=== PATIENT | female | born 1945 | race Caucasian/White ===

== ENCOUNTER → 2017-07-07 10:46 | Outpatient (CLI) | payer MEDICARE, SELFPAY ==
--- NOTE | 2017-07-07 11:10 | MRI_ITS ---
STUDY: MRI BRAIN WITHOUT CONTRAST REASON FOR EXAM: Female, 72 years old. TIA. Patient has headache. TECHNIQUE: Standardized multiplanar fat and water weighted pulse sequences were obtained. COMPARISON: Prior comparison studies are not available for review at this time. FINDINGS: There is mild cerebral atrophy with widening of the extra-axial spaces and ventricular dilatation. There are a limited number of small white matter hyperintensities, distributed throughout the deep white matter tracts of the cerebral hemispheres, consistent with mild chronic white matter ischemic changes. There is encephalomalacia within the right frontal lobe with associated abnormal signal within the cortex consistent with gliosis and sequela of old infarct. There is confluent periventricular hyperintensity cloaking the lateral ventricles, consistent with periventricular leukoaraiosis. There is no evidence for recent intracranial ischemia or other cause of cytotoxic edema on diffusion weighted imaging (DWI). Normal T2* images of the brain without demonstrated susceptibility artifact. There is no demonstrated hemosiderin stain. There are prominent perivascular spaces (PVS) involving the basal ganglia. Normal thalami. There is no extra-axial fluid accumulation. Normal flow voids within the major intracranial circulation suggesting patency by spin echo criteria. Normal sella turcica, pituitary gland, infundibular stalk, optic chiasm and hypothalamus. Normal tectal plate and pineal gland. Normal midbrain, parker and medulla. Normal cerebellum. Normal basal cisterns. Normal bilateral temporal bones. Normal bilateral internal auditory canals. There are bilateral ocular lens implants with otherwise normal intraorbital contents. There is mucoperiosteal inflammatory disease of the paranasal sinuses consistent with mild chronic sinusitis. Normal calvarium and skull base. Normal visualized soft tissue structures. Normal visualized upper cervical spine. MRI/Brain without Contrast IMPRESSION: 1. Involutional changes of the brain, as described above. 2. No MR evidence for acute infarct. 3. 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 Electronically Signed: Sun Garcia MD at 8:27 EST , Service support ,
--- NOTE | 2017-07-07 11:10 | MRI_ITS ---
STUDY: MRA OF THE HEAD WITHOUT CONTRAST REASON FOR EXAM: Female, 72 years old. TIA, headaches. TECHNIQUE: 3-D esrq-rj-[id number] (TOF) imaging was performed with MIPs. The study was performed unenhanced. COMPARISON: None. FINDINGS: Normal bilateral petrous carotid arteries. Normal right cavernous carotid artery with a normal supraclinoid bifurcation. Normal left cavernous carotid artery with a normal supraclinoid bifurcation. Normal right A1 segments of the anterior cerebral artery. Normal left A1 segments of the anterior cerebral artery. Normal intact anterior communicating artery (ACOM). Normal bilateral A2 segments of the anterior cerebral arteries. Normal right M1 and M2 segments of the middle cerebral arteries, with a normal M1 bifurcation. Normal left M1 and M2 segments of the middle cerebral arteries, with a normal M1 bifurcation. Normal right posterior communicating artery (PCOM). There is non-visualization of the left posterior communicating artery (PCOM). Normal bilateral vertebral arteries. Normal basilar artery with a normal basilar bifurcation. The visualized bilateral superior cerebellar (SCA) arteries are normal. Normal bilateral P1, P2 and visualized P3 segments of the posterior cerebral arteries. There is no demonstrated aneurysm of the [place]. There is no major vessel occlusion or hemodynamically significant stenosis. There is no demonstrated abnormality of the visualized brain. MRI/MRA Head ONLY without Contrast IMPRESSION: No evidence of significant steno-occlusive disease or aneurysm. Electronically Signed: Bg Pulido DO at 21:22 EST , Service support ,
== END ==
PROVIDERS: Family Provider Family Medicine; PCP Family Medicine; Visit Provider Psychiatry & Neurology Neurology
DX: Z86.73 Personal history of transient ischemic attack (TIA), and cerebral infarction without residual deficits (principal)
CPT/HCPCS: 70544; 70551

== ENCOUNTER → 2017-07-11 07:47 | Outpatient (CLI) | payer MEDICARE, SELFPAY ==
--- NOTE | 2017-07-11 07:56 | CDU_ITS ---
Reason For Study: TIA Rt. Velocities/BP Lt. Velocities/BP Prox CCA 59/12 cm/sec. Prox CCA 83/14 cm/sec. Mid CCA 52/14 cm/sec. Mid CCA 80/21 cm/sec. Dist CCA 62/15 cm/sec. Dist CCA 64/17 cm/sec. Prox ICA 70/22 cm/sec. Prox ICA 59/16 cm/sec. Mid ICA 80/29 cm/sec. Mid ICA 63/21 cm/sec. Dist ICA 75/23 cm/sec. Dist ICA 86/29 cm/sec. Rt. ICA/CCA = 1.53. Lt. ICA/CCA = 1.07. Prox ECA 113/17 cm/sec. Prox ECA 80/15 cm/sec. Rt. Vert. 56/16 cm/sec. Lt. Vert. 44/13 cm/sec. Right Extracranial There is intimal thickening but no significant atherosclerotic plaque noted in the right common carotid artery. There is heterogeneous, irregular atherosclerotic plaque noted in the right internal carotid artery. There is no significant atherosclerotic plaque noted in the right external carotid artery. Antegrade flow is noted in the right vertebral artery. Left Extracranial There is intimal thickening but no significant atherosclerotic plaque noted in the left common carotid artery. There is no significant atherosclerotic plaque noted in the left internal carotid artery. There is no significant atherosclerotic plaque noted in the left external carotid artery. Antegrade flow is noted in the left vertebral artery. Procedure Carotid Duplex [id number]. Exam performed in department. Interpretation Summary Mild (<50%) stenosis right extracranial internal carotid. No significant atherosclerotic plaque or stenosis noted in the left internal carotid artery. Flow within the vertebral arteries is antegrade bilaterally. Ordering Physician: Robin Morrell Referring Physician: Tami Chang Performed By: Felicia Harp, RDCS, RVT
--- NOTE | 2017-07-11 07:57 | ECHOCS_ITS ---
Reason For Study: TIA Procedure This was a 2D Doppler, Color Flow transthoracic echocardiogram. The study was technically difficult. Exam performed in department. Left Ventricle Normal LV size. Left ventricular systolic function is normal. The estimated ejection fraction is 65 %. No regional wall motion abnormalities noted. Right Ventricle Normal RV size. Normal systolic function. Atria Normal left atrium. Normal right atrium. Mitral Valve Normal mitral valve. Tricuspid Valve Normal tricuspid valve. Aortic Valve The aortic valve is not well visualized. Pulmonic Valve The pulmonic valve is not well visualized. Great Vessels Normal aortic root. The pulmonary artery is normal size. Normal inferior vena cava. Pericardium/Pleural No pericardial effusion. Medication 22 gauge I.V. with prn adaptor inserted into right arm. Diluted definity 3ml given slow IV push to enhance endocardial definition. Performed a rapid injection of agitated mix of 9 cc saline and 1cc air to assess for atrial septal defect. MMode/2D Measurements & Calculations LVIDd: 4.0 cm IVSd: 1.1 cm LVOT diam: 2.0 cm LVIDs: 2.7 cm LVPWd: 1.2 cm LVOT area: 3.0 cm2 RVDd: 3.0 cm FS: 31.8 % Ao root diam: 2.6 cm LAV(MOD-bp): 46.3 ml LA dimension: 3.1 cm LAV(MOD-bp) Indexed: 25.0 ml/m2 LA A4 area: 19.5 cm2 LAV(MOD-sp2): 35.3 ml LAV(MOD-sp4): 57.3 ml Time Measurements MV dec time: 0.20 sec Doppler Measurements & Calculations MV E max roshan: 74.5 cm/sec Lat Peak E' Roshan: 12.5 cm/sec Med Peak E' Roshan: 8.9 cm/sec MV A max roshan: 104.4 cm/sec E/E' lat: 6.0 E/E' med: 8.3 MV E/A: 0.71 MV V2 max: 108.6 cm/sec MV P1/2t max roshan: 79.4 cm/sec Ao V2 max: 126.0 cm/sec MV max P.7 mmHg MV P1/2t: 82.4 msec Ao max P.3 mmHg MV V2 mean: 49.4 cm/sec MV dec slope: 282.3 cm/sec2 Ao V2 mean: 88.1 cm/sec MV mean P.2 mmHg MVA(P1/2t): 2.7 cm2 Ao mean P.4 mmHg MV V2 VTI: 27.9 cm Ao V2 VTI: 30.0 cm MVA(VTI): 2.2 cm2 DANNY(I,D): 2.0 cm2 DANNY(V,D): 2.1 cm2 LV V1 max: 87.2 cm/sec SV(LVOT): 60.8 ml PA V2 max: 71.0 cm/sec LV V1 max P.0 mmHg LV V1 mean P.3 mmHg LV V1 mean: 50.5 cm/sec LV V1 VTI: 20.2 cm TR max roshan: 244.2 cm/sec TR max P.8 mmHg Interpretation Summary Normal LV size. Left ventricular systolic function is normal. The estimated ejection fraction is 65 %. No regional wall motion abnormalities noted. Structurally normal valves. Contrast injection was performed. Ordering Physician: Robin Morrell Referring Physician: Robin Morrell Performed By: Cristopher Quiñones RCS
== END ==
PROVIDERS: Family Provider Family Medicine; PCP Family Medicine; Visit Provider Psychiatry & Neurology Neurology
DX: Z86.73 Personal history of transient ischemic attack (TIA), and cerebral infarction without residual deficits (principal)
CPT/HCPCS: 93225; 93226; 93306; 93880; Q9957; A4216; C8929

== ENCOUNTER 2017-07-15 20:07 | Emergency (ER) | payer MEDICARE, SELFPAY ==
[2017-07-15 20:08] VITALS: BP 159/86; PULSE 102; RESP 16; TEMP 36.6; O2SAT 98; BMI 34.2
--- NOTE | 2017-07-15 20:13 | ED.RN ---
NO OLD EKG'S IN MUSE
[2017-07-15 20:14] VITALS: BP 161/79; PULSE 99; RESP 16; O2SAT 97
--- NOTE | 2017-07-15 20:33 | EKG12_ITS ---
Test Reason : CP Blood Pressure : / mmHG Vent. Rate : 095 BPM Atrial Rate : 095 BPM P-R Int : 130 ms QRS Dur : 092 ms QT Int : 376 ms P-R-T Axes : 041 049 036 degrees QTc Int : 472 ms Normal sinus rhythm Nonspecific ST segment abnormality Confirmed by LASHAY YOUNG, CHRISTIANO ([id number]), news editor JONATHAN LOZANO ([id number]) on 07/18/2017 1:13:39 PM Referred By: LAWSON Confirmed By:CHRISTIANO METZ MD
[2017-07-15 20:34] VITALS: O2SAT 97
--- NOTE | 2017-07-15 20:37 | RAD_ITS ---
STUDY: X-RAY CHEST REASON FOR EXAM: Female, 72 years old. Chest pain TECHNIQUE: Single AP portable view of the chest. COMPARISON: None. FINDINGS: The lungs are clear and expanded. There is no demonstrated pleural abnormality. Normal size heart. Normal mediastinum and maurice. Normal visualized pulmonary arteries. There is atherosclerotic calcification of the aortic arch with tortuosity. There are diffuse degenerative changes of the visualized thoracic spine. Normal visualized ribs, clavicles, and shoulders. There is no demonstrated abnormality of the visualized soft tissue structures of the upper abdomen. RAD/Chest 1 View (Portable) IMPRESSION: No acute cardiopulmonary findings. Electronically Signed: Ludmila Beasley MD at 21:19 EST , Service support ,
[2017-07-15 20:47] LABS: Absolute Lymphocyte Count 2.13 X10^3/ul (0.83-4.51); Absolute Neutrophil Count 3.2 X10^3/uL (2.0-7.7); Basophil# 0.02 X10^3/uL; Basophil% 0.3 % (0-1); Eosinophil# 0.12 X10^3/uL; Hematocrit 38.5 % (37-47); Lymphocyte # 2.13 X10^3/ul (4.0); Lymphocyte % 36.2 % (19-41); Mean Corp Hgb Conc 33.8 g/gl (32-36); Mean Corpuscular Hgb 29.5 pg (27.0-32.0); Mean Corpuscular Volume 87.5 fL (81-99); Mean Platelet Vol. 9.6 fl (6.2-12.0); Monocyte# 0.37 X10^3/uL; Monocyte% 6.3 % (0-10); Neutrophil # 3.22 X10^3/uL (2.7-7.7); Neutrophil % 54.9 % (47-70); Platelet Count 268 K/mm3 (150-450); RBC Distribution Width CV 15.4 % (11.6-14.6); RBC Distribution Width SD 49.3 fl (35.1-43.9); White Blood Count 5.9 K/mm3 (4.4-11.0)
[2017-07-15 20:48] LABS: POSITIVE COUNT NO; POSITIVE DIFFERENTIAL NO; POSITIVE MORPHOLOGY NO
[2017-07-15] MEDS: Aspirin 81 MG TAB.CHEW 324 MG PO (20:56)
[2017-07-15] MEDS: 0.9% Normal Saline 1,000 ML 150 ML IV (20:56)
[2017-07-15 21:03] LABS: Anion Gap 9 (5-15); BUN 11 mg/dL (7-18); Calcium,Total 8.5 mg/dL (8.5-10.1); Chloride 94 mmol/L (98-107); Creatinine, Serum 0.85 mg/dL (0.55-1.02); EST Glomerular Filtration Rate 70 mL/min (>60); Est Glom Filt Rate - Afr Amer 85 mL/min (>60); Estimated Creatinine Clearance 47.32 ml/min; Glucose 125 mg/dL (74-106); Potassium 3.2 mmol/L (3.5-5.1); Sodium Level 130 mmol/L (136-145)
--- NOTE | 2017-07-15 21:29 | ED.DCSUM_ITS ---
- ER Visit Summary Date of Service: 07/15/17 Chief Complaint: Cough and fever History of Present Illness: The patient is a [address] Chang. She reports that she has had a nonproductive cough for the past 2 days. She has had a temperature to 100.5?. She has a sore throat that is 1 out of 10 severity. Patient also reports that she has had continuous chest tightness for the past 2 days. It is 2 out of 10 at worst and 1 out of 10 currently. Is worsened by breathing. Is unchanged with exertion. Is relieved by nothing. She reports that she felt lightheaded at home and took her blood pressure and found it was elevated to 223/100. Physical Examination: Vitals: Stable. Afebrile. General: Well-nourished and well-developed. Head: Normocephalic atraumatic. Neck: Supple, no lymphadenopathy. No JVD. Nontender. Cardiovascular: Regular rate and rhythm. No murmurs. Respiratory: No respiratory distress. Clear to auscultation bilaterally. Abdominal: Soft, nontender, nondistended, normal bowel sounds. No guarding, rebound, or peritoneal signs. Back: Nontender. Extremities: Nontender, no edema. Skin: Normal color, no rash. Neurologic: Alert and oriented ?3. Cranial nerves II through XII are intact. Normal strength and sensation. Psych: Normal affect. Test Results: Chest x-ray is normal. EKG is sinus at [address] changes. There is no old EKG for comparison. Troponin is less than 0.02. Chem -7 is more for sodium 130, potassium 3.2, chloride 94, glucose 125. The patient is on hydrochlorothiazide. CBC is normal. Emergency Department Course and Treatment: Patient is resting comfortably and without complaint. Treatment Plan: She will be discharged instructions follow-up Dr. Taveras in 1 week if not improving. Return to the emergency department for any worsening symptoms. Disposition: To home in improved and stable condition. Impression: 1. URI. 2. Atypical chest pain. This note was generated with [employer] software. It may contain incorrect words, spelling, and punctuation that were not noted in review of the chart prior to signing ED Disposition - Plan for ED Patient: Disposition: Home or Assisted Living Chief Complaint: Chest Pain Instructions: ED Upper Resp Infec No Abx Tx Prescriptions: Benzonatate [Tessalon Perle] 200 mg PO TID PRN PRN #20 capsule PRN Reason: Cough Referrals: Tami Chang MD [Primary Care Provider] - 3-5 Days
[2017-07-15] MEDS: Benzonatate 100 MG Capsule 200 MG PO (21:40)
[2017-07-15 21:42] VITALS: BP 146/76
== END 2017-07-15 21:43 | disposition home or self-care (01) ==
LOC: ED 20:40
PROVIDERS: Emergency Provider Emergency Medicine; Family Provider Family Medicine; PCP Family Medicine
DX: J06.9 Acute upper respiratory infection, unspecified (principal); R07.89 Other chest pain; I10 Essential (primary) hypertension; Z86.73 Personal history of transient ischemic attack (TIA), and cerebral infarction without residual deficits; Z79.899 Other long term (current) drug therapy
CPT/HCPCS: 71045; 80048; 84484; 85025; 93005; 96360; 99285; J7030; A4216

== ENCOUNTER → 2017-08-01 10:41 | Outpatient (CLI) | payer MEDICARE, SELFPAY ==
[2017-08-01 12:37] LABS: Anion Gap 11 (5-15); BUN 11 mg/dL (7-18); BUN/Creat Ratio 11.7 RATIO (10-20); Calcium,Total 8.8 mg/dL (8.5-10.1); Chloride 98 mmol/L (98-107); Creatinine, Serum 0.94 mg/dL (0.55-1.02); EST Glomerular Filtration Rate 62 mL/min (>60); Est Glom Filt Rate - Afr Amer 75 mL/min (>60); Glucose 117 mg/dL (74-106); Potassium 3.5 mmol/L (3.5-5.1); Sodium Level 132 mmol/L (136-145)
[2017-08-01 15:27] LABS: Uric Acid 4.9 mg/dL (2.6-6.0)
== END ==
PROVIDERS: Family Provider Family Medicine; PCP Family Medicine; Visit Provider Family Medicine
DX: E87.6 Hypokalemia (principal)
CPT/HCPCS: 36415; 80048; 84550

== ENCOUNTER → 2017-08-03 09:01 | Outpatient (CLI) | payer MEDICARE, SELFPAY ==
[2017-08-03 10:24] LABS: Absolute Lymphocyte Count 1.38 X10^3/ul (0.83-4.51); Basophil# 0.04 X10^3/uL; Basophil% 0.6 % (0-1); Eosinophil# 0.08 X10^3/uL; Eosinophils% 1.2 % (0-5); Hematocrit 37.2 % (37-47); Hemoglobin 12.8 g/dl (12.0-15.0); Lymphocyte # 1.38 X10^3/ul (4.0); Mean Corp Hgb Conc 34.4 g/gl (32-36); Mean Corpuscular Hgb 30.2 pg (27.0-32.0); Mean Corpuscular Volume 87.7 fL (81-99); Monocyte# 0.44 X10^3/uL; Monocyte% 6.4 % (0-10); Neutrophil # 4.95 X10^3/uL (2.7-7.7); Neutrophil % 71.7 % (47-70); Platelet Count 353 K/mm3 (150-450); RBC Distribution Width CV 15.1 % (11.6-14.6); RBC Distribution Width SD 48.2 fl (35.1-43.9); Red Blood Count 4.24 M/mm3 (4.2-5.4); White Blood Count 6.9 K/mm3 (4.4-11.0)
[2017-08-03 10:33] LABS: POSITIVE COUNT NO; POSITIVE DIFFERENTIAL NO; POSITIVE MORPHOLOGY NO
[2017-08-03 16:04] LABS: Erythrocyte Sedimentation Rate 15 mm/hr (0-30)
== END ==
PROVIDERS: Family Provider Family Medicine; PCP Family Medicine; Visit Provider Ophthalmology
DX: R51 Headache (principal)
CPT/HCPCS: 36415; 85025; 85652; 86140

== ENCOUNTER → 2017-08-10 16:49 | Outpatient (CLI) | payer MEDICARE, SELFPAY ==
[2017-08-12 16:10] LABS: Cytoplasmic Ab (C-ANCA) <1:20 titer (Neg:<1:20)
[2017-08-13 12:56] LABS: Perinuclear Ab (P-ANCA) <1:20 titer (Neg:<1:20)
== END ==
PROVIDERS: Family Provider Family Medicine; PCP Family Medicine; Visit Provider Psychiatry & Neurology Neurology
DX: G44.011 Episodic cluster headache, intractable (principal); I63.9 Cerebral infarction, unspecified
CPT/HCPCS: 36415; 86038; 86256

== ENCOUNTER → 2017-11-23 14:33 | Outpatient (CLI) | payer MEDICARE, SELFPAY ==
--- NOTE | 2017-11-23 14:35 | BI_ITS ---
MAMMOGRAPHY - BILATERAL SCREENING REASON FOR EXAM: Female, 72 years old. Routine annual screening examination. PERTINENT HISTORY: Personal history of breast cancer. Prior left lumpectomy and radiation treatment. TECHNIQUE: Digital bilateral breast todd (3D mammographic acquisition) in the CC and MLO projections. 2-D mediolateral oblique (MLO) and craniocaudad (CC) views of both breasts were obtained. CAD: Full Field Digital Mammography with Computer Added Detection was performed. COMPARISON: Comparison is made with prior study dated November 23, 2016 and November 20, 2015. FINDINGS: Breast Composition: There are scattered areas of fibroglandular density. There are no dominant masses or suspicious calcifications. Once again, the patient is status post lumpectomy in the deep slightly lateral aspect of the left breast with resultant postoperative scarring and architectural distortion. This is unchanged. No other significant abnormalities are identified. There has been no significant change since the prior study. BI/SCREENING MAMM (CAD), BILAT IMPRESSION: Stable bilateral screening mammogram. Yearly follow-up mammogram recommended. (A) ASSESSMENT CATEGORY: BIRADS Category 2: Benign. A letter regarding these results will be sent to the patient by the facility within 30 days. Approximately 10% of breast cancers are not detected by mammography. A normal mammogram should not delay biopsy of a clinically suspicious abnormality. [id number] Electronically Signed: Juan Lagunas MD at 15:18 EDT Tel [phone], Service support ,
== END ==
PROVIDERS: Family Provider Family Medicine; PCP Family Medicine; Visit Provider Family Medicine
DX: Z12.31 Encounter for screening mammogram for malignant neoplasm of breast (principal)
CPT/HCPCS: 77063; 77067

== ENCOUNTER → 2018-01-10 13:04 | Outpatient (CLI) | payer MEDICARE, SELFPAY ==
--- NOTE | 2018-01-10 13:10 | RAD_ITS ---
STUDY: X-RAY - LEFT ANKLE REASON FOR EXAM: Female, 72 years old. Pain. TECHNIQUE: 3 view(s) of the ankle. COMPARISON: None. FINDINGS: There are mild degenerative changes of the mid and hindfoot. There is a plantar calcaneal enthesophyte present. No suspicious bony lesions are seen. The soft tissue structures are unremarkable. RAD/Ankle min 3 Views IMPRESSION: Mild degenerative changes. Electronically Signed: Usha Garcia MD at 23:42 EDT Tel , Service support ,
[2018-01-10 14:18] LABS: Erythrocyte Sedimentation Rate 13 mm/hr (0-30)
[2018-01-10 14:22] LABS: Absolute Lymphocyte Count 1.84 X10^3/ul (0.83-4.51); Absolute Neutrophil Count 4.7 X10^3/uL (2.0-7.7); Basophil# 0.05 X10^3/uL; Basophil% 0.7 % (0-1); Eosinophil# 0.09 X10^3/uL; Eosinophils% 1.3 % (0-5); Hematocrit 38.9 % (37-47); Hemoglobin 13.2 g/dl (12.0-15.0); Lymphocyte # 1.84 X10^3/ul (4.0); Lymphocyte % 25.8 % (19-41); Mean Corp Hgb Conc 33.9 g/gl (32-36); Mean Corpuscular Hgb 30.1 pg (27.0-32.0); Mean Corpuscular Volume 88.6 fL (81-99); Mean Platelet Vol. 10.5 fl (6.2-12.0); Monocyte# 0.48 X10^3/uL; Monocyte% 6.7 % (0-10); Neutrophil # 4.66 X10^3/uL (2.7-7.7); Neutrophil % 65.4 % (47-70); Platelet Count 318 K/mm3 (150-450); RBC Distribution Width CV 15.3 % (11.6-14.6); Red Blood Count 4.39 M/mm3 (4.2-5.4); White Blood Count 7.1 K/mm3 (4.4-11.0)
[2018-01-10 14:24] LABS: POSITIVE COUNT NO; POSITIVE DIFFERENTIAL NO; POSITIVE MORPHOLOGY NO
[2018-01-10 14:49] LABS: CRP 2.96 mg/L (0.0-3.0); Rheumatoid Factor < 10.0 IU/mL (<15); Uric Acid 5.6 mg/dL (2.6-6.0)
[2018-01-11 15:48] LABS: ANTINUCLEAR ANTIBODIES DIRECT Negative (Negative)
== END ==
PROVIDERS: Family Provider Family Medicine; PCP Family Medicine; Visit Provider Family Medicine
DX: M25.572 Pain in left ankle and joints of left foot (principal)
CPT/HCPCS: 73610; 84550; 85025; 85652; 86038; 86140; 86431

== ENCOUNTER → 2018-02-20 12:18 | Outpatient (CLI) | payer MEDICARE, SELFPAY ==
--- NOTE | 2018-02-20 12:21 | RAD_ITS ---
STUDY: X-RAY CHEST REASON FOR EXAM: Female, 72 years old. Chest pain TECHNIQUE: Frontal and lateral views of the chest. COMPARISON: July 15, 2017. FINDINGS: The lungs are clear and expanded. There is no demonstrated pleural abnormality. Normal size heart. Aortic calcifications. Nonspecific elevation right hemidiaphragm. Multilevel degenerative changes. There is degenerative osteoarthritis of the bilateral shoulders. There is no demonstrated abnormality of the visualized soft tissue structures of the upper abdomen. RAD/Chest PA and Lateral IMPRESSION: Degenerative changes, as described above. No demonstrated acute cardiopulmonary process. Electronically Signed: Young Farias, at 4:48 EDT Tel , Service support ,
== END ==
PROVIDERS: Family Provider Family Medicine; PCP Family Medicine; Visit Provider Family Medicine
DX: R07.9 Chest pain, unspecified (principal)
CPT/HCPCS: 71046

== ENCOUNTER → 2018-06-07 13:50 | Outpatient (CLI) | payer BC, SELFPAY | PROVIDERS: Family Provider Family Medicine; PCP Family Medicine; Visit Provider Family Medicine | DX: Z53.9 Procedure and treatment not carried out, unspecified reason (principal) ==

== ENCOUNTER → 2018-06-30 10:17 | Outpatient (CLI) | payer MEDICARE, SELFPAY ==
[2018-06-30 12:42] LABS: AST(SGOT) 12 U/L (15-37); Alanine Aminotransfer ALT/SGPT 21 U/L (13-56); Anion Gap 11 (5-15); BUN 15 mg/dL (7-18); BUN/Creat Ratio 17.3 RATIO (10-20); Calcium,Total 8.9 mg/dL (8.5-10.1); Chloride 101 mmol/L (98-107); Cholesterol 164 mg/dL (200); Creatinine, Serum 0.86 mg/dL (0.55-1.02); EST Glomerular Filtration Rate 68 mL/min (>60); Est Glom Filt Rate - Afr Amer 83 mL/min (>60); Glucose 95 mg/dL (74-106); High Density Lipoprotein 64 mg/dL; Potassium 3.9 mmol/L (3.5-5.1); Sodium Level 138 mmol/L (136-145); T4 Total, Thyroxin 8.6 ug/dL (4.8-13.9); Thyroid Stim Hormone (TSH) 0.69 uIU/mL (0.358-3.74); Triglycerides 153 mg/dL; Very Low Density Lipoprotein 31 mg/dL (5-40)
== END ==
PROVIDERS: Family Provider Family Medicine; PCP Family Medicine; Visit Provider Family Medicine
DX: E03.9 Hypothyroidism, unspecified (principal); E78.5 Hyperlipidemia, unspecified; I10 Essential (primary) hypertension
CPT/HCPCS: 36415; 80048; 80061; 84436; 84443; 84450; 84460

== ENCOUNTER → 2018-07-31 16:57 | Outpatient (CLI) | payer MEDICARE, SELFPAY ==
[2017-12-12 10:09] VITALS: BMI 34.2
[2018-07-31 17:58] LABS: Absolute Lymphocyte Count 2.07 X10^3/ul (0.83-4.51); Absolute Neutrophil Count 6.4 X10^3/uL (2.0-7.7); Basophil# 0.04 X10^3/uL; Basophil% 0.4 % (0-1); Eosinophil# 0.04 X10^3/uL; Eosinophils% 0.4 % (0-5); Hematocrit 39.6 % (37-47); Hemoglobin 13.4 g/dl (12.0-15.0); Lymphocyte # 2.07 X10^3/ul (4.0); Lymphocyte % 22.9 % (19-41); Mean Corp Hgb Conc 33.8 g/gl (32-36); Mean Corpuscular Hgb 29.8 pg (27.0-32.0); Mean Corpuscular Volume 88.2 fL (81-99); Mean Platelet Vol. 10.3 fl (6.2-12.0); Monocyte# 0.51 X10^3/uL; Monocyte% 5.6 % (0-10); Neutrophil # 6.36 X10^3/uL (2.7-7.7); Neutrophil % 70.5 % (47-70); Platelet Count 363 K/mm3 (150-450); RBC Distribution Width CV 14.9 % (11.6-14.6); RBC Distribution Width SD 47.5 fl (35.1-43.9); Red Blood Count 4.49 M/mm3 (4.2-5.4)
[2018-07-31 18:12] LABS: POSITIVE COUNT NO; POSITIVE DIFFERENTIAL NO; POSITIVE MORPHOLOGY NO
[2018-07-31 18:21] LABS: AST(SGOT) 14 U/L (15-37); Alanine Aminotransfer ALT/SGPT 21 U/L (13-56); Albumin, Serum 3.9 g/dL (3.2-5.0); Alkaline Phosphatase 69 U/L (45-117); Amylase 32 U/L (25-115); Bilirubin, Direct 0.24 mg/dL (0.00-0.30); Globulin 3.6 g/dL (2.2-4.2); Lipase 78 U/L (73-393); Protein, Total 7.5 g/dL (6.4-8.2)
== END ==
PROVIDERS: Family Provider Family Medicine; PCP Family Medicine; Referring Provider Family Medicine; Visit Provider Family Medicine
DX: R10.9 Unspecified abdominal pain (principal)
CPT/HCPCS: 36415; 80076; 82150; 83690; 85025

== ENCOUNTER → 2018-08-03 07:48 | Outpatient (CLI) | payer MEDICARE, SELFPAY ==
--- NOTE | 2018-08-03 08:16 | US_ITS ---
STUDY: ABDOMINAL ULTRASOUND - RIGHT UPPER QUADRANT REASON FOR VISIT: Female, 73 years old. Abdominal pain TECHNIQUE: Ultrasound evaluation of the right upper quadrant was performed with real-time and static sterling-scale imaging. TECHNICAL QUALITY: Limited. Examination limited by bowel gas. COMPARISON: None. FINDINGS: Liver: The liver measures 15 cm. There is increased echogenicity consistent with fatty infiltration. The bile ducts are within normal limits. There is hepatic color flow. The direction of portal flow is hepatopetal. There is no demonstrated mass lesion. Gallbladder: Normal distended gallbladder. The gallbladder wall measures 2 mm. There is a negative sonographic Bright's sign. There is no pericholecystic fluid. There are no gallstones. Common Bile Duct (C.B.D.): The common bile duct measures 4 mm. Pancreas: Normal size of the head, body and tail of the pancreas. There is normal echogenicity of the pancreas. There is no demonstrated pancreatic mass or cyst. Right Kidney: Normal size of the right kidney. The right kidney measures 9.6 cm. Normal renal cortex. The right cortex measures 1.7 cm. There is no demonstrated renal mass or cyst. There is no right hydronephrosis. US/Abdomen Limited IMPRESSION: No acute abnormality. Fatty liver. Electronically Signed: Preston Ricks MD at 17:21 EST , Service support ,
== END ==
PROVIDERS: Family Provider Family Medicine; PCP Family Medicine; Referring Provider Family Medicine; Visit Provider Family Medicine
DX: R10.9 Unspecified abdominal pain (principal)
CPT/HCPCS: 76705

== ENCOUNTER → 2018-08-11 09:52 | Outpatient (CLI) | payer MEDICARE, SELFPAY ==
--- NOTE | 2018-08-11 09:56 | CDU_ITS ---
Reason For Study: RETINAL ARTERY OCCLUSION Rt. Velocities/BP Lt. Velocities/BP Prox CCA 76/15 cm/sec. Prox CCA 73/12 cm/sec. Mid CCA 65/14 cm/sec. Mid CCA 81/14 cm/sec. Dist CCA 75/17 cm/sec. Dist CCA 76/20 cm/sec. Prox ICA 86/25 cm/sec. Prox ICA 46/11 cm/sec. Mid ICA 75/24 cm/sec. Mid ICA 47/14 cm/sec. Dist ICA 70/22 cm/sec. Dist ICA 48/16 cm/sec. Rt. ICA/CCA = 1.3. Lt. ICA/CCA = .6. Prox ECA 96/18 cm/sec. Prox ECA 63/12 cm/sec. Rt. Vert. 50/13 cm/sec. Lt. Vert. 39/9 cm/sec. Right Extracranial There is intimal thickening but no significant atherosclerotic plaque noted in the right common carotid artery. There is heterogeneous, irregular atherosclerotic plaque noted in the right internal carotid artery. There is intimal thickening but no significant atherosclerotic plaque noted in the right external carotid artery. Antegrade flow is noted in the right vertebral artery. Left Extracranial There is intimal thickening but no significant atherosclerotic plaque noted in the left common carotid artery. There is no significant atherosclerotic plaque noted in the left internal carotid artery. There is no significant atherosclerotic plaque noted in the left external carotid artery. Antegrade flow is noted in the left vertebral artery. Procedure Carotid Duplex [id number]. Exam performed in department. Interpretation Summary Mild (<50%) stenosis right extracranial internal carotid. Mild (<50%) stenosis left extracranial internal carotid. Flow within the vertebral arteries is antegrade bilaterally. Ordering Physician: Bjorn Referring Physician: MIKA REILLY Performed By: Lisa Rogers, IVETTECS, RVT
== END ==
PROVIDERS: Family Provider Family Medicine; PCP Family Medicine; Referring Provider Ophthalmology; Visit Provider Ophthalmology
DX: H34.211 Partial retinal artery occlusion, right eye (principal); I65.29 Occlusion and stenosis of unspecified carotid artery
CPT/HCPCS: 93880

== ENCOUNTER → 2018-12-05 | Outpatient (CLI) | payer MEDICARE, SELFPAY ==
--- NOTE | 2018-12-05 16:17 | BI_ITS ---
MAMMOGRAPHY - BILATERAL SCREENING REASON FOR EXAM: Female, 73 years old. Routine annual screening examination. PERTINENT HISTORY: Personal history of breast cancer. Prior left lumpectomy with radiation treatment. TECHNIQUE: Digital bilateral breast navneet (3D mammographic acquisition) in the CC and MLO projections. 2-D mediolateral oblique (MLO) and craniocaudad (CC) views of both breasts were obtained. CAD: Full Field Digital Mammography with Computer Added Detection was performed. COMPARISON: Comparison is made with prior examination dated November 23, 2017 and November 23, 2016. FINDINGS: Breast Composition: There are scattered areas of fibroglandular density. There are no dominant masses or suspicious calcifications. The patient is status post lumpectomy in the deep central portion of the left breast with resultant architectural distortion and postoperative scarring. Linear bilateral calcifications suggestive of vascular calcification versus secretory calcifications. No other significant abnormalities are identified. There has been no significant change since the prior study. BI/SCREEN MAMM (CAD) W/NAVNEET BILAT IMPRESSION: Stable bilateral screening mammogram. Yearly follow-up mammogram recommended. (A) ASSESSMENT CATEGORY: BIRADS Category 2: Benign. A letter regarding these results will be sent to the patient by the facility within 30 days. Approximately 10% of breast cancers are not detected by mammography. A normal mammogram should not delay biopsy of a clinically suspicious abnormality. [id number] Electronically Signed: Juan Lagunas, at 9:39 EDT , Service support ,
== END | disposition home or self-care (01) ==
LOC: OPBI 16:15
PROVIDERS: Family Provider Family Medicine; PCP Family Medicine; Referring Provider Family Medicine; Visit Provider Family Medicine
DX: Z12.31 Encounter for screening mammogram for malignant neoplasm of breast (principal)
CPT/HCPCS: 77063; 77067

== ENCOUNTER → 2018-12-25 15:06 | Outpatient (CLI) | payer MEDICARE, SELFPAY ==
[2017-12-12 10:09] VITALS: BMI 34.2
[2018-12-25 17:37] LABS: Prothrombin Time (Protime)PT. 13.4 SECONDS (11.7-14.9)
[2018-12-25 17:38] LABS: Partial Thromboplast Time 26.9 Seconds (24.1-36.2)
[2018-12-25 17:41] LABS: Platelet Count 393 K/mm3 (150-450)
[2018-12-28 15:01] LABS: Thrombin Time 19.2 sec (0.0-23.0)
== END ==
PROVIDERS: Family Provider Family Medicine; PCP Family Medicine; Visit Provider Nurse Practitioner Adult Health
DX: T14.8XXA Other injury of unspecified body region, initial encounter (principal)
CPT/HCPCS: 36415; 85049; 85610; 85670; 85730

== ENCOUNTER → 2019-07-17 11:57 | Outpatient (CLI) | payer MEDICARE, SELFPAY ==
[2019-01-09 12:59] VITALS: BMI 34.2
[2019-07-17 14:04] LABS: AST(SGOT) 12 U/L (15-37); Alanine Aminotransfer ALT/SGPT 22 U/L (13-56); Anion Gap 7 (5-15); BUN 14 mg/dL (7-18); BUN/Creat Ratio 18.5 RATIO (10-20); Chloride 95 mmol/L (98-107); Cholesterol 171 mg/dL (200); Creatinine, Serum 0.76 mg/dL (0.55-1.02); EST Glomerular Filtration Rate 79 mL/min (>60); Est Glom Filt Rate - Afr Amer 96 mL/min (>60); Glucose 87 mg/dL (74-106); High Density Lipoprotein 75 mg/dL; Potassium 3.8 mmol/L (3.5-5.1); Sodium Level 128 mmol/L (136-145); T4 Total, Thyroxin 8.7 ug/dL (4.8-13.9); Thyroid Stim Hormone (TSH) 3.68 uIU/mL (0.358-3.74); Triglycerides 119 mg/dL; Very Low Density Lipoprotein 24 mg/dL (5-40)
== END ==
PROVIDERS: PCP Family Medicine; Visit Provider Family Medicine
DX: I10 Essential (primary) hypertension (principal); E03.9 Hypothyroidism, unspecified; G45.9 Transient cerebral ischemic attack, unspecified
CPT/HCPCS: 36415; 80048; 80061; 84436; 84443; 84450; 84460

== ENCOUNTER → 2019-08-01 11:16 | Outpatient (CLI) | payer MEDICARE, SELFPAY ==
[2019-01-09 12:59] VITALS: BMI 34.2
[2019-08-01 14:18] LABS: Anion Gap 5 (5-15); BUN 14 mg/dL (7-18); BUN/Creat Ratio 18.7 RATIO (10-20); Calcium,Total 8.9 mg/dL (8.5-10.1); Chloride 95 mmol/L (98-107); Creatinine, Serum 0.75 mg/dL (0.55-1.02); EST Glomerular Filtration Rate 81 mL/min (>60); Est Glom Filt Rate - Afr Amer 97 mL/min (>60); Glucose 88 mg/dL (74-106); Potassium 3.7 mmol/L (3.5-5.1); Sodium Level 130 mmol/L (136-145)
== END ==
PROVIDERS: PCP Family Medicine; Referring Provider Family Medicine; Visit Provider Family Medicine
DX: I10 Essential (primary) hypertension (principal)
CPT/HCPCS: 36415; 80048

== ENCOUNTER → 2019-08-23 11:53 | Outpatient (CLI) | payer MEDICARE, SELFPAY ==
[2019-08-23 11:41] VITALS: BMI 34.2
--- NOTE | 2019-08-23 11:54 | RAD_ITS ---
STUDY: X-RAY CHEST REASON FOR EXAM: Female, 74 years old. COUGH, CONGESTION X 3 WKS, HAD A FEVER 3 WKS AGO FOR 3 DAYS, COUGH REMAINING TECHNIQUE: PA and lateral views of the chest. COMPARISON: Comparison is made with prior study dated February 20, 2018. FINDINGS: The lungs are clear and expanded. Scattered calcified granulomas. There is no demonstrated pleural abnormality. Normal size heart. Normal mediastinum and maurice. Normal visualized pulmonary arteries. There is atherosclerotic calcification of the aortic arch with tortuosity. There are degenerative changes of the visualized thoracic spine. Normal visualized ribs, clavicles, and shoulders. There is no demonstrated abnormality of the visualized soft tissue structures of the upper abdomen. RAD/Chest PA and Lateral IMPRESSION: No acute abnormality is seen. Electronically Signed: Juan Lagunas, at 12:56 EDT , Service support ,
== END ==
PROVIDERS: PCP Family Medicine; Referring Provider Physician Assistant; Visit Provider Physician Assistant
DX: R05 Cough (principal)
CPT/HCPCS: 71046

== ENCOUNTER → 2019-11-07 09:32 | Outpatient (CLI) | payer MEDICARE, SELFPAY ==
[2019-08-23 12:05] VITALS: BMI 34.2
[2019-11-07 11:15] LABS: Albumin, Serum 3.6 g/dL (3.2-5.0); BUN 12 mg/dL (7-18); BUN/Creat Ratio 16.6 RATIO (10-20); Calcium,Total 8.7 mg/dL (8.5-10.1); Chloride 104 mmol/L (98-107); Creatinine, Serum 0.72 mg/dL (0.55-1.02); EST Glomerular Filtration Rate 84 mL/min (>60); Est Glom Filt Rate - Afr Amer 101 mL/min (>60); Glucose 92 mg/dL (74-106); Phosphorus 3.7 mg/dL (2.5-4.9); Potassium 4.1 mmol/L (3.5-5.1); Sodium Level 136 mmol/L (136-145)
== END ==
LOC: MTLAB 09:33
PROVIDERS: PCP Family Medicine; Referring Provider Internal Medicine Nephrology; Visit Provider Internal Medicine Nephrology
DX: E87.1 Hypo-osmolality and hyponatremia (principal)
CPT/HCPCS: 36415; 80069

== ENCOUNTER → 2019-11-12 09:12 | Outpatient (CLI) | payer MEDICARE, SELFPAY ==
[2019-08-23 12:05] VITALS: BMI 34.2
--- NOTE | 2019-11-12 09:30 | MRI_ITS ---
STUDY: MRI LUMBAR SPINE WITH AND WITHOUT CONTRAST REASON FOR EXAM: Female, 74 years old. radiculopathy rt leg, prev lumbar surgery TECHNIQUE: Standardized fat and water weighted pulse sequences were obtained in the sagittal and axial planes. IV 13CC DOTAREM was administered for the contrast portion of the examination. COMPARISON: July 15, 2014 FINDINGS: Slightly exaggerated lumbar lordosis. No significant scoliosis. Conus medullaris terminates normally at the L1 level. No acute fracture. No dislocation. No bone destruction. T11 hemangioma. Paraspinal muscle atrophy. Surgical scar. Normal aorta. Small right renal cyst. Postsurgical changes at the L4 and L5 levels on the left. No abnormal/unexpected contrast enhancement. T12-L1: Moderate endplate spondylosis. Disc bulge with mild central canal narrowing. Normal bilateral facet joints. Normal bilateral lateral recesses. Normal bilateral intervertebral neural foramina. L1-2: Mild endplate spondylosis. Bilobed disc bulge with mild central canal narrowing. Facet joint arthrosis. Normal bilateral lateral recesses. Neural foraminal narrowing without impingement. L2-3: Mild endplate spondylosis. Central disc protrusion with mild central canal narrowing. Facet degenerative arthrosis. Normal bilateral lateral recesses. Neural foraminal narrowing without impingement. L3-4: Mild endplate spondylosis. Large right paracentral caudal disc extrusion with moderate central canal narrowing. Herniated disc material measures approximately 21 mm x 13 mm x 16 mm (axial image 12 series 5 and sagittal image 9 series 2). Facet joint arthrosis/bone graft. Bilateral lateral recess narrowing with impingement (right greater than left). Bilateral neural foraminal narrowing with impingement. Minimal grade 1 spondylolisthesis. L4-5: Postsurgical endplate changes. Disc desiccation. Facet joint arthrosis/bone graft. Normal central canal and bilateral lateral recesses. Bilateral neural foraminal narrowing without impingement. L5-S1: Minimal endplate spondylosis. Shallow disc bulge. Facet joint arthrosis/bone graft. Normal central canal and bilateral lateral recesses. Bilateral neural foraminal narrowing with contact of the left exiting nerve root. MRI/Spine Lumbar W/WO Contrast IMPRESSION: No abnormal/unexpected contrast enhancement Multilevel intervertebral disc disease with large right paracentral caudal disc extrusion at L3-4 Multilevel central canal narrowing most severe at L3-4 Bilateral lateral recess narrowing at L3-4 with impingement of the bilateral descending L4 nerve roots (right greater than left) Multilevel neural foraminal narrowing with impingement of the bilateral L3 and left L5 nerve roots Minimal grade 1 spondylolisthesis at L3-4 with exaggerated lordosis Uncomplicated postsurgical changes with moderate lumbar spine osteoarthritis Electronically Signed: Cristóbal Joe DO at 8:38 EDT Tel , Service support ,
== END ==
PROVIDERS: PCP Family Medicine; Referring Provider Nurse Practitioner; Visit Provider Nurse Practitioner
DX: M54.16 Radiculopathy, lumbar region (principal)
CPT/HCPCS: 72158; A9575

== ENCOUNTER 2019-11-13 15:25 | Emergency (ER) | payer MEDICARE, SELFPAY ==
[2019-08-23 12:05] VITALS: BMI 34.2
[2019-11-13 15:25] VITALS: BP 143/61; PULSE 80; PULSE 92; RESP 18; TEMP 36.6; O2SAT 98; BMI 28.2
--- NOTE | 2019-11-13 15:53 | ED.VIS.GEN ---
History of Present Illness Chief Complaint: Back Informant: Patient Onset: Days Context: Gradual Onset Timing: Continuous Current Severity: Moderate Maximum Severity: Severe Narrative: The patient is a 74-year-old female with medical history significant for hypertension, chronic kidney disease, and prior lumbar surgery who presents to the emergency department with increasing low back pain with radiation to her right posterior leg to the knee. Patient did have L4-L5 decompression fusion about 4 years ago. This was done by Dr. Kiran Garcia through the [facility]. She states about 6 weeks ago, she began to have some worsening pain. She has been through physical therapy, steroid treatment, and had MRI done yesterday. They prescribed her tramadol, but she states it has not helped her pain. She has been taking extra strength Tylenol which will seem to dull the pain to where she can walk short distance. She denies any trouble urinating or moving her bowels. She denies any weakness of the legs. She denies any falls. Prior similar symptoms: Yes Recent Illness/Hospitalization: No Past Medical History - Allergies and Home Meds Allergies/Adverse Reactions: Allergies shellfish derived Allergy (Severe, Verified 08/23/19 11:42) Unknown Primary Care Physician: Tami Chang MD [Primary Care Provider] - Prior records reviewed: Yes Past Medical History: - - CKD, hypertension Surgical History: - - Prior back surgery Smoking Status: Never smoker Review of Systems General: Denies: Chills, Fever, Sweats Eyes: Denies: Visual changes - bilaterally, Diplopia ENT: Denies: Rhinorrhea, Sore throat Cardiovascular: Denies: Chest pain, Palpitations Respiratory: Denies: Dyspnea, Cough, Dyspnea on exertion Gastrointestinal: Denies: Abdominal pain, Nausea, Vomiting, Diarrhea, Melena, Hematochezia Genitourinary: Denies: Dysuria, Hematuria, Frequency Musculoskeletal: Reports: Back pain. Denies: Extremity Pain Skin: Denies: Rash, Wounds Neurological: Denies: Headache, Weakness, Numbness Physical Exam Vital Signs/Narrative: Vital Signs Temp Pulse Resp BP Pulse Ox 11/13/19 15:25 97.8 F 80 18 143/61 H 98 Inital Vital Signs reviewed: Yes General: Well nourished, Well developed, No Acute Distress Head: Normocephalic, Atraumatic Eyes: Perrl, EOMI ENT: Moist mucous membranes, No rhinorrhea Neck: Supple, Nontender Cardiovascular: Regular rate, Regular rhythm, No murmurs Respiratory: No distress, CTA bilaterally, Chest nontender Abdomen: Soft, Nontender, Nondistended, Normal bowel sounds Back: Nontender, Normal Inspection Extremities: Nontender, No edema Skin: Normal color, No rash Neurological: Alert, Oriented x3, Cranial nerves II-XII grossly intact, Normal Strength, Normal Sensation Psychological: Normal affect, Normal Mood Diagnostic/Tx/Re-eval - Medical Decision Making The patient presents with increasing low back pain. I was able to review her MRI. She has no red flag symptoms. It is mostly pain. Patient was given IV analgesics. She is now markedly improved. She is not going to be able to be seen until next week. Her major issue is pain control. I will write her for 7 days of analgesics at least until she can follow-up. She is comfortable with this plan of care. Impression 1. Acute lumbar radiculopathy ED Disposition - Plan for ED Patient: Instructions: ED LUMBAR RADICULOPATHY Prescriptions: Oxycodone [Oxyir] 5 mg PO Q8H PRN 7 Days #21 tab PRN Reason: Pain Score 4-5/10 Prescription Printed Referrals: Tami Chang MD [Primary Care Provider] -
[2019-11-13] MEDS: Morphine 4 MG/ML Syringe IV (15:59)
[2019-11-13] MEDS: Ondansetron 4 MG/2 ML Vial IV (15:59)
[2019-11-13 17:06] VITALS: BP 166/72; PULSE 66; RESP 14; O2SAT 99
== END 2019-11-13 17:07 | disposition home or self-care (01) ==
PROVIDERS: Emergency Provider Emergency Medicine; PCP Family Medicine
DX: M54.16 Radiculopathy, lumbar region (principal)
CPT/HCPCS: 96361; 96374; 96375; 99283; J7040; A4216; J2405

== ENCOUNTER → 2019-11-21 15:16 | Outpatient (CLI) | payer MEDICARE, SELFPAY ==
[2019-11-13 15:25] VITALS: BMI 28.2
[2019-11-21 18:18] LABS: Basophil# 0.07 X10^3/uL; Eosinophil# 0.11 X10^3/uL; Eosinophils% 1.6 % (0-5); Hematocrit 38.4 % (37-47); Hemoglobin 12.5 g/dL (12.0-15.0); Lymphocyte % 30.8 % (19-41); Mean Corp Hgb Conc 32.6 g/dL (32-36); Mean Corpuscular Volume 95.3 fL (81-99); Monocyte% 7.3 % (0-10); NRBC Flagged by Analyzer 0 % (0-5); Neutrophil # 4.02 X10^3/uL (2.7-7.7); Neutrophil % 59.2 % (47-70); Platelet Count 377 K/mm3 (150-450); RBC Distribution Width CV 15.8 % (11.6-14.6); RBC Distribution Width SD 54.6 fl (35.1-43.9); Red Blood Count 4.03 M/mm3 (4.2-5.4); White Blood Count 6.8 K/mm3 (4.4-11.0)
[2019-11-21 18:40] LABS: Anion Gap 8 (5-15); BUN 10 mg/dL (7-18); BUN/Creat Ratio 16.1 RATIO (10-20); Calcium,Total 8.8 mg/dL (8.5-10.1); Chloride 101 mmol/L (98-107); Creatinine, Serum 0.62 mg/dL (0.55-1.02); EST Glomerular Filtration Rate 99 mL/min (>60); Est Glom Filt Rate - Afr Amer 120 mL/min (>60); Glucose 95 mg/dL (74-106); Potassium 3.4 mmol/L (3.5-5.1); Sodium Level 135 mmol/L (136-145)
[2019-11-22 07:48] LABS: SARS-COV-2 TOTAL ABS Nonreactive (Nonreactive)
== END ==
PROVIDERS: PCP Family Medicine; Visit Provider Family Medicine
DX: Z11.59 Encounter for screening for other viral diseases (principal); M51.26 Other intervertebral disc displacement, lumbar region
CPT/HCPCS: 80048; 85025; 86769; G2023

== ENCOUNTER → 2019-12-28 10:01 | Outpatient (CLI) | payer MEDICARE, SELFPAY ==
--- NOTE | 2019-12-28 10:07 | BI_ITS ---
MAMMOGRAPHY - BILATERAL SCREENING 3-D TOMOSYNTHESIS REASON FOR EXAM: Female, 74 years old. Routine screening PERTINENT HISTORY: BILAT SCREENING - PERSONAL HX @ AGE 67 WITH LT LUMPECTOMY AND RE-EXCISION FOR CLEAR MARGINS - RADIATION AND ESTROGEN INHIBITOR USED - FAM HX OF MATERNAL COUSIN @ AGE 50''S -. TECHNIQUE: 2-D mammograms and 3-D Tomosynthesis of the breast (s) were performed. CAD was performed. COMPARISON: 12/05/2018 FINDINGS: The breast composition is composed of scattered fibroglandular density. Scattered benign calcifications are seen. No dense spiculated masses or suspicious microcalcifications are identified. Stable architectural distortion in the left breast from previous surgery. There is no skin thickening or retraction. There has been no significant change since the prior study. BI/SCREEN MAMM (CAD) W/NAVNEET BILAT IMPRESSION: No mammographic signs of malignancy. Routine yearly mammograms recommended. ASSESSMENT CATEGORY: BIRADS Category 2: Benign. A letter regarding these results will be sent to the patient by the facility within 30 days. FOLLOW UP RECOMMENDATION: Yearly follow up mammogram recommended. (A) Approximately 10% of breast cancers are not detected by mammography. A normal mammogram should not delay biopsy of a clinically suspicious abnormality. Electronically Signed: Nicolas Richmond MD at 12:21 EDT , Service support ,
== END ==
PROVIDERS: PCP Family Medicine; Referring Provider Family Medicine; Visit Provider Family Medicine
DX: Z12.31 Encounter for screening mammogram for malignant neoplasm of breast (principal)
CPT/HCPCS: 77063; 77067

== ENCOUNTER 2020-02-14 12:00 | Outpatient (RCR) | payer MEDICARE, SELFPAY ==
[2019-08-23 12:05] VITALS: BMI 34.2
--- NOTE | 2019-11-06 15:49 | HP.PTEVAL ---
Patient's Visit Information ARIEL BISHOP is a 74 year old F referred to Physical Therapy by ANOOP MarquisC with a diagnosis of R L/S radiculopathy adn spondylolisthesis. Date of Evaluation: 11/06/19 Physical Therapist: Cristóbal Galvan, DPT, OCS, CSCS - Visit Plan Frequency: 3x /Week Duration: 2-4 Weeks Plan: 3x/week for 4 weeks for... 1. Neutral spine focus posture and body mechanics. 2. LB flexion mobs and stretches and progression of ROM exercises. 3. core and NS strength progressing to I home program. 4. STM to upper legs and ES with MH as needed for pain. - Subjective Had L45 fusion 4 yrs ago. Now thinks L3 is messed up. Got pain down back of R LE and back 4-5 weeks ago after doing some gardening on her kneeler adn was sore but got worse over the weeks. Had no problem prior to that but no causing incident. X ray shows fusion still looks good. Problem is R lateral leg pain. Relief being off feet. Walking hurts quickly from bedroom to kitchen then gives her stabbing pain. Feels OK in the recliner.Standing from the recliner is easy as it is electric. Pain does not keep her up at night if she takes tylenol and ambien. Has not been able to walk far over last couple months, 100 yards at most. has to do grocery shopping due to this. Spends day lying in recliner or bed. Would be working in yard alot more. Stays at home alot. Basic ADLs are getting done. Intermittent numbness R lower leg - Pain R LB and leg Pain Intensity (Out of 10): 1 Pain Intensity Range: 0, 8 Comment: worse walking, 0 lying down - Objective Walks with R antalgia and slightly hunched . Transfers I. Worse pain as she walks further. Uses cane to help with back pain , does not like walker but has wh walker(it is too bulky). AROM L/s ext max limited., flexion is limited segmentally in lumbar but not painful. SB are not painful but stiff. R quad and HS are weak myotomally at 3+ vs 4- L. Hip flexion 4- B, abd and ext 3+ B. Ankle tests are symmetrical at 4/5. reflexes 2/3 patella and achilles. Sensation LE seems at deficit to gross light touch in anterior lateral leg and into front of foot on R. - Goals Goal 1:: Pain with walking 1/10 at worst adn manageable. Goal Time Frame: 4-6 Weeks Goal 2:: Pt feel 75% improved in ability to get around with less pain Goal Time Frame: 4-6 Weeks Goal 3:: I approp EHp to minimize future problems Goal Time Frame: 4-6 Weeks Goal 4:: Pt to resume grocery shopping Goal Time Frame: 4-6 Weeks Goal 5:: Less than 25% disability on oswestry Goal Time Frame: 4-6 Weeks - Rehabilitation Potential Physical Therapy Diagnosis: Degenerative changes in ow back causing mobility deficits. Rehabilitation Potential: Fair - Anticipated Interventions Patient/Client Instruction: Educate patient on: Condition, Plan of Care For the Purpose of:: To decrease pain, To increase ROM, To improve muscle performance and motor function, To increase tolerance to activity/condition/position, To improve ability of physical actions for home/community/work/leisure, To improve gait and locomotor functions Therapeutic Exercise to Include: Strength training, Postural training, Flexibilty training, Gait and locomotor training, Neuromotor development, Passive ROM, Active ROM For the Purpose of:: To decrease pain, To increase ROM, To improve muscle performance and motor function, To increase tolerance to activity/condition/position Manual Therapy Techniques to Include: Mobilization, Passive ROM, Soft tissue mobilization For the Purpose of:: To decrease pain, To increase ROM, To improve muscle performance and motor function TENS: Yes Thermo therapy (hot pack): Yes For the Purpose of:: To decrease pain Thank you for the opportunity to evaluate your patient. For Medicare and Medicare HMO plans, please review the plan of care and approve it. It will need to be FAXED BACK to us at [phone] for Medicare purposes. For Medicare only, by signing this I certify the plan of care. Please let me know if there are questions or concerns regarding this plan of care. Physician Signature: Date:
--- NOTE | 2019-12-20 14:14 | HP.PTREVAL ---
Lexii Berman, CATALYST OPERATOR CHIEF-C, It has been my pleasure to treat ARIEL BISHOP over the last 3 visits for R L/S radiculopathy adn spondylolisthesis. Please see the progress note below for an update on the physical therapy plan of care! Subjective: 11/30/19 had surgery discectomy on L3-4 and foraminotomy/laminectomy. Now I feel better but R leg is weak adn baalnce is no good(wasn't prior to surgery). Has had no pain since getting out of surgery. R quad can hurt with walking long distances of >100 yards. No exercises at home yet. Sleeps well with meds. No bending is her main precaution. Crosses legs to tie shoe. Doing much better with home ativities and can stand at counter adn cook a little bit. Has not taken a bath yet. Showers without help in walk in shower. Balance adn leg strength is what she needs. Objective/Function: Walking up taller and without pain today. bACK EXT ADN FLEXION MOD LIMITED AND PAINFREE TODAY. SB STIFF AND STRETCHY. Walking appears pretty normal, steps are reciprocal with some weakness R quad present adn needs rail for that leg. strength R quad 4- and others 4/5 in LE. R hip flexor also 4- but no pain. reflexes 2/3 patella and achilles. Sensation LE WNL to gross light touch. OVERALL PATIENT MUCH BETTER WITH PAIN THAN LAST VISIT DUE TO SURGERY,S TIFFNESS IN BACK AND WEAKNESS IN R LE PERSISTS. BALANCE NOT BAD FOR AGE BUT FEELS LESS STEADY. APPROPRIATE FOR CONTINUED PT PER POC WITH FAIR PROGNOSIS Plan Plan: 2X/WEEK FOR 2-4 WEEKS FOR. 1. LB ROM PROGRESSION EXERCISES TO HEP. 2. LE STRENGTH PROGRESSION TO HEP Goals Goal 1:: Pain with walking 1/10 at worst adn manageable. Goal Time Frame: 4-6 Weeks Goal Progress: Goal Met Goal 2:: Pt feel 75% improved in ability to get around with less pain Goal Time Frame: 4-6 Weeks Goal Progress: Goal Met Goal 3:: I approp EHp to minimize future problems Goal Time Frame: 4-6 Weeks Goal Progress: Progressing Goal 4:: Pt to resume grocery shopping Goal Time Frame: 4-6 Weeks Goal Progress: APPROP Goal 5:: Less than 25% disability on oswestry Goal Time Frame: 4-6 Weeks Goal Progress: APPROP Goal 6:: PT FEEL 95% BACK TO ELIER ACTIVITY WITHOUT INCREASED PAIN. Goal Time Frame: 6-8 Weeks Goal Progress: new goal Anticipated Interventions Patient/Client Instruction: Educate patient on: Condition, Plan of Care For the Purpose of:: To decrease pain, To increase ROM, To improve muscle performance and motor function, To increase tolerance to activity/condition/position, To improve ability of physical actions for home/community/work/leisure, To improve gait and locomotor functions Therapeutic Exercise to Include: Strength training, Postural training, Flexibilty training, Gait and locomotor training, Neuromotor development, Passive ROM, Active ROM For the Purpose of:: To decrease pain, To increase ROM, To improve muscle performance and motor function, To increase tolerance to activity/condition/position Manual Therapy Techniques to Include: Mobilization, Passive ROM, Soft tissue mobilization For the Purpose of:: To decrease pain, To increase ROM, To improve muscle performance and motor function TENS: Yes Thermo therapy (hot pack): Yes For the Purpose of:: To decrease pain Please do not hesitate to contact me at [phone] by phone or if you have questions or concerns regarding this new plan of care! Sincerely, Cristóbal Galvan, DPT, OCS, CSCS
--- NOTE | 2020-02-01 10:45 | HP.PTREVAL ---
Lexii Berman, DOCUMENTATION SPECIALIST-C, It has been my pleasure to treat ARIEL BISHOP over the last 7 visits for R L/S radiculopathy adn spondylolisthesis. Please see the progress note below for an update on the physical therapy plan of care! Subjective: Surgical area is hurting more for the last month. Sees doctor on Tuesday due to pain on across low back center L if she has been shopping for a while. Walked this morning for a mile and felt OK with minmal pain. Pushing cart shopping is worse to 6/10. Will have to ice and it helps. Feels stiff also especially sitting in camp chair at [employer]. Sleep is OK with sleep aid. Activities pretty normal but needs rest at times. Exercises at home done every morning. No leg symptoms. Can't sit in one place too long. Hard to bend over to do cat litter. Objective/Function: Gait is normal, steps are reciprocal with one rail but R leg weaker(improved descending over last session). Exits chair with some hesitancy with forward weight shift but strong enough to get up. Balance is good. LB AROM ext and SB are WNL, flexion is not painful but stiff and hesitant. slow. Overall patient has high expectations and is mildly disappointed where she is at but is on target and appropriate for her rehab. Would like to see more aggressive ex habits for patient as she just wants to get back to life. Plan Plan: Pt to see doctor next week and to call after visit, options are for patient to continue current HEP adn slow progress OR increase frequency to PT and aggressiveness of stretching adn strengthening ROM depending on doctors desires. I think she is doing well and will do OK with home ex but her expectations are high for her age and further PT might help get her there quicker if she is willing. Goals Goal 1:: Pain with walking 1/10 at worst adn manageable. Goal Time Frame: 4-6 Weeks Goal Progress: Goal Met Goal 2:: Pt feel 75% improved in ability to get around with less pain Goal Time Frame: 4-6 Weeks Goal Progress: Goal Met Goal 3:: I approp EHp to minimize future problems Goal Time Frame: 4-6 Weeks Goal Progress: minimal Goal 4:: Pt to resume grocery shopping Goal Time Frame: 4-6 Weeks Goal Progress: Goal Met Goal 5:: Less than 25% disability on oswestry Goal Time Frame: 4-6 Weeks Goal Progress: Progressing Goal 6:: PT FEEL 95% BACK TO ELIER ACTIVITY WITHOUT INCREASED PAIN. Goal Time Frame: 6-8 Weeks Goal Progress: Not Progressing Anticipated Interventions Patient/Client Instruction: Educate patient on: Condition, Plan of Care For the Purpose of:: To decrease pain, To increase ROM, To improve muscle performance and motor function, To increase tolerance to activity/condition/position, To improve ability of physical actions for home/community/work/leisure, To improve gait and locomotor functions Therapeutic Exercise to Include: Strength training, Postural training, Flexibilty training, Gait and locomotor training, Neuromotor development, Passive ROM, Active ROM For the Purpose of:: To decrease pain, To increase ROM, To improve muscle performance and motor function, To increase tolerance to activity/condition/position Manual Therapy Techniques to Include: Mobilization, Passive ROM, Soft tissue mobilization For the Purpose of:: To decrease pain, To increase ROM, To improve muscle performance and motor function TENS: Yes Thermo therapy (hot pack): Yes For the Purpose of:: To decrease pain Please do not hesitate to contact me at [phone] by phone or if you have questions or concerns regarding this new plan of care! Sincerely, Cristóbal Galvan, DPT, OCS, CSCS
--- NOTE | 2020-02-14 12:45 | HP.PTDCSUM ---
It has been my pleasure to treat ARIEL BISHOP referred by Lexii Berman NP-C, with the diagnosis of R L/S radiculopathy adn spondylolisthesis for a total of 8 visit(s). Discharge Date: 02/14/20 Please see the following information for a summary of their discharge status. Subjective: Saw PA. Doing really well for this time frame. Expecting too much. Only wanted one more therapy visit. Has been focussing on stooping more adn bending ess. Getting out of soft recliner is still painful. Doing exercises of flexiona dn ROM at home. HEP loosens her up. Pain this week has been stabbing getting out of chair trasniently. Bending holding on to counter is OK to vegetable picker Cats dish. Dressing self is fine. Sleeping well. walking a mile with no problem. Shopping can be painful for 45 min to 60 minutes. R LB and leg Pain Intensity (Out of 10): 0 % Improvement: 85 Objective/Function: Walks and trasnfers well although needs min A to get up from 18 inch box. No pain. Balance is good. LB aROM ext mod limited and painful 2/10 trasniently, flexion hesitant but painfree, SB min limited adn not painful. Overall doing well and wants to be done with PT and continue walking, stretching via HEP. Goal 1:: Pain with walking 1/10 at worst adn manageable. Goal Progress: Goal Met Goal 2:: Pt feel 75% improved in ability to get around with less pain Goal Progress: Goal Met Goal 3:: I approp EHp to minimize future problems Goal Progress: minimal Goal 4:: Pt to resume grocery shopping Goal Progress: Goal Met Goal 5:: Less than 25% disability on oswestry Goal Progress: Progressing Goal 6:: PT FEEL 95% BACK TO ELIER ACTIVITY WITHOUT INCREASED PAIN. Goal Progress: 85% Plan: d/c at pat request. If there are questions or concerns regarding this patient's physical therapy, please feel free to call me at [phone]. Thank you for the referral of this patient. Sincerely, Cristóbal Galvan, DPT, OCS, CSCS
== END 2020-02-14 19:00 | disposition home or self-care (01) ==
LOC: PT 12:00
PROVIDERS: PCP Family Medicine; Referring Provider Nurse Practitioner; Visit Provider Nurse Practitioner
DX: M54.16 Radiculopathy, lumbar region (principal); M43.17 Spondylolisthesis, lumbosacral region; Z48.89 Encounter for other specified surgical aftercare
CPT/HCPCS: 97110; 97140; 97162; 97164; 97530

== ENCOUNTER → 2020-05-06 13:23 | Outpatient (CLI) | payer MEDICARE, SELFPAY ==
[2020-05-06 16:35] LABS: Anion Gap 6 (5-15); BUN 12 mg/dL (7-18); BUN/Creat Ratio 14.2 RATIO (10-20); Calcium,Total 8.9 mg/dL (8.5-10.1); Chloride 104 mmol/L (98-107); Creatinine, Serum 0.84 mg/dL (0.55-1.02); EST Glomerular Filtration Rate 70 mL/min (>60); Est Glom Filt Rate - Afr Amer 84 mL/min (>60); Glucose 88 mg/dL (74-106); Potassium 3.8 mmol/L (3.5-5.1); Sodium Level 138 mmol/L (136-145)
== END ==
PROVIDERS: PCP Family Medicine; Referring Provider Internal Medicine Nephrology; Visit Provider Internal Medicine Nephrology
DX: E87.1 Hypo-osmolality and hyponatremia (principal)
CPT/HCPCS: 36415; 80048

== ENCOUNTER → 2020-07-08 09:00 | Outpatient (CLI) | payer MEDICARE, SELFPAY ==
--- NOTE | 2020-07-08 09:06 | US_ITS ---
STUDY: ABDOMINAL ULTRASOUND REASON FOR EXAM: Female, 75 years old. Abdomen pain TECHNIQUE: Transabdominal ultrasound was performed with real-time and static sterling scale imaging. TECHNICAL QUALITY: Adequate. COMPARISON: Comparison is made with prior study dated 08/03/2018. FINDINGS: Liver: The liver measures 12.4 cm. There is a heterogeneous echogenicity of the liver. The bile ducts are within normal limits. There is hepatic color flow. The direction of portal flow is hepatopetal. There is an 8mm by 8mm by 8 mm cyst in the left lobe. There is a 2.7 cm x 3.2 cm x 2.6 cm hypoechoic solid nodule in the right lobe of the liver. This is in the dome of the liver. Gallbladder: Normal distended gallbladder. The gallbladder wall measures 2 mm. There is a negative sonographic Bright''s sign. There is no pericholecystic fluid. There are no gallstones. Common Bile Duct (C.B.D.): The common bile duct measures 4.9 mm. Pancreas: Normal size of the head, body and tail of the pancreas. There is normal echogenicity of the pancreas. There is no demonstrated pancreatic mass or cyst. Spleen: Normal size of the spleen. The spleen measures 8.1 cm x 4.1 cm x 3.4 cm. Right Kidney: Normal size of the right kidney. The right kidney measures 8.9 cm x 4.5 cm x 4.8 cm. Normal renal cortex. The right cortex measures 1.7 cm. There is no demonstrated renal mass or cyst. There is no right hydronephrosis. Left Kidney: Normal size of the left kidney. The left kidney measures 9.5 cm x 4.2 cm x 5.4 cm. Normal renal cortex. The left cortex measures 1.9 cm. There is no demonstrated renal mass or cyst. There is no left hydronephrosis. Aorta: Unremarkable I.V.C.: The IVC is patent. There is no ascites. US/Abdomen Complete IMPRESSION: 2.7 cm x 3.2 cm x 2.6 cm hypoechoic solid nodule in the right lobe of the liver in the region of the dome of the liver. Small cyst in the left lobe of the liver. Electronically Signed: Juan Lagunas MD at 11:07 EST , Service support ,
== END ==
PROVIDERS: PCP Family Medicine; Referring Provider Family Medicine; Visit Provider Family Medicine
DX: R10.9 Unspecified abdominal pain (principal)
CPT/HCPCS: 76700

== ENCOUNTER 2020-07-30 10:10 | Outpatient (RCR) | payer MEDICARE, SELFPAY | END 2020-07-30 23:59 | LOC: IMMUN 10:10 | PROVIDERS: PCP Family Medicine; Visit Provider Family Medicine | DX: Z23 Encounter for immunization (principal) | CPT/HCPCS: 0011A; 0012A ==

== ENCOUNTER 2020-09-29 09:56 | Day surgery (SDC) | payer MEDICARE, SELFPAY ==
[2020-08-07 12:15] VITALS: BMI 29.2
[2020-09-29] VITALS (8 sets, daily range): BP systolic 138–172; BP diastolic 68–120; PULSE 62–69; RESP 14–16; TEMP 36.2–36.7; O2SAT 98–100; BMI 29.2
[2020-09-29] MEDS: Lactated Ringers 1,000 ML 100 ML IV (11:00)
--- NOTE | 2020-09-29 11:50 | OP.PCM_ITS ---
Problem List (1) Vascular catheter fitting or adjustment Status: Acute Report of Operation Date of Procedure: 09/29/20 Pre-Operative Diagnosis: Vascular fitting and adjustment Post-Operative Diagnosis: Same Surgery/Procedure Performed:: Right internal jugular Port-A-Cath placement Type of Anesthesia:: General Anesthesiologist: Naveen Ren Specimen's removed: None Drains: None Estimated Blood Loss (mL): < 25 cc Description of Procedure: Patient was brought into the operating room. Placed in the supine position. Under excellent MAC anesthetic patient was placed in the headdown position ultrasound of the neck revealed the internal jugular vein quite easily. I marked the neck and chest appropriately. Neck and chest were then sterilely prepped and draped in usual fashion. Local was injected into the neck. Seldinger's technique was used to gain access to the right internal jugular vein without difficulty. Guidewire was placed over the needle the needle was removed fluoroscopy confirmed the guidewire to be in good placement. I injected local o n the chest. Incision was made. Electrocautery was used to create a pocket for the port. Skin jaleel was made. Dilator and sheath were placed over the guidewire removing the dilator and guidewire single-lumen catheter was placed in the sheath the sheath was removed. Fluoroscopy was used to confirm proper length. I tunneled from the pocket created over the collarbone into the neck and brought the catheter down. Cut the catheter appropriately placed the locking hub on the catheter the port onto the catheter and secured the 2 with a locking hub. It flushed and irrigated well and was flushed with 4 cc of Hepflush. The port was then sutured into the pocket with 2 sutures of 2-0 Prolene. Skin incisions were closed with subcuticular stitches of 3-0 Vicryl. Then 4-0 Monocryl. Dermabond was applied sterile dressings were applied and the patient tolerated the procedure well. Portable chest x-ray was ordered Grafts/Implants Used: [employer] PowerPort reference [id number], lot number [id number] - Admit VTE Documentation VTE Present on Admission: No VTE Mechan Device Prophylaxis: SCD's VTE Pharm Prophylaxis ordered?: No Reason prophylaxis not ordered:: Treatment Not Indicated
--- NOTE | 2020-09-29 11:51 | DCINST_ITS ---
Discharge Diet: No Restrictions - Pain medication may cause nausea. You should typically eat light foods as you take your pain medication. Discharge Activity: May Shower - with the bandage in place 1-2 days after surgery. DO NOT SHOWER WHEN YOUR PORT IS ACCESSED. Additional Activity Instructions:: May not drive, work with heavy equipment, or sign legal documents for [address] if you are no longer taking narcotic pain medications. You may drive when you are no longer taking pain medications. Additional Dressing/Incision Instructions:: Leave the bandage on for 2-3 days. When you remove the bandage, leave the steri-strips intact until they fall off. Allergies/Adverse Reactions: Allergies shellfish derived Allergy (Severe, Verified 09/29/20 10:27) Unknown Medications to take at Discharge clopidogrel 75 mg tablet 75 mg PO ONCE 06/16/17 fluoxetine 40 mg capsule 40 mg PO QDAY 06/16/17 levothyroxine 125 mcg tablet 125 mcg PO DAILY 30 Days #30 06/16/17 simvastatin 10 mg tablet 10 mg PO QPM 06/16/17 zolpidem 10 mg tablet 10 mg PO QHS 30 Days #30 06/16/17 Liothyronine Sodium [Cytomel] 5 mcg PO DAILY 07/15/17 Esomeprazole Magnesium [Nexium] 20 mg PO DAILY 09/25/20 Lisinopril [Zestril] 20 mg PO DAILY 09/25/20 Oxycodone HCl/Acetaminophen [Percocet 5/325] 1 - 2 tablet PO Q4H PRN PRN 5 Days #30 tablet 09/29/20 The following prescriptions were given: Oxycodone HCl/Acetaminophen [Percocet 5/325] 1 - 2 tablet PO Q4H PRN PRN 5 Days #30 tablet PRN Reason: Pain Transmission Status: Sent to [facility] Primary Care Physician: Tami Chang MD [Primary Care Provider] - Test Results: Test results from this visit will be discussed in further detail at your follow- up appointment, if applicable. Please Follow Up With: Raymond Rodriguez MD
[2020-09-29] MEDS: Cefazolin 2 GM in 0.9% Normal Saline 100 ML IV (12:00)
[2020-09-29] MEDS: Lidocaine 1% (30 ml sdv) 30 ML Vial (12:05)
[2020-09-29] MEDS: Bupivacaine Mpf 0.5% 30 ML VIAL (12:05)
--- NOTE | 2020-09-29 12:45 | RAD_ITS ---
STUDY: X-RAY CHEST REASON FOR EXAM: Female, 75 years old. Port placement. TECHNIQUE: Single AP portable view of the chest. COMPARISON: Comparison is made with prior study dated 08/23/2019. FINDINGS: A right-sided Port-A-Cath has been placed. The tip is at the junction of the superior vena cava and right atrium. Mild elevation of the right hemidiaphragm. This is unchanged. The lungs are clear. There is no demonstrated pleural abnormality. Normal size heart. Normal mediastinum and maurice. Normal visualized pulmonary arteries. There is atherosclerotic calcification of the aortic arch with tortuosity. There are degenerative changes of the visualized thoracic spine. Normal visualized ribs, clavicles, and shoulders. There is no demonstrated abnormality of the visualized soft tissue structures of the upper abdomen. RAD/CXR for Line Placement IMPRESSION: The tip of the right armida catheter is at the junction of the superior vena cava and right atrium. Electronically Signed: Juan Lagunas MD at 13:20 EDT , Service support ,
== END 2020-09-29 14:20 | disposition home or self-care (01) ==
LOC: SDC 09:56 → AC 09:57
PROVIDERS: PCP Family Medicine; Referring Provider Surgery; Visit Provider Surgery
PROC: (CPT 36561; principal; 2020-09-29 11:45)
DX: Z45.2 Encounter for adjustment and management of vascular access device (principal); C50.919 Malignant neoplasm of unspecified site of unspecified female breast; C78.7 Secondary malignant neoplasm of liver and intrahepatic bile duct; I10 Essential (primary) hypertension; Z86.73 Personal history of transient ischemic attack (TIA), and cerebral infarction without residual deficits; Z79.899 Other long term (current) drug therapy; Z79.02 Long term (current) use of antithrombotics/antiplatelets; Z87.891 Personal history of nicotine dependence; K21.9 Gastro-esophageal reflux disease without esophagitis; G47.30 Sleep apnea, unspecified
CPT/HCPCS: 00532; 36561; 71045; 77001; J7120; C1788; J2405

== ENCOUNTER → 2021-10-08 | Outpatient (CLI) | payer MEDICARE, SELFPAY ==
--- NOTE | 2021-10-08 10:19 | BD_ITS ---
STUDY: DUAL ENERGY X-RAY ABSORPTIOMETRY / DXA REASON FOR EXAM: Female, 76 years old. 733.90OsteopeniaBONE DENSITY REASON FOR EXAM TECHNIQUE: Bone Mineral Density (BMD) measurements of lumbar spine and bilateral hips were obtained. COMPARISON: Comparison is made with prior study dated 11/20/2015. FINDINGS: Lumbar Spine (L1-L4): g/cm2 (1.094) / T-score (1.0) / Z-score (3.4) Findings are suggestive of normal bone density with a low fracture risk. Left Femur Total: g/cm2 (0.820) / T-score (-1.0) / Z-score (0.9) Left Femoral Neck: g/cm2 (0.642) / T-score (-1.9) / Z-score (0.3) Right Femur Total: g/cm2 (0.794) / T-score (-1.2) / Z-score (0.6) Right Femoral Neck: g/cm2 (0.604) / T-score (-2.2) / Z-score (-0.1) The T-Scores on the most recent prior examination were: Lumbar Spine (L1-L4): There has been worsening of bone density since the previous examination. Left Femur Total: which represents a worsening of 14.3%. Right Femur Total: which represents a worsening of 11.7%. BD/Dexa Bone Density Study IMPRESSION: The patient is considered osteopenic as outlined below according to World [place] Organization (WHO) criteria with a high fracture risk. There has been worsening of bone density since the previous examination. Reference Information: The T-score is the number of standard deviations above or below the standard which is normal for young adults at their peak bone mineral density. The World Health Organization (WHO) interprets the T-scores as follows: Above -1 Normal bone density Between -1 and -2.5 Osteopenia Equal to / or below -2.5 Osteoporosis As a practical clinical guideline, osteopenia may be graded as follows: Mild -1 through -1.5 Moderate -1.6 through -2.0 Severe -2.1 through -2.4 The Z-score is the number of standard deviations above or below age-matched controls. A Z-score of less than -1.5 would be considered abnormal. References: 1. NIH Osteoporosis and Related Bone Diseases www osteo.org 2. International Society for Clinical Densitometry www iscd.org 3. National Osteoporosis Foundation www nof.org Electronically Signed: Juan Lagunas MD at 11:19 EDT ,
== END | disposition home or self-care (01) ==
LOC: OPBD 10:13
PROVIDERS: PCP Family Medicine; Visit Provider Family Medicine
DX: M85.89 Other specified disorders of bone density and structure, multiple sites (principal)
CPT/HCPCS: 77080

== ENCOUNTER → 2022-02-10 | Outpatient (CLI) | payer MEDICARE, SELFPAY ==
[2022-02-10 20:09] LABS: T4 Total, Thyroxin 8.2 ug/dL (4.8-13.9); Thyroid Stim Hormone (TSH) 0.85 uIU/mL (0.358-3.74)
== END | disposition home or self-care (01) ==
LOC: MFPLAB 16:27
PROVIDERS: PCP Family Medicine; Referring Provider Family Medicine; Visit Provider Family Medicine
DX: E03.9 Hypothyroidism, unspecified (principal)
CPT/HCPCS: 36415; 84436; 84443

== ENCOUNTER → 2022-07-12 | Outpatient (CLI) | payer MEDICARE, SELFPAY | END | disposition home or self-care (01) | PROVIDERS: PCP Family Medicine; Visit Provider Family Medicine | DX: N39.0 Urinary tract infection, site not specified (principal) | CPT/HCPCS: 87086; 87088 ==

== ENCOUNTER 2022-12-26 15:51 | Emergency (ER) | payer MEDICARE, SELFPAY ==
[2022-12-26 15:53] VITALS: BP 159/73; PULSE 87; RESP 20; TEMP 36.2; O2SAT 98; BMI 29.1
[2022-12-26 16:28] VITALS: PULSE 74; RESP 17; O2SAT 98
--- NOTE | 2022-12-26 16:28 | EDS_ITS ---
HPI History of Present Illness Chief Complaint: Eye Problem Informant: patient Onset/Context/Timing Location: Left Eye Onset: Today Context: Sudden Onset Timing: Continuous Current Severity: Moderate Maximum Severity: Moderate Associated Symptoms Associated Symptoms - Eyes: Foreign body sensation Narrative Narrative: 77-year-old female sudden onset of foreign body sensation and discomfort in her left eye. She was sitting indoors when this happened. No obvious etiology. Does not wear contacts. No vision changes. Recently underwent chemotherapy for metastatic breast cancer, her eyelashes fell out and have been gradually coming back in. [facility] Medical History Arthritis Back pain 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 History of cancer History of hypertension History of thyroid disease History of TIA (transient ischemic attack) Liver metastasis Neck pain Severe headache Sleep apnea Stomach ulcer Wears dentures Home Medications clopidogrel 75 mg tablet 75 mg PO ONCE 06/16/17 [History Last Taken 09/22/20] fluoxetine 40 mg capsule 40 mg PO QDAY 06/16/17 [History Last Taken Unknown] zolpidem 10 mg tablet 10 mg PO QHS 30 days ##30 06/16/17 [History Last Taken Unknown] liothyronine 5 mcg tablet 5 mcg PO DAILY 07/15/17 [History Last Taken 09/29/20 04:30] esomeprazole magnesium 20 mg capsule,delayed release 20 mg PO DAILY 09/25/20 [History Last Taken Unknown] lisinopril 20 mg tablet 20 mg PO DAILY 09/25/20 [History Last Taken 09/29/20 06:30] cholecalciferol (vitamin D3) 50 mcg (2,000 unit) capsule 50 mcg PO DAILY 06/11/21 [History Last Taken Unknown] levothyroxine 125 mcg tablet 112 mcg PO DAILY 30 days #27 tabs 06/11/21 [History Last Taken Unknown] sennosides 8.6 mg tablet (Senokot) 8.6 mg PO DAILY 06/11/21 [History Last Taken Unknown] hydrocodone-acetaminophen 5-325mg 5mg-325mg ea PO 07/16/22 [History Last Taken Unknown] alprazolam 0.5 mg tablet 0.5 mg PO DAILY PRN 07/21/22 [History Last Taken Unknown] Allergy/AdvReac Type Severity Reaction Status Date / Time shellfish derived Allergy Severe throat Verified 12/26/22 15:53 swelling adhesive tape AdvReac Rash Verified 12/26/22 15:53 petrolatum,white AdvReac Rash Verified 12/26/22 15:53 [From A and D Barrier] Family History (Updated 07/21/22 @ 10:04 by Leona Alfonso) Mother Colon cancer passed from recurrence Thyroid disorder Father Hypertension CVA (cerebral vascular accident) Sister Breast cancer, Onset Age: 87 Aunt Colon cancer paternal Surgical History History of back surgery History of lumpectomy History of thyroid surgery Social History household members: spouse Smoking Status: Former smoker how long ago did patient quit smoking: >50 years ago; off and on for 2 years, socially only alcohol intake: current alcohol intake frequency: 0-2 drinks per day Alcohol type: wine details: socially substance use type: does not use ROS ROS ED Constitutional Constitutional ED: Denies chills or fever(s) Eyes Eyes: Reports as per HPI and eye pain ENT ENT ED: Denies ear pain, rhinorrhea or sore throat Neurologic Neurologic: Denies headache(s), paresthesias or weakness EXAM Physical Exam Const Vital Signs: 12/26/22 15:53 Temperature 97.1 F L Temperature Source Temporal Pulse Rate 87 Respiratory Rate 20 H Blood Pressure 159/73 H Blood Pressure Mean 101 Pulse Ox 98 Oxygen Delivery Method Room Air Positive well nourished and well developed General Appearance ED: well developed and NAD HEENT atraumatic; Negative for tenderness Mouth ED: Yes oral and palatal mucosa normal and Yes lips normal Mouth: oral and palatal mucosa normal and lips normal Eyes PERRL and EOMs intact bilaterally Eyes Narrative: Left eye: Eyelid everted no foreign body seen, inspected profusely and under slit lamp. Dyed with fluorescein dye, there is superficial styles dominik patterned dye uptake on the lower half of the cornea, there is no dendritic pattern. No foreign material. Anterior chamber deep and quiet, no cell or flare seen, and no foreign material seen on conjunctive a. Neuro oriented x3, CN's II-XII intact bilaterally and gait normal Sensorium / Orientation: alert Skin Lesions: no lesions Rashes: no rashes MDM MDM MDM Narrative Medical decision making narrative: I suspect this is a corneal abrasion due to her trying to get out an eyelash from her eye. Some of them are growing in toward the cornea and actually her sitting and fluorescein dye when I stained her. Discussed with Dr. Sharp with ophthalmology who agrees with this, she is given antibiotic ointment and will follow-up as an outpatient. Discharge Plan Triage Chief Complaint: Eye Problem ED Provider: Stefano Chanel Dx/Rx/DC Orders Clinical Impression: Abrasion of left cornea Instructions: ED Corneal Abrasion Prescriptions: No Action zolpidem 10 mg tablet 10 mg PO QHS 30 Days Qty: 30 Patient Comments: TAKE 1 TABLET BY MOUTH AT BEDTIME clopidogrel 75 mg tablet 75 mg PO ONCE fluoxetine 40 mg capsule 40 mg PO QDAY levothyroxine 125 mcg tablet 112 mcg PO DAILY 30 Days Qty: 27 Patient Comments: TAKE 1 TABLET EVERY DAY cholecalciferol (vitamin D3) 50 mcg (2,000 unit) capsule 50 mcg PO DAILY sennosides [Senokot] 8.6 mg tablet 8.6 mg PO DAILY hydrocodone-acetaminophen 5-325 mg tablet PO Patient Comments: TAKE 1-2 TABLETS BY MOUTH EVERY 6 HOURS NEEDED FOR PAIN FOR UP TO 5 DAYS. alprazolam 0.5 mg tablet 0.5 mg PO DAILY PRN liothyronine 5 MCG tablet 5 mcg PO DAILY lisinopril 20 MG tablet 20 mg PO DAILY esomeprazole magnesium 20 MG capsule,delayed release(DR/EC) 20 mg PO DAILY Primary Care Provider: Tami Chang Referrals: Tami Chang MD [Primary Care Provider] - Nemesio Sharp MD [Med Staff - Active Staff] - 2 Days Activity Restrictions/Additional Instructions: Use antibiotic ointment every 6-8 hours, about 3 times per day while awake and/or as needed. Insert on your lower lid, and then blink it in. Disposition Disposition: Home, Self Care
[2022-12-26] MEDS: Fluorescein 1 MG STRIP 1 STRIP LEFT EYE (16:54)
[2022-12-26] MEDS: Neomycin/Bacitracin/Polymyxin Opth. Ointment 1 APPLIC LEFT EYE (16:54)
== END 2022-12-26 16:57 | disposition home or self-care (01) ==
PROVIDERS: Emergency Provider Emergency Medicine; PCP Family Medicine; Visit Provider Emergency Medicine
DX: S05.02XA Injury of conjunctiva and corneal abrasion without foreign body, left eye, initial encounter (principal); Z87.891 Personal history of nicotine dependence; X58.XXXA Exposure to other specified factors, initial encounter
CPT/HCPCS: 99282

== ENCOUNTER → 2023-01-14 | Outpatient (CLI) | payer MEDICARE, SELFPAY ==
[2023-01-14 12:23] LABS: Bacteria 0 SEEN /hpf (None Seen); Mucous, Urine 0 SEEN /hpf (<or=2+)
[2023-01-14 12:34] LABS: Color, Urine Yellow (Yellow); Glucose, Dipstick Normal (Normal); Ketone-Dipstick Negative (Negative); Leukocyte Esterase-Dipstick 25 /ul (Negative); Nitrite-Dipstick Negative (Negative); Occult Blood-Urine 10 /ul (Negative); Protein-Dipstick 15 mg/dl (Negative); Specific Gravity, Urine 1.015 (1.002-1.030); Urine Bilirubin Dipstick Negative (Negative); Urine Clarity Clear (Clear); Urine Urobilinogen Normal (Normal)
[2023-01-14 12:52] LABS: Red Blood Cells-Urine 0-5 SEEN /hpf (0-5); Squamous Epithelial Cells - UA 0-5 SEEN /hpf (5-10); White Blood Cells 0-5 SEEN /hpf (0-5)
== END | disposition home or self-care (01) ==
PROVIDERS: Nurse Practitioner Family; PCP Family Medicine; Referring Provider Physician Assistant Surgical; Visit Provider Physician Assistant Surgical
DX: R30.0 Dysuria (principal)
CPT/HCPCS: 81001; 87086; 87088

== ENCOUNTER → 2023-01-24 | Outpatient (CLI) | payer MEDICARE, SELFPAY ==
[2023-01-24 12:43] LABS: Bacteria 0 SEEN /hpf (None Seen); Mucous, Urine 0 SEEN /hpf (<or=2+); Red Blood Cells-Urine 0 SEEN /hpf (0-5); Squamous Epithelial Cells - UA 0 SEEN /hpf (5-10); White Blood Cells 0 SEEN /hpf (0-5)
[2023-01-24 13:37] LABS: Color, Urine Yellow (Yellow); Glucose, Dipstick Normal (Normal); Ketone-Dipstick Negative (Negative); Leukocyte Esterase-Dipstick 25 /ul (Negative); Nitrite-Dipstick Negative (Negative); Occult Blood-Urine Negative /ul (Negative); Protein-Dipstick Negative (Negative); Specific Gravity, Urine 1.015 (1.002-1.030); Urine Bilirubin Dipstick Negative (Negative); Urine Clarity Clear (Clear); Urine Urobilinogen Normal (Normal)
== END | disposition home or self-care (01) ==
LOC: LABSPEC 12:34
PROVIDERS: PCP Family Medicine; Referring Provider Family Medicine; Visit Provider Family Medicine
DX: N39.0 Urinary tract infection, site not specified (principal)
CPT/HCPCS: 81001; 87086

== ENCOUNTER → 2023-02-14 | Outpatient (CLI) | payer MEDICARE, SELFPAY ==
[2023-02-14 11:04] LABS: Cholesterol 188 mg/dL (200); High Density Lipoprotein 70 mg/dL; Thyroid Stim Hormone (TSH) 0.66 uIU/mL (0.358-3.74); Triglycerides 98 mg/dL; Very Low Density Lipoprotein 20 mg/dL (5-40)
== END | disposition home or self-care (01) ==
LOC: MFPLAB 08:50
PROVIDERS: PCP Family Medicine; Visit Provider Family Medicine
DX: I10 Essential (primary) hypertension (principal); E03.9 Hypothyroidism, unspecified
CPT/HCPCS: 36415; 80061; 84436; 84443

== ENCOUNTER → 2023-05-23 | Outpatient (CLI) | payer MEDICARE, SELFPAY ==
[2023-05-23 16:19] LABS: AST(SGOT) 18 U/L (15-37); Alanine Aminotransfer ALT/SGPT 26 U/L (13-56); Albumin, Serum 3.8 g/dL (3.2-5.0); Alkaline Phosphatase 75 U/L (45-117); Amylase 37 U/L (25-115); Bilirubin, Direct 0.19 mg/dL (0.00-0.30); Globulin 3.5 g/dL (2.2-4.2); Lipase 23 U/L (13-75); Protein, Total 7.3 g/dL (6.4-8.2)
== END | disposition home or self-care (01) ==
LOC: MFPLAB 14:11
PROVIDERS: PCP Family Medicine; Visit Provider Family Medicine
DX: R10.9 Unspecified abdominal pain (principal)
CPT/HCPCS: 36415; 80076; 82150; 83690

== ENCOUNTER 2023-09-07 14:00 | Outpatient (RCR) | payer MEDICARE, SELFPAY ==
--- NOTE | 2023-08-26 09:47 | HP.OTEVAL_ITS ---
Patient's Visit Information Visit Information Visit Information: ARIEL BISHOP is a 78 year old F, referred to Occupational Therapy by Dr. Freda Matos DO, with a diagnosis of breast cancer. Date of Evaluation: 08/26/23 Occupational Therapist: OBDULIA Talavera/Jose Eduardo, CHT Subjective Subjective: This 78 year old female was seen for OT eval with dx stage IV breast cancer left breast. original dx in 2012 with lumpectomy and sx x2 to get clear margins pt states she did have 30 rounds of radiation at that time. Found in liver in 2020 and was chemo and now on mat. drugs pt states she had her mastectomy 2023. pt states she has had to have draining x 2 and went without her chest wraps today following her shower so therapist could see her incisions and check her ROM. pt states she would like to gain more ROM and not have the pulling sensation when moving her left UE. ROM Shoulder: right WNL left shoulder abd. 120*, External Rotation 40* Elbow: right/left WNL ROM Comments: pt demo with rolled shoulder neck forward position- pt states she does find herself with shoulders forward a lot since her sx. Lymphedema (Circumferential Measure) MCP: right 18.5cm left 18cm Wrist: right 15cm left 15cm Lower forearm: right 16cm left 17.7cm Largest forearm: right 22cm left 23cm Elbow: right 23cm left 25cm Largest humerus: right 28cm left 30cm Axcillary: right 32cm left 32cm Sensation Sensation Comments: denies Quick DASH-Disab of Arm,Shoulder& Hand Quick DASH Score: 47.5000 Goals Goal: Patient will demonstrate a 20% reduction in edema by discharge: Yes Goal: Patient will demonstrate adequate knowledge of self-bandaging by the end of the first week.: Yes Goal: Patient will demonstrate adequate knowledge of self-massage by the end of the second week.: Yes Goal: Patient will demonstrate adequate knowledge of skin care and precautions by the end of the first week.: Yes Goal: Patient will demonstrate adequate knowledge of therapeutic exercises by discharge.: Yes Rehabilitation General Assessment: s/p 8 weeks and 3 days s/p from a left mastectomy.pt demo with hypertrophic scaring decreasing pts ROM and pt feels noticeable pulling sensation with her ROM. Pt demo with limited left shoulder abduction and ER limiting pts ind with ADLs and IADLs. pt demo need for skilled OT services 1-2x week for 4-6 weeks to ensure pt reaches her maximal rehab potential. Today therapist ed. pt on shoulder ROM and AAROM ex. ( light stretch) as well as scar mobilization. therapist ed. pt we would start with this and progress to ed. pt on self manual edema mobilization. pt demo understanding and agree to POC. Rehabilitation Potential: Good Anticipated Interventions Anticipated Interventions: A/AAROM/PROM, Scar Care, Joint Protection/Energy Conservation, Education re assistive Equipment, Education re Diagnosis, Education re Skin Care and Precautions and Education re Self Massage Techniques Visit Plan Frequency: 1-2x /Week Duration: 6 Weeks General Plan: will initiate ROM for shoulder Scar mobilization ed.pt on self lymph massage TEXT: Thank you for the opportunity to evaluate your patient. For Medicare and Medicare HMO plans, please review the plan of care and approve it. It will need to be FAXED BACK to us at [phone] for Medicare purposes. Please let me know if there are questions or concerns regarding this plan of care. Physician Signature: Date:
--- NOTE | 2023-12-30 09:08 | HP.OT.NRP ---
Patient Information Patient Information: ARIEL BISHOP was seen in my office for initial evaluation on 08/26/23. The following Plan of Care was established for this patient: POC Established Initial Frequency: 1-2x /Week Initial Duration: 6 Weeks Anticipated Interventions Anticipated Interventions: A/AAROM/PROM, Scar Care, Joint Protection/Energy Conservation, Education re assistive Equipment, Education re Diagnosis, Education re Skin Care and Precautions and Education re Self Massage Techniques Last Seen Last Seen: This patient was last seen in our office 09/07/23. Pertinent comments regarding their Occupational therapy will appear below: pt was seen for 2 OT session- at this time pt has not scheduled further apts and due to time lapse in services pt is d/d. At this point I will be discontinuing this patient from occupational therapy. I would be happy to see this patient again in the future if found appropriate by the physician. Thank you! Sangeetha Freeman, OTR/L, CHT
== END 2023-09-07 19:00 | disposition home or self-care (01) ==
LOC: OT 14:00
PROVIDERS: PCP Family Medicine; Referring Provider Surgery; Visit Provider Surgery
DX: C50.912 Malignant neoplasm of unspecified site of left female breast (principal)
CPT/HCPCS: 97110; 97140; 97166

== ENCOUNTER → 2023-10-10 | Outpatient (CLI) | payer MEDICARE, SELFPAY ==
[2023-10-10 17:43] LABS: Protein:Creat Ratio 102 mg/g CRE (0-200)
[2023-10-10 17:51] LABS: Cholesterol 168 mg/dL (200); High Density Lipoprotein 63 mg/dL; T4 Total, Thyroxin 7.8 ug/dL (4.8-13.9); Thyroid Stim Hormone (TSH) 0.56 uIU/mL (0.358-3.74); Triglycerides 190 mg/dL; Very Low Density Lipoprotein 38 mg/dL (5-40)
== END | disposition home or self-care (01) ==
LOC: MFPLAB 14:19
PROVIDERS: PCP Family Medicine; Visit Provider Family Medicine
DX: E03.9 Hypothyroidism, unspecified (principal); I10 Essential (primary) hypertension
CPT/HCPCS: 36415; 80061; 82570; 84156; 84436; 84443

== ENCOUNTER 2024-01-28 21:32 | Emergency (ER) | payer MEDICARE, SELFPAY ==
[2024-01-28 21:32] VITALS: BP 156/73; PULSE 76; RESP 18; TEMP 36.1; O2SAT 97
--- NOTE | 2024-01-28 22:50 | EDS_ITS ---
HPI History of Present Illness Chief Complaint: Eye Problem Informant: patient Onset/Context/Timing Location: Right Eye Onset: Today Context: Sudden Onset Timing: Continuous Associated Symptoms History of injury: No Narrative Narrative: Patient presents with redness to her right eye that she noticed today. Patient denies any trauma or injury. Patient denies any visual changes. Patient states the redness is over the inferior part of the sclera. [facility] Medical History Arthritis Back pain 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 History of cancer History of hypertension History of thyroid disease History of TIA (transient ischemic attack) Liver metastasis Neck pain Severe headache Sleep apnea Stomach ulcer Wears dentures Home Medications ?Medication ?Instructions ?Recorded ?Last Taken ?Type clopidogrel 75 mg tablet 75 mg PO ONCE 06/16/17 09/22/20 History fluoxetine 40 mg capsule 40 mg PO QDAY 06/16/17 Unknown History zolpidem 10 mg tablet 10 mg PO QHS 30 days ##30 06/16/17 Unknown History liothyronine 5 mcg tablet 5 mcg PO DAILY 07/15/17 09/29/20 04:30 History esomeprazole magnesium 20 mg 20 mg PO DAILY 09/25/20 Unknown History capsule,delayed release lisinopril 20 mg tablet 20 mg PO DAILY 09/25/20 09/29/20 06:30 History cholecalciferol (vitamin D3) 50 50 mcg PO DAILY 06/11/21 Unknown History mcg (2,000 unit) capsule levothyroxine 125 mcg tablet 112 mcg PO DAILY 30 days #27 tabs 06/11/21 Unknown History sennosides 8.6 mg tablet (Senokot) 8.6 mg PO DAILY 06/11/21 Unknown History hydrocodone-acetaminophen 5-325mg ea PO 07/16/22 Unknown History 5mg-325mg alprazolam 0.5 mg tablet 0.5 mg PO DAILY PRN 07/21/22 Unknown History phenazopyridine 100 mg tablet 100 mg PO TID PRN pain 6 doses #7 01/14/23 Unknown Rx (Pyridium) tabs Allergy/AdvReac Type Severity Reaction Status Date / Time shellfish derived Allergy Severe throat Verified 01/28/24 21:32 swelling adhesive tape AdvReac Rash Verified 01/28/24 21:32 Family History Mother Colon cancer passed from recurrence Thyroid disorder Father Hypertension CVA (cerebral vascular accident) Sister Breast cancer, Onset Age: 87 Aunt Colon cancer paternal Surgical History History of back surgery History of lumpectomy History of thyroid surgery Social History household members: spouse Smoking Status: Former smoker how long ago did patient quit smoking: >50 years ago; off and on for 2 years, socially only alcohol intake: current alcohol intake frequency: 0-2 drinks per day Alcohol type: wine details: socially substance use type: does not use EXAM Physical Exam Const Vital Signs: 01/28/24 21:32 Temperature 97 F L Temperature Source Temporal Pulse Rate 76 Respiratory Rate 18 Blood Pressure 156/73 H Blood Pressure Mean 100 Pulse Ox 97 Oxygen Delivery Method Room Air Positive well nourished and well developed General Appearance ED: well developed and NAD Eyes Eyes Narrative: There is a subconjunctival hemorrhage over the inferior aspect of the sclera on the right. It involves both medial and lateral aspects of the sclera. There is no hyphema noted. Neuro moves all extremities Sensorium / Orientation: alert MDM MDM MDM Narrative Medical decision making narrative: Patient was advised that this is a subconjunctival hemorrhage. There is no alis atment for this. Patient was instructed to continue to monitor this. Patient was instructed to follow-up with her primary care physician in 1 to 2 weeks as needed. Discharge Plan Triage Chief Complaint: Eye Problem ED Provider: Cristóbal Raymond Dx/Rx/DC Orders Clinical Impression: Subconjunctival hemorrhage of right eye Instructions: ED Subconjunctival Hemorrhage Prescriptions: No Action zolpidem 10 mg tablet 10 mg PO QHS 30 Days Qty: 30 Patient Comments: TAKE 1 TABLET BY MOUTH AT BEDTIME clopidogrel 75 mg tablet 75 mg PO ONCE fluoxetine 40 mg capsule 40 mg PO QDAY levothyroxine 125 mcg tablet 112 mcg PO DAILY 30 Days Qty: 27 Patient Comments: TAKE 1 TABLET EVERY DAY cholecalciferol (vitamin D3) 50 mcg (2,000 unit) capsule 50 mcg PO DAILY sennosides [Senokot] 8.6 mg tablet 8.6 mg PO DAILY hydrocodone-acetaminophen 5-325 mg tablet PO Patient Comments: TAKE 1-2 TABLETS BY MOUTH EVERY 6 HOURS NEEDED FOR PAIN FOR UP TO 5 DAYS. alprazolam 0.5 mg tablet 0.5 mg PO DAILY PRN phenazopyridine [Pyridium] 100 mg tablet 100 mg PO TID PRN (Reason: pain) Qty: 7 0RF Rx Instructions: administer with a full glass of water after each meal liothyronine 5 MCG tablet 5 mcg PO DAILY lisinopril 20 MG tablet 20 mg PO DAILY esomeprazole magnesium 20 MG capsule,delayed release(DR/EC) 20 mg PO DAILY Primary Care Provider: Tami Chang Referrals: Tami Chang MD [Primary Care Provider] - 1 Week if not improving Print Language: Albanian Disposition Disposition: Home, Self Care
== END 2024-01-28 23:11 | disposition home or self-care (01) ==
LOC: ED 22:55
PROVIDERS: Emergency Provider Emergency Medicine; PCP Family Medicine; Visit Provider Emergency Medicine
DX: H11.31 Conjunctival hemorrhage, right eye (principal); G47.30 Sleep apnea, unspecified; Z87.891 Personal history of nicotine dependence; Z86.73 Personal history of transient ischemic attack (TIA), and cerebral infarction without residual deficits
CPT/HCPCS: 99282

== ENCOUNTER → 2024-01-29 | Outpatient (CLI) | payer MEDICARE, SELFPAY | END | disposition home or self-care (01) | LOC: LABSPEC 13:44 | PROVIDERS: PCP Family Medicine; Referring Provider Nurse Practitioner Family; Visit Provider Nurse Practitioner Family | DX: N39.0 Urinary tract infection, site not specified (principal) | CPT/HCPCS: 87086; 87088 ==

== ENCOUNTER → 2024-03-16 | Outpatient (CLI) | payer MEDICARE, SELFPAY ==
--- NOTE | 2024-03-16 | FLU_PTH ---
PATIENT: ARIEL BISHOP LOC: [facility] U#:[id number] AGE/SX: 78/F ROOM: RE03/16/[address]: Dr. Tavon Soto MD : 1945 BED: DIS: 03/16/2024 SPEC #: [id number] RECD: 03/16/24 13:32 STATUS: MONICA NAPIER #: [id number] DARCI: 03/16/24 00:[address]: Tavon Soto DEPT: CYTOLOGY RECD BY: Esa Luna Tissues: Breast, NOS Procedures: Special Stain Group II Surgery Specimen Level IV Cytospin Fluid HEADER OPERATION: Aspiration and injection of seroma- left PRE-OP DIAGNOSIS: Left seroma TISSUE SUBMITTED: Seroma fluid for cytology DIAGNOSIS CYTOLOGY Seroma fluid for cytology (cytospin and cellblock): Negative for malignant cells. See riley. 03/19/2024 COMMENT The specimen consists of lymphocytes and a few microphages. Clinical correlation and appropriate follow up are necessary. CYTOLOGY STUDY Slides are reviewed. CYTOLOGY GROSS Received is 3 ml of yellow-cloudy fluid labeled with the patient's name and and designated per the requisition as Seroma fluid. Submitted for cytology preparation including cell block. 03/16/2024 TC:5 CPT: 46885,57134
[2024-03-16 13:14] LABS: Cytology, Body Fluid / CSF SEE PATHOLOGY REPORT
== END | disposition home or self-care (01) ==
LOC: LABSPEC 12:18
PROVIDERS: Referring Provider Surgery Plastic and Reconstructive Surgery; Visit Provider Surgery Plastic and Reconstructive Surgery
DX: N64.89 Other specified disorders of breast (principal)
CPT/HCPCS: 87070; 87075; 87205; 88108; 88305; 88313

== ENCOUNTER → 2024-03-30 | Outpatient (CLI) | payer MEDICARE, SELFPAY ==
[2024-03-30 11:39] LABS: Hemoglobin A1c 5.1 % (3.8-5.6)
== END | disposition home or self-care (01) ==
LOC: MFPLAB 08:24
PROVIDERS: PCP Family Medicine; Referring Provider Family Medicine; Visit Provider Family Medicine
DX: R73.09 Other abnormal glucose (principal)
CPT/HCPCS: 36415; 83036

== ENCOUNTER 2024-05-23 12:19 | Day surgery (SDC) | payer MEDICARE, SELFPAY ==
--- NOTE | 2024-05-21 13:45 | PAT.ANE_ITS ---
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 When Was Last Pacemaker Check QUESTION #4 FULL TEXT: You/Your Family Experience fever (hyperthermia) with Anesthesia Last Oral Intake Last Oral intake: Last Oral Intake NPO since Meds taken in AM with sips of water? 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 - corporate development analyst: PONV - corporate development analyst Female Yes 05/21/24 09:03 HX of Motion Sickness No 05/21/24 09:03 HX of N/V After Surgery No 05/21/24 09:03 Non-Smoker Yes 05/21/24 09:03 Duration of Surgery greater No 05/21/24 09:03 than 60 minutes Number of Risk Factors 2 05/21/24 09:03 PONV Score Moderate Risk 05/21/24 09:03 Height & Weight Height & Weight: Anesthesia: Height & Weight Height 5 ft 1 in 04/30/24 13:08 Respiratory Assessment Respiratory Assessment - corporate development analyst: Respiratory Tract Infection Hx - corporate development analyst Hx Respiratory Tract Infection No 05/21/24 09:03 STOP Sleep Apnea STOP Sleep Apnea - corporate development analyst: STOP Sleep Apnea - corporate development analyst Hx Hypertension Yes: controlled 05/21/24 09:03 Hx Sleep Apnea No 05/21/24 09:03 CPAP No 05/21/24 09:03 BIPAP No 05/21/24 09:03 Do you snore loudly (louder No 05/21/24 09:03 than talking or can be heard Do you often feel tired/ No 05/21/24 09:03 fatigued/ sleepy during daytime? Has anyone observed you stop No 05/21/24 09:03 breathing during sleep? STOP Results Negative 05/21/24 09:03 QUESTION #5 FULL TEXT : Do you snore loudly (louder than talking or can be heard through closed doors)? 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 Specify any problems Hx of Preganancy in last 3 No 05/21/24 09:03 Months Nurse Filling Out Transfusion VCHRISTIN 05/21/24 09:03 & Questions: Date: 05/21/24 05/21/24 09:03 Time: 09:04 05/21/24 09:03 Patient unable to answer at this time (ie. confused, unrespo /Reproduction History /Reproductive History - corporate development analyst: /Reproductive Hx- corporate development analyst Hx Now Gestational Age (in weeks): EDC: Hx Hx Para Hx Section SAB PFSH Medical History (Updated 05/21/24 @ 09:03 by Anabelle Cerda) Wears glasses Post-menopausal Cancer Depression Anxiety Alcohol use Thyroid disease Anemia Easy bruising Excessive bleeding Back pain TIA (transient ischemic attack) History of hiatal hernia History of ulceration History of IBS Gastric reflux Former smoker Shortness of breath on exertion History of echocardiogram Hypertension History of irregular heartbeat History of rheumatic fever LUQ pain 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 Epigastric abdominal pain Liver metastasis 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 Wears dentures Sleep apnea History of TIA (transient ischemic attack) History of thyroid disease Back pain Neck pain Severe headache Stomach ulcer History of cancer Arthritis History of hypertension Home Medications ?Medication ?Instructions ?Recorded ?Last Taken ?Type fluoxetine 40 mg capsule 40 mg PO QDAY 06/16/17 Unknown History lisinopril 20 mg tablet 20 mg PO DAILY 09/25/20 09/29/20 06:30 History levothyroxine 125 mcg tablet 112 mcg PO DAILY 30 days #27 tabs 06/11/21 Unknown History hydrocodone-acetaminophen 5-325mg 1 tab PO Q6H PRN pain 07/16/22 Unknown History 5mg-325mg alprazolam 0.5 mg tablet 0.5 mg PO DAILY PRN anxiety 07/21/22 Unknown History letrozole 2.5 mg tablet 2.5 mg PO QDAY 02/16/24 Unknown History znoddlel-eqwjjqnja-jzpmnhni 3.5 1 drp ophthalmic (eye) DAILY 02/16/24 Unknown History mg/mL-10,000 unit/mL-0.1% eye drops amlodipine 5 mg tablet 5 mg PO QDAY 04/30/24 Unknown History clopidogrel 75 mg tablet 75 mg PO QDAY 04/30/24 05/17/24 History esomeprazole magnesium 20 mg 20 mg PO QDAY 04/30/24 05/17/24 History capsule,delayed release (Nexium) sennosides 8.6 mg tablet (Senokot) 8.6 mg PO DAILY PRN constipation 04/30/24 Unknown History liothyronine 5 mcg tablet 5 mcg PO DAILY 05/21/24 Unknown History zolpidem 10 mg tablet 10 mg PO QHS 05/21/24 Unknown History Allergy/AdvReac Type Severity Reaction Status Date / Time shellfish derived Allergy Severe throat Verified 05/21/24 08:45 swelling adhesive tape AdvReac Rash Verified 05/21/24 08:45 Family History Mother Colon cancer passed from recurrence Thyroid disorder Father Hypertension CVA (cerebral vascular accident) Sister Breast cancer, Onset Age: 87 Aunt Colon cancer paternal Surgical History History of lumpectomy History of back surgery History of thyroid surgery Social History household members: spouse Smoking Status: Former smoker how long ago did patient quit smoking: >50 years ago; off and on for 2 years, socially only alcohol intake: current alcohol intake frequency: 0-2 drinks per day Alcohol ty pe: wine details: socially substance use type: does not use additional social history: denies vaping, denies marijuana, denies edibles, denies aspirin and ibuprofen use Audit: Pertinent Findings Pertinent Findings Echo (EF%) pertinent findings: 07/2017 ef 65% 04/29 ef 58%, no change Recommendation Anesthesia Recommendation Anesthesia recommendation: OPTIMIZED for anesthesia
--- NOTE | 2024-05-23 12:31 | PRE.ANES_ITS ---
ASA Classification* ASA Classification ASA Classification: 3 Assessment & Plan Anesthesia* Anesthesia Assessment Anesthesia Assessment: Discussed sedation and/or anesthesia options, risks, benefits, and alternatives with patient/parents/legal guardian/POA. Questions invited. The patient/parents/legal guardian/POA seems to understand and agrees to proceed with anesthesia plan. Reviewed the physical assessment, medical history, allergy history and patient home medications list prior to surgery/procedure/anesthetic and documented any changes. Performed airway and anesthesia risk assessments. Anesthesia Type Anesthesia Type: MAC Anesthesia Focused Assessment* Airway Assessment Mouth opens: >3 cm Mallampati Score: II Focused Labs Anesthesia Preop lab: CBC WBC 6.8 K/mm3 (4.4-11.0) 11/21/19 15: RBC 4.03 M/mm3 (4.2-5.4) L 11/21/19 15:19 Hgb 12.5 g/dL (12.0-15.0) 11/21/19 15: Hct 38.4 % (37-47) 11/21/19 15:19 Plt Count 377 K/mm3 (150-450) 11/21/19 15:19 CHEMISTRY Potassium 3.8 mmol/L (3.5-5.1) 05/06/20 13:28 Sodium 138 mmol/L (136-145) 05/06/20 13:28 Magnesium 2.0 mg/dL (1.8-2.4) 12/21/16 10:25 Phosphorus 3.7 mg/dL (2.5-4.9) 11/07/19 09:54 BUN 12 mg/dL (7-18) 05/06/20 13:28 Creatinine 0.84 mg/dL (0.55-1.02) 05/06/20 13:28 Glucose 88 mg/dL (74-106) 05/06/20 13:28 TSH 0.56 uIU/mL (0.358-3.74) 10/10/23 14:20 COAG PT 13.4 SECONDS (11.7-14.9) 12/25/18 15:07 Pre-Assessment Diagnosis/Proposed Procedure Planned Operative Procedure(s): COLONOSCOPY/EGD Anesthesia History 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 When Was Last Pacemaker Check QUESTION #4 FULL TEXT: You/Your Family Experience fever (hyperthermia) with Anesthesia Last Oral Intake Last Oral intake: Last Oral Intake NPO since Meds taken in AM with sips of water? 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 mechanic apprentice Female Yes 05/21/24 09:03 HX of Motion Sickness No 05/21/24 09:03 HX of N/V After Surgery No 05/21/24 09:03 Non-Smoker Yes 05/21/24 09:03 Duration of Surgery greater No 05/21/24 09:03 than 60 minutes Number of Risk Factors 2 05/21/24 09:03 PONV Score Moderate Risk 05/21/24 09:03 Height & Weight Height & Weight: Anesthesia: Height & Weight Height 5 ft 1 in 04/30/24 13:08 Respiratory Assessment Respiratory Assessment - diesel engine mechanic apprentice: Respiratory Tract Infection Hx - diesel engine mechanic apprentice Hx Respiratory Tract Infection No 05/21/24 09:03 STOP Sleep Apnea STOP Sleep Apnea - diesel engine mechanic apprentice: STOP Sleep Apnea - diesel engine mechanic apprentice Hx Hypertension Yes: controlled 05/21/24 09:03 Hx Sleep Apnea No 05/21/24 09:03 CPAP No 05/21/24 09:03 BIPAP No 05/21/24 09:03 Do you snore loudly (louder No 05/21/24 09:03 than talking or can be heard Do you often feel tired/ No 05/21/24 09:03 fatigued/ sleepy during daytime? Has anyone observed you stop No 05/21/24 09:03 breathing during sleep? STOP Results Negative 05/21/24 09:03 QUESTION #5 FULL TEXT : Do you snore loudly (louder than talking or can be heard through closed doors)? 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 Specify any problems Hx of Preganancy in last 3 No 05/21/24 09:03 Months Nurse Filling Out Transfusion VCHRISTIN 05/21/24 09:03 & Questions: Date: 05/21/24 05/21/24 09:03 Time: 09:04 05/21/24 09:03 Patient unable to answer at this time (ie. confused, unrespo /Reproduction History /Reproductive History - diesel engine mechanic apprentice: /Reproductive Hx- diesel engine mechanic apprentice Hx Now Gestational Age (in weeks): EDC: Hx Hx Para Hx Section SAB PFSH Medical History Wears glasses Post-menopausal Cancer Depression Anxiety Alcohol use Thyroid disease Anemia Easy bruising Excessive bleeding Back pain TIA (transient ischemic attack) History of hiatal hernia History of ulceration History of IBS Gastric reflux Former smoker Shortness of breath on exertion History of echocardiogram Hypertension History of irregular heartbeat History of rheumatic fever LUQ pain 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 Epigastric abdominal pain Liver metastasis 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 Wears dentures Sleep apnea History of TIA (transient ischemic attack) History of thyroid disease Back pain Neck pain Severe headache Stomach ulcer History of cancer Arthritis History of hypertension Home Medications ?Medication ?Instructions ?Recorded ?Last Taken ?Type fluoxetine 40 mg capsule 40 mg PO QDAY 06/16/17 Unknown History lisinopril 20 mg tablet 20 mg PO DAILY 09/25/20 09/29/20 06:30 History levothyroxine 125 mcg tablet 112 mcg PO DAILY 30 days #27 tabs 06/11/21 Unknown History hydrocodone-acetaminophen 5-325mg 1 tab PO Q6H PRN pain 07/16/22 Unknown History 5mg-325mg alprazolam 0.5 mg tablet 0.5 mg PO DAILY PRN anxiety 07/21/22 Unknown History letrozole 2.5 mg tablet 2.5 mg PO QDAY 02/16/24 Unknown History hxnxkfys-nennpeqsh-rirexpln 3.5 1 drp ophthalmic (eye) DAILY 02/16/24 Unknown History mg/mL-10,000 unit/mL-0.1% eye drops amlodipine 5 mg tablet 5 mg PO QDAY 04/30/24 Unknown History clopidogrel 75 mg tablet 75 mg PO QDAY 04/30/24 05/17/24 History esomeprazole magnesium 20 mg 20 mg PO QDAY 04/30/24 05/17/24 History capsule,delayed release (Nexium) sennosides 8.6 mg tablet (Senokot) 8.6 mg PO DAILY PRN constipation 04/30/24 Unknown History liothyronine 5 mcg tablet 5 mcg PO DAILY 05/21/24 Unknown History zolpidem 10 mg tablet 10 mg PO QHS 05/21/24 Unknown History Allergy/AdvReac Type Severity Reaction Status Date / Time shellfish derived Allergy Severe throat Verified 05/21/24 08:45 swelling adhesive tape AdvReac Rash Verified 05/21/24 08:45 Family History Mother Colon cancer passed from recurrence Thyroid disorder Father Hypertension CVA (cerebral vascular accident) Sister Breast cancer, Onset Age: 87 Aunt Colon cancer paternal Surgical History History of lumpectomy History of back surgery History of thyroid surgery Social History household members: spouse Smoking Status: Former smoker how long ago did patient quit smoking: >50 years ago; off and on for 2 years, socially only alcohol intake: current alcohol intake frequency: 0-2 drinks per day Alcohol type: wine details: socially substance use type: does not use additional social history: denies vaping, denies marijuana, denies edibles, denies aspirin and ibuprofen use Review of Systems (Anesthesia) ROS Narrative System reviewed and no additional complaints, except as documented.
[2024-05-23 12:40] VITALS: BP 127/57; PULSE 82; RESP 16; TEMP 36.6; O2SAT 97; BMI 28.3
--- NOTE | 2024-05-23 13:13 | HP.PCM_ITS ---
HPI - General General Date of Admission: 05/23/24 Date of Service: 05/23/24 Chief Complaint: screening HPI Narrative ARIEL BISHOP, is a 79 F who presents for EGD and colonoscopy. She does have a history of Nguyen's esophagus diagnosed in the past. It has been about 3 and half years since her last EGD. It sounds as though it has been about 5 or 6 years since her last colonoscopy. These were both recently recommended to her. 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 Wears dentures Sleep apnea History of TIA (transient ischemic attack) History of thyroid disease Back pain Neck pain Severe headache Stomach ulcer History of cancer Arthritis History of hypertension Home Medications ?Medication ?Instructions ?Recorded ?Last Taken ?Type fluoxetine 40 mg capsule 40 mg PO QDAY 06/16/17 Unknown History lisinopril 20 mg tablet 20 mg PO DAILY 09/25/20 05/23/24 History levothyroxine 125 mcg tablet 112 mcg PO DAILY 30 days #27 tabs 06/11/21 05/23/24 History hydrocodone-acetaminophen 5-325mg 1 tab PO Q6H PRN pain 07/16/22 Unknown History 5mg-325mg alprazolam 0.5 mg tablet 0.5 mg PO DAILY PRN anxiety 07/21/22 Unknown History letrozole 2.5 mg tablet 2.5 mg PO QDAY 02/16/24 05/23/24 History lshfszev-kvhnbpkwx-cvndppcm 3.5 1 drp ophthalmic (eye) DAILY 02/16/24 Unknown History mg/mL-10,000 unit/mL-0.1% eye drops amlodipine 5 mg tablet 5 mg PO QDAY 04/30/24 Unknown History clopidogrel 75 mg tablet 75 mg PO QDAY 04/30/24 05/17/24 History esomeprazole magnesium 20 mg 20 mg PO QDAY 04/30/24 05/17/24 History capsule,delayed release (Nexium) sennosides 8.6 mg tablet (Senokot) 8.6 mg PO DAILY PRN constipation 04/30/24 Unknown History liothyronine 5 mcg tablet 5 mcg PO DAILY 05/21/24 05/23/24 History zolpidem 10 mg tablet 10 mg PO QHS 05/21/24 Unknown History Allergy/AdvReac Type Severity Reaction Status Date / Time shellfish derived Allergy Severe throat Verified 05/23/24 12:38 swelling adhesive tape AdvReac Rash Verified 05/23/24 12:38 Family History Mother Colon cancer passed from recurrence Thyroid disorder Father Hypertension CVA (cerebral vascular accident) Sister Breast cancer, Onset Age: 87 Aunt Colon cancer paternal Surgical History History of lumpectomy History of back surgery History of thyroid surgery Social History household members: spouse Smoking Status: Former smoker how long ago did patient quit smoking: >50 years ago; off and on for 2 years, socially only alcohol intake: current alcohol intake frequency: 0-2 drinks per day Alcohol type: wine details: socially substance use type: does not use additional social history: denies vaping, denies marijuana, denies edibles, denies aspirin and ibuprofen use Vital Signs Vital Signs Vital Signs: 05/23/24 12:40 05/23/24 12:40 Temperature 98 F Temperature Source Temporal Pulse Rate 82 Respiratory Rate 16 Respiratory Pattern Normal Blood Pressure 127/57 H Blood Pressure Mean 80 Blood Pressure Source Monitor Blood Pressure Position Semi-Fowlers Blood Pressure Location Right Arm Pulse Ox 97 Oxygen Delivery Method Room Air Weight Weight: 149 lb 14.629 oz Body Mass Index (BMI) 28.3 Physical Exam Narrative She is alert and oriented x 3. No acute distress. Assessment & Plan Assessment/Plan (1) History of Nguyen's esophagus: PLAN: Plan The patient is a 79-year-old female in need of an EGD and colonoscopy for screening purposes. We reviewed the details of the planned procedure including risks benefits and alternatives. She wishes to proceed. This will be starting shortly Charges/Coding Visit Charges Inpatient E&M: 83728 Init Hosp L1
--- NOTE | 2024-05-23 13:30 | IMM_PTH ---
PATIENT: ARIEL BISHOP LOC: EN U#:[id number] AGE/SX: 79/F ROOM: RE05/23/[address]: Dr. Flo Zamudio MD : 1945 BED: DIS: 05/23/2024 SPEC #: [id number] RECD: 05/24/24 08:30 STATUS: MONICA REQ #: [id number] DARCI: 05/23/24 13:[address]: Flo Zamudio DEPT: IMMUNOHISTOCHEMISTRY RECD BY: Dustin Flores ENTERED: 05/24/24 08:30 SP TYPE: IMMUNO OTHR DR: Dr. Tami Chang MD Tissues: A - Gastric mucous membrane Procedures: H Pylori (initial) PHYSICIAN & INSTITUTION [place] [id number] SPECIMEN INFORMATION: Tissue Source: A- Antrum biopsy Clinical Info: History of Nguyen's esophagus Specimen Number: [id number] CPT code: 98435 METHODOLOGY: Deparaffinized sections of prefer/formalin-fixed tissue or PAP/DQ stained slides are incubated with monoclonal/polyclonal antibodies/oligonucleotide probes. Localization is made via biotin free immunoperoxidase method. Appropriate controls are performed and reacted as expected. Results on target cell population are indicated in the following table: RESULTS: ANTIBODY / CLONE RESULT Block A H Pylori (polyclonal) negative These tests were developed and their performance characteristics determined by [facility]. They may not have been cleared or approved by the U.S. Food and Drug Administration. The FDA has determined that such clearance or approval is not necessary. The above immunohistochemical/dualISH markers are ordered and reviewed by the Pathologist. INTERPRETATION: A. Antrum, biopsy: Negative for Helicobacter pylori organisms. AM 05/25/2024
--- NOTE | 2024-05-23 13:30 | COLBX_PTH ---
PATIENT: ARIEL BISHOP LOC: EN U#:[id number] AGE/SX: 79/F ROOM: RE05/23/[address]: Dr. Flo Zamudio MD : 1945 BED: DIS: 05/23/2024 SPEC #: [id number] RECD: 05/23/24 16:37 STATUS: MONICA QUYEN #: [id number] DARCI: 05/23/24 13:[address]: Flo Zamudio DEPT: SURGICAL PATHOLOGY RECD BY: Esa Luna ENTERED: 05/24/24 07:52 SP TYPE: COLON BX OTHR DR: Dr. Tami Chang MD Tissues: A - Gastric mucous membrane B - Gastric mucous membrane C - Gastric mucous membrane D - Sigmoid colon biopsy E - Cecum, NOS Procedures: Special Stain Group I Surgery Specimen Level IV Alcian Blue/PAS (control) HEADER OPERATION: Colonoscopy, EGD with biopsy, polypectomy PRE-OP DIAGNOSIS: History of Nguyen's esophagus TISSUE SUBMITTED: A- Antrum biopsy, B- Gastric polyp biopsy, C- Gastroesophageal junction biopsy, D- Sigmoid polyp biopsy, E- Cecum polyp MICROSCOPIC DIAGNOSIS A. Gastric antrum, biopsy: Chronic gastritis. See comment. B. Gastric polyp, biopsy: Fundic gland polyp. C. Gastroesophageal junction, biopsy: Mild chronic inflammation. Focal changes of reflux. No evidence of goblet cell metaplasia. See comment. D. Sigmoid polyp, biopsy: Tubular adenoma. E. Cecal polyp, biopsy: Fragments of tubular adenoma. COMMENT A. The results of immunohistochemistry for Helicobacter pylori will be reported separately ([id number]). C. Alcian blue/PAS stain with matched control is used in the evaluation of the specimen. MICROSCOPIC DESCRIPTION Slides are reviewed. GROSS DESCRIPTION A. Received in fixative is one container labeled with the patient's name and designated Antrum biopsy. The specimen consists of two irregular fragments of light hutchinson soft tissue that in aggregate measure 2.0 x 0.5 cm. The specimen is totally submitted in one cassette. B. Received in fixative is one container labeled with the patient's name and designated Gastric polyp biopsy. The specimen consists of multiple irregular fragments of light hutchinson soft tissue that in aggregate measure 2.0 x 0.75 cm. The specimen is totally submitted in one cassette. C. Received in fixative is one container labeled with the patient's name and designated GE junction biopsy. The specimen consists of multiple irregular fragments of light hutchinson soft tissue that in aggregate measure 0.2 x 1.5 cm. The specimen is totally submitted in one cassette. D. Received in fixative is one container labeled with the patient's name and designated Sigmoid polyp biopsy. The specimen consists of one irregular fragment of light hutchinson soft tissue that in aggregate measure 0.2 x 1.0 cm. The specimen is totally submitted in one cassette. E. multiple irregular fragments of light hutchinson soft tissue that in aggregate measure 0.2 x 2.0 cm. The specimen is totally submitted in one cassette. 05/24/2024 TC:3 CPT:[id number]
[2024-05-23 15:06] VITALS: BP 127/57; BP 95/49; PULSE 74; RESP 16; TEMP 36.8; O2SAT 99
[2024-05-23 15:09] VITALS: BP 95/49; PULSE 75; RESP 18; TEMP 36.8; O2SAT 99
--- NOTE | 2024-05-23 15:09 | PCM.POST.ANE ---
Anesthesia: Postop Eval I Current Vital Signs Temperature: 98.2 F Pulse Rate: 75 Blood Pressure: 95/49 Respiratory Rate: 18 Pulse Ox: 99 Assessment Airway patent: Yes Spontaneous unlabored respirations: Yes nausea: No Vomiting: No Anesthesia Complication: No Fluid Hydration Crystalloid volume administer (ml): 0 Total IV fluid infused: 0 Progress Note Anesthesia document: Postop Eval 1 completed: Yes
[2024-05-23 15:11] VITALS: BP 127/57; BP 93/50; PULSE 75; RESP 16; O2SAT 100
--- NOTE | 2024-05-23 15:12 | OP.EGD_ITS ---
Patient Name: Danette Dang Procedure Date: 05/23/2024 2:06 PM Date of : 1945 Age: 79 Procedure: Upper GI endoscopy Indications: Follow-up of Nguyen's esophagus Providers: Flo Zamudio MD Referring MD: Tami Chang Medicines: Monitored Anesthesia Care Patient Profile: Refer to note in patient chart for documentation of history and physical. Complications: No immediate complications. Estimated blood loss: Minimal. Procedure: Pre-Anesthesia Assessment: - Prior to the procedure, a History and Physical was performed, and patient medications and allergies were reviewed. The patient's tolerance of previous anesthesia was also reviewed. The risks and benefits of the procedure and the sedation options and risks were discussed with the patient. All questions were answered, and informed consent was obtained. Prior Anticoagulants: The patient has taken no anticoagulant or antiplatelet agents. ASA Grade Assessment: II - A patient with mild systemic disease. After reviewing the risks and benefits, the patient was deemed in satisfactory condition to undergo the procedure. After obtaining informed consent, the endoscope was passed under direct vision. Throughout the procedure, the patient's blood pressure, pulse, and oxygen saturations were monitored continuously. The gastroscope was introduced through the mouth, and advanced to the duodenal bulb. The upper GI endoscopy was accomplished without difficulty. The patient tolerated the procedure well. Moderate Sedation: See the other procedure note for documentation of moderate sedation with intraservice time. Scope In: 2:17:42 PM Scope Out: 2:25:13 PM Total Procedure Duration Time 0 hours 7 minutes 31 seconds Findings: The duodenal bulb was normal. Multiple 6 mm pedunculated polyps with no bleeding and no stigmata of recent bleeding were found in the stomach. The polyp was removed with a cold biopsy forceps. Resection and retrieval were complete. Verification of patient identification for the specimen was done by the biological technician using the patient's name, date and medical record number. Estimated blood loss was minimal. The exam was otherwise without abnormality. Biopsies at antrum were performed to rule out HPylori. No gross lesions were noted in the entire esophagus. Mucosa was biopsied with a cold forceps for histology randomly at the gastroesophageal junction. Verification of patient identification for the specimen was done by the biological technician using the patient's name, date and medical record number. Estimated blood loss was minimal. The exam was otherwise without abnormality. Impression: - Normal duodenal bulb. - Multiple gastric polyps. Resected and retrieved. - The examination was otherwise normal. - No gross lesions in the entire esophagus. Biopsied. - The examination was otherwise normal. Recommendation: - Discharge patient to home (ambulatory). - High fiber diet indefinitely. - Continue present medications. - Await pathology results. - Repeat upper endoscopy in 3 years for surveillance. Procedure Code(s): --- Professional --- 76043, Esophagogastroduodenoscopy, flexible, transoral; with biopsy, single or multiple Diagnosis Code(s): --- Professional --- K31.7, Polyp of stomach and duodenum K22.70, Nguyen's esophagus without dysplasia CPT copyright 2021 [employer]. All rights reserved. The codes documented in this report are preliminary and upon datastage architect review may be revised to meet current compliance requirements. Flo Zamudio MD 05/23/2024 3:12:03 PM This report has been signed electronically. Number of Addenda: 0 Note Initiated On: 05/23/2024 2:06 PM
--- NOTE | 2024-05-23 15:12 | OP.CCLET_ITS ---
05/23/2024 Tami Chang [address] [place] [address] Re : Upper GI endoscopy procedure for [facility] Dear Dr. Chang This procedure was performed on Thursday, May 23, 2024. My impressions and recommendations are as follows: Impressions : - Normal duodenal bulb. - Multiple gastric polyps. Resected and retrieved. - The examination was otherwise normal. - No gross lesions in the entire esophagus. Biopsied. - The examination was otherwise normal. Recommendations : - Discharge patient to home (ambulatory). - High fiber diet indefinitely. - Continue present medications. - Await pathology results. - Repeat upper endoscopy in 3 years for surveillance. My findings are described in the full procedure note, which is enclosed. If I can be of further assistance, please feel free to contact me at . Sincerely, Flo Zamudio MD 05/23/2024 3:12:03 PM This report has been signed electronically.
[2024-05-23 15:16] VITALS: BP 102/55; BP 127/57; PULSE 77; RESP 16; TEMP 36.8; O2SAT 100
--- NOTE | 2024-05-23 15:17 | OP.COLON_ITS ---
Patient Name: Danette Dang Procedure Date: 05/23/2024 2:28 PM Date of : 1945 Age: 79 Procedure: Colonoscopy Indications: High risk colon cancer surveillance: Personal history of colonic polyps Providers: Flo Zamudio MD Referring MD: Tami Chang Medicines: Monitored Anesthesia Care Patient Profile: Refer to note in patient chart for documentation of history and physical. Last Colonoscopy: 5 years ago. Complications: No immediate complications. Estimated blood loss: Minimal. Procedure: Pre-Anesthesia Assessment: - Prior to the procedure, a History and Physical was performed, and patient medications and allergies were reviewed. The patient's tolerance of previous anesthesia was also reviewed. The risks and benefits of the procedure and the sedation options and risks were discussed with the patient. All questions were answered, and informed consent was obtained. Prior Anticoagulants: The patient has taken no anticoagulant or antiplatelet agents. ASA Grade Assessment: II - A patient with mild systemic disease. After reviewing the risks and benefits, the patient was deemed in satisfactory condition to undergo the procedure. - Prior to the procedure, a History and Physical was performed, and patient medications and allergies were reviewed. The patient's tolerance of previous anesthesia was also reviewed. The risks and benefits of the procedure and the sedation options and risks were discussed with the patient. All questions were answered, and informed consent was obtained. Prior Anticoagulants: The patient has taken no anticoagulant or antiplatelet agents. ASA Grade Assessment: II - A patient with mild systemic disease. After reviewing the risks and benefits, the patient was deemed in satisfactory condition to undergo the procedure. After I obtained informed consent, the scope was passed under direct vision. Throughout the procedure, the patient's blood pressure, pulse, and oxygen saturations were monitored continuously. The colonoscope was introduced through the anus and advanced to the cecum, identified by the appendiceal orifice, IC valve and transillumination. The ileocecal valve, appendiceal orifice, and rectum were photographed. The entire colon was well visualized. The colonoscopy was somewhat difficult due to a tortuous colon. The patient tolerated the procedure well. The quality of the bowel preparation was adequate. Moderate Sedation: See the other procedure note for documentation of moderate sedation with intraservice time. Scope In: 2:29:19 PM Scope Withdrawal Time 0 hours 15 minutes 19 seconds Scope Out: 3:01:47 PM Total Procedure Duration Time 0 hours 32 minutes 28 seconds Findings: The perianal and digital rectal examinations were normal. A 4 mm polyp was found in the sigmoid colon. The polyp was semi-pedunculated. The polyp was removed with a cold biopsy forceps. Resection and retrieval were complete. Verification of patient identification for the specimen was done by the alarm field technician using the patient's name, date and medical record number. Estimated blood loss was minimal. A 15 mm polyp was found in the cecum. The polyp was sessile. The polyp was removed with a hot snare. Resection and retrieval were complete. Verification of patient identification for the specimen was done by the alarm field technician using the patient's name, date and medical record number. Estimated blood loss was minimal. The exam was otherwise without abnormality on direct and retroflexion views. Impression: - One 4 mm polyp in the sigmoid colon, removed with a cold biopsy forceps. Resected and retrieved. - One 15 mm polyp in the cecum, removed with a hot snare. Resected and retrieved. - The examination was otherwise normal on direct and retroflexion views. Recommendation: - Discharge patient to home (ambulatory). - High fiber diet. - Await pathology results. - Repeat colonoscopy in 1 year for surveillance. - Return to my office PRN. - Continue present medications. Procedure Code(s): --- Professional --- 83033, Colonoscopy, flexible; with removal of tumor(s), polyp(s), or other lesion(s) by snare technique [id number], 59, Colonoscopy, flexible; with biopsy, single or multiple Diagnosis Code(s): --- Professional --- Z86.010, Personal history of colonic polyps D12.0, Benign neoplasm of cecum D12.5, Benign neoplasm of sigmoid colon CPT copyright 2021 [employer]. All rights reserved. The codes documented in this report are preliminary and upon cyber defense forensics analyst review may be revised to meet current compliance requirements. Flo Zamudio MD 05/23/2024 3:16:42 PM This report has been signed electronically. Number of Addenda: 0 Note Initiated On: 05/23/2024 2:28 PM
--- NOTE | 2024-05-23 15:17 | OP.CCLET_ITS ---
05/23/2024 Tami Chang [address] [place] [address] Re : Colonoscopy procedure for [facility] Dear Dr. Chang This procedure was performed on Thursday, May 23, 2024. My impressions and recommendations are as follows: Impressions : - One 4 mm polyp in the sigmoid colon, removed with a cold biopsy forceps. Resected and retrieved. - One 15 mm polyp in the cecum, removed with a hot snare. Resected and retrieved. - The examination was otherwise normal on direct and retroflexion views. Recommendations : - Discharge patient to home (ambulatory). - High fiber diet. - Await pathology results. - Repeat colonoscopy in 1 year for surveillance. - Return to my office PRN. - Continue present medications. My findings are described in the full procedure note, which is enclosed. If I can be of further assistance, please feel free to contact me at . Sincerely, Flo Zamudio MD 05/23/2024 3:16:42 PM This report has been signed electronically.
[2024-05-23 15:50] VITALS: BP 127/57
--- NOTE | 2024-05-23 23:21 | POSTOPAN2_ITS ---
Anesthesia Postop Eval I Sum Postop Eval Completion status Anesthesia document: Postop Eval 1 completed: Yes Anesthesia Postop Eval I Summary Anesthesia Postop Eval I Summary: Anesthesia Postop Eval I: Assessment Summary Airway patent Yes 05/23/24 15:09 NATURAL GAS TREATING UNIT OPERATOR.CSIR Spontaneous unlabored Yes 05/23/24 15:09 NATURAL GAS TREATING UNIT OPERATOR.CSIR respirations Mental status nausea No 05/23/24 15:09 NATURAL GAS TREATING UNIT OPERATOR.CSIR Vomiting No 05/23/24 15:09 NATURAL GAS TREATING UNIT OPERATOR.CSIR Anesthesia Postop Eval I: Fluid Summary Crystalloid volume administer 0 05/23/24 15:09 NATURAL GAS TREATING UNIT OPERATOR.CSIR (ml) Colloids volume administered ( ml) Blood Product volume administered (ml) Total IV fluid infused 0 05/23/24 15:09 NATURAL GAS TREATING UNIT OPERATOR.CSIR Anesthesia Postop Eval I: Summary Notes Anesthesia Complication No 05/23/24 15:09 NATURAL GAS TREATING UNIT OPERATOR.CSIR Anesthesia Complication Comment: Post-operative progress note Anesthesia: Postop Eval II Evaluation Mental status: Awake and Calm Pain Level: 0 nausea: No Vomiting: No Complications Anesthesia Complication: No
--- NOTE | 2024-05-23 23:21 | PCM.POSTANE2 ---
Anesthesia Postop Eval I Sum Postop Eval Completion status Anesthesia document: Postop Eval 1 completed: Yes Anesthesia Postop Eval I Summary Anesthesia Postop Eval I Summary: Anesthesia Postop Eval I: Assessment Summary Airway patent Yes 05/23/24 15:09 ELECTRONICS PRODUCTION SUPERVISOR.CSIR Spontaneous unlabored Yes 05/23/24 15:09 ELECTRONICS PRODUCTION SUPERVISOR.CSIR respirations Mental status nausea No 05/23/24 15:09 ELECTRONICS PRODUCTION SUPERVISOR.CSIR Vomiting No 05/23/24 15:09 ELECTRONICS PRODUCTION SUPERVISOR.CSIR Anesthesia Postop Eval I: Fluid Summary Crystalloid volume administer 0 05/23/24 15:09 ELECTRONICS PRODUCTION SUPERVISOR.CSIR (ml) Colloids volume administered ( ml) Blood Product volume administered (ml) Total IV fluid infused 0 05/23/24 15:09 ELECTRONICS PRODUCTION SUPERVISOR.CSIR Anesthesia Postop Eval I: Summary Notes Anesthesia Complication No 05/23/24 15:09 ELECTRONICS PRODUCTION SUPERVISOR.CSIR Anesthesia Complication Comment: Post-operative progress note Anesthesia: Postop Eval II Evaluation Mental status: Awake and Calm Pain Level: 0 nausea: No Vomiting: No Complications Anesthesia Complication: No
== END 2024-05-23 15:57 | disposition home or self-care (01) ==
LOC: EN 12:20 → AC 12:22
PROVIDERS: PCP Family Medicine; Referring Provider Family Medicine; Visit Provider Surgery
PROC: 0DJD8ZZ Inspection of Lower Intestinal Tract, Via Natural or Artificial Opening Endoscopic (ICD-10-PCS; CPT 45378; principal; 2024-05-23 13:25)
DX: Z12.11 Encounter for screening for malignant neoplasm of colon (principal); D12.0 Benign neoplasm of cecum; D12.5 Benign neoplasm of sigmoid colon; Z87.891 Personal history of nicotine dependence; I10 Essential (primary) hypertension; Z80.0 Family history of malignant neoplasm of digestive organs; K31.7 Polyp of stomach and duodenum; K21.00 Gastro-esophageal reflux disease with esophagitis, without bleeding; Z79.899 Other long term (current) drug therapy; Z86.0100 Personal history of colon polyps, unspecified; K29.50 Unspecified chronic gastritis without bleeding; Z87.19 Personal history of other diseases of the digestive system
CPT/HCPCS: 45380; 45385; 43239; 88305; 88312; 88342; A4216; J2405

== ENCOUNTER 2024-06-04 08:06 | Emergency (ER) | payer MEDICARE, SELFPAY ==
[2024-06-04 08:07] VITALS: BP 128/92; PULSE 98; RESP 18; TEMP 37.3; O2SAT 98; BMI 28.7
--- NOTE | 2024-06-04 08:49 | EKG12_ITS ---
Test Reason : CP Blood Pressure : */* mmHG Vent. Rate : 79 BPM Atrial Rate : 79 BPM P-R Int : 138 ms QRS Dur : 90 ms QT Int : 384 ms P-R-T Axes : 6 26 11 degrees QTcB Int : 440 ms Normal sinus rhythm Normal ECG Confirmed by PALMIRA YOUNG, ANATOLY ([id number]), primer expeditor and drier EDELMIRA FISHER ([id number]) on 06/05/2024 7:55:57 AM Referred By: Confirmed By: ANATOLY CHAVIS MD
--- NOTE | 2024-06-04 08:49 | EDS_ITS ---
HPI History of Present Illness Chief Complaint: Chest Pain Informant: patient, spouse/S.O. and family Narrative Narrative: Very pleasant 79-year-old female presenting to the emergency department for the evaluation of chest pain. Patient notes over the past several days she has had a cold associated with cough. [facility] and COVID influenza RSV testing was negative. Patient notes some low-grade temperatures. Patient states that yesterday she developed the pain in the right mid back radiating towards the right anterior chest wall. It is worse with certain movements and with touch. She does not feel short of breath. Patient with a history of left breast cancer with liver metastasis. She has a right-sided chest port. [facility] Medical History Wears glasses Post-menopausal Cancer Depression Anxiety Alcohol use Thyroid disease Anemia Easy bruising Excessive bleeding Back pain TIA (transient ischemic attack) History of hiatal hernia History of ulceration History of IBS Gastric reflux Former smoker Shortness of breath on exertion History of echocardiogram Hypertension History of irregular heartbeat History of rheumatic fever LUQ pain 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 Epigastric abdominal pain Liver metastasis 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 Wears dentures Sleep apnea History of TIA (transient ischemic attack) History of thyroid disease Back pain Neck pain Severe headache Stomach ulcer History of cancer Arthritis History of hypertension Home Medications ?Medication ?Instructions ?Recorded ?Last Taken ?Type fluoxetine 40 mg capsule 40 mg PO QDAY 06/16/17 Unknown History lisinopril 20 mg tablet 20 mg PO DAILY 09/25/20 05/23/24 History levothyroxine 125 mcg tablet 112 mcg PO DAILY 30 days #27 tabs 06/11/21 05/23/24 History hydrocodone-acetaminophen 5-325mg 1 tab PO Q6H PRN pain 07/16/22 Unknown History 5mg-325mg alprazolam 0.5 mg tablet 0.5 mg PO DAILY PRN anxiety 07/21/22 Unknown History letrozole 2.5 mg tablet 2.5 mg PO QDAY 02/16/24 05/23/24 History mwgqeopw-ybllbwhno-ejbhfptl 3.5 1 drp ophthalmic (eye) DAILY 02/16/24 Unknown History mg/mL-10,000 unit/mL-0.1% eye drops amlodipine 5 mg tablet 5 mg PO QDAY 04/30/24 Unknown History clopidogrel 75 mg tablet 75 mg PO QDAY 04/30/24 05/17/24 History esomeprazole magnesium 20 mg 20 mg PO QDAY 04/30/24 05/17/24 History capsule,delayed release (Nexium) sennosides 8.6 mg tablet (Senokot) 8.6 mg PO DAILY PRN constipation 04/30/24 Unknown History liothyronine 5 mcg tablet 5 mcg PO DAILY 05/21/24 05/23/24 History zolpidem 10 mg tablet 10 mg PO QHS 05/21/24 Unknown History Allergy/AdvReac Type Severity Reaction Status Date / Time shellfish derived Allergy Severe throat Verified 06/04/24 08:07 swelling adhesive tape AdvReac Rash Verified 06/04/24 08:07 Family History Mother Colon cancer passed from recurrence Thyroid disorder Father Hypertension CVA (cerebral vascular accident) Sister Breast cancer, Onset Age: 87 Aunt Colon cancer paternal Surgical History History of lumpectomy History of back surgery History of thyroid surgery Social History household members: spouse Smoking Status: Former smoker how long ago did patient quit smoking: >50 years ago; off and on for 2 years, socially only alcohol intake: current alcohol intake frequency: 0-2 drinks per day Alcohol type: wine details: socially substance use type: does not use additional social history: denies vaping, denies marijuana, denies edibles, denies aspirin and ibuprofen use ROS ROS ED Constitutional Constitutional ED: Denies chills or weight loss Eyes Eyes: Denies change in vision or diplopia ENT ENT ED: Reports rhinorrhea and sore throat; Denies ear pain Cardiovascular Cardiovascular: Reports as per HPI and chest pain; Denies orthopnea, palpitations or racing heartbeat Respiratory/Chest Respiratory/Chest: Reports cough; Denies dyspnea or orthopnea Gastrointestinal Gastrointestinal: Denies abdominal pain, diarrhea, nausea or vomiting Genitourinary Genitourinary ED: Denies dysuria, hematuria or urinary frequency Musculoskeletal Musculoskeletal: Reports back pain; Denies arthralgias or myalgias Integumentary Denies abscess or rash Neurologic Neurologic: Denies headache(s) or weakness Psychiatric Psychiatric: Denies anxiety, depression, suicidal ideation or suicidal thoughts Endocrine Endocrinology: Denies polydipsia, polyphagia or polyuria Allergic/Immunologic Allergic/Immunologic ED: Denies mouth swelling, tongue swelling or urticaria EXAM Physical Exam Const Vital Signs: 06/04/24 08:07 06/04/24 08:07 06/04/24 10:01 Temperature 99.1 F 97.8 F Temperature Source Oral Pulse Rate 98 90 Respiratory Rate 18 18 Respiratory Effort Normal Blood Pressure 128/92 H 134/78 H Blood Pressure Mean 104 96 Pulse Ox 98 99 Oxygen Delivery Method Room Air Positive well nourished and well developed General Appearance ED: well developed and NAD HEENT Reports normocephalic, head/scalp atraumatic and moist mucous membranes Eyes PERRL and EOMs intact bilaterally Neck no lymphadenopathy, supple and no JVD Chest Wall Chest Narrative: Right anterior costochondral tenderness to palpation in the mid ribs and tender posteriorly at the rib angles of the associated same ribs. There are no rashes noted. Right chest port without erythema or obvious complication. Resp normal respiratory effort and clear to auscultation bilaterally Cardio regular rate, regular rhythm and no murmurs GI normal to inspection, nondistended, normoactive bowel sounds and non-tender Palpation: soft Back/Spine no CVA tenderness and normal ROM Extremity normal to inspection General Extremety ED: Negative for edema General Extremity: Negative for edema Neuro oriented x3 and CN's II-XII intact bilaterally Sensorium / Orientation: alert Motor Exam: strength 5/5 throughout Psych mental status grossly normal Mood & Affect: Negative for depressed or tearful Skin no rashes or lesions noted and no wounds MDM MDM MDM Narrative Medical decision making narrative: Differential diagnosis includes but not limited to musculoskeletal chest pain pneumothorax pneumonia pleural effusion bronchospasm pulmonary embolism acute coronary syndrome aortic dissection/aneurysm EKG is a normal sinus rhythm with no concerning ST segments. White count is normal at 10.4 hemoglobin 11.6 platelet count 361. D-dimer is normal 0.48. My independent interpretation of the chest x-ray is no acute process. Clinically her chest pain is reproducible with palpation and certain movements. Given the above workup I think acute emergency is less likely and this is more musculoskeletal due to the cough. Recommend heat anti-inflammatories if able. Chest wall support discussed with patient. History & Record Review Discussion w/independent historian: Patient and Family Lab Data Attestation: I reviewed the patient's lab results. Labs: Laboratory Results - last 24 hr 06/04/24 08:43 WBC 10.4 RBC 3.94 L Hgb 11.6 L Hct 34.9 L MCV 88.6 MCH 29.4 MCHC 33.2 RDW Std Deviation 48.9 H RDW Coeff of James 15.0 H Plt Count 361 MPV 9.4 Immature Gran % (Auto) 0.500 Neut % (Auto) 76.3 H Lymph % (Auto) 14.8 L Brooks % (Auto) 6.4 Eos % (Auto) 1.3 Baso % (Auto) 0.7 Absolute Neuts (auto) 7.9 H Absolute Lymphs (auto) 1.54 Nucleated RBC % 0 D-Dimer Quant (PE/DVT) 0.48 Sodium 134 L Potassium 3.5 Chloride 102 Carbon Dioxide 23.0 Anion Gap 9 BUN 12 Creatinine 0.70 Estim Creat Clear Calc 50.64 Est GFR (MDRD) Af Amer 104 Est GFR (MDRD) Non-Af 86 BUN/Creatinine Ratio 17.1 Glucose 120 H Calcium 8.7 Troponin I High Sens 5 Radiography Diagnostic Testing: Clinical Impression(s) from Imaging Studies Chest X-Ray 06/04/24 08:50 IMPRESSION: COPD/emphysema Electronically Signed: Favio Gerber MD at 10:45 EST Reading Location ID and State: [address] [place] [address] , Service support , EKG Initial EKG: Attestation: I personally reviewed and interpreted this EKG as follows: Comments: Normal sinus rhythm ventricular 79 bpm Discharge Plan Triage Chief Complaint: Chest Pain ED Provider: Kristofer Hernandez Dx/Rx/DC Orders Clinical Impression: Acute chest pain, Viral respiratory illness Instructions: ED Chest Wall Strain Prescriptions: No Action fluoxetine 40 mg capsule 40 mg PO QDAY levothyroxine 125 mcg tablet 112 mcg PO DAILY 30 Days Qty: 27 Patient Comments: TAKE 1 TABLET EVERY DAY clopidogrel 75 mg tablet 75 mg PO QDAY sennosides [Senokot] 8.6 mg tablet 8.6 mg PO DAILY PRN (Reason: constipation) hydrocodone-acetaminophen 5-325 mg tablet 1 tab PO Q6H PRN (Reason: pain) Patient Comments: TAKE 1-2 TABLETS BY MOUTH EVERY 6 HOURS NEEDED FOR PAIN FOR UP TO 5 DAYS. alprazolam 0.5 mg tablet 0.5 mg PO DAILY PRN (Reason: anxiety) neomycin-polymyxin B-dexameth 3.5mg/mL-10,000 unit/mL-0.1 % drops,suspension 1 drp ophthalmic (eye) DAILY letrozole 2.5 mg tablet 2.5 mg PO QDAY amlodipine 5 mg tablet 5 mg PO QDAY esomeprazole magnesium [Nexium] 20 mg capsule,delayed release(DR/EC) 20 mg PO QDAY lisinopril 20 MG tablet 20 mg PO DAILY liothyronine 5 mcg tablet 5 mcg PO DAILY zolpidem 10 mg tablet 10 mg PO QHS Primary Care Provider: Tami Chang Referrals: Tami Chang MD [Primary Care Provider] - As Needed Print Language: Israeli Disposition Disposition: Home, Self Care Discharge Date/Time: 06/04/24 10:03
--- NOTE | 2024-06-04 08:50 | RAD_ITS ---
STUDY: X-RAY CHEST REASON FOR EXAM: Female, 79 years old. chest pain CHEST PAIN, COLD SYMPTOMS TECHNIQUE: Single AP portable view of the chest. COMPARISON: CT of the chest dated May 25, 2021 FINDINGS: COPD/emphysematous changes. Stable right chest port and catheter. Redemonstration of mild scattered interstitial fibrotic changes of the lungs. There is no demonstrated pleural abnormality. Normal size heart. Normal mediastinum and maurice. Normal visualized pulmonary arteries. There is atherosclerotic tortuosity of the aortic arch and descending thoracic aorta. There are diffuse degenerative changes of the visualized thoracic spine. There is degenerative osteoarthritis of the bilateral shoulders. There is no demonstrated abnormality of the visualized soft tissue structures of the upper abdomen. RAD/Chest 1 View (Portable) IMPRESSION: COPD/emphysema Electronically Signed: Favio Gerber MD at 10:45 EST ,
[2024-06-04 09:17] LABS: Absolute Lymphocyte Count 1.54 X10^3/uL (0.83-4.51); Absolute Neutrophil Count 7.9 X10^3/uL (2.0-7.7); Basophil# 0.07 X10^3/uL; Basophil% 0.7 % (0-1); Eosinophil# 0.13 X10^3/uL; Eosinophils% 1.3 % (0-5); Hematocrit 34.9 % (37-47); Hemoglobin 11.6 g/dL (12.0-15.0); Lymphocyte # 1.54 X10^3/ul (0.83-4.51); Lymphocyte % 14.8 % (19-41); Mean Corp Hgb Conc 33.2 g/dL (32-36); Mean Corpuscular Hgb 29.4 pg (27.0-32.0); Mean Corpuscular Volume 88.6 fL (81-99); Mean Platelet Vol. 9.4 fl (6.2-12.0); Monocyte# 0.67 X10^3/uL; Monocyte% 6.4 % (0-10); NRBC Flagged by Analyzer 0 % (0-5); Neutrophil # 7.93 X10^3/uL (2.7-7.7); Neutrophil % 76.3 % (47-70); Platelet Count 361 K/mm3 (150-450); RBC Distribution Width SD 48.9 fl (35.1-43.9); Red Blood Count 3.94 M/mm3 (4.2-5.4); White Blood Count 10.4 K/mm3 (4.4-11.0)
[2024-06-04 09:25] LABS: D-Dimer Quantitative (DVT/PE) 0.48 FEU/ug/m (0.27-0.49)
[2024-06-04 09:34] LABS: Anion Gap 9 (5-15); BUN 12 mg/dL (7-18); BUN/Creat Ratio 17.1 RATIO (10-20); Calcium,Total 8.7 mg/dL (8.5-10.1); Chloride 102 mmol/L (98-107); EST Glomerular Filtration Rate 86 mL/min (>60); Est Glom Filt Rate - Afr Amer 104 mL/min (>60); Estimated Creatinine Clearance 50.64 ml/min; Glucose 120 mg/dL (74-106); Potassium 3.5 mmol/L (3.5-5.1); Sodium Level 134 mmol/L (136-145); Troponin-I HS 5 pg/mL (3.0-54.0)
[2024-06-04 10:01] VITALS: BP 134/78; PULSE 90; RESP 18; TEMP 36.6; O2SAT 99
== END 2024-06-04 10:03 | disposition home or self-care (01) ==
PROVIDERS: Emergency Provider Emergency Medicine; PCP Family Medicine; Visit Provider Emergency Medicine
DX: B34.9 Viral infection, unspecified (principal); C78.7 Secondary malignant neoplasm of liver and intrahepatic bile duct; J44.9 Chronic obstructive pulmonary disease, unspecified; C50.912 Malignant neoplasm of unspecified site of left female breast; R07.89 Other chest pain; J34.89 Other specified disorders of nose and nasal sinuses; R05.9 Cough, unspecified; J02.9 Acute pharyngitis, unspecified; I10 Essential (primary) hypertension; F41.9 Anxiety disorder, unspecified; F32.A Depression, unspecified; K21.9 Gastro-esophageal reflux disease without esophagitis; E07.9 Disorder of thyroid, unspecified; G47.30 Sleep apnea, unspecified; Z95.9 Presence of cardiac and vascular implant and graft, unspecified; Z86.73 Personal history of transient ischemic attack (TIA), and cerebral infarction without residual deficits; Z79.890 Hormone replacement therapy; Z79.02 Long term (current) use of antithrombotics/antiplatelets; Z79.899 Other long term (current) drug therapy; Z87.891 Personal history of nicotine dependence
CPT/HCPCS: 36591; 71045; 80048; 84484; 85025; 85379; 93005; 99285; A4216

== ENCOUNTER 2024-08-25 13:24 | Observation (INO) | payer MEDICARE, SELFPAY ==
[2024-08-25] VITALS (7 sets, daily range): BP systolic 141–166; BP diastolic 71–129; PULSE 72–104; RESP 14–18; TEMP 36.7–37.2; O2SAT 96–100; BMI 30.6; BMI 28.5
--- NOTE | 2024-08-25 13:45 | CT_ITS ---
PROCEDURE: SPINE LUMBAR WITHOUT CONTRAST 08/25/2024 REASON FOR EXAM: 79-year-old female, severe back pain/spasms today, history of breast and liver cancer. Unable to ambulate this morning. TECHNIQUE: Lumbar spine CT without contrast. Coronal and Sagittal reconstruction series were provided. One or more dose reduction techniques were used (e.g., Automated exposure control, adjustment of the mA and/or kV according to patient size, use of iterative reconstruction technique COMPARISON: MRI L-spine 11/12/2019. RADIATION DOSE SUMMARY: CTDlvol: 21 mGy DLP: 703 mGycm FINDINGS: Vertebrae: Diffuse osseous demineralization. No acute fracture identified or traumatic listhesis. Prior posterior spinal fixation and instrumentation of the left L4-5 vertebral bodies with interbody disc spacer. Alignment: Trace anterolisthesis of L4 onto L5. Moderate multilevel degenerative disc disease, greatest at T12-L1. Multilevel posterior disc osteophytes and facet hypertrophy resulting in moderate central canal stenosis, greatest at L2-3, and at least moderate bilateral neural foraminal stenosis, greatest at 2 L1-2. Sacrum: The SI joints are maintained. Moderate retained fecal material throughout the visualized colon. The urinary bladder is distended. Calcific plaque of the aortoiliac vessels. CT/Spine Lumbar without Contrast IMPRESSION: 1. No acute lumbar fracture. 2. 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 Reading Location: [id number]
[2024-08-25] MEDS: Morphine 4 MG/ML Syringe IV ×2 (13:51→14:48)
[2024-08-25] MEDS: Ondansetron 4 MG/2 ML Vial IV (13:51)
[2024-08-25] MEDS: diazePAM 5 MG Tablet 2.5 MG PO ×2 (13:52→14:47)
[2024-08-25 14:09] LABS: Absolute Lymphocyte Count 1.31 X10^3/uL (0.83-4.51); Basophil# 0.06 X10^3/uL; Basophil% 0.5 % (0-1); Eosinophil# 0.03 X10^3/uL; Eosinophils% 0.2 % (0-5); Hematocrit 34.8 % (37-47); Hemoglobin 11.9 g/dL (12.0-15.0); Lymphocyte # 1.31 X10^3/ul (0.83-4.51); Lymphocyte % 9.9 % (19-41); Mean Corp Hgb Conc 34.2 g/dL (32-36); Mean Corpuscular Hgb 29.7 pg (27.0-32.0); Mean Corpuscular Volume 86.8 fL (81-99); Mean Platelet Vol. 9.5 fl (6.2-12.0); Monocyte# 0.73 X10^3/uL; Monocyte% 5.5 % (0-10); NRBC Flagged by Analyzer 0 % (0-5); Neutrophil % 83.4 % (47-70); Platelet Count 358 K/mm3 (150-450); RBC Distribution Width CV 15.3 % (11.6-14.6); RBC Distribution Width SD 48.9 fl (35.1-43.9); Red Blood Count 4.01 M/mm3 (4.2-5.4); White Blood Count 13.2 K/mm3 (4.4-11.0)
--- NOTE | 2024-08-25 14:17 | ED.VIS.BACK ---
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 She was able to get up and get to her recliner and took a hydrocodone but then had increased muscle spasms and was unable to get up. Her called the squad to bring her in. She has a history of 2 lumbar surgeries with the most recent being a discectomy 2020 at [facility]. She normally manages her pain with Tylenol or hydrocodone for breakthrough pain. She denies fall or injury. She has no pain radiating into the legs. No weakness or numbness or tingling or saddle anesthesia or bladder bowel incontinence. No fever or urinary symptoms. PFSH <ZARINA Lyons - Last Filed: 08/25/24 16:28> [facility], [facility] Medical History (Updated 08/27/24 @ 13:[address] 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 Epigastric abdominal pain Liver metastasis 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 Wears dentures Sleep apnea History of TIA (transient ischemic attack) History of thyroid disease Back pain Neck pain Severe headache Stomach ulcer History of cancer Arthritis History of hypertension Medical History no medical history Home Medications ?Medication ?Instructions ?Recorded ?Last Taken ?Type fluoxetine 40 mg capsule 40 mg PO DAILY 06/16/17 08/25/24 History lisinopril 20 mg tablet 20 mg PO DAILY 09/25/20 08/25/24 History levothyroxine 125 mcg tablet 112 mcg PO DAILY 30 days #27 tabs 06/11/21 08/25/24 History hydrocodone-acetaminophen 5-325mg 1 tab PO Q6H PRN pain 07/16/22 08/25/24 History 5mg-325mg alprazolam 0.5 mg tablet 0.5 mg PO DAILY PRN anxiety 07/21/22 Unknown History letrozole 2.5 mg tablet 2.5 mg PO DAILY 02/16/24 08/25/24 History amlodipine 5 mg tablet 5 mg PO QHS 04/30/24 08/24/24 History clopidogrel 75 mg tablet 75 mg PO DAILY 04/30/24 08/25/24 History esomeprazole magnesium 20 mg 20 mg PO DAILY 04/30/24 08/25/24 History capsule,delayed release (Nexium) liothyronine 5 mcg tablet 5 mcg PO DAILY 05/21/24 08/25/24 History zolpidem 10 mg tablet 10 mg PO QHS 05/21/24 08/24/24 History acetaminophen 650 mg 650 mg PO PRN ARTHRITIS 08/25/24 08/24/24 History tablet,extended release cholecalciferol (vitamin D3) 50 50 mcg PO DAILY 08/25/24 08/24/24 History mcg (2,000 unit) capsule ferrous sulfate 325 mg (65 mg 325 mg PO DAILY 08/25/24 08/24/24 History iron) tablet (Feosol) multivitamin (Daily Multi-Vitamin 1 tab PO DAILY 08/25/24 08/24/24 History tablet) psyllium husk 3.4 gram/5.4 gram 1 tsp PO DAILY 08/25/24 08/24/24 History oral powder (Metamucil) Allergy/AdvReac Type Severity Reaction Status Date / Time shellfish derived Allergy Severe throat Verified 08/25/24 13:29 swelling adhesive tape AdvReac Rash Verified 08/25/24 13:29 Family History Mother Colon cancer passed from recurrence Thyroid disorder Father Hypertension CVA (cerebral vascular accident) Sister Breast cancer, Onset Age: 87 Aunt Colon cancer paternal Surgical History History of lumpectomy History of back surgery History of thyroid surgery Surgical History no surgical history Social History household members: spouse Smoking Status: Former smoker how long ago did patient quit smoking: >50 years ago; off and on for 2 years, socially only alcohol intake: current alcohol intake frequency: 0-2 drinks per day Alcohol type: wine details: socially substance use type: does not use additional social history: denies vaping, denies marijuana, denies edibles, denies aspirin and ibuprofen use ROS <ZARINA Lyons - Last Filed: 08/25/24 16:28> ROS ED ROS Narrative Constitutional: Negative for fever, chills, malaise. CVS: Negative for chest pain. Respiratory: Negative for shortness of breath. GI: Negative for abdominal pain, nausea, vomiting. : Negative for dysuria, hematuria or frequency. EXAM <ZARINA Lyons - Last Filed: 08/25/24 16:28> Physical Exam Narrative Exam Narrative: CONST: Patient sitting in no acute distress. EYES: Normal inspection. NECK: Normal inspection. RESP: No respiratory distress, CTAB. CVS: Regular rate and rhythm, no murmur, no gallop. ABD: Soft and nontender, no guarding or rebound, nondistended. Back: Normal inspection. No midline step-offs or crepitus. SKIN: Color normal, no rash, warm, dry, intact. EXTREMITIES: Patient holding both hips flexed in bed for comfort. 5/5 strength in bilateral hip flexion and dorsiflexion and plantarflexion. Normal sensation. 2+ DP pulses. NEURO: Alert and answering questions appropriately. PSYCH: Normal affect. Const Vital Signs: 08/25/24 13:24 08/25/24 13:28 08/25/24 15:24 Temperature 98.9 F 98.9 F Temperature Source Oral Oral Pulse Rate 104 H 101 H 90 Respiratory Rate 15 16 14 Blood Pressure 148/129 H 148/129 H 164/86 H Blood Pressure Mean 135 135 112 Pulse Ox 100 100 98 Oxygen Delivery Method Room Air Room Air Room Air <Juan Nieves MD - Last Filed: 08/27/24 23:21> Physical Exam Const Vital Signs: 08/25/24 13:24 08/25/24 13:28 08/25/24 15:24 Temperature 98.9 F 98.9 F Temperature Source Oral Oral Pulse Rate 104 H 101 H 90 Respiratory Rate 15 16 14 Blood Pressure 148/129 H 148/129 H 164/86 H Blood Pressure Mean 135 135 112 Pulse Ox 100 100 98 Oxygen Delivery Method Room Air Room Air Room Air MDM <ZARINA Lyons - Last Filed: 08/25/24 16:28> MDM MDM Narrative Medical decision making narrative: History gathered from: Patient, spouse, daughter Differential includes but not limited to muscle spasm, fracture, radiculopathy, cauda equina, UTI 79-year-old female with past medical history of remote lumbar surgeries, metastatic breast cancer presents with atraumatic bilateral low back pain and muscle spasms since this morning. She appears uncomfortable but nontoxic. Vital signs stable. Slightly tachycardic at 104 likely secondary to pain. Her abdomen is soft and nontender. Initially she could not sit up or roll over for me to examine her back and requested analgesia first. However she is able to move her lower extremities and MSPs are intact. She has no red flag signs concerning for cauda equina syndrome. She was ordered IV morphine, Zofran, and Valium. Labs show WBC of 13.2 and stable hemoglobin at 11.9. Chemistry panel overall unremarkable. CT scan shows lumbar degenerative changes but no acute fracture. It noted a distended bladder and constipation. Nurses did a straight catheterization for urine sample and she had about 900 cc was of urine in her bladder. She states sometimes she has difficulty initiating urination but today had not been going because she did not want to get up due to her back spasms. UA is negative for infection. She has received a total of IV morphine 8 mg, IV Toradol 15 mg, p.o. Valium 5 mg. She had some relief but is unable to even fully sit up at the bedside with assistance and cannot ambulate. She will need admission secondary to intractable back pain and inability to ambulate. I discussed the case with the hospitalist for admission. Lab Data Attestation: I reviewed the patient's lab results. Labs: Laboratory Results - last 24 hr 08/25/24 08/25/24 13:59 15:05 WBC 13.2 H RBC 4.01 L Hgb 11.9 L Hct 34.8 L MCV 86.8 MCH 29.7 MCHC 34.2 RDW Std Deviation 48.9 H RDW Coeff of James 15.3 H Plt Count 358 MPV 9.5 Immature Gran % (Auto) 0.500 Neut % (Auto) 83.4 H Lymph % (Auto) 9.9 L [place] % (Auto) 5.5 Eos % (Auto) 0.2 Baso % (Auto) 0.5 Absolute Neuts (auto) 11.0 H Absolute Lymphs (auto) 1.31 Nucleated RBC % 0 Sodium 134 Potassium 3.3 Chloride 99 Carbon Dioxide 19.9 L Anion Gap 16 H BUN 14 Creatinine 0.65 L Estim Creat Clear Calc 52.28 Est GFR (MDRD) Non-Af 90 BUN/Creatinine Ratio 21.2 H Glucose 120 H Calcium 8.8 Urine Color Yellow Urine Clarity Clear Urine pH 8.0 Ur Specific [place] 1.010 Urine Protein Negative Urine Glucose (UA) Normal Urine Ketones 5 H Urine Occult Blood Negative Urine Nitrite Negative Urine Bilirubin Negative Urine Urobilinogen Normal Ur Leukocyte Esterase Negative Urine RBC 0-5 SEEN Urine WBC 0-5 SEEN Ur Squamous Epith Cells 0 SEEN Urine Bacteria 0 SEEN Urine Mucus 0 SEEN Radiography Diagnostic Testing: Clinical Impression(s) from Imaging Studies Lumbar Spine CT 08/25/24 13:45 IMPRESSION: 1. No acute lumbar fracture. 2. 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 Reading Location: [id number] <Juan Nieves MD - Last Filed: 08/27/24 23:21> [facility] Lab Data Labs: Laboratory Results - last 24 hr 08/25/24 08/25/24 13:59 15:05 WBC 13.2 H RBC 4.01 L Hgb 11.9 L Hct 34.8 L MCV 86.8 MCH 29.7 MCHC 34.2 RDW Std Deviation 48.9 H RDW Coeff of James 15.3 H Plt Count 358 MPV 9.5 Immature Gran % (Auto) 0.500 Neut % (Auto) 83.4 H Lymph % (Auto) 9.9 L [place] % (Auto) 5.5 Eos % (Auto) 0.2 Baso % (Auto) 0.5 Absolute Neuts (auto) 11.0 H Absolute Lymphs (auto) 1.31 Nucleated RBC % 0 Sodium 134 Potassium 3.3 Chloride 99 Carbon Dioxide 19.9 L Anion Gap 16 H BUN 14 Creatinine 0.65 L Estim Creat Clear Calc 52.28 Est GFR (MDRD) Non-Af 90 BUN/Creatinine Ratio 21.2 H Glucose 120 H Calcium 8.8 Urine Color Yellow Urine Clarity Clear Urine pH 8.0 Ur Specific [place] 1.010 Urine Protein Negative Urine Glucose (UA) Normal Urine Ketones 5 H Urine Occult Blood Negative Urine Nitrite Negative Urine Bilirubin Negative Urine Urobilinogen Normal Ur Leukocyte Esterase Negative Urine RBC 0-5 SEEN Urine WBC 0-5 SEEN Ur Squamous Epith Cells 0 SEEN Urine Bacteria 0 SEEN Urine Mucus 0 SEEN Radiography Diagnostic Testing: Clinical Impression(s) from Imaging Studies Lumbar Spine CT 08/25/24 13:45 IMPRESSION: 1. No acute lumbar fracture. 2. 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 Reading Location: [id number] Treatment and Re-Evaluation Narrative: Dr. Nieves: I have personally performed a face to face assessment of the patient and have reviewed the SAMMY Note. I performed a substantive portion of the visit including all aspects of the following. My garcia findings include: History is intractable low back pain and spasming. Exam is afebrile. Vital signs noted. Nontoxic-appearing. Cardiovascular examination regular rate and rhythm. Lungs clear to auscultation bilaterally anteriorly. Abdomen soft and nontender without guarding or rebound. Patient lying on cot with hips and knees flexed. Medical Decision Making: Analgesia. Check lumbar spine CT for fracture. Attempt to ambulate. Admit. Other additions or changes: [None] Discharge Plan Dx/Rx/DC Orders Clinical Impression: Back muscle spasm, Chronic back pain, Acute urinary retention, Unable to ambulate Disposition Disposition: Acute Care Hospital [facility] Discharge Date/Time: 08/25/24 17:38
[2024-08-25 14:29] LABS: Anion Gap 16 (5-15); BUN 14 mg/dL (4-19); BUN/Creat Ratio 21.2 RATIO (10-20); Calcium,Total 8.8 mg/dL (7.6-11.0); Carbon Dioxide 19.9 mmol/L (21.0-32.0); Chloride 99 mmol/L (98-108); Creatinine, Serum 0.65 mg/dL (0.70-1.20); EST Glomerular Filtration Rate 90 (>60); Estimated Creatinine Clearance 52.28 ml/min (50-250); Glucose 120 mg/dL (70-99); Potassium 3.3 mmol/L (3.3-5.1); Sodium Level 134 mmol/L (133-145)
[2024-08-25] MEDS: Ketorolac 15 MG/ML Vial IV (14:48)
[2024-08-25 15:10] LABS: Bacteria 0 SEEN /hpf (None Seen); Mucous, Urine 0 SEEN /hpf (<or=2+); Squamous Epithelial Cells - UA 0 SEEN /hpf (5-10)
[2024-08-25 15:12] LABS: Color, Urine Yellow (Yellow); Glucose, Dipstick Normal (Normal); Ketone-Dipstick 5 mg/dl (Negative); Leukocyte Esterase-Dipstick Negative /ul (Negative); Nitrite-Dipstick Negative (Negative); Occult Blood-Urine Negative /ul (Negative); Protein-Dipstick Negative (Negative); Urine Bilirubin Dipstick Negative (Negative); Urine Clarity Clear (Clear); Urine Urobilinogen Normal (Normal)
[2024-08-25 15:27] LABS: Red Blood Cells-Urine 0-5 SEEN /hpf (0-5)
[2024-08-25 15:28] LABS: White Blood Cells 0-5 SEEN /hpf (0-5)
--- NOTE | 2024-08-25 16:15 | ED.RN ---
Nursing staff x3 attempted to sit patient up in bed, patient was unable to move past 30 degree angle in bed. Physician notified.
--- NOTE | 2024-08-25 16:23 | HP.PCM.HOS_ITS ---
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 Epigastric abdominal pain Liver metastasis 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 Wears dentures Sleep apnea History of TIA (transient ischemic attack) History of thyroid disease Back pain Neck pain Severe headache Stomach ulcer History of cancer Arthritis History of hypertension Medical History no medical history Home Medications ?Medication ?Instructions ?Recorded ?Last Taken ?Type fluoxetine 40 mg capsule 40 mg PO QDAY 06/16/17 Unkno wn History lisinopril 20 mg tablet 20 mg PO DAILY 09/25/2005/06 History levothyroxine 125 mcg tablet 112 mcg PO DAILY 30 days #27 tabs 06/11/21 05/23/24 History hydrocodone-acetaminophen 5-325mg 1 tab PO Q6H PRN josé miguel n 07/16/22 Unknown History 5mg-325mg alprazolam 0.5 mg tablet 0.5 mg PO DAILY PRN anxiety 07/21/22 Unknown History letrozole 2.5 mg tablet 2.5 mg PO QDAY 02/16/2405/06 History [id number] 3.5 1 drp ophthalmic (eye) DAILY 02/16/24 Unknown History mg/mL-10,000 unit/mL-0.1% eye drops amlodipine 5 mg tablet 5 mg PO QDAY 04/30/24 Unknow n History clopidogrel 75 mg tablet 75 mg PO QDAY 04/30/2405/17 History esomeprazole magnesium 20 mg 20 mg PO QDAY 04/30/24 History capsule,delayed release (Nexium) sennosides 8.6 mg tablet (Senokot) 8.6 mg PO DAILY PRN constipation 04/30/24 Unknown History liothyronine 5 mcg tablet 5 mcg PO DAILY 05/21/2405/06 History zolpidem 10 mg tablet 10 mg PO QHS 05/21/24 Unknow n History Allergy/AdvReac Type Severity Reaction Status Date / Time shellfish derived Allergy Severe throat Verified 08/25/24 13:29 swelling adhesive tape AdvReac Rash Verified 08/25/24 13:29 Family History Mother Colon cancer passed from recurrence Thyroid disorder Father Hypertension CVA (cerebral vascular accident) Sister Breast cancer, Onset Age: 87 Aunt Colon cancer paternal Surgical History History of lumpectomy History of back surgery History of thyroid surgery Surgical History no surgical history Social History household members: spouse Smoking Status: Former smoker how long ago did patient quit smoking: >50 years ago; off and on for 2 years, socially only alcohol intake: current alcohol intake frequency: 0-2 drinks per day Alcohol type: wine details: socially substance use type: does not use additional social history: denies vaping, denies marijuana, denies edibles, denies aspirin and ibuprofen use Vital Signs Vital Signs Vital Signs: 08/25/24 13:24 08/25/24 13:28 08/25/24 15:24 Temperature 98.9 F 98.9 F Temperature Source Oral Oral Pulse Rate 104 H 101 H 90 Respiratory Rate 15 16 14 Blood Pressure 148/129 H 148/129 H 164/86 H Blood Pressure Mean 135 135 112 Pulse Ox 100 100 98 Oxygen Delivery Method Room Air Room Air Room Air Weight Weight: 73.5 kg Body Mass Index (BMI) 30.6 Results Lab / Micro Data 08/25/24 13:59 08/25/24 13:59 Labs: Laboratory Results - last 24 hr 08/25/24 13:59: WBC 13.2 H, RBC 4.01 L, Hgb 11.9 L, Hct 34.8 L, MCV 86.8, MCH 29.7, MCHC 34.2, RDW Std Deviation 48.9 H, RDW Coeff of James 15.3 H, Plt Count 358, MPV 9.5, Immature Gran % (Auto) 0.500, Neut % (Auto) 83.4 H, Lymph % (Auto) 9.9 L, [place] % (Auto) 5.5, Eos % (Auto) 0.2, Baso % (Auto) 0.5, Absolute Neuts (auto) 11.0 H, Absolute Lymphs (auto) 1.31, Nucleated RBC % 0, Sodium 134, Potassium 3.3, Chloride 99, Carbon Dioxide 19.9 L, Anion Gap 16 H, BUN 14, C reatinine 0.65 L, Estim Creat Clear Calc 52.28, Est GFR (MDRD) Non-Af 90, B UN/Creatinine Ratio 21.2 H, Glucose 120 H, Calcium 8.8 08/25/24 15:05: Urine Color Yellow, Urine Clarity Clear, Urine pH 8.0, Ur Specific [place] 1.010, Urine Protein Negative, Urine Glucose (UA) Normal, Urine Ketones 5 H, Urine Occult Blood Negative, Urine Nitrite Negative, Urine Bilirubin Negative, Urine Urobilinogen Normal, Ur Leukocyte Esterase Negative, Urine RBC 0-5 SEEN, Urine WBC 0-5 SEEN, Ur Squamous Epith Cells 0 SEEN, Urine Bacteria 0 SEEN, Urine Mucus 0 SEEN Imaging Radiology Impression Lumbar Spine CT 08/25/24 13:45 IMPRESSION: 1. No acute lumbar fracture. 2. 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 Reading Location: [id number]
--- NOTE | 2024-08-25 16:23 | PCM.HP.STD ---
[facility] - General General Date of Admission: 08/25/24 Date of Service: 08/25/24 Chief Complaint: Acute on chronic back pain with spasms and inability to ambulate HPI Narrative ARIEL BISHOP, is a 79 F who presented to [facility] ED on 08/23/2024 with acute on chronic low back pain with spasms and inability to ambulate. Patient has history of chronic low back pain with L4-5 lumbar fusion done at the [facility] in 2018 and then discectomy done there in 2020. Medical history is also significant for metastatic breast cancer; she follows with Dr. Dhaliwal for this and has been stable on trastuzumab and letrozole recently. Around midmorning today patient developed significant bilateral low back muscle spasms. She notes that since her low back procedure she has had chronic low back pain that has generally been tolerable with pain medication. However, she has never had muscle spasms like this before. She was walking at the time and had more difficulty moving the right leg due to pain than the left leg. When she got home she had even worse pain and was essentially unable to move, so she came in for further evaluation. In the ED she was mildly tachycardic to the 100s and mildly hypertensive to the 160s over 80s but otherwise stable on room air. Labs showed WBC count 13, were otherwise fairly benign. CT lumbar spine without contrast showed no acute lumbar fracture and known multilevel degenerative central and neural foraminal stenosis. Was also noted on CT scan to have a distended urinary bladder, and Pritchett catheter was placed with 900 cc of urine output. Given the intractable back pain with urinary retention and inability to ambulate, hospitalist was contacted for admission. I saw the patient at bedside in the ED, was present. Notably patient's Tavon and her daughter Camila Vela work on staff at the hospital here. Patient was laying back in bed when I saw her and was conversing normally for me. She reported only minimal pain when laying still but had continued to have moderate to severe low back pain with muscle spasms with any movement. She noted that she was afraid to move at this point. She otherwise denied any fevers or chills. Denied any other acute concerns at this time. [facility] Medical History (Updated 08/25/24 @ 18:[address] Buzz Alford, DO) Breast cancer Liver cancer Wears glasses Post-menopausal Cancer Depression Anxiety Alcohol use Thyroid disease Anemia Easy bruising Excessive bleeding Back pain TIA (transient ischemic attack) History of hiatal hernia History of ulceration History of IBS Gastric reflux Former smoker Shortness of breath on exertion History of echocardiogram Hypertension History of irregular heartbeat History of rheumatic fever LUQ pain 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 Epigastric abdominal pain Liver metastasis 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 Wears dentures Sleep apnea History of TIA (transient ischemic attack) History of thyroid disease Back pain Neck pain Severe headache Stomach ulcer History of cancer Arthritis History of hypertension Medical History no medical history Home Medications ?Medication ?Instructions ?Recorded ?Last Taken ?Type fluoxetine 40 mg capsule 40 mg PO DAILY 06/16/17 08/25/24 History lisinopril 20 mg tablet 20 mg PO DAILY 09/25/20 08/25/24 History levothyroxine 125 mcg tablet 112 mcg PO DAILY 30 days #27 tabs 06/11/21 08/25/24 History hydrocodone-acetaminophen 5-325mg 1 tab PO Q6H PRN pain 07/16/22 08/25/24 History 5mg-325mg alprazolam 0.5 mg tablet 0.5 mg PO DAILY PRN anxiety 07/21/22 Unknown History letrozole 2.5 mg tablet 2.5 mg PO DAILY 02/16/24 08/25/24 History amlodipine 5 mg tablet 5 mg PO QHS 04/30/24 08/24/24 History clopidogrel 75 mg tablet 75 mg PO DAILY 04/30/24 08/25/24 History esomeprazole magnesium 20 mg 20 mg PO DAILY 04/30/24 08/25/24 History capsule,delayed release (Nexium) liothyronine 5 mcg tablet 5 mcg PO DAILY 05/21/24 08/25/24 History zolpidem 10 mg tablet 10 mg PO QHS 05/21/24 08/24/24 History acetaminophen 650 mg 650 mg PO PRN ARTHRITIS 08/25/24 08/24/24 History tablet,extended release cholecalciferol (vitamin D3) 50 50 mcg PO DAILY 08/25/24 08/24/24 History mcg (2,000 unit) capsule ferrous sulfate 325 mg (65 mg 325 mg PO DAILY 08/25/24 08/24/24 History iron) tablet (Feosol) multivitamin (Daily Multi-Vitamin 1 tab PO DAILY 08/25/24 08/24/24 History tablet) psyllium husk 3.4 gram/5.4 gram 1 tsp PO DAILY 08/25/24 08/24/24 History oral powder (Metamucil) Allergy/AdvReac Type Severity Reaction Status Date / Time shellfish derived Allergy Severe throat Verified 08/25/24 13:29 swelling adhesive tape AdvReac Rash Verified 08/25/24 13:29 Family History Mother Colon cancer passed from recurrence Thyroid disorder Father Hypertension CVA (cerebral vascular accident) Sister Breast cancer, Onset Age: 87 Aunt Colon cancer paternal Surgical History History of lumpectomy History of back surgery History of thyroid surgery Surgical History no surgical history Social History household members: spouse Smoking Status: Former smoker how long ago did patient quit smoking: >50 years ago; off and on for 2 years, socially only alcohol intake: current alcohol intake frequency: 0-2 drinks per day Alcohol type: wine details: socially substance use type: does not use additional social history: denies vaping, denies marijuana, denies edibles, denies aspirin and ibuprofen use ROS Constitutional Constitutional: Denies chills, fatigue, fever(s) or weakness Eyes Eyes: Denies change in vision Cardiovascular Cardiovascular: Denies chest pain Respiratory/Chest Respiratory/Chest: Denies shortness of breath at rest Gastrointestinal Gastrointestinal: Denies abdominal pain Genitourinary Genitourinary: Reports urinary hesitancy; Denies dysuria Musculoskeletal Musculoskeletal: Reports back pain and myalgias; Denies arthralgias Neurologic Neurologic: Reports abnormal gait; Denies dizziness, headache(s), numbness or paresthesias Vital Signs Vital Signs Vital Signs: 08/25/24 13:24 08/25/24 13:28 08/25/24 15:24 Temperature 98.9 F 98.9 F Temperature Source Oral Oral Pulse Rate 104 H 101 H 90 Respiratory Rate 15 16 14 Blood Pressure 148/129 H 148/129 H 164/86 H Blood Pressure Mean 135 135 112 Pulse Ox 100 100 98 Oxygen Delivery Method Room Air Room Air Room Air Weight Weight: 73.5 kg Body Mass Index (BMI) 30.6 Physical Exam Const alert, oriented x3 and no apparent distress Constitutional Narrative: Elderly female, mildly fatigued appearing, laying back in bed and remaining still given moderate to severe pain with movement, otherwise conversing normally. General Appearance: cooperative HEENT normocephalic, head/scalp atraumatic, hearing grossly normal bilaterally, nasal mucous membranes and turbinates normal and moist oral mucous membranes Eyes PERRL, EOMs intact bilaterally and conjunctivae normal Neck full ROM Chest inspection of chest normal Resp normal respiratory effort, normal air movement, no use of accessory muscles and clear to auscultation bilaterally Cardio regular rate, regular rhythm, no murmurs and peripheral pulses 2+ throughout GI normal to inspection, nondistended, normoactive bowel sounds, soft to palpation, non-tender and non-distended Back/Spine Back/Spine Narrative: Mild tenderness to palpation in low back diffusely, no point tenderness noted. Did not attempt any movement with her. Extremity normal to inspection and no pedal edema Skin no rashes or lesions noted Neuro Speech: speech normal Psych mental status grossly normal Mood & Affect: anxious Results Lab / Micro Data 08/25/24 13:59 08/25/24 13:59 Labs: Laboratory Results - last 24 hr 08/25/24 13:59: WBC 13.2 H, RBC 4.01 L, Hgb 11.9 L, Hct 34.8 L, MCV 86.8, MCH 29.7, MCHC 34.2, RDW Std Deviation 48.9 H, RDW Coeff of James 15.3 H, Plt Count 358, MPV 9.5, Immature Gran % (Auto) 0.500, Neut % (Auto) 83.4 H, Lymph % (Auto) 9.9 L, [place] % (Auto) 5.5, Eos % (Auto) 0.2, Baso % (Auto) 0.5, Absolute Neuts (auto) 11.0 H, Absolute Lymphs (auto) 1.31, Nucleated RBC % 0, Sodium 134, Potassium 3.3, Chloride 99, Carbon Dioxide 19.9 L, Anion Gap 16 H, BUN 14, Creatinine 0.65 L, Estim Creat Clear Calc 52.28, Est GFR (MDRD) Non-Af 90, BUN/Creatinine Ratio 21.2 H, Glucose 120 H, Calcium 8.8 08/25/24 15:05: Urine Color Yellow, Urine Clarity Clear, Urine pH 8.0, Ur Specific [place] 1.010, Urine Protein Negative, Urine Glucose (UA) Normal, Urine Ketones 5 H, Urine Occult Blood Negative, Urine Nitrite Negative, Urine Bilirubin Negative, Urine Urobilinogen Normal, Ur Leukocyte Esterase Negative, Urine RBC 0-5 SEEN, Urine WBC 0-5 SEEN, Ur Squamous Epith Cells 0 SEEN, Urine Bacteria 0 SEEN, Urine Mucus 0 SEEN Imaging Radiology Impression Lumbar Spine CT 08/25/24 13:45 IMPRESSION: 1. No acute lumbar fracture. 2. 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 Reading Location: [id number] Assessment & Plan Assessment/Plan (1) Acute on chronic low back pain: (2) Back muscle spasm: (3) Unable to ambulate: PLAN: Plan Patient is a 79-year-old female who presented [facility] ED on 08/25/2024 with acute on chronic low back pain with spasms and inability to ambulate. 1. Acute on chronic low back pain with muscle spasms and inability to ambulate ? Admit under observation status to [facility]. Pain management consulted. PT/OT/case management consulted. Patient with history of chronic low back pain with prior L4-5 fusion in discectomy procedures done at [facility]. Presented with acute muscle spasms that were new for her. CT lumbar spine showed chronic changes but no acute changes on admit. Will treat with scheduled Tylenol, lidocaine patch, p.o. oxycodone as needed and IV Dilaudid as needed. Will give 1 dose of p.o. Flexeril for now and see how she does with this. Will also give 2 doses of IV Decadron. Will hold on obtaining MRI lumbar spine at this time and defer to pain management on this. Patient lives at home with her and would prefer to go home on discharge if possible. 2. Acute urinary retention ? CT lumbar spine showed distended bladder and she had Pritchett catheter placed in the ED with 900 cc of urine removed. No previous history of urinary retention. Suspect this is secondary to her acute on chronic low back pain with muscle spasms. Would recommend void trial prior to discharge if able. 3. Metastatic breast cancer ? Follows with Dr. Dhaliwal. Has history of breast cancer s/p left mastectomy in 2023 and known liver metastases. Breast cancer ER and HER2 positive. Previously underwent chemotherapy and is now on letrozole and trastuzumab and cancer has remained stable. Notably had MRI of the spine done in early July that showed known T2 lesion that is stable and no other concerning findings in the spine. No inpatient needs, continue outpatient follow-up. Chronic medical conditions: ? Anxiety/depression/insomnia: Continue home fluoxetine, alprazolam daily as needed and zolpidem at night as needed. ? Hypothyroidism: Continue home Synthroid and liothyronine. ? GERD: Continue home PPI. ? Hypertension: Continue home amlodipine and lisinopril. ? History of TIA: Continue home Plavix. DVT prophylaxis: Lovenox CODE STATUS: Full code, verified Expected disposition: TBD Total clinical time spent by myself addressing the patient's medical issues, reviewing all the data, and collaborating with patient's care team: 75 minutes. Charges/Coding Visit Charges Inpatient E&M: 11477 Init Hosp L3
[2024-08-25] MEDS: HYDROmorphone 0.5 MG/0.5 ML SYRINGE IV (18:26)
[2024-08-25] MEDS: dexAMETHasone 4 MG/ML Vial IV (18:26)
[2024-08-25] MEDS: Acetaminophen 500 MG Tablet 1000 MG PO (20:28)
[2024-08-25] MEDS: oxyCODONE 5 MG Tablet PO (20:28)
[2024-08-25] MEDS: amLODIPine 5 MG Tablet PO (20:28)
[2024-08-25] MEDS: cycloBENZAPRine HCl 5 MG TABLET PO (21:23)
[2024-08-25] MEDS: Zolpidem Tartrate 5 MG Tablet 10 MG PO (21:23)
[2024-08-26 05:39] VITALS: BP 141/68; PULSE 67; RESP 18; TEMP 36.6; O2SAT 97
[2024-08-26] MEDS: oxyCODONE 5 MG Tablet PO ×2 (05:46→19:57)
[2024-08-26] MEDS: Acetaminophen 500 MG Tablet 1000 MG PO ×3 (05:46→21:36)
[2024-08-26] MEDS: Liothyronine 5 MCG Tablet PO (05:46)
[2024-08-26] MEDS: Levothyroxine 112 MCG Tablet PO (05:46)
[2024-08-26 06:03] LABS: Hemoglobin 12.1 g/dL (12.0-15.0); Mean Corp Hgb Conc 33.6 g/dL (32-36); Mean Corpuscular Hgb 29.6 pg (27.0-32.0); Mean Platelet Vol. 9.5 fl (6.2-12.0); Platelet Count 347 K/mm3 (150-450); RBC Distribution Width CV 15.5 % (11.6-14.6); Red Blood Count 4.09 M/mm3 (4.2-5.4); White Blood Count 5.6 K/mm3 (4.4-11.0)
[2024-08-26 06:27] LABS: Anion Gap 13 (5-15); BUN 14 mg/dL (4-19); BUN/Creat Ratio 21.2 RATIO (10-20); Calcium,Total 8.9 mg/dL (7.6-11.0); Carbon Dioxide 21.4 mmol/L (21.0-32.0); Chloride 100 mmol/L (98-108); Creatinine, Serum 0.68 mg/dL (0.70-1.20); EST Glomerular Filtration Rate 89 (>60); Estimated Creatinine Clearance 50.49 ml/min (50-250); Glucose 121 mg/dL (70-99); Potassium 4.4 mmol/L (3.3-5.1); Sodium Level 135 mmol/L (133-145)
[2024-08-26 07:59] VITALS: O2SAT 95
[2024-08-26 08:30] VITALS: BP 153/77; PULSE 67; RESP 16; TEMP 36.6; O2SAT 100
[2024-08-26] MEDS: Multivitamins,Therapeutic Tablet 1 TABLET PO (08:38)
[2024-08-26] MEDS: dexAMETHasone 4 MG/ML Vial IV ×3 (08:38→17:56)
[2024-08-26] MEDS: 0.9% Saline Lock 10 ML Syringe IV ×3 (08:38→17:57)
[2024-08-26] MEDS: Fluoxetine HCl 40 MG CAPSULE PO (10:54)
[2024-08-26] MEDS: cycloBENZAPRine HCl 5 MG TABLET PO ×2 (10:54→21:35)
[2024-08-26] MEDS: Enoxaparin 40 MG/0.4 ML Syringe SC (10:55)
--- NOTE | 2024-08-26 10:55 | PCM.PN.HOSP ---
Reason for Visit Reason for Visit: Diagnoses Other chronic pain (08/25/24) Low back pain, unspecified (08/25/24) Muscle spasm of back (08/25/24) Difficulty in walking, not elsewhere classified (08/25/24) Subjective Subjective Patient was seen and examined today, her was in the room at the time my examination. Patient states that she is having severe back pain, she denies any trauma, she has a past history of lumbar spine surgery. Patient denies any radiation of pain into her buttocks or down her legs. She describes the pain as like a spasm Objective Data Objective Data Vital Signs: Vital Signs Temp Pulse Resp BP Pulse Ox O2 Del Method 97.8 F 67 18 141/68 H 95 Room Air 08/26/24 05:39 08/26/24 05:39 08/26/24 05:39 08/26/24 05:39 08/26/24 07:59 08/26/24 07:59 Oxygen Delivery Method Room Air Weight: 68.51 kg Body Mass Index (BMI) 28.5 Intake & Output: Intake and Output for Last 24 Hours 08/24/24 08/25/24 08/26/24 23:59 23:59 23:59 Intake Total 200 / 200 Output Total 350 / 350 Balance -150 / -150 Lab / Micro Data 08/26/24 05:25 08/26/24 05:25 Labs: Laboratory Results - last 24 hr 08/25/24 13:59: WBC 13.2 H, RBC 4.01 L, Hgb 11.9 L, Hct 34.8 L, MCV 86.8, MCH 29.7, MCHC 34.2, RDW Std Deviation 48.9 H, RDW Coeff of James 15.3 H, Plt Count 358, MPV 9.5, Immature Gran % (Auto) 0.500, Neut % (Auto) 83.4 H, Lymph % (Auto) 9.9 L, [place] % (Auto) 5.5, Eos % (Auto) 0.2, Baso % (Auto) 0.5, Absolute Neuts (auto) 11.0 H, Absolute Lymphs (auto) 1.31, Nucleated RBC % 0, Sodium 134, Potassium 3.3, Chloride 99, Carbon Dioxide 19.9 L, Anion Gap 16 H, BUN 14, Creatinine 0.65 L, Estim Creat Clear Calc 52.28, Est GFR (MDRD) Non-Af 90, BUN/Creatinine Ratio 21.2 H, Glucose 120 H, Calcium 8.8 08/25/24 15:05: Urine Color Yellow, Urine Clarity Clear, Urine pH 8.0, Ur Specific [place] 1.010, Urine Protein Negative, Urine Glucose (UA) Normal, Urine Ketones 5 H, Urine Occult Blood Negative, Urine Nitrite Negative, Urine Bilirubin Negative, Urine Urobilinogen Normal, Ur Leukocyte Esterase Negative, Urine RBC 0-5 SEEN, Urine WBC 0-5 SEEN, Ur Squamous Epith Cells 0 SEEN, Urine Bacteria 0 SEEN, Urine Mucus 0 SEEN 08/26/24 05:25: WBC 5.6, RBC 4.09 L, Hgb 12.1, Hct 36.0 L, MCV 88.0, MCH 29.6, MCHC 33.6, RDW Std Deviation 50.0 H, RDW Coeff of James 15.5 H, Plt Count 347, MPV 9.5, Sodium 135, Potassium 4.4, Chloride 100, Carbon Dioxide 21.4, Anion Gap 13, BUN 14, Creatinine 0.68 L, Estim Creat Clear Calc 50.49, Est GFR (MDRD) Non-Af 89, BUN/Creatinine Ratio 21.2 H, Glucose 121 H, Calcium 8.9 Radiography Diagnostic Testing: Radiology Impression Lumbar Spine CT 08/25/24 13:45 IMPRESSION: 1. No acute lumbar fracture. 2. 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 Reading Location: [facility] Physical Exam Const alert, oriented x3, no apparent distress and average body habitus Constitutional Narrative: Patient appears younger than her stated age General Appearance: cooperative, well kempt and well developed Orientation / Consciousness: awake, oriented to person, oriented to place and oriented to time HEENT normocephalic, head/scalp atraumatic and moist oral mucous membranes Eyes PERRL, EOMs intact bilaterally and conjunctivae normal Neck supple, no JVD, thyroid normal and no carotid bruits General: trachea midline Resp normal respiratory effort, no retractions, no use of accessory muscles and clear to auscultation bilaterally Auscultation: Negative for rales, rhonchi or wheezes Cardio regular rate, regular rhythm, S1 normal heart sound, S2 normal heart sound, no murmurs, no rub and no gallops GI normal to inspection, nondistended, normoactive bowel sounds, soft to palpation, non-tender and non-distended Extremity no clubbing, cyanosis or edema Skin no rashes or lesions noted General Skin Exam: no breakdown Neuro oriented x3, CN's II-XII intact bilaterally, moves all extremities, no focal motor deficits and no sensory deficits noted Sensorium / Orientation: awake and alert Speech: speech normal Psych affect normal Assessment & Plan Assessment/Plan (1) Acute on chronic low back pain: PLAN: Plan 1. 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
[2024-08-26] MEDS: Cholecalciferol (VIT D3) 25 MCG TABLET (1,000 UNITS) 50 MCG PO (10:56)
[2024-08-26] MEDS: Clopidogrel Bisulfate 75 MG Tablet PO (10:56)
[2024-08-26] MEDS: Lisinopril 20 MG Tablet PO (10:57)
[2024-08-26] MEDS: oxyCODONE HCl Cr 10 MG Tablet PO ×2 (11:08→21:38)
[2024-08-26] MEDS: Pantoprazole Sodium 20 MG Tablet PO (11:08)
[2024-08-26] MEDS: Ferrous Sulfate 325 MG Tablet PO (13:05)
[2024-08-26 13:13] VITALS: BP 137/78; PULSE 75; RESP 18; TEMP 36.5; O2SAT 98
[2024-08-26 20:30] VITALS: BP 159/99; PULSE 74; RESP 16; TEMP 36.7; O2SAT 96
[2024-08-26] MEDS: amLODIPine 5 MG Tablet PO (21:35)
[2024-08-26] MEDS: Senna Tablet 1 TABLET PO (21:37)
[2024-08-26] MEDS: Zolpidem Tartrate 5 MG Tablet 10 MG PO (21:42)
[2024-08-27] MEDS: dexAMETHasone 4 MG/ML Vial IV ×4 (00:09→17:16)
[2024-08-27 02:30] VITALS: BP 150/66; PULSE 72; RESP 16; TEMP 36.6; O2SAT 94
[2024-08-27] MEDS: Acetaminophen 500 MG Tablet 1000 MG PO ×3 (06:24→21:21)
[2024-08-27] MEDS: Levothyroxine 112 MCG Tablet PO (06:25)
[2024-08-27] MEDS: Liothyronine 5 MCG Tablet PO (06:26)
[2024-08-27] MEDS: cycloBENZAPRine HCl 5 MG TABLET PO ×3 (06:26→21:22)
[2024-08-27 07:25] VITALS: O2SAT 95
[2024-08-27 07:55] VITALS: BP 160/68; PULSE 65; RESP 18; TEMP 36.6; O2SAT 100
[2024-08-27] MEDS: Enoxaparin 40 MG/0.4 ML Syringe SC (08:03)
[2024-08-27] MEDS: Multivitamins,Therapeutic Tablet 1 TABLET PO (08:03)
[2024-08-27] MEDS: Clopidogrel Bisulfate 75 MG Tablet PO (08:04)
[2024-08-27] MEDS: Fluoxetine HCl 40 MG CAPSULE PO (08:04)
[2024-08-27] MEDS: Cholecalciferol (VIT D3) 25 MCG TABLET (1,000 UNITS) 50 MCG PO (08:05)
[2024-08-27] MEDS: Lisinopril 20 MG Tablet PO (08:05)
[2024-08-27] MEDS: Pantoprazole Sodium 20 MG Tablet PO (08:11)
[2024-08-27] MEDS: Senna Tablet 1 TABLET PO ×2 (08:11→21:22)
--- NOTE | 2024-08-27 09:00 | MRI_ITS ---
PROCEDURE: SPINE LUMBAR W/WO CONTRAST 08/27/2024 REASON FOR EXAM: LOW BACK PAIN TECHNIQUE: Multiplaner MRI of the lumbar spine performed without and with intravenous gadolinium-based contrast. . Multiple pulse sequences were obtained. CONTRAST: Clariscan VOLUME: 14mL COMPARISON: 08/25/2024; 11/12/2019 FINDINGS: Vertebrae: Degenerative marrow changes present. Postoperative changes are present of a left posterior transpedicular fusion at L4-5 with an intervertebral disc construct present. A vertebral hemangioma is noted at the T11 vertebral body. Alignment: There is a slight retrolisthesis of L3 on L4 and a slight anterolisthesis of L5 on S1. Conus Medullaris: Terminates at the T12-L1 level. T12-L1: Degenerative disc disease is present with a diffuse broad-base disc bulge causing moderate spinal canal stenosis with minimal mass effect on the conus medullaris. There is moderate right and mild left neural foraminal stenosis. L1-2: Degenerative disc disease with a diffuse broad-based disc bulge causing [id number] spinal canal stenosis. There is [id number]-[id number] right and moderate left neural foraminal stenosis. L2-3: Degenerative disc disease with a mild central disc protrusion causing mild spinal canal stenosis. There is moderate left and mild right neural foraminal stenosis. L3-4: Degenerative disc disease with a mild diffuse disc bulge contributing to mild spinal canal stenosis. There is [id number] bilateral neural foraminal stenosis due to disc bulge and uncovertebral and facet hypertrophy. A slight retrolisthesis is noted at this level as stated above. L4-5: Postoperative level with posterior left-sided transpedicular fusion and an interbody disc construct. Facet hypertrophy is contributing to mild central spinal canal stenosis at this level. L5-S1: Degenerative disc disease with mild diffuse disc bulge contributing to mild spinal canal stenosis. There is [id number]-yx-[id number] left and moderate right neural foraminal stenosis due to disc bulge and facet hypertrophy. A slight anterolisthesis is noted at this level as stated above. Sacrum: Unremarkable Soft tissues: Postoperative scarring present in the superficial soft tissues of the lower back. Postcontrast images: Unremarkable. On the geological technician view, a T2 hypointense lesion is noted in the T6 vertebral body measuring 1.3 cm. MRI/Spine Lumbar W/WO Contrast IMPRESSION: 1. Previous spinal fusion at the L4-5 level. 2. Multilevel degenerative changes are present which are greatest at the postop erative transitional levels of L3-4 and L5-S1. Details of the degenerative changes in the body of the report. 3. Mild spondylolisthesis also present at the transitional levels. 4. A T2 hypointense lesion is incidentally noted in the T6 vertebral body on th e geological technician views, which is indeterminate. Consider dedicated thoracic imaging for further assessment. Reading Location: [facility]
[2024-08-27] MEDS: oxyCODONE HCl Cr 10 MG Tablet PO ×2 (10:25→21:21)
--- NOTE | 2024-08-27 10:50 | CASEMGMT ---
Met with patient and her to complete [place] form. [place] form explained to both who voiced understanding and signed form. Original form placed in pt?s chart and copy provided to patient. Lulu Wall, Discharge Planning Asst
--- NOTE | 2024-08-27 11:31 | CONS.ORTHO ---
Documented by User: ZARINA Menard 08/27/24 11:43 HPI Consult Data Date of Consult: 08/27/24 HPI Narrative HPI Narrative: ARIEL BISHOP, is a 79 F who presented to [facility] ED on 08/23/2024 with acute on chronic low back pain with spasms and inability to ambulate. Patient has history of chronic low back pain with L4-5 lumbar fusion done at the [facility] in 2018 and then discectomy done there in 2020. Medical history is also significant for metastatic breast cancer; she follows with Dr. Dhaliwal for this and has been stable on trastuzumab and letrozole recently. Around midmorning today patient developed significant bilateral low back muscle spasms. She notes that since her low back procedure she has had chronic low back pain that has generally been tolerable with pain medication. However, she has never had muscle spasms like this before. She was walking at the time and had more difficulty moving the right leg due to pain than the left leg. When she got home she had even worse pain and was essentially unable to move, so she came in for further evaluation. In the ED she was mildly tachycardic to the 100s and mildly hypertensive to the 160s over 80s but otherwise stable on room air. Labs showed WBC count 13, were otherwise fairly benign. CT lumbar spine without contrast showed no acute lumbar fracture and known multilevel degenerative central and neural foraminal stenosis. Was also noted on CT scan to have a distended urinary bladder, and Pritchett catheter was placed with 900 cc of urine output. Given the intractable back pain with urinary retention and inability to ambulate, hospitalist was contacted for admission. History of L4-5 fusion in 2018 and discectomy in [address] Garcia at [facility]. Patient says that starting Tuesday, August 25 she noticed an increase in muscle spasm which caused back pain which made it difficult for her to ambulate. Says that the pain is primarily midline however she does think that it radiates more towards the right side. She denies any numbness or tingling down her legs. The patient tried a lidocaine patch at home as well as Tylenol however that did not seem to help the pain. She has a history of metastatic breast cancer which includes a chemo in 2018 and a mastectomy in 2023. Patient notes that she did have a T6 involvement from the metastatic cancer. [facility] Medical History (Updated 08/27/24 @ 13:[address] 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 Epigastric abdominal pain Liver metastasis 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 Wears dentures Sleep apnea History of TIA (transient ischemic attack) History of thyroid disease Back pain Neck pain Severe headache Stomach ulcer History of cancer Arthritis History of hypertension Medical History no medical history Home Medications ?Medication ?Instructions ?Recorded ?Last Taken ?Type fluoxetine 40 mg capsule 40 mg PO DAILY 06/16/17 08/25/24 History lisinopril 20 mg tablet 20 mg PO DAILY 09/25/20 08/25/24 History levothyroxine 125 mcg tablet 112 mcg PO DAILY 30 days #27 tabs 06/11/21 08/25/24 History hydrocodone-acetaminophen 5-325mg 1 tab PO Q6H PRN pain 07/16/22 08/25/24 History 5mg-325mg alprazolam 0.5 mg tablet 0.5 mg PO DAILY PRN anxiety 07/21/22 Unknown History letrozole 2.5 mg tablet 2.5 mg PO DAILY 02/16/24 08/25/24 History amlodipine 5 mg tablet 5 mg PO QHS 04/30/24 08/24/24 History clopidogrel 75 mg tablet 75 mg PO DAILY 04/30/24 08/25/24 History esomeprazole magnesium 20 mg 20 mg PO DAILY 04/30/24 08/25/24 History capsule,delayed release (Nexium) liothyronine 5 mcg tablet 5 mcg PO DAILY 05/21/24 08/25/24 History zolpidem 10 mg tablet 10 mg PO QHS 05/21/24 08/24/24 History acetaminophen 650 mg 650 mg PO PRN ARTHRITIS 08/25/24 08/24/24 History tablet,extended release cholecalciferol (vitamin D3) 50 50 mcg PO DAILY 08/25/24 08/24/24 History mcg (2,000 unit) capsule ferrous sulfate 325 mg (65 mg 325 mg PO DAILY 08/25/24 08/24/24 History iron) tablet (Feosol) multivitamin (Daily Multi-Vitamin 1 tab PO DAILY 08/25/24 08/24/24 History tablet) psyllium husk 3.4 gram/5.4 gram 1 tsp PO DAILY 08/25/24 08/24/24 History oral powder (Metamucil) Allergy/AdvReac Type Severity Reaction Status Date / Time shellfish derived Allergy Severe throat Verified 08/25/24 13:29 swelling adhesive tape AdvReac Rash Verified 08/25/24 13:29 Family History Mother Colon cancer passed from recurrence Thyroid disorder Father Hypertension CVA (cerebral vascular accident) Sister Breast cancer, Onset Age: 87 Aunt Colon cancer paternal Surgical History History of lumpectomy History of back surgery History of thyroid surgery Surgical History no surgical history Social History household members: spouse Smoking Status: Former smoker how long ago did patient quit smoking: >50 years ago; off and on for 2 years, socially only alcohol intake: current alcohol intake frequency: 0-2 drinks per day Alcohol type: wine details: socially substance use type: does not use additional social history: denies vaping, denies marijuana, denies edibles, denies aspirin and ibuprofen use Vital Signs Vital Signs Vital Signs: 08/26/24 13:13 08/26/24 16:45 08/26/24 20:30 Temperature 97.7 F L 98.0 F Temperature Source Oral Oral Pulse Rate 75 74 Pulse Strength Respiratory Rate 18 16 Respiratory Effort Normal Non-Labored Respiratory Depth Normal Respiratory Pattern Normal Blood Pressure 137/78 H 159/99 H Blood Pressure Mean 97 119 Blood Pressure Source Monitor Monitor Blood Pressure Position Semi-Fowlers Semi-Fowlers Blood Pressure Location Right Arm Right Arm Pulse Ox 98 96 Oxygen Delivery Method Room Air Room Air Room Air 08/26/24 22:00 08/26/24 22:00 08/27/24 02:30 Temperature 97.9 F Temperature Source Oral Pulse Rate 72 Pulse Strength Normal (2+) Respiratory Rate 16 Respiratory Effort Non-Labored Respiratory Depth Shallow Respiratory Pattern Blood Pressure 150/66 H Blood Pressure Mean 94 Blood Pressure Source Monitor Blood Pressure Position Supine Blood Pressure Location Right Arm Pulse Ox 94 Oxygen Delivery Method Room Air 08/27/24 07:25 08/27/24 07:55 08/27/24 07:55 Temperature 98 F Temperature Source Oral Pulse Rate 65 Pulse Strength Normal (2+) Respiratory Rate 18 Respiratory Effort Respiratory Depth Respiratory Pattern Blood Pressure 160/68 H Blood Pressure Mean 98 Blood Pressure Source Monitor Blood Pressure Position Semi-Fowlers Blood Pressure Location Right Arm Pulse Ox 95 100 Oxygen Delivery Method Room Air Room Air 08/27/24 08:21 Temperature Temperature Source Pulse Rate Pulse Strength Respiratory Rate Respiratory Effort Normal Non-Labored Respiratory Depth Normal Respiratory Pattern Normal Blood Pressure Blood Pressure Mean Blood Pressure Source Blood Pressure Position Blood Pressure Location Pulse Ox Oxygen Delivery Method Room Air Weight Weight: 151 lb 0.636 oz Body Mass Index (BMI) 28.5 Physical Exam Narrative Neurological exam of the lower extremity shows 5X5 power. Normal sensation across all dermatomes. Patient was able to complete bed mobility to roll to one side, physical examination of the back shows a well-healed midline incision, physical examination of the left side belly shows a well-healed incision. No midline tenderness or paraspinal tenderness. Const alert, oriented x3 and no apparent distress Lab / Micro Data 08/26/24 05:25 08/26/24 05:[address] done August 25, 2024: Trace anterolisthesis of L4 on L5, multilevel degenerative changes, moderate canal stenosis greatest at L2-3, moderate bilateral neuroforaminal stenosis at L1-2. No acute lumbar fracture. Assessment & Plan Assessment/Plan (1) Fusion of lumbar spine: (2) Spondylolisthesis, lumbar region: PLAN: Plan Patient receiving dexamethasone 4 mg IV every 6 hours. Patient taking cyclobenzaprine 5 mg 3 times daily which has seemed to have given her some benefit and help control the muscle spasms in her back. Recommended an injection with pain management, consult will be sent. Continue PT/OT to increase strength and walking endurance. At this time do not recommend any surgical options however if in the future she continues to have this pain with no benefit with the injection surgical options can be discussed at that time. Documented by User: Dr. Jin Rosales MD 08/27/24 13:13 HPI Consult Data Date of Consult: 08/27/24 [facility] Medical History (Updated 08/27/24 @ 13:[address] 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 Epigastric abdominal pain Liver metastasis 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 Wears dentures Sleep apnea History of TIA (transient ischemic attack) History of thyroid disease Back pain Neck pain Severe headache Stomach ulcer History of cancer Arthritis History of hypertension Medical History no medical history Home Medications ?Medication ?Instructions ?Recorded ?Last Taken ?Type fluoxetine 40 mg capsule 40 mg PO DAILY 06/16/17 08/25/24 History lisinopril 20 mg tablet 20 mg PO DAILY 09/25/20 08/25/24 History levothyroxine 125 mcg tablet 112 mcg PO DAILY 30 days #27 tabs 06/11/21 08/25/24 History hydrocodone-acetaminophen 5-325mg 1 tab PO Q6H PRN pain 07/16/22 08/25/24 History 5mg-325mg alprazolam 0.5 mg tablet 0.5 mg PO DAILY PRN anxiety 07/21/22 Unknown History letrozole 2.5 mg tablet 2.5 mg PO DAILY 02/16/24 08/25/24 History amlodipine 5 mg tablet 5 mg PO QHS 04/30/24 08/24/24 History clopidogrel 75 mg tablet 75 mg PO DAILY 04/30/24 08/25/24 History esomeprazole magnesium 20 mg 20 mg PO DAILY 04/30/24 08/25/24 History capsule,delayed release (Nexium) liothyronine 5 mcg tablet 5 mcg PO DAILY 05/21/24 08/25/24 History zolpidem 10 mg tablet 10 mg PO QHS 05/21/24 08/24/24 History acetaminophen 650 mg 650 mg PO PRN ARTHRITIS 08/25/24 08/24/24 History tablet,extended release cholecalciferol (vitamin D3) 50 50 mcg PO DAILY 08/25/24 08/24/24 History mcg (2,000 unit) capsule ferrous sulfate 325 mg (65 mg 325 mg PO DAILY 08/25/24 08/24/24 History iron) tablet (Feosol) multivitamin (Daily Multi-Vitamin 1 tab PO DAILY 08/25/24 08/24/24 History tablet) psyllium husk 3.4 gram/5.4 gram 1 tsp PO DAILY 08/25/24 08/24/24 History oral powder (Metamucil) Allergy/AdvReac Type Severity Reaction Status Date / Time shellfish derived Allergy Severe throat Verified 08/25/24 13:29 swelling adhesive tape AdvReac Rash Verified 08/25/24 13:29 Family History Mother Colon cancer passed from recurrence Thyroid disorder Father Hypertension CVA (cerebral vascular accident) Sister Breast cancer, Onset Age: 87 Aunt Colon cancer paternal Surgical History History of lumpectomy History of back surgery History of thyroid surgery Surgical History no surgical history Social History household members: spouse Smoking Status: Former smoker how long ago did patient quit smoking: >50 years ago; off and on for 2 years, socially only alcohol intake: current alcohol intake frequency: 0-2 drinks per day Alcohol type: wine details: socially substance use type: does not use additional social history: denies vaping, denies marijuana, denies edibles, denies aspirin and ibuprofen use Physical Exam Narrative Neurological exam of the lower extremity shows 5X5 power. Normal sensation across all dermatomes. Patient was able to complete bed mobility to roll to one side, physical examination of the back shows a well-healed midline and paramedian vertical incision, barely incision of forward lateral lumbar interbody fusion at L4-5 was not visible on the left. midline tenderness or paraspinal tenderness. Lab / Micro Data 08/26/24 05:25 08/26/24 05:25 Assessment & Plan Assessment/Plan (1) Fusion of lumbar spine: (2) Spondylolisthesis, lumbar region: PLAN: Plan Reviewed patient's CT scan of the lumbar spine done last Tuesday as well as MRI done this morning. These show prior L4-5 fusion which is well-healed and has only left-sided pedicle screws. L3-4 shows postsurgical changes of right laminotomy. Severe disc degeneration at L3-4 noticed along with facet arthrosis. L5-S1 shows grade 1 spondylolisthesis with facet arthrosis. No upright x-rays available done recently. Explained to her the imaging findings in detail. She has likely developed severe exacerbation/flareup of arthritic findings and L3-4 L5-S1 adjacent to her prior L4-5 fusion. She is otherwise neuro intact. She does not have any acute disc herniations or any other acute findings that could explain the sudden onset severe pain 2 days ago. Recommend continued pain control with possible consideration of pain management injections. Patient receiving dexamethasone 4 mg IV every 6 hours. Patient taking cyclobenzaprine 5 mg 3 times daily which has seemed to have given her some benefit and help control the muscle spasms in her back. Recommended an injection with pain management, consult will be sent. Continue PT/OT to increase strength and walking endurance. At this time do not recommend any surgical options however if in the future she continues to have this pain with no benefit with the injection surgical options can be discussed at that time. Charges/Coding Visit Charges Inpatient E&M: 88491 Init Hosp L3
[2024-08-27] MEDS: Ferrous Sulfate 325 MG Tablet PO (11:58)
[2024-08-27] MEDS: 0.9 % NaCl (Sterile) Posiflush 10 mL IV ×3 (11:58→21:22)
--- NOTE | 2024-08-27 12:54 | CHAPLAIN ---
Type of Pastoral Visit _x__ Initial Visit ___ Follow-up Visit ___ On-call Visit ___ General Patient Visit ___ Spiritual Assessment ___ Family Conference ___ Bereavement ___ Rapid Response ___ Code Blue ___ Other (describe below) Pastoral Care Referral From _x__ Patient _x__ Family ___ Nurse ___ Physician ___ Travel Cota ___ Preschool Aide ___ Other (describe below) Sacrament/Intervention _x__ Active listening ___ Anointing ___ Advent ___ Bereavement ___ Communion ___ Letha exploration ___ ___ Life review _x__ Prayer ___ Reconciliation ___ Sacrament of Sick _x__ Supportive presence ___ Wedding ___ Other (describe below) Pastoral Comments patient and spouse are together in the room; 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
--- NOTE | 2024-08-27 13:52 | CASEMGMT ---
CRISTINA VIERIA Assessment Face to Face with patient for initial transition planning/care coordination assessment. CRISTINA VIEIRA introduced self and role at [facility], pt voices understanding. Pt is A&Ox4 and is resting comfortably in bed and is calm. Pt at bedside. Care providers, pharmacy, and demographics verified. Admitting dx: Intractable Back Pain with inability to ambulate LACE Strata: 3 PCP: Tami Chang Specialists: Bobby (Ortho), Isra (Oncology). Dr Calle with PM is consulted Preferred Pharmacy: [facility] during this stay Insurance: [employer] [facility] Prescription Benefit: Yes LNOK: Tavon Dang (H), Camila Vela (Daughter) Living Arrangements: Pt lives with her in a single story home with 3 steps to enter with a handrail ADLs/IADLs: States independent at baseline but is currently requiring assistance x 2 per nursing Transportation: Self, DME: grab bars, shower chair, access to canes and walkers HHC/SNF: Denies HHC and SNF history. Reports history @ for OP PT. Pt?s goal: Home Plan: TBD. At this time, the pt is unsure of what she will need or want at the time of DC. PT/OT is pending. Ortho reports that surgery is not advised at this time unless the pain continues. Ortho consulted PM for an injection tomorrow. CM and SW to follow for SNF vs HH vs OP Tx. Pt and pt agree and deny further concerns or needs at this time. CM and SW to follow. Abida Garcia RN, CM
[2024-08-27 14:35] VITALS: BP 125/56; PULSE 77; RESP 18; TEMP 36.6; O2SAT 99
--- NOTE | 2024-08-27 14:40 | PN.HOSP_ITS ---
Reason for Visit Reason for Visit: Diagnoses Other chronic pain (08/25/24) Spondylolisthesis, lumbar region (08/25/24) Fusion of spine, lumbar region (08/25/24) Low back pain, unspecified (08/25/24) Muscle spasm of back (08/25/24) Difficulty in walking, not elsewhere classified (08/25/24) Subjective Subjective Patient was seen and examined today, her back pain is improved from yesterday. She had an MRI performed today which did not show evidence of a ruptured disc, there is no evidence of any compression fracture either. I talked briefly with Dr. Cárdenas who saw her in consultation, he would like pain management to see her for possible back injection, I talked with Dr Hess about it and he will see her this afternoon Objective Data Objective Data Vital Signs: Vital Signs Temp Pulse Resp BP Pulse Ox O2 Del Method 97.9 F 77 18 125/56 H 99 Room Air 08/27/24 14:35 08/27/24 14:35 08/27/24 14:35 08/27/24 14:35 08/27/24 14:35 08/27/24 14:35 Oxygen Delivery Method Room Air Weight: 68.51 kg Body Mass Index (BMI) 28.5 Intake & Output: Intake and Output for Last 24 Hours 08/25/24 08/26/24 08/27/24 23:59 23:59 23:59 Intake Total 650 / 650 120 / 120 Output Total 1050 / 1050 700 / 700 Balance -400 / -400 -580 / -580 Lab / Micro Data 08/26/24 05:25 08/26/24 05:25 Radiography Diagnostic Testing: Radiology Impression Lumbar Spine MRI 08/27/24 09:00 IMPRESSION: 1. Previous spinal fusion at the L4-5 level. 2. Multilevel degenerative changes are present which are greatest at the postoperative transitional levels of L3-4 and L5-S1. Details of the degenerative changes in the body of the report. 3. Mild spondylolisthesis also present at the transitional levels. 4. A T2 hypointense lesion is incidentally noted in the T6 vertebral body on the laborer petroleum refinery views, which is indeterminate. Consider dedicated thoracic imaging for further assessment. Reading Location: [facility] Physical Exam Narrative alert, oriented x3, no apparent distress and average body habitus Constitutional Narrative: Patient appears younger than her stated age General Appearance: cooperative, well kempt and well developed Orientation / Consciousness: awake, oriented to person, oriented to place and oriented to time HEENT normocephalic, head/scalp atraumatic and moist oral mucous membranes Eyes PERRL, EOMs intact bilaterally and conjunctivae normal Neck supple, no JVD, thyroid normal and no carotid bruits General: trachea midline Resp normal respiratory effort, no retractions, no use of accessory muscles and clear to auscultation bilaterally Auscultation: Negative for rales, rhonchi or wheezes Cardio regular rate, regular rhythm, S1 normal heart sound, S2 normal heart sound, no murmurs, no rub and no gallops GI normal to inspection, nondistended, normoactive bowel sounds, soft to palpation, non-tender and non-distended Extremity no clubbing, cyanosis or edema Skin no rashes or lesions noted General Skin Exam: no breakdown Neuro oriented x3, CN's II-XII intact bilaterally, moves all extremities, no focal motor deficits and no sensory deficits noted Sensorium / Orientation: awake and alert Speech: speech normal Psych affect normal Assessment & Plan Assessment/Plan (1) Acute on chronic low back pain: PLAN: Plan 1. 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
--- NOTE | 2024-08-27 18:35 | EKG12_ITS ---
Test Reason : AM EKG Blood Pressure : */* mmHG Vent. Rate : 63 BPM Atrial Rate : 63 BPM P-R Int : 128 ms QRS Dur : 100 ms QT Int : 430 ms P-R-T Axes : 35 25 25 degrees QTcB Int : 440 ms Normal sinus rhythm Normal ECG When compared with ECG of 04-Jun-2024 08:58, No significant change was found Confirmed by PALMIRA YOUNG, ANATOLY ([id number]), technical editor EDELMIRA FISHER ([id number]) on 08/29/2024 7:18:55 AM Referred By: DEANNA Confirmed By: ANATOLY CHAVIS MD
[2024-08-27 21:00] VITALS: BP 140/70; PULSE 66; RESP 15; TEMP 36.7; O2SAT 98
[2024-08-27] MEDS: amLODIPine 5 MG Tablet PO (21:22)
[2024-08-27] MEDS: Zolpidem Tartrate 5 MG Tablet 10 MG PO (21:32)
[2024-08-28] VITALS (13 sets, daily range): BP systolic 116–187; BP diastolic 64–86; PULSE 58–67; RESP 15–18; TEMP 36.1–37; O2SAT 95–100
[2024-08-28] MEDS: 0.9% Saline Lock 10 ML Syringe IV (00:13)
[2024-08-28] MEDS: dexAMETHasone 4 MG/ML Vial IV ×4 (00:13→17:29)
[2024-08-28] MEDS: Liothyronine 5 MCG Tablet PO (05:24)
[2024-08-28] MEDS: Levothyroxine 112 MCG Tablet PO (05:24)
[2024-08-28] MEDS: Acetaminophen 500 MG Tablet 1000 MG PO ×2 (05:24→21:11)
[2024-08-28] MEDS: cycloBENZAPRine HCl 5 MG TABLET PO ×2 (05:24→21:10)
[2024-08-28] MEDS: 0.9 % NaCl (Sterile) Posiflush 10 mL IV ×3 (05:25→17:30)
[2024-08-28] MEDS: Lisinopril 20 MG Tablet PO (08:41)
[2024-08-28] MEDS: oxyCODONE HCl Cr 10 MG Tablet PO ×2 (08:41→21:11)
[2024-08-28 09:05] LABS: Hematocrit 35.1 % (37-47); Hemoglobin 11.9 g/dL (12.0-15.0); Mean Corp Hgb Conc 33.9 g/dL (32-36); Mean Corpuscular Hgb 29.9 pg (27.0-32.0); Mean Corpuscular Volume 88.2 fL (81-99); Mean Platelet Vol. 9.5 fl (6.2-12.0); Platelet Count 364 K/mm3 (150-450); RBC Distribution Width CV 15.1 % (11.6-14.6); RBC Distribution Width SD 48.7 fl (35.1-43.9); Red Blood Count 3.98 M/mm3 (4.2-5.4); White Blood Count 9.3 K/mm3 (4.4-11.0)
[2024-08-28 09:43] LABS: Thyroid Stim Hormone (TSH) 0.122 uIU/mL (0.300-4.200)
--- NOTE | 2024-08-28 13:58 | PRE.ANES_ITS ---
ASA Classification* ASA Classification ASA Classification: 3 Assessment & Plan Anesthesia* Anesthesia Assessment Anesthesia Assessment: Discussed sedation and/or anesthesia options, risks, benefits, and alternatives with patient/parents/legal guardian/POA. Questions invited. The patient/parents/legal guardian/POA seems to understand and agrees to proceed with anesthesia plan. Reviewed the physical assessment, medical history, allergy history and patient home medications list prior to surgery/procedure/anesthetic and documented any changes. Performed airway and anesthesia risk assessments. Anesthesia Type Anesthesia Type: MAC History Source History Obtained from:: Patient and Chart Anesthesia Focused Assessment* Temperature: 97.7 F Pulse Rate: 66 Blood Pressure: 158/66 Respiratory Rate: 18 Pulse Ox: 100 Oxygen Delivery Method: Room Air Airway Assessment Mouth opens: >3 cm Mallampati Score: I Teeth Condition: Dentures (Patient has full upper and lower dentures.) Neck Range of motion (ROM): Limited ROM (Slight decrease in extension) Focused Labs Anesthesia Preop lab: CBC WBC 9.3 K/mm3 (4.4-11.0) 08/28/24 08:56 08/28/24 RBC 3.98 M/mm3 (4.2-5.4) L 08/28/24 08:56 08/28/24 Hgb 11.9 g/dL (12.0-15.0) L 08/28/24 08:56 5 Hct 35.1 % (37-47) L 08/28/24 08:56 08/28/24 Plt Count 364 K/mm3 (150-450) 08/28/24 08:56 08/28/24 CHEMISTRY Potassium 4.4 mmol/L (3.3-5.1) 08/26/24 05:25 08/26/24 Sodium 135 mmol/L (133-145) 08/26/24 05:25 08/26/24 Magnesium 2.0 mg/dL (1.8-2.4) 12/21/16 10:25 12/21/16 Phosphorus 3.7 mg/dL (2.5-4.9) 11/07/19 09:54 11/07/19 BUN 14 mg/dL (4-19) 08/26/24 05:25 08/26/24 Creatinine 0.68 mg/dL (0.70-1.20) L 08/26/24 05:25 Glucose 121 mg/dL (70-99) H 08/26/24 05:25 08/26/24 TSH 0.122 uIU/mL (0.300-4.200) L 08/28/24 08:56 COAG PT 13.4 SECONDS (11.7-14.9) 12/25/18 15:07 Pre-Assessment Diagnosis/Proposed Procedure Planned Operative Procedure(s): Lumbar facet block. 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 When Was Last Pacemaker Check QUESTION #4 FULL TEXT: You/Your Family Experience fever (hyperthermia) with Anesthesia Last Oral Intake Last Oral intake: Last Oral Intake NPO since Meds taken in AM with sips of water? Meds patient instructed to take am of surgery Any additional information?: Yes NPO since: 00:00 Meds taken in AM with sips of water?: Yes PONV PONV - broadcast operations engineer: PONV - broadcast operations engineer Female HX of Motion Sickness HX of N/V After Surgery Non-Smoker Duration of Surgery greater than 60 minutes Number of Risk Factors PONV Score Height & Weight Height & Weight: Anesthesia: Height & Weight Height 5 ft 1 in 08/25/24 18:12 Weight: 68.51 kg 08/25/24 18:12 Body Mass Index (BMI) 28.5 08/25/24 18:12 Respiratory Assessment Respiratory Assessment - broadcast operations engineer: Respiratory Tract Infection Hx - broadcast operations engineer Hx Respiratory Tract Infection No 05/21/24 09:03 STOP Sleep Apnea STOP Sleep Apnea - broadcast operations engineer: STOP Sleep Apnea - broadcast operations engineer Hx Hypertension Yes 08/27/24 14:23 Hx Sleep Apnea Yes: unable to use cpap 08/25/24 18:42 CPAP No 08/25/24 18:42 BIPAP No 08/25/24 18:42 Do you snore loudly (louder than talking or can be heard Do you often feel tired/ fatigued/ sleepy during daytime? Has anyone observed you stop breathing during sleep? STOP Results Positive 08/25/24 18:42 QUESTION #5 FULL TEXT : Do you snore loudly (louder than talking or can be heard through closed doors)? 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 Specify any problems Hx of Preganancy in last 3 No 08/25/24 18:42 Months Nurse Filling Out Transfusion ACOEY 08/25/24 18:42 & Questions: Date: 08/25/24 08/25/24 18:42 Time: 18:45 08/25/24 18:42 Patient unable to answer at this time (ie. confused, unrespo /Reproduction History /Reproductive History - broadcast operations engineer: /Reproductive Hx- broadcast operations engineer Hx Now Gestational Age (in weeks): EDC: Hx Hx Para Hx Section SAB Active Medications Active Medications: Current Medications Generic Name Dose Route Start Last Admin Trade Name Freq PRN Reason Stop Dose Admin Acetaminophen 1,000 mg 08/25/24 22:00 08/28/24 12:09 Acetaminophen 500 Mg Tablet PO Not Given Q8 WILLIAM Alprazolam 0.5 mg 08/26/24 09:19 Alprazolam 0.5 Mg Tablet PO TID PRN PRN ANXIETY Amlodipine Besylate 5 mg 08/25/24 22:00 08/27/24 21:22 Amlodipine 5 Mg Tablet PO 5 mg QHS [facility] Administration Protocol Cholecalciferol 50 mcg 08/26/24 10:00 08/28/24 08:30 Cholecalciferol (Vit D3) 25 Mcg Tablet (1,000 Units) PO Not Given DAILY [facility] Clopidogrel Bisulfate 75 mg 08/26/24 10:00 08/28/24 08:29 Clopidogrel Bisulfate 75 Mg Tablet PO Not Given DAILY [facility] Cyclobenzaprine HCl 5 mg 08/26/24 11:00 08/28/24 12:09 Cyclobenzaprine Hcl 5 Mg Tablet PO Not Given TID [facility] Dexamethasone Sodium Phosphate 4 mg 08/26/24 12:00 08/28/24 11:47 Dexamethasone 4 Mg/Ml Vial IV 4 mg Q6 [facility] Administration Ferrous Sulfate 325 mg 08/26/24 12:00 08/28/24 09:29 Ferrous Sulfate 325 Mg Tablet PO Not Given DAILY@1200 [facility] Fluoxetine HCl 40 mg 08/26/24 10:00 08/28/24 08:29 Fluoxetine Hcl 40 Mg Capsule PO Not Given DAILY [facility] Hydromorphone HCl 0.5 mg 08/25/24 18:11 08/25/24 18:26 Hydromorphone 0.5 Mg/0.5 Ml Syringe IV 0.5 mg Q4H PRN PRN Administration Pain Score 6-10 Sodium Chloride 100 mls @ 15 mls/hr 08/25/24 18:15 IV .Q6H40M PRN Saline Flush Sodium Chloride 100 mls @ 15 mls/hr 08/25/24 18:15 IV .Q6H40M PRN Additional IVPB Infusion Letrozole 2.5 mg 08/26/24 10:00 08/28/24 08:41 Letrozole 2.5 Mg Tablet PO 2.5 mg DAILY [facility] Administration Levothyroxine Sodium 112 mcg 08/26/24 06:00 08/28/24 05:24 Levothyroxine 112 Mcg Tablet PO 112 mcg DAILY@0600 [facility] Administration Lidocaine 1 patch 08/25/24 18:11 08/28/24 08:29 Lidocaine 5% Patch TOPICAL Not Given DAILY [facility] Protocol Liothyronine Sodium 5 mcg 08/26/24 06:00 08/28/24 05:24 Liothyronine 5 Mcg Tablet PO 5 mcg DAILY@0600 WILLIAM Administration Lisinopril 20 mg 08/26/24 10:00 08/28/24 08:41 Lisinopril 20 Mg Tablet PO 20 mg DAILY WILLIAM Administration Protocol Multivitamins 1 tablet 08/26/24 08:00 08/28/24 08:29 Multivitamins,Therapeutic [facility]t [facility] Ondansetron HCl 4 mg 08/25/24 18:11 Ondansetron 4 Mg/2 Ml Vial IV Q8H PRN PRN NAUSEA/VOMITING Oxycodone HCl 5 mg 08/25/24 18:11 08/26/24 19:57 Oxycodone 5 Mg Tablet PO 5 mg Q4H PRN PRN Administration Pain Score 4-10 Oxycodone HCl 10 mg 08/26/24 11:00 08/28/24 08:41 Oxycodone Hcl Cr 10 Mg Tablet PO 10 mg BID WILLIAM Administration Pantoprazole Sodium 20 mg 08/26/24 10:00 08/28/24 08:29 Pantoprazole Sodium 20 Mg Tablet PO Not Given DAILY WILLIAM Polyethylene Glycol 17 gm 08/25/24 18:11 Polyethylene Glycol 3350 17 Gm Packet PO DAILY PRN constipation Senna 1 tablet 08/25/24 22:00 08/28/24 08:29 Senna Tablet PO Not Given BID WILLIAM Sodium Chloride 10 - 40 ml 08/25/24 18:15 08/28/24 11:47 0.9 % Nacl (Sterile) Posiflush 10 Ml IV 10 ml UD PRN Administration Port access or dressing change Sodium Chloride 10 - 40 ml 08/25/24 18:15 08/28/24 00:13 0.9% Saline Lock 10 Ml Syringe IV 10 ml UD PRN Administration Port-a-Cath (VAD)/R Port Flush Zolpidem Tartrate 10 mg 08/25/24 18:17 08/27/24 21:32 Zolpidem Tartrate 5 Mg Tablet PO 10 mg QHS PRN Administration INSOMNIA PFSH Medical History Breast cancer Liver cancer Wears glasses Post-menopausal Cancer Depression Anxiety Alcohol use Thyroid disease Anemia Easy bruising Excessive bleeding Back pain TIA (transient ischemic attack) History of hiatal hernia History of ulceration History of IBS Gastric reflux Former smoker Shortness of breath on exertion History of echocardiogram Hypertension History of irregular heartbeat History of rheumatic fever LUQ pain 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 Epigastric abdominal pain Liver metastasis 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 Wears dentures Sleep apnea History of TIA (transient ischemic attack) History of thyroid disease Back pain Neck pain Severe headache Stomach ulcer History of cancer Arthritis History of hypertension Medical History no medical history Home Medications ?Medication ?Instructions ?Recorded ?Last Taken ?Type fluoxetine 40 mg capsule 40 mg PO DAILY 06/16/1708/05 History lisinopril 20 mg tablet 20 mg PO DAILY 09/25/2008/05 History levothyroxine 125 mcg tablet 112 mcg PO DAILY 30 days #27 tabs 06/11/21 08/28/24 History hydrocodone-acetaminophen 5-325mg 1 tab PO Q6H PRN josé miguel n 07/16/22 08/25/24 History 5mg-325mg alprazolam 0.5 mg tablet 0.5 mg PO DAILY PRN anxiety 07/21/22 Unknown History letrozole 2.5 mg tablet 2.5 mg PO DAILY 02/16/24 History amlodipine 5 mg tablet 5 mg PO QHS 04/30/24 5 History clopidogrel 75 mg tablet 75 mg PO DAILY 04/30/2408/05 History esomeprazole magnesium 20 mg 20 mg PO DAILY 04/30/24 0 08/25/24 History capsule,delayed release (Nexium) liothyronine 5 mcg tablet 5 mcg PO DAILY 05/21/2408/05 History zolpidem 10 mg tablet 10 mg PO QHS 05/21/24 History acetaminophen 650 mg 650 mg PO PRN ARTHRITIS 08/0508/28/24 History tablet,extended release cholecalciferol (vitamin D3) 50 50 mcg PO DAILY 08/24/24 History mcg (2,000 unit) capsule ferrous sulfate 325 mg (65 mg 325 mg PO DAILY 08/25/24 08/24/24 History iron) tablet (Feosol) multivitamin (Daily Multi-Vitamin 1 tab PO DAILY 08/2508/24/24 History tablet) psyllium husk 3.4 gram/5.4 gram 1 tsp PO DAILY 5 08/24/24 History oral powder (Metamucil) Allergy/AdvReac Type Severity Reaction Status Date / Time shellfish derived Allergy Severe throat Verified 08/25/24 13:29 swelling adhesive tape AdvReac Rash Verified 08/25/24 13:29 Family History Mother Colon cancer passed from recurrence Thyroid disorder Father Hypertension CVA (cerebral vascular accident) Sister Breast cancer, Onset Age: 87 Aunt Colon cancer paternal Family History no significant family his Surgical History History of lumpectomy History of back surgery History of thyroid surgery Surgical History no surgical history Social History household members: spouse Smoking Status: Former smoker how long ago did patient quit smoking: >50 years ago; off and on for 2 years, socially only alcohol intake: current alcohol intake frequency: 0-2 drinks per day Alcohol type: wine details: socially substance use type: does not use additional social history: denies vaping, denies marijuana, denies edibles, denies aspirin and ibuprofen use Review of Systems (Anesthesia) ROS Narrative System reviewed and no additional complaints, except as documented.
--- NOTE | 2024-08-28 14:30 | RAD_ITS ---
EXAM: XR Lumbosacral Spine, 2 or 3 Views CLINICAL INDICATION: L4/L5 AND L5/S1 BLOCK TECHNIQUE: Frontal and lateral views of the lumbar spine and sacrum. COMPARISON: No relevant prior studies available. FINDINGS: VERTEBRAE: Unremarkable. No acute fracture. Normal alignment. SACRUM/COCCYX: Unremarkable as visualized. No acute fracture. DISC SPACES: No acute findings. No significant narrowing. SOFT TISSUES: Unremarkable. OTHER FINDINGS: Fluoroscopic guidance was used intraoperatively. 6 images were obtained. Total fluoroscopy time 11.4 seconds. Total radiation dose 2.29 mGy. RAD/Lumbar Spine 2 or 3 Views IMPRESSION: Fluoroscopic guidance used intraoperatively. Please refer to the operative not e for further details. Reading Location: [facility]
--- NOTE | 2024-08-28 14:32 | CHAPLAIN ---
Type of Pastoral Visit ___ Initial Visit _x__ Follow-up Visit ___ On-call Visit ___ General Patient Visit ___ Spiritual Assessment ___ Family Conference ___ Bereavement ___ Rapid Response ___ Code Blue ___ Other (describe below) Pastoral Care Referral From ___ Patient _x__ Family ___ Nurse ___ Physician ___ Fire Equipment Operator ___ Wash Mill Operator ___ Other (describe below) Sacrament/Intervention _x__ Active listening ___ Anointing ___ Oriental Orthodox ___ Bereavement ___ Communion ___ Letha exploration ___ ___ Life review _x__ Prayer ___ Reconciliation ___ Sacrament of Sick __x_ Supportive presence ___ Wedding ___ Other (describe below) Pastoral Comments patient is to have an injection today with the hopes of pain relief; spouse is with her; both request prayer for the success of the injection and being able then to go home; other casual conversation continues about letha and anglican community
[2024-08-28] MEDS: Triamcinolone Acetonide 40 MG/ML Vial (15:11)
[2024-08-28] MEDS: Bupivacaine 0.25% 30 ML Vial (15:12)
--- NOTE | 2024-08-28 15:25 | PCM.POST.ANE ---
Anesthesia: Postop Eval I Current Vital Signs Temperature: 96.9 F Pulse Rate: 60 Blood Pressure: 187/75 Respiratory Rate: 16 Pulse Ox: 96 Oxygen Delivery Method: Room Air Assessment Airway patent: Yes Spontaneous unlabored respirations: Yes Mental status: Awake nausea: No Vomiting: No Anesthesia Complication: No Fluid Hydration Crystalloid volume administer (ml): 10 Total IV fluid infused: 10 Progress Note Anesthesia document: Postop Eval 1 completed: Yes
--- NOTE | 2024-08-28 16:16 | PCM.PN.ORT ---
Subjective Subjective Saw patient in room 320 around noon today. She is able to stand and take a few steps with PT yesterday. She is n.p.o. right now for planned pain management injections. Her pain is slightly better but she has not been able to sit up as yet. She continues to be in a Pritchett. Objective Data Objective Data Vital Signs: Vital Signs Temp Pulse Resp BP Pulse Ox O2 Del Method 97.8 F 61 18 157/67 H 100 Room Air 08/28/24 15:50 08/28/24 15:50 08/28/24 15:50 08/28/24 15:50 08/28/24 15:50 08/28/24 15:50 Oxygen Delivery Method Room Air Weight: 151 lb 0.636 oz Body Mass Index (BMI) 28.5 Intake & Output: Intake and Output for Last 24 Hours 08/26/24 08/27/24 08/28/24 23:59 23:59 23:59 Intake Total 650 / 650 120 / 120 Output Total 1050 / 1050 1100 / 1250 800 / 800 Balance -400 / -400 -980 / -1130 -800 / -800 Lab / Micro Data 08/28/24 08:56 08/26/24 05:25 Labs: Laboratory Results - last 24 hr 08/28/24 08:56: WBC 9.3, RBC 3.98 L, Hgb 11.9 L, Hct 35.1 L, MCV 88.2, MCH 29.9, MCHC 33.9, RDW Std Deviation 48.7 H, RDW Coeff of James 15.1 H, Plt Count 364, MPV 9.5, TSH 0.122 L Radiography Diagnostic Testing: Radiology Impression Lumbar Spine X-Ray 08/28/24 14:30 IMPRESSION: Fluoroscopic guidance used intraoperatively. Please refer to the operative note for further details. Reading Location: [facility] Physical Exam Narrative Neurological exam of the lower extremity shows 5X5 power. Normal sensation across all dermatomes. Patient was able to complete bed mobility to roll to one side, physical examination of the back shows a well-healed midline and paramedian vertical incision, barely incision of forward lateral lumbar interbody fusion at L4-5 was not visible on the left. midline tenderness or paraspinal tenderness. Const alert, oriented x3 and no apparent distress Assessment & Plan Assessment/Plan (1) Fusion of lumbar spine: (2) Spondylolisthesis, lumbar region: PLAN: Plan Again reviewed patient's CT scan of the lumbar spine done last Tuesday as well as MRI done during this admission. These show prior L4-5 fusion which is well-healed and has only left-sided pedicle screws. L3-4 shows postsurgical changes of right laminotomy. Severe disc degeneration at L3-4 noticed along with facet arthrosis. L5-S1 shows grade 1 spondylolisthesis with facet arthrosis. No upright x-rays available done recently. Discussed with Dr. Calle yesterday evening, as there is very low likelihood of discitis or any infectious pathology as the MRI was with contrast and did not show any significant imaging findings of infectious pathology. Okay to proceed with injections from my perspective. At this time do not recommend any surgical options however if in the future she continues to have this pain with no benefit with the injection surgical options can be discussed at that time. Charges/Coding Visit Charges Inpatient E&M: 11205 Subs Hosp L2
--- NOTE | 2024-08-28 18:45 | PCM.PN.HOSP ---
Reason for Visit Reason for Visit: Diagnoses Other chronic pain (08/25/24) Spondylolisthesis, lumbar region (08/25/24) Fusion of spine, lumbar region (08/25/24) Low back pain, unspecified (08/25/24) Muscle spasm of back (08/25/24) Difficulty in walking, not elsewhere classified (08/25/24) Subjective Subjective Back injection today. Scheduled for the afternoon. Still has not seen therapy today so we will have to hold off on discharge. Remove Pritchett. Objective Data Objective Data Vital Signs: Vital Signs Temp Pulse Resp BP Pulse Ox O2 Del Method 97.8 F 61 18 157/67 H 100 Room Air 08/28/24 15:50 08/28/24 15:50 08/28/24 15:50 08/28/24 15:50 08/28/24 15:50 08/28/24 15:50 Oxygen Delivery Method Room Air Weight: 68.51 kg Body Mass Index (BMI) 28.5 Intake & Output: Intake and Output for Last 24 Hours 08/26/24 08/27/24 08/28/24 23:59 23:59 23:59 Intake Total 650 / 650 120 / 120 Output Total 1050 / 1050 1100 / 1250 1150 / 1150 Balance -400 / -400 -980 / -1130 -1150 / -1150 Lab / Micro Data 08/28/24 08:56 08/26/24 05:25 Labs: Laboratory Results - last 24 hr 08/28/24 08:56: WBC 9.3, RBC 3.98 L, Hgb 11.9 L, Hct 35.1 L, MCV 88.2, MCH 29.9, MCHC 33.9, RDW Std Deviation 48.7 H, RDW Coeff of James 15.1 H, Plt Count 364, MPV 9.5, TSH 0.122 L Radiography Diagnostic Testing: Radiology Impression Lumbar Spine X-Ray 08/28/24 14:30 IMPRESSION: Fluoroscopic guidance used intraoperatively. Please refer to the operative note for further details. Reading Location: [facility] Physical Exam Const alert, oriented x3, no apparent distress and well nourished HEENT head/scalp atraumatic and moist oral mucous membranes Head and Scalp: normocephalic Neuro oriented x3, moves all extremities and no focal motor deficits Psych affect normal Psych Narrative: Very pleasant, interacts appropriately Assessment & Plan Assessment/Plan (1) Spondylolisthesis, lumbar region: (2) Acute on chronic low back pain: (3) Fusion of lumbar spine: (4) Unable to ambulate: (5) Acute urinary retention: PLAN: Plan Acute on chronic back pain -History of spondylolisthesis and fusion of lumbar spine -MRI done this admission which shows no acute processes but does showed severe degeneration at L3 and L4 along with facet arthrosis -Plan is for epidural injections today -Will need therapy to evaluate prior to discharge to make sure she is mobile enough to go home -Hopeful for discharge tomorrow Urinary retention -Discontinue Pritchett and monitor for further retention Hypothyroidism -Continue home levothyroxine -Continue home Liothyronine Essential hypertension -Continue home amlodipine -Continue home lisinopril Metastatic breast cancer -Continue letrozole -Follows with Dr. Dhaliwal -Findings on MRI were discussed with him and all findings were chronic History of Nguyen's esophagus -Continue on PPI History of TIA -Continue Plavix Vitamin D deficiency -Continue vitamin D supplementation Depression/insomnia -Continue home zolpidem -Continue fluoxetine DVT prophylaxis -Start enoxaparin CODE STATUS -Full code as verified Charges/Coding Visit Charges Inpatient E&M: 16432 [facility] Hosp L1
--- NOTE | 2024-08-28 19:37 | POSTOPAN2_ITS ---
Anesthesia Postop Eval I Sum Postop Eval Completion status Anesthesia document: Postop Eval 1 completed: Yes Anesthesia Postop Eval I Summary Anesthesia Postop Eval I Summary: Anesthesia Postop Eval I: Assessment Summary Airway patent Yes 08/28/24 15:26 [email or web address] Spontaneous unlabored Yes 08/28/24 15:26 [email or web address] respirations Mental status Awake 08/28/24 15:26 [email or web address] nausea No 08/28/24 15:26 [email or web address] Vomiting No 08/28/24 15:26 [email or web address] Anesthesia Postop Eval I: Fluid Summary Crystalloid volume administer 10 08/28/24 15:26 [email or web address] (ml) Colloids volume administered ( ml) Blood Product volume administered (ml) Total IV fluid infused 10 08/28/24 15:26 [email or web address] Anesthesia Postop Eval I: Summary Notes Anesthesia Complication No 08/28/24 15:26 [email or web address] Anesthesia Complication Comment: Post-operative progress note Anesthesia: Postop Eval II Evaluation Mental status: Awake and Calm Pain Level: 3 nausea: No Vomiting: No Complications Anesthesia Complication: No
--- NOTE | 2024-08-28 19:37 | PCM.POSTANE2 ---
Anesthesia Postop Eval I Sum Postop Eval Completion status Anesthesia document: Postop Eval 1 completed: Yes Anesthesia Postop Eval I Summary Anesthesia Postop Eval I Summary: Anesthesia Postop Eval I: Assessment Summary Airway patent Yes 08/28/24 15:26 SENIOR QUALITATIVE [email or web address] Spontaneous unlabored Yes 08/28/24 15:26 SENIOR QUALITATIVE [email or web address] respirations Mental status Awake 08/28/24 15:26 SENIOR QUALITATIVE [email or web address] nausea No 08/28/24 15:26 SENIOR QUALITATIVE [email or web address] Vomiting No 08/28/24 15:26 SENIOR QUALITATIVE [email or web address] Anesthesia Postop Eval I: Fluid Summary Crystalloid volume administer 10 08/28/24 15:26 SENIOR QUALITATIVE [email or web address] (ml) Colloids volume administered ( ml) Blood Product volume administered (ml) Total IV fluid infused 10 08/28/24 15:26 SENIOR QUALITATIVE [email or web address] Anesthesia Postop Eval I: Summary Notes Anesthesia Complication No 08/28/24 15:26 SENIOR QUALITATIVE [email or web address] Anesthesia Complication Comment: Post-operative progress note Anesthesia: Postop Eval II Evaluation Mental status: Awake and Calm Pain Level: 3 nausea: No Vomiting: No Complications Anesthesia Complication: No
[2024-08-28] MEDS: amLODIPine 5 MG Tablet PO (21:10)
[2024-08-28] MEDS: Zolpidem Tartrate 5 MG Tablet 10 MG PO (21:10)
[2024-08-28] MEDS: Senna Tablet 1 TABLET PO (21:10)
[2024-08-28] MEDS: Enoxaparin 40 MG/0.4 ML Syringe SC (21:11)
[2024-08-29] MEDS: dexAMETHasone 4 MG/ML Vial IV ×3 (00:46→12:06)
[2024-08-29] MEDS: 0.9% Saline Lock 10 ML Syringe IV ×2 (00:46→05:11)
[2024-08-29 00:50] VITALS: BP 146/72; PULSE 61; RESP 15; TEMP 36.4; O2SAT 99
[2024-08-29] MEDS: Liothyronine 5 MCG Tablet PO (05:08)
[2024-08-29] MEDS: Levothyroxine 112 MCG Tablet PO (05:09)
[2024-08-29] MEDS: Acetaminophen 500 MG Tablet 1000 MG PO ×2 (05:09→13:57)
[2024-08-29] MEDS: cycloBENZAPRine HCl 5 MG TABLET PO (05:09)
[2024-08-29 05:20] VITALS: BP 158/73; PULSE 63; RESP 16; TEMP 36.9; O2SAT 97
[2024-08-29 08:00] VITALS: BP 164/65; PULSE 67; RESP 16; TEMP 36.6; O2SAT 99
[2024-08-29] MEDS: Senna Tablet 1 TABLET PO (08:22)
[2024-08-29] MEDS: Cholecalciferol (VIT D3) 25 MCG TABLET (1,000 UNITS) 50 MCG PO (08:22)
[2024-08-29] MEDS: Multivitamins,Therapeutic Tablet 1 TABLET PO (08:22)
[2024-08-29] MEDS: Clopidogrel Bisulfate 75 MG Tablet PO (08:22)
[2024-08-29] MEDS: Fluoxetine HCl 40 MG CAPSULE PO (08:22)
[2024-08-29] MEDS: Pantoprazole Sodium 20 MG Tablet PO (08:22)
[2024-08-29] MEDS: Lisinopril 20 MG Tablet PO (08:23)
[2024-08-29] MEDS: Enoxaparin 40 MG/0.4 ML Syringe SC (08:24)
[2024-08-29] MEDS: oxyCODONE HCl Cr 10 MG Tablet PO (09:40)
--- NOTE | 2024-08-29 10:06 | CASEMGMT ---
Addendum entered by Marly Verduzco 08/29/24 14:18: [id number] into pt room, pt states she does not feel that she needs OP therapy but she would like a list of exercises for at home. TC to therapy, spoke with PT who states pt exercise would be walking. Pt and aware of this. She denies further needs. Pt FWW has been delivered to room. Pt to dc this date. Original Note: CRISTINA VIEIRA into pt room, pt sitting up in chair with at bedside. Pt states she feels much better now. Therapy has not worked with her yet today but she states she will need a FWW for homegoing. Provided pt with a verbal local in network list of DME providers, pt chose [facility]. Pt states she does not feel she will need any HH therapy as she has had back surgeries in the past but may want to do OP therapy. CRISTINA VIEIRA will meet with pt again once therapy works with her. [facility] to [facility].
[2024-08-29] MEDS: 0.9 % NaCl (Sterile) Posiflush 10 mL IV ×2 (12:06→13:54)
[2024-08-29] MEDS: Ferrous Sulfate 325 MG Tablet PO (12:06)
--- NOTE | 2024-08-29 12:36 | PCM.DC.SUM ---
Providers Date of Admission: 08/25/24 Date of Discharge: 08/29/24 Primary Care Physician: Dr. Tami Chang MD Consultations 08/25/24 18:11 Consult: Pain Management Routine Consulting Provider: Wendy Calle Reason for Consult: acute on chronic low back pain w/ spasms EMERGENT Consult: No Notified: Yes Date Notified: 08/25/24 Time Notified: 17:52 Method of Notification: Text 08/27/24 14:33 Consult: Orthopedics Routine Consulting Provider: Jin Rosales Reason for Consult: Lumbar pain EMERGENT Consult: No Notified: Yes Date Notified: 08/27/24 Time Notified: 14:34 Method of Notification: Verbal 08/27/24 14:39 Consult: Pain Management Routine Consulting Provider: Wendy Calle Reason for Consult: Lumbar pain nonradicular EMERGENT Consult: No Notified: Yes Date Notified: 08/27/24 Time Notified: 14:39 Method of Notification: Verbal Reason For Visit: INTRACTABLE BACK PAIN W/INABILITY TO Diagnosis Discharge Diagnosis (1) Spondylolisthesis, lumbar region: Status: Acute Code(s): M43.16 - Spondylolisthesis, lumbar region (2) Acute on chronic low back pain: Status: Chronic Code(s): M54.50 - Low back pain, unspecified; G89.29 - Other chronic pain (3) Fusion of lumbar spine: Status: Acute Code(s): M43.26 - Fusion of spine, lumbar region (4) Unable to ambulate: Status: Acute Code(s): R26.2 - Difficulty in walking, not elsewhere classified (5) Acute urinary retention: Status: Acute Code(s): R33.8 - Other retention of urine Plan Acute on chronic back pain -History of spondylolisthesis and fusion of lumbar spine -MRI done this admission which shows no acute processes but does showed severe degeneration at L3 and L4 along with facet arthrosis -Plan is for epidural injections today -Will need therapy to evaluate prior to discharge to make sure she is mobile enough to go home -Hopeful for discharge tomorrow Urinary retention -Discontinue Pritchett and monitor for further retention Hypothyroidism -Continue home levothyroxine -Continue home Liothyronine Essential hypertension -Continue home amlodipine -Continue home lisinopril Metastatic breast cancer -Continue letrozole -Follows with Dr. Dhaliwal -Findings on MRI were discussed with him and all findings were chronic History of Nguyen's esophagus -Continue on PPI History of TIA -Continue Plavix Vitamin D deficiency -Continue vitamin D supplementation Depression/insomnia -Continue home zolpidem -Continue fluoxetine DVT prophylaxis -Start enoxaparin CODE STATUS -Full code as verified Medications at Discharge Home Medications fluoxetine 40 mg capsule 40 mg PO DAILY 06/16/17 lisinopril 20 mg tablet 20 mg PO DAILY 09/25/20 levothyroxine 125 mcg tablet 112 mcg PO DAILY 30 days #27 tabs 06/11/21 hydrocodone-acetaminophen 5-325mg 5mg-325mg 1 tab PO Q6H PRN pain 07/16/22 alprazolam 0.5 mg tablet 0.5 mg PO DAILY PRN anxiety 07/21/22 letrozole 2.5 mg tablet 2.5 mg PO DAILY 02/16/24 amlodipine 5 mg tablet 5 mg PO QHS 04/30/24 clopidogrel 75 mg tablet 75 mg PO DAILY 04/30/24 esomeprazole magnesium 20 mg capsule,delayed release (Nexium) 20 mg PO DAILY 04/30/24 liothyronine 5 mcg tablet 5 mcg PO DAILY 05/21/24 zolpidem 10 mg tablet 10 mg PO QHS 05/21/24 acetaminophen 650 mg tablet,extended release 650 mg PO PRN ARTHRITIS 08/25/24 cholecalciferol (vitamin D3) 50 mcg (2,000 unit) capsule 50 mcg PO DAILY 08/25/24 ferrous sulfate 325 mg (65 mg iron) tablet (Feosol) 325 mg PO DAILY 08/25/24 multivitamin (Daily Multi-Vitamin tablet) 1 tab PO DAILY 08/25/24 psyllium husk 3.4 gram/5.4 gram oral powder (Metamucil) 1 tsp PO DAILY 08/25/24 acetaminophen 500 mg tablet 1,000 mg (2 x 500 mg) PO Q8 #0 tabs 08/29/24 lidocaine 5 % topical patch 1 patch topical DAILY #30 ea 08/29/24 oxycodone 5 mg tablet 5 mg PO Q4H PRN PRN Pain Score 4-10 5 days #30 tabs 08/29/24 sennosides 8.6 mg tablet (senna) 8.6 mg PO BID #14 tabs 03/26/25 Hospital Course Operations - (Epidural injection) Procedures - (CT lumbar spine/MRI lumbar spine/lumbar x-ray postprocedure) Summary of Care Provided Minutes Spent on Discharge: 30 Hospital Course: Mrs. Dang is a 79-year-old white female who presented to emergency department [facility] on 08/25/2024 with a chief complaint of acute on chronic back pain with spasms and the inability to ambulate. She has a history of chronic low back pain with previous L4-L5 lumbar fusion that was done at the [facility] in 2018. She then had a discectomy done there in 2020. She also has a history of metastatic breast cancer and follows with Dr. Dhaliwal. She has been stable on trastuzumab and letrozole recently. Patient reported about midmorning on the day of presentation she developed significant bilateral low back muscle spasms which were new for her. She indicated she has chronic pain but never as bad lately. Spasms made it difficult for her to ambulate to the point where she was unable to move. Vital signs on presentation showed temperature 98.9, heart rate 4, respiratory 16, blood pressure was 148/129 with a repeat of 164/86 and pulse ox 100% on room air. CBC showed a mild leukocytosis with 13.2 and a chronic stable anemia with a hemoglobin 11.9 otherwise unremarkable. Chemistry panel was overtly unremarkable. CT of the lumbar spine showed no acute lumbar fracture with previous noted multilevel degenerative central and neural foraminal stenosis. Given her inability to ambulate she was admitted to the hospital as observation and was started on muscle relaxants, scheduled Tylenol, lidocaine patch, p.o. oxycodone, IV Dilaudid, and was given Decadron. A lumbar MRI was pursued and showed previous spinal fusion at L4-L5, multilevel degenerative changes, mild spondylolisthesis and a T2 weighted hypointense lesion at T6 vertebral body lesion which had previously been noted and followed by Dr. Dhaliwal. 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 Given findings on MRI a consultation to orthopedic surgery was placed and no further surgical intervention was recommended however it was recommended she have a back injection with pain management. This was performed on 08/28/2024. Following injection she was doing quite well. And was able to move around independently with a walker. It is felt that she is appropriate for outpatient physical therapy at the time of discharge. Patient did have some urinary retention at the time of admission and was getting Pritchett catheter. This was able to be removed and patient was able to void without difficulty prior to discharge. Patient is follow-up with pain management as indicated on her discharge paperwork. Her primary care physician within next 1 to 2 weeks and continue to follow-up with oncology as previously recommended. Patient was able to discharge, stable condition on 08/29/2024. Prescriptions for pain medication and lidocaine patches were written for the time of discharge. Discharge diagnoses: Acute on chronic back pain Urinary retention-resolved Hypothyroidism Essential hypertension Metastatic breast cancer Chronic anemia History of Nguyen's esophagus History of TIA Vitamin D deficiency Depression Insomnia Physical Exam Narrative Patient states she is feeling overall better since her injection. Much better since admission. Still having some pain. Plan is for outpatient therapy. Anxious to go home. Const alert, oriented x3, no apparent distress, average body habitus, no limitations and well nourished Constitutional Narrative: Elderly, white female, sitting up in chair at the bedside, appears comfortable, nontoxic, at the bedside General Appearance: cooperative, comfortable, well kempt and well developed Exam Limitations: no limitations Nutritional Appearance: overweight HEENT normocephalic and head/scalp atraumatic HEENT Narrative: Mallampati 2, no thrush Resp normal respiratory effort, normal air movement, no retractions, no use of accessory muscles and clear to auscultation bilaterally Auscultation: Negative for rales, rhonchi or wheezes Cardio regular rate, regular rhythm, S1 normal heart sound, S2 normal heart sound, no murmurs, no rub, no gallops and no clicks GI normal to inspection, nondistended, normoactive bowel sounds, soft to palpation and non-tender Back/Spine 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 Please refer to the operative note for further details. Reading Location: [facility] D/C Instructions Discharge Diet: Low fat / Low cholesterol Discharge Activity: Return to Normal Activity and Use Walker DC O2, CPAP, BIPAP Needs Home O2 Discharge instructions: No Meaningful Use Info Meaningful Use Meaningful Use Diagnoses (Choose all that apply): None applicable Ischemic Stroke Statin Dosing Therapy Reference: STATIN DOSE THERAPY REFERENCE: * Patients > 75 years receive moderate or high dose statin therapy. * Patients 75 years or YOUNGER should receive HIGH intensity statin dose unless contraindicated. You will be required to document reason for non-treatment if statin daily dose does not meet guidelines. HIGH DOSE STATIN THERAPY DAILY Atorvastatin > than or = to 40 mg Rosuvastatin > than or = to 20 mg Amlodipine + Atorvastatin > than or = to 2.5/40 mg Ezetimibe + Simvastatin 10/80 mg Simvastatin 80mg Discharge Plan Admission Admit Date/Time: 08/25/24 16:23 Primary Reason for Your Visit: Intractable back pain Attending Provider: Carolyn Hatch Primary Care Provider: Tami Chang Consulting Providers: Buzz Alford; Wendy Calle; Jin Rosales; Nadir Carlos Discharge Orders/Prescriptions Prescriptions: New acetaminophen 500 mg Tablet 1,000 mg PO Q8 Qty: 0 0RF lidocaine 5 % Adhesive Patch,Medicated 1 patch topical DAILY Qty: 30 1RF Protocol: *Topical Application Instructions APPLICATION INSTRUCTIONS: low back oxycodone 5 mg Tablet 5 mg PO Q4H PRN PRN (Reason: Pain Score 4-10) 5 Days Qty: 30 0RF sennosides [senna] 8.6 mg Tablet 8.6 mg PO BID Qty: 14 0RF Continued fluoxetine 40 mg capsule 40 mg PO DAILY levothyroxine 125 mcg tablet 112 mcg PO DAILY 30 Days Qty: 27 Patient Comments: PT CANNOT TAKE GENERIC, CAN ONLY BRING BRAND, FAMILY CAN BRING FROM HOME. clopidogrel 75 mg tablet 75 mg PO DAILY hydrocodone-acetaminophen 5-325 mg tablet 1 tab PO Q6H PRN (Reason: pain) alprazolam 0.5 mg tablet 0.5 mg PO DAILY PRN (Reason: anxiety) letrozole 2.5 mg tablet 2.5 mg PO DAILY amlodipine 5 mg tablet 5 mg PO QHS esomeprazole magnesium [Nexium] 20 mg capsule,delayed release(DR/EC) 20 mg PO DAILY lisinopril 20 MG tablet 20 mg PO DAILY liothyronine 5 mcg tablet 5 mcg PO DAILY zolpidem 10 mg tablet 10 mg PO QHS Metamucil 3.4 gram/5.4 gram powder 1 tsp PO DAILY Rx Instructions: mix into at least 4 oz water or juice before administering cholecalciferol (vitamin D3) 50 mcg (2,000 unit) capsule 50 mcg PO DAILY multivitamin [Daily Multi-Vitamin] Tablet 1 tab PO DAILY ferrous sulfate [Feosol] 325 mg (65 mg iron) tablet 325 mg PO DAILY acetaminophen 650 mg tablet extended release 650 mg PO PRN Referrals / Follow Up: Wendy Calle MD [Med Staff - Active Staff] - 09/26/24 1:45 pm Tami Chang MD [Primary Care Provider] - In 1 Week Jerod Dhaliwal DO [Med Staff - Active Staff] - 09/12/24 10:00 am (09/11/2024 Patient Labs Scheduled ) Disposition Disposition (needs filled in before D/C Order can be placed): Home, Self Care Charges/Coding Visit Charges Inpatient E&M: 57360 Disch Hosp
[2024-08-29] MEDS: oxyCODONE 5 MG Tablet PO (13:54)
[2024-08-29 14:05] VITALS: BP 114/55; PULSE 74; RESP 18; TEMP 36.8; O2SAT 96
--- NOTE | 2024-08-29 15:35 | PHA.DC.MR.R ---
Pharmacy [place] Med Reconciliation Pharmacy Service has performed discharge medication reconciliation for this patient. Medication education papers prepared, patient discharged when counseling was attemped. Medications reviewed. The patient's discharge medication list was reviewed for discrepancies and discrepancies were resolved. Medications at Discharge Home Medications fluoxetine 40 mg capsule 40 mg PO DAILY 06/16/17 lisinopril 20 mg tablet 20 mg PO DAILY 09/25/20 levothyroxine 125 mcg tablet 112 mcg PO DAILY 30 days #27 tabs 06/11/21 hydrocodone-acetaminophen 5-325mg 5mg-325mg 1 tab PO Q6H PRN pain 07/16/22 alprazolam 0.5 mg tablet 0.5 mg PO DAILY PRN anxiety 07/21/22 letrozole 2.5 mg tablet 2.5 mg PO DAILY 02/16/24 amlodipine 5 mg tablet 5 mg PO QHS 04/30/24 clopidogrel 75 mg tablet 75 mg PO DAILY 04/30/24 esomeprazole magnesium 20 mg capsule,delayed release (Nexium) 20 mg PO DAILY 04/30/24 liothyronine 5 mcg tablet 5 mcg PO DAILY 05/21/24 zolpidem 10 mg tablet 10 mg PO QHS 05/21/24 acetaminophen 650 mg tablet,extended release 650 mg PO PRN ARTHRITIS 08/25/24 cholecalciferol (vitamin D3) 50 mcg (2,000 unit) capsule 50 mcg PO DAILY 08/25/24 ferrous sulfate 325 mg (65 mg iron) tablet (Feosol) 325 mg PO DAILY 08/25/24 multivitamin (Daily Multi-Vitamin tablet) 1 tab PO DAILY 08/25/24 psyllium husk 3.4 gram/5.4 gram oral powder (Metamucil) 1 tsp PO DAILY 08/25/24 acetaminophen 500 mg tablet 1,000 mg (2 x 500 mg) PO Q8 #0 tabs 08/29/24 lidocaine 5 % topical patch 1 patch topical DAILY #30 ea 08/29/24 oxycodone 5 mg tablet 5 mg PO Q4H PRN PRN Pain Score 4-10 5 days #30 tabs 08/29/24 sennosides 8.6 mg tablet (senna) 8.6 mg PO BID #14 tabs 08/29/24
--- NOTE | 2024-08-29 16:35 | NURSING ---
All documentation by nursing information systems coordinator Zeus Waldron reviewed by occupational health nursing director Kelly CHRISTINEN, RN.
== END 2024-08-29 14:32 | disposition home or self-care (01) ==
LOC: ED 16:35 → MS3 16:47
PROVIDERS: Anesthesiology Pain Medicine; Physician Assistant; Admitting Provider Hospitalist; Emergency Provider Emergency Medicine; PCP Family Medicine; Visit Provider Internal Medicine
PROC: 3E0T3BZ Introduction of Anesthetic Agent into Peripheral Nerves and Plexi, Percutaneous Approach (ICD-10-PCS; CPT 64493; principal; 2024-08-28 14:25)
DX: G89.29 Other chronic pain (principal); C78.7 Secondary malignant neoplasm of liver and intrahepatic bile duct; C50.919 Malignant neoplasm of unspecified site of unspecified female breast; M43.16 Spondylolisthesis, lumbar region; M47.816 Spondylosis without myelopathy or radiculopathy, lumbar region; M96.1 Postlaminectomy syndrome, not elsewhere classified; M47.817 Spondylosis without myelopathy or radiculopathy, lumbosacral region; M51.360 Other intervertebral disc degeneration, lumbar region with discogenic back pain only; F41.9 Anxiety disorder, unspecified; F32.A Depression, unspecified; M79.604 Pain in right leg; M48.061 Spinal stenosis, lumbar region without neurogenic claudication; Z98.1 Arthrodesis status; R33.9 Retention of urine, unspecified; M62.830 Muscle spasm of back; G47.00 Insomnia, unspecified; E03.9 Hypothyroidism, unspecified; R26.2 Difficulty in walking, not elsewhere classified; D64.9 Anemia, unspecified; I10 Essential (primary) hypertension; E55.9 Vitamin D deficiency, unspecified; Z79.02 Long term (current) use of antithrombotics/antiplatelets; Z79.811 Long term (current) use of aromatase inhibitors; Z79.899 Other long term (current) drug therapy; Z87.891 Personal history of nicotine dependence; Z86.73 Personal history of transient ischemic attack (TIA), and cerebral infarction without residual deficits
CPT/HCPCS: 64493; 64494; 36415; 36591; 64483; 72100; 72131; 72158; 80048; 81001; 84443; 85025; 85027; 93005; 94668; 96372; 96374; 96375; 96376; 97116; 97162; 97166; 97530; 99221; 99285; A9575; A4216; G0378; J2405

== ENCOUNTER → 2024-09-24 | Outpatient (CLI) | payer MEDICARE, SELFPAY ==
[2024-09-24 11:43] LABS: Protein, Urine (Random) 20.1 mg/dL (0.0-12.0); Protein:Creat Ratio 170 mg/g CRE (0-200)
[2024-09-24 11:45] LABS: Cholesterol 183 mg/dL (<=200); High Density Lipoprotein 69 mg/dL; Low Density Lipoprotein Calc. 94 mg/dL; Thyroid Stim Hormone (TSH) 0.476 uIU/mL (0.300-4.200); Triglycerides 102 mg/dL; Very Low Density Lipoprotein 20 mg/dL (5-40); cholesterol:hdl ratio screen 2.65
[2024-09-24 11:57] LABS: AST(SGOT) 19 U/L (<=31); Alanine Aminotransfer ALT/SGPT < 5 U/L (<=34)
== END | disposition home or self-care (01) ==
LOC: MFPLAB 08:29
PROVIDERS: PCP Family Medicine; Referring Provider Family Medicine; Visit Provider Family Medicine
DX: E03.9 Hypothyroidism, unspecified (principal); E78.5 Hyperlipidemia, unspecified; I10 Essential (primary) hypertension
CPT/HCPCS: 36415; 80061; 82570; 84156; 84443; 84450; 84460

== ENCOUNTER → 2024-10-02 | Outpatient (CLI) | payer MEDICARE, SELFPAY ==
--- NOTE | 2024-10-02 06:39 | MRI_ITS ---
PROCEDURE: SPINE LUMBAR W/WO CONTRAST 10/02/2024 REASON FOR EXAM: LUMBAR SPINE PAIN TECHNIQUE: Multiplanar and multisequence images were obtained without and with intravenous gadolinium-based contrast administration. CONTRAST: Clariscan, dose = not reported. COMPARISON: 09/23/2024 FINDINGS: The stonemason view shows a 1.5 cm low T1 signal lesion in the T6 vertebral body. There is a 1.5 cm hemangioma with high T1, high T2 signal at T11. There is fusion hardware at L4-5 on the left with disc hardware. There is a 25% anterior compression deformity at T12. There is low T1, high T2, postcontrast enhancement in the mid and lower T12 vertebral body and in the mid and upper L1 vertebral body including the disc space. There is a 1.0 cm circumscribed high T2, low T1, high postcontrast T1 signal enhancing lesion in the left superior L1 vertebral body, sagittal image 5/15. There is grade 1 retrolisthesis at T12-L1, 0.3 cm. There is grade 1 retrolisthesis at L1-2, 0.3 cm. There is grade 1 retrolisthesis at L3- 4, 0.3 cm. There is grade 1 spondylolisthesis at L5-S1, 0.6 cm. Intervertebral disc signal shows desiccation. The facets are aligned. The T12-L1 level: There is mild central, moderate right and mild left paracentral disc and osteophyte protrusion. There is mild right lateral recess effacement. There is moderate right foraminal narrowing secondary to disc and osteophyte protrusion. There is no central canal stenosis. The L1-L2 level: There is disc extrusion which extends beyond the L2 endplate, attached at the margin, measuring 0.5 x 0.8 by 1.4 cm. There is moderate bilateral lateral recess stenosis. There is moderate bilateral foraminal narrowing secondary to disc protrusion and facet hypertrophy. There is no central canal stenosis. The L2-L3 level: There is central disc extrusion which extends beyond the L3 endplate, attached at the margin, measuring 0.4 by 0.9 by 0.7 cm. There is mild bilateral lateral recess effacement. There is moderate right and mild left foraminal narrowing secondary to disc protrusion and facet hypertrophy. There is mild central canal stenosis. The L3-L4 level: There is disc extrusion which extends beyond the L4 endplate and into the right neural foramen, attached at the margin, measuring 0.4 by 0.5 by 1.3 cm.. There is moderate bilateral lateral recess stenosis. There is moderate bilateral foraminal narrowing secondary to disc and osteophyte protrusion. There is no central canal stenosis.. The L4-L5 level: There is no significant disk protrusion. There is no lateral recess stenosis or foraminal stenosis. There is no critical central canal stenosis. The L5-S1 level: There is mild central and right and left paracentral disc protrusion. There is mild bilateral lateral recess stenosis. There is mild bilateral foraminal narrowing secondary to disc protrusion, facet hypertrophy, and spondylolisthesis. There is mild central canal stenosis.. The visualized conus shows normal signal characteristics. Adjacent soft tissues are unremarkable. MRI/Spine Lumbar W/WO Contrast IMPRESSION: The stonemason view shows a 1.5 cm low T1 signal lesion in the T6 vertebral body. F urther evaluation is indicated which could include MRI with and without contrast. There is a 25% anterior compression deformity at T12, similar to the prior. There is low T1, high T2, postcontrast enhancement in the mid and lower T12 laura tebral body and in the mid and upper L1 vertebral body including the disc space. This has the appearance of discitis and is new compared to the prior. There is a 1.0 cm circumscribed high T2, low T1, high postcontrast T1 signal en hancing lesion in the left superior L1 vertebral body, sagittal image 5/15, with suspicious features. Follow-up is recommended. Consider whole-body bone scan. There is grade 1 retrolisthesis at T12-L1, 0.3 cm. There is grade 1 retrolisth esis at L1-2, 0.3 cm. There is grade 1 retrolisthesis at L3-4, 0.3 cm. There is grade 1 spondylolisthesis at L5-S1, 0 .6 cm. There is disc extrusion at L1-2, L2-3, and L3-4. There is mild central canal stenosis at L2-3, and L5-S1, with lateral recess an d foraminal narrowing, similar to the prior. Critical results system was activated. Reading Location: [facility]
== END | disposition home or self-care (01) ==
PROVIDERS: PCP Family Medicine; Referring Provider Orthopaedic Surgery Orthopaedic Surgery of the Spine; Visit Provider Orthopaedic Surgery Orthopaedic Surgery of the Spine
DX: M43.26 Fusion of spine, lumbar region (principal); M43.16 Spondylolisthesis, lumbar region; R68.89 Other general symptoms and signs
CPT/HCPCS: 72158; A9575; A4216

== ENCOUNTER 2024-10-19 08:54 | Outpatient (CLI) | payer MEDICARE, SELFPAY ==
[2024-10-19 09:11] VITALS: BP 128/55; PULSE 98; RESP 16; TEMP 36.1; O2SAT 98; BMI 27.3
[2024-10-19 09:49] LABS: Hematocrit 34.2 % (37-47); Hemoglobin 11.4 g/dL (12.0-15.0); Mean Corp Hgb Conc 33.3 g/dL (32-36); Mean Corpuscular Hgb 29.7 pg (27.0-32.0); Mean Corpuscular Volume 89.1 fL (81-99); Mean Platelet Vol. 9.3 fl (6.2-12.0); Platelet Count 389 K/mm3 (150-450); RBC Distribution Width CV 15.9 % (11.6-14.6); Red Blood Count 3.84 M/mm3 (4.2-5.4)
[2024-10-19] MEDS: DEXTROSE 5% IV (10:04)
[2024-10-19] MEDS: WATER IV (10:04)
[2024-10-19] MEDS: DALBAVANCIN IV (10:04)
[2024-10-19 10:34] LABS: ALB/GLOB Ratio 1.4 RATIO (0.9-2.4); AST(SGOT) 19 U/L (<=31); Alanine Aminotransfer ALT/SGPT 14 U/L (<=34); Alkaline Phosphatase 83 U/L (35-104); Anion Gap 13 (5-15); BUN 20 mg/dL (4-19); Carbon Dioxide 20.1 mmol/L (21.0-32.0); Chloride 97 mmol/L (98-108); Creatinine, Serum 0.84 mg/dL (0.70-1.20); EST Glomerular Filtration Rate 70 (>60); Estimated Creatinine Clearance 47.14 ml/min (50-250); Globulin 2.8 g/dL (2.2-4.2); Glucose 108 mg/dL (70-99); Potassium 3.9 mmol/L (3.3-5.1); Protein, Total 6.7 g/dL (5.9-8.4); Sodium Level 131 mmol/L (133-145); Total Bilirubin 0.35 mg/dL (0.00-1.30)
[2024-10-19 10:38] LABS: CRP < 3.00 mg/L (0.0-3.0)
[2024-10-19 10:44] VITALS: BP 139/63; PULSE 71; RESP 16; TEMP 36.3
== END 2024-10-19 23:59 | disposition home or self-care (01) ==
LOC: MEDOUTP 08:55
PROVIDERS: PCP Family Medicine; Referring Provider Internal Medicine; Visit Provider Internal Medicine
DX: M86.9 Osteomyelitis, unspecified (principal)
CPT/HCPCS: 96365; 80053; 85027; 86140; A4216; J0875

== ENCOUNTER 2024-10-26 08:49 | Outpatient (CLI) | payer MEDICARE, SELFPAY ==
[2024-10-26 09:16] VITALS: BP 136/59; PULSE 89; RESP 16; TEMP 36; O2SAT 97; BMI 27.0
[2024-10-26] MEDS: WATER IV (09:34)
[2024-10-26] MEDS: DEXTROSE 5% IV (09:34)
[2024-10-26] MEDS: DALBAVANCIN IV (09:34)
== END 2024-10-26 23:59 | disposition home or self-care (01) ==
LOC: MEDOUTP 08:50
PROVIDERS: PCP Family Medicine; Referring Provider Internal Medicine; Visit Provider Internal Medicine
DX: M86.9 Osteomyelitis, unspecified (principal)
CPT/HCPCS: 96365; A4216; J0875

== ENCOUNTER 2024-11-20 09:03 | Outpatient (CLI) | payer MEDICARE, SELFPAY ==
[2024-11-20 09:13] VITALS: BP 138/63; PULSE 74; RESP 16; TEMP 35.7; O2SAT 96
[2024-11-20] MEDS: DALBAVANCIN IV (09:42)
[2024-11-20] MEDS: WATER IV (09:42)
[2024-11-20] MEDS: DEXTROSE 5% IV (09:42)
[2024-11-20 10:23] VITALS: BP 144/72; PULSE 68; RESP 16; TEMP 36
== END 2024-11-20 23:59 | disposition home or self-care (01) ==
LOC: MEDOUTP 09:03
PROVIDERS: PCP Family Medicine; Referring Provider Internal Medicine; Visit Provider Internal Medicine
DX: M86.9 Osteomyelitis, unspecified (principal)
CPT/HCPCS: 96365; A4216; J0875

== ENCOUNTER → 2024-11-28 | Outpatient (CLI) | payer MEDICARE, SELFPAY ==
--- NOTE | 2024-11-28 13:48 | BD_ITS ---
PROCEDURE: DEXA BONE DENSITY STUDY 11/28/2024 REASON FOR EXAM: F, age 79 y/o . Postmenopausal. TECHNIQUE: DEXA BONE DENSITY STUDY COMPARISON: Prior study dated October 08, 2021. FINDINGS: BMD and T-SCORES Lumbar spine: 0.975 g/cm2, T-score 0.0 Levels: L1 through L4 Change from prior: Loss of 10.9%. Left femoral neck: 0.569 g/cm2, T-score -2.5 Femoral neck comparison data not recommended for monitoring change. Left total hip: 0.747 g/cm2, T-score -1.6 Change from prior: Loss of 8.8%. Right femoral neck: 0.552 g/cm2, T-score -2.6 Femoral neck comparison data not recommended for monitoring change. Right total hip: 0.745 g/cm2, T-score -1.6 Change from prior: Loss of 6.2%. The World Health Organization has defined the following categories based on bone density: Normal bone density: T-score equal to or greater than -1.0 Osteopenia: T-score between -1.0 and -2.5 Osteoporosis: T-score equal to or less than -2.5 The patient does meet the pharmacological treatment recommendations for prevention of osteoporosis. BD/Dexa Bone Density Study IMPRESSION: OSTEOPOROSIS. Recommend follow-up as clinically warranted. Reading Location: [id number]
== END | disposition home or self-care (01) ==
LOC: OPBD 13:39
PROVIDERS: PCP Family Medicine; Referring Provider Family Medicine; Visit Provider Family Medicine
DX: M81.0 Age-related osteoporosis without current pathological fracture (principal)
CPT/HCPCS: 77080

== ENCOUNTER → 2024-12-03 | Outpatient (CLI) | payer MEDICARE, SELFPAY | END | disposition home or self-care (01) | LOC: LABSPEC 08:21 | PROVIDERS: PCP Family Medicine; Visit Provider Orthopaedic Surgery Orthopaedic Surgery of the Spine | DX: R82.90 Unspecified abnormal findings in urine (principal); M46.40 Discitis, unspecified, site unspecified | CPT/HCPCS: 87086; 87088 ==

== ENCOUNTER → 2025-01-11 | Outpatient (CLI) | payer MEDICARE, SELFPAY ==
--- NOTE | 2025-01-11 12:35 | US_ITS ---
EXAM: US Pelvis Transabdominal, Complete CLINICAL INDICATION: LLQ PAIN TECHNIQUE: Real-time complete transabdominal pelvic ultrasound with image documentation. COMPARISON: No relevant prior studies available. FINDINGS: UTERUS/CERVIX: Endometrium not visualized secondary to patient body habitus. The uterus measures 6.0 x 2.8 x 1.7 cm. RIGHT OVARY: Right ovary not visualized secondary to bowel gas. LEFT OVARY: Left ovary not visualized secondary to bowel gas. FREE FLUID: No free fluid. BLADDER: Unremarkable as visualized. Wall is normal thickness for degree of distention. US/Pelvic (Non ) IMPRESSION: No acute findings in the pelvis. Reading Location: [facility]
== END | disposition home or self-care (01) ==
LOC: US 12:33
PROVIDERS: PCP Family Medicine; Referring Provider Family Medicine; Visit Provider Family Medicine
DX: R10.2 Pelvic and perineal pain (principal)
CPT/HCPCS: 76856

== ENCOUNTER → 2025-02-28 | Outpatient (CLI) | payer MEDICARE, SELFPAY ==
--- NOTE | 2025-02-28 07:47 | US_ITS ---
PROCEDURE: ABDOMEN COMPLETE 02/28/2025 REASON FOR EXAM: L/R UPPER QUAD PAIN TECHNIQUE: Procedure Code: USABDC Modality: US Procedure: ABDOMEN COMPLETE COMPARISON: 07/08/2020 FINDINGS: Liver: Grossly normal size and echotexture.. The liver measures 12.7 cm in vertical dimension in the midclavicular line. There is normal hepatopetal flow in the portal venous system. Gallbladder: No stones, sludge, wall thickening or tenderness. Common bile duct: 3 mm Pancreas: Visualized portions are sonographically unremarkable. Kidneys: The right kidney measures 10.0 x 4.4 x 4.3 cm. The left kidney measures 10.0 x 4.9 x 4.7 cm. Renal parenchymal thicknesses and echotextures are preserved. No hydronephrosis. Spleen: The spleen is not visualized. Aorta: Visualized abdominal aorta is of normal size. IVC: Visualized inferior vena cava is unremarkable. Peritoneal Findings: No ascites identified. US/Abdomen Complete IMPRESSION: The spleen is not visualized. Otherwise unremarkable. Reading Location: [id number]
== END | disposition home or self-care (01) ==
LOC: US 07:46
PROVIDERS: PCP Family Medicine; Referring Provider Nurse Practitioner Family; Visit Provider Nurse Practitioner Family
DX: R10.12 Left upper quadrant pain (principal); R10.11 Right upper quadrant pain
CPT/HCPCS: 76700

== ENCOUNTER 2025-04-05 06:54 | Day surgery (SDC) | payer MEDICARE, SELFPAY ==
--- NOTE | 2025-04-03 14:13 | PAT.ANESEVAL ---
Pre-Assessment Diagnosis/Proposed Procedure Planned Operative Procedure(s): EGD Anesthesia History Anesthesia History - personal shopper: Anesthesia History - personal shopper Hx Hospitalization Yes: BACK PAIN 04/03/25 10:50 Any Problems With Anesthesia No 04/03/25 10:50 Cholinesterase deficiency No 04/03/25 10:50 You/Your Family Experience No 04/03/25 10:50 fever (hyperthermia) with Relationship Recent Exposure to Contagious No 05/23/24 12:40 Disease Does patient have nerve No 04/03/25 10:50 stimulator Patient instructed to have device shut off --Does patient have Pacemaker or ICD? When Was Last Pacemaker Check QUESTION #4 FULL TEXT: You/Your Family Experience fever (hyperthermia) with Anesthesia Last Oral Intake Last Oral intake: Last Oral Intake NPO since Meds taken in AM with sips of water? 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 - personal shopper: PONV - personal shopper Female Yes 04/03/25 10:50 HX of Motion Sickness No 04/03/25 10:50 HX of N/V After Surgery No 04/03/25 10:50 Non-Smoker Yes 04/03/25 10:50 Duration of Surgery greater No 04/03/25 10:50 than 60 minutes Number of Risk Factors 2 04/03/25 10:50 PONV Score Moderate Risk 04/03/25 10:50 Height & Weight Height & Weight: Anesthesia: Height & Weight Height 5 ft 1 in 11/20/24 09:13 Respiratory Assessment Respiratory Assessment - personal shopper: Respiratory Tract Infection Hx - personal shopper Hx Respiratory Tract Infection No 04/03/25 10:50 STOP Sleep Apnea STOP Sleep Apnea - personal shopper: STOP Sleep Apnea - personal shopper Hx Hypertension Yes 04/03/25 10:50 Hx Sleep Apnea No 04/03/25 10:50 CPAP No 08/25/24 18:42 BIPAP No 08/25/24 18:42 Do you snore loudly (louder No 04/03/25 10:50 than talking or can be heard Do you often feel tired/ No 04/03/25 10:50 fatigued/ sleepy during daytime? Has anyone observed you stop No 04/03/25 10:50 breathing during sleep? STOP Results Negative 04/03/25 10:50 QUESTION #5 FULL TEXT : Do you snore loudly (louder than talking or can be heard through closed doors)? 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 Specify any problems Hx of Preganancy in last 3 No 04/03/25 10:50 Months Nurse Filling Out Transfusion [facility] 04/03/25 10:50 & Questions: Date: 04/03/25 04/03/25 10:50 Time: 10:55 04/03/25 10:50 Patient unable to answer at this time (ie. confused, unrespo /Reproduction History /Reproductive History - personal shopper: /Reproductive Hx- personal shopper Hx Now No 04/03/25 10:50 Gestational Age (in weeks): EDC: Hx Hx Para Hx Section SAB No 04/03/25 10:50 PFSH Medical History Chronic back pain Breast cancer Liver cancer Wears glasses Post-menopausal Cancer Depression Anxiety Alcohol use Thyroid disease Anemia Easy bruising Excessive bleeding Back pain TIA (transient ischemic attack) History of hiatal hernia History of ulceration History of IBS Gastric reflux Former smoker Shortness of breath on exertion History of echocardiogram Hypertension History of irregular heartbeat History of rheumatic fever LUQ pain 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 Epigastric abdominal pain Liver metastasis 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 Wears dentures Sleep apnea History of TIA (transient ischemic attack) History of thyroid disease Back pain Neck pain Severe headache Stomach ulcer History of cancer Arthritis History of hypertension Home Medications Medication Instructions Recorded Last Taken Type fluoxetine 40 mg capsule 40 mg PO DAILY 06/16/17 08/25/24 History lisinopril 20 mg tablet 20 mg PO DAILY 09/25/20 08/25/24 History levothyroxine 125 mcg tablet 112 mcg PO DAILY 30 days #27 tabs 06/11/21 08/28/24 History hydrocodone-acetaminophen 5-325mg 1 tab PO Q6H PRN pain 07/16/22 08/25/24 History 5mg-325mg letrozole 2.5 mg tablet 2.5 mg PO DAILY 02/16/24 08/25/24 History amlodipine 5 mg tablet 5 mg PO QHS 04/30/24 08/24/24 History clopidogrel 75 mg tablet 75 mg PO DAILY 04/30/24 03/29/25 History esomeprazole magnesium 20 mg 20 mg PO DAILY 04/30/24 08/25/24 History capsule,delayed release (Nexium) liothyronine 5 mcg tablet 5 mcg PO DAILY 05/21/24 08/25/24 History zolpidem 10 mg tablet 10 mg PO QHS 05/21/24 08/24/24 History multivitamin (Daily Multi-Vitamin 1 tab PO DAILY 08/25/24 08/24/24 History tablet) baclofen 5 mg tablet 5 mg PO TID PRN pain 09/11/24 Unknown History famotidine 40 mg tablet 40 mg PO QDAY #30 tabs 03/19/25 Unknown Rx calcium 600 mg (as 2 cap PO DAILY 04/03/25 Unknown History carbonate)-vitamin D3 5 mcg (200 unit) capsule (Calcium 600 + D(3)) trastuzumab 150 mg intravenous 150 mg IV .Q3W 04/03/25 Unknown History solution (Herceptin) Allergy/AdvReac Type Severity Reaction Status Date / Time shellfish derived Allergy Severe throat Verified 04/03/25 10:45 swelling adhesive tape AdvReac Rash Verified 04/03/25 10:45 Family History Mother Colon cancer passed from recurrence Thyroid disorder Father Hypertension CVA (cerebral vascular accident) Sister Breast cancer, Onset Age: 87 Aunt Colon cancer paternal Surgical History (Updated 04/03/25 @ 11:01 by Delfina Baxter) History of left mastectomy History of lumpectomy History of back surgery History of thyroid surgery Social History (Reviewed 03/19/25 @ 08:30 by Fernanda Zheng household members: spouse Smoking Status: Former smoker how long ago did patient quit smoking: >50 years ago; off and on for 2 years, socially only alcohol intake: current alcohol intake frequency: 0-2 drinks per day Alcohol type: wine details: socially substance use type: does not use additional social history: denies vaping, denies marijuana, denies edibles, denies aspirin and ibuprofen use Audit: Pertinent Findings Pertinent Findings EKG Perinent findings: 08/27/2024. Normal sinus rhythm 63 bpm. Normal EKG. Echo (EF%) pertinent findings: 07/11/2017. Normal size function 65% EF. Recommendation Anesthesia Recommendation Anesthesia recommendation: OPTIMIZED for anesthesia
--- NOTE | 2025-04-05 07:09 | PCM.PRE.AN2 ---
ASA Classification* ASA Classification ASA Classification: 3 Assessment & Plan Anesthesia* Anesthesia Assessment Anesthesia Assessment: Discussed sedation and/or anesthesia options, risks, benefits, and alternatives with patient/parents/legal guardian/POA. Questions invited. The patient/parents/legal guardian/POA seems to understand and agrees to proceed with anesthesia plan. Reviewed the physical assessment, medical history, allergy history and patient home medications list prior to surgery/procedure/anesthetic and documented any changes. Performed airway and anesthesia risk assessments. Anesthesia Type Anesthesia Type: MAC Anesthesia Focused Assessment* Airway Assessment Mouth opens: >3 cm Mallampati Score: II Labs Anesthesia Preop lab: CBC WBC, (4.4-11.0) 7.0 K/mm3 10/19/24, 09: RBC, (4.2-5.4) 3.84 M/mm3 L 10/19/24, : Hgb, (12.0-15.0) 11.4 g/dL L 10/19/24, : Hct, (37-47) 34.2 % L 10/19/24, : Plt Count, (150-450) 389 K/mm3 10/19/24, 09:26 CHEMISTRY Potassium, (3.3-5.1) 3.9 mmol/L 10/19/24, 09: Sodium, (133-145) 131 mmol/L L 10/19/24, 09:26 Magnesium, (1.8-2.4) 2.0 mg/dL 12/21/16, 10:25 Phosphorus, (2.5-4.9) 3.7 mg/dL 11/07/19, 09:54 BUN, (4-19) 20 mg/dL H 10/19/24, 09:26 Creatinine, (0.70-1.20) 0.84 mg/dL 10/19/24, 09:26 Glucose, (70-99) 108 mg/dL H 10/19/24, 09:26 TSH, (0.300-4.200) 0.476 uIU/mL 09/24/24, 08:32 COAG PT, (11.7-14.9) 13.4 SECONDS 12/25/18, 15:07 Pre-Assessment Diagnosis/Proposed Procedure Planned Operative Procedure(s): EGD Anesthesia History 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 When Was Last Pacemaker Check QUESTION #4 FULL TEXT: You/Your Family Experience fever (hyperthermia) with Anesthesia Last Oral Intake Last Oral intake: Last Oral Intake NPO since Meds taken in AM with sips of water? 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 Female Yes 04/03/25 10:50 HX of Motion Sickness No 04/03/25 10:50 HX of N/V After Surgery No 04/03/25 10:50 Non-Smoker Yes 04/03/25 10:50 Duration of Surgery greater No 04/03/25 10:50 than 60 minutes Number of Risk Factors 2 04/03/25 10:50 PONV Score Moderate Risk 04/03/25 10:50 Height & Weight Height & Weight: Anesthesia: Height & Weight Height 5 ft 1 in 11/20/24 09:13 Respiratory Assessment Respiratory Assessment - water well driller: Respiratory Tract Infection Hx - water well driller Hx Respiratory Tract Infection No 04/03/25 10:50 STOP Sleep Apnea STOP Sleep Apnea - water well driller: STOP Sleep Apnea - water well driller Hx Hypertension Yes 04/03/25 10:50 Hx Sleep Apnea No 04/03/25 10:50 CPAP No 08/25/24 18:42 BIPAP No 08/25/24 18:42 Do you snore loudly (louder No 04/03/25 10:50 than talking or can be heard Do you often feel tired/ No 04/03/25 10:50 fatigued/ sleepy during daytime? Has anyone observed you stop No 04/03/25 10:50 breathing during sleep? STOP Results Negative 04/03/25 10:50 QUESTION #5 FULL TEXT : Do you snore loudly (louder than talking or can be heard through closed doors)? 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 Specify any problems Hx of Preganancy in last 3 No 04/03/25 10:50 Months Nurse Filling Out Transfusion [facility] 04/03/25 10:50 & Questions: Date: 04/03/25 04/03/25 10:50 Time: 10:55 04/03/25 10:50 Patient unable to answer at this time (ie. confused, unrespo /Reproduction History /Reproductive History - water well driller: /Reproductive Hx- water well driller Hx Now No 04/03/25 10:50 Gestational Age (in weeks): EDC: Hx Hx Para Hx Section SAB No 04/03/25 10:50 Active Medications Active Medications: Current Medications Generic Name Dose Route Start Last Admin Trade Name Freq PRN Reason Stop Dose Admin Lactated Ringer's 1,000 mls @ 15 mls/hr 04/05/25 07:00 IV .Q48H WILLIAM PFSH Medical History Chronic back pain Breast cancer Liver cancer Wears glasses Post-menopausal Cancer Depression Anxiety Alcohol use Thyroid disease Anemia Easy bruising Excessive bleeding Back pain TIA (transient ischemic attack) History of hiatal hernia History of ulceration History of IBS Gastric reflux Former smoker Shortness of breath on exertion History of echocardiogram Hypertension History of irregular heartbeat History of rheumatic fever LUQ pain 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 Epigastric abdominal pain Liver metastasis 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 Wears dentures Sleep apnea History of TIA (transient ischemic attack) History of thyroid disease Back pain Neck pain Severe headache Stomach ulcer History of cancer Arthritis History of hypertension Home Medications Medication Instructions Recorded Last Taken Type fluoxetine 40 mg capsule 40 mg PO DAILY 06/16/17 08/25/24 History lisinopril 20 mg tablet 20 mg PO DAILY 09/25/20 08/25/24 History levothyroxine 125 mcg tablet 112 mcg PO DAILY 30 days #27 tabs 06/11/21 08/28/24 History hydrocodone-acetaminophen 5-325mg 1 tab PO Q6H PRN pain 07/16/22 08/25/24 History 5mg-325mg letrozole 2.5 mg tablet 2.5 mg PO DAILY 02/16/24 08/25/24 History amlodipine 5 mg tablet 5 mg PO QHS 04/30/24 08/24/24 History clopidogrel 75 mg tablet 75 mg PO DAILY 04/30/24 03/29/25 History esomeprazole magnesium 20 mg 20 mg PO DAILY 04/30/24 08/25/24 History capsule,delayed release (Nexium) liothyronine 5 mcg tablet 5 mcg PO DAILY 05/21/24 08/25/24 History zolpidem 10 mg tablet 10 mg PO QHS 05/21/24 08/24/24 History multivitamin (Daily Multi-Vitamin 1 tab PO DAILY 08/25/24 08/24/24 History tablet) baclofen 5 mg tablet 5 mg PO TID PRN pain 09/11/24 Unknown History famotidine 40 mg tablet 40 mg PO QDAY #30 tabs 03/19/25 Unknown Rx calcium 600 mg (as 2 cap PO DAILY 04/03/25 Unknown History carbonate)-vitamin D3 5 mcg (200 unit) capsule (Calcium 600 + D(3)) trastuzumab 150 mg intravenous 150 mg IV .Q3W 04/03/25 Unknown History solution (Herceptin) Allergy/AdvReac Type Severity Reaction Status Date / Time shellfish derived Allergy Severe throat Verified 04/05/25 07:09 swelling adhesive tape AdvReac Rash Verified 04/05/25 07:09 Family History Mother Colon cancer passed from recurrence Thyroid disorder Father Hypertension CVA (cerebral vascular accident) Sister Breast cancer, Onset Age: 87 Aunt Colon cancer paternal Surgical History History of left mastectomy History of lumpectomy History of back surgery History of thyroid surgery Social History household members: spouse Smoking Status: Former smoker how long ago did patient quit smoking: >50 years ago; off and on for 2 years, socially only alcohol intake: current alcohol intake frequency: 0-2 drinks per day Alcohol type: wine details: socially substance use type: does not use additional social history: denies vaping, denies marijuana, denies edibles, denies aspirin and ibuprofen use Review of Systems (Anesthesia) ROS Narrative System reviewed and no additional complaints, except as documented.
--- OUTSIDE RECORDS SUMMARY | 2025-04-05 07:10 | XMS RPT_ITS | CCD ---
Author Organization [facility] Care Team Providers Care Fork Lift Technician Name Role Phone Tami Chang Primary Care Provider Miky RN, Ramila Unavailable Unavailable Ursula Garcia Unavailable Unavailable Dr. Tami Chang Primary Care Provider Dr. Tami Chang Referring Provider 1([facility])[phone] ZARINA Hammer Attending Provider 1([facility])[phone] Tami Chang Primary Care Provider 1([facility] )[phone] Miky RN, Ramila Unavailable Unavailable Henok EVANS, Ursula Unavailable Unavailable Tami Chang Primary Care Provider [phone] Tami Chang Primary Care Provider Miky RN, Ramila Unavailable Unavailable Henok EVANS, Ursula Unavailable Unavailable Dr. Tami Chang Primary Care Provider Dr. Tami Chang Referring Provider 1([facility])[phone] Roof MOTORBOAT MECHANIC INBOARD, MOTORBOAT MECHANIC INBOARD-Miguelangel Flores Attending Provider Dr. Pepper Christianson Attending Provider Tami Chang Primary Care Provider [phone] Dr. Tami Chang Primary Care Provider 1([facility])[phone] Dr. Dayanara Huitron Attending Provider Dr. Christiano Centeno Referring Provider 1([facility])[phone] Tami Chang Referring Provider 1([facility])[phone] ZARINA Soliman Attending Provider 1([facility])[phone] Miky RN, Ramila Unavailable Unavailable Jolliff, Tami Alex Primary Care Provider [phone] Stefania Mendez Unavailable Unavailabl e JOLLIFF, TAMI ALEX Primary Care Unavailable CARLO, FREDA A Attending Unavailable JOLLIFF, TAMI ALEX Primary Care Unavailable CARLO, FREDA A Admitting Unavailable CARLO, FREDA A Attending Unavailable JOLLIFF, TAMI ALEX Primary Care Unavailable CARLO, FREDA A Admitting Unavailable CARLO, FREDA A Attending Unavailable CARLO, FREDA A Attending Unavailable JOLLIFF, TAMI ALEX Primary Care Unavailable JOLLIFF, TAMI ALEX Primary Care Unavailable NATANCALLIE Melgoza Attending Unavailable JOLLIFF, TAMI ALEX Primary Care Unavailable JOLLIFF, TAMI ALEX Referring Unavailable CARLO, FREDA A Attending Unavailable Kelley DUTY MANAGER.GREASE REFINER OPERATOR, Prospect Unavailable Henok EVANS, Ursula Unavailable Unavailable MASCI, CHRISTIANO A Referring Unavailable JOLLIFF, TAMI ALEX Primary Care Unavailable MASCI, CHRISTIANO A Referring Unavailable JOLLIFF, TAMI ALEX Primary Care Unavailable MASCI, CHRISTIANO A Referring Unavailable JOLLIFF, TAMI ALEX Primary Care Unavailable MASCI, CHRISTIANO A Referring Unavailable JOLLIFF, TAMI ALEX Primary Care Unavailable MASCI, CHRISTIANO A Referring Unavailable JOLLIFF, TAMI ALEX Primary Care Unavailable Masci DO, Christiano A Unavailable Charlene YOUNG, Dr. Tami Davenport Primary Care Provider Charlene YOUNG, Dr. Tami Davenport Referring Provider Lizz YOUNG, Dr. Sam Lara Attending Provider Dr. Sam Zamudio MD Other Provider Marika Martell Attending Provider Dr. Kristofer Hernandez DO Attending Provider Dr. Kristofer Hernandez DO Emergency Provider Ben Blue Attending Provider Juan Nieves MD Emergency Provider Dr. Buzz Alford DO Admit Provider Dr. Buzz Alford DO Attending Provider hCarlene YOUNG, Dr. Tami Davenport Primary Care Provider Charlene YOUNG, Dr. Tami Davenport Referring Provider Lizz YOUNG, Dr. Sam Lara Attending Provider Rocío AZAR, Dr. Gerber Other Provider Alva YOUNG, Dr. Nguyen Other Provider Bobby YOUNG, Dr. Abdi Other Provider Holden AZAR, Dr. Leon Attending Provider Breanna AZAR, Dr. Schmitz Other Provider Breanna AZAR, Dr. Schmitz Attending Provider Bobby YOUNG, Dr. Abdi Attending Provider Holden AZAR, Dr. Leon Other Provider Charlene YOUNG, Dr. Tami Davenport Primary Care Provider Charlene YOUNG, Dr. Tami Davenport Referring Provider Holden AZAR, Dr. Leon Referring Provider Pearl YOUNG, Dr. Santana Attending Provider Charlene YOUNG, Dr. Tami Davenport Attending Provider Bobby YOUNG, Dr. Abdi Referring Provider Christina YOUNG, Dr. Levin Attending Provider Dr. Guerrero Vasquez MD Referring Provider Dr. Eveline Argueta DO Primary Care Provider Dr. Tami Chang MD Primary Care Provider Dr. Tami Chang MD Referring Provider Eveline Argueta DO Unavailable TAMI CHANG Primary Care Unavailable TRESA PERDOMO Attending Unavaila NEHEMIAS Devlin Admitting Unavailable CHRISTINA IIIGUERRERO Consulting Unavailabl TAMI Lynn Primary Care Unavailable JOLLIFF, TAMI ALEX Primary Care Unavailable SIDNEY, ESTRADA R Attending Unavailable SIDNEY, ESTRADA R Admitting Unavailable DUMFORD III, GUERRERO Alvarado Referring Unavailabl e Ellie AZAR, Dr. Armendariz Attending Provider Ellie AZAR, Dr. Armendariz Referring Provider Mindy MOTORBOAT MECHANIC INBOARD-C, Marika Attending Provider Charlene YOUNG, Dr. Tami Davenport Primary Care Provider Charlene YOUNG, Dr. Tami Davenport Referring Provider Bobby YOUNG, Dr. Abdi Attending Provider Isaac YOUNG, Dr. Malone Attending Provider Ellie AZAR, Eveline Lara Primary Care Provider MASCI, CHRISTIANO A Referring Unavailable JOLLIFF, TAMI ALEX Primary Care Unavailable MASCI, CHRISTIANO A Referring Unavailable JOLLIFF, TAMI ALEX Primary Care Unavailable MASCI, CHRISTIANO A Referring Unavailable MALYS, EVELINE A Primary Care Unavailable MASCI, CHRISTIANO A Referring Unavailable MALYS, EVELINE A Primary Care Unavailable Ellie AZAR, Dr. Armendariz Primary Care Physician Christina YOUNG, Dr. Levin Attending Physician Christina YOUNG, Dr. Levin Referring Provider Ellie AZAR, Dr. Armendariz Attending Physician Mindy MOTORBOAT MECHANIC INBOARD-C, Marika Attending Physician [phone] Bobby YOUNG, Dr. Abdi Attending Physician Isaac YOUGN, Dr. Malone Attending Physician Gray MOTORBOAT MECHANIC INBOARD-C, Felicia Attending Physician [phone] Gray MOTORBOAT MECHANIC INBOARD-C, Felicia Referring Provider MASCI, CHRISTIANO A Referring Unavailable JOLLIFF, TAMI ALEX Primary Care Unavailable MASCI, CHRISTIANO A Referring Unavailable JOLLIFF, TAMI ALEX Primary Care Unavailable MASCI, CHRISTIANO A Referring Unavailable JOLLIFF, TAMI ALEX Primary Care Unavailable MASCI, CHRISTIANO A Referring Unavailable JOLLIFF, TAMI ALEX Primary Care Unavailable MASCI, CHRISTIANO A Referring Unavailable JOLLIFF, TAMI ALEX Primary Care Unavailable MASCI, CHRISTIANO A Referring Unavailable MALYS, EVELINE A Primary Care Unavailable DUMFORD III, GUERRERO Alvarado Referring Unavailabl e MALYS, EVELINE A Primary Care Unavailable MASCI, CHRISTIANO A Referring Unavailable MALYS, EVELINE A Primary Care Unavailable MASCI, CHRISTIANO A Referring Unavailable MALYS, EVELINE A Primary Care Unavailable MASCI, CHRISTIANO A Referring Unavailable DUMFORD III, GUERRERO Alvarado Referring Unavailabl e MASCI, CHRISTIANO A Referring Unavailable DUMFORD III, GUERRERO Alvarado Attending Unavailabl e MASCI, CHRISTIANO A Referring Unavailable MASCI, CHRISTIANO A Referring Unavailable JOLLIFF, [facility] Primary Care Unavailable MASCI, CHRISTIANO A Referring Unavailable JOLLIFF, [facility] Primary Care Unavailable MASCI, CHRISTIANO A Referring Unavailable JOLLIFF, [facility] Primary Care Unavailable MASCI, CHRISTIANO A Referring Unavailable JOLLIFF, [facility] Primary Care Unavailable DOMENIC KELLEY Referring Unavailable JOLLIFF, [facility] Primary Care Unavailable DUMFORD III, GUERRERO Alvarado Attending Unavailabl e JOLLIFF, [facility] Primary Care Unavailable DOMENIC KELLEY Attending Unavailable MASCI, CHRISTIANO A Referring Unavailable MASCI, CHRISTIANO A Referring Unavailable MASCI, CHRISTIANO A Referring Unavailable JOLLIFF, [facility] Primary Care Unavailable MASCI, CHRISTIANO A Referring Unavailable JOLLIFF, [facility] Primary Care Unavailable DOMENIC KELLEY Attending Unavailable MASCI, CHRISTIANO A Referring Unavailable JOLLIFF, [facility] Primary Care Unavailable MASCI, CHRISTIANO A Referring Unavailable JOLLIFF, [facility] Primary Care Unavailable MASCI, CHRISTIANO A Attending Unavailable MASCI, CHRISTIANO A Referring Unavailable JOLLIFF, [facility] Primary Care Unavailable MASCI, CHRISTIANO A Referring Unavailable MALYS, EVELINE A Primary Care Unavailable DUMFORD III, GUERRERO Alvarado Attending Unavailabl e DUMFORD III, GUERRERO Alvarado Referring Unavailabl e MASCI, CHRISTIANO A Referring Unavailable DOMENIC KELLEY Attending Unavailable MASCI, CHRISTIANO A Referring Unavailable JOLLIFF, [facility] Primary Care Unavailable DOMENIC KELLEY Attending Unavailable MASCI, CHRISTIANO A Referring Unavailable MASCI, CHRISTIANO A Referring Unavailable DUMFORD III, GUERRERO Alvarado Referring Unavailabl e DUMFORD III, GUERRERO Alvarado Referring Unavailabl e MALYS, EVELINE A Primary Care Unavailable MASCI, CHRISTIANO A Referring Unavailable MALYS, EVELINE A Primary Care Unavailable MASCI, CHRISTIANO A Referring Unavailable MALYS, EVELINE A Primary Care Unavailable MASCI, CHRISTIANO A Referring Unavailable JOLLIFF, [facility] Primary Care Unavailable MASCI, CHRISTIANO A Referring Unavailable JOLLIFF, TAMI ALEX Primary Care Unavailable MASCI, CHRISTIANO A Referring Unavailable JOLLIFF, TAMI ALEX Primary Care Unavailable MASCI, CHRISTIANO A Referring Unavailable JOLLIFF, TAMI ALEX Primary Care Unavailable LETY ZAZUETA Attending Unavailable JOLLIFF, TAMI ALEX Primary Care Unavailable MASCI, CHRISTIANO Lara Attending Unavailable MASCI, CHRISTIANO A Referring Unavailable JOLLIFF, TAMI ALEX Primary Care Unavailable MASCI, CHRISTIANO A Referring Unavailable MASCI, CHRISTIANO Lara Attending Unavailable MASCI, CHRISTIANO A Referring Unavailable JOLLIFF, TAMI ALEX Primary Care Unavailable DUMFORD III, GUERRERO M Referring Unavailabl e JOLLIFF, TAMI ALEX Primary Care Unavailable MASCI, CHRISTIANO A Referring Unavailable MASCI, CHRISTIANO A Attending Unavailable MASCI, CHRISTIANO A Referring Unavailable MALYS, EVELINE A Primary Care Unavailable MASCI, CHRISTIANO A Referring Unavailable MALYS, EVELINE A Primary Care Unavailable MASCI, CHRISTIANO A Referring Unavailable JOLLIFF, TAMI ALEX Primary Care Unavailable MASCI, CHRISTIANO A Referring Unavailable DUMFORD III, GUERRERO M Referring Unavailabl e MASCI, CHRISTIANO A Referring Unavailable JOLLIFF, TAMI ALEX Primary Care Unavailable MASCI, CHRISTIANO A Referring Unavailable JOLLIFF, TAMI ALEX Primary Care Unavailable DOMENIC KELLEY Attending Unavailable MASCI, CHRISTIANO A Referring Unavailable JOLLIFF, TAMI ALEX Primary Care Unavailable MASCI, CHRISTIANO A Referring Unavailable JOLLIFF, TAMI ALEX Primary Care Unavailable MASCI, CHRISTIANO A Referring Unavailable JOLLIFF, TAMI ALEX Primary Care Unavailable MASCI, CHRISTIANO A Referring Unavailable JOLLIFF, TAMI ALEX Primary Care Unavailable DOMENIC KELLEY Attending Unavailable MASCI, CHRISTIANO A Referring Unavailable JOLLIFF, TAMI ALEX Primary Care Unavailable Dr. Eveline Argueta DO Primary Care Physician Dr. Eveline Argueta DO Attending Physician Ellie AZAR, Dr. Armendariz Referring Provider [phone] Chayo Rowell Attending Physician [phone] Friend, Gurinder Referring Unavailable Malys, Eveline Primary Care Unavailable Friend, Gurinder Attending Unavailable Malys, Eveline Primary Care Unavailable Malys, Eveline Referring Unavailable Chayo Engle Attending Unavailable Jin Rosales Attending Unavailable Buzz Alford Admitting Unavailable Mosteller, Buzz Consulting Unavailable Jolliff, Tami S Primary Care Unavailable Basali, Ayman Consulting Unavailable Rosales, Jin Consulting Unavailable Teredwigeky, Dominik Consulting Unavailable Carolyn Hatch Consulting Unavailable Carolyn Hatch Attending Unavailable Kristofer Hernandez Attending Unavailable Jolliff, Tami S Primary Care Unavailable Rosales, Jin Attending Unavailable Jolliff, Tami S Primary Care Unavailable Jolliff, Tami S Referring Unavailable Rosales, Jin Attending Unavailable Jolliff, Tami S Primary Care Unavailable Carolyn Hatch Referring Unavailable TerDominik mitchell Attending Unavailable Mostihsan, Buzz Attending Unavailable Wanek Sam A Consulting Unavailable Jolliff, Tami S Primary Care Unavailable Jolliff, Tami S Referring Unavailable WanekSam Attending Unavailable Max Kang Attending Unavailable Jolliff, Tami S Primary Care Unavailable Jolliff, Tami S Primary Care Unavailable Jolliff, Tami S Referring Unavailable WanekSam Attending Unavailable MindyMarika Attending Unavailable Jolliff, Tami S Primary Care Unavailable Jolliff, Tami S Referring Unavailable Ben Weaver Attending Unavailable Jolliff, Tami S Primary Care Unavailable Jolliff, Tami S Referring Unavailable Rosales, Jin Referring Unavailable RosalesJin Attending Unavailable Jolliff, Tami S Primary Care Unavailable Jolliff, Tami S Referring Unavailable Jolliff, Tami S Attending Unavailable Jolliff, Tami S Primary Care Unavailable Jolliff, Tami S Primary Care Unavailable Jolliff, Tami S Referring Unavailable WanSam neumann Attending Unavailable Rocío, Buzz Consulting Unavailable Mostihsan, Buzz Admitting Unavailable Carolyn Hatch Attending Unavailable Jolliff, Tami S Primary Care Unavailable Basali, Ayman Consulting Unavailable Rosales, Jin Consulting Unavailable Tereletsky, Dominik Consulting Unavailable Rosales, Jin Attending Unavailable Jolliff, Tami S Primary Care Unavailable Marika Guillen Attending Unavailable Malys, Eveline Referring Unavailable Malys, Eveline Primary Care Unavailable Dumford III, Guerrero Referring Unavailable Dumford III, Guerrero Attending Unavailable Malys, Eveline Primary Care Unavailable Dumford III, Guerrero Referring Unavailable Malys, Eveline Primary Care Unavailable Dumford III, Guerrero Attending Unavailable Dumford III, Guerreor Attending Unavailable Dumford III, Guerrero Referring Unavailable Malys, Eveline Primary Care Unavailable Malys, Eveline Referring Unavailable Malys, Eveline Attending Unavailable Malys, Eveline Primary Care Unavailable Rosales, Jin Attending Unavailable Malys, Eveline Primary Care Unavailable Maljonathon, Eveline Primary Care Unavailable Maljonathon Eveline Referring Unavailable Nathanieljonathon Eveline Attending Unavailable Felicia Castellano Referring Unavailable Maljonathon, Eveline Primary Care Unavailable Felicia Castellano Attending Unavailable Allergies Allergy Classification Reported Allergen(s) Allergy Type Date of Onset Reaction(s) Facility Shellfish (1 source) Shellfish Food Allergy 1 [facility] (20 sources) Shellfish; Translations: [SHELLFISH DERIVED] Drug Allergy 1 [facility] (20 sources) Adhesive Tape-Silicones; Translations: [ADHESIVE TAPE-SILICONES] Drug Allergy 1 [facility] (8 sources) Petrolatum Drug Allergy 2 [facility] (18 sources) Adhesive Tape; Translations: [adhesive tape] Propensity to adverse reactions 3 [facility] (1 source) Petrolatum Drug Allergy 4 [facility] Repository Medications Current Medications Medication Drug Class(es) Dates Sig (Normalized) Sig (Original) acetaminophen 325 mg / HYDROcodone bitartrate 5 mg oral tablet (20 sources) Opioid Agonist Start: 10-05-2024 End: 10-12-2024 take 1 tablet by mouth every eight hours as needed for pain HYDROcodone-aceta minophen (NORCO) 5-325 mg per tablet Indications: Acute midline low back pain without sciatica Take 1 tablet by mouth every 8 hours as needed for pain for up to 7 days. 21 tablet 10/05/2024 Active Start: 07-16-2022 Hydrocodone-Ac etaminophen Active EACH PO July 16, 2022 1:00am Start: 03-02-2021 End: 05-06-2023 Comment on above: Take 1-2 tablets by mouth every 6 hours as needed for pain for up to 5 days. Take 1 tablet by miguel angel th every 6 hours as needed for pain for up to 3 days. amLODIPine 5 mg oral tablet (20 sources) Dihydropyridine Calcium Channel Javi Start: 4 take 1 tablet by mouth at bedtime baclofen 5 mg oral tablet (20 sources) gamma-Aminobutyric Acid-ergic Agonist Start: 5 baclofen 5 mg tablet 5 mg two times a day. 09/11/2024 Active Start: 09-05-2024 End: 11-04-2024 take 1 tablet by mouth three times daily clopidogrel 75 mg oral tablet (20 sources) P2Y12 Platelet Inhibitor Start: 06-16-2017 End: 12-19-2024 take 1 tablet by mouth once daily Comment on above: Take 75 mg by mouth once daily. doxycycline monohydrate 100 mg oral tablet (20 sources) Tetracycline-clas s Drug Start: 11-28-2024 End: 02-26-2025 take 1 tablet by mouth twice daily doxycycline monohydrate 100 mg tablet Take 1 tablet by mouth two times a day. 60 tablet 2 11/28/2024 02/26/2025 Active Start: 10-17-2024 End: 10-24-2024 take 1 tablet by mouth twice daily doxycycline monohydrate 100 mg tablet Take 1 tablet by mouth two times a day for 7 days. 14 tablet 10/17/2024 10/24/2024 Active enteric contrast (will be provided with radiology test) (1 source) Start: 09-25-2021 End: 09-26-2021 enteric contrast (will be provided with radiology test) Indications: Malignant neoplasm of breast in female, estrogen receptor positive, unspecified laterality, unspecified site of breast (HCC) , Liver metastases (HCC) , HER2-positive carcinoma of breast (HCC) For CT CHESTABD/PEL W IVCON Routine order Administer, As Directed One Time Only, via Oral, Rectal, both Oral and Rectal, Enteric Tube, Stoma or Indwelling Catheter, Enteric Contrast as designated per enteric contrast guidelines 1 Each 0 09/25/2021 09/26/2021 Active Comment on above: For CT CHESTABD/PEL W IVCON Routine order Administer, As Directed One Time Only, via Oral, Rectal, both Oral and Rectal, Enteric Tube, Stoma or Indwelling Catheter, Enteric Contrast as designated per enteric contrast guidelines esomeprazole 20 mg delayed release oral capsule (20 sources) Proton Pump Inhibitor Start: 09-25-2020 End: 04-30-2024 take 1 capsule by mouth once daily take 1 capsule by [facility] once daily, then take 6 capsules by mouth in the morning esomeprazole (NEXIUM) 40 mg capsule Take 40 mg by mouth DAILY (6 AM). Active Comment on above: Take 40 mg by mouth DAILY (6 AM). famotidine 40 mg oral tablet (1 source) Histamine-2 Receptor Antagonist Start: 03-19-20 take 1 tablet by mouth once daily FLUoxetine 40 mg oral capsule (20 sources) Serotonin Reuptake Inhibitor Start: 06-16-19 End: 09-09-19 take 1 capsule by mouth once daily Comment on above: Take 40 mg by mouth once daily. Take [address] [facility] once daily. Lactobacillus acidophilus (16 sources) End: 05-07-20 take 1 tablet by mouth once daily Lactobacillus acidophilus (PROBIOTIC ORAL) Take 1 tablet by mouth once daily. 0 05/07/2023 Discontinued take 1 tablet by mouth once emmanuel y Lactobacillus acidophilus (PROBIOTIC ORAL) Take 1 tablet by mouth once daily. 0 Active Comment on above: Take 1 tablet by miguel angel th once daily. letrozole 2.5 mg oral tablet (20 sources) Aromatase Inhibitor Start: 06-11-2021 End: 01-16-2025 take 1 tablet by mouth once daily Comment on above: Take 1 tablet by miguel angel th once daily. Take 2.5 mg by mouth once daily. levothyroxine sodium 0.125 mg oral tablet (20 sources) l-Thyroxine Start: 06-11-2021 End: 02-01-2022 Start: 06-11-2021 take 112 ug by mouth once daily Levothyroxine Active 112 MCG PO DAILY June 11, 2021 2:18pm Start: 06-16-2017 End: 06-11-2021 take 1 tablet by mouth once daily Levothyroxine 125 mcg tablet Discontinued 125 ug PO DAILY June 16, 2017 1:00am June 11, 2021 2:22pm End: 11-06-2021 take 1 tablet by mouth once daily levothyroxine (SYNTHROID) 112 mcg tablet Take 112 mcg by mouth once daily. Active Comment on above: Take 112 mcg by mout h daily before breakfast. Take 112 mcg by mout h once daily. liothyronine sodium 0.005 mg oral tablet (20 sources) l-Triiodothyronine Start: 05-21-2024 take 1 tablet by mouth once daily Start: 07-15-2017 End: 04-30-2024 take 1 tablet by mouth once daily Liothyronine 5 MCG tablet Discontinued 5 ug PO DAILY July 15, 2017 1:00am April 30, 2024 2:04pm Comment on above: Take 5 mcg by mouth once daily. lisinopril 20 mg oral tablet (20 sources) Angiotensin Converting Enzyme Inhibitor Start: 05-04-2020 take 1 tablet by mouth once daily Comment on above: Take 20 mg by mouth once daily. Multivitamin (Daily Multi-Vitamin) tablet (11 sources) Start: 08-25-2024 Start: 08-25-2024 Multivitamin ( Daily Multi-Vitamin) tablet Active 1 {tbl} PO DAILY August 25, 2024 12:00am perflutren lipid microsphere s 1.3 mL in NaCl (PF) 0.9% 10 mL injection (DEFINITY) (20 sources) Start: 01-03-2023 End: 04-03-2024 perflutren lipid microsphere s 1.3 mL in NaCl (PF) 0.9% 10 mL injection (DEFINITY) Start: 09-08-2022 End: 12-08-2023 perflutren lipid microsphere s 1.3 mL in NaCl (PF) 0.9% 10 mL injection (DEFINITY) Start: 05-05-2022 End: 08-04-2023 perflutren lipid microsphere s 1.3 mL in NaCl (PF) 0.9% 10 mL injection (DEFINITY) Start: 02-01-2022 End: 05-03-2023 perflutren lipid microsphere s 1.3 mL in NaCl (PF) 0.9% 10 mL injection (DEFINITY) Start: 09-25-2021 End: 12-25-2022 perflutren lipid microsphere s 1.3 mL in NaCl (PF) 0.9% 10 mL injection (DEFINITY) Start: 07-03-2021 End: 10-02-2022 perflutren lipid microsphere s 1.3 mL in NaCl (PF) 0.9% 10 mL injection (DEFINITY) Start: 01-20-2021 End: 04-21-2022 perflutren lipid microsphere s 1.3 mL in NaCl (PF) 0.9% 10 mL injection (DEFINITY) phenazopyridine hydrochloride 100 mg oral tablet (20 sources) Start: 01-14-2023 End: 01-16-2025 take 1 tablet by mouth after mealtime 125 ml sodium chloride 9 mg/ml prefilled syringe (20 sources) Start: 01-20-2021 End: 04-03-2024 sodium chloride 0.9 % (flush) 10 mL (BD POSIFLUSH) triamcinolone acetonide 1 mg/ml topical cream (8 sources) Corticosteroid Start: 01-07-2025 triamcinolone acetonide (KENALOG) 0.1 % cream APPLY TOPICALLY TO AFFECTED AREA TWICE A DAY FOR 1 WEEK 01/07/2025 Active zolpidem tartrate 10 mg oral tablet (20 sources) gamma-Aminobutyric Acid-ergic Agonist Start: 05-21-2024 take 1 tablet by mouth at bedtime Start: 06-16-2017 End: 04-30-2024 take 1 tablet by mouth at bedtime Zolpidem 10 mg tablet Discontinued 10 mg PO AT BEDTIME 30 30 0 June 16, 2017 1:00am April 30, 2024 1:50pm Comment on above: Take by mouth at bed time as needed. Take 10 mg by mouth at bedtime as needed. Take 10 mg by mouth daily at bedtime. Completed/Discontinued Medications Medication Drug Class(es) Dates Sig (Normalized) Sig (Original) acetaminophen 500 mg oral tablet (20 sources) Start: 08-29-2024 End: 09-11-2024 take 2 tablets by mouth every eight hours Acetaminophen 500 mg Tablet Discontinued 1000 mg PO EVERY 8 HOURS 0 0 August 29, 2024 12:00am September 11, 2024 12:40pm Start: 08-25-2024 End: 09-11-2024 Acetaminophen 650 mg tablet extended release Discontinued 650 mg PO NEEDED August 25, 2024 12:00am September 11, 2024 12:40pm ARTHRITIS ACETAMINOPHEN (T YLENOL ORAL) Take by mouth. Active ACETAMINOPHEN (T YLENOL ORAL) Take by mouth. 0 Active Comment on above: Take by mouth. acetaminophen 325 mg / oxyCODONE hydrochloride 5 mg oral tablet (19 sources) Opioid Agonist Start: 09-29-2020 End: 10-04-2020 Oxycodone-Acetaminophen 1 TABLET tablet Discontinued 1 - 2 {tbl} PO EVERY 4 HOURS NEEDED as needed for Pain 30 5 September 29, 2020 October 03, 2020 12:00am October 04, 2020 12:01am Admission for fitting and adjustment of vascular catheter Encounter for adjustment and management of vascular access device Start: 09-29-2020 End: 10-04-2020 take 1 tablet by mouth every four hours as needed Oxycodone-Acetaminophen Discontinued 1 - 2 TABLET PO EVERY 4 HOURS NEEDED 30 5 September 29, 2020 October 04, 2020 12:01am ALPRAZolam 0.5 mg oral tablet (20 sources) Benzodiazepine Start: 07-16-2022 End: 09-11-2024 take 1 tablet by mouth once daily as needed for anxiety Alprazolam 0.5 mg tablet Discontinued 0.5 mg PO DAILY as needed for anxiety July 21, 2022 11:00am September 11, 2024 12:40pm Start: 07-16-2022 End: 07-21-2022 Alprazolam 0.5 mg tablet Dis continued NMA PO July 16, 2022 1:00am July 21, 2022 11:00am Comment on above: Take 0.5 mg by mouth at bedtime as needed. amoxicillin 875 mg oral tablet (11 sources) Penicillin-class Antibacterial Start: 06-23-19 End: 06-30-19 take 1 tablet by mouth twice daily Amoxicillin 875 mg tablet Discontinued 875 mg PO TWICE A DAY 14 7 0 June 23, 2024 1:00am June 29, 2024 1:00am June 30, 2024 1:17am ascorbic acid 1000 mg oral tablet (20 sources) Vitamin C End: 04-16-20 take 1 tablet by mouth once daily Ascorbic Acid (VITAMIN C) 1,000 mg tablet Take 1,000 mg by mouth once daily. 04/16/2024 Discontinued Comment on above: Take 1,000 mg by miguel angel th once daily. benzonatate 100 mg oral capsule (19 sources) Non-narcotic Antitussive Start: 07-15-19 End: 01-10-20 19 take 2 capsules by mouth three times daily as needed for cough Benzonatate 100 MG capsule Discontinued 200 mg PO 3 TIMES DAILY NEEDED as needed for Cough 20 July 15, 2017 1:00am January 09, 2019 12:43pm Start: 07-15-2017 End: 01-09-2019 take 200 mg by mouth three times daily as needed Benzonatate Discontinued 200 MG PO 3 TIMES DAILY NEEDED July 15, 2017 1:00am January 09, 2019 12:43pm Calcium Carbonate (20 sources) End: 10-14-2023 take 1 tablet by mouth once daily calcium carbonate (CALCIUM 500 ORAL) Take 1 tablet by mouth once daily. 0 10/14/2023 Discontinued take 1 tablet by mouth once emmanuel y calcium carbonate (CALCIUM 500 ORAL) Take 1 tablet by mouth once daily. 0 Active take 2 tablets by mouth once haris ly calcium carbonate (CALCIUM 500 ORAL) Take 2 tablets by mouth once daily. 0 Active Comment on above: Take [address] [facility] once daily. Take 1 tablet by miguel angel once daily. Calcium Carbonate / vitamin D3 (20 sources) End: 09-08-2022 take 1 tablet by mouth twice daily calcium carbonate/vitamin D3 (CALCIUM + D ORAL) Take 1 tablet by mouth twice daily. 09/08/2022 Discontinued End: 09-08-2022 take 1 tablet by mouth twice daily calcium carbonate/vitamin D3 (CALCIUM + D ORAL) Take 1 tablet by mouth twice daily. 0 09/08/2022 Discontinued take 1 tablet by miguel angel twice daily calcium carbonate/vitamin D3 (CALCIUM + D ORAL) Take 1 tablet by mouth twice daily. 0 Active Comment on above: Take 1 tablet by miguel angel twice daily. cefuroxime 500 mg oral tablet (15 sources) Cephalosporin Antibacterial Start: 3 End: 3 take 1 tablet by mouth every twelve hours Cefuroxime Axetil 500 mg tablet Discontinued 500 mg PO Q12H 14 7 0 January 14, 2023 12:00am January 20, 2023 12:00am January 21, 2023 12:03am cephalexin 500 mg oral capsule (20 sources) Cephalosporin Antibacterial Start: 4 End: 4 take 1 capsule by mouth twice daily Cephalexin 500 mg capsule Discontinued 500 mg PO TWICE A DAY February 16, 2024 12:00am April 30, 2024 1:48pm Start: 01-29-2024 End: 02-08-2024 take 1 capsule by mouth every twelve hours Cephalexin 500 mg capsule Discontinued 500 mg PO Q12H 20 10 0 January 29, 2024 12:53pm February 07, 2024 12:00am February 08, 2024 12:03am Start: 05-22-2022 End: 06-01-2022 take 1 capsule by mouth every twelve hours Cephalexin 500 mg capsule Discontinued 500 mg PO Q12H 20 10 0 May 22, 2022 10:13am May 31, 2022 1:00am June 01, 2022 1:03am Start: 01-09-2019 End: 01-20-2019 take 1 capsule by mouth every twelve hours Cephalexin 500 mg capsule Discontinued 500 mg PO Q12H 20 10 0 January 09, 2019 12:00am January 18, 2019 12:00am January 20, 2019 12:07am cholecalciferol 0.05 mg oral capsule (20 sources) Vitamin D Start: 08-25-2024 End: 09-11-2024 take 1 capsule by mouth once daily Cholecalciferol (Vitamin D3) 50 mcg (2,000 unit) capsule Discontinued 50 ug PO DAILY August 25, 2024 12:00am September 11, 2024 12:40pm Start: 06-11-2021 End: 05-21-2024 take 1 capsule by mouth once daily Cholecalciferol (Vitamin D3) 50 mcg (2,000 unit) capsule Discontinued 50 ug PO DAILY June 11, 2021 1:00am May 21, 2024 9:47am End: 02-01-2022 take 1 capsule by mouth once daily Cholecalciferol, Vitamin D3, (VITAMIN D-3) 2,000 unit cap Take 2,000 Units by mouth once daily. 0 02/01/2022 Discontinued Comment on above: Take 2,000 Units by mouth once daily. ciprofloxacin 500 mg oral tablet (16 sources) Quinolone Antimicrobial Start: 12-02-19 End: 01-17-20 take 1 tablet by mouth every twelve hours ciprofloxacin HCl (CIPRO) 500 mg tablet Take 1 tablet by mouth every 12 hours. 12/01/2024 01/16/2025 Discontinued Start: 12-01-2024 End: 12-06-2024 take 1 tablet by mouth twice daily Ciprofloxacin Hcl (Cipro) 500 mg tablet Discontinued 500 mg PO TWICE A DAY 10 5 0 December 01, 2024 12:00am December 05, 2024 12:00am December 06, 2024 12:06am D-MANNOSE ORAL (20 sources) End: 02-16-2024 take 1 tablet by mouth once daily D-MANNOSE ORAL Take 1 tablet by mouth once daily. 02/16/2024 Discontinued (Other) take 1 tablet by mouth once emmanuel y D-MANNOSE ORAL Take 1 tablet by mouth once daily. Active take 1 tablet by mouth once emmanuel y D-MANNOSE ORAL Take 1 tablet by mouth once daily. 0 Active take 2 tablets by mouth once haris ly D-MANNOSE ORAL Take 2 tablets by mouth once daily. 0 Active Comment on above: Take [address] [facility] once daily. dexamethasone 1 mg/ml / neomycin 3.5 mg/ml / polymyxin b [id number] unt/ml ophthalmic suspension (11 sources) Aminoglycoside Antibacterial, Polymyxin-class Antibacterial, Corticosteroid Start: 02-16-20 End: 08-26-19 Neomycin-Polymyxin B-Dexameth 3.5mg/mL-10,000 unit/mL-0.1 % drops,suspension Discontinued 1 NMA OPHTHALMIC DAILY February 16, 2024 12:00am August 25, 2024 4:22pm DULoxetine 60 mg delayed release oral capsule (20 sources) Serotonin and Norepinephrine Reuptake Inhibitor Start: 07-28-19 End: 01-13-20 take 1 capsule by mouth once daily DULoxetine (CYMBALTA) 60 mg capsule Take 1 capsule by mouth once daily. 30 capsule 5 07/28/2022 01/12/2023 Discontinued Comment on above: Take 1 capsule by [facility] once daily. ferrous sulfate 325 mg oral tablet (12 sources) Start: 08-26-19 End: 09-12-19 take 1 tablet by mouth once daily Ferrous Sulfate (Feosol) 325 mg (65 mg iron) tablet Discontinued 325 mg PO DAILY August 25, 2024 12:00am September 11, 2024 12:41pm End: 09-08-2022 ferrous sulfate (IRON) 325 m g (65 mg iron) tablet Take 325 mg by mouth. 0 09/08/2022 Discontinued Comment on above: Take 325 mg by mouth . guaifenesin/dextrometh orphan (CORICIDIN HBP CHEST CROW-COUGH ORAL) (20 sources) End: 07-16-2024 guaifenesin/dextromethorph an (CORICIDIN HBP CHEST CROW-COUGH ORAL) Take by mouth. 07/16/2024 Discontinued (Course of therapy completed) guaifenesin/dext romethorphan (CORICIDIN HBP CHEST CRWO-COUGH ORAL) Take by mouth. Active hydrocortisone 0.025 mg/mg topical ointment (11 sources) Corticosteroid Start: 02-16-2024 End: 04-30-2024 Hydrocortisone 2.5 % ointment Discontinued TOPICAL February 16, 2024 12:00am April 30, 2024 1:50pm iv contrast (will be provided with radiology test) (13 sources) Start: 01-04-2025 End: 01-05-2025 iv contrast (will be provided with radiology test) Indications: 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, right (HCC) , HER2-positive carcinoma of left breast (HCC) , Stage IV breast cancer in female (HCC) , Carcinoma of left breast, stage 4 (HCC) MRI ABDOMEN Inject, intravenously, once for 1 dose. No IV access, insert saline lock prior to the beginning of sedation, infusion, injection of imaging exam. Discontinue saline lock post exam. If Pt. has a central line or IVAD, may access for administration according to line specific nursing protocol. Once exam is complete flush line and de-access according to line specific nursing protocol in the MR contrast administration guidelines link. 1 each 01/04/2025 01/05/2025 Start: 06-21-2024 End: 06-22-2024 iv contrast (will be provide d with radiology test) Indications: Malignant neoplasm of female breast, unspecified estrogen receptor status, unspecified laterality, unspecified site of breast (HCC) , 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) MRI ABDOMEN Inject, intravenously, once for 1 dose. No IV access, insert saline lock prior to the beginning of sedation, infusion, injection of imaging exam. Discontinue saline lock post exam. If Pt. has a central line or IVAD, may access for administration according to line specific nursing protocol. Once exam is complete flush line and de-access according to line specific nursing protocol in the MR contrast administration guidelines link. 1 Each 06/21/2024 06/22/2024 Active Start: 02-28-2024 End: 02-29-2024 iv contrast (will be provide d with radiology test) Indications: 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) , 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, right (HCC) , HER2-positive carcinoma of breast (HCC) MRI ABDOMEN Inject, intravenously, once for 1 dose. No IV access, insert saline lock prior to the beginning of sedation, infusion, injection of imaging exam. Discontinue saline lock post exam. If Pt. has a central line or IVAD, may access for administration according to line specific nursing protocol. Once exam is complete flush line and de-access according to line specific nursing protocol in the MR contrast administration guidelines link. 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 No IV access, insert saline lock prior to the beginning of sedation, infusion, injection of imaging exam. Discontinue saline lock post exam. If Pt. has a central line or IVAD, may access for administration according to line specific nursing protocol. Once exam is complete flush line and de-access according to line specific nursing protocol in the MR contrast administration guidelines link. 1 Each 0 11/23/2023 11/24/2023 Active Start: 10-11-2023 End: 10-12-2023 inject 1 dose intravenously once iv contrast (will be provided with radiology test) Indications: 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) MRI Brain Inject, intravenously, once for 1 dose.No IV access, insert saline lock prior to beginning of sedation, infusion, injection of imaging exam.Discontinue saline lock post exam. If Pt. has a central line or IVAD, may access for administration according to line specific nursing protocol.Once exam is complete flush line and de-access according to line specific nursing protocol in the MR contrast administration guidelines link 1 Each 0 10/11/2023 10/12/2023 Active Start: 07-20-2023 End: 07-21-2023 iv contrast (will be provide d with radiology test) Indications: Breast cancer, stage 4, left (HCC) , 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) , HER2-positive carcinoma of breast (HCC) MRI ABDOMEN Inject, intravenously, once for 1 dose. No IV access, insert saline lock prior to the beginning of sedation, infusion, injection of imaging exam. Discontinue saline lock post exam. If Pt. has a central line or IVAD, may access for administration according to line specific nursing protocol. Once exam is complete flush line and de-access according to line specific nursing protocol in the MR contrast administration guidelines link. 1 Each 0 07/20/2023 07/21/2023 Active Start: 01-03-2023 End: 01-04-2023 iv contrast (will be provide d with radiology test) Indications: Breast cancer, stage 4, left (HCC) , 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) MRI ABD/PEL Inject, intravenously, once for 1 dose. No IV access, insert saline lock prior to the beginning of sedation, infusion, injection of imaging exam. Discontinue saline lock post exam. If Pt. has a central line or IVAD, may access for administration according to line specific nursing protocol. Once exam is complete flush line and de-access according to line specific nursing protocol in the MR contrast administration guidelines link. 1 Each 0 01/03/2023 01/04/2023 Start: 09-08-2022 End: 09-09-2022 iv contrast (will be provide d with radiology test) Indications: Breast cancer, stage 4, left (HCC) , HER2-positive carcinoma of breast (HCC) , 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) MRI ABDOMEN Inject, intravenously, once for 1 dose. No IV access, insert saline lock prior to the beginning of sedation, infusion, injection of imaging exam. Discontinue saline lock post exam. If Pt. has a central line or IVAD, may access for administration according to line specific nursing protocol. Once exam is complete flush line and de-access according to line specific nursing protocol in the MR contrast administration guidelines link. 1 Each 0 09/08/2022 09/09/2022 Active Start: 05-05-2022 End: 05-06-2022 iv contrast (will be provide d with radiology test) Indications: HER2-positive carcinoma of breast (HCC) , Liver metastases (HCC) MRI ABDOMEN Inject, intravenously, once for 1 dose. No IV access, insert saline lock prior to the beginning of sedation, infusion, injection of imaging exam. Discontinue saline lock post exam. If Pt. has a central line or IVAD, may access for administration according to line specific nursing protocol. Once exam is complete flush line and de-access according to line specific nursing protocol in the MR contrast administration guidelines link. 1 Each 0 05/05/2022 05/06/2022 Active Start: 02-18-2022 End: 02-19-2022 inject 1 dose intravenously once iv contrast (will be provided with radiology test) Indications: HER2-positive carcinoma of breast (HCC) , Liver metastases (HCC) MRI Brain Inject, intravenously, once for 1 dose.No IV access, insert saline lock prior to beginning of sedation, infusion, injection of imaging exam.Discontinue saline lock post exam. If Pt. has a central line or IVAD, may access for administration according to line specific nursing protocol.Once exam is complete flush line and de-access according to line specific nursing protocol in the MR contrast administration guidelines link 1 Each 0 02/18/2022 02/19/2022 Start: 09-25-2021 End: 09-26-2021 iv contrast (will be provide d with radiology test) Indications: Malignant neoplasm of breast in female, estrogen receptor positive, unspecified laterality, unspecified site of breast (HCC) , Liver metastases (HCC) , HER2-positive carcinoma of breast (HCC) CT Chest ABD/PEL-Inject, intravenously, once for 1 dose.No IV access, insert saline lock prior to the beginning of sedation, infusion, injection of imaging exam. Discontinue saline lock post exam. If Pt. has a central line or IVAD, may access for administration according to line specific nursing protocol. Once exam is complete flush line and de-access according to line specific nursing protocol in the CT contrast administration guidelines link. 1 Each 0 09/25/2021 09/26/2021 Active Comment on above: CT Chest ABD/PEL-Inj ect, intravenously, once for 1 dose.No IV access, insert saline lock prior to the beginning of sedation, infusion, injection of imaging exam. Discontinue saline lock post exam. If Pt. has a central line or IVAD, may access for administration according to line specific nursing protocol. Once exam is complete flush line and de-access according to line specific nursing protocol in the CT contrast administration guidelines link. MRI Brain Inject, in travenously, once for 1 dose.No IV access, insert saline lock prior to beginning of sedation, infusion, injection of imaging exam.Discontinue saline lock post exam. If Pt. has a central line or IVAD, may access for administration according to line specific nursing protocol.Once exam is complete flush line and de-access according to line specific nursing protocol in the MR contrast administration guidelines link MRI ABDOMEN Inject, intravenously, once for 1 dose. No IV access, insert saline lock prior to the beginning of sedation, infusion, injection of imaging exam. Discontinue saline lock post exam. If Pt. has a central line or IVAD, may access for administration according to line specific nursing protocol. Once exam is complete flush line and de-access according to line specific nursing protocol in the MR contrast administration guidelines link. MRI ABD/PEL Inject, intravenously, once for 1 dose. No IV access, insert saline lock prior to the beginning of sedation, infusion, injection of imaging exam. Discontinue saline lock post exam. If Pt. has a central line or IVAD, may access for administration according to line specific nursing protocol. Once exam is complete flush line and de-access according to line specific nursing protocol in the MR contrast administration guidelines link. levoFLOXacin 500 mg oral tablet (19 sources) Quinolone Antimicrobial Start: 08-23-19 End: 08-08-19 take 1 tablet by mouth once daily Levofloxacin 500 mg tablet Discontinued 500 mg PO DAILY August 23, 2019 12:00am August 07, 2020 1:16pm lidocaine 0.05 mg/mg medicated patch (10 sources) Antiarrhythmic, Amide Local Anesthetic Start: 08-30-19 End: 09-12-19 Lidocaine 5 % Adhesive Patch,Medicated Discontinued 1 NMA TOPICAL DAILY 30 August 29, 2024 12:00am September 11, 2024 12:41pm Please contact the information source for Protocol details. lidocaine 25 mg/ml / prilocaine 25 mg/ml topical cream (20 sources) Antiarrhythmic, Amide Local Anesthetic Start: 06-24-19 End: 11-25-19 lidocaine-prilocaine (EMLA) 2.5-2.5 % cream Apply 60 minutes prior to accessing port. 15 g 2 06/24/2022 11/24/2022 Start: 07-27-2021 End: 12-27-2021 lidocaine-prilocaine (EMLA) 2.5-2.5 % cream Apply 60 minutes prior to accessing port. 15 g 2 07/27/2021 12/27/2021 Active Comment on above: Apply 60 minutes dylan or to accessing port. multivit,ther.w-ir on,hematinic (GWONH-F-QMNB ORAL) (20 sources) End: 02-01-2022 take 1 tablet by mouth once daily multivit,ther.w-iron,h ematinic (UPXTU-U-XXGA ORAL) Take 1 tablet by mouth once daily. 0 02/01/2022 Discontinued take 1 tablet by miguel angel th once daily multivit,ther.w-iron,hematinic (MULTI-B- PLUS ORAL) Take 1 tablet by mouth once daily. 0 Active multivit,ther.w- iron,hematinic (XBKEW-B-XLFH ORAL) Take by mouth. 0 Active Comment on above: Take by mouth. Take 1 tablet by miguel angel th once daily. multivit-min/ferrou s fumarate (MULTI VITAMIN ORAL) (20 sources) End: 12-05-2024 take 1 tablet by mouth once daily multivit-min/ferrous fumarate (MULTI VITAMIN ORAL) Take 1 tablet by mouth once daily. 12/05/2024 Discontinued take 1 tablet by mouth once emmanuel y multivit-min/ferrous fumarate (MULTI VITAMIN ORAL) Take 1 tablet by mouth once daily. Active multivitamin tablet (20 sources) End: 04-16-2024 take 1 tablet by mouth once daily multivitamin tablet Take 1 tablet by mouth once daily. 04/16/2024 Discontinued take 1 tablet by mouth once emmanuel y multivitamin tablet Take 1 tablet by mouth once daily. Active take 1 tablet by mouth once emmanuel y multivitamin tablet Take 1 tablet by mouth once daily. 0 Active Comment on above: Take 1 tablet by miguel angel th once daily. OTC PRODUCT (6 sources) End: 04-06-2023 take 1 tablet by mouth once daily OTC PRODUCT D-Mannose 2,000mg: Take one tablet by mouth once daily. 0 04/06/2023 Discontinued take 1 tablet by mouth once emmanuel y OTC PRODUCT D-Mannose 2,000mg: Take one tablet by mouth once daily. 0 Active Comment on above: D-Mannose 2,000mg: T alesia one tablet by mouth once daily. oxyCODONE hydrochloride 5 mg oral tablet (20 sources) Opioid Agonist Start: End: take 1 tablet by mouth every four hours as needed for pain Oxycodone 5 mg Tablet Discontinued 5 mg PO EVERY 4 HOURS NEEDED as needed for Pain Score 4-10 30 5 0 August 29, 2024 September 11, 2024 12:41pm Acute exacerbation of chronic low back pain Spondylolisthesis of lumbar region Fusion of lumbar spine Low back pain, unspecified Other chronic pain Spondylolisthesis, lumbar region Fusion of spine, lumbar region Start: 11-13-2019 End: 11-20-2019 take 1 tablet by mouth every eight hours as needed for pain Oxycodone 5 MG tablet Discontinued 5 mg PO Q8H as needed for Pain Score 4-5/10 21 7 0 November 13, 2019 November 19, 2019 12:00am November 20, 2019 12:02am Acute lumbar radiculopathy Radiculopathy, lumbar region promethazine hydrochloride 25 mg oral tablet (20 sources) Phenothiazine Start: 09-17-2020 End: 02-16-2024 take 1 tablet by mouth every six hours as needed promethazine (PHENERGAN) 25 mg tablet Take 1 tablet by mouth every 6 hours as needed. FOR NAUSEA 30 tablet 2 09/17/2020 02/16/2024 Discontinued Comment on above: Take 1 tablet by miguel angel th every 6 hours as needed. FOR NAUSEA psyllium 3400 mg powder for oral suspension (11 sources) Start: 08-25-2024 End: 09-11-2024 Psyllium Husk (Metamucil) 3.4 gram/5.4 gram powder Discontinued 1 tsp PO DAILY August 25, 2024 12:00am September 11, 2024 12:41pm mix into at least 4 oz water or juice before administering Sennosides (Senna) 8.6 mg Tablet (8 sources) Start: 08-29-2024 End: 09-11-2024 take 1 tablet by mouth twice daily Sennosides (Senna) 8.6 mg Tablet Discontinued 8.6 mg PO TWICE A DAY 14 0 August 29, 2024 12:00am September 11, 2024 12:41pm Start: 08-29-2024 End: 09-11-2024 take 1 tablet by mouth twice daily Sennosides (Senna) 8.6 mg Tablet Discontinued 8.6 mg PO TWICE A DAY 14 August 29, 2024 12:00am September 11, 2024 12:41pm Start: 08-29-2024 take 1 tablet by miguel angel th twice daily Sennosides (Senna) 8.6 mg Tablet Active 8.6 mg PO TWICE A DAY August 29, 2024 12:00am Sennosides (Senokot) 8.6 mg tablet (9 sources) Start: 04-30-2024 End: 08-25-2024 take 1 tablet by mouth once daily as needed for constipation Sennosides (Senokot) 8.6 mg tablet Discontinued 8.6 mg PO DAILY as needed for constipation April 30, 2024 1:50pm August 25, 2024 4:19pm sennosides, custodial 8.6 mg oral tablet (20 sources) Start: 08-29-2024 End: 09-11-2024 take 1 tablet by mouth twice daily Sennosides (Senna) 8.6 mg Tablet Discontinued 8.6 mg PO TWICE A DAY 14 August 29, 2024 12:00am September 11, 2024 12:41pm Start: 06-11-2021 End: 08-25-2024 take 1 tablet by mouth once daily as needed for constipation Sennosides (Senokot) 8.6 mg tablet Discontinued 8.6 mg PO DAILY as needed for constipation April 30, 2024 1:50pm August 25, 2024 4:19pm simvastatin 10 mg oral tablet (19 sources) HMG-CoA Reductase Inhibitor Start: 06-16-2017 End: 06-11-2021 take 2 tablets by mouth once daily in the evening Simvastatin 10 mg tablet Discontinued 10 mg PO EVERY EVENING June 16, 2017 1:00am June 11, 2021 2:21pm every other night sulfamethoxazole 800 mg / trimethoprim 160 mg oral tablet (9 sources) Dihydrofolate Reductase Inhibitor Antibacterial, Sulfonamide Antimicrobial Start: 01-02-2024 End: 02-16-2024 take 1 tablet by mouth twice daily sulfamethoxazole- trimethoprim (BACTRIM DS) 800-160 mg per tablet Take 1 tablet by mouth two times a day. 01/02/2024 02/16/2024 Discontinued tiZANidine 2 mg oral tablet (13 sources) Central alpha-2 Adrenergic Agonist Start: 11-28-2024 End: 01-16-2025 take 1 tablet by mouth every eight hours as needed tiZANidine (ZANAFLEX) 2 mg tablet Take 1 tablet by mouth every 8 hours as needed. 30 tablet 11/28/2024 01/16/2025 Discontinued trastuzumab-anns 404.4 mg in NaCl 0.9% 294.2494 mL ([facility]) (9 sources) Start: 03-30-2024 End: 03-30-2024 404.4 mg (6 mg/kg/dose 67.4 kg Treatment plan Recorded weight), INTRAVENOUS, Administer over 30 Minutes, ONCE, 1 dose, On Tue03/30/24 at 1400, - DO NOT SHAKE exp 1330 04/09/24 (refrigerated) Refrigerate Start: 03-09-2024 End: 03-09-2024 404.4 mg (6 mg/kg/dose 67.4 kg Treatment plan Recorded weight), INTRAVENOUS, Administer over 30 Minutes, ONCE, 1 dose, On Tue03/09/24 at 1330, - DO NOT SHAKE exp 1400 03/18/24 (refrigerated) Refrigerate Start: 02-17-2024 End: 02-17-2024 404.4 mg (6 mg/kg/dose 67.4 kg Treatment plan Recorded weight), INTRAVENOUS, Administer over 30 Minutes, ONCE, 1 dose, On Tue02/17/24 at 0900, Approx Total Volume - IMMEDIATE USE at room temp DO NOT SHAKE Refrigerate Start: 01-27-2024 End: 01-27-2024 404.4 mg (6 mg/kg/dose 67.4 kg Treatment plan Recorded weight), INTRAVENOUS, Administer over 30 Minutes, ONCE, 1 dose, On Tue01/27/24 at 1330, - DO NOT SHAKE exp 0900 02/06/24 (refrigerated) Refrigerate Start: 01-06-2024 End: 01-06-2024 trastuzumab-anns 404.4 mg in NaCl 0.9% 294.2494 mL ([facility]) Start: 12-16-2023 End: 12-16-2023 trastuzumab-anns 404.4 mg in NaCl 0.9% 294.2494 mL ([facility]) Start: 11-25-2023 End: 11-25-2023 trastuzumab-anns 404.4 mg in NaCl 0.9% 294.2494 mL ([facility]) Start: 11-04-2023 End: 11-04-2023 trastuzumab-anns 404.4 mg in NaCl 0.9% 294.2494 mL ([facility] [facility] Start: 10-14-2023 End: 10-14-2023 trastuzumab-anns 404.4 mg in NaCl 0.9% 294.2494 mL ([facility]) trastuzumab-anns 405.6 mg in NaCl 0.9% 294.3066 mL ([facility]) (1 source) Start: 09-14-2024 End: 09-14-2024 405.6 mg (6 mg/kg/dose 67.6 kg Treatment plan Recorded weight), INTRAVENOUS, Administer over 30 Minutes, ONCE, 1 dose, On Tue09/14/24 at 1330, - DO NOT SHAKE exp 1030 09/24/24 (refrigerated) Refrigerate trastuzumab-anns 405.6 mg in NaCl 0.9% 294.3143 mL ([facility]) (5 sources) Start: 02-08-2025 End: 02-08-2025 405.6 mg (6 mg/kg/dose 67.6 kg Treatment plan Recorded weight), INTRAVENOUS, Administer over 30 Minutes, ONCE, 1 dose, On Tue02/08/25 at 1100, Approx Total Volume - IMMEDIATE USE at room temp DO NOT SHAKE Refrigerate Start: 01-18-2025 End: 01-18-2025 405.6 mg (6 mg/kg/dose 67.6 kg Treatment plan Recorded weight), INTRAVENOUS, Administer over 30 Minutes, ONCE, 1 dose, On Tue01/18/25 at 1100, Approx Total Volume - exp 0900 01/28/25 (refrigerated) DO NOT SHAKE Refrigerate Start: 12-28-2024 End: 12-28-2024 405.6 mg (6 mg/kg/dose 67.6 kg Treatment plan Recorded weight), INTRAVENOUS, Administer over 30 Minutes, ONCE, 1 dose, On Tue12/28/24 at 1100, Approx Total Volume - IMMEDIATE USE at room temp DO NOT SHAKE Refrigerate Start: 12-06-2024 End: 12-06-2024 405.6 mg (6 mg/kg/dose 67.6 kg Treatment plan Recorded weight), INTRAVENOUS, Administer over 30 Minutes, ONCE, 1 dose, On Tue12/06/24 at 0930, Approx Total Volume - IMMEDIATE USE at room temp DO NOT SHAKE Refrigerate Start: 11-16-2024 End: 11-16-2024 405.6 mg (6 mg/kg/dose 67.6 kg Treatment plan Recorded weight), INTRAVENOUS, Administer over 30 Minutes, ONCE, 1 dose, On Tue11/16/24 at 1330, Approx Total Volume - IMMEDIATE USE at room temp DO NOT SHAKE Refrigerate trastuzumab-anns 427.2 mg in NaCl 0.9% 295.3347 mL ([facility]) (7 sources) Start: 08-24-2024 End: 08-24-2024 427.2 mg (6 mg/kg/dose 71.2 kg Treatment plan Recorded weight), INTRAVENOUS, Administer over 30 Minutes, ONCE, 1 dose, On Tue08/24/24 at 1330, Approx Total Volume - IMMEDIATE USE at room temp DO NOT SHAKE Refrigerate Start: 08-03-2024 End: 08-03-2024 427.2 mg (6 mg/kg/dose 71.2 kg Treatment plan Recorded weight), INTRAVENOUS, Administer over 30 Minutes, ONCE, 1 dose, On Tue08/03/24 at 1330, Approx Total Volume - IMMEDIATE USE at room temp DO NOT SHAKE Refrigerate Start: 07-13-2024 End: 07-13-2024 427.2 mg (6 mg/kg/dose 71.2 kg Treatment plan Recorded weight), INTRAVENOUS, Administer over 30 Minutes, ONCE, 1 dose, On Tue07/13/24 at 1400, - DO NOT SHAKE exp 1130 07/23/24 (refrigerated) . Refrigerate Start: 06-22-2024 End: 06-22-2024 427.2 mg (6 mg/kg/dose 71.2 kg Treatment plan Recorded weight), INTRAVENOUS, Administer over 30 Minutes, ONCE, 1 dose, On Tue06/22/24 at 1130, - DO NOT SHAKE exp 1400 07/01/24 (refrigerated) Refrigerate Start: 06-01-2024 End: 06-01-2024 427.2 mg (6 mg/kg/dose 71.2 kg Treatment plan Recorded weight), INTRAVENOUS, Administer over 30 Minutes, ONCE, 1 dose, On Tue06/01/24 at 1100, - DO NOT SHAKE exp 0900 06/11/24 (refrigerated) . Refrigerate Start: 05-11-2024 End: 05-11-2024 427.2 mg (6 mg/kg/dose 71.2 kg Treatment plan Recorded weight), INTRAVENOUS, Administer over 30 Minutes, ONCE, 1 dose, On Tue05/11/24 at 1330, - DO NOT SHAKE exp 1030 05/21/24 (refrigerated). Refrigerate Start: 04-20-2024 End: 04-20-2024 427.2 mg (6 mg/kg/dose 71.2 kg Treatment plan Recorded weight), INTRAVENOUS, Administer over 30 Minutes, ONCE, 1 dose, On Tue04/20/24 at 1030, - DO NOT SHAKE exp 1400 04/27/24 (refrigerated) Refrigerate vibegron (GEMTESA) 75 mg tablet (7 sources) End: 04-06-2023 take 1 tablet by mouth once daily vibegron (GEMTESA) 75 mg tablet Take 75 mg by mouth once daily. 0 04/06/2023 Discontinued take 1 tablet by mouth once emmanuel y vibegron (GEMTESA) 75 mg tablet Take 75 mg by mouth once daily. 0 Active Comment on above: Take 75 mg by mouth once daily. Zinc (3 sources) End: 09-25-2021 take 1 tablet by mouth once daily ZINC ORAL Take 1 tablet by mouth once daily. 0 09/25/2021 Discontinued take 1 tablet by mouth once emmanuel y ZINC ORAL Take 1 tablet by mouth once daily. 0 Active Comment on above: Take 1 tablet by miguel angel th once daily. Problems Active Problems Problem Classification Problem Date Documented Da te Episodic/Chronic Abdominal hernia (20 sources) Lumbar hernia; Translations: [Other specified abdominal hernia without obstruction or gangrene] 06-11-2021 Episodic Comment on above: This is a 76-year-ol d female with a history of stage IV breast cancer who presents with a newly diagnosed left lumbar hernia likely related to a remote (2014) spine operation via a lateral approach. Patient is symptomatic from this finding with pain occurring several times a day. Hernia contains descending colon. She denies any obstructive symptomology. I held a lengthy conversation with both the patient and her spouse regarding the possibility of an elective repair as I reviewed the CT imaging with them. I stated it was imperative to consider the Mrs. Bishop's long-term prognosis, risk factors for surgery (pain inadvertent bowel injury, etc. ), and what the surgery may mean to her outlook from her cancer (potentially rendering her immunocompromised and affording time for tumor growth). I also advised her that this is a more rare hernia presentation and case numbers would be few for most general surgeons outside of a tertiary center. Still, given that the patient has a virgin abdomen and that her hernia seems to spontaneously reduce, I find her a potentially reasonable candidate for a minimally invasive hernia repair. Unfortunately, given this is not a ventral hernia I would not feel comfortable performing a laparoscopic procedure, but could see a possibility for a robotic platform given the enhanced wristed articulation with that technology. Therefore, I offered her a visitation with my partner Dr. Frey. She and her accepted this and had a several questions related to her possible risk for strangulation/incarceration. I suggested this was less likely given the inclusion of ascending colon (being less mobile) but still a possibility. Warning signs for such a scenario were given and patient was advised to present for emergent medical attention should she experience them. Abdominal pain (20 sources) Epigastric pain; Translations: [Epigastric pain] Onset: 5 Episodic Anxiety disorders (20 sources) Mixed anxiety and depressive disorder; Translations: [Anxiety disorder, unspecified] Onset: 4 06-20-2023 Chronic Cancer of breast (20 sources) Malignant neoplasm of female breast; Translations: [Malignant neoplasm of unspecified site of unspecified female breast] Onset: 1 Chronic Deficiency and other anemia (1 source) Anemia; Translations: [Anemia, unspecified] Episodic Esophageal disorders (3 sources) Gastroesophageal reflux disease; Translations: [Gastro-esophageal reflux disease without esophagitis] Chronic Headache; including migraine (1 source) New daily persistent headache; Translations: [New daily persistent headache (NDPH)] 10-11-2023 Chronic Infective arthritis and osteomyelitis (except that caused by tuberculosis or sexually transmitted disease) (7 sources) Osteomyelitis of vertebra; Translations: [Osteomyelitis of vertebra, site unspecified] Onset: 5 11-28-2024 Chronic Maintenance chemotherapy; radiotherapy (1 source) Patient encounter status; Translations: [Encounter for antineoplastic immunotherapy] Chronic Neoplasms of unspecified nature or uncertain behavior (2 sources) Thrombocytosis; Translations: [Thrombocytosis] 06-21-2024 Episodic Nonmalignant breast conditions (20 sources) Breast seroma; Translations: [Other specified disorders of breast] Onset: 4 08-10-2023 Episodic Osteoporosis (2 sources) Osteoporosis; Translations: [Other osteoporosis without current pathological fracture] Onset: 5 05-20-2023 Chronic Other acquired deformities (20 sources) Lumbar spondylolisthesis; Translations: [Spondylolisthesis, lumbar region] 08-27-2024 Episodic Other aftercare (19 sources) Patient encounter status; Translations: [Encounter for adjustment and management of vascular access device] 09-29-2020 Episodic Other aftercare (3 sources) Drug therapy finding; Translations: [Encounter for therapeutic drug level monitoring] 04-06-2023 Episodic Other aftercare (2 sources) Long-term current use of drug therapy; Translations: [Encounter for therapeutic drug level monitoring] 04-16-2024 Episodic Other and ill-defined heart disease (20 sources) Diastolic dysfunction; Translations: [Other ill-defined heart diseases] Onset: 4 06-20-2023 Chronic Other connective tissue disease (18 sources) Trochanteric bursitis; Translations: [Trochanteric bursitis, left hip] 11-13-2021 Episodic Other connective tissue disease (1 source) Trochanteric bursitis, left hip; Translations: [Enthesopathy of hip region] Episodic Other connective tissue disease (1 source) Psoas syndrome; Translations: [Other specified disorders of muscle] 11-28-2024 Episodic Other eye disorders (11 sources) Subconjunctival hemorrhage of right eye; Translations: [Conjunctival hemorrhage, right eye] 02-05-2024 Episodic Other gastrointestinal disorders (20 sources) History of Posadas's esophagus; Translations: [Personal history of other diseases of the digestive system] Onset: 3 12-31-2022 Episodic Other lower respiratory disease (11 sources) Viral respiratory infection; Translations: [Other specified respiratory disorders] 06-12-2024 Episodic Other nervous system disorders (19 sources) Unable to walk; Translations: [Difficulty in walking, not elsewhere classified] 08-25-2024 Chronic Other nervous system disorders (3 sources) Other chronic pain; Translations: [Chronic right-sided low back pain without sciatica] Onset: 4 Chronic Other nervous system disorders (1 source) Difficulty in walking, not elsewhere classified; Translations: [Difficulty in walking, not elsewhere classified] Onset: 5 Chronic Other non-traumatic joint disorders (2 sources) Hip pain; Translations: [Pain in left hip] Episodic Other non-traumatic joint disorders (1 source) Greater trochanteric pain syndrome of left lower limb; Translations: [Pain in left hip] Episodic Other nutritional; endocrine; and metabolic disorders (19 sources) H/O: thyroid disorder; Translations: [Personal history of other endocrine, nutritional and metabolic disease] 06-11-2021 Episodic Other skin disorders (1 source) Disorder of skin and/or subcutaneous tissue; Translations: [Excessive and redundant skin and subcutaneous tissue] 11-09-2023 Episodic Other skin disorders (1 source) Excessive and redundant skin and subcutaneous tissue; Translations: [Excessive and redundant skin and subcutaneous tissue] Onset: 4 Episodic Residual codes; unclassified (20 sources) Sleep apnea; Translations: [Sleep apnea, unspecified] Onset: 4 06-11-2021 Chronic Secondary malignancies (20 sources) Secondary malignant neoplasm of liver; Translations: [Secondary malignant neoplasm of liver and intrahepatic bile duct] Onset: 1 Chronic Secondary malignancies (9 sources) Secondary malignant neoplasm of liver and intrahepatic bile duct; Translations: [Malignant neoplasm of liver, secondary] Onset: 4 07-21-2022 Chronic Spondylosis; intervertebral disc disorders; other back problems (20 sources) Discitis; Translations: [Discitis, unspecified, thoracolumbar region] Onset: 5 10-04-2024 Chronic Superficial injury; contusion (20 sources) Foreign body of foot; Translations: [Superficial foreign body, left foot, initial encounter] 12-12-2017 Episodic Thyroid disorders (20 sources) Acquired hypothyroidism; Translations: [Hypothyroidism, unspecified] Onset: 2 Chronic Transient cerebral ischemia (20 sources) Transient cerebral ischemia; Translations: [Transient cerebral ischemic attack, unspecified] Onset: 4 06-20-2023 Chronic Unclassified (1 source) Established Patient Onset: 4 Unclassified (3 sources) HER2-positive carcinoma of left breast (HCC); Translations: [HER2-positive carcinoma of left breast (HCC)] Onset: 4 Unclassified (1 source) Radiology NM Onset: 4 Unclassified (7 sources) 09/11/2024 Patient Labs Scheduled Unclassified (15 sources) Spondylolisthesis of lumbar region; Translations: [M43.16 - Spondylolisthesis, lumbar region,M54.50 - Low back pain, unspecified] Unclassified (1 source) Acute midline low back pain without sciatica; Translations: [Acute midline low back pain without sciatica] Onset: 5 Unclassified (1 source) Chronic right-sided low back pain without sciatica; Translations: [Chronic right-sided low back pain without sciatica] Onset: 4 Unclassified (1 source) Sent By Md Onset: 5 Unclassified (1 source) Chemotherapy Treatment Onset: 5 Unclassified (2 sources) Low back pain, unspecified; Translations: [Low back pain, unspecified] Onset: 5 Past or Other Problems Problem Classification Problem Date Documented Da te Episodic/Chronic Genitourinary symptoms and ill-defined conditions (20 sources) Acute retention of urine ; Translations: [Other retention of urine] Onset: 08-29-2024 08-25-2024 Episodic Malaise and fatigue (1 source) Other fatigue; Translations: [Other fatigue] Onset: 06-02-2024 Episodic Nonspecific chest pain (12 sources) Acute chest pain; Translations: [Chest pain, unspecified] Onset: 06-28-2024 06-12-2024 Episodic Other acquired deformities (2 sources) Spondylolisthesis, lumbar region; Translations: [Spondylolisthesis, lumbar region] Onset: 09-11-2024 Episodic Other aftercare (1 source) Encounter for therapeutic drug level monitoring; Translations: [Encounter for monitoring cardiotoxic drug therapy] Onset: 04-20-2024 Episodic Other aftercare (1 source) Other detention (current) drug therapy; Translations: [Encounter for monitoring cardiotoxic drug therapy] Onset: 04-20-2024 Episodic Other connective tissue disease (1 source) Other specified disorders of muscle; Translations: [Psoas syndrome] Onset: 11-28-2024 Episodic Other gastrointestinal disorders (3 sources) Personal history of other diseases of the digestive system; Translations: [Personal history of other diseases of digestive system] Onset: 06-25-2024 12-31-2022 Episodic Other non-epithelial cancer of skin (20 sources) Basal cell carcinoma of skin; Translations: [Basal cell carcinoma of skin, unspecified] Onset: 06-20-2023 06-20-2023 Episodic Other screening for suspected conditions (not mental disorders or infectious disease) (3 sources) Imaging of musculoskeletal system abnormal; Translations: [Abnormal findings on diagnostic imaging of other parts of musculoskeletal system] Onset: 06-25-2024 10-08-2024 Episodic Other upper respiratory infections (20 sources) Upper respiratory infection; Translations: [Acute upper respiratory infection, unspecified] Onset: 06-23-2024 06-16-2017 Episodic Residual codes; unclassified (3 sources) Estrogen receptor positive status [ER+]; Translations: [Malignant neoplasm of breast in female, estrogen receptor positive, unspecified laterality, unspecified site of breast (HCC)] Onset: 06-28-2023 Episodic Spondylosis; intervertebral disc disorders; other back problems (20 sources) Chronic back pain ; Translations: [Dorsalgia, unspecified] Onset: 06-20-2023 06-20-2023 Episodic Unclassified (1 source) Long-term current use of drug therapy 08-03-2024 Unclassified (3 sources) 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, right (HCC) 01-07-2025 Urinary tract infections (20 sources) Urinary tract infectious disease; Translations: [Urinary tract infection, site not specified] Onset: 11-12-2024 05-22-2022 Episodic Results Test Name Value Interpretation Reference Range Facility MR/PAT.Anitha 04-03-2025 MR/PAT.MICHELE TAMEZ [facility] Medical Records Department [address] [place] [address] PAT - Anesthesia 04/03/25 1413 MR#: [id number] Acct: [id number] Name: DANETTE BISHOP Rep #: [id number] : 1945 80 From: Brant Tipton MD PCP: Dr. Eveline Argueta, DO Status:PRE [facility] [place] Y Race: C Location: EN Pre-Assessment Diagnosis/Proposed Procedure Planned Operative Procedure(s): EGD Anesthesia History Anesthesia History - activities director: Anesthesia History - activities director Hx Hospitalization Yes: BACK PAIN 04/03/25 10:50 Any Problems With Anesthesia No 04/03/25 10:50 Cholinesterase deficiency No 04/03/25 10:50 You/Your Family Experience No 04/03/25 10:50 fever (hyperthermia) with Relationship Recent Exposure to Contagious No 05/23/24 12:40 Disease Does patient have nerve No 04/03/25 10:50 stimulator Patient instructed to have device shut off --Does patient have Pacemaker or ICD? When Was Last Pacemaker Check QUESTION #4 FULL TEXT: You/Your Family Experience fever (hyperthermia) with Anesthesia Last Oral Intake Last Oral intake: Last Oral Intake NPO since Meds taken in AM with sips of water? 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 - activities director: PONV - activities director Female Yes 04/03/25 10:50 HX of Motion Sickness No 04/03/25 10:50 HX of N/V After Surgery No 04/03/25 10:50 Non-Smoker Yes 04/03/25 10:50 Duration of Surgery greater No 04/03/25 10:50 than 60 minutes Number of Risk Factors 2 04/03/25 10:50 PONV Score Moderate Risk 04/03/25 10:50 Height Weight Height Weight: Anesthesia: Height Weight Height 5 ft 1 in 11/20/24 09:13 Respiratory Assessment Respiratory Assessment - activities director: Respiratory Tract Infection Hx - activities director Hx Respiratory Tract Infection No 04/03/25 10:50 STOP Sleep Apnea STOP Sleep Apnea - activities director: STOP Sleep Apnea - activities director Hx Hypertension Yes 04/03/25 10:50 Hx Sleep Apnea No 04/03/25 10:50 CPAP No 08/25/24 18:42 BIPAP No 08/25/24 18:42 Do you snore loudly (louder No 04/03/25 10:50 than talking or can be heard Do you often feel tired/ No 04/03/25 10:50 fatigued/ sleepy during daytime? Has anyone observed you stop No 04/03/25 10:50 breathing during sleep? STOP Results Negative 04/03/25 10:50 QUESTION #5 FULL TEXT : Do you snore loudly (louder than talking or can be heard through closed doors)? 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 Specify any problems Hx of Preganancy in last 3 No 04/03/25 10:50 Months Nurse Filling Out Transfusion [facility] 04/03/25 10:50 Questions: Date: 04/03/25 04/03/25 10:50 Time: 10:55 04/03/25 10:50 Patient unable to answer at this time (ie. confused, unrespo /Reproduction History /Reproductive History - activities director: /Reproductive Hx- activities director Hx Now No 04/03/25 10:50 Gestational Age (in weeks): EDC: Hx Hx Para Hx Section SAB No 04/03/25 10:50 PFSH Medical History Chronic back pain Breast cancer Liver cancer Wears glasses Post-menopausal Cancer Depression Anxiety Alcohol use Thyroid disease Anemia Easy bruising Excessive bleeding Back pain TIA (transient ischemic attack) History of hiatal hernia History of ulceration History of IBS Gastric reflux Former smoker Shortness of breath on exertion History of echocardiogram Hypertension History of irregular heartbeat History of rheumatic fever LUQ pain 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 Epigastric abdominal pain Liver metastasis 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 Wears dentures Sleep apnea History of TIA (transient ischemic attack) History of thyroid disease Back pain Neck pain Severe headache Stomach ulcer History of cance (more content not included)... Normal [facility] CBC W Auto Differential pane l (Bld)on 03-20-2025 Basophils (Bld) [#/Vol] 0.09 10*3/uL Normal <0.11 [facility] Comment on above: Order Comment: Speci men Type: BLOOD SPECIMENOrdering Facility: [facility] Address: [address] [place] [address] Performed By: #### 5 7021-8 ####[facility]TON[facility]IA [id number] [place] [address] [place] Basophils/100 WBC (Bld) 1.3 % Normal [facility] Comment on above: Order Comment: Speci men Type: BLOOD SPECIMENOrdering Facility: [facility] Address: [address] [place] [address] Performed By: #### 5 7021-8 ####[facility] [id number] [place] [address] [place] Differential cell count method Nom (Bld) Auto Normal [facility] Comment on above: Order Comment: Speci men Type: BLOOD SPECIMENOrdering Facility: [facility] Address: [address] [place] [address] Performed By: #### 5 7021-8 ####[facility] [id number] [place] [address] [place] Eosinophils (Bld) [#/Vol] 0.06 10*3/uL Normal <0.46 [facility] Comment on above: Order Comment: Speci men Type: BLOOD SPECIMENOrdering Facility: [facility] Address: [address] [place] [address] Performed By: #### 5 7021-8 ####[facility] [id number] [place] [address] [place] Eosinophils/100 WBC (Bld) 0.8 % Normal [facility] Comment on above: Order Comment: Speci men Type: BLOOD SPECIMENOrdering Facility: [facility] Address: [address] [place] [address] Performed By: #### 5 7021-8 ####[facility] HARDIKKALONARAFFY [id number] [place] [address] [place] Erythrocyte distribution width (RBC) [Ratio] 16.5 % High 11.5-15.0 [facility] Comment on above: Order Comment: Speci men Type: BLOOD SPECIMENOrdering Facility: [facility] Address: [address] [place] [address] Performed By: #### 5 7021-8 ####[facility]INCSHR[facility] [id number] [place] [address] [place] Hematocrit (Bld) [Volume fraction] 32.6 % Low 36.0-46.0 [facility] Comment on above: Order Comment: Speci men Type: BLOOD SPECIMENOrdering Facility: [facility] Address: [address] [place] [address] Performed By: #### 5 7021-8 ####[facility] [id number] [place] [address] [place] Hemoglobin (Bld) [Mass/Vol] 11.3 g/dL Low 11.5-15.5 [facility] Comment on above: Order Comment: Speci men Type: BLOOD SPECIMENOrdering Facility: [facility] Address: [address] [place] [address] Performed By: #### 5 7021-8 ####[facility] MIAMINCLIA [id number] [place] [address] [place] Immature granulocytes (Bld) [#/Vol] 10*3/uL Normal <0.10 [facility] Comment on above: Order Comment: Speci men Type: BLOOD SPECIMENOrdering Facility: [facility] Address: [address] [place] [address] Performed By: #### 5 7021-8 ####[facility]ITALKATYLIA [id number] [place] [address] [place] Immature granulocytes/100 WBC (Bld) 0.3 % Normal [facility] Comment on above: Order Comment: Speci men Type: BLOOD SPECIMENOrdering Facility: [facility] Address: [address] [place] [address] Performed By: #### 5 7021-8 ####[facility] MIAMIJENNIFERJane [id number] [place] [address] [place] Lymphocytes (Bld) [#/Vol] 2.06 10*3/uL Normal 1.00-4.00 [facility] Comment on above: Order Comment: Speci men Type: BLOOD SPECIMENOrdering Facility: [facility] Address: [address] [place] [address] Performed By: #### 5 7021-8 ####[facility] [id number] [place] [address] [place] Lymphocytes/100 WBC (Bld) 28.7 % Normal [facility] Comment on above: Order Comment: Speci men Type: BLOOD SPECIMENOrdering Facility: [facility] Address: [address] [place] [address] Performed By: #### 5 7021-8 ####[facility] DAYTONLORENZOA [id number] [place] [address] [place] MCH (RBC) [Entitic mass] 29.3 pg Normal 26.0-34.0 [facility] Comment on above: Order Comment: Speci men Type: BLOOD SPECIMENOrdering Facility: [facility] Address: [address] [place] [address] Performed By: #### 5 7021-8 ####[facility] MIAMINCLIA [id number] [place] [address] [place] MCHC (RBC) [Mass/Vol] 34.7 g/dL Normal 30.5-36.0 [facility] Comment on above: Order Comment: Speci men Type: BLOOD SPECIMENOrdering Facility: [facility] Address: [address] [place] [address] Performed By: #### 5 7021-8 ####[facility] MIAMINCLI [id number] [place] [address] [place] MCV (RBC) [Entitic vol] 84.5 fL Normal 80.0-100.0 [facility] Comment on above: Order Comment: Speci men Type: BLOOD SPECIMENOrdering Facility: [facility] Address: [address] [place] [address] Performed By: #### 5 7021-8 ####[facility] MIAMINCSHRINERS HOSPITALS FOR CHILDREN [id number] [place] [address] [place] Monocytes (Bld) [#/Vol] 0.51 10*3/uL Normal <0.87 [facility] Comment on above: Order Comment: Speci men Type: BLOOD SPECIMENOrdering Facility: [facility] Address: [address] [place] [address] Performed By: #### 5 7021-8 ####[facility] MIAMINCLI [id number] [place] [address] [place] Monocytes/100 WBC (Bld) 7.1 % Normal [facility] Comment on above: Order Comment: Speci men Type: BLOOD SPECIMENOrdering Facility: [facility] Address: [address] [place] [address] Performed By: #### 5 7021-8 ####[facility] [id number] [place] [address] [place] Neutrophils (Bld) [#/Vol] 4.45 10*3/uL Normal 1.45-7.50 [facility] Comment on above: Order Comment: Speci men Type: BLOOD SPECIMENOrdering Facility: [facility] Address: [address] [place] [address] Performed By: #### 5 7021-8 ####[facility] HARDIKWNCLIA [id number] [place] [address] [place] Neutrophils/100 WBC (Bld) 61.8 % Normal [facility] Comment on above: Order Comment: Speci men Type: BLOOD SPECIMENOrdering Facility: [facility] Address: [address] [place] [address] Performed By: #### 5 7021-8 ####[facility] DAYTONLIA [id number] [place] [address] [place] Nucleated RBC (Bld) [#/Vol] 10*3/uL Normal <0.01 [facility] Comment on above: Order Comment: Speci men Type: BLOOD SPECIMENOrdering Facility: [facility] Address: [address] [place] [address] Performed By: #### 5 7021-8 ####[facility] DAYTONLIA [id number] [place] [address] [place] Nucleated RBC/100 WBC (Bld) [Ratio] 0.0 /100 WBC Normal [facility] Comment on above: Order Comment: Speci men Type: BLOOD SPECIMENOrdering Facility: [facility] Address: [address] [place] [address] Performed By: #### 5 7021-8 ####[facility] MIAMINCLIA [id number] [place] [address] [place] Platelet mean volume (Bld) [Entitic vol] 8.8 fL Low 9.0-12.7 [facility] Comment on above: Order Comment: Speci men Type: BLOOD SPECIMENOrdering Facility: [facility] Address: [address] [place] [address] Performed By: #### 5 7021-8 ####[facility] DAYTONLIA [id number] [place] [address] [place] Platelets (Bld) [#/Vol] 424 10*3/uL High 150-400 [facility] Comment on above: Order Comment: Speci men Type: BLOOD SPECIMENOrdering Facility: [facility] Address: [address] [place] [address] Performed By: #### 5 7021-8 ####[facility]A [id number] [place] [address] [place] RBC (Bld) [#/Vol] 3.86 10*6/uL Low 3.90-5.20 [facility] Comment on above: Order Comment: Speci men Type: BLOOD SPECIMENOrdering Facility: [facility] Address: [address] [place] [address] Performed By: #### 5 7021-8 ####[facility]A [id number] [place] [address] [place] WBC (Bld) [#/Vol] 7.19 10*3/uL Normal 3.70-11.00 [facility] Comment on above: Order Comment: Speci men Type: BLOOD SPECIMENOrdering Facility: [facility] Address: [address] [place] [address] Performed By: #### 5 7021-8 ####[facility]A [id number] [place] [address] [place] Comprehensive metabolic 2000 panelon 03-20-2025 Albumin [Mass/Vol] 4.2 g/dL Normal 3.9-4.9 [facility] Comment on above: Order Comment: Speci men Type: BLOOD SPECIMENOrdering Facility: [facility] Address: [address] [place] [address] Performed By: #### 2 4323-8 ####[facility] MIAMIJENNIFERLIA [id number] [place] [address] [place] ALP [Catalytic activity/Vol] 69 U/L Normal 34-123 [facility] Comment on above: Order Comment: Speci men Type: BLOOD SPECIMENOrdering Facility: [facility] Address: [address] [place] [address] Performed By: #### 2 4323-8 ####[facility] JOI MILLWNCLIA [id number] [place] [address] [place] ALT [Catalytic activity/Vol] 14 U/L Normal 7-38 [facility] Comment on above: Order Comment: Speci men Type: BLOOD SPECIMENOrdering Facility: [facility] Address: [address] [place] [address] Performed By: #### 2 4323-8 ####[facility] MIAMINCLIA [id number] [place] [address] [place] Anion gap [Moles/Vol] 10 mmol/L Normal 8-15 [facility] Comment on above: Order Comment: Speci men Type: BLOOD SPECIMENOrdering Facility: [facility] Address: [address] [place] [address] Performed By: #### 2 4323-8 ####[facility] DAYTONLIA [id number] [place] [address] [place] AST [Catalytic activity/Vol] 14 U/L Normal 13-35 [facility] Comment on above: Order Comment: Speci men Type: BLOOD SPECIMENOrdering Facility: [facility] Address: [address] [place] [address] Performed By: #### 2 4323-8 ####[facility] DAYTONLIA [id number] [place] [address] [place] Bilirubin [Mass/Vol] 0.7 mg/dL Normal 0.2-1.3 [facility] Comment on above: Order Comment: Speci men Type: BLOOD SPECIMENOrdering Facility: [facility] Address: [address] [place] [address] Performed By: #### 2 4323-8 ####[facility] JOI MILLTOWNCLIA [id number] [place] [address] [place] Calcium [Mass/Vol] 8.9 mg/dL Normal 8.5-10.2 [facility] Comment on above: Order Comment: Speci men Type: BLOOD SPECIMENOrdering Facility: [facility] Address: [address] [place] [address] Performed By: #### 2 4323-8 ####[facility] MILLTOWNCLIA [id number] [place] [address] [place] Chloride [Moles/Vol] 96 mmol/L Low 98-107 [facility] Comment on above: Order Comment: Speci men Type: BLOOD SPECIMENOrdering Facility: [facility] Address: [address] [place] [address] Performed By: #### 2 4323-8 ####[facility] MILLTOWNCLIA [id number] [place] [address] [place] CO2 [Moles/Vol] 22 mmol/L Normal 22-30 [facility] Comment on above: Order Comment: Speci men Type: BLOOD SPECIMENOrdering Facility: [facility] Address: [address] [place] [address] Performed By: #### 2 4323-8 ####[facility] JOI MILLTOWNCLIA [id number] [place] [address] [place] Creatinine [Mass/Vol] 0.64 mg/dL Normal 0.58-0.96 [facility] Comment on above: Order Comment: Speci men Type: BLOOD SPECIMENOrdering Facility: [facility] Address: [address] [place] [address] Performed By: #### 2 4323-8 ####[facility] MILLTOWNCLIA [id number] [place] [address] [place] eGFRcr SerPlBld CKD-EPI 2020 90 mL/min/1.73m??? Normal >=60 [facility] Comment on above: Order Comment: Katrina li Type: BLOOD SPECIMENOrdering Facility: [facility] Address: [address] [place] [address] Result Comment: Amina mated Glomerular Filtration Rate (eGFR) is calculated using the 2020 CKD-EPI creatinine equation. This equation utilizes serum creatinine, sex, and age as parameters. The creatinine assay has traceable calibration to isotope dilution-mass spectrometry. Refer to KDIGO guidelines for clinical interpretation. In patients with unstable renal function, e.g. those with acute kidney injury, the eGFR may not accurately reflect actual GFR. Performed By: #### 2 4323-8 ####[facility] [id number] [place] [address] [place] Glucose [Mass/Vol] 96 mg/dL Normal 74-99 [facility] Comment on above: Order Comment: Katrina li Type: BLOOD SPECIMENOrdering Facility: [facility] Address: [address] [place] [address] Result Comment: The [place] Diabetes Association (ADA) provides guidance for cutoff values for fasting glucose and random glucose. The ADA defines fasting as no caloric intake for at least 8 hours. Fasting plasma glucose results between 100 to 125 mg/dL indicate increased risk for diabetes (prediabetes).Fasting plasma glucose results greater than or equal to 126 mg/dL meet the criteria for diagnosis of diabetes. In the absence of unequivocal hyperglycemia, results should be confirmed by repeat testing. In a patient with classic symptoms of hyperglycemia or hyperglycemic crisis, random plasma glucose results greater than or equal to 200 mg/dL meet the criteria for diagnosis of diabetes.Reference: Standards of Medical Care in Diabetes 2016, [place] Diabetes Association. Diabetes Care. 2016.39(Suppl 1). Performed By: #### 2 4323-8 ####[facility] [id number] [place] [address] [place] Potassium [Moles/Vol] 3.9 mmol/L Normal 3.7-5.1 [facility] Comment on above: Order Comment: Speci men Type: BLOOD SPECIMENOrdering Facility: [facility] Address: [address] [place] [address] Performed By: #### 2 4323-8 ####[facility] MIAMINCLIA [id number] [place] [address] [place] Protein [Mass/Vol] 6.8 g/dL Normal 6.3-8.0 [facility] Comment on above: Order Comment: Speci men Type: BLOOD SPECIMENOrdering Facility: [facility] Address: [address] [place] [address] Performed By: #### 2 4323-8 ####[facility] MIAMINCSHRINERS H[facility]ITALS FOR CHILDREN [id number] [place] [address] [place] Sodium [Moles/Vol] 128 mmol/L Low 136-144 [facility] Comment on above: Order Comment: Speci men Type: BLOOD SPECIMENOrdering Facility: [facility] Address: [address] [place] [address] Performed By: #### 2 4323-8 ####[facility] MIAMINCLIA [id number] [place] [address] [place] Urea nitrogen [Mass/Vol] 13 mg/dL Normal 7-21 [facility] Comment on above: Order Comment: Speci men Type: BLOOD SPECIMENOrdering Facility: [facility] Address: [address] [place] [address] Performed By: #### 2 4323-8 ####[facility] MIAMINCLIA [id number] [place] [address] [place] [id number] 03-20-2025 ECG01 Normal [facility] Gastroenterology Visit Repor ton 03-19-2025 Gastroenterology Visit Report [facility] [address] [place] [address] OFFICE VISIT Date of Service: 03/19/25 MR#: [id number] Acct: [id number] Name: DANETTE BISHOP Rep #: [id number] : 1945 Provider: ZARINA Kent Age/Sex: 79/F Location: [facility] Status: Signed Intake Vital Signs 11/20/24 09:13 Height 5 ft 1 in Intake 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 Chief Complaint: Epigastric/left upper quadrant pain Allergies shellfish derived Allergy (Severe, Verified 03/19/25 08:32) throat swelling adhesive tape Adverse Reaction (Verified 03/19/25 08:32) Rash Medications ???Medication ???Instructions ???Recorded ???Confirmed ???Type fluoxetine 40 mg capsule 40 mg PO DAILY 06/16/17 03/19/25 H istory lisinopril 20 mg tablet 20 mg PO DAILY 09/25/20 03/19/25 H istory levothyroxine 125 mcg tablet 112 mcg PO DAILY 30 days #27 tabs 06/11/21 03/19/25 History hydrocodone-acetaminophen 5-325mg 1 tab PO Q6H PRN pain 07/16/22 History 5mg-325mg letrozole 2.5 mg tablet 2.5 mg PO DAILY 02/16/24 03/19/25 History amlodipine 5 mg tablet 5 mg PO QHS 04/30/24 03/19/25 Hist ory clopidogrel 75 mg tablet 75 mg PO DAILY 04/30/24 03/19/25 H istory esomeprazole magnesium 20 mg 20 mg PO DAILY 04/30/24 03/19/25 H istory capsule,delayed release (Nexium) liothyronine 5 mcg tablet 5 mcg PO DAILY 05/21/24 03/19/25 H istory zolpidem 10 mg tablet 10 mg PO QHS 05/21/24 03/19/25 His tory multivitamin (Daily Multi-Vitamin 1 tab PO DAILY 08/25/24 03/19/25 History tablet) baclofen 5 mg tablet 5 mg PO TID 09/11/24 03/19/25 Hist ory phenazopyridine 100 mg tablet 100 mg PO QPC 6 doses #6 tabs 11/0503/19/25 Rx (Pyridium) famotidine 40 mg tablet 40 mg PO QDAY #30 tabs 03/19/25 Rx Have you fallen in the past year?: No PFSH Medical History Chronic back pain Breast cancer Liver cancer Wears glasses Post-menopausal Cancer Depression Anxiety Alcohol use Thyroid disease Anemia Easy bruising Excessive bleeding Back pain TIA (transient ischemic attack) History of hiatal hernia History of ulceration History of IBS Gastric reflux Former smoker Shortness of breath on exertion History of echocardiogram Hypertension History of irregular heartbeat History of rheumatic fever LUQ pain 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 Epigastric abdominal pain Liver metastasis 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 Wears dentures Sleep apnea History of TIA (transient ischemic attack) History of thyroid disease Back pain Neck pain Severe headache Stomach ulcer History of cancer Arthritis History of hypertension Surgical History History of lumpectomy History of back surgery History of thyroid surgery Family History Mother Colon cancer passed from recurrence Thyroid disorder Father Hypertension CVA (cerebral vascular accident) Sister Breast cancer, Onset Age: 87 Aunt Colon cancer paternal Social History household members: spouse Smoking Status: Former smoker how long ago did patient quit smoking: >50 years ago; off and on for 2 years, socially only alcohol intake: current alcohol intake frequency: 0-2 drinks per day Alcohol type: wine details: socially substance use type: does not use additional social history: denies vaping, denies marijuana, denies edibles, denies aspirin and ibuprofen use HPI HPI Chief Complaint: Epigastric/left upper quadrant pain Details: DANETTE BISHOP, is a 79 F who presents to the office today for establishment. Past medical history of breast cancer with metastases to the liver. EGD 05.23.24 - Normal duodenal bulb. - Multiple gastric polyps. Resected and retrieved. - The examination was otherwise normal. - No gross lesions in the entire esophagus. Biopsied. Colonoscopy 05.23.24 - One 4 mm polyp in the sigmoid colon, removed with a cold biopsy forceps. Resected and retrieved. - One 15 mm polyp in the cecum, removed with a hot snare. Resected and retrieved. - The examination was otherwise normal on direct and retroflexion views. Patient referred from primary care provider for epigastric/left upper quadrant pain since October 2024. Patient notes that it seemed to have started while she was taking doxycycline for 3 months due to a spinal infection. She has pain about 20 minutes after eating anything. Certain foods are worse like spicy foods and alcohol. The pain may last up to 2 hours and she will feel very bloated and uncomfortable during. Moving to different (more content not included)... Normal [facility] CRP SerPl-mCncon 03-13-2025 CRP [Mass/Vol] mg/L Normal <0.9 [facility] Comment on above: Order Comment: Speci men Type: BLOOD SPECIMENOrdering Facility: [facility] Address: [address] [place] [address] Performed By: #### 1 988-5 ####[facility] LABCLIA [id number] [address] [place] Abdomen Completeon 5 Abdomen Complete [facility] [address] [place], [place] [id number] Abdomen Complete MR#: [id number] Acct: [id number] Name: DANETTE BISHOP Rep #: [id number] : 1945 F 79 From: Miguel Mortensen MD PCP: Dr. Eveline Argueta, DO Status: REG CLI Study: Abdomen Complete Date of Exam: 02/28/25 Exam# [id number] Ordering Dr: Felicia Castellano [employer]-C PROCEDURE: ABDOMEN COMPLETE 02/28/2025 REASON FOR EXAM: L/R UPPER QUAD PAIN TECHNIQUE: Procedure [facility] Modality: US Procedure: ABDOMEN COMPLETE COMPARISON: 07/08/2020 FINDINGS: Liver: Grossly normal size and echotexture.. The liver measures 12.7 cm in vertical dimension in the midclavicular line. There is normal hepatopetal flow in the portal venous system. Gallbladder: No stones, sludge, wall thickening or tenderness. Common bile duct: 3 mm Pancreas: Visualized portions are sonographically unremarkable. Kidneys: The right kidney measures 10.0 x 4.4 x 4.3 cm. The left kidney measures 10.0 x 4.9 x 4.7 cm. Renal parenchymal thicknesses and echotextures are preserved. No hydronephrosis. Spleen: The spleen is not visualized. Aorta: Visualized abdominal aorta is of normal size. IVC: Visualized inferior vena cava is unremarkable. Peritoneal Findings: No ascites identified. US/Abdomen Complete IMPRESSION: The spleen is not visualized. Otherwise unremarkable. Reading Location: [id number] CC: TYLER Castellano; Dr. Eveline Argueta DO Home Care Liaison: Signed Normal [facility] CNOVSPon 02-27-2025 CNOVSP Normal [facility] CBC W Auto Differential pane l (Bld)on 02-26-2025 Basophils (Bld) [#/Vol] 0.07 10*3/uL Normal <0.11 [facility] Comment on above: Order Comment: Speci men Type: BLOOD SPECIMENOrdering Facility: [facility] Address: [address] [place] [address] Performed By: #### 5 7021-8 ####[facility] [id number] [place] [address] [place] Basophils/100 WBC (Bld) 0.9 % Normal [facility] Comment on above: Order Comment: Speci men Type: BLOOD SPECIMENOrdering Facility: [facility] Address: [address] [place] [address] Performed By: #### 5 7021-8 ####[facility] [id number] [place] [address] [place] Differential cell count method Nom (Bld) Auto Normal [facility] Comment on above: Order Comment: Speci men Type: BLOOD SPECIMENOrdering Facility: [facility] Address: [address] [place] [address] Performed By: #### 5 7021-8 ####[facility] MILLWNCLIA [id number] [place] [address] [place] Eosinophils (Bld) [#/Vol] 0.06 10*3/uL Normal <0.46 [facility] Comment on above: Order Comment: Speci men Type: BLOOD SPECIMENOrdering Facility: [facility] Address: [address] [place] [address] Performed By: #### 5 7021-8 ####[facility] DAYTONLIA [id number] [place] [address] [place] Eosinophils/100 WBC (Bld) 0.8 % Normal [facility] Comment on above: Order Comment: Speci men Type: BLOOD SPECIMENOrdering Facility: [facility] Address: [address] [place] [address] Performed By: #### 5 7021-8 ####[facility] DAYTONLI [id number] [place] [address] [place] Erythrocyte distribution width (RBC) [Ratio] 15.9 % High 11.5-15.0 [facility] Comment on above: Order Comment: Speci men Type: BLOOD SPECIMENOrdering Facility: [facility] Address: [address] [place] [address] Performed By: #### 5 7021-8 ####[facility] DAYTONLIA [id number] [place] [address] [place] Hematocrit (Bld) [Volume fraction] 34.1 % Low 36.0-46.0 [facility] Comment on above: Order Comment: Speci men Type: BLOOD SPECIMENOrdering Facility: [facility] Address: [address] [place] [address] Performed By: #### 5 7021-8 ####[facility] MIAMINCLIA [id number] [place] [address] [place] Hemoglobin (Bld) [Mass/Vol] 11.7 g/dL Normal 11.5-15.5 [facility] Comment on above: Order Comment: Speci men Type: BLOOD SPECIMENOrdering Facility: [facility] Address: [address] [place] [address] Performed By: #### 5 7021-8 ####[facility] [id number] [place] [address] [place] Immature granulocytes (Bld) [#/Vol] 10*3/uL Normal <0.10 [facility] Comment on above: Order Comment: Speci men Type: BLOOD SPECIMENOrdering Facility: [facility] Address: [address] [place] [address] Performed By: #### 5 7021-8 ####[facility] [id number] [place] [address] [place] Immature granulocytes/100 WBC (Bld) 0.3 % Normal [facility] Comment on above: Order Comment: Speci men Type: BLOOD SPECIMENOrdering Facility: [facility] Address: [address] [place] [address] Performed By: #### 5 7021-8 ####[facility] [id number] [place] [address] [place] Lymphocytes (Bld) [#/Vol] 1.97 10*3/uL Normal 1.00-4.00 [facility] Comment on above: Order Comment: Speci men Type: BLOOD SPECIMENOrdering Facility: [facility] Address: [address] [place] [address] Performed By: #### 5 7021-8 ####[facility] [id number] [place] [address] [place] Lymphocytes/100 WBC (Bld) 25.6 % Normal [facility] Comment on above: Order Comment: Speci men Type: BLOOD SPECIMENOrdering Facility: [facility] Address: [address] [place] [address] Performed By: #### 5 7021-8 ####[facility] HARDIKKALONARAFFY [id number] [address] MCH (RBC) [Entitic mass] 29.4 pg Normal 26.0-34.0 [facility] Comment on above: Order Comment: Speci men Type: BLOOD SPECIMENOrdering Facility: [facility] Address: [address] [place] [address] Performed By: #### 5 7021-8 ####[facility] MIAMINCJane [id number] [address] [place] MCHC (RBC) [Mass/Vol] 34.3 g/dL Normal 30.5-36.0 [facility] Comment on above: Order Comment: Speci men Type: BLOOD SPECIMENOrdering Facility: [facility] Address: [address] [place] [address] Performed By: #### 5 7021-8 ####[facility]INCSHRIN[facility] [id number] [place] [address] [place] MCV (RBC) [Entitic vol] 85.7 fL Normal 80.0-100.0 [facility] Comment on above: Order Comment: Speci men Type: BLOOD SPECIMENOrdering Facility: [facility] Address: [address] [place] [address] Performed By: #### 5 7021-8 ####[facility] MIAMINCA [id number] [place] [address] [place] Monocytes (Bld) [#/Vol] 0.47 10*3/uL Normal <0.87 [facility] Comment on above: Order Comment: Speci men Type: BLOOD SPECIMENOrdering Facility: [facility] Address: [address] [place] [address] Performed By: #### 5 7021-8 ####[facility] CENTERWNCLIA [id number] [place] [address] [place] Monocytes/100 WBC (Bld) 6.1 % Normal [facility] Comment on above: Order Comment: Speci men Type: BLOOD SPECIMENOrdering Facility: [facility] Address: [address] [place] [address] Performed By: #### 5 7021-8 ####[facility] DAYTONLIA [id number] [place] [address] [place] Neutrophils (Bld) [#/Vol] 5.11 10*3/uL Normal 1.45-7.50 [facility] Comment on above: Order Comment: Speci men Type: BLOOD SPECIMENOrdering Facility: [facility] Address: [address] [place] [address] Performed By: #### 5 7021-8 ####[facility]ENTERA [id number] [place] [address] [place] Neutrophils/100 WBC (Bld) 66.3 % Normal [facility] Comment on above: Order Comment: Speci men Type: BLOOD SPECIMENOrdering Facility: [facility] Address: [address] [place] [address] Performed By: #### 5 7021-8 ####[facility] DAYTONLIA [id number] [place] [address] [place] Nucleated RBC (Bld) [#/Vol] 10*3/uL Normal <0.01 [facility] Comment on above: Order Comment: Speci men Type: BLOOD SPECIMENOrdering Facility: [facility] Address: [address] [place] [address] Performed By: #### 5 7021-8 ####[facility] MIAMINCLIA [id number] [place] [address] [place] Nucleated RBC/100 WBC (Bld) [Ratio] 0.0 /100 WBC Normal [facility] Comment on above: Order Comment: Speci men Type: BLOOD SPECIMENOrdering Facility: [facility] Address: [address] [place] [address] Performed By: #### 5 7021-8 ####[facility]INCSHRIN[facility] FOR CHILDREN [id number] [place] [address] [place] Platelet mean volume (Bld) [Entitic vol] 9.4 fL Normal 9.0-12.7 [facility] Comment on above: Order Comment: Speci men Type: BLOOD SPECIMENOrdering Facility: [facility] Address: [address] [place] [address] Performed By: #### 5 7021-8 ####[facility]INCSHRINERS H[facility] FOR CHILDREN [id number] [place] [address] [place] Platelets (Bld) [#/Vol] 366 10*3/uL Normal 150-400 [facility] Comment on above: Order Comment: Speci men Type: BLOOD SPECIMENOrdering Facility: [facility] Address: [address] [place] [address] Performed By: #### 5 7021-8 ####[facility] [id number] [place] [address] [place] RBC (Bld) [#/Vol] 3.98 10*6/uL Normal 3.90-5.20 [facility] Comment on above: Order Comment: Speci men Type: BLOOD SPECIMENOrdering Facility: [facility] Address: [address] [place] [address] Performed By: #### 5 7021-8 ####[facility] MIAMINCLI [id number] [place] [address] [place] WBC (Bld) [#/Vol] 7.70 10*3/uL Normal 3.70-11.00 [facility] Comment on above: Order Comment: Speci men Type: BLOOD SPECIMENOrdering Facility: [facility] Address: [address] [place] [address] Performed By: #### 5 7021-8 ####[facility] TERIA [id number] [place] [address] [place] Comprehensive metabolic 2000 panelon 02-26-2025 Albumin [Mass/Vol] 4.3 g/dL Normal 3.9-4.9 [facility] Comment on above: Order Comment: Speci men Type: BLOOD SPECIMENOrdering Facility: [facility] Address: [address] [place] [address] Performed By: #### 2 4323-8 ####[facility] MIAMINCLIA [id number] [place] [address] [place] ALP [Catalytic activity/Vol] 73 U/L Normal 34-123 [facility] Comment on above: Order Comment: Speci men Type: BLOOD SPECIMENOrdering Facility: [facility] Address: [address] [place] [address] Performed By: #### 2 4323-8 ####[facility] MIAMIMAYNORA [id number] [place] [address] [place] ALT [Catalytic activity/Vol] 12 U/L Normal 7-38 [facility] Comment on above: Order Comment: Speci men Type: BLOOD SPECIMENOrdering Facility: [facility] Address: [address] [place] [address] Performed By: #### 2 4323-8 ####[facility] MIAMINCLIA [id number] [place] [address] [place] Anion gap [Moles/Vol] 13 mmol/L Normal 8-15 [facility] Comment on above: Order Comment: Speci men Type: BLOOD SPECIMENOrdering Facility: [facility] Address: [address] [place] [address] Performed By: #### 2 4323-8 ####[facility] MILLTOWNCLIA [id number] [place] [address] [place] AST [Catalytic activity/Vol] 15 U/L Normal 13-35 [facility] Comment on above: Order Comment: Speci men Type: BLOOD SPECIMENOrdering Facility: [facility] Address: [address] [place] [address] Performed By: #### 2 4323-8 ####[facility] MILLTOWNCLIA [id number] [place] [address] [place] Bilirubin [Mass/Vol] 0.7 mg/dL Normal 0.2-1.3 [facility] Comment on above: Order Comment: Speci men Type: BLOOD SPECIMENOrdering Facility: [facility] Address: [address] [place] [address] Performed By: #### 2 4323-8 ####[facility] CENTERWNCLIA [id number] [place] [address] [place] Calcium [Mass/Vol] 9.2 mg/dL Normal 8.5-10.2 [facility] Comment on above: Order Comment: Speci men Type: BLOOD SPECIMENOrdering Facility: [facility] Address: [address] [place] [address] Performed By: #### 2 4323-8 ####[facility] CENTERWNCLIA [id number] [place] [address] [place] Chloride [Moles/Vol] 94 mmol/L Low 98-107 [facility] Comment on above: Order Comment: Speci men Type: BLOOD SPECIMENOrdering Facility: [facility] Address: [address] [place] [address] Performed By: #### 2 4323-8 ####[facility] MIAMINCLIA [id number] [place] [address] [place] CO2 [Moles/Vol] 22 mmol/L Normal 22-30 [facility] Comment on above: Order Comment: Speci men Type: BLOOD SPECIMENOrdering Facility: [facility] Address: [address] [place] [address] Performed By: #### 2 4323-8 ####[facility] [id number] [place] [address] [place] Creatinine [Mass/Vol] 0.60 mg/dL Normal 0.58-0.96 [facility] Comment on above: Order Comment: Speci men Type: BLOOD SPECIMENOrdering Facility: [facility] Address: [address] [place] [address] Performed By: #### 2 4323-8 ####[facility]INCSHRIN[facility]IL[facility] [id number] [place] [address] [place] eGFRcr SerPlBld CKD-EPI 2020 91 mL/min/1.73m??? Normal >=60 [facility] Comment on above: Order Comment: Speci men Type: BLOOD SPECIMENOrdering Facility: [facility] Address: [address] [place] [address] Result Comment: Amina mated Glomerular Filtration Rate (eGFR) is calculated using the 2020 CKD-EPI creatinine equation. This equation utilizes serum creatinine, sex, and age as parameters. The creatinine assay has traceable calibration to isotope dilution-mass spectrometry. Refer to KDIGO guidelines for clinical interpretation. In patients with unstable renal function, e.g. those with acute kidney injury, the eGFR may not accurately reflect actual GFR. Performed By: #### 2 4323-8 ####[facility] MIAMINCLIA [id number] [place] [address] [place] Glucose [Mass/Vol] 91 mg/dL Normal 74-99 [facility] Comment on above: Order Comment: Speci men Type: BLOOD SPECIMENOrdering Facility: [facility] Address: [address] [place] [address] Result Comment: The [place] Diabetes Association (ADA) provides guidance for cutoff values for fasting glucose and random glucose. The ADA defines fasting as no caloric intake for at least 8 hours. Fasting plasma glucose results between 100 to 125 mg/dL indicate increased risk for diabetes (prediabetes).Fasting plasma glucose results greater than or equal to 126 mg/dL meet the criteria for diagnosis of diabetes. In the absence of unequivocal hyperglycemia, results should be confirmed by repeat testing. In a patient with classic symptoms of hyperglycemia or hyperglycemic crisis, random plasma glucose results greater than or equal to 200 mg/dL meet the criteria for diagnosis of diabetes.Reference: Standards of Medical Care in Diabetes 2016, [place] Diabetes Association. Diabetes Care. 2016.39(Suppl 1). Performed By: #### 2 4323-8 ####[facility] [id number] [place] [address] [place] Potassium [Moles/Vol] 4.1 mmol/L Normal 3.7-5.1 [facility] Comment on above: Order Comment: Speci men Type: BLOOD SPECIMENOrdering Facility: [facility] Address: [address] [place] [address] Performed By: #### 2 4323-8 ####[facility] [id number] [place] [address] [place] Protein [Mass/Vol] 6.7 g/dL Normal 6.3-8.0 [facility] Comment on above: Order Comment: Speci men Type: BLOOD SPECIMENOrdering Facility: [facility] Address: [address] [place] [address] Performed By: #### 2 4323-8 ####[facility] [id number] [place] [address] [place] Sodium [Moles/Vol] 129 mmol/L Low 136-144 [facility] Comment on above: Order Comment: Speci men Type: BLOOD SPECIMENOrdering Facility: [facility] Address: [address] [place] [address] Performed By: #### 2 4323-8 ####[facility] HOSPITALJUANITA DYEWNCLIA [id number] [place] [address] [place] Urea nitrogen [Mass/Vol] 14 mg/dL Normal 7-21 [facility] Comment on above: Order Comment: Speci men Type: BLOOD SPECIMENOrdering Facility: [facility] Address: [address] [place] [address] Performed By: #### 2 4323-8 ####[facility] DAYTONLI [id number] [place] [id number] [place] CNPNon 02-08-2025 CNPN Normal [facility] CBC W Auto Differential pane l (Bld)on 02-06-2025 Basophils (Bld) [#/Vol] 0.07 10*3/uL [facility]F [facility] Basophils/100 WBC (Bld) 0.9 % [facility] Differential cell count method Nom (Bld) Auto [facility] Eosinophils (Bld) [#/Vol] 0.07 10*3/uL [facility]ENTERF [facility] Eosinophils/100 WBC (Bld) 0.9 % [facility] Erythrocyte distribution width (RBC) [Ratio] 15.4 % High 11.5 - 15.0 % [facility] Hematocrit (Bld) [Volume fraction] 34.0 % Low 36.0 - 46.0 % [facility] Hemoglobin (Bld) [Mass/Vol] 11.5 g/dL 11.5 - 15.5 g/dL [facility] Immature granulocytes (Bld) [#/Vol] NINF [facility] Immature granulocytes/100 WBC (Bld) 0.3 % [facility] Interpretation and review of laboratory results Abnormal [facility] Lymphocytes (Bld) [#/Vol] 1.43 10*3/uL [facility] Lymphocytes/100 WBC (Bld) 18.3 % [facility] MCH (RBC) [Entitic mass] 29.4 pg 26.0 - 34.0 pg [facility] MCHC (RBC) [Mass/Vol] 33.8 g/dL 30.5 - 36.0 g/dL [facility] MCV (RBC) [Entitic vol] 87.0 fL 80.0 - 100.0 fL [facility] Monocytes (Bld) [#/Vol] 0.43 10*3/uL NINF [facility] Monocytes/100 WBC (Bld) 5.5 % [facility] Neutrophils (Bld) [#/Vol] 5.78 10*3/uL [facility] Neutrophils/100 WBC (Bld) 74.1 % [facility] Nucleated RBC (Bld) [#/Vol] NINF [facility] Nucleated RBC/100 WBC (Bld) [Ratio] 0.0 % /100 WBC [facility] Platelet mean volume (Bld) [Entitic vol] 9.0 fL 9.0 - 12.7 fL [facility] Platelets (Bld) [#/Vol] 363 10*3/uL [facility] RBC (Bld) [#/Vol] 3.91 10*6/uL 3.90 - 5.20 m/uL [facility] WBC (Bld) [#/Vol] 7.80 10*3/uL [facility] Basophils (Bld) [#/Vol] 0.07 10*3/uL Normal <0.11 [facility] Comment on above: Order Comment: Speci men Type: BLOOD SPECIMENOrdering Facility: [facility] Address: [address] [place] [address] Performed By: #### 5 7021-8 ####[facility] [id number] [place] [address] [place] Basophils/100 WBC (Bld) 0.9 % Normal [facility] Comment on above: Order Comment: Speci men Type: BLOOD SPECIMENOrdering Facility: [facility] Address: [address] [place] [address] Performed By: #### 5 7021-8 ####[facility] [id number] [place] [address] [place] Differential cell count method Nom (Bld) Auto Normal [facility] Comment on above: Order Comment: Speci men Type: BLOOD SPECIMENOrdering Facility: [facility] Address: [address] [place] [address] Performed By: #### 5 7021-8 ####[facility] CENTERWNELIA [id number] [place] [address] [place] Eosinophils (Bld) [#/Vol] 0.07 10*3/uL Normal <0.46 [facility] Comment on above: Order Comment: Speci men Type: BLOOD SPECIMENOrdering Facility: [facility] Address: [address] [place] [address] Performed By: #### 5 7021-8 ####[facility] DAYTONLIA [id number] [place] [address] [place] Eosinophils/100 WBC (Bld) 0.9 % Normal [facility] Comment on above: Order Comment: Speci men Type: BLOOD SPECIMENOrdering Facility: [facility] Address: [address] [place] [address] Performed By: #### 5 7021-8 ####[facility] DAYTONLIA [id number] [place] [address] [place] Erythrocyte distribution width (RBC) [Ratio] 15.4 % High 11.5-15.0 [facility] Comment on above: Order Comment: Speci men Type: BLOOD SPECIMENOrdering Facility: [facility] Address: [address] [place] [address] Performed By: #### 5 7021-8 ####[facility] DAYTONLIA [id number] [place] [address] [place] Hematocrit (Bld) [Volume fraction] 34.0 % Low 36.0-46.0 [facility] Comment on above: Order Comment: Speci men Type: BLOOD SPECIMENOrdering Facility: [facility] Address: [address] [place] [address] Performed By: #### 5 7021-8 ####[facility]TONLI [id number] [place] [address] [place] Hemoglobin (Bld) [Mass/Vol] 11.5 g/dL Normal 11.5-15.5 [facility] Comment on above: Order Comment: Speci men Type: BLOOD SPECIMENOrdering Facility: [facility] Address: [address] [place] [address] Performed By: #### 5 7021-8 ####[facility] CENTERWNELIA [id number] [place] [address] [place] Immature granulocytes (Bld) [#/Vol] 10*3/uL Normal <0.10 [facility] Comment on above: Order Comment: Speci men Type: BLOOD SPECIMENOrdering Facility: [facility] Address: [address] [place] [address] Performed By: #### 5 7021-8 ####[facility]ENTERA [id number] [place] [address] [place] Immature granulocytes/100 WBC (Bld) 0.3 % Normal [facility] Comment on above: Order Comment: Speci men Type: BLOOD SPECIMENOrdering Facility: [facility] Address: [address] [place] [address] Performed By: #### 5 7021-8 ####[facility] DAYTONLIA [id number] [place] [address] [place] Lymphocytes (Bld) [#/Vol] 1.43 10*3/uL Normal 1.00-4.00 [facility] Comment on above: Order Comment: Speci men Type: BLOOD SPECIMENOrdering Facility: [facility] Address: [address] [place] [address] Performed By: #### 5 7021-8 ####[facility] MIAMINCLIA [id number] [place] [address] [place] Lymphocytes/100 WBC (Bld) 18.3 % Normal [facility] Comment on above: Order Comment: Speci men Type: BLOOD SPECIMENOrdering Facility: [facility] Address: [address] [place], [place] [address] Performed By: #### 5 7021-8 ####[facility] HARDIKCHLOE [id number] [place] [address] [place] MCH (RBC) [Entitic mass] 29.4 pg Normal 26.0-34.0 [facility] Comment on above: Order Comment: Speci men Type: BLOOD SPECIMENOrdering Facility: [facility] Address: [address] [place], [place] [address] Performed By: #### 5 7021-8 ####[facility] MIAMINCNENA [id number] [place] [address] [place] MCHC (RBC) [Mass/Vol] 33.8 g/dL Normal 30.5-36.0 [facility] Comment on above: Order Comment: Speci men Type: BLOOD SPECIMENOrdering Facility: [facility] Address: [address] [place], [place] [address] Performed By: #### 5 7021-8 ####[facility] MIAMINCA [id number] [place] [address] [place] MCV (RBC) [Entitic vol] 87.0 fL Normal 80.0-100.0 [facility] Comment on above: Order Comment: Speci men Type: BLOOD SPECIMENOrdering Facility: [facility] Address: [address] [place], [place] [address] Performed By: #### 5 7021-8 ####[facility]ENTERA [id number] [place] [address] [place] Monocytes (Bld) [#/Vol] 0.43 10*3/uL Normal <0.87 [facility] Comment on above: Order Comment: Speci men Type: BLOOD SPECIMENOrdering Facility: [facility] Address: [address] [place], [place] [address] Performed By: #### 5 7021-8 ####[facility] MILLWNCLIA [id number] [place] [address] [place] Monocytes/100 WBC (Bld) 5.5 % Normal [facility] Comment on above: Order Comment: Speci men Type: BLOOD SPECIMENOrdering Facility: [facility] Address: [address] [place] [address] Performed By: #### 5 7021-8 ####[facility] MIAMINCLIA [id number] [place] [address] [place] Neutrophils (Bld) [#/Vol] 5.78 10*3/uL Normal 1.45-7.50 [facility] Comment on above: Order Comment: Speci men Type: BLOOD SPECIMENOrdering Facility: [facility] Address: [address] [place] [address] Performed By: #### 5 7021-8 ####[facility] DAYTONLIA [id number] [place] [address] [place] Neutrophils/100 WBC (Bld) 74.1 % Normal [facility] Comment on above: Order Comment: Speci men Type: BLOOD SPECIMENOrdering Facility: [facility] Address: [address] [place] [address] Performed By: #### 5 7021-8 ####[facility] DAYTONLIA [id number] [place] [address] [place] Nucleated RBC (Bld) [#/Vol] 10*3/uL Normal <0.01 [facility] Comment on above: Order Comment: Speci men Type: BLOOD SPECIMENOrdering Facility: [facility] Address: [address] [place] [address] Performed By: #### 5 7021-8 ####[facility] MIAMINCLIA [id number] [place] [id number] [place] Nucleated RBC/100 WBC (Bld) [Ratio] 0.0 /100 WBC Normal [facility] Comment on above: Order Comment: Speci men Type: BLOOD SPECIMENOrdering Facility: [facility] Address: [address] [place] [address] Performed By: #### 5 7021-8 ####[facility] MIAMINCLORENZOA [id number] [place] [address] [place] Platelet mean volume (Bld) [Entitic vol] 9.0 fL Normal 9.0-12.7 [facility] Comment on above: Order Comment: Speci men Type: BLOOD SPECIMENOrdering Facility: [facility] Address: [address] [place] [address] Performed By: #### 5 7021-8 ####[facility] MIAMINCA [id number] [place] [address] [place] Platelets (Bld) [#/Vol] 363 10*3/uL Normal 150-400 [facility] Comment on above: Order Comment: Speci men Type: BLOOD SPECIMENOrdering Facility: [facility] Address: [address] [place] [address] Performed By: #### 5 7021-8 ####[facility] MIAMINCLIA [id number] [place] [address] [place] RBC (Bld) [#/Vol] 3.91 10*6/uL Normal 3.90-5.20 [facility] Comment on above: Order Comment: Speci men Type: BLOOD SPECIMENOrdering Facility: [facility] Address: [address] [place] [address] Performed By: #### 5 7021-8 ####[facility] MIAMINCLIA [id number] [place] [address] [place] WBC (Bld) [#/Vol] 7.80 10*3/uL Normal 3.70-11.00 [facility] Comment on above: Order Comment: Speci men Type: BLOOD SPECIMENOrdering Facility: [facility] Address: [address] [place] [address] Performed By: #### 5 7021-8 ####[facility] JOI DYEGREENE COUNTY GENERAL HOSPITALLIA [id number] [place] [id number] [place] [facility] [place] Comprehensive metabolic 2000 panelOrdered By: Zaida Rice on 02-06-2025 Albumin [Mass/Vol] 4.2 g/dL 3.9 - 4.9 g/dL [facility] ALP [Catalytic activity/Vol] 80 U/L 34 - 123 U/L [facility] ALT [Catalytic activity/Vol] 13 U/L 7 - 38 U/L [facility] Anion gap [Moles/Vol] 9 mmol/L 8 - 15 mmol/L [facility] AST [Catalytic activity/Vol] 15 U/L 13 - 35 U/L [facility] Bilirubin [Mass/Vol] 0.7 mg/dL 0.2 - 1 .3 mg/dL [facility] Calcium [Mass/Vol] 9.3 mg/dL 8.5 - 10. 2 mg/dL [facility] Chloride [Moles/Vol] 98 mmol/L 98 - 10 7 mmol/L [facility] CO2 [Moles/Vol] 24 mmol/L 22 - 30 mmol/L [facility] Creatinine [Mass/Vol] 0.69 mg/dL 0.58 - 0.96 mg/dL [facility] GFR/1.73 sq M.predicted among non-blacks MDRD (S/P/Bld) [Vol rate/Area] 88 mL/min/{1.73_m2} - PINF [facility] Comment on above: Estimated Glomerular Filtration Rate (eGFR) is calculated using the 2020 CKD-EPI creatinine equation. This equation utilizes serum creatinine, sex, and age as parameters. The creatinine assay has traceable calibration to isotope dilution-mass spectrometry. Refer to KDIGO guidelines for clinical interpretation. In patients with unstable renal function, e.g. those with acute kidney injury, the eGFR may not accurately reflect actual GFR. Glucose [Mass/Vol] 117 mg/dL High 74 - 99 mg/dL [facility] Comment on above: The [place] Diabete [place] Association (ADA) provides guidance for cutoff values for fasting glucose and random glucose. The ADA defines fasting as no caloric intake for at least 8 hours. Fasting plasma glucose results between 100 to 125 mg/dL indicate increased risk for diabetes (prediabetes). Fasting plasma glucose results greater than or equal to 126 mg/dL meet the criteria for diagnosis of diabetes. In the absence of unequivocal hyperglycemia, results should be confirmed by repeat testing. In a patient with classic symptoms of hyperglycemia or hyperglycemic crisis, random plasma glucose results greater than or equal to 200 mg/dL meet the criteria for diagnosis of diabetes. Reference: Standards of Medical Care in Diabetes 2016, [place] [employer] Association. Diabetes Care. 2016.39(Suppl 1). Interpretation and review of laboratory results Abnormal [facility] Potassium [Moles/Vol] 4.1 mmol/L 3.7 - 5.1 mmol/L [facility] Protein [Mass/Vol] 6.7 g/dL 6.3 - 8.0 g/dL [facility] Sodium [Moles/Vol] 131 mmol/L Low 136 - 144 mmol/L [facility] Urea nitrogen [Mass/Vol] 15 mg/dL 7 - 21 mg/dL [facility] Comprehensive metabolic 2000 panelon 02-06-2025 Albumin [Mass/Vol] 4.2 g/dL Normal 3.9-4.9 [facility] Comment on above: Order Comment: Kimmyi men Type: BLOOD SPECIMENOrdering Facility: [facility] Address: [address] [place] [address] Performed By: #### 2 4323-8 ####[facility] [id number] [place] [address] [place] ALP [Catalytic activity/Vol] 80 U/L Normal 34-123 [facility] Comment on above: Order Comment: Speci men Type: BLOOD SPECIMENOrdering Facility: [facility] Address: [address] [place] [address] Performed By: #### 2 4323-8 ####[facility] [id number] [place] [address] [place] ALT [Catalytic activity/Vol] 13 U/L Normal 7-38 [facility] Comment on above: Order Comment: Speci men Type: BLOOD SPECIMENOrdering Facility: [facility] Address: [address] [place] [address] Performed By: #### 2 4323-8 ####[facility]ITALTOWNCLIA [id number] [place] [address] [place] Anion gap [Moles/Vol] 9 mmol/L Normal 8-15 [facility] Comment on above: Order Comment: Speci men Type: BLOOD SPECIMENOrdering Facility: [facility] Address: [address] [place] [address] Performed By: #### 2 4323-8 ####[facility]ENTERWNCLIA [id number] [place] [address] [place] AST [Catalytic activity/Vol] 15 U/L Normal 13-35 [facility] Comment on above: Order Comment: Speci men Type: BLOOD SPECIMENOrdering Facility: [facility] Address: [address] [place] [address] Performed By: #### 2 4323-8 ####[facility] DAYTONLIA [id number] [place] [address] [place] Bilirubin [Mass/Vol] 0.7 mg/dL Normal 0.2-1.3 [facility] Comment on above: Order Comment: Speci men Type: BLOOD SPECIMENOrdering Facility: [facility] Address: [address] [place] [address] Performed By: #### 2 4323-8 ####[facility] DAYTONLIA [id number] [place] [address] [place] Calcium [Mass/Vol] 9.3 mg/dL Normal 8.5-10.2 [facility] Comment on above: Order Comment: Speci men Type: BLOOD SPECIMENOrdering Facility: [facility] Address: [address] [place] [address] Performed By: #### 2 4323-8 ####[facility] MILLWNCLIA [id number] [place] [address] [place] Chloride [Moles/Vol] 98 mmol/L Normal 98-107 [facility] Comment on above: Order Comment: Speci men Type: BLOOD SPECIMENOrdering Facility: [facility] Address: [address] [place] [address] Performed By: #### 2 4323-8 ####[facility] DAYTONLIA [id number] [place] [address] [place] CO2 [Moles/Vol] 24 mmol/L Normal 22-30 [facility] Comment on above: Order Comment: Speci men Type: BLOOD SPECIMENOrdering Facility: [facility] Address: [address] [place] [address] Performed By: #### 2 4323-8 ####[facility] DAYTONLIA [id number] [place] [address] [place] Creatinine [Mass/Vol] 0.69 mg/dL Normal 0.58-0.96 [facility] Comment on above: Order Comment: Speci men Type: BLOOD SPECIMENOrdering Facility: [facility] Address: [address] [place] [address] Performed By: #### 2 4323-8 ####[facility]ENTERA [id number] [place] [address] [place] eGFRcr SerPlBld CKD-EPI 2020 88 mL/min/1.73m??? Normal >=60 [facility] Comment on above: Order Comment: Speci men Type: BLOOD SPECIMENOrdering Facility: [facility] Address: [address] [place] [address] Result Comment: Amina mated Glomerular Filtration Rate (eGFR) is calculated using the 2020 CKD-EPI creatinine equation. This equation utilizes serum creatinine, sex, and age as parameters. The creatinine assay has traceable calibration to isotope dilution-mass spectrometry. Refer to KDIGO guidelines for clinical interpretation. In patients with unstable renal function, e.g. those with acute kidney injury, the eGFR may not accurately reflect actual GFR. Performed By: #### 2 4323-8 ####[facility] CENTERWJENNIFERLIA [id number] [place] [address] [place] Glucose [Mass/Vol] 117 mg/dL High 74-99 [facility] Comment on above: Order Comment: Speclissette men Type: BLOOD SPECIMENOrdering Facility: [facility] Address: [address] [place] [address] Result Comment: The [place] Diabetes Association (ADA) provides guidance for cutoff values for fasting glucose and random glucose. The ADA defines fasting as no caloric intake for at least 8 hours. Fasting plasma glucose results between 100 to 125 mg/dL indicate increased risk for diabetes (prediabetes).Fasting plasma glucose results greater than or equal to 126 mg/dL meet the criteria for diagnosis of diabetes. In the absence of unequivocal hyperglycemia, results should be confirmed by repeat testing. In a patient with classic symptoms of hyperglycemia or hyperglycemic crisis, random plasma glucose results greater than or equal to 200 mg/dL meet the criteria for diagnosis of diabetes.Reference: Standards of Medical Care in Diabetes 2016, [place] [employer] Association. Diabetes Care. 2016.39(Suppl 1). Performed By: #### 2 4323-8 ####[facility] MIAMINCLIA [id number] [place] [address] [place] Potassium [Moles/Vol] 4.1 mmol/L Normal 3.7-5.1 [facility] Comment on above: Order Comment: Katrina men Type: BLOOD SPECIMENOrdering Facility: [facility] Address: [address] [place] [address] Performed By: #### 2 4323-8 ####[facility] CENTERWNCLIA [id number] [place] [address] [place] Protein [Mass/Vol] 6.7 g/dL Normal 6.3-8.0 [facility] Comment on above: Order Comment: Speci men Type: BLOOD SPECIMENOrdering Facility: [facility] Address: [address] [place] [address] Performed By: #### 2 4323-8 ####[facility] [id number] [place] [address] [place] Sodium [Moles/Vol] 131 mmol/L Low 136-144 [facility] Comment on above: Order Comment: Speci men Type: BLOOD SPECIMENOrdering Facility: [facility] Address: [address] [place] [address] Performed By: #### 2 4323-8 ####[facility] [id number] [place] [address] [place] Urea nitrogen [Mass/Vol] 15 mg/dL Normal 7-21 [facility] Comment on above: Order Comment: Speci men Type: BLOOD SPECIMENOrdering Facility: [facility] Address: [address] [place] [address] Performed By: #### 2 4323-8 ####[facility] [id number] [place] [address] [place] CBC W Auto Differential pane l (Bld)on 01-31-2025 Basophils (Bld) [#/Vol] 0.09 10*3/uL Normal <0.11 [facility] Comment on above: Order Comment: Speci men Type: BLOOD SPECIMENOrdering Facility: [facility] Address: [address] [place] [address] Performed By: #### 5 7021-8 ####[facility] [id number] [place] [address] [place] Basophils/100 WBC (Bld) 1.4 % Normal [facility] Comment on above: Order Comment: Speci men Type: BLOOD SPECIMENOrdering Facility: [facility] Address: [address] [place] [address] Performed By: #### 5 7021-8 ####[facility] HARDIKKALONANCLORENZOA [id number] [place] [address] [place] Differential cell count method Nom (Bld) Auto Normal [facility] Comment on above: Order Comment: Speci men Type: BLOOD SPECIMENOrdering Facility: [facility] Address: [address] [place] [address] Performed By: #### 5 7021-8 ####[facility] MIAMINCSHRINERS HOSPITALS FOR CHILDREN [id number] [place] [address] [place] Eosinophils (Bld) [#/Vol] 0.07 10*3/uL Normal <0.46 [facility] Comment on above: Order Comment: Speci men Type: BLOOD SPECIMENOrdering Facility: [facility] Address: [address] [place] [address] Performed By: #### 5 7021-8 ####[facility] DAYTONLIA [id number] [place] [address] [place] Eosinophils/100 WBC (Bld) 1.1 % Normal [facility] Comment on above: Order Comment: Speci men Type: BLOOD SPECIMENOrdering Facility: [facility] Address: [address] [place] [address] Performed By: #### 5 7021-8 ####[facility] DAYTONLIA [id number] [place] [address] [place] Erythrocyte distribution width (RBC) [Ratio] 15.5 % High 11.5-15.0 [facility] Comment on above: Order Comment: Speci men Type: BLOOD SPECIMENOrdering Facility: [facility] Address: [address] [place] [address] Performed By: #### 5 7021-8 ####[facility] MIAMINCLIA [id number] [place] [address] [place] Hematocrit (Bld) [Volume fraction] 36.2 % Normal 36.0-46.0 [facility] Comment on above: Order Comment: Speci men Type: BLOOD SPECIMENOrdering Facility: [facility] Address: [address] [place] [address] Performed By: #### 5 7021-8 ####[facility] MIAMIRAFFY [id number] [place] [address] [place] Hemoglobin (Bld) [Mass/Vol] 12.2 g/dL Normal 11.5-15.5 [facility] Comment on above: Order Comment: Speci men Type: BLOOD SPECIMENOrdering Facility: [facility] Address: [address] [place] [address] Performed By: #### 5 7021-8 ####[facility] MIAMIRAFFY [id number] [place] [address] [place] Immature granulocytes (Bld) [#/Vol] 10*3/uL Normal <0.10 [facility] Comment on above: Order Comment: Speci men Type: BLOOD SPECIMENOrdering Facility: [facility] Address: [address] [place] [address] Performed By: #### 5 7021-8 ####[facility] MIAMIMAYNORA [id number] [place] [address] [place] Immature granulocytes/100 WBC (Bld) 0.3 % Normal [facility] Comment on above: Order Comment: Speci men Type: BLOOD SPECIMENOrdering Facility: [facility] Address: [address] [place] [address] Performed By: #### 5 7021-8 ####[facility] MIAMINCLIA [id number] [place] [address] [place] Lymphocytes (Bld) [#/Vol] 1.45 10*3/uL Normal 1.00-4.00 [facility] Comment on above: Order Comment: Speci men Type: BLOOD SPECIMENOrdering Facility: [facility] Address: [address] [place] [address] Performed By: #### 5 7021-8 ####[facility] JULIETTENCNENA [id number] [place] [address] [place] Lymphocytes/100 WBC (Bld) 22.1 % Normal [facility] Comment on above: Order Comment: Speci men Type: BLOOD SPECIMENOrdering Facility: [facility] Address: [address] [place] [address] Performed By: #### 5 7021-8 ####[facility] MIAMINCNENA [id number] [place] [address] [place] MCH (RBC) [Entitic mass] 29.3 pg Normal 26.0-34.0 [facility] Comment on above: Order Comment: Speci men Type: BLOOD SPECIMENOrdering Facility: [facility] Address: [address] [place] [address] Performed By: #### 5 7021-8 ####[facility] MIAMINCLIA [id number] [place] [address] [place] MCHC (RBC) [Mass/Vol] 33.7 g/dL Normal 30.5-36.0 [facility] Comment on above: Order Comment: Speci men Type: BLOOD SPECIMENOrdering Facility: [facility] Address: [address] [place] [address] Performed By: #### 5 7021-8 ####[facility] MIAMINCLIA [id number] [place] [address] [place] MCV (RBC) [Entitic vol] 87.0 fL Normal 80.0-100.0 [facility] Comment on above: Order Comment: Speci men Type: BLOOD SPECIMENOrdering Facility: [facility] Address: [address] [place] [address] Performed By: #### 5 7021-8 ####[facility] MILLWNCLIA [id number] [place] [address] [place] Monocytes (Bld) [#/Vol] 0.40 10*3/uL Normal <0.87 [facility] Comment on above: Order Comment: Speci men Type: BLOOD SPECIMENOrdering Facility: [facility] Address: [address] [place] [address] Performed By: #### 5 7021-8 ####[facility] MIAMINCLIA [id number] [place] [address] [place] Monocytes/100 WBC (Bld) 6.1 % Normal [facility] Comment on above: Order Comment: Speci men Type: BLOOD SPECIMENOrdering Facility: [facility] Address: [address] [place] [address] Performed By: #### 5 7021-8 ####[facility] DAYTONLIA [id number] [place] [address] [place] Neutrophils (Bld) [#/Vol] 4.53 10*3/uL Normal 1.45-7.50 [facility] Comment on above: Order Comment: Speci men Type: BLOOD SPECIMENOrdering Facility: [facility] Address: [address] [place] [address] Performed By: #### 5 7021-8 ####[facility] MILLWNCLIA [id number] [place] [address] [place] Neutrophils/100 WBC (Bld) 69.0 % Normal [facility] Comment on above: Order Comment: Speci men Type: BLOOD SPECIMENOrdering Facility: [facility] Address: [address] [place] [address] Performed By: #### 5 7021-8 ####[facility] MIAMINCLIA [id number] [place] [id number] [place] Nucleated RBC (Bld) [#/Vol] 10*3/uL Normal <0.01 [facility] Comment on above: Order Comment: Speci men Type: BLOOD SPECIMENOrdering Facility: [facility] Address: [address] [place] [address] Performed By: #### 5 7021-8 ####[facility] MIAMINCNENA [id number] [place] [address] [place] Nucleated RBC/100 WBC (Bld) [Ratio] 0.0 /100 WBC Normal [facility] Comment on above: Order Comment: Speci men Type: BLOOD SPECIMENOrdering Facility: [facility] Address: [address] [place] [address] Performed By: #### 5 7021-8 ####[facility] MIAMINCJane [id number] [place] [address] [place] Platelet mean volume (Bld) [Entitic vol] 9.0 fL Normal 9.0-12.7 [facility] Comment on above: Order Comment: Speci men Type: BLOOD SPECIMENOrdering Facility: [facility] Address: [address] [place] [address] Performed By: #### 5 7021-8 ####[facility] MIAMINCLIA [id number] [place] [address] [place] Platelets (Bld) [#/Vol] 371 10*3/uL Normal 150-400 [facility] Comment on above: Order Comment: Speci men Type: BLOOD SPECIMENOrdering Facility: [facility] Address: [address] [place] [address] Performed By: #### 5 7021-8 ####[facility] MIAMINCLIA [id number] [place] [address] [place] RBC (Bld) [#/Vol] 4.16 10*6/uL Normal 3.90-5.20 [facility] Comment on above: Order Comment: Speci men Type: BLOOD SPECIMENOrdering Facility: [facility] Address: [address] [place] [address] Performed By: #### 5 7021-8 ####[facility] CENTERWNCLIA [id number] [place] [address] [place] WBC (Bld) [#/Vol] 6.56 10*3/uL Normal 3.70-11.00 [facility] Comment on above: Order Comment: Speci men Type: BLOOD SPECIMENOrdering Facility: [facility] Address: [address] [place] [address] Performed By: #### 5 7021-8 ####[facility] MIAMINCLIA [id number] [place] [address] [place] [facility] CRP [Mass/Vol] mg/L Normal <0.9 [facility] Comment on above: Order Comment: Speci men Type: BLOOD SPECIMENOrdering Facility: [facility] Address: [address] [place] [address] Performed By: #### 1 988-5 ####[facility] LABCLIA [id number] [place] [id number] [place] GLUCOSE, BLOOD (POC)on 01-28 Glucose [Mass/Vol] 93 mg/dL 74 - 99 mg/dL [facility] Comment on above: Location:[facility], [address] [place] [address], [facility] The Accu-Chek Inform II glucose meter has not been approved for testing on patients receiving intensive medical intervention or therapy and results from this point of care glucose test should not be used for patient management decisions in these cases. Inaccurate results may also occur from other interfering factors, such as N-acetylcysteine (blood concentrations of greater than 5mg/dL), galactose, extremes of hematocrit (<10 or >65), or high doses of ascorbic acid (vitamin C) greater than 3mg/dL. Consider alternate testing mechanisms (e.g. core lab, blood gas instrument) in the above situations. [facility] PET/CT SKULL-THIGH SUBQon 01-28-2025 NM PET/CT SKULL-THIGH SUBQ * * *Final Report* * * DATE OF EXAM: Jan 28 2025 1:27PM SURENDRA 0063 - OR PET/CT SKULL-THIGH SUBQ / PROCEDURE REASON: multiple diagnoses * * * * Physician Interpretation * * * * EXAMINATION: BODY FDG PET-CT CLINICAL HISTORY: 79-year-old female with history of metastatic left breast cancer.. EXAM CATEGORY: Subsequent treatment strategy. TECHNIQUE: Radiopharmaceutical was administered intravenously followed by PET imaging from the eyes to thighs. Free breathing, low dose CT of the same body region was acquired without IV contrast for attenuation correction and anatomic localization. Unenhanced imaging is limited for the evaluation of some pathology and the acquired CT was not designed to produce diagnostic CT scan quality. Physiologic/non-pathologic uptake in some body regions could confound or obscure some pathology. * CT Dose-Length Product (DLP): 319 mGy*cm * CT Dose Reduction Employed: Yes * Blood glucose: 93 mg/dL * Injection site: Right Forearm-Antecubital * Injected activity: 9.3 mCi * Uptake Time: 58 minutes * Radiopharmaceutical: T28-Ionusqilzsfuiwtyjs (FDG) COMPARISON: 07/11/2024 CORRELATION: MRI brain abdomen 01/15/2025, MRI spine 10/04/2024 RESULT: REFERENCES: FDG uptake is used as a surrogate marker for glucose metabolism. All reported standardized uptake values represent maximum SUV (SUVmax) per body weight, unless otherwise specified. SUV reference values, as follows: * Blood Pool (Descending Aorta): SUVmax 2.1 previously 2.0 * Background Liver: SUVmax 3.1 previously 3.1; SUVmean 2.5 previously 2.3 Localizer Images: No additional findings. HEAD AND NECK: Head: No radiotracer avid lesion or mass effect in the imaged intracranial compartment. Aerodigestive Tract: No radiotracer avid lesion. Lymph Nodes: No radiotracer avid lymphadenopathy. Neck Soft Tissues: No radiotracer avid thyroid nodule. CHEST: Lungs and Pleura: No radiotracer avid mass, nodule, or consolidation. No pleural effusion. Chronic bilateral lung subpleural reticular changes. Lymph Nodes: No radiotracer avid lymphadenopathy. Mediastinum: No radiotracer avid mass. Cardiovascular: Blood pool activity. No pericardial effusion. Normal heart size. Coronary artery calcifications. Chest Wall: No radiotracer avid soft tissue lesion. Left mastectomy with no abnormal uptake in surgical bed to suggest local recurrence. Fluid collection along surgical bed slightly decreased in size compared to prior.. Right chest wall Mediport with tip in the distal SVC. ABDOMEN AND PELVIS: Hepatobiliary: No radiotracer avid lesion. No measurable mass. Spleen: No radiotracer avid lesion. No splenomegaly. Pancreas: No radiotracer avid lesion. Adrenals: No radiotracer avid nodule. Urinary Tract: Physiologic radiotracer excretion in the renal collecting systems and urinary bladder. No hydronephrosis. GI Tract: No radiotracer avid lesion. No bowel dilation. Peritoneum: No radiotracer avid lesion. No ascites. Lymph Nodes: No radiotracer avid lymphadenopathy. Vasculature: Blood pool activity. Abdominal aortic atherosclerotic calcifications without aneurysm. Pelvic Organs: No radiotracer avid lesion. MUSCULOSKELETAL: Bones: No radiotracer avid lesion. Degenerative changes.. Soft Tissues: No radiotracer avid lesion. IMPRESSION Since 07/11/2024, PRIMARY DISEASE SITE: * Status post left mastectomy with no abnormal uptake suggest local recurrence. * Left chest wall seroma slightly decreased in size. LATASHA DISEASE: * No metabolically active regional lymphadenopathy. METASTATIC DISEASE: * No metabolically active distant metastases. ADDITIONAL FINDINGS: * Chronic changes, as described. Please refer to the synoptic report for details. Home Care Liaison: YOLIS Transcribe Date/Time: Jan 28 2025 2:14P Dictated by : LINK JACKSON MD This examination was interpreted and the report reviewed and electronically signed by: LINK JACKSON MD on Jan 28 2025 2:36PM EST [id number] [facility] PET+CT Guidance for localiza tion of tumor of Skull base to mid-thigh-- W [id number] Alisha 01-28-2025 * * *Final Report* * * DATE OF EXAM: Jan 28 2025 1:27PM [facility] 0063 - NM PET/CT SKULL-THIGH SUBQ / PROCEDURE REASON: multiple diagnoses * * * * Physician Interpretation * * * * EXAMINATION: BODY FDG PET-CT CLINICAL HISTORY: 79-year-old female with history of metastatic left breast cancer.. EXAM CATEGORY: Subsequent treatment strategy. TECHNIQUE: Radiopharmaceutical was administered intravenously followed by PET imaging from the eyes to thighs. Free breathing, low dose CT of the same body region was acquired without IV contrast for attenuation correction and anatomic localization. Unenhanced imaging is limited for the evaluation of some pathology and the acquired CT was not designed to produce diagnostic CT scan quality. Physiologic/non-pathologic uptake in some body regions could confound or obscure some pathology. * CT Dose-Length Product (DLP): 319 mGy*cm * CT Dose Reduction Employed: Yes * Blood glucose: 93 mg/dL * Injection site: Right Forearm-Antecubital * Injected activity: 9.3 mCi * Uptake Time: 58 minutes * Radiopharmaceutical: D95-Uydgffbjtrftxmabru (FDG) COMPARISON: 07/11/2024 CORRELATION: MRI brain abdomen 01/15/2025, MRI spine 10/04/2024 RESULT: REFERENCES: FDG uptake is used as a surrogate marker for glucose metabolism. All reported standardized uptake values represent maximum SUV (SUVmax) per body weight, unless otherwise specified. SUV reference values, as follows: * Blood Pool (Descending Aorta): SUVmax 2.1 previously 2.0 * Background Liver: SUVmax 3.1 previously 3.1; SUVmean 2.5 previously 2.3 Localizer Images: No additional findings. HEAD AND NECK: Head: No radiotracer avid lesion or mass effect in the imaged intracranial compartment. Aerodigestive Tract: No radiotracer avid lesion. Lymph Nodes: No radiotracer avid lymphadenopathy. Neck Soft Tissues: No radiotracer avid thyroid nodule. CHEST: Lungs & Pleura: No radiotracer avid mass, nodule, or consolidation. No pleural effusion. Chronic bilateral lung subpleural reticular changes. Lymph Nodes: No radiotracer avid lymphadenopathy. Mediastinum: No radiotracer avid mass. Cardiovascular: Blood pool activity. No pericardial effusion. Normal heart size. Coronary artery calcifications. Chest Wall: No radiotracer avid soft tissue lesion. Left mastectomy with no abnormal uptake in surgical bed to suggest local recurrence. Fluid collection along surgical bed slightly decreased in size compared to prior.. Right chest wall Mediport with tip in the distal SVC. ABDOMEN AND PELVIS: Hepatobiliary: No radiotracer avid lesion. No measurable mass. Spleen: No radiotracer avid lesion. No splenomegaly. Pancreas: No radiotracer avid lesion. Adrenals: No radiotracer avid nodule. Urinary Tract: Physiologic radiotracer excretion in the renal collecting systems and urinary bladder. No hydronephrosis. GI Tract: No radiotracer avid lesion. No bowel dilation. Peritoneum: No radiotracer avid lesion. No ascites. Lymph Nodes: No radiotracer avid lymphadenopathy. Vasculature: Blood pool activity. Abdominal aortic atherosclerotic calcifications without aneurysm. Pelvic Organs: No radiotracer avid lesion. MUSCULOSKELETAL: Bones: No radiotracer avid lesion. Degenerative changes.. Soft Tissues: No radiotracer avid lesion. IMPRESSION Since 07/11/2024, PRIMARY DISEASE SITE: * Status post left mastectomy with no abnormal uptake suggest local recurrence. * Left chest wall seroma slightly decreased in size. LATASHA DISEASE: * No metabolically active regional lymphadenopathy. METASTATIC DISEASE: * No metabolically active distant metastases. ADDITIONAL FINDINGS: * Chronic changes, as described. Please refer to the synoptic report for details. [facility] L[facility] Transcribe Date/Time: Jan 28 2025 2:14P Dictated by : LINK JACKSON MD This examination was interpreted and the report reviewed and electronically signed by: LINK JACKSON MD on Jan 28 2025 2:36PM [facility] RADIOLOGY Provider, [facility]25 * * *Final Report* * * DATE OF EXAM: Jan 28 2025 1:27PM [facility] 0063 - NM PET/CT SKULL-THIGH SUBQ / PROCEDURE REASON: multiple diagnoses * * * * Physician Interpretation * * * * EXAMINATION: BODY FDG PET-CT CLINICAL HISTORY: 79-year-old female with history of metastatic left breast cancer.. EXAM CATEGORY: Subsequent treatment strategy. TECHNIQUE: Radiopharmaceutical was administered intravenously followed by PET imaging from the eyes to thighs. Free breathing, low dose CT of the same body region was acquired without IV contrast for attenuation correction and anatomic localization. Unenhanced imaging is limited for the evaluation of some pathology and the acquired CT was not designed to produce diagnostic CT scan quality. Physiologic/non-pathologic uptake in some body regions could confound or obscure some pathology. * CT Dose-Length Product (DLP): 319 mGy*cm * CT Dose Reduction Employed: Yes * Blood glucose: 93 mg/dL * Injection site: Right Forearm-Antecubital * Injected activity: 9.3 mCi * Uptake Time: 58 minutes * Radiopharmaceutical: Z21-Ndlrnjwqewloltuauk (FDG) COMPARISON: 07/11/2024 CORRELATION: MRI brain abdomen 01/15/2025, MRI spine 10/04/2024 RESULT: REFERENCES: FDG uptake is used as a surrogate marker for glucose metabolism. All reported standardized uptake values represent maximum SUV (SUVmax) per body weight, unless otherwise specified. SUV reference values, as follows: * Blood Pool (Descending Aorta): SUVmax 2.1 previously 2.0 * Background Liver: SUVmax 3.1 previously 3.1; SUVmean 2.5 previously 2.3 Localizer Images: No additional findings. HEAD AND NECK: Head: No radiotracer avid lesion or mass effect in the imaged intracranial compartment. Aerodigestive Tract: No radiotracer avid lesion. Lymph Nodes: No radiotracer avid lymphadenopathy. Neck Soft Tissues: No radiotracer avid thyroid nodule. CHEST: Lungs & Pleura: No radiotracer avid mass, nodule, or consolidation. No pleural effusion. Chronic bilateral lung subpleural reticular changes. Lymph Nodes: No radiotracer avid lymphadenopathy. Mediastinum: No radiotracer avid mass. Cardiovascular: Blood pool activity. No pericardial effusion. Normal heart size. Coronary artery calcifications. Chest Wall: No radiotracer avid soft tissue lesion. Left mastectomy with no abnormal uptake in surgical bed to suggest local recurrence. Fluid collection along surgical bed slightly decreased in size compared to prior.. Right chest wall Mediport with tip in the distal SVC. ABDOMEN AND PELVIS: Hepatobiliary: No radiotracer avid lesion. No measurable mass. Spleen: No radiotracer avid lesion. No splenomegaly. Pancreas: No radiotracer avid lesion. Adrenals: No radiotracer avid nodule. Urinary Tract: Physiologic radiotracer excretion in the renal collecting systems and urinary bladder. No hydronephrosis. GI Tract: No radiotracer avid lesion. No bowel dilation. Peritoneum: No radiotracer avid lesion. No ascites. Lymph Nodes: No radiotracer avid lymphadenopathy. Vasculature: Blood pool activity. Abdominal aortic atherosclerotic calcifications without aneurysm. Pelvic Organs: No radiotracer avid lesion. MUSCULOSKELETAL: Bones: No radiotracer avid lesion. Degenerative changes.. Soft Tissues: No radiotracer avid lesion. IMPRESSION Since 07/11/2024, PRIMARY DISEASE SITE: * Status post left mastectomy with no abnormal uptake suggest local recurrence. * Left chest wall seroma slightly decreased in size. LATASHA DISEASE: * No metabolically active regional lymphadenopathy. METASTATIC DISEASE: * No metabolically active distant metastases. ADDITIONAL FINDINGS: * Chronic changes, as described. Please refer to the synoptic report for details. Home Care Liaison: [facility] Transcribe Date/Time: Jan 28 2025 2:14P Dictated by : LINK JACKSON MD This examination was interpreted and the report reviewed and electronically signed by: LINK JACKSON MD on Jan 28 2025 2:36PM EST [facility] Radiology Study observation (narrative) [facility] PET+CT Guidance for localiza tion of tumor of Skull base to mid-thigh-- W 18F-FDG IVOrdered By: Ccf Provider on 01-28-2025 [facility] CNOVon 01-23-2025 CNOV Normal [facility] CNOVSPon 01-16-2025 CNOVSP Normal [facility] CBC W Auto Differential pane l (Bld)on 01-15-2025 Basophils (Bld) [#/Vol] 0.09 10*3/uL [facility] Basophils/100 WBC (Bld) 1.2 % [facility] Differential cell count method Nom (Bld) Auto [facility] Eosinophils (Bld) [#/Vol] 0.12 10*3/uL [facility] Eosinophils/100 WBC (Bld) 1.6 % [facility] Erythrocyte distribution width (RBC) [Ratio] 15.3 % High 11.5 - 15.0 % [facility] Hematocrit (Bld) [Volume fraction] 34.3 % Low 36.0 - 46.0 % [facility] Hemoglobin (Bld) [Mass/Vol] 11.7 g/dL 11.5 - 15.5 g/dL [facility] Immature granulocytes (Bld) [#/Vol] [facility] Immature granulocytes/100 WBC (Bld) 0.1 % [facility] Interpretation and review of laboratory results Abnormal [facility] Lymphocytes (Bld) [#/Vol] 1.74 10*3/uL [facility] Lymphocytes/100 WBC (Bld) 23.8 % [facility] MCH (RBC) [Entitic mass] 29.6 pg 26.0 - 34.0 pg [facility] MCHC (RBC) [Mass/Vol] 34.1 g/dL 30.5 - 36.0 g/dL [facility] MCV (RBC) [Entitic vol] 86.8 fL 80.0 - 100.0 fL [facility] Monocytes (Bld) [#/Vol] 0.47 10*3/uL [facility] Monocytes/100 WBC (Bld) 6.4 % [facility] Neutrophils (Bld) [#/Vol] 4.89 10*3/uL [facility] Neutrophils/100 WBC (Bld) 66.9 % [facility] Nucleated RBC (Bld) [#/Vol] NINF [facility] Nucleated RBC/100 WBC (Bld) [Ratio] 0.0 % /100 WBC [facility] Platelet mean volume (Bld) [Entitic vol] 9.4 fL 9.0 - 12.7 fL [facility] Platelets (Bld) [#/Vol] 338 10*3/uL [facility] RBC (Bld) [#/Vol] 3.95 10*6/uL 3.90 - 5.20 m/uL [facility] WBC (Bld) [#/Vol] 7.32 10*3/uL [facility] Basophils (Bld) [#/Vol] 0.09 10*3/uL Normal <0.11 [facility] Comment on above: Order Comment: Speci men Type: BLOOD SPECIMENOrdering Facility: [facility] Address: [address] [place] [address] Performed By: #### 5 7021-8 ####[facility] [id number] [address] OF [facility] Basophils/100 WBC (Bld) 1.2 % Normal [facility] Comment on above: Order Comment: Speci men Type: BLOOD SPECIMENOrdering Facility: [facility] Address: [address] [place] [address] Performed By: #### 5 7021-8 ####[facility] [id number] [place] [id number] [place] Differential cell count method Nom (Bld) Auto Normal [facility] Comment on above: Order Comment: Speci men Type: BLOOD SPECIMENOrdering Facility: [facility] Address: [address] [place] [address] Performed By: #### 5 7021-8 ####[facility] [id number] [place] [address] [place] Eosinophils (Bld) [#/Vol] 0.12 10*3/uL Normal <0.46 [facility] Comment on above: Order Comment: Speci men Type: BLOOD SPECIMENOrdering Facility: [facility] Address: [address] [place] [address] Performed By: #### 5 7021-8 ####[facility] [id number] [place] [address] [place] Eosinophils/100 WBC (Bld) 1.6 % Normal [facility] Comment on above: Order Comment: Speci men Type: BLOOD SPECIMENOrdering Facility: [facility] Address: [address] [place] [address] Performed By: #### 5 7021-8 ####[facility]CL[facility] [id number] [place] [address] [place] Erythrocyte distribution width (RBC) [Ratio] 15.3 % High 11.5-15.0 [facility] Comment on above: Order Comment: Speci men Type: BLOOD SPECIMENOrdering Facility: [facility] Address: [address] [place] [address] Performed By: #### 5 7021-8 ####[facility] [id number] [place] [address] [place] Hematocrit (Bld) [Volume fraction] 34.3 % Low 36.0-46.0 [facility] Comment on above: Order Comment: Speci men Type: BLOOD SPECIMENOrdering Facility: [facility] Address: [address] [place] [address] Performed By: #### 5 7021-8 ####[facility] HARDIKKALONARAFFY [id number] [place] [address] [place] Hemoglobin (Bld) [Mass/Vol] 11.7 g/dL Normal 11.5-15.5 [facility] Comment on above: Order Comment: Speci men Type: BLOOD SPECIMENOrdering Facility: [facility] Address: [address] [place] [address] Performed By: #### 5 7021-8 ####[facility] [id number] [place] [address] [place] Immature granulocytes (Bld) [#/Vol] 10*3/uL Normal <0.10 [facility] Comment on above: Order Comment: Speci men Type: BLOOD SPECIMENOrdering Facility: [facility] Address: [address] [place] [address] Performed By: #### 5 7021-8 ####[facility]AMINCLIA [id number] [place] [address] [place] Immature granulocytes/100 WBC (Bld) 0.1 % Normal [facility] Comment on above: Order Comment: Speci men Type: BLOOD SPECIMENOrdering Facility: [facility] Address: [address] [place] [address] Performed By: #### 5 7021-8 ####[facility]AMINCLIA [id number] [place] [address] [place] Lymphocytes (Bld) [#/Vol] 1.74 10*3/uL Normal 1.00-4.00 [facility] Comment on above: Order Comment: Speci men Type: BLOOD SPECIMENOrdering Facility: [facility] Address: [address] [place] [address] Performed By: #### 5 7021-8 ####[facility] HARDIKKALONARAFFY [id number] [place] [address] [place] Lymphocytes/100 WBC (Bld) 23.8 % Normal [facility] Comment on above: Order Comment: Speci men Type: BLOOD SPECIMENOrdering Facility: [facility] Address: [address] [place] [address] Performed By: #### 5 7021-8 ####[facility]AMIJENNIFERSHRIN[facility]IL[facility]EN [id number] [place] [address] [place] MCH (RBC) [Entitic mass] 29.6 pg Normal 26.0-34.0 [facility] Comment on above: Order Comment: Speci men Type: BLOOD SPECIMENOrdering Facility: [facility] Address: [address] [place] [address] Performed By: #### 5 7021-8 ####[facility] [id number] [place] [address] [place] MCHC (RBC) [Mass/Vol] 34.1 g/dL Normal 30.5-36.0 [facility] Comment on above: Order Comment: Speci men Type: BLOOD SPECIMENOrdering Facility: [facility] Address: [address] [place] [address] Performed By: #### 5 7021-8 ####[facility] [id number] [place] [address] [place] MCV (RBC) [Entitic vol] 86.8 fL Normal 80.0-100.0 [facility] Comment on above: Order Comment: Speci men Type: BLOOD SPECIMENOrdering Facility: [facility] Address: [address] [place] [address] Performed By: #### 5 7021-8 ####[facility] [id number] [place] [address] [place] Monocytes (Bld) [#/Vol] 0.47 10*3/uL Normal <0.87 [facility] Comment on above: Order Comment: Speci men Type: BLOOD SPECIMENOrdering Facility: [facility] Address: [address] [place] [address] Performed By: #### 5 7021-8 ####[facility] [id number] [place] [address] [place] Monocytes/100 WBC (Bld) 6.4 % Normal [facility] Comment on above: Order Comment: Speci men Type: BLOOD SPECIMENOrdering Facility: [facility] Address: [address] [place] [address] Performed By: #### 5 7021-8 ####[facility] [id number] [place] [address] [place] Neutrophils (Bld) [#/Vol] 4.89 10*3/uL Normal 1.45-7.50 [facility] Comment on above: Order Comment: Speci men Type: BLOOD SPECIMENOrdering Facility: [facility] Address: [address] [place] [address] Performed By: #### 5 7021-8 ####[facility]ENTERA [id number] [place] [address] [place] Neutrophils/100 WBC (Bld) 66.9 % Normal [facility] Comment on above: Order Comment: Speci men Type: BLOOD SPECIMENOrdering Facility: [facility] Address: [address] [place] [address] Performed By: #### 5 7021-8 ####[facility] [id number] [place] [address] [place] Nucleated RBC (Bld) [#/Vol] 10*3/uL Normal <0.01 [facility] Comment on above: Order Comment: Speci men Type: BLOOD SPECIMENOrdering Facility: [facility] Address: [address] [place] [address] Performed By: #### 5 7021-8 ####[facility] ERNESTO [id number] [place] [address] [place] Nucleated RBC/100 WBC (Bld) [Ratio] 0.0 /100 WBC Normal [facility] Comment on above: Order Comment: Speci men Type: BLOOD SPECIMENOrdering Facility: [facility] Address: [address] [place] [address] Performed By: #### 5 7021-8 ####[facility] HARDIKKALONANCNENA [id number] [place] [address] [place] Platelet mean volume (Bld) [Entitic vol] 9.4 fL Normal 9.0-12.7 [facility] Comment on above: Order Comment: Speci men Type: BLOOD SPECIMENOrdering Facility: [facility] Address: [address] [place] [address] Performed By: #### 5 7021-8 ####[facility] MIAMIRAFFY [id number] [place] [address] [place] Platelets (Bld) [#/Vol] 338 10*3/uL Normal 150-400 [facility] Comment on above: Order Comment: Speci men Type: BLOOD SPECIMENOrdering Facility: [facility] Address: [address] [place] [address] Performed By: #### 5 7021-8 ####[facility] MIAMIJENNIFERLIA [id number] [place] [address] [place] RBC (Bld) [#/Vol] 3.95 10*6/uL Normal 3.90-5.20 [facility] Comment on above: Order Comment: Speci men Type: BLOOD SPECIMENOrdering Facility: [facility] Address: [address] [place] [address] Performed By: #### 5 7021-8 ####[facility]ENTERWNCLIA [id number] [place] [address] [place] WBC (Bld) [#/Vol] 7.32 10*3/uL Normal 3.70-11.00 [facility] Comment on above: Order Comment: Speci men Type: BLOOD SPECIMENOrdering Facility: [facility] Address: [facility] [place] [address] Performed By: #### 5 7021-8 ####[facility] MIAMINCLIA [id number] [place] [address] [place] Comprehensive metabolic 2000 panelOrdered By: Maryellen Workman on 01-15-2025 Albumin [Mass/Vol] 4.3 g/dL 3.9 - 4.9 g/dL [facility] ALP [Catalytic activity/Vol] 75 U/L 34 - 123 U/L [facility] ALT [Catalytic activity/Vol] 12 U/L 7 - 38 U/L [facility] Anion gap [Moles/Vol] 11 mmol/L 8 - 15 mmol/L [facility] AST [Catalytic activity/Vol] 12 U/L Low 13 - 35 U/L [facility] Bilirubin [Mass/Vol] 0.5 mg/dL 0.2 - 1 .3 mg/dL [facility] Calcium [Mass/Vol] 9.2 mg/dL 8.5 - 10. 2 mg/dL [facility] Chloride [Moles/Vol] 97 mmol/L Low 98 - 10 7 mmol/L [facility] CO2 [Moles/Vol] 23 mmol/L 22 - 30 mmol/L [facility] Creatinine [Mass/Vol] 0.68 mg/dL 0.58 - 0.96 mg/dL [facility] GFR/1.73 sq M.predicted among non-blacks MDRD (S/P/Bld) [Vol rate/Area] 89 mL/min/{1.73_m2} - PINF [facility] Comment on above: Estimated Glomerular Filtration Rate (eGFR) is calculated using the 2020 CKD-EPI creatinine equation. This equation utilizes serum creatinine, sex, and age as parameters. The creatinine assay has traceable calibration to isotope dilution-mass spectrometry. Refer to KDIGO guidelines for clinical interpretation. In patients with unstable renal function, e.g. those with acute kidney injury, the eGFR may not accurately reflect actual GFR. Glucose [Mass/Vol] 94 mg/dL 74 - 99 mg/dL [facility] Comment on above: The [place] Diabete s Association (ADA) provides guidance for cutoff values for fasting glucose and random glucose. The ADA defines fasting as no caloric intake for at least 8 hours. Fasting plasma glucose results between 100 to 125 mg/dL indicate increased risk for diabetes (prediabetes). Fasting plasma glucose results greater than or equal to 126 mg/dL meet the criteria for diagnosis of diabetes. In the absence of unequivocal hyperglycemia, results should be confirmed by repeat testing. In a patient with classic symptoms of hyperglycemia or hyperglycemic crisis, random plasma glucose results greater than or equal to 200 mg/dL meet the criteria for diagnosis of diabetes. Reference: Standards of Medical Care in Diabetes 2016, [place] Diabetes Association. Diabetes Care. 2016.39(Suppl 1). Interpretation and review of laboratory results Abnormal [facility] Potassium [Moles/Vol] 4.2 mmol/L 3.7 - 5.1 mmol/L [facility] Protein [Mass/Vol] 6.8 g/dL 6.3 - 8.0 g/dL [facility] Sodium [Moles/Vol] 131 mmol/L Low 136 - 144 mmol/L [facility] Urea nitrogen [Mass/Vol] 17 mg/dL 7 - 21 mg/dL [facility] Comprehensive metabolic 2000 panelon 01-15-2025 Albumin [Mass/Vol] 4.3 g/dL Normal 3.9-4.9 [facility] Comment on above: Order Comment: Speci men Type: BLOOD SPECIMENOrdering Facility: [facility] Address: [address] [place] [address] Performed By: #### 2 4323-8 ####[facility] [id number] [place] [address] [place] ALP [Catalytic activity/Vol] 75 U/L Normal 34-123 [facility] Comment on above: Order Comment: Speci men Type: BLOOD SPECIMENOrdering Facility: [facility] Address: [address] [place] [address] Performed By: #### 2 4323-8 ####[facility] JOI MILLTOWNCLIA [id number] [place] [address] [place] ALT [Catalytic activity/Vol] 12 U/L Normal 7-38 [facility] Comment on above: Order Comment: Speci men Type: BLOOD SPECIMENOrdering Facility: [facility] Address: [address] [place] [address] Performed By: #### 2 4323-8 ####[facility]ENTERWNCLIA [id number] [place] [address] [place] Anion gap [Moles/Vol] 11 mmol/L Normal 8-15 [facility] Comment on above: Order Comment: Speci men Type: BLOOD SPECIMENOrdering Facility: [facility] Address: [address] [place] [address] Performed By: #### 2 4323-8 ####[facility]ENTERWNCLIA [id number] [place] [address] [place] AST [Catalytic activity/Vol] 12 U/L Low 13-35 [facility] Comment on above: Order Comment: Speci men Type: BLOOD SPECIMENOrdering Facility: [facility] Address: [address] [place] [address] Performed By: #### 2 4323-8 ####[facility] CENTERWNCLIA [id number] [place] [address] [place] Bilirubin [Mass/Vol] 0.5 mg/dL Normal 0.2-1.3 [facility] Comment on above: Order Comment: Speci men Type: BLOOD SPECIMENOrdering Facility: [facility] Address: [address] [place] [address] Performed By: #### 2 4323-8 ####[facility] MIAMINCLIA [id number] [place] [address] [place] Calcium [Mass/Vol] 9.2 mg/dL Normal 8.5-10.2 [facility] Comment on above: Order Comment: Speci men Type: BLOOD SPECIMENOrdering Facility: [facility] Address: [address] [place] [address] Performed By: #### 2 4323-8 ####[facility] JOI MILLTOWNCLIA [id number] [place] [address] [place] Chloride [Moles/Vol] 97 mmol/L Low 98-107 [facility] Comment on above: Order Comment: Speci men Type: BLOOD SPECIMENOrdering Facility: [facility] Address: [address] [place] [address] Performed By: #### 2 4323-8 ####[facility] CENTERWNELIA [id number] [place] [address] [place] CO2 [Moles/Vol] 23 mmol/L Normal 22-30 [facility] Comment on above: Order Comment: Speci men Type: BLOOD SPECIMENOrdering Facility: [facility] Address: [address] [place] [address] Performed By: #### 2 4323-8 ####[facility] MILLWNCLIA [id number] [place] [address] [place] Creatinine [Mass/Vol] 0.68 mg/dL Normal 0.58-0.96 [facility] Comment on above: Order Comment: Speci men Type: BLOOD SPECIMENOrdering Facility: [facility] Address: [address] [place] [address] Performed By: #### 2 4323-8 ####[facility] DAYTONLIA [id number] [place] [address] [place] eGFRcr SerPlBld CKD-EPI 2020 89 mL/min/1.73m??? Normal >=60 [facility] Comment on above: Order Comment: Speci men Type: BLOOD SPECIMENOrdering Facility: [facility] Address: [address] [place] [id number] Result Comment: Amina mated Glomerular Filtration Rate (eGFR) is calculated using the 2020 CKD-EPI creatinine equation. This equation utilizes serum creatinine, sex, and age as parameters. The creatinine assay has traceable calibration to isotope dilution-mass spectrometry. Refer to KDIGO guidelines for clinical interpretation. In patients with unstable renal function, e.g. those with acute kidney injury, the eGFR may not accurately reflect actual GFR. Performed By: #### 2 4323-8 ####[facility] [id number] [place] [address] [place] Glucose [Mass/Vol] 94 mg/dL Normal 74-99 [facility] Comment on above: Order Comment: Katrina li Type: BLOOD SPECIMENOrdering Facility: [facility] Address: [address] [place] [address] Result Comment: The [place] Diabetes Association (ADA) provides guidance for cutoff values for fasting glucose and random glucose. The ADA defines fasting as no caloric intake for at least 8 hours. Fasting plasma glucose results between 100 to 125 mg/dL indicate increased risk for diabetes (prediabetes).Fasting plasma glucose results greater than or equal to 126 mg/dL meet the criteria for diagnosis of diabetes. In the absence of unequivocal hyperglycemia, results should be confirmed by repeat testing. In a patient with classic symptoms of hyperglycemia or hyperglycemic crisis, random plasma glucose results greater than or equal to 200 mg/dL meet the criteria for diagnosis of diabetes.Reference: Standards of Medical Care in Diabetes 2016, [place] Diabetes Association. Diabetes Care. 2016.39(Suppl 1). Performed By: #### 2 4323-8 ####[facility] [id number] [place] [address] [place] Potassium [Moles/Vol] 4.2 mmol/L Normal 3.7-5.1 [facility] Comment on above: Order Comment: Katrina li Type: BLOOD SPECIMENOrdering Facility: [facility] Address: [address] [id number] Performed By: #### 2 4323-8 ####[facility] MILLWNCLIA [id number] [place] [address] [place] Protein [Mass/Vol] 6.8 g/dL Normal 6.3-8.0 [facility] Comment on above: Order Comment: Speci men Type: BLOOD SPECIMENOrdering Facility: [facility] Address: [address] [place] [address] Performed By: #### 2 4323-8 ####[facility] MIAMINCLIA [id number] [place] [address] [place] Sodium [Moles/Vol] 131 mmol/L Low 136-144 [facility] Comment on above: Order Comment: Speci men Type: BLOOD SPECIMENOrdering Facility: [facility] Address: [address] [place] [address] Performed By: #### 2 4323-8 ####[facility]TONL[facility] [id number] [place] [address] [place] Urea nitrogen [Mass/Vol] 17 mg/dL Normal 7-21 [facility] Comment on above: Order Comment: Speci men Type: BLOOD SPECIMENOrdering Facility: [facility] Address: [address] [place] [address] Performed By: #### 2 4323-8 ####[facility] MIAMINCLIA [id number] [place] [address] [place] MRI ABDOMEN WO/W IVCONon MRI ABDOMEN WO/W IVCON Normal [facility] Pelvic (Non )on Pelvic (Non ) [facility] Imaging Services [address] [place], [place] [id number] Pelvic (Non ) MR#: [id number] Acct: [id number] Name: DANETTE BISHOP Rep #: [id number] : 1945 F 79 From: Dominik Vides MD PCP: Dr. Eveline Argueta DO Status: REG CLI Study: Pelvic (Non ) Date of Exam: 01/11/25 Exam# [id number] Ordering Dr: Eveline Argueta DO EXAM: US Pelvis Transabdominal, Complete CLINICAL INDICATION: LLQ PAIN TECHNIQUE: Real-time complete transabdominal pelvic ultrasound with image documentation. COMPARISON: No relevant prior studies available. FINDINGS: UTERUS/CERVIX: Endometrium not visualized secondary to patient body habitus. The uterus measures 6.0 x 2.8 x 1.7 cm. RIGHT OVARY: Right ovary not visualized secondary to bowel gas. LEFT OVARY: Left ovary not visualized secondary to bowel gas. FREE FLUID: No free fluid. BLADDER: Unremarkable as visualized. Wall is normal thickness for degree of distention. US/Pelvic (Non ) IMPRESSION: No acute findings in the pelvis. Reading Location: [facility] CC: Dr. Eveline Argueta DO Home Care Liaison: Signed Normal [facility] CBC W Auto Differential pane l (Bld)on 12-31-2024 Basophils (Bld) [#/Vol] 0.07 10*3/uL Normal <0.11 [facility] Comment on above: Order Comment: Speci men Type: BLOOD SPECIMENOrdering Facility: [facility] Address: [address] [place] [address] Performed By: #### 5 7021-8 ####[facility] [id number] [place] [address] [place] Basophils/100 WBC (Bld) 1.3 % Normal [facility] Comment on above: Order Comment: Speci men Type: BLOOD SPECIMENOrdering Facility: [facility] Address: [address] [place] [address] Performed By: #### 5 7021-8 ####[facility] [id number] [place] [address] [place] Differential cell count method Nom (Bld) Auto Normal [facility] Comment on above: Order Comment: Speci men Type: BLOOD SPECIMENOrdering Facility: [facility] Address: [address] [place] [address] Performed By: #### 5 7021-8 ####[facility] HARDIKCHLOE [id number] [place] [address] [place] Eosinophils (Bld) [#/Vol] 0.15 10*3/uL Normal <0.46 [facility] Comment on above: Order Comment: Speci men Type: BLOOD SPECIMENOrdering Facility: [facility] Address: [address] [place] [address] Performed By: #### 5 7021-8 ####[facility] MIAMIJENNIFERSHRINERS HOSPITALS FOR CHILDREN [id number] [place] [address] [place] Eosinophils/100 WBC (Bld) 2.7 % Normal [facility] Comment on above: Order Comment: Speci men Type: BLOOD SPECIMENOrdering Facility: [facility] Address: [address] [place] [address] Performed By: #### 5 7021-8 ####[facility]AMINCSHRINERS HOSPITALS FOR CHILDREN [id number] [place] [address] [place] Erythrocyte distribution width (RBC) [Ratio] 15.1 % High 11.5-15.0 [facility] Comment on above: Order Comment: Speci men Type: BLOOD SPECIMENOrdering Facility: [facility] Address: [address] [place] [address] Performed By: #### 5 7021-8 ####[facility] [id number] [place] [address] [place] Hematocrit (Bld) [Volume fraction] 35.6 % Low 36.0-46.0 [facility] Comment on above: Order Comment: Speci men Type: BLOOD SPECIMENOrdering Facility: [facility] Address: [address] [place] [address] Performed By: #### 5 7021-8 ####[facility] HARDIKWNCLIA [id number] [place] [address] [place] Hemoglobin (Bld) [Mass/Vol] 12.3 g/dL Normal 11.5-15.5 [facility] Comment on above: Order Comment: Speci men Type: BLOOD SPECIMENOrdering Facility: [facility] Address: [address] [place] [address] Performed By: #### 5 7021-8 ####[facility]TONLIA [id number] [place] [address] [place] Immature granulocytes (Bld) [#/Vol] 10*3/uL Normal <0.10 [facility] Comment on above: Order Comment: Speci men Type: BLOOD SPECIMENOrdering Facility: [facility] Address: [address] [place] [address] Performed By: #### 5 7021-8 ####[facility]ENTERA [id number] [place] [address] [place] Immature granulocytes/100 WBC (Bld) 0.2 % Normal [facility] Comment on above: Order Comment: Speci men Type: BLOOD SPECIMENOrdering Facility: [facility] Address: [address] [place] [address] Performed By: #### 5 7021-8 ####[facility] DAYTONLIA [id number] [place] [address] [place] Lymphocytes (Bld) [#/Vol] 1.66 10*3/uL Normal 1.00-4.00 [facility] Comment on above: Order Comment: Speci men Type: BLOOD SPECIMENOrdering Facility: [facility] Address: [address] [place] [address] Performed By: #### 5 7021-8 ####[facility] MIAMINCLIA [id number] [place] [address] [place] Lymphocytes/100 WBC (Bld) 30.3 % Normal [facility] Comment on above: Order Comment: Speci men Type: BLOOD SPECIMENOrdering Facility: [facility] Address: [address] [place] [address] Performed By: #### 5 7021-8 ####[facility] MIAMINCSHRINERS HOSPITALS FOR CHILDREN [id number] [place] [address] [place] MCH (RBC) [Entitic mass] 29.8 pg Normal 26.0-34.0 [facility] Comment on above: Order Comment: Speci men Type: BLOOD SPECIMENOrdering Facility: [facility] Address: [address] [place] [address] Performed By: #### 5 7021-8 ####[facility] MIAMINCSHRINERS H[facility]ITALS FOR CHIL[facility]EN [id number] [place] [address] [place] MCHC (RBC) [Mass/Vol] 34.6 g/dL Normal 30.5-36.0 [facility] Comment on above: Order Comment: Speci men Type: BLOOD SPECIMENOrdering Facility: [facility] Address: [address] [place] [address] Performed By: #### 5 7021-8 ####[facility] MIAMINCLIA [id number] [place] [address] [place] MCV (RBC) [Entitic vol] 86.2 fL Normal 80.0-100.0 [facility] Comment on above: Order Comment: Speci men Type: BLOOD SPECIMENOrdering Facility: [facility] Address: [address] [place] [address] Performed By: #### 5 7021-8 ####[facility]AMINCSHRIN[facility]IL[facility] [id number] [place] [address] [place] Monocytes (Bld) [#/Vol] 0.44 10*3/uL Normal <0.87 [facility] Comment on above: Order Comment: Speci men Type: BLOOD SPECIMENOrdering Facility: [facility] Address: [address] [place] [address] Performed By: #### 5 7021-8 ####[facility] MIAMIMAYNORA [id number] [place] [address] [place] Monocytes/100 WBC (Bld) 8.0 % Normal [facility] Comment on above: Order Comment: Speci men Type: BLOOD SPECIMENOrdering Facility: [facility] Address: [address] [place] [address] Performed By: #### 5 7021-8 ####[facility]AMINCSHRINERS H[facility] FOR CHIL[facility]EN [id number] [place] [address] [place] Neutrophils (Bld) [#/Vol] 3.15 10*3/uL Normal 1.45-7.50 [facility] Comment on above: Order Comment: Speci men Type: BLOOD SPECIMENOrdering Facility: [facility] Address: [address] [place] [address] Performed By: #### 5 7021-8 ####[facility]ENTERA [id number] [place] [address] [place] Neutrophils/100 WBC (Bld) 57.5 % Normal [facility] Comment on above: Order Comment: Speci men Type: BLOOD SPECIMENOrdering Facility: [facility] Address: [address] [place] [address] Performed By: #### 5 7021-8 ####[facility] DAYTONLIA [id number] [place] [address] [place] Nucleated RBC (Bld) [#/Vol] 10*3/uL Normal <0.01 [facility] Comment on above: Order Comment: Speci men Type: BLOOD SPECIMENOrdering Facility: [facility] Address: [address] [place] [address] Performed By: #### 5 7021-8 ####[facility] HARDIKKATYLIA [id number] [place] [address] [place] Nucleated RBC/100 WBC (Bld) [Ratio] 0.0 /100 WBC Normal [facility] Comment on above: Order Comment: Speci men Type: BLOOD SPECIMENOrdering Facility: [facility] Address: [address] [place] [address] Performed By: #### 5 7021-8 ####[facility] MIAMIJENNIFERLIA [id number] [place] [address] [place] Platelet mean volume (Bld) [Entitic vol] 9.4 fL Normal 9.0-12.7 [facility] Comment on above: Order Comment: Speci men Type: BLOOD SPECIMENOrdering Facility: [facility] Address: [address] [place] [address] Performed By: #### 5 7021-8 ####[facility]ENTERA [id number] [place] [address] [place] Platelets (Bld) [#/Vol] 375 10*3/uL Normal 150-400 [facility] Comment on above: Order Comment: Speci men Type: BLOOD SPECIMENOrdering Facility: [facility] Address: [address] [place] [address] Performed By: #### 5 7021-8 ####[facility] DAYTONLIA [id number] [place] [address] [place] RBC (Bld) [#/Vol] 4.13 10*6/uL Normal 3.90-5.20 [facility] Comment on above: Order Comment: Speci men Type: BLOOD SPECIMENOrdering Facility: [facility] Address: [address] [place] [address] Performed By: #### 5 7021-8 ####[facility] MIAMINCLIA [id number] [address] [place] [id number] [place] WBC (Bld) [#/Vol] 5.48 10*3/uL Normal 3.70-11.00 [facility] Comment on above: Order Comment: Speci men Type: BLOOD SPECIMENOrdering Facility: [facility] Address: [address] [place], [place] [address] Performed By: #### 5 7021-8 ####[facility] INDIANALIA [id number] [address] [place] [id number] [place] CNPNon 12-28-2024 CNPN Normal [facility] CBC W Auto Differential pane l (Bld)on 12-26-2024 Basophils (Bld) [#/Vol] 0.07 10*3/uL [facility] Basophils/100 WBC (Bld) 1.1 % [facility] Differential cell count method Nom (Bld) Auto [facility] Eosinophils (Bld) [#/Vol] 0.06 10*3/uL [facility] Eosinophils/100 WBC (Bld) 0.9 % [facility] Erythrocyte distribution width (RBC) [Ratio] 15.2 % High 11.5 - 15.0 % [facility] Hematocrit (Bld) [Volume fraction] 34.1 % Low 36.0 - 46.0 % [facility] Hemoglobin (Bld) [Mass/Vol] 11.6 g/dL 11.5 - 15.5 g/dL [facility] Immature granulocytes (Bld) [#/Vol] [facility]ENTERF [facility] Immature granulocytes/100 WBC (Bld) 0.2 % [facility] Interpretation and review of laboratory results Abnormal [facility] Lymphocytes (Bld) [#/Vol] 1.68 10*3/uL [facility] Lymphocytes/100 WBC (Bld) 25.2 % [facility] MCH (RBC) [Entitic mass] 29.9 pg 26.0 - 34.0 pg [facility] MCHC (RBC) [Mass/Vol] 34 g/dL 30.5 - 36.0 g/dL [facility] MCV (RBC) [Entitic vol] 87.9 fL 80.0 - 100.0 fL [facility] Monocytes (Bld) [#/Vol] 0.39 10*3/uL NINF [facility] Monocytes/100 WBC (Bld) 5.9 % [facility] Neutrophils (Bld) [#/Vol] 4.45 10*3/uL [facility] Neutrophils/100 WBC (Bld) 66.7 % [facility] Nucleated RBC (Bld) [#/Vol] NINF [facility] Nucleated RBC/100 WBC (Bld) [Ratio] 0 % /100 WBC [facility] Platelet mean volume (Bld) [Entitic vol] 9.6 fL 9.0 - 12.7 fL [facility] Platelets (Bld) [#/Vol] 368 10*3/uL [facility] RBC (Bld) [#/Vol] 3.88 10*6/uL Low 3.90 - 5.20 m/uL [facility] WBC (Bld) [#/Vol] 6.66 10*3/uL [facility] Basophils (Bld) [#/Vol] 0.07 10*3/uL Normal <0.11 [facility] Comment on above: Order Comment: Speci men Type: BLOOD SPECIMENOrdering Facility: [facility] Address: [address] [place] [address] Performed By: #### 5 7021-8 ####[facility] [id number] [place] [address] [place] Basophils/100 WBC (Bld) 1.1 % Normal [facility] Comment on above: Order Comment: Speci men Type: BLOOD SPECIMENOrdering Facility: [facility] Address: [address] [place] [address] Performed By: #### 5 7021-8 ####[facility] [id number] [place] [address] [place] Differential cell count method Nom (Bld) Auto Normal [facility] Comment on above: Order Comment: Speci men Type: BLOOD SPECIMENOrdering Facility: [facility] Address: [address] [place] [address] Performed By: #### 5 7021-8 ####[facility] CENTERWNELIA [id number] [place] [address] [place] Eosinophils (Bld) [#/Vol] 0.06 10*3/uL Normal <0.46 [facility] Comment on above: Order Comment: Speci men Type: BLOOD SPECIMENOrdering Facility: [facility] Address: [address] [place] [address] Performed By: #### 5 7021-8 ####[facility] [id number] [place] [address] [place] Eosinophils/100 WBC (Bld) 0.9 % Normal [facility] Comment on above: Order Comment: Speci men Type: BLOOD SPECIMENOrdering Facility: [facility] Address: [address] [place] [address] Performed By: #### 5 7021-8 ####[facility] [id number] [place] [address] [place] Erythrocyte distribution width (RBC) [Ratio] 15.2 % High 11.5-15.0 [facility] Comment on above: Order Comment: Speci men Type: BLOOD SPECIMENOrdering Facility: [facility] Address: [address] [place] [address] Performed By: #### 5 7021-8 ####[facility] [id number] [place] [address] [place] Hematocrit (Bld) [Volume fraction] 34.1 % Low 36.0-46.0 [facility] Comment on above: Order Comment: Speci men Type: BLOOD SPECIMENOrdering Facility: [facility] Address: [address] [place] [address] Performed By: #### 5 7021-8 ####[facility] MIAMINCLI [id number] [place] [address] [place] Hemoglobin (Bld) [Mass/Vol] 11.6 g/dL Normal 11.5-15.5 [facility] Comment on above: Order Comment: Speci men Type: BLOOD SPECIMENOrdering Facility: [facility] Address: [address] [place] [address] Performed By: #### 5 7021-8 ####[facility] [id number] [place] [address] [place] Immature granulocytes (Bld) [#/Vol] 10*3/uL Normal <0.10 [facility] Comment on above: Order Comment: Speci men Type: BLOOD SPECIMENOrdering Facility: [facility] Address: [address] [place] [address] Performed By: #### 5 7021-8 ####[facility] [id number] [place] [address] [place] Immature granulocytes/100 WBC (Bld) 0.2 % Normal [facility] Comment on above: Order Comment: Speci men Type: BLOOD SPECIMENOrdering Facility: [facility] Address: [address] [place] [address] Performed By: #### 5 7021-8 ####[facility] [id number] [place] [address] [place] Lymphocytes (Bld) [#/Vol] 1.68 10*3/uL Normal 1.00-4.00 [facility] Comment on above: Order Comment: Speci men Type: BLOOD SPECIMENOrdering Facility: [facility] Address: [address] [place] [address] Performed By: #### 5 7021-8 ####[facility] [id number] [place] [address] [place] Lymphocytes/100 WBC (Bld) 25.2 % Normal [facility] Comment on above: Order Comment: Speci men Type: BLOOD SPECIMENOrdering Facility: [facility] Address: [address] [place] [address] Performed By: #### 5 7021-8 ####[facility] MIAMIJENNIFERJane [id number] MCH (RBC) [Entitic mass] 29.9 pg Normal 26.0-34.0 [facility] Comment on above: Order Comment: Speci men Type: BLOOD SPECIMENOrdering Facility: [facility] Address: [address] [place] [address] Performed By: #### 5 7021-8 ####[facility] MIAMINCSHRINERS HOS[facility]ITALS FOR CHILDREN [id number] [place] [address] [place] MCHC (RBC) [Mass/Vol] 34.0 g/dL Normal 30.5-36.0 [facility] Comment on above: Order Comment: Speci men Type: BLOOD SPECIMENOrdering Facility: [facility] Address: [address] [place] [address] Performed By: #### 5 7021-8 ####[facility] [id number] [place] [address] [place] MCV (RBC) [Entitic vol] 87.9 fL Normal 80.0-100.0 [facility] Comment on above: Order Comment: Speci men Type: BLOOD SPECIMENOrdering Facility: [facility] Address: [address] [place] [address] Performed By: #### 5 7021-8 ####[facility] [id number] [place] [address] [place] Monocytes (Bld) [#/Vol] 0.39 10*3/uL Normal <0.87 [facility] Comment on above: Order Comment: Speci men Type: BLOOD SPECIMENOrdering Facility: [facility] Address: [address] [place] [address] Performed By: #### 5 7021-8 ####[facility] HARDIKWNCLIA [id number] [place] [address] [place] Monocytes/100 WBC (Bld) 5.9 % Normal [facility] Comment on above: Order Comment: Speci men Type: BLOOD SPECIMENOrdering Facility: [facility] Address: [address] [place] [address] Performed By: #### 5 7021-8 ####[facility] DAYTONLIA [id number] [place] [address] [place] Neutrophils (Bld) [#/Vol] 4.45 10*3/uL Normal 1.45-7.50 [facility] Comment on above: Order Comment: Speci men Type: BLOOD SPECIMENOrdering Facility: [facility] Address: [address] [place] [address] Performed By: #### 5 7021-8 ####[facility]ENTERA [id number] [place] [address] [place] Neutrophils/100 WBC (Bld) 66.7 % Normal [facility] Comment on above: Order Comment: Speci men Type: BLOOD SPECIMENOrdering Facility: [facility] Address: [address] [place] [address] Performed By: #### 5 7021-8 ####[facility] DAYTONLIA [id number] [place] [address] [place] Nucleated RBC (Bld) [#/Vol] 10*3/uL Normal <0.01 [facility] Comment on above: Order Comment: Speci men Type: BLOOD SPECIMENOrdering Facility: [facility] Address: [address] [place] [address] Performed By: #### 5 7021-8 ####[facility] MIAMINCLIA [id number] [place] [address] [place] Nucleated RBC/100 WBC (Bld) [Ratio] 0.0 /100 WBC Normal [facility] Comment on above: Order Comment: Speci men Type: BLOOD SPECIMENOrdering Facility: [facility] Address: [address] [place] [address] Performed By: #### 5 7021-8 ####[facility] MIAMINCSHRINERS H[facility]ITALS FOR CHIL[facility]EN [id number] [place] [address] [place] Platelet mean volume (Bld) [Entitic vol] 9.6 fL Normal 9.0-12.7 [facility] Comment on above: Order Comment: Speci men Type: BLOOD SPECIMENOrdering Facility: [facility] Address: [address] [place] [address] Performed By: #### 5 7021-8 ####[facility] [id number] [place] [address] [place] Platelets (Bld) [#/Vol] 368 10*3/uL Normal 150-400 [facility] Comment on above: Order Comment: Speci men Type: BLOOD SPECIMENOrdering Facility: [facility] Address: [address] [place] [address] Performed By: #### 5 7021-8 ####[facility] [id number] [place] [address] [place] RBC (Bld) [#/Vol] 3.88 10*6/uL Low 3.90-5.20 [facility] Comment on above: Order Comment: Speci men Type: BLOOD SPECIMENOrdering Facility: [facility] Address: [address] [place] [address] Performed By: #### 5 7021-8 ####[facility] [id number] [place] [address] [place] WBC (Bld) [#/Vol] 6.66 10*3/uL Normal 3.70-11.00 [facility] Comment on above: Order Comment: Speci men Type: BLOOD SPECIMENOrdering Facility: [facility] Address: [address] [place] [address] Performed By: #### 5 7021-8 ####[facility] [id number] [place] [id number] [facility] CRP SerPl-mCncon 12-26-2024 CRP [Mass/Vol] mg/L Normal <0.9 [facility] Comment on above: Order Comment: Speci men Type: BLOOD SPECIMENOrdering Facility: [facility] Address: [address] [place] [address] Performed By: #### 1 988-5 ####[facility] LABCLIA [id number] [place] [id number] [facility] Comprehensive metabolic 2000 panelOrdered By: Zaida Rice on 12-26-2024 Albumin [Mass/Vol] 4.4 g/dL 3.9 - 4.9 g/dL [facility] ALP [Catalytic activity/Vol] 76 U/L 34 - 123 U/L [facility] ALT [Catalytic activity/Vol] 12 U/L 7 - 38 U/L [facility] Anion gap [Moles/Vol] 14 mmol/L 8 - 15 mmol/L [facility] AST [Catalytic activity/Vol] 15 U/L 13 - 35 U/L [facility] Bilirubin [Mass/Vol] 0.5 mg/dL 0.2 - 1 .3 mg/dL [facility] Calcium [Mass/Vol] 9.3 mg/dL 8.5 - 10. 2 mg/dL [facility] Chloride [Moles/Vol] 99 mmol/L 98 - 10 7 mmol/L [facility] CO2 [Moles/Vol] 20 mmol/L Low 22 - 30 mmol/L [facility] Creatinine [Mass/Vol] 0.63 mg/dL 0.58 - 0.96 mg/dL [facility] GFR/1.73 sq M.predicted among non-blacks MDRD (S/P/Bld) [Vol rate/Area] 90 mL/min/{1.73_m2} - PINF [facility] Comment on above: Estimated Glomerular Filtration Rate (eGFR) is calculated using the 2020 CKD-EPI creatinine equation. This equation utilizes serum creatinine, sex, and age as parameters. The creatinine assay has traceable calibration to isotope dilution-mass spectrometry. Refer to KDIGO guidelines for clinical interpretation. In patients with unstable renal function, e.g. those with acute kidney injury, the eGFR may not accurately reflect actual GFR. Glucose [Mass/Vol] 100 mg/dL High 74 - 99 mg/dL [facility] Comment on above: The [place] Diabete s Association (ADA) provides guidance for cutoff values for fasting glucose and random glucose. The ADA defines fasting as no caloric intake for at least 8 hours. Fasting plasma glucose results between 100 to 125 mg/dL indicate increased risk for diabetes (prediabetes). Fasting plasma glucose results greater than or equal to 126 mg/dL meet the criteria for diagnosis of diabetes. In the absence of unequivocal hyperglycemia, results should be confirmed by repeat testing. In a patient with classic symptoms of hyperglycemia or hyperglycemic crisis, random plasma glucose results greater than or equal to 200 mg/dL meet the criteria for diagnosis of diabetes. Reference: Standards of Medical Care in Diabetes 2016, [place] Diabetes Association. Diabetes Care. 2016.39(Suppl 1). Interpretation and review of laboratory results Abnormal [facility] Potassium [Moles/Vol] 4.2 mmol/L 3.7 - 5.1 mmol/L [facility] Protein [Mass/Vol] 6.9 g/dL 6.3 - 8.0 g/dL [facility] Sodium [Moles/Vol] 133 mmol/L Low 136 - 144 mmol/L [facility] Urea nitrogen [Mass/Vol] 12 mg/dL 7 - 21 mg/dL [facility] Comprehensive metabolic 2000 panelon 12-26-2024 Albumin [Mass/Vol] 4.4 g/dL Normal 3.9-4.9 [facility] Comment on above: Order Comment: Speci men Type: BLOOD SPECIMENOrdering Facility: [facility] Address: [facility] [place] [address] Performed By: #### 2 4323-8 ####[facility] [id number] [place] [address] [place] ALP [Catalytic activity/Vol] 76 U/L Normal 34-123 [facility] Comment on above: Order Comment: Speci men Type: BLOOD SPECIMENOrdering Facility: [facility] Address: [address] [place] [address] Performed By: #### 2 4323-8 ####[facility] HARDIKKarleneNCLIA [id number] [place] [address] [place] ALT [Catalytic activity/Vol] 12 U/L Normal 7-38 [facility] Comment on above: Order Comment: Speci men Type: BLOOD SPECIMENOrdering Facility: [facility] Address: [address] [place] [address] Performed By: #### 2 4323-8 ####[facility] MIAMINCLIA [id number] [place] [address] [place] Anion gap [Moles/Vol] 14 mmol/L Normal 8-15 [facility] Comment on above: Order Comment: Speci men Type: BLOOD SPECIMENOrdering Facility: [facility] Address: [address] [place] [address] Performed By: #### 2 4323-8 ####[facility] MIAMINCLIA [id number] [place] [address] [place] AST [Catalytic activity/Vol] 15 U/L Normal 13-35 [facility] Comment on above: Order Comment: Speci men Type: BLOOD SPECIMENOrdering Facility: [facility] Address: [address] [place] [address] Performed By: #### 2 4323-8 ####[facility] MIAMINCLIA [id number] [place] [address] [place] Bilirubin [Mass/Vol] 0.5 mg/dL Normal 0.2-1.3 [facility] Comment on above: Order Comment: Speci men Type: BLOOD SPECIMENOrdering Facility: [facility] Address: [address] [place] [address] Performed By: #### 2 4323-8 ####[facility] MILLTOWNCLIA [id number] [place] [address] [place] Calcium [Mass/Vol] 9.3 mg/dL Normal 8.5-10.2 [facility] Comment on above: Order Comment: Speci men Type: BLOOD SPECIMENOrdering Facility: [facility] Address: [address] [place] [address] Performed By: #### 2 4323-8 ####[facility] MILLWNCLIA [id number] [place] [address] [place] Chloride [Moles/Vol] 99 mmol/L Normal 98-107 [facility] Comment on above: Order Comment: Speci men Type: BLOOD SPECIMENOrdering Facility: [facility] Address: [address] [place] [address] Performed By: #### 2 4323-8 ####[facility] DAYTONLIA [id number] [place] [address] [place] CO2 [Moles/Vol] 20 mmol/L Low 22-30 [facility] Comment on above: Order Comment: Speci men Type: BLOOD SPECIMENOrdering Facility: [facility] Address: [address] [place] [address] Performed By: #### 2 4323-8 ####[facility] DAYTONLIA [id number] [place] [address] [place] Creatinine [Mass/Vol] 0.63 mg/dL Normal 0.58-0.96 [facility] Comment on above: Order Comment: Speci men Type: BLOOD SPECIMENOrdering Facility: [facility] Address: [address] [place] [address] Performed By: #### 2 4323-8 ####[facility] MIAMINCLIA [id number] [place] [address] [place] eGFRcr SerPlBld CKD-EPI 2020 90 mL/min/1.73m??? Normal >=60 [facility] Comment on above: Order Comment: Katrina li Type: BLOOD SPECIMENOrdering Facility: [facility] Address: [address] [place] [address] Result Comment: Amina mated Glomerular Filtration Rate (eGFR) is calculated using the 2020 CKD-EPI creatinine equation. This equation utilizes serum creatinine, sex, and age as parameters. The creatinine assay has traceable calibration to isotope dilution-mass spectrometry. Refer to KDIGO guidelines for clinical interpretation. In patients with unstable renal function, e.g. those with acute kidney injury, the eGFR may not accurately reflect actual GFR. Performed By: #### 2 4323-8 ####[facility] [id number] [place] [address] [place] Glucose [Mass/Vol] 100 mg/dL High 74-99 [facility] Comment on above: Order Comment: Katrina li Type: BLOOD SPECIMENOrdering Facility: [facility] Address: [address] [place] [address] Result Comment: The [place] Diabetes Association (ADA) provides guidance for cutoff values for fasting glucose and random glucose. The ADA defines fasting as no caloric intake for at least 8 hours. Fasting plasma glucose results between 100 to 125 mg/dL indicate increased risk for diabetes (prediabetes).Fasting plasma glucose results greater than or equal to 126 mg/dL meet the criteria for diagnosis of diabetes. In the absence of unequivocal hyperglycemia, results should be confirmed by repeat testing. In a patient with classic symptoms of hyperglycemia or hyperglycemic crisis, random plasma glucose results greater than or equal to 200 mg/dL meet the criteria for diagnosis of diabetes.Reference: Standards of Medical Care in Diabetes 2016, [place] Diabetes Association. Diabetes Care. 2016.39(Suppl 1). Performed By: #### 2 4323-8 ####[facility] [id number] [place] [address] [place] Potassium [Moles/Vol] 4.2 mmol/L Normal 3.7-5.1 [facility] Comment on above: Order Comment: Speci men Type: BLOOD SPECIMENOrdering Facility: [facility] Address: [address] [place] [address] Performed By: #### 2 4323-8 ####[facility] HARDIKKALONANCLORENZOA [id number] [address] [place] Protein [Mass/Vol] 6.9 g/dL Normal 6.3-8.0 [facility] Comment on above: Order Comment: Speci men Type: BLOOD SPECIMENOrdering Facility: [facility] Address: [address] [place] [address] Performed By: #### 2 4323-8 ####[facility] MIAMINCA [id number] [place] [address] [place] Sodium [Moles/Vol] 133 mmol/L Low 136-144 [facility] Comment on above: Order Comment: Speci men Type: BLOOD SPECIMENOrdering Facility: [facility] Address: [address] [place] [address] Performed By: #### 2 4323-8 ####[facility] MIAMINCLIA [id number] [address] [place] Urea nitrogen [Mass/Vol] 12 mg/dL Normal 7-21 [facility] Comment on above: Order Comment: Speci men Type: BLOOD SPECIMENOrdering Facility: [facility] Address: [address] [place] [address] Performed By: #### 2 4323-8 ####[facility] MIAMINCLIA [id number] [place] [address] [place] CBC W Auto Differential pane l (Bld)on 12-12-2024 Basophils (Bld) [#/Vol] 0.08 10*3/uL Normal <0.11 [facility] Comment on above: Order Comment: Speci men Type: BLOOD SPECIMENOrdering Facility: [facility] Address: [address] [place] [address] Performed By: #### 5 7021-8 ####[facility] MILLTOWNCLIA [id number] [place] [address] [place] Basophils/100 WBC (Bld) 1.1 % Normal [facility] Comment on above: Order Comment: Speci men Type: BLOOD SPECIMENOrdering Facility: [facility] Address: [address] [place] [address] Performed By: #### 5 7021-8 ####[facility] MIAMINCLIA [id number] [place] [address] [place] Differential cell count method Nom (Bld) Auto Normal [facility] Comment on above: Order Comment: Speci men Type: BLOOD SPECIMENOrdering Facility: [facility] Address: [address] [place] [address] Performed By: #### 5 7021-8 ####[facility] DAYTONLIA [id number] [place] [address] [place] Eosinophils (Bld) [#/Vol] 0.09 10*3/uL Normal <0.46 [facility] Comment on above: Order Comment: Speci men Type: BLOOD SPECIMENOrdering Facility: [facility] Address: [address] [place] [address] Performed By: #### 5 7021-8 ####[facility] CENTERWNELIA [id number] [place] [address] [place] Eosinophils/100 WBC (Bld) 1.2 % Normal [facility] Comment on above: Order Comment: Speci men Type: BLOOD SPECIMENOrdering Facility: [facility] Address: [address] [place] [address] Performed By: #### 5 7021-8 ####[facility] MIAMINCLIA [id number] [place] [address] [place] Erythrocyte distribution width (RBC) [Ratio] 15.1 % High 11.5-15.0 [facility] Comment on above: Order Comment: Speci men Type: BLOOD SPECIMENOrdering Facility: [facility] Address: [address] [place] [address] Performed By: #### 5 7021-8 ####[facility] [id number] [place] [address] [place] Hematocrit (Bld) [Volume fraction] 34.1 % Low 36.0-46.0 [facility] Comment on above: Order Comment: Speci men Type: BLOOD SPECIMENOrdering Facility: [facility] Address: [address] [place] [address] Performed By: #### 5 7021-8 ####[facility] MIAMINCSHRINERS HOSPITALS FOR CHILDREN [id number] [place] [address] [place] Hemoglobin (Bld) [Mass/Vol] 11.7 g/dL Normal 11.5-15.5 [facility] Comment on above: Order Comment: Speci men Type: BLOOD SPECIMENOrdering Facility: [facility] Address: [address] [place] [address] Performed By: #### 5 7021-8 ####[facility] [id number] [place] [address] [place] Immature granulocytes (Bld) [#/Vol] 10*3/uL Normal <0.10 [facility] Comment on above: Order Comment: Speci men Type: BLOOD SPECIMENOrdering Facility: [facility] Address: [address] [place] [address] Performed By: #### 5 7021-8 ####[facility] MIAMINCLI [id number] [place] [address] [place] Immature granulocytes/100 WBC (Bld) 0.1 % Normal [facility] Comment on above: Order Comment: Speci men Type: BLOOD SPECIMENOrdering Facility: [facility] Address: [address] [place] [address] Performed By: #### 5 7021-8 ####[facility] HARDIKKALONAMAYNORA [id number] [place] [address] [place] Lymphocytes (Bld) [#/Vol] 1.47 10*3/uL Normal 1.00-4.00 [facility] Comment on above: Order Comment: Speci men Type: BLOOD SPECIMENOrdering Facility: [facility] Address: [address] [place] [address] Performed By: #### 5 7021-8 ####[facility] [id number] [place] [address] [place] Lymphocytes/100 WBC (Bld) 20.2 % Normal [facility] Comment on above: Order Comment: Speci men Type: BLOOD SPECIMENOrdering Facility: [facility] Address: [address] [place] [address] Performed By: #### 5 7021-8 ####[facility] MIAMINCNENA [id number] [place] [address] [place] MCH (RBC) [Entitic mass] 30.1 pg Normal 26.0-34.0 [facility] Comment on above: Order Comment: Speci men Type: BLOOD SPECIMENOrdering Facility: [facility] Address: [address] [place] [address] Performed By: #### 5 7021-8 ####[facility] MIAMINCLIA [id number] [place] [address] [place] MCHC (RBC) [Mass/Vol] 34.3 g/dL Normal 30.5-36.0 [facility] Comment on above: Order Comment: Speci men Type: BLOOD SPECIMENOrdering Facility: [facility] Address: [address] [place] [address] Performed By: #### 5 7021-8 ####[facility] HARDIKWNCLIA [id number] [place] [address] [place] MCV (RBC) [Entitic vol] 87.7 fL Normal 80.0-100.0 [facility] Comment on above: Order Comment: Speci men Type: BLOOD SPECIMENOrdering Facility: [facility] Address: [address] [place] [address] Performed By: #### 5 7021-8 ####[facility]ENTERA [id number] [place] [address] [place] Monocytes (Bld) [#/Vol] 0.40 10*3/uL Normal <0.87 [facility] Comment on above: Order Comment: Speci men Type: BLOOD SPECIMENOrdering Facility: [facility] Address: [address] [place] [address] Performed By: #### 5 7021-8 ####[facility]ENTERA [id number] [place] [address] [place] Monocytes/100 WBC (Bld) 5.5 % Normal [facility] Comment on above: Order Comment: Speci men Type: BLOOD SPECIMENOrdering Facility: [facility] Address: [address] [place] [address] Performed By: #### 5 7021-8 ####[facility] DAYTONLIA [id number] [place] [address] [place] Neutrophils (Bld) [#/Vol] 5.21 10*3/uL Normal 1.45-7.50 [facility] Comment on above: Order Comment: Speci men Type: BLOOD SPECIMENOrdering Facility: [facility] Address: [address] [place] [address] Performed By: #### 5 7021-8 ####[facility] DAYTONLIA [id number] [place] [address] [place] Neutrophils/100 WBC (Bld) 71.9 % Normal [facility] Comment on above: Order Comment: Speci men Type: BLOOD SPECIMENOrdering Facility: [facility] Address: [address] [place] [address] Performed By: #### 5 7021-8 ####[facility]AMINCSHRIN[facility] [id number] [place] [address] [place] Nucleated RBC (Bld) [#/Vol] 10*3/uL Normal <0.01 [facility] Comment on above: Order Comment: Speci men Type: BLOOD SPECIMENOrdering Facility: [facility] Address: [address] [place] [address] Performed By: #### 5 7021-8 ####[facility] [id number] [place] [address] [place] Nucleated RBC/100 WBC (Bld) [Ratio] 0.0 /100 WBC Normal [facility] Comment on above: Order Comment: Speci men Type: BLOOD SPECIMENOrdering Facility: [facility] Address: [address] [place] [address] Performed By: #### 5 7021-8 ####[facility] [id number] [place] [address] [place] Platelet mean volume (Bld) [Entitic vol] 9.2 fL Normal 9.0-12.7 [facility] Comment on above: Order Comment: Speci men Type: BLOOD SPECIMENOrdering Facility: [facility] Address: [address] [place] [address] Performed By: #### 5 7021-8 ####[facility] [id number] [place] [address] [place] Platelets (Bld) [#/Vol] 370 10*3/uL Normal 150-400 [facility] Comment on above: Order Comment: Speci men Type: BLOOD SPECIMENOrdering Facility: [facility] Address: [address] [place] [address] Performed By: #### 5 7021-8 ####[facility] MIAMINCLORENZOA [id number] [place] [address] [place] RBC (Bld) [#/Vol] 3.89 10*6/uL Low 3.90-5.20 [facility] Comment on above: Order Comment: Speci men Type: BLOOD SPECIMENOrdering Facility: [facility] Address: [address] [place] [address] Performed By: #### 5 7021-8 ####[facility]ENTERA [id number] [place] [address] [place] WBC (Bld) [#/Vol] 7.26 10*3/uL Normal 3.70-11.00 [facility] Comment on above: Order Comment: Speci men Type: BLOOD SPECIMENOrdering Facility: [facility] Address: [address] [place] [address] Performed By: #### 5 7021-8 ####[facility]A [id number] [place] [address] [place] CRP SerPl-mCncon 12-12-2024 CRP [Mass/Vol] mg/L Normal <0.9 [facility] Comment on above: Order Comment: Speci men Type: BLOOD SPECIMENOrdering Facility: [facility] Address: [address] [place], [place] [address] Performed By: #### 1 988-5 ####[facility] LABCLIA [id number] [place] [id number] [place] CNPNon 12-06-2024 CNPN Normal [facility] CNOVSPon 12-05-2024 CNOVSP Normal [facility] Urine Cultureon 12-05-2024 URC Below infection leve tameka GNR lactose tennis racket repairer [place] Count 1000-10,[address] [facility] Comment on above: Performed By: #### M 100.7737 ####[facility] [id number] [place], [place], [id number] C-REACTIVE PROTEINon 025 CRP [Mass/Vol] mg/dL [facility] - 0.9 mg/dL [facility] CBC W Auto Differential pane l (Bld)on 12-04-2024 Basophils (Bld) [#/Vol] 0.08 10*3/uL [facility] Basophils/100 WBC (Bld) 1.3 % [facility] Differential cell count method Nom (Bld) Auto [facility] Eosinophils (Bld) [#/Vol] 0.04 10*3/uL [facility] Eosinophils/100 WBC (Bld) 0.7 % [facility] Erythrocyte distribution width (RBC) [Ratio] 15.2 % High 11.5 - 15.0 % [facility] Hematocrit (Bld) [Volume fraction] 33.4 % Low 36.0 - 46.0 % [facility] Hemoglobin (Bld) [Mass/Vol] 11.2 g/dL Low 11.5 - 15.5 g/dL [facility] Immature granulocytes (Bld) [#/Vol] [facility] Immature granulocytes/100 WBC (Bld) 0.3 % [facility] Interpretation and review of laboratory results Abnormal [facility] Lymphocytes (Bld) [#/Vol] 1.42 10*3/uL [facility] Lymphocytes/100 WBC (Bld) 23.9 % [facility] MCH (RBC) [Entitic mass] 29.6 pg 26.0 - 34.0 pg [facility] MCHC (RBC) [Mass/Vol] 33.5 g/dL 30.5 - 36.0 g/dL [facility] MCV (RBC) [Entitic vol] 88.1 fL 80.0 - 100.0 fL [facility] Monocytes (Bld) [#/Vol] 0.51 10*3/uL [facility] Monocytes/100 WBC (Bld) 8.6 % [facility] Neutrophils (Bld) [#/Vol] 3.87 10*3/uL [facility] Neutrophils/100 WBC (Bld) 65.2 % [facility] Nucleated RBC (Bld) [#/Vol] NINF [facility] Nucleated RBC/100 WBC (Bld) [Ratio] 0 % /100 WBC [facility] Platelet mean volume (Bld) [Entitic vol] 9.3 fL 9.0 - 12.7 fL [facility] Platelets (Bld) [#/Vol] 394 10*3/uL [facility] RBC (Bld) [#/Vol] 3.79 10*6/uL Low 3.90 - 5.20 m/uL [facility] WBC (Bld) [#/Vol] 5.94 10*3/uL [facility] Basophils (Bld) [#/Vol] 0.08 10*3/uL Normal <0.11 [facility] Comment on above: Order Comment: Speci men Type: BLOOD SPECIMENOrdering Facility: [facility] Address: [address] [place] [address] Performed By: #### 5 7021-8 ####[facility] [id number] [place] [address] [place] Basophils/100 WBC (Bld) 1.3 % Normal [facility] Comment on above: Order Comment: Speci men Type: BLOOD SPECIMENOrdering Facility: [facility] Address: [address] [place] [address] Performed By: #### 5 7021-8 ####[facility] [id number] [place] [address] [place] Differential cell count method Nom (Bld) Auto Normal [facility] Comment on above: Order Comment: Speci men Type: BLOOD SPECIMENOrdering Facility: [facility] Address: [address] [place] [address] Performed By: #### 5 7021-8 ####[facility] DAYTONLIA [id number] [place] [address] [place] Eosinophils (Bld) [#/Vol] 0.04 10*3/uL Normal <0.46 [facility] Comment on above: Order Comment: Speci men Type: BLOOD SPECIMENOrdering Facility: [facility] Address: [address] [place] [address] Performed By: #### 5 7021-8 ####[facility] ERNESTO [id number] [place] [address] [place] Eosinophils/100 WBC (Bld) 0.7 % Normal [facility] Comment on above: Order Comment: Speci men Type: BLOOD SPECIMENOrdering Facility: [facility] Address: [address] [place] [address] Performed By: #### 5 7021-8 ####[facility] HARDIKKALONANCLIJane [id number] [place] [address] [place] Erythrocyte distribution width (RBC) [Ratio] 15.2 % High 11.5-15.0 [facility] Comment on above: Order Comment: Speci men Type: BLOOD SPECIMENOrdering Facility: [facility] Address: [address] [place] [address] Performed By: #### 5 7021-8 ####[facility]INCA [id number] [place] [address] [place] Hematocrit (Bld) [Volume fraction] 33.4 % Low 36.0-46.0 [facility] Comment on above: Order Comment: Speci men Type: BLOOD SPECIMENOrdering Facility: [facility] Address: [address] [place] [address] Performed By: #### 5 7021-8 ####[facility]INCLIA [id number] [place] [address] [place] Hemoglobin (Bld) [Mass/Vol] 11.2 g/dL Low 11.5-15.5 [facility] Comment on above: Order Comment: Speci men Type: BLOOD SPECIMENOrdering Facility: [facility] Address: [address] [place] [address] Performed By: #### 5 7021-8 ####[facility] MILLWNCLIA [id number] [place] [address] [place] Immature granulocytes (Bld) [#/Vol] 10*3/uL Normal <0.10 [facility] Comment on above: Order Comment: Speci men Type: BLOOD SPECIMENOrdering Facility: [facility] Address: [address] [place] [address] Performed By: #### 5 7021-8 ####[facility]ENTERWNCLIA [id number] [place] [address] [place] Immature granulocytes/100 WBC (Bld) 0.3 % Normal [facility] Comment on above: Order Comment: Speci men Type: BLOOD SPECIMENOrdering Facility: [facility] Address: [address] [place] [address] Performed By: #### 5 7021-8 ####[facility] DAYTONLIA [id number] [place] [address] [place] Lymphocytes (Bld) [#/Vol] 1.42 10*3/uL Normal 1.00-4.00 [facility] Comment on above: Order Comment: Speci men Type: BLOOD SPECIMENOrdering Facility: [facility] Address: [address] [place] [address] Performed By: #### 5 7021-8 ####[facility] CENTERWNCLIA [id number] [place] [address] [place] Lymphocytes/100 WBC (Bld) 23.9 % Normal [facility] Comment on above: Order Comment: Speci men Type: BLOOD SPECIMENOrdering Facility: [facility] Address: [address] [place] [address] Performed By: #### 5 7021-8 ####[facility]INCLIA [id number] [place] [address] [place] MCH (RBC) [Entitic mass] 29.6 pg Normal 26.0-34.0 [facility] Comment on above: Order Comment: Speci men Type: BLOOD SPECIMENOrdering Facility: [facility] Address: [address] [place] [address] Performed By: #### 5 7021-8 ####[facility]INCSHRIN[facility] FOR [facility]IL[facility]EN [id number] [place] [address] [place] MCHC (RBC) [Mass/Vol] 33.5 g/dL Normal 30.5-36.0 [facility] Comment on above: Order Comment: Speci men Type: BLOOD SPECIMENOrdering Facility: [facility] Address: [address] [place] [address] Performed By: #### 5 7021-8 ####[facility]CSHRIN[facility]IL[facility] [id number] [place] [address] [place] MCV (RBC) [Entitic vol] 88.1 fL Normal 80.0-100.0 [facility] Comment on above: Order Comment: Speci men Type: BLOOD SPECIMENOrdering Facility: [facility] Address: [address] [place] [address] Performed By: #### 5 7021-8 ####[facility]CA [id number] [place] [address] [place] Monocytes (Bld) [#/Vol] 0.51 10*3/uL Normal <0.87 [facility] Comment on above: Order Comment: Speci men Type: BLOOD SPECIMENOrdering Facility: [facility] Address: [address] [place] [address] Performed By: #### 5 7021-8 ####[facility]CSHRIN[facility] [id number] [place] Monocytes/100 WBC (Bld) 8.6 % Normal [facility] Comment on above: Order Comment: Speci men Type: BLOOD SPECIMENOrdering Facility: [facility] Address: [address] [place] [address] Performed By: #### 5 7021-8 ####[facility]ENTERA [id number] [place] [address] [place] Neutrophils (Bld) [#/Vol] 3.87 10*3/uL Normal 1.45-7.50 [facility] Comment on above: Order Comment: Speci men Type: BLOOD SPECIMENOrdering Facility: [facility] Address: [address] [place] [address] Performed By: #### 5 7021-8 ####[facility]ENTERA [id number] [place] [address] [place] Neutrophils/100 WBC (Bld) 65.2 % Normal [facility] Comment on above: Order Comment: Speci men Type: BLOOD SPECIMENOrdering Facility: [facility] Address: [address] [place] [address] Performed By: #### 5 7021-8 ####[facility]ENTERA [id number] [place] [address] [place] Nucleated RBC (Bld) [#/Vol] 10*3/uL Normal <0.01 [facility] Comment on above: Order Comment: Speci men Type: BLOOD SPECIMENOrdering Facility: [facility] Address: [address] [place] [address] Performed By: #### 5 7021-8 ####[facility] DAYTONLIA [id number] [place] [address] [place] Nucleated RBC/100 WBC (Bld) [Ratio] 0.0 /100 WBC Normal [facility] Comment on above: Order Comment: Speci men Type: BLOOD SPECIMENOrdering Facility: [facility] Address: [address] [place] [address] Performed By: #### 5 7021-8 ####[facility] HARDIKWNCLIA [id number] [place] [address] [place] Platelet mean volume (Bld) [Entitic vol] 9.3 fL Normal 9.0-12.7 [facility] Comment on above: Order Comment: Speci men Type: BLOOD SPECIMENOrdering Facility: [facility] Address: [address] [place] [address] Performed By: #### 5 7021-8 ####[facility] MIAMIJENNIFERLIA [id number] [place] [address] [place] Platelets (Bld) [#/Vol] 394 10*3/uL Normal 150-400 [facility] Comment on above: Order Comment: Speci men Type: BLOOD SPECIMENOrdering Facility: [facility] Address: [address] [place] [address] Performed By: #### 5 7021-8 ####[facility] DAYTONLIA [id number] [place] [address] [place] RBC (Bld) [#/Vol] 3.79 10*6/uL Low 3.90-5.20 [facility] Comment on above: Order Comment: Speci men Type: BLOOD SPECIMENOrdering Facility: [facility] Address: [address] [place] [address] Performed By: #### 5 7021-8 ####[facility] DAYTONLIA [id number] [place] [address] [place] WBC (Bld) [#/Vol] 5.94 10*3/uL Normal 3.70-11.00 [facility] Comment on above: Order Comment: Speci men Type: BLOOD SPECIMENOrdering Facility: [facility] Address: [address] [place] [address] Performed By: #### 5 7021-8 ####[facility] MI[facility]INCLIA [id number] [place] [address] [place] CRP SerPl-mCncon 12-04-2024 CRP [Mass/Vol] mg/L Normal <0.9 [facility] Comment on above: Order Comment: Speci men Type: BLOOD SPECIMENOrdering Facility: [facility] Address: [address] [place] [address] Performed By: #### 1 988-5 ####[facility] LABCLIA [id number] [place] [address] [place] CRP [Mass/Vol]on 12-04-2024 Interpretation and review of laboratory results Normal [facility] Comprehensive metabolic 2000 panelOrdered By: Zaida Rice on 12-04-2024 Albumin [Mass/Vol] 4.3 g/dL 3.9 - 4.9 g/dL [facility] ALP [Catalytic activity/Vol] 77 U/L 34 - 123 U/L [facility] ALT [Catalytic activity/Vol] 15 U/L 7 - 38 U/L [facility] Anion gap [Moles/Vol] 12 mmol/L 8 - 15 mmol/L [facility] AST [Catalytic activity/Vol] 14 U/L 13 - 35 U/L [facility] Bilirubin [Mass/Vol] 0.6 mg/dL 0.2 - 1 .3 mg/dL [facility] Calcium [Mass/Vol] 9.4 mg/dL 8.5 - 10. 2 mg/dL [facility] Chloride [Moles/Vol] 97 mmol/L Low 98 - 10 7 mmol/L [facility] CO2 [Moles/Vol] 22 mmol/L 22 - 30 mmol/L [facility] Creatinine [Mass/Vol] 0.69 mg/dL 0.58 - 0.96 mg/dL [facility] GFR/1.73 sq M.predicted among non-blacks MDRD (S/P/Bld) [Vol rate/Area] 88 mL/min/{1.73_m2} - PINF [facility] Comment on above: Estimated Glomerular Filtration Rate (eGFR) is calculated using the 2020 CKD-EPI creatinine equation. This equation utilizes serum creatinine, sex, and age as parameters. The creatinine assay has traceable calibration to isotope dilution-mass spectrometry. Refer to KDIGO guidelines for clinical interpretation. In patients with unstable renal function, e.g. those with acute kidney injury, the eGFR may not accurately reflect actual GFR. Glucose [Mass/Vol] 97 mg/dL 74 - 99 mg/dL [facility] Comment on above: The [place] Diabete s Association (ADA) provides guidance for cutoff values for fasting glucose and random glucose. The ADA defines fasting as no caloric intake for at least 8 hours. Fasting plasma glucose results between 100 to 125 mg/dL indicate increased risk for diabetes (prediabetes). Fasting plasma glucose results greater than or equal to 126 mg/dL meet the criteria for diagnosis of diabetes. In the absence of unequivocal hyperglycemia, results should be confirmed by repeat testing. In a patient with classic symptoms of hyperglycemia or hyperglycemic crisis, random plasma glucose results greater than or equal to 200 mg/dL meet the criteria for diagnosis of diabetes. Reference: Standards of Medical Care in Diabetes 2016, [place] Diabetes Association. Diabetes Care. 2016.39(Suppl 1). Interpretation and review of laboratory results Abnormal [facility] Potassium [Moles/Vol] 4.2 mmol/L 3.7 - 5.1 mmol/L [facility] Protein [Mass/Vol] 6.7 g/dL 6.3 - 8.0 g/dL [facility] Sodium [Moles/Vol] 131 mmol/L Low 136 - 144 mmol/L [facility] Urea nitrogen [Mass/Vol] 15 mg/dL 7 - 21 mg/dL [facility] Comprehensive metabolic 2000 panelon 12-04-2024 Albumin [Mass/Vol] 4.3 g/dL Normal 3.9-4.9 [facility] Comment on above: Order Comment: Speci men Type: BLOOD SPECIMENOrdering Facility: [facility] Address: [address] [place] [address] Performed By: #### 2 4323-8 ####[facility] JOIUNIV[facility] [id number] [place] [address] [place] ALP [Catalytic activity/Vol] 77 U/L Normal 34-123 [facility] Comment on above: Order Comment: Speci men Type: BLOOD SPECIMENOrdering Facility: [facility] Address: [address] [place] [address] Performed By: #### 2 4323-8 ####[facility] MILLTOWNCLIA [id number] [place] [address] [place] ALT [Catalytic activity/Vol] 15 U/L Normal 7-38 [facility] Comment on above: Order Comment: Speci men Type: BLOOD SPECIMENOrdering Facility: [facility] Address: [address] [place] [address] Performed By: #### 2 4323-8 ####[facility] MILLTOWNCLIA [id number] [place] [address] [place] Anion gap [Moles/Vol] 12 mmol/L Normal 8-15 [facility] Comment on above: Order Comment: Speci men Type: BLOOD SPECIMENOrdering Facility: [facility] Address: [address] [place] [address] Performed By: #### 2 4323-8 ####[facility] CENTERWNCLIA [id number] [place] [address] [place] AST [Catalytic activity/Vol] 14 U/L Normal 13-35 [facility] Comment on above: Order Comment: Speci men Type: BLOOD SPECIMENOrdering Facility: [facility] Address: [address] [place] [address] Performed By: #### 2 4323-8 ####[facility]ITALTOWNCLIA [id number] [place] [address] [place] Bilirubin [Mass/Vol] 0.6 mg/dL Normal 0.2-1.3 [facility] Comment on above: Order Comment: Speci men Type: BLOOD SPECIMENOrdering Facility: [facility] Address: [address] [place] [address] Performed By: #### 2 4323-8 ####[facility] CENTERWNCLIA [id number] [place] [address] [place] Calcium [Mass/Vol] 9.4 mg/dL Normal 8.5-10.2 [facility] Comment on above: Order Comment: Speci men Type: BLOOD SPECIMENOrdering Facility: [facility] Address: [address] [place] [address] Performed By: #### 2 4323-8 ####[facility] MILLWNCLIA [id number] [place] [address] [place] Chloride [Moles/Vol] 97 mmol/L Low 98-107 [facility] Comment on above: Order Comment: Speci men Type: BLOOD SPECIMENOrdering Facility: [facility] Address: [address] [place] [address] Performed By: #### 2 4323-8 ####[facility]INCLI [id number] [place] [address] [place] CO2 [Moles/Vol] 22 mmol/L Normal 22-30 [facility] Comment on above: Order Comment: Speci men Type: BLOOD SPECIMENOrdering Facility: [facility] Address: [address] [place] [address] Performed By: #### 2 4323-8 ####[facility] DAYTONLIA [id number] [place] [address] [place] Creatinine [Mass/Vol] 0.69 mg/dL Normal 0.58-0.96 [facility] Comment on above: Order Comment: Speci men Type: BLOOD SPECIMENOrdering Facility: [facility] Address: [address] [place] [address] Performed By: #### 2 4323-8 ####[facility]ENTERA [id number] [place] [address] [place] Creatinine and Glomerular filtration rate.predicted panel (S/P/Bld) 88 mL/min/1.73m??? Normal >=60 [facility] Comment on above: Order Comment: Speci men Type: BLOOD SPECIMENOrdering Facility: [facility] Address: [address] [place] [id number] Result Comment: Amina mated Glomerular Filtration Rate (eGFR) is calculated using the 2020 CKD-EPI creatinine equation. This equation utilizes serum creatinine, sex, and age as parameters. The creatinine assay has traceable calibration to isotope dilution-mass spectrometry. Refer to KDIGO guidelines for clinical interpretation. In patients with unstable renal function, e.g. those with acute kidney injury, the eGFR may not accurately reflect actual GFR. Performed By: #### 2 4323-8 ####[facility] [id number] [place] [address] [place] Glucose [Mass/Vol] 97 mg/dL Normal 74-99 [facility] Comment on above: Order Comment: Katrina li Type: BLOOD SPECIMENOrdering Facility: [facility] Address: [address] [place] [address] Result Comment: The [place] Diabetes Association (ADA) provides guidance for cutoff values for fasting glucose and random glucose. The ADA defines fasting as no caloric intake for at least 8 hours. Fasting plasma glucose results between 100 to 125 mg/dL indicate increased risk for diabetes (prediabetes).Fasting plasma glucose results greater than or equal to 126 mg/dL meet the criteria for diagnosis of diabetes. In the absence of unequivocal hyperglycemia, results should be confirmed by repeat testing. In a patient with classic symptoms of hyperglycemia or hyperglycemic crisis, random plasma glucose results greater than or equal to 200 mg/dL meet the criteria for diagnosis of diabetes.Reference: Standards of Medical Care in Diabetes 2016, [place] Diabetes Association. Diabetes Care. 2016.39(Suppl 1). Performed By: #### 2 4323-8 ####[facility] [id number] [place] [address] [place] Potassium [Moles/Vol] 4.2 mmol/L Normal 3.7-5.1 [facility] Comment on above: Order Comment: Katrina li Type: BLOOD SPECIMENOrdering Facility: [facility] Address: [address] [place] [id number] Performed By: #### 2 4323-8 ####[facility] JOI MILLTOWNCLIA [id number] [place] [address] [place] Protein [Mass/Vol] 6.7 g/dL Normal 6.3-8.0 [facility] Comment on above: Order Comment: Speci men Type: BLOOD SPECIMENOrdering Facility: [facility] Address: [address] [place] [address] Performed By: #### 2 4323-8 ####[facility]INCLIA [id number] [place] [address] [place] Sodium [Moles/Vol] 131 mmol/L Low 136-144 [facility] Comment on above: Order Comment: Speci men Type: BLOOD SPECIMENOrdering Facility: [facility] Address: [address] [place] [address] Performed By: #### 2 4323-8 ####[facility] MI[facility]INCLIA [id number] [place] [address] [place] Urea nitrogen [Mass/Vol] 15 mg/dL Normal 7-21 [facility] Comment on above: Order Comment: Speci men Type: BLOOD SPECIMENOrdering Facility: [facility] Address: [address] [place] [address] Performed By: #### 2 4323-8 ####[facility]INCLIA [id number] [place] [address] [place] Urine cultureOrdered By: Chase Guillen on 12-03-2024 Bacteria identified Cx Nom (U) 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 Laboratory - Chemistry and C hemistry - challengeOrdered By: Marika Guillen on 12-01-2024 Bilirubin Ql (U) Negative [facility] Glucose Ql (U) Negative [facility] Ketones Ql (U) Negative [facility] pH (U) 6.0 [pH] [facility] Specific gravity (U) [Rel density] 1.015 [facility] Urobilinogen (U) [Mass/Vol] Negative [facility] Laboratory - Hematology and Cell countsOrdered By: Marika Guillen on 12-01-2024 Hemoglobin Ql (U) Negative [facility] Laboratory - Specimen inform ationOrdered By: Marika Guillen on 12-01-2024 Clarity (U) Cloudy [facility] Color (U) Yellow [facility] Laboratory - UrinalysisOrder ed By: Marika Guillen on 12-01-2024 Nitrite Ql (U) Negative [facility] Protein Ql (U) Trace [facility] No Panel InformationOrdered By: Marika Guillen on 12-01-[address] [facility] Urine Non-Hemolyzed Blood Small [facility] Urgent Care Visit Reporton 0 12-01-2024 [address] Report [facility] [address], [address] [place] [id number] OFFICE VISIT Date of Service: 12/01/24 MR#: [id number] Acct: [id number] Name: DANETTE BISHOP Rep #: [id number] : 1945 Provider: TYLER Guillen Age/Sex: 79/F Location: [facility] Status: Signed Intake Vital Signs 11/20/24 09:13 12/01/24 09:01 Height 5 ft 1 in BP 102/58 L Blood Pressure Location Rt brachial Position Sitting Respiration 16 Pulse 86 Pulse Source NIBP Temp 98.2 F Temp Source Oral Pulse Oximetry (%) 97 Oxygen Delivery Method room air Intake Visit Reasons: CONCERN FOR UTI Chief Complaint: dysuria, incontinence, frequency Medical Assembler Required: No Is patient in pain?: No Allergies shellfish derived Allergy (Severe, Verified 12/01/24 09:06) throat swelling adhesive tape Adverse Reaction (Verified 12/01/24 09:06) Rash Is last menstrual period known: No Post menopausal: Yes Patient : No Have you fallen in the past year?: No Nurse's Note: dysuria, incontinence, frequency x 4 days. denies abd pain, fever. concern for UTI. taking Doxy for discitis. [facility] Medical History Chronic back pain Breast cancer Liver cancer Wears glasses Post-menopausal Cancer Depression Anxiety Alcohol use Thyroid disease Anemia Easy bruising Excessive bleeding Back pain TIA (transient ischemic attack) History of hiatal hernia History of ulceration History of IBS Gastric reflux Former smoker Shortness of breath on exertion History of echocardiogram Hypertension History of irregular heartbeat History of rheumatic fever LUQ pain 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 Epigastric abdominal pain Liver metastasis 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 Wears dentures Sleep apnea History of TIA (transient ischemic attack) History of thyroid disease Back pain Neck pain Severe headache Stomach ulcer History of cancer Arthritis History of hypertension Surgical History History of lumpectomy History of back surgery History of thyroid surgery Family History Mother Colon cancer passed from recurrence Thyroid disorder Father Hypertension CVA (cerebral vascular accident) Sister Breast cancer, Onset Age: 87 Aunt Colon cancer paternal Social History household members: spouse Smoking Status: Former smoker how long ago did patient quit smoking: >50 years ago; off and on for 2 years, socially only alcohol intake: current alcohol intake frequency: 0-2 drinks per day Alcohol type: wine details: socially substance use type: does not use additional social history: denies vaping, denies marijuana, denies edibles, denies aspirin and ibuprofen use HPI HPI Chief Complaint: dysuria, incontinence, frequency Details: DANETTE BISHOP, is a 79 F who presents to the office today for ? uti -sx started Tuesday or -+ urgency, frequency, worsening incontinence, pelvic pressure. Has hx of chronic back pain- back pain is not worse- no abd pain -chills yesterday no fever -no blood or discharge -tried so far drinking water -currently on doxycycline for discitis ROS Const Constitutional: Positive for other (ROS negative x6 except what was placed in HPI) Exam Const General: cooperative and no acute distress Orientation: alert and oriented x3 Resp Effort Inspection: normal respiratory effort, able to speak in complete sentences and symmetric chest movement Auscultation: Bilateral: Clear to Auscultation, Left: Clear to Auscultation and Right: Clear to Auscultation Cardio Rate: regular rate Rhythm: regular rhythm Heart Sounds: S1 normal and S2 normal GI Auscultation: normal bowel sounds Palpation: soft and no hepatosplenomegaly Other: -no CVA tenderness -some abdominal/pevlic pressure with palpation but no pain Neuro General: patient alert, patient awake and patient oriented x3 Extrem General: normal to inspection and full ROM Psych Appearance: grossly normal Mental Status: mental status grossly normal Attitude: cooperative Thought Process: normal Thought Content: normal Judgment: judgment good Results POC Urinalysis Dip (Clinic) Office Urine Color Yellow Last Edit by Elena Kelly on 12/01/24 09:04 Office Urine Clarity Cloudy Last Edit by Elena Kelly on 12/01/24 09:04 Office Urine Glucose Negative Last Edit by Elena Kelly on 12/01/24 09:04 Office Urine Ketones Negative Last Edit by Elena Kelly on 12/01/24 09:04 Off Ur Spec [place] 1.015 Last Edit by Elena Kelly on 12/01/24 09:04 Office Urine pH 6.0 Last Edit (more content not included)... Normal [facility] Bone density reportOrdered B y: Juan Lagunas on 11-29-2024 Study report Skeletal system DXA [facility] Imaging Services [address] [place] [address] Dexa Bone Density Study MR#: [id number] Acct: [id number] Name: DANETTE BISHOP Rep #: [id number] : 1945 F 79 From: Tu Lagunas MD PCP: Dr. Eveline Argueta DO Status: REG CLI Study:Dexa Bone Density Study Date of Exam: 11/28/24 Exam# [id number] Ordering Dr: Lorenzo Argueta sa, DO PROCEDURE: DEXA BONE DENSITY STUDY 11/28/2024 REASON FOR EXAM: F, age 79 y/o . Postmenopausal. TECHNIQUE: DEXA BONE DENSITY STUDY COMPARISON: Prior study dated October 08, 2021. FINDINGS: BMD and T-SCORES Lumbar spine: 0.975 g/cm2, T-score 0.0 Levels: L1 through L4 Change from prior: Loss of 10.9%. Left femoral neck: 0.569 g/cm2, T-score -2.5 Femoral neck comparison data not recommended for monitoring change. Left total hip: 0.747 g/cm2, T-score -1.6 Change from prior: Loss of 8.8%. Right femoral neck: 0.552 g/cm2, T-score -2.6 Femoral neck comparison data not recommended for monitoring change. Right total hip: 0.745 g/cm2, T-score -1.6 Change from prior: Loss of 6.2%. The World Health Organization has defined the following categories based on bonedensity: Normal bone density: T-score equal to or greater than -1.0 Osteopenia: T-score between -1.0 and -2.5 Osteoporosis: T-score equal to or less than -2.5 The patient does meet the pharmacological treatment recommendations for prevention of osteoporosis. BD/Dexa Bone Density Study IMPRESSION: OSTEOPOROSIS. Recommend follow-up as clinically warranted. Reading Location: YMY-TNVMYRCTO-D CC: Dr. Eveline Argueta DO; Dr. Christiano Centeno DO ~ Home Care Liaison: Signed [facility] C-REACTIVE PROTEINon 025 CRP [Mass/Vol] mg/dL [facility] - 0.9 mg/dL [facility] CBC W Auto Differential pane l (Bld)on 11-28-2024 Basophils (Bld) [#/Vol] 0.08 10*3/uL [facility] Basophils/100 WBC (Bld) 0.7 % [facility] Differential cell count method Nom (Bld) Auto [facility] Eosinophils (Bld) [#/Vol] 0.08 10*3/uL [facility] Eosinophils/100 WBC (Bld) 0.7 % [facility] Erythrocyte distribution width (RBC) [Ratio] 15.7 % High 11.5 - 15.0 % [facility] Hematocrit (Bld) [Volume fraction] 37.2 % 36.0 - 46.0 % [facility] Hemoglobin (Bld) [Mass/Vol] 12 g/dL 11.5 - 15.5 g/dL [facility] Immature granulocytes (Bld) [#/Vol] 0.06 10*3/uL [facility] Immature granulocytes/100 WBC (Bld) 0.5 % [facility] Interpretation and review of laboratory results Abnormal [facility] Lymphocytes (Bld) [#/Vol] 1.2 10*3/uL [facility] Lymphocytes/100 WBC (Bld) 10.9 % [facility] MCH (RBC) [Entitic mass] 29.3 pg 26.0 - 34.0 pg [facility] MCHC (RBC) [Mass/Vol] 32.3 g/dL 30.5 - 36.0 g/dL [facility] MCV (RBC) [Entitic vol] 91 fL 80.0 - 100.0 fL [facility] Monocytes (Bld) [#/Vol] 0.52 10*3/uL [facility] Monocytes/100 WBC (Bld) 4.7 % [facility] Neutrophils (Bld) [#/Vol] 9.04 10*3/uL High [facility] Neutrophils/100 WBC (Bld) 82.5 % [facility] Nucleated RBC (Bld) [#/Vol] [facility] Nucleated RBC/100 WBC (Bld) [Ratio] 0 % /100 WBC [facility] Platelet mean volume (Bld) [Entitic vol] 9.8 fL 9.0 - 12.7 fL [facility] Platelets (Bld) [#/Vol] 426 10*3/uL High [facility] RBC (Bld) [#/Vol] 4.09 10*6/uL 3.90 - 5.20 m/uL [facility] WBC (Bld) [#/Vol] 10.98 10*3/uL [facility] Basophils (Bld) [#/Vol] 0.08 10*3/uL Normal <0.11 [facility] Comment on above: Order Comment: Speci men Type: BLOOD SPECIMENOrdering Facility: [facility] Address: [address] [place] [address] Performed By: #### 5 7021-8 ####[facility] LABORATORYCLIA [id number] [place], [place] [id number] [place] [address] [place] Basophils/100 WBC (Bld) 0.7 % Normal [facility] Comment on above: Order Comment: Speci men Type: BLOOD SPECIMENOrdering Facility: [facility] Address: [address] [place] [address] Performed By: #### 5 7021-8 ####[facility] LABORATORYCLIA [id number] [address] [place] Differential cell count method Nom (Bld) Auto Normal [facility] Comment on above: Order Comment: Speci men Type: BLOOD SPECIMENOrdering Facility: [facility] Address: [address] [place] [address] Performed By: #### 5 7021-8 ####[facility] LABORATORYCLIA [id number] [address] [place] Eosinophils (Bld) [#/Vol] 0.08 10*3/uL Normal <0.46 [facility] Comment on above: Order Comment: Speci men Type: BLOOD SPECIMENOrdering Facility: [facility] Address: [address] [place] [address] Performed By: #### 5 7021-8 ####[facility] LABORATORYCLIA [id number] [address] Eosinophils/100 WBC (Bld) 0.7 % Normal [facility] Comment on above: Order Comment: Speci men Type: BLOOD SPECIMENOrdering Facility: [facility] Address: [address] [place] [address] Performed By: #### 5 7021-8 ####[facility] LABORATORYCLIA [id number] [address] Erythrocyte distribution width (RBC) [Ratio] 15.7 % High 11.5-15.0 [facility] Comment on above: Order Comment: Speci men Type: BLOOD SPECIMENOrdering Facility: [facility] Address: [address] [place] [address] Performed By: #### 5 7021-8 ####[facility] LABORATORYCLIA [id number] [address] [place] Hematocrit (Bld) [Volume fraction] 37.2 % Normal 36.0-46.0 [facility] Comment on above: Order Comment: Speci men Type: BLOOD SPECIMENOrdering Facility: [facility] Address: [address] [place] [address] Performed By: #### 5 7021-8 ####[facility]ORATORYCLIA [id number] [address] [place] Hemoglobin (Bld) [Mass/Vol] 12.0 g/dL Normal 11.5-15.5 [facility] Comment on above: Order Comment: Speci men Type: BLOOD SPECIMENOrdering Facility: [facility] Address: [address] [place] [address] Performed By: #### 5 7021-8 ####[facility] LABORATORYCLIA [id number] [address] [place] Immature granulocytes (Bld) [#/Vol] 0.06 10*3/uL Normal <0.10 [facility] Comment on above: Order Comment: Speci men Type: BLOOD SPECIMENOrdering Facility: [facility] Address: [address] [place] [address] Performed By: #### 5 7021-8 ####[facility] LABORATORYCLIA [id number] [address] [place] Immature granulocytes/100 WBC (Bld) 0.5 % Normal [facility] Comment on above: Order Comment: Speci men Type: BLOOD SPECIMENOrdering Facility: [facility] Address: [address] [place] [address] Performed By: #### 5 7021-8 ####[facility] LABORATORYCLIA [id number] [place] [address] [place] Lymphocytes (Bld) [#/Vol] 1.20 10*3/uL Normal 1.00-4.00 [facility] Comment on above: Order Comment: Speci men Type: BLOOD SPECIMENOrdering Facility: [facility] Address: [address] [place] [address] Performed By: #### 5 7021-8 ####[facility] LABORATORYCLIA [id number] [address] Lymphocytes/100 WBC (Bld) 10.9 % Normal [facility] Comment on above: Order Comment: Speci men Type: BLOOD SPECIMENOrdering Facility: [facility] Address: [address] [place] [address] Performed By: #### 5 7021-8 ####[facility] LABORATORYCLIA [id number] [address] MCH (RBC) [Entitic mass] 29.3 pg Normal 26.0-34.0 [facility] Comment on above: Order Comment: Speci men Type: BLOOD SPECIMENOrdering Facility: [facility] Address: [address] [place] [address] Performed By: #### 5 7021-8 ####[facility] LABORATORYCLIA [id number] [address] MCHC (RBC) [Mass/Vol] 32.3 g/dL Normal 30.5-36.0 [facility] Comment on above: Order Comment: Speci men Type: BLOOD SPECIMENOrdering Facility: [facility] Address: [address] [place] [address] Performed By: #### 5 7021-8 ####[facility] LABORATORYCLIA [id number] [address] STATES OF [facility] MCV (RBC) [Entitic vol] 91.0 fL Normal 80.0-100.0 [facility] Comment on above: Order Comment: Speci men Type: BLOOD SPECIMENOrdering Facility: [facility] Address: [address] [place] [address] Performed By: #### 5 7021-8 ####[facility] LABORATORYCLIA [id number] [address] Monocytes (Bld) [#/Vol] 0.52 10*3/uL Normal <0.87 [facility] Comment on above: Order Comment: Speci men Type: BLOOD SPECIMENOrdering Facility: [facility] Address: [address] [place] [address] Performed By: #### 5 7021-8 ####[facility]ORATORYCLIA [id number] [place] [id number] [place] Monocytes/100 WBC (Bld) 4.7 % Normal [facility] Comment on above: Order Comment: Speci men Type: BLOOD SPECIMENOrdering Facility: [facility] Address: [address] [place] [address] Performed By: #### 5 7021-8 ####[facility] LABORATORYCLIA [id number] [place] [address] [place] Neutrophils (Bld) [#/Vol] 9.04 10*3/uL High 1.45-7.50 [facility] Comment on above: Order Comment: Speci men Type: BLOOD SPECIMENOrdering Facility: [facility] Address: [address] [place] [address] Performed By: #### 5 7021-8 ####[facility]ORATORYCLIA [id number] [address] [place] Neutrophils/100 WBC (Bld) 82.5 % Normal [facility] Comment on above: Order Comment: Speci men Type: BLOOD SPECIMENOrdering Facility: [facility] Address: [address] [place] [address] Performed By: #### 5 7021-8 ####[facility]ORATORYCLIA [id number] [place] [id number] [place] Nucleated RBC (Bld) [#/Vol] 10*3/uL Normal <0.01 [facility] Comment on above: Order Comment: Speci men Type: BLOOD SPECIMENOrdering Facility: [facility] Address: [address] [place] [address] Performed By: #### 5 7021-8 ####[facility]ORATORYCLIA [id number] [place] [address] [place] Nucleated RBC/100 WBC (Bld) [Ratio] 0.0 /100 WBC Normal [facility] Comment on above: Order Comment: Speci men Type: BLOOD SPECIMENOrdering Facility: [facility] Address: [address] [place] [address] Performed By: #### 5 7021-8 ####[facility] LABORATORYCLIA [id number] [address] [place] Platelet mean volume (Bld) [Entitic vol] 9.8 fL Normal 9.0-12.7 [facility] Comment on above: Order Comment: Speci men Type: BLOOD SPECIMENOrdering Facility: [facility] Address: [address] [place] [address] Performed By: #### 5 7021-8 ####[facility] LABORATORYCLIA [id number] [address] [place] Platelets (Bld) [#/Vol] 426 10*3/uL High 150-400 [facility] Comment on above: Order Comment: Speci men Type: BLOOD SPECIMENOrdering Facility: [facility] Address: [address] [place] [address] Performed By: #### 5 7021-8 ####[facility] LABORATORYCLIA [id number] [address] [place] RBC (Bld) [#/Vol] 4.09 10*6/uL Normal 3.90-5.20 [facility] Comment on above: Order Comment: Speci men Type: BLOOD SPECIMENOrdering Facility: [facility] Address: [address] [place] [address] Performed By: #### 5 7021-8 ####[facility] LABORATORYCLIA [id number] [address] [place] WBC (Bld) [#/Vol] 10.98 10*3/uL Normal 3.70-11.00 [facility] Comment on above: Order Comment: Speci men Type: BLOOD SPECIMENOrdering Facility: [facility] Address: [address] [place] [address] Performed By: #### 5 7021-8 ####[facility] LABORATORYCLIA [id number] [place] [address] [place] CNCOon 11-28-2024 CNCO Letter Text Normal [facility] CNOVon 11-28-2024 CNOV Normal [facility] CRP SerPl-mCncon 11-28-2024 CRP [Mass/Vol] mg/L Normal <0.9 [facility] Comment on above: Order Comment: Speci men Type: BLOOD SPECIMENOrdering Facility: [facility] Address: [facility] [place] [address] Performed By: #### 1 988-5 ####[facility] LABORATORYCLIA [id number] [place] [address] [place] CRP [Mass/Vol]on 11-28-2024 Interpretation and review of laboratory results Normal [facility] Dexa Bone Density Studyon Dexa Bone Density Study [facility] Imaging Services [address] [place] [address] [id number] Dexa Bone Density Study MR#: [id number] Acct: [id number] Name: DANETTE BISHOP Rep #: [id number] : 1945 F 79 From: Juan wise MD PCP: Dr. Eveline Argueta, Status: [facility] CLI Study: Dexa Bone Density Study Date of Exam: 11/28/24 Exam# [id number] Ordering Dr: Eveline Argueta DO PROCEDURE: DEXA BONE DENSITY STUDY 11/28/2024 REASON FOR EXAM: F, age 79 y/o . Postmenopausal. TECHNIQUE: DEXA BONE DENSITY STUDY COMPARISON: Prior study dated October 08, 2021. FINDINGS: BMD and T-SCORES Lumbar spine: 0.975 g/cm2, T-score 0.0 Levels: L1 through L4 Change from prior: Loss of 10.9%. Left femoral neck: 0.569 g/cm2, T-score -2.5 Femoral neck comparison data not recommended for monitoring change. Left total hip: 0.747 g/cm2, T-score -1.6 Change from prior: Loss of 8.8%. Right femoral neck: 0.552 g/cm2, T-score -2.6 Femoral neck comparison data not recommended for monitoring change. Right total hip: 0.745 g/cm2, T-score -1.6 Change from prior: Loss of 6.2%. The World Health Organization has defined the following categories based on bone density: Normal bone density: T-score equal to or greater than -1.0 Osteopenia: T-score between -1.0 and -2.5 Osteoporosis: T-score equal to or less than -2.5 The patient does meet the pharmacological treatment recommendations for prevention of osteoporosis. BD/Dexa Bone Density Study IMPRESSION: OSTEOPOROSIS. Recommend follow-up as clinically warranted. Reading Location: ARLINE CC: Dr. Eveline Argueta, DO; Dr. Christiano Centeno, DO Home Care Liaison: Signed [facility] CNPNon 11-20-2024 CNPN Normal [facility] CBC W Auto Differential pane l (Bld)on 11-14-2024 Basophils (Bld) [#/Vol] 0.09 10*3/uL [facility] Basophils/100 WBC (Bld) 1.3 % [facility] Differential cell count method Nom (Bld) Auto [facility] Eosinophils (Bld) [#/Vol] 0.05 10*3/uL [facility] Eosinophils/100 WBC (Bld) 0.7 % [facility] Erythrocyte distribution width (RBC) [Ratio] 16 % High 11.5 - 15.0 % [facility] Hematocrit (Bld) [Volume fraction] 34.1 % Low 36.0 - 46.0 % [facility] Hemoglobin (Bld) [Mass/Vol] 11.4 g/dL Low 11.5 - 15.5 g/dL [facility] Immature granulocytes (Bld) [#/Vol] [facility] Immature granulocytes/100 WBC (Bld) 0.3 % [facility] Interpretation and review of laboratory results Abnormal [facility] Lymphocytes (Bld) [#/Vol] 1.24 10*3/uL [facility] Lymphocytes/100 WBC (Bld) 17.5 % [facility] MCH (RBC) [Entitic mass] 29.8 pg 26.0 - 34.0 pg [facility] MCHC (RBC) [Mass/Vol] 33.4 g/dL 30.5 - 36.0 g/dL [facility] MCV (RBC) [Entitic vol] 89 fL 80.0 - 100.0 fL [facility] Monocytes (Bld) [#/Vol] 0.4 10*3/uL [facility] Monocytes/100 WBC (Bld) 5.6 % [facility] Neutrophils (Bld) [#/Vol] 5.29 10*3/uL [facility] Neutrophils/100 WBC (Bld) 74.6 % [facility] Nucleated RBC (Bld) [#/Vol] NINF [facility] Nucleated RBC/100 WBC (Bld) [Ratio] 0 % /100 WBC [facility] Platelet mean volume (Bld) [Entitic vol] 9.1 fL 9.0 - 12.7 fL [facility] Platelets (Bld) [#/Vol] 391 10*3/uL [facility] RBC (Bld) [#/Vol] 3.83 10*6/uL Low 3.90 - 5.20 m/uL [facility] WBC (Bld) [#/Vol] 7.09 10*3/uL [facility] Basophils (Bld) [#/Vol] 0.09 10*3/uL Normal <0.11 [facility] Comment on above: Order Comment: Speci men Type: BLOOD SPECIMENOrdering Facility: [facility] Address: [address] [place] [address] Performed By: #### 5 7021-8 ####[facility] [id number] [place] [address] [place] Basophils/100 WBC (Bld) 1.3 % Normal [facility] Comment on above: Order Comment: Speci men Type: BLOOD SPECIMENOrdering Facility: [facility] Address: [address] [place] [address] Performed By: #### 5 7021-8 ####[facility] [id number] [place] [address] [place] Differential cell count method Nom (Bld) Auto Normal [facility] Comment on above: Order Comment: Speci men Type: BLOOD SPECIMENOrdering Facility: [facility] Address: [address] [place] [address] Performed By: #### 5 7021-8 ####[facility] HARDIKKALONANCLORENZO [id number] [place] [address] [place] Eosinophils (Bld) [#/Vol] 0.05 10*3/uL Normal <0.46 [facility] Comment on above: Order Comment: Speci men Type: BLOOD SPECIMENOrdering Facility: [facility] Address: [address] [place] [address] Performed By: #### 5 7021-8 ####[facility]INCS[facility] [id number] [place] [address] [place] Eosinophils/100 WBC (Bld) 0.7 % Normal [facility] Comment on above: Order Comment: Speci men Type: BLOOD SPECIMENOrdering Facility: [facility] Address: [address] [place] [address] Performed By: #### 5 7021-8 ####[facility] [id number] [place] [address] [place] Erythrocyte distribution width (RBC) [Ratio] 16.0 % High 11.5-15.0 [facility] Comment on above: Order Comment: Speci men Type: BLOOD SPECIMENOrdering Facility: [facility] Address: [address] [place] [address] Performed By: #### 5 7021-8 ####[facility]INCA [id number] [place] [address] [place] Hematocrit (Bld) [Volume fraction] 34.1 % Low 36.0-46.0 [facility] Comment on above: Order Comment: Speci men Type: BLOOD SPECIMENOrdering Facility: [facility] Address: [address] [place] [address] Performed By: #### 5 7021-8 ####[facility]INCLIA [id number] [place] [address] [place] Hemoglobin (Bld) [Mass/Vol] 11.4 g/dL Low 11.5-15.5 [facility] Comment on above: Order Comment: Speci men Type: BLOOD SPECIMENOrdering Facility: [facility] Address: [address] [place] [address] Performed By: #### 5 7021-8 ####[facility]INCLIA [id number] [place] [address] [place] Immature granulocytes (Bld) [#/Vol] 10*3/uL Normal <0.10 [facility] Comment on above: Order Comment: Speci men Type: BLOOD SPECIMENOrdering Facility: [facility] Address: [address] [place] [address] Performed By: #### 5 7021-8 ####[facility] [id number] [place] [address] [place] Immature granulocytes/100 WBC (Bld) 0.3 % Normal [facility] Comment on above: Order Comment: Speci men Type: BLOOD SPECIMENOrdering Facility: [facility] Address: [address] [place] [address] Performed By: #### 5 7021-8 ####[facility] DAYTONLIA [id number] [place] [address] [place] Lymphocytes (Bld) [#/Vol] 1.24 10*3/uL Normal 1.00-4.00 [facility] Comment on above: Order Comment: Speci men Type: BLOOD SPECIMENOrdering Facility: [facility] Address: [address] [place] [address] Performed By: #### 5 7021-8 ####[facility]INCLI [id number] [place] [address] [place] Lymphocytes/100 WBC (Bld) 17.5 % Normal [facility] Comment on above: Order Comment: Speci men Type: BLOOD SPECIMENOrdering Facility: [facility] Address: [address] [place] [address] Performed By: #### 5 7021-8 ####[facility] MIAMIRAFFY [id number] [place] [address] [place] MCH (RBC) [Entitic mass] 29.8 pg Normal 26.0-34.0 [facility] Comment on above: Order Comment: Speci men Type: BLOOD SPECIMENOrdering Facility: [facility] Address: [address] [place] [address] Performed By: #### 5 7021-8 ####[facility]AMIRAFFY [id number] [place] [address] [place] MCHC (RBC) [Mass/Vol] 33.4 g/dL Normal 30.5-36.0 [facility] Comment on above: Order Comment: Speci men Type: BLOOD SPECIMENOrdering Facility: [facility] Address: [address] [place] [address] Performed By: #### 5 7021-8 ####[facility] MIAMINCLORENZO [id number] [place] [address] [place] MCV (RBC) [Entitic vol] 89.0 fL Normal 80.0-100.0 [facility] Comment on above: Order Comment: Speci men Type: BLOOD SPECIMENOrdering Facility: [facility] Address: [address] [place] [address] Performed By: #### 5 7021-8 ####[facility]INCLIA [id number] [place] [address] [place] Monocytes (Bld) [#/Vol] 0.40 10*3/uL Normal <0.87 [facility] Comment on above: Order Comment: Speci men Type: BLOOD SPECIMENOrdering Facility: [facility] Address: [address] [place] [address] Performed By: #### 5 7021-8 ####[facility]INCLIA [id number] [place] [address] [place] Monocytes/100 WBC (Bld) 5.6 % Normal [facility] Comment on above: Order Comment: Speci men Type: BLOOD SPECIMENOrdering Facility: [facility] Address: [address] [place] [address] Performed By: #### 5 7021-8 ####[facility]INCA [id number] [place] [address] [place] Neutrophils (Bld) [#/Vol] 5.29 10*3/uL Normal 1.45-7.50 [facility] Comment on above: Order Comment: Speci men Type: BLOOD SPECIMENOrdering Facility: [facility] Address: [address] [place] [address] Performed By: #### 5 7021-8 ####[facility]A [id number] [place] [address] [place] Neutrophils/100 WBC (Bld) 74.6 % Normal [facility] Comment on above: Order Comment: Speci men Type: BLOOD SPECIMENOrdering Facility: [facility] Address: [address] [place] [address] Performed By: #### 5 7021-8 ####[facility] DAYTONLIA [id number] [place] [address] [place] Nucleated RBC (Bld) [#/Vol] 10*3/uL Normal <0.01 [facility] Comment on above: Order Comment: Speci men Type: BLOOD SPECIMENOrdering Facility: [facility] Address: [address] [place] [address] Performed By: #### 5 7021-8 ####[facility]INCLIA [id number] [place] [address] [place] Nucleated RBC/100 WBC (Bld) [Ratio] 0.0 /100 WBC Normal [facility] Comment on above: Order Comment: Speci men Type: BLOOD SPECIMENOrdering Facility: [facility] Address: [address] [place] [address] Performed By: #### 5 7021-8 ####[facility]TON[facility] [id number] [place] [address] [place] Platelet mean volume (Bld) [Entitic vol] 9.1 fL Normal 9.0-12.7 [facility] Comment on above: Order Comment: Speci men Type: BLOOD SPECIMENOrdering Facility: [facility] Address: [address] [place] [address] Performed By: #### 5 7021-8 ####[facility] [id number] [place] [address] [place] Platelets (Bld) [#/Vol] 391 10*3/uL Normal 150-400 [facility] Comment on above: Order Comment: Speci men Type: BLOOD SPECIMENOrdering Facility: [facility] Address: [address] [place] [id number] Performed By: #### 5 7021-8 ####[facility] [facility] [id number] [place] [address] [place] RBC (Bld) [#/Vol] 3.83 10*6/uL Low 3.90-5.20 [facility] Comment on above: Order Comment: Speci men Type: BLOOD SPECIMENOrdering Facility: [facility] Address: [address] [place] [address] Performed By: #### 5 7021-8 ####[facility] [id number] [place] [address] [place] WBC (Bld) [#/Vol] 7.09 10*3/uL Normal 3.70-11.00 [facility] Comment on above: Order Comment: Speci men Type: BLOOD SPECIMENOrdering Facility: [facility] Address: [address] [place] [address] [place] [address] Performed By: #### 5 7021-8 ####[facility] [id number] [place] [address] [facility] [place] Comprehensive metabolic 2000 panelOrdered By: Zaida Rice on 11-14-2024 Albumin [Mass/Vol] 4 g/dL 3.9 - 4.9 g/dL [facility] ALP [Catalytic activity/Vol] 79 U/L 34 - 123 U/L [facility] ALT [Catalytic activity/Vol] 16 U/L 7 - 38 U/L [facility] Anion gap [Moles/Vol] 14 mmol/L 8 - 15 mmol/L [facility] AST [Catalytic activity/Vol] 16 U/L 13 - 35 U/L [facility] Bilirubin [Mass/Vol] 0.6 mg/dL 0.2 - 1 .3 mg/dL [facility] Calcium [Mass/Vol] 8.7 mg/dL 8.5 - 10. 2 mg/dL [facility] Chloride [Moles/Vol] 99 mmol/L 98 - 10 7 mmol/L [facility] CO2 [Moles/Vol] 20 mmol/L Low 22 - 30 mmol/L [facility] Creatinine [Mass/Vol] 0.64 mg/dL 0.58 - 0.96 mg/dL [facility] GFR/1.73 sq M.predicted among non-blacks MDRD (S/P/Bld) [Vol rate/Area] 90 mL/min/{1.73_m2} - PINF [facility] Comment on above: Estimated Glomerular Filtration Rate (eGFR) is calculated using the 2020 CKD-EPI creatinine equation. This equation utilizes serum creatinine, sex, and age as parameters. The creatinine assay has traceable calibration to isotope dilution-mass spectrometry. Refer to KDIGO guidelines for clinical interpretation. In patients with unstable renal function, e.g. those with acute kidney injury, the eGFR may not accurately reflect actual GFR. Glucose [Mass/Vol] 110 mg/dL High 74 - 99 mg/dL [facility] Comment on above: The [place] Diabete s Association (ADA) provides guidance for cutoff values for fasting glucose and random glucose. The ADA defines fasting as no caloric intake for at least 8 hours. Fasting plasma glucose results between 100 to 125 mg/dL indicate increased risk for diabetes (prediabetes). Fasting plasma glucose results greater than or equal to 126 mg/dL meet the criteria for diagnosis of diabetes. In the absence of unequivocal hyperglycemia, results should be confirmed by repeat testing. In a patient with classic symptoms of hyperglycemia or hyperglycemic crisis, random plasma glucose results greater than or equal to 200 mg/dL meet the criteria for diagnosis of diabetes. Reference: Standards of Medical Care in Diabetes 2016, [place] Diabetes Association. Diabetes Care. 2016.39(Suppl 1). Interpretation and review of laboratory results Abnormal [facility] Potassium [Moles/Vol] 4.1 mmol/L 3.7 - 5.1 mmol/L [facility] Protein [Mass/Vol] 6.5 g/dL 6.3 - 8.0 g/dL [facility] Sodium [Moles/Vol] 133 mmol/L Low 136 - 144 mmol/L [facility] Urea nitrogen [Mass/Vol] 13 mg/dL 7 - 21 mg/dL [facility] Comprehensive metabolic 2000 panelon 11-14-2024 Albumin [Mass/Vol] 4.0 g/dL Normal 3.9-4.9 [facility] Comment on above: Order Comment: Katrina li Type: BLOOD SPECIMENOrdering Facility: [facility] Address: [address] [place] [address] Performed By: #### 2 4323-8 ####[facility] [id number] [place] [address] [place] ALP [Catalytic activity/Vol] 79 U/L Normal 34-123 [facility] Comment on above: Order Comment: Kimmyi guillermo Type: BLOOD SPECIMENOrdering Facility: [facility] Address: [address] [place] [address] Performed By: #### 2 4323-8 ####[facility] [id number] [place] [address] [place] ALT [Catalytic activity/Vol] 16 U/L Normal 7-38 [facility] Comment on above: Order Comment: Speci men Type: BLOOD SPECIMENOrdering Facility: [facility] Address: [address] [place] [address] Performed By: #### 2 4323-8 ####[facility] MILLTOWNCLIA [id number] [place] [address] [place] Anion gap [Moles/Vol] 14 mmol/L Normal 8-15 [facility] Comment on above: Order Comment: Speci men Type: BLOOD SPECIMENOrdering Facility: [facility] Address: [address] [place] [address] Performed By: #### 2 4323-8 ####[facility] MILLTOWNCLIA [id number] [place] [address] [place] AST [Catalytic activity/Vol] 16 U/L Normal 13-35 [facility] Comment on above: Order Comment: Speci men Type: BLOOD SPECIMENOrdering Facility: [facility] Address: [address] [place] [address] Performed By: #### 2 4323-8 ####[facility] MILLTOWNCLIA [id number] [place] [address] [place] Bilirubin [Mass/Vol] 0.6 mg/dL Normal 0.2-1.3 [facility] Comment on above: Order Comment: Speci men Type: BLOOD SPECIMENOrdering Facility: [facility] Address: [address] [place] [address] Performed By: #### 2 4323-8 ####[facility] MILLTOWNCLIA [id number] [place] [address] [place] Calcium [Mass/Vol] 8.7 mg/dL Normal 8.5-10.2 [facility] Comment on above: Order Comment: Speci men Type: BLOOD SPECIMENOrdering Facility: [facility] Address: [address] [place] [address] Performed By: #### 2 4323-8 ####[facility] MILLTOWNCLIA [id number] [place] [address] [place] Chloride [Moles/Vol] 99 mmol/L Normal 98-107 [facility] Comment on above: Order Comment: Speci men Type: BLOOD SPECIMENOrdering Facility: [facility] Address: [address] [place] [address] Performed By: #### 2 4323-8 ####[facility]ENTERWNCLIA [id number] [place] [address] [place] CO2 [Moles/Vol] 20 mmol/L Low 22-30 [facility] Comment on above: Order Comment: Speci men Type: BLOOD SPECIMENOrdering Facility: [facility] Address: [address] [place] [address] Performed By: #### 2 4323-8 ####[facility] [id number] [place] [address] [place] Creatinine [Mass/Vol] 0.64 mg/dL Normal 0.58-0.96 [facility] Comment on above: Order Comment: Speci men Type: BLOOD SPECIMENOrdering Facility: [facility] Address: [address] [place] [address] Performed By: #### 2 4323-8 ####[facility]INCL[facility] [id number] [place] [address] [place] Creatinine and Glomerular filtration rate.predicted panel (S/P/Bld) 90 mL/min/1.73m??? Normal >=60 [facility] Comment on above: Order Comment: Speci men Type: BLOOD SPECIMENOrdering Facility: [facility] Address: [address] [place] [address] Result Comment: Amina mated Glomerular Filtration Rate (eGFR) is calculated using the 2020 CKD-EPI creatinine equation. This equation utilizes serum creatinine, sex, and age as parameters. The creatinine assay has traceable calibration to isotope dilution-mass spectrometry. Refer to KDIGO guidelines for clinical interpretation. In patients with unstable renal function, e.g. those with acute kidney injury, the eGFR may not accurately reflect actual GFR. Performed By: #### 2 4323-8 ####[facility] [id number] [place] [address] [place] Glucose [Mass/Vol] 110 mg/dL High 74-99 [facility] Comment on above: Order Comment: Speci guillermo Type: BLOOD SPECIMENOrdering Facility: [facility] Address: [address] [place] [address] Result Comment: The [place] Diabetes Association (ADA) provides guidance for cutoff values for fasting glucose and random glucose. The ADA defines fasting as no caloric intake for at least 8 hours. Fasting plasma glucose results between 100 to 125 mg/dL indicate increased risk for diabetes (prediabetes).Fasting plasma glucose results greater than or equal to 126 mg/dL meet the criteria for diagnosis of diabetes. In the absence of unequivocal hyperglycemia, results should be confirmed by repeat testing. In a patient with classic symptoms of hyperglycemia or hyperglycemic crisis, random plasma glucose results greater than or equal to 200 mg/dL meet the criteria for diagnosis of diabetes.Reference: Standards of Medical Care in Diabetes 2016, [place] Diabetes Association. Diabetes Care. 2016.39(Suppl 1). Performed By: #### 2 4323-8 ####[facility]TON[facility] [id number] [place] [address] [place] Potassium [Moles/Vol] 4.1 mmol/L Normal 3.7-5.1 [facility] Comment on above: Order Comment: Katrina li Type: BLOOD SPECIMENOrdering Facility: [facility] Address: [address] [place] [address] Performed By: #### 2 4323-8 ####[facility] [id number] [place] [address] [place] Protein [Mass/Vol] 6.5 g/dL Normal 6.3-8.0 [facility] Comment on above: Order Comment: Speci men Type: BLOOD SPECIMENOrdering Facility: [facility] Address: [address] [place] [address] Performed By: #### 2 4323-8 ####[facility] [id number] [place] [address] [place] Sodium [Moles/Vol] 133 mmol/L Low 136-144 [facility] Comment on above: Order Comment: Speci men Type: BLOOD SPECIMENOrdering Facility: [facility] Address: [address] [place] [address] Performed By: #### 2 4323-8 ####[facility] [id number] [place] [address] [place] Urea nitrogen [Mass/Vol] 13 mg/dL Normal 7-21 [facility] Comment on above: Order Comment: Speci men Type: BLOOD SPECIMENOrdering Facility: [facility] Address: [address] [place] [address] Performed By: #### 2 4323-8 ####[facility] [id number] [place] [address] [place] Urinalysis complete panel (U )on 11-12-2024 Bacteria LM.HPF (Urine sed) [#/Area] Negative Normal Negative [facility] Comment on above: Order Comment: Speci men Type: URINE SPECIMENOrdering Facility: [facility] Address: [address] [place] [address] Performed By: #### 2 4356-8 ####[facility] LABCLIA [id number] [place] [address] [place] Bilirubin Ql (U) Negative Normal Negative [facility] Comment on above: Order Comment: Speci men Type: URINE SPECIMENOrdering Facility: [facility] Address: [address] [place] [address] Performed By: #### 2 4356-8 ####[facility] LABCLIA [id number] [address] [place] [address] [place] Clarity (Unsp spec) Clear Normal Clear [facility] Comment on above: Order Comment: Speci men Type: URINE SPECIMENOrdering Facility: [facility] Address: [address] [place] [address] Performed By: #### 2 4356-8 ####[facility] LABCLIA [id number] [address], [place] [address] [place] Color (U) Yellow Normal Yellow [facility] Comment on above: Order Comment: Speci men Type: URINE SPECIMENOrdering Facility: [facility] Address: [address] [place] [address] Performed By: #### 2 4356-8 ####[facility] LABCLIA [id number] [address], [facility] [place] Epithelial cells LM.HPF (Urine sed) [#/Area] None Seen Normal [facility] Comment on above: Order Comment: Speci men Type: URINE SPECIMENOrdering Facility: [facility] Address: [address] [place] [address] Performed By: #### 2 4356-8 ####[facility] LABCLIA [id number] [address], [facility]95 [place] Glucose Test strip (U) [Mass/Vol] Negative Normal Negative [facility] Comment on above: Order Comment: Speci men Type: URINE SPECIMENOrdering Facility: [facility] Address: [address] [place] [address] Performed By: #### 2 4356-8 ####[facility] LABCLIA [id number] [address], [facility] [place] Hemoglobin Ql (U) Negative Normal Negative [facility] Comment on above: Order Comment: Speci men Type: URINE SPECIMENOrdering Facility: [facility] Address: [address] [place] [address] Performed By: #### 2 4356-8 ####[facility] LABCLIA [id number] [place] [address] [place] Hyaline casts (Urine sed) [#/Area] 0 /[LPF] Normal 0 /LPF [facility] Comment on above: Order Comment: Speci men Type: URINE SPECIMENOrdering Facility: [facility] Address: [address] [place] [address] Performed By: #### 2 4356-8 ####[facility] LABCLIA [id number] [place] [address] [place] Ketones Ql (U) Negative Normal Negative [facility] Comment on above: Order Comment: Speci men Type: URINE SPECIMENOrdering Facility: [facility] Address: [address] [place] [address] Performed By: #### 2 4356-8 ####[facility] LABCLIA [id number] [place] [address] [place] Leukocyte esterase Test strip Ql (U) Negative Normal Negative [facility] Comment on above: Order Comment: Speci men Type: URINE SPECIMENOrdering Facility: [facility] Address: [address] [place] [address] Performed By: #### 2 4356-8 ####[facility] LABCLIA [id number] [place] [address] [place] Nitrite Ql (U) Negative Normal Negative [facility] Comment on above: Order Comment: Speci men Type: URINE SPECIMENOrdering Facility: [facility] Address: [address] [place] [address] Performed By: #### 2 4356-8 ####[facility] LABCLIA [id number] [place] [address] [place] pH (U) 6.5 [pH] Normal <8.5 [facility] Comment on above: Order Comment: Speci men Type: URINE SPECIMENOrdering Facility: [facility] Address: [address] [place] [address] Performed By: #### 2 4356-8 ####[facility] LABIA [id number] [place] [address] [place] Protein (U) [Mass/Vol] Trace Abnormal Negative [facility] Comment on above: Order Comment: Speci men Type: URINE SPECIMENOrdering Facility: [facility] Address: [address] [place] [address] Performed By: #### 2 4356-8 ####[facility] [id number] [place] [address] [place] RBC LM.HPF (Urine sed) [#/Area] 0-2 /HPF Normal 0-2 /HPF [facility] Comment on above: Order Comment: Speci men Type: URINE SPECIMENOrdering Facility: [facility] Address: [address] [place] [address] Performed By: #### 2 4356-8 ####[facility] LABIA [id number] [place] [address] [place] Specific gravity (U) [Rel density] 1.019 Normal 1.005-1.03 0 [facility] Comment on above: Order Comment: Speci men Type: URINE SPECIMENOrdering Facility: [facility] Address: [address] [place] [address] Performed By: #### 2 4356-8 ####[facility] LABIA [id number] [place] [address] [place] Urobilinogen Ql (U) 0.2 EU/dL Normal 0.2-1.0 EU/dL [facility] Comment on above: Order Comment: Speci men Type: URINE SPECIMENOrdering Facility: [facility] Address: [address] [place] [address] Performed By: #### 2 4356-8 ####[facility] LABCLIA [id number] [address] [place] [address] [place] WBC LM.HPF (Urine sed) [#/Area] 0-5 /HPF Normal 0-5 /HPF [facility] Comment on above: Order Comment: Speci men Type: URINE SPECIMENOrdering Facility: [facility] Address: [address] [place], [place] [address] Performed By: #### 2 4356-8 ####[facility] LABCLIA [id number] [address] [place] [address] [place] Bacteria Ur Culton Bacteria identified Cx Nom (U) Abnormal [facility] Comment on above: Performed By: #### 6 30-4, 01562-0 ####[facility] LABCLIA [id number] [address] [place] [address] [place] CNOVSPon 10-24-2024 CNOVSP Normal [facility] Urinalysis complete panel (U )on 10-24-2024 BACTERIA UL 1422.9 uL High Negative [facility] Comment on above: Order Comment: Speci men Type: URINE SPECIMENOrdering Facility: [facility] Address: [address] [place], [place] [address] Performed By: #### 6 30-4, 95071-3 ####[facility] LABCLIA [id number] [address] [place] [address] [place] Bilirubin Ql (U) Negative Normal Negative [facility] Comment on above: Order Comment: Speci men Type: URINE SPECIMENOrdering Facility: [facility] Address: [address] [place], [place] [address] Performed By: #### 6 30-4, 31855-2 ####[facility] LABCLIA [id number] [facility] [address] [place] [address] [place] Clarity (Unsp spec) Cloudy Abnormal Clear [facility] Comment on above: Order Comment: Speci men Type: URINE SPECIMENOrdering Facility: [facility] Address: [address] [place], [place] [address] Performed By: #### 6 30-4, 33992-2 ####[facility] LABCLIA [id number] [address] [place] [address] [place] Color (U) Yellow Normal Yellow [facility] Comment on above: Order Comment: Speci men Type: URINE SPECIMENOrdering Facility: [facility] Address: [address] [place] [address] Performed By: #### 6 30-4, 11560-0 ####[facility] LABCLIA [id number] [address], [facility]95 [place] Epithelial cells LM.HPF (Urine sed) [#/Area] None Seen Normal [facility] Comment on above: Order Comment: Speci men Type: URINE SPECIMENOrdering Facility: [facility] Address: [address] [place] [address] Performed By: #### 6 30-4, 98827-4 ####[facility] LABCLIA [id number] [address] [place] [address] [place] Glucose Test strip (U) [Mass/Vol] Negative Normal Negative [facility] Comment on above: Order Comment: Speci men Type: URINE SPECIMENOrdering Facility: [facility] Address: [address] [place], [place] [address] Performed By: #### 6 30-4, 14871-8 ####[facility] LABCLIA [id number] [address] [place] [address] [place] Hemoglobin Ql (U) Negative Normal Negative [facility] Comment on above: Order Comment: Speci men Type: URINE SPECIMENOrdering Facility: [facility] Address: [address] [place] [address] Performed By: #### 6 30-4, 25887-4 ####[facility] LABCLIA [id number] [address], [facility]95 [place] Hyaline casts (Urine sed) [#/Area] 4-10 /LPF Abnormal 0 /LPF [facility] Comment on above: Order Comment: Speci men Type: URINE SPECIMENOrdering Facility: [facility] Address: [address] [place] [address] Performed By: #### 6 30-4, 64933-9 ####[facility] LABCLIA [id number] [place] [id number] [place] Ketones Ql (U) Negative Normal Negative [facility] Comment on above: Order Comment: Speci men Type: URINE SPECIMENOrdering Facility: [facility] Address: [address] [place] [address] Performed By: #### 6 30-4, 74173-3 ####[facility] LABCLIA [id number] [address], [facility]95 [place] Leukocyte esterase Test strip Ql (U) 2+ Abnormal Negative [facility] Comment on above: Order Comment: Speci men Type: URINE SPECIMENOrdering Facility: [facility] Address: [address] [place] [address] Performed By: #### 6 30-4, 29729-1 ####[facility] LABCLIA [id number] [address] [place] [address] [place] Nitrite Ql (U) Negative Normal Negative [facility] Comment on above: Order Comment: Speci men Type: URINE SPECIMENOrdering Facility: [facility] Address: [address] [place] [address] Performed By: #### 6 30-4, 37770-7 ####[facility] LABCLIA [id number] [address] [place] [address] [place] pH (U) 7.0 [pH] Normal <8.5 [facility] Comment on above: Order Comment: Speci men Type: URINE SPECIMENOrdering Facility: [facility] Address: [address] [place] [address] Performed By: #### 6 30-4, 02070-9 ####[facility] LABIA [id number] [place] [address] [place] Protein (U) [Mass/Vol] Trace Abnormal Negative Cl [facility] Comment on above: Order Comment: Speci men Type: URINE SPECIMENOrdering Facility: [facility] Address: [address] [place] [address] Performed By: #### 6 30-4, 32813-2 ####[facility] [id number] [place] [address] [place] RBC LM.HPF (Urine sed) [#/Area] 0-2 /HPF Normal 0-2 /HPF [facility] Comment on above: Order Comment: Speci men Type: URINE SPECIMENOrdering Facility: [facility] Address: [address] [place] [address] Performed By: #### 6 30-4, 96035-3 ####[facility] [id number] [place] [address] [place] Specific gravity (U) [Rel density] 1.019 Normal 1.005-1.03 0 [facility] Comment on above: Order Comment: Speci men Type: URINE SPECIMENOrdering Facility: [facility] Address: [address] [place] [address] Performed By: #### 6 30-4, 39159-8 ####[facility] LABIA [id number] [place] [id number] [place] Urobilinogen Ql (U) 1.0 EU/dL Normal 0.2-1.0 EU/dL [facility] Comment on above: Order Comment: Speci men Type: URINE SPECIMENOrdering Facility: [facility] Address: [address] [place] [address] Performed By: #### 6 30-4, 65411-6 ####[facility] [id number] [place] [address] [place] WBC LM.HPF (Urine sed) [#/Area] /[HPF] Abnormal 0-5 /HPF [facility] Comment on above: Order Comment: Speci men Type: URINE SPECIMENOrdering Facility: [facility] Address: [address] [place] [address] Performed By: #### 6 30-4, 21269-1 ####[facility] LABIA [id number] [place] [address] [place] [place] CBC W Auto Differential pane l (Bld)on 10-23-2024 Basophils (Bld) [#/Vol] 0.07 10*3/uL Normal <0.11 [facility] Comment on above: Order Comment: Speci men Type: BLOOD SPECIMENOrdering Facility: [facility] Address: [address] [place] [address] Performed By: #### 5 7021-8 ####[facility]AMIRAFFY [id number] [place] [address] [place] Basophils/100 WBC (Bld) 1.0 % Normal [facility] Comment on above: Order Comment: Speci men Type: BLOOD SPECIMENOrdering Facility: [facility] Address: [address] [place] [address] Performed By: #### 5 7021-8 ####[facility]TONNENA [id number] [place] [address] [place] Differential cell count method Nom (Bld) Auto Normal [facility] Comment on above: Order Comment: Speci men Type: BLOOD SPECIMENOrdering Facility: [facility] Address: [address] [place] [address] Performed By: #### 5 7021-8 ####[facility] MILLWNCLIA [id number] [place] [address] [place] Eosinophils (Bld) [#/Vol] 0.08 10*3/uL Normal <0.46 [facility] Comment on above: Order Comment: Speci men Type: BLOOD SPECIMENOrdering Facility: [facility] Address: [address] [place] [address] Performed By: #### 5 7021-8 ####[facility]TONLIA [id number] [place] [address] [place] Eosinophils/100 WBC (Bld) 1.2 % Normal [facility] Comment on above: Order Comment: Speci men Type: BLOOD SPECIMENOrdering Facility: [facility] Address: [address] [place] [address] Performed By: #### 5 7021-8 ####[facility]TONLIA [id number] [place] [address] [place] Erythrocyte distribution width (RBC) [Ratio] 15.9 % High 11.5-15.0 [facility] Comment on above: Order Comment: Speci men Type: BLOOD SPECIMENOrdering Facility: [facility] Address: [address] [place] [address] Performed By: #### 5 7021-8 ####[facility]TONL[facility] [id number] [place] [address] [place] Hematocrit (Bld) [Volume fraction] 34.2 % Low 36.0-46.0 [facility] Comment on above: Order Comment: Speci men Type: BLOOD SPECIMENOrdering Facility: [facility] Address: [address] [place] [address] Performed By: #### 5 7021-8 ####[facility] MIAMINCLIA [id number] [place] [address] [place] Hemoglobin (Bld) [Mass/Vol] 11.5 g/dL Normal 11.5-15.5 [facility] Comment on above: Order Comment: Speci men Type: BLOOD SPECIMENOrdering Facility: [facility] Address: [address] [place] [address] Performed By: #### 5 7021-8 ####[facility]TONL[facility] [id number] [place] [address] [place] Immature granulocytes (Bld) [#/Vol] 10*3/uL Normal <0.10 [facility] Comment on above: Order Comment: Speci men Type: BLOOD SPECIMENOrdering Facility: [facility] Address: [address] [place] [address] Performed By: #### 5 7021-8 ####[facility]A [id number] [address] [place] Immature granulocytes/100 WBC (Bld) 0.3 % Normal [facility] Comment on above: Order Comment: Speci men Type: BLOOD SPECIMENOrdering Facility: [facility] Address: [address] [place] [address] Performed By: #### 5 7021-8 ####[facility]ENTERA [id number] [place] [address] [place] Lymphocytes (Bld) [#/Vol] 1.43 10*3/uL Normal 1.00-4.00 [facility] Comment on above: Order Comment: Speci men Type: BLOOD SPECIMENOrdering Facility: [facility] Address: [address] [place] [address] Performed By: #### 5 7021-8 ####[facility] DAYTONLIA [id number] [place] [address] [place] Lymphocytes/100 WBC (Bld) 21.2 % Normal [facility] Comment on above: Order Comment: Speci men Type: BLOOD SPECIMENOrdering Facility: [facility] Address: [address] [place] [address] Performed By: #### 5 7021-8 ####[facility] HARDIKKALONARAFFY [id number] [address] STATES [facility] MCH (RBC) [Entitic mass] 29.9 pg Normal 26.0-34.0 [facility] Comment on above: Order Comment: Speci men Type: BLOOD SPECIMENOrdering Facility: [facility] Address: [address] [place] [address] Performed By: #### 5 7021-8 ####[facility]INCSHRIN[facility]IL[facility] [id number] [place] [address] [place] MCHC (RBC) [Mass/Vol] 33.6 g/dL Normal 30.5-36.0 [facility] Comment on above: Order Comment: Speci men Type: BLOOD SPECIMENOrdering Facility: [facility] Address: [address] [place] [address] Performed By: #### 5 7021-8 ####[facility] [id number] [place] [address] [place] MCV (RBC) [Entitic vol] 89.1 fL Normal 80.0-100.0 [facility] Comment on above: Order Comment: Speci men Type: BLOOD SPECIMENOrdering Facility: [facility] Address: [address] [place] [address] Performed By: #### 5 7021-8 ####[facility] [id number] [place] [address] [place] Monocytes (Bld) [#/Vol] 0.44 10*3/uL Normal <0.87 [facility] Comment on above: Order Comment: Speci men Type: BLOOD SPECIMENOrdering Facility: [facility] Address: [address] [place] [address] Performed By: #### 5 7021-8 ####[facility] MILLWNCLIA [id number] [place] [address] [place] Monocytes/100 WBC (Bld) 6.5 % Normal [facility] Comment on above: Order Comment: Speci men Type: BLOOD SPECIMENOrdering Facility: [facility] Address: [address] [place] [address] Performed By: #### 5 7021-8 ####[facility]TONLIA [id number] [place] [address] [place] Neutrophils (Bld) [#/Vol] 4.71 10*3/uL Normal 1.45-7.50 [facility] Comment on above: Order Comment: Speci men Type: BLOOD SPECIMENOrdering Facility: [facility] Address: [address] [place] [address] Performed By: #### 5 7021-8 ####[facility]ENTERA [id number] [place] [address] [place] Neutrophils/100 WBC (Bld) 69.8 % Normal [facility] Comment on above: Order Comment: Speci men Type: BLOOD SPECIMENOrdering Facility: [facility] Address: [address] [place] [address] Performed By: #### 5 7021-8 ####[facility] MIAMINCLIA [id number] [place] [address] [place] Nucleated RBC (Bld) [#/Vol] 10*3/uL Normal <0.01 [facility] Comment on above: Order Comment: Speci men Type: BLOOD SPECIMENOrdering Facility: [facility] Address: [address] [place] [address] Performed By: #### 5 7021-8 ####[facility] MIAMINCLIA [id number] [place] [address] [place] Nucleated RBC/100 WBC (Bld) [Ratio] 0.0 /100 WBC Normal [facility] Comment on above: Order Comment: Speci men Type: BLOOD SPECIMENOrdering Facility: [facility] Address: [address] [place] [address] Performed By: #### 5 7021-8 ####[facility]INCSHRIN[facility]IL[facility]EN [id number] [place] [address] [place] Platelet mean volume (Bld) [Entitic vol] 8.9 fL Low 9.0-12.7 [facility] Comment on above: Order Comment: Speci men Type: BLOOD SPECIMENOrdering Facility: [facility] Address: [address] [place] [address] Performed By: #### 5 7021-8 ####[facility]CSHR[facility] [id number] [place] [address] [place] Platelets (Bld) [#/Vol] 361 10*3/uL Normal 150-400 [facility] Comment on above: Order Comment: Speci men Type: BLOOD SPECIMENOrdering Facility: [facility] Address: [address] [place] [address] Performed By: #### 5 7021-8 ####[facility] [id number] [place] [address] [place] RBC (Bld) [#/Vol] 3.84 10*6/uL Low 3.90-5.20 [facility] Comment on above: Order Comment: Speci men Type: BLOOD SPECIMENOrdering Facility: [facility] Address: [address] [place] [address] Performed By: #### 5 7021-8 ####[facility]CSHR[facility] [id number] [place] [address] [place] WBC (Bld) [#/Vol] 6.75 10*3/uL Normal 3.70-11.00 [facility] Comment on above: Order Comment: Speci men Type: BLOOD SPECIMENOrdering Facility: [facility] Address: [address] [place] [address] Performed By: #### 5 7021-8 ####[facility] JOI JOHNNIELIA [id number] [place] [address] [place] Comprehensive metabolic 2000 panelon 10-23-2024 Albumin [Mass/Vol] 4.0 g/dL Normal 3.9-4.9 [facility] Comment on above: Order Comment: Speci men Type: BLOOD SPECIMENOrdering Facility: [facility] Address: [address] [place] [address] Performed By: #### 2 4323-8 ####[facility] MIAMINCA [id number] [place] [address] [place] ALP [Catalytic activity/Vol] 81 U/L Normal 34-123 [facility] Comment on above: Order Comment: Speci men Type: BLOOD SPECIMENOrdering Facility: [facility] Address: [address] [place] [address] Performed By: #### 2 4323-8 ####[facility] MIAMIMAYNORA [id number] [place] [address] [place] ALT [Catalytic activity/Vol] 14 U/L Normal 7-38 [facility] Comment on above: Order Comment: Speci men Type: BLOOD SPECIMENOrdering Facility: [facility] Address: [address] [place] [address] Performed By: #### 2 4323-8 ####[facility]A [id number] [place] [address] [place] Anion gap [Moles/Vol] 14 mmol/L Normal 8-15 [facility] Comment on above: Order Comment: Speci men Type: BLOOD SPECIMENOrdering Facility: [facility] Address: [address] [place] [address] Performed By: #### 2 4323-8 ####[facility] JOI MILLTOWNCLIA [id number] [place] [address] [place] AST [Catalytic activity/Vol] 11 U/L Low 13-35 [facility] Comment on above: Order Comment: Speci men Type: BLOOD SPECIMENOrdering Facility: [facility] Address: [address] [place] [address] Performed By: #### 2 4323-8 ####[facility] CENTERWNCLIA [id number] [place] [address] [place] Bilirubin [Mass/Vol] 0.5 mg/dL Normal 0.2-1.3 [facility] Comment on above: Order Comment: Speci men Type: BLOOD SPECIMENOrdering Facility: [facility] Address: [address] [place] [address] Performed By: #### 2 4323-8 ####[facility] MIAMINCLIA [id number] [place] [address] [place] Calcium [Mass/Vol] 9.0 mg/dL Normal 8.5-10.2 [facility] Comment on above: Order Comment: Speci men Type: BLOOD SPECIMENOrdering Facility: [facility] Address: [address] [place] [address] Performed By: #### 2 4323-8 ####[facility] CENTERWNCLIA [id number] [place] [address] [place] Chloride [Moles/Vol] 100 mmol/L Normal 98-107 [facility] Comment on above: Order Comment: Speci men Type: BLOOD SPECIMENOrdering Facility: [facility] Address: [address] [place], [place] [address] Performed By: #### 2 4323-8 ####[facility] MIAMINCLIA [id number] [place] [address] [place] CO2 [Moles/Vol] 20 mmol/L Low 22-30 [facility] Comment on above: Order Comment: Speci men Type: BLOOD SPECIMENOrdering Facility: [facility] Address: [address] [place] [address] Performed By: #### 2 4323-8 ####[facility] MIAMINCLI [id number] [place] [address] [place] Creatinine [Mass/Vol] 0.60 mg/dL Normal 0.58-0.96 [facility] Comment on above: Order Comment: Speci men Type: BLOOD SPECIMENOrdering Facility: [facility] Address: [address] [place] [address] Performed By: #### 2 4323-8 ####[facility]INCSHRIN[facility] [id number] [place] [address] [place] Creatinine and Glomerular filtration rate.predicted panel (S/P/Bld) 91 mL/min/1.73m??? Normal >=60 [facility] Comment on above: Order Comment: Speci men Type: BLOOD SPECIMENOrdering Facility: [facility] Address: [address] [place] [address] Result Comment: Amina mated Glomerular Filtration Rate (eGFR) is calculated using the 2020 CKD-EPI creatinine equation. This equation utilizes serum creatinine, sex, and age as parameters. The creatinine assay has traceable calibration to isotope dilution-mass spectrometry. Refer to KDIGO guidelines for clinical interpretation. In patients with unstable renal function, e.g. those with acute kidney injury, the eGFR may not accurately reflect actual GFR. Performed By: #### 2 4323-8 ####[facility] MIAMINCLIA [id number] [place] [address] [place] Glucose [Mass/Vol] 100 mg/dL High 74-99 [facility] Comment on above: Order Comment: Speci men Type: BLOOD SPECIMENOrdering Facility: [facility] Address: [address] [place] [address] Result Comment: The [place] Diabetes Association (ADA) provides guidance for cutoff values for fasting glucose and random glucose. The ADA defines fasting as no caloric intake for at least 8 hours. Fasting plasma glucose results between 100 to 125 mg/dL indicate increased risk for diabetes (prediabetes).Fasting plasma glucose results greater than or equal to 126 mg/dL meet the criteria for diagnosis of diabetes. In the absence of unequivocal hyperglycemia, results should be confirmed by repeat testing. In a patient with classic symptoms of hyperglycemia or hyperglycemic crisis, random plasma glucose results greater than or equal to 200 mg/dL meet the criteria for diagnosis of diabetes.Reference: Standards of Medical Care in Diabetes 2016, [place] Diabetes Association. Diabetes Care. 2016.39(Suppl 1). Performed By: #### 2 4323-8 ####[facility] MIAMIRAFFY [id number] [place] [address] [place] Potassium [Moles/Vol] 4.0 mmol/L Normal 3.7-5.1 [facility] Comment on above: Order Comment: Speci men Type: BLOOD SPECIMENOrdering Facility: [facility] Address: [address] [id number] Performed By: #### 2 4323-8 ####[facility] CENTERJane [id number] [place] [address] [place] Protein [Mass/Vol] 6.6 g/dL Normal 6.3-8.0 [facility] Comment on above: Order Comment: Speci men Type: BLOOD SPECIMENOrdering Facility: [facility] Address: [address] [place] [address] Performed By: #### 2 4323-8 ####[facility] [id number] [place] [address] [place] Sodium [Moles/Vol] 134 mmol/L Low 136-144 [facility] Comment on above: Order Comment: Speci men Type: BLOOD SPECIMENOrdering Facility: [facility] Address: [address] [id number] Performed By: #### 2 4323-8 ####[facility] CENTERWNCLIA [id number] [address] [place] Urea nitrogen [Mass/Vol] 12 mg/dL Normal 7-21 [facility] Comment on above: Order Comment: Speci men Type: BLOOD SPECIMENOrdering Facility: [facility] Address: [address] [place] [address] Performed By: #### 2 4323-8 ####[facility] CENTERWNCLIA [id number] [place] [address] [place] CNPNon 10-22-2024 CNPN Normal [facility] Anion gap in Serum or Plasma Ordered By: Guerrero Vasquez on 10-19-2024 Anion gap [Moles/Vol] 13 mmol/L 5-15 [facility] Automated blood erythrocyte countOrdered By: Guerrero Vasquez on 10-19-2024 RBC (Bld) [#/Vol] 3.84 10*6/uL Low 4.2-5.4 [facility] Automated blood hematocrit ( percentage)Ordered By: Guerrero Vasquez on 10-19-2024 Hematocrit (Bld) [Volume fraction] 34.2 % Low 37-47 [facility] BUN/creatinine ratioOrdered By: Guerrero Vasquez on 10-19-2024 Urea nitrogen/Creatinine [Mass ratio] 24.0 mg/mg High 10-20 [facility] Bilirubin, totalOrdered By: Guerrero Vasquez on 10-19-2024 Bilirubin [Mass/Vol] 0.35 mg/dL 0.00-1.30 [facility] C-REACTIVE PROTEIN (CRP) (AK ,AV,EU,FV,HL,WARD,MM,SP)on 10-19-2024 CRP [Mass/Vol] 0.3 mg/dL - 0.9 mg/dL [facility] Comment on above: result <0.3 CBCon 10-19-2024 Erythrocyte distribution width (RBC) [Entitic vol] 52 fL Abnormal 37.0 - 50.0 fL [facility] MCHC 33.3 % 32 - 36 % [facility] WBC (Bld) [#/Vol] 7 10*3/uL 4.0 - 11.0 K/uL [facility] CBC-Complete Blood Cnt No Fartun celison 10-19-2024 Erythrocyte distribution width (RBC) [Ratio] 15.9 % High 11.6-14.6 [facility] Comment on above: Performed By: #### L 501.6710, L500.4050, L100.0500 ####[facility] [address] [place], [address] Hematocrit (Bld) [Volume fraction] 34.2 % Low 37-47 [facility] Comment on above: Performed By: #### L 501.6710, L500.4050, L100.0500 ####[facility] [address] [place], [address] Hemoglobin (Bld) [Mass/Vol] 11.4 g/dL Low 12.0-15.0 [facility] Comment on above: Performed By: #### L 501.6710, L500.4050, L100.0500 ####[facility] [address] [place], [address] MCH (RBC) [Entitic mass] 29.7 pg Normal 27.0-32.0 [facility] Comment on above: Performed By: #### L 501.6710, L500.4050, L100.0500 ####[facility] [address] [place], [address] MCHC (RBC) [Mass/Vol] 33.3 g/dL Normal 32-36 [facility] Comment on above: Performed By: #### L 501.6710, L500.4050, L100.0500 ####[facility] [address] [place], [address] MCV (RBC) [Entitic vol] 89.1 fL Normal 81-99 [facility] Comment on above: Performed By: #### L 501.6710, L500.4050, L100.0500 ####[facility] [address] [place], [address] Platelet mean volume (Bld) [Entitic vol] 9.3 fL Normal 6.2-12.0 [facility] Comment on above: Performed By: #### L 501.6710, L500.4050, L100.0500 ####[facility] [address] [place], [address] Platelets (Bld) [#/Vol] 389 10*3/uL Normal 150-450 [facility] Comment on above: Performed By: #### L 501.6710, L500.4050, L100.0500 ####[facility] [address] [place], [address] RBC (Bld) [#/Vol] 3.84 10*6/uL Low 4.2-5.4 [facility] Comment on above: Performed By: #### L 501.6710, L500.4050, L100.0500 ####[facility] [address] [place], [address] RDW SD 52.0 fl High 35.1-43.9 [facility] Comment on above: Performed By: #### L 501.6710, L500.4050, L100.0500 ####[facility] [address] [place], [address] WBC (Bld) [#/Vol] 7.0 10*3/uL Normal 4.4-11.0 [facility] Comment on above: Performed By: #### L 501.6710, L500.4050, L100.0500 ####[facility] [address] [place], [address] CMP (EXTERNAL)on 10-19-2024 Albumin [Mass/Vol] 4 g/dL [facility] Alk Phos Total 83 U/L 45 - 117 U/L [facility] Bili Total 0.35 mg/dL 0.2 - 1 mg/dL [facility] Calcium [Mass/Vol] 9 mg/dL 8.5 - 10. 1 mg/dL [facility] Creatinine Clearance ml/min 47.14 mL/min Abnormal 50 - 250 mL/min [facility] GFR 70 [facility] CRPon 10-19-2024 C-REACTIVE PROT < 3.00 Normal 0.0-3.0 [facility] Comment on above: Performed By: #### L 501.6710, L500.4050, L100.0500 ####[facility] [address] [place], [address] Carbon dioxide, total [Moles /volume] in Central venous bloodOrdered By: Guerrero Vasquez on 10-19-2024 CO2 [Moles/Vol] 20.1 mmol/L Low 21.0-32.0 [facility] Chloride assayOrdered By: Do junior Vasquez on 10-19-2024 Chloride [Moles/Vol] 97 mmol/L Low 98-108 [facility] Comprehensive Metabolic Prof ilon 10-19-2024 Albumin [Mass/Vol] 4.0 g/dL Normal 3.4-4.8 [facility] Comment on above: Performed By: #### L 501.6710, L500.4050, L100.0500 ####[facility] [address] [place], [address] Albumin/Globulin [Mass ratio] 1.4 {ratio} Normal 0.9-2.4 [facility] Comment on above: Performed By: #### L 501.6710, L500.4050, L100.0500 ####[facility] [address] [place], [address] ALK PHOS 83 U/L Normal 35-104 [facility] Comment on above: Performed By: #### L 501.6710, L500.4050, L100.0500 ####[facility] [address] [place], [address] ALT [Catalytic activity/Vol] 14 U/L Normal <=34 [facility] Comment on above: Performed By: #### L 501.6710, L500.4050, L100.0500 ####[facility] [address] [place], [address] AST [Catalytic activity/Vol] 19 U/L Normal <=31 [facility] Comment on above: Performed By: #### L 501.6710, L500.4050, L100.0500 ####[facility] [address] [place], [address] Bilirubin [Mass/Vol] 0.35 mg/dL Normal 0.00-1.30 [facility] Comment on above: Performed By: #### L 501.6710, L500.4050, L100.0500 ####[facility] [address] [place], [address] BUN/CRE 24.0 RATIO High 10-20 [facility] Comment on above: Performed By: #### L 501.6710, L500.4050, L100.0500 ####[facility] [address] [place], [address] Calcium [Mass/Vol] 9.0 mg/dL Normal 7.6-11.0 [facility] Comment on above: Performed By: #### L 501.6710, L500.4050, L100.0500 ####[facility] [address] [place], [address] Chloride [Moles/Vol] 97 mmol/L Low 98-108 [facility] Comment on above: Performed By: #### L 501.6710, L500.4050, L100.0500 ####[facility] [id number] [place], [address] CO2 [Moles/Vol] 20.1 mmol/L Low 21.0-32.0 [facility] Comment on above: Performed By: #### L 501.6710, L500.4050, L100.0500 ####[facility] [id number] [place], [address] Creatinine [Mass/Vol] 0.84 mg/dL Normal 0.70-1.20 [facility] Comment on above: Performed By: #### L 501.6710, L500.4050, L100.0500 ####[facility] [id number] [place], [address] ECRCL 47.14 ml/min Low 50-[address] St[address] [facility] Comment on above: Performed By: #### L 501.6710, L500.4050, L100.0500 ####[facility] [address] [place], [address] GAP 13 Normal 5-15 [facility] Comment on above: Performed By: #### L 501.6710, L500.4050, L100.0500 ####[facility] [address] [place], [address] GFR/1.73 sq M.predicted among non-blacks MDRD (S/P/Bld) [Vol rate/Area] 70 mL/min/{1.73_m2} Normal >60 [facility] Comment on above: Result Comment: mL/m in/1.73m2 CKD-EPI Creatinine Equation (2020) Performed By: #### L 501.6710, L500.4050, L100.0500 ####[facility] [address] [place], [address] Globulin (S) [Mass/Vol] 2.8 g/dL Normal 2.2-4.2 [facility] Comment on above: Performed By: #### L 501.6710, L500.4050, L100.0500 ####[facility] [address] [place], [address] Glucose [Mass/Vol] 108 mg/dL High 70-99 [facility] Comment on above: Performed By: #### L 501.6710, L500.4050, L100.0500 ####[facility] [address] [place], [address] Potassium [Moles/Vol] 3.9 mmol/L Normal 3.3-5.1 [facility] Comment on above: Performed By: #### L 501.6710, L500.4050, L100.0500 ####[facility] [address] [place], [address] Sodium [Moles/Vol] 131 mmol/L Low 133-145 [facility] Comment on above: Performed By: #### L 501.6710, L500.4050, L100.0500 ####[facility] [address] [place], [address] T PROT 6.7 g/dL Normal 5.9-8.4 [facility] Comment on above: Performed By: #### L 501.6710, L500.4050, L100.0500 ####[facility] [address] [place], [address] Urea nitrogen [Mass/Vol] 20 mg/dL High 4-19 [facility] Comment on above: Performed By: #### L 501.6710, L500.4050, L100.0500 ####[facility] [address] [place], [address] Erythrocyte distribution wid th ratioOrdered By: Guerrero Vasquez on 10-19-2024 Erythrocyte distribution width (RBC) [Ratio] 15.9 % High 11.6-14.6 [facility] Erythrocyte distribution wid th standard deviationOrdered By: Guerrero Vasquez on 10-19-2024 Erythrocyte distribution width (RBC) [Ratio] 52.0 fl High 35.1-43.9 [facility] Glomerular filtration rate ( GFR) estimation/1.73 sq m using serum, plasma, or whole bOrdered By: Guerrero Vasquez on 10-19-2024 GFR/1.73 sq M.predicted among non-blacks MDRD (S/P/Bld) [Vol rate/Area] 70 mL/min/{1.73_m2} >60 [facility] Comment on above: mL/min/1.73m2 CKD-EP I Creatinine Equation (2020) Hemoglobin measurementOrdere d By: Guerrero Vasquez on 10-19-2024 Hemoglobin (Bld) [Mass/Vol] 11.4 g/dL Low 12.0-15.0 [facility] Laboratory - Chemistry and C hemistry - challengeOrdered By: Guerrero Vasquez on 10-19-2024 AST [Catalytic activity/Vol] 19 U/L <32 [facility] MCV (mean corpuscular volume ) determinationOrdered By: Guerrero Vasquez on 10-19-2024 MCV (RBC) [Entitic vol] 89.1 fL 81-99 [facility] Mean corpuscular hemoglobin (MCH) determinationOrdered By: Guerrero Vasquez on 10-19-2024 MCH (RBC) [Entitic mass] 29.7 pg 27.0-32.0 [facility] Mean corpuscular hemoglobin concentration (MCHC) determinationOrdered By: Guerrero Vasquez on 10-19-2024 MCHC (RBC) [Mass/Vol] 33.3 g/dL 32-36 [facility] Mean platelet volume determi nationOrdered By: Guerrero Vasquez on 10-19-2024 Platelet mean volume (Bld) [Entitic vol] 9.3 fL 6.2-12.0 [facility] No Panel Informationon 10-19 Interpretation and review of laboratory results Abnormal [facility] Platelet countOrdered By: Do junior Vasquez on 10-19-2024 Platelets (Bld) [#/Vol] 389 10*3/uL 150-450 [facility] Potassium measurement (mass/ volume)Ordered By: Guerrero Vasquez on 10-19-2024 Potassium (Unsp spec) [Mass/Vol] 3.9 mmol/L 3.3-5.1 [facility] Serum creatinine measurement (mass/volume)Ordered By: Guerrero Vasquez on 10-19-2024 Creatinine [Mass/Vol] 0.84 mg/dL 0.70-1.20 [facility] Serum globulin measurementOr dered By: Guerrero Vasquez on 10-19-2024 Globulin (S) [Mass/Vol] 2.8 g/dL 2.2-4.2 [facility] Serum glucose measurement (m ass/volume)Ordered By: Guerrero Vasquez on 10-19-2024 Glucose [Mass/Vol] 108 mg/dL High 70-99 [facility] Serum or plasma C reactive p rotein measurement (mass/volume)Ordered By: Guerrero Vasquez on 10-19-2024 CRP [Mass/Vol] mg/L 0.0-3.0 [facility] Serum or plasma alanine haynes otransferase (ALT) measurementOrdered By: Guerrero Vasquez on 10-19-2024 ALT [Catalytic activity/Vol] 14 U/L <35 [facility] Serum or plasma albumin agnieszka urement (mass/volume)Ordered By: Guerrero Vasquez on 10-19-2024 Albumin [Mass/Vol] 4.0 g/dL 3.4-4.8 [facility] Serum or plasma albumin/glob ulin mass ratioOrdered By: Guerrero Vasquez on 10-19-2024 Albumin/Globulin [Mass ratio] 1.4 {ratio} 0.9-2.4 [facility] Serum or plasma alkaline marshall sphatase measurementOrdered By: Guerrero Vaqsuez on 10-19-2024 ALP [Catalytic activity/Vol] 83 U/L 35-104 [facility] Serum or plasma calcium agnieszka urement (mass/volume)Ordered By: Guerrero Vasquez on 10-19-2024 Calcium [Mass/Vol] 9.0 mg/dL 7.6-11.0 [facility] Serum or plasma urea nitroge n measurement (mass/volume)Ordered By: Guerrero Vasquez on 10-19-2024 Urea nitrogen [Mass/Vol] 20 mg/dL High 4-19 [facility] Sodium levelOrdered By: Lily Vasquez on 10-19-2024 Sodium [Moles/Vol] 131 mmol/L Low 133-145 [facility] Total proteinOrdered By: Luis Alberto Vasquez on 10-19-2024 Protein [Mass/Vol] 6.7 g/dL 5.9-8.4 [facility] White blood cell (WBC) count Ordered By: Guerrero Vasquez on 10-19-2024 WBC (Bld) [#/Vol] 7.0 10*3/uL 4.4-11.0 [facility] CNPNon 10-17-2024 CNPN Normal [facility] BRIEF OP NOTon 10-10-2024 BRIEF OP NOT HNO ID: [id number] Author: ESTRADA TURNER MD Service: Radiology Author Type: Physician Type: Brief Op Note Filed: 10/10/2024 14:39 Note Text: INTERVENTIONAL RADIOLOGY POST PROCEDURE NOTE DATE: 10/10/24 NAME: Danette Bishop LOG ID: [id number] Pre-Procedure Diagnosis: Imaging findings suspicious for T12 - L1 diskitis Cricket Coach: Surgeons and Role: * Estrada Turner MD, MD - Primary Procedure: Biopsy T12 - L1 disk Anesthesia: Procedural Sedation Findings: Three core specimens with On Control in saline and formalin Estimated Blood Loss: 5 mls Specimen: To histology AND microbiology Complications: None Post-Op/Post-Procedure Diagnosis: Imaging findings suspicious for T12 - L1 diskitis Normal [facility] Bacteria Fld Culton 10-11-19 Bacteria identified Cx Nom (Body fld) ORGANISM ID: 1 Rare Staphylococcus epidermidis GRAM STAIN: No organisms seen No Polymorphonuclear Leukocytes Many Red Blood Cells ORGANISM ID: 1 (STAPHYLOCOCCUS EPIDERMIDIS) ------ ANTIBIOTIC INTERPRETATION CYNDY STATUS REFERENCE RANGE ------ Oxacillin R >1 F Susceptible <1 , Resistant >=1 Oxacillin resistant Staphylococci are resistant to all beta-lactam antibiotics (except new cephalosporins with anti-MRSA activity i.e. ceftaroline) Gentamicin S <=2 F Susceptible <=4 , Intermediate >4 , Resistant >8 Erythromycin R >4 F Susceptible <=0.5 , Intermediate >.5 , Resistant >4 Clindamycin S <=0.5 F Susceptible <=0.5 , Intermediate >.5 , Resistant >2 This isolate does not demonstrate inducible Clindamycin resistance in vitro. Trimeth sulfameth F Trimethoprim/sulfamethoxazol e susceptibility test result was not reported due to a limitation of the test system. Please notify the lab if needed. Vancomycin S 2 F Susceptible <=4 , Intermediate >4 , Resistant >16 Daptomycin S <=1 F Susceptible <=1 , Nonsusceptible >1 Rifampin S <=0.5 F Susceptible <=1 , Intermediate >1 , Resistant >2 Rifampin should not be used alone for antimicrobial therapy. Tetracycline S 1 F Susceptible <=4 , Intermediate >4 , Resistant >8 Abnormal [facility] Comment on above: Performed By: #### 6 11-4 ####[facility] LABORATORYCLIA [id number] [place] [id number] [place] CT ASPIRATION DISC SPACEon 0 10-10-2024 CT ASPIRATION DISC SPACE * * *Final Report* * * DATE OF EXAM: Oct 10 2024 2:48PM [facility] 2025 - CT ASPIRATION DISC SPACE / PROCEDURE REASON: R93.7 * * * * Physician Interpretation * * * * EXAM TITLE: CT GUIDED BIOPSY OF THE T12-L1 DISC SPACE AND ENDPLATE DATE: October 10, 2024 at 2:16 PM COMPARISON: MRI of the thoracic spine from October 04, 2024 CLINICAL INDICATION/HISTORY: The patient is a 79-year-old female with metastatic breast cancer who was found to have imaging findings suspicious for discitis osteomyelitis at T12-L1 on MRI.. CT Radiation dose: Integrated dose-length product (DLP) for this visit = 112 mGy*cm. CT Dose Reduction Employed: Automated exposure control (AEC) was used. TECHNIQUE: Informed consent was obtained from the patient. The risks, benefits, and alternatives to the procedure were explained. The patient agrees to the procedure. The patient was evaluated for the safety and appropriateness of conscious sedation and the Moderate Sedation Record was completed. The patient was sedated with intravenous Fentanyl and Versed administered by the trained independent radiology nurse observer. The patient's vital signs were monitored during the procedure by the trained independent radiology nurse observer. Total intra-service work encounter time was approximately 0 hours and 30 minutes. The patient was placed in a prone position and with CT guidance an appropriate skin entrance site was identified, prepped, and anesthetized. With the anesthesia spinal needle in place a timeout was obtained to confirm the correct position of the needle. An On Control guiding needle was passed into the endplate and disc space at T12-L1 utilizing a left paraspinal approach between the manubrium and pedicle and the inner biopsy needle was passed through the outer guiding needle and 2 passes with the inner biopsy needle were performed. An additional third core was obtained with the guide needle. Specimens were placed in both formalin and saline. The specimen was sent for histology and microbiology. There were no apparent complications. The patient was discharged from the radiology department and will be observed in the POD. FINDINGS: There is endplate destruction and irregularity T12-L1 disc space along with endplate sclerosis. The biopsy passes through the left side of the disc space and endplate. One of the core specimens in formalin was very bulblike and was mainly be endplate. The other specimens were more liquid. . IMPRESSION: Technically successful CT-guided core biopsy of T12-L1 disc space and endplate. Specimen was sent for histology and microbiology. Home Care Liaison: [facility] Transcribe Date/Time: Oct 10 2024 3:01P Dictated by : ESTRADA TURNER MD This examination was interpreted and the report reviewed and electronically signed by: ESTRADA TURNER MD on Oct 10 2024 3:57PM EST [id number] Normal [facility] HISTORY PHYSICALon HISTORY PHYSICAL HNO ID: [id number] Author: ESTRADA TURNER MD Service: Radiology Author Type: Physician Type: H&P Filed: 10/10/2024 13:22 Note Text: UPDATED HISTORY AND PHYSICAL EXAMINATION Date: 10/10/24 Name: Danette Bishop PHYSICAL EXAM MUST BE COMPLETED ON ADMISSION The History and Physical (completed in the past 30 days) has been reviewed and the patient has been examined. The contents accurately reflect the patient's condition with the following additions or revisions since the HANDP was completed. Examination indicates no changes. This HANDP can be found in the Electronic Medical Record dated 10/04/2024 @ 4:46 PM. Normal [facility] PT panel Coag (PPP)on 2024 INR Coag (PPP) [Relative time] 1.0 {INR} Normal 0.9-1.3 [facility] Comment on above: Order Comment: Katrina li Type: BLOOD SPECIMENOrdering Facility: [facility] Address: [address] [place], [place] [id number] Result Comment: Anahi min K Antagonist (VKA) Therapeutic Range: INR 2 to 3 (Target INR of 2.5) Note: For patients treated with VKA drugs, such as warfarin, the [place] [employer] 2012 Guideline recommends a therapeutic INR range of 2 to 3 (target INR of 2.5). This recommendation includes high-risk patients with antiphospholipid syndrome with previous arterial or venous thromboembolism, current-generation mechanical or bioprosthetic aortic heart valve replacement. Note: Patients with mechanical aortic valve replacement and additional risk factors for thromboembolic events (atrial fibrillation, previous thromboembolism, LV dysfunction, hypercoagulable conditions) or an older generation mechanical AVR (i.e., ball in-Cage) or any mechanical MVR should have a INR therapeutic range of 2.5 to 3.5 (target INR of 3). Bibi GH, et al. Chest 2012, 141:7S-47S Stacie RA, et al. [facility] 2017, 70: 252-289 Performed By: #### 3 4528-0 ####[facility] LABORATORYCLIA [id number] [address] [place] PT Coag (PPP) [Time] 10.9 s Normal 9.7-13.0 [facility] Comment on above: Order Comment: Katrina li Type: BLOOD SPECIMENOrdering Facility: [facility] Address: [address] [place] [address] Performed By: #### 3 4528-0 ####[facility] LABORATORYIA [id number] [address] OF [facility] Pathology biopsy report Endy (Tiss)on 10-10-2024 AP DISCLAIMER Normal [facility] Comment on above: Order Comment: Speci guillermo Type: TISSUE SPECIMENOrdering Facility: [facility] Address: [address] [place] [address] Result Comment: Ramiro bonner Developed Test (LDT) Disclaimer: Performance characteristics of immunohistochemical, immunofluorescent, and chromogenic in-situ hybridization tests have been determined by the performing laboratory within [facility]'s [facility] Medicine Department ([facility], [facility], [facility], [facility], [facility], [facility], or [facility]) in a manner consistent with CLIA requirements. One or more of these tests may not have been cleared or approved by the FDA. RT[facility]PLM is regulated under CLIA as qualified to perform high-complexity testing. These tests are used for clinical purposes. These should not be regarded as investigational or for research. Positive and negative controls stain appropriately. Performed By: #### 6 6121-5 ####[facility] [id number] [address] CASE REPORT Normal [facility] Comment on above: Order Comment: Katrina li Type: TISSUE SPECIMENOrdering Facility: [facility] Address: [address] [place] [address] Result Comment: Surg [facility] Pathology Report Case: [id number] Authorizing Provider: Estrada Turner MD, Collected: 10/10/2024 02:44 PM [facility] Received: 10/10/2024 03:12 PM INTERVENTIONAL RADIOLOGY Pathologist: Steve Haro MD Specimen: Intervertebral Disc Performed By: #### 6 6121-5 ####[facility] [id number] [address] CLINICAL HISTORY Imaging findings alfonzo picious for T12 - L1 diskitis Normal [facility] Comment on above: Order Comment: Speci men Type: TISSUE SPECIMENOrdering Facility: [facility] Address: [address] [place] [address] Performed By: #### 6 6121-5 ####[facility] LABORATORYCLIA [id number] [address] DIAGNOSIS COMMENT Normal [facility] Comment on above: Order Comment: Speci men Type: TISSUE SPECIMENOrdering Facility: [facility] Address: [address] [place] [address] Result Comment: Deep er levels were reviewed Clinical and radiographic correlation required. Dr. Hannah Matute reviewed the case and agrees with the diagnosis. Performed By: #### 6 6121-5 ####[facility] LABORATORYCLIA [id number] [address] FINAL DIAGNOSIS Normal [facility] Comment on above: Order Comment: Speci men Type: TISSUE SPECIMENOrdering Facility: [facility] Address: [address] [place] [address] Result Comment: A. I ntervertebral disc, biopsy: - Bone and fibrous tissue with scant, detached acute inflammatory debris. - Organizing blood clot. at 1649 EDT Performed By: #### 6 6121-5 ####[facility] LABORATORYCLIA [id number] [address] FINAL PERFORMING LAB Normal [facility] Comment on above: Order Comment: Speci men Type: TISSUE SPECIMENOrdering Facility: [facility] Address: [address] [place] [address] Result Comment: Diag nostic interpretation performed at: [facility], [address] [place] [address] CLIA# [id number] Speech Pathology Teacher: Cristóbal Delgado MD Performed By: #### 6 6121-5 ####[facility] LABORATORYCLIA [id number] [address] GROSS DESCRIPTION Normal [facility] Comment on above: Order Comment: Speci men Type: TISSUE SPECIMENOrdering Facility: [facility] Address: [address] [place] [address] Result Comment: A. I ntervertebral Disc Received in formalin labeled "intervertebral disc" is a cylindrical segment of bone measuring 1.5 x 0.3 x 0.3 cm. Also received in the same container is a blood clot measuring 2.5 x 0.3 x 0.3 cm. The specimen is totally submitted as follows: A1-bone, following light decalcification A2-blood clot. Gross examination performed at [facility], [address] [place] [address] CLIA# [id number] Performed By: #### 6 6121-5 ####[facility] LABORATORYCLIA [id number] [address] CNCOon 10-08-2024 CNCO Letter Text Normal [facility] CNPNon 10-08-2024 CNPN Telephone (AKPRAD) DANETTE BISHOP ([id number]) 1945 F Date Time Provider Department 10/08/24 GUERRERO VASQUEZ III During your visit today, we recorded the following information about you: Guerrero Vasquez III, MD 10/08/2024 7:09 AM Signed Patient needs outpatient biopsy of spine to assess for infection. Will ask office staff to arrange. Lynne Garcia 10/08/2024 10:13 AM Addendum I.R. will call pt to schedule Pt informed Lynne Garcia Allergies As of Date: 10/08/2024 Noted Allergy Reaction ADHESIVE TAPE-SILICONES 10/27/2020 2 - Rash SHELLFISH DERIVED 08/08/2020 7 - Swelling Date Reviewed: 10/04/2024 Reviewed by: Karen Qureshi RN - Fully Assessed Primary Visit Diagnosis:Abnormal MRI, spine [R93.7] Order(s):IMAGING GUIDED BIOPSY VERTEBRA OR FEMUR [6303098] Order #: [id number] BACTERIAL CULTURE AND GRAM STAIN, TISSUE [SQTISCUL] Order #: [id number] BACTERIAL CULTURE, TISSUE AND WOUND, ANAEROBIC [SQANACUL] Order #: [id number] AFB CULTURE AND STAIN [SQAFC] Order #: [id number] FUNGAL CULTURE AND SMEAR (NON DERMAL) [SQFCULSM] Order #: [id number] SURGICAL PATHOLOGY [BZU9811] Order #: [id number] Prescriptions as of 10/08/2024 - HYDROcodone-acetaminophen (NORCO) 5-325 mg per tablet Take 1 tablet by mouth every 8 hours as needed for pain for up to 7 days. - baclofen 5 mg tablet Take 1 tablet by mouth three times a day as needed. - amLODIPine (NORVASC) 5 mg tablet Take 5 mg by mouth daily at bedtime. - multivit-min/ferrous fumarate (MULTI VITAMIN ORAL) Take 1 tablet by mouth once daily. - letrozole (FEMARA) 2.5 mg tablet Take 1 tablet by mouth once daily. - clopidogrel (PLAVIX) 75 mg tablet (Aug Hold) Take 1 tablet by mouth once daily. Patient should start on December 20, 2023. - FLUoxetine (PROZAC) 40 mg capsule Take 1 capsule by mouth once daily. - levothyroxine (SYNTHROID) 112 mcg tablet Take 112 mcg by mouth once daily. - liothyronine (CYTOMEL) 5 mcg tablet Take 5 mcg by mouth once daily. - lisinopril (ZESTRIL, PRINIVIL) 20 mg tablet Take 20 mg by mouth once daily. - esomeprazole (NEXIUM) 40 mg capsule Take 40 mg by mouth DAILY (6 AM). - ACETAMINOPHEN (TYLENOL ORAL) Take by mouth. - zolpidem (AMBIEN) 10 mg tab Take 10 mg by mouth daily at bedtime. - ALPRAZolam (XANAX) 0.5 mg tablet Take 0.5 mg by mouth at bedtime as needed. Problem List As Of Date 10/08/2024 Noted Resolved 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, right (HCC*08/29/2020 HER2-positive carcinoma of left breast (HCC) [C*08/29/2020 Local recurrence of cancer of left breast (HCC)*04/26/2022 Stage IV breast cancer in female (HCC) [C50.919]04/26/2022 Sleep apnea [G47.30] 06/20/2023 Diagnosed: 06/20/2023 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] 12/31/2022 Diagnosed: 06/20/2023 Hypothyroidism, unspecified [E03.9] 02/15/2022 Diagnosed: 06/20/2023 TIA (transient ischemic attack) [G45.9] 06/20/2023 Grade I diastolic dysfunction [I51.89] 06/20/2023 Anxiety and depression [F41.9, F32.A] 06/20/2023 BCC (basal cell carcinoma of skin) [C44.91] 06/20/2023 Chronic back pain [M54.9, G89.29] 06/20/2023 Carcinoma of left breast, stage 4 (HCC) [C50.91*08/15/2023 Seroma of breast [N64.89] 08/15/2023 Back pain [M54.9] 10/04/2024 Acute midline thoracic back pain [M54.6] 10/04/2024 Discitis of thoracolumbar region [M46.45] 10/04/2024 Encounter Status:Closed by LYNNE GARCIA on 10/08/24 [facility] CNPNon 10-05-[address] [facility] CONSULT PROGon 10-05-2024 CONSULT PROG HNO ID: [id number] Author: GUERRERO VASQUEZ III, MD Service: Infectious Disease Author Type: Physician Type: Consult Progress Note Filed: 10/05/2024 14:06 Note Text: Discussed with Dr. Perdomo. On eliquis so needs a washout period before biopsy. Plan is for outpatient biopsy. I will follow up the culture and pathology then determine next steps from infectious disease. [facility] ALLIED HEALTHon 10-04-2024 ALLIED HEALTH HNO ID: [id number] Author: PEYTON MC RT(R) Service: Radiology Author Type: Technologist Type: Allied Health Filed: 10/04/2024 10:39 Note Text: Radiology Service Progress Note DATE OF SERVICE: October 04, 2024 TIME: 10:38 AM PATIENT IDENTITY VERIFICATION COMPLETED USING TWO (2) STANDARD IDENTIFIERS: Name and Date of confirmed by patient verbally and Name and Date of confirmed by identification band. FALL SCREENING: Has the patient had 2 falls in the last year or 1 fall with injury or currently using an Ambulatory Assistive Device (Walker, Cane, Wheelchair, Crutches, etc.)? Inpatient: Screened on floor PATIENT GENDER DATA: Assigned female at . status: : No status: NO. PATIENT RELEVANT IMPLANT DATA REVIEWED: Yes PATIENT PRESENTS WITH AN IMPLANTABLE OR ATTACHED GARNETTER: No ALLERGIES: Reviewed and unchanged CONTRAST ALLERGY: NO. EXAM: MRI - CONTRAST TYPE: GROUP II PERIPHERAL IV DATA: Inpatient - refer to [facility] documentation RADIOLOGY DEPARTMENT: MR; Exam(s) Completed: Spine: Cervical spine and Thoracic spine. Lavender Administered: No SIGNATURE: RT Radha(R) PATIENT NAME: Danette Bishop DATE: October 04, 2024 TIME: 10:38 AM Normal [facility] Basic metabolic 2000 panelon 10-04-2024 Anion gap [Moles/Vol] 11 mmol/L Normal 8-15 [facility] Comment on above: Order Comment: Katrina li Type: BLOOD SPECIMENOrdering Facility: [facility] Address: [address] [place] [address] Performed By: #### 2 4320-07, ####[facility] LABORATORYCLIA [id number] [place] [address] [place] Calcium [Mass/Vol] 9.1 mg/dL Normal 8.5-10.2 [facility] Comment on above: Order Comment: Katrina li Type: BLOOD SPECIMENOrdering Facility: [facility] Address: [address] [place] [address] Performed By: #### 2 432-, ####[facility] LABORATORYCLIA [id number] [place] [address] [place] Chloride [Moles/Vol] 102 mmol/L Normal 98-107 [facility] Comment on above: Order Comment: Katrina li Type: BLOOD SPECIMENOrdering Facility: [facility] Address: [address] [place] [address] Performed By: #### 2 4320-07, ####[facility] LABORATORYCLIA [id number] [place] [address] [place] CO2 [Moles/Vol] 25 mmol/L Normal 22-30 [facility] Comment on above: Order Comment: Speci men Type: BLOOD SPECIMENOrdering Facility: [facility] Address: [address] [place] [address] Performed By: #### 2 4320-07, ####[facility] LABORATORYCLIA [id number] [place] [id number] [place] [facility] Creatinine [Mass/Vol] 0.56 mg/dL Low 0.58-0.96 [facility] Comment on above: Order Comment: Speci men Type: BLOOD SPECIMENOrdering Facility: [facility] Address: [address] [place] [address] Performed By: #### 2 4320-07, ####[facility]ISIA [id number] [address] Creatinine and Glomerular filtration rate.predicted panel (S/P/Bld) 93 mL/min/1.73m??? Normal >=60 [facility] Comment on above: Order Comment: Speci men Type: BLOOD SPECIMENOrdering Facility: [facility] Address: [address] [place] [address] Result Comment: Amina mated Glomerular Filtration Rate (eGFR) is calculated using the 2020 CKD-EPI creatinine equation. This equation utilizes serum creatinine, sex, and age as parameters. The creatinine assay has traceable calibration to isotope dilution-mass spectrometry. Refer to KDIGO guidelines for clinical interpretation. In patients with unstable renal function, e.g. those with acute kidney injury, the eGFR may not accurately reflect actual GFR. Performed By: #### 2 4320-07, ####[facility] LABORATORYCLIA [id number] [place] [id number] [place] [facility] Glucose [Mass/Vol] 97 mg/dL Normal 74-99 [facility] Comment on above: Order Comment: Speci men Type: BLOOD SPECIMENOrdering Facility: [facility] Address: [address] [place] [address] Result Comment: The [place] Diabetes Association (ADA) provides guidance for cutoff values for fasting glucose and random glucose. The ADA defines fasting as no caloric intake for at least 8 hours. Fasting plasma glucose results between 100 to 125 mg/dL indicate increased risk for diabetes (prediabetes). Fasting plasma glucose results greater than or equal to 126 mg/dL meet the criteria for diagnosis of diabetes. In the absence of unequivocal hyperglycemia, results should be confirmed by repeat testing. In a patient with classic symptoms of hyperglycemia or hyperglycemic crisis, random plasma glucose results greater than or equal to 200 mg/dL meet the criteria for diagnosis of diabetes. Reference: Standards of Medical Care in Diabetes 2016, [place] Diabetes Association. Diabetes Care. 2016.39(Suppl 1). Performed By: #### 2 4320-07, ####[facility] LABORATORYCLIA [id number] [place] [address] [place] Potassium [Moles/Vol] 3.8 mmol/L Normal 3.7-5.1 [facility] Comment on above: Order Comment: Speci men Type: BLOOD SPECIMENOrdering Facility: [facility] Address: [address] [place] [address] Performed By: #### 2 4320-07, ####[facility] LABORATORYCLIA [id number] [place] [address] [place] Sodium [Moles/Vol] 138 mmol/L Normal 136-144 [facility] Comment on above: Order Comment: Speci men Type: BLOOD SPECIMENOrdering Facility: [facility] Address: [address] [place] [address] Performed By: #### 2 4320-07, ####[facility] LABORATORYCLIA [id number] [place] [address] [place] Urea nitrogen [Mass/Vol] 11 mg/dL Normal 7-21 [facility] Comment on above: Order Comment: Speci men Type: BLOOD SPECIMENOrdering Facility: [facility] Address: [address] [place] [id number] Performed By: #### 2 4320-07, ####[facility]ATORYCLIA [id number] [place] [address] [place] CBC W Auto Differential pane l (Bld)on 10-04-2024 Basophils (Bld) [#/Vol] 0.08 10*3/uL Normal <0.11 [facility] Comment on above: Order Comment: Speci men Type: BLOOD SPECIMENOrdering Facility: [facility] Address: [address] [place] [address] Performed By: #### 5 7021-8 ####[facility]ORATORYCLIA [id number] [place] [address] [place] Basophils/100 WBC (Bld) 0.9 % Normal [facility] Comment on above: Order Comment: Speci men Type: BLOOD SPECIMENOrdering Facility: [facility] Address: [address] [place] [address] Performed By: #### 5 7021-8 ####[facility] LABORATORYCLIA [id number] [address] [place] Differential cell count method Nom (Bld) Auto Normal [facility] Comment on above: Order Comment: Speci men Type: BLOOD SPECIMENOrdering Facility: [facility] Address: [address] [place] [address] Performed By: #### 5 7021-8 ####[facility]ATORYCLIA [id number] [place] [address] [place] Eosinophils (Bld) [#/Vol] 0.11 10*3/uL Normal <0.46 [facility] Comment on above: Order Comment: Speci men Type: BLOOD SPECIMENOrdering Facility: [facility] Address: [address] [place] [address] Performed By: #### 5 7021-8 ####[facility]ATORYCLIA [id number] [address] [place] Eosinophils/100 WBC (Bld) 1.3 % Normal [facility] Comment on above: Order Comment: Speci men Type: BLOOD SPECIMENOrdering Facility: [facility] Address: [address] [place] [address] Performed By: #### 5 7021-8 ####[facility] LABORATORYCLIA [id number] [address] [place] Erythrocyte distribution width (RBC) [Ratio] 15.7 % High 11.5-15.0 [facility] Comment on above: Order Comment: Speci men Type: BLOOD SPECIMENOrdering Facility: [facility] Address: [address] [place] [address] Performed By: #### 5 7021-8 ####[facility] LABORATORYCLIA [id number] [address] OF [facility] Hematocrit (Bld) [Volume fraction] 35.5 % Low 36.0-46.0 [facility] Comment on above: Order Comment: Speci men Type: BLOOD SPECIMENOrdering Facility: [facility] Address: [address] [place] [address] Performed By: #### 5 7021-8 ####[facility] LABORATORYCLIA [id number] [address] [place] Hemoglobin (Bld) [Mass/Vol] 11.8 g/dL Normal 11.5-15.5 [facility] Comment on above: Order Comment: Speci men Type: BLOOD SPECIMENOrdering Facility: [facility] Address: [address] [place] [address] Performed By: #### 5 7021-8 ####[facility] LABORATORYCLIA [id number] [address] Immature granulocytes (Bld) [#/Vol] 0.03 10*3/uL Normal <0.10 [facility] Comment on above: Order Comment: Speci men Type: BLOOD SPECIMENOrdering Facility: [facility] Address: [address] [place] [address] Performed By: #### 5 7021-8 ####[facility] LABORATORYCLIA [id number] [address] Immature granulocytes/100 WBC (Bld) 0.4 % Normal [facility] Comment on above: Order Comment: Speci men Type: BLOOD SPECIMENOrdering Facility: [facility] Address: [address] [place] [address] Performed By: #### 5 7021-8 ####[facility]ORATORYCLIA [id number] [address] [place] Lymphocytes (Bld) [#/Vol] 2.12 10*3/uL Normal 1.00-4.00 [facility] Comment on above: Order Comment: Speci men Type: BLOOD SPECIMENOrdering Facility: [facility] Address: [address] [place] [address] Performed By: #### 5 7021-8 ####[facility] LABORATORYCLIA [id number] [address] [place] OF [facility] Lymphocytes/100 WBC (Bld) 25.1 % Normal [facility] Comment on above: Order Comment: Speci men Type: BLOOD SPECIMENOrdering Facility: [facility] Address: [address] [place] [address] Performed By: #### 5 7021-8 ####[facility] LABORATORYCLIA [id number] [address] [place] MCH (RBC) [Entitic mass] 29.9 pg Normal 26.0-34.0 [facility] Comment on above: Order Comment: Speci men Type: BLOOD SPECIMENOrdering Facility: [facility] Address: [address] [place] [address] Performed By: #### 5 7021-8 ####[facility] LABORATORYCLIA [id number] [address] [place] MCHC (RBC) [Mass/Vol] 33.2 g/dL Normal 30.5-36.0 [facility] Comment on above: Order Comment: Speci men Type: BLOOD SPECIMENOrdering Facility: [facility] Address: [address] [place] [address] Performed By: #### 5 7021-8 ####[facility]ATORYCLIA [id number] [address] [place] MCV (RBC) [Entitic vol] 89.9 fL Normal 80.0-100.0 [facility] Comment on above: Order Comment: Speci men Type: BLOOD SPECIMENOrdering Facility: [facility] Address: [address] [place] [address] Performed By: #### 5 7021-8 ####[facility] LABORATORYCLIA [id number] [place] [address] [place] Monocytes (Bld) [#/Vol] 0.72 10*3/uL Normal <0.87 [facility] Comment on above: Order Comment: Speci men Type: BLOOD SPECIMENOrdering Facility: [facility] Address: [address] [place] [address] Performed By: #### 5 7021-8 ####[facility] LABORATORYCLIA [id number] [address] [place] Monocytes/100 WBC (Bld) 8.5 % Normal [facility] Comment on above: Order Comment: Speci men Type: BLOOD SPECIMENOrdering Facility: [facility] Address: [address] [place] [address] Performed By: #### 5 7021-8 ####[facility] LABORATORYCLIA [id number] [address] [place] Neutrophils (Bld) [#/Vol] 5.38 10*3/uL Normal 1.45-7.50 [facility] Comment on above: Order Comment: Speci men Type: BLOOD SPECIMENOrdering Facility: [facility] Address: [address] [place] [address] Performed By: #### 5 7021-8 ####[facility]ORATORYCLIA [id number] [address] [place] Neutrophils/100 WBC (Bld) 63.8 % Normal [facility] Comment on above: Order Comment: Speci men Type: BLOOD SPECIMENOrdering Facility: [facility] Address: [address] [place] [address] Performed By: #### 5 7021-8 ####[facility] LABORATORYCLIA [id number] [place] [address] [place] Nucleated RBC (Bld) [#/Vol] 10*3/uL Normal <0.01 [facility] Comment on above: Order Comment: Speci men Type: BLOOD SPECIMENOrdering Facility: [facility] Address: [address] [place] [address] Performed By: #### 5 7021-8 ####[facility]ORATORYCLIA [id number] [place] [address] [place] Nucleated RBC/100 WBC (Bld) [Ratio] 0.0 /100 WBC Normal [facility] Comment on above: Order Comment: Speci men Type: BLOOD SPECIMENOrdering Facility: [facility] Address: [address] [place] [address] Performed By: #### 5 7021-8 ####[facility]ORATORYCLIA [id number] [place] [address] [place] Platelet mean volume (Bld) [Entitic vol] 9.1 fL Normal 9.0-12.7 [facility] Comment on above: Order Comment: Speci men Type: BLOOD SPECIMENOrdering Facility: [facility] Address: [address] [place] [address] Performed By: #### 5 7021-8 ####[facility]ORATORYCLIA [id number] [place] [address] [place] Platelets (Bld) [#/Vol] 412 10*3/uL High 150-400 [facility] Comment on above: Order Comment: Speci men Type: BLOOD SPECIMENOrdering Facility: [facility] Address: [address] [place] [address] Performed By: #### 5 7021-8 ####[facility]ORATORYCLIA [id number] [place] [address] [place] RBC (Bld) [#/Vol] 3.95 10*6/uL Normal 3.90-5.20 [facility] Comment on above: Order Comment: Speci men Type: BLOOD SPECIMENOrdering Facility: [facility] Address: [address] [place] [id number] Performed By: #### 5 7021-8 ####[facility] LABORATORYCLIA [id number] [place] [id number] [facility] WBC (Bld) [#/Vol] 8.44 10*3/uL Normal 3.70-11.00 [facility] Comment on above: Order Comment: Speclissette li Type: BLOOD SPECIMENOrdering Facility: [facility] Address: [address] [place], [place] [address] Performed By: #### 5 7021-8 ####[facility] LABORATORYCLIA [id number] [place] [id number] [facility] CONSULTon 10-04-2024 CONSULT HNO ID: [id number] Author: GUERRERO VASQUEZ III, MD Service: Infectious Disease Author Type: Resident Type: Consults Filed: 10/04/2024 16:45 Note Text: Attestation with edits by Guerrero Vasquez III, MD at 10/04/2024 4:46 PM (Updated) Attending Note I evaluated the patient and personally participated in the garcia components. I agree with the resident's findings and plan with the following revisions and/or additions: see bold italics for additions and clarifications. I have performed the following services under complex antimicrobial therapy counseling and treatment: Engaged in complex medical decision-making associated with antimicrobial prescribing. Signature: Guerrero Vasquez III, MD Date: 10/04/2024 Time: 4:45 PM INFECTIOUS DISEASE CONSULT NOTE SERVICE DATE: 10/04/2024 SERVICE TIME: 8:10am Consult reason: thoracic back pain with MRI showing discitis/OM Subjective HISTORY: Mrs Bishop is a 79YOF with PMHx including breast cancer, GI bleed, TIA who presents to [facility] for concerns of worsening back pain. Atraumatic back pain starting in August. Initial MRI with concerns for metastatic lesion in T6 and T11. MRI lumbar spine 10/02 with new T12-L1 discitis/osteomyelitis. Surgery evaluated patient and recommend IR biopsy. Per chart review, no reported cauda symptoms. No fevers, chills, dysuria, bleeding. ID consulted today for possible OM. Patient afebrile. No leukocytosis. CRP 0.8. Patient seen this morning with family present at bedside. Patient continues to have back pain that worsens with movement. No neurologic signs, no loss of bowel/bladder control. Imaging reviewed. Site of concern appears to be different from prior XLIF surgery performed. Impression/Plan Given lack of systemic signs and negative lab work, we can monitor patient off antibiotics. Will continue following for the results of IR biopsy. Would expect if infectious for patient to have constitutional symptoms which we are not seeing. Also no sign of inflammation in the paraspinal area which is usually seen with infection. Based on this along with low CRP my suspicion for infection is low. Will see what IR biopsy shows (both culture and pathology). Likely will also opt for nuclear imaging to help reassure infectious process not seen- debating gallium scan plus bone scan vs PET. Need to review literature for this again. Hold antibiotics while awaiting biopsy. Liborio Ruggiero MD 10/04/2024 8:12 AM pgr [phone] Plan not final till attested by Dr. Vasquez PERTINENT ROS: Current Facility-Administered Medications Medication Dose Route Frequency HYDROcodone 5 mg - acetaminophen 325 mg tablet (NORCO) 1 tablet ORAL q 6 H PRN zolpidem 10 mg tab(s) (AMBIEN) 10 mg ORAL AT BEDTIME PRN letrozole 2.5 mg tab(s) (FEMARA) 2.5 mg ORAL DAILY clopidogrel 75 mg tab(s) (PLAVIX) 75 mg ORAL DAILY lisinopril 20 mg tab(s) (ZESTRIL) 20 mg ORAL DAILY FLUoxetine 40 mg cap(s) (PROzac) 40 mg ORAL DAILY baclofen 5 mg tab(s) 5 mg ORAL TID levothyroxine 112 mcg tab(s) (SYNTHROID) 112 mcg ORAL DAILY (6 AM) liothyronine 5 mcg tab(s) (CYTOMEL) 5 mcg ORAL DAILY morphine 4 mg injection 4 mg INTRAVENOUS q [address] 40 mg tab(s) (PROTONIX) 40 mg ORAL DAILY (6 AM) iv contrast (radiology procedure) INTRAVENOUS DIRECTED PRN iv contrast (radiology procedure) INTRAVENOUS DIRECTED PRN vancomycin dosing and monitoring per pharmacy OTHER As Directed cefepime 2 g in D5W 100 mL Vial-Bag (MAXIPIME) 2 g INTRAVENOUS q 8 H NaCl 0.9% iv flush bag 20 mL INTRAVENOUS PRN vancomycin iv piggyback 1 g in D5W 200 mL (VANCOCIN) 0.015 g/kg/dose INTRAVENOUS q 24 HR Active Antimicrobials (From admission, onward) Start Stop 10/04/24 0000 vancomycin dosing and monitoring per pharmacy OTHER, DIRECTED -- 10/04/24 0000 cefepime 2 g in D5W 100 mL Vial-Bag (MAXIPIME) 2 g, INTRAVENOUS, EVERY 8 HOURS -- 10/04/24 0000 vancomycin iv piggyback 1 g in D5W 200 mL (VANCOCIN) 0.015 g/kg/dose, INTRAVENOUS, EVERY 24 HOURS -- Objective PHYSICAL EXAM: BP 151/74 Pulse 81 Temp (Src) 97.7 (Oral) Resp 16 Ht 5' 1" (1.55m) Wt 146 lb (66.2kg) SpO2 98% BMI 27.60 kg/(m2). O2 Therapy: Room Air Temp last 24 hours: Temp (24hrs), Av.8 ?C (98.3 ?F), Min:36.5 ?C (97.7 ?F), Max:37.1 ?C (98.7 ?F) .Physical Exam Constitutional: General: She is not in acute distress. HENT: Head: Normocephalic. Mouth/Throat: Mouth: Mucous membranes are moist. Pulmonary: Effort: No respiratory distress. Abdominal: General: There is no distension. Tenderness: There is no abdominal tenderness. Skin: Comments: Lower back excision site examined without overt signs of infection Neurological: General: No focal deficit present. Some tenderness present in lumbar area but relat (more content not included)... Normal [facility] CONSULT PROGon 10-04-2024 CONSULT PROG HNO ID: [id number] Author: DAYNA ZARCO RPh Service: Pharmacy Author Type: Pharmacist Type: Consult Progress Note Filed: 10/04/2024 14:17 Note Text: PHARMACY VANCOMYCIN DOSING NOTE Patient Name: Danette Bishop Admission Date: 10/03/2024 Date of Consult: 10/04/2024 Time of Consult: 2:17 PM RECOMMENDATIONS/PLAN: Pharmacy consulted for vancomycin dosing for Danette Bishop, a 79 year old female. Vancomycin therapy has been discontinued. Vancomycin level(s) have been discontinued: Yes. The pharmacy vancomycin dosing service will sign off. Thank you for allowing us to participate in this patient's care. Please contact pharmacy if there are questions. Dayna Zarco RPh [facility] ED NOTEon 10-04-2024 ED NOTE HNO ID: [id number] Author: KODAK HORTON RN Service: ? Author Type: Registered Nurse Type: ED Notes Filed: 10/04/2024 01:29 Note Text: Report called to 5400 RN, 5400 RN ready for pt at this time [facility] ED NOTE HNO ID: [id number] Author: KODAK HORTON RN Service: ? Author Type: Registered Nurse Type: ED Notes Filed: 10/04/2024 00:52 Note Text: 5400 informed of handoff completion at this time. 5400 not ready for pt at this time [facility] ED NOTE HNO ID: [id number] Author: KODAK HORTON RN Service: ? Author Type: Registered Nurse Type: ED Notes Filed: 10/04/2024 00:02 Note Text: MRI form completed with pt and charted on flowsheets at this time [facility] ED PROV NOTEon 10-04-2024 ED PROV NOTE HNO ID: [id number] Author: KSENIA ESTEVEZ, Service: ? Author Type: Physician Type: ED Provider Notes Filed: 10/04/2024 00:16 Note Text: Care for this patient was assumed from the previous provider. I have reviewed the case and plan for the patient. Any pertinent finding or changes in the patient's condition are documented below. The patient was signed out to me by Dr. Albright pending consultation by on-call spine specialty. The patient has been seen by the spine service in the emergency department. They request that the patient undergo additional diagnostic imaging including MRI of the both the cervical and thoracic spines. They also feel that the patient can be admitted to the medical service and they can remain on consult. There was mention of possible concern for discitis, however, that has not been definitively determined at this time. The patient has had blood cultures obtained. The patient will be given a dose of IV antibiotics empirically at this time pending additional diagnostic imaging and blood culture results. The patient has remained hemodynamically stable in the ED. The patient's admission has been accepted by the on-call hospitalist team. KSENIA ESTEVEZ 10/04/24 0016 Normal [facility] HISTORY PHYSICALon HISTORY PHYSICAL HNO ID: [id number] Author: NEHEMIAS MENDOZA MD Service: Hospital Medicine Author Type: Physician Type: H&P Filed: 10/04/2024 06:11 Note Text: DEPARTMENT OF HOSPITAL MEDICINE HISTORY AND PHYSICAL EXAM SERVICE DATE: 10/04/2024 SERVICE TIME: 4:04 AM Primary Care Physician: Tami Chang MD NIGHT AND WEEKEND COVERAGE: From 7am - 7pm, please call Sound After 7pm, please call cross cover pager #[phone] Subjective CHIEF COMPLAINT: Worsening back pain HPI: This is a 79 year old female with hx of left sided metastatic breast cancer, HTN, hx of GI bleed, TIA, who presents with worsening back pain. She had a MRI done yesterday which showed T12-L1 discitis. She denies any cauda symptoms. No known trauma. Pt denies headache, fever, chills, vision changes, swallowing problems, neck pain, chest pain, shortness of breath, cough, abdominal pain, flank pain, nausea, vomiting, diarrhea, constipation, bleeding, urinary problems. No other associated symptoms. No other known aggravating or relieving factors. She is afebrile and hypertensive, 97% on RA. BMP was normal, CBC was normal, 2023 Echo grade I diastolic dysfunction EF 58%. PAST MEDICAL HISTORY Diagnosis Date Breast cancer (HCC) 2012 left Breast cancer (HCC) 04/2023 local recurrence on left GI bleed 2008 Hypertension Liver nodule TIA (transient ischemic attack) 2012 PAST SURGICAL HISTORY Procedure Laterality Date COLONOSCOPY every 5 yrs due to f/h colon cqan all normal per pt EGD GERD EGD 09/01/2020 Repeat in 2 years INSJ TUNNELED CTR VAD W/SUBQ PORT AGE 5 YR/> 09/29/2020 PAST SURGICAL HISTORY OF thyroid removal PAST SURGICAL HISTORY OF left breast 2 episodes of DCIS PAST SURGICAL HISTORY OF back surgeries times 2 FAMILY HISTORY Problem Relation Age of Onset Colon Cancer Mother mets to stomach Stroke Father at age 62 Breast Cancer Sister 85 Heart disease Paternal Grandmother CAD Social History Tobacco Use Smoking status: Former Current packs/day: 0.00 Types: Cigarettes Start date: 09/17/1963 Quit date: 09/16/1965 Years since quittin.0 Smokeless tobacco: Never Tobacco comments: Pt smoked 2-3 cigarettes daily x 2 years. Vaping Use Vaping status: Never Used Substance Use Topics Alcohol use: Yes Comment: moderate Drug use: No HOME MEDICATIONS: Prior to Admission Medications Prescriptions Last Dose Informant Patient Reported? Taking? ACETAMINOPHEN (TYLENOL ORAL) Yes Yes Sig: Take by mouth. ALPRAZolam (XANAX) 0.5 mg tablet Yes Yes Sig: Take 0.5 mg by mouth at bedtime as needed. FLUoxetine (PROZAC) 40 mg capsule No Yes Sig: Take 1 capsule by mouth once daily. HYDROcodone-acetaminophen (NORCO) 5-325 mg per tablet No Yes Sig: Take 1 tablet by mouth every 6 hours as needed for pain for up to 3 days. amLODIPine (NORVASC) 5 mg tablet Yes Yes Sig: Take 5 mg by mouth daily at bedtime. baclofen 5 mg tablet Yes Yes Sig: Take 5 mg by mouth three times a day. clopidogrel (PLAVIX) 75 mg tablet No Yes Sig: Take 1 tablet by mouth once daily. Patient should start on December 20, 2023. esomeprazole (NEXIUM) 40 mg capsule Yes Yes Sig: Take 40 mg by mouth DAILY (6 AM). letrozole (FEMARA) 2.5 mg tablet No Yes Sig: Take 1 tablet by mouth once daily. levothyroxine (SYNTHROID) 112 mcg tablet Yes Yes Sig: Take 112 mcg by mouth once daily. liothyronine (CYTOMEL) 5 mcg tablet Yes Yes Sig: Take 5 mcg by mouth once daily. lisinopril (ZESTRIL, PRINIVIL) 20 mg tablet Yes Yes Sig: Take 20 mg by mouth once daily. multivit-min/ferrous fumarate (MULTI VITAMIN ORAL) Yes Yes Sig: Take 1 tablet by mouth once daily. zolpidem (AMBIEN) 10 mg tab Yes Yes Sig: Take 10 mg by mouth daily at bedtime. Facility-Administered Medications: None ALLERGIES Allergen Reactions Adhesive Tape-Silic* Rash Shellfish Derived Swelling REVIEW OF SYSTEM: All ROS are negative except those noted in HPI Objective PHYSICAL EXAM: BP 172/98 Pulse 84 Temp (Src) 98.6 (Oral) Resp 18 Ht 5' 1" (1.55m) Wt 146 lb (66.2kg) SpO2 97% BMI 27.60 kg/(m2). O2 Therapy: Room Air GENERAL: Alert, no distress, cooperative, NAD SKIN: Warm, dry intact, no open lesions, no rashs HEAD/SINUSES: Normocephalic, atraumatic, oral mucosa moist EYES: PERRLA, EOMI NECK: No jugulovenous distention, Supple, no adenopathy LUNGS: Lungs clear to auscultation, no wheezes, ronchi, or rales CARDIAC: RRR, Normal S1 and S2; no rubs, murmurs, or gallops ABDOMEN: Abdomen soft, non-tender, BS normal, No masses or organomegaly EXTREMITIES: Extremities normal, no deformities, edema, clubbing or skin discoloration. NEURO: Sensation grossly intact, Cranial nerves II-XII intact, moves all 4 extremities, speech was clear and coherent - no chronic queen DATA: Diagnostic tests reviewed for today's visit: Most recent labs and imaging results. CBC: Recent Labs 10/03/24 1349 WBC 8.85 RBC 3.97 HB 11.9 HCT 34.7* (more content not included)... Normal [facility] MRI CERVICAL SPINE WO/W IVCO Non 10-04-2024 MRI CERVICAL SPINE WO/W IVCON * * *Final Report* * * DATE OF EXAM: Oct 04 2024 11:42AM [facility] 0298 - MRI CERVICAL SPINE WO/W IVCON / PROCEDURE REASON: Possible T12-L1 discitis * * * * Physician Interpretation * * * * EXAMINATION: MRI CERVICAL SPINE WITHOUT AND WITH IV CONTRAST CLINICAL HISTORY: Possible T12-L1 discitis . History of metastatic breast cancer. Back pain. TECHNIQUE: Routine cervical spine MR protocol without gadolinium. MQ: [id number] COMPARISON: PET/CT 07/11/2024. RESULT: Counting reference: Craniocervical junction. Anatomic Variants: None. Localizer images: A fluid collection, most likely seroma is noted in the left chest wall/axilla, also present on prior PET CT. Alignment: Minimal anterolisthesis at the C2-C3, C3-C4, and C7-T1 levels.. Craniocervical junction: Craniocervical junction is normal. Cord: The visualized cord is within normal limits of signal intensity and morphology. Bone marrow signal/fracture: No evidence of bone marrow edema to suggest osteomyelitis. No evidence of pathologic marrow infiltration. No evidence of prior fracture. No abnormal contrast enhancement. Cervical soft tissues: The paraspinal soft tissues are within normal limits. C2-C3: Minimal anterolisthesis. Canal and foramina are patent. C3-C4: Minimal anterolisthesis. Canal and foramina are patent. C4-C5: Mild diffuse disc osteophyte complex. Mild central canal stenosis. Bilateral neural foraminal narrowing due to uncovertebral joint and/or facet joint hypertrophy. C5-C6: Mild diffuse disc disc osteophyte complex. Mild central canal stenosis. Bilateral neural foraminal narrowing due to uncovertebral joint and facet joint hypertrophy. C6-C7: Diffuse disc osteophyte complex. Mild central canal stenosis. Mild bilateral neural foraminal narrowing due to uncovertebral joint and facet joint hypertrophy. C7-T1: Minimal anterolisthesis. Canal and foramina are patent. IMPRESSION: 1. Multilevel degenerative change cervical spine as detailed above with mild multilevel central canal stenosis and multilevel degenerative neural foraminal narrowing. 2. No evidence of cervical discitis/osteomyelitis. No findings to suggest cervical spinal metastatic disease.. Anatomic Variant: None. Assume 7 cervical vertebrae with counting from the craniocervical junction. Home Care Liaison: YOLIS Transcribe Date/Time: Oct 04 2024 1:21P Dictated by : LC DHALIWAL MD This examination was interpreted and the report reviewed and electronically signed by: LC DHALIWAL MD on Oct 04 2024 1:44PM EST [id number] Normal [facility] MRI THORACIC SPINE WO/W IVCO Non 10-04-2024 MRI THORACIC SPINE WO/W IVCON * * *Final Report* * * DATE OF EXAM: Oct 04 2024 11:42AM [facility] 0326 - MRI THORACIC SPINE WO/W IVCON / PROCEDURE REASON: Possible T12-L1 discitis * * * * Physician Interpretation * * * * EXAMINATION: MRI THORACIC SPINE WITHOUT AND WITH IV CONTRAST CLINICAL HISTORY: Possible T12-L1 discitis. Abnormal MRI lumbar spine. History of metastatic breast cancer. TECHNIQUE: Routine thoracic spine MR protocol with and without intravenous gadolinium. MQ: [id number] Contrast: IV administration of 7 ml of Elucirem COMPARISON: MRI lumbar spine 10/02/2024. RESULT: Counting reference: Craniocervical and lumbosacral junctions. For the purposes of this report, L4-5 is considered the level of the iliac crest and assume there are 5 lumbar-type vertebrae. Anatomic variant: None. Localizer images: Unremarkable. Alignment: T12-L1 minimal retrolisthesis. Cord: The visualized cord is within normal limits of signal intensity and morphology. Bone marrow signal/fracture: There is abnormal decreased T1 and increased T2 signal with abnormal contrast enhancement noted in the endplates adjacent to the T12-L1 disc space. There is significant disc space narrowing at the T12-L1 level. There is a focal sclerotic area of abnormal signal noted in the T6 vertebral body that has been present since at least. 2020 and is not appear significantly changed Thoracic paraspinal soft tissues: No epidural or paravertebral fluid collection. The paraspinal soft tissues are within normal limits. Canal and foramina: T10-T11: Small left paracentral disc protrusion narrowing the anterior subarachnoid space with mild central canal stenosis. T11-T12 minimal disc bulging eccentric to the right without significant central canal stenosis. T12-L1: Mild retrolisthesis. Mild endplate osteophyte formation and disc bulging. Mild central canal stenosis. The thoracic canal and foramina are otherwise unremarkable. IMPRESSION: 1. Bone marrow edema and abnormal enhancement involving the T12 inferior endplate and L1 superior endplate. The primary difference consideration is discitis with osteomyelitis. The possibility of aggressive acute degenerative bone marrow signal changes could also give this appearance. There is no evidence of abscess. Clinical correlation is needed. 2. Mild degenerative changes of the thoracic spine with T12-L1 minimal retrolisthesis. 3. Mild central canal stenosis at the T10-T11 and T12-L1 levels. 4. Stable sclerotic focus in the T6 vertebral body, most likely representing a giant bone island given its stability. Anatomic Thoracic/Lumbar Variant: Transitional S1 vertebral body. L4-5 is considered the level of the iliac crest and there are 5 lumbar-type vertebrae. Home Care Liaison: PSCB Transcribe Date/Time: Oct 04 2024 12:29P Dictated by : LC DHALIWAL MD This examination was interpreted and the report reviewed and electronically signed by: LC DHALIWAL MD on Oct 04 2024 1:18PM EST [id number] Normal [facility] Magnesium SerPl-mCncon 10-04 Magnesium [Mass/Vol] 2.2 mg/dL Normal 1.7-2.3 [facility] Comment on above: Order Comment: Speci men Type: BLOOD SPECIMENOrdering Facility: [facility] Address: [address] [place] [address] Performed By: #### 2 4321-2, 08610-9 ####[facility]ENTERCLIA [id number] [address] [place] STAPHYLOCOCCUS AUREUS AND MR SA SCREEN, PCR, NASALon 10-04-2024 S. aureus and MRSA panel SHIVAM+probe (Nose) Not detected Normal Not Detected [facility] Comment on above: Order Comment: Speci men Type: SWABOrdering Facility: [facility] Address: [address] [place] [address] Performed By: #### S APCR ####[facility]ATORYCLIA [id number] [place] [address] [place] Urinalysis complete panel (U )on 10-04-2024 Bilirubin Ql (U) Negative Normal Negative [facility] Comment on above: Order Comment: Speci men Type: URINE SPECIMENOrdering Facility: [facility] Address: [address] [place] [address] Performed By: #### 2 4356-8 ####[facility]ATORYCLIA [id number] [place], [place] [address] [place] [address] [place] Clarity (Unsp spec) Clear Normal Clear [facility] Comment on above: Order Comment: Speci men Type: URINE SPECIMENOrdering Facility: [facility] Address: [address] [place] [address] Performed By: #### 2 4356-8 ####[facility]ATORYCLIA [id number] [place] [address] [place] Color (U) Colorless Normal yellow [facility] Comment on above: Order Comment: Speci men Type: URINE SPECIMENOrdering Facility: [facility] Address: [facility] [place] [address] Performed By: #### 2 4356-8 ####[facility]ORATORYCLIA [id number] [address] [place] Glucose Test strip (U) [Mass/Vol] Negative Normal Trace, Negative [facility] Comment on above: Order Comment: Speci men Type: URINE SPECIMENOrdering Facility: [facility] Address: [address] [place] [address] Performed By: #### 2 4356-8 ####[facility]ATORYCLIA [id number] [place] [address] [place] Hemoglobin Ql (U) Negative Normal Negative, Trace [facility] Comment on above: Order Comment: Speci men Type: URINE SPECIMENOrdering Facility: [facility] Address: [address] [place] [address] Performed By: #### 2 4356-8 ####[facility]ORYCLIA [id number] [place] [address] [place] Ketones Ql (U) Negative Normal Negative, Trace [facility] Comment on above: Order Comment: Speci men Type: URINE SPECIMENOrdering Facility: [facility] Address: [address] [place] [address] Performed By: #### 2 4356-8 ####[facility]ATORYCLIA [id number] [place] [address] Leukocyte esterase Test strip Ql (U) Negative Normal Negative, 25 [place]/uL [facility] Comment on above: Order Comment: Speci men Type: URINE SPECIMENOrdering Facility: [facility] Address: [address] [place] [address] Performed By: #### 2 4356-8 ####[facility]ATORYCLIA [id number] [address] Nitrite Ql (U) Negative Normal Negative [facility] Comment on above: Order Comment: Speci men Type: URINE SPECIMENOrdering Facility: [facility] Address: [address] [place] [address] Performed By: #### 2 4356-8 ####[facility]ATORYCLIA [id number] [address] [place] pH (U) 7.0 [pH] Normal 5.0-8.0 [facility] Comment on above: Order Comment: Speci men Type: URINE SPECIMENOrdering Facility: [facility] Address: [address] [place] [address] Performed By: #### 2 4356-8 ####[facility]ATORYCLIA [id number] [address] Protein (U) [Mass/Vol] Negative Normal Trace , Negative [facility] Comment on above: Order Comment: Speci men Type: URINE SPECIMENOrdering Facility: [facility] Address: [address] [place] [address] Performed By: #### 2 4356-8 ####[facility]ATORYCLIA [id number] [address] RBC LM.HPF (Urine sed) [#/Area] 3-5 /HPF Abnormal 0-3 /HPF [facility] Comment on above: Order Comment: Speci men Type: URINE SPECIMENOrdering Facility: [facility] Address: [address] [place] [address] Performed By: #### 2 4356-8 ####[facility]ATORYCLIA [id number] [address] [place] Specific gravity (U) [Rel density] 1.011 Normal 1.005-1.03 0 [facility] Comment on above: Order Comment: Speci men Type: URINE SPECIMENOrdering Facility: [facility] Address: [address] [place] [address] Performed By: #### 2 4356-8 ####[facility]ATORYCLIA [id number] [address] [place] Urobilinogen Ql (U) Normal Normal Normal [facility] Comment on above: Order Comment: Speci men Type: URINE SPECIMENOrdering Facility: [facility] Address: [address] [place] [address] Performed By: #### 2 4356-8 ####[facility]ORATORYCLIA [id number] [address] [place] WBC LM.HPF (Urine sed) [#/Area] 0-5 /HPF Normal 0-5 /HPF [facility] Comment on above: Order Comment: Speci men Type: URINE SPECIMENOrdering Facility: [facility] Address: [address] [place] [address] Performed By: #### 2 4356-8 ####[facility]ATORYCLIA [id number] [address] [place] Bacteria Bld Culton 10-04-19 25 Bacteria identified Cx Nom (Bld) CULTURE, BLOOD: No growth 5 days Normal [facility] Comment on above: Performed By: #### 6 00-7 ####[facility]ATORYCLIA [id number] [address] [place] Bacteria identified Cx Nom (Bld) ORGANISM ID: 1 Culture report of Staphylococcus epidermidis Probable contaminant. Susceptibility testing will not be performed. Call lab within 72 hours to initiate workup if clinically indicated. GRAM STAIN: Gram positive cocci in clusters Abnormal [facility] Comment on above: Performed By: #### I DBCGP, 600-7 ####[facility]ORATORYCLIA [id number] [place] [address] [place] Basic metabolic 2000 panelon 10-03-2024 Anion gap [Moles/Vol] 12 mmol/L Normal 8-15 [facility] Comment on above: Order Comment: Speci men Type: BLOOD SPECIMENOrdering Facility: [facility] Address: [address] [place] [address] Performed By: #### 2 4320-07, 1987-10 ####[facility]ORYCLIA [id number] [place] [address] [place] Calcium [Mass/Vol] 9.2 mg/dL Normal 8.5-10.2 [facility] Comment on above: Order Comment: Speci men Type: BLOOD SPECIMENOrdering Facility: [facility] Address: [address] [place] [address] Performed By: #### 2 4320-07, 1987-10 ####[facility]ORATORYCLIA [id number] [place] [address] [place] Chloride [Moles/Vol] 100 mmol/L Normal 98-107 [facility] Comment on above: Order Comment: Speci men Type: BLOOD SPECIMENOrdering Facility: [facility] Address: [address] [place] [address] Performed By: #### 2 4320-07, 1987-10 ####[facility]ORYCLIA [id number] [place] [id number] [place] CO2 [Moles/Vol] 23 mmol/L Normal 22-30 [facility] Comment on above: Order Comment: Speci men Type: BLOOD SPECIMENOrdering Facility: [facility] Address: [address] [place] [address] Performed By: #### 2 4320-07, 1987-10 ####[facility]ORYCLIA [id number] [place] [id number] [place] Creatinine [Mass/Vol] 0.52 mg/dL Low 0.58-0.96 [facility] Comment on above: Order Comment: Speci men Type: BLOOD SPECIMENOrdering Facility: [facility] Address: [address] [place] [address] Performed By: #### 2 43206-07, 1987-10 ####[facility]ENTERCLIA [id number] [place] [id number] [place] Creatinine and Glomerular filtration rate.predicted panel (S/P/Bld) 95 mL/min/1.73m??? Normal >=60 [facility] Comment on above: Order Comment: Katrina li Type: BLOOD SPECIMENOrdering Facility: [facility] Address: [address] [place] [address] Result Comment: Amina mated Glomerular Filtration Rate (eGFR) is calculated using the 2020 CKD-EPI creatinine equation. This equation utilizes serum creatinine, sex, and age as parameters. The creatinine assay has traceable calibration to isotope dilution-mass spectrometry. Refer to KDIGO guidelines for clinical interpretation. In patients with unstable renal function, e.g. those with acute kidney injury, the eGFR may not accurately reflect actual GFR. Performed By: #### 2 4320-07, 1987-10 ####[facility]IA [id number] [place] [id number] [place] Glucose [Mass/Vol] 117 mg/dL High 74-99 [facility] Comment on above: Order Comment: Katrina li Type: BLOOD SPECIMENOrdering Facility: [facility] Address: [address] [place] [address] Result Comment: The [place] Diabetes Association (ADA) provides guidance for cutoff values for fasting glucose and random glucose. The ADA defines fasting as no caloric intake for at least 8 hours. Fasting plasma glucose results between 100 to 125 mg/dL indicate increased risk for diabetes (prediabetes). Fasting plasma glucose results greater than or equal to 126 mg/dL meet the criteria for diagnosis of diabetes. In the absence of unequivocal hyperglycemia, results should be confirmed by repeat testing. In a patient with classic symptoms of hyperglycemia or hyperglycemic crisis, random plasma glucose results greater than or equal to 200 mg/dL meet the criteria for diagnosis of diabetes. Reference: Standards of Medical Care in Diabetes 2016, [place] Diabetes Association. Diabetes Care. 2016.39(Suppl 1). Performed By: #### 2 43206-07, 1987-10 ####[facility]POLISIA [id number] [place] [address] [place] Potassium [Moles/Vol] 3.7 mmol/L Normal 3.7-5.1 [facility] Comment on above: Order Comment: Speci men Type: BLOOD SPECIMENOrdering Facility: [facility] Address: [address] [place] [address] Performed By: #### 2 43206-07, 1987-10 ####[facility]ORATORYCLIA [id number] [place] [address] [place] Sodium [Moles/Vol] 135 mmol/L Low 136-144 [facility] Comment on above: Order Comment: Speci men Type: BLOOD SPECIMENOrdering Facility: [facility] Address: [address] [place] [address] Performed By: #### 2 43206-07, 1987-10 ####[facility]ORATORYCLIA [id number] [address] STATES OF [facility] Urea nitrogen [Mass/Vol] 15 mg/dL Normal 7-21 [facility] Comment on above: Order Comment: Speci men Type: BLOOD SPECIMENOrdering Facility: [facility] Address: [address] [place] [address] Performed By: #### 2 43206-07, 1987-10 ####[facility]ATORYCLIA [id number] [address] [place] CBC W Auto Differential pane l (Bld)on 10-03-2024 Basophils (Bld) [#/Vol] 0.06 10*3/uL Normal <0.11 [facility] Comment on above: Order Comment: Speci men Type: BLOOD SPECIMENOrdering Facility: [facility] Address: [address] [place] [address] Performed By: #### 5 7021-8 ####[facility]ORATORYCLIA [id number] [address] [place] [facility] Basophils/100 WBC (Bld) 0.7 % Normal [facility] Comment on above: Order Comment: Speci men Type: BLOOD SPECIMENOrdering Facility: [facility] Address: [address] [place] [address] Performed By: #### 5 7021-8 ####[facility]ORYCLIA [id number] [address] Differential cell count method Nom (Bld) Auto Normal [facility] Comment on above: Order Comment: Speci men Type: BLOOD SPECIMENOrdering Facility: [facility] Address: [address] [place] [address] Performed By: #### 5 7021-8 ####[facility]ATORYCLIA [id number] [address] [place] Eosinophils (Bld) [#/Vol] 10*3/uL Normal <0.46 [facility] Comment on above: Order Comment: Speci men Type: BLOOD SPECIMENOrdering Facility: [facility] Address: [address] [place] [address] Performed By: #### 5 7021-8 ####[facility]ATORYCLIA [id number] [address] Eosinophils/100 WBC (Bld) 0.2 % Normal [facility] Comment on above: Order Comment: Speci men Type: BLOOD SPECIMENOrdering Facility: [facility] Address: [address] [place] [address] Performed By: #### 5 7021-8 ####[facility]ORATORYCLIA [id number] [address] [place] Erythrocyte distribution width (RBC) [Ratio] 15.5 % High 11.5-15.0 [facility] Comment on above: Order Comment: Speci men Type: BLOOD SPECIMENOrdering Facility: [facility] Address: [address] [place] [address] Performed By: #### 5 7021-8 ####[facility]ATORYCLIA [id number] [address] [place] Hematocrit (Bld) [Volume fraction] 34.7 % Low 36.0-46.0 [facility] Comment on above: Order Comment: Speci men Type: BLOOD SPECIMENOrdering Facility: [facility] Address: [address] [place] [address] Performed By: #### 5 7021-8 ####[facility]ORYCLIA [id number] [place] [address] [place] Hemoglobin (Bld) [Mass/Vol] 11.9 g/dL Normal 11.5-15.5 [facility] Comment on above: Order Comment: Speci men Type: BLOOD SPECIMENOrdering Facility: [facility] Address: [address] [place] [address] Performed By: #### 5 7021-8 ####[facility]ATORYCLIA [id number] [address] [place] Immature granulocytes (Bld) [#/Vol] 0.04 10*3/uL Normal <0.10 [facility] Comment on above: Order Comment: Speci men Type: BLOOD SPECIMENOrdering Facility: [facility] Address: [address] [place] [address] Performed By: #### 5 7021-8 ####[facility]ATORYCLIA [id number] [address] [place] Immature granulocytes/100 WBC (Bld) 0.5 % Normal [facility] Comment on above: Order Comment: Speci men Type: BLOOD SPECIMENOrdering Facility: [facility] Address: [address] [place] [address] Performed By: #### 5 7021-8 ####[facility]ORYCLIA [id number] [place] [address] [place] Lymphocytes (Bld) [#/Vol] 1.57 10*3/uL Normal 1.00-4.00 [facility] Comment on above: Order Comment: Speci men Type: BLOOD SPECIMENOrdering Facility: [facility] Address: [address] [place] [address] Performed By: #### 5 7021-8 ####[facility]ORYCLIA [id number] [address] [place] Lymphocytes/100 WBC (Bld) 17.7 % Normal [facility] Comment on above: Order Comment: Speci men Type: BLOOD SPECIMENOrdering Facility: [facility] Address: [address] [place] [address] Performed By: #### 5 7021-8 ####[facility]ORATORYCLIA [id number] [address] [place] [facility] MCH (RBC) [Entitic mass] 30.0 pg Normal 26.0-34.0 [facility] Comment on above: Order Comment: Speci men Type: BLOOD SPECIMENOrdering Facility: [facility] Address: [address] [place] [address] Performed By: #### 5 7021-8 ####[facility]ATORYCLIA [id number] [address] MCHC (RBC) [Mass/Vol] 34.3 g/dL Normal 30.5-36.0 [facility] Comment on above: Order Comment: Speci men Type: BLOOD SPECIMENOrdering Facility: [facility] Address: [address] [place] [address] Performed By: #### 5 7021-8 ####[facility]ATORYCLIA [id number] [address] [place] [facility] MCV (RBC) [Entitic vol] 87.4 fL Normal 80.0-100.0 [facility] Comment on above: Order Comment: Speci men Type: BLOOD SPECIMENOrdering Facility: [facility] Address: [address] [place] [address] Performed By: #### 5 7021-8 ####[facility]ATORYCLIA [id number] [address] [address] Monocytes (Bld) [#/Vol] 0.62 10*3/uL Normal <0.87 [facility] Comment on above: Order Comment: Speci men Type: BLOOD SPECIMENOrdering Facility: [facility] Address: [address] [place] [address] Performed By: #### 5 7021-8 ####[facility]ATORYCLIA [id number] [place] [address] [place] Monocytes/100 WBC (Bld) 7.0 % Normal [facility] Comment on above: Order Comment: Speci men Type: BLOOD SPECIMENOrdering Facility: [facility] Address: [address] [place] [address] Performed By: #### 5 7021-8 ####[facility]ORATORYCLIA [id number] [place] [address] [place] Neutrophils (Bld) [#/Vol] 6.54 10*3/uL Normal 1.45-7.50 [facility] Comment on above: Order Comment: Speci men Type: BLOOD SPECIMENOrdering Facility: [facility] Address: [address] [place] [address] Performed By: #### 5 7021-8 ####[facility] LABORATORYCLIA [id number] [address] [place] Neutrophils/100 WBC (Bld) 73.9 % Normal [facility] Comment on above: Order Comment: Speci men Type: BLOOD SPECIMENOrdering Facility: [facility] Address: [address] [place] [address] Performed By: #### 5 7021-8 ####[facility] LABORATORYCLIA [id number] [place] [address] [place] Nucleated RBC (Bld) [#/Vol] 10*3/uL Normal <0.01 [facility] Comment on above: Order Comment: Speci men Type: BLOOD SPECIMENOrdering Facility: [facility] Address: [address] [place] [address] Performed By: #### 5 7021-8 ####[facility] LABORATORYCLIA [id number] [address] [place] Nucleated RBC/100 WBC (Bld) [Ratio] 0.0 /100 WBC Normal [facility] Comment on above: Order Comment: Speci men Type: BLOOD SPECIMENOrdering Facility: [facility] Address: [address] [place] [address] Performed By: #### 5 7021-8 ####[facility] LABORATORYCLIA [id number] [place] [address] [place] Platelet mean volume (Bld) [Entitic vol] 8.6 fL Low 9.0-12.7 [facility] Comment on above: Order Comment: Speci men Type: BLOOD SPECIMENOrdering Facility: [facility] Address: [address] [place] [address] Performed By: #### 5 7021-8 ####[facility]ORATORYCLIA [id number] [place] [address] [place] Platelets (Bld) [#/Vol] 395 10*3/uL Normal 150-400 [facility] Comment on above: Order Comment: Speci men Type: BLOOD SPECIMENOrdering Facility: [facility] Address: [address] [place] [address] Performed By: #### 5 7021-8 ####[facility] LABORATORYCLIA [id number] [place] [address] [place] RBC (Bld) [#/Vol] 3.97 10*6/uL Normal 3.90-5.20 [facility] Comment on above: Order Comment: Speci men Type: BLOOD SPECIMENOrdering Facility: [facility] Address: [address] [place] [address] Performed By: #### 5 7021-8 ####[facility]ORATORYCLIA [id number] [place] [address] [place] WBC (Bld) [#/Vol] 8.85 10*3/uL Normal 3.70-11.00 [facility] Comment on above: Order Comment: Speci men Type: BLOOD SPECIMENOrdering Facility: [facility] Address: [address] [place] [address] Performed By: #### 5 7021-8 ####[facility] LABORATORYCLIA [id number] [address] [place] CNPNon 10-03-2024 CNPN Normal [facility] CONSULTon 10-03-2024 CONSULT HNO ID: [id number] Author: RED NAVARRO MD Service: Orthopaedic Surgery Author Type: Resident Type: Consults Filed: 10/04/2024 07:13 Note Text: Attestation signed by Red Navarro MD at 10/04/2024 7:13 AM Orthopaedic Spine Surgery Attending Addendum I personally saw and evaluated the patient. I agree with the history, physical examination, assessment, and plan as documented in the resident's note with the following additions/changes: 79 year old female with presenting with T12-L1 discitis. 1.5 months of back pain. No radicular or myelopathic symptoms. Examination as below. Sensation intact to light touch C5-T1 and L1-S1. Motor function 5/5 motor function in BUE and BLE. No long tract signs. Reviewed imaging including radiographs and MRI of of the lumbar spine. Imaging demonstrates T12-L1 spondylodiscitis, no epidural extension, previous L4-L5 fusion Radiology reports also reviewed. -Full spine MRI with and without contrast -TLSO brace -Mobilize as tolerated in TLSO brace -IR guided biopsy -Continue medical management of spondylodiscitis Red Navarro MD Orthopaedic Spine Surgery Consultation requested by Gorge Carroll MD. A summary of my findings and recommendations will be communicated back to the requesting physician via the shared electronic medical record. ORTHOPAEDIC SURGERY CONSULT Pt: DANETTE BISHOP Date of Consultation: 10/03/2024 Physician Consulted: Dr. Navarro Reason for Consultation: T12-L1 discitis HPI: 79 year old female presented to [facility] for evaluation of abnormal MRI findings. Patient has a history of metastatic breast cancer currently undergoing treatment and chronic low back pain status post multiple prior L4-5 posterior spinal fusions at [facility] a few years ago. Patient states in August she began having new atraumatic onset low back pain for which she was admitted and treated medically with muscle relaxers and steroids. Her pain improved, but once she stopped her medications the pain came back. She followed up with her oncologist and a spine surgeon in [place]. MRI obtained in July showed possible metastatic lesion in T6 and T11 vertebrae. MRI lumbar spine obtained yesterday showed new changes at T12-L1 concerning for discitis/osteomyelitis for which she was sent to the ED for further evaluation. Patient currently endorses low back pain with no radiation into her lower extremities. She denies any numbness, tingling, or weakness in her lower extremities. She denies any bowel or bladder incontinence. She denies any recent fevers, chills, sweats. PAST MEDICAL HISTORY Diagnosis Date Breast cancer (HCC) 2012 left Breast cancer (HCC) 04/2023 local recurrence on left GI bleed 2008 Hypertension Liver nodule TIA (transient ischemic attack) 2012 PAST SURGICAL HISTORY Procedure Laterality Date COLONOSCOPY every 5 yrs due to f/h colon cqan all normal per pt EGD GERD EGD 09/01/2020 Repeat in 2 years INSJ TUNNELED CTR VAD W/SUBQ PORT AGE 5 YR/> 09/29/2020 PAST SURGICAL HISTORY OF thyroid removal PAST SURGICAL HISTORY OF left breast 2 episodes of DCIS PAST SURGICAL HISTORY OF back surgeries times 2 Allergies: Adhesive Tape-Silicones and Shellfish Derived Current Facility-Administered Medications Medication Dose Route Frequency iv contrast (radiology procedure) INTRAVENOUS DIRECTED PRN iv contrast (radiology procedure) INTRAVENOUS DIRECTED PRN [START ON 10/04/2024] vancomycin iv piggyback 1 g in D5W 200 mL (VANCOCIN) 0.015 g/kg/dose INTRAVENOUS ONCE [START ON 10/04/2024] vancomycin dosing and monitoring per pharmacy OTHER As Directed [START ON 10/04/2024] cefepime 2 g in D5W 100 mL Vial-Bag (MAXIPIME) 2 g INTRAVENOUS q 8 H NaCl 0.9% iv flush bag 20 mL INTRAVENOUS PRN Current Outpatient Medications Medication Sig baclofen 5 mg tablet Take 5 mg by mouth three times a day. amLODIPine (NORVASC) 5 mg tablet Take 5 mg by mouth daily at bedtime. multivit-min/ferrous fumarate (MULTI VITAMIN ORAL) Take 1 tablet by mouth once daily. letrozole (FEMARA) 2.5 mg tablet Take 1 tablet by mouth once daily. clopidogrel (PLAVIX) 75 mg tablet Take 1 tablet by mouth once daily. Patient should start on December 20, 2023. HYDROcodone-acetaminophen (NORCO) 5-325 mg per tablet Take 1 tablet by mouth every 6 hours as needed for pain for up to 3 days. FLUoxetine (PROZAC) 40 mg capsule Take 1 capsule by mouth once daily. levothyroxine (SYNTHROID) 112 mcg tablet Take 112 mcg by mouth once daily. liothyronine (CYTOMEL) 5 mcg tablet Take 5 mcg by mouth once daily. lisinopril (ZESTRIL, PRINIVIL) 20 mg tablet Take 20 mg by mouth once daily. esomeprazole (NEXIUM) 40 mg capsule Take 40 mg by mouth DAILY (6 AM). ACETAMINOPHEN (TYLENOL ORAL) (more content not included)... Normal [facility] CONSULT PROGon 10-03-2024 CONSULT PROG HNO ID: [id number] Author: AMANDA RIVER RPh Service: Pharmacy Author Type: Pharmacist Type: Consult Progress Note Filed: 10/03/2024 23:56 Note Text: PHARMACY VANCOMYCIN DOSING NOTE Patient Name: Danette Bishop Admission Date: 10/03/2024 Date of Consult: 10/03/2024 Time of Consult: 11:52 PM Indication: Bone and joint infection Goal Range: 15-20 mcg/mL RECOMMENDATIONS/PLAN: Pharmacy consulted for vancomycin dosing for Danette Bishop, a 79 year old female. 1. Patient is currently ordered Vancomycin 1 g IV q24h. Today is day One of therapy. First dose of therapy scheduled to give now in ER. Patientt reports being here yesterday and getting labs done and her Oncologist sent her in as something strange was seen on her MRI. Pt states she has met breast CA. PMH Posadas's esophagus and TIA (2023). 2. No vancomycin level has been drawn for this dosing regimen. 3. The present dose of vancomycin is the recommended dosage for this patient at this time. Continue therapy as prescribed. 4. The next vancomycin level has been ordered for 10-06-2024 @ 2200 prior 4th dose due to concern for accumulation with age/BMI consideration. (Completed) We will follow patient renal function, vancomycin levels and doses with you during the course of therapy. Additional recommendations will appear in follow up notes. If you have any questions[place] [phone]. Age: [age] year old Allergies: ALLERGIES Allergen Reactions Adhesive Tape-Silic* Rash Shellfish Derived Swelling Last 3 Encounter Wt Readings: Date: Wt: 10/03/2024 66.7 kg (147 lb) 10/02/2024 66.7 kg (147 lb) 09/12/2024 67.8 kg (149 lb 8 oz) Last 1 Encounter Ht Readings: Date: Ht: 10/03/2024 154.9 cm (5' 1") CrCl: 76.7 mL/min Temp (24hrs), Av.1 ?C (98.7 ?F), Min:37.1 ?C (98.7 ?F), Max:37.1 ?C (98.7 ?F) - Current Temp: 37.1 ?C (98.7 ?F) Labs BUN (mg/dL) Date Value 10/03/2024 15 10/02/2024 15 09/12/2024 18 Creatinine (mg/dL) Date Value 10/03/2024 0.52 (L) 10/02/2024 0.61 09/12/2024 0.75 WBC (k/uL) Date Value 10/03/2024 8.85 10/02/2024 9.40 09/12/2024 9.19 Vancomycin Levels: No results found for: "VANCORA" [facility] Normal [facility] CRP SerPl-mCncon 10-03-2024 CRP [Mass/Vol] 0.8 mg/dL Normal <0.9 [facility] Comment on above: Order Comment: Speci men Type: BLOOD SPECIMENOrdering Facility: [facility] Address: [address] [place] [address] Performed By: #### 2 4321-2, 1987-10 ####[facility] LABORATORYCLIA [id number] [place] [address] [place] ED NOTEon 04-30-2025 ED NOTE HNO ID: [id number] Author: KODAK HORTON RN Service: ? Author Type: Registered Nurse Type: ED Notes Filed: 10/03/2024 23:34 Note Text: Pt ambulatory back to bed, placed back on monitors and put back on monitors Normal [facility] ED NOTE HNO ID: [id number] Author: KODAK HORTON RN Service: ? Author Type: Registered Nurse Type: ED Notes Filed: 10/03/2024 23:33 Note Text: Pt ambulatory to restroom with no difficulty Normal [facility] ED NOTE HNO ID: [id number] Author: CHERYL ANSARI RN Service: ? Author Type: Registered Nurse Type: ED Notes Filed: 10/03/2024 21:30 Note Text: Bed: 15-ED Expected date: Expected time: Means of arrival: Comments: Triage when clean Normal [facility] ED PROV NOTEon 10-03-2024 ED PROV NOTE HNO ID: [id number] Author: ARLETH ALBRIGHT MD Service: Emergency Medicine Author Type: Physician Type: ED Provider Notes Filed: 10/24/2024 07:04 Note Text: ED Provider Note Patient Name: Danette Bishop : 1945 SERVICE DATE: 10/03/24 History Patient presents with: Sent By Md: Pt reports being here yesterday and getting labs done and her Oncologist sent her in as something strange was seen on her MRI. Pt states she has met breast CA. 79-year-old female presents to the ED with concerns for back pain. She reports that she has a history of metastatic breast cancer undergoing treatment. She reports that her last infusion was 3 weeks ago. She endorses that she gets infusions every 3 weeks. She endorsed that on August 25 of this year, she had right lumbar back spasms and went to [facility]. She reports she was admitted for multiple days and was discharged on muscle relaxant and oxycodone. She reports since being home she has had worsening of her back pain. She had a follow-up MRI done yesterday that showed T12-L1 discitis she denies any recent fevers, chills, sweats, shortness of breath or any other symptoms. She does endorse occasional leakage of urine primarily at night without any symptoms during the day. She denies any saddle anesthesias, numbness, tingling, or weakness of her bilateral lower extremities. PAST MEDICAL HISTORY Diagnosis Date Breast cancer (HCC) 2012 left Breast cancer (HCC) 04/2023 local recurrence on left GI bleed 2008 Hypertension Liver nodule TIA (transient ischemic attack) 2012 PAST SURGICAL HISTORY Procedure Laterality Date COLONOSCOPY every 5 yrs due to f/h colon cqan all normal per pt EGD GERD EGD 09/01/2020 Repeat in 2 years INSJ TUNNELED CTR VAD W/SUBQ PORT AGE 5 YR/> 09/29/2020 PAST SURGICAL HISTORY OF thyroid removal PAST SURGICAL HISTORY OF left breast 2 episodes of DCIS PAST SURGICAL HISTORY OF back surgeries times 2 FAMILY HISTORY Problem Relation Age of Onset Colon Cancer Mother mets to stomach Stroke Father at age 62 Breast Cancer Sister 85 Heart disease Paternal Grandmother CAD Social History Tobacco Use Smoking status: Former Current packs/day: 0.00 Types: Cigarettes Start date: 09/17/1963 Quit date: 09/16/1965 Years since quittin.1 Smokeless tobacco: Never Tobacco comments: Pt smoked 2-3 cigarettes daily x 2 years. Vaping Use Vaping status: Never Used Substance and Sexual Activity Alcohol use: Yes Comment: moderate Drug use: No Sexual activity: Yes Partners: Male ALLERGIES Allergen Reactions Adhesive Tape-Silic* Rash Shellfish Derived Swelling Review of Systems Constitutional: Negative for activity change, chills, fatigue and fever. HENT: Negative for congestion, rhinorrhea and sore throat. Respiratory: Negative for cough, chest tightness, shortness of breath and wheezing. Cardiovascular: Negative for chest pain, palpitations and leg swelling. Gastrointestinal: Negative for abdominal distention, abdominal pain, constipation, diarrhea, nausea and vomiting. Genitourinary: Negative for difficulty urinating, dysuria, frequency and urgency. Musculoskeletal: Positive for arthralgias, back pain and myalgias. Neurological: Negative for dizziness, syncope, weakness, light-headedness, numbness and headaches. Psychiatric/Behavioral: Negative for confusion. Physical Exam Vitals [10/03/24 1329] BP Pulse Temp Temp src Resp SpO2 Weight Height 173/66 (!) 96 37.1 ?C (98.7 ?F) Oral 18 95 % 66.7 kg (147 lb) 1.549 m (5' 1") Physical Exam Vitals and nursing note reviewed. Constitutional: General: She is not in acute distress. Appearance: Normal appearance. She is normal weight. She is not ill-appearing. HENT: Head: Normocephalic and atraumatic. Mouth/Throat: Mouth: Mucous membranes are moist. Pharynx: Oropharynx is clear. Cardiovascular: Rate and Rhythm: Normal rate and regular rhythm. Pulses: Normal pulses. Heart sounds: Normal heart sounds. Pulmonary: Effort: Pulmonary effort is normal. No respiratory distress. Breath sounds: Normal breath sounds. No wheezing. Abdominal: General: Abdomen is flat. Bowel sounds are normal. There is no distension. Palpations: Abdomen is soft. Tenderness: There is no abdominal tenderness. Musculoskeletal: General: Tenderness (Tenderness to the lumbar spine and right paraspinal muscles.) present. Normal range of motion. Right lower leg: No edema. Left lower leg: No edema. Skin: General: Skin is warm and dry. Capillary Refill: Capillary refill takes less than 2 seconds. Comments: Port for infusions in the right upper chest. Neurological: General: No focal deficit present. Mental Status: She is alert and oriented to person, place, and time. Mental status is at baseline. Diagnostic Testing ED Labs Ordered and Reviewed BASIC METABOLIC PANEL - Abnormal; Notable fo (more content not included)... Normal [facility] ED Triage Noteon 10-03-2024 ED Triage Note HNO ID: [id number] Author: SIDRA MILAN PA-C Service: Emergency Medicine Author Type: Physician Submarine Element Coordinator Type: ED Triage Notes Filed: 10/03/2024 13:41 Note Text: ED TRIAGE PROVIDER NOTE Patient Name: Danette Bishop Service Date: 10/03/24 BRIEF HPI: This is a 79 year old female who presents to the ED with: Abnormal MRI findings. Chronic back pain, metastatic breast cancer. MRI yesterday shows possible discitis. BRIEF EXAM: NAD Awake and Alert Non labored breathing INITIAL WORKUP AND DECISION MAKING: Orders Placed This Encounter BASIC METABOLIC PNL CBC + DIFF C-Reactive Protein Sedimentation Rate, Westergren Will repeat basic labs and inflammatory markers, anticipating admission for biopsy and further care per her oncologist. SIGNATURE: Sidra Milan PA-C Normal [facility] ESR Westergren method (Bld) [Velocity]on 10-03-2024 ESR (Bld) [Velocity] 22 mm/h High 0-20 [facility] Comment on above: Order Comment: Speci men Type: BLOOD SPECIMENOrdering Facility: [facility] Address: [address] [place] [address] Performed By: #### 4 537-7 ####[facility] LABCLIA [id number] [place] [address] [place] GRAM POSITIVE ORGANISM ID BY MICROARRAY ([employer])on 10-03-2024 GRAM POSITIVE ORGANISM ID BY MICROARRAY ([employer]) BCID INTERPRETATION: Methicillin-resistant Staphylococcus epidermidis (MRSE) detected by microarray. Single positive cultures of S. epidermidis usually represent contamination. Call lab within 72 hours if further work up is required. Negative for Streptococcus spp. and Enterococcus spp. by microarray. Abnormal [facility] Comment on above: Performed By: #### I DBOKLAHOMA FORENS[facility], 600-7 ####[facility] LABORATORYCLIA [id number] [place] [address] [place] Basic metabolic 2000 panelon 10-02-2024 Anion gap [Moles/Vol] 11 mmol/L Normal 8-15 [facility] Comment on above: Order Comment: Speci men Type: BLOOD SPECIMENOrdering Facility: [facility] Address: [address] [place] [address] Performed By: #### 2 4321-2 ####[facility] LABORATORYCLIA [id number] [place] [address] [place] Calcium [Mass/Vol] 9.4 mg/dL Normal 8.5-10.2 [facility] Comment on above: Order Comment: Speci men Type: BLOOD SPECIMENOrdering Facility: [facility] Address: [address] [place] [address] Performed By: #### 2 4321-2 ####[facility] LABORATORYCLIA [id number] [place] [address] [place] Chloride [Moles/Vol] 100 mmol/L Normal 98-107 [facility] Comment on above: Order Comment: Speci men Type: BLOOD SPECIMENOrdering Facility: [facility] Address: [address] [place] [address] Performed By: #### 2 4321-2 ####[facility] LABORATORYCLIA [id number] [place] [address] [place] CO2 [Moles/Vol] 25 mmol/L Normal 22-30 [facility] Comment on above: Order Comment: Speci men Type: BLOOD SPECIMENOrdering Facility: [facility] Address: [address] [place] [address] Performed By: #### 2 4321-2 ####[facility] LABORATORYCLIA [id number] [address] STATES OF [facility] Creatinine [Mass/Vol] 0.61 mg/dL Normal 0.58-0.96 [facility] Comment on above: Order Comment: Speci men Type: BLOOD SPECIMENOrdering Facility: [facility] Address: [address] [place] [address] Performed By: #### 2 4321-2 ####[facility] LABORATORYCLIA [id number] [address] Creatinine and Glomerular filtration rate.predicted panel (S/P/Bld) 91 mL/min/1.73m??? Normal >=60 [facility] Comment on above: Order Comment: Speci men Type: BLOOD SPECIMENOrdering Facility: [facility] Address: [address] [place] [address] Result Comment: Amina mated Glomerular Filtration Rate (eGFR) is calculated using the 2020 CKD-EPI creatinine equation. This equation utilizes serum creatinine, sex, and age as parameters. The creatinine assay has traceable calibration to isotope dilution-mass spectrometry. Refer to KDIGO guidelines for clinical interpretation. In patients with unstable renal function, e.g. those with acute kidney injury, the eGFR may not accurately reflect actual GFR. Performed By: #### 2 4321-2 ####[facility] LABORATORYCLIA [id number] [address] [place] Glucose [Mass/Vol] 122 mg/dL High 74-99 [facility] Comment on above: Order Comment: Speci men Type: BLOOD SPECIMENOrdering Facility: [facility] Address: [address] [place] [address] Result Comment: The [place] Diabetes Association (ADA) provides guidance for cutoff values for fasting glucose and random glucose. The ADA defines fasting as no caloric intake for at least 8 hours. Fasting plasma glucose results between 100 to 125 mg/dL indicate increased risk for diabetes (prediabetes). Fasting plasma glucose results greater than or equal to 126 mg/dL meet the criteria for diagnosis of diabetes. In the absence of unequivocal hyperglycemia, results should be confirmed by repeat testing. In a patient with classic symptoms of hyperglycemia or hyperglycemic crisis, random plasma glucose results greater than or equal to 200 mg/dL meet the criteria for diagnosis of diabetes. Reference: Standards of Medical Care in Diabetes 2016, [place] Diabetes Association. Diabetes Care. 2016.39(Suppl 1). Performed By: #### 2 4321-2 ####[facility] LABORATORYCLIA [id number] [place] [address] [place] Potassium [Moles/Vol] 4.1 mmol/L Normal 3.7-5.1 [facility] Comment on above: Order Comment: Katrina guillermo Type: BLOOD SPECIMENOrdering Facility: [facility] Address: [address] [place] [address] Performed By: #### 2 4321-2 ####[facility] LABORATORYCLIA [id number] [place] [address] [place] Sodium [Moles/Vol] 136 mmol/L Normal 136-144 [facility] Comment on above: Order Comment: Speci men Type: BLOOD SPECIMENOrdering Facility: [facility] Address: [address] [place] [address] Performed By: #### 2 4321-2 ####[facility] LABORATORYCLIA [id number] [place] [address] [place] Urea nitrogen [Mass/Vol] 15 mg/dL Normal 7-21 [facility] Comment on above: Order Comment: Kimmyi men Type: BLOOD SPECIMENOrdering Facility: [facility] Address: [address] [place], [place] [id number] Performed By: #### 2 4321-2 ####[facility]ATORYCLIA [id number] [place] [address] [place] CBC W Auto Differential pane l (Bld)on 10-02-2024 Basophils (Bld) [#/Vol] 0.09 10*3/uL Normal <0.11 [facility] Comment on above: Order Comment: Speci men Type: BLOOD SPECIMENOrdering Facility: [facility] Address: [address] [place] [address] Performed By: #### 5 7021-8 ####[facility]ATORYCLIA [id number] [address] [place] [facility] Basophils/100 WBC (Bld) 1.0 % Normal [facility] Comment on above: Order Comment: Speci men Type: BLOOD SPECIMENOrdering Facility: [facility] Address: [address] [place] [address] Performed By: #### 5 7021-8 ####[facility] LABORATORYCLIA [id number] [address] [place] [facility] Differential cell count method Nom (Bld) Auto Normal [facility] Comment on above: Order Comment: Speci men Type: BLOOD SPECIMENOrdering Facility: [facility] Address: [address] [place] [address] Performed By: #### 5 7021-8 ####[facility]ATORYCLIA [id number] [place] [address] [place] Eosinophils (Bld) [#/Vol] 10*3/uL Normal <0.46 [facility] Comment on above: Order Comment: Speci men Type: BLOOD SPECIMENOrdering Facility: [facility] Address: [address] [place] [address] Performed By: #### 5 7021-8 ####[facility]ORATORYCLIA [id number] [address] [place] Eosinophils/100 WBC (Bld) 0.2 % Normal [facility] Comment on above: Order Comment: Speci men Type: BLOOD SPECIMENOrdering Facility: [facility] Address: [facility] [place] [address] Performed By: #### 5 7021-8 ####[facility] LABORATORYCLIA [id number] [address] [place] Erythrocyte distribution width (RBC) [Ratio] 15.6 % High 11.5-15.0 [facility] Comment on above: Order Comment: Speci men Type: BLOOD SPECIMENOrdering Facility: [facility] Address: [address] [place] [address] Performed By: #### 5 7021-8 ####[facility] LABORATORYCLIA [id number] [address] [place] Hematocrit (Bld) [Volume fraction] 38.2 % Normal 36.0-46.0 [facility] Comment on above: Order Comment: Speci men Type: BLOOD SPECIMENOrdering Facility: [facility] Address: [address] [place] [address] Performed By: #### 5 7021-8 ####[facility] LABORATORYCLIA [id number] [address] [place] Hemoglobin (Bld) [Mass/Vol] 12.8 g/dL Normal 11.5-15.5 [facility] Comment on above: Order Comment: Speci men Type: BLOOD SPECIMENOrdering Facility: [facility] Address: [address] [place] [address] Performed By: #### 5 7021-8 ####[facility] LABORATORYCLIA [id number] [address] [place] Immature granulocytes (Bld) [#/Vol] 0.06 10*3/uL Normal <0.10 [facility] Comment on above: Order Comment: Speci men Type: BLOOD SPECIMENOrdering Facility: [facility] Address: [address] [place] [address] Performed By: #### 5 7021-8 ####[facility]ORATORYCLIA [id number] [address] [place] Immature granulocytes/100 WBC (Bld) 0.6 % Normal [facility] Comment on above: Order Comment: Speci men Type: BLOOD SPECIMENOrdering Facility: [facility] Address: [address] [place] [address] Performed By: #### 5 7021-8 ####[facility]ORATORYCLIA [id number] [address] [place] Lymphocytes (Bld) [#/Vol] 1.21 10*3/uL Normal 1.00-4.00 [facility] Comment on above: Order Comment: Speci men Type: BLOOD SPECIMENOrdering Facility: [facility] Address: [address] [place] [address] Performed By: #### 5 7021-8 ####[facility] LABORATORYCLIA [id number] [address] Lymphocytes/100 WBC (Bld) 12.9 % Normal [facility] Comment on above: Order Comment: Speci men Type: BLOOD SPECIMENOrdering Facility: [facility] Address: [address] [place] [address] Performed By: #### 5 7021-8 ####[facility]ORATORYCLIA [id number] [address] [place] MCH (RBC) [Entitic mass] 30.3 pg Normal 26.0-34.0 [facility] Comment on above: Order Comment: Speci men Type: BLOOD SPECIMENOrdering Facility: [facility] Address: [address] [place] [address] Performed By: #### 5 7021-8 ####[facility]ORYCLIA [id number] [place] [address] [place] MCHC (RBC) [Mass/Vol] 33.5 g/dL Normal 30.5-36.0 [facility] Comment on above: Order Comment: Speci men Type: BLOOD SPECIMENOrdering Facility: [facility] Address: [address] [place] [address] Performed By: #### 5 7021-8 ####[facility]ORYCLIA [id number] [place] [address] [place] MCV (RBC) [Entitic vol] 90.3 fL Normal 80.0-100.0 [facility] Comment on above: Order Comment: Speci men Type: BLOOD SPECIMENOrdering Facility: [facility] Address: [address] [place] [address] Performed By: #### 5 7021-8 ####[facility]ORATORYCLIA [id number] [address] [place] Monocytes (Bld) [#/Vol] 0.53 10*3/uL Normal <0.87 [facility] Comment on above: Order Comment: Speci men Type: BLOOD SPECIMENOrdering Facility: [facility] Address: [address] [place] [address] Performed By: #### 5 7021-8 ####[facility]ORATORYCLIA [id number] [address] Monocytes/100 WBC (Bld) 5.6 % Normal [facility] Comment on above: Order Comment: Speci men Type: BLOOD SPECIMENOrdering Facility: [facility] Address: [address] [place] [address] Performed By: #### 5 7021-8 ####[facility]ORATORYCLIA [id number] [address] [place] Neutrophils (Bld) [#/Vol] 7.49 10*3/uL Normal 1.45-7.50 [facility] Comment on above: Order Comment: Speci men Type: BLOOD SPECIMENOrdering Facility: [facility] Address: [address] [place] [address] Performed By: #### 5 7021-8 ####[facility]ORATORYCLIA [id number] [address] [place] Neutrophils/100 WBC (Bld) 79.7 % Normal [facility] Comment on above: Order Comment: Speci men Type: BLOOD SPECIMENOrdering Facility: [facility] Address: [address] [place] [address] Performed By: #### 5 7021-8 ####[facility]ATORYCLIA [id number] [address] [place] Nucleated RBC (Bld) [#/Vol] 10*3/uL Normal <0.01 [facility] Comment on above: Order Comment: Speci men Type: BLOOD SPECIMENOrdering Facility: [facility] Address: [address] [place] [address] Performed By: #### 5 7021-8 ####[facility]ORATORYCLIA [id number] [address] [place] Nucleated RBC/100 WBC (Bld) [Ratio] 0.0 /100 WBC Normal [facility] Comment on above: Order Comment: Speci men Type: BLOOD SPECIMENOrdering Facility: [facility] Address: [address] [place] [address] Performed By: #### 5 7021-8 ####[facility]ORATORYCLIA [id number] [address] [place] Platelet mean volume (Bld) [Entitic vol] 8.9 fL Low 9.0-12.7 [facility] Comment on above: Order Comment: Speci men Type: BLOOD SPECIMENOrdering Facility: [facility] Address: [address] [place] [address] Performed By: #### 5 7021-8 ####[facility]ORATORYCLIA [id number] [address] [place] Platelets (Bld) [#/Vol] 448 10*3/uL High 150-400 [facility] Comment on above: Order Comment: Speci men Type: BLOOD SPECIMENOrdering Facility: [facility] Address: [address] [place] [address] Performed By: #### 5 7021-8 ####[facility]ORATORYCLIA [id number] [place] [address] [place] RBC (Bld) [#/Vol] 4.23 10*6/uL Normal 3.90-5.20 [facility] Comment on above: Order Comment: Speci men Type: BLOOD SPECIMENOrdering Facility: [facility] Address: [address] [place] [address] Performed By: #### 5 7021-8 ####[facility]ORATORYCLIA [id number] [address] WBC (Bld) [#/Vol] 9.40 10*3/uL Normal 3.70-11.00 [facility] Comment on above: Order Comment: Speci men Type: BLOOD SPECIMENOrdering Facility: [facility] Address: [address] [place] [address] Performed By: #### 5 7021-8 ####[facility]ORATORYCLIA [id number] [address] ED Triage Noteon 10-02-2024 ED Triage Note HNO ID: [id number] Author: VINCENT KELLEY APRN.GREASE REFINER OPERATOR Service: Emergency Medicine Author Type: Nurse Practitioner Type: ED Triage Notes Filed: 10/02/2024 16:55 Note Text: ED TRIAGE PROVIDER NOTE Patient Name: Danette Bishop Service Date: 10/02/24 BRIEF HPI: This is a 79 year old female who presents to the ED with: metastatic breast cancer patient had MRI done today and showed concern for possible discitis, sent here by oncologist for spinal tap/biopsy BRIEF EXAM: NAD Awake and Alert Non labored breathing CV tachy INITIAL WORKUP AND DECISION MAKING: Orders Placed This Encounter BASIC METABOLIC PNL CBC + DIFF Urinalysis w Microscopic, reflex Culture Single Sepsis Lactate 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 Normal [facility] SEPSIS LACTATEon 10-02-2024 Lactate [Moles/Vol] 1.6 mmol/L Normal <=2.0 [facility] Comment on above: Order Comment: Speci men Type: BLOOD SPECIMENOrdering Facility: [facility] Address: [address] [place] [address] Performed By: #### S LACT ####[facility]ORATORYCLIA [id number] [address] Spine Lumbar W/WO Contraston 10-02-2024 Spine Lumbar W/WO Contrast [facility] Imaging Services [address] [place], [place] [address] Spine Lumbar W/WO Contrast MR#: [id number] Acct: [id number] Name: DANETTE BISHOP Rep #: [id number] : 1945 F 79 From: Sandoval Sheridan MD PCP: Dr. Tami Chang MD Status: DEP CLI Study: Spine Lumbar W/WO Contrast Date of Exam: 09/05 02/28 Exam# [id number] Ordering Dr: Jin Rosales MD ADDENDUM by Dr. Sandoval Sheridan MD on 10/15/24 at 0649 Contrast dose = 13 cc Clariscan. Reading Location: [facility] 10/15/24 0650 Date cc: Dr. Tami Chang MD; Dr. Jin Rosales MD * Signed PROCEDURE: SPINE LUMBAR W/WO CONTRAST 10/02/2024 REASON FOR EXAM: LUMBAR SPINE PAIN TECHNIQUE: Multiplanar and multisequence images were obtained without and with intravenous gadolinium-based contrast administration. CONTRAST: Clariscan, dose = not reported. COMPARISON: 09/23/2024 FINDINGS: The inset cutter view shows a 1.5 cm low T1 signal lesion in the T6 vertebral body. There is a 1.5 cm hemangioma with high T1, high T2 signal at T11. There is fusion hardware at L4-5 on the left with disc hardware. There is a 25% anterior compression deformity at T12. There is low T1, high T2, postcontrast enhancement in the mid and lower T12 vertebral body and in the mid and upper L1 vertebral body including the disc space. There is a 1.0 cm circumscribed high T2, low T1, high postcontrast T1 signal enhancing lesion in the left superior L1 vertebral body, sagittal image 10/18. There is grade 1 retrolisthesis at T12-L1, 0.3 cm. There is grade 1 retrolisthesis at L1-2, 0.3 cm. There is grade 1 retrolisthesis at L3-4, 0.3 cm. There is grade 1 spondylolisthesis at L5-S1, 0.6 cm. Intervertebral disc signal shows desiccation. The facets are aligned. The T12-L1 level: There is mild central, moderate right and mild left paracentral disc and osteophyte protrusion. There is mild right lateral recess effacement. There is moderate right foraminal narrowing secondary to disc and osteophyte protrusion. There is no central canal stenosis. The L1-L2 level: There is disc extrusion which extends beyond the L2 endplate, attached at the margin, measuring 0.5 x 0.8 by 1.4 cm. There is moderate bilateral lateral recess stenosis. There is moderate bilateral foraminal narrowing secondary to disc protrusion and facet hypertrophy. There is no central canal stenosis. The L2-L3 level: There is central disc extrusion which extends beyond the L3 endplate, attached at the margin, measuring 0.4 by 0.9 by 0.7 cm. There is mild bilateral lateral recess effacement. There is moderate right and mild left foraminal narrowing secondary to disc protrusion and facet hypertrophy. There is mild central canal stenosis. The L3-L4 level: There is disc extrusion which extends beyond the L4 endplate and into the right neural foramen, attached at the margin, measuring 0.4 by 0.5 by 1.3 cm.. There is moderate bilateral lateral recess stenosis. There is moderate bilateral foraminal narrowing secondary to disc and osteophyte protrusion. There is no central canal stenosis.. The L4-L5 level: There is no significant disk protrusion. There is no lateral recess stenosis or foraminal stenosis. There is no critical central canal stenosis. The L5-S1 level: There is mild central and right and left paracentral disc protrusion. There is mild bilateral lateral recess stenosis. There is mild bilateral foraminal narrowing secondary to disc protrusion, facet hypertrophy, and spondylolisthesis. There is mild central canal stenosis.. The visualized conus shows normal signal characteristics. Adjacent soft tissues are unremarkable. MRI/Spine Lumbar W/WO Contrast IMPRESSION: The inset cutter view shows a 1.5 cm low T1 signal lesion in the T6 vertebral body. Further evaluation is indicated which could include MRI with and without contrast. There is a 25% anterior compression deformity at T12, similar to the prior. There is low T1, high T2, postcontrast enhancement in the mid and lower T12 vertebral body and in the mid and upper L1 vertebral body including the disc space. This has the appearance of discitis and is new compared to the prior. There is a 1.0 cm circumscribed high T2, low T1, high postcontrast T1 signal enhancing lesion in the left superior L1 vertebral body, sagittal image 5/15, with suspicious features. Follow-up is recommended. Consider whole-body bone scan. There is grade 1 retrolisthesis at T12-L1, 0.3 cm. There is grade 1 retrolisthesis at L1-2, 0.3 cm. There is grade 1 retrolisthesis at L3-4, 0.3 cm. There is grade 1 spondylolisthesis at L5-S1, 0.6 cm. There is disc extrusion at L1-2, L2-3, and L3-4. There is mild central canal stenosis at L2-3, and L5-S1, with late (more content not included)... Normal [facility] Urinalysis complete panel (U )on 10-02-2024 Bilirubin Ql (U) Negative Normal Negative [facility] Comment on above: Order Comment: Speci men Type: URINE SPECIMENOrdering Facility: [facility] Address: [address] [place] [address] Performed By: #### 2 4356-8 ####[facility] CENTERCLIA [id number] [place] [address] [place] Clarity (Unsp spec) Clear Normal Clear [facility] Comment on above: Order Comment: Speci men Type: URINE SPECIMENOrdering Facility: [facility] Address: [address] [place] [address] Performed By: #### 2 4356-8 ####[facility]ORATORYCLIA [id number] [address] [place] Color (U) Light Yellow Normal yellow [facility] Comment on above: Order Comment: Speci men Type: URINE SPECIMENOrdering Facility: [facility] Address: [address] [place] [address] Performed By: #### 2 4356-8 ####[facility]ORATORYCLIA [id number] [address] Glucose Test strip (U) [Mass/Vol] Negative Normal Trace, Negative [facility] Comment on above: Order Comment: Speci men Type: URINE SPECIMENOrdering Facility: [facility] Address: [address] [place] [address] Performed By: #### 2 4356-8 ####[facility]ORATORYCLIA [id number] [address] [place] [facility] Hemoglobin Ql (U) Trace Normal Negative, Trace [facility] Comment on above: Order Comment: Speci men Type: URINE SPECIMENOrdering Facility: [facility] Address: [address] [place] [address] Performed By: #### 2 4356-8 ####[facility]ORATORYCLIA [id number] [address] Ketones Ql (U) Negative Normal Negative, Trace [facility] Comment on above: Order Comment: Speci men Type: URINE SPECIMENOrdering Facility: [facility] Address: [address] [place] [address] Performed By: #### 2 4356-8 ####[facility]ORATORYCLIA [id number] [address] Leukocyte esterase Test strip Ql (U) Negative Normal Negative, 25 [place]/uL [facility] Comment on above: Order Comment: Speci men Type: URINE SPECIMENOrdering Facility: [facility] Address: [address] [place] [address] Performed By: #### 2 4356-8 ####[facility]ORATORYCLIA [id number] [address] [place] Nitrite Ql (U) Negative Normal Negative [facility] Comment on above: Order Comment: Speci men Type: URINE SPECIMENOrdering Facility: [facility] Address: [address] [place] [address] Performed By: #### 2 4356-8 ####[facility]ORATORYCLIA [id number] [address] pH (U) 7.0 [pH] Normal 5.0-8.0 [facility] Comment on above: Order Comment: Speci men Type: URINE SPECIMENOrdering Facility: [facility] Address: [address] [place] [address] Performed By: #### 2 4356-8 ####[facility]ORATORYCLIA [id number] [address] Protein (U) [Mass/Vol] Negative Normal Trace , Negative [facility] Comment on above: Order Comment: Speci men Type: URINE SPECIMENOrdering Facility: [facility] Address: [address] [place] [address] Performed By: #### 2 4356-8 ####[facility]ORATORYCLIA [id number] [address] [place] [facility] RBC LM.HPF (Urine sed) [#/Area] 3-5 /HPF Abnormal 0-3 /HPF [facility] Comment on above: Order Comment: Speci men Type: URINE SPECIMENOrdering Facility: [facility] Address: [address] [place] [address] Performed By: #### 2 4356-8 ####[facility] CENTERCLIA [id number] [address] Specific gravity (U) [Rel density] 1.019 Normal 1.005-1.03 0 [facility] Comment on above: Order Comment: Speci men Type: URINE SPECIMENOrdering Facility: [facility] Address: [address] [place] [address] Performed By: #### 2 4356-8 ####[facility]ORATORYCLIA [id number] [address] Urobilinogen Ql (U) Normal Normal Normal [facility] Comment on above: Order Comment: Speci men Type: URINE SPECIMENOrdering Facility: [facility] Address: [address] [place] [address] Performed By: #### 2 4356-8 ####[facility] LABORATORYCLIA [id number] [place] [address] [place] WBC LM.HPF (Urine sed) [#/Area] 0-5 /HPF Normal 0-5 /HPF [facility] Comment on above: Order Comment: Speci men Type: URINE SPECIMENOrdering Facility: [facility] Address: [facility] [place] [address] Performed By: #### 2 4356-8 ####[facility] LABORATORYCLIA [id number] [place] [address] [place] Virtual Office Visiton 10-02 Virtual Office Visit [facility] [address] [place] [address] OFFICE VISIT Date of Service: MR#: [id number] Acct: [id number] Patient: DANETTE BISHOP Rep #: [id number] : 1945 Provider: Dr. Jin Rosales MD Age/Sex: 79/F Location: [facility] Status: Signed Intake Vital Signs 09/11/24 12:37 Height 5 ft 1 in Intake Visit Reasons: Amb Documentation Chief Complaint: Back pain Allergies shellfish derived Allergy (Severe, Verified 09/11/24 12:37) throat swelling adhesive tape Adverse Reaction (Verified 09/11/24 12:37) Rash Have you fallen in the past year?: No PFSH Medical History Chronic back pain Breast cancer Liver cancer Wears glasses Post-menopausal Cancer Depression Anxiety Alcohol use Thyroid disease Anemia Easy bruising Excessive bleeding Back pain TIA (transient ischemic attack) History of hiatal hernia History of ulceration History of IBS Gastric reflux Former smoker Shortness of breath on exertion History of echocardiogram Hypertension History of irregular heartbeat History of rheumatic fever LUQ pain 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 Epigastric abdominal pain Liver metastasis 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 Wears dentures Sleep apnea History of TIA (transient ischemic attack) History of thyroid disease Back pain Neck pain Severe headache Stomach ulcer History of cancer Arthritis History of hypertension Surgical History History of lumpectomy History of back surgery History of thyroid surgery Family History Mother Colon cancer passed from recurrence Thyroid disorder Father Hypertension CVA (cerebral vascular accident) Sister Breast cancer, Onset Age: 87 Aunt Colon cancer paternal Social History household members: spouse Smoking Status: Former smoker how long ago did patient quit smoking: >50 years ago; off and on for 2 years, socially only alcohol intake: current alcohol intake frequency: 0-2 drinks per day Alcohol type: wine details: socially substance use type: does not use additional social history: denies vaping, denies marijuana, denies edibles, denies aspirin and ibuprofen use HPI HPI Chief Complaint: Back pain Details: I called and spoke with the patient about the MRI results from this morning. I had last seen her 3 weeks ago and had ordered a repeat MRI with and without contrast to be as an interval MRI after her August MRI. The suspicion of continued pain out of proportion to the degenerative pathology in the lower lumbar prompted this MRI. Also patient's infection markers were moderately high and she is on Herceptin for metastatic breast cancer which may be an immunosuppressant, and there was a suspicion for possible infection. I spoke with the patient and discussed that the new MRI shows new T12-L1 discitis which was not present in the March MRI suggesting this is an acute process. Patient denies any UTI or respiratory infections in the last couple of months. She has had UTIs in the past. She denies any mid back pain and continues to have lower lumbar region pain mainly spasms. She denies any mid back pain or any radicular pain into the abdomen. The MRI does not show any acute changes in the lower lumbar pathology which is adjacent segment degeneration above and below her L4-5 fusion. Explained to her the MRI findings of discitis are fairly serious and infectious pathology often can worsen over hours and days. Explained to her that this will require a biopsy for both cultures as well as pathology to rule out any neoplastic process with or without discitis. Explained to her that the biopsy may not be able to be done on an urgent basis here in [place] and I would recommend referral to a tertiary center for biopsy, blood cultures and possibly antibiotic treatment for the discitis. Suggested to discuss with her oncologist and also possibly go to the ER at a tertiary center for further treatment of discitis or possibly neoplastic process at T12-L1. At this time, she is not taking any steroids. I advised her against taking any steroids. Answered all questions. Exam Details: Details:: Exam was limited due to phone visit with no video. Coding Level of Care Code New Sync Audio only Low 30min 10/02/24 1512 Date Jin Rosales MD Cosigner Signature: Date (if applicable) CC: Dr. Tami Chang MD; Dr. Christiano Centeno, DO Normal [facility] AST(SGOT)on 09-24-2024 AST [Catalytic activity/Vol] 19 U/L Normal <=31 [facility] Comment on above: Performed By: #### L 501.4405, L500.4100, L501.4100, L501.0900, L501.9520 ####[facility] [id number] [place], [address] Alanine Aminotransferas (SGP T)on 09-24-2024 ALT [Catalytic activity/Vol] U/L Normal <=34 [facility] Comment on above: Performed By: #### L 501.4405, L500.4100, L501.4100, L501.0900, L501.9520 ####[facility] [id number] [place], [place], [id number] Calculated very low density lipoprotein (VLDL) cholesterol measurementOrdered By: Tami Chang on 09-24-2024 Calculated very low density lipoprotein (VLDL) cholesterol measurement 20 mg/dL 5-40 [facility] LDL calc ser/plasOrdered By: Tami Chang on 09-24-2024 Cholesterol in LDL [Mass/Vol] 94 mg/dL [facility] Comment on above: Tpmszrsmuv=414-915 m g/dL & Higher Vxpo=558 mg/dL or greater Laboratory - Chemistry and C hemistry - challengeOrdered By: Tami Chang on 09-24-2024 AST [Catalytic activity/Vol] 19 U/L <32 [facility] Lipid Profileon 09-24-2024 CHOL:HDL 2.[address] [facility] Comment on above: Performed By: #### L 501.4405, L500.4100, L501.4100, L501.0900, L501.9520 ####[facility] [address] [place], [address] Cholesterol [Mass/Vol] 183 mg/dL Normal <=200 [facility] Comment on above: Result Comment: Chol esterol level, Desirable <200 mg/dL Borderline high cholesterol 200-239 mg/dL High cholesterol >=240 mg/dL Recommendations of the NCEP Adult Treatment Panel for the following risk-cutoff thresholds for the [place] population. Performed By: #### L 501.4405, L500.4100, L501.4100, L501.0900, L501.9520 ####[facility] [address] [place], [address] Cholesterol in HDL [Mass/Vol] 69 mg/dL Normal [facility] Comment on above: Result Comment: [place] onal Cholesterol Education Program (NCEP) guidelines: <40 mg/dL: Low HDL-cholesterol (major risk factor for CHD) >= 60 mg/dL: High HDL-cholesterol (negative risk factor for CHD) HDL-cholesterol is affected by a number of factors, e.g. smoking, exercise, hormones, sex and age. Performed By: #### L 501.4405, L500.4100, L501.4100, L501.0900, L501.9520 ####[facility] [address] [place], [address] Cholesterol in LDL [Mass/Vol] 94 mg/dL Normal [facility] Comment on above: Result Comment: Bord leqyzp=530-135 mg/dL Higher Oolp=007 mg/dL or greater Performed By: #### L 501.4405, L500.4100, L501.4100, L501.0900, L501.9520 ####[facility] [address] [place], [address] Cholesterol in VLDL [Mass/Vol] 20 mg/dL Normal 5-40 [facility] Comment on above: Performed By: #### L 501.4405, L500.4100, L501.4100, L501.0900, L501.9520 ####[facility] [address] [place], [address] Triglyceride [Mass/Vol] 102 mg/dL Normal [facility] Comment on above: Result Comment: The drugs N-Acetylcysteine and Metamizole may falsely depress this assay. Normal range: <150 mg/dL Borderline High: 150-199 mg/dL High: 200-499 mg/dL Very High: >500 mg/dL Performed By: #### L 501.4405, L500.4100, L501.4100, L501.0900, L501.9520 ####[facility] [address] [place], [address] Protein+Creatinine Ratio,Uri neon 09-24-2024 PROT:CRE RATIO 170 mg/g CRE Normal 0-200 [facility] Comment on above: Performed By: #### L 501.4405, L500.4100, L501.4100, L501.0900, L501.9520 ####[facility] [address] [place], [address] Protein (U) [Mass/Vol] 20.1 mg/dL High 0.0-12.0 [facility] Comment on above: Performed By: #### L 501.4405, L500.4100, L501.4100, L501.0900, L501.9520 ####[facility] [address] [place], [address] UR CREAT 118.00 mg/dL Normal 28.00-217. 00 [facility] Comment on above: Performed By: #### L 501.4405, L500.4100, L501.4100, L501.0900, L501.9520 ####[facility] [address] [place], [address] Random urine creatinine agnieszka urement (mass/volume)Ordered By: Tami Chang on 09-24-2024 Creatinine Unsp time (U) [Mass/Vol] 118.00 mg/dL 28.00-217. 00 [facility] Screening total cholesterol/ high density lipoprotein (HDL) cholesterol ratioOrdered By: Tami Chang on 09-24-2024 Cholesterol.total/Chol esterol in HDL [Mass ratio] 2.65 {ratio} [facility] Serum or plasma alanine haynes otransferase (ALT) measurementOrdered By: Tmai Chang on 09-24-2024 ALT [Catalytic activity/Vol] U/L <35 [facility] Serum or plasma cholesterol in HDL measurement (mass/volume)Ordered By: Tami Chang on 09-24-2024 Cholesterol in HDL [Mass/Vol] 69 mg/dL >40 [facility] Comment on above: National Cholesterol Education Program (NCEP) guidelines:<40 mg/dL: Low HDL-cholesterol (major risk factor for CHD)>= 60 mg/dL: High HDL-cholesterol (negative risk factor for CHD)HDL-cholesterol is affected by a number of factors, e.g. smoking, exercise, hormones, sex and age. Serum or plasma cholesterol measurement (mass/volume)Ordered By: Tami Chang on 09-24-2024 Cholesterol [Mass/Vol] 183 mg/dL <201 [facility] Comment on above: Cholesterol level, D esirable <200 mg/dLBorderline high cholesterol 200-239 mg/dLHigh cholesterol >=240 mg/dLRecommendations of the NCEP Adult Treatment Panel for the following risk-cutoff thresholds for the [place] population. TSH DL <= 0.005 mIU/L QnOrde red By: Tami Chang on 09-24-2024 TSH Qn 0.476 uIU/mL 0.300-4.[address] [facility] Thyroid Stim Hormone (TSH)on 09-24-2024 TSH 0.476 uIU/mL Normal 0.300-4.[address] [facility] Comment on above: Performed By: #### L 501.4405, L500.4100, L501.4100, L501.0900, L501.9520 ####[facility] [address] [place], [address] Triglycerides measurementOrd ered By: Tami Chang on 09-24-2024 Triglyceride [Mass/Vol] 102 mg/dL <199 [facility] Comment on above: The drugs N-Acetylcy steine and Metamizole may falsely depress this assay. Normal range: <150 mg/dLBorderline High: 150-199 mg/dLHigh: 200-499 mg/dLVery High: >500 mg/dL Urine protein measurement (m ass/volume)Ordered By: Tami Chang on 09-24-2024 Protein (U) [Mass/Vol] 20.1 mg/dL High 0.0-12.0 [facility] Urine protein/creatinine mas s ratioOrdered By: Tami Chang on 09-24-2024 Protein/Creatinine (U) [Mass ratio] 170 mg/g CRE 0-200 [facility] CNPNon 09-18-2024 CNPN Normal [facility] Virtual Office Visiton 09-14 Virtual Office Visit [facility] [address] [place] [address] OFFICE VISIT Date of Service: MR#: [id number] Acct: [id number] Patient: DANETTE BISHOP Rep #: [id number] : 1945 Provider: Dr. Jin Rosales MD Age/Sex: 79/F Location: [facility] Status: Signed Intake Vital Signs 09/11/24 12:37 Height 5 ft 1 in Weight: 152 lb 6 oz BMI 28.8 Intake Visit Reasons: Amb Documentation Chief Complaint: fever, ST, cough, fatigue, SOB Allergies shellfish derived Allergy (Severe, Verified 09/11/24 12:37) throat swelling adhesive tape Adverse Reaction (Verified 09/11/24 12:37) Rash Have you fallen in the past year?: No [facility] Medical History Chronic back pain Breast cancer Liver cancer Wears glasses Post-menopausal Cancer Depression Anxiety Alcohol use Thyroid disease Anemia Easy bruising Excessive bleeding Back pain TIA (transient ischemic attack) History of hiatal hernia History of ulceration History of IBS Gastric reflux Former smoker Shortness of breath on exertion History of echocardiogram Hypertension History of irregular heartbeat History of rheumatic fever LUQ pain 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 Epigastric abdominal pain Liver metastasis 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 Wears dentures Sleep apnea History of TIA (transient ischemic attack) History of thyroid disease Back pain Neck pain Severe headache Stomach ulcer History of cancer Arthritis History of hypertension Surgical History History of lumpectomy History of back surgery History of thyroid surgery Family History Mother Colon cancer passed from recurrence Thyroid disorder Father Hypertension CVA (cerebral vascular accident) Sister Breast cancer, Onset Age: 87 Aunt Colon cancer paternal Social History household members: spouse Smoking Status: Former smoker how long ago did patient quit smoking: >50 years ago; off and on for 2 years, socially only alcohol intake: current alcohol intake frequency: 0-2 drinks per day Alcohol type: wine details: socially substance use type: does not use additional social history: denies vaping, denies marijuana, denies edibles, denies aspirin and ibuprofen use HPI HPI Chief Complaint: fever, ST, cough, fatigue, SOB Details: Patient was informed that today's visit charges, even if billed to insurance may still be the patient's responsibility to pay. DANETTE BISHOP, is a 79 F who has seen me earlier this week in clinic. I called and spoke with the patient on the phone today. Reviewed CRP and ESR results. CRP is 1.8 with normal range less than 0.9 Mg per DL. ESR is 45 with normal range less than 20 mm an hour. CBC is normal per patient's report. Called and spoke with patient to update her about the results. Discussed that inflammatory markers are high but not really high suspicious for sepsis. Patient is on Herceptin with possible immunosuppression. Explained to her that these somewhat high ESR and CRP could still be related to infection. She denies any current UTI. Discussed that an interval MRI with and without contrast could help rule out discitis or any infectious pathology in the lumbar spine. Patient was agreeable. MRI with and without contrast lumbar spine was ordered on an urgent basis. Patient will see me back after this is complete. Patient saying that home PT is going well but continues to have severe back spasms. Exam Details: Details:: Exam was limited due to phone visit with no video. Coding Level of Care Code Level 1 Telephone Diagnoses Spondylolisthesis, lumbar region M43.16 Fusion of lumbar spine M43.26 Time Spent (min) 10 Assessment and Plan Assessment and Plan (1) Spondylolisthesis, lumbar region: Status: Acute (2) Fusion of lumbar spine: Status: Acute 09/14/24 1232 Date Jin Rosales MD Cosigner Signature: Date (if applicable) CC: Dr. Tami Chang MD [facility] CBC W Auto Differential pane l (Bld)on 09-12-2024 Basophils (Bld) [#/Vol] 0.06 10*3/uL [facility] Basophils/100 WBC (Bld) 0.7 % [facility] Differential cell count method Nom (Bld) Auto [facility] Eosinophils (Bld) [#/Vol] 0.04 10*3/uL [facility] Eosinophils/100 WBC (Bld) 0.4 % [facility] Erythrocyte distribution width (RBC) [Ratio] 15.4 % High 11.5 - 15.0 % [facility] Hematocrit (Bld) [Volume fraction] 35.9 % Low 36.0 - 46.0 % [facility] Hemoglobin (Bld) [Mass/Vol] 12.1 g/dL 11.5 - 15.5 g/dL [facility] Immature granulocytes (Bld) [#/Vol] 0.04 10*3/uL [facility] Immature granulocytes/100 WBC (Bld) 0.4 % [facility] Interpretation and review of laboratory results Abnormal [facility] Lymphocytes (Bld) [#/Vol] 1.39 10*3/uL [facility] Lymphocytes/100 WBC (Bld) 15.1 % [facility] MCH (RBC) [Entitic mass] 29.5 pg 26.0 - 34.0 pg [facility] MCHC (RBC) [Mass/Vol] 33.7 g/dL 30.5 - 36.0 g/dL [facility] MCV (RBC) [Entitic vol] 87.6 fL 80.0 - 100.0 fL [facility] Monocytes (Bld) [#/Vol] 0.56 10*3/uL [facility] Monocytes/100 WBC (Bld) 6.1 % [facility] Neutrophils (Bld) [#/Vol] 7.1 10*3/uL [facility] Neutrophils/100 WBC (Bld) 77.3 % [facility] Nucleated RBC (Bld) [#/Vol] [facility] Nucleated RBC/100 WBC (Bld) [Ratio] 0 % /100 WBC [facility] Platelet mean volume (Bld) [Entitic vol] 8.5 fL Low 9.0 - 12.7 fL [facility] Platelets (Bld) [#/Vol] 484 10*3/uL High [facility] RBC (Bld) [#/Vol] 4.1 10*6/uL 3.90 - 5.20 m/uL [facility] WBC (Bld) [#/Vol] 9.19 10*3/uL [facility] Basophils (Bld) [#/Vol] 0.06 10*3/uL Normal <0.11 [facility] Comment on above: Order Comment: Speci men Type: BLOOD SPECIMENOrdering Facility: [facility] Address: [address] [place] [address] Performed By: #### 5 7021-8 ####[facility] [id number] [place] [id number] [place] Basophils/100 WBC (Bld) 0.7 % Normal [facility] Comment on above: Order Comment: Speci men Type: BLOOD SPECIMENOrdering Facility: [facility] Address: [address] [place] [address] Performed By: #### 5 7021-8 ####[facility] HARDIKCHLOE [id number] [place] [address] [place] Differential cell count method Nom (Bld) Auto Normal [facility] Comment on above: Order Comment: Speci men Type: BLOOD SPECIMENOrdering Facility: [facility] Address: [address] [place] [address] Performed By: #### 5 7021-8 ####[facility] MIAMINCJane [id number] [place] [address] [place] Eosinophils (Bld) [#/Vol] 0.04 10*3/uL Normal <0.46 [facility] Comment on above: Order Comment: Speci men Type: BLOOD SPECIMENOrdering Facility: [facility] Address: [address] [place] [address] Performed By: #### 5 7021-8 ####[facility] MIAMINCA [id number] [place] [address] [place] Eosinophils/100 WBC (Bld) 0.4 % Normal [facility] Comment on above: Order Comment: Speci men Type: BLOOD SPECIMENOrdering Facility: [facility] Address: [address] [place] [address] Performed By: #### 5 7021-8 ####[facility] MIAMINCLIA [id number] [place] [address] [place] Erythrocyte distribution width (RBC) [Ratio] 15.4 % High 11.5-15.0 [facility] Comment on above: Order Comment: Speci men Type: BLOOD SPECIMENOrdering Facility: [facility] Address: [address] [place] [address] Performed By: #### 5 7021-8 ####[facility] HARDIKKALONAJENNIFERLIA [id number] [place] [address] [place] Hematocrit (Bld) [Volume fraction] 35.9 % Low 36.0-46.0 [facility] Comment on above: Order Comment: Speci men Type: BLOOD SPECIMENOrdering Facility: [facility] Address: [address] [place] [address] Performed By: #### 5 7021-8 ####[facility] [id number] [place] [address] [place] Hemoglobin (Bld) [Mass/Vol] 12.1 g/dL Normal 11.5-15.5 [facility] Comment on above: Order Comment: Speci men Type: BLOOD SPECIMENOrdering Facility: [facility] Address: [address] [place] [address] Performed By: #### 5 7021-8 ####[facility] [id number] [place] [address] [place] Immature granulocytes (Bld) [#/Vol] 0.04 10*3/uL Normal <0.10 [facility] Comment on above: Order Comment: Speci men Type: BLOOD SPECIMENOrdering Facility: [facility] Address: [address] [place] [address] Performed By: #### 5 7021-8 ####[facility] [id number] [place] [address] [place] Immature granulocytes/100 WBC (Bld) 0.4 % Normal [facility] Comment on above: Order Comment: Speci men Type: BLOOD SPECIMENOrdering Facility: [facility] Address: [address] [place] [address] Performed By: #### 5 7021-8 ####[facility] [id number] [place] [address] [place] Lymphocytes (Bld) [#/Vol] 1.39 10*3/uL Normal 1.00-4.00 [facility] Comment on above: Order Comment: Speci men Type: BLOOD SPECIMENOrdering Facility: [facility] Address: [address] [place] [address] Performed By: #### 5 7021-8 ####[facility] [id number] [place] [address] [place] Lymphocytes/100 WBC (Bld) 15.1 % Normal [facility] Comment on above: Order Comment: Speci men Type: BLOOD SPECIMENOrdering Facility: [facility] Address: [address] [place] [address] Performed By: #### 5 7021-8 ####[facility] MIAMINCSHRINERS [facility] [id number] [place] [address] [place] MCH (RBC) [Entitic mass] 29.5 pg Normal 26.0-34.0 [facility] Comment on above: Order Comment: Speci men Type: BLOOD SPECIMENOrdering Facility: [facility] Address: [address] [place] [address] Performed By: #### 5 7021-8 ####[facility] [id number] [place] [address] [place] MCHC (RBC) [Mass/Vol] 33.7 g/dL Normal 30.5-36.0 [facility] Comment on above: Order Comment: Speci men Type: BLOOD SPECIMENOrdering Facility: [facility] Address: [address] [place] [address] Performed By: #### 5 7021-8 ####[facility] MIAMINCLI [id number] [place] [address] [place] MCV (RBC) [Entitic vol] 87.6 fL Normal 80.0-100.0 [facility] Comment on above: Order Comment: Speci men Type: BLOOD SPECIMENOrdering Facility: [facility] Address: [address] [place] [address] Performed By: #### 5 7021-8 ####[facility] HARDIKKALONAMAYNORA [id number] [place] [address] [place] Monocytes (Bld) [#/Vol] 0.56 10*3/uL Normal <0.87 [facility] Comment on above: Order Comment: Speci men Type: BLOOD SPECIMENOrdering Facility: [facility] Address: [address] [place] [address] Performed By: #### 5 7021-8 ####[facility] [id number] [place] [address] [place] Monocytes/100 WBC (Bld) 6.1 % Normal [facility] Comment on above: Order Comment: Speci men Type: BLOOD SPECIMENOrdering Facility: [facility] Address: [address] [place] [address] Performed By: #### 5 7021-8 ####[facility] [id number] [place] [address] [place] Neutrophils (Bld) [#/Vol] 7.10 10*3/uL Normal 1.45-7.50 [facility] Comment on above: Order Comment: Speci men Type: BLOOD SPECIMENOrdering Facility: [facility] Address: [address] [place] [address] Performed By: #### 5 7021-8 ####[facility] MIAMINCLIA [id number] [place] [address] [place] Neutrophils/100 WBC (Bld) 77.3 % Normal [facility] Comment on above: Order Comment: Speci men Type: BLOOD SPECIMENOrdering Facility: [facility] Address: [address] [place] [address] Performed By: #### 5 7021-8 ####[facility] HOSPITALKATYLIA [id number] [place] [address] [place] Nucleated RBC (Bld) [#/Vol] 10*3/uL Normal <0.01 [facility] Comment on above: Order Comment: Speci men Type: BLOOD SPECIMENOrdering Facility: [facility] Address: [address] [place] [address] Performed By: #### 5 7021-8 ####[facility]TONLORENZO [id number] [place] [address] [place] Nucleated RBC/100 WBC (Bld) [Ratio] 0.0 /100 WBC Normal [facility] Comment on above: Order Comment: Speci men Type: BLOOD SPECIMENOrdering Facility: [facility] Address: [address] [place] [address] Performed By: #### 5 7021-8 ####[facility] [id number] [place] [address] [place] Platelet mean volume (Bld) [Entitic vol] 8.5 fL Low 9.0-12.7 [facility] Comment on above: Order Comment: Speci men Type: BLOOD SPECIMENOrdering Facility: [facility] Address: [address] [place] [address] Performed By: #### 5 7021-8 ####[facility] DAYTONLORENZO [id number] [place] [address] [place] Platelets (Bld) [#/Vol] 484 10*3/uL High 150-400 [facility] Comment on above: Order Comment: Speci men Type: BLOOD SPECIMENOrdering Facility: [facility] Address: [address] [place] [address] Performed By: #### 5 7021-8 ####[facility] MIAMINCLIA [id number] [place] [address] [place] RBC (Bld) [#/Vol] 4.10 10*6/uL Normal 3.90-5.20 [facility] Comment on above: Order Comment: Speci men Type: BLOOD SPECIMENOrdering Facility: [facility] Address: [address] [place] [address] Performed By: #### 5 7021-8 ####[facility] [id number] [place] [address] [place] WBC (Bld) [#/Vol] 9.19 10*3/uL Normal 3.70-11.00 [facility] Comment on above: Order Comment: Speci men Type: BLOOD SPECIMENOrdering Facility: [facility] Address: [address] [place] [address] Performed By: #### 5 7021-8 ####[facility] [id number] [place] [address] [place] CNOVSPon 09-12-2024 CNOVSP Normal [facility] CRP SerPl-mCncon 09-12-2024 CRP [Mass/Vol] 1.8 mg/dL High <0.9 [facility] Comment on above: Order Comment: Speci men Type: BLOOD SPECIMENOrdering Facility: [facility] Address: [address] [place] [address] Performed By: #### 1 988-5 ####[facility] LABCLIA [id number] [place] [address] [place] Comprehensive metabolic 2000 panelOrdered By: Maryellen Workman on 09-12-2024 Albumin [Mass/Vol] 4 g/dL 3.9 - 4.9 g/dL [facility] ALP [Catalytic activity/Vol] 108 U/L 34 - 123 U/L [facility] ALT [Catalytic activity/Vol] 17 U/L 7 - 38 U/L [facility] Anion gap [Moles/Vol] 10 mmol/L 8 - 15 mmol/L [facility] AST [Catalytic activity/Vol] 11 U/L Low 13 - 35 U/L [facility] Bilirubin [Mass/Vol] 0.5 mg/dL 0.2 - 1 .3 mg/dL [facility] Calcium [Mass/Vol] 9.6 mg/dL 8.5 - 10. 2 mg/dL [facility] Chloride [Moles/Vol] 96 mmol/L Low 98 - 10 7 mmol/L [facility] CO2 [Moles/Vol] 24 mmol/L 22 - 30 mmol/L [facility] Creatinine [Mass/Vol] 0.75 mg/dL 0.58 - 0.96 mg/dL [facility] GFR/1.73 sq M.predicted among non-blacks MDRD (S/P/Bld) [Vol rate/Area] 81 mL/min/{1.73_m2} - PINF [facility] Comment on above: Estimated Glomerular Filtration Rate (eGFR) is calculated using the 2020 CKD-EPI creatinine equation. This equation utilizes serum creatinine, sex, and age as parameters. The creatinine assay has traceable calibration to isotope dilution-mass spectrometry. Refer to KDIGO guidelines for clinical interpretation. In patients with unstable renal function, e.g. those with acute kidney injury, the eGFR may not accurately reflect actual GFR. Glucose [Mass/Vol] 85 mg/dL 74 - 99 mg/dL [facility] Comment on above: The [place] Diabete s Association (ADA) provides guidance for cutoff values for fasting glucose and random glucose. The ADA defines fasting as no caloric intake for at least 8 hours. Fasting plasma glucose results between 100 to 125 mg/dL indicate increased risk for diabetes (prediabetes). Fasting plasma glucose results greater than or equal to 126 mg/dL meet the criteria for diagnosis of diabetes. In the absence of unequivocal hyperglycemia, results should be confirmed by repeat testing. In a patient with classic symptoms of hyperglycemia or hyperglycemic crisis, random plasma glucose results greater than or equal to 200 mg/dL meet the criteria for diagnosis of diabetes. Reference: Standards of Medical Care in Diabetes 2016, [place] Diabetes Association. Diabetes Care. 2016.39(Suppl 1). Interpretation and review of laboratory results Abnormal [facility] Potassium [Moles/Vol] 4.3 mmol/L 3.7 - 5.1 mmol/L [facility] Protein [Mass/Vol] 7.3 g/dL 6.3 - 8.0 g/dL [facility] Sodium [Moles/Vol] 130 mmol/L Low 136 - 144 mmol/L [facility] Urea nitrogen [Mass/Vol] 18 mg/dL 7 - 21 mg/dL [facility] Comprehensive metabolic 2000 panelon 09-12-2024 Albumin [Mass/Vol] 4.0 g/dL Normal 3.9-4.9 [facility] Comment on above: Order Comment: Speci men Type: BLOOD SPECIMENOrdering Facility: [facility] Address: [address] [place] [address] Performed By: #### 2 4323-8 ####[facility] JOI MILLTOWNCLIA [id number] [place] [address] [place] ALP [Catalytic activity/Vol] 108 U/L Normal 34-123 [facility] Comment on above: Order Comment: Speci men Type: BLOOD SPECIMENOrdering Facility: [facility] Address: [address] [place] [address] Performed By: #### 2 4323-8 ####[facility] MILLWNCLIA [id number] [place] [address] [place] ALT [Catalytic activity/Vol] 17 U/L Normal 7-38 [facility] Comment on above: Order Comment: Speci men Type: BLOOD SPECIMENOrdering Facility: [facility] Address: [address] [place] [address] Performed By: #### 2 4323-8 ####[facility] MILLTOWNCLIA [id number] [place] [address] [place] Anion gap [Moles/Vol] 10 mmol/L Normal 8-15 [facility] Comment on above: Order Comment: Speci men Type: BLOOD SPECIMENOrdering Facility: [facility] Address: [address] [place] [address] Performed By: #### 2 4323-8 ####[facility] MILLTOWNCLIA [id number] [place] [address] [place] AST [Catalytic activity/Vol] 11 U/L Low 13-35 [facility] Comment on above: Order Comment: Speci men Type: BLOOD SPECIMENOrdering Facility: [facility] Address: [address] [place] [address] Performed By: #### 2 4323-8 ####[facility] [id number] [place] [address] [place] Bilirubin [Mass/Vol] 0.5 mg/dL Normal 0.2-1.3 [facility] Comment on above: Order Comment: Speci men Type: BLOOD SPECIMENOrdering Facility: [facility] Address: [address] [place] [address] Performed By: #### 2 4323-8 ####[facility] [id number] [place] [address] [place] Calcium [Mass/Vol] 9.6 mg/dL Normal 8.5-10.2 [facility] Comment on above: Order Comment: Speci men Type: BLOOD SPECIMENOrdering Facility: [facility] Address: [address] [place] [address] Performed By: #### 2 4323-8 ####[facility] [id number] [place] [address] [place] Chloride [Moles/Vol] 96 mmol/L Low 98-107 [facility] Comment on above: Order Comment: Speci men Type: BLOOD SPECIMENOrdering Facility: [facility] Address: [address] [place] [address] Performed By: #### 2 4323-8 ####[facility] [id number] [place] [address] [place] CO2 [Moles/Vol] 24 mmol/L Normal 22-30 [facility] Comment on above: Order Comment: Speci men Type: BLOOD SPECIMENOrdering Facility: [facility] Address: [address] [place] [address] Performed By: #### 2 4323-8 ####[facility] [id number] [place] [address] [place] Creatinine [Mass/Vol] 0.75 mg/dL Normal 0.58-0.96 [facility] Comment on above: Order Comment: Speci men Type: BLOOD SPECIMENOrdering Facility: [facility] Address: [address] [place] [address] Performed By: #### 2 4323-8 ####[facility] [id number] [place] [address] [place] Creatinine and Glomerular filtration rate.predicted panel (S/P/Bld) 81 mL/min/1.73m??? Normal >=60 [facility] Comment on above: Order Comment: Speci men Type: BLOOD SPECIMENOrdering Facility: [facility] Address: [address] [place] [address] Result Comment: Amina mated Glomerular Filtration Rate (eGFR) is calculated using the 2020 CKD-EPI creatinine equation. This equation utilizes serum creatinine, sex, and age as parameters. The creatinine assay has traceable calibration to isotope dilution-mass spectrometry. Refer to KDIGO guidelines for clinical interpretation. In patients with unstable renal function, e.g. those with acute kidney injury, the eGFR may not accurately reflect actual GFR. Performed By: #### 2 4323-8 ####[facility]TON[facility] [id number] [place] [address] [place] Glucose [Mass/Vol] 85 mg/dL Normal 74-99 [facility] Comment on above: Order Comment: Speci men Type: BLOOD SPECIMENOrdering Facility: [facility] Address: [address] [place] [address] Result Comment: The [place] Diabetes Association (ADA) provides guidance for cutoff values for fasting glucose and random glucose. The ADA defines fasting as no caloric intake for at least 8 hours. Fasting plasma glucose results between 100 to 125 mg/dL indicate increased risk for diabetes (prediabetes).Fasting plasma glucose results greater than or equal to 126 mg/dL meet the criteria for diagnosis of diabetes. In the absence of unequivocal hyperglycemia, results should be confirmed by repeat testing. In a patient with classic symptoms of hyperglycemia or hyperglycemic crisis, random plasma glucose results greater than or equal to 200 mg/dL meet the criteria for diagnosis of diabetes.Reference: Standards of Medical Care in Diabetes 2016, [place] Diabetes Association. Diabetes Care. 2016.39(Suppl 1). Performed By: #### 2 4323-8 ####[facility] MILLTOWNELIA [id number] [place] [address] [place] Potassium [Moles/Vol] 4.3 mmol/L Normal 3.7-5.1 [facility] Comment on above: Order Comment: Speci men Type: BLOOD SPECIMENOrdering Facility: [facility] Address: [address] [place] [address] Performed By: #### 2 4323-8 ####[facility] [id number] [place] [address] [place] Protein [Mass/Vol] 7.3 g/dL Normal 6.3-8.0 [facility] Comment on above: Order Comment: Speci men Type: BLOOD SPECIMENOrdering Facility: [facility] Address: [address] [place] [address] Performed By: #### 2 4323-8 ####[facility] [id number] [place] [address] [place] Sodium [Moles/Vol] 130 mmol/L Low 136-144 [facility] Comment on above: Order Comment: Speci men Type: BLOOD SPECIMENOrdering Facility: [facility] Address: [address] [place] [address] Performed By: #### 2 4323-8 ####[facility] [id number] [place] [address] [place] Urea nitrogen [Mass/Vol] 18 mg/dL Normal 7-21 [facility] Comment on above: Order Comment: Speci men Type: BLOOD SPECIMENOrdering Facility: [facility] Address: [address] [place] [address] Performed By: #### 2 4323-8 ####[facility] [id number] [place] [address] [place] ESR Westergren method (Bld) [Velocity]on 09-12-2024 ESR (Bld) [Velocity] 45 mm/h High [facility] Interpretation and review of laboratory results Abnormal [facility] ESR (Bld) [Velocity] 45 mm/h High 0-20 [facility] Comment on above: Order Comment: Speci men Type: BLOOD SPECIMENOrdering Facility: [facility] Address: [address] [place] [address] Performed By: #### 4 537-7 ####[facility] LABCLIA [id number] [place] [address] [place] L/S Spine Min 4 Viewson L/S Spine Min 4 Views [facility] Imaging Services [address] [place] [address] L/S Spine Min 4 Views MR#: [id number] Acct: [id number] Name: DANETTE BISHOP Rep #: [id number] : 1945 F 79 From: Tiana Telles MD PCP: Dr. Tami Chang MD Status: DEP AMB Study: L/S Spine Min 4 Views Date of Exam: 09/11/24 Exam# [id number] Ordering Dr: Dede Timmons [employer] IN[employer]-C PROCEDURE: L/S SPINE MIN 4 VIEWS 09/11/2024 REASON FOR EXAM: CHRONIC BACK PAIN, PAIN GOT SIGNIFICANTLY WORSE RECENTLY TECHNIQUE: 4 view(s) of the thoracic and lumbar spine. COMPARISON: None available FINDINGS: Curvature: Lordosis of the lumbar spine Other findings: Postsurgical changes of a L4-L5 spinal fusion with intervertebral disc spacer placement. There is loss of intervertebral disc height at L3-L4, and L1-L2. Degenerative bridging osteophytosis throughout the lumbar spine. Other: RAD/L/S Spine Min 4 Views IMPRESSION: *Multilevel degenerative changes throughout the lumbar spine. *Postsurgical changes of a spinal fusion L4-L5 with intervertebral disc spacer placement. Reading Location: [facility] CC: TYLER Timmons; Dr. Tami Chang MD Home Care Liaison: Signed Normal [facility] Orthopedic Visit Reporton Orthopedic Visit Report [facility] [address] [place], [place] [id number] OFFICE VISIT Date of Service: 09/11/24 MR#: [id number] Acct: [id number] Name: DANETTE BISHOP Rep #: [id number] : 1945 Provider: Dr. Jin Rosales MD Age/Sex: 79/F Location: [facility] Status: Signed with Addenda ADDENDUM by Dr. Jin Rosales MD on 09/11/24 at 1648 Assessment and Plan Assessment and Plan (1) Spondylolisthesis, lumbar region: Status: Acute (2) Fusion of lumbar spine: Status: Acute Orders: Orders L/S Spine Min 4 Views Today ANOOP AyalaC M54.50 - Low back pain, unspecified CRP Today Dr. Jin Rosales MD M54.50 - Low back pain, unspecified Erythrocyte Sed Rate Today Dr. Jin Rosales MD M54.50 - Low back pain, unspecified CBC W/Diff, Automated Today Dr. Jin Rosales MD G89.29 - Other chronic pain, M54.50 - Low back pain, unspecified Referrals Home Health Dr. Jin Rosales MD M43.16 - Spondylolisthesis, lumbar region, M54.50 - Low back pain, unspecified 09/11/24 1648 Date Jin Rosales MD cc: Dr. Tami Chang MD; Dr. Christiano Centeno, DO * Signed Intake Vital Signs 08/25/24 18:12 09/11/24 12:37 Height 5 ft 1 in 5 ft 1 in Weight: 152 lb 6 oz BMI 28.8 Intake Visit Reasons: lumbar spine Allergies shellfish derived Allergy (Severe, Verified 09/11/24 12:37) throat swelling adhesive tape Adverse Reaction (Verified 09/11/24 12:37) Rash Medications ???Medication ???Instructions ???Recorded ???Confirmed ???Type fluoxetine 40 mg capsule 40 mg PO DAILY 06/16/17 09/11/24 H istory lisinopril 20 mg tablet 20 mg PO DAILY 09/25/20 09/11/24 H istory levothyroxine 125 mcg tablet 112 mcg PO DAILY 30 days #27 tabs 06/11/21 09/11/24 History hydrocodone-acetaminophen 5-325mg 1 tab PO Q6H PRN pain 07/16/22 History 5mg-325mg letrozole 2.5 mg tablet 2.5 mg PO DAILY 02/16/24 09/11/24 History amlodipine 5 mg tablet 5 mg PO QHS 04/30/24 09/11/24 Hist ory clopidogrel 75 mg tablet 75 mg PO DAILY 04/30/24 09/11/24 H istory esomeprazole magnesium 20 mg 20 mg PO DAILY 04/30/24 09/11/24 H istory capsule,delayed release (Nexium) liothyronine 5 mcg tablet 5 mcg PO DAILY 05/21/24 09/11/24 H istory zolpidem 10 mg tablet 10 mg PO QHS 05/21/24 09/11/24 His tory multivitamin (Daily Multi-Vitamin 1 tab PO DAILY 08/25/24 09/11/24 History tablet) baclofen 5 mg tablet 5 mg PO TID 09/11/24 09/11/24 Hist ory Have you fallen in the past year?: No PFSH Medical History Chronic back pain Breast cancer Liver cancer Wears glasses Post-menopausal Cancer Depression Anxiety Alcohol use Thyroid disease Anemia Easy bruising Excessive bleeding Back pain TIA (transient ischemic attack) History of hiatal hernia History of ulceration History of IBS Gastric reflux Former smoker Shortness of breath on exertion History of echocardiogram Hypertension History of irregular heartbeat History of rheumatic fever LUQ pain 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 Epigastric abdominal pain Liver metastasis 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 Wears dentures Sleep apnea History of TIA (transient ischemic attack) History of thyroid disease Back pain Neck pain Severe headache Stomach ulcer History of cancer Arthritis History of hypertension Surgical History History of lumpectomy History of back surgery History of thyroid surgery Family History Mother Colon cancer passed from recurrence Thyroid disorder Father Hypertension CVA (cerebral vascular accident) Sister Breast cancer, Onset Age: 87 Aunt Colon cancer paternal Social History household members: spouse Smoking Status: Former smoker how long ago did patient quit smoking: >50 years ago; off and on for 2 years, socially only alcohol intake: current alcohol intake frequency: 0-2 drinks per day Alcohol type: wine details: socially substance use type: does not use additional social history: denies vaping, denies marijuana, denies edibles, denies aspirin and ibuprofen use HPI lumbar spine Details: This documentation accurately reflects the service provided and the decisions made by me, Dr. Jin Rosales MD 09/11/24 1234. Part of today???s visit was documented by Cheri SCHRADER, acting as scribe. DANETTE BISHOP is a 79 year old F here today for low back pain that started on August 25 when she started having back spasms and pain ever since. She denies any known injury or event to cause the pain. (more content not included)... Normal [facility] CNPNon 09-10-2024 CNPN Normal [facility] Electrocardiogram reportOrde red By: Max Kang on 08-29-2024 EKG study [facility] Cardiovascular Services [address] [place] [address] 12 Lead EKG 08/28/24 0535 MR#: [id number] Acct: [id number] Name: DANETTE BISHOP Rep #:[id number] : 1945 79 From: Max Kang MD Attending Dr: DO Issac Everett tatus: ADM JASPREET Ordering Dr: Wendy Calle MD Date: Location: [facility] Sex: F C Admitted: 08/25/24 Test Reason : AM EKG Blood Pressure : */* mmHG Vent. Rate : 63 BPM Atrial Rate : 63 BPM P-R Int : 128 ms QRS Dur : 100 ms QT Int : 430 ms P-R-T Axes : 35 25 25 degrees QTcB Int : 440 ms Normal sinus rhythm Normal ECG When compared with ECG of 04-Jun-2024 08:58, No significant change was found Confirmed by PEARL YOUNG, MAX ([id number]), television news video editor EDELMIRA FISHER ([id number]) on 08/29/2024 7:18:55 AM Referred By: DEANNA Confirmed By: MAX KANG MD 08/29/24 0719 Date _ Max Kang MD CC: Dr. Tami Chang MD; Dr. Wendy Calle MD; Dr. Carolyn Hatch DO ~ Signed [facility] Other Phone: CBC-Complete Blood Cnt No Di ffon 08-28-2024 Erythrocyte distribution width (RBC) [Ratio] 15.1 % High 11.6-14.6 [facility] Comment on above: Performed By: #### L 100.0500 ####[facility] [address] [facility] [place], [place], [id number] Hematocrit (Bld) [Volume fraction] 35.1 % Low 37-47 [facility] Comment on above: Performed By: #### L 100.0500 ####[facility] [address] [facility] [place], [place], [phone] Hemoglobin (Bld) [Mass/Vol] 11.9 g/dL Low 12.0-15.0 [facility] Comment on above: Performed By: #### L 100.0500 ####[facility] [address] [place], [address] MCH (RBC) [Entitic mass] 29.9 pg Normal 27.0-32.0 [facility] Comment on above: Performed By: #### L 100.0500 ####[facility] [address] [place], [address] MCHC (RBC) [Mass/Vol] 33.9 g/dL Normal 32-36 [facility] Comment on above: Performed By: #### L 100.0500 ####[facility] [address] [place], [address] MCV (RBC) [Entitic vol] 88.2 fL Normal 81-99 [facility] Comment on above: Performed By: #### L 100.0500 ####[facility] [address] [place], [address] Platelet mean volume (Bld) [Entitic vol] 9.5 fL Normal 6.2-12.0 [facility] Comment on above: Performed By: #### L 100.0500 ####[facility] [address] [place], [address] Platelets (Bld) [#/Vol] 364 10*3/uL Normal 150-450 [facility] Comment on above: Performed By: #### L 100.0500 ####[facility] [address] [place], [address] RBC (Bld) [#/Vol] 3.98 10*6/uL Low 4.2-5.4 [facility] Comment on above: Performed By: #### L 100.0500 ####[facility] [address] [place], [address] RDW SD 48.7 fl High 35.1-43.9 [facility] Comment on above: Performed By: #### L 100.0500 ####[facility] [address] [place], [address] WBC (Bld) [#/Vol] 9.3 10*3/uL Normal 4.4-11.0 [facility] Comment on above: Performed By: #### L 100.0500 ####[facility] [address] [place], [address] Erythrocyte distribution wid th ratioOrdered By: Wendy Calle on 08-28-2024 Erythrocyte distribution width (RBC) [Ratio] 15.1 % High 11.6-14.6 [facility] Erythrocyte distribution wid th standard deviationOrdered By: Wendy Calle on 08-28-2024 Erythrocyte distribution width (RBC) [Entitic vol] 48.7 fL High 35.1-43.9 [facility] Erythrocyte distribution width (RBC) [Ratio] 48.7 fl High 35.1-43.9 [facility] Hematocrit Auto (Bld) [Volum e fraction]Ordered By: Wendy Calle on 08-28-2024 Hematocrit (Bld) [Volume fraction] 35.1 % Low 37-47 [facility] Hemoglobin measurementOrdere d By: Wendy Calle on 08-28-2024 Hemoglobin (Bld) [Mass/Vol] 11.9 g/dL Low 12.0-15.0 [facility] Lumbar Spine 2 or 3 Viewson 08-28-2024 Lumbar Spine 2 or 3 Views [facility] Imaging Services [address] [place], [place] [id number] Lumbar Spine 2 or 3 Views MR#: [id number] Acct: [id number] Name: DANETTE BISHOP Rep #: [id number] : 1945 F 79 From: Dominik Vides MD PCP: Dr. Tami Chang MD Status: ADM JASPREET Study: Lumbar Spine 2 or 3 Views Date of Exam: Exam# [id number] Ordering Dr: Wendy Calle MD EXAM: XR Lumbosacral Spine, 2 or 3 Views CLINICAL INDICATION: L4/L5 AND L5/S1 BLOCK TECHNIQUE: Frontal and lateral views of the lumbar spine and sacrum. COMPARISON: No relevant prior studies available. FINDINGS: VERTEBRAE: Unremarkable. No acute fracture. Normal alignment. SACRUM/COCCYX: Unremarkable as visualized. No acute fracture. DISC SPACES: No acute findings. No significant narrowing. SOFT TISSUES: Unremarkable. OTHER FINDINGS: Fluoroscopic guidance was used intraoperatively. 6 images were obtained. Total fluoroscopy time 11.4 seconds. Total radiation dose 2.29 mGy. RAD/Lumbar Spine 2 or 3 Views IMPRESSION: Fluoroscopic guidance used intraoperatively. Please refer to the operative note for further details. Reading Location: [facility] CC: Dr. Tami Chang MD; Dr. Wendy Calle MD Home Care Liaison: Signed Normal [facility] MCV (mean corpuscular volume ) determinationOrdered By: Wendy Calle on 08-28-2024 MCV (RBC) [Entitic vol] 88.2 fL 81-99 [facility] MR/POSTOP.ANEon 08-28-2024 MR/POSTOP.ANE [facility] Medical Records Department [address] [place] [address] Anesthesia Postop Eval I 08/28/24 152 MR#: [id number] Acct: [id number] Name: DANETTE BISHOP Rep #: [id number] : 1945 79 From: Yoli Patterson CRNA PCP: Dr. Tami Chang MD Status:ADM JASPREET Y Race: C Location: [facility] [id number] Anesthesia: Postop Eval I Current Vital Signs Temperature: 96.9 F Pulse Rate: 60 Blood Pressure: 187/75 Respiratory Rate: 16 Pulse Ox: 96 Oxygen Delivery Method: Room Air Assessment Airway patent: Yes Spontaneous unlabored respirations: Yes Mental status: Awake nausea: No Vomiting: No Anesthesia Complication: No Fluid Hydration Crystalloid volume administer (ml): 10 Total IV fluid infused: 10 Progress Note Anesthesia document: Postop Eval 1 completed: Yes 08/28/241525 Date Yoli Patterson GENERAL MERCHANDISE MANAGER Cosigner Signature: Date CC: Signed Normal [facility] MR/NPQBTCKV0kn 08-28-2024 MR/POSTOPAN2 [facility] Medical Records Department [address] [place] [address] Anesthesia Postop Eval II 08/28/241936 MR#: [id number] Acct: [id number] Name: DANETTE BISHOP Rep #: [id number] : 1945 79 From: Naveen Ren MD PCP: Dr. Tami Chang MD Status:ADM JASPREET Y Race: C Location: [place] [address] Anesthesia Postop Eval I Sum Postop Eval Completion status Anesthesia document: Postop Eval 1 completed: Yes Anesthesia Postop Eval I Summary Anesthesia Postop Eval I Summary: Anesthesia Postop Eval I: Assessment Summary Airway patent Yes 08/28/24 15:26 GENERAL MERCHANDISE MANAGER.LMIL Spontaneous unlabored Yes 08/28/24 15:26 GENERAL MERCHANDISE MANAGER.LMIL respirations Mental status Awake 08/28/24 15:26 GENERAL MERCHANDISE MANAGER.LMIL nausea No 08/28/24 15:26 GENERAL MERCHANDISE MANAGER.LMIL Vomiting No 08/28/24 15:26 GENERAL MERCHANDISE MANAGER.LMIL Anesthesia Postop Eval I: Fluid Summary Crystalloid volume administer 10 08/28/24 15:26 GENERAL MERCHANDISE MANAGER.LMIL (ml) Colloids volume administered ( ml) Blood Product volume administered (ml) Total IV fluid infused 10 08/28/24 15:26 GENERAL MERCHANDISE MANAGER.LMIL Anesthesia Postop Eval I: Summary Notes Anesthesia Complication No 08/28/24 15:26 GENERAL MERCHANDISE MANAGER.LMIL Anesthesia Complication Comment: Post-operative progress note Anesthesia: Postop Eval II Evaluation Mental status: Awake and Calm Pain Level: 3 nausea: No Vomiting: No Complications Anesthesia Complication: No 08/28/241936 Date Naveen Ren MD Cosigner Signature: Date CC: Signed Normal [facility] Mean corpuscular hemoglobin (MCH) determinationOrdered By: Wendy Calle on 08-28-2024 MCH (RBC) [Entitic mass] 29.9 pg 27.0-32.0 [facility] Mean corpuscular hemoglobin concentration (MCHC) determinationOrdered By: Wendy Calle on 08-28-2024 MCHC (RBC) [Mass/Vol] 33.9 g/dL 32-36 [facility] Mean platelet volume determi nationOrdered By: Wendy Calle on 08-28-2024 Platelet mean volume (Bld) [Entitic vol] 9.5 fL 6.2-12.0 [facility] Platelet countOrdered By: Tono Calle on 08-28-2024 Platelets (Bld) [#/Vol] 364 10*3/uL 150-450 [facility] RBC Auto (Bld) [#/Vol]Ordere d By: Wendy Calle on 08-28-2024 RBC (Bld) [#/Vol] 3.98 10*6/uL Low 4.2-5.4 [facility] TSH DL <= 0.005 mIU/L QnOrde red By: Wendy [place]el on 08-28-2024 Thyroid Stimulating Hormone (TSH) 0.122 uIU/mL Low 0.300-4.[address] [facility] TSH Qn 0.122 uIU/mL Low 0.300-4.[address] [facility] Thyroid Stim Hormone (TSH)on 08-28-2024 TSH 0.122 uIU/mL Low 0.300-4.[address] [facility] Comment on above: Performed By: #### L 501.7088 #### [facility] Laboratory [address] [place], [place] [address], [address] White blood cell (WBC) count Ordered By: Wendy Calle on 08-28-2024 WBC (Bld) [#/Vol] 9.3 10*3/uL 4.4-11.0 [facility] 12 Lead EKGon 08-27-2024 12 Lead EKG [facility] Cardiovascular Services [address] [place] [address] 12 Lead EKG 08/28/24 0535 MR#: [id number] Acct: [id number] Name: DANETTE BISHOP Rep #: [id number] : 1945 79 From: Max Kang MD Attending Dr: Dr. Carolyn Hatch, DO Status: ADM I NO Ordering Dr: Wendy Calle MD Date: 08/27/24 Location: AL3 Sex: F C Admitted: 08/25/24 Test Reason : AM EKG Blood Pressure : */* mmHG Vent. Rate : 63 BPM Atrial Rate : 63 BPM P-R Int : 128 ms QRS Dur : 100 ms QT Int : 430 ms P-R-T Axes : 35 25 25 degrees QTcB Int : 440 ms Normal sinus rhythm Normal ECG When compared with ECG of 04-Jun-2024 08:58, No significant change was found Confirmed by PEARL YOUNG, MAX ([id number]), television news video editor EDELMIRA FISHER ([id number]) on 08/29/2024 7:18:55 AM Referred By: DEANNA Confirmed By: MAX KANG MD 08/29/24 0719 Date Max Kang MD CC: Dr. Tami Chang MD; Dr. Wendy Calle MD; Dr. Carolyn Hatch, DO Signed Normal [facility] Consultation - Orthopedicson 08-27-2024 Consultation - Orthopedics [facility] Medical Records Department [address] [place] [address] Consultation - Orthopedics 08/27/24 1131 MR#: [id number] Acct: [id number] Name: DANETTE BISHOP Rep #: [id number] : 1945 79 From: Jin Rosales MD PCP: Dr. Tami Chang MD Status:ADM JASPREET Location: AL3 [id number] Documented by User: ZARINA Menard 08/27/24 11:43 HPI Consult Data Date of Consult: 08/27/24 HPI Narrative HPI Narrative: DANETTE BISHOP, is a 79 F who presented to [facility] ED on 08/23/2024 with acute on chronic low back pain with spasms and inability to ambulate. Patient has history of chronic low back pain with L4-5 lumbar fusion done at the [facility] in 2018 and then discectomy done there in 2020. Medical history is also significant for metastatic breast cancer; she follows with Dr. Centeno for this and has been stable on trastuzumab and letrozole recently. Around midmorning today patient developed significant bilateral low back muscle spasms. She notes that since her low back procedure she has had chronic low back pain that has generally been tolerable with pain medication. However, she has never had muscle spasms like this before. She was walking at the time and had more difficulty moving the right leg due to pain than the left leg. When she got home she had even worse pain and was essentially unable to move, so she came in for further evaluation. In the ED she was mildly tachycardic to the 100s and mildly hypertensive to the 160s over 80s but otherwise stable on room air. Labs showed WBC count 13, were otherwise fairly benign. CT lumbar spine without contrast showed no acute lumbar fracture and known multilevel degenerative central and neural foraminal stenosis. Was also noted on CT scan to have a distended urinary bladder, and Queen catheter was placed with 900 cc of urine output. Given the intractable back pain with urinary retention and inability to ambulate, hospitalist was contacted for admission. History of L4-5 fusion in 2019 and discectomy [place] [address] Garcia at [facility]. Patient says that starting Tuesday, August 25 she noticed an increase in muscle spasm which caused back pain which made it difficult for her to ambulate. Says that the pain is primarily midline however she does think that it radiates more towards the right side. She denies any numbness or tingling down her legs. The patient tried a lidocaine patch at home as well as Tylenol however that did not seem to help the pain. She has a history of metastatic breast cancer which includes a chemo in 2018 and a mastectomy in 2023. Patient notes that she did have a T6 involvement from the metastatic cancer. [facility] Medical History (Updated 08/27/24 @ 13:[address] Jin Rosales MD) Breast cancer Liver cancer Wears glasses Post-menopausal Cancer Depression Anxiety Alcohol use Thyroid disease Anemia Easy bruising Excessive bleeding Back pain TIA (transient ischemic attack) History of hiatal hernia History of ulceration History of IBS Gastric reflux Former smoker Shortness of breath on exertion History of echocardiogram Hypertension History of irregular heartbeat History of rheumatic fever LUQ pain 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 Epigastric abdominal pain Liver metastasis 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 Wears dentures Sleep apnea History of TIA (transient ischemic attack) History of thyroid disease Back pain Neck pain Severe headache Stomach ulcer History of cancer Arthritis History of hypertension Medical History no medical history Home Medications ???Medication ???Instructions ???Recorded ???Last Taken ???Type fluoxetine 40 mg capsule 40 mg PO DAILY 06/16/17 08/25/24 H istory lisinopril 20 mg tablet 20 mg PO DAILY 09/25/20 08/25/24 H istory levothyroxine 125 mcg tablet 112 mcg PO DAILY 30 days #27 tabs 06/11/21 08/25/24 History hydrocodone-acetaminophen 5-325mg 1 tab PO Q6H PRN pain 07/16/22 History 5mg-325mg alprazolam 0.5 mg tablet 0.5 mg PO DAILY PRN anxiety Unknown History letrozole 2.5 mg tablet 2.5 mg PO DAILY 02/16/24 08/25/24 History amlodipine 5 mg tablet 5 mg PO QHS 04/30/24 08/24/24 Hist ory clopidogrel 75 mg tablet 75 mg PO DAILY 04/30/24 08/25/24 H istory esomeprazole magnesium 20 mg 20 mg PO DAILY 04/30/24 08/25/24 H istory capsule,delayed release (Nexium) liothyronine 5 mcg tablet 5 mcg PO DAILY 05/21/24 08/25/24 H istory zolpidem 10 mg tablet 10 mg PO QHS 05/21/24 08/24/24 His tory acetaminophen 650 mg 650 mg PO PRN ARTHRITIS 08/25/24 0 08/24/24 History tablet,extended release cholecalciferol (vitamin D3) 50 50 mcg PO DAILY 08/25/24 08/24/24 History mcg (2,000 unit) capsule ferrous sulfate 325 mg (65 mg 325 mg PO DAILY 08/25/24 0 (more content not included)... Normal [facility] Magnetic resonance imaging r eportOrdered By: Breanna Herr on 08-27-2024 Study report [facility] Imaging Services [address] [place] [address] Spine Lumbar W/WO Contrast MR#: [id number] Acct: [id number] Name: DANETTE BISHOP Rep #: [id number] : 1945 F 79 From: Laila Herr MD PCP: Dr. Tami Chang MD Status: ADM JASPREET Study:Spine Lumbar W/WO Contrast Date of Exa m: 08/27/24 Exam# [id number] Ordering Dr: Dominik Fitzpatrick DO PROCEDURE: SPINE LUMBAR W/WO CONTRAST 08/27/2024 REASON FOR EXAM: LOW BACK PAIN TECHNIQUE: Multiplaner MRI of the lumbar spine performed without and with intravenous gadolinium-based contrast. . Multiple pulse sequences were obtained. CONTRAST: Clariscan VOLUME: 14mL COMPARISON: 08/25/2024; 11/12/2019 FINDINGS: Vertebrae: Degenerative marrow changes present. Postoperative changes are present of a left posterior transpedicular fusion at L4-5 with an intervertebral disc construct present. A vertebral hemangioma is noted at the T11 vertebral body. Alignment: There is a slight retrolisthesis of L3 on L4 and a slight anterolisthesis of L5 on S1. Conus Medullaris: Terminates at the T12-L1 level. T12-L1: Degenerative disc disease is present with a diffuse broad-base disc bulge causing moderate spinal canal stenosis with minimal mass effect on the conus medullaris. There is moderate right and mild left neural foraminal stenosis. L1-2: Degenerative disc disease with a diffuse broad-based disc bulge causing vytr-nw-luywyrdt spinal canal stenosis. There is dafigrmj-hs-zroqky right and moderate left neural foraminal stenosis. L2-3: Degenerative disc disease with a mild central disc protrusion causing mildspinal canal stenosis. There is moderate left and mild right neural foraminal stenosis. L3-4: Degenerative disc disease with a mild diffuse disc bulge contributing to mild spinal canal stenosis. There is hrycqbzu-iv-ablbpp bilateral neural foraminal stenosis due to disc bulge and uncovertebral and facet hypertrophy. A slight retrolisthesis is noted at this level as stated above. L4-5: Postoperative level with posterior left-sided transpedicular fusion and aninterbody disc construct. Facet hypertrophy is contributing to mild central spinal canal stenosis at this level. L5-S1: Degenerative disc disease with mild diffuse disc bulge contributing to mild spinal canal stenosis. There is vezqiyqg-eo-akklnd left and moderate right neural foraminal stenosis due to discbulge and facet hypertrophy. A slight anterolisthesis is noted at this level as stated above. Sacrum: Unremarkable Soft tissues: Postoperative scarring present in the superficial soft tissues of the lower back. Postcontrast images: Unremarkable. On the inset cutter view, a T2 hypointense lesion is noted in the T6 vertebral body measuring 1.3 cm. MRI/Spine Lumbar W/WO Contrast IMPRESSION: 1. Previous spinal fusion at the L4-5 level. 2. Multilevel degenerative changes are present which are greatest at the postoperative transitional levels of L3-4 and L5-S1. Details of the degenerative changes in the body of the report. 3. Mild spondylolisthesis also present at the transitional levels. 4. A T2 hypointense lesion is incidentally noted in the T6 vertebral body on thescout views, which is indeterminate. Consider dedicated thoracic imaging for further assessment. Reading Location: [facility] CC: Dr. Tami Chang MD; Dr. Dominik Carlos DO ~ Home Care Liaison: Signed [facility] Spine Lumbar W/WO Contraston 08-27-2024 Spine Lumbar W/WO Contrast [facility] Imaging Services [facility] [place] [address] Spine Lumbar W/WO Contrast MR#: [id number] Acct: [id number] Name: DANETTE BISHOP Rep #: [id number] : 1945 F 79 From: Breanna Herr MD PCP: Dr. Tami Chang MD Status: ADM JASPREET Study: Spine Lumbar W/WO Contrast Date of Exam: 08/05 09/28 Exam# [id number] Ordering Dr: Dominik Carlos DO PROCEDURE: SPINE LUMBAR W/WO CONTRAST 08/27/2024 REASON FOR EXAM: LOW BACK PAIN TECHNIQUE: Multiplaner MRI of the lumbar spine performed without and with intravenous gadolinium-based contrast. . Multiple pulse sequences were obtained. CONTRAST: Clariscan VOLUME: 14mL COMPARISON: 08/25/2024; 11/12/2019 FINDINGS: Vertebrae: Degenerative marrow changes present. Postoperative changes are present of a left posterior transpedicular fusion at L4-5 with an intervertebral disc construct present. A vertebral hemangioma is noted at the T11 vertebral body. Alignment: There is a slight retrolisthesis of L3 on L4 and a slight anterolisthesis of L5 on S1. Conus Medullaris: Terminates at the T12-L1 level. T12-L1: Degenerative disc disease is present with a diffuse broad-base disc bulge causing moderate spinal canal stenosis with minimal mass effect on the conus medullaris. There is moderate right and mild left neural foraminal stenosis. L1-2: Degenerative disc disease with a diffuse broad-based disc bulge causing toxo-zg-brzgoses spinal canal stenosis. There is jvzxeczp-cf-uklqxf right and moderate left neural foraminal stenosis. L2-3: Degenerative disc disease with a mild central disc protrusion causing mild spinal canal stenosis. There is moderate left and mild right neural foraminal stenosis. L3-4: Degenerative disc disease with a mild diffuse disc bulge contributing to mild spinal canal stenosis. There is cgyocmyk-oi-ausojr bilateral neural foraminal stenosis due to disc bulge and uncovertebral and facet hypertrophy. A slight retrolisthesis is noted at this level as stated above. L4-5: Postoperative level with posterior left-sided transpedicular fusion and an interbody disc construct. Facet hypertrophy is contributing to mild central spinal canal stenosis at this level. L5-S1: Degenerative disc disease with mild diffuse disc bulge contributing to mild spinal canal stenosis. There is adooyspe-mv-lbbajf left and moderate right neural foraminal stenosis due to disc bulge and facet hypertrophy. A slight anterolisthesis is noted at this level as stated above. Sacrum: Unremarkable Soft tissues: Postoperative scarring present in the superficial soft tissues of the lower back. Postcontrast images: Unremarkable. On the inset cutter view, a T2 hypointense lesion is noted in the T6 vertebral body measuring 1.3 cm. MRI/Spine Lumbar W/WO Contrast IMPRESSION: 1. Previous spinal fusion at the L4-5 level. 2. Multilevel degenerative changes are present which are greatest at the postoperative transitional levels of L3-4 and L5-S1. Details of the degenerative changes in the body of the report. 3. Mild spondylolisthesis also present at the transitional levels. 4. A T2 hypointense lesion is incidentally noted in the T6 vertebral body on the inset cutter views, which is indeterminate. Consider dedicated thoracic imaging for further assessment. Reading Location: [facility] CC: Dr. Tami Chang MD; Dr. Dominik Carlos DO Home Care Liaison: Signed Normal [facility] Anion gap in Serum or Plasma Ordered By: Buzz Alford on 08-26-2024 Anion gap [Moles/Vol] 13 mmol/L 5-15 [facility] BUN/creatinine ratioOrdered By: Buzz Alford on 08-26-2024 Urea nitrogen/Creatinine [Mass ratio] 21.2 mg/mg High 10-20 [facility] Basic Metabolic Profile (BMP )on 08-26-2024 BUN/CRE 21.2 RATIO High [address] [place] [address] Comment on above: Performed By: #### L 100.0100, L500.2500 #### [facility] Laboratory [address] [place], [address] Calcium [Mass/Vol] 8.9 mg/dL Normal 7.6-11.0 [facility] Comment on above: Performed By: #### L 100.0100, L500.2500 #### [facility] [address] [place], [address] Chloride [Moles/Vol] 100 mmol/L Normal 98-108 [facility] Comment on above: Performed By: #### L 100.0100, L500.2500 #### [facility] [address] [place], [address] CO2 [Moles/Vol] 21.4 mmol/L Normal 21.0-32.0 [facility] Comment on above: Performed By: #### L 100.0100, L500.2500 #### [facility] [address] [place], [address] Creatinine [Mass/Vol] 0.68 mg/dL Low 0.70-1.20 [facility] Comment on above: Performed By: #### L 100.0100, L500.2500 #### [facility] [address] [place], [address] ECRCL 50.49 ml/min Normal 50-250 [facility] Comment on above: Performed By: #### L 100.0100, L500.2500 #### [facility] [address] [place], [address] GAP 13 Normal 5-15 [facility] Comment on above: Performed By: #### L 100.0100, L500.2500 #### [facility] [address] [place], [address] GFR/1.73 sq M.predicted among non-blacks MDRD (S/P/Bld) [Vol rate/Area] 89 mL/min/{1.73_m2} Normal >60 [facility] Comment on above: Result Comment: mL/m in/1.73m2 CKD-EPI Creatinine Equation (2020) Performed By: #### L 100.0100, L500.2500 #### [facility] [address] [place], [address] Glucose [Mass/Vol] 121 mg/dL High 70-99 [facility] Comment on above: Performed By: #### L 100.0100, L500.2500 #### [facility] [address] [place], [address] Potassium [Moles/Vol] 4.4 mmol/L Normal 3.3-5.1 [facility] Comment on above: Performed By: #### L 100.0100, L500.2500 #### [facility] [address] [place], [address] Sodium [Moles/Vol] 135 mmol/L Normal 133-145 [facility] Comment on above: Performed By: #### L 100.0100, L500.2500 #### [facility] [address] [place], [address] Urea nitrogen [Mass/Vol] 14 mg/dL Normal 4-19 [facility] Comment on above: Performed By: #### L 100.0100, L500.2500 #### [facility] [address] [place], [address] CBC-Complete Blood Cnt No Di ffon 08-26-2024 Erythrocyte distribution width (RBC) [Ratio] 15.5 % High 11.6-14.6 [facility] Comment on above: Performed By: #### L 100.0100, L500.2500 #### [facility] [address] [place], [address] Hematocrit (Bld) [Volume fraction] 36.0 % Low 37-47 [facility] Comment on above: Performed By: #### L 100.0100, L500.2500 #### [facility] [address] [place], [address] Hemoglobin (Bld) [Mass/Vol] 12.1 g/dL Normal 12.0-15.0 [facility] Comment on above: Performed By: #### L 100.0100, L500.2500 #### [facility] [address] [place], [address] MCH (RBC) [Entitic mass] 29.6 pg Normal 27.0-32.0 [facility] Comment on above: Performed By: #### L 100.0100, L500.2500 #### [facility] [address] [place], [address] MCHC (RBC) [Mass/Vol] 33.6 g/dL Normal 32-36 [facility] Comment on above: Performed By: #### L 100.0100, L500.2500 #### [facility] [address] [place], [address] MCV (RBC) [Entitic vol] 88.0 fL Normal 81-99 [facility] Comment on above: Performed By: #### L 100.0100, L500.2500 #### [facility] [address] [place], [address] Platelet mean volume (Bld) [Entitic vol] 9.5 fL Normal 6.2-12.0 [facility] Comment on above: Performed By: #### L 100.0100, L500.2500 #### [facility] [address] [place], [address] Platelets (Bld) [#/Vol] 347 10*3/uL Normal 150-450 [facility] Comment on above: Performed By: #### L 100.0100, L500.2500 #### [facility] [address] [place], [address] RBC (Bld) [#/Vol] 4.09 10*6/uL Low 4.2-5.4 [facility] Comment on above: Performed By: #### L 100.0100, L500.2500 #### [facility] [address] [place], [address] RDW SD 50.0 fl High 35.1-43.9 [facility] Comment on above: Performed By: #### L 100.0100, L500.2500 #### [facility] [address] [place], [address] WBC (Bld) [#/Vol] 5.6 10*3/uL Normal 4.4-11.0 [facility] Comment on above: Performed By: #### L 100.0100, L500.2500 #### [facility] [address] [place], [address] Carbon dioxide, total [Moles /volume] in Central venous bloodOrdered By: Buzz Alford on 08-26-2024 CO2 [Moles/Vol] 21.4 mmol/L 21.0-32.0 [facility] Chloride assayOrdered By: Mehul Alford on 08-26-2024 Chloride [Moles/Vol] 100 mmol/L 98-108 [facility] Estimation of creatinine sergey aranceOrdered By: Buzz Alford on 08-26-2024 Estimated Creatinine Clearance Calc 50.49 ml/min 50-250 [facility] GFR/1.73 sq M.predicted rashad g non-blacks MDRD (S/P/Bld) [Vol rate/Area]Ordered By: Buzz Alford on 08-26-2024 Estimated GFR (MDRD) Non-Af Amer [address] [facility] Comment on above: mL/min/1.73m2 CKD-EP I Creatinine Equation (2020) Glomerular filtration rate ( GFR) estimation/1.73 sq m using serum, plasma, or whole bOrdered By: Buzz Alford on 08-26-2024 GFR/1.73 sq M.predicted among non-blacks MDRD (S/P/Bld) [Vol rate/Area] 89 mL/min/{1.73_m2} >60 [facility] Comment on above: mL/min/1.73m2 CKD-EP I Creatinine Equation (2020) Potassium (Unsp spec) [Mass/ Vol]Ordered By: Buzz Alford on 08-26-2024 Potassium [Moles/Vol] 4.4 mmol/L 3.3-5.1 [facility] Potassium measurement (mass/ volume)Ordered By: Buzz Alford on 08-26-2024 Potassium (Unsp spec) [Mass/Vol] 4.4 mmol/L 3.3-5.1 [facility] Serum creatinine measurement (mass/volume)Ordered By: Buzz Alford on 08-26-2024 Creatinine [Mass/Vol] 0.68 mg/dL Low 0.70-1.20 [facility] Serum glucose measurement (m ass/volume)Ordered By: Buzz Alford on 08-26-2024 Glucose [Mass/Vol] 121 mg/dL High 70-99 [facility] Serum or plasma calcium agnieszka urement (mass/volume)Ordered By: Buzz Alford on 08-26-2024 Calcium [Mass/Vol] 8.9 mg/dL 7.6-11.0 [facility] Serum or plasma urea nitroge n measurement (mass/volume)Ordered By: Buzz Alford on 08-26-2024 Urea nitrogen [Mass/Vol] 14 mg/dL 4-19 [facility] Sodium levelOrdered By: Juan Alford on 08-26-2024 Sodium [Moles/Vol] 135 mmol/L 133-145 [facility] Absolute lymphocyte countOrd ered By: Eveline Ruelas on 08-25-2024 Lymphocytes Auto (Unsp spec) [#/Vol] 1.31 10*3/uL 0.83-4.51 [facility] Absolute neutrophil countOrd ered By: Eveline Ruelas on 08-25-2024 Neutrophils (Bld) [#/Vol] 11.0 10*3/uL High 2.0-7.7 [facility] Anion gap in Serum or Plasma Ordered By: Eveline Ruelas on 08-25-2024 Anion gap [Moles/Vol] 16 mmol/L High 5-15 [facility] Automated lymphocyte count a s percentage of total leukocytesOrdered By: Eveline Ruelas on 08-25-2024 Lymphocytes/100 WBC Auto (Unsp spec) 9.9 % Low 19-41 [facility] BUN/creatinine ratioOrdered By: Eveline Ruelas on 08-25-2024 Urea nitrogen/Creatinine [Mass ratio] 21.2 mg/mg High 10-20 [facility] Basic Metabolic Profile (BMP )on 08-25-2024 BUN/CRE 21.[address] [facility] Comment on above: Performed By: #### L 100.0100, L500.2500 #### [facility] [place], [address] Calcium [Mass/Vol] 8.8 mg/dL Normal 7.6-11.0 [facility] Comment on above: Performed By: #### L 100.0100, L500.2500 #### [facility] [address] [place], [address] Chloride [Moles/Vol] 99 mmol/L Normal 98-108 [facility] Comment on above: Performed By: #### L 100.0100, L500.2500 #### [facility] [address] [place], [address] CO2 [Moles/Vol] 19.9 mmol/L Low 21.0-32.0 [facility] Comment on above: Performed By: #### L 100.0100, L500.2500 #### [facility] [address] [place], [address] Creatinine [Mass/Vol] 0.65 mg/dL Low 0.70-1.20 [facility] Comment on above: Performed By: #### L 100.0100, L500.2500 #### [facility] [address] [place], [address] ECRCL 52.28 ml/min Normal 50-250 [facility] Comment on above: Performed By: #### L 100.0100, L500.2500 #### [facility] [address] [place], [address] GAP 16 High 5-15 [facility] Comment on above: Performed By: #### L 100.0100, L500.2500 #### [facility] [address] [place], [address] GFR/1.73 sq M.predicted among non-blacks MDRD (S/P/Bld) [Vol rate/Area] 90 mL/min/{1.73_m2} Normal >60 [facility] Comment on above: Result Comment: mL/m in/1.73m2 CKD-EPI Creatinine Equation (2020) Performed By: #### L 100.0100, L500.2500 #### [facility] [address] [place], [address] Glucose [Mass/Vol] 120 mg/dL High 70-99 [facility] Comment on above: Performed By: #### L 100.0100, L500.2500 #### [facility] [address] [place], [address] Potassium [Moles/Vol] 3.3 mmol/L Normal 3.3-5.1 [facility] [place] Comment on above: Performed By: #### L 100.0100, L500.2500 #### [facility] [address] [place], [address] Sodium [Moles/Vol] 134 mmol/L Normal 133-145 [facility] Comment on above: Performed By: #### L 100.0100, L500.2500 #### [facility] [address] [place], [address] Urea nitrogen [Mass/Vol] 14 mg/dL Normal 4-19 [facility] Comment on above: Performed By: #### L 100.0100, L500.2500 #### [facility] [address] [place], [address] Basophil percentageOrdered B y: Eveline Ruelas on 08-25-2024 Basophils/100 WBC (Bld) 0.5 % 0-1 [facility] Bilirubin Test strip Ql (U)O rdered By: Eveline Ruelas on 08-25-2024 Bilirubin Ql (U) Negative Negative [facility] CBC W/Diff, Automatedon 08-05 Absolute Lymph 1.31 X10 3/uL Normal 0.83-4.51 [facility] Comment on above: Performed By: #### L 100.0100, L500.2500 #### [facility] [address] [place], [address] Absolute Neut 11.0 X10 3/uL High 2.0-7.7 [facility] Comment on above: Performed By: #### L 100.0100, L500.2500 #### [facility] [address] [place], [address] Basophils/100 WBC (Bld) 0.5 % Normal 0-1 [facility] Comment on above: Performed By: #### L 100.0100, L500.2500 #### [facility] [address] [place], [address] Eosinophils/100 WBC (Bld) 0.2 % Normal 0-5 [facility] Comment on above: Performed By: #### L 100.0100, L500.2500 #### [facility] [address] [place], [address] Erythrocyte distribution width (RBC) [Ratio] 15.3 % High 11.6-14.6 [facility] Comment on above: Performed By: #### L 100.0100, L500.2500 #### [facility] [address] [place], [address] Hematocrit (Bld) [Volume fraction] 34.8 % Low 37-47 [facility] Comment on above: Performed By: #### L 100.0100, L500.2500 #### [facility] [address] [place], [address] Hemoglobin (Bld) [Mass/Vol] 11.9 g/dL Low 12.0-15.0 [facility] Comment on above: Performed By: #### L 100.0100, L500.2500 #### [facility] [address] [place], [address] IG% 0.500 Normal 0.0-0.9 [facility] Comment on above: Result Comment: IG% - Immature Granulocytes (promyelocytes, myelocytes and metamyelocytes) > 1% indicates that a LEFT SHIFT is Present. Performed By: #### L 100.0100, L500.2500 #### [facility] [address] [place], [address] Lymphocytes/100 WBC (Bld) 9.9 % Low 19-41 [facility] Comment on above: Performed By: #### L 100.0100, L500.2500 #### [facility] [address] [place], [address] MCH (RBC) [Entitic mass] 29.7 pg Normal 27.0-32.0 [facility] Comment on above: Performed By: #### L 100.0100, L500.2500 #### [facility] [address] [place], [address] MCHC (RBC) [Mass/Vol] 34.2 g/dL Normal 32-36 [facility] Comment on above: Performed By: #### L 100.0100, L500.2500 #### [facility] [address] [place], [address] MCV (RBC) [Entitic vol] 86.8 fL Normal 81-99 [facility] Comment on above: Performed By: #### L 100.0100, L500.2500 #### [facility] [address] [place], [address] Monocytes/100 WBC (Bld) 5.5 % Normal 0-10 [facility] Comment on above: Performed By: #### L 100.0100, L500.2500 #### [facility] [address] [place], [address] Neutrophils/100 WBC (Bld) 83.4 % High 47-70 [facility] Comment on above: Performed By: #### L 100.0100, L500.2500 #### [facility] [address] [place], [address] Nucleated RBC (Bld) [#/Vol] 0 10*3/uL Normal 0-5 [facility] Comment on above: Performed By: #### L 100.0100, L500.2500 #### [facility] [address] [place], [address] Platelet mean volume (Bld) [Entitic vol] 9.5 fL Normal 6.2-12.0 [facility] Comment on above: Performed By: #### L 100.0100, L500.2500 #### [facility] [address] [place], [address] Platelets (Bld) [#/Vol] 358 10*3/uL Normal 150-450 [facility] Comment on above: Performed By: #### L 100.0100, L500.2500 #### [facility] [address] [place], [address] RBC (Bld) [#/Vol] 4.01 10*6/uL Low 4.2-5.4 [facility] Comment on above: Performed By: #### L 100.0100, L500.2500 #### [facility] [address] [place], [address] RDW SD 48.9 fl High 35.1-43.9 [facility] Comment on above: Performed By: #### L 100.0100, L500.2500 #### [facility] [address] [place], [address] WBC (Bld) [#/Vol] 13.2 10*3/uL High 4.4-11.0 [facility] Comment on above: Performed By: #### L 100.0100, L500.2500 #### [facility] [address] [place], [address] Carbon dioxide, total [Moles /volume] in Central venous bloodOrdered By: Eveline Ruelas on 08-25-2024 CO2 [Moles/Vol] 19.9 mmol/L Low 21.0-32.0 [facility] Chloride assayOrdered By: Lorenzo Ruelas on 08-25-2024 Chloride [Moles/Vol] 99 mmol/L 98-108 [facility] Emergency Department Summary on 08-25-2024 Emergency Department Summary [facility] Medical Records Department [address] [place] [address] Emergency Department Summary 08/25/24 MR#: [id number] Acct: [id number] Name: DANETTE BISHOP Rep #: [id number] : 1945 79 From: Juan Nieves MD PCP: Dr. Tami Chang MD Status:ADM JASPREET Location: [place] 138050-1 HPI History of Present Illness Chief Complaint: Back Narrative Narrative: 79-year-old female with history of lumbar surgery x 2, metastatic breast cancer to liver woke up with bilateral lumbar pain and muscle spasms. She was able to get up and get to her recliner and took a hydrocodone but then had increased muscle spasms and was unable to get up. Her called the squad to bring her in. She has a history of 2 lumbar surgeries with the most recent being a discectomy 2020 at [facility]. She normally manages her pain with Tylenol or hydrocodone for breakthrough pain. She denies fall or injury. She has no pain radiating into the legs. No weakness or numbness or tingling or saddle anesthesia or bladder bowel incontinence. No fever or urinary symptoms. [facility] Medical History (Updated 08/27/24 @ 13:[address] Jin Rosales MD) Breast cancer Liver cancer Wears glasses Post-menopausal Cancer Depression Anxiety Alcohol use Thyroid disease Anemia Easy bruising Excessive bleeding Back pain TIA (transient ischemic attack) History of hiatal hernia History of ulceration History of IBS Gastric reflux Former smoker Shortness of breath on exertion History of echocardiogram Hypertension History of irregular heartbeat History of rheumatic fever LUQ pain 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 Epigastric abdominal pain Liver metastasis 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 Wears dentures Sleep apnea History of TIA (transient ischemic attack) History of thyroid disease Back pain Neck pain Severe headache Stomach ulcer History of cancer Arthritis History of hypertension Medical History no medical history Home Medications ???Medication ???Instructions ???Recorded ???Last Taken ???Type fluoxetine 40 mg capsule 40 mg PO DAILY 06/16/17 08/25/24 H istory lisinopril 20 mg tablet 20 mg PO DAILY 09/25/20 08/25/24 H istory levothyroxine 125 mcg tablet 112 mcg PO DAILY 30 days #27 tabs 06/11/21 08/25/24 History hydrocodone-acetaminophen 5-325mg 1 tab PO Q6H PRN pain 07/16/22 History 5mg-325mg alprazolam 0.5 mg tablet 0.5 mg PO DAILY PRN anxiety Unknown History letrozole 2.5 mg tablet 2.5 mg PO DAILY 02/16/24 08/25/24 History amlodipine 5 mg tablet 5 mg PO QHS 04/30/24 08/24/24 Hist ory clopidogrel 75 mg tablet 75 mg PO DAILY 04/30/24 08/25/24 H istory esomeprazole magnesium 20 mg 20 mg PO DAILY 04/30/24 08/25/24 H istory capsule,delayed release (Nexium) liothyronine 5 mcg tablet 5 mcg PO DAILY 05/21/24 08/25/24 H istory zolpidem 10 mg tablet 10 mg PO QHS 05/21/24 08/24/24 His tory acetaminophen 650 mg 650 mg PO PRN ARTHRITIS 08/25/24 0 08/24/24 History tablet,extended release cholecalciferol (vitamin D3) 50 50 mcg PO DAILY 08/25/24 08/24/24 History mcg (2,000 unit) capsule ferrous sulfate 325 mg (65 mg 325 mg PO DAILY 08/25/24 08/24/24 History iron) tablet (Feosol) multivitamin (Daily Multi-Vitamin 1 tab PO DAILY 08/25/24 08/24/24 History tablet) psyllium husk 3.4 gram/5.4 gram 1 tsp PO DAILY 08/25/24 08/24/24 H istory oral powder (Metamucil) Allergy/AdvReac Type Severity Reaction Status Date / Time shellfish derived Allergy Severe throat Verified 08/25/24 13:29 swelling adhesive tape AdvReac Rash Verified 08/25/24 13:29 Family History Mother Colon cancer passed from recurrence Thyroid disorder Father Hypertension CVA (cerebral vascular accident) Sister Breast cancer, Onset Age: 87 Aunt Colon cancer paternal Surgical History History of lumpectomy History of back surgery History of thyroid surgery Surgical History no surgical history Social History household members: spouse Smoking Status: Former smoker how long ago did patient quit smoking: >50 years ago; off and on for 2 years, socially only alcohol intake: current alcohol intake frequency: 0-2 drinks per day Alcohol type: wine details: socially substance use type: does not use additional social history: denies vaping, denies marijuana, denies edibles, denies aspirin and ibuprofen use ROS ROS ED ROS Narrative Constitutional: Negative for fever, chills, malaise. CVS: Negative for chest pain. Respiratory: Negative for shortness of breath. GI: Negative for abdominal pain, nausea, (more content not included)... Normal [facility] Eosinophil percentageOrdered By: Eveline Ruelas on 08-25-2024 Eosinophils/100 WBC (Bld) 0.2 % 0-5 [facility] Epithelial cells.squamous LM Ql (Urine sed)Ordered By: Eveline Ruelas on 08-25-2024 Epithelial cells.squamous LM.HPF (Urine sed) [#/Area] 0 /[HPF] 5-10 [facility] Erythrocyte distribution wid th ratioOrdered By: Eveline Ruelas on 08-25-2024 Erythrocyte distribution width (RBC) [Ratio] 15.3 % High 11.6-14.6 [facility] Erythrocyte distribution wid th standard deviationOrdered By: Eveline Ruelas on 08-25-2024 Erythrocyte distribution width (RBC) [Entitic vol] 48.9 fL High 35.1-43.9 [facility] Estimation of creatinine sergey aranceOrdered By: Eveline Ruelas on 08-25-2024 Estimated Creatinine Clearance Calc 52.28 ml/min 50-250 [facility] GFR/1.73 sq M.predicted rashad g non-blacks MDRD (S/P/Bld) [Vol rate/Area]Ordered By: Eveline Ruelas on 08-25-2024 Estimated GFR (MDRD) Non-Af Amer 90 >60 [facility] Comment on above: mL/min/1.73m2 CKD-EP I Creatinine Equation (2020) Glucose Ql (U)Ordered By: Lorenzo Ruelas on 08-25-2024 Urine Glucose (UA) Normal mg/dl Normal [facility] H AND P Exam - [facility] 08-25-2024 H&P Exam - Hospitalist [facility] Medical Records Department [address] [place] [address] H P Exam - Hospitalist 08/25/24 1623 MR#: [id number] Acct: [id number] Name: DANETTE BISHOP Rep #: [id number] : 1945 79 From: Buzz Alford DO PCP: Dr. Tami Chang MD Status:ADM JASPREET Location: [place] [address] HPI - General General Date of Admission: 08/25/24 Date of Service: 08/25/24 Chief Complaint: Acute on chronic back pain with spasms and inability to ambulate HPI Narrative DANETTE BISHOP, is a 79 F who presented to [facility] ED on 08/23/2024 with acute on chronic low back pain with spasms and inability to ambulate. Patient has history of chronic low back pain with L4-5 lumbar fusion done at the [facility] in 2019 and then discectomy done there in 2020. Medical history is also significant for metastatic breast cancer; she follows with Dr. Centeno for this and has been stable on trastuzumab and letrozole recently. Around midmorning today patient developed significant bilateral low back muscle spasms. She notes that since her low back procedure she has had chronic low back pain that has generally been tolerable with pain medication. However, she has never had muscle spasms like this before. She was walking at the time and had more difficulty moving the right leg due to pain than the left leg. When she got home she had even worse pain and was essentially unable to move, so she came in for further evaluation. In the ED she was mildly tachycardic to the 100s and mildly hypertensive to the 160s over 80s but otherwise stable on room air. Labs showed WBC count 13, were otherwise fairly benign. CT lumbar spine without contrast showed no acute lumbar fracture and known multilevel degenerative central and neural foraminal stenosis. Was also noted on CT scan to have a distended urinary bladder, and Queen catheter was placed with 900 cc of urine output. Given the intractable back pain with urinary retention and inability to ambulate, hospitalist was contacted for admission. I saw the patient at bedside in the ED, was present. Notably patient's Dayanara and her daughter Camila Vela work on staff at the hospital here. Patient was laying back in bed when I saw her and was conversing normally for me. She reported only minimal pain when laying still but had continued to have moderate to severe low back pain with muscle spasms with any movement. She noted that she was afraid to move at this point. She otherwise denied any fevers or chills. Denied any other acute concerns at this time. [facility] Medical History (Updated 08/25/24 @ 18:[address] Buzz Alford, DO) Breast cancer Liver cancer Wears glasses Post-menopausal Cancer Depression Anxiety Alcohol use Thyroid disease Anemia Easy bruising Excessive bleeding Back pain TIA (transient ischemic attack) History of hiatal hernia History of ulceration History of IBS Gastric reflux Former smoker Shortness of breath on exertion History of echocardiogram Hypertension History of irregular heartbeat History of rheumatic fever LUQ pain 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 Epigastric abdominal pain Liver metastasis 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 Wears dentures Sleep apnea History of TIA (transient ischemic attack) History of thyroid disease Back pain Neck pain Severe headache Stomach ulcer History of cancer Arthritis History of hypertension Medical History no medical history Home Medications ???Medication ???Instructions ???Recorded ???Last Taken ???Type fluoxetine 40 mg capsule 40 mg PO DAILY 06/16/17 08/25/24 H istory lisinopril 20 mg tablet 20 mg PO DAILY 09/25/20 08/25/24 H istory levothyroxine 125 mcg tablet 112 mcg PO DAILY 30 days #27 tabs 06/11/21 08/25/24 History hydrocodone-acetaminophen 5-325mg 1 tab PO Q6H PRN pain 07/16/22 History 5mg-325mg alprazolam 0.5 mg tablet 0.5 mg PO DAILY PRN anxiety Unknown History letrozole 2.5 mg tablet 2.5 mg PO DAILY 02/16/24 08/25/24 History amlodipine 5 mg tablet 5 mg PO QHS 04/30/24 08/24/24 Hist ory clopidogrel 75 mg tablet 75 mg PO DAILY 04/30/24 08/25/24 H istory esomeprazole magnesium 20 mg 20 mg PO DAILY 04/30/24 08/25/24 H istory capsule,delayed release (Nexium) liothyronine 5 mcg tablet 5 mcg PO DAILY 05/21/24 08/25/24 H istory zolpidem 10 mg tablet 10 mg PO QHS 05/21/24 08/24/24 His tory acetaminophen 650 mg 650 mg PO PRN ARTHRITIS 08/25/24 0 08/24/24 History tablet,extended release cholecalciferol (vitamin D3) 50 50 mcg PO DAILY 08/25/24 08/24/24 History mcg (2,000 unit) capsule ferrous sulfate 325 mg (65 mg 325 mg PO DAILY 08/25/24 08/24/24 History iron) tablet (Feosol) multivitamin (Daily Multi-Vitamin 1 tab PO DAILY 08/25/24 0 (more content not included)... Normal [facility] Hematocrit Auto (Bld) [Volum e fraction]Ordered By: Eveline Ruelas on 08-25-2024 Hematocrit (Bld) [Volume fraction] 34.8 % Low 37-47 [facility] Hemoglobin measurementOrdere d By: Eveline Ruelas on 08-25-2024 Hemoglobin (Bld) [Mass/Vol] 11.9 g/dL Low 12.0-15.0 [facility] Immature granulocytes/100 WB C Auto (Bld)Ordered By: Eveline Ruelas on 08-25-2024 Immature granulocytes/100 WBC (Bld) 0.500 % 0.0-0.9 [facility] Comment on above: IG% - Immature Granu locytes (promyelocytes, myelocytes and metamyelocytes) > 1% indicates that a LEFT SHIFT is Present. Ketones Test strip Ql (U)Ord ered By: Eveline Ruelas on 08-25-2024 Ketones Ql (U) 5 mg/dl High Negative [facility] Lymphocytes Auto (Unsp spec) [#/Vol]Ordered By: Eveline Ruelas on 08-25-2024 Lymphocytes (Bld) [#/Vol] 1.31 10*3/uL 0.83-4.51 [facility] Lymphocytes/100 WBC Auto (Un sp spec)Ordered By: Eveline Ruelas on 08-25-2024 Lymphocytes/100 WBC (Bld) 9.9 % Low 19-41 [facility] MCV (mean corpuscular volume ) determinationOrdered By: Eveline Ruelas on 08-25-2024 MCV (RBC) [Entitic vol] 86.8 fL 81-99 [facility] Mean corpuscular hemoglobin (MCH) determinationOrdered By: Eveline Ruelas on 08-25-2024 MCH (RBC) [Entitic mass] 29.7 pg 27.0-32.0 [facility] Mean corpuscular hemoglobin concentration (MCHC) determinationOrdered By: Eveline Ruelas on 08-25-2024 MCHC (RBC) [Mass/Vol] 34.2 g/dL 32-36 [facility] Mean platelet volume determi nationOrdered By: Eveline Ruelas on 08-25-2024 Platelet mean volume (Bld) [Entitic vol] 9.5 fL 6.2-12.0 [facility] Microscopic analysis of urin e for red blood cells (RBC)Ordered By: Eveline Ruelas on 08-25-2024 Microscopic analysis of urine for red blood cells (RBC) 0-5 SEEN /hpf 0-5 [facility] Urine RBC 0-5 SEEN /hpf 0-5 [facility] Monocyte percentageOrdered B y: Eveline Ruelas on 08-25-2024 Monocytes/100 WBC (Bld) 5.5 % 0-10 [facility] Mucus LM Ql (Urine sed)Order ed By: Eveline Ruelas on 08-25-2024 Mucus Ql (Urine sed) 0 SEEN /hpf [facility] Neutrophil percentageOrdered By: Eveline Ruelas on 08-25-2024 Neutrophils/100 WBC (Bld) 83.4 % High 47-70 [facility] Nitrite Test strip Ql (U)Ord ered By: Eveline Ruelas on 08-25-2024 Nitrite Ql (U) Negative Negative [facility] Nucleated red blood cell per centageOrdered By: Eveline Ruelas on 08-25-2024 Nucleated RBC/100 WBC (Bld) [Ratio] 0 % 0-5 [facility] Platelet countOrdered By: Lorenzo Ruelas on 08-25-2024 Platelets (Bld) [#/Vol] 358 10*3/uL 150-450 [facility] Potassium (Unsp spec) [Mass/ Vol]Ordered By: Eveline Ruelas on 08-25-2024 Potassium [Moles/Vol] 3.3 mmol/L 3.3-5.1 [facility] Protein Test strip Ql (U)Ord ered By: Eveline Ruelas on 08-25-2024 Protein Ql (U) Negative Negative [facility] RBC Auto (Bld) [#/Vol]Ordere d By: Eveline Ruelas on 08-25-2024 RBC (Bld) [#/Vol] 4.01 10*6/uL Low 4.2-5.4 [facility] Serum creatinine measurement (mass/volume)Ordered By: Eveline Ruelas on 08-25-2024 Creatinine [Mass/Vol] 0.65 mg/dL Low 0.70-1.20 [facility] Serum glucose measurement (m ass/volume)Ordered By: Eveline Ruelas on 08-25-2024 Glucose [Mass/Vol] 120 mg/dL High 70-99 [facility] Serum or plasma calcium agnieszka urement (mass/volume)Ordered By: Eveline Ruelas on 08-25-2024 Calcium [Mass/Vol] 8.8 mg/dL 7.6-11.0 [facility] Serum or plasma urea nitroge n measurement (mass/volume)Ordered By: Eveline Ruelas on 08-25-2024 Urea nitrogen [Mass/Vol] 14 mg/dL 4-19 [facility] Sodium levelOrdered By: Eveline Ruelas on 08-25-2024 Sodium [Moles/Vol] 134 mmol/L 133-145 [facility] Spine Lumbar without Contras ton 08-25-2024 Spine Lumbar without Contrast [facility] Imaging Services [address] [place] [address] [id number] Spine Lumbar without Contrast MR#: [id number] Acct: [id number] Name: DANETTE BISHOP Rep #: [id number] : 1945 F 79 From: Chaya Teran nd, MD PCP: Dr. Tami Chang MD Status: REG ER Study: Spine Lumbar without Contrast Date of Exam: Exam# [id number] Ordering Dr: Eveline Ruelas PROCEDURE: SPINE LUMBAR WITHOUT CONTRAST 08/25/2024 REASON FOR EXAM: 79-year-old female, severe back pain/spasms today, history of breast and liver cancer. Unable to ambulate this morning. TECHNIQUE: Lumbar spine CT without contrast. Coronal and Sagittal reconstruction series were provided. One or more dose reduction techniques were used (e.g., Automated exposure control, adjustment of the mA and/or kV according to patient size, use of iterative reconstruction technique COMPARISON: MRI L-spine 11/12/2019. RADIATION DOSE SUMMARY: CTDlvol: 21 mGy DLP: 703 mGycm FINDINGS: Vertebrae: Diffuse osseous demineralization. No acute fracture identified or traumatic listhesis. Prior posterior spinal fixation and instrumentation of the left L4-5 vertebral bodies with interbody disc spacer. Alignment: Trace anterolisthesis of L4 onto L5. Moderate multilevel degenerative disc disease, greatest at T12-L1. Multilevel posterior disc osteophytes and facet hypertrophy resulting in moderate central canal stenosis, greatest at L2-3, and at least moderate bilateral neural foraminal stenosis, greatest at 2 L1-2. Sacrum: The SI joints are maintained. Moderate retained fecal material throughout the visualized colon. The urinary bladder is distended. Calcific plaque of the aortoiliac vessels. CT/Spine Lumbar without Contrast IMPRESSION: 1. No acute lumbar fracture. 2. 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 Reading Location: [facility] CC: Dr. Tami Chang MD; [facility] Liaison: Signed Normal [facility] Squamous epithelial cells de tection in urine sediment by light microscopyOrdered By: Eveline Ruelas on 08-25-2024 Epithelial cells.squamous LM Ql (Urine sed) 0 SEEN /hpf 5-10 [facility] Urinalysis, Completeon 08-25 WBC 0-5 SEEN Normal 0-5 [facility] Comment on above: Order Comment: FRIDA CTOR TO SPECIFY Performed By: #### L 400.0001 ####[facility] [id number] [place], [address] RBC 0-5 SEEN Normal 0-5 [facility] Comment on above: Order Comment: FRIDA CTOR TO SPECIFY Performed By: #### L 400.0001 ####[facility] [id number] [place], [address] BACTERIA 0 SEEN Normal None Seen [facility] Comment on above: Order Comment: FRIDA CTOR TO SPECIFY Performed By: #### L 400.0001 ####[facility] [address] [place], [address] EPI,SQUAMOUS 0 SEEN Normal 5-10 [facility] Comment on above: Order Comment: FRIDA CTOR TO SPECIFY Performed By: #### L 400.0001 ####[facility] [address] [place], [address] Mucus Ql (Urine sed) 0 SEEN Normal [facility] Comment on above: Order Comment: FRIDA CTOR TO SPECIFY Performed By: #### L 400.0001 ####[facility] [address] [place], [address] Urine blood detectionOrdered By: Eveline Ruelas on 08-25-2024 Urine Occult Blood Negative Negative [facility] Urine clarityOrdered By: Letty Ruelas on 08-25-2024 Clarity (U) Clear Clear [facility] Urine color determinationOrd ered By: Eveline Ruelas on 08-25-2024 Color (U) Yellow Yellow [facility] Urine glucose detectionOrder ed By: Eveline Ruelas on 08-25-2024 Glucose Ql (U) Normal mg/dl Normal [facility] Urine leukocyte esterase det ection by dipstickOrdered By: Eveline Ruelas on 08-25-2024 Leukocyte esterase Test strip Ql (U) Negative Negative [facility] Urine pHOrdered By: Eveline ames on 08-25-2024 pH (U) 8.0 [pH] 5.0 - 8.0 [facility] Urine sediment bacteria coun t by microscopy (number/high power field)Ordered By: Eveline Ruelas on 08-25-2024 Bacteria LM.HPF (Urine sed) [#/Area] 0 /[HPF] None Seen [facility] Urine specific gravity measu rementOrdered By: Eveline Ruelas on 08-25-2024 Specific gravity (U) [Rel density] 1.010 1.002-1.[address] [facility] Urine urobilinogen measureme ntOrdered By: Eveline Ruelas on 08-25-2024 Urobilinogen Ql (U) Normal mg/dl Normal [facility] Urobilinogen Ql (U)Ordered B y: Eveline Ruelas on 08-25-2024 Urine Urobilinogen Normal mg/dl Normal [facility] White blood cell (WBC) count Ordered By: Eveline Ruelas on 08-25-2024 WBC (Bld) [#/Vol] 13.2 10*3/uL High 4.4-11.0 [facility] White blood cell countOrdere d By: Eveline Ruelas on 08-25-2024 Urine WBC 0-5 SEEN /hpf 0-5 [facility] White blood cell count 0-5 SEEN /hpf 0-5 [facility] CBC W Auto Differential pane l (Bld)on 08-21-2024 Basophils (Bld) [#/Vol] 0.07 10*3/uL [facility] Basophils/100 WBC (Bld) 1.2 % [facility] Differential cell count method Nom (Bld) Auto [facility] Eosinophils (Bld) [#/Vol] 0.13 10*3/uL [facility] Eosinophils/100 WBC (Bld) 2.2 % [facility] Erythrocyte distribution width (RBC) [Ratio] 15.8 % High 11.5 - 15.0 % [facility] Hematocrit (Bld) [Volume fraction] 34.8 % Low 36.0 - 46.0 % [facility] Hemoglobin (Bld) [Mass/Vol] 11.8 g/dL 11.5 - 15.5 g/dL [facility] Immature granulocytes (Bld) [#/Vol] NINF [facility] Immature granulocytes/100 WBC (Bld) 0.3 % [facility] Interpretation and review of laboratory results Abnormal [facility] Lymphocytes (Bld) [#/Vol] 1.58 10*3/uL [facility] Lymphocytes/100 WBC (Bld) 26.9 % [facility] MCH (RBC) [Entitic mass] 30 pg 26.0 - 34.0 pg [facility] MCHC (RBC) [Mass/Vol] 33.9 g/dL 30.5 - 36.0 g/dL [facility] MCV (RBC) [Entitic vol] 88.5 fL 80.0 - 100.0 fL [facility] Monocytes (Bld) [#/Vol] 0.4 10*3/uL [facility] Monocytes/100 WBC (Bld) 6.8 % [facility] Neutrophils (Bld) [#/Vol] 3.67 10*3/uL [facility] Neutrophils/100 WBC (Bld) 62.6 % [facility] Nucleated RBC (Bld) [#/Vol] [facility] Nucleated RBC/100 WBC (Bld) [Ratio] 0 % /100 WBC [facility] Platelet mean volume (Bld) [Entitic vol] 9.1 fL 9.0 - 12.7 fL [facility] Platelets (Bld) [#/Vol] 332 10*3/uL [facility] RBC (Bld) [#/Vol] 3.93 10*6/uL 3.90 - 5.20 m/uL [facility] WBC (Bld) [#/Vol] 5.87 10*3/uL [facility] Basophils (Bld) [#/Vol] 0.07 10*3/uL Normal <0.11 [facility] Comment on above: Order Comment: Speci men Type: BLOOD SPECIMENOrdering Facility: [facility] Address: [address] [place] [address] Performed By: #### 5 7021-8 ####[facility] JOI DYEKALONARAFFY [id number] [place] [address] [place] Basophils/100 WBC (Bld) 1.2 % Normal [facility] Comment on above: Order Comment: Speci men Type: BLOOD SPECIMENOrdering Facility: [facility] Address: [address] [place] [address] Performed By: #### 5 7021-8 ####[facility] [id number] [place] [address] [place] Differential cell count method Nom (Bld) Auto Normal [facility] Comment on above: Order Comment: Speci men Type: BLOOD SPECIMENOrdering Facility: [facility] Address: [address] [place] [address] Performed By: #### 5 7021-8 ####[facility] [id number] [place] [address] [place] Eosinophils (Bld) [#/Vol] 0.13 10*3/uL Normal <0.46 [facility] Comment on above: Order Comment: Speci men Type: BLOOD SPECIMENOrdering Facility: [facility] Address: [address] [place] [address] Performed By: #### 5 7021-8 ####[facility]INCLIA [id number] [place] [address] [place] Eosinophils/100 WBC (Bld) 2.2 % Normal [facility] Comment on above: Order Comment: Speci men Type: BLOOD SPECIMENOrdering Facility: [facility] Address: [address] [place] [address] Performed By: #### 5 7021-8 ####[facility]INCLIA [id number] [place] [address] [place] Erythrocyte distribution width (RBC) [Ratio] 15.8 % High 11.5-15.0 [facility] Comment on above: Order Comment: Speci men Type: BLOOD SPECIMENOrdering Facility: [facility] Address: [address] [place] [address] Performed By: #### 5 7021-8 ####[facility] MILLWNCLIA [id number] [place] [address] [place] Hematocrit (Bld) [Volume fraction] 34.8 % Low 36.0-46.0 [facility] Comment on above: Order Comment: Speci men Type: BLOOD SPECIMENOrdering Facility: [facility] Address: [address] [place] [address] Performed By: #### 5 7021-8 ####[facility]INCLIA [id number] [place] [address] [place] Hemoglobin (Bld) [Mass/Vol] 11.8 g/dL Normal 11.5-15.5 [facility] Comment on above: Order Comment: Speci men Type: BLOOD SPECIMENOrdering Facility: [facility] Address: [address] [place] [address] Performed By: #### 5 7021-8 ####[facility]TONLIA [id number] [place] [address] [place] Immature granulocytes (Bld) [#/Vol] 10*3/uL Normal <0.10 [facility] Comment on above: Order Comment: Speci men Type: BLOOD SPECIMENOrdering Facility: [facility] Address: [address] [place] [address] Performed By: #### 5 7021-8 ####[facility]ENTERWNCLIA [id number] [place] [address] [place] Immature granulocytes/100 WBC (Bld) 0.3 % Normal [facility] Comment on above: Order Comment: Speci men Type: BLOOD SPECIMENOrdering Facility: [facility] Address: [address] [place] [address] Performed By: #### 5 7021-8 ####[facility]TONLIA [id number] [place] [address] [place] Lymphocytes (Bld) [#/Vol] 1.58 10*3/uL Normal 1.00-4.00 [facility] Comment on above: Order Comment: Speci men Type: BLOOD SPECIMENOrdering Facility: [facility] Address: [address] [place] [address] Performed By: #### 5 7021-8 ####[facility] [id number] [place] [address] [place] Lymphocytes/100 WBC (Bld) 26.9 % Normal [facility] Comment on above: Order Comment: Speci men Type: BLOOD SPECIMENOrdering Facility: [facility] Address: [address] [place] [address] Performed By: #### 5 7021-8 ####[facility]AMINCJane [id number] [place] [address] [place] MCH (RBC) [Entitic mass] 30.0 pg Normal 26.0-34.0 [facility] Comment on above: Order Comment: Speci men Type: BLOOD SPECIMENOrdering Facility: [facility] Address: [address] [place] [address] Performed By: #### 5 7021-8 ####[facility]INCLI [id number] [place] [address] [place] MCHC (RBC) [Mass/Vol] 33.9 g/dL Normal 30.5-36.0 [facility] Comment on above: Order Comment: Speci men Type: BLOOD SPECIMENOrdering Facility: [facility] Address: [address] [place] [address] Performed By: #### 5 7021-8 ####[facility]AMINCLIA [id number] [place] [address] [place] MCV (RBC) [Entitic vol] 88.5 fL Normal 80.0-100.0 [facility] Comment on above: Order Comment: Speci men Type: BLOOD SPECIMENOrdering Facility: [facility] Address: [address] [place] [address] Performed By: #### 5 7021-8 ####[facility] [id number] [place] [address] [place] Monocytes (Bld) [#/Vol] 0.40 10*3/uL Normal <0.87 [facility] Comment on above: Order Comment: Speci men Type: BLOOD SPECIMENOrdering Facility: [facility] Address: [address] [place] [address] Performed By: #### 5 7021-8 ####[facility] [id number] [place] [address] [place] Monocytes/100 WBC (Bld) 6.8 % Normal [facility] Comment on above: Order Comment: Speci men Type: BLOOD SPECIMENOrdering Facility: [facility] Address: [address] [place] [address] Performed By: #### 5 7021-8 ####[facility] [id number] [place] [address] [place] Neutrophils (Bld) [#/Vol] 3.67 10*3/uL Normal 1.45-7.50 [facility] Comment on above: Order Comment: Speci men Type: BLOOD SPECIMENOrdering Facility: [facility] Address: [address] [place] [address] Performed By: #### 5 7021-8 ####[facility] [id number] [place] [address] [place] Neutrophils/100 WBC (Bld) 62.6 % Normal [facility] Comment on above: Order Comment: Speci men Type: BLOOD SPECIMENOrdering Facility: [facility] Address: [address] [place] [address] Performed By: #### 5 7021-8 ####[facility]AMINCLIA [id number] [place] [address] [place] Nucleated RBC (Bld) [#/Vol] 10*3/uL Normal <0.01 [facility] Comment on above: Order Comment: Speci men Type: BLOOD SPECIMENOrdering Facility: [facility] Address: [address] [place] [address] Performed By: #### 5 7021-8 ####[facility] [id number] [place] [address] [place] Nucleated RBC/100 WBC (Bld) [Ratio] 0.0 /100 WBC Normal [facility] Comment on above: Order Comment: Speci men Type: BLOOD SPECIMENOrdering Facility: [facility] Address: [address] [place] [address] Performed By: #### 5 7021-8 ####[facility]TONLI [id number] [place] [address] [place] Platelet mean volume (Bld) [Entitic vol] 9.1 fL Normal 9.0-12.7 [facility] Comment on above: Order Comment: Speci men Type: BLOOD SPECIMENOrdering Facility: [facility] Address: [address] [place] [address] Performed By: #### 5 7021-8 ####[facility]TONLIA [id number] [place] [address] [place] Platelets (Bld) [#/Vol] 332 10*3/uL Normal 150-400 [facility] Comment on above: Order Comment: Speci men Type: BLOOD SPECIMENOrdering Facility: [facility] Address: [address] [place] [address] Performed By: #### 5 7021-8 ####[facility] [id number] [place] [address] [place] RBC (Bld) [#/Vol] 3.93 10*6/uL Normal 3.90-5.20 [facility] Comment on above: Order Comment: Speci men Type: BLOOD SPECIMENOrdering Facility: [facility] Address: [address] [place] [address] Performed By: #### 5 7021-8 ####[facility]TONLIA [id number] [place] [address] [facility] WBC (Bld) [#/Vol] 5.87 10*3/uL Normal 3.70-11.00 [facility] Comment on above: Order Comment: Speci men Type: BLOOD SPECIMENOrdering Facility: [facility] Address: [address] [place] [address] Performed By: #### 5 7021-8 ####[facility] [id number] [place] [address] [place] Comprehensive metabolic 2000 panelOrdered By: Zaida Rice on 08-21-2024 Albumin [Mass/Vol] 4.3 g/dL 3.9 - 4.9 g/dL [facility] ALP [Catalytic activity/Vol] 84 U/L 34 - 123 U/L [facility] ALT [Catalytic activity/Vol] 13 U/L 7 - 38 U/L [facility] Anion gap [Moles/Vol] 11 mmol/L 8 - 15 mmol/L [facility] AST [Catalytic activity/Vol] 13 U/L 13 - 35 U/L [facility] Bilirubin [Mass/Vol] 0.6 mg/dL 0.2 - 1 .3 mg/dL [facility] Calcium [Mass/Vol] 9.2 mg/dL 8.5 - 10. 2 mg/dL [facility] Chloride [Moles/Vol] 100 mmol/L 98 - 10 7 mmol/L [facility] CO2 [Moles/Vol] 25 mmol/L 22 - 30 mmol/L [facility] Creatinine [Mass/Vol] 0.6 mg/dL 0.58 - 0.96 mg/dL [facility] GFR/1.73 sq M.predicted among non-blacks MDRD (S/P/Bld) [Vol rate/Area] 91 mL/min/{1.73_m2} - PINF [facility] Comment on above: Estimated Glomerular Filtration Rate (eGFR) is calculated using the 2020 CKD-EPI creatinine equation. This equation utilizes serum creatinine, sex, and age as parameters. The creatinine assay has traceable calibration to isotope dilution-mass spectrometry. Refer to KDIGO guidelines for clinical interpretation. In patients with unstable renal function, e.g. those with acute kidney injury, the eGFR may not accurately reflect actual GFR. Glucose [Mass/Vol] 80 mg/dL 74 - 99 mg/dL [facility] Comment on above: The [place] Diabete s Association (ADA) provides guidance for cutoff values for fasting glucose and random glucose. The ADA defines fasting as no caloric intake for at least 8 hours. Fasting plasma glucose results between 100 to 125 mg/dL indicate increased risk for diabetes (prediabetes). Fasting plasma glucose results greater than or equal to 126 mg/dL meet the criteria for diagnosis of diabetes. In the absence of unequivocal hyperglycemia, results should be confirmed by repeat testing. In a patient with classic symptoms of hyperglycemia or hyperglycemic crisis, random plasma glucose results greater than or equal to 200 mg/dL meet the criteria for diagnosis of diabetes. Reference: Standards of Medical Care in Diabetes 2016, [place] Diabetes Association. Diabetes Care. 2016.39(Suppl 1). Interpretation and review of laboratory results Normal [facility] Potassium [Moles/Vol] 4.4 mmol/L 3.7 - 5.1 mmol/L [facility] Protein [Mass/Vol] 6.9 g/dL 6.3 - 8.0 g/dL [facility] Sodium [Moles/Vol] 136 mmol/L 136 - 144 mmol/L [facility] Urea nitrogen [Mass/Vol] 17 mg/dL 7 - 21 mg/dL [facility] Comprehensive metabolic 2000 panelon 08-21-2024 Albumin [Mass/Vol] 4.3 g/dL Normal 3.9-4.9 [facility] Comment on above: Order Comment: Speci men Type: BLOOD SPECIMENOrdering Facility: [facility] Address: [facility] [place] [address] Performed By: #### 2 4323-8 ####[facility] JOI MILLTOWNCLIA [id number] [place] [address] [place] ALP [Catalytic activity/Vol] 84 U/L Normal 34-123 [facility] Comment on above: Order Comment: Speci men Type: BLOOD SPECIMENOrdering Facility: [facility] Address: [address] [place] [address] Performed By: #### 2 4323-8 ####[facility] MILLTOWNCLIA [id number] [place] [address] [place] ALT [Catalytic activity/Vol] 13 U/L Normal 7-38 [facility] Comment on above: Order Comment: Speci men Type: BLOOD SPECIMENOrdering Facility: [facility] Address: [address] [place] [address] Performed By: #### 2 4323-8 ####[facility]TONLIA [id number] [place] [address] [place] Anion gap [Moles/Vol] 11 mmol/L Normal 8-15 [facility] Comment on above: Order Comment: Speci men Type: BLOOD SPECIMENOrdering Facility: [facility] Address: [address] [place] [address] Performed By: #### 2 4323-8 ####[facility]ENTERWNCLIA [id number] [place] [address] [place] AST [Catalytic activity/Vol] 13 U/L Normal 13-35 [facility] Comment on above: Order Comment: Speci men Type: BLOOD SPECIMENOrdering Facility: [facility] Address: [address] [place] [address] Performed By: #### 2 4323-8 ####[facility] CENTERWNCLIA [id number] [place] [address] [place] Bilirubin [Mass/Vol] 0.6 mg/dL Normal 0.2-1.3 [facility] Comment on above: Order Comment: Speci men Type: BLOOD SPECIMENOrdering Facility: [facility] Address: [address] [place] [address] Performed By: #### 2 4323-8 ####[facility] CENTERWNCLIA [id number] [place] [address] [place] Calcium [Mass/Vol] 9.2 mg/dL Normal 8.5-10.2 [facility] Comment on above: Order Comment: Speci men Type: BLOOD SPECIMENOrdering Facility: [facility] Address: [address] [place] [address] Performed By: #### 2 4323-8 ####[facility]AMINCLIA [id number] [place] [address] [place] Chloride [Moles/Vol] 100 mmol/L Normal 98-107 [facility] Comment on above: Order Comment: Speci men Type: BLOOD SPECIMENOrdering Facility: [facility] Address: [address] [place], [place] [address] Performed By: #### 2 4323-8 ####[facility] MIAMINCA [id number] [place] [address] [place] CO2 [Moles/Vol] 25 mmol/L Normal 22-30 [facility] Comment on above: Order Comment: Speci men Type: BLOOD SPECIMENOrdering Facility: [facility] Address: [address] [place] [address] Performed By: #### 2 4323-8 ####[facility] MIAMINCA [id number] [place] [address] [place] Creatinine [Mass/Vol] 0.60 mg/dL Normal 0.58-0.96 [facility] Comment on above: Order Comment: Speci men Type: BLOOD SPECIMENOrdering Facility: [facility] Address: [address] [place] [address] Performed By: #### 2 4323-8 ####[facility] CENTERWNCLI [id number] [place] [address] [place] Creatinine and Glomerular filtration rate.predicted panel (S/P/Bld) 91 mL/min/1.73m??? Normal >=60 [facility] Comment on above: Order Comment: Katrina li Type: BLOOD SPECIMENOrdering Facility: [facility] Address: [address] [place] [address] Result Comment: Amina mated Glomerular Filtration Rate (eGFR) is calculated using the 2020 CKD-EPI creatinine equation. This equation utilizes serum creatinine, sex, and age as parameters. The creatinine assay has traceable calibration to isotope dilution-mass spectrometry. Refer to KDIGO guidelines for clinical interpretation. In patients with unstable renal function, e.g. those with acute kidney injury, the eGFR may not accurately reflect actual GFR. Performed By: #### 2 4323-8 ####[facility] [id number] [place] [address] [place] Glucose [Mass/Vol] 80 mg/dL Normal 74-99 [facility] Comment on above: Order Comment: Katrina li Type: BLOOD SPECIMENOrdering Facility: [facility] Address: [address] [place] [address] Result Comment: The [place] Diabetes Association (ADA) provides guidance for cutoff values for fasting glucose and random glucose. The ADA defines fasting as no caloric intake for at least 8 hours. Fasting plasma glucose results between 100 to 125 mg/dL indicate increased risk for diabetes (prediabetes).Fasting plasma glucose results greater than or equal to 126 mg/dL meet the criteria for diagnosis of diabetes. In the absence of unequivocal hyperglycemia, results should be confirmed by repeat testing. In a patient with classic symptoms of hyperglycemia or hyperglycemic crisis, random plasma glucose results greater than or equal to 200 mg/dL meet the criteria for diagnosis of diabetes.Reference: Standards of Medical Care in Diabetes 2016, [place] Diabetes Association. Diabetes Care. 2016.39(Suppl 1). Performed By: #### 2 4323-8 ####[facility]TONLIA [id number] [place] [address] [place] Potassium [Moles/Vol] 4.4 mmol/L Normal 3.7-5.1 [facility] Comment on above: Order Comment: Speci men Type: BLOOD SPECIMENOrdering Facility: [facility] Address: [address] [place] [address] Performed By: #### 2 4323-8 ####[facility] MILLWNCLIA [id number] [place] [address] [place] Protein [Mass/Vol] 6.9 g/dL Normal 6.3-8.0 [facility] Comment on above: Order Comment: Speci men Type: BLOOD SPECIMENOrdering Facility: [facility] Address: [address] [place] [address] Performed By: #### 2 4323-8 ####[facility]INCLIA [id number] [place] [address] [place] Sodium [Moles/Vol] 136 mmol/L Normal 136-144 [facility] Comment on above: Order Comment: Speci men Type: BLOOD SPECIMENOrdering Facility: [facility] Address: [address] [place] [address] Performed By: #### 2 4323-8 ####[facility] MILLWNCLIA [id number] [place] [address] [place] Urea nitrogen [Mass/Vol] 17 mg/dL Normal 7-21 [facility] Comment on above: Order Comment: Speci men Type: BLOOD SPECIMENOrdering Facility: [facility] Address: [address] [place] [address] Performed By: #### 2 4323-8 ####[facility] CENTERWNCLIA [id number] [place] [address] [place] CNOVSPon 08-01-2024 CNOVSP Normal [facility] CBC W Auto Differential pane l (Bld)on 07-31-2024 Basophils (Bld) [#/Vol] 0.09 10*3/uL [facility] Basophils/100 WBC (Bld) 1.6 % [facility] Differential cell count method Nom (Bld) Auto [facility] Eosinophils (Bld) [#/Vol] 0.11 10*3/uL [facility] Eosinophils/100 WBC (Bld) 2 % [facility] Erythrocyte distribution width (RBC) [Ratio] 15.4 % High 11.5 - 15.0 % [facility] Hematocrit (Bld) [Volume fraction] 34.8 % Low 36.0 - 46.0 % [facility] Hemoglobin (Bld) [Mass/Vol] 11.8 g/dL 11.5 - 15.5 g/dL [facility] Immature granulocytes (Bld) [#/Vol] [facility] Immature granulocytes/100 WBC (Bld) 0.4 % [facility] Interpretation and review of laboratory results Abnormal [facility] Lymphocytes (Bld) [#/Vol] 1.4 10*3/uL [facility] [facility] Lymphocytes/100 WBC (Bld) 24.8 % [facility] MCH (RBC) [Entitic mass] 29.8 pg 26.0 - 34.0 pg [facility] MCHC (RBC) [Mass/Vol] 33.9 g/dL 30.5 - 36.0 g/dL [facility] MCV (RBC) [Entitic vol] 87.9 fL 80.0 - 100.0 fL [facility] Monocytes (Bld) [#/Vol] 0.33 10*3/uL [facility] Monocytes/100 WBC (Bld) 5.9 % [facility] Neutrophils (Bld) [#/Vol] 3.69 10*3/uL [facility] Neutrophils/100 WBC (Bld) 65.3 % [facility] Nucleated RBC (Bld) [#/Vol] [facility] Nucleated RBC/100 WBC (Bld) [Ratio] 0 % /100 WBC [facility] Platelet mean volume (Bld) [Entitic vol] 9.5 fL 9.0 - 12.7 fL [facility] Platelets (Bld) [#/Vol] 323 10*3/uL [facility] RBC (Bld) [#/Vol] 3.96 10*6/uL 3.90 - 5.20 m/uL [facility] WBC (Bld) [#/Vol] 5.64 10*3/uL [facility] Basophils (Bld) [#/Vol] 0.09 10*3/uL Normal <0.11 [facility] Comment on above: Order Comment: Speci men Type: BLOOD SPECIMENOrdering Facility: [facility] Address: [address] [place] [address] Performed By: #### 5 7021-8 ####[facility] MILLWNELIA [id number] [place] [address] [place] Basophils/100 WBC (Bld) 1.6 % Normal [facility] Comment on above: Order Comment: Speci men Type: BLOOD SPECIMENOrdering Facility: [facility] Address: [address] [place] [address] Performed By: #### 5 7021-8 ####[facility] DAYTONLIA [id number] [place] [address] [place] Differential cell count method Nom (Bld) Auto Normal [facility] Comment on above: Order Comment: Speci men Type: BLOOD SPECIMENOrdering Facility: [facility] Address: [address] [place] [address] Performed By: #### 5 7021-8 ####[facility] MILLWNCLIA [id number] [place] [address] [place] Eosinophils (Bld) [#/Vol] 0.11 10*3/uL Normal <0.46 [facility] Comment on above: Order Comment: Speci men Type: BLOOD SPECIMENOrdering Facility: [facility] Address: [address] [place] [address] Performed By: #### 5 7021-8 ####[facility] MIAMINCLIA [id number] [place] [address] [place] Eosinophils/100 WBC (Bld) 2.0 % Normal [facility] Comment on above: Order Comment: Speci men Type: BLOOD SPECIMENOrdering Facility: [facility] Address: [address] [place] [address] Performed By: #### 5 7021-8 ####[facility] MIAMINCSHRINERS H[facility]ITALS FOR CHILDREN [id number] [place] [address] [place] Erythrocyte distribution width (RBC) [Ratio] 15.4 % High 11.5-15.0 [facility] Comment on above: Order Comment: Speci men Type: BLOOD SPECIMENOrdering Facility: [facility] Address: [address] [place] [address] Performed By: #### 5 7021-8 ####[facility]AMINCSHRIN[facility] H[facility]IT[facility] FOR CHILDREN [id number] [place] [address] [place] Hematocrit (Bld) [Volume fraction] 34.8 % Low 36.0-46.0 [facility] Comment on above: Order Comment: Speci men Type: BLOOD SPECIMENOrdering Facility: [facility] Address: [address] [place] [address] Performed By: #### 5 7021-8 ####[facility] [id number] [place] [address] [place] Hemoglobin (Bld) [Mass/Vol] 11.8 g/dL Normal 11.5-15.5 [facility] Comment on above: Order Comment: Speci men Type: BLOOD SPECIMENOrdering Facility: [facility] Address: [address] [place], [place] [address] Performed By: #### 5 7021-8 ####[facility] MIAMINCLI [id number] [place] [address] [place] Immature granulocytes (Bld) [#/Vol] 10*3/uL Normal <0.10 [facility] Comment on above: Order Comment: Speci men Type: BLOOD SPECIMENOrdering Facility: [facility] Address: [address] [place] [address] Performed By: #### 5 7021-8 ####[facility] HARDIKESTHERA [id number] [place] [address] [place] Immature granulocytes/100 WBC (Bld) 0.4 % Normal [facility] Comment on above: Order Comment: Speci men Type: BLOOD SPECIMENOrdering Facility: [facility] Address: [address] [place] [address] Performed By: #### 5 7021-8 ####[facility] MIAMIRAFFY [id number] [place] [address] [place] Lymphocytes (Bld) [#/Vol] 1.40 10*3/uL Normal 1.00-4.00 [facility] Comment on above: Order Comment: Speci men Type: BLOOD SPECIMENOrdering Facility: [facility] Address: [address] [place] [address] Performed By: #### 5 7021-8 ####[facility] [id number] [place] [address] [place] Lymphocytes/100 WBC (Bld) 24.8 % Normal [facility] Comment on above: Order Comment: Speci men Type: BLOOD SPECIMENOrdering Facility: [facility] Address: [address] [place] [address] Performed By: #### 5 7021-8 ####[facility] MIAMINCLIA [id number] [place] [address] [place] MCH (RBC) [Entitic mass] 29.8 pg Normal 26.0-34.0 [facility] Comment on above: Order Comment: Speci men Type: BLOOD SPECIMENOrdering Facility: [facility] Address: [address] [place] [address] Performed By: #### 5 7021-8 ####[facility] DAYTONLIA [id number] [place] [address] [place] MCHC (RBC) [Mass/Vol] 33.9 g/dL Normal 30.5-36.0 [facility] Comment on above: Order Comment: Speci men Type: BLOOD SPECIMENOrdering Facility: [facility] Address: [address] [place] [address] Performed By: #### 5 7021-8 ####[facility] [id number] [place] [address] [place] MCV (RBC) [Entitic vol] 87.9 fL Normal 80.0-100.0 [facility] Comment on above: Order Comment: Speci men Type: BLOOD SPECIMENOrdering Facility: [facility] Address: [address] [place] [address] Performed By: #### 5 7021-8 ####[facility] [id number] [place] [address] [place] Monocytes (Bld) [#/Vol] 0.33 10*3/uL Normal <0.87 [facility] Comment on above: Order Comment: Speci men Type: BLOOD SPECIMENOrdering Facility: [facility] Address: [address] [place] [address] Performed By: #### 5 7021-8 ####[facility] [id number] [place] [address] [place] Monocytes/100 WBC (Bld) 5.9 % Normal [facility] Comment on above: Order Comment: Speci men Type: BLOOD SPECIMENOrdering Facility: [facility] Address: [address] [place] [address] Performed By: #### 5 7021-8 ####[facility] MIAMINCLI [id number] [place] [address] [place] Neutrophils (Bld) [#/Vol] 3.69 10*3/uL Normal 1.45-7.50 [facility] Comment on above: Order Comment: Speci men Type: BLOOD SPECIMENOrdering Facility: [facility] Address: [address] [place] [address] Performed By: #### 5 7021-8 ####[facility]ENTERWNCLIA [id number] [place] [address] [place] Neutrophils/100 WBC (Bld) 65.3 % Normal [facility] Comment on above: Order Comment: Speci men Type: BLOOD SPECIMENOrdering Facility: [facility] Address: [address] [place] [address] Performed By: #### 5 7021-8 ####[facility] [id number] [place] [address] [place] Nucleated RBC (Bld) [#/Vol] 10*3/uL Normal <0.01 [facility] Comment on above: Order Comment: Speci men Type: BLOOD SPECIMENOrdering Facility: [facility] Address: [address] [place] [address] Performed By: #### 5 7021-8 ####[facility] MIAMINCLI [id number] [place] [address] [place] Nucleated RBC/100 WBC (Bld) [Ratio] 0.0 /100 WBC Normal [facility] Comment on above: Order Comment: Speci men Type: BLOOD SPECIMENOrdering Facility: [facility] Address: [address] [place] [address] Performed By: #### 5 7021-8 ####[facility] [id number] [place] [address] [place] Platelet mean volume (Bld) [Entitic vol] 9.5 fL Normal 9.0-12.7 [facility] Comment on above: Order Comment: Speci men Type: BLOOD SPECIMENOrdering Facility: [facility] Address: [address] [place] [address] Performed By: #### 5 7021-8 ####[facility] JULIETTENCLIA [id number] [place] [address] [place] [facility] [place] Platelets (Bld) [#/Vol] 323 10*3/uL Normal 150-400 [facility] Comment on above: Order Comment: Speci men Type: BLOOD SPECIMENOrdering Facility: [facility] Address: [address] [place] [address] Performed By: #### 5 7021-8 ####[facility] HARDIKKarleneNCLIA [id number] [place] [address] [place] RBC (Bld) [#/Vol] 3.96 10*6/uL Normal 3.90-5.20 [facility] Comment on above: Order Comment: Speci men Type: BLOOD SPECIMENOrdering Facility: [facility] Address: [address] [place] [address] Performed By: #### 5 7021-8 ####[facility] MIAMINCLIA [id number] [place] [address] [place] WBC (Bld) [#/Vol] 5.64 10*3/uL Normal 3.70-11.00 [facility] Comment on above: Order Comment: Speci men Type: BLOOD SPECIMENOrdering Facility: [facility] Address: [address] [place] [address] Performed By: #### 5 7021-8 ####[facility] MIAMINCLIA [id number] [place] [address] [place] [facility] [place] Comprehensive metabolic 2000 panelOrdered By: Zaida Rice on 07-31-2024 Albumin [Mass/Vol] 4 g/dL 3.9 - 4.9 g/dL [facility] ALP [Catalytic activity/Vol] 78 U/L 34 - 123 U/L [facility] ALT [Catalytic activity/Vol] 10 U/L 7 - 38 U/L [facility] Anion gap [Moles/Vol] 12 mmol/L 8 - 15 mmol/L [facility] AST [Catalytic activity/Vol] 14 U/L 13 - 35 U/L [facility] Bilirubin [Mass/Vol] 0.6 mg/dL 0.2 - 1 .3 mg/dL [facility] Calcium [Mass/Vol] 9.3 mg/dL 8.5 - 10. 2 mg/dL [facility] Chloride [Moles/Vol] 100 mmol/L 98 - 10 7 mmol/L [facility] CO2 [Moles/Vol] 24 mmol/L 22 - 30 mmol/L [facility] Creatinine [Mass/Vol] 0.67 mg/dL 0.58 - 0.96 mg/dL [facility] GFR/1.73 sq M.predicted among non-blacks MDRD (S/P/Bld) [Vol rate/Area] 89 mL/min/{1.73_m2} - PINF [facility] Comment on above: Estimated Glomerular Filtration Rate (eGFR) is calculated using the 2020 CKD-EPI creatinine equation. This equation utilizes serum creatinine, sex, and age as parameters. The creatinine assay has traceable calibration to isotope dilution-mass spectrometry. Refer to KDIGO guidelines for clinical interpretation. In patients with unstable renal function, e.g. those with acute kidney injury, the eGFR may not accurately reflect actual GFR. Glucose [Mass/Vol] 90 mg/dL 74 - 99 mg/dL [facility] Comment on above: The [place] Diabete [place] Association (ADA) provides guidance for cutoff values for fasting glucose and random glucose. The ADA defines fasting as no caloric intake for at least 8 hours. Fasting plasma glucose results between 100 to 125 mg/dL indicate increased risk for diabetes (prediabetes). Fasting plasma glucose results greater than or equal to 126 mg/dL meet the criteria for diagnosis of diabetes. In the absence of unequivocal hyperglycemia, results should be confirmed by repeat testing. In a patient with classic symptoms of hyperglycemia or hyperglycemic crisis, random plasma glucose results greater than or equal to 200 mg/dL meet the criteria for diagnosis of diabetes. Reference: Standards of Medical Care in Diabetes 2016, [place] Diabetes Association. Diabetes Care. 2016.39(Suppl 1). Interpretation and review of laboratory results Normal [facility] Potassium [Moles/Vol] 4.2 mmol/L 3.7 - 5.1 mmol/L [facility] Protein [Mass/Vol] 6.8 g/dL 6.3 - 8.0 g/dL [facility] Sodium [Moles/Vol] 136 mmol/L 136 - 144 mmol/L [facility] Urea nitrogen [Mass/Vol] 14 mg/dL 7 - 21 mg/dL [facility] Comprehensive metabolic 2000 panelon 07-31-2024 Albumin [Mass/Vol] 4.0 g/dL Normal 3.9-4.9 [facility] Comment on above: Order Comment: Speci men Type: BLOOD SPECIMENOrdering Facility: [facility] Address: [address] [place] [address] Performed By: #### 2 4323-8 ####[facility] MIAMIJENNIFERLIA [id number] [place] [address] [place] ALP [Catalytic activity/Vol] 78 U/L Normal 34-123 [facility] Comment on above: Order Comment: Speci men Type: BLOOD SPECIMENOrdering Facility: [facility] Address: [address] [place] [address] Performed By: #### 2 4323-8 ####[facility] MIAMIJENNIFERLIA [id number] [place] [address] [place] ALT [Catalytic activity/Vol] 10 U/L Normal 7-38 [facility] Comment on above: Order Comment: Speci men Type: BLOOD SPECIMENOrdering Facility: [facility] Address: [address] [place] [address] Performed By: #### 2 4323-8 ####[facility] DAYTONLIA [id number] [place] [address] [place] Anion gap [Moles/Vol] 12 mmol/L Normal 8-15 [facility] Comment on above: Order Comment: Speci men Type: BLOOD SPECIMENOrdering Facility: [facility] Address: [address] [place] [address] Performed By: #### 2 4323-8 ####[facility] JOI MILLTOWNCLIA [id number] [place] [address] [place] AST [Catalytic activity/Vol] 14 U/L Normal 13-35 [facility] Comment on above: Order Comment: Speci men Type: BLOOD SPECIMENOrdering Facility: [facility] Address: [address] [place] [address] Performed By: #### 2 4323-8 ####[facility] MILLTOWNCLIA [id number] [place] [address] [place] Bilirubin [Mass/Vol] 0.6 mg/dL Normal 0.2-1.3 [facility] Comment on above: Order Comment: Speci men Type: BLOOD SPECIMENOrdering Facility: [facility] Address: [address] [place] [address] Performed By: #### 2 4323-8 ####[facility]ENTERWNCLIA [id number] [place] [address] [place] Calcium [Mass/Vol] 9.3 mg/dL Normal 8.5-10.2 [facility] Comment on above: Order Comment: Speci men Type: BLOOD SPECIMENOrdering Facility: [facility] Address: [address] [place] [address] Performed By: #### 2 4323-8 ####[facility] MILLTOWNCLIA [id number] [place] [address] [place] Chloride [Moles/Vol] 100 mmol/L Normal 98-107 [facility] Comment on above: Order Comment: Speci men Type: BLOOD SPECIMENOrdering Facility: [facility] Address: [address] [place] [address] Performed By: #### 2 4323-8 ####[facility] MILLTOWNCLIA [id number] [place] [address] [place] CO2 [Moles/Vol] 24 mmol/L Normal 22-30 [facility] Comment on above: Order Comment: Speci men Type: BLOOD SPECIMENOrdering Facility: [facility] Address: [address] [place] [address] Performed By: #### 2 4323-8 ####[facility] [id number] [place] [address] [place] Creatinine [Mass/Vol] 0.67 mg/dL Normal 0.58-0.96 [facility] Comment on above: Order Comment: Speci men Type: BLOOD SPECIMENOrdering Facility: [facility] Address: [address] [place] [address] Performed By: #### 2 4323-8 ####[facility] [id number] [place] [address] [place] Creatinine and Glomerular filtration rate.predicted panel (S/P/Bld) 89 mL/min/1.73m??? Normal >=60 [facility] Comment on above: Order Comment: Speci men Type: BLOOD SPECIMENOrdering Facility: [facility] Address: [address] [place] [address] Result Comment: Amina mated Glomerular Filtration Rate (eGFR) is calculated using the 2020 CKD-EPI creatinine equation. This equation utilizes serum creatinine, sex, and age as parameters. The creatinine assay has traceable calibration to isotope dilution-mass spectrometry. Refer to KDIGO guidelines for clinical interpretation. In patients with unstable renal function, e.g. those with acute kidney injury, the eGFR may not accurately reflect actual GFR. Performed By: #### 2 4323-8 ####[facility] [id number] [place] [address] [place] Glucose [Mass/Vol] 90 mg/dL Normal 74-99 [facility] Comment on above: Order Comment: Speci men Type: BLOOD SPECIMENOrdering Facility: [facility] Address: [address] [place] [address] Result Comment: The [place] Diabetes Association (ADA) provides guidance for cutoff values for fasting glucose and random glucose. The ADA defines fasting as no caloric intake for at least 8 hours. Fasting plasma glucose results between 100 to 125 mg/dL indicate increased risk for diabetes (prediabetes).Fasting plasma glucose results greater than or equal to 126 mg/dL meet the criteria for diagnosis of diabetes. In the absence of unequivocal hyperglycemia, results should be confirmed by repeat testing. In a patient with classic symptoms of hyperglycemia or hyperglycemic crisis, random plasma glucose results greater than or equal to 200 mg/dL meet the criteria for diagnosis of diabetes.Reference: Standards of Medical Care in Diabetes 2016, [place] Diabetes Association. Diabetes Care. 2016.39(Suppl 1). Performed By: #### 2 4323-8 ####[facility] [id number] [place] [address] [place] Potassium [Moles/Vol] 4.2 mmol/L Normal 3.7-5.1 [facility] Comment on above: Order Comment: Speci men Type: BLOOD SPECIMENOrdering Facility: [facility] Address: [address] [place] [address] Performed By: #### 2 4323-8 ####[facility] [id number] [place] [address] [place] Protein [Mass/Vol] 6.8 g/dL Normal 6.3-8.0 [facility] Comment on above: Order Comment: Speci men Type: BLOOD SPECIMENOrdering Facility: [facility] Address: [address] [place] [address] Performed By: #### 2 4323-8 ####[facility] DAYTONLIA [id number] [place] [address] [place] Sodium [Moles/Vol] 136 mmol/L Normal 136-144 [facility] Comment on above: Order Comment: Speci men Type: BLOOD SPECIMENOrdering Facility: [facility] Address: [address] [place] [address] Performed By: #### 2 4323-8 ####[facility] JOI SARMIENTOWNCLIA [id number] [place] [address] [place] Urea nitrogen [Mass/Vol] 14 mg/dL Normal 7-21 [facility] Comment on above: Order Comment: Speci men Type: BLOOD SPECIMENOrdering Facility: [facility] Address: [address] [place] [address] Performed By: #### 2 4323-8 ####[facility] JOI DYEKALONARAFFY [id number] [place] [address] [place] CNOVon 07-16-2024 CNOV Normal [facility] GLUCOSE, BLOOD (POC)on 07-11 Glucose [Mass/Vol] 101 mg/dL Abnormal 74 - 99 mg/dL [facility] Comment on above: Location:[facility], [address] [place] [address], [facility] The Accu-Chek Inform II glucose meter has not been approved for testing on patients receiving intensive medical intervention or therapy and results from this point of care glucose test should not be used for patient management decisions in these cases. Inaccurate results may also occur from other interfering factors, such as N-acetylcysteine (blood concentrations of greater than 5mg/dL), galactose, extremes of hematocrit (<10 or >65), or high doses of ascorbic acid (vitamin C) greater than 3mg/dL. Consider alternate testing mechanisms (e.g. core lab, blood gas instrument) in the above situations. Interpretation and review of laboratory results Abnormal [facility] NM PET/CT SKULL-THIGH SUBQon 07-11-2024 NM PET/CT SKULL-THIGH SUBQ * * *Final Report* * * DATE OF EXAM: Jul 11 2024 10:30AM [facility] 0063 - NM PET/CT SKULL-THIGH SUBQ / PROCEDURE REASON: multiple diagnoses * * * * Physician Interpretation * * * * EXAMINATION: BODY FDG PET-CT CLINICAL HISTORY: Metastatic breast cancer. EXAM CATEGORY: Subsequent treatment strategy. TECHNIQUE: Radiopharmaceutical was administered intravenously followed by PET imaging from the eyes to thighs. Free breathing, low dose CT of the same body region was acquired without IV contrast for attenuation correction and anatomic localization. Unenhanced imaging is limited for the evaluation of some pathology and the acquired CT was not designed to produce diagnostic CT scan quality. Physiologic/non-pathologic uptake in some body regions could confound or obscure some pathology. * CT Dose-Length Product (DLP): 385 mGy*cm * CT Dose Reduction Employed: Yes * Blood glucose: 101 mg/dL * Injection site: Right Forearm-Antecubital * Injected activity: 8.6 mCi * Uptake Time: 75 minutes * Radiopharmaceutical: [id number] (FDG) COMPARISON: FDG PET/CT 03/26/2024, 08/22/2023, 02/16/2022 CORRELATION: MRI abdomen 07/09/2024; ER PET/CT 04/11/2023 RESULT: REFERENCES: FDG uptake is used as a surrogate marker for glucose metabolism. All reported standardized uptake values represent maximum SUV (SUVmax) per body weight, unless otherwise specified. SUV reference values, as follows: * Blood Pool (Descending Aorta): SUVmax 2.0 * Background Liver: SUVmax 3.0; SUVmean 2.3 Localizer Images: No additional findings. HEAD AND NECK: Head: No radiotracer avid lesion or mass effect in the imaged intracranial compartment. Aerodigestive Tract: Asymmetric radiotracer uptake in the right nasopharynx posterolaterally without a clear anatomic correlate (CT image 20; SUVmax 4.4), new. Lymph Nodes: No radiotracer avid lymphadenopathy. Neck Soft Tissues: No radiotracer avid thyroid nodule. CHEST: Lungs and Pleura: No radiotracer avid mass, nodule, or consolidation. No pleural effusion. Chronic subpleural reticular opacities throughout both lungs. Generalized bronchial wall thickening. Note, PET is often not sensitive for lung nodules smaller than 8 mm. Lymph Nodes: No radiotracer avid lymphadenopathy. Mediastinum: Moderate hiatal hernia. Cardiovascular: Blood pool activity. No pericardial effusion. Normal heart size. Coronary artery calcifications. Chest Wall: * Similar 11.5 x 3.5 cm lenticular fluid collection along the left mastectomy bed with low radiotracer uptake peripherally (SUVmax 2.2, previously 2.6). No associated gas. * No radiotracer avid right breast mass. * Increasing radiotracer uptake along the left serratus musculature at the level of the third-sixth ribs without a clear anatomic correlate (SUVmax 4.2, previously 3.6; CT image 90). No enhancing lesion in the imaged aspects on the 07/09/2024 MRI. * Right chest wall port with central venous catheter tip in the right atrium. ABDOMEN AND PELVIS: Hepatobiliary: No radiotracer avid lesion or measurable mass. Specifically, no increased radiotracer uptake in vicinity of the hypoenhancing liver lesions on the 07/09/2024 MRI. Spleen: No radiotracer avid lesion. No splenomegaly. Pancreas: No radiotracer avid lesion. Adrenals: No radiotracer avid nodule. Urinary Tract: Physiologic radiotracer excretion in the renal collecting systems and urinary bladder. No hydronephrosis. GI Tract and Peritoneum: Segmentally increased bowel uptake is likely physiologic or secondary to medication effects (e.g. metformin), but does degrade assessment for peritoneal disease. No focal radiotracer avid lesion. No dilated bowel or ascites. Left-sided lumbar hernia containing nonobstructed descending colon, unchanged. Colonic diverticulosis. Lymph Nodes: No radiotracer avid lymphadenopathy. Vasculature: Blood pool activity. Vascular calcifications without an abdominal aortic aneurysm. Pelvic Organs: No radiotracer avid lesion. MUSCULOSKELETAL: Bones: * No radiotracer avid or destructive osseous lesion. * T6 vertebral body densely sclerotic lesion without increased radiotracer uptake. * Posterior lumbar fusion hardware without increased radiotracer uptake. * Degenerative changes, some with typical radiotracer uptake. Soft Tissues: No radiotracer avid lesion. Areas of likely physiologic musculature uptake including left piriformis and bilateral gluteal regions. IMPRESSION Since 03/26/2024, PRIMARY DISEASE SITE: * No metabolically active recurrent mass in the left mastectomy bed. * Grossly stable left chest wall seroma without internal gas. * Lenticular metabolism along the left serratus musculature is favored to be physiologic. LATASHA DISEASE: * No metabolically active regional lymphadenopathy. METASTATIC DISEASE: * No metabolically active distant metastases. ADDITIONAL FINDINGS: * Asymmet (more content not included)... Normal [facility] CBC W Auto Differential pane l (Bld)on 07-10-2024 Basophils (Bld) [#/Vol] 0.10 10*3/uL NINF [facility] Basophils/100 WBC (Bld) 1.6 % [facility] Differential cell count method Nom (Bld) Auto [facility] Eosinophils (Bld) [#/Vol] 0.16 10*3/uL [facility] Eosinophils/100 WBC (Bld) 2.6 % [facility] Erythrocyte distribution width (RBC) [Ratio] 15.7 % High 11.5 - 15.0 % [facility] Hematocrit (Bld) [Volume fraction] 34.5 % Low 36.0 - 46.0 % [facility] Hemoglobin (Bld) [Mass/Vol] 11.5 g/dL 11.5 - 15.5 g/dL [facility] Immature granulocytes (Bld) [#/Vol] [facility] Immature granulocytes/100 WBC (Bld) 0.2 % [facility] Interpretation and review of laboratory results Abnormal [facility] Lymphocytes (Bld) [#/Vol] 1.35 10*3/uL [facility] Lymphocytes/100 WBC (Bld) 22.2 % [facility] MCH (RBC) [Entitic mass] 29.5 pg 26.0 - 34.0 pg [facility] MCHC (RBC) [Mass/Vol] 33.3 g/dL 30.5 - 36.0 g/dL [facility] MCV (RBC) [Entitic vol] 88.5 fL 80.0 - 100.0 fL [facility] Monocytes (Bld) [#/Vol] 0.42 10*3/uL [facility] Monocytes/100 WBC (Bld) 6.9 % [facility] Neutrophils (Bld) [#/Vol] 4.03 10*3/uL [facility] Neutrophils/100 WBC (Bld) 66.5 % [facility] Nucleated RBC (Bld) [#/Vol] [facility] Nucleated RBC/100 WBC (Bld) [Ratio] 0.0 % /100 WBC [facility] Platelet mean volume (Bld) [Entitic vol] 9.0 fL 9.0 - 12.7 fL [facility] Platelets (Bld) [#/Vol] 336 10*3/uL [facility] RBC (Bld) [#/Vol] 3.90 10*6/uL 3.90 - 5.20 m/uL [facility] WBC (Bld) [#/Vol] 6.07 10*3/uL [facility] Basophils (Bld) [#/Vol] 0.10 10*3/uL Normal <0.11 [facility] Comment on above: Order Comment: Speci men Type: BLOOD SPECIMENOrdering Facility: [facility] Address: [address] [place] [address] Performed By: #### 5 7021-8 ####[facility] HARDIKKALONANCLIA [id number] [place] [address] [place] Basophils/100 WBC (Bld) 1.6 % Normal [facility] Comment on above: Order Comment: Speci men Type: BLOOD SPECIMENOrdering Facility: [facility] Address: [address] [place] [address] Performed By: #### 5 7021-8 ####[facility] DAYTONLIA [id number] [place] [address] [place] Differential cell count method Nom (Bld) Auto Normal [facility] Comment on above: Order Comment: Speci men Type: BLOOD SPECIMENOrdering Facility: [facility] Address: [address] [place] [address] Performed By: #### 5 7021-8 ####[facility] [id number] [place] [address] [place] Eosinophils (Bld) [#/Vol] 0.16 10*3/uL Normal <0.46 [facility] Comment on above: Order Comment: Speci men Type: BLOOD SPECIMENOrdering Facility: [facility] Address: [address] [place] [address] Performed By: #### 5 7021-8 ####[facility] MILLKALONANCLIA [id number] [place] [address] [place] Eosinophils/100 WBC (Bld) 2.6 % Normal [facility] Comment on above: Order Comment: Speci men Type: BLOOD SPECIMENOrdering Facility: [facility] Address: [address] [place] [address] Performed By: #### 5 7021-8 ####[facility] HARDIKKATYLIA [id number] [place] [address] [place] Erythrocyte distribution width (RBC) [Ratio] 15.7 % High 11.5-15.0 [facility] Comment on above: Order Comment: Speci men Type: BLOOD SPECIMENOrdering Facility: [facility] Address: [address] [place] [address] Performed By: #### 5 7021-8 ####[facility] MIAMIMAYNORA [id number] [place] [address] [place] Hematocrit (Bld) [Volume fraction] 34.5 % Low 36.0-46.0 [facility] Comment on above: Order Comment: Speci men Type: BLOOD SPECIMENOrdering Facility: [facility] Address: [address] [place] [address] Performed By: #### 5 7021-8 ####[facility] [id number] [place] [address] [place] Hemoglobin (Bld) [Mass/Vol] 11.5 g/dL Normal 11.5-15.5 [facility] Comment on above: Order Comment: Speci men Type: BLOOD SPECIMENOrdering Facility: [facility] Address: [address] [place] [address] Performed By: #### 5 7021-8 ####[facility] DAYTONLIA [id number] [place] [address] [place] Immature granulocytes (Bld) [#/Vol] 10*3/uL Normal <0.10 [facility] Comment on above: Order Comment: Speci men Type: BLOOD SPECIMENOrdering Facility: [facility] Address: [address] [place] [address] Performed By: #### 5 7021-8 ####[facility] MIAMINCLIA [id number] [place] [address] [place] Immature granulocytes/100 WBC (Bld) 0.2 % Normal [facility] Comment on above: Order Comment: Speci men Type: BLOOD SPECIMENOrdering Facility: [facility] Address: [address] [place] [address] Performed By: #### 5 7021-8 ####[facility]AMINCSHRIN[facility] [id number] [place] [address] [place] Lymphocytes (Bld) [#/Vol] 1.35 10*3/uL Normal 1.00-4.00 [facility] Comment on above: Order Comment: Speci men Type: BLOOD SPECIMENOrdering Facility: [facility] Address: [address] [place] [address] Performed By: #### 5 7021-8 ####[facility] [id number] [place] [address] [place] Lymphocytes/100 WBC (Bld) 22.2 % Normal [facility] Comment on above: Order Comment: Speci men Type: BLOOD SPECIMENOrdering Facility: [facility] Address: [address] [place] [address] Performed By: #### 5 7021-8 ####[facility] MIAMINCLI [id number] [place] [address] [place] MCH (RBC) [Entitic mass] 29.5 pg Normal 26.0-34.0 [facility] Comment on above: Order Comment: Speci men Type: BLOOD SPECIMENOrdering Facility: [facility] Address: [address] [place], [place] [address] Performed By: #### 5 7021-8 ####[facility] [id number] [place] [address] [place] MCHC (RBC) [Mass/Vol] 33.3 g/dL Normal 30.5-36.0 [facility] Comment on above: Order Comment: Speci men Type: BLOOD SPECIMENOrdering Facility: [facility] Address: [address] [place] [address] Performed By: #### 5 7021-8 ####[facility] MIAMIRAFFY [id number] [place] [address] [place] MCV (RBC) [Entitic vol] 88.5 fL Normal 80.0-100.0 [facility] Comment on above: Order Comment: Speci men Type: BLOOD SPECIMENOrdering Facility: [facility] Address: [address] [place] [address] Performed By: #### 5 7021-8 ####[facility]INCSHRIN[facility]IL[facility] [id number] [place] [address] [place] Monocytes (Bld) [#/Vol] 0.42 10*3/uL Normal <0.87 [facility] Comment on above: Order Comment: Speci men Type: BLOOD SPECIMENOrdering Facility: [facility] Address: [address] [place] [address] Performed By: #### 5 7021-8 ####[facility] [id number] [place] [address] [place] Monocytes/100 WBC (Bld) 6.9 % Normal [facility] Comment on above: Order Comment: Speci men Type: BLOOD SPECIMENOrdering Facility: [facility] Address: [address] [place] [address] Performed By: #### 5 7021-8 ####[facility] [id number] [place] [address] [place] Neutrophils (Bld) [#/Vol] 4.03 10*3/uL Normal 1.45-7.50 [facility] Comment on above: Order Comment: Speci men Type: BLOOD SPECIMENOrdering Facility: [facility] Address: [address] [place] [address] Performed By: #### 5 7021-8 ####[facility] HARDIKKATYLIA [id number] [place] [address] [place] Neutrophils/100 WBC (Bld) 66.5 % Normal [facility] Comment on above: Order Comment: Speci men Type: BLOOD SPECIMENOrdering Facility: [facility] Address: [address] [place] [address] Performed By: #### 5 7021-8 ####[facility] MIAMIMAYNOR [id number] [place] [address] [place] Nucleated RBC (Bld) [#/Vol] 10*3/uL Normal <0.01 [facility] Comment on above: Order Comment: Speci men Type: BLOOD SPECIMENOrdering Facility: [facility] Address: [address] [place] [address] Performed By: #### 5 7021-8 ####[facility] [id number] [place] [address] [place] Nucleated RBC/100 WBC (Bld) [Ratio] 0.0 /100 WBC Normal [facility] Comment on above: Order Comment: Speci men Type: BLOOD SPECIMENOrdering Facility: [facility] Address: [address] [place] [address] Performed By: #### 5 7021-8 ####[facility] DAYTONLORENZO [id number] [place] [address] [place] Platelet mean volume (Bld) [Entitic vol] 9.0 fL Normal 9.0-12.7 [facility] Comment on above: Order Comment: Speci men Type: BLOOD SPECIMENOrdering Facility: [facility] Address: [address] [place] [address] Performed By: #### 5 7021-8 ####[facility] DAYTONLIA [id number] [place] [address] [place] Platelets (Bld) [#/Vol] 336 10*3/uL Normal 150-400 [facility] Comment on above: Order Comment: Speci men Type: BLOOD SPECIMENOrdering Facility: [facility] Address: [address] [place] [address] Performed By: #### 5 7021-8 ####[facility] MIAMINCLIA [id number] [place] [address] [place] RBC (Bld) [#/Vol] 3.90 10*6/uL Normal 3.90-5.20 [facility] Comment on above: Order Comment: Speci men Type: BLOOD SPECIMENOrdering Facility: [facility] Address: [address] [place] [address] Performed By: #### 5 7021-8 ####[facility] MIAMINCLIA [id number] [place] [address] [place] WBC (Bld) [#/Vol] 6.07 10*3/uL Normal 3.70-11.00 [facility] Comment on above: Order Comment: Speci men Type: BLOOD SPECIMENOrdering Facility: [facility] Address: [address] [place] [address] Performed By: #### 5 7021-8 ####[facility] MIAMINCLIA [id number] [place] [address] [place] Comprehensive metabolic 2000 panelOrdered By: Zaida Rice on 07-10-2024 Albumin [Mass/Vol] 4.2 g/dL 3.9 - 4.9 g/dL [facility] ALP [Catalytic activity/Vol] 87 U/L 34 - 123 U/L [facility] ALT [Catalytic activity/Vol] 15 U/L 7 - 38 U/L [facility] Anion gap [Moles/Vol] 9 mmol/L 8 - 15 mmol/L [facility] AST [Catalytic activity/Vol] 14 U/L 13 - 35 U/L [facility] Bilirubin [Mass/Vol] 0.8 mg/dL 0.2 - 1 .3 mg/dL [facility] Calcium [Mass/Vol] 9.1 mg/dL 8.5 - 10. 2 mg/dL [facility] Chloride [Moles/Vol] 100 mmol/L 98 - 10 7 mmol/L [facility] CO2 [Moles/Vol] 26 mmol/L 22 - 30 mmol/L [facility] Creatinine [Mass/Vol] 0.64 mg/dL 0.58 - 0.96 mg/dL [facility] GFR/1.73 sq M.predicted among non-blacks MDRD (S/P/Bld) [Vol rate/Area] 90 mL/min/{1.73_m2} - PINF [facility] Comment on above: Estimated Glomerular Filtration Rate (eGFR) is calculated using the 2020 CKD-EPI creatinine equation. This equation utilizes serum creatinine, sex, and age as parameters. The creatinine assay has traceable calibration to isotope dilution-mass spectrometry. Refer to KDIGO guidelines for clinical interpretation. In patients with unstable renal function, e.g. those with acute kidney injury, the eGFR may not accurately reflect actual GFR. Glucose [Mass/Vol] 94 mg/dL 74 - 99 mg/dL [facility] Comment on above: The [place] Diabete s Association (ADA) provides guidance for cutoff values for fasting glucose and random glucose. The ADA defines fasting as no caloric intake for at least 8 hours. Fasting plasma glucose results between 100 to 125 mg/dL indicate increased risk for diabetes (prediabetes). Fasting plasma glucose results greater than or equal to 126 mg/dL meet the criteria for diagnosis of diabetes. In the absence of unequivocal hyperglycemia, results should be confirmed by repeat testing. In a patient with classic symptoms of hyperglycemia or hyperglycemic crisis, random plasma glucose results greater than or equal to 200 mg/dL meet the criteria for diagnosis of diabetes. Reference: Standards of Medical Care in Diabetes 2016, [place] Diabetes Association. Diabetes Care. 2016.39(Suppl 1). Interpretation and review of laboratory results Abnormal [facility] Potassium [Moles/Vol] 4.2 mmol/L 3.7 - 5.1 mmol/L [facility] Protein [Mass/Vol] 6.7 g/dL 6.3 - 8.0 g/dL [facility] Sodium [Moles/Vol] 135 mmol/L Low 136 - 144 mmol/L [facility] Urea nitrogen [Mass/Vol] 15 mg/dL 7 - 21 mg/dL [facility] Comprehensive metabolic 2000 panelon 07-10-2024 Albumin [Mass/Vol] 4.2 g/dL Normal 3.9-4.9 [facility] Comment on above: Order Comment: Speci men Type: BLOOD SPECIMENOrdering Facility: [facility] Address: [address] [place] [address] Performed By: #### 2 4323-8 ####[facility] CENTERWNELIA [id number] [place] [address] [place] ALP [Catalytic activity/Vol] 87 U/L Normal 34-123 [facility] Comment on above: Order Comment: Speci men Type: BLOOD SPECIMENOrdering Facility: [facility] Address: [address] [place] [address] Performed By: #### 2 4323-8 ####[facility] MIAMINCLIA [id number] [place] [address] [place] ALT [Catalytic activity/Vol] 15 U/L Normal 7-38 [facility] Comment on above: Order Comment: Speci men Type: BLOOD SPECIMENOrdering Facility: [facility] Address: [address] [place] [address] Performed By: #### 2 4323-8 ####[facility] MIAMINCLIA [id number] [place] [address] [place] Anion gap [Moles/Vol] 9 mmol/L Normal 8-15 [facility] Comment on above: Order Comment: Speci men Type: BLOOD SPECIMENOrdering Facility: [facility] Address: [address] [place] [address] Performed By: #### 2 4323-8 ####[facility] MIAMINCLIA [id number] [place] [address] [place] AST [Catalytic activity/Vol] 14 U/L Normal 13-35 [facility] Comment on above: Order Comment: Speci men Type: BLOOD SPECIMENOrdering Facility: [facility] Address: [address] [place] [address] Performed By: #### 2 4323-8 ####[facility] HARDIKKATYNNEA [id number] [place] [address] [place] Bilirubin [Mass/Vol] 0.8 mg/dL Normal 0.2-1.3 [facility] Comment on above: Order Comment: Speci men Type: BLOOD SPECIMENOrdering Facility: [facility] Address: [address] [place] [address] Performed By: #### 2 4323-8 ####[facility] MIAMIRAFFY [id number] [place] [address] [place] Calcium [Mass/Vol] 9.1 mg/dL Normal 8.5-10.2 [facility] Comment on above: Order Comment: Speci men Type: BLOOD SPECIMENOrdering Facility: [facility] Address: [address] [place] [address] Performed By: #### 2 4323-8 ####[facility] MIAMIMAYNORA [id number] [place] [address] [place] Chloride [Moles/Vol] 100 mmol/L Normal 98-107 [facility] Comment on above: Order Comment: Speci men Type: BLOOD SPECIMENOrdering Facility: [facility] Address: [address] [place] [address] Performed By: #### 2 4323-8 ####[facility] MIAMINCLIA [id number] [place] [address] [place] CO2 [Moles/Vol] 26 mmol/L Normal 22-30 [facility] Comment on above: Order Comment: Speci men Type: BLOOD SPECIMENOrdering Facility: [facility] Address: [address] [place] [address] Performed By: #### 2 4323-8 ####[facility] MIAMINCLIA [id number] [place] [address] [place] Creatinine [Mass/Vol] 0.64 mg/dL Normal 0.58-0.96 [facility] Comment on above: Order Comment: Katrina li Type: BLOOD SPECIMENOrdering Facility: [facility] Address: [address] [place] [address] Performed By: #### 2 4323-8 ####[facility] [id number] [place] [address] [place] Creatinine and Glomerular filtration rate.predicted panel (S/P/Bld) 90 mL/min/1.73m??? Normal >=60 [facility] Comment on above: Order Comment: Katrina li Type: BLOOD SPECIMENOrdering Facility: [facility] Address: [address] [place] [address] Result Comment: Amina mated Glomerular Filtration Rate (eGFR) is calculated using the 2020 CKD-EPI creatinine equation. This equation utilizes serum creatinine, sex, and age as parameters. The creatinine assay has traceable calibration to isotope dilution-mass spectrometry. Refer to KDIGO guidelines for clinical interpretation. In patients with unstable renal function, e.g. those with acute kidney injury, the eGFR may not accurately reflect actual GFR. Performed By: #### 2 4323-8 ####[facility] [id number] [place] [address] [place] Glucose [Mass/Vol] 94 mg/dL Normal 74-99 [facility] Comment on above: Order Comment: Katrina li Type: BLOOD SPECIMENOrdering Facility: [facility] Address: [address] [place] [address] Result Comment: The [place] Diabetes Association (ADA) provides guidance for cutoff values for fasting glucose and random glucose. The ADA defines fasting as no caloric intake for at least 8 hours. Fasting plasma glucose results between 100 to 125 mg/dL indicate increased risk for diabetes (prediabetes).Fasting plasma glucose results greater than or equal to 126 mg/dL meet the criteria for diagnosis of diabetes. In the absence of unequivocal hyperglycemia, results should be confirmed by repeat testing. In a patient with classic symptoms of hyperglycemia or hyperglycemic crisis, random plasma glucose results greater than or equal to 200 mg/dL meet the criteria for diagnosis of diabetes.Reference: Standards of Medical Care in Diabetes 2016, [place] Diabetes Association. Diabetes Care. 2016.39(Suppl 1). Performed By: #### 2 4323-8 ####[facility] MILLWJENNIFERLIA [id number] [place] [address] [place] Potassium [Moles/Vol] 4.2 mmol/L Normal 3.7-5.1 [facility] Comment on above: Order Comment: Speci men Type: BLOOD SPECIMENOrdering Facility: [facility] Address: [address] [place] [address] Performed By: #### 2 4323-8 ####[facility] DAYTONLIA [id number] [place] [address] [place] Protein [Mass/Vol] 6.7 g/dL Normal 6.3-8.0 [facility] Comment on above: Order Comment: Speci men Type: BLOOD SPECIMENOrdering Facility: [facility] Address: [address] [place] [address] Performed By: #### 2 4323-8 ####[facility] DAYTONLIA [id number] [place] [address] [place] Sodium [Moles/Vol] 135 mmol/L Low 136-144 [facility] Comment on above: Order Comment: Speci men Type: BLOOD SPECIMENOrdering Facility: [facility] Address: [address] [place] [address] Performed By: #### 2 4323-8 ####[facility] MIAMINCLIA [id number] [place] [address] [place] Urea nitrogen [Mass/Vol] 15 mg/dL Normal 7-21 [facility] Comment on above: Order Comment: Speci men Type: BLOOD SPECIMENOrdering Facility: [facility] Address: [facility] [place] [address] Performed By: #### 2 4323-8 ####[facility] [id number] [place] [address] [place] MRI ABDOMEN WO/W IVCONon MRI ABDOMEN WO/W IVCON Normal [facility] CNPNon 07-06-2024 CNPN Normal [facility] CNPNon 07-05-2024 CNPN Normal [facility] Urgent Care Visit Reporton 0 06-23-2024 Urgent Care Visit Report [facility] [address], [address] [place] [address] OFFICE VISIT Date of Service: 06/23/24 MR#: [id number] Acct: [id number] Name: DANETTE BISHOP Rep #: [id number] : 1945 Provider: ZARINA Rosas Age/Sex: 79/F Location: [facility] Status: Signed Intake Vital Signs 06/04/24 08:07 06/23/24 13:31 Height 5 ft 1 in BP 120/70 Blood Pressure Location Rt brachial Position Sitting Respiration 12 Pulse 88 Pulse Source NIBP Temp 98.0 F Temp Source Oral Pulse Oximetry (%) 97 Oxygen Delivery Method room air Intake Visit Reasons: SORE THROAT Chief Complaint: fever, ST, cough, fatigue, SOB Allergies shellfish derived Allergy (Severe, Verified 06/04/24 08:07) throat swelling adhesive tape Adverse Reaction (Verified 06/04/24 08:07) Rash Have you fallen in the past year?: No [facility] Medical History Wears glasses Post-menopausal Cancer Depression Anxiety Alcohol use Thyroid disease Anemia Easy bruising Excessive bleeding Back pain TIA (transient ischemic attack) History of hiatal hernia History of ulceration History of IBS Gastric reflux Former smoker Shortness of breath on exertion History of echocardiogram Hypertension History of irregular heartbeat History of rheumatic fever LUQ pain 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 Epigastric abdominal pain Liver metastasis 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 Wears dentures Sleep apnea History of TIA (transient ischemic attack) History of thyroid disease Back pain Neck pain Severe headache Stomach ulcer History of cancer Arthritis History of hypertension Surgical History History of lumpectomy History of back surgery History of thyroid surgery Family History Mother Colon cancer passed from recurrence Thyroid disorder Father Hypertension CVA (cerebral vascular accident) Sister Breast cancer, Onset Age: 87 Aunt Colon cancer paternal Social History household members: spouse Smoking Status: Former smoker how long ago did patient quit smoking: >50 years ago; off and on for 2 years, socially only alcohol intake: current alcohol intake frequency: 0-2 drinks per day Alcohol type: wine details: socially substance use type: does not use additional social history: denies vaping, denies marijuana, denies edibles, denies aspirin and ibuprofen use HPI HPI Chief Complaint: fever, ST, cough, fatigue, SOB Details: DANETTE BISHOP, is a 79 F who presents to the office today for congestion, rhinitis, cough, and ST x3 weeks. Patient states she was previously evaluated at [facility] and was negative for all viral testing. She states that her initial cough resolved but she continues to experience a sore throat and nasal congestion. Patient endorses a medical history significant for metastatic liver cancer for which she follows with oncology. Patient was instructed by her oncologist to start pseudoephedrine and Afrin which she states has offered mild improvement. Patient denies contact with other individuals with similar symptoms. ROS Const Constitutional: No chills or fever(s) ENT ENT: Positive for ear or mastoid pain, nasal congestion, nasal discharge, post nasal drip and sore throat; No ear discharge, sinus pressure or sinus pain Resp Respiratory: Positive for cough; No chest congestion, excessive phlegm production, shortness of breath or wheezing Cardio Cardiology: No chest pain at rest, chest pain with exertion, dyspnea on exertion, irregular heart rhythm or palpitations Gastro GI: No abdominal pain, change in bowel habits, constipation, diarrhea, nausea/dyspepsia or vomiting Aller/Imm Allergy/Immunologic: No seasonal allergy symptoms or wheezing Exam Const General: cooperative and no acute distress HENMT Ears: external ears normal and TM's normal bilaterally Nose: nares normal, nasal mucous membranes and turbinates normal and no nasal discharge Face and sinus: sinuses nontender Mouth: oral mucosae normal Throat: posterior oropharynx normal Neck Lymphatic: no lymphadenopathy noted Resp Auscultation: Bilateral: Clear to Auscultation Cardio Rate: regular rate Rhythm: regular rhythm Heart Sounds: S1 normal and S2 normal Coding Level of Care Code Established Pt Off vis,est,level 3 Patient Type Established History Expanded Problem Focused Exam Expanded Problem Focused Medical Decision Making Moderate Complexity Diagnoses Protracted URI J06.9 Assessment and Plan Assessment and Plan (1) Protracted URI: Sta (more content not included)... Normal [facility] Ferritin [facility] 2024 Ferritin [Mass/Vol] 78.4 ng/mL Normal 14.7-205.1 [facility] Comment on above: Order Comment: Katrina li Type: BLOOD SPECIMENOrdering Facility: [facility] Address: [address] [place] [address] Performed By: #### 5 0190-8, 6-4 ####[facility] LABIA [id number] [place] [address] [place] Iron and Iron binding capaci [facility] Iron [Mass/Vol] 103 ug/dL Normal 41-186 [facility] Comment on above: Order Comment: Katrina li Type: BLOOD SPECIMENOrdering Facility: [facility] Address: [address] [place] [address] Performed By: #### 5 0190-8, 6-4 ####[facility] LABIA [id number] [place] [address] [place] Iron binding capacity [Mass/Vol] 322 ug/dL Normal 232-386 [facility] Comment on above: Order Comment: Katrina li Type: BLOOD SPECIMENOrdering Facility: [facility] Address: [address] [place] [address] Performed By: #### 5 0190-8, 2275-09 ####[facility] LABCLIA [id number] [place] [address] [place] Iron/TIBC [Molar ratio] 32.0 % Normal 15.0-57.0 [facility] Comment on above: Order Comment: Speci men Type: BLOOD SPECIMENOrdering Facility: [facility] Address: [address] [place] [address] Performed By: #### 5 0190-8, 2275-09 ####[facility] LABCLIA [id number] [place] [address] [place] CNOVSPon 06-21-2024 CNOVSP Normal [facility] CNPNon 06-21-2024 CNPN Normal [facility] CBC W Auto Differential pane l (Bld)on 06-19-2024 Basophils (Bld) [#/Vol] 0.09 10*3/uL [facility] Basophils/100 WBC (Bld) 1.1 % [facility] Differential cell count method Nom (Bld) Auto [facility] Eosinophils (Bld) [#/Vol] 0.10 10*3/uL [facility] Eosinophils/100 WBC (Bld) 1.2 % [facility] Erythrocyte distribution width (RBC) [Ratio] 15.1 % High 11.5 - 15.0 % [facility] Hematocrit (Bld) [Volume fraction] 35.2 % Low 36.0 - 46.0 % [facility] Hemoglobin (Bld) [Mass/Vol] 11.8 g/dL 11.5 - 15.5 g/dL [facility] Immature granulocytes (Bld) [#/Vol] [facility] Immature granulocytes/100 WBC (Bld) 0.2 % [facility] Interpretation and review of laboratory results Abnormal [facility] Lymphocytes (Bld) [#/Vol] 2.26 10*3/uL [facility] Lymphocytes/100 WBC (Bld) 27.7 % [facility] MCH (RBC) [Entitic mass] 29.6 pg 26.0 - 34.0 pg [facility] MCHC (RBC) [Mass/Vol] 33.5 g/dL 30.5 - 36.0 g/dL [facility] MCV (RBC) [Entitic vol] 88.2 fL 80.0 - 100.0 fL [facility] Monocytes (Bld) [#/Vol] 0.52 10*3/uL [facility] Monocytes/100 WBC (Bld) 6.4 % [facility] Neutrophils (Bld) [#/Vol] 5.18 10*3/uL [facility] Neutrophils/100 WBC (Bld) 63.4 % [facility] Nucleated RBC (Bld) [#/Vol] NINF [facility] Nucleated RBC/100 WBC (Bld) [Ratio] 0.0 % /100 WBC [facility] Platelet mean volume (Bld) [Entitic vol] 8.9 fL Low 9.0 - 12.7 fL [facility] Platelets (Bld) [#/Vol] 523 10*3/uL High [facility] RBC (Bld) [#/Vol] 3.99 10*6/uL 3.90 - 5.20 m/uL [facility] WBC (Bld) [#/Vol] 8.17 10*3/uL [facility] Basophils (Bld) [#/Vol] 0.09 10*3/uL Normal <0.11 [facility] Comment on above: Order Comment: Speci men Type: BLOOD SPECIMENOrdering Facility: [facility] Address: [address] [place] [address] Performed By: #### 5 7021-8 ####[facility] [id number] [place] [address] [place] Basophils/100 WBC (Bld) 1.1 % Normal [facility] Comment on above: Order Comment: Speci men Type: BLOOD SPECIMENOrdering Facility: [facility] Address: [address] [place] [address] Performed By: #### 5 7021-8 ####[facility] [id number] [place] [address] [place] Differential cell count method Nom (Bld) Auto Normal [facility] Comment on above: Order Comment: Speci men Type: BLOOD SPECIMENOrdering Facility: [facility] Address: [address] [place] [address] Performed By: #### 5 7021-8 ####[facility] MIAMIMAYNOR [id number] [place] [address] [place] Eosinophils (Bld) [#/Vol] 0.10 10*3/uL Normal <0.46 [facility] Comment on above: Order Comment: Speci men Type: BLOOD SPECIMENOrdering Facility: [facility] Address: [address] [place] [address] Performed By: #### 5 7021-8 ####[facility] [id number] [place] [address] [place] Eosinophils/100 WBC (Bld) 1.2 % Normal [facility] Comment on above: Order Comment: Speci men Type: BLOOD SPECIMENOrdering Facility: [facility] Address: [address] [place] [address] Performed By: #### 5 7021-8 ####[facility] MIAMINCA [id number] [place] [address] [place] Erythrocyte distribution width (RBC) [Ratio] 15.1 % High 11.5-15.0 [facility] Comment on above: Order Comment: Speci men Type: BLOOD SPECIMENOrdering Facility: [facility] Address: [address] [place] [address] Performed By: #### 5 7021-8 ####[facility] [id number] [place] [address] [place] Hematocrit (Bld) [Volume fraction] 35.2 % Low 36.0-46.0 [facility] Comment on above: Order Comment: Speci men Type: BLOOD SPECIMENOrdering Facility: [facility] Address: [address] [place] [address] Performed By: #### 5 7021-8 ####[facility] MILLWNCLIA [id number] [place] [address] [place] Hemoglobin (Bld) [Mass/Vol] 11.8 g/dL Normal 11.5-15.5 [facility] Comment on above: Order Comment: Speci men Type: BLOOD SPECIMENOrdering Facility: [facility] Address: [address] [place] [address] Performed By: #### 5 7021-8 ####[facility] CENTERWNELIA [id number] [place] [address] [place] Immature granulocytes (Bld) [#/Vol] 10*3/uL Normal <0.10 [facility] Comment on above: Order Comment: Speci men Type: BLOOD SPECIMENOrdering Facility: [facility] Address: [address] [place] [address] Performed By: #### 5 7021-8 ####[facility] DAYTONLIA [id number] [place] [address] [place] Immature granulocytes/100 WBC (Bld) 0.2 % Normal [facility] Comment on above: Order Comment: Speci men Type: BLOOD SPECIMENOrdering Facility: [facility] Address: [address] [place] [address] Performed By: #### 5 7021-8 ####[facility] DAYTONLIA [id number] [place] [address] [place] Lymphocytes (Bld) [#/Vol] 2.26 10*3/uL Normal 1.00-4.00 [facility] Comment on above: Order Comment: Speci men Type: BLOOD SPECIMENOrdering Facility: [facility] Address: [address] [place] [address] Performed By: #### 5 7021-8 ####[facility] MIAMINCLIA [id number] [place] [address] [place] Lymphocytes/100 WBC (Bld) 27.7 % Normal [facility] Comment on above: Order Comment: Speci men Type: BLOOD SPECIMENOrdering Facility: [facility] Address: [address] [place] [address] Performed By: #### 5 7021-8 ####[facility] [id number] [place] [address] [place] MCH (RBC) [Entitic mass] 29.6 pg Normal 26.0-34.0 [facility] Comment on above: Order Comment: Speci men Type: BLOOD SPECIMENOrdering Facility: [facility] Address: [address] [place] [address] Performed By: #### 5 7021-8 ####[facility] [id number] [place] [address] [place] MCHC (RBC) [Mass/Vol] 33.5 g/dL Normal 30.5-36.0 [facility] Comment on above: Order Comment: Speci men Type: BLOOD SPECIMENOrdering Facility: [facility] Address: [address] [place] [address] Performed By: #### 5 7021-8 ####[facility] [id number] [place] [address] [place] MCV (RBC) [Entitic vol] 88.2 fL Normal 80.0-100.0 [facility] Comment on above: Order Comment: Speci men Type: BLOOD SPECIMENOrdering Facility: [facility] Address: [address] [place] [address] Performed By: #### 5 7021-8 ####[facility] [id number] [place] [address] [place] Monocytes (Bld) [#/Vol] 0.52 10*3/uL Normal <0.87 [facility] Comment on above: Order Comment: Speci men Type: BLOOD SPECIMENOrdering Facility: [facility] Address: [address] [place] [address] Performed By: #### 5 7021-8 ####[facility] HARDIKESTHERA [id number] [place] [address] [place] Monocytes/100 WBC (Bld) 6.4 % Normal [facility] Comment on above: Order Comment: Speci men Type: BLOOD SPECIMENOrdering Facility: [facility] Address: [address] [place] [address] Performed By: #### 5 7021-8 ####[facility]INCA [id number] [place] [address] [place] Neutrophils (Bld) [#/Vol] 5.18 10*3/uL Normal 1.45-7.50 [facility] Comment on above: Order Comment: Speci men Type: BLOOD SPECIMENOrdering Facility: [facility] Address: [address] [place] [address] Performed By: #### 5 7021-8 ####[facility] [id number] [place] [address] [place] Neutrophils/100 WBC (Bld) 63.4 % Normal [facility] Comment on above: Order Comment: Speci men Type: BLOOD SPECIMENOrdering Facility: [facility] Address: [address] [place] [address] Performed By: #### 5 7021-8 ####[facility] MIAMINCLIA [id number] [place] [address] [place] Nucleated RBC (Bld) [#/Vol] 10*3/uL Normal <0.01 [facility] Comment on above: Order Comment: Speci men Type: BLOOD SPECIMENOrdering Facility: [facility] Address: [address] [place] [address] Performed By: #### 5 7021-8 ####[facility] JOHNNIELIA [id number] [place] [address] [place] Nucleated RBC/100 WBC (Bld) [Ratio] 0.0 /100 WBC Normal [facility] Comment on above: Order Comment: Speci men Type: BLOOD SPECIMENOrdering Facility: [facility] Address: [address] [place] [address] Performed By: #### 5 7021-8 ####[facility] HARDIKKALONARAFFY [id number] [place] [address] [place] Platelet mean volume (Bld) [Entitic vol] 8.9 fL Low 9.0-12.7 [facility] Comment on above: Order Comment: Speci men Type: BLOOD SPECIMENOrdering Facility: [facility] Address: [address] [place] [address] Performed By: #### 5 7021-8 ####[facility] MIAMIJENNIFERJane [id number] [place] [address] [place] Platelets (Bld) [#/Vol] 523 10*3/uL High 150-400 [facility] Comment on above: Order Comment: Speci men Type: BLOOD SPECIMENOrdering Facility: [facility] Address: [address] [place] [address] Performed By: #### 5 7021-8 ####[facility] MIAMIMAYNORA [id number] [place] [address] [place] RBC (Bld) [#/Vol] 3.99 10*6/uL Normal 3.90-5.20 [facility] Comment on above: Order Comment: Speci men Type: BLOOD SPECIMENOrdering Facility: [facility] Address: [address] [place] [address] Performed By: #### 5 7021-8 ####[facility] MIAMINCLIA [id number] [place] WBC (Bld) [#/Vol] 8.17 10*3/uL Normal 3.70-11.00 [facility] Comment on above: Order Comment: Speci men Type: BLOOD SPECIMENOrdering Facility: [facility] Address: [address] [place] [address] Performed By: #### 5 7021-8 ####[facility] [id number] OF [facility] Comprehensive metabolic 2000 panelOrdered By: Zaida Rice on 06-19-2024 Albumin [Mass/Vol] 4.0 g/dL 3.9 - 4.9 g/dL [facility] ALP [Catalytic activity/Vol] 98 U/L 34 - 123 U/L [facility] ALT [Catalytic activity/Vol] 13 U/L 7 - 38 U/L [facility] Anion gap [Moles/Vol] 9 mmol/L 8 - 15 mmol/L [facility] AST [Catalytic activity/Vol] 13 U/L 13 - 35 U/L [facility] Bilirubin [Mass/Vol] 0.5 mg/dL 0.2 - 1 .3 mg/dL [facility] Calcium [Mass/Vol] 9.3 mg/dL 8.5 - 10. 2 mg/dL [facility] Chloride [Moles/Vol] 96 mmol/L Low 98 - 10 7 mmol/L [facility] CO2 [Moles/Vol] 26 mmol/L 22 - 30 mmol/L [facility] Creatinine [Mass/Vol] 0.64 mg/dL 0.58 - 0.96 mg/dL [facility] GFR/1.73 sq M.predicted among non-blacks MDRD (S/P/Bld) [Vol rate/Area] 90 mL/min/{1.73_m2} - PINF [facility] Comment on above: Estimated Glomerular Filtration Rate (eGFR) is calculated using the 202 CKD-EPI creatinine equation. This equation utilizes serum creatinine, sex, and age as parameters. The creatinine assay has traceable calibration to isotope dilution-mass spectrometry. Refer to KDIGO guidelines for clinical interpretation. In patients with unstable renal function, e.g. those with acute kidney injury, the eGFR may not accurately reflect actual GFR. Glucose [Mass/Vol] 94 mg/dL 74 - 99 mg/dL [facility] Comment on above: The [place] Diabete s Association (ADA) provides guidance for cutoff values for fasting glucose and random glucose. The ADA defines fasting as no caloric intake for at least 8 hours. Fasting plasma glucose results between 100 to 125 mg/dL indicate increased risk for diabetes (prediabetes). Fasting plasma glucose results greater than or equal to 126 mg/dL meet the criteria for diagnosis of diabetes. In the absence of unequivocal hyperglycemia, results should be confirmed by repeat testing. In a patient with classic symptoms of hyperglycemia or hyperglycemic crisis, random plasma glucose results greater than or equal to 200 mg/dL meet the criteria for diagnosis of diabetes. Reference: Standards of Medical Care in Diabetes 2016, [place] Diabetes Association. Diabetes Care. 2016.39(Suppl 1). Interpretation and review of laboratory results Abnormal [facility] Potassium [Moles/Vol] 4.4 mmol/L 3.7 - 5.1 mmol/L [facility] Protein [Mass/Vol] 7.0 g/dL 6.3 - 8.0 g/dL [facility] Sodium [Moles/Vol] 131 mmol/L Low 136 - 144 mmol/L [facility] Urea nitrogen [Mass/Vol] 17 mg/dL 7 - 21 mg/dL [facility] Comprehensive metabolic 2000 panelon 06-19-2024 Albumin [Mass/Vol] 4.0 g/dL Normal 3.9-4.9 [facility] Comment on above: Order Comment: Speci men Type: BLOOD SPECIMENOrdering Facility: [facility] Address: [address] [place] [address] Performed By: #### 2 4323-8 ####[facility] [id number] [place] [address] [place] ALP [Catalytic activity/Vol] 98 U/L Normal 34-123 [facility] Comment on above: Order Comment: Speci men Type: BLOOD SPECIMENOrdering Facility: [facility] Address: [address] [place] [address] Performed By: #### 2 4323-8 ####[facility] DAYTONLI [id number] [place] [address] [place] ALT [Catalytic activity/Vol] 13 U/L Normal 7-38 [facility] Comment on above: Order Comment: Speci men Type: BLOOD SPECIMENOrdering Facility: [facility] Address: [address] [place] [address] Performed By: #### 2 4323-8 ####[facility] JOI MILLTOWNCLIA [id number] [place] [address] [place] Anion gap [Moles/Vol] 9 mmol/L Normal 8-15 [facility] Comment on above: Order Comment: Speci men Type: BLOOD SPECIMENOrdering Facility: [facility] Address: [address] [place] [address] Performed By: #### 2 4323-8 ####[facility]ENTERWNCLIA [id number] [place] [address] [place] AST [Catalytic activity/Vol] 13 U/L Normal 13-35 [facility] Comment on above: Order Comment: Speci men Type: BLOOD SPECIMENOrdering Facility: [facility] Address: [address] [place] [address] Performed By: #### 2 4323-8 ####[facility] MIAMINCLIA [id number] [place] [address] [place] Bilirubin [Mass/Vol] 0.5 mg/dL Normal 0.2-1.3 [facility] Comment on above: Order Comment: Speci men Type: BLOOD SPECIMENOrdering Facility: [facility] Address: [address] [place] [address] Performed By: #### 2 4323-8 ####[facility] MILLWNCLIA [id number] [place] [address] [place] Calcium [Mass/Vol] 9.3 mg/dL Normal 8.5-10.2 [facility] Comment on above: Order Comment: Speci men Type: BLOOD SPECIMENOrdering Facility: [facility] Address: [address] [place] [address] Performed By: #### 2 4323-8 ####[facility] HARDIKKarleneNCLIA [id number] [place] [address] [place] Chloride [Moles/Vol] 96 mmol/L Low 98-107 [facility] Comment on above: Order Comment: Speci men Type: BLOOD SPECIMENOrdering Facility: [facility] Address: [address] [place] [address] Performed By: #### 2 4323-8 ####[facility] MI[facility]INCA [id number] [place] [address] [place] CO2 [Moles/Vol] 26 mmol/L Normal 22-30 [facility] Comment on above: Order Comment: Speci men Type: BLOOD SPECIMENOrdering Facility: [facility] Address: [address] [place] [address] Performed By: #### 2 4323-8 ####[facility] MI[facility]INCA [id number] [place] [address] [place] Creatinine [Mass/Vol] 0.64 mg/dL Normal 0.58-0.96 [facility] Comment on above: Order Comment: Speci men Type: BLOOD SPECIMENOrdering Facility: [facility] Address: [address] [place] [address] Performed By: #### 2 4323-8 ####[facility] MIAMINCLIA [id number] [place] [address] [place] Creatinine and Glomerular filtration rate.predicted panel (S/P/Bld) 90 mL/min/1.73m??? Normal >=60 [facility] Comment on above: Order Comment: Speci men Type: BLOOD SPECIMENOrdering Facility: [facility] Address: [address] [place] [address] Result Comment: Amina mated Glomerular Filtration Rate (eGFR) is calculated using the 2020 CKD-EPI creatinine equation. This equation utilizes serum creatinine, sex, and age as parameters. The creatinine assay has traceable calibration to isotope dilution-mass spectrometry. Refer to KDIGO guidelines for clinical interpretation. In patients with unstable renal function, e.g. those with acute kidney injury, the eGFR may not accurately reflect actual GFR. Performed By: #### 2 4323-8 ####[facility] [id number] [place] [address] [place] Glucose [Mass/Vol] 94 mg/dL Normal 74-99 [facility] Comment on above: Order Comment: Katrina li Type: BLOOD SPECIMENOrdering Facility: [facility] Address: [address] [place] [address] Result Comment: The [place] Diabetes Association (ADA) provides guidance for cutoff values for fasting glucose and random glucose. The ADA defines fasting as no caloric intake for at least 8 hours. Fasting plasma glucose results between 100 to 125 mg/dL indicate increased risk for diabetes (prediabetes).Fasting plasma glucose results greater than or equal to 126 mg/dL meet the criteria for diagnosis of diabetes. In the absence of unequivocal hyperglycemia, results should be confirmed by repeat testing. In a patient with classic symptoms of hyperglycemia or hyperglycemic crisis, random plasma glucose results greater than or equal to 200 mg/dL meet the criteria for diagnosis of diabetes.Reference: Standards of Medical Care in Diabetes 2016, [place] Diabetes Association. Diabetes Care. 2016.39(Suppl 1). Performed By: #### 2 4323-8 ####[facility] [id number] [place] [address] [place] Potassium [Moles/Vol] 4.4 mmol/L Normal 3.7-5.1 [facility] Comment on above: Order Comment: Katrina li Type: BLOOD SPECIMENOrdering Facility: [facility] Address: [address] [place] [address] Performed By: #### 2 4323-8 ####[facility] [id number] [place] [address] [place] Protein [Mass/Vol] 7.0 g/dL Normal 6.3-8.0 [facility] Comment on above: Order Comment: Speci men Type: BLOOD SPECIMENOrdering Facility: [facility] Address: [address] [place] [address] Performed By: #### 2 4323-8 ####[facility] [id number] [place] [address] [place] Sodium [Moles/Vol] 131 mmol/L Low 136-144 [facility] Comment on above: Order Comment: Speci men Type: BLOOD SPECIMENOrdering Facility: [facility] Address: [address] [place] [address] Performed By: #### 2 4323-8 ####[facility] [id number] [place] [address] [place] Urea nitrogen [Mass/Vol] 17 mg/dL Normal 7-21 [facility] Comment on above: Order Comment: Speci men Type: BLOOD SPECIMENOrdering Facility: [facility] Address: [address] [place] [address] Performed By: #### 2 4323-8 ####[facility] [id number] [place] [address] [place] 12 Lead EKGon 06-04-2024 12 Lead EKG [facility] Cardiovascular Services [address] [place] [address] 12 Lead EKG 06/04/24 0858 MR#: [id number] Acct: [id number] Name: DANETTE BISHOP Rep #: [id number] : 1945 79 From: Max Kang MD Attending Dr: Status: DEP ER Ordering Dr: Kristofer Hernandez DO Date: 06/04/24 Location: ED Sex: F C Admitted: Test Reason : CP Blood Pressure : */* mmHG Vent. Rate : 79 BPM Atrial Rate : 79 BPM P-R Int : 138 ms QRS Dur : 90 ms QT Int : 384 ms P-R-T Axes : 6 26 11 degrees QTcB Int : 440 ms Normal sinus rhythm Normal ECG Confirmed by MAX KANG MD ([id number]), television news video editor EDELMIRA FISHER ([id number]) on 06/05/2024 7:55:57 AM Referred By: Confirmed By: MAX KANG MD 06/05/24 0756 Date Max Kang MD CC: Dr. Tami Chang MD; Dr. Kristofer Hernandez DO Signed Normal [facility] Absolute neutrophil countOrd ered By: Kristofer Hernandez on 06-04-2024 Neutrophils (Bld) [#/Vol] 7.9 10*3/uL High 2.0-7.7 [facility] Basic Metabolic Profile (BMP )on 06-04-2024 BUN/CRE 17.1 RATIO Normal 10-20 [facility] Comment on above: Order Comment: 'TROP ' Serial specimen #1, #2 or #3: 1 Performed By: #### L 100.0100, L500.2500, L300.8000, L501.4020 #### [facility] Laboratory [address] [place], [address] CA,Total 8.7 mg/dL Normal 8.5-10.1 [facility] Comment on above: Order Comment: 'TROP ' Serial specimen #1, #2 or #3: 1 Performed By: #### L 100.0100, L500.2500, L300.8000, L501.4020 #### [facility] Laboratory [address] [place], [address] Chloride [Moles/Vol] 102 mmol/L Normal 98-107 [facility] Comment on above: Order Comment: 'TROP ' Serial specimen #1, #2 or #3: 1 Performed By: #### L 100.0100, L500.2500, L300.8000, L501.4020 #### [facility] Laboratory [address] [place], [address] CO2 [Moles/Vol] 23.0 mmol/L Normal 21.0-32.0 [facility] Comment on above: Order Comment: 'TROP ' Serial specimen #1, #2 or #3: 1 Performed By: #### L 100.0100, L500.2500, L300.8000, L501.4020 #### [facility] Laboratory [address] [place], [address] Creatinine [Mass/Vol] 0.70 mg/dL Normal 0.55-1.02 [facility] Comment on above: Order Comment: 'TROP ' Serial specimen #1, #2 or #3: 1 Result Comment: The validity of the calculated GFR GFRAA in patients over 70 years has not been determined. Clinical correlation is essential. Performed By: #### L 100.0100, L500.2500, L300.8000, L501.4020 #### [facility] Laboratory [address] [place], [address] ECRCL 50.64 ml/min Normal [facility] Comment on above: Order Comment: 'TROP ' Serial specimen #1, #2 or #3: 1 Performed By: #### L 100.0100, L500.2500, L300.8000, L501.4020 #### [facility] [address] [place], [address] EST GFR - AA 104 mL/min Normal >60 [facility] Comment on above: Order Comment: 'TROP ' Serial specimen #1, #2 or #3: 1 Result Comment: Afri can Citizen [place] GFR Calc Performed By: #### L 100.0100, L500.2500, L300.8000, L501.4020 #### [facility] [address] [place], [address] GAP 9 Normal 5-15 [facility] Comment on above: Order Comment: 'TROP ' Serial specimen #1, #2 or #3: 1 Performed By: #### L 100.0100, L500.2500, L300.8000, L501.4020 #### [facility] [address] [place], [address] GFR/1.73 sq M.predicted among non-blacks MDRD (S/P/Bld) [Vol rate/Area] 86 mL/min/{1.73_m2} Normal >60 [facility] Comment on above: Order Comment: 'TROP ' Serial specimen #1, #2 or #3: 1 Result Comment: Non- GFR Calc Performed By: #### L 100.0100, L500.2500, L300.8000, L501.4020 #### [facility] [address] [place], [address] Glucose [Mass/Vol] 120 mg/dL High 74-106 [facility] Comment on above: Order Comment: 'TROP ' Serial specimen #1, #2 or #3: 1 Result Comment: Fast ing Glucose result from 100 to 125 mg/dL suggests IMPAIRED HOMEOSTASIS per A.D.A. criteria. Performed By: #### L 100.0100, L500.2500, L300.8000, L501.4020 #### [facility] [address] [place], [address] Potassium [Moles/Vol] 3.5 mmol/L Normal 3.5-5.1 [facility] Comment on above: Order Comment: 'TROP ' Serial specimen #1, #2 or #3: 1 Performed By: #### L 100.0100, L500.2500, L300.8000, L501.4020 #### [facility] [address] [place], [address] Sodium [Moles/Vol] 134 mmol/L Low 136-145 [facility] Comment on above: Order Comment: 'TROP ' Serial specimen #1, #2 or #3: 1 Performed By: #### L 100.0100, L500.2500, L300.8000, L501.4020 #### [facility] [address] [place], [address] Urea nitrogen [Mass/Vol] 12 mg/dL Normal 7-18 [facility] Comment on above: Order Comment: 'TROP ' Serial specimen #1, #2 or #3: 1 Performed By: #### L 100.0100, L500.2500, L300.8000, L501.4020 #### [facility] [address] [place], [address] Basophil percentageOrdered B y: Kristofer Hernandez on 06-04-2024 Basophils/100 WBC (Bld) 0.7 % 0-1 [facility] Blood urea nitrogen (BUN)/cr eatinine ratioOrdered By: Kristofer Hernandez on 06-04-2024 Urea nitrogen/Creatinine [Mass ratio] 17.1 mg/mg 10- [facility] CBC W/Diff, Automatedon 12- 0-2023 Absolute Lymph 1.54 X10 3/uL Normal 0.83-4.51 [facility] Comment on above: Performed By: #### L 100.0100, L500.2500, L300.8000, L501.4020 #### [facility] Laboratory [address] [place], [address] Absolute Neut 7.9 X10 3/uL High 2.0-7.7 [facility] Comment on above: Performed By: #### L 100.0100, L500.2500, L300.8000, L501.4020 #### [facility] Laboratory [address] [place], [address] Basophils/100 WBC (Bld) 0.7 % Normal 0-1 [facility] Comment on above: Performed By: #### L 100.0100, L500.2500, L300.8000, L501.4020 #### [facility] Laboratory [address] [place], [address] Eosinophils/100 WBC (Bld) 1.3 % Normal 0-5 [facility] Comment on above: Performed By: #### L 100.0100, L500.2500, L300.8000, L501.4020 #### [facility] Laboratory [address] [place], [address] Erythrocyte distribution width (RBC) [Ratio] 15.0 % High 11.6-14.6 [facility] Comment on above: Performed By: #### L 100.0100, L500.2500, L300.8000, L501.4020 #### [facility] Laboratory [address] [place], [address] Hematocrit (Bld) [Volume fraction] 34.9 % Low 37-47 [facility] Comment on above: Performed By: #### L 100.0100, L500.2500, L300.8000, L501.4020 #### [facility] [address] [place], [address] Hemoglobin (Bld) [Mass/Vol] 11.6 g/dL Low 12.0-15.0 [facility] Comment on above: Performed By: #### L 100.0100, L500.2500, L300.8000, L501.4020 #### [facility] [address] [place], [address] IG% 0.500 Normal 0.0-0.9 [facility] Comment on above: Result Comment: IG% - Immature Granulocytes (promyelocytes, myelocytes and metamyelocytes) > 1% indicates that a LEFT SHIFT is Present. Performed By: #### L 100.0100, L500.2500, L300.8000, L501.4020 #### [facility] [address] [place], [address] Lymphocytes/100 WBC (Bld) 14.8 % Low 19-41 [facility] Comment on above: Performed By: #### L 100.0100, L500.2500, L300.8000, L501.4020 #### [facility] [address] [place], [address] MCH (RBC) [Entitic mass] 29.4 pg Normal 27.0-32.0 [facility] Comment on above: Performed By: #### L 100.0100, L500.2500, L300.8000, L501.4020 #### [facility] [address] [place], [address] MCHC (RBC) [Mass/Vol] 33.2 g/dL Normal 32-36 [facility] Comment on above: Performed By: #### L 100.0100, L500.2500, L300.8000, L501.4020 #### [facility] [address] [place], [address] MCV (RBC) [Entitic vol] 88.6 fL Normal 81-99 [facility] Comment on above: Performed By: #### L 100.0100, L500.2500, L300.8000, L501.4020 #### [facility] Laboratory [address] [place], [address] Monocytes/100 WBC (Bld) 6.4 % Normal 0-10 [facility] Comment on above: Performed By: #### L 100.0100, L500.2500, L300.8000, L501.4020 #### [facility] [address] [place], [address] Neutrophils/100 WBC (Bld) 76.3 % High 47-70 [facility] Comment on above: Performed By: #### L 100.0100, L500.2500, L300.8000, L501.4020 #### [facility] [address] [place], [address] Nucleated RBC (Bld) [#/Vol] 0 10*3/uL Normal 0-5 [facility] Comment on above: Performed By: #### L 100.0100, L500.2500, L300.8000, L501.4020 #### [facility] [address] [place], [address] Platelet mean volume (Bld) [Entitic vol] 9.4 fL Normal 6.2-12.0 [facility] Comment on above: Performed By: #### L 100.0100, L500.2500, L300.8000, L501.4020 #### [facility] Laboratory [address] [place], [address] Platelets (Bld) [#/Vol] 361 10*3/uL Normal 150-450 [facility] Comment on above: Performed By: #### L 100.0100, L500.2500, L300.8000, L501.4020 #### [facility] [address] [place], [address] RBC (Bld) [#/Vol] 3.94 10*6/uL Low 4.2-5.4 [facility] Comment on above: Performed By: #### L 100.0100, L500.2500, L300.8000, L501.4020 #### [facility] [address] [place], [address] RDW SD 48.9 fl High 35.1-43.9 [facility] Comment on above: Performed By: #### L 100.0100, L500.2500, L300.8000, L501.4020 #### [facility] [address] [place], [address] WBC (Bld) [#/Vol] 10.4 10*3/uL Normal 4.4-11.0 [facility] Comment on above: Performed By: #### L 100.0100, L500.2500, L300.8000, L501.4020 #### [facility] Laboratory [address] [place], [address] Carbon dioxide measurementOr dered By: Kristofer Hernandez on 06-04-2024 CO2 [Moles/Vol] 23.0 mmol/L 21.0-32.0 [facility] Chest 1 View (Portable)on Chest 1 View (Portable) [facility] Imaging Services [address] [place] [address] Chest 1 View (Portable) MR#: [id number] Acct: [id number] Name: DANETTE BISHOP Rep #: [id number] : 1945 F 79 From: Favio omer MD PCP: Dr. Tami Chang MD Status: DEP ER Study: Chest 1 View (Portable) Date of Exam: 06/04/24 Exam# [id number] Ordering Dr: Kristofer Hernandez DO :[id number] STUDY: X-RAY CHEST REASON FOR EXAM: Female, 79 years old. chest pain CHEST PAIN, COLD SYMPTOMS TECHNIQUE: Single AP portable view of the chest. COMPARISON: CT of the chest dated May 25, 2021 FINDINGS: COPD/emphysematous changes. Stable right chest port and catheter. Redemonstration of mild scattered interstitial fibrotic changes of the lungs. There is no demonstrated pleural abnormality. Normal size heart. Normal mediastinum and maurice. Normal visualized pulmonary arteries. There is atherosclerotic tortuosity of the aortic arch and descending thoracic aorta. There are diffuse degenerative changes of the visualized thoracic spine. There is degenerative osteoarthritis of the bilateral shoulders. There is no demonstrated abnormality of the visualized soft tissue structures of the upper abdomen. RAD/Chest 1 View (Portable) IMPRESSION: COPD/emphysema Electronically Signed: Favio Gerber MD at 10:45 EST , CC: Dr. Tami Chang MD; Dr. Kristofer Hernandez DO Home Care Liaison: Signed Normal [facility] Chloride measurementOrdered By: Kristofer Hernandez on 06-04-2024 Chloride [Moles/Vol] 102 mmol/L 98-107 [facility] D-Dimer Quantitative (DVT/PE )on 06-04-2024 D-DIMER QUANT 0.48 FEU/ug/m Normal 0.27-0.49 [facility] Comment on above: Result Comment: NORM AL D-Dimer level (<0.50) indicates no DVT or PE. Performed By: #### L 100.0100, L500.2500, L300.8000, L501.4020 #### [facility] Laboratory [address] [place], [address] D-dimer measurement for deep venous thrombosisOrdered By: Kristofer Hernandez on 06-04-2024 D-Dimer Quantitative (PE/DVT) 0.48 FEU/ug/m 0.27-0.49 [facility] Comment on above: NORMAL D-Dimer level (<0.50) indicates no DVT or PE. Emergency Department Summary on 06-04-2024 Emergency Department Summary [facility] Medical Records Department [address] [place] [address] Emergency Department Summary 06/04/24 MR#: [id number] Acct: [id number] Name: DANETTE BIHSOP Rep #: [id number] : 1945 79 From: Kristofer Hernandez DO PCP: Dr. Tami Chang MD Status:DEP ER Location: ED HPI History of Present Illness Chief Complaint: Chest Pain Informant: patient, spouse/S.O. and family Narrative Narrative: Very pleasant 79-year-old female presenting to the emergency department for the evaluation of chest pain. Patient notes over the past several days she has had a cold associated with cough. She was seen at the [facility] clinic and COVID influenza RSV testing was negative. Patient notes some low-grade temperatures. Patient states that yesterday she developed the pain in the right mid back radiating towards the right anterior chest wall. It is worse with certain movements and with touch. She does not feel short of breath. Patient with a history of left breast cancer with liver metastasis. She has a right-sided chest port. [facility] Medical History Wears glasses Post-menopausal Cancer Depression Anxiety Alcohol use Thyroid disease Anemia Easy bruising Excessive bleeding Back pain TIA (transient ischemic attack) History of hiatal hernia History of ulceration History of IBS Gastric reflux Former smoker Shortness of breath on exertion History of echocardiogram Hypertension History of irregular heartbeat History of rheumatic fever LUQ pain 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 Epigastric abdominal pain Liver metastasis 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 Wears dentures Sleep apnea History of TIA (transient ischemic attack) History of thyroid disease Back pain Neck pain Severe headache Stomach ulcer History of cancer Arthritis History of hypertension Home Medications ???Medication ???Instructions ???Recorded ???Last Taken ???Type fluoxetine 40 mg capsule 40 mg PO QDAY 06/16/17 Unknown History lisinopril 20 mg tablet 20 mg PO DAILY 09/25/20 05/23/24 History levothyroxine 125 mcg tablet 112 mcg PO DAILY 30 days #27 tabs 06/11/21 05/23/24 History hydrocodone-acetaminophen 5-325mg 1 tab PO Q6H PRN pain 07/16/22 Unknown History 5mg-325mg alprazolam 0.5 mg tablet 0.5 mg PO DAILY PRN anxiety 07/21/22 Unknown History letrozole 2.5 mg tablet 2.5 mg PO QDAY 02/16/24 05/23/24 History fhpsgtkf-wenwbplcc-lmcppxyd 3.5 1 drp ophthalmic (eye) DAILY 02/16/24 Unknown History mg/mL-10,000 unit/mL-0.1% eye drops amlodipine 5 mg tablet 5 mg PO QDAY 04/30/24 Unknown History clopidogrel 75 mg tablet 75 mg PO QDAY 04/30/24 05/17/24 History esomeprazole magnesium 20 mg 20 mg PO QDAY 04/30/24 05/17/24 History capsule,delayed release (Nexium) sennosides 8.6 mg tablet (Senokot) 8.6 mg PO DAILY PRN constipation 04/30/24 Unknown History liothyronine 5 mcg tablet 5 mcg PO DAILY 05/21/24 05/23/24 History zolpidem 10 mg tablet 10 mg PO QHS 05/21/24 Unknown History Allergy/AdvReac Type Severity Reaction Status Date / Time shellfish derived Allergy Severe throat Verified 06/04/24 08:07 swelling adhesive tape AdvReac Rash Verified 06/04/24 08:07 Family History Mother Colon cancer passed from recurrence Thyroid disorder Father Hypertension CVA (cerebral vascular accident) Sister Breast cancer, Onset Age: 87 Aunt Colon cancer paternal Surgical History History of lumpectomy History of back surgery History of thyroid surgery Social History household members: spouse Smoking Status: Former smoker how long ago did patient quit smoking: >50 years ago; off and on for 2 years, socially only alcohol intake: current alcohol intake frequency: 0-2 drinks per day Alcohol type: wine details: socially substance use type: does not use additional social history: denies vaping, denies marijuana, denies edibles, denies aspirin and ibuprofen use ROS ROS ED Constitutional Constitutional ED: Denies chills or weight loss Eyes Eyes: Denies change in vision or diplopia ENT ENT ED: Reports rhinorrhea and sore throat; Denies ear pain Cardiovascular Cardiovascular: Reports as per HPI and chest pain; Denies orthopnea, palpitations or racing heartbeat Respiratory/Chest Respiratory/Chest: Reports cough; Denies dyspnea or orthopnea Gastrointestinal Gastrointestinal: Denies abdominal pain, diarrhea, nausea or vomiting Genitourinary Genitourinary ED: Denies dysuria, hematuria or urinary frequency Musculoskeletal Musculoskeletal: Reports back pain; Denies arthralgias or myalgias Integumentar (more content not included)... Normal [facility] Eosinophil percentageOrdered By: Kristofer Hernandez on 06-04-2024 Eosinophils/100 WBC (Bld) 1.3 % 0-5 [facility] Erythrocyte distribution wid th ratioOrdered By: Kristofer Hernandez on 06-04-2024 Erythrocyte distribution width (RBC) [Ratio] 15.0 % High 11.6-14.6 [facility] Erythrocyte distribution wid th standard deviationOrdered By: Kristofer Hernandez on 06-04-2024 Erythrocyte distribution width (RBC) [Entitic vol] 48.9 fL High 35.1-43.9 [facility] Estimated glomerular filtrat ion rate (GFR) AmericanOrdered By: Kristofer Hernandez on 06-04-2024 Estimated GFR (MDRD) Amer 104 mL/min >60 [facility] Comment on above: GFR Calc Estimation of creatinine sergey aranceOrdered By: Kristofer Hernandez on 06-04-2024 Estimated Creatinine Clearance Calc 50.64 ml/min [facility] Glomerular filtration rate ( GFR) estimationOrdered By: Kristofer Hernandez on 06-04-2024 Estimated GFR (MDRD) Non-Af Amer 86 mL/min >60 [facility] Comment on above: Non- GFR Calc Glucose measurementOrdered B y: Kristofer Hernandez on 06-04-2024 Glucose [Mass/Vol] 120 mg/dL High 74-106 [facility] Comment on above: Fasting Glucose resu lt from 100 to 125 mg/dL suggests IMPAIRED HOMEOSTASIS per A.D.A. criteria. Hematocrit Auto (Bld) [Volum e fraction]Ordered By: Kristofer Hernandez on 06-04-2024 Hematocrit (Bld) [Volume fraction] 34.9 % Low 37-47 [facility] Hemoglobin measurementOrdere d By: Kristofer Hernandez on 06-04-2024 Hemoglobin (Bld) [Mass/Vol] 11.6 g/dL Low 12.0-15.0 [facility] Immature granulocytes/100 WB C Auto (Bld)Ordered By: Kristofer Hernandez on 06-04-2024 Immature granulocytes/100 WBC (Bld) 0.500 % 0.0-0.9 [facility] Comment on above: IG% - Immature Granu locytes (promyelocytes, myelocytes and metamyelocytes) > 1% indicates that a LEFT SHIFT is Present. L501.4020on 06-04-2024 TROPONIN-I HS 5 pg/mL Normal 3.0-54.0 [facility] Comment on above: Order Comment: 'TROP ' Serial specimen #1, #2 or #3: 1 Result Comment: Rocky valiente Note: New Test Units and Gender Specific Reference Ranges. For more information see Policy Stat Procedure [place] High Sensitivity Troponin (TNIH) and attachments. Performed By: #### L 100.0100, L500.2500, L300.8000, L501.4020 #### [facility] Laboratory [address] [place], [address] Lymphocytes Auto (Unsp spec) [#/Vol]Ordered By: Kristofer Hernandez on 06-04-2024 Lymphocytes (Bld) [#/Vol] 1.54 10*3/uL 0.83-4.51 [facility] Lymphocytes/100 WBC Auto (Un sp spec)Ordered By: Kristofer Hernandez on 06-04-2024 Lymphocytes/100 WBC (Bld) 14.8 % Low 19-41 [facility] MCV (mean corpuscular volume ) determinationOrdered By: Kristofer Hernandez on 06-04-2024 MCV (RBC) [Entitic vol] 88.6 fL 81-99 [facility] Mean corpuscular hemoglobin (MCH) determinationOrdered By: Kristofer Hernandez on 06-04-2024 MCH (RBC) [Entitic mass] 29.4 pg 27.0-32.0 [facility] Mean corpuscular hemoglobin concentration (MCHC) determinationOrdered By: Kristofer Hernandez on 06-04-2024 MCHC (RBC) [Mass/Vol] 33.2 g/dL 32-36 [facility] Mean platelet volume determi nationOrdered By: Kristofer Hernandez on 06-04-2024 Platelet mean volume (Bld) [Entitic vol] 9.4 fL 6.2-12.0 [facility] Monocyte percentageOrdered B y: Kristofer Hernandez on 06-04-2024 Monocytes/100 WBC (Bld) 6.4 % 0-10 [facility] Neutrophil percentageOrdered By: Kristofer Hernandez on 06-04-2024 Neutrophils/100 WBC (Bld) 76.3 % High 47-70 [facility] Nucleated red blood cell per centageOrdered By: Kristofer Hernandez on 06-04-2024 Nucleated RBC/100 WBC (Bld) [Ratio] 0 % 0-5 [facility] Platelet countOrdered By: Bryan Hernandez on 06-04-2024 Platelets (Bld) [#/Vol] 361 10*3/uL 150-450 [facility] Potassium measurementOrdered By: Kristofer Hernandez on 06-04-2024 Potassium [Moles/Vol] 3.5 mmol/L 3.5-5.1 [facility] RBC Auto (Bld) [#/Vol]Ordere d By: Kristofer Hernandez on 06-04-2024 RBC (Bld) [#/Vol] 3.94 10*6/uL Low 4.2-5.4 [facility] Serum anion gap measurementO rdered By: Kristofer Hernandez on 06-04-2024 Anion gap [Moles/Vol] 9 mmol/L 5-15 [facility] Serum or plasma calcium agnieszka urement (mass/volume)Ordered By: Kristofer Hernandez on 06-04-2024 Calcium [Mass/Vol] 8.7 mg/dL 8.5-10.1 [facility] Serum or plasma creatinine m easurement (mass/volume)Ordered By: Kristofer Hernandez on 06-04-2024 Creatinine [Mass/Vol] 0.70 mg/dL 0.55-1.02 [facility] Comment on above: The validity of the calculated GFR & GFRAA in patients over 70 years has not been determined. Clinical correlation is essential. Serum or plasma urea nitroge n measurement (mass/volume)Ordered By: Kristofer Hernandez on 06-04-2024 Urea nitrogen [Mass/Vol] 12 mg/dL 7-18 [facility] Sodium levelOrdered By: Shady Hernandez on 06-04-2024 Sodium [Moles/Vol] 134 mmol/L Low 136-145 [facility] Troponin IOrdered By: Kristofer Hernandez on 06-04-2024 Troponin I High Sensitivity 5 pg/mL 3.0-54.0 [facility] Comment on above: Please Note: New Dorothy t Units and Gender Specific Reference Ranges. For more information see Policy Stat Procedure [place] High Sensitivity Troponin (TNIH) and attachments. White blood cell (WBC) count Ordered By: Kristofer Hernandez on 06-04-2024 WBC (Bld) [#/Vol] 10.4 10*3/uL 4.4-11.0 [facility] No Panel Informationon 06-02 Influenza Types A,B Rapid (Clinic) Negative [facility] POC SARS CoV-2 Antigen Negative [facility] Urgent Care Visit Reporton 1 08-03-2023 Ur[address] Report [facility] [address], [address] [place] [address] OFFICE VISIT Date of Service: 06/02/24 MR#: [id number] Acct: [id number] Name: DANETTE BISHOP Rep #: [id number] : 1945 Provider: TYLER Guillen Age/Sex: 79/F Location: [facility] Status: Signed Intake Vital Signs 05/23/24 12:40 06/02/24 10:35 Height 5 ft 1 in BP 130/60 H Blood Pressure Location Rt brachial Position Sitting Respiration 16 Pulse 88 Pulse Source NIBP Temp 98.4 F Temp Source Oral Pulse Oximetry (%) 96 Oxygen Delivery Method room air Intake Visit Reasons: FEVER, SORE THROAT, COUGH Chief Complaint: fever, ST, cough, fatigue, SOB Medical 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 Required: No Is patient in pain?: No Allergies shellfish derived Allergy (Severe, Verified 06/02/24 10:45) throat swelling adhesive tape Adverse Reaction (Verified 06/02/24 10:45) Rash Medications ???Medication ???Instructions ???Recorded ???Confirmed ???Type fluoxetine 40 mg capsule 40 mg PO QDAY 06/16/17 06/02/24 History lisinopril 20 mg tablet 20 mg PO DAILY 09/25/20 06/02/24 History levothyroxine 125 mcg tablet 112 mcg PO DAILY 30 days #27 tabs 06/11/21 06/02/24 History hydrocodone-acetaminophen 5-325mg 1 tab PO Q6H PRN pain 07/16/22 06/02/24 History 5mg-325mg alprazolam 0.5 mg tablet 0.5 mg PO DAILY PRN anxiety 07/21/22 06/02/24 History letrozole 2.5 mg tablet 2.5 mg PO QDAY 02/16/24 06/02/24 History vhvthgmf-ugzzmhdtn-hksvyjaz 3.5 1 drp ophthalmic (eye) DAILY 02/16/24 06/02/24 History mg/mL-10,000 unit/mL-0.1% eye drops amlodipine 5 mg tablet 5 mg PO QDAY 04/30/24 06/02/24 History clopidogrel 75 mg tablet 75 mg PO QDAY 04/30/24 06/02/24 History esomeprazole magnesium 20 mg 20 mg PO QDAY 04/30/24 06/02/24 History capsule,delayed release (Nexium) sennosides 8.6 mg tablet (Senokot) 8.6 mg PO DAILY PRN constipation 04/30/24 06/02/24 History liothyronine 5 mcg tablet 5 mcg PO DAILY 05/21/24 06/02/24 History zolpidem 10 mg tablet 10 mg PO QHS 05/21/24 06/02/24 History Is last menstrual period known: No Post menopausal: Yes Patient : No Have you fallen in the past year?: No Nurse's Note: fever, ST, cough, fatigue, SOB x 3 days. collinies GEORGINA ROMERO [facility] Medical History Wears glasses Post-menopausal Cancer Depression Anxiety Alcohol use Thyroid disease Anemia Easy bruising Excessive bleeding Back pain TIA (transient ischemic attack) History of hiatal hernia History of ulceration History of IBS Gastric reflux Former smoker Shortness of breath on exertion History of echocardiogram Hypertension History of irregular heartbeat History of rheumatic fever LUQ pain 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 Epigastric abdominal pain Liver metastasis 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 Wears dentures Sleep apnea History of TIA (transient ischemic attack) History of thyroid disease Back pain Neck pain Severe headache Stomach ulcer History of cancer Arthritis History of hypertension Surgical History History of lumpectomy History of back surgery History of thyroid surgery Family History Mother Colon cancer passed from recurrence Thyroid disorder Father Hypertension CVA (cerebral vascular accident) Sister Breast cancer, Onset Age: 87 Aunt Colon cancer paternal Social History household members: spouse Smoking Status: Former smoker how long ago did patient quit smoking: >50 years ago; off and on for 2 years, socially only alcohol intake: current alcohol intake frequency: 0-2 drinks per day Alcohol type: wine details: socially substance use type: does not use additional social history: denies vaping, denies marijuana, denies edibles, denies aspirin and ibuprofen use HPI HPI Chief Complaint: fever, ST, cough, fatigue, SOB Details: DANETTE BISHOP, is a 79 F who presents to the office today for cold sx -in office covid flu testing negative -sx started around noon -sx runny nose, cough- dry cough, ST, slight fever- 99 -getting sob with just sitting there and walking the dog- sob when wearing the mask- no resp distress -+ myalgias -tried so far Coricidin and tylenol ROS Const Constitutional: Positive for other (ROS negative x6 except what was placed in HPI) Exam Const General: cooperative, comfortable and no acute distress Orientation: alert, awake and oriented x3 HENMT Head: normal to inspection and normocephalic Ears: hearing grossly normal bilaterally, external ears normal and TM's normal bilaterally Nose: external nose no (more content not included)... Normal [facility] CBC W Auto Differential pane l (Bld)on 05-29-2024 Basophils (Bld) [#/Vol] 0.09 10*3/uL [facility] Basophils/100 WBC (Bld) 1.6 % [facility] Differential cell count method Nom (Bld) Auto [facility] Eosinophils (Bld) [#/Vol] 0.16 10*3/uL [facility] Eosinophils/100 WBC (Bld) 2.9 % [facility] Erythrocyte distribution width (RBC) [Ratio] 14.8 % 11.5 - 15.0 % [facility] Hematocrit (Bld) [Volume fraction] 34.4 % Low 36.0 - 46.0 % [facility] Hemoglobin (Bld) [Mass/Vol] 11.5 g/dL 11.5 - 15.5 g/dL [facility] Immature granulocytes (Bld) [#/Vol] NINF [facility] Immature granulocytes/100 WBC (Bld) 0.2 % [facility] Interpretation and review of laboratory results Abnormal [facility] Lymphocytes (Bld) [#/Vol] 1.71 10*3/uL [facility] Lymphocytes/100 WBC (Bld) 30.5 % [facility] MCH (RBC) [Entitic mass] 29.5 pg 26.0 - 34.0 pg [facility] MCHC (RBC) [Mass/Vol] 33.4 g/dL 30.5 - 36.0 g/dL [facility] MCV (RBC) [Entitic vol] 88.2 fL 80.0 - 100.0 fL [facility] Monocytes (Bld) [#/Vol] 0.43 10*3/uL [facility] Monocytes/100 WBC (Bld) 7.7 % [facility] Neutrophils (Bld) [#/Vol] 3.21 10*3/uL [facility] Neutrophils/100 WBC (Bld) 57.1 % [facility] Nucleated RBC (Bld) [#/Vol] [facility] Nucleated RBC/100 WBC (Bld) [Ratio] 0.0 % /100 WBC [facility] Platelet mean volume (Bld) [Entitic vol] 9.4 fL 9.0 - 12.7 fL [facility] Platelets (Bld) [#/Vol] 336 10*3/uL [facility] RBC (Bld) [#/Vol] 3.90 10*6/uL 3.90 - 5.20 m/uL [facility] WBC (Bld) [#/Vol] 5.61 10*3/uL [facility] Basophils (Bld) [#/Vol] 0.09 10*3/uL Normal <0.11 [facility] Comment on above: Order Comment: Speci men Type: BLOOD SPECIMENOrdering Facility: [facility] Address: [address] [place] [address] Performed By: #### 5 7021-8 ####[facility] [id number] [place] [id number] [place] Basophils/100 WBC (Bld) 1.6 % Normal [facility] Comment on above: Order Comment: Speci men Type: BLOOD SPECIMENOrdering Facility: [facility] Address: [address] [place] [address] Performed By: #### 5 7021-8 ####[facility] ERNESTO [id number] [place] [address] [place] Differential cell count method Nom (Bld) Auto Normal [facility] Comment on above: Order Comment: Speci men Type: BLOOD SPECIMENOrdering Facility: [facility] Address: [address] [place] [address] Performed By: #### 5 7021-8 ####[facility] [id number] [place] [address] [place] Eosinophils (Bld) [#/Vol] 0.16 10*3/uL Normal <0.46 [facility] Comment on above: Order Comment: Speci men Type: BLOOD SPECIMENOrdering Facility: [facility] Address: [address] [place] [address] Performed By: #### 5 7021-8 ####[facility] MIAMINCLORENZOA [id number] [place] [address] [place] Eosinophils/100 WBC (Bld) 2.9 % Normal [facility] Comment on above: Order Comment: Speci men Type: BLOOD SPECIMENOrdering Facility: [facility] Address: [address] [place] [address] Performed By: #### 5 7021-8 ####[facility]INCL[facility] [id number] [place] [address] [place] Erythrocyte distribution width (RBC) [Ratio] 14.8 % Normal 11.5-15.0 [facility] Comment on above: Order Comment: Speci men Type: BLOOD SPECIMENOrdering Facility: [facility] Address: [address] [place] [address] Performed By: #### 5 7021-8 ####[facility]INCL[facility] [id number] [place] [address] [place] Hematocrit (Bld) [Volume fraction] 34.4 % Low 36.0-46.0 [facility] Comment on above: Order Comment: Speci men Type: BLOOD SPECIMENOrdering Facility: [facility] Address: [address] [place] [address] Performed By: #### 5 7021-8 ####[facility] MIAMIRAFFY [id number] [place] [address] [place] Hemoglobin (Bld) [Mass/Vol] 11.5 g/dL Normal 11.5-15.5 [facility] Comment on above: Order Comment: Speci men Type: BLOOD SPECIMENOrdering Facility: [facility] Address: [address] [place] [address] Performed By: #### 5 7021-8 ####[facility] [id number] [place] [address] [place] Immature granulocytes (Bld) [#/Vol] 10*3/uL Normal <0.10 [facility] Comment on above: Order Comment: Speci men Type: BLOOD SPECIMENOrdering Facility: [facility] Address: [address] [place] [address] Performed By: #### 5 7021-8 ####[facility]TONLIA [id number] [place] [address] [place] Immature granulocytes/100 WBC (Bld) 0.2 % Normal [facility] Comment on above: Order Comment: Speci men Type: BLOOD SPECIMENOrdering Facility: [facility] Address: [address] [place] [address] Performed By: #### 5 7021-8 ####[facility]INCL[facility] [id number] [place] [address] [place] Lymphocytes (Bld) [#/Vol] 1.71 10*3/uL Normal 1.00-4.00 [facility] Comment on above: Order Comment: Speci men Type: BLOOD SPECIMENOrdering Facility: [facility] Address: [address] [place] [address] Performed By: #### 5 7021-8 ####[facility] [id number] [place] [address] [place] Lymphocytes/100 WBC (Bld) 30.5 % Normal [facility] Comment on above: Order Comment: Speci men Type: BLOOD SPECIMENOrdering Facility: [facility] Address: [address] [place] [address] Performed By: #### 5 7021-8 ####[facility] [id number] [place] [address] [place] MCH (RBC) [Entitic mass] 29.5 pg Normal 26.0-34.0 [facility] Comment on above: Order Comment: Speci men Type: BLOOD SPECIMENOrdering Facility: [facility] Address: [address] [place] [address] Performed By: #### 5 7021-8 ####[facility] [id number] [place] [address] [place] MCHC (RBC) [Mass/Vol] 33.4 g/dL Normal 30.5-36.0 [facility] Comment on above: Order Comment: Speci men Type: BLOOD SPECIMENOrdering Facility: [facility] Address: [address] [place], [place] [id number] Performed By: #### 5 7021-8 ####[facility] [id number] [place] [address] [place] MCV (RBC) [Entitic vol] 88.2 fL Normal 80.0-100.0 [facility] Comment on above: Order Comment: Speci men Type: BLOOD SPECIMENOrdering Facility: [facility] Address: [address] [place] [address] Performed By: #### 5 7021-8 ####[facility] MILLTOWNCLIA [id number] [place] [address] [place] Monocytes (Bld) [#/Vol] 0.43 10*3/uL Normal <0.87 [facility] Comment on above: Order Comment: Speci men Type: BLOOD SPECIMENOrdering Facility: [facility] Address: [address] [place] [address] Performed By: #### 5 7021-8 ####[facility]INCL[facility] [id number] [place] [address] [place] Monocytes/100 WBC (Bld) 7.7 % Normal [facility] Comment on above: Order Comment: Speci men Type: BLOOD SPECIMENOrdering Facility: [facility] Address: [address] [place] [address] Performed By: #### 5 7021-8 ####[facility]TONLIA [id number] [place] [address] [place] Neutrophils (Bld) [#/Vol] 3.21 10*3/uL Normal 1.45-7.50 [facility] Comment on above: Order Comment: Speci men Type: BLOOD SPECIMENOrdering Facility: [facility] Address: [address] [place] [address] Performed By: #### 5 7021-8 ####[facility]ENTERWNCLIA [id number] [place] [address] [place] Neutrophils/100 WBC (Bld) 57.1 % Normal [facility] Comment on above: Order Comment: Speci men Type: BLOOD SPECIMENOrdering Facility: [facility] Address: [address] [place] [address] Performed By: #### 5 7021-8 ####[facility] [id number] [place] [address] [place] Nucleated RBC (Bld) [#/Vol] 10*3/uL Normal <0.01 [facility] Comment on above: Order Comment: Speci men Type: BLOOD SPECIMENOrdering Facility: [facility] Address: [address] [place] [address] Performed By: #### 5 7021-8 ####[facility] [id number] [place] [address] [place] Nucleated RBC/100 WBC (Bld) [Ratio] 0.0 /100 WBC Normal [facility] Comment on above: Order Comment: Speci men Type: BLOOD SPECIMENOrdering Facility: [facility] Address: [address] [place] [address] Performed By: #### 5 7021-8 ####[facility] [id number] [place] [address] [place] Platelet mean volume (Bld) [Entitic vol] 9.4 fL Normal 9.0-12.7 [facility] Comment on above: Order Comment: Speci men Type: BLOOD SPECIMENOrdering Facility: [facility] Address: [address] [place] [address] Performed By: #### 5 7021-8 ####[facility] [id number] [place] [address] [place] Platelets (Bld) [#/Vol] 336 10*3/uL Normal 150-400 [facility] Comment on above: Order Comment: Speci men Type: BLOOD SPECIMENOrdering Facility: [facility] Address: [address] [place] [address] Performed By: #### 5 7021-8 ####[facility]TONL[facility] [id number] [place] [address] [place] RBC (Bld) [#/Vol] 3.90 10*6/uL Normal 3.90-5.20 [facility] Comment on above: Order Comment: Speci men Type: BLOOD SPECIMENOrdering Facility: [facility] Address: [address] [place] [address] Performed By: #### 5 7021-8 ####[facility]AMINCL[facility] [id number] [address] WBC (Bld) [#/Vol] 5.61 10*3/uL Normal 3.70-11.00 [facility] Comment on above: Order Comment: Speci men Type: BLOOD SPECIMENOrdering Facility: [facility] Address: [address] [place] [address] Performed By: #### 5 7021-8 ####[facility]AMINCSHRIN[facility] [id number] [address] [place] Comprehensive metabolic 2000 panelOrdered By: Zaida Rice on 05-29-2024 Albumin [Mass/Vol] 4.1 g/dL 3.9 - 4.9 g/dL [facility] ALP [Catalytic activity/Vol] 81 U/L 34 - 123 U/L [facility] ALT [Catalytic activity/Vol] 10 U/L 7 - 38 U/L [facility] Anion gap [Moles/Vol] 9 mmol/L 8 - 15 mmol/L [facility] AST [Catalytic activity/Vol] 12 U/L Low 13 - 35 U/L [facility] Bilirubin [Mass/Vol] 0.4 mg/dL 0.2 - 1 .3 mg/dL [facility] Calcium [Mass/Vol] 9.1 mg/dL 8.5 - 10. 2 mg/dL [facility] Chloride [Moles/Vol] 101 mmol/L 98 - 10 7 mmol/L [facility] CO2 [Moles/Vol] 26 mmol/L 22 - 30 mmol/L [facility] Creatinine [Mass/Vol] 0.68 mg/dL 0.58 - 0.96 mg/dL [facility] GFR/1.73 sq M.predicted among non-blacks MDRD (S/P/Bld) [Vol rate/Area] 89 mL/min/{1.73_m2} - PINF [facility] Comment on above: Estimated Glomerular Filtration Rate (eGFR) is calculated using the 2020 CKD-EPI creatinine equation. This equation utilizes serum creatinine, sex, and age as parameters. The creatinine assay has traceable calibration to isotope dilution-mass spectrometry. Refer to KDIGO guidelines for clinical interpretation. In patients with unstable renal function, e.g. those with acute kidney injury, the eGFR may not accurately reflect actual GFR. Glucose [Mass/Vol] 99 mg/dL 74 - 99 mg/dL [facility] Comment on above: The [place] Diabete s Association (ADA) provides guidance for cutoff values for fasting glucose and random glucose. The ADA defines fasting as no caloric intake for at least 8 hours. Fasting plasma glucose results between 100 to 125 mg/dL indicate increased risk for diabetes (prediabetes). Fasting plasma glucose results greater than or equal to 126 mg/dL meet the criteria for diagnosis of diabetes. In the absence of unequivocal hyperglycemia, results should be confirmed by repeat testing. In a patient with classic symptoms of hyperglycemia or hyperglycemic crisis, random plasma glucose results greater than or equal to 200 mg/dL meet the criteria for diagnosis of diabetes. Reference: Standards of Medical Care in Diabetes 2016, [place] Diabetes Association. Diabetes Care. 2016.39(Suppl 1). Interpretation and review of laboratory results Abnormal [facility] Potassium [Moles/Vol] 4.2 mmol/L 3.7 - 5.1 mmol/L [facility] Protein [Mass/Vol] 6.5 g/dL 6.3 - 8.0 g/dL [facility] Sodium [Moles/Vol] 136 mmol/L 136 - 144 mmol/L [facility] Urea nitrogen [Mass/Vol] 13 mg/dL 7 - 21 mg/dL [facility] Comprehensive metabolic 2000 panelon 05-29-2024 Albumin [Mass/Vol] 4.1 g/dL Normal 3.9-4.9 [facility] Comment on above: Order Comment: Speci men Type: BLOOD SPECIMENOrdering Facility: [facility] Address: [address] [place] [address] Performed By: #### 2 4323-8 ####[facility] [id number] [place] [address] [place] ALP [Catalytic activity/Vol] 81 U/L Normal 34-123 [facility] Comment on above: Order Comment: Speci men Type: BLOOD SPECIMENOrdering Facility: [facility] Address: [address] [place] [address] Performed By: #### 2 4323-8 ####[facility] MIAMINCA [id number] [place] [address] [place] ALT [Catalytic activity/Vol] 10 U/L Normal 7-38 [facility] Comment on above: Order Comment: Speci men Type: BLOOD SPECIMENOrdering Facility: [facility] Address: [address] [place] [address] Performed By: #### 2 4323-8 ####[facility] MIAMINCA [id number] [place] [address] [place] Anion gap [Moles/Vol] 9 mmol/L Normal 8-15 [facility] Comment on above: Order Comment: Speci men Type: BLOOD SPECIMENOrdering Facility: [facility] Address: [address] [place] [address] Performed By: #### 2 4323-8 ####[facility] MIAMINCL[facility] [id number] [place] [address] [place] AST [Catalytic activity/Vol] 12 U/L Low 13-35 [facility] Comment on above: Order Comment: Speci men Type: BLOOD SPECIMENOrdering Facility: [facility] Address: [address] [place] [address] Performed By: #### 2 4323-8 ####[facility]AMINCL[facility] [id number] [place] [address] [place] Bilirubin [Mass/Vol] 0.4 mg/dL Normal 0.2-1.3 [facility] Comment on above: Order Comment: Speci men Type: BLOOD SPECIMENOrdering Facility: [facility] Address: [address] [place] [address] Performed By: #### 2 4323-8 ####[facility] JOI MILLTOWNCLIA [id number] [place] [address] [place] Calcium [Mass/Vol] 9.1 mg/dL Normal 8.5-10.2 [facility] Comment on above: Order Comment: Speci men Type: BLOOD SPECIMENOrdering Facility: [facility] Address: [address] [place] [address] Performed By: #### 2 4323-8 ####[facility] MILLTOWJENNIFERLIA [id number] [place] [address] [place] Chloride [Moles/Vol] 101 mmol/L Normal 98-107 [facility] Comment on above: Order Comment: Speci men Type: BLOOD SPECIMENOrdering Facility: [facility] Address: [address] [place] [address] Performed By: #### 2 4323-8 ####[facility] JOI MILLTOWNCLIA [id number] [place] [address] [place] CO2 [Moles/Vol] 26 mmol/L Normal 22-30 [facility] Comment on above: Order Comment: Speci men Type: BLOOD SPECIMENOrdering Facility: [facility] Address: [address] [place] [address] Performed By: #### 2 4323-8 ####[facility] JOI MILLTOWNCLIA [id number] [place] [address] [place] Creatinine [Mass/Vol] 0.68 mg/dL Normal 0.58-0.96 [facility] Comment on above: Order Comment: Speci men Type: BLOOD SPECIMENOrdering Facility: [facility] Address: [address] [place] [address] Performed By: #### 2 4323-8 ####[facility] [id number] [place] [address] [place] Creatinine and Glomerular filtration rate.predicted panel (S/P/Bld) 89 mL/min/1.73m??? Normal >=60 [facility] Comment on above: Order Comment: Katrina li Type: BLOOD SPECIMENOrdering Facility: [facility] Address: [address] [place] [address] Result Comment: Amina mated Glomerular Filtration Rate (eGFR) is calculated using the 2020 CKD-EPI creatinine equation. This equation utilizes serum creatinine, sex, and age as parameters. The creatinine assay has traceable calibration to isotope dilution-mass spectrometry. Refer to KDIGO guidelines for clinical interpretation. In patients with unstable renal function, e.g. those with acute kidney injury, the eGFR may not accurately reflect actual GFR. Performed By: #### 2 4323-8 ####[facility] [id number] [place] [address] [place] [facility] Glucose [Mass/Vol] 99 mg/dL Normal 74-99 [facility] Comment on above: Order Comment: Katrina li Type: BLOOD SPECIMENOrdering Facility: [facility] Address: [address] [place] [address] Result Comment: The [place] Diabetes Association (ADA) provides guidance for cutoff values for fasting glucose and random glucose. The ADA defines fasting as no caloric intake for at least 8 hours. Fasting plasma glucose results between 100 to 125 mg/dL indicate increased risk for diabetes (prediabetes).Fasting plasma glucose results greater than or equal to 126 mg/dL meet the criteria for diagnosis of diabetes. In the absence of unequivocal hyperglycemia, results should be confirmed by repeat testing. In a patient with classic symptoms of hyperglycemia or hyperglycemic crisis, random plasma glucose results greater than or equal to 200 mg/dL meet the criteria for diagnosis of diabetes.Reference: Standards of Medical Care in Diabetes 2016, [place] Diabetes Association. Diabetes Care. 2016.39(Suppl 1). Performed By: #### 2 4323-8 ####[facility] [id number] [place] [address] [place] Potassium [Moles/Vol] 4.2 mmol/L Normal 3.7-5.1 [facility] Comment on above: Order Comment: Speci men Type: BLOOD SPECIMENOrdering Facility: [facility] Address: [address] [place] [address] Performed By: #### 2 4323-8 ####[facility] GUILLERMINAWJENNIFERLIA [id number] [place] [address] [place] Protein [Mass/Vol] 6.5 g/dL Normal 6.3-8.0 [facility] Comment on above: Order Comment: Speci men Type: BLOOD SPECIMENOrdering Facility: [facility] Address: [address] [place] [address] Performed By: #### 2 4323-8 ####[facility] HARDIKWJENNIFERLIA [id number] [place] [address] [place] Sodium [Moles/Vol] 136 mmol/L Normal 136-144 [facility] Comment on above: Order Comment: Speci men Type: BLOOD SPECIMENOrdering Facility: [facility] Address: [address] [place] [address] Performed By: #### 2 4323-8 ####[facility] GUILLERMINAWNCLIA [id number] [place] [address] [place] Urea nitrogen [Mass/Vol] 13 mg/dL Normal 7-21 [facility] Comment on above: Order Comment: Speci men Type: BLOOD SPECIMENOrdering Facility: [facility] Address: [address] [place] [address] Performed By: #### 2 4323-8 ####[facility] HARDIKWNCLIA [id number] [place] [address] [place] Colonoscopy Reporton 12-18-2 024 Colonoscopy Report [facility] Medical Records Department [address] [place] [address] Colonoscopy Report MR#: [id number] Acct: [id number] Name: DANETTE BISHOP Rep #: [id number] : 1945 79 From: Sam Zamudio MD PCP: Dr. Tami Chang MD Status:[facility] [place] Patient Name: Danette Bishop Procedure Date: 05/23/2024 2:28 PM Date of : 1945 Age: 79 Procedure: Colonoscopy Indications: High risk colon cancer surveillance: Personal history of colonic polyps Providers: Sam Zamudio MD Referring MD: Tami Chang Medicines: Monitored Anesthesia Care Patient Profile: Refer to note in patient chart for documentation of history and physical. Last Colonoscopy: 5 years ago. Complications: No immediate complications. Estimated blood loss: Minimal. Procedure: Pre-Anesthesia Assessment: - Prior to the procedure, a History and Physical was performed, and patient medications and allergies were reviewed. The patient's tolerance of previous anesthesia was also reviewed. The risks and benefits of the procedure and the sedation options and risks were discussed with the patient. All questions were answered, and informed consent was obtained. Prior Anticoagulants: The patient has taken no anticoagulant or antiplatelet agents. ASA Grade Assessment: II - A patient with mild systemic disease. After reviewing the risks and benefits, the patient was deemed in satisfactory condition to undergo the procedure. - Prior to the procedure, a History and Physical was performed, and patient medications and allergies were reviewed. The patient's tolerance of previous anesthesia was also reviewed. The risks and benefits of the procedure and the sedation options and risks were discussed with the patient. All questions were answered, and informed consent was obtained. Prior Anticoagulants: The patient has taken no anticoagulant or antiplatelet agents. ASA Grade Assessment: II - A patient with mild systemic disease. After reviewing the risks and benefits, the patient was deemed in satisfactory condition to undergo the procedure. After I obtained informed consent, the scope was passed under direct vision. Throughout the procedure, the patient's blood pressure, pulse, and oxygen saturations were monitored continuously. The colonoscope was introduced through the anus and advanced to the cecum, identified by the appendiceal orifice, IC valve and transillumination. The ileocecal valve, appendiceal orifice, and rectum were photographed. The entire colon was well visualized. The colonoscopy was somewhat difficult due to a tortuous colon. The patient tolerated the procedure well. The quality of the bowel preparation was adequate. Moderate Sedation: See the other procedure note for documentation of moderate sedation with intraservice time. Scope In: 2:29:19 PM Scope Withdrawal Time 0 hours 15 minutes 19 seconds Scope Out: 3:01:47 PM Total Procedure Duration Time 0 hours 32 minutes 28 seconds Findings: The perianal and digital rectal examinations were normal. A 4 mm polyp was found in the sigmoid colon. The polyp was semi-pedunculated. The polyp was removed with a cold biopsy forceps. Resection and retrieval were complete. Verification of patient identification for the specimen was done by the all source intelligence technician using the patient's name, date and medical record number. Estimated blood loss was minimal. A 15 mm polyp was found in the cecum. The polyp was sessile. The polyp was removed with a hot snare. Resection and retrieval were complete. Verification of patient identification for the specimen was done by the all source intelligence technician using the patient's name, date and medical record number. Estimated blood loss was minimal. The exam was otherwise without abnormality on direct and retroflexion views. Impression: - One 4 mm polyp in the sigmoid colon, removed with a cold biopsy forceps. Resected and retrieved. - One 15 mm polyp in the cecum, removed with a hot snare. Resected and retrieved. - The examination was otherwise normal on direct and retroflexion views. Recommendation: - Discharge patient to home (ambulatory). - High fiber diet. - Await pathology results. - Repeat colonoscopy in 1 year for surveillance. - Return to my office PRN. - Continue present medications. Procedure Code(s): --- Professional --- 04700, Colonoscopy, flexible; with removal of tumor(s), polyp(s), or other lesion(s) by snare technique 96118, 59, Colonoscopy, flexible; with biopsy, single or multiple Diagnosis Code(s): --- Professional --- Z86.010, Personal history of colonic polyps D12.0, Benign neoplasm of cecum D12.5, Benign neoplasm of sigmoid colon CPT copyright 2021 [place] [employer]. All rights reserved. The codes documented in this report are preliminary and upon code (more content not included)... Normal [facility] EGD Reporton 05-23-2024 EGD Report [facility] Medical Records Department [address] [place] [address] EGD Report MR#: [id number] Acct: [id number] Name: DANETTE BISHOP Rep #: [id number] : 1945 79 From: Sam Zamudio MD PCP: Dr. Tami Chang MD Status:[facility] Patient Name: Danette Bishop Procedure Date: 05/23/2024 2:06 PM Date of : 1945 Age: 79 Procedure: Upper GI endoscopy Indications: Follow-up of Posadas's esophagus Providers: Sam Zamudio MD Referring MD: Tami Chang Medicines: Monitored Anesthesia Care Patient Profile: Refer to note in patient chart for documentation of history and physical. Complications: No immediate complications. Estimated blood loss: Minimal. Procedure: Pre-Anesthesia Assessment: - Prior to the procedure, a History and Physical was performed, and patient medications and allergies were reviewed. The patient's tolerance of previous anesthesia was also reviewed. The risks and benefits of the procedure and the sedation options and risks were discussed with the patient. All questions were answered, and informed consent was obtained. Prior Anticoagulants: The patient has taken no anticoagulant or antiplatelet agents. ASA Grade Assessment: II - A patient with mild systemic disease. After reviewing the risks and benefits, the patient was deemed in satisfactory condition to undergo the procedure. After obtaining informed consent, the endoscope was passed under direct vision. Throughout the procedure, the patient's blood pressure, pulse, and oxygen saturations were monitored continuously. The gastroscope was introduced through the mouth, and advanced to the duodenal bulb. The upper GI endoscopy was accomplished without difficulty. The patient tolerated the procedure well. Moderate Sedation: See the other procedure note for documentation of moderate sedation with intraservice time. Scope In: 2:17:42 PM Scope Out: 2:25:13 PM Total Procedure Duration Time 0 hours 7 minutes 31 seconds Findings: The duodenal bulb was normal. Multiple 6 mm pedunculated polyps with no bleeding and no stigmata of recent bleeding were found in the stomach. The polyp was removed with a cold biopsy forceps. Resection and retrieval were complete. Verification of patient identification for the specimen was done by the all source intelligence technician using the patient's name, date and medical record number. Estimated blood loss was minimal. The exam was otherwise without abnormality. Biopsies at antrum were performed to rule out HPylori. No gross lesions were noted in the entire esophagus. Mucosa was biopsied with a cold forceps for histology randomly at the gastroesophageal junction. Verification of patient identification for the specimen was done by the all source intelligence technician using the patient's name, date and medical record number. Estimated blood loss was minimal. The exam was otherwise without abnormality. Impression: - Normal duodenal bulb. - Multiple gastric polyps. Resected and retrieved. - The examination was otherwise normal. - No gross lesions in the entire esophagus. Biopsied. - The examination was otherwise normal. Recommendation: - Discharge patient to home (ambulatory). - High fiber diet indefinitely. - Continue present medications. - Await pathology results. - Repeat upper endoscopy in 3 years for surveillance. Procedure Code(s): --- Professional --- 13459, Esophagogastroduodenoscopy, flexible, transoral; with biopsy, single or multiple Diagnosis Code(s): --- Professional --- K31.7, Polyp of stomach and duodenum K22.70, Posadas's esophagus without dysplasia CPT copyright 2021 [place] [employer]. All rights reserved. The codes documented in this report are preliminary and upon tapper helper review may be revised to meet current compliance requirements. Sam Zamudio MD 05/23/2024 3:12:03 PM This report has been signed electronically. Number of Addenda: 0 Note Initiated On: 05/23/2024 2:06 PM 05/23/24 1512 Date Sam Zamudio MD Cosigner Signature: Date (if indicated) CC: Dr. Tami Chang MD; Dr. Sam Zamudio MD Date Dictated: 05/23/24 1406 Date Transcribed: Home Care Liaison: MELISSA Signed Normal [facility] H Pylori (initial)on 024 H Pylori (initial) -------- -------- Patient Age/Sex Location Account Attending Physician -------- DANETTE BISHOP 79/F EN [id number] Dr. Sam Zamudio MD -------- Specimen: [id number] Received: 05/24/24 Status: [facility] Num: [id number] Spec Type: IMMUNO Subm Dr: Dr. Sam Zamudio MD PHYSICIAN INSTITUTION [place] [address] SPECIMEN INFORMATION: Tissue Source: A- Antrum biopsy Clinical Info: History of Posadas's esophagus Specimen Number: [id number] CPT code: 25407 METHODOLOGY: Deparaffinized sections of prefer/formalin-fixed tissue or PAP/DQ stained slides are incubated with monoclonal/polyclonal antibodies/oligonucleotide probes. Localization is made via biotin free immunoperoxidase method. Appropriate controls are performed and reacted as expected. Results on target cell population are indicated in the following table: RESULTS: ANTIBODY / CLONE RESULT Block A H Pylori (polyclonal) negative These tests were developed and their performance characteristics determined by [facility]. They may not have been cleared or approved by the U.S. Food and Drug Administration. The FDA has determined that such clearance or approval is not necessary. The above immunohistochemical/dualISH markers are ordered and reviewed by the Pathologist. INTERPRETATION: A. Antrum, biopsy: Negative for Helicobacter pylori organisms. AM.mr 05/25/2024 Signed (signature on file) Dr. Hayden Mclain, 05/25/24 1406 -------- [address] [facility] Comment on above: Performed By: #### P H.PYLORI ####[facility] [id number] [facility] [place], [address] MR/POSTOP.Anitha 05-23-2024 MR/POSTOP.[facility] Medical Records Department [address] [place] [address] Anesthesia Postop Eval I 05/23/24 1509 MR#: [id number] Acct: [id number] Name: DANETTE BISHOP Rep #: [id number] : 1945 79 From: Missy Liz PCP: Dr. Tami Chang MD Status:[facility] Y Race: C Location: [place] [address] Anesthesia: Postop Eval I Current Vital Signs Temperature: 98.2 F Pulse Rate: 75 Blood Pressure: 95/49 Respiratory Rate: 18 Pulse Ox: 99 Assessment Airway patent: Yes Spontaneous unlabored respirations: Yes nausea: No Vomiting: No Anesthesia Complication: No Fluid Hydration Crystalloid volume administer (ml): 0 Total IV fluid infused: 0 Progress Note Anesthesia document: Postop Eval 1 completed: Yes 05/23/24 1510 Date Missy Apple Signature: Date CC: Signed Normal [facility] MR/EIZNXPZZ2oi 05-23-2024 MR/POSTOPAN2 [facility] Medical Records Department [address] [place] [address] Anesthesia Postop Eval II 05/23/24 232 MR#: [id number] Acct: [id number] Name: DANETTE BISHOP Rep #: [id number] : 1945 79 From: Naveen Ren MD PCP: Dr. Tami Chang MD Status:[facility] Y Race: C Location: EN Anesthesia Postop Eval I Sum Postop Eval Completion status Anesthesia document: Postop Eval 1 completed: Yes Anesthesia Postop Eval I Summary Anesthesia Postop Eval I Summary: Anesthesia Postop Eval I: Assessment Summary Airway patent Yes 05/23/24 15:09 GENERAL MERCHANDISE MANAGER.CSIR Spontaneous unlabored Yes 05/23/24 15:09 GENERAL MERCHANDISE MANAGER.CSIR respirations Mental status nausea No 05/23/24 15:09 GENERAL MERCHANDISE MANAGER.CSIR Vomiting No 05/23/24 15:09 GENERAL MERCHANDISE MANAGER.CSIR Anesthesia Postop Eval I: Fluid Summary Crystalloid volume administer 0 05/23/24 15:09 GENERAL MERCHANDISE MANAGER.CSIR (ml) Colloids volume administered ( ml) Blood Product volume administered (ml) Total IV fluid infused 0 05/23/24 15:09 GENERAL MERCHANDISE MANAGER.CSIR Anesthesia Postop Eval I: Summary Notes Anesthesia Complication No 05/23/24 15:09 GENERAL MERCHANDISE MANAGER.CSIR Anesthesia Complication Comment: Post-operative progress note Anesthesia: Postop Eval II Evaluation Mental status: Awake and Calm Pain Level: 0 nausea: No Vomiting: No Complications Anesthesia Complication: No 05/23/242321 Date Naveen Apple Signature: Date CC: Signed Normal [facility] Special Stain Group Ion 12-1 Special Stain Group I -------- Patient Age/Sex Location Account Attending Physician -------- DANETTE BISHOP 79/F EN [id number] Dr. Sam Zamudio MD -------- Specimen: [id number] Received: 05/23/24 Status: MONICA [facility] Num: [id number] Spec Type: COLON BX Subm Dr: Dr. Sam Zamudio MD HEADER OPERATION: Colonoscopy, EGD with biopsy, polypectomy PRE-OP DIAGNOSIS: History of Posadas's esophagus TISSUE SUBMITTED: A- Antrum biopsy, B- Gastric polyp biopsy, C- Gastroesophageal junction biopsy, D- Sigmoid polyp biopsy, E- Cecum polyp -------- MICROSCOPIC DIAGNOSIS A. Gastric antrum, biopsy: Chronic gastritis. See comment. B. Gastric polyp, biopsy: Fundic gland polyp. C. Gastroesophageal junction, biopsy: Mild chronic inflammation. Focal changes of reflux. No evidence of goblet cell metaplasia. See comment. D. Sigmoid polyp, biopsy: Tubular adenoma. E. Cecal polyp, biopsy: Fragments of tubular adenoma. COMMENT A. The results of immunohistochemistry for Helicobacter pylori will be reported separately ([id number]). C. Alcian blue/PAS stain with matched control is used in the evaluation of the specimen. MICROSCOPIC DESCRIPTION Slides are reviewed. GROSS DESCRIPTION A. Received in fixative is one container labeled with the patient's name and designated "Antrum biopsy." The specimen consists of two irregular fragments of light hutchinson soft tissue that in aggregate measure 2.0 x 0.5 cm. The specimen is totally submitted in one cassette. B. Received in fixative is one container labeled with the patient's name and designated "Gastric polyp biopsy." The specimen consists of multiple irregular fragments of light hutchinson soft tissue that in aggregate measure 2.0 x 0.75 cm. The specimen is totally submitted in one cassette. C. Received in fixative is one container labeled with the patient's name and designated "GE junction biopsy." The specimen consists of multiple irregular fragments of light hutchinson soft -------- Patient Age/Sex Location Account Attending Physician -------- DANETTE BISHOP 79/ EN [id number] Dr. Sam Zamudio MD -------- tissue that in aggregate measure 0.2 x 1.5 cm. The specimen is totally submitted in one cassette. D. Received in fixative is one container labeled with the patient's name and designated "Sigmoid polyp biopsy." The specimen consists of one irregular fragment of light hutchinson soft tissue that in aggregate measure 0.2 x 1.0 cm. The specimen is totally submitted in one cassette. E. multiple irregular fragments of light hutchinson soft tissue that in aggregate measure 0.2 x 2.0 cm. The specimen is totally submitted in one cassette. 05/24/2024 TC:[address] [facility]:[id number] -------- Patient Age/Sex Location Account Attending Physician -------- DANETTE BISHOP 79/ MOIZ [id number] Dr. Sam Zamudio MD -------- Signed (signature on file) Dr. Hayden Mclain, DO 05/25/24 1202 -------- [address] [facility] Comment on above: Performed By: #### L 100.0100, L500.2500 #### [facility] [address] [place], [address] MR/Yoandy 05-21-2024 MR/AIDAN [facility] Medical Records Department [address] [place] [address] PAT - Anesthesia 05/21/24 1345 MR#: [id number] Acct: [id number] Name: DANETTE BISHOP Rep #: [id number] : 1945 79 From: Brant Tipton MD PCP: Dr. Tami Chang MD Status:[facility] Y Race: C Location: EN Pre-Assessment Diagnosis/Proposed Procedure Planned Operative Procedure(s): COLONOSCOPY/EGD Anesthesia History Anesthesia History - activities director: Anesthesia History - activities director Hx Hospitalization Yes: MASECTOMY 06/202305/21/24 09:03 Any Problems With Anesthesia No 05/21/24 09:03 Cholinesterase deficiency No 05/21/24 09:03 You/Your Family Experience No 05/21/24 09:03 fever (hyperthermia) with Relationship Recent Exposure to Contagious No 09/29/20 10:47 Disease Does patient have nerve No 05/21/24 09:03 stimulator Patient instructed to have device shut off --Does patient have Pacemaker or ICD? When Was Last Pacemaker Check QUESTION #4 FULL TEXT: You/Your Family Experience fever (hyperthermia) with Anesthesia Last Oral Intake Last Oral intake: Last Oral Intake NPO since Meds taken in AM with sips of water? 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 - activities director: PONV - activities director Female Yes 05/21/24 09:03 HX of Motion Sickness No 05/21/24 09:03 HX of N/V After Surgery No 05/21/24 09:03 Non-Smoker Yes 05/21/24 09:03 Duration of Surgery greater No 05/21/24 09:03 than 60 minutes Number of Risk Factors 2 05/21/24 09:03 PONV Score Moderate Risk 05/21/24 09:03 Height Weight Height Weight: Anesthesia: Height Weight Height 5 ft 1 in 04/30/24 13:08 Respiratory Assessment Respiratory Assessment - activities director: Respiratory Tract Infection Hx - activities director Hx Respiratory Tract Infection No 05/21/24 09:03 STOP Sleep Apnea STOP Sleep Apnea - activities director: STOP Sleep Apnea - activities director Hx Hypertension Yes: controlled 05/21/24 09:03 Hx Sleep Apnea No 05/21/24 09:03 CPAP No 05/21/24 09:03 BIPAP No 05/21/24 09:03 Do you snore loudly (louder No 05/21/24 09:03 than talking or can be heard Do you often feel tired/ No 05/21/24 09:03 fatigued/ sleepy during daytime? Has anyone observed you stop No 05/21/24 09:03 breathing during sleep? STOP Results Negative 05/21/24 09:03 QUESTION #5 FULL TEXT : Do you snore loudly (louder than talking or can be heard through closed doors)? 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 Specify any problems Hx of Preganancy in last 3 No 05/21/24 09:03 Months Nurse Filling Out Transfusion VCHRISTIN 05/21/24 09:03 Questions: Date: 05/21/24 05/21/24 09:03 Time: 09:04 05/21/24 09:03 Patient unable to answer at this time (ie. confused, unrespo /Reproduction History /Reproductive History - activities director: /Reproductive Hx- activities director Hx Now Gestational Age (in weeks): EDC: Hx Hx Para Hx Section SAB PFSH Medical History (Updated 05/21/24 @ 09:03 by Anabelle Cerda) Wears glasses Post-menopausal Cancer Depression Anxiety Alcohol use Thyroid disease Anemia Easy bruising Excessive bleeding Back pain TIA (transient ischemic attack) History of hiatal hernia History of ulceration History of IBS Gastric reflux Former smoker Shortness of breath on exertion History of echocardiogram Hypertension History of irregular heartbeat History of rheumatic fever LUQ pain 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 Epigastric abdominal pain Liver metastasis 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 Normal [facility] CNOVSPon 05-09-2024 CNOVSP Normal [facility] CBC W Auto Differential pane l (Bld)on 05-08-2024 Basophils (Bld) [#/Vol] 0.08 10*3/uL [facility] Basophils/100 WBC (Bld) 0.9 % [facility] Differential cell count method Nom (Bld) Auto [facility] Eosinophils (Bld) [#/Vol] 0.12 10*3/uL [facility] Eosinophils/100 WBC (Bld) 1.4 % [facility] Erythrocyte distribution width (RBC) [Ratio] 14.7 % 11.5 - 15.0 % [facility] Hematocrit (Bld) [Volume fraction] 36.0 % 36.0 - 46.0 % [facility] Hemoglobin (Bld) [Mass/Vol] 12.3 g/dL 11.5 - 15.5 g/dL [facility] Immature granulocytes (Bld) [#/Vol] NINF [facility] Immature granulocytes/100 WBC (Bld) 0.2 % [facility] Lymphocytes (Bld) [#/Vol] 2.53 10*3/uL [facility] Lymphocytes/100 WBC (Bld) 29.6 % [facility] MCH (RBC) [Entitic mass] 30.1 pg 26.0 - 34.0 pg [facility] MCHC (RBC) [Mass/Vol] 34.2 g/dL 30.5 - 36.0 g/dL [facility] MCV (RBC) [Entitic vol] 88.0 fL 80.0 - 100.0 fL [facility] Monocytes (Bld) [#/Vol] 0.60 10*3/uL [facility] Monocytes/100 WBC (Bld) 7.0 % [facility] Neutrophils (Bld) [#/Vol] 5.20 10*3/uL [facility] Neutrophils/100 WBC (Bld) 60.9 % [facility] Nucleated RBC (Bld) [#/Vol] NINF [facility] Nucleated RBC/100 WBC (Bld) [Ratio] 0.0 % /100 WBC [facility] Platelet mean volume (Bld) [Entitic vol] 9.6 fL 9.0 - 12.7 fL [facility] Platelets (Bld) [#/Vol] 371 10*3/uL [facility] RBC (Bld) [#/Vol] 4.09 10*6/uL 3.90 - 5.20 m/uL [facility] WBC (Bld) [#/Vol] 8.55 10*3/uL [facility] Basophils (Bld) [#/Vol] 0.08 10*3/uL Normal <0.11 [facility] Comment on above: Order Comment: Speci men Type: BLOOD SPECIMENOrdering Facility: [facility] Address: [address] [place] [address] Performed By: #### 5 7021-8 ####[facility] MILLWNCLIA [id number] [place] [address] [place] Basophils/100 WBC (Bld) 0.9 % Normal [facility] Comment on above: Order Comment: Speci men Type: BLOOD SPECIMENOrdering Facility: [facility] Address: [address] [place] [address] Performed By: #### 5 7021-8 ####[facility] DAYTONLIA [id number] [place] [address] [place] Differential cell count method Nom (Bld) Auto Normal [facility] Comment on above: Order Comment: Speci men Type: BLOOD SPECIMENOrdering Facility: [facility] Address: [address] [place] [address] Performed By: #### 5 7021-8 ####[facility] DAYTONLIA [id number] [place] [address] [place] Eosinophils (Bld) [#/Vol] 0.12 10*3/uL Normal <0.46 [facility] Comment on above: Order Comment: Speci men Type: BLOOD SPECIMENOrdering Facility: [facility] Address: [address] [place] [address] Performed By: #### 5 7021-8 ####[facility]ENTERWNCLIA [id number] [place] [address] [place] Eosinophils/100 WBC (Bld) 1.4 % Normal [facility] Comment on above: Order Comment: Speci men Type: BLOOD SPECIMENOrdering Facility: [facility] Address: [address] [place] [address] Performed By: #### 5 7021-8 ####[facility] MIAMINCLIA [id number] [place] [address] [place] Erythrocyte distribution width (RBC) [Ratio] 14.7 % Normal 11.5-15.0 [facility] Comment on above: Order Comment: Speci men Type: BLOOD SPECIMENOrdering Facility: [facility] Address: [address] [place] [address] Performed By: #### 5 7021-8 ####[facility] MIAMINCLIA [id number] [place] [address] [place] Hematocrit (Bld) [Volume fraction] 36.0 % Normal 36.0-46.0 [facility] Comment on above: Order Comment: Speci men Type: BLOOD SPECIMENOrdering Facility: [facility] Address: [address] [place] [address] Performed By: #### 5 7021-8 ####[facility] MIAMINCLIA [id number] [place] [address] [place] Hemoglobin (Bld) [Mass/Vol] 12.3 g/dL Normal 11.5-15.5 [facility] Comment on above: Order Comment: Speci men Type: BLOOD SPECIMENOrdering Facility: [facility] Address: [address] [place] [address] Performed By: #### 5 7021-8 ####[facility] MIAMINCLIA [id number] [place] [address] [place] Immature granulocytes (Bld) [#/Vol] 10*3/uL Normal <0.10 [facility] Comment on above: Order Comment: Speci men Type: BLOOD SPECIMENOrdering Facility: [facility] Address: [address] [place] [address] Performed By: #### 5 7021-8 ####[facility] MIAMINCLIA [id number] [place] [address] [place] Immature granulocytes/100 WBC (Bld) 0.2 % Normal [facility] Comment on above: Order Comment: Speci men Type: BLOOD SPECIMENOrdering Facility: [facility] Address: [address] [place] [address] Performed By: #### 5 7021-8 ####[facility] HARDIKESTHERA [id number] [place] [address] [place] Lymphocytes (Bld) [#/Vol] 2.53 10*3/uL Normal 1.00-4.00 [facility] Comment on above: Order Comment: Speci men Type: BLOOD SPECIMENOrdering Facility: [facility] Address: [address] [place] [address] Performed By: #### 5 7021-8 ####[facility] MIAMIMAYNORA [id number] [place] [address] [place] Lymphocytes/100 WBC (Bld) 29.6 % Normal [facility] Comment on above: Order Comment: Speci men Type: BLOOD SPECIMENOrdering Facility: [facility] Address: [address] [place] [address] Performed By: #### 5 7021-8 ####[facility] DAYTONLORENZOA [id number] [place] [address] [place] MCH (RBC) [Entitic mass] 30.1 pg Normal 26.0-34.0 [facility] Comment on above: Order Comment: Speci men Type: BLOOD SPECIMENOrdering Facility: [facility] Address: [address] [place] [address] Performed By: #### 5 7021-8 ####[facility] MIAMINCLIA [id number] [place] [address] [place] MCHC (RBC) [Mass/Vol] 34.2 g/dL Normal 30.5-36.0 [facility] Comment on above: Order Comment: Speci men Type: BLOOD SPECIMENOrdering Facility: [facility] Address: [address] [place] [address] Performed By: #### 5 7021-8 ####[facility] CENTERWNCLIA [id number] [place] [address] [place] MCV (RBC) [Entitic vol] 88.0 fL Normal 80.0-100.0 [facility] Comment on above: Order Comment: Speci men Type: BLOOD SPECIMENOrdering Facility: [facility] Address: [address] [place] [address] Performed By: #### 5 7021-8 ####[facility] DAYTONLIA [id number] [place] [address] [place] Monocytes (Bld) [#/Vol] 0.60 10*3/uL Normal <0.87 [facility] Comment on above: Order Comment: Speci men Type: BLOOD SPECIMENOrdering Facility: [facility] Address: [address] [place] [address] Performed By: #### 5 7021-8 ####[facility] CENTERA [id number] [place] [address] [place] Monocytes/100 WBC (Bld) 7.0 % Normal [facility] Comment on above: Order Comment: Speci men Type: BLOOD SPECIMENOrdering Facility: [facility] Address: [address] [place] [address] Performed By: #### 5 7021-8 ####[facility] DAYTONLIA [id number] [place] [address] [place] Neutrophils (Bld) [#/Vol] 5.20 10*3/uL Normal 1.45-7.50 [facility] Comment on above: Order Comment: Speci men Type: BLOOD SPECIMENOrdering Facility: [facility] Address: [address] [place] [address] Performed By: #### 5 7021-8 ####[facility] MIAMINCSHRINERS HOSPITALS FOR CHILDREN [id number] [place] [address] [place] Neutrophils/100 WBC (Bld) 60.9 % Normal [facility] Comment on above: Order Comment: Speci men Type: BLOOD SPECIMENOrdering Facility: [facility] Address: [address] [place] [address] Performed By: #### 5 7021-8 ####[facility] MIAMINCSHRINERS H[facility]ITALS FOR CHIL[facility]EN [id number] [place] [address] [place] Nucleated RBC (Bld) [#/Vol] 10*3/uL Normal <0.01 [facility] Comment on above: Order Comment: Speci men Type: BLOOD SPECIMENOrdering Facility: [facility] Address: [address] [place] [address] Performed By: #### 5 7021-8 ####[facility]INCSHRIN[facility] FOR [facility]IL[facility] [id number] [place] [address] [place] Nucleated RBC/100 WBC (Bld) [Ratio] 0.0 /100 WBC Normal [facility] Comment on above: Order Comment: Speci men Type: BLOOD SPECIMENOrdering Facility: [facility] Address: [address] [place] [address] Performed By: #### 5 7021-8 ####[facility] MIAMINCLI [id number] [place] [address] [place] Platelet mean volume (Bld) [Entitic vol] 9.6 fL Normal 9.0-12.7 [facility] Comment on above: Order Comment: Speci men Type: BLOOD SPECIMENOrdering Facility: [facility] Address: [address] [place] [address] Performed By: #### 5 7021-8 ####[facility] MIAMINCLI [id number] [place] [address] [place] Platelets (Bld) [#/Vol] 371 10*3/uL Normal 150-400 [facility] Comment on above: Order Comment: Speci men Type: BLOOD SPECIMENOrdering Facility: [facility] Address: [address] [place] [address] Performed By: #### 5 7021-8 ####[facility] JOI DYEKarleneNCLIA [id number] [place] [address] [place] RBC (Bld) [#/Vol] 4.09 10*6/uL Normal 3.90-5.20 [facility] Comment on above: Order Comment: Speci men Type: BLOOD SPECIMENOrdering Facility: [facility] Address: [address] [place] [address] Performed By: #### 5 7021-8 ####[facility] HARDIKKALONANCLIA [id number] [place], [place] [id number] [place] [place] [address] [place] WBC (Bld) [#/Vol] 8.55 10*3/uL Normal 3.70-11.00 [facility] Comment on above: Order Comment: Speci men Type: BLOOD SPECIMENOrdering Facility: [facility] Address: [address] [place] [address] Performed By: #### 5 7021-8 ####[facility] HARDIKKALONANCLIA [id number] [place] [address] [place] Comprehensive metabolic 2000 panelOrdered By: Frances Cotton on 05-08-2024 Albumin [Mass/Vol] 4.4 g/dL 3.9 - 4.9 g/dL [facility] ALP [Catalytic activity/Vol] 91 U/L 34 - 123 U/L [facility] ALT [Catalytic activity/Vol] 15 U/L 7 - 38 U/L [facility] Anion gap [Moles/Vol] 12 mmol/L 8 - 15 mmol/L [facility] AST [Catalytic activity/Vol] 15 U/L 13 - 35 U/L [facility] Bilirubin [Mass/Vol] 0.5 mg/dL 0.2 - 1 .3 mg/dL [facility] Calcium [Mass/Vol] 9.5 mg/dL 8.5 - 10. 2 mg/dL [facility] Chloride [Moles/Vol] 98 mmol/L 98 - 10 7 mmol/L [facility] CO2 [Moles/Vol] 22 mmol/L 22 - 30 mmol/L [facility] Creatinine [Mass/Vol] 0.71 mg/dL 0.58 - 0.96 mg/dL [facility] GFR/1.73 sq M.predicted among non-blacks MDRD (S/P/Bld) [Vol rate/Area] 87 mL/min/{1.73_m2} - PINF [facility] Comment on above: Estimated Glomerular Filtration Rate (eGFR) is calculated using the 2020 CKD-EPI creatinine equation. This equation utilizes serum creatinine, sex, and age as parameters. The creatinine assay has traceable calibration to isotope dilution-mass spectrometry. Refer to KDIGO guidelines for clinical interpretation. In patients with unstable renal function, e.g. those with acute kidney injury, the eGFR may not accurately reflect actual GFR. Glucose [Mass/Vol] 97 mg/dL 74 - 99 mg/dL [facility] Comment on above: The [place] Diabete s Association (ADA) provides guidance for cutoff values for fasting glucose and random glucose. The ADA defines fasting as no caloric intake for at least 8 hours. Fasting plasma glucose results between 100 to 125 mg/dL indicate increased risk for diabetes (prediabetes). Fasting plasma glucose results greater than or equal to 126 mg/dL meet the criteria for diagnosis of diabetes. In the absence of unequivocal hyperglycemia, results should be confirmed by repeat testing. In a patient with classic symptoms of hyperglycemia or hyperglycemic crisis, random plasma glucose results greater than or equal to 200 mg/dL meet the criteria for diagnosis of diabetes. Reference: Standards of Medical Care in Diabetes 2016, [place] Diabetes Association. Diabetes Care. 2016.39(Suppl 1). Interpretation and review of laboratory results Abnormal [facility] Potassium [Moles/Vol] 4.0 mmol/L 3.7 - 5.1 mmol/L [facility] Protein [Mass/Vol] 7.1 g/dL 6.3 - 8.0 g/dL [facility] Sodium [Moles/Vol] 132 mmol/L Low 136 - 144 mmol/L [facility] Urea nitrogen [Mass/Vol] 14 mg/dL 7 - 21 mg/dL [facility] Comprehensive metabolic 2000 panelon 05-08-2024 Albumin [Mass/Vol] 4.4 g/dL Normal 3.9-4.9 [facility] Comment on above: Order Comment: Speci men Type: BLOOD SPECIMENOrdering Facility: [facility] Address: [address] [place] [address] Performed By: #### 2 4323-8 ####[facility] CENTERWNCLIA [id number] [place] [address] [place] ALP [Catalytic activity/Vol] 91 U/L Normal 34-123 [facility] Comment on above: Order Comment: Speci men Type: BLOOD SPECIMENOrdering Facility: [facility] Address: [address] [place] [address] Performed By: #### 2 4323-8 ####[facility] DAYTONLIA [id number] [place] [address] [place] ALT [Catalytic activity/Vol] 15 U/L Normal 7-38 [facility] Comment on above: Order Comment: Speci men Type: BLOOD SPECIMENOrdering Facility: [facility] Address: [address] [place] [address] Performed By: #### 2 4323-8 ####[facility] MIAMINCA [id number] [place] [address] [place] Anion gap [Moles/Vol] 12 mmol/L Normal 8-15 [facility] Comment on above: Order Comment: Speci men Type: BLOOD SPECIMENOrdering Facility: [facility] Address: [address] [place] [address] Performed By: #### 2 4323-8 ####[facility] MIAMINCLIA [id number] [place] [address] [place] AST [Catalytic activity/Vol] 15 U/L Normal 13-35 [facility] Comment on above: Order Comment: Speci men Type: BLOOD SPECIMENOrdering Facility: [facility] Address: [address] [place] [address] Performed By: #### 2 4323-8 ####[facility] JOI MILLTOWNCLIA [id number] [place] [address] [place] Bilirubin [Mass/Vol] 0.5 mg/dL Normal 0.2-1.3 [facility] Comment on above: Order Comment: Speci men Type: BLOOD SPECIMENOrdering Facility: [facility] Address: [address] [place] [address] Performed By: #### 2 4323-8 ####[facility] MILLTOWNCLIA [id number] [place] [address] [place] Calcium [Mass/Vol] 9.5 mg/dL Normal 8.5-10.2 [facility] Comment on above: Order Comment: Speci men Type: BLOOD SPECIMENOrdering Facility: [facility] Address: [address] [place] [address] Performed By: #### 2 4323-8 ####[facility] CENTERWNCLIA [id number] [place] [address] [place] Chloride [Moles/Vol] 98 mmol/L Normal 98-107 [facility] Comment on above: Order Comment: Speci men Type: BLOOD SPECIMENOrdering Facility: [facility] Address: [address] [place] [address] Performed By: #### 2 4323-8 ####[facility] MILLTOWNCLIA [id number] [place] [address] [place] CO2 [Moles/Vol] 22 mmol/L Normal 22-30 [facility] Comment on above: Order Comment: Speci men Type: BLOOD SPECIMENOrdering Facility: [facility] Address: [address] [place], [place] [address] Performed By: #### 2 4323-8 ####[facility] MILLWNCLIA [id number] [place] [address] [place] Creatinine [Mass/Vol] 0.71 mg/dL Normal 0.58-0.96 [facility] Comment on above: Order Comment: Katrina li Type: BLOOD SPECIMENOrdering Facility: [facility] Address: [address] [place] [address] Performed By: #### 2 4323-8 ####[facility] [id number] [place] [address] [place] Creatinine and Glomerular filtration rate.predicted panel (S/P/Bld) 87 mL/min/1.73m??? Normal >=60 [facility] Comment on above: Order Comment: Katrina li Type: BLOOD SPECIMENOrdering Facility: [facility] Address: [address] [place] [address] Result Comment: Amina mated Glomerular Filtration Rate (eGFR) is calculated using the 2020 CKD-EPI creatinine equation. This equation utilizes serum creatinine, sex, and age as parameters. The creatinine assay has traceable calibration to isotope dilution-mass spectrometry. Refer to KDIGO guidelines for clinical interpretation. In patients with unstable renal function, e.g. those with acute kidney injury, the eGFR may not accurately reflect actual GFR. Performed By: #### 2 4323-8 ####[facility] [id number] [place] [address] [place] Glucose [Mass/Vol] 97 mg/dL Normal 74-99 [facility] Comment on above: Order Comment: Katrina li Type: BLOOD SPECIMENOrdering Facility: [facility] Address: [address] [place] [address] Result Comment: The [place] Diabetes Association (ADA) provides guidance for cutoff values for fasting glucose and random glucose. The ADA defines fasting as no caloric intake for at least 8 hours. Fasting plasma glucose results between 100 to 125 mg/dL indicate increased risk for diabetes (prediabetes).Fasting plasma glucose results greater than or equal to 126 mg/dL meet the criteria for diagnosis of diabetes. In the absence of unequivocal hyperglycemia, results should be confirmed by repeat testing. In a patient with classic symptoms of hyperglycemia or hyperglycemic crisis, random plasma glucose results greater than or equal to 200 mg/dL meet the criteria for diagnosis of diabetes.Reference: Standards of Medical Care in Diabetes 2016, [place] Diabetes Association. Diabetes Care. 2016.39(Suppl 1). Performed By: #### 2 4323-8 ####[facility] MIAMIRAFFY [id number] [place] [address] [place] Potassium [Moles/Vol] 4.0 mmol/L Normal 3.7-5.1 [facility] Comment on above: Order Comment: Speci men Type: BLOOD SPECIMENOrdering Facility: [facility] Address: [address] [place], [place] [address] Performed By: #### 2 4323-8 ####[facility] MIAMIRAFFY [id number] [place] [address] [place] Protein [Mass/Vol] 7.1 g/dL Normal 6.3-8.0 [facility] Comment on above: Order Comment: Speci men Type: BLOOD SPECIMENOrdering Facility: [facility] Address: [address] [place], [place] [address] Performed By: #### 2 4323-8 ####[facility] DAYTONNENA [id number] [place] [address] [place] Sodium [Moles/Vol] 132 mmol/L Low 136-144 [facility] Comment on above: Order Comment: Speci men Type: BLOOD SPECIMENOrdering Facility: [facility] Address: [address] [place] [address] Performed By: #### 2 4323-8 ####[facility] [id number] [place] [address] [place] Urea nitrogen [Mass/Vol] 14 mg/dL Normal 7-21 [facility] Comment on above: Order Comment: Speci men Type: BLOOD SPECIMENOrdering Facility: [facility] Address: [address] [place] [address] Performed By: #### 2 4323-8 ####[facility] [id number] [place] [address] [place] Surgery Visit Reporton 04-30 Surgery Visit Report [facility] [address] [place] [address] OFFICE VISIT Date of Service: 04/30/24 MR#: [id number] Acct: [id number] Name: DANETTE BISHOP Rep #: [id number] : 1945 Provider: Dr. Sam neumann MD Age/Sex: 79/F Location: [facility] Status: Signed Intake Vital Signs 03/16/24 10:08 04/30/24 13:08 Height 5 ft 3 in 5 ft 1 in Weight: 153 lb 6 oz BMI 29.0 BP 174/77 H 126/77 H Blood Pressure Location Lt brachial Rt brachial Position Sitting Sitting Respiration 16 18 Pulse 74 76 Pulse Source Monitor Temp 98.4 F 97.2 F L Temp Source Oral Temporal Pulse Oximetry (%) 95 97 Oxygen Delivery Method room air room air Intake Visit Reasons: Esophagogastroduodenoscopy Chief Complaint: LUQ pain Medical Assembler Required: No Accompanied by: Is patient in pain?: No Allergies shellfish derived Allergy (Severe, Verified 04/30/24 13:11) throat swelling petrolatum,white Allergy (Intermediate, Verified 04/30/24 13:11) Rash adhesive tape Adverse Reaction (Verified 04/30/24 13:11) Rash Medications ???Medication ???Instructions ???Recorded ???Confirmed ???Type fluoxetine 40 mg capsule 40 mg PO QDAY 06/16/17 04/30/24 History lisinopril 20 mg tablet 20 mg PO DAILY 09/25/20 04/30/24 History cholecalciferol (vitamin D3) 50 50 mcg PO DAILY 06/11/21 04/30/24 History mcg (2,000 unit) capsule levothyroxine 125 mcg tablet 112 mcg PO DAILY 30 days #27 tabs 06/11/21 04/30/24 History hydrocodone-acetaminophen 5-325mg ea PO 07/16/22 04/30/24 History 5mg-325mg alprazolam 0.5 mg tablet 0.5 mg PO DAILY PRN 07/21/22 04/30/24 History phenazopyridine 100 mg tablet 100 mg PO TID PRN pain 6 doses #7 01/14/23 04/30/24 Rx (Pyridium) tabs letrozole 2.5 mg tablet 2.5 mg PO QDAY 02/16/24 04/30/24 History erreornu-tbhpcssrh-xzbgylxo 3.5 drp ophthalmic (eye) 02/16/24 04/30/24 History mg/mL-10,000 unit/mL-0.1% eye drops amlodipine 5 mg tablet 5 mg PO QDAY 04/30/24 04/30/24 History clopidogrel 75 mg tablet 75 mg PO QDAY 04/30/24 04/30/24 History esomeprazole magnesium 20 mg 20 mg PO QDAY 04/30/24 04/30/24 History capsule,delayed release (Nexium) sennosides 8.6 mg tablet (Senokot) 8.6 mg PO DAILY PRN 04/30/24 04/30/24 History Have you fallen in the past year?: No PFSH Medical History LUQ pain Epigastric abdominal pain History of Posadas's esophagus Recurrent seroma of breast Liver metastasis 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 Wears dentures Sleep apnea History of TIA (transient ischemic attack) History of thyroid disease Back pain Neck pain Severe headache Stomach ulcer History of cancer Arthritis History of hypertension Surgical History History of lumpectomy History of back surgery History of thyroid surgery Family History Mother Colon cancer passed from recurrence Thyroid disorder Father Hypertension CVA (cerebral vascular accident) Sister Breast cancer, Onset Age: 87 Aunt Colon cancer paternal Social History household members: spouse Smoking Status: Former smoker how long ago did patient quit smoking: >50 years ago; off and on for 2 years, socially only alcohol intake: current alcohol intake frequency: 0-2 drinks per day Alcohol type: wine details: socially substance use type: does not use additional social history: denies vaping, denies marijuana, denies edibles, denies aspirin and ibuprofen use HPI HPI HPI: The patient is a 79-year-old female who is being seen today to set up an EGD. Her last scope was about 3-1/2 years ago. She was found at one point to have Posadas's esophagus. It has also been about 5 or 6 years since her last colonoscopy. She does have a family of colon cancer in her mother. She also commented that she had some left-sided abdominal/flank pain which may be attributable to a left flank hernia that she had which is related to previous back surgery. It sounds as though she does have some constipation issues. ROS General General: Yes fatigue and breast cancer; No weight change, appetite, colon cancer or weakness HEENT HEENT: No difficulty swallowing, eye injury, eye surgery, swollen glands or hoarseness Endo Endocrine: Yes thyroid disease; No diabetes mellitus, thyroid cancer, Hair loss, heat intolerance or cold intolerance Skin Skin: No rash or changing moles Breast Breast: No left breast lump, right breast lump, nipple discharge, breast pain, abnormal mammogram, abnormal US or breast enlargement Musc Musculoskeletal: Yes back problems and arthritis; No rh (more content not included)... Normal [facility] ECHO LIMITEDon 04-20-2024 ECHO LIMITED Normal [facility] CBC W Auto Differential pane l (Bld)on 04-18-2024 Basophils (Bld) [#/Vol] 0.07 10*3/uL [facility] Basophils/100 WBC (Bld) 1.2 % [facility] Differential cell count method Nom (Bld) Auto [facility] Eosinophils (Bld) [#/Vol] 0.09 10*3/uL [facility] Eosinophils/100 WBC (Bld) 1.6 % [facility] Erythrocyte distribution width (RBC) [Ratio] 15.8 % High 11.5 - 15.0 % [facility] Hematocrit (Bld) [Volume fraction] 36.1 % 36.0 - 46.0 % [facility] Hemoglobin (Bld) [Mass/Vol] 11.9 g/dL 11.5 - 15.5 g/dL [facility] Immature granulocytes (Bld) [#/Vol] NINF [facility] Immature granulocytes/100 WBC (Bld) 0.4 % [facility] Interpretation and review of laboratory results Abnormal [facility] Lymphocytes (Bld) [#/Vol] 1.64 10*3/uL [facility] Lymphocytes/100 WBC (Bld) 28.8 % [facility] MCH (RBC) [Entitic mass] 29.3 pg 26.0 - 34.0 pg [facility] MCHC (RBC) [Mass/Vol] 33.0 g/dL 30.5 - 36.0 g/dL [facility] MCV (RBC) [Entitic vol] 88.9 fL 80.0 - 100.0 fL [facility] Monocytes (Bld) [#/Vol] 0.30 10*3/uL [facility] Monocytes/100 WBC (Bld) 5.3 % [facility] Neutrophils (Bld) [#/Vol] 3.57 10*3/uL [facility] Neutrophils/100 WBC (Bld) 62.7 % [facility] Nucleated RBC (Bld) [#/Vol] [facility] Nucleated RBC/100 WBC (Bld) [Ratio] 0.0 % /100 WBC [facility] Platelet mean volume (Bld) [Entitic vol] 9.4 fL 9.0 - 12.7 fL [facility] Platelets (Bld) [#/Vol] 343 10*3/uL [facility] RBC (Bld) [#/Vol] 4.06 10*6/uL 3.90 - 5.20 m/uL [facility] WBC (Bld) [#/Vol] 5.69 10*3/uL [facility] Basophils (Bld) [#/Vol] 0.07 10*3/uL Normal <0.11 [facility] Comment on above: Order Comment: Speci men Type: BLOOD SPECIMENOrdering Facility: [facility] Address: [address] [place] [address] Performed By: #### 5 7021-8 ####[facility] [id number] [place] [id number] [place] Basophils/100 WBC (Bld) 1.2 % Normal [facility] Comment on above: Order Comment: Speci men Type: BLOOD SPECIMENOrdering Facility: [facility] Address: [address] [place] [address] Performed By: #### 5 7021-8 ####[facility] HARDIKCHLOE [id number] [place] [address] [place] Differential cell count method Nom (Bld) Auto Normal [facility] Comment on above: Order Comment: Speci men Type: BLOOD SPECIMENOrdering Facility: [facility] Address: [address] [place] [address] Performed By: #### 5 7021-8 ####[facility] [id number] [place] [address] [place] Eosinophils (Bld) [#/Vol] 0.09 10*3/uL Normal <0.46 [facility] Comment on above: Order Comment: Speci men Type: BLOOD SPECIMENOrdering Facility: [facility] Address: [address] [place] [address] Performed By: #### 5 7021-8 ####[facility]INCS[facility] [id number] [place] [address] [place] Eosinophils/100 WBC (Bld) 1.6 % Normal [facility] Comment on above: Order Comment: Speci men Type: BLOOD SPECIMENOrdering Facility: [facility] Address: [address] [place] [address] Performed By: #### 5 7021-8 ####[facility]INCLI [id number] [place] [address] [place] Erythrocyte distribution width (RBC) [Ratio] 15.8 % High 11.5-15.0 [facility] Comment on above: Order Comment: Speci men Type: BLOOD SPECIMENOrdering Facility: [facility] Address: [address] [place] [address] Performed By: #### 5 7021-8 ####[facility] MILLWNCLIA [id number] [place] [address] [place] Hematocrit (Bld) [Volume fraction] 36.1 % Normal 36.0-46.0 [facility] Comment on above: Order Comment: Speci men Type: BLOOD SPECIMENOrdering Facility: [facility] Address: [address] [place] [address] Performed By: #### 5 7021-8 ####[facility] DAYTONLIA [id number] [place] [address] [place] Hemoglobin (Bld) [Mass/Vol] 11.9 g/dL Normal 11.5-15.5 [facility] Comment on above: Order Comment: Speci men Type: BLOOD SPECIMENOrdering Facility: [facility] Address: [address] [place] [address] Performed By: #### 5 7021-8 ####[facility] [id number] [place] [address] [place] Immature granulocytes (Bld) [#/Vol] 10*3/uL Normal <0.10 [facility] Comment on above: Order Comment: Speci men Type: BLOOD SPECIMENOrdering Facility: [facility] Address: [address] [place] [address] Performed By: #### 5 7021-8 ####[facility] DAYTONLIA [id number] [place] [address] [place] Immature granulocytes/100 WBC (Bld) 0.4 % Normal [facility] Comment on above: Order Comment: Speci men Type: BLOOD SPECIMENOrdering Facility: [facility] Address: [address] [place] [address] Performed By: #### 5 7021-8 ####[facility]INCLIA [id number] [place] [address] [place] Lymphocytes (Bld) [#/Vol] 1.64 10*3/uL Normal 1.00-4.00 [facility] Comment on above: Order Comment: Speci men Type: BLOOD SPECIMENOrdering Facility: [facility] Address: [address] [place] [address] Performed By: #### 5 7021-8 ####[facility] [id number] [place] [address] [place] Lymphocytes/100 WBC (Bld) 28.8 % Normal [facility] Comment on above: Order Comment: Speci men Type: BLOOD SPECIMENOrdering Facility: [facility] Address: [address] [place] [address] Performed By: #### 5 7021-8 ####[facility] [id number] [place] [address] [place] MCH (RBC) [Entitic mass] 29.3 pg Normal 26.0-34.0 [facility] Comment on above: Order Comment: Speci men Type: BLOOD SPECIMENOrdering Facility: [facility] Address: [address] [place] [address] Performed By: #### 5 7021-8 ####[facility] [id number] [place] [address] [place] MCHC (RBC) [Mass/Vol] 33.0 g/dL Normal 30.5-36.0 [facility] Comment on above: Order Comment: Speci men Type: BLOOD SPECIMENOrdering Facility: [facility] Address: [address] [place] [address] Performed By: #### 5 7021-8 ####[facility] [id number] [place] [address] [place] MCV (RBC) [Entitic vol] 88.9 fL Normal 80.0-100.0 [facility] Comment on above: Order Comment: Speci men Type: BLOOD SPECIMENOrdering Facility: [facility] Address: [address] [place] [address] Performed By: #### 5 7021-8 ####[facility] HARDIKESTHERA [id number] [place] [address] [place] Monocytes (Bld) [#/Vol] 0.30 10*3/uL Normal <0.87 [facility] Comment on above: Order Comment: Speci men Type: BLOOD SPECIMENOrdering Facility: [facility] Address: [address] [place] [address] Performed By: #### 5 7021-8 ####[facility] [id number] [place] [address] [place] Monocytes/100 WBC (Bld) 5.3 % Normal [facility] Comment on above: Order Comment: Speci men Type: BLOOD SPECIMENOrdering Facility: [facility] Address: [address] [place] [address] Performed By: #### 5 7021-8 ####[facility]INCA [id number] [place] [address] [place] Neutrophils (Bld) [#/Vol] 3.57 10*3/uL Normal 1.45-7.50 [facility] Comment on above: Order Comment: Speci men Type: BLOOD SPECIMENOrdering Facility: [facility] Address: [address] [place] [address] Performed By: #### 5 7021-8 ####[facility] DAYTONLIA [id number] [place] [address] [place] Neutrophils/100 WBC (Bld) 62.7 % Normal [facility] Comment on above: Order Comment: Speci men Type: BLOOD SPECIMENOrdering Facility: [facility] Address: [address] [place] [address] Performed By: #### 5 7021-8 ####[facility] HARDIKWJENNIFERLIA [id number] [place] [address] [place] Nucleated RBC (Bld) [#/Vol] 10*3/uL Normal <0.01 [facility] Comment on above: Order Comment: Speci men Type: BLOOD SPECIMENOrdering Facility: [facility] Address: [address] [place] [address] Performed By: #### 5 7021-8 ####[facility] DAYTONLIA [id number] [place] [address] [place] Nucleated RBC/100 WBC (Bld) [Ratio] 0.0 /100 WBC Normal [facility] Comment on above: Order Comment: Speci men Type: BLOOD SPECIMENOrdering Facility: [facility] Address: [address] [place] [address] Performed By: #### 5 7021-8 ####[facility] [id number] [place] [address] [place] Platelet mean volume (Bld) [Entitic vol] 9.4 fL Normal 9.0-12.7 [facility] Comment on above: Order Comment: Speci men Type: BLOOD SPECIMENOrdering Facility: [facility] Address: [address] [place] [address] Performed By: #### 5 7021-8 ####[facility] [id number] [place] [address] [place] Platelets (Bld) [#/Vol] 343 10*3/uL Normal 150-400 [facility] Comment on above: Order Comment: Speci men Type: BLOOD SPECIMENOrdering Facility: [facility] Address: [address] [place] [address] Performed By: #### 5 7021-8 ####[facility]INCLI [id number] [place] [address] [place] RBC (Bld) [#/Vol] 4.06 10*6/uL Normal 3.90-5.20 [facility] Comment on above: Order Comment: Speci men Type: BLOOD SPECIMENOrdering Facility: [facility] Address: [address] [place] [address] Performed By: #### 5 7021-8 ####[facility] MIAMINCLORENZOA [id number] [place] [address] [facility] WBC (Bld) [#/Vol] 5.69 10*3/uL Normal 3.70-11.00 [facility] Comment on above: Order Comment: Speci men Type: BLOOD SPECIMENOrdering Facility: [facility] Address: [address] [place] [address] Performed By: #### 5 7021-8 ####[facility] [id number] [place] [address] [facility] Comprehensive metabolic 2000 panelOrdered By: Zaida Rice on 04-18-2024 Albumin [Mass/Vol] 4.3 g/dL 3.9 - 4.9 g/dL [facility] ALP [Catalytic activity/Vol] 88 U/L 34 - 123 U/L [facility] ALT [Catalytic activity/Vol] 15 U/L 7 - 38 U/L [facility] Anion gap [Moles/Vol] 10 mmol/L 8 - 15 mmol/L [facility] AST [Catalytic activity/Vol] 16 U/L 13 - 35 U/L [facility] Bilirubin [Mass/Vol] 0.7 mg/dL 0.2 - 1 .3 mg/dL [facility] Calcium [Mass/Vol] 9.4 mg/dL 8.5 - 10. 2 mg/dL [facility] Chloride [Moles/Vol] 100 mmol/L 98 - 10 7 mmol/L [facility] CO2 [Moles/Vol] 25 mmol/L 22 - 30 mmol/L [facility] Creatinine [Mass/Vol] 0.72 mg/dL 0.58 - 0.96 mg/dL [facility] GFR/1.73 sq M.predicted among non-blacks MDRD (S/P/Bld) [Vol rate/Area] 85 mL/min/{1.73_m2} - PINF [facility] Comment on above: Estimated Glomerular Filtration Rate (eGFR) is calculated using the 2020 CKD-EPI creatinine equation. This equation utilizes serum creatinine, sex, and age as parameters. The creatinine assay has traceable calibration to isotope dilution-mass spectrometry. Refer to KDIGO guidelines for clinical interpretation. In patients with unstable renal function, e.g. those with acute kidney injury, the eGFR may not accurately reflect actual GFR. Glucose [Mass/Vol] 117 mg/dL High 74 - 99 mg/dL [facility] Comment on above: The [place] Diabete [place] Association (ADA) provides guidance for cutoff values for fasting glucose and random glucose. The ADA defines fasting as no caloric intake for at least 8 hours. Fasting plasma glucose results between 100 to 125 mg/dL indicate increased risk for diabetes (prediabetes). Fasting plasma glucose results greater than or equal to 126 mg/dL meet the criteria for diagnosis of diabetes. In the absence of unequivocal hyperglycemia, results should be confirmed by repeat testing. In a patient with classic symptoms of hyperglycemia or hyperglycemic crisis, random plasma glucose results greater than or equal to 200 mg/dL meet the criteria for diagnosis of diabetes. Reference: Standards of Medical Care in Diabetes 2016, [place] Diabetes Association. Diabetes Care. 2016.39(Suppl 1). Interpretation and review of laboratory results Abnormal [facility] Potassium [Moles/Vol] 4.1 mmol/L 3.7 - 5.1 mmol/L [facility] Protein [Mass/Vol] 7.0 g/dL 6.3 - 8.0 g/dL [facility] Sodium [Moles/Vol] 135 mmol/L Low 136 - 144 mmol/L [facility] Urea nitrogen [Mass/Vol] 11 mg/dL 7 - 21 mg/dL [facility] Comprehensive metabolic 2000 panelon 04-18-2024 Albumin [Mass/Vol] 4.3 g/dL Normal 3.9-4.9 [facility] Comment on above: Order Comment: Speci men Type: BLOOD SPECIMENOrdering Facility: [facility] Address: [address] [place] [address] Performed By: #### 2 4323-8 ####[facility] JOI OROZCO [id number] [place] [address] [place] ALP [Catalytic activity/Vol] 88 U/L Normal 34-123 [facility] Comment on above: Order Comment: Speci men Type: BLOOD SPECIMENOrdering Facility: [facility] Address: [address] [place] [address] Performed By: #### 2 4323-8 ####[facility]ENTERWNELIA [id number] [place] [address] [place] ALT [Catalytic activity/Vol] 15 U/L Normal 7-38 [facility] Comment on above: Order Comment: Speci men Type: BLOOD SPECIMENOrdering Facility: [facility] Address: [address] [place] [address] Performed By: #### 2 4323-8 ####[facility]AMINCLIA [id number] [place] [address] [place] Anion gap [Moles/Vol] 10 mmol/L Normal 8-15 [facility] Comment on above: Order Comment: Speci men Type: BLOOD SPECIMENOrdering Facility: [facility] Address: [address] [place] [address] Performed By: #### 2 4323-8 ####[facility] MIAMINCLIA [id number] [place] [address] [place] AST [Catalytic activity/Vol] 16 U/L Normal 13-35 [facility] Comment on above: Order Comment: Speci men Type: BLOOD SPECIMENOrdering Facility: [facility] Address: [address] [place] [address] Performed By: #### 2 4323-8 ####[facility] MIAMINCLIA [id number] [place] [address] [place] Bilirubin [Mass/Vol] 0.7 mg/dL Normal 0.2-1.3 [facility] Comment on above: Order Comment: Speci men Type: BLOOD SPECIMENOrdering Facility: [facility] Address: [address] [place] [address] Performed By: #### 2 4323-8 ####[facility] JULIETTENCNENA [id number] [place] [address] [place] Calcium [Mass/Vol] 9.4 mg/dL Normal 8.5-10.2 [facility] Comment on above: Order Comment: Speci men Type: BLOOD SPECIMENOrdering Facility: [facility] Address: [address] [place] [address] Performed By: #### 2 4323-8 ####[facility] MIAMINCLIA [id number] [place] [address] [place] Chloride [Moles/Vol] 100 mmol/L Normal 98-107 [facility] Comment on above: Order Comment: Speci men Type: BLOOD SPECIMENOrdering Facility: [facility] Address: [address] [place] [address] Performed By: #### 2 4323-8 ####[facility] MIAMINCLORENZOA [id number] [place] [address] [place] CO2 [Moles/Vol] 25 mmol/L Normal 22-30 [facility] Comment on above: Order Comment: Speci men Type: BLOOD SPECIMENOrdering Facility: [facility] Address: [address] [place] [address] Performed By: #### 2 4323-8 ####[facility] MIAMINCLIA [id number] [place] [address] [place] Creatinine [Mass/Vol] 0.72 mg/dL Normal 0.58-0.96 [facility] Comment on above: Order Comment: Speci men Type: BLOOD SPECIMENOrdering Facility: [facility] Address: [address] [place] [address] Performed By: #### 2 4323-8 ####[facility] MIAMINCLI [id number] [place] [address] [place] Creatinine and Glomerular filtration rate.predicted panel (S/P/Bld) 85 mL/min/1.73m??? Normal >=60 [facility] Comment on above: Order Comment: Katrina li Type: BLOOD SPECIMENOrdering Facility: [facility] Address: [address] [place] [address] Result Comment: Amina mated Glomerular Filtration Rate (eGFR) is calculated using the 2020 CKD-EPI creatinine equation. This equation utilizes serum creatinine, sex, and age as parameters. The creatinine assay has traceable calibration to isotope dilution-mass spectrometry. Refer to KDIGO guidelines for clinical interpretation. In patients with unstable renal function, e.g. those with acute kidney injury, the eGFR may not accurately reflect actual GFR. Performed By: #### 2 4323-8 ####[facility] [id number] [place] [address] [place] Glucose [Mass/Vol] 117 mg/dL High 74-99 [facility] Comment on above: Order Comment: Katrina li Type: BLOOD SPECIMENOrdering Facility: [facility] Address: [address] [place] [address] Result Comment: The [place] Diabetes Association (ADA) provides guidance for cutoff values for fasting glucose and random glucose. The ADA defines fasting as no caloric intake for at least 8 hours. Fasting plasma glucose results between 100 to 125 mg/dL indicate increased risk for diabetes (prediabetes).Fasting plasma glucose results greater than or equal to 126 mg/dL meet the criteria for diagnosis of diabetes. In the absence of unequivocal hyperglycemia, results should be confirmed by repeat testing. In a patient with classic symptoms of hyperglycemia or hyperglycemic crisis, random plasma glucose results greater than or equal to 200 mg/dL meet the criteria for diagnosis of diabetes.Reference: Standards of Medical Care in Diabetes 2016, [place] Diabetes Association. Diabetes Care. 2016.39(Suppl 1). Performed By: #### 2 4323-8 ####[facility] [id number] [place] [address] [place] Potassium [Moles/Vol] 4.1 mmol/L Normal 3.7-5.1 [facility] Comment on above: Order Comment: Speci men Type: BLOOD SPECIMENOrdering Facility: [facility] Address: [address] [place] [address] Performed By: #### 2 4323-8 ####[facility] MIAMIJENNIFERLIA [id number] [place] [address] [place] Protein [Mass/Vol] 7.0 g/dL Normal 6.3-8.0 [facility] Comment on above: Order Comment: Speci men Type: BLOOD SPECIMENOrdering Facility: [facility] Address: [address] [place] [address] Performed By: #### 2 4323-8 ####[facility] MIAMINCLIA [id number] [place] [address] [place] Sodium [Moles/Vol] 135 mmol/L Low 136-144 [facility] Comment on above: Order Comment: Speci men Type: BLOOD SPECIMENOrdering Facility: [facility] Address: [address] [place] [address] Performed By: #### 2 4323-8 ####[facility] MIAMINCLIA [id number] [place] [address] [place] Urea nitrogen [Mass/Vol] 11 mg/dL Normal 7-21 [facility] Comment on above: Order Comment: Speci men Type: BLOOD SPECIMENOrdering Facility: [facility] Address: [address] [place] [address] Performed By: #### 2 4323-8 ####[facility] MIAMINCLIA [id number] [place] [address] [place] CNOVSPon 04-16-2024 CNOVSP Normal [facility] CNOVSPon 03-28-2024 CNOVSP Normal [facility] CBC W Auto Differential pane l (Bld)on 03-27-2024 Basophils (Bld) [#/Vol] 0.08 10*3/uL [facility] Basophils/100 WBC (Bld) 1.5 % [facility] Differential cell count method Nom (Bld) Auto [facility] Eosinophils (Bld) [#/Vol] 0.14 10*3/uL [facility] Eosinophils/100 WBC (Bld) 2.6 % [facility] Erythrocyte distribution width (RBC) [Ratio] 15.9 % High 11.5 - 15.0 % [facility] Hematocrit (Bld) [Volume fraction] 35.8 % Low 36.0 - 46.0 % [facility] Hemoglobin (Bld) [Mass/Vol] 12.0 g/dL 11.5 - 15.5 g/dL [facility] Immature granulocytes (Bld) [#/Vol] [facility] Immature granulocytes/100 WBC (Bld) 0.2 % [facility] Interpretation and review of laboratory results Abnormal [facility] Lymphocytes (Bld) [#/Vol] 1.54 10*3/uL [facility] Lymphocytes/100 WBC (Bld) 28.4 % [facility] MCH (RBC) [Entitic mass] 29.3 pg 26.0 - 34.0 pg [facility] MCHC (RBC) [Mass/Vol] 33.5 g/dL 30.5 - 36.0 g/dL [facility] MCV (RBC) [Entitic vol] 87.5 fL 80.0 - 100.0 fL [facility] Monocytes (Bld) [#/Vol] 0.35 10*3/uL [facility] Monocytes/100 WBC (Bld) 6.4 % [facility] Neutrophils (Bld) [#/Vol] 3.31 10*3/uL [facility] Neutrophils/100 WBC (Bld) 60.9 % [facility] Nucleated RBC (Bld) [#/Vol] [facility] Nucleated RBC/100 WBC (Bld) [Ratio] 0.0 % /100 WBC [facility] Platelet mean volume (Bld) [Entitic vol] 9.3 fL 9.0 - 12.7 fL [facility] Platelets (Bld) [#/Vol] 349 10*3/uL [facility] RBC (Bld) [#/Vol] 4.09 10*6/uL 3.90 - 5.20 m/uL [facility] WBC (Bld) [#/Vol] 5.43 10*3/uL [facility] Basophils (Bld) [#/Vol] 0.08 10*3/uL Normal <0.11 [facility] Comment on above: Order Comment: Speci men Type: BLOOD SPECIMENOrdering Facility: [facility] Address: [address] [place] [address] Performed By: #### 5 7021-8 ####[facility] MILLWNCLIA [id number] [place] [address] [place] Basophils/100 WBC (Bld) 1.5 % Normal [facility] Comment on above: Order Comment: Speci men Type: BLOOD SPECIMENOrdering Facility: [facility] Address: [address] [place] [address] Performed By: #### 5 7021-8 ####[facility] DAYTONLIA [id number] [place] [address] [place] Differential cell count method Nom (Bld) Auto Normal [facility] Comment on above: Order Comment: Speci men Type: BLOOD SPECIMENOrdering Facility: [facility] Address: [address] [place] [address] Performed By: #### 5 7021-8 ####[facility] MILLWNCLIA [id number] [place] [address] [place] Eosinophils (Bld) [#/Vol] 0.14 10*3/uL Normal <0.46 [facility] Comment on above: Order Comment: Speci men Type: BLOOD SPECIMENOrdering Facility: [facility] Address: [address] [place] [address] Performed By: #### 5 7021-8 ####[facility] MILLKALONANCLIA [id number] [place] [address] [place] Eosinophils/100 WBC (Bld) 2.6 % Normal [facility] Comment on above: Order Comment: Speci men Type: BLOOD SPECIMENOrdering Facility: [facility] Address: [address] [place] [address] Performed By: #### 5 7021-8 ####[facility] MIAMINCA [id number] [place] [address] [place] Erythrocyte distribution width (RBC) [Ratio] 15.9 % High 11.5-15.0 [facility] Comment on above: Order Comment: Speci men Type: BLOOD SPECIMENOrdering Facility: [facility] Address: [address] [place] [address] Performed By: #### 5 7021-8 ####[facility] MIAMINCLI [id number] [place] [address] [place] Hematocrit (Bld) [Volume fraction] 35.8 % Low 36.0-46.0 [facility] Comment on above: Order Comment: Speci men Type: BLOOD SPECIMENOrdering Facility: [facility] Address: [address] [place] [address] Performed By: #### 5 7021-8 ####[facility] MIAMINCLIA [id number] [place] [address] [place] Hemoglobin (Bld) [Mass/Vol] 12.0 g/dL Normal 11.5-15.5 [facility] Comment on above: Order Comment: Speci men Type: BLOOD SPECIMENOrdering Facility: [facility] Address: [address] [place] [address] Performed By: #### 5 7021-8 ####[facility] MIAMINCLIA [id number] [place] [address] [place] Immature granulocytes (Bld) [#/Vol] 10*3/uL Normal <0.10 [facility] Comment on above: Order Comment: Speci men Type: BLOOD SPECIMENOrdering Facility: [facility] Address: [address] [place] [address] Performed By: #### 5 7021-8 ####[facility] HARDIKCHLOE [id number] [place] [address] [place] Immature granulocytes/100 WBC (Bld) 0.2 % Normal [facility] Comment on above: Order Comment: Speci men Type: BLOOD SPECIMENOrdering Facility: [facility] Address: [address] [place] [address] Performed By: #### 5 7021-8 ####[facility] MIAMINCSHRINERS H[facility]ALS FOR CHIL[facility]EN [id number] [place] [address] [place] Lymphocytes (Bld) [#/Vol] 1.54 10*3/uL Normal 1.00-4.00 [facility] Comment on above: Order Comment: Speci men Type: BLOOD SPECIMENOrdering Facility: [facility] Address: [address] [place] [address] Performed By: #### 5 7021-8 ####[facility] MIAMINCJane [id number] [address] [place] [facility] Lymphocytes/100 WBC (Bld) 28.4 % Normal [facility] Comment on above: Order Comment: Speci men Type: BLOOD SPECIMENOrdering Facility: [facility] Address: [address] [place] [address] Performed By: #### 5 7021-8 ####[facility] DAYTONLIA [id number] [place] [address] [place] MCH (RBC) [Entitic mass] 29.3 pg Normal 26.0-34.0 [facility] Comment on above: Order Comment: Speci men Type: BLOOD SPECIMENOrdering Facility: [facility] Address: [address] [place] [address] Performed By: #### 5 7021-8 ####[facility] MIAMINCLIA [id number] [place] [address] [place] MCHC (RBC) [Mass/Vol] 33.5 g/dL Normal 30.5-36.0 [facility] Comment on above: Order Comment: Speci men Type: BLOOD SPECIMENOrdering Facility: [facility] Address: [address] [place] [address] Performed By: #### 5 7021-8 ####[facility] DAYTONLIA [id number] [place] [address] [place] MCV (RBC) [Entitic vol] 87.5 fL Normal 80.0-100.0 [facility] Comment on above: Order Comment: Speci men Type: BLOOD SPECIMENOrdering Facility: [facility] Address: [address] [place] [address] Performed By: #### 5 7021-8 ####[facility] [id number] [place] [address] [place] Monocytes (Bld) [#/Vol] 0.35 10*3/uL Normal <0.87 [facility] Comment on above: Order Comment: Speci men Type: BLOOD SPECIMENOrdering Facility: [facility] Address: [address] [place] [address] Performed By: #### 5 7021-8 ####[facility]A [id number] [place] [address] [place] Monocytes/100 WBC (Bld) 6.4 % Normal [facility] Comment on above: Order Comment: Speci men Type: BLOOD SPECIMENOrdering Facility: [facility] Address: [address] [place] [address] Performed By: #### 5 7021-8 ####[facility] MIAMINCLIA [id number] [place] [address] [place] Neutrophils (Bld) [#/Vol] 3.31 10*3/uL Normal 1.45-7.50 [facility] Comment on above: Order Comment: Speci men Type: BLOOD SPECIMENOrdering Facility: [facility] Address: [address] [place] [address] Performed By: #### 5 7021-8 ####[facility] DAYTONLIA [id number] [place] [address] [place] Neutrophils/100 WBC (Bld) 60.9 % Normal [facility] Comment on above: Order Comment: Speci men Type: BLOOD SPECIMENOrdering Facility: [facility] Address: [address] [place] [address] Performed By: #### 5 7021-8 ####[facility] [id number] [place] [address] [place] Nucleated RBC (Bld) [#/Vol] 10*3/uL Normal <0.01 [facility] Comment on above: Order Comment: Speci men Type: BLOOD SPECIMENOrdering Facility: [facility] Address: [address] [place] [address] Performed By: #### 5 7021-8 ####[facility]ENTERA [id number] [place] [address] [place] Nucleated RBC/100 WBC (Bld) [Ratio] 0.0 /100 WBC Normal [facility] Comment on above: Order Comment: Speci men Type: BLOOD SPECIMENOrdering Facility: [facility] Address: [address] [place] [address] Performed By: #### 5 7021-8 ####[facility] [id number] [place] [address] [place] Platelet mean volume (Bld) [Entitic vol] 9.3 fL Normal 9.0-12.7 [facility] Comment on above: Order Comment: Speci men Type: BLOOD SPECIMENOrdering Facility: [facility] Address: [address] [place] [address] Performed By: #### 5 7021-8 ####[facility] JULIETTENCLIA [id number] [place] [address] [place] Platelets (Bld) [#/Vol] 349 10*3/uL Normal 150-400 [facility] Comment on above: Order Comment: Speci men Type: BLOOD SPECIMENOrdering Facility: [facility] Address: [address] [place] [address] Performed By: #### 5 7021-8 ####[facility] HARDIKKALONANCLIA [id number] [place] [address] [place] RBC (Bld) [#/Vol] 4.09 10*6/uL Normal 3.90-5.20 [facility] Comment on above: Order Comment: Speci men Type: BLOOD SPECIMENOrdering Facility: [facility] Address: [address] [place] [address] Performed By: #### 5 7021-8 ####[facility] HARDIKKALONANCLIA [id number] [place] [address] [place] WBC (Bld) [#/Vol] 5.43 10*3/uL Normal 3.70-11.00 [facility] Comment on above: Order Comment: Speci men Type: BLOOD SPECIMENOrdering Facility: [facility] Address: [address] [place] [address] Performed By: #### 5 7021-8 ####[facility] MIAMINCLIA [id number] [place] [address] [place] [facility] [place] Comprehensive metabolic 2000 panelOrdered By: Zaida Rice on 03-27-2024 Albumin [Mass/Vol] 4.2 g/dL 3.9 - 4.9 g/dL [facility] ALP [Catalytic activity/Vol] 87 U/L 34 - 123 U/L [facility] ALT [Catalytic activity/Vol] 17 U/L 7 - 38 U/L [facility] Anion gap [Moles/Vol] 13 mmol/L 8 - 15 mmol/L [facility] AST [Catalytic activity/Vol] 17 U/L 13 - 35 U/L [facility] Bilirubin [Mass/Vol] 0.6 mg/dL 0.2 - 1 .3 mg/dL [facility] Calcium [Mass/Vol] 9.1 mg/dL 8.5 - 10. 2 mg/dL [facility] Chloride [Moles/Vol] 98 mmol/L 98 - 10 7 mmol/L [facility] CO2 [Moles/Vol] 24 mmol/L 22 - 30 mmol/L [facility] Creatinine [Mass/Vol] 0.67 mg/dL 0.58 - 0.96 mg/dL [facility] GFR/1.73 sq M.predicted among non-blacks MDRD (S/P/Bld) [Vol rate/Area] 89 mL/min/{1.73_m2} - PINF [facility] Comment on above: Estimated Glomerular Filtration Rate (eGFR) is calculated using the 2020 CKD-EPI creatinine equation. This equation utilizes serum creatinine, sex, and age as parameters. The creatinine assay has traceable calibration to isotope dilution-mass spectrometry. Refer to KDIGO guidelines for clinical interpretation. In patients with unstable renal function, e.g. those with acute kidney injury, the eGFR may not accurately reflect actual GFR. Glucose [Mass/Vol] 143 mg/dL High 74 - 99 mg/dL [facility] Comment on above: The [place] Diabete [place] Association (ADA) provides guidance for cutoff values for fasting glucose and random glucose. The ADA defines fasting as no caloric intake for at least 8 hours. Fasting plasma glucose results between 100 to 125 mg/dL indicate increased risk for diabetes (prediabetes). Fasting plasma glucose results greater than or equal to 126 mg/dL meet the criteria for diagnosis of diabetes. In the absence of unequivocal hyperglycemia, results should be confirmed by repeat testing. In a patient with classic symptoms of hyperglycemia or hyperglycemic crisis, random plasma glucose results greater than or equal to 200 mg/dL meet the criteria for diagnosis of diabetes. Reference: Standards of Medical Care in Diabetes 2016, [place] Diabetes Association. Diabetes Care. 2016.39(Suppl 1). Interpretation and review of laboratory results Abnormal [facility] Potassium [Moles/Vol] 3.9 mmol/L 3.7 - 5.1 mmol/L [facility] Protein [Mass/Vol] 6.8 g/dL 6.3 - 8.0 g/dL [facility] Sodium [Moles/Vol] 135 mmol/L Low 136 - 144 mmol/L [facility] Urea nitrogen [Mass/Vol] 12 mg/dL 7 - 21 mg/dL [facility] Comprehensive metabolic 2000 panelon 03-27-2024 Albumin [Mass/Vol] 4.2 g/dL Normal 3.9-4.9 [facility] Comment on above: Order Comment: Speci men Type: BLOOD SPECIMENOrdering Facility: [facility] Address: [address] [place] [address] Performed By: #### 2 4323-8 ####[facility] [id number] [place] [address] [place] ALP [Catalytic activity/Vol] 87 U/L Normal 34-123 [facility] Comment on above: Order Comment: Speci men Type: BLOOD SPECIMENOrdering Facility: [facility] Address: [address] [place] [address] Performed By: #### 2 4323-8 ####[facility] [id number] [place] [address] [place] ALT [Catalytic activity/Vol] 17 U/L Normal 7-38 [facility] Comment on above: Order Comment: Speci men Type: BLOOD SPECIMENOrdering Facility: [facility] Address: [address] [place] [address] Performed By: #### 2 4323-8 ####[facility] [id number] [place] [address] [place] Anion gap [Moles/Vol] 13 mmol/L Normal 8-15 [facility] Comment on above: Order Comment: Speci men Type: BLOOD SPECIMENOrdering Facility: [facility] Address: [address] [place] [address] Performed By: #### 2 4323-8 ####[facility] JOI MILLTOWNCLIA [id number] [place] [address] [place] AST [Catalytic activity/Vol] 17 U/L Normal 13-35 [facility] Comment on above: Order Comment: Speci men Type: BLOOD SPECIMENOrdering Facility: [facility] Address: [address] [place] [address] Performed By: #### 2 4323-8 ####[facility]ENTERWNCLIA [id number] [place] [address] [place] Bilirubin [Mass/Vol] 0.6 mg/dL Normal 0.2-1.3 [facility] Comment on above: Order Comment: Speci men Type: BLOOD SPECIMENOrdering Facility: [facility] Address: [address] [place] [address] Performed By: #### 2 4323-8 ####[facility] MIAMINCLIA [id number] [place] [address] [place] Calcium [Mass/Vol] 9.1 mg/dL Normal 8.5-10.2 [facility] Comment on above: Order Comment: Speci men Type: BLOOD SPECIMENOrdering Facility: [facility] Address: [address] [place] [address] Performed By: #### 2 4323-8 ####[facility] CENTERWNCLIA [id number] [place] [address] [place] Chloride [Moles/Vol] 98 mmol/L Normal 98-107 [facility] Comment on above: Order Comment: Speci men Type: BLOOD SPECIMENOrdering Facility: [facility] Address: [address] [place], [place] [address] Performed By: #### 2 4323-8 ####[facility] CENTERWNCLIA [id number] [place] [address] [place] CO2 [Moles/Vol] 24 mmol/L Normal 22-30 [facility] Comment on above: Order Comment: Speci men Type: BLOOD SPECIMENOrdering Facility: [facility] Address: [address] [place] [address] Performed By: #### 2 4323-8 ####[facility] CENTERWNCLI [id number] [place] [address] [place] Creatinine [Mass/Vol] 0.67 mg/dL Normal 0.58-0.96 [facility] Comment on above: Order Comment: Speci men Type: BLOOD SPECIMENOrdering Facility: [facility] Address: [address] [place] [address] Performed By: #### 2 4323-8 ####[facility] MIAMINCLIA [id number] [place] [address] [place] Creatinine and Glomerular filtration rate.predicted panel (S/P/Bld) 89 mL/min/1.73m??? Normal >=60 [facility] Comment on above: Order Comment: Speci men Type: BLOOD SPECIMENOrdering Facility: [facility] Address: [address] [place] [address] Result Comment: Amina mated Glomerular Filtration Rate (eGFR) is calculated using the 2020 CKD-EPI creatinine equation. This equation utilizes serum creatinine, sex, and age as parameters. The creatinine assay has traceable calibration to isotope dilution-mass spectrometry. Refer to KDIGO guidelines for clinical interpretation. In patients with unstable renal function, e.g. those with acute kidney injury, the eGFR may not accurately reflect actual GFR. Performed By: #### 2 4323-8 ####[facility] MIAMINCLIA [id number] [place] [address] [place] Glucose [Mass/Vol] 143 mg/dL High 74-99 [facility] Comment on above: Order Comment: Kimmyi men Type: BLOOD SPECIMENOrdering Facility: [facility] Address: [address] [place] [address] Result Comment: The [place] Diabetes Association (ADA) provides guidance for cutoff values for fasting glucose and random glucose. The ADA defines fasting as no caloric intake for at least 8 hours. Fasting plasma glucose results between 100 to 125 mg/dL indicate increased risk for diabetes (prediabetes).Fasting plasma glucose results greater than or equal to 126 mg/dL meet the criteria for diagnosis of diabetes. In the absence of unequivocal hyperglycemia, results should be confirmed by repeat testing. In a patient with classic symptoms of hyperglycemia or hyperglycemic crisis, random plasma glucose results greater than or equal to 200 mg/dL meet the criteria for diagnosis of diabetes.Reference: Standards of Medical Care in Diabetes 2016, [place] Diabetes Association. Diabetes Care. 2016.39(Suppl 1). Performed By: #### 2 4323-8 ####[facility] MIAMIRAFFY [id number] [place] [address] [place] Potassium [Moles/Vol] 3.9 mmol/L Normal 3.7-5.1 [facility] Comment on above: Order Comment: Speci men Type: BLOOD SPECIMENOrdering Facility: [facility] Address: [address] [id number] Performed By: #### 2 4323-8 ####[facility]TONNENA [id number] [place] [address] [place] Protein [Mass/Vol] 6.8 g/dL Normal 6.3-8.0 [facility] Comment on above: Order Comment: Speci men Type: BLOOD SPECIMENOrdering Facility: [facility] Address: [address] [id number] Performed By: #### 2 4323-8 ####[facility] [id number] [place] [address] [place] Sodium [Moles/Vol] 135 mmol/L Low 136-144 [facility] Comment on above: Order Comment: Speci men Type: BLOOD SPECIMENOrdering Facility: [facility] Address: [address] [id number] Performed By: #### 2 4323-8 ####[facility] JOI SARMIENTOWNCLIA [id number] [place] [address] [place] Urea nitrogen [Mass/Vol] 12 mg/dL Normal 7-21 [facility] Comment on above: Order Comment: Speci men Type: BLOOD SPECIMENOrdering Facility: [facility] Address: [facility] [place] [place] [place] [id number] Performed By: #### 2 4323-8 ####[facility] JOI SARMIENTOWNCLIA [id number] [place] [address] [place] NM PET/CT SKULL-THIGH SUBQon 03-26-2024 NM PET/CT SKULL-THIGH SUBQ * * *Final Report* * * DATE OF EXAM: Mar 26 2024 11:55AM MDP 0063 - NM PET/CT SKULL-THIGH SUBQ / PROCEDURE REASON: multiple diagnoses * * * * Physician Interpretation * * * * EXAMINATION: BODY FDG PET-CT CLINICAL HISTORY: Carcinoma of the breast. History of liver and skeletal metastasis. EXAM CATEGORY: Subsequent treatment strategy. TECHNIQUE: Radiopharmaceutical was administered intravenously followed by PET imaging from the eyes to thighs. Free breathing, low dose CT of the same body region was acquired without IV contrast for attenuation correction and anatomic localization. Unenhanced imaging is limited for the evaluation of some pathology and the acquired CT was not designed to produce diagnostic CT scan quality. Physiologic/non-pathologic uptake in some body regions could confound or obscure some pathology. * CT Dose-Length Product (DLP): 391 mGy*cm * CT Dose Reduction Employed: Yes * Blood glucose: 94 mg/dL * Injection site: Right Forearm-Antecubital * Injected activity: 10.3 mCi * Uptake Time: 57 minutes * Radiopharmaceutical: D21-Grfpvjlidsbboxamlt (FDG) COMPARISON: FDG PET/CT 08/22/2023 CORRELATION: MRI of the abdomen 03/21/2024 RESULT: REFERENCES: FDG uptake is used as a surrogate marker for glucose metabolism. All reported standardized uptake values represent maximum SUV (SUVmax) per body weight, unless otherwise specified. SUV reference values, as follows: * Blood Pool (Descending Aorta): SUVmax 3.1 * Background Liver: SUVmax 3.7; SUVmean 2.7 Localizer Images: No additional findings. HEAD AND NECK: Head: No radiotracer avid lesion or mass effect in the imaged intracranial compartment. Aerodigestive Tract: No radiotracer avid lesion. Lymph Nodes: No radiotracer avid lymphadenopathy. Neck Soft Tissues: No radiotracer avid thyroid nodule. CHEST: Lungs and Pleura: No radiotracer avid mass, nodule, or consolidation. No pleural effusion. Lymph Nodes: No radiotracer avid lymphadenopathy. Mediastinum: No radiotracer avid mass. Small hiatal hernia. Cardiovascular: Blood pool activity. No pericardial effusion. Normal heart size. Chest Wall: No radiotracer avid soft tissue lesion. Discoid seroma anterolateral left chest wall, new compared with prior study. This measures approximately 11.8 x 2.5 cm. ABDOMEN AND PELVIS: Hepatobiliary: No radiotracer avid lesion. No measurable mass. Spleen: No radiotracer avid lesion. No splenomegaly. Pancreas: No radiotracer avid lesion. Adrenals: No radiotracer avid nodule. Urinary Tract: Physiologic radiotracer excretion in the renal collecting systems and urinary bladder. No hydronephrosis. GI Tract: No radiotracer avid lesion. No bowel dilation. Peritoneum: No radiotracer avid lesion. No ascites. Lymph Nodes: No radiotracer avid lymphadenopathy. Vasculature: Blood pool activity. Vascular calcifications without an abdominal aortic aneurysm. Pelvic Organs: No radiotracer avid lesion. MUSCULOSKELETAL: Bones: No radiotracer avid lesion. No lytic or sclerotic lesion. Dense sclerotic lesion T6 vertebral body non-FDG avid unchanged. Soft Tissues: No radiotracer avid lesion. IMPRESSION: Since 08/22/2023, PRIMARY DISEASE SITE: * Benign changes left breast region. Interval development of chest wall seroma LATASHA DISEASE: * No metabolically active regional lymphadenopathy. METASTATIC DISEASE: * No metabolically active distant metastases. ADDITIONAL FINDINGS: * Stable appearing sclerotic T6 lesion nonmetabolically active. Home Care Liaison: YOLIS Transcribe Date/Time: Mar 28 2024 4:04P Dictated by : BHANU RODRIGUEZ MD This examination was interpreted and the report reviewed and electronically signed by: BHANU RODRIGUEZ MD on Mar 28 2024 4:13PM EST [id number] Normal [facility] CBC W Auto Differential pane l (Bld)on 03-07-2024 Basophils (Bld) [#/Vol] 0.08 10*3/uL [facility] Basophils/100 WBC (Bld) 1.4 % [facility] Differential cell count method Nom (Bld) Auto [facility] Eosinophils (Bld) [#/Vol] 0.22 10*3/uL [facility] Eosinophils/100 WBC (Bld) 3.7 % [facility] Erythrocyte distribution width (RBC) [Ratio] 15.7 % High 11.5 - 15.0 % [facility] Hematocrit (Bld) [Volume fraction] 36.4 % 36.0 - 46.0 % [facility] Hemoglobin (Bld) [Mass/Vol] 12.4 g/dL 11.5 - 15.5 g/dL [facility] Immature granulocytes (Bld) [#/Vol] [facility] Immature granulocytes/100 WBC (Bld) 0.2 % [facility] Interpretation and review of laboratory results Abnormal [facility] Lymphocytes (Bld) [#/Vol] 1.77 10*3/uL [facility] Lymphocytes/100 WBC (Bld) 30.2 % [facility] MCH (RBC) [Entitic mass] 29.7 pg 26.0 - 34.0 pg [facility] MCHC (RBC) [Mass/Vol] 34.1 g/dL 30.5 - 36.0 g/dL [facility] MCV (RBC) [Entitic vol] 87.1 fL 80.0 - 100.0 fL [facility] Monocytes (Bld) [#/Vol] 0.38 10*3/uL [facility] Monocytes/100 WBC (Bld) 6.5 % [facility] Neutrophils (Bld) [#/Vol] 3.41 10*3/uL [facility] Neutrophils/100 WBC (Bld) 58.0 % [facility] Nucleated RBC (Bld) [#/Vol] [facility] Nucleated RBC/100 WBC (Bld) [Ratio] 0.0 % /100 WBC [facility] Platelet mean volume (Bld) [Entitic vol] 9.4 fL 9.0 - 12.7 fL [facility] Platelets (Bld) [#/Vol] 377 10*3/uL [facility] RBC (Bld) [#/Vol] 4.18 10*6/uL 3.90 - 5.20 m/uL [facility] WBC (Bld) [#/Vol] 5.87 10*3/uL [facility] Comprehensive metabolic 2000 panelOrdered By: Maryellen Workman on 03-07-2024 Albumin [Mass/Vol] 4.3 g/dL 3.9 - 4.9 g/dL [facility] ALP [Catalytic activity/Vol] 81 U/L 34 - 123 U/L [facility] ALT [Catalytic activity/Vol] 12 U/L 7 - 38 U/L [facility] Anion gap [Moles/Vol] 12 mmol/L 8 - 15 mmol/L [facility] AST [Catalytic activity/Vol] 13 U/L 13 - 35 U/L [facility] Bilirubin [Mass/Vol] 0.7 mg/dL 0.2 - 1 .3 mg/dL [facility] Calcium [Mass/Vol] 9.4 mg/dL 8.5 - 10. 2 mg/dL [facility] Chloride [Moles/Vol] 98 mmol/L 98 - 10 7 mmol/L [facility] CO2 [Moles/Vol] 23 mmol/L 22 - 30 mmol/L [facility] Creatinine [Mass/Vol] 0.63 mg/dL 0.58 - 0.96 mg/dL [facility] GFR/1.73 sq M.predicted among non-blacks MDRD (S/P/Bld) [Vol rate/Area] 91 mL/min/{1.73_m2} - PINF [facility] Comment on above: Estimated Glomerular Filtration Rate (eGFR) is calculated using the 2020 CKD-EPI creatinine equation. This equation utilizes serum creatinine, sex, and age as parameters. The creatinine assay has traceable calibration to isotope dilution-mass spectrometry. Refer to KDIGO guidelines for clinical interpretation. In patients with unstable renal function, e.g. those with acute kidney injury, the eGFR may not accurately reflect actual GFR. Glucose [Mass/Vol] 92 mg/dL 74 - 99 mg/dL [facility] Comment on above: The [place] Di[employer] [place] Association (ADA) provides guidance for cutoff values for fasting glucose and random glucose. The ADA defines fasting as no caloric intake for at least 8 hours. Fasting plasma glucose results between 100 to 125 mg/dL indicate increased risk for diabetes (prediabetes). Fasting plasma glucose results greater than or equal to 126 mg/dL meet the criteria for diagnosis of diabetes. In the absence of unequivocal hyperglycemia, results should be confirmed by repeat testing. In a patient with classic symptoms of hyperglycemia or hyperglycemic crisis, random plasma glucose results greater than or equal to 200 mg/dL meet the criteria for diagnosis of diabetes. Reference: Standards of Medical Care in Diabetes 2016, [place] [employer] Association. Diabetes Care. 2016.39(Suppl 1). Interpretation and review of laboratory results Abnormal [facility] Potassium [Moles/Vol] 4.0 mmol/L 3.7 - 5.1 mmol/L [facility] Protein [Mass/Vol] 7.0 g/dL 6.3 - 8.0 g/dL [facility] Sodium [Moles/Vol] 133 mmol/L Low 136 - 144 mmol/L [facility] Urea nitrogen [Mass/Vol] 15 mg/dL 7 - 21 mg/dL [facility] CBC W Auto Differential pane l (Bld)on 02-15-2024 Basophils (Bld) [#/Vol] 0.10 10*3/uL [facility] Basophils/100 WBC (Bld) 1.5 % [facility] Differential cell count method Nom (Bld) Auto [facility] Eosinophils (Bld) [#/Vol] 0.32 10*3/uL [facility] Eosinophils/100 WBC (Bld) 4.7 % [facility] Erythrocyte distribution width (RBC) [Ratio] 15.2 % High 11.5 - 15.0 % [facility] Hematocrit (Bld) [Volume fraction] 36.0 % 36.0 - 46.0 % [facility] Hemoglobin (Bld) [Mass/Vol] 12.1 g/dL 11.5 - 15.5 g/dL [facility] Immature granulocytes (Bld) [#/Vol] [facility] Immature granulocytes/100 WBC (Bld) 0.3 % [facility] Interpretation and review of laboratory results Abnormal [facility] Lymphocytes (Bld) [#/Vol] 2.02 10*3/uL [facility] Lymphocytes/100 WBC (Bld) 29.7 % [facility] MCH (RBC) [Entitic mass] 29.4 pg 26.0 - 34.0 pg [facility] MCHC (RBC) [Mass/Vol] 33.6 g/dL 30.5 - 36.0 g/dL [facility] MCV (RBC) [Entitic vol] 87.6 fL 80.0 - 100.0 fL [facility] Monocytes (Bld) [#/Vol] 0.41 10*3/uL NINF [facility] Monocytes/100 WBC (Bld) 6.0 % [facility] Neutrophils (Bld) [#/Vol] 3.92 10*3/uL [facility] Neutrophils/100 WBC (Bld) 57.8 % [facility] Nucleated RBC (Bld) [#/Vol] NINF [facility] Nucleated RBC/100 WBC (Bld) [Ratio] 0.0 % /100 WBC [facility] Platelet mean volume (Bld) [Entitic vol] 9.0 fL 9.0 - 12.7 fL [facility] Platelets (Bld) [#/Vol] 392 10*3/uL [facility] RBC (Bld) [#/Vol] 4.11 10*6/uL 3.90 - 5.20 m/uL [facility] WBC (Bld) [#/Vol] 6.79 10*3/uL [facility] Comprehensive metabolic 2000 panelOrdered By: Frances Cotton on 02-15-2024 Albumin [Mass/Vol] 4.2 g/dL 3.9 - 4.9 g/dL [facility] ALP [Catalytic activity/Vol] 87 U/L 34 - 123 U/L [facility] ALT [Catalytic activity/Vol] 13 U/L 7 - 38 U/L [facility] Anion gap [Moles/Vol] 11 mmol/L 8 - 15 mmol/L [facility] AST [Catalytic activity/Vol] 15 U/L 13 - 35 U/L [facility] Bilirubin [Mass/Vol] 0.5 mg/dL 0.2 - 1 .3 mg/dL [facility] Calcium [Mass/Vol] 9.3 mg/dL 8.5 - 10. 2 mg/dL [facility] Chloride [Moles/Vol] 98 mmol/L 98 - 10 7 mmol/L [facility] CO2 [Moles/Vol] 22 mmol/L 22 - 30 mmol/L [facility] Creatinine [Mass/Vol] 0.67 mg/dL 0.58 - 0.96 mg/dL [facility] GFR/1.73 sq M.predicted among non-blacks MDRD (S/P/Bld) [Vol rate/Area] 90 mL/min/{1.73_m2} - PINF [facility] Comment on above: Estimated Glomerular Filtration Rate (eGFR) is calculated using the 2020 CKD-EPI creatinine equation. This equation utilizes serum creatinine, sex, and age as parameters. The creatinine assay has traceable calibration to isotope dilution-mass spectrometry. Refer to KDIGO guidelines for clinical interpretation. In patients with unstable renal function, e.g. those with acute kidney injury, the eGFR may not accurately reflect actual GFR. Glucose [Mass/Vol] 113 mg/dL High 74 - 99 mg/dL [facility] Comment on above: The [place] Diab[employer] Association (ADA) provides guidance for cutoff values for fasting glucose and random glucose. The ADA defines fasting as no caloric intake for at least 8 hours. Fasting plasma glucose results between 100 to 125 mg/dL indicate increased risk for diabetes (prediabetes). Fasting plasma glucose results greater than or equal to 126 mg/dL meet the criteria for diagnosis of diabetes. In the absence of unequivocal hyperglycemia, results should be confirmed by repeat testing. In a patient with classic symptoms of hyperglycemia or hyperglycemic crisis, random plasma glucose results greater than or equal to 200 mg/dL meet the criteria for diagnosis of diabetes. Reference: Standards of Medical Care in Diabetes 2016, [place] [employer] Association. Diabetes Care. 2016.39(Suppl 1). Interpretation and review of laboratory results Abnormal [facility] Potassium [Moles/Vol] 4.2 mmol/L 3.7 - 5.1 mmol/L [facility] Protein [Mass/Vol] 6.8 g/dL 6.3 - 8.0 g/dL [facility] Sodium [Moles/Vol] 131 mmol/L Low 136 - 144 mmol/L [facility] Urea nitrogen [Mass/Vol] 16 mg/dL 7 - 21 mg/dL [facility] CBC W Auto Differential pane l (Bld)on 01-26-2024 Basophils (Bld) [#/Vol] 0.09 10*3/uL NINF [facility] Basophils/100 WBC (Bld) 1.5 % [facility] Differential cell count method Nom (Bld) Auto [facility] Eosinophils (Bld) [#/Vol] 0.13 10*3/uL [facility] Eosinophils/100 WBC (Bld) 2.2 % [facility] Erythrocyte distribution width (RBC) [Ratio] 14.7 % 11.5 - 15.0 % [facility] Hematocrit (Bld) [Volume fraction] 36.4 % 36.0 - 46.0 % [facility] Hemoglobin (Bld) [Mass/Vol] 12.2 g/dL 11.5 - 15.5 g/dL [facility] Immature granulocytes (Bld) [#/Vol] [facility] Immature granulocytes/100 WBC (Bld) 0.2 % [facility] Lymphocytes (Bld) [#/Vol] 1.70 10*3/uL [facility] Lymphocytes/100 WBC (Bld) 28.7 % [facility] MCH (RBC) [Entitic mass] 29.7 pg 26.0 - 34.0 pg [facility] MCHC (RBC) [Mass/Vol] 33.5 g/dL 30.5 - 36.0 g/dL [facility] MCV (RBC) [Entitic vol] 88.6 fL 80.0 - 100.0 fL [facility] Monocytes (Bld) [#/Vol] 0.39 10*3/uL [facility] Monocytes/100 WBC (Bld) 6.6 % [facility] Neutrophils (Bld) [#/Vol] 3.60 10*3/uL [facility] Neutrophils/100 WBC (Bld) 60.8 % [facility] Nucleated RBC (Bld) [#/Vol] [facility] Nucleated RBC/100 WBC (Bld) [Ratio] 0.0 % /100 WBC [facility] Platelet mean volume (Bld) [Entitic vol] 9.1 fL 9.0 - 12.7 fL [facility] Platelets (Bld) [#/Vol] 386 10*3/uL [facility] RBC (Bld) [#/Vol] 4.11 10*6/uL 3.90 - 5.20 m/uL [facility] WBC (Bld) [#/Vol] 5.92 10*3/uL [facility] Comprehensive metabolic 2000 panelOrdered By: Zaida Rice on 01-26-2024 Albumin [Mass/Vol] 4.3 g/dL 3.9 - 4.9 g/dL [facility] ALP [Catalytic activity/Vol] 91 U/L 34 - 123 U/L [facility] ALT [Catalytic activity/Vol] 13 U/L 7 - 38 U/L [facility] Anion gap [Moles/Vol] 11 mmol/L 8 - 15 mmol/L [facility] AST [Catalytic activity/Vol] 16 U/L 13 - 35 U/L [facility] Bilirubin [Mass/Vol] 0.3 mg/dL 0.2 - 1 .3 mg/dL [facility] Calcium [Mass/Vol] 9.5 mg/dL 8.5 - 10. 2 mg/dL [facility] Chloride [Moles/Vol] 97 mmol/L Low 98 - 10 7 mmol/L [facility] CO2 [Moles/Vol] 22 mmol/L 22 - 30 mmol/L [facility] Creatinine [Mass/Vol] 0.78 mg/dL 0.58 - 0.96 mg/dL [facility] GFR/1.73 sq M.predicted among non-blacks MDRD (S/P/Bld) [Vol rate/Area] 78 mL/min/{1.73_m2} - PINF [facility] Comment on above: Estimated Glomerular Filtration Rate (eGFR) is calculated using the 2020 CKD-EPI creatinine equation. This equation utilizes serum creatinine, sex, and age as parameters. The creatinine assay has traceable calibration to isotope dilution-mass spectrometry. Refer to KDIGO guidelines for clinical interpretation. In patients with unstable renal function, e.g. those with acute kidney injury, the eGFR may not accurately reflect actual GFR. Glucose [Mass/Vol] 110 mg/dL High 74 - 99 mg/dL [facility] Comment on above: The [place] Diab[employer] Association (ADA) provides guidance for cutoff values for fasting glucose and random glucose. The ADA defines fasting as no caloric intake for at least 8 hours. Fasting plasma glucose results between 100 to 125 mg/dL indicate increased risk for diabetes (prediabetes). Fasting plasma glucose results greater than or equal to 126 mg/dL meet the criteria for diagnosis of diabetes. In the absence of unequivocal hyperglycemia, results should be confirmed by repeat testing. In a patient with classic symptoms of hyperglycemia or hyperglycemic crisis, random plasma glucose results greater than or equal to 200 mg/dL meet the criteria for diagnosis of diabetes. Reference: Standards of Medical Care in Diabetes 2016, [place] [employer] Association. Diabetes Care. 2016.39(Suppl 1). Interpretation and review of laboratory results Abnormal [facility] Potassium [Moles/Vol] 4.5 mmol/L 3.7 - 5.1 mmol/L [facility] Protein [Mass/Vol] 6.9 g/dL 6.3 - 8.0 g/dL [facility] Sodium [Moles/Vol] 130 mmol/L Low 136 - 144 mmol/L [facility] Urea nitrogen [Mass/Vol] 15 mg/dL 7 - 21 mg/dL [facility] CNOVon 01-06-2024 CNOV Office Visit (GENSF) DANETTE BISHOP ([id number]) 1945 F Date Time Provider Department 01/06/24 2:00 PM CALLIE SULLIVAN During your visit today, we recorded the following information about you: Kelly Aguayo LPN 01/06/2024 8:47 AM Signed Follow up to drain and infection : Is the patient active on MyChart No: Yes Electronically Signed By: Kelly Aguayo LPN In Department: GENERAL SURGERY REVIEW OF PATIENT HISTORY: OB History T2 L1 SAB0 IAB0 Ectopic0 Multiple0 Live Births0 Comment: .Menarche: 12; Age at 1st : 25; Post menopausal FAMILY HISTORY Problem Relation Age of Onset Colon Cancer Mother mets to stomach Stroke Father at age 62 Breast Cancer Sister 85 Heart disease Paternal Grandmother CAD PAST MEDICAL HISTORY 2013: Breast cancer (HCC) Comment: left 04/2023: Breast cancer (HCC) Comment: local recurrence on left 2009: GI bleed No date: Hypertension No date: Liver nodule 2013: TIA (transient ischemic attack) PAST SURGICAL HISTORY No date: COLONOSCOPY Comment: every 5 yrs due to f/h colon cqan all normal per pt No date: EGD Comment: GERD 09/01/2020: EGD Comment: Repeat in 2 years 09/29/2020: INSJ TUNNELED CTR VAD W/SUBQ PORT AGE 5 YR/> No date: PAST SURGICAL HISTORY OF Comment: thyroid removal No date: PAST SURGICAL HISTORY OF Comment: left breast 2 episodes of DCIS No date: PAST SURGICAL HISTORY OF Comment: back surgeries times 2 Social History Tobacco Use Smoking status: Former Years: 2 Types: Cigarettes Quit date: 09/16/1965 Years since quittin.3 Smokeless tobacco: Never Tobacco comments: Pt smoked 2-3 cigarettes daily x 2 years. Vaping Use Vaping Use: Never used Substance Use Topics Alcohol use: Yes Comment: moderate Drug use: No Callie Sullivan PA-C 01/06/2024 9:36 AM Signed This is a 78 year old female s/p left mastectomy chronic seroma drainage and revision on 12/06/2023. She was last seen at her post operative appointment on 12/23/2023. Pathology was reviewed and she was to return when drainage was below 30 cc for 48 hrs. In the interim, patient contacted her PCP reporting redness in the surgical site over the weekend and was placed on Bactrim DS on 01/02/2024. She reports the redness has greatly decreased and drainage has been 45 cc in the last 48 hrs. Patient is here today for a wound check and for drain removal.. Exam: LEFT breast surgically absent Incision line is clean, dry and intact with very mild pink color noted laterally. No discharge, no warmth or edema. MATTI drain patent with serosanguinous fluid noted in bulb, removed today without problems. Patient tolerated procedure well. Impression: Danette Bishop is a 78 year old female who is s/p a LEFT mastectomy chronic seroma drainage and revision on 12/06/23. 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 Matos examined the patient. Patient instructed to complete the course of Antibiotic as prescribed. She was advised to use the ADRIÁN wrap as directed in hopes of increasing the skin adherence to the muscle, thereby decreasing cavity space/seroma formation for one week, then no need to re-wrap. Encourage to be aware of over extending her arm in order to prevent stress on the incision site. Patient instructed on the signs and symptoms of infection including: redness, fever, draining, edema, pain. Patient instructed on the signs and symptoms of seroma including: edema and discomfort. She will call with any questions or concerns and follow up with Ms Allie CNP, (Medical Oncology) as scheduled next month. 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 - clopidogrel (PLAVIX) 75 mg tablet Take 1 tablet by mouth once daily. Patient should start on December 20, 2023. - HYDROcodone-acetaminophen (NORCO) 5-325 mg per tablet Take 1 tablet by mouth every 6 hours as needed for pain for up to 3 days. - D-MANNOSE ORAL Take 1 tablet by mouth once daily. - letrozole (FEMARA) 2.5 mg tablet Take 1 tablet by mouth once daily. - Ascorbic Acid (VITAMIN C) 1,000 mg tablet Take 1,000 mg by mouth o (more content not included)... Normal [facility] CBC W Auto Differential pane l (Bld)on 01-03-2024 Basophils (Bld) [#/Vol] 0.06 10*3/uL [facility] Basophils/100 WBC (Bld) 0.6 % [facility] Differential cell count method Nom (Bld) Auto [facility] Eosinophils (Bld) [#/Vol] 0.11 10*3/uL [facility] Eosinophils/100 WBC (Bld) 1.0 % [facility] Erythrocyte distribution width (RBC) [Ratio] 14.6 % 11.5 - 15.0 % [facility] Hematocrit (Bld) [Volume fraction] 33.0 % Low 36.0 - 46.0 % [facility] Hemoglobin (Bld) [Mass/Vol] 11.1 g/dL Low 11.5 - 15.5 g/dL [facility] Immature granulocytes (Bld) [#/Vol] 0.03 10*3/uL [facility] Immature granulocytes/100 WBC (Bld) 0.3 % [facility] Interpretation and review of laboratory results Abnormal [facility] Lymphocytes (Bld) [#/Vol] 2.87 10*3/uL [facility] Lymphocytes/100 WBC (Bld) 27.2 % [facility] MCH (RBC) [Entitic mass] 29.4 pg 26.0 - 34.0 pg [facility] MCHC (RBC) [Mass/Vol] 33.6 g/dL 30.5 - 36.0 g/dL [facility] MCV (RBC) [Entitic vol] 87.5 fL 80.0 - 100.0 fL [facility] Monocytes (Bld) [#/Vol] 0.77 10*3/uL [facility] Monocytes/100 WBC (Bld) 7.3 % [facility] Neutrophils (Bld) [#/Vol] 6.70 10*3/uL [facility] Neutrophils/100 WBC (Bld) 63.6 % [facility] Nucleated RBC (Bld) [#/Vol] [facility] Nucleated RBC/100 WBC (Bld) [Ratio] 0.0 % /100 WBC [facility] Platelet mean volume (Bld) [Entitic vol] 9.4 fL 9.0 - 12.7 fL [facility] Platelets (Bld) [#/Vol] 355 10*3/uL [facility] RBC (Bld) [#/Vol] 3.77 10*6/uL Low 3.90 - 5.20 m/uL [facility] WBC (Bld) [#/Vol] 10.54 10*3/uL [facility] Comprehensive metabolic 2000 panelOrdered By: Zaida Rice on 01-03-2024 Albumin [Mass/Vol] 3.9 g/dL 3.9 - 4.9 g/dL [facility] ALP [Catalytic activity/Vol] 80 U/L 34 - 123 U/L [facility] ALT [Catalytic activity/Vol] 10 U/L 7 - 38 U/L [facility] Anion gap [Moles/Vol] 9 mmol/L 8 - 15 mmol/L [facility] AST [Catalytic activity/Vol] 13 U/L 13 - 35 U/L [facility] Bilirubin [Mass/Vol] 0.5 mg/dL 0.2 - 1 .3 mg/dL [facility] Calcium [Mass/Vol] 9.0 mg/dL 8.5 - 10. 2 mg/dL [facility] Chloride [Moles/Vol] 98 mmol/L 98 - 10 7 mmol/L [facility] CO2 [Moles/Vol] 24 mmol/L 22 - 30 mmol/L [facility] Creatinine [Mass/Vol] 0.78 mg/dL 0.58 - 0.96 mg/dL [facility] GFR/1.73 sq M.predicted among non-blacks MDRD (S/P/Bld) [Vol rate/Area] 78 mL/min/{1.73_m2} - PINF [facility] Comment on above: Estimated Glomerular Filtration Rate (eGFR) is calculated using the 2020 CKD-EPI creatinine equation. This equation utilizes serum creatinine, sex, and age as parameters. The creatinine assay has traceable calibration to isotope dilution-mass spectrometry. Refer to KDIGO guidelines for clinical interpretation. In patients with unstable renal function, e.g. those with acute kidney injury, the eGFR may not accurately reflect actual GFR. Glucose [Mass/Vol] 85 mg/dL 74 - 99 mg/dL [facility] Comment on above: The [place] Di[employer] [place] Association (ADA) provides guidance for cutoff values for fasting glucose and random glucose. The ADA defines fasting as no caloric intake for at least 8 hours. Fasting plasma glucose results between 100 to 125 mg/dL indicate increased risk for diabetes (prediabetes). Fasting plasma glucose results greater than or equal to 126 mg/dL meet the criteria for diagnosis of diabetes. In the absence of unequivocal hyperglycemia, results should be confirmed by repeat testing. In a patient with classic symptoms of hyperglycemia or hyperglycemic crisis, random plasma glucose results greater than or equal to 200 mg/dL meet the criteria for diagnosis of diabetes. Reference: Standards of Medical Care in Diabetes 2016, [place] Diabetes Association. Diabetes Care. 2016.39(Suppl 1). Interpretation and review of laboratory results Abnormal [facility] Potassium [Moles/Vol] 4.0 mmol/L 3.7 - 5.1 mmol/L [facility] Protein [Mass/Vol] 6.8 g/dL 6.3 - 8.0 g/dL [facility] Sodium [Moles/Vol] 131 mmol/L Low 136 - 144 mmol/L [facility] Urea nitrogen [Mass/Vol] 13 mg/dL 7 - 21 mg/dL [facility] CNPAlena 12-30-2023 CNPN Telephone (GENSF) DANETTE BISHOP ([id number]) 1945 F Date Time Provider Department 12/30/23 FREDA MATOS During your visit today, we recorded the following information about you: Kelly Robles MA 12/30/2023 9:[address] [facility] Discharge Summary Allergies As of Date: 12/30/2023 Noted Allergy Reaction ADHESIVE TAPE-SILICONES 10/27/2020 2 - Rash SHELLFISH DERIVED 08/08/2020 7 - Swelling Date Reviewed: 12/23/2023 Reviewed by: Kelly Aguayo LPN - Fully Assessed Reason for Visit: Patient Update [1234] Prescriptions as of 12/30/2023 - clopidogrel (PLAVIX) 75 mg tablet Take 1 tablet by mouth once daily. Patient should start on December 20, 2023. - HYDROcodone-acetaminophen (NORCO) 5-325 mg per tablet Take 1 tablet by mouth every 6 hours as needed for pain for up to 3 days. - D-MANNOSE ORAL Take 1 tablet by mouth once daily. - letrozole (FEMARA) 2.5 mg tablet Take 1 tablet by mouth once daily. - Ascorbic Acid (VITAMIN C) 1,000 mg tablet Take 1,000 mg by mouth once daily. - FLUoxetine (PROZAC) 40 mg capsule Take 1 capsule by mouth once daily. - multivitamin tablet Take 1 tablet by mouth once daily. - levothyroxine (SYNTHROID) 112 mcg tablet Take 112 mcg by mouth once daily. - promethazine (PHENERGAN) 25 mg tablet Take 1 tablet by mouth every 6 hours as needed. FOR NAUSEA - liothyronine (CYTOMEL) 5 mcg tablet Take 5 mcg by mouth once daily. - lisinopril (ZESTRIL, PRINIVIL) 20 mg tablet Take 20 mg by mouth once daily. - esomeprazole (NEXIUM) 40 mg capsule Take 40 mg by mouth DAILY (6 AM). - ACETAMINOPHEN (TYLENOL ORAL) Take by mouth. - zolpidem (AMBIEN) 10 mg tab Take 10 mg by mouth daily at bedtime. - ALPRAZolam (XANAX) 0.5 mg tablet Take 0.5 mg by mouth at bedtime as needed. Facility-Administered Medications as of 12/30/2023 - perflutren lipid microspheres 1.3 mL in NaCl (PF) 0.9% 10 mL injection (DEFINITY) - sodium chloride 0.9 % (flush) 10 mL (BD POSIFLUSH) Problem List As Of Date 12/30/2023 Noted Resolved 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, right (HCC*08/29/2020 HER2-positive carcinoma of left breast (HCC) [C*08/29/2020 Local recurrence of cancer of left breast (HCC)*04/26/2022 Stage IV breast cancer in female (HCC) [C50.919]04/26/2022 Sleep apnea [G47.30] 06/20/2023 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] 12/31/2022 Hypothyroidism, unspecified [E03.9] 02/15/2022 TIA (transient ischemic attack) [G45.9] 06/20/2023 Grade I diastolic dysfunction [I51.89] 06/20/2023 Anxiety and depression [F41.9, F32.A] 06/20/2023 BCC (basal cell carcinoma of skin) [C44.91] 06/20/2023 Chronic back pain [M54.9, G89.29] 06/20/2023 Carcinoma of left breast, stage 4 (HCC) [C50.91*08/15/2023 Seroma of breast [N64.89] 08/15/2023 Encounter Status:Closed by KELLY ROBLES on 12/30/23 [facility] CNOVon 12-23-2023 CNOV Office Visit (GENSF) DANETTE BISHOP ([id number]) 1945 F Date Time Provider Department 12/23/23 11:00 AM FREDA MATOS GENSF During your visit today, we recorded the following information about you: Kelly Aguayo LPN 12/23/2023 11:23 AM Signed Post op Last mammogram on: 03/16/23 bilateral Results: see report Is the patient active on [facility] Logics Yes Electronically Signed By: Kelly Aguayo LPN In Department: GENERAL SURGERY REVIEW OF PATIENT HISTORY: OB History T2 L1 SAB0 IAB0 Ectopic0 Multiple0 Live Births0 Comment: .Menarche: 12; Age at 1st : 25; Post menopausal FAMILY HISTORY Problem Relation Age of Onset Colon Cancer Mother mets to stomach Stroke Father at age 62 Breast Cancer Sister 85 Heart disease Paternal Grandmother CAD PAST MEDICAL HISTORY Diagnosis Date Breast cancer (HCC) 2012 left Breast cancer (HCC) 04/2023 local recurrence on left GI bleed 2008 Hypertension Liver nodule TIA (transient ischemic attack) 2012 PAST SURGICAL HISTORY Procedure Laterality Date COLONOSCOPY every 5 yrs due to f/h colon cqan all normal per pt EGD GERD EGD 09/01/2020 Repeat in 2 years INSJ TUNNELED CTR VAD W/SUBQ PORT AGE 5 YR/> 09/29/2020 PAST SURGICAL HISTORY OF thyroid removal PAST SURGICAL HISTORY OF left breast 2 episodes of DCIS PAST SURGICAL HISTORY OF back surgeries times 2 Social History Tobacco Use Smoking status: Former Years: 2 Types: Cigarettes Quit date: 09/16/1965 Years since quittin.3 Smokeless tobacco: Never Tobacco comments: Pt smoked 2-3 cigarettes daily x 2 years. Vaping Use Vaping Use: Never used Substance Use Topics Alcohol use: Yes Comment: moderate Drug use: No Freda Matos DO 12/27/2023 4:34 PM Signed REASON FOR TODAY'S VISIT: Patient presents with: Post Op HISTORY of PRESENT ILLNESS: Danette Bishop is a 78 year old female who is s/p a LEFT mastectomy chronic seroma drainage and revision on 12/06/23 She reports > 30ml of daily drainage output from the Drain for the past 2 days. She denies any redness, bruising, swelling or discharge from the incision. She denies any fever or chills. Pain of the surgical site is reported as minimal and intermittent.. SURGICAL PATHOLOGY: 12/06/23 FINAL DIAGNOSIS A: Breast, left, mastectomy seroma capsule, excision: - Densely sclerotic fibrous tissue associated with microcalcifications, consistent with seroma capsule. - Prior procedure site changes. - Skin with no significant histopathologic abnormalities. B: Breast, left, lateral margin, excision: - Skin and subcutaneous tissue with no significant histopathologic abnormalities. BREAST EXAMINATION: The patient was examined in the upright position. RIGHT breast mastectomy with horizontal incision healing. No seroma or hematoma, MATTI in place, draining too much to be removed Incision flat RIGHT UE no lymphedema, good ROM IMPRESSION: Danette Bishop is a 78 year old female who is s/p a LEFT mastectomy chronic seroma drainage and revision on 12/06/23. 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 All questions were answered and had no further concerns. Hold on the ADRIÁN wrap for now Will re wrap once the MATTI is removed Will call to have MATTI removed when less than 20 cc for 3 days Continue with US ROM exercises She has our names and numbers to stay in touch if she has any questions, concerns or problems in the interim. 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 Patient should start on December 20, 2023. - HYDROcodone-acetaminophen (NORCO) 5-325 mg per tablet Take 1 tablet by mouth every 6 hours as needed for pain for up to 3 days. - D-MANNOSE ORAL Take 1 tablet by mouth once daily. - letrozole (FEMARA) 2.5 mg tablet Take 1 tablet by mouth once daily. - Ascorbic Acid (VITAMIN C) 1,000 mg tablet Take 1,000 mg by mouth once daily. - FLUoxetine (PROZAC) 40 mg capsule (more content not included)... Normal [facility] CBC W Auto Differential pane l (Bld)on 12-16-2023 Basophils (Bld) [#/Vol] 0.09 10*3/uL [facility] Basophils/100 WBC (Bld) 1.3 % [facility] Differential cell count method Nom (Bld) Auto [facility] Eosinophils (Bld) [#/Vol] 0.16 10*3/uL [facility] Eosinophils/100 WBC (Bld) 2.3 % [facility] Erythrocyte distribution width (RBC) [Ratio] 14.9 % 11.5 - 15.0 % [facility] Hematocrit (Bld) [Volume fraction] 34.6 % Low 36.0 - 46.0 % [facility] Hemoglobin (Bld) [Mass/Vol] 11.4 g/dL Low 11.5 - 15.5 g/dL [facility] Immature granulocytes (Bld) [#/Vol] [facility] Immature granulocytes/100 WBC (Bld) 0.3 % [facility] Interpretation and review of laboratory results Abnormal [facility] Lymphocytes (Bld) [#/Vol] 2.15 10*3/uL [facility] Lymphocytes/100 WBC (Bld) 30.4 % [facility] MCH (RBC) [Entitic mass] 29.4 pg 26.0 - 34.0 pg [facility] MCHC (RBC) [Mass/Vol] 32.9 g/dL 30.5 - 36.0 g/dL [facility] MCV (RBC) [Entitic vol] 89.2 fL 80.0 - 100.0 fL [facility] Monocytes (Bld) [#/Vol] 0.58 10*3/uL NINF [facility] Monocytes/100 WBC (Bld) 8.2 % [facility] Neutrophils (Bld) [#/Vol] 4.08 10*3/uL [facility] Neutrophils/100 WBC (Bld) 57.5 % [facility] Nucleated RBC (Bld) [#/Vol] NINF [facility] Nucleated RBC/100 WBC (Bld) [Ratio] 0.0 % /100 WBC [facility] Platelet mean volume (Bld) [Entitic vol] 9.4 fL 9.0 - 12.7 fL [facility] Platelets (Bld) [#/Vol] 365 10*3/uL [facility] RBC (Bld) [#/Vol] 3.88 10*6/uL Low 3.90 - 5.20 m/uL [facility] WBC (Bld) [#/Vol] 7.08 10*3/uL [facility] Comprehensive metabolic 2000 panelOrdered By: Zaida Rice on 12-16-2023 Albumin [Mass/Vol] 4.0 g/dL 3.9 - 4.9 g/dL [facility] ALP [Catalytic activity/Vol] 86 U/L 34 - 123 U/L [facility] ALT [Catalytic activity/Vol] 11 U/L 7 - 38 U/L [facility] Anion gap [Moles/Vol] 11 mmol/L 8 - 15 mmol/L [facility] AST [Catalytic activity/Vol] 11 U/L Low 13 - 35 U/L [facility] Bilirubin [Mass/Vol] 0.4 mg/dL 0.2 - 1 .3 mg/dL [facility] Calcium [Mass/Vol] 9.0 mg/dL 8.5 - 10. 2 mg/dL [facility] Chloride [Moles/Vol] 101 mmol/L 98 - 10 7 mmol/L [facility] CO2 [Moles/Vol] 25 mmol/L 22 - 30 mmol/L [facility] Creatinine [Mass/Vol] 0.72 mg/dL 0.58 - 0.96 mg/dL [facility] GFR/1.73 sq M.predicted among non-blacks MDRD (S/P/Bld) [Vol rate/Area] 86 mL/min/{1.73_m2} - PINF [facility] Comment on above: Estimated Glomerular Filtration Rate (eGFR) is calculated using the 2020 CKD-EPI creatinine equation. This equation utilizes serum creatinine, sex, and age as parameters. The creatinine assay has traceable calibration to isotope dilution-mass spectrometry. Refer to KDIGO guidelines for clinical interpretation. In patients with unstable renal function, e.g. those with acute kidney injury, the eGFR may not accurately reflect actual GFR. Glucose [Mass/Vol] 103 mg/dL High 74 - 99 mg/dL [facility] Comment on above: The [place] Diabete s Association (ADA) provides guidance for cutoff values for fasting glucose and random glucose. The ADA defines fasting as no caloric intake for at least 8 hours. Fasting plasma glucose results between 100 to 125 mg/dL indicate increased risk for diabetes (prediabetes). Fasting plasma glucose results greater than or equal to 126 mg/dL meet the criteria for diagnosis of diabetes. In the absence of unequivocal hyperglycemia, results should be confirmed by repeat testing. In a patient with classic symptoms of hyperglycemia or hyperglycemic crisis, random plasma glucose results greater than or equal to 200 mg/dL meet the criteria for diagnosis of diabetes. Reference: Standards of Medical Care in Diabetes 2016, [place] Diabetes Association. Diabetes Care. 2016.39(Suppl 1). Interpretation and review of laboratory results Abnormal [facility] Potassium [Moles/Vol] 4.1 mmol/L 3.7 - 5.1 mmol/L [facility] Protein [Mass/Vol] 6.6 g/dL 6.3 - 8.0 g/dL [facility] Sodium [Moles/Vol] 137 mmol/L 136 - 144 mmol/L [facility] Urea nitrogen [Mass/Vol] 16 mg/dL 7 - 21 mg/dL [facility] ANES POSTPROC EVALon 024 ANES POSTPROC EVAL HNO ID: [id number] Author: ELKE STEWART MD Service: Anesthesiology Author Type: Anesthesiologist Type: Anesthesia Postprocedure Evaluation Filed: 12/06/2023 13:51 Note Text: POST ANESTHESIA EVALUATION NOTE : 1945 Procedure Summary Date: 12/06/23 Room / Location: [facility] OR03 / [facility] OR Anesthesia Start: 1044 Anesthesia Stop: 1316 Procedures: INCISION AND DRAINAGE OF SEROMA (Left: Breast) REVISION SCAR BREAST > 4.0CM (Left: Breast) Diagnosis: Seroma of breast Excessive and redundant skin and subcutaneous tissue (Seroma of breast [N64.89]) (Excessive and redundant skin and subcutaneous tissue [L98.7]) Surgeons: Freda Matos DO Responsible Provider: Elke Stewart MD Anesthesia Type: general ASA Status: 3 Anesthesia Type: general Airway Type: LMA Last Vitals Vitals Value Taken Time BP 203/84 12/06/23 1347 Temp 37.8 ?C (100 ?F) 12/06/23 1312 Pulse 82 12/06/23 1350 Resp 13 12/06/23 1350 SpO2 96 % 12/06/23 1350 Vitals shown include unfiled device data. Post Anesthesia Patient Status Patient Evaluation: PACU. PACU/ICU Patient Condition: stable. Anticipated Disposition: inpatient floor planned admission. Neurological Status: aware and responsive. Pulmonary Status: breathing comfortably on supplemental oxygen Airway Control: returned to baseline unsupported. Cardiovascular Status: stable. Pain Management: clinically adequate - multimodal analgesia pain management approach Postoperative Hydration: acceptable. Intraoperative Events: no significant anesthesia events Post Operative Nausea/Vomiting Status: no significant post operative nausea or vomiting Recommendation: continue current plan of care. Other Remarks: HTn, treating with anti-hypertensive. Anesthesia Observations No Documentation SIGNATURE: Elke Stewart MD PATIENT NAME: Danette Bishop DATE: December 06, 2023 TIME: 1:51 PM CSN: [id number] [facility] ANES PRE-OPon 12-06-2023 ANES PRE-OP HNO ID: [id number] Author: SAM ADKINS MD Service: Anesthesiology Author Type: Anesthesiologist Type: Anesthesia Preprocedure Evaluation Filed: 12/06/2023 09:57 Note Text: ANESTHESIOLOGY DAY OF SURGERY NOTE : 1945 Procedure Information Date/Time: 12/06/23 0920 Procedures: INCISION AND DRAINAGE OF SEROMA (Left: Breast) REVISION SCAR BREAST > 4.0CM (Left: Breast) Location: [facility] OR03 / [facility] OR Surgeons: Freda Matos, Estimated body mass index is 29.1 kg/m? as calculated from the following: Height as of 11/21/23: 154.9 cm (5' 1"). Weight as of 11/23/23: 69.9 kg (154 lb). Most recent hematocrit and potassium results: Hematocrit 35.4 11/22/2023 Potassium 3.9 11/22/2023 Relevant Problems ANESTHESIA (+) Sleep apnea ENDO (+) Hypothyroidism, unspecified -RENAL (+) 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, right (HCC) NEURO-PSYCH (+) History of Posadas's esophagus (+) TIA (transient ischemic attack) PULMONARY (+) Sleep apnea I - PHYSICAL EVALUATION AIRWAY Patient intubated: No. Tracheostomy tube not present Mallampati: I. TM distance: >3 FB. Neck ROM: full ROM without neurological symptoms. Mouth opening: adequate. Short neck: no. Thick neck: no DENTAL Dentures, upper: complete. Dentures, lower: complete. Additional exam findings: yes. CARDIOVASCULAR Rate: normal PULMONARY Breath sounds clear to auscultation. II - ANESTHESIA PLAN ASA Score: 3 Anesthetic Plan: general Airway type: LMA The patient is not a current smoker. NPO Status: adequate Beta Javi Monitoring Plan Monitoring plan: standard ASA. Post Procedure Analgesic Plan Postoperative analgesic plan: multimodal analgesia. Informed Consent Anesthetic risks, benefits, alternatives, personnel and consent discussed: yes. Patient / Responsible Republican agrees to proceed: yes Patient / Surrogate agrees to blood products: blood products not planned DNR status not reviewed with patient and/or family prior to surgery. Significant changes in the patient condition since the History and Physical, not otherwise documented in primary service progress note: no. Potential Anesthesia issues that may suggest increased risk of complications or contraindication to planned procedure: none. Vitals Value Taken Time BP 171/78 12/06/23811 Pulse Resp 16 12/06/23811 Temp 36.3 ?C (97.3 ?F) 12/06/23 08 SpO2 98 % 12/06/23811 Facility-Administered Medications as of 12/06/2023 Medication Dose Route Frequency lidocaine (PF) 10 mg/mL (1 %) 1-2 mg injection (XYLOCAINE) 0.1-0.2 mL INTRADERMAL PRN lactated ringers iv infusion 5-30 mL/hr INTRAVENOUS CONTINUOUS NaCl 0.9% iv flush bag 20 mL INTRAVENOUS PRN ceFAZolin iv piggyback 2 g in D5W (iso-osmotic) 100 mL (ANCEF) 2 g INTRAVENOUS Pre-Op Once [COMPLETED] acetaminophen 1,000 mg tab(s) (TYLENOL) 1,000 mg ORAL ONCE lactated ringers iv infusion 30 mL/hr INTRAVENOUS CONTINUOUS Outpatient Medications as of 12/06/2023 Medication Sig D-MANNOSE ORAL Take 1 tablet by mouth once daily. letrozole (FEMARA) 2.5 mg tablet Take 1 tablet by mouth once daily. FLUoxetine (PROZAC) 40 mg capsule Take 1 capsule by mouth once daily. multivitamin tablet Take 1 tablet by mouth once daily. levothyroxine (SYNTHROID) 112 mcg tablet Take 112 mcg by mouth once daily. liothyronine (CYTOMEL) 5 mcg tablet Take 5 mcg by mouth once daily. lisinopril (ZESTRIL, PRINIVIL) 20 mg tablet Take 20 mg by mouth once daily. esomeprazole (NEXIUM) 40 mg capsule Take 40 mg by mouth DAILY (6 AM). ACETAMINOPHEN (TYLENOL ORAL) Take by mouth. zolpidem (AMBIEN) 10 mg tab Take 10 mg by mouth daily at bedtime. HYDROcodone-acetaminophen (NORCO) 5-325 mg per tablet Take 1 tablet by mouth every 6 hours as needed for pain for up to 3 days. Ascorbic Acid (VITAMIN C) 1,000 mg tablet Take 1,000 mg by mouth once daily. promethazine (PHENERGAN) 25 mg tablet Take 1 tablet by mouth every 6 hours as needed. FOR NAUSEA ALPRAZolam (XANAX) 0.5 mg tablet Take 0.5 mg by mouth at bedtime as needed. clopidogrel (PLAVIX) 75 mg tablet Take 75 mg by mouth once daily. I have interviewed and examined the patient. I have reviewed the medical record and/or the pre-anesthesia evaluation, pertinent labs, and test results. This contains updated information obtained within 48 hours of Surgery/Procedure. SIGNATURE: Sam Adkins MD PATIENT NAME: Danette Bishop DATE: December 06, 2023 TIME: 9:56 AM CSN: [id number] [facility] BRIEF OP NOTon 12-06-2023 BRIEF OP NOT HNO ID: [id number] Author: FREDA MATOS DO Service: General Surgery Author Type: Physician Type: Brief Op Note Filed: 12/06/2023 12:17 Note Text: BRIEF OPERATIVE / PROCEDURE NOTE LOG ID: [id number] SURGERY/PROCEDURE DATE: 12/06/2023 INCISION/PROCEDURE START TIME: 11:06 AM INCISION CLOSE/PROCEDURE END TIME: SURGEON(S)/PROCEDURALIST(S) AND HOSPITAL SOCIAL WORKER(S): Surgeon(s) and Role: * Freda Matos DO - Primary * Sekou Gómez MD - Resident - Assisting Physician Submarine Element Coordinator: Callie Sullivan PA-C SURGERY/PROCEDURE(S): INCISION AND DRAINAGE OF SEROMA: 72140 (CPT?) REVISION SCAR BREAST > 4.0CM: 14961 (CPT?) Excision of chronic seroma capsule ANESTHESIA: General FINDINGS: seroma capsule ESTIMATED BLOOD LOSS: 20 mls SPECIMENS: ID Type Source Tests Collected by Time Destination A : Left mastectomy seroma capsule Tissue Breast Capsule Left SURGICAL PATHOLOGY Freda Matos DO 12/06/2023 11:20 AM B : lateral margin Tissue Breast, Margin, Left, Excision SURGICAL PATHOLOGY Freda Matos DO 12/06/2023 12:08 PM COMPLICATIONS: None CLOSURE TECHNIQUE: Primary PRE-OP/PRE-PROCEDURE DIAGNOSIS: LEFT breast cancer, chronic-recurrent seroma POST-OP/POST-PROCEDURE DIAGNOSIS: Same as Preop SIGNATURE: Freda Matos DO PATIENT NAME: Danette Bishop DATE: December 06, 2023 TIME: 12:15 PM [facility] NURSING PROGon 12-06-2023 NURSING PROG HNO ID: [id number] Author: KELLY ELLIS RN Service: Nursing Author Type: Registered Nurse Type: Nursing Progress Note Filed: 12/06/2023 15:28 Note Text: PATIENT EDUCATION TOPIC: PROCEDURE / SURGERY: Post-op Teaching: Med Administration, Symptom Management, and Wound Care PATIENT NAME: Danette Bishop PATIENT LOCATION: [facility] OR POOL/[facility] OR POOL READINESS TO LEARN COGNITIVE ABILITY: Alert and oriented MOTIVATION TO LEARN: Interested FAMILY SUPPORT: High - Very involved in pt care INSTRUCTION PROVIDED TO: Patient and Family member PATIENT LEARNS BEST BY: Individual Instruction Written Instruction - Hand-outs Verbal Instruction FACTORS AFFECTING LEARNING: None PHYSICAL LIMITATIONS AFFECTING LEARNING: None LEARNING RESPONSE DIAGNOSIS: ADULT: Well Adult PATIENT/FAMILY RESPONSE: Verbalizes understanding of: POST-OPERATIVE INSTRUCTIONS-Correct actions to take to reduce postoperative complications METHOD OF INSTRUCTION: Individual instruction Written instruction/Handouts Verbal instruction FOLLOW-UP PLAN: Patient instructed to call with any further issues Follow-up with Primary Care INSTRUCTIONAL AIDS USED: NA SUPPLEMENTAL MATERIAL PROVIDED TO PATIENT: None REFERRAL (RECOMMENDATION): None Electronically Signed By: Kelly Ellis [facility] NURSING PROG HNO ID: [id number] Author: DANIELLE PURI, RN Service: Nursing Author Type: Registered Nurse Type: Nursing Progress Note Filed: 12/06/2023 08:18 Note Text: PATIENT EDUCATION TOPIC: PROCEDURE / SURGERY: Pre-op Teaching: Surgery PATIENT NAME: Danette Bishop PATIENT LOCATION: [facility]/ [facility] READINESS TO LEARN COGNITIVE ABILITY: Alert and oriented MOTIVATION TO LEARN: Eager FAMILY SUPPORT: Unable to assess - Family not present INSTRUCTION PROVIDED TO: Patient PATIENT LEARNS BEST BY: Individual Instruction Written Instruction - Hand-outs Verbal Instruction FACTORS AFFECTING LEARNING: None PHYSICAL LIMITATIONS AFFECTING LEARNING: None LEARNING RESPONSE DIAGNOSIS: ADULT: See HANDP PATIENT/FAMILY RESPONSE: Information received as demonstrated by interest and questions METHOD OF INSTRUCTION: Individual instruction Written instruction/Handouts Verbal instruction FOLLOW-UP PLAN: Patient instructed to call with any further issues INSTRUCTIONAL AIDS USED: NA SUPPLEMENTAL MATERIAL PROVIDED TO PATIENT: None REFERRAL (RECOMMENDATION): None Electronically Signed By: Danielle Puri [facility] OPERATIVE NOon 12-06-2023 OPERATIVE NO HNO ID: [id number] Author: FREDA MATOS DO Service: General Surgery Author Type: Physician Type: Operative Report Filed: 12/09/2023 07:20 Note Text: [facility] - Operative Report DANETTE BISHOP : 1945 AGE: 78. SEX: F PATIENT TYPE: A HOSP SVC: GEN SURG LOCATION: [facility] [place] ATTENDING PHYSICIAN: FREDA MATOS CSN NUMBER: [id number] DATE OF SURGERY/PROCEDURE: 12/06/2023 INCISION/PROCEDURE START TIME: 11:06 AM INCISION CLOSE/PROCEDURE END TIME: 1:00 PM PREOPERATIVE DIAGNOSIS: Left breast cancer, chronic non-resolving mastectomy seroma. POSTOPERATIVE DIAGNOSIS: Left breast cancer, chronic non-resolving mastectomy seroma. SURGEON: Freda Matos D.O HOSPITAL SOCIAL WORKER: 1. Cynthia Fu M.D., resident. 2. ZARINA Chaney. SURGERY/PROCEDURE: 1. Removal of seroma. 2. Capsulectomy of chronic seroma mastectomy site. 3. Scar revision with excision of redundant tissue. ANESTHESIA: General. INDICATIONS: The patient is a 78-year-old female with metastatic breast cancer, status post a mastectomy for growth of the cancer in her left breast, who, due to her prior radiation, developed a chronic non-healing seroma, therefore drainage of the seroma, excision of the seroma capsule and revision of the surgical scar and tissue was indicated. The risks and benefits of surgery were discussed with her and she agreed to proceed. DESCRIPTION OF PROCEDURE: Preoperatively, the patient was marked. In the holding area with the surgical team present, a time-out was performed. She was identified by name and date, site and surgery were confirmed. She was brought to the operating room and placed in supine position on the operating room table. General anesthesia was induced. Her left breast, chest, axilla, and upper extremity were prepped and draped in the usual sterile fashion. Her prior horizontal mastectomy incision was entered and a 325 mL of old seroma was evacuated. The patient had a thick capsule rind, which was excised completely from the anterior flap of the mastectomy as well as posterior on the muscle and sent to pathology. Closure of the skin and scar to remove the redundant tissue was performed circumferentially and then laterally the excess adipose tissue to allow the scar to lay flat. This excess skin and tissue was excised. A 15 round Doug-Rivera drain was brought through a separate stab incision below the inframammary crease. The wound was copiously irrigated, hemostasis was achieved. A local infiltrative wound and pecs block was given which included 20 mL of Exparel mixed with 20 mL of 0.25% Marcaine. The dermis was reapproximated with interrupted 2-0 Vicryl and the skin was closed with a running 4- 0 Monocryl. Exofin glue was placed on the incision. A Biopatch was placed around the drain, held in place with a Tegaderm. The patient tolerated the procedure well and was extubated. She was wrapped with fluffs and an ADRIÁN wrap and sent to PACU in stable condition. ESTIMATED BLOOD LOSS: 20 mL. FLUIDS: See Anesthesia. SPECIMENS: 1. Left mastectomy capsule and tissue. 2. Left lateral adipose margin. COMPLICATIONS: None. COUNTS: Correct at the end of the case. Please note, I scrubbed and performed all portions of the surgery with the help of my hospital medical assistant, who is Dr. Fu, who assisted with dissection and closure and Callie Sullivan, who assisted with retraction and closure. Freda Matos D.O SV:[id number] /[id number] [facility] SURGICAL PATHOLOGYon 024 CASE REPORT Normal [facility] Comment on above: Order Comment: Speci men Type: TISSUE SPECIMENOrdering Facility: [facility] Address: [address] [place] [address] Result Comment: Surg ical Pathology Report Case: [id number] Authorizing Provider: Freda Matos DO Collected: 12/06/2023 11:20 AM Ordering Location: [facility] Received: 12/06/2023 01:30 PM Operating Room Pathologist: Niharika Hameed MD Specimens: A) - Breast Capsule Left, Left mastectomy seroma capsule B) - Breast, Margin, Left, Excision, lateral margin Performed By: #### S ####[facility] LABIA [id number] [place] [address] [place] CLINICAL HISTORY Normal [facility] Comment on above: Order Comment: Speci men Type: TISSUE SPECIMENOrdering Facility: [facility] Address: [address] [place] [address] Result Comment: Pre- op diagnosis: Seroma of breast [N64.89] Excessive and redundant skin and subcutaneous tissue [L98.7] Performed By: #### S ####[facility] LABCLIA [id number] [place] [address] [place] DIAGNOSIS COMMENT The patient's histor y of left breast invasive ductal carcinoma ([place] grade 3) status post neoadjuvant therapy, mastectomy, and radiation is noted. [facility] Comment on above: Order Comment: Speci men Type: TISSUE SPECIMENOrdering Facility: [facility] Address: [address] [place] [address] Performed By: #### S ####[facility] LABCLIA [id number] [place] [address] [place] FINAL DIAGNOSIS [facility] Comment on above: Order Comment: Speci men Type: TISSUE SPECIMENOrdering Facility: [facility] Address: [address] [place] [address] Result Comment: A: B reast, left, mastectomy seroma capsule, excision: - Densely sclerotic fibrous tissue associated with microcalcifications, consistent with seroma capsule. - Prior procedure site changes. - Skin with no significant histopathologic abnormalities. B: Breast, left, lateral margin, excision: - Skin and subcutaneous tissue with no significant histopathologic abnormalities. Performed By: #### S ####[facility] LABCLIA [id number] [place] [address] [place] FINAL PERFORMING LAB Normal [facility] Comment on above: Order Comment: Speci men Type: TISSUE SPECIMENOrdering Facility: [facility] Address: [address] [place] [address] Result Comment: Diag nostic interpretation performed at [facility], [address] [place] [address] CLIA# [id number] Speech Pathology Teacher: Corby Schaefer M.D. Performed By: #### S ####[facility] LABCLIA [id number] [place] GROSS DESCRIPTION Normal [facility] Comment on above: Order Comment: Speci men Type: TISSUE SPECIMENOrdering Facility: [facility] Address: [address] [place] [address] Result Comment: A. B reast Capsule Left Received in formalin designated "left mastectomy seroma capsule" are multiple fragments of skin, capsule and fibrofatty tissue that weigh 91 g and aggregate to 10.5 x 10 x 3.2 cm. The outer surface of the capsule is covered in hutchinson-yellow rubbery and lobulated adipose tissue. The inner lining pink-hutchinson and smooth with focal dusky areas. The skin surface is pink-hutchinson and wrinkled. Sectioning through the fibrofatty tissue reveals hutchinson-yellow rubbery lobulated and homogeneous cut surfaces. No masses, nodules, or lesions are grossly identified. Vat Washer sections are submitted in 8 cassettes. WE December 06, 2023 2:36 PM Gross examination performed at [facility], [address] [place] [address] B. Breast, Margin, Left, Excision Received in formalin designated "lateral margin" is a wedge of skin and fibrofatty tissue that weighs 59 g and measures 7.5 x 5 x 2.1 cm. The skin surface is pink-hutchinson and wrinkled. The fibrofatty tissue is hutchinson-yellow rubbery and lobulated. Sectioning through the reveals hutchinson-yellow rubbery lobulated and fibrous cut surfaces. No masses, nodules, or lesions are grossly identified. Vat Washer sections are submitted in 2 cassettes. WE December 06, 2023 2:30 PM Gross examination performed at [facility], [address] [place] [address] Performed By: #### S ####[facility] LABCLIA [id number] [place] [address] [place] CBC W Auto Differential pane l (Bld)on 11-22-2023 Basophils (Bld) [#/Vol] 0.08 10*3/uL [facility] Basophils/100 WBC (Bld) 1.1 % [facility] Differential cell count method Nom (Bld) Auto [facility] Eosinophils (Bld) [#/Vol] 0.09 10*3/uL [facility] Eosinophils/100 WBC (Bld) 1.3 % [facility] Erythrocyte distribution width (RBC) [Ratio] 15.7 % High 11.5 - 15.0 % [facility] Hematocrit (Bld) [Volume fraction] 35.4 % Low 36.0 - 46.0 % [facility] Hemoglobin (Bld) [Mass/Vol] 11.8 g/dL 11.5 - 15.5 g/dL [facility] Immature granulocytes (Bld) [#/Vol] NINF [facility] Immature granulocytes/100 WBC (Bld) 0.3 % [facility] Interpretation and review of laboratory results Abnormal [facility] Lymphocytes (Bld) [#/Vol] 2.29 10*3/uL [facility] Lymphocytes/100 WBC (Bld) 32.6 % [facility] MCH (RBC) [Entitic mass] 29.6 pg 26.0 - 34.0 pg [facility] MCHC (RBC) [Mass/Vol] 33.3 g/dL 30.5 - 36.0 g/dL [facility] MCV (RBC) [Entitic vol] 88.7 fL 80.0 - 100.0 fL [facility] Monocytes (Bld) [#/Vol] 0.43 10*3/u[facility] Monocytes/100 WBC (Bld) 6.1 % [facility] Neutrophils (Bld) [#/Vol] 4.12 10*3/uL [facility] Neutrophils/100 WBC (Bld) 58.6 % [facility] Nucleated RBC (Bld) [#/Vol] NINF [facility] Nucleated RBC/100 WBC (Bld) [Ratio] 0.0 % /100 WBC [facility] Platelet mean volume (Bld) [Entitic vol] 9.3 fL 9.0 - 12.7 fL [facility] Platelets (Bld) [#/Vol] 373 10*3/uL [facility] RBC (Bld) [#/Vol] 3.99 10*6/uL 3.90 - 5.20 m/uL [facility] WBC (Bld) [#/Vol] 7.03 10*3/uL [facility] Comprehensive metabolic 2000 panelOrdered By: Maryellen Workman on 11-22-2023 Albumin [Mass/Vol] 4.2 g/dL 3.9 - 4.9 g/dL [facility] ALP [Catalytic activity/Vol] 85 U/L 34 - 123 U/L [facility] ALT [Catalytic activity/Vol] 13 U/L 7 - 38 U/L [facility] Anion gap [Moles/Vol] 9 mmol/L 8 - 15 mmol/L [facility] AST [Catalytic activity/Vol] 16 U/L 13 - 35 U/L [facility] Bilirubin [Mass/Vol] 0.8 mg/dL 0.2 - 1 .3 mg/dL [facility] Calcium [Mass/Vol] 9.2 mg/dL 8.5 - 10. 2 mg/dL [facility] Chloride [Moles/Vol] 101 mmol/L 98 - 10 7 mmol/L [facility] CO2 [Moles/Vol] 25 mmol/L 22 - 30 mmol/L [facility] Creatinine [Mass/Vol] 0.66 mg/dL 0.58 - 0.96 mg/dL [facility] GFR/1.73 sq M.predicted among non-blacks MDRD (S/P/Bld) [Vol rate/Area] 90 mL/min/{1.73_m2} - PINF [facility] Comment on above: Estimated Glomerular Filtration Rate (eGFR) is calculated using the 2020 CKD-EPI creatinine equation. This equation utilizes serum creatinine, sex, and age as parameters. The creatinine assay has traceable calibration to isotope dilution-mass spectrometry. Refer to KDIGO guidelines for clinical interpretation. In patients with unstable renal function, e.g. those with acute kidney injury, the eGFR may not accurately reflect actual GFR. Glucose [Mass/Vol] 93 mg/dL 74 - 99 mg/dL [facility] Comment on above: The [place] Diabete s Association (ADA) provides guidance for cutoff values for fasting glucose and random glucose. The ADA defines fasting as no caloric intake for at least 8 hours. Fasting plasma glucose results between 100 to 125 mg/dL indicate increased risk for diabetes (prediabetes). Fasting plasma glucose results greater than or equal to 126 mg/dL meet the criteria for diagnosis of diabetes. In the absence of unequivocal hyperglycemia, results should be confirmed by repeat testing. In a patient with classic symptoms of hyperglycemia or hyperglycemic crisis, random plasma glucose results greater than or equal to 200 mg/dL meet the criteria for diagnosis of diabetes. Reference: Standards of Medical Care in Diabetes 2016, [place] Diabetes Association. Diabetes Care. 2016.39(Suppl 1). Interpretation and review of laboratory results Abnormal [facility] Potassium [Moles/Vol] 3.9 mmol/L 3.7 - 5.1 mmol/L [facility] Protein [Mass/Vol] 7.0 g/dL 6.3 - 8.0 g/dL [facility] Sodium [Moles/Vol] 135 mmol/L Low 136 - 144 mmol/L [facility] Urea nitrogen [Mass/Vol] 11 mg/dL 7 - 21 mg/dL [facility] Jenn 11-18-2023 BEAN Telephone ([employer]) DANETTE BISHOP ([id number]) 1945 F Date Time Provider Department 11/18/23 FREDA MATOS During your visit today, we recorded the following information about you: Sandra Zabala 11/18/2023 9:13 AM Signed [facility] Fax [phone] Would like the pre op paperwork faxed over so they have it for patients appointment with them. Allergies As of Date: 11/18/2023 Noted Allergy Reaction ADHESIVE TAPE-SILICONES 10/27/2020 2 - Rash SHELLFISH DERIVED 08/08/2020 7 - Swelling Date Reviewed: 11/04/2023 Reviewed by: Freda Matson, RN - Fully Assessed Reason for Visit: Patient Question [6737] Cmt: Pre op paperwork Prescriptions as of 11/18/2023 - D-MANNOSE ORAL Take 2 tablets by mouth once daily. - HYDROcodone-acetaminophen (NORCO) 5-325 mg per tablet Take 1 tablet by mouth every 6 hours as needed for pain for up to 3 days. - letrozole (FEMARA) 2.5 mg tablet Take 1 tablet by mouth once daily. - Ascorbic Acid (VITAMIN C) 1,000 mg tablet Take 1,000 mg by mouth once daily. - FLUoxetine (PROZAC) 40 mg capsule Take 1 capsule by mouth once daily. - multivitamin tablet Take 1 tablet by mouth once daily. - levothyroxine (SYNTHROID) 112 mcg tablet Take 112 mcg by mouth once daily. - promethazine (PHENERGAN) 25 mg tablet Take 1 tablet by mouth every 6 hours as needed. FOR NAUSEA - liothyronine (CYTOMEL) 5 mcg tablet Take 5 mcg by mouth once daily. - lisinopril (ZESTRIL, PRINIVIL) 20 mg tablet Take 20 mg by mouth once daily. - esomeprazole (NEXIUM) 40 mg capsule Take 40 mg by mouth DAILY (6 AM). - ACETAMINOPHEN (TYLENOL ORAL) Take by mouth. - zolpidem (AMBIEN) 10 mg tab Take 10 mg by mouth daily at bedtime. - ALPRAZolam (XANAX) 0.5 mg tablet Take 0.5 mg by mouth at bedtime as needed. - clopidogrel (PLAVIX) 75 mg tablet Take 75 mg by mouth once daily. Facility-Administered Medications as of 11/18/2023 - perflutren lipid microspheres 1.3 mL in NaCl (PF) 0.9% 10 mL injection (DEFINITY) - sodium chloride 0.9 % (flush) 10 mL (BD POSIFLUSH) - perflutren lipid microspheres 1.3 mL in NaCl (PF) 0.9% 10 mL injection (DEFINITY) - sodium chloride 0.9 % (flush) 10 mL (BD POSIFLUSH) Problem List As Of Date 11/18/2023 Noted Resolved 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, right (HCC*08/29/2020 HER2-positive carcinoma of left breast (HCC) [C*08/29/2020 Local recurrence of cancer of left breast (HCC)*04/26/2022 Stage IV breast cancer in female (HCC) [C50.919]04/26/2022 Sleep apnea [G47.30] 06/20/2023 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] 12/31/2022 Hypothyroidism, unspecified [E03.9] 02/15/2022 TIA (transient ischemic attack) [G45.9] 06/20/2023 Grade I diastolic dysfunction [I51.89] 06/20/2023 Anxiety and depression [F41.9, F32.A] 06/20/2023 BCC (basal cell carcinoma of skin) [C44.91] 06/20/2023 Chronic back pain [M54.9, G89.29] 06/20/2023 Carcinoma of left breast, stage 4 (HCC) [C50.91*08/15/2023 Seroma of breast [N64.89] 08/15/2023 Encounter Status:Closed by SANDRA ZABALA on 11/18/23 [facility] (LYYNSF[facility] DANETTE BISHOP ([id number]) 1945 F Date Time Provider Department 11/09/23 FREDA MATOS During your visit today, we recorded the following information about you: Kelly Arellano 11/09/2023 3:32 PM Signed Spoke to patient, confirmed her surgery date and appointments related to her procedure with Dr. Matos on 12/05 . Allergies As of Date: 11/09/2023 Noted Allergy Reaction ADHESIVE TAPE-SILICONES 10/27/2020 2 - Rash SHELLFISH DERIVED 08/08/2020 7 - Swelling Date Reviewed: 11/04/2023 Reviewed by: Freda Matson, CRISTINA - Fully Assessed Reason for Visit: Appointment [[id number]] Prescriptions as of 11/09/2023 - D-MANNOSE ORAL Take 2 tablets by mouth once daily. - HYDROcodone-acetaminophen (NORCO) 5-325 mg per tablet Take 1 tablet by mouth every 6 hours as needed for pain for up to 3 days. - letrozole (FEMARA) 2.5 mg tablet Take 1 tablet by mouth once daily. - Ascorbic Acid (VITAMIN C) 1,000 mg tablet Take 1,000 mg by mouth once daily. - FLUoxetine (PROZAC) 40 mg capsule Take 1 capsule by mouth once daily. - multivitamin tablet Take 1 tablet by mouth once daily. - levothyroxine (SYNTHROID) 112 mcg tablet Take 112 mcg by mouth once daily. - promethazine (PHENERGAN) 25 mg tablet Take 1 tablet by mouth every 6 hours as needed. FOR NAUSEA - liothyronine (CYTOMEL) 5 mcg tablet Take 5 mcg by mouth once daily. - lisinopril (ZESTRIL, PRINIVIL) 20 mg tablet Take 20 mg by mouth once daily. - esomeprazole (NEXIUM) 40 mg capsule Take 40 mg by mouth DAILY (6 AM). - ACETAMINOPHEN (TYLENOL ORAL) Take by mouth. - zolpidem (AMBIEN) 10 mg tab Take 10 mg by mouth daily at bedtime. - ALPRAZolam (XANAX) 0.5 mg tablet Take 0.5 mg by mouth at bedtime as needed. - clopidogrel (PLAVIX) 75 mg tablet Take 75 mg by mouth once daily. Facility-Administered Medications as of 11/09/2023 - perflutren lipid microspheres 1.3 mL in NaCl (PF) 0.9% 10 mL injection (DEFINITY) - sodium chloride 0.9 % (flush) 10 mL (BD POSIFLUSH) - perflutren lipid microspheres 1.3 mL in NaCl (PF) 0.9% 10 mL injection (DEFINITY) - sodium chloride 0.9 % (flush) 10 mL (BD POSIFLUSH) Problem List As Of Date 11/09/2023 Noted Resolved 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, right (HCC*08/29/2020 HER2-positive carcinoma of left breast (HCC) [C*08/29/2020 Local recurrence of cancer of left breast (HCC)*04/26/2022 Stage IV breast cancer in female (HCC) [C50.919]04/26/2022 Sleep apnea [G47.30] 06/20/2023 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] 12/31/2022 Hypothyroidism, unspecified [E03.9] 02/15/2022 TIA (transient ischemic attack) [G45.9] 06/20/2023 Grade I diastolic dysfunction [I51.89] 06/20/2023 Anxiety and depression [F41.9, F32.A] 06/20/2023 BCC (basal cell carcinoma of skin) [C44.91] 06/20/2023 Chronic back pain [M54.9, G89.29] 06/20/2023 Carcinoma of left breast, stage 4 (HCC) [C50.91*08/15/2023 Seroma of breast [N64.89] 08/15/2023 Encounter Status:Closed by KELLY ARELLANO on 11/09/23 Normal [facility] CBC W Auto Differential pane l (Bld)on 11-04-2023 Basophils (Bld) [#/Vol] 0.10 10*3/uL [facility] Basophils/100 WBC (Bld) 1.3 % [facility] Differential cell count method Nom (Bld) Auto [facility] Eosinophils (Bld) [#/Vol] 0.09 10*3/uL [facility] Eosinophils/100 WBC (Bld) 1.2 % [facility] Erythrocyte distribution width (RBC) [Ratio] 15.3 % High 11.5 - 15.0 % [facility] Hematocrit (Bld) [Volume fraction] 35.0 % Low 36.0 - 46.0 % [facility] Hemoglobin (Bld) [Mass/Vol] 11.7 g/dL 11.5 - 15.5 g/dL [facility] Immature granulocytes (Bld) [#/Vol] [facility] Immature granulocytes/100 WBC (Bld) 0.1 % [facility] Interpretation and review of laboratory results Abnormal [facility] Lymphocytes (Bld) [#/Vol] 2.56 10*3/uL [facility] Lymphocytes/100 WBC (Bld) 33.5 % [facility] MCH (RBC) [Entitic mass] 29.5 pg 26.0 - 34.0 pg [facility] MCHC (RBC) [Mass/Vol] 33.4 g/dL 30.5 - 36.0 g/dL [facility] MCV (RBC) [Entitic vol] 88.4 fL 80.0 - 100.0 fL [facility] Monocytes (Bld) [#/Vol] 0.41 10*3/uL [facility] Monocytes/100 WBC (Bld) 5.4 % [facility] Neutrophils (Bld) [#/Vol] 4.48 10*3/uL [facility] Neutrophils/100 WBC (Bld) 58.5 % [facility] Nucleated RBC (Bld) [#/Vol] [facility] Nucleated RBC/100 WBC (Bld) [Ratio] 0.0 % /100 WBC [facility] Platelet mean volume (Bld) [Entitic vol] 9.9 fL 9.0 - 12.7 fL [facility] Platelets (Bld) [#/Vol] 335 10*3/uL [facility] RBC (Bld) [#/Vol] 3.96 10*6/uL 3.90 - 5.20 m/uL [facility] WBC (Bld) [#/Vol] 7.65 10*3/uL [facility] Comprehensive metabolic 2000 panelOrdered By: Frances Cotton on 11-04-2023 Albumin [Mass/Vol] 4.2 g/dL 3.9 - 4.9 g/dL [facility] ALP [Catalytic activity/Vol] 80 U/L 34 - 123 U/L [facility] ALT [Catalytic activity/Vol] 11 U/L 7 - 38 U/L [facility] Anion gap [Moles/Vol] 8 mmol/L Low 9 - 18 mmol/L [facility] AST [Catalytic activity/Vol] 15 U/L 13 - 35 U/L [facility] Bilirubin [Mass/Vol] 0.5 mg/dL 0.2 - 1 .3 mg/dL [facility] Calcium [Mass/Vol] 9.3 mg/dL 8.5 - 10. 2 mg/dL [facility] Chloride [Moles/Vol] 102 mmol/L 97 - 10 5 mmol/L [facility] CO2 [Moles/Vol] 23 mmol/L 22 - 30 mmol/L [facility] Creatinine [Mass/Vol] 0.68 mg/dL 0.58 - 0.96 mg/dL [facility] GFR/1.73 sq M.predicted among non-blacks MDRD (S/P/Bld) [Vol rate/Area] 89 mL/min/{1.73_m2} - PINF [facility] Comment on above: Estimated Glomerular Filtration Rate (eGFR) is calculated using the 2020 CKD-EPI creatinine equation. This equation utilizes serum creatinine, sex, and age as parameters. The creatinine assay has traceable calibration to isotope dilution-mass spectrometry. Refer to KDIGO guidelines for clinical interpretation. In patients with unstable renal function, e.g. those with acute kidney injury, the eGFR may not accurately reflect actual GFR. Glucose [Mass/Vol] 123 mg/dL High 74 - 99 mg/dL [facility] Comment on above: The [place] Diabete s Association (ADA) provides guidance for cutoff values for fasting glucose and random glucose. The ADA defines fasting as no caloric intake for at least 8 hours. Fasting plasma glucose results between 100 to 125 mg/dL indicate increased risk for diabetes (prediabetes). Fasting plasma glucose results greater than or equal to 126 mg/dL meet the criteria for diagnosis of diabetes. In the absence of unequivocal hyperglycemia, results should be confirmed by repeat testing. In a patient with classic symptoms of hyperglycemia or hyperglycemic crisis, random plasma glucose results greater than or equal to 200 mg/dL meet the criteria for diagnosis of diabetes. Reference: Standards of Medical Care in Diabetes 2016, [place] Diabetes Association. Diabetes Care. 2016.39(Suppl 1). Interpretation and review of laboratory results Abnormal [facility] Potassium [Moles/Vol] 4.0 mmol/L 3.7 - 5.1 mmol/L [facility] Protein [Mass/Vol] 6.8 g/dL 6.3 - 8.0 g/dL [facility] Sodium [Moles/Vol] 133 mmol/L Low 136 - 144 mmol/L [facility] Urea nitrogen [Mass/Vol] 16 mg/dL 7 - 21 mg/dL [facility] ECHOon 11-04-2023 CONCLUSIONS: - Technically difficult exam due to body habitus and left mastectomy/seroma. - Exam indication: Baseline and serial evaluation in a patient undergoing therapy with cardiotoxic agents - The left ventricle is normal in size. Left ventricular systolic function is normal. EF = 60 5% (2D biplane) Grade I left ventricular diastolic dysfunction. - The right ventricle is normal in size. Right ventricular systolic function is normal. - Exam was compared with the prior echocardiographic exam performed on 04/18/2023, no significant change. * * * Final * * * [facility] Echocardiography Report: Transthoracic [facility] Date of service: 11/04/2023 10:35:32 AM CLERK Ordering physician: CHRISTIANO CENTENO Indication: Baseline and serial evaluation in a patient undergoing therapy with cardiotoxic agents Technologist: Freda Hahn [facility] Interpreting physician: Jossie Telles MD PATIENT: Name: MRS. DANETTE BISHOP : 1945 Age: 78 years Gender: F Primary rhythm: sinus. Height: 156.20 cm BSA: 1.74 m Weight: 69.63 kg BMI: 28.5 kg/m Heart rate 76 bpm Technically difficult exam due to body habitus and left mastectomy/seroma. Color Doppler was utilized to interrogate the cardiac valves assessed and spectral Doppler was utilized to determine the flow velocities and pressure gradients reported in this exam. MEASUREMENTS: Value Indexed Normal Max aortic dimension 2.9 cm Ao < 3.8 Left atrial volume 46 ml (biplane A-L) 26 ml/m Karon <= 34 IVS, leaflet tips 1.1 cm (2D) LV stroke volume 42 ml (2D biplane) LV end diastolic volume 71 ml (2D biplane) 40.6 ml/m 29<=EDVi<62 LV end systolic volume 28 ml (2D biplane) 16.3 ml/m Ejection Fraction 60 % (2D biplane) EF > 54 FINDINGS: LEFT VENTRICLE The left ventricle is normal in size. Left ventricular systolic function is normal. Grade I left ventricular diastolic dysfunction. Mitral annular lateral E/e': 6.5. Mitral annular septal E/e': 7.3. Wall Motion: All scored segments are normal. RIGHT VENTRICLE The right ventricle is normal in size. Right ventricular systolic function is normal. RV systolic tissue Doppler velocity is 11.0 cm/s. Tricuspid annular displacement is 1.8 cm. Estimated right ventricular systolic pressure is not reported due to an insufficient tricuspid regurgitation signal. Estimated right atrial pressure is 3 mmHg (although IVC not seen). LEFT ATRIUM The left atrial cavity is normal in size. RIGHT ATRIUM The right atrial cavity is normal in size. Inferior Vena Cava: The inferior vena cava appears normal measuring 1.1 cm. MITRAL VALVE There is mild mitral annular calcification observed posterior. There is trace mitral valve regurgitation. The pressure half time is 53 msec. The peak mitral E/A ratio is 0.63. The average mitral E/e' ratio is 6.9. The mitral flow deceleration time is 184 msec. TRICUSPID VALVE The tricuspid valve leaflets are structurally normal. There is trace tricuspid valve regurgitation. AORTIC VALVE The aortic valve was not seen or not interrogated. There is no aortic valve regurgitation. The peak gradient is 8 mmHg (peak velocity = 142.0 cm/s). PULMONIC VALVE The pulmonic valve cusps are structurally normal. There is no pulmonic valve regurgitation. AORTA The visualized aorta is normal in size. Measurements - Mid ascending aorta 2.9 cm. PERICARDIUM There is no pericardial effusion. There is an epicardial fat pad. [facility] MR Brain WO and W contrast I Von 10-20-2023 IMPRESSION: No evidence of intracranial metastatic disease. Remote right frontal lobe infarct with associated encephalomalacia. 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 MQ: [id number] Contrast: 14 mL Dotarem IV COMPARISON: MRI brain 2022 RESULT: Acute Change: There is no evidence of restricted diffusion to suggest an acute infarct. Hemorrhage: Remote petechial hemorrhage and/or mineralization along the right frontal lobe encephalomalacic defect Mass Lesion/ Mass Effect: No evidence of an intracranial mass or extra-axial fluid collection. No abnormal parenchymal or leptomeningeal enhancement is noted following contrast administration. No mass effect. Chronic Change: Remote infarct with associated encephalomalacia is present in the right frontal lobe. Scattered small patchy T2 FLAIR hyperintensities in the bilateral cerebral hemispheric white matter compatible with sequelae of chronic small vessel disease. Parenchyma: No significant volume loss for age. The brain parenchyma is otherwise within normal limits of signal intensity and morphology. Ventricles: Normal caliber and morphology. Skull Base: Hypothalamic and pituitary region are grossly normal. Craniocervical junction is normal. No significant marrow replacement process. Vasculature: The major intracranial arteries and dural venous sinuses are patent. Other: The visualized paranasal sinuses and mastoid air cells are clear. The orbits and extracranial soft tissues are unremarkable. 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 MQ: [id number] Contrast: 14 mL Dotarem IV COMPARISON: MRI brain 2022 RESULT: Acute Change: There is no evidence of restricted diffusion to suggest an acute infarct. Hemorrhage: Remote petechial hemorrhage and/or mineralization along the right frontal lobe encephalomalacic defect Mass Lesion/ Mass Effect: No evidence of an intracranial mass or extra-axial fluid collection. No abnormal parenchymal or leptomeningeal enhancement is noted following contrast administration. No mass effect. Chronic Change: Remote infarct with associated encephalomalacia is present in the right frontal lobe. Scattered small patchy T2 FLAIR hyperintensities in the bilateral cerebral hemispheric white matter compatible with sequelae of chronic small vessel disease. Parenchyma: No significant volume loss for age. The brain parenchyma is otherwise within normal limits of signal intensity and morphology. Ventricles: Normal caliber and morphology. Skull Base: Hypothalamic and pituitary region are grossly normal. Craniocervical junction is normal. No significant marrow replacement process. Vasculature: The major intracranial arteries and dural venous sinuses are patent. Other: The visualized paranasal sinuses and mastoid air cells are clear. The orbits and extracranial soft tissues are unremarkable. IMPRESSION IMPRESSION: No evidence of intracranial metastatic disease. Remote right frontal lobe infarct with associated encephalomalacia. [facility] Lia[facility] Transcribe Date/Time: Oct 20 2023 11:13A Dictated by : RY ZAPATA MD This examination was interpreted and the report reviewed and electronically signed by: RY ZAPATA MD on Oct 20 2023 11:17AM EST [facility] Radiology Study observation (narrative) [facility] MR Brain WO and W contrast I VOrdered By: [facility]cf Provider on 10-20-2023 [facility] CNOVon 10-14-2023 CNOV Office Visit (GENSF) DANETTE BISHOP ([id number]) 1945 F Date Time Provider Department 10/14/23 9:30 AM FREDA MATOS During your visit today, we recorded the following information about you: Kelly Aguayo LPN 10/14/2023 9:18 AM Signed Seroma check Last mammogram on: 03/16/23 bilateral Results: see report Is the patient active on [employer] Yes Electronically Signed By: Kelly Aguayo LPN In Department: GENERAL SURGERY REVIEW OF PATIENT HISTORY: OB History T2 L1 SAB0 IAB0 Ectopic0 Multiple0 Live Births0 Comment: .Menarche: 12; Age at 1st : 25; Post menopausal FAMILY HISTORY Problem Relation Age of Onset Colon Cancer Mother mets to stomach Stroke Father at age 62 Breast Cancer Sister 85 Heart disease Paternal Grandmother CAD PAST MEDICAL HISTORY Diagnosis Date Breast cancer (HCC) 2012 left Breast cancer (HCC) 04/2023 local recurrence on left GI bleed 2008 Hypertension Liver nodule TIA (transient ischemic attack) 2012 PAST SURGICAL HISTORY Procedure Laterality Date COLONOSCOPY every 5 yrs due to f/h colon cqan all normal per pt EGD GERD EGD 09/01/2020 Repeat in 2 years INSJ TUNNELED CTR VAD W/SUBQ PORT AGE 5 YR/> 09/29/2020 PAST SURGICAL HISTORY OF thyroid removal PAST SURGICAL HISTORY OF left breast 2 episodes of DCIS PAST SURGICAL HISTORY OF back surgeries times 2 Social History Tobacco Use Smoking status: Former Years: 2 Types: Cigarettes Quit date: 09/16/1965 Years since quittin.1 Smokeless tobacco: Never Tobacco comments: Pt smoked 2-3 cigarettes daily x 2 years. Vaping Use Vaping Use: Never used Substance Use Topics Alcohol use: Yes Comment: moderate Drug use: No Freda Matos DO 10/14/2023 12:31 PM Signed HPI: Danette Bishop, 78 year old year old female, s/p a LEFT simple mastectomy for local control in the setting of stage IV diease on 06/28/2023. 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 In 2020 diagnosed with metastatic breast cancer to her liver. Liver mass 3.2 cm. Imaging and biopsy show a local recurrence LEFT breast cancer 1.7 cm mass with associated calcifications (span 4 cm) @ 1:00 position. S/p chemotherapy with a good clinical response in the liver. PET scan with continued update in the breast. [id number] - stage IV ER+MN+HER2+ past medical history significant for hypertension, stroke (x2; not on ASA because of h/o bleeding ulcer), on plavix anticoagulation HISTORY She had LEFT chest wall area seroma drained on 08/10, 08/21, 09/05/2023 and most recently, on 09/19/2023, in which 100 cc of fluid was aspirated. She has a chronic recurrent post-op seroma in a prior irradiated breast She admits she does not wear the ADRIÁN wrap for long due to irritation EXAMINATION: LEFT mastectomy incisional line is healed .There is a seroma present in the mastectomy site - probable 100cc. This is soft, no sings of hematoma or infection No signs of irration or lymphedema IMPRESSION: LEFT breast chronic/recurrent post-op seroma This does not bother her and she states she got fitted for a prosthetic yesterday without any issues PLAN: Reviewed that this is a persistent seroma and repeat aspiration at this time likely will yield in a repeat seroma reformation Discussed that is is not necessary to keep aspirating the seroma. Repeat aspiration can result in infection or hematoma (on anticoagulation) Would like to see if this resolves on its own. Could place drain for a few weeks which may or may not resolve the seroma Could inject sclerosing agent to see if this could decrease seroma Could go to surgery to sclerose the cavity and place quilting sutures. I would favor observation - as this is not bothersome to her. Discussed if this become bothersome or changes - we could revisit any of these options. She still expresses desire for a right prophylactic mastectomy for symmetry. We reviewed her mastectomy was for local disease control and that she is on current active treatment for stage 4 disease. She states she is okay with observation. Her is in agreement with this plan She will call if the seroma becomes symptomatic and needs drainage. She has our names and numbers to stay in touch if there are any questions, concerns or problems. Continue with AI and Herceptin wit Dr Taryn Matos, DO Breast Surgeon Cc: Dr. Centeno Allergies As of Date: 10/14/2023 Noted Allergy Reaction ADHESIVE TAPE-SILICONES 10/27/2020 2 - Rash SHELLFISH DERIVED 08/08/2020 7 - Swelling Date Reviewed: 10/14/2023 Reviewed by: Kelly Aguayo LPN - Fully Assessed Reason for Visit: Established Pa (more content not included)... Normal [facility] Basophil percentageOrdered B y: Tami Chang on 10-10-2023 Cholesterol [Mass/Vol] 168 mg/dL <200 [facility] Comment on above: <200 mg/dL Desirable 200-240 mg/dL Borderline >240 mg/dL High Risk Triglyceride [Mass/Vol] 190 mg/dL <199 [facility] Comment on above: The drugs N-Acetylcy steine and Metamizole may falsely depress this assay.Serum Triglycerides Reference Interval Normal <150 mg/dL Borderline high 150 - 199 mg/dL High 200 - 499 mg/dL Very High > or = 500 mg/dL CBC W Auto Differential pane l (Bld)on 10-10-2023 Basophils (Bld) [#/Vol] 0.08 10*3/uL [facility] Basophils/100 WBC (Bld) 1.2 % [facility] Differential cell count method Nom (Bld) Auto [facility] Eosinophils (Bld) [#/Vol] 0.15 10*3/uL [facility] Eosinophils/100 WBC (Bld) 2.3 % [facility] Erythrocyte distribution width (RBC) [Ratio] 15.1 % High 11.5 - 15.0 % [facility] Hematocrit (Bld) [Volume fraction] 36.9 % 36.0 - 46.0 % [facility] Hemoglobin (Bld) [Mass/Vol] 12.2 g/dL 11.5 - 15.5 g/dL [facility] Immature granulocytes (Bld) [#/Vol] [facility] Immature granulocytes/100 WBC (Bld) 0.2 % [facility] Interpretation and review of laboratory results Abnormal [facility] Lymphocytes (Bld) [#/Vol] 2.03 10*3/uL [facility] Lymphocytes/100 WBC (Bld) 30.6 % [facility] MCH (RBC) [Entitic mass] 29.2 pg 26.0 - 34.0 pg [facility] MCHC (RBC) [Mass/Vol] 33.1 g/dL 30.5 - 36.0 g/dL [facility] MCV (RBC) [Entitic vol] 88.3 fL 80.0 - 100.0 fL [facility] Monocytes (Bld) [#/Vol] 0.43 10*3/uL NINF [facility] Monocytes/100 WBC (Bld) 6.5 % [facility] Neutrophils (Bld) [#/Vol] 3.93 10*3/uL [facility] Neutrophils/100 WBC (Bld) 59.2 % [facility] Nucleated RBC (Bld) [#/Vol] NINF [facility] Nucleated RBC/100 WBC (Bld) [Ratio] 0.0 % /100 WBC [facility] Platelet mean volume (Bld) [Entitic vol] 9.6 fL 9.0 - 12.7 fL [facility] Platelets (Bld) [#/Vol] 334 10*3/uL [facility] RBC (Bld) [#/Vol] 4.18 10*6/uL 3.90 - 5.20 m/uL [facility] WBC (Bld) [#/Vol] 6.63 10*3/uL [facility] Comprehensive metabolic 2000 panelOrdered By: Maryellen Workman on 10-10-2023 Albumin [Mass/Vol] 4.1 g/dL 3.9 - 4.9 g/dL [facility] ALP [Catalytic activity/Vol] 77 U/L 34 - 123 U/L [facility] ALT [Catalytic activity/Vol] 12 U/L 7 - 38 U/L [facility] Anion gap [Moles/Vol] 6 mmol/L Low 9 - 18 mmol/L [facility] AST [Catalytic activity/Vol] 14 U/L 13 - 35 U/L [facility] Bilirubin [Mass/Vol] 0.5 mg/dL 0.2 - 1 .3 mg/dL [facility] Calcium [Mass/Vol] 9.4 mg/dL 8.5 - 10. 2 mg/dL [facility] Chloride [Moles/Vol] 102 mmol/L 97 - 10 5 mmol/L [facility] CO2 [Moles/Vol] 28 mmol/L 22 - 30 mmol/L [facility] Creatinine [Mass/Vol] 0.65 mg/dL 0.58 - 0.96 mg/dL [facility] GFR/1.73 sq M.predicted among non-blacks MDRD (S/P/Bld) [Vol rate/Area] 90 mL/min/{1.73_m2} - PINF [facility] Comment on above: Estimated Glomerular Filtration Rate (eGFR) is calculated using the 2020 CKD-EPI creatinine equation. This equation utilizes serum creatinine, sex, and age as parameters. The creatinine assay has traceable calibration to isotope dilution-mass spectrometry. Refer to KDIGO guidelines for clinical interpretation. In patients with unstable renal function, e.g. those with acute kidney injury, the eGFR may not accurately reflect actual GFR. Glucose [Mass/Vol] 92 mg/dL 74 - 99 mg/dL [facility] Comment on above: The [place] Diabete s Association (ADA) provides guidance for cutoff values for fasting glucose and random glucose. The ADA defines fasting as no caloric intake for at least 8 hours. Fasting plasma glucose results between 100 to 125 mg/dL indicate increased risk for diabetes (prediabetes). Fasting plasma glucose results greater than or equal to 126 mg/dL meet the criteria for diagnosis of diabetes. In the absence of unequivocal hyperglycemia, results should be confirmed by repeat testing. In a patient with classic symptoms of hyperglycemia or hyperglycemic crisis, random plasma glucose results greater than or equal to 200 mg/dL meet the criteria for diagnosis of diabetes. Reference: Standards of Medical Care in Diabetes 2016, [place] Diabetes Association. Diabetes Care. 2016.39(Suppl 1). Interpretation and review of laboratory results Abnormal [facility] Potassium [Moles/Vol] 4.1 mmol/L 3.7 - 5.1 mmol/L [facility] Protein [Mass/Vol] 6.7 g/dL 6.3 - 8.0 g/dL [facility] Sodium [Moles/Vol] 136 mmol/L 136 - 144 mmol/L [facility] Urea nitrogen [Mass/Vol] 15 mg/dL 7 - 21 mg/dL [facility] - Chemistry and C hemistry - challengeOrdered By: Tami Chang on 10-10-2023 Cholesterol in HDL [Mass/Vol] 63 mg/dL >40 [facility] Comment on above: The drugs N-Acetylcy steine and Metamizole may falsely depress this assay. Reference Range HDL <40 mg/dL Low HDL Cholesterol HDL >or= 60 mg/dL High HDL Cholesterol Cholesterol in LDL [Mass/Vol] 67 mg/dL 0-130 [facility] No Panel InformationOrdered By: Tami Chang on 10-10-2023 VLDL Cholesterol 38 mg/dL 5-40 [facility] Serum or plasma thyroid stim ulating hormone (TSH) measurement (units/volume)Ordered By: Tami Chang on 10-10-2023 TSH Qn 0.56 uIU/mL 0.358-3.74 [facility] Serum or plasma thyroxine (T 4) measurement (mass/volume)Ordered By: Tami Chang on 10-10-2023 T4 [Mass/Vol] 7.8 ug/dL 4.8-13.9 [facility] Thin prep Papanicolaou smear with manual screeningOrdered By: Tami Chang on 10-10-2023 Protein (U) [Mass/Vol] 13.0 mg/dL 0.0-11.8 [facility] Urine creatinine measurement (mass/volume)Ordered By: Tami Chang on 10-10-2023 Creatinine (U) [Mass/Vol] 127.00 mg/dL NO RANGE EST. [facility] Urine protein/creatinine mas s ratioOrdered By: Tami Chang on 10-10-2023 Protein/Creatinine (U) [Mass ratio] 102 mg/g CRE 0-200 [facility] CBC W Auto Differential pane l (Bld)on 09-23-2023 Basophils (Bld) [#/Vol] 0.06 10*3/uL <0.11 k/uL [facility] Basophils/100 WBC (Bld) 0.9 % [facility] Differential cell count method Nom (Bld) Auto [facility] Eosinophils (Bld) [#/Vol] 0.11 10*3/uL <0.46 k/uL [facility] Eosinophils/100 WBC (Bld) 1.6 % [facility] Erythrocyte distribution width (RBC) [Ratio] 14.9 % 11.5 - 15.0 % [facility] Hematocrit (Bld) [Volume fraction] 35.8 % Low 36.0 - 46.0 % [facility] Hemoglobin (Bld) [Mass/Vol] 12.0 g/dL 11.5 - 15.5 g/dL [facility] Immature granulocytes (Bld) [#/Vol] <0.10 k/uL [facility] Immature granulocytes/100 WBC (Bld) 0.3 % [facility] Lymphocytes (Bld) [#/Vol] 2.43 10*3/uL 1.00 - 4.00 k/uL [facility] Lymphocytes/100 WBC (Bld) 35.5 % [facility] MCH (RBC) [Entitic mass] 29.3 pg 26.0 - 34.0 pg [facility] MCHC (RBC) [Mass/Vol] 33.5 g/dL 30.5 - 36.0 g/dL [facility] MCV (RBC) [Entitic vol] 87.5 fL 80.0 - 100.0 fL [facility] Monocytes (Bld) [#/Vol] 0.40 10*3/uL <0.87 k/uL [facility] Monocytes/100 WBC (Bld) 5.8 % [facility] Neutrophils (Bld) [#/Vol] 3.82 10*3/uL 1.45 - 7.50 k/uL [facility] Neutrophils/100 WBC (Bld) 55.9 % [facility] Nucleated RBC (Bld) [#/Vol] <0.01 k/uL [facility] Nucleated RBC/100 WBC (Bld) [Ratio] 0.0 /100 WBC [facility] Platelet mean volume (Bld) [Entitic vol] 9.3 fL 9.0 - 12.7 fL [facility] Platelets (Bld) [#/Vol] 323 10*3/uL 150 - 400 k/uL [facility] RBC (Bld) [#/Vol] 4.09 10*6/uL 3.90 - 5.20 m/uL [facility] WBC (Bld) [#/Vol] 6.84 10*3/uL 3.70 - 11.00 k/uL [facility] Comprehensive metabolic 2000 panelon 09-23-2023 Albumin [Mass/Vol] 4.1 g/dL 3.9 - 4.9 g/dL [facility] ALP [Catalytic activity/Vol] 79 U/L 34 - 123 U/L [facility] ALT [Catalytic activity/Vol] 16 U/L 7 - 38 U/L [facility] Anion gap [Moles/Vol] 9 mmol/L 9 - 18 mmol/L [facility] AST [Catalytic activity/Vol] 14 U/L 13 - 35 U/L [facility] Bilirubin [Mass/Vol] 0.4 mg/dL 0.2 - 1 .3 mg/dL [facility] Calcium [Mass/Vol] 9.2 mg/dL 8.5 - 10. 2 mg/dL [facility] Chloride [Moles/Vol] 104 mmol/L 97 - 10 5 mmol/L [facility] CO2 [Moles/Vol] 25 mmol/L 22 - 30 mmol/L [facility] Creatinine [Mass/Vol] 0.62 mg/dL 0.58 - 0.96 mg/dL [facility] Estimated Glomerular Filtration Rate 91 mL/min/1.73m >=60 mL/min/1.7 3m [facility] Glucose [Mass/Vol] 135 mg/dL High 74 - 99 mg/dL [facility] Potassium [Moles/Vol] 4.1 mmol/L 3.7 - 5.1 mmol/L [facility] Protein [Mass/Vol] 6.7 g/dL 6.3 - 8.0 g/dL [facility] Sodium [Moles/Vol] 138 mmol/L 136 - 144 mmol/L [facility] Urea nitrogen [Mass/Vol] 13 mg/dL 7 - 21 mg/dL [facility] CNPNon 09-02-2023 CNPN Telephone ([facility] [employer]) DANETTE BISHOP ([id number]) 1945 F Date Time Provider Department 09/02/23 FREDA MATOS During your visit today, we recorded the following information about you: Sandra Zabala 09/02/2023 12:51 PM Signed Patient called 09/02/2023 Dr Christiano Centeno suggested that patient needed to be drained again. Patient would like to know if this could be done on 09/05/2023. Kelly Aguayo LPN 09/02/2023 1:40 PM Signed Returned pt call, Informed pt I will call her Tuesday morning after I speak with both Callie and regarding the best time for pt to come in for a seroma check. Pt thanked me and will wait to hear back. Kelly Aguayo LPN Allergies As of Date: 09/02/2023 Noted Allergy Reaction ADHESIVE TAPE-SILICONES 10/27/2020 2 - Rash SHELLFISH DERIVED 08/08/2020 7 - Swelling Date Reviewed: 09/02/2023 Reviewed by: Christiano Centeno DO - Fully Assessed Reason for Visit: Patient Question [1897] Appointment [186] Cmt: Drained Prescriptions as of 09/02/2023 - D-MANNOSE ORAL Take 2 tablets by mouth once daily. - HYDROcodone-acetaminophen (NORCO) 5-325 mg per tablet Take 1 tablet by mouth every 6 hours as needed for pain for up to 3 days. - letrozole (FEMARA) 2.5 mg tablet Take 1 tablet by mouth once daily. - calcium carbonate (CALCIUM 500 ORAL) Take 1 tablet by mouth once daily. - Ascorbic Acid (VITAMIN C) 1,000 mg tablet Take 1,000 mg by mouth once daily. - FLUoxetine (PROZAC) 40 mg capsule Take 1 capsule by mouth once daily. - multivitamin tablet Take 1 tablet by mouth once daily. - levothyroxine (SYNTHROID) 112 mcg tablet Take 112 mcg by mouth once daily. - promethazine (PHENERGAN) 25 mg tablet Take 1 tablet by mouth every 6 hours as needed. FOR NAUSEA - liothyronine (CYTOMEL) 5 mcg tablet Take 5 mcg by mouth once daily. - lisinopril (ZESTRIL, PRINIVIL) 20 mg tablet Take 20 mg by mouth once daily. - esomeprazole (NEXIUM) 40 mg capsule Take 40 mg by mouth DAILY (6 AM). - ACETAMINOPHEN (TYLENOL ORAL) Take by mouth. - zolpidem (AMBIEN) 10 mg tab Take 10 mg by mouth daily at bedtime. - ALPRAZolam (XANAX) 0.5 mg tablet Take 0.5 mg by mouth at bedtime as needed. - clopidogrel (PLAVIX) 75 mg tablet Take 75 mg by mouth once daily. Facility-Administered Medications as of 09/02/2023 - NaCl 0.9% iv infusion - diphenhydrAMINE 50 mg injection (BENADRYL) - hydrocortisone sodium succinate (PF) 100 mg injection (Solu-CORTEF) - EPINEPHrine HCl (PF) 1 mg/mL (1 mL) 0.3 mg injection - perflutren lipid microspheres 1.3 mL in NaCl (PF) 0.9% 10 mL injection (DEFINITY) - sodium chloride 0.9 % (flush) 10 mL (BD POSIFLUSH) - perflutren lipid microspheres 1.3 mL in NaCl (PF) 0.9% 10 mL injection (DEFINITY) - sodium chloride 0.9 % (flush) 10 mL (BD POSIFLUSH) Problem List As Of Date 09/02/2023 Noted Resolved 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, right (HCC*08/29/2020 HER2-positive carcinoma of left breast (HCC) [C*08/29/2020 Local recurrence of cancer of left breast (HCC)*04/26/2022 Stage IV breast cancer in female (HCC) [C50.919]04/26/2022 Sleep apnea [G47.30] 06/20/2023 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] 12/31/2022 Hypothyroidism, unspecified [E03.9] 02/15/2022 TIA (transient ischemic attack) [G45.9] 06/20/2023 Grade I diastolic dysfunction [I51.89] 06/20/2023 Anxiety and depression [F41.9, F32.A] 06/20/2023 BCC (basal cell carcinoma of skin) [C44.91] 06/20/2023 Chronic back pain [M54.9, G89.29] 06/20/2023 Carcinoma of left breast, stage 4 (HCC) [C50.91*08/15/2023 Seroma of breast [N64.89] 08/15/2023 Encounter Status:Closed by SANDRA ZABALA on 09/02/23 [facility] CBC W Auto Differential pane l (Bld)on 08-30-2023 Basophils (Bld) [#/Vol] 0.08 10*3/uL <0.11 k/uL [facility] Basophils/100 WBC (Bld) 1.2 % [facility] Differential cell count method Nom (Bld) Auto [facility] Eosinophils (Bld) [#/Vol] 0.17 10*3/uL <0.46 k/uL [facility] Eosinophils/100 WBC (Bld) 2.6 % [facility] Erythrocyte distribution width (RBC) [Ratio] 14.7 % 11.5 - 15.0 % [facility] Hematocrit (Bld) [Volume fraction] 36.2 % 36.0 - 46.0 % [facility] Hemoglobin (Bld) [Mass/Vol] 12.1 g/dL 11.5 - 15.5 g/dL [facility] Immature granulocytes (Bld) [#/Vol] <0.10 k/uL [facility] Immature granulocytes/100 WBC (Bld) 0.3 % [facility] Lymphocytes (Bld) [#/Vol] 2.10 10*3/uL 1.00 - 4.00 k/uL [facility] Lymphocytes/100 WBC (Bld) 32.2 % [facility] MCH (RBC) [Entitic mass] 29.4 pg 26.0 - 34.0 pg [facility] MCHC (RBC) [Mass/Vol] 33.4 g/dL 30.5 - 36.0 g/dL [facility] MCV (RBC) [Entitic vol] 87.9 fL 80.0 - 100.0 fL [facility] Monocytes (Bld) [#/Vol] 0.37 10*3/uL <0.87 k/uL [facility] Monocytes/100 WBC (Bld) 5.7 % [facility] Neutrophils (Bld) [#/Vol] 3.79 10*3/uL 1.45 - 7.50 k/uL [facility] Neutrophils/100 WBC (Bld) 58.0 % [facility] Nucleated RBC (Bld) [#/Vol] <0.01 k/uL [facility] Nucleated RBC/100 WBC (Bld) [Ratio] 0.0 /100 WBC [facility] Platelet mean volume (Bld) [Entitic vol] 9.6 fL 9.0 - 12.7 fL [facility] Platelets (Bld) [#/Vol] 338 10*3/uL 150 - 400 k/uL [facility] RBC (Bld) [#/Vol] 4.12 10*6/uL 3.90 - 5.20 m/uL [facility] WBC (Bld) [#/Vol] 6.53 10*3/uL 3.70 - 11.00 k/uL [facility] Comprehensive metabolic 2000 panelon 08-30-2023 Albumin [Mass/Vol] 4.0 g/dL 3.9 - 4.9 g/dL [facility] ALP [Catalytic activity/Vol] 83 U/L 34 - 123 U/L [facility] ALT [Catalytic activity/Vol] 12 U/L 7 - 38 U/L [facility] Anion gap [Moles/Vol] 8 mmol/L Low 9 - 18 mmol/L [facility] AST [Catalytic activity/Vol] 14 U/L 13 - 35 U/L [facility] Bilirubin [Mass/Vol] 0.5 mg/dL 0.2 - 1 .3 mg/dL [facility] Calcium [Mass/Vol] 9.3 mg/dL 8.5 - 10. 2 mg/dL [facility] Chloride [Moles/Vol] 101 mmol/L 97 - 10 5 mmol/L [facility] CO2 [Moles/Vol] 26 mmol/L 22 - 30 mmol/L [facility] Creatinine [Mass/Vol] 0.66 mg/dL 0.58 - 0.96 mg/dL [facility] Estimated Glomerular Filtration Rate 90 mL/min/1.73m >=60 mL/min/1.7 3m [facility] Glucose [Mass/Vol] 88 mg/dL 74 - 99 mg/dL [facility] Potassium [Moles/Vol] 4.2 mmol/L 3.7 - 5.1 mmol/L [facility] Protein [Mass/Vol] 6.8 g/dL 6.3 - 8.0 g/dL [facility] Sodium [Moles/Vol] 135 mmol/L Low 136 - 144 mmol/L [facility] Urea nitrogen [Mass/Vol] 11 mg/dL 7 - 21 mg/dL [facility] ALLIED HEALTHon 08-22-2023 [facility] HNO ID: [id number] Author: ARTHUR CARSON RT(R) Service: Radiology Author Type: Technologist Type: Allied Health Filed: 08/22/2023 13:52 Note Text: Radiology Service Progress Note PATIENT NAME: Danette Bishop DATE OF SERVICE: August 22, 2023 TIME: 1:51 PM PATIENT IDENTITY VERIFICATION COMPLETED USING TWO (2) IDENTIFIERS: Name and Date of confirmed by patient verbally and Name and Date of confirmed by identification band. FALL SCREENING: Has the patient had 2 falls in the last year or 1 fall with injury or currently using an Ambulatory Assistive Device (Walker, Cane, Wheelchair, Crutches, etc.)? No PATIENT GENDER DATA: Female. status: : No status: NO. PATIENT RELEVANT IMPLANT DATA REVIEWED: Yes PATIENT PRESENTS WITH AN IMPLANTABLE OR ATTACHED GARNETTER: No RADIOLOGY DEPARTMENT: MR; Exam(s) Completed: Body: Liver (routine) PERIPHERAL IV DATA: Not applicable - RN de accessed port SIGNED BY: RT Brady(R) August 22, 2023 1:51 PM [facility] MRI ABDOMEN WO/W IVCONon MRI ABDOMEN WO/W IVCON * * *Final Report * * * DATE OF EXAM: Aug 22 2023 2:22PM [facility] 0689 - MRI ABDOMEN WO/W IVCON / PROCEDURE REASON: multiple diagnoses * * * * Physician Interpretation * * * * MRI ABDOMEN WITHOUT AND WITH CONTRAST 08/22/2023 2:22 PM HISTORY: Breast cancer, stage 4, left (HCC) 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 Contrast: IV: 14 mL of Dotarem COMPARISON: MRI liver 10/14/2022 and 05/17/2023 RESULT: Liver: Unchanged size of a 13 mm T1 hypointense nodule in the right dome of the liver (9:18). Unchanged size of a 13 x 11 mm T1 hypointense nodule in the lateral right lobe of the liver (9:29). No new liver lesion. Normal morphology. Biliary: No duct dilation or filling defect. Gallbladder is unremarkable. Spleen: No mass. No splenomegaly. Pancreas: No mass or duct dilation. Adrenals: No mass. Kidneys: The kidneys enhance symmetrically. No hydronephrosis. Small bilateral renal cysts. GI tract: Visualized loops of bowel are nondistended. Lymph nodes: No abdominal lymphadenopathy. Mesentery/peritoneum: No mass or ascites Vasculature: No abdominal aortic aneurysm. Celiac axis and SMA are patent. Portal vein and branches, splenic vein, superior mesenteric vein and hepatic veins are patent. - - IMPRESSION: UNCHANGED T1 HYPOINTENSE NODULES IN THE RIGHT LOBE THE LIVER. NO NEW NODULES ARE VISUALIZED. Home Care Liaison: YOLIS Transcribe Date/Time: Aug 23 2023 4:54P Dictated by : JEISON HINES MD This examination was interpreted and the report reviewed and electronically signed by: JEISON HINES MD on Aug 23 2023 5:02PM EST [id number] [facility] NM PET/CT SKULL-THIGH SUBQon 08-22-2023 NM PET/CT SKULL-THIGH SUBQ * * *Final Report* * * DATE OF EXAM: Aug 22 2023 12:58PM MDP 0063 - NM PET/CT SKULL-THIGH SUBQ / PROCEDURE REASON: multiple diagnoses * * * * Physician Interpretation * * * * EXAMINATION: BODY FDG PET-CT CLINICAL HISTORY: 78 years old Female with Breast cancer, stage 4, left (HCC) 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 INDICATION: Subsequent treatment strategy. TECHNIQUE: Radiopharmaceutical was administered IV followed about 60 minutes later by PET imaging from skull base to proximal thighs. Free breathing, low dose CT of the same body region was acquired without IV contrast for attenuation correction and anatomic localization. * CT Dose-Length Product (DLP): 347 mGy*cm * CT Dose Reduction Employed: Yes * Blood glucose (mg/dL): - * Radiopharmaceutical Dose: 10.4 mCi * Radiopharmaceutical: Y52-Lviohdhypcurccqdwb (FDG) COMPARISON: 04/21/2023 CORRELATION: MRI abdomen 05/17/2023 RESULT: REFERENCES: SUV reference values: * Blood pool (descending aorta) activity: SUVmax 2.4 * Background liver activity: SUVmax 3.6; SUVmean 3.[address] Sql Developer (topogram) images: Notes and limitations: * Standardized uptake values indicate the highest activity concentration (SUVmax) at a given location but can be variable and are not absolute. * Physiologic/non-neoplastic uptake is common in the brain, extraocular muscles, oral cavity, tonsils, salivary glands, vocal cords, myocardium, liver, GI tract, urinary tract, and bone marrow among others. Certain regions and organ systems can have more intense uptake, which could confound or obscure some pathology. * Unenhanced imaging is limited for the evaluation of some pathology and the acquired CT was not designed to produce or replace diagnostic CT scan quality. * PET-CT is often not sensitive for pulmonary nodules less than 8 mm. HEAD AND NECK: Imaged Head: No abnormal uptake. Neck and Lymph Nodes: No abnormal uptake. Thyroid: No abnormal uptake. CHEST: Lungs and Airways: No abnormal uptake. Pleura and Pericardium: No abnormal uptake. Cardiovascular: No abnormal uptake. Mediastinum and Lymph Nodes: No abnormal uptake. Interval left mastectomy with diffuse subcutaneous mild uptake likely inflammatory. ABDOMEN AND PELVIS: Hepatobiliary: No abnormal uptake. Spleen: No abnormal uptake. Pancreas: No abnormal uptake. Adrenals: No abnormal uptake. Urinary Tract: No abnormal uptake. GI Tract: No abnormal uptake. Peritoneum: No abnormal uptake. Vasculature: No abnormal uptake. Retroperitoneum and Lymph Nodes: No abnormal uptake. Pelvis: No abnormal uptake. MUSCULOSKELETAL: Osseous: No abnormal uptake. Degenerative changes. Lower lumbar spinal fusion. Mild uptake at L5-S1 likely inflammatory. Soft Tissues: No abnormal uptake. IMPRESSION: HEAD/NECK: * No FDG avid neoplastic process. CHEST: * No FDG avid neoplastic process. Status post left mastectomy with diffuse subcutaneous mild uptake likely inflammatory. ABDOMEN/PELVIS: * No FDG avid neoplastic process. MUSCULOSKELETAL: * No FDG avid neoplastic process. Home Care Liaison: YOLIS Transcribe Date/Time: Aug 23 2023 1:00P Dictated by : LINK JACKSON MD This examination was interpreted and the report reviewed and electronically signed by: LINK JACKSON MD on Aug 23 2023 1:10PM EST [id number] Normal [facility] NURSING PROGon 08-22-2023 NURSING PROG HNO ID: [id number] Author: LEONOR WARNER RN Service: Radiology Author Type: Registered Nurse Type: Nursing Progress Note Filed: 08/22/2023 13:36 Note Text: Radiology Service Progress Note DATE OF SERVICE: August 22, 2023 TIME: 1:34 PM PATIENT WEIGHT: 153LBS PATIENT IDENTITY VERIFICATION COMPLETED USING TWO (2) STANDARD IDENTIFIERS: Name and Date of confirmed by patient verbally and Name and Date of confirmed by identification band. FALL SCREENING: Has the patient had 2 falls in the last year or 1 fall with injury or currently using an Ambulatory Assistive Device (Walker, Cane, Wheelchair, Crutches, etc.)? No PATIENT GENDER DATA: Female. status: : No status: NO. ALLERGIES: Reviewed and unchanged CONTRAST ALLERGY: No EXAM: MRI IV SITE: Ambulatory: A power injectable Mediport was accessed in the Right chest with a 3/4 inch 20 gauge needle. Blood Return, Flushed easily with normal saline, Good Blood Return Post Injection, and No Complications IV SITE APPEARANCE: Clean,Dry and Intact SIGNATURE: Leonor Warner RN PATIENT NAME: Danette Bishop DATE: August 22, 2023 TIME: 1:34 PM [facility] CBC W Auto Differential pane l (Bld)on 08-12-2023 Basophils (Bld) [#/Vol] 0.07 10*3/uL <0.11 k/uL [facility] Basophils/100 WBC (Bld) 1.2 % [facility] Differential cell count method Nom (Bld) Auto [facility] Eosinophils (Bld) [#/Vol] 0.09 10*3/uL <0.46 k/uL [facility] Eosinophils/100 WBC (Bld) 1.6 % [facility] Erythrocyte distribution width (RBC) [Ratio] 14.9 % 11.5 - 15.0 % [facility] Hematocrit (Bld) [Volume fraction] 35.4 % Low 36.0 - 46.0 % [facility] Hemoglobin (Bld) [Mass/Vol] 11.9 g/dL 11.5 - 15.5 g/dL [facility] Immature granulocytes (Bld) [#/Vol] 0.03 10*3/uL <0.10 k/uL [facility] Immature granulocytes/100 WBC (Bld) 0.5 % [facility] Lymphocytes (Bld) [#/Vol] 1.60 10*3/uL 1.00 - 4.00 k/uL [facility] Lymphocytes/100 WBC (Bld) 28.5 % [facility] MCH (RBC) [Entitic mass] 29.7 pg 26.0 - 34.0 pg [facility] MCHC (RBC) [Mass/Vol] 33.6 g/dL 30.5 - 36.0 g/dL [facility] MCV (RBC) [Entitic vol] 88.3 fL 80.0 - 100.0 fL [facility] Monocytes (Bld) [#/Vol] 0.31 10*3/uL <0.87 k/uL [facility] Monocytes/100 WBC (Bld) 5.5 % [facility] Neutrophils (Bld) [#/Vol] 3.51 10*3/uL 1.45 - 7.50 k/uL [facility] Neutrophils/100 WBC (Bld) 62.7 % [facility] Nucleated RBC (Bld) [#/Vol] <0.01 k/uL [facility] Nucleated RBC/100 WBC (Bld) [Ratio] 0.0 /100 WBC [facility] Platelet mean volume (Bld) [Entitic vol] 9.7 fL 9.0 - 12.7 fL [facility] Platelets (Bld) [#/Vol] 337 10*3/uL 150 - 400 k/uL [facility] RBC (Bld) [#/Vol] 4.01 10*6/uL 3.90 - 5.20 m/uL [facility] WBC (Bld) [#/Vol] 5.61 10*3/uL 3.70 - 11.00 k/uL [facility] Comprehensive metabolic 2000 panelon 08-12-2023 Albumin [Mass/Vol] 4.1 g/dL 3.9 - 4.9 g/dL [facility] ALP [Catalytic activity/Vol] 76 U/L 34 - 123 U/L [facility] ALT [Catalytic activity/Vol] 12 U/L 7 - 38 U/L [facility] Anion gap [Moles/Vol] 6 mmol/L Low 9 - 18 mmol/L [facility] AST [Catalytic activity/Vol] 13 U/L 13 - 35 U/L [facility] Bilirubin [Mass/Vol] 0.5 mg/dL 0.2 - 1 .3 mg/dL [facility] Calcium [Mass/Vol] 9.2 mg/dL 8.5 - 10. 2 mg/dL [facility] Chloride [Moles/Vol] 102 mmol/L 97 - 10 5 mmol/L [facility] CO2 [Moles/Vol] 26 mmol/L 22 - 30 mmol/L [facility] Creatinine [Mass/Vol] 0.60 mg/dL 0.58 - 0.96 mg/dL [facility] Estimated Glomerular Filtration Rate 92 mL/min/1.73m >=60 mL/min/1.7 3m [facility] Glucose [Mass/Vol] 98 mg/dL 74 - 99 mg/dL [facility] Potassium [Moles/Vol] 4.3 mmol/L 3.7 - 5.1 mmol/L [facility] Protein [Mass/Vol] 6.6 g/dL 6.3 - 8.0 g/dL [facility] Sodium [Moles/Vol] 134 mmol/L Low 136 - 144 mmol/L [facility] Urea nitrogen [Mass/Vol] 11 mg/dL 7 - 21 mg/dL [facility] CBC W Auto Differential pane l (Bld)on 07-19-2023 Basophils (Bld) [#/Vol] 0.08 10*3/uL <0.11 k/uL [facility] Basophils/100 WBC (Bld) 1.2 % [facility] Differential cell count method Nom (Bld) Auto [facility] Eosinophils (Bld) [#/Vol] 0.11 10*3/uL <0.46 k/uL [facility] Eosinophils/100 WBC (Bld) 1.7 % [facility] Erythrocyte distribution width (RBC) [Ratio] 14.6 % 11.5 - 15.0 % [facility] Hematocrit (Bld) [Volume fraction] 36.0 % 36.0 - 46.0 % [facility] Hemoglobin (Bld) [Mass/Vol] 12.1 g/dL 11.5 - 15.5 g/dL [facility] Immature granulocytes (Bld) [#/Vol] <0.10 k/uL [facility] Immature granulocytes/100 WBC (Bld) 0.3 % [facility] Lymphocytes (Bld) [#/Vol] 1.95 10*3/uL 1.00 - 4.00 k/uL [facility] Lymphocytes/100 WBC (Bld) 29.7 % [facility] MCH (RBC) [Entitic mass] 30.0 pg 26.0 - 34.0 pg [facility] MCHC (RBC) [Mass/Vol] 33.6 g/dL 30.5 - 36.0 g/dL [facility] MCV (RBC) [Entitic vol] 89.1 fL 80.0 - 100.0 fL [facility] Monocytes (Bld) [#/Vol] 0.43 10*3/uL <0.87 k/uL [facility] Monocytes/100 WBC (Bld) 6.6 % [facility] Neutrophils (Bld) [#/Vol] 3.97 10*3/uL 1.45 - 7.50 k/uL [facility] Neutrophils/100 WBC (Bld) 60.5 % [facility] Nucleated RBC (Bld) [#/Vol] <0.01 k/uL [facility] Nucleated RBC/100 WBC (Bld) [Ratio] 0.0 /100 WBC [facility] Platelet mean volume (Bld) [Entitic vol] 9.4 fL 9.0 - 12.7 fL [facility] Platelets (Bld) [#/Vol] 385 10*3/uL 150 - 400 k/uL [facility] RBC (Bld) [#/Vol] 4.04 10*6/uL 3.90 - 5.20 m/uL [facility] WBC (Bld) [#/Vol] 6.56 10*3/uL 3.70 - 11.00 k/uL [facility] Comprehensive metabolic 2000 panelon 07-19-2023 Albumin [Mass/Vol] 4.0 g/dL 3.9 - 4.9 g/dL [facility] ALP [Catalytic activity/Vol] 81 U/L 34 - 123 U/L [facility] ALT [Catalytic activity/Vol] 13 U/L 7 - 38 U/L [facility] Anion gap [Moles/Vol] 9 mmol/L 9 - 18 mmol/L [facility] AST [Catalytic activity/Vol] 14 U/L 13 - 35 U/L [facility] Bilirubin [Mass/Vol] 0.7 mg/dL 0.2 - 1 .3 mg/dL [facility] Calcium [Mass/Vol] 9.1 mg/dL 8.5 - 10. 2 mg/dL [facility] Chloride [Moles/Vol] 100 mmol/L 97 - 10 5 mmol/L [facility] CO2 [Moles/Vol] 25 mmol/L 22 - 30 mmol/L [facility] Creatinine [Mass/Vol] 0.67 mg/dL 0.58 - 0.96 mg/dL [facility] Estimated Glomerular Filtration Rate 90 mL/min/1.73m >=60 mL/min/1.7 3m [facility] Glucose [Mass/Vol] 109 mg/dL High 74 - 99 mg/dL [facility] Potassium [Moles/Vol] 4.2 mmol/L 3.7 - 5.1 mmol/L [facility] Protein [Mass/Vol] 6.4 g/dL 6.3 - 8.0 g/dL [facility] Sodium [Moles/Vol] 134 mmol/L Low 136 - 144 mmol/L [facility] Urea nitrogen [Mass/Vol] 13 mg/dL 7 - 21 mg/dL [facility] CNPNon 07-01-2023 CNPN Telephone (GENSF) DANETTE BISHOP ([id number]) 1945 F Date Time Provider Department 07/01/23 FIORDALIZA JONES During your visit today, we recorded the following information about you: Fiordaliza Jones RN 07/01/2023 12:02 PM Signed Tuesday drain check call placed to patient. She has one MATTI drain. 10cc output total yesterday and nothing today. No issues with drain: no leaks, swelling. Update sent to surgical team. Doing well post-operatively. Confirmed post-op appointment for 07/06 with Lior Sullivan. Fiordaliza Jones RN Allergies As of Date: 07/01/2023 Noted Allergy Reaction ADHESIVE TAPE-SILICONES 10/27/2020 2 - Rash SHELLFISH DERIVED 08/08/2020 7 - Swelling Date Reviewed: 06/29/2023 Reviewed by: Nico Bennett RN - Fully Assessed Reason for Visit: Post Op Follow Up [3947] Cmt: Drain check Prescriptions as of 07/01/2023 - HYDROcodone-acetaminophen (NORCO) 5-325 mg per tablet Take 1 tablet by mouth every 6 hours as needed for pain for up to 3 days. - cefADROxil (DURICEF) 500 mg capsule Take 1 capsule by mouth two times a day for 10 days. - letrozole (FEMARA) 2.5 mg tablet Take 1 tablet by mouth once daily. - calcium carbonate (CALCIUM 500 ORAL) Take 2 tablets by mouth once daily. - Ascorbic Acid (VITAMIN C) 1,000 mg tablet Take 1,000 mg by mouth once daily. - FLUoxetine (PROZAC) 40 mg capsule Take 1 capsule by mouth once daily. - multivitamin tablet Take 1 tablet by mouth once daily. - levothyroxine (SYNTHROID) 112 mcg tablet Take 112 mcg by mouth once daily. - promethazine (PHENERGAN) 25 mg tablet Take 1 tablet by mouth every 6 hours as needed. FOR NAUSEA - liothyronine (CYTOMEL) 5 mcg tablet Take 5 mcg by mouth once daily. - lisinopril (ZESTRIL, PRINIVIL) 20 mg tablet Take 20 mg by mouth once daily. - esomeprazole (NEXIUM) 40 mg capsule Take 40 mg by mouth DAILY (6 AM). - ACETAMINOPHEN (TYLENOL ORAL) Take by mouth. - zolpidem (AMBIEN) 10 mg tab Take 10 mg by mouth daily at bedtime. - ALPRAZolam (XANAX) 0.5 mg tablet Take 0.5 mg by mouth at bedtime as needed. - clopidogrel (PLAVIX) 75 mg tablet Take 75 mg by mouth once daily. Facility-Administered Medications as of 07/01/2023 - perflutren lipid microspheres 1.3 mL in NaCl (PF) 0.9% 10 mL injection (DEFINITY) - sodium chloride 0.9 % (flush) 10 mL (BD POSIFLUSH) - perflutren lipid microspheres 1.3 mL in NaCl (PF) 0.9% 10 mL injection (DEFINITY) - sodium chloride 0.9 % (flush) 10 mL (BD POSIFLUSH) - perflutren lipid microspheres 1.3 mL in NaCl (PF) 0.9% 10 mL injection (DEFINITY) - sodium chloride 0.9 % (flush) 10 mL (BD POSIFLUSH) Problem List As Of Date 07/01/2023 Noted Resolved 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) [C*08/29/2020 HER2-positive carcinoma of breast (HCC) [C50.91*08/29/2020 Local recurrence of cancer of left breast (HCC)*04/26/2022 Stage IV breast cancer in female (HCC) [C50.919]04/26/2022 Sleep apnea [G47.30] 06/20/2023 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] 12/31/2022 Hypothyroidism, unspecified [E03.9] 02/15/2022 TIA (transient ischemic attack) [G45.9] 06/20/2023 Grade I diastolic dysfunction [I51.89] 06/20/2023 Anxiety and depression [F41.9, F32.A] 06/20/2023 BCC (basal cell carcinoma of skin) [C44.91] 06/20/2023 Chronic back pain [M54.9, G89.29] 06/20/2023 Encounter Status:Closed by FIORDALIZA JONES on 07/01/23 [facility] 06-30-2023 KLEBER Telephone (GENIssacF) DANETTE BISHOP ([id number]) 1945 F Date Time Provider Department 06/30/23 CHRISTIANO GALO During your visit today, we recorded the following information about you: Christiano Galo RN 06/30/2023 10:49 AM Signed BREAST HEALTH NURSE POST-OP PHONE CONTACT: Danette Bishop was contacted via telephone as follow-up from recent breast surgery. TOPICS ADDRESSED: PAIN ASSESSMENT: No 0 on a scale of 0 to 10 EMOTIONAL ASSESSMENT: appropriate. ADJUSTMENT TO DIAGNOSIS AND TREATMENT: reflecting understanding. DRAIN CARE: 1 MATTI drain patent with bloody drainage. Pt is emptying it and documenting amounts as instructed INCISION SITE: ADRIÁN wrap intact. Pt has not showered yet.. NUTRITION: food intake: adequate. fluid intake: adequate. ACTIVITY AND EXERCISE: Understands ROM limitations with drain in place. Teach Back method of education performed. The patient verbalized understanding. FOLLOW UP: Reviewed appt scheduled with PA Allergies As of Date: 06/30/2023 Noted Allergy Reaction ADHESIVE TAPE-SILICONES 10/27/2020 2 - Rash SHELLFISH DERIVED 08/08/2020 7 - Swelling Date Reviewed: 06/29/2023 Reviewed by: Nico Bennett RN - Fully Assessed Reason for Visit: Post Op Call [[id number]] Prescriptions as of 06/30/2023 - HYDROcodone-acetaminophen (NORCO) 5-325 mg per tablet Take 1 tablet by mouth every 6 hours as needed for pain for up to 3 days. - cefADROxil (DURICEF) 500 mg capsule Take 1 capsule by mouth two times a day for 10 days. - letrozole (FEMARA) 2.5 mg tablet Take 1 tablet by mouth once daily. - calcium carbonate (CALCIUM 500 ORAL) Take 2 tablets by mouth once daily. - Ascorbic Acid (VITAMIN C) 1,000 mg tablet Take 1,000 mg by mouth once daily. - FLUoxetine (PROZAC) 40 mg capsule Take 1 capsule by mouth once daily. - multivitamin tablet Take 1 tablet by mouth once daily. - levothyroxine (SYNTHROID) 112 mcg tablet Take 112 mcg by mouth once daily. - promethazine (PHENERGAN) 25 mg tablet Take 1 tablet by mouth every 6 hours as needed. FOR NAUSEA - liothyronine (CYTOMEL) 5 mcg tablet Take 5 mcg by mouth once daily. - lisinopril (ZESTRIL, PRINIVIL) 20 mg tablet Take 20 mg by mouth once daily. - esomeprazole (NEXIUM) 40 mg capsule Take 40 mg by mouth DAILY (6 AM). - ACETAMINOPHEN (TYLENOL ORAL) Take by mouth. - zolpidem (AMBIEN) 10 mg tab Take 10 mg by mouth daily at bedtime. - ALPRAZolam (XANAX) 0.5 mg tablet Take 0.5 mg by mouth at bedtime as needed. - clopidogrel (PLAVIX) 75 mg tablet Take 75 mg by mouth once daily. Facility-Administered Medications as of 06/30/2023 - perflutren lipid microspheres 1.3 mL in NaCl (PF) 0.9% 10 mL injection (DEFINITY) - sodium chloride 0.9 % (flush) 10 mL (BD POSIFLUSH) - perflutren lipid microspheres 1.3 mL in NaCl (PF) 0.9% 10 mL injection (DEFINITY) - sodium chloride 0.9 % (flush) 10 mL (BD POSIFLUSH) - perflutren lipid microspheres 1.3 mL in NaCl (PF) 0.9% 10 mL injection (DEFINITY) - sodium chloride 0.9 % (flush) 10 mL (BD POSIFLUSH) Problem List As Of Date 06/30/2023 Noted Resolved 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) [C*08/29/2020 HER2-positive carcinoma of breast (HCC) [C50.91*08/29/2020 Local recurrence of cancer of left breast (HCC)*04/26/2022 Stage IV breast cancer in female (HCC) [C50.919]04/26/2022 Sleep apnea [G47.30] 06/20/2023 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] 12/31/2022 Hypothyroidism, unspecified [E03.9] 02/15/2022 TIA (transient ischemic attack) [G45.9] 06/20/2023 Grade I diastolic dysfunction [I51.89] 06/20/2023 Anxiety and depression [F41.9, F32.A] 06/20/2023 BCC (basal cell carcinoma of skin) [C44.91] 06/20/2023 Chronic back pain [M54.9, G89.29] 06/20/2023 Encounter Status:Closed by CHRISTIANO GALO on 06/30/23 [facility] NURSING PROGon 06-29-2023 NURSING PROG HNO ID: [id number] Author: NICO BENNETT, RN Service: Nursing Author Type: Registered Nurse Type: Nursing Progress Note Filed: 06/29/2023 15:23 Note Text: Other: 1220 Message sent to Surgery team that pt's MATTI hadn't drained anything and that she has an ecchymotic area on upper left arm. Area is soft to the touch. 1430 At time of discharge, pt has minimal c/o pain that is controlled with Tylenol, afebrile, tolerating diet and is up independently. MATTI is now draining dark serosanginous fluid. (Surgery team up and did assess drain and ecchymotic area earlier and stripped the MATTI). Homegoing instructions given with good understanding. Discharged with via WC. [facility] ANES POSTPROC EVALon 024 ANES POSTPROC EVAL HNO ID: [id number] Author: KRISTIN ALVAREZ MD Service: Critical Care Author Type: Anesthesiologist Type: Anesthesia Postprocedure Evaluation Filed: 06/28/2023 17:25 Note Text: POST ANESTHESIA EVALUATION NOTE : 1945 Procedure Summary Date: 06/28/23 Room / Location: OR / OR Anesthesia Start: 1030 Anesthesia Stop: 1210 Procedure: MASTECTOMY SIMPLE (Left: Breast) Diagnosis: HER2-positive carcinoma of breast (HCC) (HER2-positive carcinoma of breast (HCC) [C50.919]) Surgeons: Freda Matos DO Responsible Provider: Kristin Alvarez MD Anesthesia Type: general ASA Status: 3 Anesthesia Type: general Airway Type: LMA Last Vitals Vitals Value Taken Time BP 143/61 06/28/23 1452 Temp 36.7 ?C (98 ?F) 06/28/23 1452 HR SpO2 84 06/28/23 1341 Resp 18 06/28/23 1452 SpO2 97 % 06/28/23 1452 Vitals shown include unfiled device data. Post Anesthesia Patient Status Patient Evaluation: PACU. PACU/ICU Patient Condition: stable. Anticipated Disposition: phase 2 then home. Neurological Status: aware and responsive. Pulmonary Status: breathing comfortably on room air Airway Control: returned to baseline unsupported. Cardiovascular Status: stable. Pain Management: clinically adequate Postoperative Hydration: acceptable. Intraoperative Events: no significant anesthesia events Recommendation: continue current plan of care. Anesthesia Observations No Documentation SIGNATURE: Kristin Alvarez MD PATIENT NAME: Danette Bishop DATE: June 28, 2023 TIME: 5:25 PM CSN: [id number] [facility] ANES PRE-OPon 06-28-2023 ANES PRE-OP HNO ID: [id number] Author: KRISTIN ALVAREZ MD Service: Critical Care Author Type: Anesthesiologist Type: Anesthesia Preprocedure Evaluation Filed: 06/28/2023 10:21 Note Text: ANESTHESIOLOGY DAY OF SURGERY NOTE : 1945 Procedure Information Date/Time: 06/28/23 1100 Procedure: MASTECTOMY SIMPLE (Left: Breast) Location: [facility] OR04 / [facility] OR Surgeons: Freda Matos DO Estimated body mass index is 28.63 kg/m? as calculated from the following: Height as of 06/20/23: 156.2 cm (5' 1.5"). Weight as of 06/20/23: 69.9 kg (154 lb). 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 Tracheostomy tube not present Mallampati: II. TM distance: >3 FB. Neck ROM: full ROM without neurological symptoms. Mouth opening: adequate. Short neck: no. Thick neck: no DENTAL Dental findings: edentulous. Additional exam findings: yes. CARDIOVASCULAR Normal cardiovascular observations. Rhythm: regular Rate: normal PULMONARY Normal pulmonary observations. Breath sounds clear to auscultation. II - ANESTHESIA PLAN ASA Score: 3 Anesthetic Plan: general Airway type: LMA NPO Status: adequate Beta Javi Monitoring Plan Monitoring plan: standard ASA. Post Procedure Analgesic Plan Postoperative analgesic plan: parenteral or oral opioids. Informed Consent Anesthetic risks, benefits, alternatives, personnel and consent discussed: yes. Patient / Responsible Republican agrees to proceed: yes Patient / Surrogate agrees to blood products: Yes Significant changes in the patient condition since the History and Physical, not otherwise documented in primary service progress note: no. Potential Anesthesia issues that may suggest increased risk of complications or contraindication to planned procedure: none. Vitals Value Taken Time BP 156/74 06/28/23 1014 Pulse 77 06/28/23 1014 Resp 16 06/28/23 1014 Temp 36.6 ?C (97.9 ?F) 06/28/23 1014 SpO2 99 % 06/28/23 1014 Facility-Administered Medications as of 06/28/2023 Medication Dose Route Frequency - lidocaine (PF) 10 mg/mL (1 %) 1-2 mg injection (XYLOCAINE) 0.1-0.2 mL INTRADERMAL PRN - lactated ringers iv infusion 5-30 mL/hr INTRAVENOUS CONTINUOUS - NaCl 0.9% iv flush bag 20 mL INTRAVENOUS PRN - ceFAZolin iv piggyback 2 g in D5W (iso-osmotic) 100 mL (ANCEF) 2 g INTRAVENOUS Pre-Op Once - [COMPLETED] acetaminophen 1,000 mg tab(s) (TYLENOL) 1,000 mg ORAL ONCE - [COMPLETED] promethazine 12.5 mg tab(s) (PHENERGAN) 12.5 mg ORAL Pre-Op Once - lactated ringers iv infusion 30 mL/hr INTRAVENOUS CONTINUOUS Outpatient Medications as of 06/28/2023 Medication Sig - letrozole (FEMARA) 2.5 mg tablet Take 1 tablet by mouth once daily. - calcium carbonate (CALCIUM 500 ORAL) Take 2 tablets by mouth once daily. - Ascorbic Acid (VITAMIN C) 1,000 mg tablet Take 1,000 mg by mouth once daily. - FLUoxetine (PROZAC) 40 mg capsule Take 1 capsule by mouth once daily. - multivitamin tablet Take 1 tablet by mouth once daily. - levothyroxine (SYNTHROID) 112 mcg tablet Take 112 mcg by mouth once daily. - liothyronine (CYTOMEL) 5 mcg tablet Take 5 mcg by mouth once daily. - lisinopril (ZESTRIL, PRINIVIL) 20 mg tablet Take 20 mg by mouth once daily. - esomeprazole (NEXIUM) 40 mg capsule Take 40 mg by mouth DAILY (6 AM). - ACETAMINOPHEN (TYLENOL ORAL) Take by mouth. - zolpidem (AMBIEN) 10 mg tab Take 10 mg by mouth daily at bedtime. - ALPRAZolam (XANAX) 0.5 mg tablet Take 0.5 mg by mouth at bedtime as needed. - HYDROcodone-acetaminophen (NORCO) 5-325 mg per tablet Take 1-2 tablets by mouth every 6 hours as needed for pain for up to 5 days. - promethazine (PHENERGAN) 25 mg tablet Take 1 tablet by mouth every 6 hours as needed. FOR NAUSEA - clopidogrel (PLAVIX) 75 mg tablet Take 75 mg by mouth once daily. (Patient not taking: Reported on 06/20/2023) I have interviewed and examined the patient. I have reviewed the medical record and/or the pre-anesthesia evaluation, pertinent labs, and test results. This contains updated information obtained within 48 hours of Surgery/Procedure. SIGNATURE: Kristin Alvarez MD PATIENT NAME: Danette Bishop DATE: June 28, 2023 TIME: 10:20 AM CSN: [id number] [facility] BRIEF OP NOTon 06-28-2023 BRIEF OP NOT HNO ID: [id number] Author: FREDA MATOS DO Service: General Surgery Author Type: Physician Type: Brief Op Note Filed: 06/28/2023 11:55 Note Text: BRIEF OPERATIVE / PROCEDURE NOTE LOG ID: [id number] SURGERY/PROCEDURE DATE: 06/28/2023 INCISION/PROCEDURE START TIME: 10:47 AM INCISION CLOSE/PROCEDURE END TIME: 11:47 AM SURGEON(S)/PROCEDURALIST(S) AND HOSPITAL SOCIAL WORKER(S): Surgeon(s) and Role: * Freda Matos DO - Primary Physician Submarine Element Coordinator: Callie Sullvian PA-C SURGERY/PROCEDURE(S): LEFT simple mastectomy ANESTHESIA: General ESTIMATED BLOOD LOSS: 30 mls SPECIMENS: ID Type Source Tests Collected by Time Destination A : left mastectomy, short stitch superior, long stitch lateral Tissue BREAST MASTECTOMY LEFT SURGICAL PATHOLOGY Freda Matos DO 06/28/2023 11:09 AM COMPLICATIONS: None CLOSURE TECHNIQUE: Primary PRE-OP/PRE-PROCEDURE DIAGNOSIS: LEFT breast cancer POST-OP/POST-PROCEDURE DIAGNOSIS: Same as Preop SIGNATURE: Freda Matos DO PATIENT NAME: Danette Bishop DATE: June 28, 2023 TIME: 11:54 AM [facility] SURGICAL BREAST SPECIMEN LTon 06-28-2023 [facility] SURGICAL BREAST SPECIMEN LT * * *Final Report* * * DATE OF EXAM: Jun 28 2023 11:16AM [facility] [id number] - [facility] SURGICAL BREAST SPECIMEN LT / PROCEDURE REASON: Other (document in comments) * * * * Physician Interpretation * * * * RESULT: #[id number] - [facility] SURGICAL BREAST SPECIMEN LT UNI-PLANAR RADIOGRAPH SPECIMEN IMAGING LEFT BREAST: 06/28/2023 HISTORY: Other (Document In Comments). Correlation is made to exams dated: 03/16/2023 mammogram - [facility], 04/22/2022 mammogram - [facility], 09/09/2020 mammogram, and 09/02/2020 mammogram - [facility]. A surgical specimen was imaged using uni-planar radiograph specimen imaging for the previous biopsy site located in the left breast central to the nipple. IMPRESSION: UNI-PLANAR RADIOGRAPH SPECIMEN IMAGING The imaged specimen includes a biopsy clip. SUMMARY: Urgent Results: Specimen radiograph confirms that the coil-shaped clip is contained in the specimen. The results of the specimen radiograph were relayed to Dr. Matos on 06/28/2023 at 1120. Elle ferraro/candelaria:06/28/2023 11:41:53 copy to: Jane ROSARIO, ph: [phone] Director Of Casino Marketing(s): RT Gerry(R)(M), [facility] Multiple national specialty organizations have released breast cancer screening guidelines for women at average risk for developing breast cancer - guidelines that are based on both evidence and opinion, yet differ on when to start and how often to screen for breast cancer. With representation from Breast Imaging, Internal Medicine, Women's Health, Family Medicine, and Medical/Surgical Oncology, the [facility] has carefully reviewed the data and reached the following consensus: 1) All women should engage in shared decision-making with their providers to decide when to start and how often to screen; 2) All women should have the opportunity to start screening mammography at age 40; 3) For women ages 45-55, we recommend annual screening mammograms; 4) For women ages 55 and over, we support both the transition from an annual to a biennial interval if this aligns more with patient's values and preferences, or continuation with annual screening; 5) All women should discuss with their providers when to stop screening mammograms. Home Care Liaison: Candelaria Transcribe Date/Time: Jun 28 2023 11:16A Dictated by: ELLE ROD MD This examination was interpreted and the report reviewed and electronically signed by: ELLE ROD MD on Jun 28 2023 11:41AM EST [id number] Normal [facility] NURSING PROGon 06-28-2023 NURSING PROG HNO ID: [id number] Author: DANIELLE PURI RN Service: Nursing Author Type: Registered Nurse Type: Nursing Progress Note Filed: 06/28/2023 09:51 Note Text: PATIENT EDUCATION TOPIC: PROCEDURE / SURGERY: Pre-op Teaching: Surgery PATIENT NAME: Danette Bishop PATIENT LOCATION: [facility] OR POOL/[facility] OR POOL READINESS TO LEARN COGNITIVE ABILITY: Alert and oriented MOTIVATION TO LEARN: Eager FAMILY SUPPORT: Unable to assess - Family not present INSTRUCTION PROVIDED TO: Patient PATIENT LEARNS BEST BY: Individual Instruction Written Instruction - Hand-outs Verbal Instruction FACTORS AFFECTING LEARNING: None PHYSICAL LIMITATIONS AFFECTING LEARNING: None LEARNING RESPONSE DIAGNOSIS: ADULT: See HANDP PATIENT/FAMILY RESPONSE: Information received as demonstrated by interest and questions METHOD OF INSTRUCTION: Individual instruction Written instruction - handouts Verbal instruction FOLLOW-UP PLAN: Patient instructed to call with any further issues INSTRUCTIONAL AIDS USED: NA SUPPLEMENTAL MATERIAL PROVIDED TO PATIENT: None REFERRAL (RECOMMENDATION): None Electronically Signed By: Danielle Puri [facility] OPERATIVE NOon 06-28-2023 OPERATIVE NO HNO ID: [id number] Author: FREDA MATOS DO Service: General Surgery Author Type: Physician Type: Operative Report Filed: 06/30/2023 09:45 Note Text: [facility] - Operative Report DANETTE BISHOP : 1945 AGE: 78. SEX: F PATIENT TYPE: A HOSP SVC: Surgical LOCATION: [facility] ATTENDING PHYSICIAN: FREDA MATOS CSN NUMBER: [id number] DATE OF SURGERY/PROCEDURE: 06/28/2023 INCISION/PROCEDURE START TIME: 10:47 AM INCISION CLOSE/PROCEDURE END TIME: 11:47 AM PREOPERATIVE DIAGNOSIS: Left breast cancer, metastatic with continued progression in the left breast. POSTOPERATIVE DIAGNOSIS: Left breast cancer, metastatic with continued progression in the left breast. SURGEON: Freda Matos D.O HOSPITAL SOCIAL WORKER: ZARINA Chaney. Please note, there was no available resident or fellow to assist with the case. SURGERY/PROCEDURE: Left simple mastectomy. ANESTHESIA: General INDICATIONS: The patient was found to have a metastatic breast cancer. Imaging showed stability of her metastatic disease, however, increased avidity of her left breast persisted and mastectomy was recommended. The risks and benefits of surgery were discussed with her and she agreed to proceed. She did not want reconstruction. DESCRIPTION OF PROCEDURE: Preoperatively in the holding area, the patient was marked. With the surgical team present, a time-out was performed. She was identified by name and date. Site and surgery were confirmed. She was brought to the operating room, placed in supine position on the operating room table. General anesthesia was induced. Her bilateral breasts, chest, axilla, and upper extremity were prepped and draped in usual sterile fashion. In her left breast, a horizontal elliptical incision was made with care to include her nipple-areolar complex as well as her prior surgical scar and the area of concern in the lower outer quadrant as part of the specimen. Using electrocautery, skin flaps were created superiorly to the clavicle, medially to lateral portion of sternum, laterally to latissimus dorsi, and inferiorly to the inframammary crease. Next, the breast was removed from the underlying chest wall in a cranial to caudal manner with care to include the underlying pectoralis fascia as part of the specimen. Laterally, the axillary contents were identified and preserved. The breast was removed in its entirety and oriented with short stitch superior, long stitch lateral. This was sent for radiograph, which confirmed that the area of concern as well as her prior biopsy site were removed with the specimen. The specimen was then sent to Pathology for permanent sectioning. The wound was copiously irrigated. Hemostasis was achieved. A local infiltrative Pecs I and II block was given, which included a mixture of 20 mL of Exparel with 20 mL of Marcaine. A 15 round Croatian Doug-Rivera drain was brought through a separate stab incision below the IMF, rested on the chest wall and this was sewn in place with a 3-0 nylon. The dermis of the mastectomy was reapproximated with interrupted 2-0 Vicryl and the skin was closed with a running 4-0 Monocryl. Exofin glue was placed on the incision. A Biopatch was placed around the drain site and held in place with a Tegaderm. The patient tolerated the procedure well, was extubated. She was wrapped with fluffs and an ADRIÁN wrap and sent to PACU in stable condition. ESTIMATED BLOOD LOSS: 30 mL. FLUIDS: See Anesthesia. SPECIMENS: Left mastectomy short stitch superior, long stitch lateral. COMPLICATIONS: None. COUNTS: Correct at the end of the case. Please note, I was scrubbed and performed all portions of the surgery with the help of my hospital medical assistant, who assisted with exposure, retraction and wound closure. Freda Matos D.O SV:[id number] /[id number] [facility] SURGICAL PATHOLOGYon 024 BLOCK FOR ADDITIONAL BIOMARKERS/MOLECULAR STUDIES A7 [facility] Comment on above: Order Comment: Speci men Type: TISSUE SPECIMENOrdering Facility: [facility] Address: [address] [place] [address] Performed By: #### S ####[facility] LABCLIA [id number] [place] [address] [place] CASE REPORT Normal [facility] Comment on above: Order Comment: Speci men Type: TISSUE SPECIMENOrdering Facility: [facility] Address: [address] [place] [address] Result Comment: Surg ica Pathology Report Case: [id number] Authorizing Provider: Freda Matos DO Collected: 06/28/2023 11:09 AM Ordering Location: [facility] Received: 06/28/2023 11:50 AM Operating Room Pathologist: Kyle Vila MD Specimen: BREAST MASTECTOMY LEFT, left mastectomy, short stitch superior, long stitch lateral Performed By: #### S ####[facility] LABCLIA [id number] [place] [address] [place] CLINICAL HISTORY Normal [facility] Comment on above: Order Comment: Speci men Type: TISSUE SPECIMENOrdering Facility: [facility] Address: [address] [place] [address] Result Comment: Pre- op diagnosis: HER2-positive carcinoma of breast (HCC) [C50.919] Performed By: #### S ####[facility] LABCLIA [id number] [place] [id number] [place] DIAGNOSIS COMMENT Normal [facility] Comment on above: Order Comment: Speci men Type: TISSUE SPECIMENOrdering Facility: [facility] Address: [address] [place] [address] Result Comment: Hist ologic sections of the grossly-identified 16 mm x 16 mm tumor bed demonstrates residual invasive and in-situ carcinoma. Tumor bed dimension #1: 16 mm Tumor bed dimension #2: 16 mm Invasive tumor cellularity: 50% Ductal carcinoma in situ cellularity: 5% [facility] 07/01/23 Performed By: #### S ####[facility] LABCLIA [id number] [place] [address] [place] FINAL DIAGNOSIS Normal [facility] Comment on above: Order Comment: Speci men Type: TISSUE SPECIMENOrdering Facility: [facility] Address: [address] [place] [address] Result Comment: Left breast, mastectomy: - Residual invasive ductal carcinoma, Lorraine grade III, measuring 16 mm in greatest dimension (please see synoptic report and comment). 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 - Microcalcifications in invasive carcinoma, DCIS, changes consistent with prior procedure, and au of blood vessels. - Biopsy site changes, biopsy clip (x1), and changes consistent with prior procedure identified. [facility] 07/01/23 Performed By: #### S ####[facility] LABCLIA [id number] [address] [place] FINAL PERFORMING LAB Normal [facility] Comment on above: Order Comment: Speci men Type: TISSUE SPECIMENOrdering Facility: [facility] Address: [address] [place] [address] Result Comment: Diag nostic interpretation performed at [facility], [address] [place] [address] CLIA# [id number] Speech Pathology Teacher: Corby Schaefer M.D. Performed By: #### S ####[facility] LABCLIA [id number] [address] [place] GROSS DESCRIPTION Normal [facility] Comment on above: Order Comment: Speci men Type: TISSUE SPECIMENOrdering Facility: [facility] Address: [address], [place] [address] Result Comment: A. B REAST MASTECTOMY LEFT Received in formalin labeled "left mastectomy" is an oriented left mastectomy specimen weighing 725 g and measuring 19.5 cm superior to inferior, 21.0 cm medial-lateral and 5.5 cm anterior to posterior. The specimen is oriented per the requisition with short stitch superior long stitch lateral. There are no segments of muscle. There is an excision of skin on the radial margin measuring 21.0 cm medial lateral and 8.3 cm superior to inferior. The skin surface displays a retracted hutchinson scar like area on the inferior aspect of the skin measuring 4.2 cm in length and 0.5 cm in width. It extends within 2.6 cm of the inferior skin margin. The unremarkable nipple and areola complex measure 2.8 cm in greatest dimension. The everted nipple measures 1.0 x 1.0 x 0.4 cm. The specimen is imaged to reveal 1 biopsy clip. The superior radial margin is inked blue the inferior radial margin is inked green and the deep margin is inked black. The breast is serially sectioned to reveal 2 areas of interest. Area of interest #1: Presents as a cavity with white fibrous borders consistent with a previous surgical site measuring 2.4 cm medial-lateral, 2.0 cm superior to inferior and 4.1 cm anterior to posterior. This area appears to extend to the deep margin and 3.0 cm of the inferior radial margin it corresponds to the retracted scarlike area on the surface of the skin. It spans the lower outer and lower inner quadrant. It is at approximately 6 o'clock position. It is located 1.1 cm from the nipple. Area of interest #2: Presents is a white-yellow firm slightly stellate mass with a coil clip measuring 1.5 cm medial-lateral, 1.6 cm superior to inferior and 1.6 cm anterior to posterior. The mass extends within 2.8 cm of the deep margin, 4.1 cm of the inferior radial margin. The mass abuts the first area of interest. The mass also corresponds to the overlying scarlike area. It is at approximately the 5 o'clock position in the lower inner and lower outer quadrant. It is 0.6 cm from the nipple. The first and second area of interest appear contiguous. The first and second area of interest combined to involve an area measuring 4.5 cm in greatest dimension. The remaining breast parenchyma is soft adipose tissue with dense fibrous tissue (approximately 25%). Time removed from patient is 11:09 AM on 06/28/2023. Time placed in formalin is 11:42 AM on 06/28/2023. Vat Washer sections are submitted as follows: A1 section lateral to first area of interest A2-A4 outside sales representative section of first area of interest and longest linear dimension from anterior to posterior (A2 with deep margin) A5 radial margin closest to first area of interest A6 section of first area of interest with second area of interest abutting first A7-A8 section of longest linear dimension of second area of interest from anterior to posterior with skin (A7 with coil clip) A9-A10 outside sales representative sections of second area of interest A11 section medial to second area of interest A12 deep margin closest to second area of interest A13 section with inferior radial margin closest to second area of interest A14 section of upper inner quadrant nonmarginal A15 section of upper outer quadrant nonmarginal A16 section of lower outer quadrant nonmarginal A17 section of lower inner quadrant nonmarginal A18 central zone nonmarginal A19 nipple KVB June 28, 2023 3:26 PM Gross examination performed at [facility], [address] [place] [address] Performed By: #### S ####[facility] LABCLIA [id number] [place] [address] [place] SYNOPTIC REPORT Normal [facility] Comment on above: Order Comment: Speci men Type: TISSUE SPECIMENOrdering Facility: [facility] Address: [address] [place] [address] Result Comment: INVA SIVE CARCINOMA OF THE BREAST: Resection INVASIVE CARCINOMA OF THE BREAST: RESECTION - All Specimens 8th Edition - Protocol posted: 02/23/2023 SPECIMEN Procedure: Total mastectomy Specimen Laterality: Left TUMOR Histologic Type: Invasive carcinoma of no special type (ductal) Histologic Grade ([place] Histologic Score): Glandular (Acinar) / Tubular Differentiation: Score 3 Nuclear Pleomorphism: Score 3 Mitotic Rate: Score 3 Overall Grade: Grade 3 (scores of 8 or 9) Tumor Size: Greatest dimension of largest invasive focus (Millimeters): 16 mm Tumor Focality: Single focus of invasive carcinoma Ductal Carcinoma In Situ (DCIS): Present Size (Extent) of DCIS: Estimated size (extent) of DCIS is at least (Millimeters): 4 mm Architectural Patterns: Solid Nuclear Grade: Grade III (high) Necrosis: Present, central (expansive "comedo" necrosis) Lobular Carcinoma In Situ (LCIS): Not identified Lymphatic and / or Vascular Invasion: Not identified Dermal Lymphatic and / or Vascular Invasion: Not identified Microcalcifications: Present in DCIS Microcalcifications: Present in invasive carcinoma Microcalcifications: Present in non-neoplastic tissue Treatment Effect in the Breast: Probable or definite response to presurgical therapy in the invasive carcinoma MARGINS Margin Status for Invasive Carcinoma: All margins negative for invasive carcinoma Distance from Invasive Carcinoma to Closest Margin: Greater than: 2 mm Margin Status for DCIS: All margins negative for DCIS Distance from DCIS to Closest Margin: Greater than: 2 mm REGIONAL LYMPH NODES Regional Lymph Node Status: Not applicable (no regional lymph nodes submitted or found) pTNM CLASSIFICATION (AJCC 8th Edition) Reporting of pT, pN, and (when applicable) pM categories is based on information available to the pathologist at the time the report is issued. As per the AJCC (Chapter 1, 8th Ed.) it is the managing physician???s responsibility to establish the final pathologic stage based upon all pertinent information, including but potentially not limited to this pathology report. Modified Classification: y pT Category: pT1c pN Category: pN not assigned (no nodes submitted or found) Breast Biomarker Testing Performed on Previous Biopsy: Estrogen Receptor (ER) Status: Positive (greater than 10% of cells demonstrate nuclear positivity) Percentage of Cells with Nuclear Positivity: 40 % Breast Biomarker Testing Performed on Previous Biopsy: Progesterone Receptor (PgR) Status: Positive Percentage of Cells with Nuclear Positivity: 1-5 % Breast Biomarker Testing Performed on Previous Biopsy: HER2 (by immunohistochemistry): Positive (Score 3+) Percentage of Cells with Uniform Intense Complete Membrane Stainin % Testing Performed on Performed By: #### S ####[facility] LABCLIA [id number] [place] [id number] [place] CNOVon 06-03-2023 CNOV Office Visit (GENSF) DANETTE BISHOP ([id number]) 1945 F Date Time Provider Department 06/03/23 3:30 PM FREDA MATOS During your visit today, we recorded the following information about you: Freda Matos DO 06/09/2023 6:41 AM Signed Called and left a voice mail message Allergies As of Date: 06/03/2023 Noted Allergy Reaction ADHESIVE TAPE-SILICONES 10/27/2020 2 - Rash SHELLFISH DERIVED 08/08/2020 7 - Swelling Date Reviewed: 05/20/2023 Reviewed by: Guzman Heck RN - Fully Assessed Primary Visit Diagnosis:Local recurrence of cancer of left breast (HCC) [C50.912] Prescriptions as of 06/09/2023 - letrozole (FEMARA) 2.5 mg tablet Take 1 tablet by mouth once daily. - HYDROcodone-acetaminophen (NORCO) 5-325 mg per tablet Take 1-2 tablets by mouth every 6 hours as needed for pain for up to 5 days. - calcium carbonate (CALCIUM 500 ORAL) Take 2 tablets by mouth once daily. - Ascorbic Acid (VITAMIN C) 1,000 mg tablet Take 1,000 mg by mouth once daily. - FLUoxetine (PROZAC) 40 mg capsule Take 1 capsule by mouth once daily. - multivitamin tablet Take 1 tablet by mouth once daily. - levothyroxine (SYNTHROID) 112 mcg tablet Take 112 mcg by mouth once daily. - promethazine (PHENERGAN) 25 mg tablet Take 1 tablet by mouth every 6 hours as needed. FOR NAUSEA - liothyronine (CYTOMEL) 5 mcg tablet Take 5 mcg by mouth once daily. - lisinopril (ZESTRIL, PRINIVIL) 20 mg tablet Take 20 mg by mouth once daily. - esomeprazole (NEXIUM) 40 mg capsule Take 40 mg by mouth DAILY (6 AM). - ACETAMINOPHEN (TYLENOL ORAL) Take by mouth. - zolpidem (AMBIEN) 10 mg tab Take 10 mg by mouth at bedtime as needed. - ALPRAZolam (XANAX) 0.5 mg tablet Take 0.5 mg by mouth at bedtime as needed. - clopidogrel (PLAVIX) 75 mg tablet Take 75 mg by mouth once daily. Facility-Administered Medications as of 06/09/2023 - perflutren lipid microspheres 1.3 mL in NaCl (PF) 0.9% 10 mL injection (DEFINITY) - sodium chloride 0.9 % (flush) 10 mL (BD POSIFLUSH) - perflutren lipid microspheres 1.3 mL in NaCl (PF) 0.9% 10 mL injection (DEFINITY) - sodium chloride 0.9 % (flush) 10 mL (BD POSIFLUSH) - perflutren lipid microspheres 1.3 mL in NaCl (PF) 0.9% 10 mL injection (DEFINITY) - sodium chloride 0.9 % (flush) 10 mL (BD POSIFLUSH) Problem List As Of Date 06/03/2023 Noted Resolved 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) [C*08/29/2020 HER2-positive carcinoma of breast (HCC) [C50.91*08/29/2020 Local recurrence of cancer of left breast (HCC)*04/26/2022 Stage IV breast cancer in female (HCC) [C50.919]04/26/2022 Encounter Status:Closed by FREDA MATOS on 06/09/23 [facility] Basophil percentageOrdered B y: Tami Chang on 05-23-2023 Amylase [Catalytic activity/Vol] 37 U/L 25-115 [facility] Bilirubin [Mass/Vol] 0.80 mg/dL 0.20-1.00 [facility] Comment on above: For patients on eltr ombopag therapy, use of Dimension [place] TBIL is not recommended. Protein [Mass/Vol] 7.3 g/dL 6.4-8.2 [facility] Direct bilirubinOrdered By: Tami Chang on 05-23-2023 Bilirubin.direct [Mass/Vol] 0.19 mg/dL 0.00-0.30 [facility] Laboratory - Chemistry and C hemistry - challengeOrdered By: Tami Chang on 05-23-2023 ALP [Catalytic activity/Vol] 75 U/L 45-117 [facility] ALT [Catalytic activity/Vol] 26 U/L 13-56 [facility] Globulin (S) [Mass/Vol] 3.5 g/dL 2.2-4.2 [facility] Lipase [Catalytic activity/Vol] 23 U/L 13-75 [facility] [facility] Comment on above: Please note:LIPASE r evised reference range effective 22. New Lipase methodology. Expected to produce lower values than the previous assay method. NEW Reference Range: 13 - 75 U/L Serum or plasma albumin agnieszka urement (mass/volume)Ordered By: Tami Chang on 05-23-2023 Albumin [Mass/Vol] 3.8 g/dL 3.2-5.0 [facility] Thin prep Papanicolaou smear with manual screeningOrdered By: Tami Chagn on 05-23-2023 Thin prep Papanicolaou smear with manual screening 18 U/L 15-37 [facility] CNPNon 05-20-2023 [facility] Telephone (GENSF) DANETTE BISHOP ([id number]) 1945 F Date Time Provider Department 05/20/23 FREDA MATOS During your visit today, we recorded the following information about you: Kelly Arellano 05/20/2023 1:49 PM Signed Spoke to patient,confirmed her surgery date and appointments related to her procedure with Dr. Matos on 06/28/23 . Allergies As of Date: 05/20/2023 Noted Allergy Reaction ADHESIVE TAPE-SILICONES 10/27/2020 2 - Rash SHELLFISH DERIVED 08/08/2020 7 - Swelling Date Reviewed: 05/20/2023 Reviewed by: Guzman Heck, CRISTINA - Fully Assessed Reason for Visit: Appointment [186] Prescriptions as of 05/20/2023 - letrozole (FEMARA) 2.5 mg tablet Take 1 tablet by mouth once daily. - HYDROcodone-acetaminophen (NORCO) 5-325 mg per tablet Take 1-2 tablets by mouth every 6 hours as needed for pain for up to 5 days. - calcium carbonate (CALCIUM 500 ORAL) Take 2 tablets by mouth once daily. - Ascorbic Acid (VITAMIN C) 1,000 mg tablet Take 1,000 mg by mouth once daily. - FLUoxetine (PROZAC) 40 mg capsule Take 1 capsule by mouth once daily. - multivitamin tablet Take 1 tablet by mouth once daily. - levothyroxine (SYNTHROID) 112 mcg tablet Take 112 mcg by mouth once daily. - promethazine (PHENERGAN) 25 mg tablet Take 1 tablet by mouth every 6 hours as needed. FOR NAUSEA - liothyronine (CYTOMEL) 5 mcg tablet Take 5 mcg by mouth once daily. - lisinopril (ZESTRIL, PRINIVIL) 20 mg tablet Take 20 mg by mouth once daily. - esomeprazole (NEXIUM) 40 mg capsule Take 40 mg by mouth DAILY (6 AM). - ACETAMINOPHEN (TYLENOL ORAL) Take by mouth. - zolpidem (AMBIEN) 10 mg tab Take 10 mg by mouth at bedtime as needed. - ALPRAZolam (XANAX) 0.5 mg tablet Take 0.5 mg by mouth at bedtime as needed. - clopidogrel (PLAVIX) 75 mg tablet Take 75 mg by mouth once daily. Facility-Administered Medications as of 05/20/2023 - perflutren lipid microspheres 1.3 mL in NaCl (PF) 0.9% 10 mL injection (DEFINITY) - sodium chloride 0.9 % (flush) 10 mL (BD POSIFLUSH) - perflutren lipid microspheres 1.3 mL in NaCl (PF) 0.9% 10 mL injection (DEFINITY) - sodium chloride 0.9 % (flush) 10 mL (BD POSIFLUSH) - perflutren lipid microspheres 1.3 mL in NaCl (PF) 0.9% 10 mL injection (DEFINITY) - sodium chloride 0.9 % (flush) 10 mL (BD POSIFLUSH) Problem List As Of Date 05/20/2023 Noted Resolved 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) [C*08/29/2020 HER2-positive carcinoma of breast (HCC) [C50.91*08/29/2020 Local recurrence of cancer of left breast (HCC)*04/26/2022 Stage IV breast cancer in female (HCC) [C50.919]04/26/2022 Encounter Status:Closed by KELLY ARELLANO on 05/20/23 [facility] 05-18-2023 CNPN Telephone (GENSF) DANETTE BISHOP ([id number]) 1945 F Date Time Provider Department 05/18/23 FREDA MATOS During your visit today, we recorded the following information about you: Sandra Zabala 05/18/2023 1:27 PM Signed Patient called- She would like to skip her upcoming phone appointment with Dr Matos and schedule the surgery. She would like the surgery soon. Thank you Kelly Aguayo LPN 05/18/2023 1:56 PM Signed Returned pt call, informed pt she will need to talk with via phone before she can schedule surgery. Pt verbalize understanding and would like to move the phone call date up. She completed her MRI and the results are back. I will relay the message to and will call her when I have answer. She thanked me for calling. Kelly Aguayo LPN Allergies As of Date: 05/18/2023 Noted Allergy Reaction ADHESIVE TAPE-SILICONES 10/27/2020 2 - Rash SHELLFISH DERIVED 08/08/2020 7 - Swelling Date Reviewed: 05/18/2023 Reviewed by: Christiano Centeno DO - Fully Assessed Reason for Visit: Appointment [186] Patient Question [4790] Prescriptions as of 05/18/2023 - letrozole (FEMARA) 2.5 mg tablet Take 1 tablet by mouth once daily. - HYDROcodone-acetaminophen (NORCO) 5-325 mg per tablet Take 1-2 tablets by mouth every 6 hours as needed for pain for up to 5 days. - calcium carbonate (CALCIUM 500 ORAL) Take 2 tablets by mouth once daily. - Ascorbic Acid (VITAMIN C) 1,000 mg tablet Take 1,000 mg by mouth once daily. - FLUoxetine (PROZAC) 40 mg capsule Take 1 capsule by mouth once daily. - multivitamin tablet Take 1 tablet by mouth once daily. - levothyroxine (SYNTHROID) 112 mcg tablet Take 112 mcg by mouth once daily. - promethazine (PHENERGAN) 25 mg tablet Take 1 tablet by mouth every 6 hours as needed. FOR NAUSEA - liothyronine (CYTOMEL) 5 mcg tablet Take 5 mcg by mouth once daily. - lisinopril (ZESTRIL, PRINIVIL) 20 mg tablet Take 20 mg by mouth once daily. - esomeprazole (NEXIUM) 40 mg capsule Take 40 mg by mouth DAILY (6 AM). - ACETAMINOPHEN (TYLENOL ORAL) Take by mouth. - zolpidem (AMBIEN) 10 mg tab Take 10 mg by mouth at bedtime as needed. - ALPRAZolam (XANAX) 0.5 mg tablet Take 0.5 mg by mouth at bedtime as needed. - clopidogrel (PLAVIX) 75 mg tablet Take 75 mg by mouth once daily. Facility-Administered Medications as of 05/18/2023 - perflutren lipid microspheres 1.3 mL in NaCl (PF) 0.9% 10 mL injection (DEFINITY) - sodium chloride 0.9 % (flush) 10 mL (BD POSIFLUSH) - perflutren lipid microspheres 1.3 mL in NaCl (PF) 0.9% 10 mL injection (DEFINITY) - sodium chloride 0.9 % (flush) 10 mL (BD POSIFLUSH) - perflutren lipid microspheres 1.3 mL in NaCl (PF) 0.9% 10 mL injection (DEFINITY) - sodium chloride 0.9 % (flush) 10 mL (BD POSIFLUSH) Problem List As Of Date 05/18/2023 Noted Resolved 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) [C*08/29/2020 HER2-positive carcinoma of breast (HCC) [C50.91*08/29/2020 Local recurrence of cancer of left breast (HCC)*04/26/2022 Stage IV breast cancer in female (HCC) [C50.919]04/26/2022 Encounter Status:Closed by SANDRA ZABALA on 05/18/23 Normal [facility] CBC W Auto Differential pane l (Bld)on 05-17-2023 Basophils (Bld) [#/Vol] 0.08 10*3/uL <0.11 k/uL [facility] Basophils/100 WBC (Bld) 1.2 % [facility] Differential cell count method Nom (Bld) Auto [facility] Eosinophils (Bld) [#/Vol] 0.16 10*3/uL <0.46 k/uL [facility] Eosinophils/100 WBC (Bld) 2.4 % [facility] Erythrocyte distribution width (RBC) [Ratio] 15.1 % High 11.5 - 15.0 % [facility] Hematocrit (Bld) [Volume fraction] 37.1 % 36.0 - 46.0 % [facility] Hemoglobin (Bld) [Mass/Vol] 12.3 g/dL 11.5 - 15.5 g/dL [facility] Immature granulocytes (Bld) [#/Vol] <0.10 k/uL [facility] Immature granulocytes/100 WBC (Bld) 0.1 % [facility] Lymphocytes (Bld) [#/Vol] 2.08 10*3/uL 1.00 - 4.00 k/uL [facility] Lymphocytes/100 WBC (Bld) 31.2 % [facility] MCH (RBC) [Entitic mass] 29.6 pg 26.0 - 34.0 pg [facility] MCHC (RBC) [Mass/Vol] 33.2 g/dL 30.5 - 36.0 g/dL [facility] MCV (RBC) [Entitic vol] 89.2 fL 80.0 - 100.0 fL [facility] Monocytes (Bld) [#/Vol] 0.39 10*3/uL <0.87 k/uL [facility] Monocytes/100 WBC (Bld) 5.8 % [facility] Neutrophils (Bld) [#/Vol] 3.95 10*3/uL 1.45 - 7.50 k/uL [facility] Neutrophils/100 WBC (Bld) 59.3 % [facility] Nucleated RBC (Bld) [#/Vol] <0.01 k/uL [facility] Nucleated RBC/100 WBC (Bld) [Ratio] 0.0 /100 WBC [facility] Platelet mean volume (Bld) [Entitic vol] 9.9 fL 9.0 - 12.7 fL [facility] Platelets (Bld) [#/Vol] 345 10*3/uL 150 - 400 k/uL [facility] RBC (Bld) [#/Vol] 4.16 10*6/uL 3.90 - 5.20 m/uL [facility] WBC (Bld) [#/Vol] 6.67 10*3/uL 3.70 - 11.00 k/uL [facility] Comprehensive metabolic 2000 panelon 05-17-2023 Albumin [Mass/Vol] 4.2 g/dL 3.9 - 4.9 g/dL [facility] ALP [Catalytic activity/Vol] 77 U/L 34 - 123 U/L [facility] ALT [Catalytic activity/Vol] 16 U/L 7 - 38 U/L [facility] Anion gap [Moles/Vol] 9 mmol/L 9 - 18 mmol/L [facility] AST [Catalytic activity/Vol] 14 U/L 13 - 35 U/L [facility] Bilirubin [Mass/Vol] 0.8 mg/dL 0.2 - 1 .3 mg/dL [facility] Calcium [Mass/Vol] 9.3 mg/dL 8.5 - 10. 2 mg/dL [facility] Chloride [Moles/Vol] 98 mmol/L 97 - 10 5 mmol/L [facility] CO2 [Moles/Vol] 26 mmol/L 22 - 30 mmol/L [facility] Creatinine [Mass/Vol] 0.71 mg/dL 0.58 - 0.96 mg/dL [facility] Estimated Glomerular Filtration Rate 87 mL/min/1.73m >=60 mL/min/1.7 3m [facility] Glucose [Mass/Vol] 126 mg/dL High 74 - 99 mg/dL [facility] Potassium [Moles/Vol] 4.1 mmol/L 3.7 - 5.1 mmol/L [facility] Protein [Mass/Vol] 6.7 g/dL 6.3 - 8.0 g/dL [facility] Sodium [Moles/Vol] 133 mmol/L Low 136 - 144 mmol/L [facility] Urea nitrogen [Mass/Vol] 14 mg/dL 7 - 21 mg/dL [facility] MRI ABDOMEN WO/W IVCONon [facility] CBC W Auto Differential pane l (Bld)on 04-29-2023 Basophils (Bld) [#/Vol] 0.08 10*3/uL <0.11 k/uL [facility] Basophils/100 WBC (Bld) 1.4 % [facility] Differential cell count method Nom (Bld) Auto [facility] Eosinophils (Bld) [#/Vol] 0.15 10*3/uL <0.46 k/uL [facility] Eosinophils/100 WBC (Bld) 2.7 % [facility] Erythrocyte distribution width (RBC) [Ratio] 15.6 % High 11.5 - 15.0 % [facility] Hematocrit (Bld) [Volume fraction] 33.4 % Low 36.0 - 46.0 % [facility] Hemoglobin (Bld) [Mass/Vol] 11.1 g/dL Low 11.5 - 15.5 g/dL [facility] Immature granulocytes (Bld) [#/Vol] <0.10 k/uL [facility] Immature granulocytes/100 WBC (Bld) 0.2 % [facility] Lymphocytes (Bld) [#/Vol] 2.22 10*3/uL 1.00 - 4.00 k/uL [facility] Lymphocytes/100 WBC (Bld) 39.4 % [facility] MCH (RBC) [Entitic mass] 29.8 pg 26.0 - 34.0 pg [facility] MCHC (RBC) [Mass/Vol] 33.2 g/dL 30.5 - 36.0 g/dL [facility] MCV (RBC) [Entitic vol] 89.8 fL 80.0 - 100.0 fL [facility] Monocytes (Bld) [#/Vol] 0.49 10*3/uL <0.87 k/uL [facility] Monocytes/100 WBC (Bld) 8.7 % [facility] Neutrophils (Bld) [#/Vol] 2.68 10*3/uL 1.45 - 7.50 k/uL [facility] Neutrophils/100 WBC (Bld) 47.6 % [facility] Nucleated RBC (Bld) [#/Vol] <0.01 k/uL [facility] Nucleated RBC/100 WBC (Bld) [Ratio] 0.0 /100 WBC [facility] Platelet mean volume (Bld) [Entitic vol] 9.5 fL 9.0 - 12.7 fL [facility] Platelets (Bld) [#/Vol] 311 10*3/uL 150 - 400 k/uL [facility] RBC (Bld) [#/Vol] 3.72 10*6/uL Low 3.90 - 5.20 m/uL [facility] WBC (Bld) [#/Vol] 5.63 10*3/uL 3.70 - 11.00 k/uL [facility] Comprehensive metabolic 2000 panelon 04-29-2023 Albumin [Mass/Vol] 4.0 g/dL 3.9 - 4.9 g/dL [facility] ALP [Catalytic activity/Vol] 75 U/L 34 - 123 U/L [facility] ALT [Catalytic activity/Vol] 14 U/L 7 - 38 U/L [facility] Anion gap [Moles/Vol] 7 mmol/L Low 9 - 18 mmol/L [facility] AST [Catalytic activity/Vol] 14 U/L 13 - 35 U/L [facility] Bilirubin [Mass/Vol] 0.3 mg/dL 0.2 - 1 .3 mg/dL [facility] Calcium [Mass/Vol] 8.9 mg/dL 8.5 - 10. 2 mg/dL [facility] Chloride [Moles/Vol] 102 mmol/L 97 - 10 5 mmol/L [facility] CO2 [Moles/Vol] 25 mmol/L 22 - 30 mmol/L [facility] Creatinine [Mass/Vol] 0.67 mg/dL 0.58 - 0.96 mg/dL [facility] Estimated Glomerular Filtration Rate 90 mL/min/1.73m >=60 mL/min/1.7 3m [facility] Glucose [Mass/Vol] 121 mg/dL High 74 - 99 mg/dL [facility] Potassium [Moles/Vol] 4.2 mmol/L 3.7 - 5.1 mmol/L [facility] Protein [Mass/Vol] 6.3 g/dL 6.3 - 8.0 g/dL [facility] Sodium [Moles/Vol] 134 mmol/L Low 136 - 144 mmol/L [facility] Urea nitrogen [Mass/Vol] 18 mg/dL 7 - 21 mg/dL [facility] CBC W Auto Differential pane l (Bld)on 03-18-2023 Basophils (Bld) [#/Vol] 0.06 10*3/uL <0.11 k/uL [facility] Basophils/100 WBC (Bld) 1.0 % [facility] Differential cell count method Nom (Bld) Auto [facility] Eosinophils (Bld) [#/Vol] 0.15 10*3/uL <0.46 k/uL [facility] Eosinophils/100 WBC (Bld) 2.4 % [facility] Erythrocyte distribution width (RBC) [Ratio] 15.4 % High 11.5 - 15.0 % [facility] Hematocrit (Bld) [Volume fraction] 34.1 % Low 36.0 - 46.0 % [facility] Hemoglobin (Bld) [Mass/Vol] 11.8 g/dL 11.5 - 15.5 g/dL [facility] Immature granulocytes (Bld) [#/Vol] <0.10 k/uL [facility] Immature granulocytes/100 WBC (Bld) 0.2 % [facility] Lymphocytes (Bld) [#/Vol] 1.45 10*3/uL 1.00 - 4.00 k/uL [facility] Lymphocytes/100 WBC (Bld) 23.5 % [facility] MCH (RBC) [Entitic mass] 29.9 pg 26.0 - 34.0 pg [facility] MCHC (RBC) [Mass/Vol] 34.6 g/dL 30.5 - 36.0 g/dL [facility] MCV (RBC) [Entitic vol] 86.5 fL 80.0 - 100.0 fL [facility] Monocytes (Bld) [#/Vol] 0.32 10*3/uL <0.87 k/uL [facility] Monocytes/100 WBC (Bld) 5.2 % [facility] Neutrophils (Bld) [#/Vol] 4.19 10*3/uL 1.45 - 7.50 k/uL [facility] Neutrophils/100 WBC (Bld) 67.7 % [facility] Nucleated RBC (Bld) [#/Vol] <0.01 k/uL [facility] Nucleated RBC/100 WBC (Bld) [Ratio] 0.0 /100 WBC [facility] Platelet mean volume (Bld) [Entitic vol] 9.4 fL 9.0 - 12.7 fL [facility] Platelets (Bld) [#/Vol] 340 10*3/uL 150 - 400 k/uL [facility] RBC (Bld) [#/Vol] 3.94 10*6/uL 3.90 - 5.20 m/uL [facility] WBC (Bld) [#/Vol] 6.18 10*3/uL 3.70 - 11.00 k/uL [facility] Comprehensive metabolic 2000 panelon 03-18-2023 Albumin [Mass/Vol] 3.9 g/dL 3.9 - 4.9 g/dL [facility] ALP [Catalytic activity/Vol] 78 U/L 34 - 123 U/L [facility] ALT [Catalytic activity/Vol] 12 U/L 7 - 38 U/L [facility] Anion gap [Moles/Vol] 6 mmol/L Low 9 - 18 mmol/L [facility] AST [Catalytic activity/Vol] 14 U/L 13 - 35 U/L [facility] Bilirubin [Mass/Vol] 0.4 mg/dL 0.2 - 1 .3 mg/dL [facility] Calcium [Mass/Vol] 8.4 mg/dL Low 8.5 - 10. 2 mg/dL [facility] Chloride [Moles/Vol] 101 mmol/L 97 - 10 5 mmol/L [facility] CO2 [Moles/Vol] 24 mmol/L 22 - 30 mmol/L [facility] Creatinine [Mass/Vol] 0.62 mg/dL 0.58 - 0.96 mg/dL [facility] Estimated Glomerular Filtration Rate 92 mL/min/1.73m >=60 mL/min/1.7 3m [facility] Glucose [Mass/Vol] 90 mg/dL 74 - 99 mg/dL [facility] Potassium [Moles/Vol] 4.2 mmol/L 3.7 - 5.1 mmol/L [facility] Protein [Mass/Vol] 6.1 g/dL Low 6.3 - 8.0 g/dL [facility] Sodium [Moles/Vol] 131 mmol/L Low 136 - 144 mmol/L [facility] Urea nitrogen [Mass/Vol] 12 mg/dL 7 - 21 mg/dL [facility] CHHAYA DIAG W NAVNEET BILATERALon 03-16-2023 [facility] US BREAST LTD LEFTon 023 [facility] CBC W Auto Differential pane l (Bld)on 02-23-2023 Basophils (Bld) [#/Vol] 0.08 10*3/uL <0.11 k/uL [facility] Basophils/100 WBC (Bld) 1.2 % [facility] Differential cell count method Nom (Bld) Auto [facility] Eosinophils (Bld) [#/Vol] 0.09 10*3/uL <0.46 k/uL [facility] Eosinophils/100 WBC (Bld) 1.3 % [facility] Erythrocyte distribution width (RBC) [Ratio] 15.4 % High 11.5 - 15.0 % [facility] Hematocrit (Bld) [Volume fraction] 34.8 % Low 36.0 - 46.0 % [facility] Hemoglobin (Bld) [Mass/Vol] 11.7 g/dL 11.5 - 15.5 g/dL [facility] Immature granulocytes (Bld) [#/Vol] <0.10 k/uL [facility] Immature granulocytes/100 WBC (Bld) 0.3 % [facility] Lymphocytes (Bld) [#/Vol] 1.48 10*3/uL 1.00 - 4.00 k/uL [facility] Lymphocytes/100 WBC (Bld) 21.7 % [facility] MCH (RBC) [Entitic mass] 29.3 pg 26.0 - 34.0 pg [facility] MCHC (RBC) [Mass/Vol] 33.6 g/dL 30.5 - 36.0 g/dL [facility] MCV (RBC) [Entitic vol] 87.2 fL 80.0 - 100.0 fL [facility] Monocytes (Bld) [#/Vol] 0.39 10*3/uL <0.87 k/uL [facility] Monocytes/100 WBC (Bld) 5.7 % [facility] Neutrophils (Bld) [#/Vol] 4.75 10*3/uL 1.45 - 7.50 k/uL [facility] Neutrophils/100 WBC (Bld) 69.8 % [facility] Nucleated RBC (Bld) [#/Vol] <0.01 k/uL [facility] Nucleated RBC/100 WBC (Bld) [Ratio] 0.0 /100 WBC [facility] Platelet mean volume (Bld) [Entitic vol] 9.5 fL 9.0 - 12.7 fL [facility] Platelets (Bld) [#/Vol] 316 10*3/uL 150 - 400 k/uL [facility] RBC (Bld) [#/Vol] 3.99 10*6/uL 3.90 - 5.20 m/uL [facility] WBC (Bld) [#/Vol] 6.81 10*3/uL 3.70 - 11.00 k/uL [facility] Comprehensive metabolic 2000 panelon 02-23-2023 Albumin [Mass/Vol] 4.1 g/dL 3.9 - 4.9 g/dL [facility] ALP [Catalytic activity/Vol] 79 U/L 34 - 123 U/L [facility] ALT [Catalytic activity/Vol] 11 U/L 7 - 38 U/L [facility] Anion gap [Moles/Vol] 11 mmol/L 9 - 18 mmol/L [facility] AST [Catalytic activity/Vol] 13 U/L 13 - 35 U/L [facility] Bilirubin [Mass/Vol] 0.6 mg/dL 0.2 - 1 .3 mg/dL [facility] Calcium [Mass/Vol] 8.7 mg/dL 8.5 - 10. 2 mg/dL [facility] Chloride [Moles/Vol] 102 mmol/L 97 - 10 5 mmol/L [facility] CO2 [Moles/Vol] 23 mmol/L 22 - 30 mmol/L [facility] Creatinine [Mass/Vol] 0.68 mg/dL 0.58 - 0.96 mg/dL [facility] Estimated Glomerular Filtration Rate 90 mL/min/1.73m >=60 mL/min/1.7 3m [facility] Glucose [Mass/Vol] 102 mg/dL High 74 - 99 mg/dL [facility] Potassium [Moles/Vol] 4.1 mmol/L 3.7 - 5.1 mmol/L [facility] Protein [Mass/Vol] 6.5 g/dL 6.3 - 8.0 g/dL [facility] Sodium [Moles/Vol] 136 mmol/L 136 - 144 mmol/L [facility] Urea nitrogen [Mass/Vol] 12 mg/dL 7 - 21 mg/dL [facility] Basophil percentageOrdered B y: Tami Gaticaandrea on 02-14-2023 Cholesterol [Mass/Vol] 188 mg/dL <200 [facility] Comment on above: <200 mg/dL Desirable 200-240 mg/dL Borderline >240 mg/dL High Risk Triglyceride [Mass/Vol] 98 mg/dL <199 [facility] Comment on above: The drugs N-Acetylcy steine and Metamizole may falsely depress this assay.Serum Triglycerides Reference Interval Normal <150 mg/dL Borderline high 150 - 199 mg/dL High 200 - 499 mg/dL Very High > or = 500 mg/dL Laboratory - Chemistry and C hemistry - challengeOrdered By: Tami Chang on 02-14-2023 T4 [Mass/Vol] 10.0 ug/dL 4.8-13.9 [facility] No Panel InformationOrdered By: Tami Chang on 02-14-2023 Thyroid Stimulating Hormone (TSH) 0.66 uIU/mL 0.358-3.74 [facility] Serum or plasma cholesterol in HDL measurement (mass/volume)Ordered By: Tami Chang on 02-14-2023 Cholesterol in HDL [Mass/Vol] 70 mg/dL >40 [facility] Comment on above: The drugs N-Acetylcy steine and Metamizole may falsely depress this assay. Reference Range HDL <40 mg/dL Low HDL Cholesterol HDL >or= 60 mg/dL High HDL Cholesterol Serum or plasma cholesterol in VLDL measurement (mass/volume)Ordered By: Tami Chang on 02-14-2023 Cholesterol in VLDL [Mass/Vol] 20 mg/dL 5-40 [facility] Serum or plasma low density lipoprotein (LDL) cholesterol measurement (mass/volume)Ordered By: Tami Chang on 02-14-2023 Cholesterol in LDL [Mass/Vol] 98 mg/dL 0-130 [facility] CBC W Auto Differential pane l (Bld)on 02-03-2023 Basophils (Bld) [#/Vol] 0.07 10*3/uL <0.11 k/uL [facility] Basophils/100 WBC (Bld) 1.4 % [facility] Differential cell count method Nom (Bld) Auto [facility] Eosinophils (Bld) [#/Vol] 0.17 10*3/uL <0.46 k/uL [facility] Eosinophils/100 WBC (Bld) 3.4 % [facility] Erythrocyte distribution width (RBC) [Ratio] 15.0 % 11.5 - 15.0 % [facility] Hematocrit (Bld) [Volume fraction] 35.1 % Low 36.0 - 46.0 % [facility] Hemoglobin (Bld) [Mass/Vol] 11.7 g/dL 11.5 - 15.5 g/dL [facility] Immature granulocytes (Bld) [#/Vol] <0.10 k/uL [facility] Immature granulocytes/100 WBC (Bld) 0.2 % [facility] Lymphocytes (Bld) [#/Vol] 1.66 10*3/uL 1.00 - 4.00 k/uL [facility] Lymphocytes/100 WBC (Bld) 33.6 % [facility] MCH (RBC) [Entitic mass] 28.7 pg 26.0 - 34.0 pg [facility] MCHC (RBC) [Mass/Vol] 33.3 g/dL 30.5 - 36.0 g/dL [facility] MCV (RBC) [Entitic vol] 86.2 fL 80.0 - 100.0 fL [facility] Monocytes (Bld) [#/Vol] 0.34 10*3/uL <0.87 k/uL [facility] Monocytes/100 WBC (Bld) 6.9 % [facility] Neutrophils (Bld) [#/Vol] 2.69 10*3/uL 1.45 - 7.50 k/uL [facility] Neutrophils/100 WBC (Bld) 54.5 % [facility] Nucleated RBC (Bld) [#/Vol] <0.01 k/uL [facility] Nucleated RBC/100 WBC (Bld) [Ratio] 0.0 /100 WBC [facility] Platelet mean volume (Bld) [Entitic vol] 9.1 fL 9.0 - 12.7 fL [facility] Platelets (Bld) [#/Vol] 351 10*3/uL 150 - 400 k/uL [facility] RBC (Bld) [#/Vol] 4.07 10*6/uL 3.90 - 5.20 m/uL [facility] WBC (Bld) [#/Vol] 4.94 10*3/uL 3.70 - 11.00 k/uL [facility] Comprehensive metabolic 2000 panelon 02-03-2023 Albumin [Mass/Vol] 4.1 g/dL 3.9 - 4.9 g/dL [facility] ALP [Catalytic activity/Vol] 82 U/L 34 - 123 U/L [facility] ALT [Catalytic activity/Vol] 13 U/L 7 - 38 U/L [facility] Anion gap [Moles/Vol] 8 mmol/L Low 9 - 18 mmol/L [facility] AST [Catalytic activity/Vol] 14 U/L 13 - 35 U/L [facility] Bilirubin [Mass/Vol] 0.6 mg/dL 0.2 - 1 .3 mg/dL [facility] Calcium [Mass/Vol] 9.4 mg/dL 8.5 - 10. 2 mg/dL [facility] Chloride [Moles/Vol] 100 mmol/L 97 - 10 5 mmol/L [facility] CO2 [Moles/Vol] 25 mmol/L 22 - 30 mmol/L [facility] Creatinine [Mass/Vol] 0.69 mg/dL 0.58 - 0.96 mg/dL [facility] Estimated Glomerular Filtration Rate 90 mL/min/1.73m >=60 mL/min/1.7 3m [facility] Glucose [Mass/Vol] 92 mg/dL 74 - 99 mg/dL [facility] Potassium [Moles/Vol] 4.4 mmol/L 3.7 - 5.1 mmol/L [facility] Protein [Mass/Vol] 6.6 g/dL 6.3 - 8.0 g/dL [facility] Sodium [Moles/Vol] 133 mmol/L Low 136 - 144 mmol/L [facility] Urea nitrogen [Mass/Vol] 14 mg/dL 7 - 21 mg/dL [facility] Basophil percentageOrdered B y: Ted Lynch on 01-24-2023 Basophil percentage 0 SEEN /hpf 0-5 [facility] Bilirubin Test strip Ql (U)O rdered By: Ted Lynch on 01-24-2023 Bilirubin Ql (U) Negative Negative [facility] Culture, urineOrdered By: Mike Lynch on 01-24-2023 Bacteria identified Cx Nom (U) Culture exhibits no growth. [facility] Ketones Test strip Ql (U)Ord ered By: Ted Lynch on 01-24-2023 Ketones Ql (U) Negative Negative [facility] Mucus LM Ql (Urine sed)Order ed By: Ted Lynch on 01-24-2023 Mucus Ql (Urine sed) 0 SEEN /hpf [facility] Nitrite Test strip Ql (U)Ord ered By: Ted Lynch on 01-24-2023 Nitrite Ql (U) Negative Negative [facility] Protein Test strip Ql (U)Ord ered By: Ted Lynch on 01-24-2023 Protein Ql (U) Negative Negative [facility] [facility] Squamous epithelial cells de tection in urine sediment by light microscopyOrdered By: Ted Lynch on 01-24-2023 Epithelial cells.squamous LM Ql (Urine sed) 0 SEEN /hpf 5-10 [facility] Urine blood detectionOrdered By: Ted Lynch on 01-24-2023 RBC Ql (U) Negative Negative [facility] RBC Ql (U) 0 SEEN /hpf 0-5 [facility] Urine clarityOrdered By: Cherri Lynch on 01-24-2023 Clarity (U) Clear Clear [facility] Urine color determinationOrd ered By: Ted Lynch on 01-24-2023 Color (U) Yellow Yellow [facility] Urine glucose detectionOrder ed By: Ted Lynch on 01-24-2023 Glucose Ql (U) Normal mg/dl Normal [facility] Urine leukocyte esterase det ection by dipstickOrdered By: Ted Lynch on 01-24-2023 Leukocyte esterase Test strip Ql (U) 25 /ul Negative [facility] Urine pHOrdered By: Purnima Lynch on 01-24-2023 pH (U) 8.0 [pH] 5.0 - 8.0 [facility] Urine sediment bacteria coun t by microscopy (number/high power field)Ordered By: Ted Lynch on 01-24-2023 Bacteria LM.HPF (Urine sed) [#/Area] 0 /[HPF] None Seen [facility] Urine specific gravity measu rementOrdered By: Ted Lynch on 01-24-2023 Specific gravity (U) [Rel density] 1.015 1.002-1.[address] [facility] Urobilinogen Auto test strip Ql (U)Ordered By: Ted Lynch on 01-24-2023 Urobilinogen Ql (U) Normal mg/dl Normal [facility] MRI ABDOMEN WO/W IVCONon [facility] Basophil percentageOrdered B y: Khoi Harp on 01-14-2023 Basophil percentage 0-5 SEEN /hpf 0-5 [facility] Bilirubin Test strip Ql (U)O rdered By: Khoi Harp on 01-14-2023 Bilirubin Ql (U) Negative Negative [facility] Culture, urineOrdered By: Lexi Shelton on 01-14-2023 Bacteria identified Cx Nom (U) Positive [facility] Ketones Test strip Ql (U)Ord ered By: Khoi Harp on 01-14-2023 Ketones Ql (U) Negative Negative [facility] Mucus LM Ql (Urine sed)Order ed By: Khoi Harp on 01-14-2023 Mucus Ql (Urine sed) 0 SEEN /hpf [facility] Nitrite Test strip Ql (U)Ord ered By: Khoi Harp on 01-14-2023 Nitrite Ql (U) Negative Negative [facility] Protein Test strip Ql (U)Ord ered By: Khoi Harp on 01-14-2023 Protein Ql (U) 15 mg/dl Negative [facility] Squamous epithelial cells de tection in urine sediment by light microscopyOrdered By: Khoi Harp on 01-14-2023 Epithelial cells.squamous LM Ql (Urine sed) 0-5 SEEN /hpf 5-10 [facility] Urine blood detectionOrdered By: Khoi Harp on 01-14-2023 RBC Ql (U) 10 /ul Negative [facility] RBC Ql (U) 0-5 SEEN /hpf 0-5 [facility] Urine clarityOrdered By: Valentino Harp on 01-14-2023 Clarity (U) Clear Clear [facility] Urine color determinationOrd ered By: Khoi Harp on 01-14-2023 Color (U) Yellow Yellow [facility] Urine glucose detectionOrder ed By: Khoi Harp on 01-14-2023 Glucose Ql (U) Normal mg/dl Normal [facility] Urine leukocyte esterase det ection by dipstickOrdered By: Khoi Harp on 01-14-2023 Leukocyte esterase Test strip Ql (U) 25 /ul Negative [facility] Urine pHOrdered By: Khoi beyer on 01-14-2023 pH (U) 6.0 [pH] 5.0 - 8.0 [facility] Urine sediment bacteria coun t by microscopy (number/high power field)Ordered By: Khoi Harp on 01-14-2023 Bacteria LM.HPF (Urine sed) [#/Area] 0 /[HPF] None Seen [facility] Urine specific gravity measu rementOrdered By: Khoi Harp on 01-14-2023 Specific gravity (U) [Rel density] 1.015 1.002-1.[address] [facility] Urobilinogen Auto test strip Ql (U)Ordered By: Khoi Harp on 01-14-2023 Urobilinogen Ql (U) Normal mg/dl Normal [facility] CBC W Auto Differential pane l (Bld)on 12-23-2022 Basophils (Bld) [#/Vol] 0.08 10*3/uL <0.11 k/uL [facility] Basophils/100 WBC (Bld) 1.5 % [facility] Differential cell count method Nom (Bld) Auto [facility] Eosinophils (Bld) [#/Vol] 0.15 10*3/uL <0.46 k/uL [facility] Eosinophils/100 WBC (Bld) 2.9 % [facility] Erythrocyte distribution width (RBC) [Ratio] 15.4 % High 11.5 - 15.0 % [facility] Hematocrit (Bld) [Volume fraction] 35.7 % Low 36.0 - 46.0 % [facility] Hemoglobin (Bld) [Mass/Vol] 12.0 g/dL 11.5 - 15.5 g/dL [facility] Immature granulocytes (Bld) [#/Vol] <0.10 k/uL [facility] Immature granulocytes/100 WBC (Bld) 0.2 % [facility] Lymphocytes (Bld) [#/Vol] 1.85 10*3/uL 1.00 - 4.00 k/uL [facility] Lymphocytes/100 WBC (Bld) 35.2 % [facility] MCH (RBC) [Entitic mass] 29.8 pg 26.0 - 34.0 pg [facility] MCHC (RBC) [Mass/Vol] 33.6 g/dL 30.5 - 36.0 g/dL [facility] MCV (RBC) [Entitic vol] 88.6 fL 80.0 - 100.0 fL [facility] Monocytes (Bld) [#/Vol] 0.40 10*3/uL <0.87 k/uL [facility] Monocytes/100 WBC (Bld) 7.6 % [facility] Neutrophils (Bld) [#/Vol] 2.77 10*3/uL 1.45 - 7.50 k/uL [facility] Neutrophils/100 WBC (Bld) 52.6 % [facility] Nucleated RBC (Bld) [#/Vol] <0.01 k/uL [facility] Nucleated RBC/100 WBC (Bld) [Ratio] 0.0 /100 WBC [facility] Platelet mean volume (Bld) [Entitic vol] 9.4 fL 9.0 - 12.7 fL [facility] Platelets (Bld) [#/Vol] 327 10*3/uL 150 - 400 k/uL [facility] RBC (Bld) [#/Vol] 4.03 10*6/uL 3.90 - 5.20 m/uL [facility] WBC (Bld) [#/Vol] 5.26 10*3/uL 3.70 - 11.00 k/uL [facility] Comprehensive metabolic 2000 panelon 12-23-2022 Albumin [Mass/Vol] 4.2 g/dL 3.9 - 4.9 g/dL [facility] ALP [Catalytic activity/Vol] 84 U/L 34 - 123 U/L [facility] ALT [Catalytic activity/Vol] 12 U/L 7 - 38 U/L [facility] Anion gap [Moles/Vol] 10 mmol/L 9 - 18 mmol/L [facility] AST [Catalytic activity/Vol] 15 U/L 13 - 35 U/L [facility] Bilirubin [Mass/Vol] 0.7 mg/dL 0.2 - 1 .3 mg/dL [facility] Calcium [Mass/Vol] 9.3 mg/dL 8.5 - 10. 2 mg/dL [facility] Chloride [Moles/Vol] 103 mmol/L 97 - 10 5 mmol/L [facility] CO2 [Moles/Vol] 24 mmol/L 22 - 30 mmol/L [facility] Creatinine [Mass/Vol] 0.81 mg/dL 0.58 - 0.96 mg/dL [facility] Estimated Glomerular Filtration Rate 75 mL/min/1.73m >=60 mL/min/1.7 3m [facility] Glucose [Mass/Vol] 88 mg/dL 74 - 99 mg/dL [facility] Potassium [Moles/Vol] 4.5 mmol/L 3.7 - 5.1 mmol/L [facility] Protein [Mass/Vol] 6.8 g/dL 6.3 - 8.0 g/dL [facility] Sodium [Moles/Vol] 137 mmol/L 136 - 144 mmol/L [facility] Urea nitrogen [Mass/Vol] 21 mg/dL 7 - 21 mg/dL [facility] CBC W Auto Differential pane l (Bld)on 12-01-2022 Basophils (Bld) [#/Vol] 0.08 10*3/uL <0.11 k/uL [facility] Basophils/100 WBC (Bld) 1.5 % [facility] Differential cell count method Nom (Bld) Auto [facility] Eosinophils (Bld) [#/Vol] 0.21 10*3/uL <0.46 k/uL [facility] Eosinophils/100 WBC (Bld) 3.9 % [facility] Erythrocyte distribution width (RBC) [Ratio] 15.2 % High 11.5 - 15.0 % [facility] Hematocrit (Bld) [Volume fraction] 38.1 % 36.0 - 46.0 % [facility] Hemoglobin (Bld) [Mass/Vol] 13.0 g/dL 11.5 - 15.5 g/dL [facility] Immature granulocytes (Bld) [#/Vol] <0.10 k/uL [facility] Immature granulocytes/100 WBC (Bld) 0.2 % [facility] Lymphocytes (Bld) [#/Vol] 2.49 10*3/uL 1.00 - 4.00 k/uL [facility] Lymphocytes/100 WBC (Bld) 45.9 % [facility] MCH (RBC) [Entitic mass] 29.9 pg 26.0 - 34.0 pg [facility] MCHC (RBC) [Mass/Vol] 34.1 g/dL 30.5 - 36.0 g/dL [facility] MCV (RBC) [Entitic vol] 87.6 fL 80.0 - 100.0 fL [facility] Monocytes (Bld) [#/Vol] 0.36 10*3/uL <0.87 k/uL [facility] Monocytes/100 WBC (Bld) 6.6 % [facility] Neutrophils (Bld) [#/Vol] 2.27 10*3/uL 1.45 - 7.50 k/uL [facility] Neutrophils/100 WBC (Bld) 41.9 % [facility] Nucleated RBC (Bld) [#/Vol] <0.01 k/uL [facility] Nucleated RBC/100 WBC (Bld) [Ratio] 0.0 /100 WBC [facility] Platelet mean volume (Bld) [Entitic vol] 9.5 fL 9.0 - 12.7 fL [facility] Platelets (Bld) [#/Vol] 355 10*3/uL 150 - 400 k/uL [facility] RBC (Bld) [#/Vol] 4.35 10*6/uL 3.90 - 5.20 m/uL [facility] WBC (Bld) [#/Vol] 5.42 10*3/uL 3.70 - 11.00 k/uL [facility] Comprehensive metabolic 2000 panelon 12-01-2022 Albumin [Mass/Vol] 4.4 g/dL 3.9 - 4.9 g/dL [facility] ALP [Catalytic activity/Vol] 85 U/L 34 - 123 U/L [facility] ALT [Catalytic activity/Vol] 11 U/L 7 - 38 U/L [facility] Anion gap [Moles/Vol] 11 mmol/L 9 - 18 mmol/L [facility] AST [Catalytic activity/Vol] 15 U/L 13 - 35 U/L [facility] Bilirubin [Mass/Vol] 1.0 mg/dL 0.2 - 1 .3 mg/dL [facility] Calcium [Mass/Vol] 9.3 mg/dL 8.5 - 10. 2 mg/dL [facility] Chloride [Moles/Vol] 100 mmol/L 97 - 10 5 mmol/L [facility] CO2 [Moles/Vol] 26 mmol/L 22 - 30 mmol/L [facility] Creatinine [Mass/Vol] 0.81 mg/dL 0.58 - 0.96 mg/dL [facility] Estimated Glomerular Filtration Rate 75 mL/min/1.73m >=60 mL/min/1.7 3m [facility] Glucose [Mass/Vol] 106 mg/dL High 74 - 99 mg/dL [facility] Potassium [Moles/Vol] 4.1 mmol/L 3.7 - 5.1 mmol/L [facility] Protein [Mass/Vol] 7.1 g/dL 6.3 - 8.0 g/dL [facility] Sodium [Moles/Vol] 137 mmol/L 136 - 144 mmol/L [facility] Urea nitrogen [Mass/Vol] 16 mg/dL 7 - 21 mg/dL [facility] CBC W Auto Differential pane l (Bld)on 11-10-2022 Basophils (Bld) [#/Vol] 0.07 10*3/uL <0.11 k/uL [facility] Basophils/100 WBC (Bld) 1.4 % [facility] Differential cell count method Nom (Bld) Auto [facility] Eosinophils (Bld) [#/Vol] 0.11 10*3/uL <0.46 k/uL [facility] Eosinophils/100 WBC (Bld) 2.2 % [facility] Erythrocyte distribution width (RBC) [Ratio] 15.2 % High 11.5 - 15.0 % [facility] Hematocrit (Bld) [Volume fraction] 36.6 % 36.0 - 46.0 % [facility] Hemoglobin (Bld) [Mass/Vol] 12.2 g/dL 11.5 - 15.5 g/dL [facility] Immature granulocytes (Bld) [#/Vol] <0.10 k/uL [facility] Immature granulocytes/100 WBC (Bld) 0.2 % [facility] Lymphocytes (Bld) [#/Vol] 1.92 10*3/uL 1.00 - 4.00 k/uL [facility] Lymphocytes/100 WBC (Bld) 38.7 % [facility] MCH (RBC) [Entitic mass] 29.3 pg 26.0 - 34.0 pg [facility] MCHC (RBC) [Mass/Vol] 33.3 g/dL 30.5 - 36.0 g/dL [facility] MCV (RBC) [Entitic vol] 87.8 fL 80.0 - 100.0 fL [facility] Monocytes (Bld) [#/Vol] 0.32 10*3/uL <0.87 k/uL [facility] Monocytes/100 WBC (Bld) 6.5 % [facility] Neutrophils (Bld) [#/Vol] 2.53 10*3/uL 1.45 - 7.50 k/uL [facility] Neutrophils/100 WBC (Bld) 51.0 % [facility] Nucleated RBC (Bld) [#/Vol] <0.01 k/uL [facility] Nucleated RBC/100 WBC (Bld) [Ratio] 0.0 /100 WBC [facility] Platelet mean volume (Bld) [Entitic vol] 9.5 fL 9.0 - 12.7 fL [facility] Platelets (Bld) [#/Vol] 344 10*3/uL 150 - 400 k/uL [facility] RBC (Bld) [#/Vol] 4.17 10*6/uL 3.90 - 5.20 m/uL [facility] WBC (Bld) [#/Vol] 4.96 10*3/uL 3.70 - 11.00 k/uL [facility] Comprehensive metabolic 2000 panelon 11-10-2022 Albumin [Mass/Vol] 4.3 g/dL 3.9 - 4.9 g/dL [facility] ALP [Catalytic activity/Vol] 84 U/L 34 - 123 U/L [facility] ALT [Catalytic activity/Vol] 12 U/L 7 - 38 U/L [facility] Anion gap [Moles/Vol] 10 mmol/L 9 - 18 mmol/L [facility] AST [Catalytic activity/Vol] 16 U/L 13 - 35 U/L [facility] Bilirubin [Mass/Vol] 0.9 mg/dL 0.2 - 1 .3 mg/dL [facility] Calcium [Mass/Vol] 9.1 mg/dL 8.5 - 10. 2 mg/dL [facility] Chloride [Moles/Vol] 101 mmol/L 97 - 10 5 mmol/L [facility] CO2 [Moles/Vol] 26 mmol/L 22 - 30 mmol/L [facility] Creatinine [Mass/Vol] 0.78 mg/dL 0.58 - 0.96 mg/dL [facility] Estimated Glomerular Filtration Rate 78 mL/min/1.73m >=60 mL/min/1.7 3m [facility] Glucose [Mass/Vol] 104 mg/dL High 74 - 99 mg/dL [facility] Potassium [Moles/Vol] 4.1 mmol/L 3.7 - 5.1 mmol/L [facility] Protein [Mass/Vol] 6.8 g/dL 6.3 - 8.0 g/dL [facility] Sodium [Moles/Vol] 137 mmol/L 136 - 144 mmol/L [facility] Urea nitrogen [Mass/Vol] 19 mg/dL 7 - 21 mg/dL [facility] CT CHEST WO IVCONon 10-15-19 [facility] CBC W Auto Differential pane l (Bld)on 09-29-2022 Basophils (Bld) [#/Vol] 0.07 10*3/uL <0.11 k/uL [facility] Basophils/100 WBC (Bld) 1.4 % [facility] Differential cell count method Nom (Bld) Auto [facility] Eosinophils (Bld) [#/Vol] 0.11 10*3/uL <0.46 k/uL [facility] Eosinophils/100 WBC (Bld) 2.2 % [facility] Erythrocyte distribution width (RBC) [Ratio] 14.8 % 11.5 - 15.0 % [facility] Hematocrit (Bld) [Volume fraction] 36.2 % 36.0 - 46.0 % [facility] Hemoglobin (Bld) [Mass/Vol] 12.4 g/dL 11.5 - 15.5 g/dL [facility] Immature granulocytes (Bld) [#/Vol] <0.10 k/uL [facility] Immature granulocytes/100 WBC (Bld) 0.0 % [facility] Lymphocytes (Bld) [#/Vol] 1.98 10*3/uL 1.00 - 4.00 k/uL [facility] Lymphocytes/100 WBC (Bld) 38.9 % [facility] MCH (RBC) [Entitic mass] 30.0 pg 26.0 - 34.0 pg [facility] MCHC (RBC) [Mass/Vol] 34.3 g/dL 30.5 - 36.0 g/dL [facility] MCV (RBC) [Entitic vol] 87.4 fL 80.0 - 100.0 fL [facility] Monocytes (Bld) [#/Vol] 0.33 10*3/uL <0.87 k/uL [facility] Monocytes/100 WBC (Bld) 6.5 % [facility] Neutrophils (Bld) [#/Vol] 2.60 10*3/uL 1.45 - 7.50 k/uL [facility] Neutrophils/100 WBC (Bld) 51.0 % [facility] Nucleated RBC (Bld) [#/Vol] <0.01 k/uL [facility] Nucleated RBC/100 WBC (Bld) [Ratio] 0.0 /100 WBC [facility] Platelet mean volume (Bld) [Entitic vol] 9.4 fL 9.0 - 12.7 fL [facility] Platelets (Bld) [#/Vol] 340 10*3/uL 150 - 400 k/uL [facility] RBC (Bld) [#/Vol] 4.14 10*6/uL 3.90 - 5.20 m/uL [facility] WBC (Bld) [#/Vol] 5.09 10*3/uL 3.70 - 11.00 k/uL [facility] Comprehensive metabolic 2000 panelon 09-29-2022 Albumin [Mass/Vol] 4.2 g/dL 3.9 - 4.9 g/dL [facility] ALP [Catalytic activity/Vol] 83 U/L 34 - 123 U/L [facility] ALT [Catalytic activity/Vol] 12 U/L 7 - 38 U/L [facility] Anion gap [Moles/Vol] 9 mmol/L 9 - 18 mmol/L [facility] AST [Catalytic activity/Vol] 14 U/L 13 - 35 U/L [facility] Bilirubin [Mass/Vol] 0.7 mg/dL 0.2 - 1 .3 mg/dL [facility] Calcium [Mass/Vol] 9.0 mg/dL 8.5 - 10. 2 mg/dL [facility] Chloride [Moles/Vol] 100 mmol/L 97 - 10 5 mmol/L [facility] CO2 [Moles/Vol] 27 mmol/L 22 - 30 mmol/L [facility] Creatinine [Mass/Vol] 0.73 mg/dL 0.58 - 0.96 mg/dL [facility] Estimated Glomerular Filtration Rate 85 mL/min/1.73m >=60 mL/min/1.7 3m [facility] Glucose [Mass/Vol] 98 mg/dL 74 - 99 mg/dL [facility] Potassium [Moles/Vol] 4.1 mmol/L 3.7 - 5.1 mmol/L [facility] Protein [Mass/Vol] 6.7 g/dL 6.3 - 8.0 g/dL [facility] Sodium [Moles/Vol] 136 mmol/L 136 - 144 mmol/L [facility] Urea nitrogen [Mass/Vol] 15 mg/dL 7 - 21 mg/dL [facility] CBC W Auto Differential pane l (Bld)on 09-08-2022 Basophils (Bld) [#/Vol] 0.07 10*3/uL <0.11 k/uL [facility] Basophils/100 WBC (Bld) 1.4 % [facility] Differential cell count method Nom (Bld) Auto [facility] Eosinophils (Bld) [#/Vol] 0.11 10*3/uL <0.46 k/uL [facility] Eosinophils/100 WBC (Bld) 2.3 % [facility] Erythrocyte distribution width (RBC) [Ratio] 14.8 % 11.5 - 15.0 % [facility] Hematocrit (Bld) [Volume fraction] 37.2 % 36.0 - 46.0 % [facility] Hemoglobin (Bld) [Mass/Vol] 12.5 g/dL 11.5 - 15.5 g/dL [facility] Immature granulocytes (Bld) [#/Vol] <0.10 k/uL [facility] Immature granulocytes/100 WBC (Bld) 0.2 % [facility] Lymphocytes (Bld) [#/Vol] 1.83 10*3/uL 1.00 - 4.00 k/uL [facility] Lymphocytes/100 WBC (Bld) 37.7 % [facility] MCH (RBC) [Entitic mass] 29.5 pg 26.0 - 34.0 pg [facility] MCHC (RBC) [Mass/Vol] 33.6 g/dL 30.5 - 36.0 g/dL [facility] MCV (RBC) [Entitic vol] 87.7 fL 80.0 - 100.0 fL [facility] Monocytes (Bld) [#/Vol] 0.31 10*3/uL <0.87 k/uL [facility] Monocytes/100 WBC (Bld) 6.4 % [facility] Neutrophils (Bld) [#/Vol] 2.53 10*3/uL 1.45 - 7.50 k/uL [facility] Neutrophils/100 WBC (Bld) 52.0 % [facility] Nucleated RBC (Bld) [#/Vol] <0.01 k/uL [facility] Nucleated RBC/100 WBC (Bld) [Ratio] 0.0 /100 WBC [facility] Platelet mean volume (Bld) [Entitic vol] 9.7 fL 9.0 - 12.7 fL [facility] Platelets (Bld) [#/Vol] 325 10*3/uL 150 - 400 k/uL [facility] RBC (Bld) [#/Vol] 4.24 10*6/uL 3.90 - 5.20 m/uL [facility] WBC (Bld) [#/Vol] 4.86 10*3/uL 3.70 - 11.00 k/uL [facility] Comprehensive metabolic 2000 panelon 09-08-2022 Albumin [Mass/Vol] 4.3 g/dL 3.9 - 4.9 g/dL [facility] ALP [Catalytic activity/Vol] 83 U/L 34 - 123 U/L [facility] ALT [Catalytic activity/Vol] 15 U/L 7 - 38 U/L [facility] Anion gap [Moles/Vol] 9 mmol/L 9 - 18 mmol/L [facility] AST [Catalytic activity/Vol] 17 U/L 13 - 35 U/L [facility] Bilirubin [Mass/Vol] 1.0 mg/dL 0.2 - 1 .3 mg/dL [facility] Calcium [Mass/Vol] 9.1 mg/dL 8.5 - 10. 2 mg/dL [facility] Chloride [Moles/Vol] 98 mmol/L 97 - 10 5 mmol/L [facility] CO2 [Moles/Vol] 27 mmol/L 22 - 30 mmol/L [facility] Creatinine [Mass/Vol] 0.76 mg/dL 0.58 - 0.96 mg/dL [facility] Estimated Glomerular Filtration Rate 81 mL/min/1.73m >=60 mL/min/1.7 3m [facility] Glucose [Mass/Vol] 124 mg/dL High 74 - 99 mg/dL [facility] Potassium [Moles/Vol] 4.3 mmol/L 3.7 - 5.1 mmol/L [facility] Protein [Mass/Vol] 6.7 g/dL 6.3 - 8.0 g/dL [facility] Sodium [Moles/Vol] 134 mmol/L Low 136 - 144 mmol/L [facility] Urea nitrogen [Mass/Vol] 13 mg/dL 7 - 21 mg/dL [facility] CBC W Auto Differential pane l (Bld)on 08-18-2022 Basophils (Bld) [#/Vol] 0.09 10*3/uL <0.11 k/uL [facility] Basophils/100 WBC (Bld) 1.8 % [facility] Differential cell count method Nom (Bld) Auto [facility] Eosinophils (Bld) [#/Vol] 0.11 10*3/uL <0.46 k/uL [facility] Eosinophils/100 WBC (Bld) 2.1 % [facility] Erythrocyte distribution width (RBC) [Ratio] 14.7 % 11.5 - 15.0 % [facility] Hematocrit (Bld) [Volume fraction] 37.9 % 36.0 - 46.0 % [facility] Hemoglobin (Bld) [Mass/Vol] 12.5 g/dL 11.5 - 15.5 g/dL [facility] Immature granulocytes (Bld) [#/Vol] <0.10 k/uL [facility] Immature granulocytes/100 WBC (Bld) 0.2 % [facility] Lymphocytes (Bld) [#/Vol] 1.89 10*3/uL 1.00 - 4.00 k/uL [facility] Lymphocytes/100 WBC (Bld) 36.9 % [facility] MCH (RBC) [Entitic mass] 29.2 pg 26.0 - 34.0 pg [facility] MCHC (RBC) [Mass/Vol] 33.0 g/dL 30.5 - 36.0 g/dL [facility] MCV (RBC) [Entitic vol] 88.6 fL 80.0 - 100.0 fL [facility] Monocytes (Bld) [#/Vol] 0.36 10*3/uL <0.87 k/uL [facility] Monocytes/100 WBC (Bld) 7.0 % [facility] Neutrophils (Bld) [#/Vol] 2.66 10*3/uL 1.45 - 7.50 k/uL [facility] Neutrophils/100 WBC (Bld) 52.0 % [facility] Nucleated RBC (Bld) [#/Vol] <0.01 k/uL [facility] Nucleated RBC/100 WBC (Bld) [Ratio] 0.0 /100 WBC [facility] Platelet mean volume (Bld) [Entitic vol] 9.6 fL 9.0 - 12.7 fL [facility] Platelets (Bld) [#/Vol] 332 10*3/uL 150 - 400 k/uL [facility] RBC (Bld) [#/Vol] 4.28 10*6/uL 3.90 - 5.20 m/uL [facility] WBC (Bld) [#/Vol] 5.12 10*3/uL 3.70 - 11.00 k/uL [facility] Comprehensive metabolic 2000 panelon 08-18-2022 Albumin [Mass/Vol] 4.2 g/dL 3.9 - 4.9 g/dL [facility] ALP [Catalytic activity/Vol] 78 U/L 34 - 123 U/L [facility] ALT [Catalytic activity/Vol] 14 U/L 7 - 38 U/L [facility] Anion gap [Moles/Vol] 10 mmol/L 9 - 18 mmol/L [facility] AST [Catalytic activity/Vol] 18 U/L 13 - 35 U/L [facility] Bilirubin [Mass/Vol] 0.7 mg/dL 0.2 - 1 .3 mg/dL [facility] Calcium [Mass/Vol] 9.0 mg/dL 8.5 - 10. 2 mg/dL [facility] Chloride [Moles/Vol] 100 mmol/L 97 - 10 5 mmol/L [facility] CO2 [Moles/Vol] 25 mmol/L 22 - 30 mmol/L [facility] Creatinine [Mass/Vol] 0.81 mg/dL 0.58 - 0.96 mg/dL [facility] Estimated Glomerular Filtration Rate 75 mL/min/1.73m >=60 mL/min/1.7 3m [facility] Glucose [Mass/Vol] 92 mg/dL 74 - 99 mg/dL [facility] Potassium [Moles/Vol] 4.0 mmol/L 3.7 - 5.1 mmol/L [facility] Protein [Mass/Vol] 6.7 g/dL 6.3 - 8.0 g/dL [facility] Sodium [Moles/Vol] 135 mmol/L Low 136 - 144 mmol/L [facility] Urea nitrogen [Mass/Vol] 15 mg/dL 7 - 21 mg/dL [facility] CBC W Auto Differential pane l (Bld)on 07-28-2022 Basophils (Bld) [#/Vol] 0.08 10*3/uL <0.11 k/uL [facility] Basophils/100 WBC (Bld) 1.7 % [facility] Differential cell count method Nom (Bld) Auto [facility] Eosinophils (Bld) [#/Vol] 0.13 10*3/uL <0.46 k/uL [facility] Eosinophils/100 WBC (Bld) 2.7 % [facility] Erythrocyte distribution width (RBC) [Ratio] 14.8 % 11.5 - 15.0 % [facility] Hematocrit (Bld) [Volume fraction] 35.3 % Low 36.0 - 46.0 % [facility] Hemoglobin (Bld) [Mass/Vol] 11.9 g/dL 11.5 - 15.5 g/dL [facility] Immature granulocytes (Bld) [#/Vol] <0.10 k/uL [facility] Immature granulocytes/100 WBC (Bld) 0.2 % [facility] Lymphocytes (Bld) [#/Vol] 1.87 10*3/uL 1.00 - 4.00 k/uL [facility] Lymphocytes/100 WBC (Bld) 38.7 % [facility] MCH (RBC) [Entitic mass] 29.4 pg 26.0 - 34.0 pg [facility] MCHC (RBC) [Mass/Vol] 33.7 g/dL 30.5 - 36.0 g/dL [facility] MCV (RBC) [Entitic vol] 87.2 fL 80.0 - 100.0 fL [facility] Monocytes (Bld) [#/Vol] 0.34 10*3/uL <0.87 k/uL [facility] Monocytes/100 WBC (Bld) 7.0 % [facility] Neutrophils (Bld) [#/Vol] 2.40 10*3/uL 1.45 - 7.50 k/uL [facility] Neutrophils/100 WBC (Bld) 49.7 % [facility] Nucleated RBC (Bld) [#/Vol] <0.01 k/uL [facility] Nucleated RBC/100 WBC (Bld) [Ratio] 0.0 /100 WBC [facility] Platelet mean volume (Bld) [Entitic vol] 9.3 fL 9.0 - 12.7 fL [facility] Platelets (Bld) [#/Vol] 322 10*3/uL 150 - 400 k/uL [facility] RBC (Bld) [#/Vol] 4.05 10*6/uL 3.90 - 5.20 m/uL [facility] WBC (Bld) [#/Vol] 4.83 10*3/uL 3.70 - 11.00 k/uL [facility] Comprehensive metabolic 2000 panelon 07-28-2022 Albumin [Mass/Vol] 4.0 g/dL 3.9 - 4.9 g/dL [facility] ALP [Catalytic activity/Vol] 68 U/L 34 - 123 U/L [facility] ALT [Catalytic activity/Vol] 11 U/L 7 - 38 U/L [facility] Anion gap [Moles/Vol] 9 mmol/L 9 - 18 mmol/L [facility] AST [Catalytic activity/Vol] 15 U/L 13 - 35 U/L [facility] Bilirubin [Mass/Vol] 1.0 mg/dL 0.2 - 1 .3 mg/dL [facility] Calcium [Mass/Vol] 8.7 mg/dL 8.5 - 10. 2 mg/dL [facility] Chloride [Moles/Vol] 101 mmol/L 97 - 10 5 mmol/L [facility] CO2 [Moles/Vol] 25 mmol/L 22 - 30 mmol/L [facility] Creatinine [Mass/Vol] 0.73 mg/dL 0.58 - 0.96 mg/dL [facility] Estimated Glomerular Filtration Rate 85 mL/min/1.73m >=60 mL/min/1.7 3m [facility] Glucose [Mass/Vol] 114 mg/dL High 74 - 99 mg/dL [facility] Potassium [Moles/Vol] 4.4 mmol/L 3.7 - 5.1 mmol/L [facility] Protein [Mass/Vol] 6.6 g/dL 6.3 - 8.0 g/dL [facility] Sodium [Moles/Vol] 135 mmol/L Low 136 - 144 mmol/L [facility] Urea nitrogen [Mass/Vol] 18 mg/dL 7 - 21 mg/dL [facility] Culture, urineOrdered By: Dr Christiano Chang on 07-14-2022 Bacteria identified Cx Nom (U) Presumptive E. coli [facility] CBC W Auto Differential pane l (Bld)on 07-07-2022 Basophils (Bld) [#/Vol] 0.06 10*3/uL <0.11 k/uL [facility] Basophils/100 WBC (Bld) 1.1 % [facility] Differential cell count method Nom (Bld) Auto [facility] Eosinophils (Bld) [#/Vol] 0.10 10*3/uL <0.46 k/uL [facility] Eosinophils/100 WBC (Bld) 1.8 % [facility] Erythrocyte distribution width (RBC) [Ratio] 15.4 % High 11.5 - 15.0 % [facility] Hematocrit (Bld) [Volume fraction] 33.4 % Low 36.0 - 46.0 % [facility] Hemoglobin (Bld) [Mass/Vol] 11.4 g/dL Low 11.5 - 15.5 g/dL [facility] Immature granulocytes (Bld) [#/Vol] <0.10 k/uL [facility] Immature granulocytes/100 WBC (Bld) 0.2 % [facility] Lymphocytes (Bld) [#/Vol] 1.67 10*3/uL 1.00 - 4.00 k/uL [facility] Lymphocytes/100 WBC (Bld) 30.0 % [facility] MCH (RBC) [Entitic mass] 30.1 pg 26.0 - 34.0 pg [facility] MCHC (RBC) [Mass/Vol] 34.1 g/dL 30.5 - 36.0 g/dL [facility] MCV (RBC) [Entitic vol] 88.1 fL 80.0 - 100.0 fL [facility] Monocytes (Bld) [#/Vol] 0.31 10*3/uL <0.87 k/uL [facility] Monocytes/100 WBC (Bld) 5.6 % [facility] Neutrophils (Bld) [#/Vol] 3.41 10*3/uL 1.45 - 7.50 k/uL [facility] Neutrophils/100 WBC (Bld) 61.3 % [facility] Nucleated RBC (Bld) [#/Vol] <0.01 k/uL [facility] Nucleated RBC/100 WBC (Bld) [Ratio] 0.0 /100 WBC [facility] Platelet mean volume (Bld) [Entitic vol] 9.7 fL 9.0 - 12.7 fL [facility] Platelets (Bld) [#/Vol] 290 10*3/uL 150 - 400 k/uL [facility] RBC (Bld) [#/Vol] 3.79 10*6/uL Low 3.90 - 5.20 m/uL [facility] WBC (Bld) [#/Vol] 5.56 10*3/uL 3.70 - 11.00 k/uL [facility] Comprehensive metabolic 2000 panelon 07-07-2022 Albumin [Mass/Vol] 4.1 g/dL 3.9 - 4.9 g/dL [facility] ALP [Catalytic activity/Vol] 67 U/L 34 - 123 U/L [facility] ALT [Catalytic activity/Vol] 13 U/L 7 - 38 U/L [facility] Anion gap [Moles/Vol] 9 mmol/L 9 - 18 mmol/L [facility] AST [Catalytic activity/Vol] 15 U/L 13 - 35 U/L [facility] Bilirubin [Mass/Vol] 0.9 mg/dL 0.2 - 1 .3 mg/dL [facility] Calcium [Mass/Vol] 8.5 mg/dL 8.5 - 10. 2 mg/dL [facility] Chloride [Moles/Vol] 101 mmol/L 97 - 10 5 mmol/L [facility] CO2 [Moles/Vol] 25 mmol/L 22 - 30 mmol/L [facility] Creatinine [Mass/Vol] 0.64 mg/dL 0.58 - 0.96 mg/dL [facility] Estimated Glomerular Filtration Rate 91 mL/min/1.73m >=60 mL/min/1.7 3m [facility] Glucose [Mass/Vol] 117 mg/dL High 74 - 99 mg/dL [facility] Potassium [Moles/Vol] 4.0 mmol/L 3.7 - 5.1 mmol/L [facility] Protein [Mass/Vol] 6.3 g/dL 6.3 - 8.0 g/dL [facility] Sodium [Moles/Vol] 135 mmol/L Low 136 - 144 mmol/L [facility] Urea nitrogen [Mass/Vol] 15 mg/dL 7 - 21 mg/dL [facility] CBC W Auto Differential pane l (Bld)on 06-16-2022 Basophils (Bld) [#/Vol] 0.06 10*3/uL <0.11 k/uL [facility] Basophils/100 WBC (Bld) 1.2 % [facility] Differential cell count method Nom (Bld) Auto [facility] Eosinophils (Bld) [#/Vol] 0.07 10*3/uL <0.46 k/uL [facility] Eosinophils/100 WBC (Bld) 1.4 % [facility] Erythrocyte distribution width (RBC) [Ratio] 15.3 % High 11.5 - 15.0 % [facility] Hematocrit (Bld) [Volume fraction] 35.4 % Low 36.0 - 46.0 % [facility] Hemoglobin (Bld) [Mass/Vol] 11.9 g/dL 11.5 - 15.5 g/dL [facility] Immature granulocytes (Bld) [#/Vol] <0.10 k/uL [facility] Immature granulocytes/100 WBC (Bld) 0.4 % [facility] Lymphocytes (Bld) [#/Vol] 1.46 10*3/uL 1.00 - 4.00 k/uL [facility] Lymphocytes/100 WBC (Bld) 29.6 % [facility] MCH (RBC) [Entitic mass] 29.5 pg 26.0 - 34.0 pg [facility] MCHC (RBC) [Mass/Vol] 33.6 g/dL 30.5 - 36.0 g/dL [facility] MCV (RBC) [Entitic vol] 87.6 fL 80.0 - 100.0 fL [facility] Monocytes (Bld) [#/Vol] 0.36 10*3/uL <0.87 k/uL [facility] Monocytes/100 WBC (Bld) 7.3 % [facility] Neutrophils (Bld) [#/Vol] 2.97 10*3/uL 1.45 - 7.50 k/uL [facility] Neutrophils/100 WBC (Bld) 60.1 % [facility] Nucleated RBC (Bld) [#/Vol] <0.01 k/uL [facility] Nucleated RBC/100 WBC (Bld) [Ratio] 0.0 /100 WBC [facility] Platelet mean volume (Bld) [Entitic vol] 9.0 fL 9.0 - 12.7 fL [facility] Platelets (Bld) [#/Vol] 310 10*3/uL 150 - 400 k/uL [facility] RBC (Bld) [#/Vol] 4.04 10*6/uL 3.90 - 5.20 m/uL [facility] WBC (Bld) [#/Vol] 4.94 10*3/uL 3.70 - 11.00 k/uL [facility] Comprehensive metabolic 2000 panelon 06-16-2022 Albumin [Mass/Vol] 4.3 g/dL 3.9 - 4.9 g/dL [facility] ALP [Catalytic activity/Vol] 75 U/L 34 - 123 U/L [facility] ALT [Catalytic activity/Vol] 11 U/L 7 - 38 U/L [facility] Anion gap [Moles/Vol] 9 mmol/L 9 - 18 mmol/L [facility] AST [Catalytic activity/Vol] 15 U/L 13 - 35 U/L [facility] Bilirubin [Mass/Vol] 0.7 mg/dL 0.2 - 1 .3 mg/dL [facility] Calcium [Mass/Vol] 9.1 mg/dL 8.5 - 10. 2 mg/dL [facility] Chloride [Moles/Vol] 100 mmol/L 97 - 10 5 mmol/L [facility] CO2 [Moles/Vol] 26 mmol/L 22 - 30 mmol/L [facility] Creatinine [Mass/Vol] 0.65 mg/dL 0.58 - 0.96 mg/dL [facility] Estimated Glomerular Filtration Rate 91 mL/min/1.73m >=60 mL/min/1.7 3m [facility] Glucose [Mass/Vol] 101 mg/dL High 74 - 99 mg/dL [facility] Potassium [Moles/Vol] 4.1 mmol/L 3.7 - 5.1 mmol/L [facility] Protein [Mass/Vol] 6.5 g/dL 6.3 - 8.0 g/dL [facility] Sodium [Moles/Vol] 135 mmol/L Low 136 - 144 mmol/L [facility] Urea nitrogen [Mass/Vol] 11 mg/dL 7 - 21 mg/dL [facility] MRI ABDOMEN WO/W IVCONon [facility] CBC W Auto Differential pane l (Bld)on 05-26-2022 Basophils (Bld) [#/Vol] 0.06 10*3/uL <0.11 k/uL [facility] Basophils/100 WBC (Bld) 1.1 % [facility] Differential cell count method Nom (Bld) Auto [facility] Eosinophils (Bld) [#/Vol] 0.16 10*3/uL <0.46 k/uL [facility] Eosinophils/100 WBC (Bld) 3.0 % [facility] Erythrocyte distribution width (RBC) [Ratio] 15.7 % High 11.5 - 15.0 % [facility] Hematocrit (Bld) [Volume fraction] 35.0 % Low 36.0 - 46.0 % [facility] Hemoglobin (Bld) [Mass/Vol] 11.6 g/dL 11.5 - 15.5 g/dL [facility] Immature granulocytes (Bld) [#/Vol] <0.10 k/uL [facility] Immature granulocytes/100 WBC (Bld) 0.2 % [facility] Lymphocytes (Bld) [#/Vol] 1.83 10*3/uL 1.00 - 4.00 k/uL [facility] Lymphocytes/100 WBC (Bld) 34.8 % [facility] MCH (RBC) [Entitic mass] 29.3 pg 26.0 - 34.0 pg [facility] MCHC (RBC) [Mass/Vol] 33.1 g/dL 30.5 - 36.0 g/dL [facility] MCV (RBC) [Entitic vol] 88.4 fL 80.0 - 100.0 fL [facility] Monocytes (Bld) [#/Vol] 0.33 10*3/uL <0.87 k/uL [facility] Monocytes/100 WBC (Bld) 6.3 % [facility] Neutrophils (Bld) [#/Vol] 2.87 10*3/uL 1.45 - 7.50 k/uL [facility] Neutrophils/100 WBC (Bld) 54.6 % [facility] Nucleated RBC (Bld) [#/Vol] <0.01 k/uL [facility] Nucleated RBC/100 WBC (Bld) [Ratio] 0.0 /100 WBC [facility] Platelet mean volume (Bld) [Entitic vol] 9.3 fL 9.0 - 12.7 fL [facility] Platelets (Bld) [#/Vol] 326 10*3/uL 150 - 400 k/uL [facility] RBC (Bld) [#/Vol] 3.96 10*6/uL 3.90 - 5.20 m/uL [facility] WBC (Bld) [#/Vol] 5.26 10*3/uL 3.70 - 11.00 k/uL [facility] Comprehensive metabolic 2000 panelon 05-26-2022 Albumin [Mass/Vol] 4.3 g/dL 3.9 - 4.9 g/dL [facility] ALP [Catalytic activity/Vol] 75 U/L 34 - 123 U/L [facility] ALT [Catalytic activity/Vol] 12 U/L 7 - 38 U/L [facility] Anion gap [Moles/Vol] 12 mmol/L 9 - 18 mmol/L [facility] AST [Catalytic activity/Vol] 14 U/L 13 - 35 U/L [facility] Bilirubin [Mass/Vol] 0.5 mg/dL 0.2 - 1 .3 mg/dL [facility] Calcium [Mass/Vol] 9.1 mg/dL 8.5 - 10. 2 mg/dL [facility] Chloride [Moles/Vol] 102 mmol/L 97 - 10 5 mmol/L [facility] CO2 [Moles/Vol] 25 mmol/L 22 - 30 mmol/L [facility] Creatinine [Mass/Vol] 0.64 mg/dL 0.58 - 0.96 mg/dL [facility] Estimated Glomerular Filtration Rate 91 mL/min/1.73m >=60 mL/min/1.7 3m [facility] Glucose [Mass/Vol] 112 mg/dL High 74 - 99 mg/dL [facility] Potassium [Moles/Vol] 3.9 mmol/L 3.7 - 5.1 mmol/L [facility] Protein [Mass/Vol] 6.3 g/dL 6.3 - 8.0 g/dL [facility] Sodium [Moles/Vol] 139 mmol/L 136 - 144 mmol/L [facility] Urea nitrogen [Mass/Vol] 12 mg/dL 7 - 21 mg/dL [facility] Laboratory - Chemistry and C hemistry - challengeon 05-22-2022 Bilirubin Ql (U) Negative [facility] Glucose Ql (U) Negative [facility] Ketones Ql (U) Negative [facility] pH (U) 7.5 [pH] [facility] Specific gravity (U) [Rel density] 1.005 [facility] Urobilinogen (U) [Mass/Vol] Negative [facility] Laboratory - Hematology and Cell countson 05-22-2022 Hemoglobin Ql (U) Hemolyzed [facility] Laboratory - Specimen inform ationon 05-22-2022 Clarity (U) Clear [facility] Color (U) YELLOW [facility] Laboratory - Urinalysison Nitrite Ql (U) Negative [facility] Protein Ql (U) Negative [facility] No Panel Informationon 05-[address] [facility] Urine Non-Hemolyzed Blood Large [facility] CBC W Auto Differential pane l (Bld)on 05-05-2022 Basophils (Bld) [#/Vol] 0.05 10*3/uL <0.11 k/uL [facility] Basophils/100 WBC (Bld) 0.9 % [facility] Differential cell count method Nom (Bld) Auto [facility] Eosinophils (Bld) [#/Vol] 0.11 10*3/uL <0.46 k/uL [facility] Eosinophils/100 WBC (Bld) 2.0 % [facility] Erythrocyte distribution width (RBC) [Ratio] 15.3 % High 11.5 - 15.0 % [facility] Hematocrit (Bld) [Volume fraction] 35.6 % Low 36.0 - 46.0 % [facility] Hemoglobin (Bld) [Mass/Vol] 12.0 g/dL 11.5 - 15.5 g/dL [facility] Immature granulocytes (Bld) [#/Vol] <0.10 k/uL [facility] Immature granulocytes/100 WBC (Bld) 0.4 % [facility] Lymphocytes (Bld) [#/Vol] 1.99 10*3/uL 1.00 - 4.00 k/uL [facility] Lymphocytes/100 WBC (Bld) 36.6 % [facility] MCH (RBC) [Entitic mass] 29.3 pg 26.0 - 34.0 pg [facility] MCHC (RBC) [Mass/Vol] 33.7 g/dL 30.5 - 36.0 g/dL [facility] MCV (RBC) [Entitic vol] 87.0 fL 80.0 - 100.0 fL [facility] Monocytes (Bld) [#/Vol] 0.37 10*3/uL <0.87 k/uL [facility] Monocytes/100 WBC (Bld) 6.8 % [facility] Neutrophils (Bld) [#/Vol] 2.89 10*3/uL 1.45 - 7.50 k/uL [facility] Neutrophils/100 WBC (Bld) 53.3 % [facility] Nucleated RBC (Bld) [#/Vol] <0.01 k/uL [facility] Nucleated RBC/100 WBC (Bld) [Ratio] 0.0 /100 WBC [facility] Platelet mean volume (Bld) [Entitic vol] 9.3 fL 9.0 - 12.7 fL [facility] Platelets (Bld) [#/Vol] 367 10*3/uL 150 - 400 k/uL [facility] RBC (Bld) [#/Vol] 4.09 10*6/uL 3.90 - 5.20 m/uL [facility] WBC (Bld) [#/Vol] 5.43 10*3/uL 3.70 - 11.00 k/uL [facility] Comprehensive metabolic 2000 panelon 05-05-2022 Albumin [Mass/Vol] 4.4 g/dL 3.9 - 4.9 g/dL [facility] ALP [Catalytic activity/Vol] 78 U/L 34 - 123 U/L [facility] ALT [Catalytic activity/Vol] 11 U/L 7 - 38 U/L [facility] Anion gap [Moles/Vol] 10 mmol/L 9 - 18 mmol/L [facility] AST [Catalytic activity/Vol] 16 U/L 13 - 35 U/L [facility] Bilirubin [Mass/Vol] 0.6 mg/dL 0.2 - 1 .3 mg/dL [facility] Calcium [Mass/Vol] 9.0 mg/dL 8.5 - 10. 2 mg/dL [facility] Chloride [Moles/Vol] 99 mmol/L 97 - 10 5 mmol/L [facility] CO2 [Moles/Vol] 24 mmol/L 22 - 30 mmol/L [facility] Creatinine [Mass/Vol] 0.72 mg/dL 0.58 - 0.96 mg/dL [facility] Estimated Glomerular Filtration Rate 86 mL/min/1.73m >=60 mL/min/1.7 3m [facility] Glucose [Mass/Vol] 124 mg/dL High 74 - 99 mg/dL [facility] Potassium [Moles/Vol] 4.1 mmol/L 3.7 - 5.1 mmol/L [facility] Protein [Mass/Vol] 7.1 g/dL 6.3 - 8.0 g/dL [facility] Sodium [Moles/Vol] 133 mmol/L Low 136 - 144 mmol/L [facility] Urea nitrogen [Mass/Vol] 16 mg/dL 7 - 21 mg/dL [facility] DBT Breast - bilateral diagn ostic for implanton 04-22-2022 IMPRESSION: KNOWN BI OPSY PROVEN MALIGNANCY The multiple segmental pleomorphic calcifications in the left breast are a known biopsy positive for malignancy. A surgical consult is recommended. The exam was reviewed by a staff physician. SUMMARY: The patient will see Dr. Matos today in consultation. john Zelaya M.D., M.D./candelaria:04/22/2022 12:02:19 Director Of Casino Marketing(s): RT Nathalia(R)(M), [facility] Mammogram BI-RADS: 6 Known biopsy proven malignancy Multiple national specialty organizations have released breast cancer screening guidelines for women at average risk for developing breast cancer - guidelines that are based on both evidence and opinion, yet differ on when to start and how often to screen for breast cancer. With representation from Breast Imaging, Internal Medicine, Women's Health, Family Medicine, and Medical/Surgical Oncology, the [facility] has carefully reviewed the data and reached the following consensus: 1) All women should engage in shared decision-making with their providers to decide when to start and how often to screen; 2) All women should have the opportunity to start screening mammography at age 40; 3) For women ages 45-55, we recommend annual screening mammograms; 4) For women ages 55 and over, we support both the transition from an annual to a biennial interval if this aligns more with patient's values and preferences, or continuation with annual screening; 5) All women should discuss with their providers when to stop screening mammograms. Home Care Liaison: [place] Transcribe Date/Time: Apr 22 2022 8:04A Dictated by: SIMONE GOODEN MD This examination was interpreted and the report reviewed and electronically signed by: GRACY GARCIA MD on Apr 22 2022 12:02PM [facility] DIVISION OF RADIOLOGY * * *Final Report* * * DATE OF EXAM: Apr 22 2022 8:48AM [facility] 0627 - CHHAYA DIAG W NAVNEET MARCEL / PROCEDURE REASON: HER2-positive carcinoma of breast (HCC) * * * * Physician Interpretation * * * * RESULT: #[id number] - [facility]AYA DIAG W NAVNEET MARCEL BILATERAL DIGITAL DIAGNOSTIC MAMMOGRAM TOMOSYNTHESIS WITH CAD: 04/22/2022 HISTORY: Her2-Positive Carcinoma Of Breast (Hcc). RESULT: TECHNIQUE: The study was acquired using full field digital technology and interpreted from soft copy. Digital Breast Tomosynthesis (DBT) images were obtained and used to assist in the interpretation of this examination. Current study was also evaluated with a Computer Aided Detection (CAD). Comparison is made to exams dated: 12/28/2019 mammogram, 12/06/2019 mammogram, 11/23/2017 mammogram, 09/02/2020 mammogram, and 09/02/2020 ultrasound - [facility]. The tissue of both breasts is heterogeneously dense. This may lower the sensitivity of mammography. The left breast has post-operative findings. There are multiple segmental pleomorphic calcifications in the left breast central to the nipple. These are seen in additional views. There is a biopsy clip associated with the calcifications. The patient is status post ultrasound guided core biopsy of a lobulated mass seen on ultrasound at the 1:00 position on 09/2020 with positive results of IDC with mucinous features . The mass included calcifications. There is a coil clip in the area of the biopsy at this time. There has been no change in the appearance of the lumpectomy site or the calcifications identified at the lumpectomy site from the 09/02/2020 mammogram. DIVISION OF RADIOLOGY Provider, [facility] - 04/22/2022 * * *Final Report* * * DATE OF EXAM: Apr 22 2022 8:48AM [facility] 0627 - CHHAYA DIAG W NAVNEET MARCEL / PROCEDURE REASON: HER2-positive carcinoma of breast (HCC) * * * * Physician Interpretation * * * * RESULT: #[id number] - [facility]AY[facility] DIAG W NAVNEET MARCEL BILATERAL DIGITAL DIAGNOSTIC MAMMOGRAM TOMOSYNTHESIS WITH CAD: 04/22/2022 HISTORY: Her2-Positive Carcinoma Of Breast (Hcc). RESULT: TECHNIQUE: The study was acquired using full field digital technology and interpreted from soft copy. Digital Breast Tomosynthesis (DBT) images were obtained and used to assist in the interpretation of this examination. Current study was also evaluated with a Computer Aided Detection (CAD). Comparison is made to exams dated: 12/28/2019 mammogram, 12/06/2019 mammogram, 11/23/2017 mammogram, 09/02/2020 mammogram, and 09/02/2020 ultrasound - [facility]. The tissue of both breasts is heterogeneously dense. This may lower the sensitivity of mammography. The left breast has post-operative findings. There are multiple segmental pleomorphic calcifications in the left breast central to the nipple. These are seen in additional views. There is a biopsy clip associated with the calcifications. The patient is status post ultrasound guided core biopsy of a lobulated mass seen on ultrasound at the 1:00 position on 09/2020 with positive results of IDC with mucinous features . The mass included calcifications. There is a coil clip in the area of the biopsy at this time. There has been no change in the appearance of the lumpectomy site or the calcifications identified at the lumpectomy site from the 09/02/2020 mammogram. IMPRESSION IMPRESSION: KNOWN BIOPSY PROVEN MALIGNANCY The multiple segmental pleomorphic calcifications in the left breast are a known biopsy positive for malignancy. A surgical consult is recommended. The exam was reviewed by a staff physician. SUMMARY: The patient will see Dr. Matos today in consultation. john Zelaya M.D., M.D./candelaria:04/22/2022 12:02:19 Director Of Casino Marketing(s): RT Nathalia(Pop)(M), [facility] Mammogram BI-RADS: 6 Known biopsy proven malignancy Multiple national specialty organizations have released breast cancer screening guidelines for women at average risk for developing breast cancer - guidelines that are based on both evidence and opinion, yet differ on when to start and how often to screen for breast cancer. With representation from Breast Imaging, Internal Medicine, Women's Health, Family Medicine, and Medical/Surgical Oncology, the [facility] has carefully reviewed the data and reached the following consensus: 1) All women should engage in shared decision-making with their providers to decide when to start and how often to screen; 2) All women should have the opportunity to start screening mammography at age 40; 3) For women ages 45-55, we recommend annual screening mammograms; 4) For women ages 55 and over, we support both the transition from an annual to a biennial interval if this aligns more with patient's values and preferences, or continuation with annual screening; 5) All women should discuss with their providers when to stop screening mammograms. Home Care Liaison: [place] Transcribe Date/Time: Apr 22 2022 8:04A Dictated by: SIMONE GOODEN MD This examination was interpreted and the report reviewed and electronically signed by: GRACY GARCIA MD on Apr 22 2022 12:02PM EST [facility] Radiology Study observation (narrative) [facility] DBT Breast - bilateral diagn ostic for implantOrdered By: [facility] Provider on 04-22-2022 [facility] CBC W Auto Differential pane l (Bld)on 2022 Basophils (Bld) [#/Vol] 0.05 10*3/uL <0.11 k/uL [facility] Basophils/100 WBC (Bld) 1.0 % [facility] Differential cell count method Nom (Bld) Auto [facility] Eosinophils (Bld) [#/Vol] 0.11 10*3/uL <0.46 k/uL [facility] Eosinophils/100 WBC (Bld) 2.2 % [facility] Erythrocyte distribution width (RBC) [Ratio] 15.4 % High 11.5 - 15.0 % [facility] Hematocrit (Bld) [Volume fraction] 35.6 % Low 36.0 - 46.0 % [facility] Hemoglobin (Bld) [Mass/Vol] 11.9 g/dL 11.5 - 15.5 g/dL [facility] Immature granulocytes (Bld) [#/Vol] <0.10 k/uL [facility] Immature granulocytes/100 WBC (Bld) 0.2 % [facility] Lymphocytes (Bld) [#/Vol] 1.81 10*3/uL 1.00 - 4.00 k/uL [facility] Lymphocytes/100 WBC (Bld) 37.0 % [facility] MCH (RBC) [Entitic mass] 29.5 pg 26.0 - 34.0 pg [facility] MCHC (RBC) [Mass/Vol] 33.4 g/dL 30.5 - 36.0 g/dL [facility] MCV (RBC) [Entitic vol] 88.3 fL 80.0 - 100.0 fL [facility] Monocytes (Bld) [#/Vol] 0.35 10*3/uL <0.87 k/uL [facility] Monocytes/100 WBC (Bld) 7.2 % [facility] Neutrophils (Bld) [#/Vol] 2.56 10*3/uL 1.45 - 7.50 k/uL [facility] Neutrophils/100 WBC (Bld) 52.4 % [facility] Nucleated RBC (Bld) [#/Vol] <0.01 k/uL [facility] Nucleated RBC/100 WBC (Bld) [Ratio] 0.0 /100 WBC [facility] Platelet mean volume (Bld) [Entitic vol] 9.5 fL 9.0 - 12.7 fL [facility] Platelets (Bld) [#/Vol] 323 10*3/uL 150 - 400 k/uL [facility] RBC (Bld) [#/Vol] 4.03 10*6/uL 3.90 - 5.20 m/uL [facility] WBC (Bld) [#/Vol] 4.89 10*3/uL 3.70 - 11.00 k/uL [facility] Comprehensive metabolic 2000 panelon 2022 Albumin [Mass/Vol] 4.4 g/dL 3.9 - 4.9 g/dL [facility] ALP [Catalytic activity/Vol] 73 U/L 34 - 123 U/L [facility] ALT [Catalytic activity/Vol] 13 U/L 7 - 38 U/L [facility] Anion gap [Moles/Vol] 9 mmol/L 9 - 18 mmol/L [facility] AST [Catalytic activity/Vol] 14 U/L 13 - 35 U/L [facility] Bilirubin [Mass/Vol] 0.7 mg/dL 0.2 - 1 .3 mg/dL [facility] Calcium [Mass/Vol] 8.9 mg/dL 8.5 - 10. 2 mg/dL [facility] Chloride [Moles/Vol] 100 mmol/L 97 - 10 5 mmol/L [facility] CO2 [Moles/Vol] 25 mmol/L 22 - 30 mmol/L [facility] Creatinine [Mass/Vol] 0.65 mg/dL 0.58 - 0.96 mg/dL [facility] Estimated Glomerular Filtration Rate 91 mL/min/1.73m >=60 mL/min/1.7 3m [facility] Glucose [Mass/Vol] 85 mg/dL 74 - 99 mg/dL [facility] Potassium [Moles/Vol] 4.2 mmol/L 3.7 - 5.1 mmol/L [facility] Protein [Mass/Vol] 6.5 g/dL 6.3 - 8.0 g/dL [facility] Sodium [Moles/Vol] 134 mmol/L Low 136 - 144 mmol/L [facility] Urea nitrogen [Mass/Vol] 15 mg/dL 7 - 21 mg/dL [facility] No Panel Informationon 03-23 [facility] NM PET/CT SKULL-THIGH SUBSEQ UENTon 02-16-2022 [facility] Laboratory - Chemistry and C hemistry - challengeon 02-10-2022 T4 [Mass/Vol] 8.2 ug/dL 4.8-13.9 [facility] Work Phone: No Panel Informationon 02-10 Thyroid Stimulating Hormone (TSH) 0.85 uIU/mL 0.358-3.74 [facility] Work Phone: CBC W Auto Differential pane l (Bld)on 01-12-2022 Abs Immature Gran <0.10 k/uL [facility] Basophils (Bld) [#/Vol] 0.07 10*3/uL <0.11 k/uL [facility] Basophils/100 WBC (Bld) 1.0 % [facility] Differential cell count method Nom (Bld) Auto [facility] Eosinophils (Bld) [#/Vol] 0.08 10*3/uL <0.46 k/uL [facility] Eosinophils/100 WBC (Bld) 1.1 % [facility] Erythrocyte distribution width (RBC) [Ratio] 15.7 % High 11.5 - 15.0 % [facility] Hematocrit (Bld) [Volume fraction] 35.6 % Low 36.0 - 46.0 % [facility] Hemoglobin (Bld) [Mass/Vol] 12.0 g/dL 11.5 - 15.5 g/dL [facility] Immature Gran % 0.3 % [facility] Lymphocytes (Bld) [#/Vol] 1.70 10*3/uL 1.00 - 4.00 k/uL [facility] Lymphocytes/100 WBC (Bld) 23.9 % [facility] MCH (RBC) [Entitic mass] 29.9 pg 26.0 - 34.0 pg [facility] MCHC (RBC) [Mass/Vol] 33.7 g/dL 30.5 - 36.0 g/dL [facility] MCV (RBC) [Entitic vol] 88.6 fL 80.0 - 100.0 fL [facility] Monocytes (Bld) [#/Vol] 0.47 10*3/uL <0.87 k/uL [facility] Monocytes/100 WBC (Bld) 6.6 % [facility] Neutrophils (Bld) [#/Vol] 4.77 10*3/uL 1.45 - 7.50 k/uL [facility] Neutrophils/100 WBC (Bld) 67.1 % [facility] Nucleated RBC (Bld) [#/Vol] <0.01 k/uL [facility] Nucleated RBC/100 WBC (Bld) [Ratio] 0.0 /100 WBC [facility] Platelet mean volume (Bld) [Entitic vol] 9.4 fL 9.0 - 12.7 fL [facility] Platelets (Bld) [#/Vol] 340 10*3/uL 150 - 400 k/uL [facility] RBC (Bld) [#/Vol] 4.02 10*6/uL 3.90 - 5.20 m/uL [facility] WBC (Bld) [#/Vol] 7.11 10*3/uL 3.70 - 11.00 k/uL [facility] Comprehensive metabolic 2000 panelon 01-12-2022 Albumin [Mass/Vol] 4.1 g/dL 3.9 - 4.9 g/dL [facility] ALP [Catalytic activity/Vol] 82 U/L 34 - 123 U/L [facility] ALT [Catalytic activity/Vol] 18 U/L 7 - 38 U/L [facility] Anion gap [Moles/Vol] 9 mmol/L 9 - 18 mmol/L [facility] AST [Catalytic activity/Vol] 17 U/L 13 - 35 U/L [facility] Bilirubin [Mass/Vol] 0.4 mg/dL 0.2 - 1 .3 mg/dL [facility] Calcium [Mass/Vol] 8.3 mg/dL Low 8.5 - 10. 2 mg/dL [facility] Chloride [Moles/Vol] 100 mmol/L 97 - 10 5 mmol/L [facility] CO2 [Moles/Vol] 22 mmol/L 22 - 30 mmol/L [facility] Creatinine [Mass/Vol] 0.67 mg/dL 0.58 - 0.96 mg/dL [facility] Estimated Glomerular Filtration Rate 91 mL/min/1.73m >=60 mL/min/1.7 3m [facility] Glucose [Mass/Vol] 84 mg/dL 74 - 99 mg/dL [facility] Potassium [Moles/Vol] 4.6 mmol/L 3.7 - 5.1 mmol/L [facility] Protein [Mass/Vol] 6.4 g/dL 6.3 - 8.0 g/dL [facility] Sodium [Moles/Vol] 131 mmol/L Low 136 - 144 mmol/L [facility] Urea nitrogen [Mass/Vol] 15 mg/dL 7 - 21 mg/dL [facility] No Panel Informationon 01-11 [facility] CBC W Auto Differential pane l (Bld)on 12-18-2021 Abs Immature Gran <0.03 <0.10 k/uL [facility] Basophils (Bld) [#/Vol] 0.05 10*3/uL <0.11 k/uL [facility] Basophils/100 WBC (Bld) 0.8 % [facility] Differential cell count method Nom (Bld) Auto [facility] Eosinophils (Bld) [#/Vol] 0.06 10*3/uL <0.46 k/uL [facility] Eosinophils/100 WBC (Bld) 1.0 % [facility] Erythrocyte distribution width (RBC) [Ratio] 15.5 % High 11.5 - 15.0 % [facility] Hematocrit (Bld) [Volume fraction] 36.2 % 36.0 - 46.0 % [facility] Hemoglobin (Bld) [Mass/Vol] 12.6 g/dL 11.5 - 15.5 g/dL [facility] Immature Gran % 0.3 % [facility] Lymphocytes (Bld) [#/Vol] 1.95 10*3/uL 1.00 - 4.00 k/uL [facility] Lymphocytes/100 WBC (Bld) 32.7 % [facility] MCH (RBC) [Entitic mass] 30.4 pg 26.0 - 34.0 pg [facility] MCHC (RBC) [Mass/Vol] 34.8 g/dL 30.5 - 36.0 g/dL [facility] MCV (RBC) [Entitic vol] 87.2 fL 80.0 - 100.0 fL [facility] Monocytes (Bld) [#/Vol] 0.40 10*3/uL <0.87 k/uL [facility] Monocytes/100 WBC (Bld) 6.7 % [facility] Neutrophils (Bld) [#/Vol] 3.49 10*3/uL 1.45 - 7.50 k/uL [facility] Neutrophils/100 WBC (Bld) 58.5 % [facility] Nucleated RBC (Bld) [#/Vol] 10*3/uL <0.01 k/uL [facility] Nucleated RBC/100 WBC (Bld) [Ratio] 0.0 /100 WBC [facility] Platelet mean volume (Bld) [Entitic vol] 9.3 fL 9.0 - 12.7 fL [facility] Platelets (Bld) [#/Vol] 378 10*3/uL 150 - 400 k/uL [facility] RBC (Bld) [#/Vol] 4.15 10*6/uL 3.90 - 5.20 m/uL [facility] WBC (Bld) [#/Vol] 5.97 10*3/uL 3.70 - 11.00 k/uL [facility] Comprehensive metabolic 2000 panelon 12-18-2021 Albumin [Mass/Vol] 4.0 g/dL 3.9 - 4.9 g/dL [facility] ALP [Catalytic activity/Vol] 67 U/L 34 - 123 U/L [facility] ALT [Catalytic activity/Vol] 15 U/L 7 - 38 U/L [facility] Anion gap [Moles/Vol] 11 mmol/L 9 - 18 mmol/L [facility] AST [Catalytic activity/Vol] 16 U/L 13 - 35 U/L [facility] Bilirubin [Mass/Vol] 0.9 mg/dL 0.2 - 1 .3 mg/dL [facility] Calcium [Mass/Vol] 8.6 mg/dL 8.5 - 10. 2 mg/dL [facility] Chloride [Moles/Vol] 96 mmol/L Low 97 - 10 5 mmol/L [facility] CO2 [Moles/Vol] 24 mmol/L 22 - 30 mmol/L [facility] Creatinine [Mass/Vol] 0.63 mg/dL 0.58 - 0.96 mg/dL [facility] Estimated Glomerular Filtration Rate 92 mL/min/1.73m >=60 mL/min/1.7 3m [facility] Glucose [Mass/Vol] 83 mg/dL 74 - 99 mg/dL [facility] Potassium [Moles/Vol] 4.0 mmol/L 3.7 - 5.1 mmol/L [facility] Protein [Mass/Vol] 6.5 g/dL 6.3 - 8.0 g/dL [facility] Sodium [Moles/Vol] 131 mmol/L Low 136 - 144 mmol/L [facility] Urea nitrogen [Mass/Vol] 13 mg/dL 7 - 21 mg/dL [facility] MRI LIVER WO/W IVCONon 12-16 MRI LIVER WO/W IVCON * * *Final Report* * * DATE OF EXAM: Dec 16 2021 3:04PM [facility] 0727 - MRI LIVER WO/W IVCON / PROCEDURE REASON: Liver metastases (HCC) * * * * Physician Interpretation * * * * RESULT: MRI ABDOMEN WITHOUT AND WITH IV CONTRAST CLINICAL HISTORY: Breast cancer with liver metastases. Follow-up study. TECHNIQUE: Magnet: 1.5T scanner. Multiplanar MRI of the abdomen with multiple sequences, performed before and after IV contrast. Contrast: Intravenous: 13 ml of Dotarem COMPARISON: CT abdomen pelvis 11/03/2021, liver MRI 08/07/2020 RESULT: Liver: Normal morphology. No hepatic steatosis. Multifocal hepatic lesions with minimal peripheral enhancement, significant decrease in size and degree of restricted diffusion from the prior MRI of 08/07/2020, and stable to slight decrease in size from the most recent CT of 11/03/2021, for example: * 2.9 x 1.2 cm bilobed lesion in the right hepatic dome (12:16), previously 3.1 x 1.2 cm * Stable 2.3 x 1.4 cm segment 7 lesion (12:26) No new hepatic mass. Biliary: No bile duct dilation. Gallbladder is normal. Spleen: No mass. No splenomegaly. Pancreas: No mass or duct dilation. Adrenals: No mass. Kidneys: No solid or cystic mass. No hydronephrosis. GI: No dilated bowel or wall thickening along imaged segments. Lymph nodes: No abdominal lymphadenopathy. Mesentery / Peritoneum / Retroperitoneum: No ascites or mass. Vasculature: The celiac axis and SMA are patent. The portal vein and branches, splenic vein, SMV, and hepatic veins are patent. No abdominal aortic aneurysm. Bones/Soft Tissues: Left abdominal wall hernia containing a nonobstructed loop of descending colon. Lower chest: Postsurgical changes of the left breast. IMPRESSION: Hepatic metastases, markedly decreased in size from prior MRI of 08/07/2020, and stable to slightly decreased in size from 11/03/2021. Transcribed Using Voice Recognition Transcribe Date/Time: Dec 21 2021 10:45A Dictated by: ROX ROTHMAN MD This examination was interpreted and the report reviewed and electronically signed by: ROX ROTHMAN MD on Dec 21 2021 11:29AM EST [id number] Normal [facility] CBC W Auto Differential pane l (Bld)on 12-01-2021 Abs Immature Gran 0.03 k/uL <0.10 k/uL [facility] Basophils (Bld) [#/Vol] 0.03 10*3/uL <0.11 k/uL [facility] Basophils/100 WBC (Bld) 0.3 % [facility] Differential cell count method Nom (Bld) Auto [facility] Eosinophils (Bld) [#/Vol] 0.07 10*3/uL <0.46 k/uL [facility] Eosinophils/100 WBC (Bld) 0.7 % [facility] Erythrocyte distribution width (RBC) [Ratio] 15.5 % High 11.5 - 15.0 % [facility] Hematocrit (Bld) [Volume fraction] 37.0 % 36.0 - 46.0 % [facility] Hemoglobin (Bld) [Mass/Vol] 12.4 g/dL 11.5 - 15.5 g/dL [facility] Immature Gran % 0.3 % [facility] Lymphocytes (Bld) [#/Vol] 2.35 10*3/uL 1.00 - 4.00 k/uL [facility] Lymphocytes/100 WBC (Bld) 24.8 % [facility] MCH (RBC) [Entitic mass] 29.4 pg 26.0 - 34.0 pg [facility] MCHC (RBC) [Mass/Vol] 33.5 g/dL 30.5 - 36.0 g/dL [facility] MCV (RBC) [Entitic vol] 87.7 fL 80.0 - 100.0 fL [facility] Monocytes (Bld) [#/Vol] 0.55 10*3/uL <0.87 k/uL [facility] Monocytes/100 WBC (Bld) 5.8 % [facility] Neutrophils (Bld) [#/Vol] 6.44 10*3/uL 1.45 - 7.50 k/uL [facility] Neutrophils/100 WBC (Bld) 68.1 % [facility] Nucleated RBC (Bld) [#/Vol] 10*3/uL <0.01 k/uL [facility] Nucleated RBC/100 WBC (Bld) [Ratio] 0.0 /100 WBC [facility] Platelet mean volume (Bld) [Entitic vol] 9.1 fL 9.0 - 12.7 fL [facility] Platelets (Bld) [#/Vol] 327 10*3/uL 150 - 400 k/uL [facility] RBC (Bld) [#/Vol] 4.22 10*6/uL 3.90 - 5.20 m/uL [facility] WBC (Bld) [#/Vol] 9.47 10*3/uL 3.70 - 11.00 k/uL [facility] Comprehensive metabolic 2000 panelon 12-01-2021 Albumin [Mass/Vol] 4.0 g/dL 3.9 - 4.9 g/dL [facility] ALP [Catalytic activity/Vol] 73 U/L 34 - 123 U/L [facility] ALT [Catalytic activity/Vol] 16 U/L 7 - 38 U/L [facility] Anion gap [Moles/Vol] 12 mmol/L 9 - 18 mmol/L [facility] AST [Catalytic activity/Vol] 13 U/L 13 - 35 U/L [facility] Bilirubin [Mass/Vol] 0.5 mg/dL 0.2 - 1 .3 mg/dL [facility] Calcium [Mass/Vol] 8.4 mg/dL Low 8.5 - 10. 2 mg/dL [facility] Chloride [Moles/Vol] 98 mmol/L 97 - 10 5 mmol/L [facility] CO2 [Moles/Vol] 23 mmol/L 22 - 30 mmol/L [facility] Creatinine [Mass/Vol] 0.71 mg/dL 0.58 - 0.96 mg/dL [facility] Estimated Glomerular Filtration Rate 88 mL/min/1.73m >=60 mL/min/1.7 3m [facility] Glucose [Mass/Vol] 103 mg/dL High 74 - 99 mg/dL [facility] Potassium [Moles/Vol] 4.4 mmol/L 3.7 - 5.1 mmol/L [facility] Protein [Mass/Vol] 6.5 g/dL 6.3 - 8.0 g/dL [facility] Sodium [Moles/Vol] 133 mmol/L Low 136 - 144 mmol/L [facility] Urea nitrogen [Mass/Vol] 22 mg/dL High 7 - 21 mg/dL [facility] CBC W Auto Differential pane l (Bld)on 11-03-2021 Abs Immature Gran <0.03 <0.10 k/uL [facility] Basophils (Bld) [#/Vol] 0.08 10*3/uL <0.11 k/uL [facility] Basophils/100 WBC (Bld) 1.5 % [facility] Differential cell count method Nom (Bld) Auto [facility] Eosinophils (Bld) [#/Vol] 0.16 10*3/uL <0.46 k/uL [facility] Eosinophils/100 WBC (Bld) 3.1 % [facility] Erythrocyte distribution width (RBC) [Ratio] 15.2 % High 11.5 - 15.0 % [facility] Hematocrit (Bld) [Volume fraction] 36.1 % 36.0 - 46.0 % [facility] Hemoglobin (Bld) [Mass/Vol] 12.0 g/dL 11.5 - 15.5 g/dL [facility] Immature Gran % 0.4 % [facility] Lymphocytes (Bld) [#/Vol] 1.66 10*3/uL 1.00 - 4.00 k/uL [facility] Lymphocytes/100 WBC (Bld) 32.0 % [facility] MCH (RBC) [Entitic mass] 29.3 pg 26.0 - 34.0 pg [facility] MCHC (RBC) [Mass/Vol] 33.2 g/dL 30.5 - 36.0 g/dL [facility] MCV (RBC) [Entitic vol] 88.0 fL 80.0 - 100.0 fL [facility] Monocytes (Bld) [#/Vol] 0.31 10*3/uL <0.87 k/uL [facility] Monocytes/100 WBC (Bld) 6.0 % [facility] Neutrophils (Bld) [#/Vol] 2.96 10*3/uL 1.45 - 7.50 k/uL [facility] Neutrophils/100 WBC (Bld) 57.0 % [facility] Nucleated RBC (Bld) [#/Vol] 10*3/uL <0.01 k/uL [facility] Nucleated RBC/100 WBC (Bld) [Ratio] 0.0 /100 WBC [facility] Platelet mean volume (Bld) [Entitic vol] 9.7 fL 9.0 - 12.7 fL [facility] Platelets (Bld) [#/Vol] 320 10*3/uL 150 - 400 k/uL [facility] RBC (Bld) [#/Vol] 4.10 10*6/uL 3.90 - 5.20 m/uL [facility] WBC (Bld) [#/Vol] 5.19 10*3/uL 3.70 - 11.00 k/uL [facility] Comprehensive metabolic 2000 panelon 11-03-2021 Albumin [Mass/Vol] 4.1 g/dL 3.9 - 4.9 g/dL [facility] ALP [Catalytic activity/Vol] 67 U/L 34 - 123 U/L [facility] ALT [Catalytic activity/Vol] 15 U/L 7 - 38 U/L [facility] Anion gap [Moles/Vol] 12 mmol/L 9 - 18 mmol/L [facility] AST [Catalytic activity/Vol] 19 U/L 13 - 35 U/L [facility] Bilirubin [Mass/Vol] 0.7 mg/dL 0.2 - 1 .3 mg/dL [facility] Calcium [Mass/Vol] 8.8 mg/dL 8.5 - 10. 2 mg/dL [facility] Chloride [Moles/Vol] 102 mmol/L 97 - 10 5 mmol/L [facility] CO2 [Moles/Vol] 24 mmol/L 22 - 30 mmol/L [facility] Creatinine [Mass/Vol] 0.73 mg/dL 0.58 - 0.96 mg/dL [facility] Estimated Glomerular Filtration Rate 85 mL/min/1.73m >=60 mL/min/1.7 3m [facility] Glucose [Mass/Vol] 90 mg/dL 74 - 99 mg/dL [facility] Potassium [Moles/Vol] 4.3 mmol/L 3.7 - 5.1 mmol/L [facility] Protein [Mass/Vol] 6.6 g/dL 6.3 - 8.0 g/dL [facility] Sodium [Moles/Vol] 138 mmol/L 136 - 144 mmol/L [facility] Urea nitrogen [Mass/Vol] 13 mg/dL 7 - 21 mg/dL [facility] No Panel Informationon 11-03 [facility] CBC W Auto Differential pane l (Bld)on 09-25-2021 Abs Immature Gran <0.03 <0.10 k/uL [facility] Basophils (Bld) [#/Vol] 0.08 10*3/uL <0.11 k/uL [facility] Basophils/100 WBC (Bld) 1.4 % [facility] Differential cell count method Nom (Bld) Auto [facility] Eosinophils (Bld) [#/Vol] 0.13 10*3/uL <0.46 k/uL [facility] Eosinophils/100 WBC (Bld) 2.3 % [facility] Erythrocyte distribution width (RBC) [Ratio] 15.2 % High 11.5 - 15.0 % [facility] Hematocrit (Bld) [Volume fraction] 37.2 % 36.0 - 46.0 % [facility] Hemoglobin (Bld) [Mass/Vol] 12.3 g/dL 11.5 - 15.5 g/dL [facility] Immature Gran % 0.2 % [facility] Lymphocytes (Bld) [#/Vol] 1.88 10*3/uL 1.00 - 4.00 k/uL [facility] Lymphocytes/100 WBC (Bld) 33.5 % [facility] MCH (RBC) [Entitic mass] 29.6 pg 26.0 - 34.0 pg [facility] MCHC (RBC) [Mass/Vol] 33.1 g/dL 30.5 - 36.0 g/dL [facility] MCV (RBC) [Entitic vol] 89.4 fL 80.0 - 100.0 fL [facility] Monocytes (Bld) [#/Vol] 0.34 10*3/uL <0.87 k/uL [facility] Monocytes/100 WBC (Bld) 6.1 % [facility] Neutrophils (Bld) [#/Vol] 3.17 10*3/uL 1.45 - 7.50 k/uL [facility] Neutrophils/100 WBC (Bld) 56.5 % [facility] Nucleated RBC (Bld) [#/Vol] 10*3/uL <0.01 k/uL [facility] Nucleated RBC/100 WBC (Bld) [Ratio] 0.0 /100 WBC [facility] Platelet mean volume (Bld) [Entitic vol] 9.8 fL 9.0 - 12.7 fL [facility] Platelets (Bld) [#/Vol] 321 10*3/uL 150 - 400 k/uL [facility] RBC (Bld) [#/Vol] 4.16 10*6/uL 3.90 - 5.20 m/uL [facility] WBC (Bld) [#/Vol] 5.61 10*3/uL 3.70 - 11.00 k/uL [facility] Comprehensive metabolic 2000 panelon 09-25-2021 Albumin [Mass/Vol] 4.2 g/dL 3.9 - 4.9 g/dL [facility] ALP [Catalytic activity/Vol] 67 U/L 34 - 123 U/L [facility] ALT [Catalytic activity/Vol] 13 U/L 7 - 38 U/L [facility] Anion gap [Moles/Vol] 11 mmol/L 9 - 18 mmol/L [facility] AST [Catalytic activity/Vol] 16 U/L 13 - 35 U/L [facility] Bilirubin [Mass/Vol] 0.8 mg/dL 0.2 - 1 .3 mg/dL [facility] Calcium [Mass/Vol] 9.1 mg/dL 8.5 - 10. 2 mg/dL [facility] Chloride [Moles/Vol] 101 mmol/L 97 - 10 5 mmol/L [facility] CO2 [Moles/Vol] 24 mmol/L 22 - 30 mmol/L [facility] Creatinine [Mass/Vol] 0.72 mg/dL 0.58 - 0.96 mg/dL [facility] Estimated Glomerular Filtration Rate 87 mL/min/1.73m >=60 mL/min/1.7 3m [facility] Glucose [Mass/Vol] 96 mg/dL 74 - 99 mg/dL [facility] Potassium [Moles/Vol] 4.0 mmol/L 3.7 - 5.1 mmol/L [facility] Protein [Mass/Vol] 7.0 g/dL 6.3 - 8.0 g/dL [facility] Sodium [Moles/Vol] 136 mmol/L 136 - 144 mmol/L [facility] Urea nitrogen [Mass/Vol] 14 mg/dL 7 - 21 mg/dL [facility] CBC W Auto Differential pane l (Bld)on 09-07-2021 Abs Immature Gran <0.03 <0.10 k/uL [facility] Basophils (Bld) [#/Vol] 0.07 10*3/uL <0.11 k/uL [facility] Basophils/100 WBC (Bld) 1.0 % [facility] Differential cell count method Nom (Bld) Auto [facility] Eosinophils (Bld) [#/Vol] 0.10 10*3/uL <0.46 k/uL [facility] Eosinophils/100 WBC (Bld) 1.4 % [facility] Erythrocyte distribution width (RBC) [Ratio] 15.6 % High 11.5 - 15.0 % [facility] Hematocrit (Bld) [Volume fraction] 35.4 % Low 36.0 - 46.0 % [facility] Hemoglobin (Bld) [Mass/Vol] 12.0 g/dL 11.5 - 15.5 g/dL [facility] Immature Gran % 0.1 % [facility] Lymphocytes (Bld) [#/Vol] 2.56 10*3/uL 1.00 - 4.00 k/uL [facility] Lymphocytes/100 WBC (Bld) 36.4 % [facility] MCH (RBC) [Entitic mass] 29.7 pg 26.0 - 34.0 pg [facility] MCHC (RBC) [Mass/Vol] 33.9 g/dL 30.5 - 36.0 g/dL [facility] MCV (RBC) [Entitic vol] 87.6 fL 80.0 - 100.0 fL [facility] Monocytes (Bld) [#/Vol] 0.52 10*3/uL <0.87 k/uL [facility] Monocytes/100 WBC (Bld) 7.4 % [facility] Neutrophils (Bld) [#/Vol] 3.78 10*3/uL 1.45 - 7.50 k/uL [facility] Neutrophils/100 WBC (Bld) 53.7 % [facility] Nucleated RBC (Bld) [#/Vol] 10*3/uL <0.01 k/uL [facility] Nucleated RBC/100 WBC (Bld) [Ratio] 0.0 /100 WBC [facility] Platelet mean volume (Bld) [Entitic vol] 9.4 fL 9.0 - 12.7 fL [facility] Platelets (Bld) [#/Vol] 318 10*3/uL 150 - 400 k/uL [facility] RBC (Bld) [#/Vol] 4.04 10*6/uL 3.90 - 5.20 m/uL [facility] WBC (Bld) [#/Vol] 7.04 10*3/uL 3.70 - 11.00 k/uL [facility] Comprehensive metabolic 2000 panelon 09-07-2021 Albumin [Mass/Vol] 4.3 g/dL 3.9 - 4.9 g/dL [facility] ALP [Catalytic activity/Vol] 68 U/L 34 - 123 U/L [facility] ALT [Catalytic activity/Vol] 14 U/L 7 - 38 U/L [facility] Anion gap [Moles/Vol] 9 mmol/L 9 - 18 mmol/L [facility] AST [Catalytic activity/Vol] 16 U/L 13 - 35 U/L [facility] Bilirubin [Mass/Vol] 0.5 mg/dL 0.2 - 1 .3 mg/dL [facility] Calcium [Mass/Vol] 8.8 mg/dL 8.5 - 10. 2 mg/dL [facility] Chloride [Moles/Vol] 100 mmol/L 97 - 10 5 mmol/L [facility] CO2 [Moles/Vol] 25 mmol/L 22 - 30 mmol/L [facility] Creatinine [Mass/Vol] 0.64 mg/dL 0.58 - 0.96 mg/dL [facility] Estimated Glomerular Filtration Rate 92 mL/min/1.73m >=60 mL/min/1.7 3m [facility] Glucose [Mass/Vol] 91 mg/dL 74 - 99 mg/dL [facility] Potassium [Moles/Vol] 4.1 mmol/L 3.7 - 5.1 mmol/L [facility] Protein [Mass/Vol] 6.5 g/dL 6.3 - 8.0 g/dL [facility] Sodium [Moles/Vol] 134 mmol/L Low 136 - 144 mmol/L [facility] Urea nitrogen [Mass/Vol] 15 mg/dL 7 - 21 mg/dL [facility] T4 FREE/FREE THYROXon 2020 Free T4 [Mass/Vol] 1.4 ng/dL 0.9 - 1.7 ng/dL [facility] TSH BLDon 03-02-2021 TSH Qn 4.980 m[IU]/L High 0.270 - 4.200 uU/mL [facility] CT BIOPSY LIVERon 08-21-2020 CT BIOPSY LIVER Final Report DATE OF EXAM: Aug 21 2020 1:21PM [facility] 2017 - CT BIOPSY LIVER / PROCEDURE REASON: mets to liver Physician Interpretation EXAM TITLE: CT GUIDED BIOPSY OF RIGHT HEPATIC MASS CLINICAL INDICATION/HISTORY: The patient is a 75-year-old female with multiple liver masses. CT Radiation dose: Integrated dose-length product (DLP) for this visit = [address] Dose Reduction Employed: Automated exposure control (AEC) was used. TECHNIQUE: Informed consent was obtained from the patient. The risks, benefits, and alternatives to the procedure were explained. The patient agrees to the procedure. The patient was evaluated for the safety and appropriateness of conscious sedation and the Moderate Sedation Record was completed. The patient was sedated with intravenous Fentanyl and Versed administered by the trained independent radiology nurse observer. The patient's vital signs were monitored during the procedure by the trained independent radiology nurse observer. Total intra-service work encounter time was approximately 0 hours and 30 minutes. The patient was placed in a supine position and with CT guidance an appropriate skin entrance site was identified, prepped, and anesthetized. A guiding needle was passed into the lesion and an 18-gauge core biopsy needle was passed through the outer guiding needle and multiple passes with the core biopsy needle were performed. Gelfoam slurry was injected in the needle tract. Specimens were placed in formalin. The specimen was sent for histology. There were no apparent complications. The patient was discharged from the radiology department and will be observed in the POD. FINDINGS: The posterior right hepatic mass was identified on imaging. A safe tract for biopsy was chosen. Post procedure imaging demonstrates no complication. IMPRESSION: Technically successful and uncomplicated CT-guided core biopsy of right hepatic mass. Specimen was sent for histology. Home Care Liaison: [facility] Transcribe Date/Time: Aug 21 2020 1:45P Dictated by : GENARO COBB MD This examination was interpreted and the report reviewed and electronically signed by: GENARO COBB MD on Aug 21 2020 1:48PM EST Normal [facility] Vital Signs Date Time Vital Sign Value Performing Clinician Facility 02-08-2025 10:00-0400 Body height 154.9 cm Treatment Wstr Work Phone: [facility] 02-08-2025 10:00-0400 Body mass index (BMI) [Ratio] 27.79 kg/m2 [facility] Work Phone[facility] [facility] 02-[facility]2025 10:00-0400 Body temperature 97.5 [degF] Treatment Wstr Work Phone: [facility] 02-08-2025 10:00-0400 Body weight 66.68 kg Treatment Wstr Work Phone: [facility] 02-08-2025 10:00-0400 Diastolic blood pressure 77 mm[Hg] Treatment Wstr Work Phone: [facility] 02-08-2025 10:00-0400 Heart rate 89 /min Treatment Wstr Work Phone: [facility] 02-08-2025 10:00-0400 Systolic blood pressure 146 mm[Hg] Treatment Wstr Work Phone: [facility] 01-23-2025 11:16-0400 Body height 155.1 cm Guerrero Vasqeuz III, MD Work Phone: [facility] 01-23-2025 11:16-0400 Body mass index (BMI) [Ratio] 27.61 kg/m2 Guerrero Vasquez III, MD Work Phone: [facility] 01-23-2025 11:16-0400 Body temperature 97.2 [degF] Guerrero Vasquez III, MD Work Phone: [facility] 01-23-2025 11:16-0400 Body weight 66.4 kg Guerrero Vasquez III, MD Work Phone: [facility] 01-23-2025 11:16-0400 Diastolic blood pressure 66 mm[Hg] Guerrero Vasquez III, MD Work Phone: [facility] 01-23-2025 11:16-0400 Heart rate 75 /min Guerrero Vasquez III, MD Work Phone: [facility] 01-23-2025 11:16-0400 Respiratory rate 18 /min Guerrero Vasquez III, MD Work Phone: [facility] 01-23-2025 11:16-0400 SaO2% (BldA) [Mass fraction] 99 % Guerrero Vasquez III, MD Work Phone: [facility] 01-23-2025 11:16-0400 Systolic blood pressure 117 mm[Hg] Guerrero Vasquez III, MD Work Phone: [facility] 01-18-2025 10:46-0400 Body mass index (BMI) [Ratio] 27.79 kg/m2 Treatment Wstr Work Phone: [facility] 01-18-2025 10:46-0400 Body temperature 97.81 [degF] Treatment Wstr Work Phone: [facility] 01-18-2025 10:46-0400 Body weight 66.68 kg Treatment Wstr Work Phone: [facility] 01-18-2025 10:46-0400 Diastolic blood pressure 76 mm[Hg] Treatment Wstr Work Phone: [facility] 01-18-2025 10:46-0400 Heart rate 74 /min Treatment Wstr Work Phone: [facility] 01-18-2025 10:46-0400 Respiratory rate 18 /min Treatment Wstr Work Phone: [facility] 01-18-2025 10:46-0400 SaO2% (BldA) [Mass fraction] 98 % Treatment Wstr Work Phone: [facility] 01-18-2025 10:46-0400 Systolic blood pressure 133 mm[Hg] Treatment Wstr Work Phone: [facility] 12-28-2024 11:00-0400 Body temperature 97.11 [degF] Treatment Wstr Work Phone: [facility] 12-28-2024 11:00-0400 Diastolic blood pressure 75 mm[Hg] Treatment Wstr Work Phone: [facility] 12-28-2024 11:00-0400 Heart rate 80 /min Treatment Wstr Work Phone: [facility] 12-28-2024 11:00-0400 Systolic blood pressure 127 mm[Hg] Treatment Wstr Work Phone: [facility] 12-28-2024 10:00-0400 Body height 154.9 cm Treatment Wstr Work Phone: [facility] 12-28-2024 10:00-0400 Body mass index (BMI) [Ratio] 28.26 kg/m2 Treatment Wstr Work Phone: [facility] 12-28-2024 10:00-0400 Body weight 67.8 kg Treatment Wstr Work Phone: [facility] 12-06-2024 09:00-0400 Body temperature 96.69 [degF] Treatment Wstr Work Phone: [facility] 12-06-2024 09:00-0400 Diastolic blood pressure 78 mm[Hg] Treatment Wstr Work Phone: [facility] 12-06-2024 09:00-0400 Heart rate 79 /min Treatment Wstr Work Phone: [facility] 12-06-2024 09:00-0400 SaO2% (BldA) [Mass fraction] 97 % Treatment Wstr Work Phone: [facility] 12-06-2024 09:00-0400 Systolic blood pressure 138 mm[Hg] Treatment Wstr Work Phone: [facility] 12-05-2024 14:08-0400 Body mass index (BMI) [Ratio] 28.24 kg/m2 Domenic Kelley DUTY MANAGER.GREASE REFINER OPERATOR Work Phone: [facility] 12-05-2024 14:08-0400 Body temperature 97.7 [degF] Domenic Kelley DUTY MANAGER.GREASE REFINER OPERATOR Work Phone: [facility] 12-05-2024 14:08-0400 Body weight 67.8 kg Domenic Kelley DUTY MANAGER.GREASE REFINER OPERATOR Work Phone: [facility] 12-05-2024 14:08-0400 Diastolic blood pressure 69 mm[Hg] Prospect Kelley DUTY MANAGER.GREASE REFINER OPERATOR Work Phone: [facility] 12-05-2024 14:08-0400 Heart rate 75 /min Domenic Kelley DUTY MANAGER.GREASE REFINER OPERATOR Work Phone: [facility] 12-05-2024 14:08-0400 SaO2% (BldA) [Mass fraction] 98 % Prospect Kelley DUTY MANAGER.GREASE REFINER OPERATOR Work Phone: [facility] 12-05-2024 14:08-0400 Systolic blood pressure 106 mm[Hg] Domenic Kelley DUTY MANAGER.GREASE REFINER OPERATOR Work Phone: [facility] 12-04-2024 11:11-0400 Body mass index (BMI) [Ratio] 28.06 kg/m2 Lab/Port Wstr Work Phone: [facility] 12-04-2024 11:11-0400 Body weight 67.36 kg Lab/Port Wstr Work Phone: [facility] 12-01-2024 09:01-0400 Body temperature 98.2 [degF] Dr. Tami Chang MD Work Phone: [facility] 12-01-2024 09:01-0400 Diastolic blood pressure 58 mm[Hg] Dr. Tami Chang MD Work Phone: [facility] 12-01-2024 09:01-0400 Heart rate 86 /min Dr. Tami Chang MD Work Phone: [facility] 12-01-2024 09:01-0400 Respiratory rate 16 /min Dr. Tami Chang MD Work Phone: [facility] 12-01-2024 09:01-0400 SaO2% (BldA) [Mass fraction] 97 % Dr. Tami Chang MD Work Phone: [facility] 12-01-2024 09:01-0400 Systolic blood pressure 102 mm[Hg] Dr. Tami Chang MD Work Phone: [facility] 11-28-2024 08:02-0400 Body height 154.9 cm Guerrero Vasquez III, MD Work Phone: [facility] 11-28-2024 08:02-0400 Body mass index (BMI) [Ratio] 28.08 kg/m2 Guerrero Vasquez III, MD Work Phone: [facility] 11-28-2024 08:02-0400 Body temperature 97.3 [degF] Guerrero Vasquez III, MD Work Phone: [facility] 11-28-2024 08:02-0400 Body weight 67.4 kg Guerrero Vasquez III, MD Work Phone: [facility] 11-28-2024 08:02-0400 Diastolic blood pressure 58 mm[Hg] Guerrero Vasquez III, MD Work Phone: [facility] 11-28-2024 08:02-0400 Heart rate 76 /min Guerrero Vasquez III, MD Work Phone: [facility] 11-28-2024 08:02-0400 Respiratory rate 16 /min Guerrero Vasquez III, MD Work Phone: [facility] 11-28-2024 08:02-0400 SaO2% (BldA) [Mass fraction] 98 % Guerrero Vasquez III, MD Work Phone: [facility] 11-28-2024 08:02-0400 Systolic blood pressure 126 mm[Hg] Guerrero Vasquez III, MD Work Phone: [facility] 11-20-2024 10:23-0400 Body temperature 96.8 [degF] Dr. Tami Chang MD Work Phone: [facility] 11-20-2024 10:23-0400 Diastolic blood pressure 72 mm[Hg] Dr. Tami Chang MD Work Phone: [facility] 11-20-2024 10:23-0400 Heart rate 68 /min Dr. Tami Chang MD Work Phone: [facility] 11-20-2024 10:23-0400 Respiratory rate 16 /min Dr. Tami Chang MD Work Phone: [facility] 11-20-2024 10:23-0400 Systolic blood pressure 144 mm[Hg] Dr. Tami Chang MD Work Phone: [facility] 11-20-2024 09:13-0400 Body height 154.[address] Tami Chang MD Work Phone: [facility] 11-20-2024 09:13-0400 SaO2% (BldA) [Mass fraction] 96 % Dr. Tami Chang MD Work Phone: [facility] 11-16-2024 13:20-0400 Body mass index (BMI) [Ratio] 28.25 kg/m2 Treatment Wstr Work Phone: [facility] 11-16-2024 13:20-0400 Body temperature 97.81 [degF] Treatment Wstr Work Phone: [facility] 11-16-2024 13:20-0400 Body weight 67.81 kg Treatment Wstr Work Phone: [facility] 11-16-2024 13:20-0400 Diastolic blood pressure 71 mm[Hg] Treatment Wstr Work Phone: [facility] 11-16-2024 13:20-0400 Heart rate 79 /min Treatment Wstr Work Phone: [facility] 11-16-2024 13:20-0400 SaO2% (BldA) [Mass fraction] 96 % Treatment Wstr Work Phone: [facility] 11-16-2024 13:20-0400 Systolic blood pressure 130 mm[Hg] Treatment Wstr Work Phone: [facility] 10-26-2024 09:16-0400 Body height 154.[address] aTmi Chang MD Work Phone: [facility] 10-26-2024 09:16-0400 Body mass index (BMI) [Ratio] 27 kg/m2 Dr. Tami Chang MD Work Phone: [facility] 10-26-2024 09:16-0400 Body temperature 96.8 [degF] Dr. Tami Chang MD Work Phone: [facility] 10-26-2024 09:16-0400 Body weight 64.[address] Tami Chang MD Work Phone: [facility] 10-26-2024 09:16-0400 Diastolic blood pressure 59 mm[Hg] Dr. Tami Chang MD Work Phone: [facility] 10-26-2024 09:16-0400 Heart rate 89 /min Dr. Tami Chang MD Work Phone: [facility] 10-26-2024 09:16-0400 Respiratory rate 16 /min Dr. Tami Chang MD Work Phone: [facility] 10-26-2024 09:16-0400 SaO2% (BldA) [Mass fraction] 97 % Dr. Tami Chang MD Work Phone: 4(652)276-731121 [place] [address] 10-26-2024 09:16-0400 Systolic blood pressure 136 mm[Hg] Dr. Tami Chang MD Work Phone: [facility] 10-19-2024 10:44-0400 Body temperature 97.3 [degF] Dr. Tami Chang MD Work Phone: 6(384)122-772821 [place] [address] 10-19-2024 10:44-0400 Diastolic blood pressure 63 mm[Hg] Dr. Tami Chang MD Work Phone: 8(745)085-522521 [place] [address] 10-19-2024 10:44-0400 Heart rate 71 /min Dr. Tami Chang MD Work Phone: 4(206)776-239678 [place] [address] 10-19-2024 10:44-0400 Respiratory rate 16 /min Dr. Tami Chang MD Work Phone: 4(170)455-597278 [place] [address] 10-19-2024 10:44-0400 Systolic blood pressure 139 mm[Hg] Dr. Tami Chang MD Work Phone: 4(907)858-286721 [place] [address] 10-19-2024 09:11-0400 Body height 154.[address] Tami Chang MD Work Phone: 9(340)286-886828 [address] 10-19-2024 09:11-0400 Body mass index (BMI) [Ratio] 27.3 kg/m2 Dr. Tami Chang MD Work Phone: 8(214)277-739721 [place] [address] 10-19-2024 09:11-0400 Body weight 65.[address] Tami Chang MD Work Phone: [facility] 10-19-2024 09:11-0400 SaO2% (BldA) [Mass fraction] 98 % Dr. Tami Chang MD Work Phone: [facility] 09-14-2024 13:36-0400 Body temperature 97.2 [degF] Treatment Wstr Work Phone: [facility] 09-14-2024 13:36-0400 Diastolic blood pressure 59 mm[Hg] Treatment Wstr Work Phone: [facility] 09-14-2024 13:36-0400 Heart rate 92 /min Treatment Wstr Work Phone: [facility] 09-14-2024 13:36-0400 SaO2% (BldA) [Mass fraction] 100 % Treatment Wstr Work Phone: [facility] 09-14-2024 13:36-0400 Systolic blood pressure 103 mm[Hg] Treatment Wstr Work Phone: [facility] 09-12-2024 10:27-0400 Body mass index (BMI) [Ratio] 27.7 kg/m2 Prospect Kelley DUTY MANAGER.GREASE REFINER OPERATOR Work Phone: [facility] 09-12-2024 10:27-0400 Body temperature 98.01 [degF] Domenic Kelley DUTY MANAGER.GREASE REFINER OPERATOR Work Phone: [facility] 09-12-2024 10:27-0400 Body weight 67.59 kg Domenic Kelley DUTY MANAGER.GREASE REFINER OPERATOR Work Phone: [facility] 09-12-2024 10:27-0400 Diastolic blood pressure 72 mm[Hg] Domenic Kelley DUTY MANAGER.GREASE REFINER OPERATOR Work Phone: [facility] 09-12-2024 10:27-0400 Heart rate 92 /min Domenic Kelley DUTY MANAGER.GREASE REFINER OPERATOR Work Phone: [facility] 09-12-2024 10:27-0400 SaO2% (BldA) [Mass fraction] 100 % Domenic Kelley DUTY MANAGER.GREASE REFINER OPERATOR Work Phone: [facility] 09-12-2024 10:27-0400 Systolic blood pressure 127 mm[Hg] Prospect Kelley DUTY MANAGER.GREASE REFINER OPERATOR Work Phone: [facility] 09-12-2024 09:53-0400 Body mass index (BMI) [Ratio] 27.79 kg/m2 Lab/Port Wstr Work Phone: [facility] 09-12-2024 09:53-0400 Body weight 67.81 kg Lab/Port Wstr Work Phone: [facility] 09-11-2024 12:37-0400 Body mass index (BMI) [Ratio] 28.8 kg/m2 Dr. Tami Chang MD Work Phone: 1(799)830-834321 [place] [address] 09-11-2024 12:37-0400 Body weight 69.[address] Tami Chang MD Work Phone: 3(486)965-649678 [place] [address] 08-29-2024 14:05-0400 Body temperature 98.3 [degF] Dr. Tami Chang MD Work Phone: 9(846)929-307378 [place] [address] 08-29-2024 14:05-0400 Diastolic blood pressure 55 mm[Hg] Dr. Tami Chang MD Work Phone: 1(337)434-611778 [place] [address] 08-29-2024 14:05-0400 Heart rate 74 /min Dr. Tami Chang MD Work Phone: 1(549)414-771678 [place] [address] 08-29-2024 14:05-0400 Respiratory rate 18 /min Dr. Tami Chang MD Work Phone: 6(491)198-642378 [place] [address] 08-29-2024 14:05-0400 SaO2% (BldA) [Mass fraction] 96 % Dr. Tami Chang MD Work Phone: 4(391)183-998678 [place] [address] 08-29-2024 14:05-0400 Systolic blood pressure 114 mm[Hg] Dr. Tami Chang MD Work Phone: 6(084)368-974878 [place] [address] 08-25-2024 18:12-0400 Body height 154.[address] Tami Chang MD Work Phone: 0(755)748-807178 [place] [address] 08-25-2024 18:12-0400 Body mass index (BMI) [Ratio] 28.5 kg/m2 Dr. Tami Chang MD Work Phone: 3(531)244-086378 [place] [address] 08-25-2024 18:12-0400 Body weight 68.[address] aTmi Chang MD Work Phone: 7(758)723-307778 [place] [address] 08-25-2024 17:09-0400 Body temperature 98.9 [degF] Dr. Tami Chang MD Work Phone: [facility] 08-25-2024 17:09-0400 Diastolic blood pressure 86 mm[Hg] Dr. Tami Chang MD Work Phone: [facility] 08-25-2024 17:09-0400 Heart rate 90 /min Dr. Tami Chang MD Work Phone: [facility] 08-25-2024 17:09-0400 Respiratory rate 14 /min Dr. Tami Chang MD Work Phone: [facility] 08-25-2024 17:09-0400 SaO2% (BldA) [Mass fraction] 98 % Dr. Tami Chang MD Work Phone: [facility] 08-25-2024 17:09-0400 Systolic blood pressure 164 mm[Hg] Dr. Tami Chang MD Work Phone: [facility] 08-25-2024 13:24-0400 Body height 154.[address] Tami Chang MD Work Phone: [facility] 08-25-2024 13:24-0400 Body mass index (BMI) [Ratio] 30.6 kg/m2 Dr. Tami Chang MD Work Phone: [facility] 08-25-2024 13:24-0400 Body weight 73.[address] Tami Chang MD Work Phone: [facility] 08-24-2024 13:30-0400 Body mass index (BMI) [Ratio] 29.18 kg/m2 Treatment Wstr Work Phone: [facility] 08-24-2024 13:30-0400 Body temperature 97.2 [degF] Treatment Wstr Work Phone: [facility] 08-24-2024 13:30-0400 Body weight 71.22 kg Treatment Wstr Work Phone: [facility] 08-24-2024 13:30-0400 Diastolic blood pressure 73 mm[Hg] Treatment Wstr Work Phone: [facility] 08-24-2024 13:30-0400 Heart rate 68 /min Treatment Wstr Work Phone: [facility] 08-24-2024 13:30-0400 SaO2% (BldA) [Mass fraction] 97 % Treatment Wstr Work Phone: [facility] 08-24-2024 13:30-0400 Systolic blood pressure 126 mm[Hg] Treatment Wstr Work Phone: [facility] 08-03-2024 13:24-0500 Body temperature 97.81 [degF] Treatment Wstr Work Phone: [facility] 08-03-2024 13:24-0500 Diastolic blood pressure 73 mm[Hg] Treatment Wstr Work Phone: [facility] 08-03-2024 13:24-0500 Heart rate 70 /min Treatment Wstr Work Phone: [facility] 08-03-2024 13:24-0500 Respiratory rate 16 /min Treatment Wstr Work Phone: [facility] 08-03-2024 13:24-0500 SaO2% (BldA) [Mass fraction] 99 % Treatment Wstr Work Phone: [facility] 08-03-2024 13:24-0500 Systolic blood pressure 138 mm[Hg] Treatment Wstr Work Phone: [facility] 08-01-2024 10:05-0500 Body mass index (BMI) [Ratio] 28.6 kg/m2 Domenic Kelley APRN.GREASE REFINER OPERATOR Work Phone: [facility] 08-01-2024 10:05-0500 Body temperature 97.7 [degF] Domenic Kelley APRN.GREASE REFINER OPERATOR Work Phone: [facility] 08-01-2024 10:05-0500 Body weight 69.8 kg Domenic Kelley APRN.GREASE REFINER OPERATOR Work Phone: [facility] 08-01-2024 10:05-0500 Diastolic blood pressure 77 mm[Hg] Domenic Kelley APRN.GREASE REFINER OPERATOR Work Phone: [facility] 08-01-2024 10:05-0500 Heart rate 80 /min Domenic Kelley DUTY MANAGER.GREASE REFINER OPERATOR Work Phone: [facility] 08-01-2024 10:05-0500 SaO2% (BldA) [Mass fraction] 94 % Domenic Kelley DUTY MANAGER.GREASE REFINER OPERATOR Work Phone: [facility] 08-01-2024 10:05-0500 Systolic blood pressure 130 mm[Hg] Domenic Kelley DUTY MANAGER.GREASE REFINER OPERATOR Work Phone: [facility] 07-16-2024 14:00-0500 Body height 156.2 cm Lety Zazueta MD Work Phone: [facility] 07-16-2024 14:00-0500 Body mass index (BMI) [Ratio] 28.63 kg/m2 Lety Zazueta MD Work Phone: [facility] 07-16-2024 14:00-0500 Body temperature 97.5 [degF] Lety Zazueta MD Work Phone: [facility] 07-16-2024 14:00-0500 Body weight 69.85 kg Lety Zazueta MD Work Phone: [facility] 07-16-2024 14:00-0500 Diastolic blood pressure 64 mm[Hg] Lety Zazueta MD Work Phone: [facility] 07-16-2024 14:00-0500 Heart rate 68 /min Lety Zazueta MD Work Phone: [facility] 07-16-2024 14:00-0500 Systolic blood pressure 150 mm[Hg] Lety Zazueta MD Work Phone: [facility] 07-13-2024 13:52-0500 Body mass index (BMI) [Ratio] 28.72 kg/m2 Treatment Wstr Work Phone: [facility] 07-13-2024 13:52-0500 Body temperature 97.39 [degF] Treatment Wstr Work Phone: [facility] 07-13-2024 13:52-0500 Body weight 70.08 kg Treatment Wstr Work Phone: [facility] 07-13-2024 13:52-0500 Diastolic blood pressure 72 mm[Hg] Treatment Wstr Work Phone: [facility] 07-13-2024 13:52-0500 Heart rate 72 /min Treatment Wstr Work Phone: [facility] 07-13-2024 13:52-0500 Respiratory rate 16 /min Treatment Wstr Work Phone: [facility] 07-13-2024 13:52-0500 SaO2% (BldA) [Mass fraction] 98 % Treatment Wstr Work Phone: [facility] 07-13-2024 13:52-0500 Systolic blood pressure 122 mm[Hg] Treatment Wstr Work Phone: [facility] 06-23-2024 13:31-0500 Body temperature 98 [degF] Dr. Tami Chang MD Work Phone: [facility] 06-23-2024 13:31-0500 Diastolic blood pressure 70 mm[Hg] Dr. Tami Chang MD Work Phone: [facility] 06-23-2024 13:31-0500 Heart rate 88 /min Dr. Tami Chang MD Work Phone: [facility] 06-23-2024 13:31-0500 Respiratory rate 12 /min Dr. Tami Chang MD Work Phone: [facility] 06-23-2024 13:31-0500 SaO2% (BldA) [Mass fraction] 97 % Dr. Tami Chang MD Work Phone: [facility] 06-23-2024 13:31-0500 Systolic blood pressure 120 mm[Hg] Dr. Tami Chang MD Work Phone: [facility] 06-22-2024 11:00-0500 Body temperature 97.11 [degF] Treatment Wstr Work Phone: [facility] 06-22-2024 11:00-0500 Diastolic blood pressure 79 mm[Hg] Treatment Wstr Work Phone: [facility] 06-22-2024 11:00-0500 Heart rate 80 /min Treatment Wstr Work Phone: [facility] 06-22-2024 11:00-0500 Respiratory rate 14 /min Treatment Wstr Work Phone: [facility] 06-22-2024 11:00-0500 SaO2% (BldA) [Mass fraction] 97 % Treatment Wstr Work Phone: [facility] 06-22-2024 11:00-0500 Systolic blood pressure 130 mm[Hg] Treatment Wstr Work Phone: [facility] 06-21-2024 09:25-0500 Body mass index (BMI) [Ratio] 28.26 kg/m2 Christiano Masci DO Work Phone: [facility] 06-21-2024 09:25-0500 Body temperature 97.11 [degF] Christiano Masci DO Work Phone: [facility] 06-21-2024 09:25-0500 Body weight 68.95 kg Christiano Masci DO Work Phone: [facility] 06-21-2024 09:25-0500 Diastolic blood pressure 71 mm[Hg] Christiano Masci DO Work Phone: [facility] 06-21-2024 09:25-0500 Heart rate 88 /min Christiano Masci DO Work Phone: [facility] 06-21-2024 09:25-0500 SaO2% (BldA) [Mass fraction] 97 % Christiano Masci DO Work Phone: [facility] 06-21-2024 09:25-0500 Systolic blood pressure 113 mm[Hg] Christinao Masci DO Work Phone: [facility] 06-04-2024 10:01-0500 Body temperature 97.8 [degF] Dr. Tami Chang MD Work Phone: [facility] 06-04-2024 10:01-0500 Diastolic blood pressure 78 mm[Hg] Dr. Tami Chang MD Work Phone: [facility] 06-04-2024 10:01-0500 Heart rate 90 /min Dr. Tami Chang MD Work Phone: 8(712)657-860621 [place] [address] 06-04-2024 10:01-0500 Respiratory rate 18 /min Dr. Tami Chang MD Work Phone: 9(246)287-278521 [place] [address] 06-04-2024 10:01-0500 SaO2% (BldA) [Mass fraction] 99 % Dr. Tami Chang MD Work Phone: 3(179)700-126721 [place] [address] 06-04-2024 10:01-0500 Systolic blood pressure 134 mm[Hg] Dr. Tami Chang MD Work Phone: 4(630)700-078321 [place] [address] 06-04-2024 08:07-0500 Body mass index (BMI) [Ratio] 28.7 kg/m2 Dr. Tami Chang MD Work Phone: 7(078)729-575321 [place] [address] 06-04-2024 08:07-0500 Body weight 68.[address] Tami Chang MD Work Phone: 1(152)906-313921 [place] [address] 06-02-2024 10:35-0500 Body temperature 98.4 [degF] Dr. Tami Chang MD Work Phone: 0(822)279-905321 [place] [address] 06-02-2024 10:35-0500 Diastolic blood pressure 60 mm[Hg] Dr. Tami Chang MD Work Phone: 6(919)968-524621 [place] [address] 06-02-2024 10:35-0500 Heart rate 88 /min Dr. Tami Chang MD Work Phone: [facility] 06-02-2024 10:35-0500 Respiratory rate 16 /min Dr. Tami Chang MD Work Phone: [facility] 06-02-2024 10:35-0500 SaO2% (BldA) [Mass fraction] 96 % Dr. Tami Chang MD Work Phone: [facility] 06-02-2024 10:35-0500 Systolic blood pressure 130 mm[Hg] Dr. Tami Chang MD Work Phone: [facility] 06-01-2024 11:00-0500 Body temperature 97.81 [degF] Treatment Wstr Work Phone: [facility] 06-01-2024 11:00-0500 Diastolic blood pressure 59 mm[Hg] Treatment Wstr Work Phone: [facility] 06-01-2024 11:00-0500 Heart rate 81 /min Treatment Wstr Work Phone: [facility] 06-01-2024 11:00-0500 SaO2% (BldA) [Mass fraction] 96 % Treatment Wstr Work Phone: [facility] 06-01-2024 11:00-0500 Systolic blood pressure 125 mm[Hg] Treatment Wstr Work Phone: [facility] 05-23-2024 15:16-0500 Body temperature 98.2 [degF] Dr. Tami Chang MD Work Phone: [facility] 05-23-2024 15:16-0500 Diastolic blood pressure 55 mm[Hg] Dr. Tami Chang MD Work Phone: [facility] 05-23-2024 15:16-0500 Heart rate 77 /min Dr. Tami Chang MD Work Phone: [facility] 05-23-2024 15:16-0500 Respiratory rate 16 /min Dr. Tami Chang MD Work Phone: [facility] 05-23-2024 15:16-0500 SaO2% (BldA) [Mass fraction] 100 % Dr. Tami Chang MD Work Phone: [facility] 05-23-2024 15:16-0500 Systolic blood pressure 102 mm[Hg] Dr. Tami Chang MD Work Phone: [facility] 05-23-2024 12:40-0500 Body mass index (BMI) [Ratio] 28.3 kg/m2 Dr. Tami Chang MD Work Phone: [facility] 05-23-2024 12:40-0500 Body weight [address] Tami Chang MD Work Phone: [facility] 05-11-2024 13:00-0500 Body temperature 98.1 [degF] Treatment Wstr Work Phone: [facility] 05-11-2024 13:00-0500 Diastolic blood pressure 61 mm[Hg] Treatment Wstr Work Phone: [facility] 05-11-2024 13:00-0500 Heart rate 71 /min Treatment Wstr Work Phone: [facility] 05-11-2024 13:00-0500 Systolic blood pressure 113 mm[Hg] Treatment Wstr Work Phone: [facility] 05-09-2024 09:04-0500 Body mass index (BMI) [Ratio] 28.77 kg/m2 Domenic Kelley DUTY MANAGER.GREASE REFINER OPERATOR Work Phone: [facility] 05-09-2024 09:04-0500 Body temperature 97.5 [degF] Domenic Kelley DUTY MANAGER.GREASE REFINER OPERATOR Work Phone: [facility] 05-09-2024 09:04-0500 Body weight 70.2 kg Domenic Kelley DUTY MANAGER.GREASE REFINER OPERATOR Work Phone: [facility] 05-09-2024 09:04-0500 Diastolic blood pressure 72 mm[Hg] Domenic Kelley DUTY MANAGER.GREASE REFINER OPERATOR Work Phone: [facility] 05-09-2024 09:04-0500 Heart rate 78 /min Domenic Kelley DUTY MANAGER.GREASE REFINER OPERATOR Work Phone: [facility] 05-09-2024 09:04-0500 SaO2% (BldA) [Mass fraction] 98 % Domenic Kelley DUTY MANAGER.GREASE REFINER OPERATOR Work Phone: [facility] 05-09-2024 09:04-0500 Systolic blood pressure 111 mm[Hg] Prospect Allie BIGGS Work Phone: [facility] 04-30-2024 13:08-0500 Body mass index (BMI) [Ratio] 29 kg/m2 Dr. Tami Chang MD Work Phone: [facility] 04-30-2024 13:08-0500 Body temperature 97.2 [degF] Dr. Tami Chang MD Work Phone: [facility] 04-30-2024 13:08-0500 Body weight 69.[address] Tami Chang MD Work Phone: [facility] 04-30-2024 13:08-0500 Diastolic blood pressure 77 mm[Hg] Dr. Tami Chang MD Work Phone: [facility] 04-30-2024 13:08-0500 Heart rate 76 /min Dr. Tami Chang MD Work Phone: [facility] 04-30-2024 13:08-0500 Respiratory rate 18 /min Dr. Tami Chang MD Work Phone: [facility] 04-30-2024 13:08-0500 SaO2% (BldA) [Mass fraction] 97 % Dr. Tami Chang MD Work Phone: [facility] 04-30-2024 13:08-0500 Systolic blood pressure 126 mm[Hg] Dr. Tami Chang MD Work Phone: [facility] 04-20-2024 10:18-0500 Body temperature 97.5 [degF] Treatment Wstr Work Phone: [facility] 04-20-2024 10:18-0500 Diastolic blood pressure 73 mm[Hg] Treatment Wstr Work Phone: [facility] 04-20-2024 10:18-0500 Heart rate 76 /min Treatment Wstr Work Phone: [facility] 04-20-2024 10:18-0500 SaO2% (BldA) [Mass fraction] 97 % Treatment Wstr Work Phone: [facility] 04-20-2024 10:18-0500 Systolic blood pressure 145 mm[Hg] Treatment Wstr Work Phone: [facility] 04-16-2024 08:34-0500 Body mass index (BMI) [Ratio] 29.09 kg/m2 Christiano [email or web address] DO Work Phone: [facility] 04-16-2024 08:34-0500 Body temperature 98.8 [degF] Christiano Masci DO Work Phone: [facility] 04-16-2024 08:34-0500 Body weight 70.99 kg Christiano Masci DO Work Phone: [facility] 04-16-2024 08:34-0500 Diastolic blood pressure 76 mm[Hg] Christiano Masci DO Work Phone: [facility] 04-16-2024 08:34-0500 Heart rate 81 /min Christiano Masci DO Work Phone: [facility] 04-16-2024 08:34-0500 SaO2% (BldA) [Mass fraction] 98 % Christiano Masci DO Work Phone: [facility] 04-16-2024 08:34-0500 Systolic blood pressure 130 mm[Hg] Christiano Masci DO Work Phone: [facility] 03-30-2024 13:38-0400 Body mass index (BMI) [Ratio] 29.18 kg/m2 Treatment Wstr Work Phone: [facility] 03-30-2024 13:38-0400 Body temperature 97.7 [degF] Treatment Wstr Work Phone: [facility] 03-30-2024 13:38-0400 Body weight 71.22 kg Treatment Wstr Work Phone: [facility] 03-30-2024 13:38-0400 Diastolic blood pressure 76 mm[Hg] Treatment Wstr Work Phone: [facility] 03-30-2024 13:38-0400 Heart rate 72 /min Treatment Wstr Work Phone: [facility] 03-30-2024 13:38-0400 SaO2% (BldA) [Mass fraction] 97 % Treatment Wstr Work Phone: [facility] 03-30-2024 13:38-0400 Systolic blood pressure 134 mm[Hg] Treatment Wstr Work Phone: [facility] 03-28-2024 09:29-0400 Body mass index (BMI) [Ratio] 28.93 kg/m2 Prospect Kelley DUTY MANAGER.GREASE REFINER OPERATOR Work Phone: [facility] 03-28-2024 09:29-0400 Body temperature 97.59 [degF] Domenic Kelley DUTY MANAGER.GREASE REFINER OPERATOR Work Phone: [facility] 03-28-2024 09:29-0400 Body weight 70.6 kg Domenic Kelley DUTY MANAGER.GREASE REFINER OPERATOR Work Phone: [facility] 03-28-2024 09:29-0400 Diastolic blood pressure 64 mm[Hg] Domenic Kelley DUTY MANAGER.GREASE REFINER OPERATOR Work Phone: [facility] 03-28-2024 09:29-0400 Heart rate 83 /min Prospect Kelley DUTY MANAGER.GREASE REFINER OPERATOR Work Phone: [facility] 03-28-2024 09:29-0400 SaO2% (BldA) [Mass fraction] 97 % Prospect Kelley DUTY MANAGER.GREASE REFINER OPERATOR Work Phone: [facility] 03-28-2024 09:29-0400 Systolic blood pressure 134 mm[Hg] Domenic Kelley DUTY MANAGER.GREASE REFINER OPERATOR Work Phone: [facility] 03-09-2024 13:12-0400 Body mass index (BMI) [Ratio] 28.44 kg/m2 Treatment Wstr Work Phone: [facility] 03-09-2024 13:12-0400 Body temperature 97.7 [degF] Treatment Wstr Work Phone: [facility] 03-09-2024 13:12-0400 Body weight 69.4 kg Treatment Wstr Work Phone: [facility] 03-09-2024 13:12-0400 Diastolic blood pressure 71 mm[Hg] Treatment Wstr Work Phone: [facility] 03-09-2024 13:12-0400 Heart rate 94 /min Treatment Wstr Work Phone: [facility] 03-09-2024 13:12-0400 SaO2% (BldA) [Mass fraction] 97 % Treatment Wstr Work Phone: [facility] 03-09-2024 13:12-0400 Systolic blood pressure 141 mm[Hg] Treatment Wstr Work Phone: [facility] 02-21-2024 11:00-0400 Diastolic blood pressure 80 mm[Hg] Lab/Port Wstr Work Phone: [facility] 02-21-2024 11:00-0400 Heart rate 71 /min Lab/Port Wstr Work Phone: [facility] 02-21-2024 11:00-0400 Systolic blood pressure 166 mm[Hg] Lab/Port Wstr Work Phone: [facility] 02-20-2024 14:53-0400 Body height 156.2 cm Deborah Elvin DUTY MANAGER.GREASE REFINER OPERATOR Work Phone: [facility] 02-20-2024 14:53-0400 Body mass index (BMI) [Ratio] 28.89 kg/m2 Deborah Elvin DUTY MANAGER.GREASE REFINER OPERATOR Work Phone: [facility] 02-20-2024 14:53-0400 Body temperature 97.39 [degF] Deborah Elvin DUTY MANAGER.GREASE REFINER OPERATOR Work Phone: [facility] 02-20-2024 14:53-0400 Body weight 70.49 kg Deborah Elvin DUTY MANAGER.GREASE REFINER OPERATOR Work Phone: [facility] 02-20-2024 14:53-0400 Diastolic blood pressure 75 mm[Hg] Deborah Elvin DUTY MANAGER.GREASE REFINER OPERATOR Work Phone: [facility] 02-20-2024 14:53-0400 Heart rate 94 /min Deborah Amadoir DUTY MANAGER.GREASE REFINER OPERATOR Work Phone: [facility] 02-20-2024 14:53-0400 SaO2% (BldA) [Mass fraction] 100 % Deborah Oconnor DUTY MANAGER.GREASE REFINER OPERATOR Work Phone: [facility] 02-20-2024 14:53-0400 Systolic blood pressure 122 mm[Hg] Deborah Amadoir DUTY MANAGER.GREASE REFINER OPERATOR Work Phone: [facility] 02-17-2024 08:00-0400 Body temperature 97.2 [degF] Treatment Wstr Work Phone: [facility] 02-17-2024 08:00-0400 Diastolic blood pressure 85 mm[Hg] Treatment Wstr Work Phone: [facility] 02-17-2024 08:00-0400 Heart rate 74 /min Treatment Wstr Work Phone: [facility] 02-17-2024 08:00-0400 Systolic blood pressure 135 mm[Hg] Treatment Wstr Work Phone: [facility] 02-16-2024 10:14-0400 Body mass index (BMI) [Ratio] 29.16 kg/m2 Domenic Kelley DUTY MANAGER.GREASE REFINER OPERATOR Work Phone: [facility] 02-16-2024 10:14-0400 Body temperature 97.5 [degF] Domenic Kelley DUTY MANAGER.GREASE REFINER OPERATOR Work Phone: [facility] 02-16-2024 10:14-0400 Body weight 70 kg Domenic Quezadaenter DUTY MANAGER.GREASE REFINER OPERATOR Work Phone: [facility] 02-16-2024 10:14-0400 Diastolic blood pressure 101 mm[Hg] Domenic Kelley DUTY MANAGER.GREASE REFINER OPERATOR Work Phone: [facility] 02-16-2024 10:14-0400 Heart rate 81 /min Domenic Kelley DUTY MANAGER.GREASE REFINER OPERATOR Work Phone: [facility] 02-16-2024 10:14-0400 SaO2% (BldA) [Mass fraction] 98 % Domenic Kelley DUTY MANAGER.GREASE REFINER OPERATOR Work Phone: [facility] 02-16-2024 10:14-0400 Systolic blood pressure 146 mm[Hg] Domenic Kelley DUTY MANAGER.GREASE REFINER OPERATOR Work Phone: [facility] 01-27-2024 13:16-0400 Body mass index (BMI) [Ratio] 29.29 kg/m2 Treatment Wstr Work Phone: [facility] 01-27-2024 13:16-0400 Body temperature 98.6 [degF] Treatment Wstr Work Phone: [facility] 01-27-2024 13:16-0400 Body weight 70.31 kg Treatment Wstr Work Phone: [facility] 01-27-2024 13:16-0400 Diastolic blood pressure 73 mm[Hg] Treatment Wstr Work Phone: [facility] 01-27-2024 13:16-0400 Heart rate 86 /min Treatment Wstr Work Phone: [facility] 01-27-2024 13:16-0400 Respiratory rate 16 /min Treatment Wstr Work Phone: [facility] 01-27-2024 13:16-0400 SaO2% (BldA) [Mass fraction] 99 % Treatment Wstr Work Phone: [facility] 01-27-2024 13:16-0400 Systolic blood pressure 133 mm[Hg] Treatment Wstr Work Phone: [facility] 01-06-2024 13:20-0400 Diastolic blood pressure 71 mm[Hg] Treatment Wstr Work Phone: [facility] 01-06-2024 13:20-0400 Heart rate 78 /min Treatment Wstr Work Phone: [facility] 01-06-2024 13:20-0400 Respiratory rate 18 /min Treatment Wstr Work Phone: [facility] 01-06-2024 13:20-0400 SaO2% (BldA) [Mass fraction] 97 % Treatment Wstr Work Phone: [facility] 01-06-2024 13:20-0400 Systolic blood pressure 103 mm[Hg] Treatment Wstr Work Phone: [facility] 01-04-2024 10:23-0400 Body mass index (BMI) [Ratio] 29.19 kg/m2 Christiano [email or web address] DO Work Phone: [facility] 01-04-2024 10:23-0400 Body temperature 98.2 [degF] Christiano Masci DO Work Phone: [facility] 01-04-2024 10:23-0400 Body weight 70.08 kg Christiano Masci DO Work Phone: [facility] 01-04-2024 10:23-0400 Diastolic blood pressure 74 mm[Hg] Christiano Masci DO Work Phone: [facility] 01-04-2024 10:23-0400 Heart rate 74 /min Christiano Masci DO Work Phone: [facility] 01-04-2024 10:23-0400 SaO2% (BldA) [Mass fraction] 97 % Christiano [email or web address] DO Work Phone: [facility] 01-04-2024 10:23-0400 Systolic blood pressure 121 mm[Hg] Christiano [email or web address] DO Work Phone: [facility] 12-16-2023 13:42-0400 Body mass index (BMI) [Ratio] 29.29 kg/m2 Treatment Wstr Work Phone: [facility] 12-16-2023 13:42-0400 Body temperature 97.5 [degF] Treatment Wstr Work Phone: [facility] 12-16-2023 13:42-0400 Body weight 70.31 kg Treatment Wstr Work Phone: [facility] 12-16-2023 13:42-0400 Diastolic blood pressure 78 mm[Hg] Treatment Wstr Work Phone: [facility] 12-16-2023 13:42-0400 Heart rate 84 /min Treatment Wstr Work Phone: [facility] 12-16-2023 13:42-0400 Respiratory rate 16 /min Treatment Wstr Work Phone: [facility] 12-16-2023 13:42-0400 SaO2% (BldA) [Mass fraction] 96 % Treatment Wstr Work Phone: [facility] 12-16-2023 13:42-0400 Systolic blood pressure 126 mm[Hg] Treatment Wstr Work Phone: [facility] 11-25-2023 12:00-0400 Body temperature 97.7 [degF] Treatment Wstr Work Phone: [facility] 11-25-2023 12:00-0400 Diastolic blood pressure 86 mm[Hg] Treatment Wstr Work Phone: [facility] 11-25-2023 12:00-0400 Heart rate 74 /min Treatment Wstr Work Phone: [facility] 11-25-2023 12:00-0400 Systolic blood pressure 134 mm[Hg] Treatment Wstr Work Phone: [facility] 11-23-2023 13:28-0400 Body mass index (BMI) [Ratio] 29.1 kg/m2 Domenic Kelley DUTY MANAGER.GREASE REFINER OPERATOR Work Phone: [facility] 11-23-2023 13:28-0400 Body temperature 97.11 [degF] Domenic Kelley DUTY MANAGER.GREASE REFINER OPERATOR Work Phone: [facility] 11-23-2023 13:28-0400 Body weight 69.85 kg Domenic Kelley DUTY MANAGER.GREASE REFINER OPERATOR Work Phone: [facility] 11-23-2023 13:28-0400 Diastolic blood pressure 75 mm[Hg] Domenic Kelley DUTY MANAGER.GREASE REFINER OPERATOR Work Phone: [facility] 11-23-2023 13:28-0400 Heart rate 74 /min Domenic Kelley DUTY MANAGER.GREASE REFINER OPERATOR Work Phone: [facility] 11-23-2023 13:28-0400 SaO2% (BldA) [Mass fraction] 96 % Domenic Kelley DUTY MANAGER.GREASE REFINER OPERATOR Work Phone: [facility] 11-23-2023 13:28-0400 Systolic blood pressure 120 mm[Hg] Domenic Kelley DUTY MANAGER.GREASE REFINER OPERATOR Work Phone: [facility] 11-21-2023 13:39-0400 Body height 154.9 cm Pacc 1 Work Phone: [facility] 11-21-2023 13:39-0400 Body mass index (BMI) [Ratio] 29.1 kg/m2 Pacc 1 Work Phone: [facility] 11-21-2023 13:39-0400 Body temperature 98.1 [degF] Pacc 1 Work Phone: [facility] 11-21-2023 13:39-0400 Body weight 69.85 kg Pacc 1 Work Phone: [facility] 11-21-2023 13:39-0400 Diastolic blood pressure 68 mm[Hg] Pacc 1 Work Phone: [facility] 11-21-2023 13:39-0400 Heart rate 78 /min Pacc 1 Work Phone: [facility] 11-21-2023 13:39-0400 Respiratory rate 14 /min Pacc 1 Work Phone: [facility] 11-21-2023 13:39-0400 SaO2% (BldA) [Mass fraction] 96 % Pacc 1 Work Phone: [facility] 11-21-2023 13:39-0400 Systolic blood pressure 122 mm[Hg] Pacc 1 Work Phone: [facility] 11-04-2023 13:17-0400 Body mass index (BMI) [Ratio] 28.91 kg/m2 Treatment Wstr Work Phone: [facility] 11-04-2023 13:17-0400 Body temperature 97.11 [degF] Treatment Wstr Work Phone: [facility] 11-04-2023 13:17-0400 Body weight 70.53 kg Treatment Wstr Work Phone: [facility] 11-04-2023 13:17-0400 Diastolic blood pressure 63 mm[Hg] Treatment Wstr Work Phone: [facility] 11-04-2023 13:17-0400 Heart rate 77 /min Treatment Wstr Work Phone: [facility] 11-04-2023 13:17-0400 SaO2% (BldA) [Mass fraction] 100 % Treatment Wstr Work Phone: [facility] 11-04-2023 13:17-0400 Systolic blood pressure 151 mm[Hg] Treatment Wstr Work Phone: [facility] 10-14-2023 13:23-0400 Body temperature 96.69 [degF] Treatment Wstr Work Phone: [facility] 10-14-2023 13:23-0400 Diastolic blood pressure 61 mm[Hg] Treatment Wstr Work Phone: [facility] 10-14-2023 13:23-0400 Heart rate 66 /min Treatment Wstr Work Phone: [facility] 10-14-2023 13:23-0400 Respiratory rate 16 /min Treatment Wstr Work Phone: [facility] 10-14-2023 13:23-0400 Systolic blood pressure 131 mm[Hg] Treatment Wstr Work Phone: [facility] 10-11-2023 10:43-0400 Body mass index (BMI) [Ratio] 28.53 kg/m2 Christiano Oswaldi DO Work Phone: [facility] 10-11-2023 10:43-0400 Body temperature 98.01 [degF] Christiano Rosei DO Work Phone: [facility] 10-11-2023 10:43-0400 Body weight 69.63 kg Christiano Masci DO Work Phone: [facility] 10-11-2023 10:43-0400 Diastolic blood pressure 70 mm[Hg] Christiano Rosei DO Work Phone: [facility] 10-11-2023 10:43-0400 Heart rate 78 /min Christiano Rosei DO Work Phone: [facility] 10-11-2023 10:43-0400 Respiratory rate 20 /min Christiano Rosei DO Work Phone: [facility] 10-11-2023 10:43-0400 SaO2% (BldA) [Mass fraction] 96 % Christiano Rosei DO Work Phone: [facility] 10-11-2023 10:43-0400 Systolic blood pressure 131 mm[Hg] Christiano Rosei DO Work Phone: [facility] 09-23-2023 13:00-0400 Body temperature 97.9 [degF] Treatment Wstr Work Phone: [facility] 09-23-2023 13:00-0400 Body weight 69.17 kg Treatment Wstr Work Phone: [facility] 09-23-2023 13:00-0400 Diastolic blood pressure 69 mm[Hg] Treatment Wstr Work Phone: [facility] 09-23-2023 13:00-0400 Heart rate 76 /min Treatment Wstr Work Phone: [facility] 09-23-2023 13:00-0400 Systolic blood pressure 150 mm[Hg] Treatment Wstr Work Phone: [facility] 08-12-2023 09:50-0500 Body temperature 97.3 [degF] Treatment Wstr Work Phone: [facility] 08-12-2023 09:50-0500 Body weight 69.63 kg Treatment Wstr Work Phone: [facility] 08-12-2023 09:50-0500 Diastolic blood pressure 68 mm[Hg] Treatment Wstr Work Phone: [facility] 08-12-2023 09:50-0500 Heart rate 76 /min Treatment Wstr Work Phone: [facility] 08-12-2023 09:50-0500 Respiratory rate 18 /min Treatment Wstr Work Phone: [facility] 08-12-2023 09:50-0500 Systolic blood pressure 150 mm[Hg] Treatment Wstr Work Phone: [facility] 07-22-2023 13:41-0500 Body temperature 97.39 [degF] Treatment Wstr Work Phone: [facility] 07-22-2023 13:41-0500 Diastolic blood pressure 58 mm[Hg] Treatment Wstr Work Phone: [facility] 07-22-2023 13:41-0500 Heart rate 86 /min Treatment Wstr Work Phone: [facility] 07-22-2023 13:41-0500 SaO2% (BldA) [Mass fraction] 99 % Treatment Wstr Work Phone: [facility] 07-22-2023 13:41-0500 Systolic blood pressure 133 mm[Hg] Treatment Wstr Work Phone: [facility] 07-20-2023 10:39-0500 Body temperature 98.01 [degF] Christiano Oswaldi DO Work Phone: [facility] 07-20-2023 10:39-0500 Body weight 69.17 kg Christiano Masci DO Work Phone: [facility] 07-20-2023 10:39-0500 Diastolic blood pressure 72 mm[Hg] Christiano Masci DO Work Phone: [facility] 07-20-2023 10:39-0500 Heart rate 80 /min Christiano Masci DO Work Phone: [facility] 07-20-2023 10:39-0500 SaO2% (BldA) [Mass fraction] 98 % Christiano Masci DO Work Phone: [facility] 07-20-2023 10:39-0500 Systolic blood pressure 112 mm[Hg] Christiano Masci DO Work Phone: [facility] 07-19-2023 10:26-0500 Body weight 69.17 kg Lab/Port Wstr Work Phone: [facility] 05-20-2023 09:49-0500 Body temperature 97.81 [degF] Treatment Wstr Work Phone: [facility] 05-20-2023 09:49-0500 Diastolic blood pressure 73 mm[Hg] Treatment Wstr Work Phone: [facility] 05-20-2023 09:49-0500 Heart rate 73 /min Treatment Wstr Work Phone: [facility] 05-20-2023 09:49-0500 Respiratory rate 18 /min Treatment Wstr Work Phone: [facility] 05-20-2023 09:49-0500 SaO2% (BldA) [Mass fraction] 97 % Treatment Wstr Work Phone: [facility] 05-20-2023 09:49-0500 Systolic blood pressure 116 mm[Hg] Treatment Wstr Work Phone: [facility] 05-18-2023 09:02-0500 Body height 152.5 cm Christiano Masci DO Work Phone: [facility] 05-18-2023 09:02-0500 Body temperature 98.01 [degF] Christiano Masci DO Work Phone: [facility] 05-18-2023 09:02-0500 Body weight 69.4 kg Christiano Masci DO Work Phone: [facility] 05-18-2023 09:02-0500 Diastolic blood pressure 83 mm[Hg] Christiano Masci DO Work Phone: [facility] 05-18-2023 09:02-0500 Heart rate 77 /min Christiano Masci DO Work Phone: [facility] 05-18-2023 09:02-0500 SaO2% (BldA) [Mass fraction] 98 % Christiano Masci DO Work Phone: [facility] 05-18-2023 09:02-0500 Systolic blood pressure 126 mm[Hg] Christiano Masci DO Work Phone: [facility] 04-29-2023 14:00-0500 Body temperature 97.39 [degF] Treatment Wstr Work Phone: [facility] 04-29-2023 14:00-0500 Body weight 71.67 kg Treatment Wstr Work Phone: [facility] 04-29-2023 14:00-0500 Diastolic blood pressure 60 mm[Hg] Treatment Wstr Work Phone: [facility] 04-29-2023 14:00-0500 Heart rate 70 /min Treatment Wstr Work Phone: [facility] 04-29-2023 14:00-0500 Respiratory rate 16 /min Treatment Wstr Work Phone: [facility] 04-29-2023 14:00-0500 SaO2% (BldA) [Mass fraction] 100 % Treatment Wstr Work Phone: [facility] 04-29-2023 14:00-0500 Systolic blood pressure 126 mm[Hg] Treatment Wstr Work Phone: [facility] 04-06-2023 15:53-0400 Body temperature 98.01 [degF] Christiano Oswaldi DO Work Phone: [facility] 04-06-2023 15:53-0400 Diastolic blood pressure 71 mm[Hg] Christiano Oswaldi DO Work Phone: [facility] 04-06-2023 15:53-0400 Heart rate 76 /min Christiano Masci DO Work Phone: [facility] 04-06-2023 15:53-0400 SaO2% (BldA) [Mass fraction] 98 % Christiano Oswaldi DO Work Phone: [facility] 04-06-2023 15:53-0400 Systolic blood pressure 123 mm[Hg] Christiano Masci DO Work Phone: [facility] 03-18-2023 09:30-0400 Body temperature 97.5 [degF] Treatment Wstr Work Phone: [facility] 03-18-2023 09:30-0400 Body weight 70.31 kg Treatment Wstr Work Phone: [facility] 03-18-2023 09:30-0400 Diastolic blood pressure 82 mm[Hg] Treatment Wstr Work Phone: [facility] 03-18-2023 09:30-0400 Heart rate 76 /min Treatment Wstr Work Phone: [facility] 03-18-2023 09:30-0400 Respiratory rate 20 /min Treatment Wstr Work Phone: [facility] 03-18-2023 09:30-0400 Systolic blood pressure 149 mm[Hg] Treatment Wstr Work Phone: [facility] 02-25-2023 09:45-0400 Body temperature 97.59 [degF] Treatment Wstr Work Phone: [facility] 02-25-2023 09:45-0400 Diastolic blood pressure 64 mm[Hg] Treatment Wstr Work Phone: [facility] 02-25-2023 09:45-0400 Heart rate 79 /min Treatment Wstr Work Phone: [facility] 02-25-2023 09:45-0400 Systolic blood pressure 149 mm[Hg] Treatment Wstr Work Phone: [facility] 02-23-2023 10:07-0400 Body temperature 97.3 [degF] Christiano Masci DO Work Phone: [facility] 02-23-2023 10:07-0400 Body weight 70.53 kg Christiano Masci DO Work Phone: [facility] 02-23-2023 10:07-0400 Diastolic blood pressure 76 mm[Hg] Christiano Masci DO Work Phone: [facility] 02-23-2023 10:07-0400 Heart rate 78 /min Christiano Masci DO Work Phone: [facility] 02-23-2023 10:07-0400 SaO2% (BldA) [Mass fraction] 97 % Christiano Centeno DO Work Phone: [facility] 02-23-2023 10:07-0400 Systolic blood pressure 129 mm[Hg] Christiano Centeno DO Work Phone: [facility] 02-23-2023 09:56-0400 Body weight 70.53 kg Lab/Port Wstr Work Phone: [facility] 02-03-2023 09:00-0400 Body temperature 97.7 [degF] Treatment Wstr Work Phone: [facility] 02-03-2023 09:00-0400 Body weight 70.53 kg Treatment Wstr Work Phone: [facility] 02-03-2023 09:00-0400 Diastolic blood pressure 80 mm[Hg] Treatment Wstr Work Phone: [facility] 02-03-2023 09:00-0400 Heart rate 68 /min Treatment Wstr Work Phone: [facility] 02-03-2023 09:00-0400 Respiratory rate 16 /min Treatment Wstr Work Phone: [facility] 02-03-2023 09:00-0400 SaO2% (BldA) [Mass fraction] 98 % Treatment Wstr Work Phone: [facility] 02-03-2023 09:00-0400 Systolic blood pressure 142 mm[Hg] Treatment Wstr Work Phone: [facility] 01-14-2023 09:05-0400 Body height 154.[address] Tami Chang Work Phone: [facility] 01-14-2023 09:05-0400 Body mass index (BMI) [Ratio] 28.9 kg/m2 Dr. Tami Chang Work Phone: [facility] 01-14-2023 09:05-0400 Body temperature 97.7 [degF] Dr. Tami Chang Work Phone: [facility] 01-14-2023 09:05-0400 Body weight 69.[address] Tami Chang Work Phone: [facility] 01-14-2023 09:05-0400 Diastolic blood pressure 56 mm[Hg] Dr. Tami Chang Work Phone: [facility] 01-14-2023 09:05-0400 Heart rate 99 /min Dr. Tami Chang Work Phone: [facility] 01-14-2023 09:05-0400 Respiratory rate 17 /min Dr. Tami Chang Work Phone: [facility] 01-14-2023 09:05-0400 SaO2% (BldA) [Mass fraction] 97 % Dr. Tami Chang Work Phone: [facility] 01-14-2023 09:05-0400 Systolic blood pressure 126 mm[Hg] Dr. Tami Chang Work Phone: [facility] 01-13-2023 09:01-0400 Body temperature 97.9 [degF] Treatment Wstr Work Phone: [facility] 01-13-2023 09:01-0400 Diastolic blood pressure 65 mm[Hg] Treatment Wstr Work Phone: [facility] 01-13-2023 09:01-0400 Heart rate 72 /min Treatment Wstr Work Phone: [facility] 01-13-2023 09:01-0400 Respiratory rate 18 /min Treatment Wstr Work Phone: [facility] 01-13-2023 09:01-0400 SaO2% (BldA) [Mass fraction] 100 % Treatment Wstr Work Phone: [facility] 01-13-2023 09:01-0400 Systolic blood pressure 129 mm[Hg] Treatment Wstr Work Phone: [facility] 01-12-2023 10:09-0400 Body temperature 99.19 [degF] Christiano Centeno DO Work Phone: [facility] 01-12-2023 10:09-0400 Body weight 70.08 kg Christiano Centeno DO Work Phone: [facility] 01-12-2023 10:09-0400 Diastolic blood pressure 78 mm[Hg] Christiano Rosei DO Work Phone: [facility] 01-12-2023 10:09-0400 Heart rate 85 /min Christiano Rosei DO Work Phone: [facility] 01-12-2023 10:09-0400 SaO2% (BldA) [Mass fraction] 97 % Christiano Centeno DO Work Phone: [facility] 01-12-2023 10:09-0400 Systolic blood pressure 129 mm[Hg] Christiano Rosei DO Work Phone: [facility] 12-31-2022 13:23-0400 Body mass index (BMI) [Ratio] 29.1 kg/m2 Dr. Tami Chang Work Phone: [facility] 12-31-2022 13:23-0400 Body temperature 97.2 [degF] Dr. Tami Chang Work Phone: [facility] 12-31-2022 13:23-0400 Body weight 69.[address] Tami Chang Work Phone: [facility] 12-31-2022 13:23-0400 Diastolic blood pressure 79 mm[Hg] Dr. Tami Chang Work Phone: [facility] 12-31-2022 13:23-0400 Heart rate 86 /min Dr. Tami Chang Work Phone: [facility] 12-31-2022 13:23-0400 Respiratory rate 17 /min Dr. Tami Chang Work Phone: [facility] 12-31-2022 13:23-0400 SaO2% (BldA) [Mass fraction] 97 % Dr. Tami Chang Work Phone: [facility] 12-31-2022 13:23-0400 Systolic blood pressure 121 mm[Hg] Dr. Tami Chang Work Phone: [facility] 12-26-2022 16:28-0400 Heart rate 74 /min [facility] 12-26-2022 16:28-0400 Respiratory rate 17 /min [facility] 12-26-2022 16:28-0400 SaO2% (BldA) [Mass fraction] 98 % [facility] 12-26-2022 15:53-0400 Body height 154.94 cm [facility] 12-26-2022 15:53-0400 Body mass index (BMI) [Ratio] 29.1 kg/m2 [facility] 12-26-2022 15:53-0400 Body temperature 97.1 [degF] [facility] 12-26-2022 15:53-0400 Body weight 69.98 kg [facility] 12-26-2022 15:53-0400 Diastolic blood pressure 73 mm[Hg] [facility] 12-26-2022 15:53-0400 Systolic blood pressure 159 mm[Hg] [facility] 12-23-2022 08:49-0400 Body temperature 97.2 [degF] Treatment Wstr Work Phone: [facility] 12-23-2022 08:49-0400 Body weight 70.31 kg Treatment Wstr Work Phone: [facility] 12-23-2022 08:49-0400 Diastolic blood pressure 66 mm[Hg] Treatment Wstr Work Phone: [facility] 12-23-2022 08:49-0400 Heart rate 85 /min Treatment Wstr Work Phone: [facility] 12-23-2022 08:49-0400 Systolic blood pressure 132 mm[Hg] Treatment Wstr Work Phone: [facility] 12-01-2022 08:30-0400 Body temperature 97.3 [degF] Christiano Rosei DO Work Phone: [facility] 12-01-2022 08:30-0400 Body weight 70.08 kg Christiano Oswaldi DO Work Phone: [facility] 12-01-2022 08:30-0400 Diastolic blood pressure 66 mm[Hg] Christiano Rosei DO Work Phone: [facility] 12-01-2022 08:30-0400 Heart rate 90 /min Christiano Rosei DO Work Phone: [facility] 12-01-2022 08:30-0400 SaO2% (BldA) [Mass fraction] 100 % Christiano Rosei DO Work Phone: [facility] 12-01-2022 08:30-0400 Systolic blood pressure 110 mm[Hg] Christiano Rosei DO Work Phone: [facility] 11-11-2022 08:46-0400 Body temperature 97.81 [degF] Treatment Wstr Work Phone: [facility] 11-11-2022 08:46-0400 Body weight 71.67 kg Treatment Wstr Work Phone: [facility] 11-11-2022 08:46-0400 Diastolic blood pressure 62 mm[Hg] Treatment Wstr Work Phone: [facility] 11-11-2022 08:46-0400 Heart rate 84 /min Treatment Wstr Work Phone: [facility] 11-11-2022 08:46-0400 SaO2% (BldA) [Mass fraction] 98 % Treatment Wstr Work Phone: [facility] 11-11-2022 08:46-0400 Systolic blood pressure 139 mm[Hg] Treatment Wstr Work Phone: [facility] 09-30-2022 08:55-0400 Body temperature 97.81 [degF] Treatment Wstr Work Phone: [facility] 09-30-2022 08:55-0400 Diastolic blood pressure 68 mm[Hg] Treatment Wstr Work Phone: [facility] 09-30-2022 08:55-0400 Heart rate 90 /min Treatment Wstr Work Phone: [facility] 09-30-2022 08:55-0400 Systolic blood pressure 137 mm[Hg] Treatment Wstr Work Phone: [facility] 09-09-2022 09:00-0400 Body temperature 97.81 [degF] Treatment Wstr Work Phone: [facility] 09-09-2022 09:00-0400 Diastolic blood pressure 48 mm[Hg] Treatment Wstr Work Phone: [facility] 09-09-2022 09:00-0400 Heart rate 87 /min Treatment Wstr Work Phone: [facility] 09-09-2022 09:00-0400 Respiratory rate 14 /min Treatment Wstr Work Phone: [facility] 09-09-2022 09:00-0400 Systolic blood pressure 112 mm[Hg] Treatment Wstr Work Phone: [facility] 09-08-2022 09:57-0400 Body temperature 96.6 [degF] Christiano Masci DO Work Phone: [facility] 09-08-2022 09:57-0400 Body weight 68.04 kg Christiano Masci DO Work Phone: [facility] 09-08-2022 09:57-0400 Diastolic blood pressure 78 mm[Hg] Christiano Masci DO Work Phone: [facility] 09-08-2022 09:57-0400 Heart rate 90 /min Christiano Masci DO Work Phone: [facility] 09-08-2022 09:57-0400 SaO2% (BldA) [Mass fraction] 96 % Christiano Masci DO Work Phone: [facility] 09-08-2022 09:57-0400 Systolic blood pressure 125 mm[Hg] Christiano Masci DO Work Phone: [facility] 08-19-2022 08:49-0400 Body temperature 97.3 [degF] Treatment Wstr Work Phone: [facility] 08-19-2022 08:49-0400 Body weight 69.85 kg Treatment Wstr Work Phone: [facility] 08-19-2022 08:49-0400 Diastolic blood pressure 70 mm[Hg] Treatment Wstr Work Phone: [facility] 08-19-2022 08:49-0400 Heart rate 84 /min Treatment Wstr Work Phone: [facility] 08-19-2022 08:49-0400 SaO2% (BldA) [Mass fraction] 99 % Treatment Wstr Work Phone: [facility] 08-19-2022 08:49-0400 Systolic blood pressure 138 mm[Hg] Treatment Wstr Work Phone: [facility] 07-29-2022 08:52-0500 Body temperature 96.69 [degF] Treatment Wstr Work Phone: [facility] 07-29-2022 08:52-0500 Diastolic blood pressure 60 mm[Hg] Treatment Wstr Work Phone: [facility] 07-29-2022 08:52-0500 Heart rate 71 /min Treatment Wstr Work Phone: [facility] 07-29-2022 08:52-0500 Systolic blood pressure 147 mm[Hg] Treatment Wstr Work Phone: [facility] 07-28-2022 07:49-0500 Body weight 69.63 kg Lab/Port Wstr Work Phone: [facility] 07-21-2022 10:08-0500 Body height 157.[address] Tami Chang Work Phone: [facility] 07-21-2022 10:07-0500 Body mass index (BMI) [Ratio] 28 kg/m2 Dr. Tami Chang Work Phone: [facility] 07-21-2022 10:07-0500 Body temperature 97.9 [degF] Dr. Tami Chang Work Phone: [facility] 07-21-2022 10:07-0500 Body weight 69.[address] Tami Chang Work Phone: [facility] 07-21-2022 10:07-0500 Diastolic blood pressure 78 mm[Hg] Dr. Tami Chang Work Phone: [facility] 07-21-2022 10:07-0500 Heart rate 75 /min Dr. Tami Chang Work Phone: [facility] 07-21-2022 10:07-0500 Respiratory rate 16 /min Dr. Tami Chang Work Phone: [facility] 07-21-2022 10:07-0500 SaO2% (BldA) [Mass fraction] 97 % Dr. Tami Chang Work Phone: [facility] 07-21-2022 10:07-0500 Systolic blood pressure 126 mm[Hg] Dr. Tami Chang Work Phone: [facility] 06-17-2022 08:47-0500 Body temperature 97.59 [degF] Treatment Wstr Work Phone: [facility] 06-17-2022 08:47-0500 Diastolic blood pressure 66 mm[Hg] Treatment Wstr Work Phone: [facility] 06-17-2022 08:47-0500 Heart rate 84 /min Treatment Wstr Work Phone: [facility] 06-17-2022 08:47-0500 Respiratory rate 16 /min Treatment Wstr Work Phone: [facility] 06-17-2022 08:47-0500 SaO2% (BldA) [Mass fraction] 97 % Treatment Wstr Work Phone: [facility] 06-17-2022 08:47-0500 Systolic blood pressure 146 mm[Hg] Treatment Wstr Work Phone: [facility] 06-16-2022 10:24-0500 Body temperature 98.01 [degF] Christiano Centeno DO Work Phone: [facility] 06-16-2022 10:24-0500 Body weight 68.49 kg Christiano Centeno DO Work Phone: [facility] 06-16-2022 10:24-0500 Diastolic blood pressure 80 mm[Hg] Christiano Masci DO Work Phone: [facility] 06-16-2022 10:24-0500 Heart rate 72 /min Christiano Masci DO Work Phone: [facility] 06-16-2022 10:24-0500 SaO2% (BldA) [Mass fraction] 99 % Christiano Masci DO Work Phone: [facility] 06-16-2022 10:24-0500 Systolic blood pressure 142 mm[Hg] Christiano Masci DO Work Phone: [facility] 06-16-2022 10:18-0500 Body weight 68.49 kg Lab/Port Wstr Work Phone: [facility] 05-22-2022 09:01-0500 Body temperature 98.3 [degF] Dr. Tami Chang Work Phone: [facility] 05-22-2022 09:01-0500 Diastolic blood pressure 70 mm[Hg] Dr. Tami Chang Work Phone: [facility] 05-22-2022 09:01-0500 Heart rate 75 /min Dr. Tami Chang Work Phone: [facility] 05-22-2022 09:01-0500 Respiratory rate 17 /min Dr. Tami Chang Work Phone: [facility] 05-22-2022 09:01-0500 SaO2% (BldA) [Mass fraction] 97 % Dr. Tami Chang Work Phone: [facility] 05-22-2022 09:01-0500 Systolic blood pressure 122 mm[Hg] Dr. Tami Chang Work Phone: [facility] 05-05-2022 09:55-0500 Body temperature 97.81 [degF] Christiano Rosei DO Work Phone: [facility] 05-05-2022 09:55-0500 Body weight 69.85 kg Christiano Masci DO Work Phone: [facility] 05-05-2022 09:55-0500 Diastolic blood pressure 74 mm[Hg] Christiano Rosei DO Work Phone: [facility] 05-05-2022 09:55-0500 Heart rate 85 /min Christiano Rosei DO Work Phone: [facility] 05-05-2022 09:55-0500 SaO2% (BldA) [Mass fraction] 99 % Christiano Rosei DO Work Phone: [facility] 05-05-2022 09:55-0500 Systolic blood pressure 112 mm[Hg] Christiano Rosei DO Work Phone: [facility] 03-25-2022 08:49-0400 Body temperature 96.8 [degF] Treatment Wstr Work Phone: [facility] 03-25-2022 08:49-0400 Diastolic blood pressure 77 mm[Hg] Treatment Wstr Work Phone: [facility] 03-25-2022 08:49-0400 Heart rate 88 /min Treatment Wstr Work Phone: [facility] 03-25-2022 08:49-0400 Systolic blood pressure 140 mm[Hg] Treatment Wstr Work Phone: [facility] 02-23-2022 10:00-0400 Body temperature 97 [degF] Treatment Wstr Work Phone: [facility] 02-23-2022 10:00-0400 Diastolic blood pressure 71 mm[Hg] Treatment Wstr Work Phone: [facility] 02-23-2022 10:00-0400 Heart rate 89 /min Treatment Wstr Work Phone: [facility] 02-23-2022 10:00-0400 Systolic blood pressure 126 mm[Hg] Treatment Wstr Work Phone: [facility] 02-02-2022 11:01-0400 Body temperature 96.6 [degF] Treatment Wstr Work Phone: [facility] 02-02-2022 11:01-0400 Diastolic blood pressure 70 mm[Hg] Treatment Wstr Work Phone: [facility] 02-02-2022 11:01-0400 Heart rate 74 /min Treatment Wstr Work Phone: [facility] 02-02-2022 11:01-0400 Systolic blood pressure 153 mm[Hg] Treatment Wstr Work Phone: [facility] 02-01-2022 10:02-0400 Body temperature 97.59 [degF] Christiano Masci DO Work Phone: [facility] 02-01-2022 10:02-0400 Body weight 67.36 kg Christiano Masci DO Work Phone: [facility] 02-01-2022 10:02-0400 Diastolic blood pressure 70 mm[Hg] Christiano Masci DO Work Phone: [facility] 02-01-2022 10:02-0400 Heart rate 82 /min Christiano Masci DO Work Phone: [facility] 02-01-2022 10:02-0400 SaO2% (BldA) [Mass fraction] 97 % Christiano Masci DO Work Phone: [facility] 02-01-2022 10:02-0400 Systolic blood pressure 136 mm[Hg] Christiano Masci DO Work Phone: [facility] 01-12-2022 10:54-0400 Body temperature 97 [degF] Treatment Wstr Work Phone: [facility] 01-12-2022 10:54-0400 Body weight 64.86 kg Treatment Wstr Work Phone: [facility] 01-12-2022 10:54-0400 Diastolic blood pressure 67 mm[Hg] Treatment Wstr Work Phone: [facility] 01-12-2022 10:54-0400 Heart rate 82 /min Treatment Wstr Work Phone: [facility] 01-12-2022 10:54-0400 SaO2% (BldA) [Mass fraction] 98 % Treatment Wstr Work Phone: [facility] 01-12-2022 10:54-0400 Systolic blood pressure 145 mm[Hg] Treatment Wstr Work Phone: [facility] 12-21-2021 09:55-0400 Body temperature 97.5 [degF] Treatment Wstr Work Phone: [facility] 12-21-2021 09:55-0400 Diastolic blood pressure 74 mm[Hg] Treatment Wstr Work Phone: [facility] 12-21-2021 09:55-0400 Heart rate 89 /min Treatment Wstr Work Phone: [facility] 12-21-2021 09:55-0400 SaO2% (BldA) [Mass fraction] 97 % Treatment Wstr Work Phone: [facility] 12-21-2021 09:55-0400 Systolic blood pressure 113 mm[Hg] Treatment Wstr Work Phone: [facility] 12-18-2021 11:53-0400 Body temperature 97 [degF] Santa Rodriguez MD Work Phone: [facility] 12-18-2021 11:53-0400 Body weight 64.86 kg Santa Rodriguez MD Work Phone: [facility] 12-18-2021 11:53-0400 Diastolic blood pressure 63 mm[Hg] Santa Rodriguez MD Work Phone: [facility] 12-18-2021 11:53-0400 Heart rate 75 /min Santa Rodriguez MD Work Phone: [facility] 12-18-2021 11:53-0400 Systolic blood pressure 127 mm[Hg] Santa Rodriguez MD Work Phone: [facility] 12-01-2021 14:16-0400 Body temperature 97.3 [degF] Treatment Wstr Work Phone: [facility] 12-01-2021 14:16-0400 Body weight 65.32 kg Treatment Wstr Work Phone: [facility] 12-01-2021 14:16-0400 Diastolic blood pressure 56 mm[Hg] Treatment Wstr Work Phone: [facility] 12-01-2021 14:16-0400 Heart rate 78 /min Treatment Wstr Work Phone: [facility] 12-01-2021 14:16-0400 Systolic blood pressure 132 mm[Hg] Treatment Wstr Work Phone: [facility] 11-06-2021 10:06-0400 Body temperature 98.1 [degF] Christiano Masci DO Work Phone: [facility] 11-06-2021 10:06-0400 Body weight 64.64 kg Christiano Masci DO Work Phone: [facility] 11-06-2021 10:06-0400 Diastolic blood pressure 69 mm[Hg] Christiano Masci DO Work Phone: [facility] 11-06-2021 10:06-0400 Heart rate 79 /min Christiano Masci DO Work Phone: [facility] 11-06-2021 10:06-0400 SaO2% (BldA) [Mass fraction] 98 % Christiano Masci DO Work Phone: [facility] 11-06-2021 10:06-0400 Systolic blood pressure 149 mm[Hg] Christiano Masci DO Work Phone: [facility] 10-08-2021 10:15-0400 Body height 157.48 cm [facility] Work Phone: 09-28-2021 13:00-0400 Body temperature 96.69 [degF] Treatment Wstr Work Phone: [facility] 09-28-2021 13:00-0400 Diastolic blood pressure 73 mm[Hg] Treatment Wstr Work Phone: [facility] 09-28-2021 13:00-0400 Heart rate 72 /min Treatment Wstr Work Phone: [facility] 09-28-2021 13:00-0400 Systolic blood pressure 149 mm[Hg] Treatment Wstr Work Phone: [facility] 09-25-2021 10:00-0400 Body temperature 97.81 [degF] Christiano Masci DO Work Phone: [facility] 09-25-2021 10:00-0400 Diastolic blood pressure 63 mm[Hg] Christiano Masci DO Work Phone: [facility] 09-25-2021 10:00-0400 Heart rate 80 /min Christiano Masci DO Work Phone: [facility] 09-25-2021 10:00-0400 Systolic blood pressure 141 mm[Hg] Christiano Masci DO Work Phone: [facility] 09-25-2021 09:54-0400 Body weight 64.86 kg Lab/Port Wstr Work Phone: [facility] 09-07-2021 13:01-0400 Body temperature 97.3 [degF] Treatment Wstr Work Phone: [facility] 09-07-2021 13:01-0400 Body weight 63.5 kg Treatment Wstr Work Phone: [facility] 09-07-2021 13:01-0400 Diastolic blood pressure 69 mm[Hg] Treatment Wstr Work Phone: [facility] 09-07-2021 13:01-0400 Heart rate 78 /min Treatment Wstr Work Phone: [facility] 09-07-2021 13:01-0400 Systolic blood pressure 155 mm[Hg] Treatment Wstr Work Phone: [facility] Encounters Encounter Date Encounter Type Care Provider Facility Start: 04-05-2025 ambulatory Gurinder Messina Facility :[facility] Start: 03-22-2025 End: 03-22-2025 ambulatory CHRISTIANO CENTENO Facility:[facility] Start: 03-20-2025 End: 03-20-2025 ambulatory CHRISTIANO A TARYN Facility:[facility] Start: 03-19-2025 End: 03-19-2025 Patient encounter procedure Chayo SRINIVASAN -[facility] Work Phone: Start: 03-19-2025 End: 03-19-[address] Eveline Argueta DO Work Phone: -[facility] Start: 03-13-2025 End: 03-13-2025 ambulatory GUERRERO VASQUEZ III Facility:[facility] Start: 03-01-2025 End: 03-01-2025 ambulatory CHRISTIANO CENTENO Facility:[facility] Start: 02-28-2025 End: 02-28-[address] Eveline Argueta DO Work Phone: -Ultrasound [facility] Start: 02-28-2025 End: 02-28-2025 Patient encounter procedure Felicia Castellano [employer]-C -Ultrasound [facility] Work Phone: Start: 02-27-2025 End: 02-28-2025 ambulatory CHRISTIANO A MASCI Facility:[facility] Start: 02-26-2025 End: 02-26-2025 ambulatory CHRISTIANO A MASCI Facility:[facility] Start: 02-08-2025 End: 02-13-2025 Telephone encounter Christiano Jane Taryn DO Work Phone: Hematology/Oncology Comment on above: Patient Update Start: 02-08-2025 End: 02-08-2025 ambulatory Treatment Rm 6 Esdras [facility] Work Phone: Hematology/Oncology Comment on above: 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, right (HCC) (Primary Dx); HER2-positive carcinoma of left breast (HCC); 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); HER2-positive carcinoma of breast (HCC) Start: 02-06-2025 End: 02-06-2025 ambulatory Lab/Port [facility] Work Phone: Hematology/Oncology Comment on above: HER2-positive carcin debra of left breast (HCC); 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) Start: 01-31-2025 End: 02-01-2025 ambulatory Guerrero Vasquez MD Work Phone: [facility] Comment on above: CRP Start: 01-28-2025 End: 01-28-2025 Patient encounter procedure Harjeet Mendez RT(R) Nuclear Medicine Start: 01-28-2025 End: 01-28-2025 ambulatory Harjeet Mendez RT(R) Nuclear Medicine Comment on above: Radiology [place] Start: 01-28-2025 End: 01-28-2025 Subsequent hospital visit by physician [facility] Work Phone: Nuclear Medicine Comment on above: 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, right (HCC) [C50.911, C78.7] Start: 01-23-2025 End: 01-23-2025 Office outpatient visit 25 minutes Guerrero Vasquez MD Work Phone: [facility] Comment on above: Vertebral osteomyeli tis (HCC) (Primary Dx) Start: 01-23-2025 End: 01-23-2025 ambulatory GUERRERO VASQUEZ III Facility:[facility] Start: 01-18-2025 End: 01-18-2025 ambulatory Treatment Rm 6 Esdras [facility] Work Phone: Hematology/Oncology Comment on above: 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, right (HCC) (Primary Dx); HER2-positive carcinoma of left breast (HCC); 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); HER2-positive carcinoma of breast (HCC) Start: 01-16-2025 End: 01-16-2025 Patient encounter procedure Domenic Kelley APRN.GREASE REFINER OPERATOR Work Phone: Hematology/Oncology Start: 01-16-2025 End: 01-16-2025 ambulatory Domenic Kelley APRN.GREASE REFINER OPERATOR Work Phone: Hematology/Oncology Comment on above: HER2-positive carcin debra of left breast (HCC) (Primary Dx) Start: 01-15-2025 End: 01-15-2025 ambulatory Lab/Port [facility] Work Phone: Hematology/Oncology Comment on above: 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 Tami Chang MD Work Phone: -Ultrasound [facility] Start: 01-11-2025 End: 01-11-[address] Eveline Argueta DO -Ultrasound [facility] Work Phone: Start: 01-11-2025 End: 01-11-2025 ambulatory Eveline Argueta Facility:[facility] Start: 01-04-2025 End: 01-07-2025 ambulatory Christiano Centeno DO Work Phone: Hematology/Oncology Comment on above: Scans Start: 12-31-2024 End: 12-31-2024 ambulatory [facility] Facility:[facility] Start: 12-28-2024 End: 01-07-2025 Telephone encounter Christiano Centeno DO Work Phone: Hematology/Oncology Comment on above: Appointment Start: 12-28-2024 End: 12-28-2024 ambulatory Treatment Rm 6 Esdras [facility] Work Phone: Hematology/Oncology Comment on above: Breast cancer, stage 4, left (HCC) (Primary Dx); 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, right (HCC); HER2-positive carcinoma of left breast (HCC); 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); HER2-positive carcinoma of breast (HCC) Start: 12-26-2024 End: 12-26-2024 ambulatory Lab/Port [facility] Work Phone: Hematology/Oncology Comment on above: Breast cancer, stage 4, left (HCC); HER2-positive carcinoma of left breast (HCC); 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); Vertebral osteomyelitis (HCC) Start: 12-12-2024 End: 12-12-2024 ambulatory [facility] Facility:[facility] Start: 12-06-2024 End: 12-06-2024 Telephone encounter Domenic Kelley APRN.CNP Work Phone: Hematology/Oncology Comment on above: Patient Update Start: 12-06-2024 End: 12-06-2024 ambulatory Treatment Rm 7 Esdras [facility] Work Phone: Hematology/Oncology Comment on above: 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, right (HCC) (Primary Dx); HER2-positive carcinoma of left breast (HCC); 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); HER2-positive carcinoma of breast (HCC) Start: 12-05-2024 End: 12-05-2024 Patient encounter procedure Domenic Kelley APRN.GREASE REFINER OPERATOR Work Phone: Hematology/Oncology Start: 12-05-2024 End: 12-05-2024 ambulatory Domenic Kelley DUTY MANAGER.GREASE REFINER OPERATOR Work Phone: Hematology/Oncology Comment on above: HER2-positive carcin debra of left breast (HCC) (Primary Dx) Start: 12-04-2024 End: 12-04-2024 ambulatory Lab/[place] [facility] Work Phone: Hematology/Oncology Comment on above: Breast cancer, stage 4, left (HCC) (Primary Dx); HER2-positive carcinoma of left breast (HCC); 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); Vertebral osteomyelitis (HCC) Start: 12-04-2024 Non-patient / Non-visit Dr. Kira Gray MD -[facility] Work Phone: Start: 12-03-2024 End: 12-03-[address] Tami Chang MD Work Phone: -Laboratory Specimen Start: 12-03-2024 End: 12-03-[address] Jin Rosales MD -Laboratory Specimen Work Phone: Start: 12-03-2024 End: 12-03-2024 ambulatory Jin Rosales Facility:[facility] Start: 12-01-2024 End: 12-01-2024 Patient encounter procedure Marika SCOTT [facility] Work Phone: Start: 12-01-2024 End: 12-01-[address] Tami Chang MD Work Phone: [facility] Start: 11-30-2024 End: 11-30-2024 ambulatory Guerrero Vasquez MD Work Phone: [facility] Department of Infectious Disease Comment on above: Blood test schedule Start: 11-28-2024 End: 11-28-[address] Tami Chang MD Work Phone: -Outpatient Bone Densitometry Start: 11-28-2024 End: 11-28-[address] Eveline Argueta DO -Outpatient Bone Densitometry Work Phone: Start: 11-28-2024 End: 11-28-2024 ambulatory GUERRERO VASQUEZ III Facility:[facility] Start: 11-28-2024 End: 11-28-2024 Office outpatient visit 40 minutes Guerrero Vasquez MD Work Phone: [facility] Department of Infectious Disease Comment on above: Vertebral osteomyeli tis (HCC) (Primary Dx); Psoas syndrome Start: 11-28-2024 End: 11-28-2024 ambulatory GUERRERO VASQUEZ III Facility:[facility] Start: 11-28-2024 End: 11-28-2024 ambulatory Eveline Argueta Facility:[facility] Start: 11-20-2024 End: 11-23-2024 Telephone encounter tSefania BERNARD Hematology/Oncology Comment on above: Social Work Services ; Patient Question Start: 11-20-2024 End: 11-20-[address] Guerrero Vasquez MD -Medical Out Work Phone: Start: 11-20-2024 End: 11-20-[address] Tami Chang MD Work Phone: [facility] Work Phone: Start: 11-16-2024 End: 11-16-2024 ambulatory Treatment 8 [facility] Work Phone: Hematology/Oncology Comment on above: 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, right (HCC) (Primary Dx); HER2-positive carcinoma of left breast (HCC); 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); HER2-positive carcinoma of breast (HCC) Start: 11-14-2024 End: 11-14-2024 ambulatory Lab/[place] [facility] Work Phone: Hematology/Oncology Comment on above: 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, right (HCC) (Primary Dx); Breast cancer, stage 4, left (HCC); HER2-positive carcinoma of left breast (HCC); 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) bone density scan. Start: 11-12-2024 End: 01-12-2025 Follow-up encounter Guerrero Vasquez MD Work Phone: [facility] Department of Infectious Disease Start: 11-12-2024 End: 11-12-2024 ambulatory GUERRERO VASQUEZ III Facility:[facility] Start: 10-26-2024 End: 10-26-2024 ambulatory CHRISTIANO CENTENO Facility:[facility] Start: 10-26-2024 End: 10-26-[address] Guerrero Vasquez MD -Medical Out Work Phone: Start: 10-26-2024 End: 10-26-2024 ambulatory Guerrero Vasquez III Facility:[facility] Start: 10-24-2024 End: 10-24-2024 ambulatory GUERRERO VASQUEZ III Facility:[facility] Start: 10-23-2024 End: 10-23-2024 ambulatory CHRISTIANO CENTENO Facility:[facility] Start: 10-22-2024 End: 10-22-2024 Telephone encounter Guerrero Vasquez MD Work Phone: [facility] Department of Infectious Disease Comment on above: Results Start: 10-19-2024 End: 10-19-[address] Guerrero Vasquez MD -Medical Out Work Phone: Start: 10-19-2024 End: 10-19-[address] Tami Chang MD Work Phone: [facility] Work Phone: Start: 10-17-2024 End: 10-17-2024 Telephone encounter Guerrero Vasquez MD Work Phone: [facility] Department of Infectious Disease Comment on above: CoPat Management Start: 10-17-2024 End: 10-17-2024 ambulatory Guerrero Vasquez MD Work Phone: [facility] Department of Infectious Disease Start: 10-15-2024 End: 10-15-2024 ambulatory [facility] Facility:[facility] Start: 10-12-2024 End: 10-20-2024 Follow-up encounter Guerrero Vasquez MD Work Phone: [facility] Start: 10-10-2024 End: 10-10-2024 ambulatory TAMI CHANG Facility:[facility] Start: 10-08-2024 End: 10-08-2024 Telephone encounter Guerrero Vasquez MD Work Phone: [facility] Start: 10-05-2024 End: 10-08-2024 Telephone encounter Christiano Centeno DO Work Phone: Hematology/Oncology Comment on above: Patient Update Start: 10-03-2024 End: 10-05-2024 Evaluation and management of inpatient TAMI ALEX JOANDREA Facility:[facility] Start: 10-03-2024 End: 10-03-2024 Telephone encounter Christiano Centeno DO Work Phone: Hematology/Oncology Comment on above: Follow Up Slat Grader - Faby escobar (ED Visit ) Start: 10-02-2024 End: 10-03-2024 Emergency department patient visit TAMI ALEX GATICAANDREA Facility:[facility] Start: 10-02-2024 Non-patient / Non-visit Dr. Jin Rosales MD -[facility] Work Phone: Start: 10-02-2024 ambulatory Jin Goessel Facility:[facility] Start: 10-02-2024 End: 10-02-[address] Jni Rosales MD -[facility] Work Phone: Start: 10-02-2024 End: 10-02-2024 ambulatory Jin Rosales Facility:[facility] Start: 09-24-2024 End: 09-24-[address] Tami Chang MD -[facility] Start: 09-24-2024 End: 09-24-2024 ambulatory Tami Chang Facility:[facility] Start: 09-18-2024 End: 09-18-2024 Telephone encounter Christiano Centeno DO Work Phone: Hematology/Oncology Comment on above: Electronic Communica tion Start: 09-14-2024 End: 09-14-2024 ambulatory Treatment Rm [facility] [place] Work Phone: Hematology/Oncology Comment on above: 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, right (HCC) (Primary Dx); HER2-positive carcinoma of left breast (HCC); 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); HER2-positive carcinoma of breast (HCC) Start: 09-14-2024 Non-patient / Non-visit Dr. Jin Rosales MD -[facility] Work Phone: Start: 09-14-2024 ambulatory Jin Rosales Facility:[facility] Start: 09-12-2024 End: 09-12-2024 Transcribe Orders Jin Rosales MD Work Phone: [facility] Laboratory Comment on above: Nonspecific pain in the lumbar region (Primary Dx); Pain, lumbar region Breast cancer, stage 4, left (HCC); HER2-positive carcinoma of left breast (HCC); 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); Pain, lumbar region; Nonspecific pain in the lumbar region Malignant neoplasm o f female breast, unspecified estrogen receptor status, unspecified laterality, unspecified site of breast (HCC) (Primary Dx); HER2-positive carcinoma of left breast (HCC) Start: 09-11-2024 End: 09-11-[address] Jin Rosales MD -[facility] Work Phone: Start: 09-11-2024 End: 09-11-2024 ambulatory Jin Rosales Facility:[facility] Start: 09-10-2024 End: 09-14-2024 Telephone encounter Christiano Centeno DO Work Phone: Hematology/Oncology Comment on above: Patient Question Start: 08-29-2024 Non-patient / Non-visit Dr. Carolyn Hatch DO -[facility] Work Phone: Start: 08-28-2024 Non-patient / Non-visit Dr. Carolyn Hatch [facility] Work Phone: Start: 08-28-2024 Non-patient / Non-visit Dr. Jin Rosales MD -[facility] Start: 08-27-2024 Non-patient / Non-visit Dr. Dominik Carlos [facility] Work Phone: Start: 08-27-2024 Non-patient / Non-visit Dr. Jin Rosales MD -[facility] Start: 08-26-2024 Non-patient / Non-visit Dr. Dominik Carlos [facility] Work Phone: Start: 08-25-2024 End: 08-29-2024 ambulatory [facility] Facility:[facility] Start: 08-25-2024 End: 08-29-2024 Evaluation and management of inpatient Dr. Buzz Alford DO -[facility] 3 Work Phone: Start: 08-25-2024 End: 08-29-[address] Tami Chang MD Work Phone: [facility] Work Phone: Start: 08-24-2024 End: 08-24-2024 ambulatory Treatment 3 [facility] Work Phone: Hematology/Oncology Comment on above: 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, right (HCC) (Primary Dx); HER2-positive carcinoma of left breast (HCC); 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); HER2-positive carcinoma of breast (HCC) Start: 08-21-2024 End: 08-21-2024 ambulatory Lab/[place] [facility] Work Phone: Hematology/Oncology Comment on above: 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, right (HCC) (Primary Dx); Breast cancer, stage 4, left (HCC); HER2-positive carcinoma of left breast (HCC); 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) Start: 08-03-2024 End: 08-03-2024 ambulatory Treatment 3 [facility] Work Phone: Hematology/Oncology Comment on above: 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, right (HCC) (Primary Dx); HER2-positive carcinoma of left breast (HCC); 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); HER2-positive carcinoma of breast (HCC) Start: 08-01-2024 End: 08-01-2024 ambulatory Domenic Kelley APRN.GREASE REFINER OPERATOR Work Phone: Hematology/Oncology Comment on above: Malignant neoplasm o f female breast, unspecified estrogen receptor status, unspecified laterality, unspecified site of breast (HCC) (Primary Dx); HER2-positive carcinoma of left breast (HCC); Encounter for monitoring cardiotoxic drug therapy Start: 08-01-2024 End: 08-01-2024 Patient encounter procedure Domenic Kelley APRN.GREASE REFINER OPERATOR Work Phone: Hematology/Oncology Start: 07-31-2024 End: 07-31-2024 ambulatory Lab/[place] [facility] Work Phone: Hematology/Oncology Comment on above: Breast cancer, stage 4, left (HCC); HER2-positive carcinoma of left breast (HCC); 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) Start: 07-16-2024 End: 07-16-2024 ambulatory LETY ZAZUETA Facility:[facility] Start: 07-16-2024 End: 07-16-2024 Office outpatient visit 40 minutes Lety Zazueta MD Work Phone: General Surgery Comment on above: Flank hernia (Primar y Dx) Start: 07-13-2024 End: 07-13-2024 ambulatory Treatment Rm 3 [place] Work Phone: Hematology/Oncology Comment on above: 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, right (HCC) (Primary Dx); HER2-positive carcinoma of left breast (HCC); 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); HER2-positive carcinoma of breast (HCC) Start: 07-11-2024 End: 07-11-2024 Patient encounter procedure Paola Walker RT(R) Nuclear Medicine Start: 07-11-2024 End: 07-11-2024 ambulatory Paola Walker RT(R) Nuclear Medicine Comment on above: Radiology [place] Start: 07-11-2024 End: 07-11-2024 Subsequent hospital visit by physician [facility] Work Phone: Nuclear Medicine Comment on above: Malignant neoplasm o f female breast, unspecified estrogen receptor status, unspecified laterality, unspecified site of breast (HCC) [C50.919] Start: 07-10-2024 End: 07-10-2024 ambulatory Lab/[place] [facility] Work Phone: Hematology/Oncology Comment on above: Breast cancer, stage 4, left (HCC); HER2-positive carcinoma of left breast (HCC); 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) Start: 07-09-2024 End: 07-09-2024 Subsequent hospital visit by physician Mri [employer] [facility] (I-Stat/1.5t) Work Phone: Radiology Comment on above: Malignant neoplasm o f female breast, unspecified estrogen receptor status, unspecified laterality, unspecified site of breast (HCC) [C50.919] Start: 07-09-2024 End: 07-09-2024 ambulatory Lab/[place] [facility] Work Phone: Hematology/Oncology Comment on above: 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, right (HCC) (Primary Dx) Start: 07-06-2024 End: 07-06-2024 Telephone encounter Christiano Centeno DO Work Phone: Hematology/Oncology Comment on above: Appointment Start: 07-05-2024 End: 07-05-2024 Telephone encounter Marcelo Bhatia LPN General Surgery Comment on above: Patient Question Start: 07-03-2024 End: 07-03-2024 Orders Only Vania Winn APRN.GREASE REFINER OPERATOR Work Phone: General Surgery Comment on above: Flank hernia (Primar y Dx) Start: 07-02-2024 End: 07-02-2024 ambulatory Christiano Centeno DO Work Phone: Hematology/Oncology Comment on above: Hernia Start: 07-01-2024 End: 07-02-2024 ambulatory Christiano Centeno DO Work Phone: Hematology/Oncology Comment on above: Hernia Start: 06-23-2024 End: 06-23-2024 Patient encounter procedure Ben Weaver PA [facility] Work Phone: Start: 06-23-2024 End: 06-25-2024 ambulatory Christiano Centeno DO Work Phone: Hematology/Oncology Comment on above: New drug Start: 06-22-2024 End: 06-22-2024 ambulatory Treatment Rm 8 [facility] Work Phone: Hematology/Oncology Comment on above: 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, right (HCC) (Primary Dx); Thrombocytosis; HER2-positive carcinoma of left breast (HCC); 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); HER2-positive carcinoma of breast (HCC) Start: 06-21-2024 End: 09-08-2024 Telephone encounter Christiano Centeno DO Work Phone: Hematology/Oncology Start: 06-21-2024 End: 06-22-2024 ambulatory CHRISTIANO CENTENO Facility:[facility] Start: 06-21-2024 End: 06-21-2024 Office outpatient visit 25 minutes Christiano Centeno DO Work Phone: Hematology/Oncology Comment on above: Malignant neoplasm o f female breast, unspecified estrogen receptor status, unspecified laterality, unspecified site of breast (HCC) (Primary Dx); 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); Thrombocytosis; Viral URI Start: 06-20-2024 End: 06-22-2024 ambulatory Christiano Centeno DO Work Phone: Hematology/Oncology Comment on above: Concern over blood t estd Start: 06-19-2024 End: 06-19-2024 ambulatory Lab/[place] [facility] Work Phone: Hematology/Oncology Comment on above: Breast cancer, stage 4, left (HCC); HER2-positive carcinoma of left breast (HCC); 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) Start: 06-15-2024 End: 06-15-2024 Chart abstracting Felicia Wooten RN Hematology/Oncology Comment on above: Research (Clinical T rial Pre-Screening ) Start: 06-04-2024 End: 06-04-2024 Emergency department patient visit Dr. Kristofer Hernandez DO -Emergency Department Work Phone: Start: 06-02-2024 End: 06-02-2024 Patient encounter procedure Marika Guillen MOTORBOAT MECHANIC INBOARD-C [facility] Work Phone: Start: 06-02-2024 End: 06-02-2024 ambulatory Marika Guillen Facility:[facility] Start: 06-01-2024 End: 06-01-2024 ambulatory Treatment Rm 8 [facility] Work Phone: Hematology/Oncology Comment on above: Malignant neoplasm m etastatic to liver (HCC) (Primary Dx); HER2-positive carcinoma of breast (HCC) Start: 05-29-2024 End: 05-29-2024 ambulatory [place] [facility] Work Phone: Hematology/Oncology Comment on above: 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, right (HCC) (Primary Dx); 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); Breast cancer, stage 4, left (HCC); HER2-positive carcinoma of left breast (HCC) Start: 05-23-2024 Non-patient / Non-visit Dr. Sam Zamudio MD -[facility] Start: 05-23-2024 End: 05-23-2024 Admission to same day surgery center Dr. Sam Zamudio MD -Endoscopy Work Phone: Start: 05-23-2024 End: 05-23-2024 ambulatory [facility] Facility:[facility] Start: 05-11-2024 End: 05-11-2024 ambulatory Treatment Rm 3 [place] [facility] Work Phone: Hematology/Oncology Comment on above: 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, right (HCC) (Primary Dx); 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); HER2-positive carcinoma of breast (HCC); HER2-positive carcinoma of left breast (HCC) Start: 05-09-2024 End: 05-09-2024 ambulatory Domenic Kelley APRN.GREASE REFINER OPERATOR Work Phone: Hematology/Oncology Comment on above: Malignant neoplasm o f female breast, unspecified estrogen receptor status, unspecified laterality, unspecified site of breast (HCC) (Primary Dx); HER2-positive carcinoma of breast (HCC) Start: 05-09-2024 End: 05-09-2024 Patient encounter procedure Domenic Kelley APRN.GREASE REFINER OPERATOR Work Phone: Hematology/Oncology Start: 05-08-2024 End: 05-08-2024 ambulatory [place] [facility] Work Phone: Hematology/Oncology Comment on above: 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, right (HCC) (Primary Dx); Breast cancer, stage 4, left (HCC); HER2-positive carcinoma of left breast (HCC); 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) Start: 04-30-2024 End: 04-30-[address] Sam Zamudio MD -[facility] Work Phone: Start: 04-30-2024 End: 04-30-2024 ambulatory Christiano Centeno DO Work Phone: Hematology/Oncology Comment on above: Upcoming Start: 04-20-2024 End: 04-20-2024 ambulatory Treatment Rm 6 [place] [facility] Work Phone: Hematology/Oncology Comment on above: Malignant neoplasm m etastatic to liver (HCC) (Primary Dx); HER2-positive carcinoma of breast (HCC) Start: 04-18-2024 End: 04-18-2024 ambulatory [facility]/[place] [facility] Work Phone: Hematology/Oncology Comment on above: Breast cancer, stage 4, left (HCC); HER2-positive carcinoma of left breast (HCC); 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) Start: 04-16-2024 End: 04-16-2024 ambulatory Christiano Centeno DO Work Phone: Hematology/Oncology Comment on above: Malignant neoplasm o f female breast, unspecified estrogen receptor status, unspecified laterality, unspecified site of breast (HCC) (Primary Dx); 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); Encounter for monitoring cardiotoxic drug therapy Start: 04-16-2024 End: 04-16-2024 Patient encounter procedure Christiano Centeno DO Work Phone: Hematology/Oncology Start: 03-30-2024 End: 03-30-2024 ambulatory Treatment Rm 3 [place] [facility] Work Phone: Hematology/Oncology Comment on above: Malignant neoplasm m etastatic to liver (HCC) (Primary Dx); HER2-positive carcinoma of breast (HCC) Start: 03-28-2024 End: 03-28-2024 ambulatory Domenic Kelley APRN.GREASE REFINER OPERATOR Work Phone: Hematology/Oncology Comment on above: 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, right (HCC) (Primary Dx); 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) Start: 03-28-2024 End: 03-28-2024 Patient encounter procedure Domenicioana Kelley DUTY MANAGER.GREASE REFINER OPERATOR Work Phone: Hematology/Oncology Start: 03-27-2024 End: 03-27-2024 ambulatory Lab/[place] [facility] Work Phone: Hematology/Oncology Comment on above: Breast cancer, stage 4, left (HCC); HER2-positive carcinoma of left breast (HCC); 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) Start: 03-26-2024 ambulatory CHRISTIANO CENTENO Facility:[facility] Start: 2024 End: 2024 ambulatory Christiano Centeno DO Work Phone: Hematology/Oncology Comment on above: mRI Start: 03-21-2024 End: 03-21-2024 ambulatory Lab/[place] [facility] Work Phone: Hematology/Oncology Comment on above: Carcinoma of left br east, stage 4 (HCC) (Primary Dx) Start: 03-21-2024 End: 03-21-2024 Subsequent hospital visit by physician Cely [employer] [facility] (I-Stat/1.5t) Work Phone: Radiology Comment on above: Malignant neoplasm m etastatic to liver (HCC) [C78.7] Start: 03-17-2024 End: 03-20-2024 ambulatory Christiano A Taryn DO Work Phone: Hematology/Oncology Comment on above: MRI Start: 03-13-2024 End: 03-15-2024 ambulatory Christiano Centeno DO Work Phone: Hematology/Oncology Comment on above: Scans Start: 03-09-2024 End: 03-09-2024 ambulatory Treatment Rm 3 [facility] Work Phone: Hematology/Oncology Comment on above: Malignant neoplasm m etastatic to liver (HCC) (Primary Dx); HER2-positive carcinoma of breast (HCC) Start: 03-07-2024 End: 03-07-2024 ambulatory Lab/[place] [facility] Work Phone: Hematology/Oncology Comment on above: 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, right (HCC) (Primary Dx); Breast cancer, stage 4, left (HCC); HER2-positive carcinoma of left breast (HCC); 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) Start: 02-28-2024 End: 02-29-2024 ambulatory Christiano Centeno DO Work Phone: Hematology/Oncology Comment on above: Scans Start: 02-21-2024 End: 02-21-2024 ambulatory Lab/[place] [facility] Work Phone: Hematology/Oncology Comment on above: 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, right (HCC) (Primary Dx) Start: 02-20-2024 End: 02-20-2024 Patient encounter procedure Deborah Oconnor APRN.CNP Work Phone: General Surgery Comment on above: Stage IV breast canc er in female (HCC) (Primary Dx); Posadas's esophagus without dysplasia Start: 02-20-2024 End: 02-21-2024 ambulatory Christiano Centeno DO Work Phone: Hematology/Oncology Comment on above: Port bleeding Start: 02-17-2024 End: 02-17-2024 ambulatory Treatment Rm 3 [place] [facility] Work Phone: Hematology/Oncology Comment on above: 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, right (HCC) (Primary Dx); 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); HER2-positive carcinoma of breast (HCC); HER2-positive carcinoma of left breast (HCC) Start: 02-16-2024 End: 02-16-2024 ambulatory Domenic Kelley DUTY MANAGER.GREASE REFINER OPERATOR Work Phone: Hematology/Oncology Comment on above: 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, right (HCC) (Primary Dx); 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); HER2-positive carcinoma of breast (HCC) Start: 02-16-2024 End: 02-16-2024 Patient encounter procedure Domenic Kelley DUTY MANAGER.GREASE REFINER OPERATOR Work Phone: Hematology/Oncology Start: 02-15-2024 End: 02-15-2024 ambulatory Lab/[place] [facility] Work Phone: Hematology/Oncology Comment on above: 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, right (HCC) (Primary Dx); Breast cancer, stage 4, left (HCC); HER2-positive carcinoma of left breast (HCC); 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) Start: 01-27-2024 End: 01-27-2024 ambulatory Treatment Rm 3 [place] [facility] Work Phone: Hematology/Oncology Comment on above: Malignant neoplasm m etastatic to liver (HCC) (Primary Dx); HER2-positive carcinoma of breast (HCC) Start: 01-26-2024 End: 01-26-2024 ambulatory Lab/[place] [facility] Work Phone: Hematology/Oncology Comment on above: 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, right (HCC) (Primary Dx); Breast cancer, stage 4, left (HCC); HER2-positive carcinoma of left breast (HCC); 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) Start: 01-23-2024 End: 01-23-2024 Patient encounter procedure Freda Matos DO Work Phone: [facility] Comment on above: Seroma of breast (Pr imary Dx) Start: 01-23-2024 End: 01-23-2024 ambulatory Christiano Centeno DO Work Phone: Hematology/Oncology Comment on above: FYI Start: 01-06-2024 End: 01-06-2024 Patient encounter procedure Callie Sullivan PA-C Work Phone: General Surgery Comment on above: HER2-positive carcin debra of left breast (HCC) (Primary Dx) Start: 01-06-2024 End: 01-06-2024 ambulatory Treatment Rm 5 [place] Work Phone: Hematology/Oncology Comment on above: Malignant neoplasm m etastatic to liver (HCC) (Primary Dx); HER2-positive carcinoma of breast (HCC) Start: 01-04-2024 End: 01-04-2024 ambulatory Christiano Centeno DO Work Phone: Hematology/Oncology Comment on above: 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, right (HCC) (Primary Dx); HER2-positive carcinoma of left breast (HCC); 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); HER2-positive carcinoma of breast (HCC) Start: 01-04-2024 End: 01-04-2024 Patient encounter procedure Christiano Centeno DO Work Phone: Hematology/Oncology Start: 01-03-2024 End: 01-03-2024 ambulatory Lab/[place] [facility] Work Phone: Hematology/Oncology Comment on above: 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, right (HCC) (Primary Dx); Breast cancer, stage 4, left (HCC); HER2-positive carcinoma of left breast (HCC); 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) Start: 01-02-2024 End: 01-02-2024 ambulatory Lab/[place] [facility] Work Phone: Hematology/Oncology Comment on above: 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, right (HCC) (Primary Dx) Start: 01-02-2024 End: 01-02-2024 Subsequent hospital visit by physician [facility] (I-Stat/1.5t) Work Phone: Radiology Comment on above: 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, right (HCC) [C50.911, C78.7] Start: 12-30-2023 Telephone encounter Freda Matos DO Work Phone: General Surgery Comment on above: Patient Update Appointment Start: 12-29-2023 ambulatory Christiano Hobbs Work Phone: Hematology/Oncology Comment on above: MRI Start: 12-23-2023 End: 12-23-2023 Patient encounter procedure Freda Matos Work Phone: General Surgery Comment on above: HER2-positive carcin debra of left breast (HCC) (Primary Dx) Start: 12-23-2023 End: 12-23-2023 [facility] Start: 12-16-2023 End: 12-16-2023 ambulatory Treatment 2 [facility] Work Phone: Hematology/Oncology Comment on above: Malignant neoplasm m etastatic to liver (HCC) (Primary Dx); HER2-positive carcinoma of left breast (HCC); HER2-positive carcinoma of breast (HCC); 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, right (HCC); Breast cancer, stage 4, left (HCC) Start: 12-06-2023 End: 12-06-2023 ambulatory [facility] Facility:[facility] Start: 11-25-2023 End: 11-25-2023 ambulatory Treatment 2 [facility] Work Phone: Hematology/Oncology Comment on above: 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, right (HCC) (Primary Dx); 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); HER2-positive carcinoma of breast (HCC); HER2-positive carcinoma of left breast (HCC) Start: 11-23-2023 End: 11-23-2023 ambulatory Domenic Kelely APRN.GREASE REFINER OPERATOR Work Phone: Hematology/Oncology Comment on above: 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, right (HCC) (Primary Dx); HER2-positive carcinoma of left breast (HCC); Local recurrence of cancer of left breast (HCC) Start: 11-23-2023 End: 11-23-2023 Patient encounter procedure Domenic Kelley APRN.GREASE REFINER OPERATOR Work Phone: Hematology/Oncology Start: 11-22-2023 End: 11-22-2023 ambulatory Lab/[place] [facility] Work Phone: Hematology/Oncology Comment on above: Breast cancer, stage 4, left (HCC); HER2-positive carcinoma of breast (HCC) Start: 11-21-2023 End: 11-21-2023 Admission to establishment Pac [place] 1 Work Phone: Pre Anesthesia Start: 11-21-2023 End: 11-21-2023 Anesthesia consultation [facility] [place] 1 Work Phone: Pre Anesthesia Comment on above: Grade I diastolic dy sfunction (Primary Dx); Sleep apnea, unspecified type; History of Posadas's esophagus; Hypothyroidism, unspecified type; Basal cell carcinoma (BCC), unspecified site; Chronic back pain, unspecified back location, unspecified back pain laterality; Anxiety and depression; TIA (transient ischemic attack); Stage IV breast cancer in female (HCC) Start: 11-18-2023 Telephone encounter Freda Matos DO Work Phone: General Surgery Comment on above: Patient Question (Pr e op paperwork) Start: 11-17-2023 End: 11-17-2023 Subsequent hospital visit by physician [facility] 2 Work Phone: Radiology Comment on above: Malignant neoplasm m etastatic to liver (HCC) [C78.7] Start: 11-10-2023 Orders Only Amy Grace DEBUBBLIZER [facility] tology/Oncology Comment on above: Malignant neoplasm m etastatic to liver (HCC) (Primary Dx); 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, right (HCC); HER2-positive carcinoma of left breast (HCC) Start: 11-09-2023 ambulatory Freda young DO Work Phone: [facility] Start: 11-09-2023 Telephone encounter Freda Matos DO Work Phone: General Surgery Comment on above: Appointment Start: 11-09-2023 End: 11-09-2023 Patient encounter procedure Freda Matos DO Work Phone: [facility] Comment on above: Seroma of breast (Pr imary Dx); Stage IV breast cancer in female (HCC) Start: 11-07-2023 ambulatory Christiano Hobbs Work Phone: Hematology/Oncology Comment on above: Seroma Start: 11-04-2023 End: 11-04-2023 ambulatory Treatment Rm 6 [facility] Work Phone: Hematology/Oncology Comment on above: Malignant neoplasm m etastatic to liver (HCC) (Primary Dx); Breast cancer, stage 4, left (HCC); HER2-positive carcinoma of breast (HCC) Start: 11-04-2023 End: 11-04-2023 Patient encounter procedure Ech[facility] Work Phone: Cardiology Comment on above: Encounter for monito ring cardiotoxic drug therapy; HER2-positive carcinoma of breast (HCC) Start: 10-24-2023 Telephone encounter Christiano dobbins DO Work Phone: Hematology/Oncology Comment on above: Results Start: 10-20-2023 End: 10-20-2023 ambulatory Lab/[place] [facility] Work Phone: Hematology/Oncology Comment on above: HER2-positive carcin debra of breast (HCC) (Primary Dx) Start: 10-20-2023 End: 10-20-2023 Subsequent hospital visit by physician [facility] (I-Stat/1.5t) Work Phone: Radiology Comment on above: Malignant neoplasm m etastatic to liver (HCC) [C78.7] Start: 10-14-2023 End: 10-14-2023 ambulatory Treatment 6 [facility] Work Phone: Hematology/Oncology Comment on above: Malignant neoplasm m etastatic to liver (HCC) (Primary Dx); HER2-positive carcinoma of breast (HCC) Start: 10-14-2023 End: 10-14-2023 Patient encounter procedure Freda Matos DO Work Phone: General Surgery Comment on above: Seroma of breast (Pr imary Dx); Stage IV breast cancer in female (HCC) Start: 10-14-2023 End: 10-14-2023 ambulatory TAMI CHANG Facility:[facility] Start: 10-12-2023 ambulatory Christiano Hobbs Work Phone: Hematology/Oncology Comment on above: Drain Start: 10-11-2023 Telephone encounter Stefania BERNARD Hematology/Oncology Comment on above: Social Work Services Start: 10-11-2023 End: 10-11-2023 Office outpatient visit 25 minutes Christiano Centeno DO Work Phone: Hematology/Oncology Comment on above: 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, right (HCC) (Primary Dx); 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); HER2-positive carcinoma of left breast (HCC); New daily persistent headache Start: 10-10-2023 End: 10-10-[address] [facility] Work Phone: Start: 10-10-2023 End: 10-10-[address] 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 Comment on above: Seroma of breast (Pr imary Dx); Breast cancer, stage 4, left (HCC) Start: 08-30-2023 End: 08-30-2023 ambulatory Lab/[place] [facility] Work Phone: Hematology/Oncology Comment on above: Carcinoma of left br east, stage 4 (HCC) (Primary Dx); Breast cancer, stage 4, left (HCC); HER2-positive carcinoma of breast (HCC) Start: 08-24-2023 Refill Christiano Centeno D O Work Phone: Hematology/Oncology Comment on above: Refill Request Recent tests Start: 08-22-2023 ambulatory CHRISTIANO Jane TARYN Facility:[facility] Start: 08-22-2023 End: 08-22-2023 Subsequent hospital visit by physician [facility] (1.5t) Radiology Comment on above: Breast cancer, stage 4, left (HCC) [C50.912] Start: 08-22-2023 ambulatory CHRISTIANO CENTENO Facility:[facility] Start: 08-22-2023 End: 08-22-2023 Subsequent hospital visit by physician Pet [facility] PET CT Comment on above: Breast cancer, stage 4, left (HCC) [C50.912] Start: 08-22-2023 End: 08-22-2023 Patient encounter procedure Freda Matos DO Work Phone: [facility] Comment on above: Seroma of breast (Pr imary Dx) Start: 08-12-2023 End: 08-12-2023 ambulatory Treatment Rm 11 [facility] Work Phone: Hematology/Oncology Comment on above: Breast cancer, stage 4, left (HCC) (Primary Dx); HER2-positive carcinoma of breast (HCC); 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) Local recurrence of cancer of left breast (HCC) (Primary Dx); Stage IV breast cancer in female (HCC) Start: 08-12-2023 Telephone encounter Ramila Bolaños RN He matology/Oncology Comment on above: Slat Grader - O ther (Questions ) Start: 08-11-2023 End: 08-11-2023 Patient encounter procedure Freda Matos DO Work Phone: [facility] Comment on above: Carcinoma of left br east, stage 4 (HCC) (Primary Dx); 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, right (HCC); Seroma of breast; HER2-positive carcinoma of left breast (HCC) Start: 08-10-2023 End: 08-10-2023 Patient encounter procedure Callie Sullivan PA-C Work Phone: [facility] Comment on above: Local recurrence of cancer of left breast (HCC) (Primary Dx); Seroma of breast Start: 07-22-2023 End: 07-22-2023 ambulatory Treatment Rm 2 [facility] Work Phone: Hematology/Oncology Comment on above: Malignant neoplasm m etastatic to liver (HCC) (Primary Dx); HER2-positive carcinoma of breast (HCC) Start: 07-20-2023 Telephone encounter Christiano dobbins DO Work Phone: Hematology/Oncology Comment on above: AVS 07/20/23 Start: 07-20-2023 End: 07-20-2023 ambulatory Christiano Centeno DO Work Phone: Hematology/Oncology Comment on above: HER2-positive carcin debra of breast (HCC) (Primary Dx); Breast cancer, stage 4, left (HCC); 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) Start: 07-20-2023 End: 07-20-2023 Patient encounter procedure Christiano Centeno DO Work Phone: [facility] Start: 07-19-2023 End: 07-19-2023 ambulatory Lab/[place] [facility] Work Phone: Hematology/Oncology Comment on above: Breast cancer, stage 4, left (HCC); HER2-positive carcinoma of breast (HCC) Start: 07-18-2023 End: 07-18-2023 Nursing evaluation of patient and report Kelly Aguayo LPN Work Phone: [facility] Comment on above: Local recurrence of cancer of left breast (HCC) (Primary Dx) Start: 06-28-2023 End: 06-29-2023 ambulatory TAMI CHANG Facility:[facility] Start: 06-03-2023 End: 06-03-2023 ambulatory FREDA MATOS Facility:[facility] Start: 05-23-2023 End: 05-23-[address] [facility] Work Phone: Start: 05-23-2023 End: 05-23-2023 Patient encounter procedure [facility] Start: 05-20-2023 Telephone encounter Freda Matos DO Work Phone: General Surgery Comment on above: Appointment Patient Question Start: 05-20-2023 End: 05-20-2023 ambulatory Treatment Rm 11 [facility] Work Phone: Hematology/Oncology Comment on above: Malignant neoplasm m etastatic to liver (HCC) (Primary Dx); HER2-positive carcinoma of breast (HCC) Start: 05-19-2023 ambulatory Freda Lara Kelsie hannah DO Work Phone: [facility] Start: 05-18-2023 Telephone encounter Freda Jane Matos DO Work Phone: General Surgery Comment on above: Appointment; Patient Question Start: 05-18-2023 End: 05-18-2023 ambulatory Christiano Centeno DO Work Phone: Hematology/Oncology Comment on above: Local recurrence of cancer of left breast (HCC) (Primary Dx); HER2-positive carcinoma of breast (HCC); 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) Start: 05-18-2023 End: 05-18-2023 Patient encounter procedure Christiano Centeno DO Work Phone: [facility] Start: 05-17-2023 End: 05-17-2023 Subsequent hospital visit by physician [facility] (I-Stat/1.5t) Work Phone: Radiology Comment on above: HER2-positive carcin debra of breast (HCC) [C50.919] Start: 05-17-2023 End: 05-17-2023 ambulatory Lab/[place] [facility] Work Phone: Hematology/Oncology Comment on above: Malignant neoplasm m etastatic to liver (HCC) (Primary Dx); Breast cancer, stage 4, left (HCC); HER2-positive carcinoma of breast (HCC) Malignant neoplasm m etastatic to liver (HCC) (Primary Dx) Start: 05-05-2023 End: 05-05-2023 Patient encounter procedure Freda Matos DO Work Phone: [facility] Comment on above: Stage IV breast canc er in female (HCC) (Primary Dx); Local recurrence of cancer of left breast (HCC); HER2-positive carcinoma of breast (HCC) Start: 05-02-2023 Refill Christiano Hobbs Work Phone: Hematology/Oncology Comment on above: Refill Request Start: 04-30-2023 Telephone encounter Christiano dobbins DO Work Phone: Hematology/Oncology Comment on above: Refill Request Start: 04-29-2023 End: 04-29-2023 ambulatory Treatment Rm 2 [facility] Work Phone: Hematology/Oncology Comment on above: Breast cancer, stage 4, left (HCC) (Primary Dx); HER2-positive carcinoma of breast (HCC); 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) Start: 04-26-2023 Telephone encounter Christiano dobbins DO Work Phone: Hematology/Oncology Comment on above: Opened In Error Appointment (Dr. Lala camp) Start: 04-21-2023 End: 04-21-2023 Subsequent hospital visit by physician [facility] Start: 04-18-2023 Telephone encounter Christiano dobbins DO Work Phone: Hematology/Oncology Comment on above: Results (Echocardiog milagro) Start: 04-06-2023 End: 04-06-2023 ambulatory Christiano Centeno DO Work Phone: Hematology/Oncology Comment on above: Local recurrence of cancer of left breast (HCC) (Primary Dx); 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); HER2-positive carcinoma of breast (HCC); Encounter for monitoring cardiotoxic drug therapy Start: 04-06-2023 End: 04-06-2023 Patient encounter procedure Christiano Centeno DO Work Phone: [facility] [place] Start: 04-06-2023 Telephone encounter Christiano dobbins DO Work Phone: Hematology/Oncology Comment on above: Nm Pet Request Start: 03-18-2023 End: 03-18-2023 ambulatory Treatment 11 [facility] Work Phone: Hematology/Oncology Comment on above: Breast cancer, stage 4, left (HCC) (Primary Dx); HER2-positive carcinoma of breast (HCC); 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) Start: 03-16-2023 End: 03-16-2023 Subsequent hospital visit by physician Us [facility] 1 Work Phone: Radiology Start: 03-16-2023 End: 03-16-2023 Subsequent hospital visit by physician Diagnostic Mammo [facility] Mammogram Start: 02-25-2023 End: 02-25-2023 ambulatory Treatment Rm 11 [facility] Work Phone: Hematology/Oncology Comment on above: Malignant neoplasm m etastatic to liver (HCC) (Primary Dx); HER2-positive carcinoma of breast (HCC) Start: 02-23-2023 End: 02-23-2023 Patient encounter procedure Christiano Centeno DO Work Phone: [facility] Start: 02-23-2023 End: 02-23-2023 ambulatory Lab/Port [facility] Work Phone: Hematology/Oncology Comment on above: Breast cancer, stage 4, left (HCC); HER2-positive carcinoma of breast (HCC) Local recurrence of cancer of left breast (HCC) (Primary Dx); 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); HER2-positive carcinoma of breast (HCC) Start: 02-14-2023 End: 02-14-2023 Patient encounter procedure [facility] Start: 02-03-2023 End: 02-03-2023 ambulatory Treatment 9 [facility] Work Phone: Hematology/Oncology Comment on above: Breast cancer, stage 4, left (HCC) (Primary Dx); HER2-positive carcinoma of breast (HCC); 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) Start: 01-24-2023 End: 01-24-2023 ambulatory Christiano Centeno DO Work Phone: Hematology/Oncology Comment on above: Tests CAT Start: 01-24-2023 End: 01-24-[address] Tami Chang Work Phone: [facility]-Laboratory, Specimen Work Phone: Start: 01-19-2023 End: 01-19-2023 Subsequent hospital visit by physician M[facility] (I-Stat/1.5t) Work Phone: Radiology Comment on above: Breast cancer, stage 4, left (HCC) [C50.912] Start: 01-19-2023 End: 01-19-2023 ambulatory Lab/[place] [facility] Work Phone: Hematology/Oncology Comment on above: Malignant neoplasm m etastatic to liver (HCC) (Primary Dx) Start: 01-17-2023 ambulatory Christiano Hobbs Work Phone: Hematology/Oncology Comment on above: Meds Start: 01-14-2023 End: 01-14-[address] Tami Chang Work Phone: [facility] Work Phone: Start: 01-14-2023 End: 01-14-[address] Tami Chang Work Phone: [facility]-Laboratory, Specimen Work Phone: Start: 01-14-2023 End: 01-14-[address] Tami Chang Work Phone: [facility] Work Phone: Start: 01-13-2023 End: 01-13-2023 ambulatory Treatment Rm 9 [facility] Work Phone: Hematology/Oncology Comment on above: Malignant neoplasm m etastatic to liver (HCC) (Primary Dx); HER2-positive carcinoma of breast (HCC) Start: 01-12-2023 End: 01-12-2023 ambulatory Christiano Centeno DO Work Phone: Hematology/Oncology Comment on above: Breast cancer, stage 4, left (HCC) (Primary Dx); 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); HER2-positive carcinoma of breast (HCC) Start: 01-12-2023 End: 01-12-2023 Patient encounter procedure Christiano Centeno DO Work Phone: [facility] Start: 01-04-2023 ambulatory Christiano Hobbs Work Phone: Hematology/Oncology Comment on above: Tests Start: 01-03-2023 ambulatory Christiano Hobbs Work Phone: Hematology/Oncology Comment on above: Test schedule Start: 12-31-2022 End: 12-31-[address] Tami Chang Work Phone: [facility] Work Phone: Start: 12-26-2022 End: 12-26-2022 Emergency department patient visit [facility] Work Phone: Start: 12-23-2022 End: 12-23-2022 ambulatory Treatment 8 [facility] Work Phone: Hematology/Oncology Comment on above: Breast cancer, stage 4, left (HCC) (Primary Dx); HER2-positive carcinoma of breast (HCC); 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) Start: 12-15-2022 ambulatory Christiano Hobbs Work Phone: [facility] Start: 12-15-2022 Patient encounter procedure Christiano Centeno DO Work Phone: Hematology/Oncology Comment on above: Referral Start: 12-08-2022 Telephone encounter Christiano dobbins DO Work Phone: Hematology/Oncology Comment on above: Referral Information Start: 12-01-2022 End: 12-01-2022 Patient encounter procedure Christiano Centeno DO Work Phone: [facility] Start: 12-01-2022 End: 12-01-2022 ambulatory Lab/[place] [facility] Work Phone: Hematology/Oncology Comment on above: Breast cancer, stage 4, left (HCC); HER2-positive carcinoma of breast (HCC) Breast cancer, stage 4, left (HCC) (Primary Dx); HER2-positive carcinoma of breast (HCC); Local recurrence of cancer of left breast (HCC); 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); Gastroesophageal reflux disease, unspecified whether esophagitis present; Epigastric pain; Posadas's esophagus without dysplasia Start: 11-30-2022 Orders Only Christiano Hobbs Work Phone: Hematology/Oncology Comment on above: Breast cancer, stage 4, left (HCC) (Primary Dx); HER2-positive carcinoma of breast (HCC) Start: 11-11-2022 End: 11-11-2022 ambulatory Treatment 9 [facility] Work Phone: Hematology/Oncology Comment on above: Malignant neoplasm m etastatic to liver (HCC) (Primary Dx); HER2-positive carcinoma of breast (HCC) Start: 11-10-2022 End: 11-10-2022 ambulatory Lab/[place] [facility] Work Phone: Hematology/Oncology Comment on above: Malignant neoplasm o f breast in female, estrogen receptor positive, unspecified laterality, unspecified site of breast (HCC); 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) Start: 10-14-2022 End: 10-14-2022 Subsequent hospital visit by physician [facility] (I-Stat) Work Phone: Cat Scan Comment on above: Breast cancer, stage 4, left (HCC) [C50.912] Start: 10-14-2022 End: 10-14-2022 ambulatory Lab/[place] [facility] Work Phone: Hematology/Oncology Comment on above: Breast cancer, stage 4, left (HCC) (Primary Dx) Start: 10-13-2022 Telephone encounter Christiano dobbins DO Work Phone: Hematology/Oncology Comment on above: Appointment Start: 09-30-2022 End: 09-30-2022 ambulatory Treatment 8 [facility] Work Phone: Hematology/Oncology Comment on above: Malignant neoplasm m etastatic to liver (HCC) (Primary Dx); HER2-positive carcinoma of breast (HCC) Start: 09-29-2022 End: 09-29-2022 ambulatory Lab/[place] [facility] Work Phone: Hematology/Oncology Comment on above: Malignant neoplasm o f breast in female, estrogen receptor positive, unspecified laterality, unspecified site of breast (HCC); 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) Start: 09-10-2022 ambulatory Christiano Zhang O Work Phone: Hematology/Oncology Comment on above: Upcoming tests Start: 09-09-2022 End: 09-09-2022 ambulatory Treatment 8 [facility] Work Phone: Hematology/Oncology Comment on above: Malignant neoplasm m etastatic to liver (HCC) (Primary Dx); HER2-positive carcinoma of breast (HCC) Start: 09-08-2022 End: 09-08-2022 Patient encounter procedure Christiano Centeno DO Work Phone: [facility] Start: 09-08-2022 End: 09-08-2022 ambulatory Lab/[place] [facility] Work Phone: Hematology/Oncology Comment on above: Malignant neoplasm o f breast in female, estrogen receptor positive, unspecified laterality, unspecified site of breast (HCC); 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) Breast cancer, stage 4, left (HCC) (Primary Dx); HER2-positive carcinoma of breast (HCC); 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) Start: 08-19-2022 End: 08-19-2022 ambulatory Treatment 8 [facility] Work Phone: Hematology/Oncology Comment on above: Liver metastases (HC C) (Primary Dx); HER2-positive carcinoma of breast (HCC) Start: 08-18-2022 End: 08-18-2022 ambulatory Lab/[place] [facility] Work Phone: Hematology/Oncology Comment on above: Malignant neoplasm o f breast in female, estrogen receptor positive, unspecified laterality, unspecified site of breast (HCC); Liver metastases (HCC) Start: 08-09-2022 ambulatory Christiano Hobbs Work Phone: Hematology/Oncology Comment on above: LEtrozole Start: 07-29-2022 End: 07-29-2022 ambulatory Treatment Rm 8 [facility] Work Phone: Hematology/Oncology Comment on above: Liver metastases (HC C) (Primary Dx); HER2-positive carcinoma of breast (HCC) Start: 07-28-2022 End: 07-28-2022 ambulatory Lab/[place] [facility] Work Phone: Hematology/Oncology Comment on above: Local recurrence of cancer of left breast (HCC) (Primary Dx); Malignant neoplasm of breast in female, estrogen receptor positive, unspecified laterality, unspecified site of breast (HCC); Liver metastases (HCC); Anemia, unspecified type Start: 07-21-2022 End: 07-21-[address] Tami Chang Work Phone: [facility] Start: 07-16-2022 Refill Santa Rodriguez MD Work Phone: Hematology/Oncology Comment on above: Refill Request Start: 07-12-2022 End: 07-12-[address] Tami Chang Work Phone: [facility] Work Phone: Start: 07-12-2022 End: 07-12-[address] Tami Chang Work Phone: [facility]-Laboratory, Specimen Start: 07-07-2022 End: 07-07-2022 ambulatory Lab/[place] [facility] Work Phone: Hematology/Oncology Comment on above: Liver metastases (HC C) (Primary Dx); Malignant neoplasm of breast in female, estrogen receptor positive, unspecified laterality, unspecified site of breast (HCC) Start: 06-24-2022 Get Medical Advice Christiano orantes DO Work Phone: Hematology/Oncology Comment on above: Refill Start: 06-17-2022 End: 06-17-2022 ambulatory Treatment Rm 9 [facility] Work Phone: Hematology/Oncology Comment on above: Liver metastases (HC C) (Primary Dx); HER2-positive carcinoma of breast (HCC) Start: 06-16-2022 End: 06-16-2022 Patient encounter procedure Christiano Centeno DO Work Phone: [facility] [employer] Start: 06-16-2022 End: 06-16-2022 ambulatory Lab/[place] [facility] Work Phone: Hematology/Oncology Comment on above: Breast cancer, stage 4, left (HCC) (Primary Dx); Malignant neoplasm of breast in female, estrogen receptor positive, unspecified laterality, unspecified site of breast (HCC); Liver metastases (HCC) Breast cancer, stage 4, left (HCC) (Primary Dx); HER2-positive carcinoma of breast (HCC); Liver metastases (HCC) Start: 06-14-2022 End: 06-14-2022 Subsequent hospital visit by physician Mri Radio [facility] (I-Stat/1.5t) Work Phone: Radiology Comment on above: HER2-positive carcin debra of breast (HCC) [C50.919] Start: 06-14-2022 End: 06-14-2022 ambulatory Lab/[place] [facility] Work Phone: Hematology/Oncology Comment on above: Breast cancer, stage 4, left (HCC) (Primary Dx) Start: 05-26-2022 End: 05-26-2022 ambulatory Lab/[place] [facility] Work Phone: Hematology/Oncology Comment on above: Malignant neoplasm o f breast in female, estrogen receptor positive, unspecified laterality, unspecified site of breast (HCC); Liver metastases (HCC) Start: 05-24-2022 ambulatory Christiano Hobbs Work Phone: [facility] [employer] Start: 05-24-2022 Patient encounter procedure Christiano Centeno DO Work Phone: Hematology/Oncology Comment on above: Ramila, i went [facility] Sat am and testing positive for uti they prescribed 500 mg Cephalexin Start: 05-22-2022 End: 05-22-[address] Tami Chang Work Phone: [facility] Start: 05-21-2022 Telephone encounter Christiano dobbins DO Work Phone: Hematology/Oncology Comment on above: Refill Request Start: 05-14-2022 ambulatory Christiano Zhang O Work Phone: Hematology/Oncology Comment on above: MRI Start: 05-05-2022 End: 05-05-2022 Patient encounter procedure Christiano Centeno DO Work Phone: [facility] Start: 05-05-2022 End: 05-05-2022 ambulatory Lab/[place] [facility] Work Phone: Hematology/Oncology Comment on above: Liver metastases (HC C) (Primary Dx); Malignant neoplasm of breast in female, estrogen receptor positive, unspecified laterality, unspecified site of breast (HCC) HER2-positive carcin debra of breast (HCC) (Primary Dx); Liver metastases (HCC) Start: 04-22-2022 End: 04-22-2022 Subsequent hospital visit by physician Diagnostic Mammo [facility] Start: 03-25-2022 End: 03-25-2022 ambulatory Treatment Rm 9 [place] [facility] Work Phone: Hematology/Oncology Comment on above: Liver metastases (HC C) (Primary Dx); HER2-positive carcinoma of breast (HCC) Start: 2022 End: 2022 Subsequent hospital visit by physician Mri Radio [facility] (I-Stat/1.5t) Work Phone: Radiology Comment on above: HER2-positive carcin debra of breast (HCC) [C50.919] Start: 2022 End: 2022 ambulatory Lab/[place] [facility] Work Phone: Hematology/Oncology Comment on above: Malignant neoplasm o f breast in female, estrogen receptor positive, unspecified laterality, unspecified site of breast (HCC); Liver metastases (HCC) Start: 02-23-2022 End: 02-23-2022 ambulatory Treatment 13 [facility] Work Phone: Hematology/Oncology Comment on above: Liver metastases (HC C) (Primary Dx); HER2-positive carcinoma of breast (HCC) Start: 02-18-2022 Telephone encounter Christiano dobbins DO Work Phone: Hematology/Oncology Comment on above: Results (PET scan) Start: 02-16-2022 End: 02-16-2022 Subsequent hospital visit by physician Pet Ct Mobile [address] Comment on above: HER2-positive carcin debra of breast (HCC) [C50.919] Start: 02-10-2022 End: 02-10-[address] Tami Chang Work Phone: [facility] Work Phone: Start: 02-10-2022 End: 02-10-[address] Tami Chang Work Phone: [facility] Start: 02-03-2022 End: 02-03-2022 ambulatory Tony Murray MD Work Phone: Endocrine Surgery Comment on above: Liver metastases (HC C) (Primary Dx) Start: 02-03-2022 End: 02-03-2022 Telemedicine consultation with patient Tony Murray MD Work Phone: [facility] Start: 02-02-2022 End: 02-02-2022 ambulatory Treatment 13 [facility] Work Phone: Hematology/Oncology Comment on above: Liver metastases (HC C) (Primary Dx); HER2-positive carcinoma of breast (HCC) Start: 02-01-2022 End: 02-01-2022 ambulatory Christiano Centeno DO Work Phone: Hematology/Oncology Comment on above: HER2-positive carcin debra of breast (HCC) (Primary Dx); Liver metastases (HCC) PET/CT Start: 02-01-2022 End: 02-01-2022 Patient encounter procedure Christiano Centeno DO Work Phone: [facility] Start: 01-22-2022 Telephone encounter Tony omer MD Work Phone: Endocrine Surgery Comment on above: Consult (FACE SHEET) Start: 01-20-2022 Refill Christiano Hobbs Work Phone: Hematology/Oncology Comment on above: Refill Request Start: 01-14-2022 ambulatory Christiano Hobbs Work Phone: Hematology/Oncology Comment on above: Dr Murray Start: 01-13-2022 ambulatory Christiano Hobbs Work Phone: Hematology/Oncology Comment on above: Port Start: 01-12-2022 End: 01-12-2022 ambulatory Treatment Rm 13 [place] [facility] Work Phone: Hematology/Oncology Comment on above: Malignant neoplasm o f breast in female, estrogen receptor positive, unspecified laterality, unspecified site of breast (HCC) (Primary Dx); Liver metastases (HCC); HER2-positive carcinoma of breast (HCC) Start: 01-11-2022 ambulatory Christiano Hobbs Work Phone: Hematology/Oncology Comment on above: MRI Start: 01-11-2022 Telephone encounter Santa Rodriguez MD Work Phone: Hematology/Oncology Comment on above: Results Slat Grader - O ther ([facility] Follow-up ) Start: 01-11-2022 End: 01-11-2022 Subsequent hospital visit by physician Xr [facility] Joi Newsome Work Phone: Radiology Comment on above: Malignant neoplasm o f breast in female, estrogen receptor positive, unspecified laterality, unspecified site of breast (HCC) [C50.919, Z17.0] Start: 01-01-2022 Telephone encounter Christiano dobbins DO Work Phone: Hematology/Oncology Comment on above: Follow Up Start: 12-21-2021 End: 12-21-2021 ambulatory Treatment Rm 11 [place] [facility] Work Phone: Hematology/Oncology Comment on above: Liver metastases (HC C) (Primary Dx); HER2-positive carcinoma of breast (HCC) Start: 12-18-2021 End: 12-18-2021 Patient encounter procedure Santa Rodriguez MD Work Phone: [facility] Start: 12-18-2021 End: 12-18-2021 ambulatory Lab/[place] [facility] Work Phone: Hematology/Oncology Comment on above: Malignant neoplasm o f breast in female, estrogen receptor positive, unspecified laterality, unspecified site of breast (HCC); Liver metastases (HCC) Liver metastases (HC C) (Primary Dx); Malignant neoplasm of breast in female, estrogen receptor positive, unspecified laterality, unspecified site of breast (HCC); HER2-positive carcinoma of breast (HCC) Start: 12-16-2021 ambulatory Tami gonsales Work Phone: [facility] Comment on above: Radiology MRI Start: 12-16-2021 Patient encounter procedure Tami Johnson Rehanmihai Work Phone: [facility] Start: 12-16-2021 End: 12-16-2021 Subsequent hospital visit by physician [facility] (I-Stat/1.5t) [facility] Comment on above: Liver metastases (HC C) [C78.7] Start: 12-01-2021 End: 12-01-2021 ambulatory Treatment Rm 7 [place] [facility] Work Phone: Hematology/Oncology Comment on above: Malignant neoplasm o f breast in female, estrogen receptor positive, unspecified laterality, unspecified site of breast (HCC) (Primary Dx); Liver metastases (HCC) Start: 12-01-2021 Telephone encounter Christiano dobbins DO Work Phone: Hematology/Oncology Comment on above: Results (Low calcium ) Start: 11-30-2021 Orders Only Christiano Hobbs Work Phone: Hematology/Oncology Comment on above: Malignant neoplasm o f breast in female, estrogen receptor positive, unspecified laterality, unspecified site of breast (HCC) (Primary Dx); Liver metastases (HCC) Start: 11-13-2021 Telephone encounter Christiano dobbins DO Work Phone: Hematology/Oncology Comment on above: Patient Update (FYI) Start: 11-13-2021 End: 11-13-[address] Tami Chang Work Phone: [facility] Start: 11-09-2021 ambulatory Christiano Hobbs Work Phone: Hematology/Oncology Comment on above: My left thigh Start: 11-09-2021 Telephone encounter Christiano dobbins DO Work Phone: Hematology/Oncology Comment on above: Results (Hip x-ray) Start: 11-06-2021 End: 11-06-2021 Subsequent hospital visit by physician Xr [facility] Work Phone: Radiology Comment on above: Malignant neoplasm o f breast in female, estrogen receptor positive, unspecified laterality, unspecified site of breast (HCC) [C50.919, Z17.0] Start: 11-06-2021 End: 11-06-2021 ambulatory Christiano Centeno DO Work Phone: Hematology/Oncology Comment on above: Malignant neoplasm o f breast in female, estrogen receptor positive, unspecified laterality, unspecified site of breast (HCC) (Primary Dx); Liver metastases (HCC); Pain in left hip Start: 11-06-2021 End: 11-06-2021 Patient encounter procedure Christiano Centeno DO Work Phone: [facility] [employer] Start: 11-03-2021 End: 11-03-2021 ambulatory Lab/[place] [facility] Work Phone: Hematology/Oncology Comment on above: Malignant neoplasm o f breast in female, estrogen receptor positive, unspecified laterality, unspecified site of breast (HCC) Start: 11-03-2021 End: 11-03-2021 Subsequent hospital visit by physician Ade [facility] (I-Stat) Work Phone: Cat Scan Comment on above: Malignant neoplasm o f breast in female, estrogen receptor positive, unspecified laterality, unspecified site of breast (HCC) [C50.919, Z17.0] Start: 10-21-2021 Telephone encounter Christiano dobbins DO Work Phone: Ambulatory Surgery Comment on above: Medical Question Start: 10-08-2021 End: 10-08-[address] [facility] Bone Densitometry Start: 09-30-2021 ambulatory Christiano Zhang O Work Phone: Hematology/Oncology Comment on above: test result Start: 09-28-2021 End: 09-28-2021 ambulatory Treatment Rm 5 [facility] Work Phone: Hematology/Oncology Comment on above: Liver metastases (HC C) (Primary Dx); Malignant neoplasm of breast in female, estrogen receptor positive, unspecified laterality, unspecified site of breast (HCC) Start: 09-25-2021 End: 09-25-2021 Patient encounter procedure Christiano Centeno DO Work Phone: [facility] [employer] Start: 09-25-2021 End: 09-25-2021 ambulatory Lab/Port [facility] Work Phone: Hematology/Oncology Comment on above: Malignant neoplasm o f breast in female, estrogen receptor positive, unspecified laterality, unspecified site of breast (HCC) Malignant neoplasm o f breast in female, estrogen receptor positive, unspecified laterality, unspecified site of breast (HCC) (Primary Dx); Liver metastases (HCC); HER2-positive carcinoma of breast (HCC) Start: 09-07-2021 End: 09-07-2021 ambulatory Treatment Rm 9 [facility] Work Phone: Hematology/Oncology Comment on above: Liver metastases (HC C) (Primary Dx); Malignant neoplasm of breast in female, estrogen receptor positive, unspecified laterality, unspecified site of breast (HCC); Encounter for antineoplastic immunotherapy Start: 02-19-2021 Telephone encounter Christiano dobbins DO Work Phone: Hematology/Oncology Comment on above: Results Procedures Date Procedure Procedure Detail Performing Clinician Start: 02-28-[address] Eveline Argueta DO Work Phone: Start: 02-06-2025 Blood count complete auto&auto difrntl wbc Christiano Centeno DO Work Phone: Start: 01-28-[address] atten uation skull base mid-thigh Christiano Centeno DO Work Phone: Start: 01-28-2025 Gluc bld gluc mntr d ev cleared fda spec home use [facility] Provider Start: 01-15-2025 Blood count complete auto&auto difrntl wbc Domenic Kelley DUTY MANAGER.GREASE REFINER OPERATOR Work Phone: Start: 01-11-[address] Jane Chang MD Work Phone: Start: 12-26-2024 Blood count complete auto&auto difrntl wbc Christiano Centeno DO Work Phone: Start: 12-04-2024 Blood count complete auto&auto difrntl wbc Christiaon Centeno DO Work Phone: Start: 12-04-2024 C-reactive protein Lily Vasquez MD Work Phone: Start: 12-03-[address] Tami armstrong MD Work Phone: Start: 11-28-2024 Dual energy X-ray absorptiometry Dr. Tami Chang MD Work Phone: Start: 11-14-2024 Blood count complete auto&auto difrntl wbc Christiano Centeno DO Work Phone: Start: 10-19-2024 C-reactive protein Lily Vasquez MD Work Phone: Start: 10-19-2024 CBC panel - Blood by Automated count Guerrero Vasquez MD Work Phone: Start: 10-19-2024 Comprehensive metabo lic 2000 panel - Serum or Plasma Guerrero Vasquez MD Work Phone: Start: 10-19-[address] Tami Chang MD Work Phone: Start: 10-15-2024 Echocardiography CHRISTIANO ORANTES Start: 10-02-2024 MRI of lumbar spine with contrast Dr. Tami Chang MD Work Phone: Start: 09-12-2024 Blood count complete auto&auto difrntl wbc Christiano Lara Masci DO Work Phone: Start: 09-11-2024 X-ray of lumbosacral spine Dr. Tami Chang MD Work Phone: Start: 08-28-2024 Injection of facet joint Dr. Tami Chang MD Work Phone: Start: 08-28-2024 Injection of spinal epidural space Dr. Tami Chang MD Work Phone: Start: 08-28-2024 Local anesthetic lum bar facet joint nerve block Dr. Tami Chang MD Work Phone: Start: 08-28-2024 X-ray of lumbar spin e, two or three views Dr. Tami Chang MD Work Phone: Start: 08-27-2024 MRI of lumbar spine with contrast Dr. Tami Chang MD Work Phone: Start: 08-26-[address] Tami Chang MD Work Phone: Start: 08-25-2024 Urnls dip stick/tabl et reagent auto microscopy Dr. Tami Chang MD Work Phone: Start: 08-25-2024 CT of lumbar spine Dr. Tami Chang MD Work Phone: Start: 08-21-2024 Blood count complete auto&auto difrntl wbc Christiano Rosei DO Work Phone: Start: 07-31-2024 Blood count complete auto&auto difrntl wbc Christiano Lara Masci DO Work Phone: Start: 07-11-2024 Gluc bld gluc mntr d ev cleared fda spec home use [facility] Provider Start: 07-10-2024 Blood count complete auto&auto difrntl wbc Christiano Lara Masci DO Work Phone: Start: 06-19-2024 Blood count complete auto&auto difrntl wbc Christiano Lara Masci DO Work Phone: Start: 06-04-2024 Plain chest X-ray Dr. Jane Chang MD Work Phone: Start: 05-29-2024 Blood count complete auto&auto difrntl wbc Christiano Lara Masci DO Work Phone: Start: 05-08-2024 Blood count complete auto&auto difrntl wbc Christiano Lara Masci DO Work Phone: Start: 04-18-2024 Blood count complete auto&auto difrntl wbc Christiano Lara Masci DO Work Phone: Start: 03-27-2024 Blood count complete auto&auto difrntl wbc Christiano Lara Masci DO Work Phone: Start: 03-07-2024 Blood count complete auto&auto difrntl wbc Christiano Lara Masci DO Work Phone: Start: 02-15-2024 Blood count complete auto&auto difrntl wbc Christiano Lara Masci DO Work Phone: Start: 01-26-2024 Blood count complete auto&auto difrntl wbc Christiano Lara Masci DO Work Phone: Start: 01-03-2024 Blood count complete auto&auto difrntl wbc Christiano Lara Masci DO Work Phone: Start: 12-16-2023 Blood count complete auto&auto difrntl wbc Domenic Kelley DUTY MANAGER.GREASE REFINER OPERATOR Work Phone: Start: 11-22-2023 Blood count complete auto&auto difrntl wbc Christiano Lara Masci DO Work Phone: Start: 11-04-2023 Blood count complete auto&auto difrntl wbc Christiano Lara Masci DO Work Phone: Start: 11-04-2023 Echo tthrc r-t 2d w/ wom-mode compl spec&colr d Christiano Lara Masci DO Work Phone: Start: 10-20-2023 Mri brain brain stem w/o w/contrast material Christiano Lara Masci DO Work Phone: Start: 10-10-2023 Blood count complete auto&auto difrntl wbc Christiano Lara Masci DO Work Phone: Start: 09-23-2023 Blood count complete auto&auto difrntl wbc Christiano Lara Masci DO Work Phone: Start: 08-30-2023 Blood count complete auto&auto difrntl wbc Christiano Lara Masci DO Work Phone: Start: 08-12-2023 Blood count complete auto&auto difrntl wbc Christiano aLra Masci DO Work Phone: Start: 07-19-2023 Blood count complete auto&auto difrntl wbc Christiano Lara Masci DO Work Phone: Start: 05-17-2023 Mri abdomen w/o & w/ contrast material Christiano Lara Masci DO Work Phone: Start: 05-17-2023 Blood count complete auto&auto difrntl wbc Christiano Lara Masci DO Work Phone: Start: 04-29-2023 Blood count complete auto&auto difrntl wbc Christiano Lara Masci DO Work Phone: Start: 03-18-2023 Blood count complete auto&auto difrntl wbc Christiano Lara Masci DO Work Phone: Start: 03-16-2023 Us breast uni real t traci with image limited Kristofer Fong MD Work Phone: Start: 03-16-2023 Digital breast tomos ynthesis bilateral Kristofer Fong MD Work Phone: Start: 02-23-2023 Blood count complete auto&auto difrntl wbc Christiano Lara Masci DO Work Phone: Start: 02-03-2023 Blood count complete auto&auto difrntl wbc Christiano Lara Masci DO Work Phone: Start: 01-24-2023 Bacteria identified in Urine by Culture Dr. Tami Chang Work Phone: Start: 01-24-[address] Tami armstrong Work Phone: Start: 01-19-2023 Mri abdomen w/o & w/ contrast material Christiano A Masci DO Work Phone: Start: 01-14-[address] Tami armstrong Work Phone: Start: 12-23-2022 Blood count complete auto&auto difrntl wbc Christiano A Masci DO Work Phone: Start: 12-01-2022 Blood count complete auto&auto difrntl wbc Christiano A Masci DO Work Phone: Start: 11-10-2022 Blood count complete auto&auto difrntl wbc Christiano A Masci DO Work Phone: Start: 10-14-2022 Ct thorax w/o contra st material Christiano A Masci DO Work Phone: Start: 09-29-2022 Blood count complete auto&auto difrntl wbc Christiano A Masci DO Work Phone: Start: 09-08-2022 Blood count complete auto&auto difrntl wbc Christiano A Masci DO Work Phone: Start: 08-18-2022 Blood count complete auto&auto difrntl wbc Christiano A Masci DO Work Phone: Start: 07-28-2022 Blood count complete auto&auto difrntl wbc Christiano A Masci DO Work Phone: Start: 07-07-2022 Blood count complete auto&auto difrntl wbc Christiano A Masci DO Work Phone: Start: 06-16-2022 Blood count complete auto&auto difrntl wbc Christiano A Masci DO Work Phone: Start: 06-14-2022 Mri abdomen w/o & w/ contrast material Christiano A Masci DO Work Phone: Start: 05-26-2022 Blood count complete auto&auto difrntl wbc Christiano A Masci DO Work Phone: Start: 05-05-2022 Blood count complete auto&auto difrntl wbc Christiano A Masci DO Work Phone: Start: 04-22-2022 Digital breast tomos ynthesis bilateral Freda A Carlo DO Work Phone: Start: 2022 Mri brain brain stem w/o w/contrast material Christiano Lara Masci DO Work Phone: Start: 2022 Blood count complete auto&auto difrntl wbc Christiano Lara Masci DO Work Phone: Start: 02-16-[address] atten uation skull base mid-thigh Christiano Lara Masci DO Work Phone: Start: 01-12-2022 Blood count complete auto&auto difrntl wbc Christiano Lara Masci DO Work Phone: Start: 01-11-2022 Radiologic exam chest 2 views Santa Rodriguez MD Work Phone: Start: 12-18-2021 Blood count complete auto&auto difrntl wbc Christiano Lara Masci DO Work Phone: Start: 12-18-2021 Adult depression scr eening assessment Lab/[place] [facility] Work Phone: Start: 12-16-2021 Mri abdomen w/o & w/ contrast material Jalyn Ramos MD Work Phone: Start: 12-01-2021 Blood count complete auto&auto difrntl wbc Christiano Lara Masci DO Work Phone: Start: 11-06-2021 Radex hip unilateral with pelvis 2-3 views Christiano Lara Masci DO Work Phone: Start: 11-03-2021 Ct abdomen & pelvis w/contrast material Christiano Lara Masci DO Work Phone: Start: 11-03-2021 Ct thorax w/contrast material Christiano Lara Masci DO Work Phone: Start: 11-03-2021 Blood count complete auto&auto difrntl wbc Christiano Lara Masci DO Work Phone: Start: 10-08-2021 Dual energy X-ray absorptiometry Start: 09-25-2021 Blood count complete auto&auto difrntl wbc Christiano Rosei DO Work Phone: Start: 09-24-2021 Adult depression scr eening assessment Lab/Port [facility] Work Phone: Start: 09-07-2021 Blood count complete auto&auto difrntl wbc Christiano A Oswaldi DO Work Phone: Start: 06-30-2021 Adult depression scr eening assessment Treatment [facility] Work Phone: Bacteria identified in Urine by Culture Dr. Tami Chang Work Phone: Urine culture Dr. Tami beyer Work Phone: Plan of Treatment Date Care Activity Detail Author Start: 02-07-2028 Diabetes Screening Diabetes Screening [facility] Start: 01-16-2028 Diabetes Screening Diabetes Screening [facility] Start: 12-27-2027 Diabetes Screening Diabetes Screening [facility] Start: 12-13-2027 Urine microalbumin profile [facility] Start: 12-05-2027 Diabetes Screening Diabetes Screening [facility] Start: 11-15-2027 Diabetes Screening Diabetes Screening [facility] Start: 10-20-2027 Diabetes Screening Diabetes Screening [facility] Start: 10-05-2027 Diabetes Screening Diabetes Screening [facility] Start: 10-04-2027 Diabetes Screening Diabetes Screening [facility] Start: 09-13-2027 Diabetes Screening Diabetes Screening [facility] Start: 08-22-2027 Diabetes Screening Diabetes Screening [facility] Start: 07-31-2027 Diabetes Screening Diabetes Screening [facility] Start: 07-10-2027 Diabetes Screening Diabetes Screening [facility] Start: 06-19-2027 Diabetes Screening Diabetes Screening [facility] Start: 05-29-2027 Diabetes Screening Diabetes Screening [facility] Start: 05-08-2027 Diabetes Screening Diabetes Screening [facility] Start: 04-18-2027 Diabetes Screening Diabetes Screening [facility] Start: 03-27-2027 Diabetes Screening Diabetes Screening [facility] Start: 03-07-2027 Diabetes Screening Diabetes Screening [facility] Start: 02-14-2027 Diabetes Screening Diabetes Screening [facility] Start: 01-25-2027 Diabetes Screening Diabetes Screening [facility] Start: 01-02-2027 Diabetes Screening Diabetes Screening [facility] Start: 12-15-2026 Diabetes Screening Diabetes Screening [facility] Start: 11-21-2026 Diabetes Screening Diabetes Screening [facility] Start: 11-03-2026 Diabetes Screening Diabetes Screening [facility] Start: 10-09-2026 Diabetes Screening Diabetes Screening [facility] Start: 09-22-2026 Diabetes Screening Diabetes Screening [facility] Start: 08-29-2026 Diabetes Screening Diabetes Screening [facility] Start: 08-11-2026 Diabetes Screening Diabetes Screening [facility] Start: 07-19-2026 Diabetes Screening Diabetes Screening [facility] Start: 06-07-2026 Diabetes Screening Diabetes Screening [facility] Start: 05-17-2026 Diabetes Screening Diabetes Screening [facility] Start: 04-29-2026 Diabetes Screening Diabetes Screening [facility] Start: 04-05-2026 Diabetes Screening Diabetes Screening [facility] Start: 03-18-2026 Diabetes Screening Diabetes Screening [facility] Start: 02-23-2026 Diabetes Screening Diabetes Screening [facility] Start: 02-03-2026 DIABETES SCREEN DIABETES SCREEN [facility] Start: 01-12-2026 DIABETES SCREEN DIABETES SCREEN [facility] Start: 12-23-2025 DIABETES SCREEN DIABETES SCREEN [facility] Start: 12-01-2025 DIABETES SCREEN DIABETES SCREEN [facility] Start: 11-10-2025 DIABETES SCREEN DIABETES SCREEN [facility] Start: 09-29-2025 DIABETES SCREEN DIABETES SCREEN [facility] Start: 09-08-2025 DIABETES SCREEN DIABETES SCREEN [facility] Start: 08-18-2025 DIABETES SCREEN DIABETES SCREEN [facility] Start: 07-28-2025 DIABETES SCREEN DIABETES SCREEN [facility] Start: 07-07-2025 DIABETES SCREEN DIABETES SCREEN [facility] Start: 06-16-2025 DIABETES SCREEN DIABETES SCREEN [facility] Start: 05-26-2025 DIABETES SCREEN DIABETES SCREEN [facility] Start: 05-09-2025 End: 05-09-2025 Patient encounter procedure 05/09/2025 2:00 PM EST Office Visit [facility] [address] [place] [id number] Guerrero Vasquez III, MD [address] [place] [address] 3 month follow up [facility] Comment on above: 3 month follow up Start: 05-05-2025 DIABETES SCREEN DIABETES SCREEN [facility] Start: 04-14-2025 DIABETES SCREEN DIABETES SCREEN [facility] Start: 04-12-2025 End: 04-12-2025 ambulatory 04/12/2025 11:00 AM EST Infusion Center Hematology/Oncology [address] [place] [address] Q3WK ONTRUZANT* OV EVERY OTHER CYCLE - FRI TX Hematology/Oncology Comment on above: Q3WK ONTRUZANT* OV EVERY OTHER CYCLE - F RI TX Start: 04-10-2025 End: 04-10-2025 ambulatory 04/10/2025 11:10 AM EST Visit (SP) Office Hematology/Oncology [address] [place] [address] Christiano Centeno, [address] [place] [address] OV(PORT)LABS 04/09/CHEMO 04/12*- ALT DR CENTENO AND DOMENIC Hematology/Oncology Comment on above: OV(PORT)LABS CHEMO 04/12*- ALT DR LEANNE BRITTON AND DOMENIC Start: 04-09-2025 End: 04-09-2025 ambulatory 04/09/2025 11:00 AM EST Infusion Center Hematology/Oncology [address] [place] [address] Wstr, Lab/[place] [facility] [address] [place] [address] (SO)CBC/CMP(S)(PORT)* No Thur appts/labs day before OV & 2 days before stand alone chemo per pt. Hematology/Oncology Comment on above: (SO)CBC/CMP(S)(PORT)* No Thur appts/labs day before OV & 2 days before stand alone chemo per pt. Start: 2025 DIABETES SCREEN DIABETES SCREEN [facility] Start: 03-22-2025 End: 03-22-2025 ambulatory 03/22/2025 11:00 AM EDT Infusion Center Hematology/Oncology [address] [place] [address] Q3WK ONTRUZANT/LAB 03/20* OV EVERY OTHER CYCLE - FRI TX Hematology/Oncology Comment on above: Q3WK ONTRUZANT/LAB 03/20* OV EVERY OTHER CYCLE - FRI TX Start: 03-20-2025 End: 03-20-2025 ambulatory 03/20/2025 11:45 AM EDT Infusion Center Hematology/Oncology [address] [place] [address] Wstr, Lab[facility] [facility] [address] [place] [address] (SO)CBC/CMP(S)(PORT)* NO THUR APPTS/ LABS 1 DAY BEFORE OV AND 2 DAYS BEFORE STAND ALONE CHEMO Hematology/Oncology Comment on above: (SO)CBC/CMP(S)(PORT)* NO THUR APPTS/ LAB S 1 DAY BEFORE OV AND 2 DAYS BEFORE STAND ALONE CHEMO Start: 03-01-2025 End: 03-01-2025 ambulatory Hematology/Oncology Comment on above: Q3WK ONTRUZANT/OV 02/27* OV EVERY OTHER C YCLE - TUE TX Start: 02-27-2025 End: 02-27-2025 ambulatory 02/27/2025 11:30 AM EDT Visit (SP) Office Hematology/Oncology [address] [place] [address] Domenic Kelley, ERIC.GREASE REFINER OPERATOR [address] [place] [address] OV(PORT)LABS 02/26/CHEMO 03/01*- ALT DR VINCENT Hematology/Oncology Comment on above: OV(PORT)LABS 02/26/CHEMO 03/01*- ALT DR LEANNE HAYES Start: 02-27-2025 End: 02-27-2025 ambulatory 02/27/2025 9:30 AM EDT Visit (SP) Office Hematology/Oncology [address] [place] [address] Christiano Centeno DO [address] [place] [address] OV(PORT)LABS 02/26/CHEMO 03/01*- ALT DR CENTENO AND DOMENIC Hematology/Oncology Comment on above: OV(PORT)LABS 02/26/CHEMO 03/01*- ALT DR LEANNE HAYES Start: 02-26-2025 End: 02-26-2025 ambulatory Hematology/Oncology Comment on above: (SO)CBC/CMP(S)(PORT)* No Thur appts/labs day before OV & 2 days before stand alone chemo per pt. Start: 02-22-2025 DIABETES SCREEN DIABETES SCREEN [facility] Start: 02-08-2025 End: 02-08-2025 ambulatory 02/08/2025 11:00 AM EDT Infusion Center Hematology/Oncology [address] [place] [address] Q3WK ONTRUZANT/LAB 02/06* OV EVERY OTHER CYCLE - TUE TX Hematology/Oncology Comment on above: Q3WK ONTRUZANT/LAB 02/06* OV EVERY OTHER C YCLE - TUE TX Start: 02-06-2025 End: 02-06-2025 ambulatory 02/06/2025 11:45 AM EDT Infusion Center Hematology/Oncology [address] [place] [address] Wstr, Lab[facility] [facility] [address] [place] [address] (SO)CBC/CMP(S)(PORT)* NO THUR APPTS/ LABS 1 DAY BEFORE OV AND 2 DAYS BEFORE STAND ALONE CHEMO Hematology/Oncology Comment on above: (SO)CBC/CMP(S)(PORT)* NO THUR APPTS/ LAB S 1 DAY BEFORE OV AND 2 DAYS BEFORE STAND ALONE CHEMO Start: 02-04-2025 Influenza vaccination Influ[facility] Vaccine (#[facility]) [facility] Start: 02-01-2025 DIABETES SCREEN DIABETES SCREEN [facility] Start: 01-31-2025 End: 01-31-2025 ambulatory 01/31/2025 11:00 AM EDT Results Only [place] [facility] [address] [place] [address] [place] [facility] Start: 01-28-2025 End: 01-28-2025 Patient encounter procedure Nuclear Medicine Comment on above: Dx: 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, right (HCC) [C50.911, C78.7]; HER2-positive carcinoma of left breast (HCC) [C50.912, Z17.31]; Stage IV breast cancer in female (HCC) [C50.919]; Carcinoma of left breast, stage 4 (HCC) [C50.912] Start: 01-23-2025 End: 01-23-2025 Patient encounter procedure 01/23/2025 11:30 AM EDT Office Visit [facility] [address] [place] [address] Guerrero Vasquez III, MD [address] [place], [place] [id number] follow up [facility] Comment on above: follow up Start: 01-18-2025 End: 01-18-2025 ambulatory 01/18/2025 11:00 AM EDT Infusion Center Hematology/Oncology [address] [place] [address] Q3WK ONTRUZANT/OV 01/16* OV EVERY OTHER CYCLE - TUE TX Hematology/Oncology Comment on above: Q3WK ONTRUZANT/OV 01/16* OV EVERY OTHER C YCLE - TUE TX Start: 01-16-2025 End: 01-16-2025 ambulatory Hematology/Oncology Comment on above: OV(PORT)LABS 01/15/CHEMO 01/18*- ALT DR LEANNE HAYES Start: 01-15-2025 End: 01-15-2025 Patient encounter procedure 01/15/2025 12:30 PM EDT Appointment Radiology [address] [place], [place] [id number] 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, right (HCC) [C50.911, C78.7] Radiology Comment on above: 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, rig ht (HCC) [C50.911, C78.7] Start: 01-15-2025 End: 01-15-2025 ambulatory 01/15/2025 11:45 AM EDT Infusion Center Hematology/Oncology [address] [place] [address] Wstr, Lab[facility] [facility] [address] [place] [address] (SO)CBC/CMP(S)(PORT)* No Thur appts/labs day before OV & 2 days before stand alone chemo per pt. Hematology/Oncology Comment on above: (SO)CBC/CMP(S)(PORT)* No Thur appts/labs day before OV & 2 days before stand alone chemo per pt. Start: 01-14-2025 End: 01-14-2025 Patient encounter procedure Nuclear Medicine Comment on above: Dx: 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, right (HCC) [C50.911, C78.7]; HER2-positive carcinoma of left breast (HCC) [C50.912, Z17.31]; Stage IV breast cancer in female (HCC) [C50.919]; Carcinoma of left breast, stage 4 (HCC) [C50.912] Start: 01-14-2025 End: 01-14-2025 ambulatory 01/14/2025 8:15 AM EDT Results Only [place] [facility] [address] [place] [address] [place] [facility] Start: 01-12-2025 DIABETES SCREEN DIABETES SCREEN [facility] Start: 12-31-2024 End: 12-31-2024 ambulatory 12/31/2024 8:00 AM EDT Results Only [place] [facility] [address] [place] [address] [place] [facility] Start: 12-28-2024 End: 12-28-2024 ambulatory 12/28/2024 11:00 AM EDT Infusion Center Hematology/Oncology [address] [place] [address] Q3WK ONTRUZANT/LAB 12/26* OV EVERY OTHER CYCLE - Tue Hematology/Oncology Comment on above: Q3WK ONTRUZANT/LAB 12/26* OV EVERY OTHER CYCLE - TUE TX Start: 12-26-2024 End: 12-26-2024 ambulatory 12/26/2024 11:45 AM EDT Infusion Center Hematology/Oncology [address] [place] [address] Wstr, Lab[facility] [facility] [address] [place] [address] (SO)CBC/CMP(S)(PORT)* NO THUR APPTS/ LABS 1 DAY BEFORE OV AND 2 DAYS BEFORE STAND ALONE CHEMO Hematology/Oncology Comment on above: (SO)CBC/CMP(S)(PORT)* NO THUR APPTS/ LAB S 1 DAY BEFORE OV AND 2 DAYS BEFORE STAND ALONE CHEMO Start: 12-18-2024 DIABETES SCREEN DIABETES SCREEN [facility] Start: 12-12-2024 End: 12-12-2024 ambulatory 12/12/2024 10:15 AM EDT Results Only [place] [facility] [address] [place] [address] [place] [facility] Start: 12-06-2024 End: 12-06-2024 ambulatory 12/06/2024 9:30 AM EDT Infusion Center Hematology/Oncology [address] [place] [address] TueIDAY Hematology/Oncology Comment on above: TUE HOLIDAY Start: 12-05-2024 End: 12-05-2024 ambulatory 12/05/2024 2:00 PM EDT Visit (SP) Office Hematology/Oncology [address] [place] [address] Domenic Kelley, DUTY MANAGER.GREASE REFINER OPERATOR [address] [place] [address] OV(PORT)LABS 12/04/CHEMO 12/06*- ALT DR CENTENO AND DOMENIC Hematology/Oncology Comment on above: OV(PORT)LABS 12/04/CHEMO 12/06*- ALT DR OSWLAD MERAZ Start: 12-04-2024 End: 12-04-2024 ambulatory 12/04/2024 11:30 AM EDT Infusion Center Hematology/Oncology [address] [place] [address] Wstr, Lab[place] [facility] [address] [place] [address] (SO)CBC/CMP(S)(PORT)* No Thur appts/labs day before OV & 2 days before stand alone chemo per pt. Hematology/Oncology Comment on above: (SO)CBC/CMP(S)(PORT)* No Thur appts/labs day before OV & 2 days before stand alone chemo per pt. Start: 12-01-2024 DIABETES SCREEN DIABETES SCREEN [facility] Start: 11-28-2024 End: 11-28-2024 Patient encounter procedure 11/28/2024 8:30 AM EDT Office Visit [facility] of [facility] [address] [place] [id number] Guerrero Vasquez III, MD [address] [place] [address] per DMD [facility] Comment on above: per DMD Start: 11-16-2024 End: 11-16-2024 ambulatory 11/16/2024 1:30 PM EDT Infusion Center Hematology/Oncology [address] [place] [address] Q3WK ONTRUZANT/LAB 11/14* OV EVERY OTHER CYCLE - TUE TX Hematology/Oncology Comment on above: Q3WK ONTRUZANT/LAB 11/14* OV EVERY OTHER CYCLE - TUE TX Start: 11-14-2024 End: 11-14-2024 ambulatory 11/14/2024 11:45 AM EDT Infusion Center Hematology/Oncology [address] [place] [address] Wstr, Lab[facility] [facility] [address] [place] [address] (SO)CBC/CMP(S)(PORT)* No Thur appts/labs day before OV & 2 days before stand alone chemo per pt. Hematology/Oncology Comment on above: (SO)CBC/CMP(S)(PORT)* No Thur appts/labs day before OV & 2 days before stand alone chemo per pt. Start: 11-03-2024 DIABETES SCREEN DIABETES SCREEN [facility] Start: 10-26-2024 Iv infusion therapy/prophylaxis /dx 1st to 1 hr THER/PROPH/DIAG IV INF INIT [facility] Start: 10-26-2024 End: 10-26-2024 ambulatory Hematology/Oncology Comment on above: Q3WK ONTRUZANT/LAB 10/23, OV 10/26/AUTH EX P 01/14/25* OV EVERY OTHER CYCLE - TUE TX Q3WK ONTRUZANT/LAB , OV 10/26* OV EVERY OTHER CYCLE - TUE TX pt canceled 10/05 loan tment by Start: 10-24-2024 End: 10-24-2024 ambulatory Hematology/Oncology Comment on above: OV(PORT)/LABS 10/23/CHEMO 10/26*- ALT DR Christiano ORANTES AND DOMENIC OV(PORT)/ECHO 10/15/L ABS 10/23/CHEMO 10/26*- ALT DR VINCENT Start: 10-23-2024 End: 10-23-2024 ambulatory 10/23/2024 11:45 AM EDT Infusion Center Hematology/Oncology [address] [place] [address] Wstr, Lab[place] [facility] [address] [facility] [address] (SO)CBC/CMP(S)(PORT)* No Thur appts/labs day before OV & 2 days before stand alone chemo per pt. Hematology/Oncology Comment on above: (SO)CBC/CMP(S)(PORT)* No Thur appts/labs day before OV & 2 days before stand alone chemo per pt. Start: 10-19-2024 DIABETES SCREEN DIABETES SCREEN [facility] Start: 10-15-2024 End: 10-15-2024 Patient encounter procedure 10/15/2024 10:30 AM EDT Office Visit Cardiology [address] [place] [address] ECHO Cardiology Comment on above: ECHO Start: 10-10-2024 End: 10-10-2024 Admission to same day surgery center 10/10/2024 1:00 PM EDT - 10/10/2024 2:00 PM EDT Surgery [facility] [place] [address] Estrada Turner MD, [address] [place] [address] T12-L1 DISC BX. [facility] Comment on above: T12-L1 DISC BX. Start: 10-10-2024 End: 10-10-2024 Prq aspir pulposus/intervertebral disc/pvrt tiss PERCUTANEOUS ASPIRATION WITHIN NUCLEUS PULPOSUS., INTERVERTEBRAL OR PARAVERTEBRAL TISSUE FOR DIAGNOSIS Abnormal MRI, spine 10/10/2024 1:00 PM EDT [facility] Start: 10-10-2024 Subsequent hospital visit by physician 10/10/2024 1:00 PM EDT Hospital Encounter [facility] [address] [place] [address] Estrada Turner MD, [address] [place] [address] Abnormal MRI, spine [R93.7] [facility] Comment on above: Abnormal MRI, spine [R93.7] Start: 10-05-2024 End: 10-05-2024 ambulatory 10/05/2024 1:30 PM EDT Infusion Center Hematology/Oncology [address] [place] [address] Q3WK ONTRUZANT/LAB EXP 01/14/25* OV EVERY OTHER CYCLE - TUE TX Hematology/Oncology Comment on above: Q3WK ONTRUZANT/LAB AUTH EXP 01/14/25 * OV EVERY OTHER CYCLE - TUE TX Start: 10-03-2024 End: 10-03-2024 ambulatory 10/03/2024 11:45 AM EDT Infusion Center Hematology/Oncology [address] [place] [address] Wstr, Lab[place] [facility] [address] [place] [address] (SO)CBC/CMP(S)(PORT)* No Thur appts/labs day before OV & 2 days before stand alone chemo per pt. Hematology/Oncology Comment on above: (SO)CBC/CMP(S)(PORT)* No Thur appts/labs day before OV & 2 days before stand alone chemo per pt. Start: 10-02-2024 Venous catheter care management [facility] Start: 09-25-2024 DIABETES SCREEN DIABETES SCREEN [facility] Start: 09-14-2024 End: 09-14-2024 ambulatory Hematology/Oncology Comment on above: Q3WK ONTRUZANT/LAB 09/11, OV EXP 01/14/25* OV EVERY OTHER CYCLE - Tue LAST ORDER Start: 09-12-2024 End: 12-12-2024 C reactive protein [Mass/volume] in Serum or Plasma [facility] Work Phone: Comment on above: Expected: 09/12/2024, Expires: Start: 09-12-2024 End: 09-12-2024 ambulatory 09/12/2024 10:00 AM EDT Visit (SP) Office Hematology/Oncology [address] [place] [address] Domenic Kelley, DUTY MANAGER.GREASE REFINER OPERATOR [address] [place] [address] OV(PORT)/LABS 09/11/CHEMO 09/14*- ALT DR CENTENO AND DOMENIC Hematology/Oncology Comment on above: OV(PORT)/LABS 09/11/CHEMO 09/14*- ALT DR LEANNE HAYES Start: 09-11-[address] [facility] Work Phone: Start: 09-11-2024 End: 09-11-2024 ambulatory 09/11/2024 11:45 AM EDT Infusion Center Hematology/Oncology [address] [place] [address] Wstr, Lab/[place] [facility] [address] [place] [address] (SO)CBC/CMP(S)(PORT)* No Thur appts/labs day before OV & 2 days before stand alone chemo per pt. Hematology/Oncology Comment on above: (SO)CBC/CMP(S)(PORT)* No Thur appts/labs day before OV & 2 days before stand alone chemo per pt. Start: 09-07-2024 DIABETES SCREEN DIABETES SCREEN [facility] Start: 08-29-[address] [facility] Start: 08-28-2024 Removal of urinary catheter [facility] Start: 08-27-[address] [facility] Start: 08-27-[address] [facility] Start: 08-25-2024 Following clinical pathway protocol [facility] Start: 08-25-2024 Venous catheter care management [facility] Start: 08-25-[address] [facility] Start: 08-25-2024 Assessment of risk of venous thromboembolism [facility] Start: 08-25-[address] [facility] Start: 08-25-2024 Insertion of catheter into peripheral vein [facility] Start: 08-25-2024 Providing care according to standard [facility] Start: 08-25-2024 Referral to occupational therapist [facility] Start: 08-25-[address] [facility] Start: 08-25-2024 [facility] Start: 08-25-2024 Hospital admission, emergency, from emergency room, medical nature [facility] Start: 08-25-[address] [facility] Start: 08-25-[address] [facility] Start: 08-25-2024 Anes dx/ther nerve block/injection prone pos ANESTH N BLOCK/INJ PRONE [facility] Start: 08-25-2024 Njx dx/ther agt pvrt facet jt lmbr/sac 1 level INJ PARAVERT F JNT L/S 1 [facility] Start: 08-25-2024 Njx dx/ther agt pvrt facet jt lmbr/sac 2nd level INJ PARAVERT F JNT L/S 2 [facility] Start: 08-24-2024 End: 08-24-2024 ambulatory Hematology/Oncology Comment on above: Q3WK ONTRUZANT/LAB 3/18/AUTH EXP 11/22/24 * OV EVERY OTHER CYCLE - TUE TX Q3WK ONTRUZANT/LAB AUTH EXP 01/14/25* OV EVERY OTHER CYCLE - TUE TX MAY BE LATE-HAS FUNE RAL/Q3WK ONTRUZANT/LAB AUTH EXP 01/14/25* OV EVERY OTHER CYCLE - TUE TX Start: 08-21-2024 End: 08-21-2024 ambulatory 08/21/2024 10:00 AM EDT Infusion Center Hematology/Oncology [address] [place] [address] Wstr, Lab[place] [facility] [address] [place] [address] (SO)CBC/CMP(S)(PORT)* No Thur appts/labs day before OV & 2 days before stand alone chemo per pt. Hematology/Oncology Comment on above: (SO)CBC/CMP(S)(PORT)* No Thur appts/labs day before OV & 2 days before stand alone chemo per pt. Start: 08-10-2024 End: 08-03-2025 Echocardiography ECHO Cardiology Routine Malignant neoplasm of female breast, unspecified estrogen receptor status, unspecified laterality, unspecified site of breast (HCC) HER2-positive carcinoma of left breast (HCC) Encounter for monitoring cardiotoxic drug therapy Expected: 08/10/2024, Expires: 08/03/2025 [facility] Work Phone: Comment on above: Expected: 08/10/2024, Expires: Start: 08-03-2024 Covid-19 Vaccine ( season) Covid-19 Vaccine () [facility] Start: 08-03-2024 End: 08-03-2024 ambulatory Hematology/Oncology Comment on above: Q3WK ONTRUZANT/LAB 07/31, OV 08/01/AUTH EX P 11/22/24* OV EVERY OTHER CYCLE - TUE TX Q3WK ONTRUZANT/LAB , OV 08/01/AUTH EXP 01/14/25* OV EVERY OTHER CYCLE - TUE TX Start: 08-01-2024 End: 08-01-2024 ambulatory 08/01/2024 10:00 AM EST Visit (SP) Office Hematology/Oncology [address] [place] [address] Domenic Kelley, DUTY MANAGER.GREASE REFINER OPERATOR [address] [place] [address] OV(PORT)/LABS 07/31/CHEMO 08/03*- ALT DR CENTENO AND DOMENIC Hematology/Oncology Comment on above: OV(PORT)/LABS 07/31/CHEMO 08/03*- ALT DR Christiano ORANTES AND DOMENIC Start: 07-31-2024 End: 07-31-2024 ambulatory 07/31/2024 9:15 AM EST Infusion Center Hematology/Oncology [address] [place] [address] Wstr, Lab[facility] [facility] [address] [place] [address] (SO)CBC/CMP(S)(PORT)* No Thur appts/labs day before OV & 2 days before stand alone chemo per pt. Hematology/Oncology Comment on above: (SO)CBC/CMP(S)(PORT)* No Thur appts/labs day before OV & 2 days before stand alone chemo per pt. Start: 07-16-2024 End: 07-16-2024 Patient encounter procedure 07/16/2024 1:50 PM EST Office Visit General Surgery [address] [place] [address] Lety Zazueta MD [address] [place] [address] hernia General Surgery Comment on above: hernia Start: 07-13-2024 End: 07-13-2024 ambulatory Hematology/Oncology Comment on above: Q3WK ONTRUZANT/LAB //AUTH EXP 11/22/24* OV EVERY OTHER CYCLE - TUE TX Q3WK ONTRUZANT/LAB /AUTH EXP 01/14/25* OV EVERY OTHER CYCLE - TUE TX Start: 07-11-2024 End: 07-11-2024 Patient encounter procedure Nuclear Medicine Comment on above: Routine Start: 07-10-2024 End: 07-10-2024 ambulatory 07/10/2024 9:15 AM EST Infusion Center Hematology/Oncology [address] [place] [address] Wstr, Lab[facility] [facility] [address] [place] [address] (SO)CBC/CMP(S)(PORT)* No Thur appts/labs day before OV & 2 days before stand alone chemo per pt. Hematology/Oncology Comment on above: (SO)CBC/CMP(S)(PORT)* No Thur appts/labs day before OV & 2 days before stand alone chemo per pt. Start: 07-09-2024 End: 07-09-2024 Patient encounter procedure 07/09/2024 9:30 AM EST Appointment Radiology [address] [place] [address] Malignant neoplasm of female breast, unspecified estrogen receptor status, unspecified laterality, unspecified site of breast (HCC) [C50.919] Radiology Comment on above: Malignant neoplasm of female breast, uns pecified estrogen receptor status, unspecified laterality, unspecified site of breast (HCC) [C50.919] Start: 07-09-2024 Subsequent hospital visit by physician 07/09/2024 9:30 AM EST Hospital Encounter Radiology [address] [place] [address] Malignant neoplasm of female breast, unspecified estrogen receptor status, unspecified laterality, unspecified site of breast (HCC) [C50.919] Radiology Comment on above: Malignant neoplasm of female breast, uns pecified estrogen receptor status, unspecified laterality, unspecified site of breast (HCC) [C50.919] Start: 07-09-2024 End: 07-09-2024 ambulatory 07/09/2024 9:15 AM EST Infusion Center Hematology/Oncology [address] [place] [address] Wstr, Lab/[place] [facility] [address] [place] [address] PORT ACCESS FOR MRI* Hematology/Oncology Comment on above: PORT ACCESS FOR MRI* Start: 06-22-2024 End: 06-22-2024 ambulatory Hematology/Oncology Comment on above: Q3WK ONTRUZANT/LAB 06/19, OV 06/20/AUTH EX P 11/22/24* OV EVERY OTHER CYCLE - TUE TX Q3WK ONTRUZANT/LAB , OV 06/20/AUTH EXP 01/14/25* OV EVERY OTHER CYCLE - TUE TX Q3WK KANJINTI/LAB , OV 06/20/AUTH EXP 01/14/25* OV EVERY OTHER CYCLE - TUE TX Start: 06-21-2024 End: 09-20-2024 Ferritin [Mass/volume] in Serum or Plasma FERRITIN Lab Routine Thrombocytosis Expected: 06/21/2024, Expires: 09/20/2024 [facility] Comment on above: Expected: 06/21/2024, Expires: Start: 06-21-2024 End: 09-20-2024 Iron and Iron binding capacity panel - Serum or Plasma IRON AND TIBC Lab Routine Thrombocytosis Expected: 06/21/2024, Expires: 09/20/2024 [facility] Work Phone: Comment on above: Expected: 06/21/2024, Expires: Start: 06-20-2024 End: 06-20-2024 ambulatory Hematology/Oncology Comment on above: OV(PORT)/LABS 06/19/CHEMO 06/22*- ALT DR Christiano WEBB OV(PORT)/LABS 06/19/C HEMO 06/22,DOES SHE NEED BONE DENSITY*- ALT DR VINCENT Start: 06-19-2024 End: 06-19-2024 ambulatory 06/19/2024 11:30 AM [facility] Hematology/Oncology [address] [place] [address] Wstr, Lab/Port [facility] [address] [place] [address] (SO)CBC/CMP(S)(PORT)* No Thur appts/labs day before OV & 2 days before stand alone chemo per pt. Hematology/Oncology Comment on above: (SO)CBC/CMP(S)(PORT)* No Thur appts/labs day before OV & 2 days before stand alone chemo per pt. Start: 06-06-2024 Advance Directive Discussion Advance Directive Discussion [facility] Start: 06-06-2024 Medicare Advantage Annual Wellness Visit Medicare Advantage Annual Wellness Visit [facility] Start: 06-04-2024 [facility] Start: 06-01-2024 End: 06-01-2024 ambulatory Hematology/Oncology Comment on above: (SO)CBC/CMP(S)(PORT)Q3WK ONTRUZANT/AUTH EXP 11/22/24* TUE TX -OV EVERY OTHER TX Q3WK ONTRUZANT(PORT) /LABS EXP 11/22/24* TUE TX -OV EVERY OTHER TX Start: 05-29-2024 End: 05-29-2024 ambulatory 05/29/2024 9:15 AM EST Infusion Center Hematology/Oncology [address] [place] [address] Wstr, Lab/[place] [facility] [address] [place] [address] (SO)CBC/CMP(S)(PORT)* No Thur appts/labs day before OV & 2 days before stand alone chemo per pt. Hematology/Oncology Comment on above: (SO)CBC/CMP(S)(PORT)* No Thur appts/labs day before OV & 2 days before stand alone chemo per pt. Start: 05-23-2024 Colonoscopy w/biopsy single/multiple COLONOSCOPY AND BIOPSY [facility] Start: 05-23-2024 Colsc flx w/rmvl of tumor polyp lesion snare tq COLONOSCOPY W/LESION REMOVAL [facility] Start: 05-23-2024 Egd transoral biopsy single/multiple EGD BIOPSY SINGLE/MULTIPLE [facility] Start: 05-23-2024 Venous catheter care management [facility] Start: 05-23-[address] [facility] Start: 05-11-2024 End: 05-11-2024 ambulatory 05/11/2024 1:30 PM EST Infusion Center Hematology/Oncology [address] [place] [address] Q3WK ONTRUZANT/LAB 05/08, OV 05/09/AUTH EXP 11/22/24* OV EVERY OTHER CYCLE - TUE TX Hematology/Oncology Comment on above: Q3WK ONTRUZANT/LAB 05/08, OV 05/09/AUTH EX P 11/22/24* OV EVERY OTHER CYCLE - TUE TX Start: 05-09-2024 End: 05-09-2024 ambulatory Hematology/Oncology Comment on above: OV(PORT)/LABS 05/08/CHEMO 05/11*- ALT DR Christiano WEBB Start: 05-08-2024 End: 05-08-2024 ambulatory Hematology/Oncology Comment on above: (SO)CBC/CMP(S)(PORT)* No Thur appts/labs day before OV per pt. (SO)CBC/CMP(S)(PORT) * No Thur appts/labs day before OV & 2 days before stand alone chemo per pt. Start: 04-20-2024 End: 04-20-2024 ambulatory Hematology/Oncology Comment on above: (SO)CBC/CMP(S)(PORT)Q3WK ONTRUZANT/AUTH EXP 11/22/24* FRI TX -OV EVERY OTHER TX Q3WK ONTRUZANT/LABS 04/18/AUTH EXP 11/22/24* FRI TX -OV EVERY OTHER TX Start: 04-20-2024 End: 04-20-2024 Patient encounter procedure 04/20/2024 9:40 AM EST Office Visit Cardiology [address] [place] [address] Encounter for monitoring cardiotoxic drug therapy [Z51.81, Z79.899] Cardiology Comment on above: Encounter for monitoring cardiotoxic fabiola g therapy [Z51.81, Z79.899] Start: 04-18-2024 End: 04-18-2024 ambulatory 04/18/2024 9:15 AM EST Infusion Center Hematology/Oncology [address] [place] [address] Wstr, Lab/[place] [facility] [address] [place] [address] (SO)CBC/CMP(S)(PORT)* No Thur appts/labs day before OV & 2 days before stand alone chemo per pt. Hematology/Oncology Comment on above: (SO)CBC/CMP(S)(PORT)* No Thur appts/labs day before OV & 2 days before stand alone chemo per pt. Start: 04-16-2024 End: 04-16-2024 ambulatory 04/16/2024 8:30 AM EST Visit (SP) Office Hematology/Oncology [address] [place] [address] Christiano Centeno DO [address] [place] [address] OV-Per patient's request, she was moved from to [place] the last 2 scheduled visits* Hematology/Oncology Comment on above: OV-Per patient's request, she was moved from to [place] the last 2 scheduled visits* Start: 04-03-2024 End: 04-03-2024 Patient encounter procedure 04/03/2024 1:00 PM EDT Appointment Radiology [address] [place] [address] 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) [C78.7] Radiology Comment on above: Malignant 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 ( HCC) [C78.7] Start: 03-30-2024 End: 03-30-2024 ambulatory 03/30/2024 1:30 PM EDT Infusion Center Hematology/Oncology [address] [place] [address] Q3WK ONTRUZANT/LAB 03/27, OV 03/28/AUTH EXP 11/22/24* OV EVERY OTHER CYCLE - TUE TX Hematology/Oncology Comment on above: Q3WK ONTRUZANT/LAB 03/27, OV 03/28/AUTH EXP 11/22/24* OV EVERY OTHER CYCLE - FRI TX Start: 03-28-2024 End: 03-28-2024 ambulatory 03/28/2024 9:30 AM EDT Visit (SP) Office Hematology/Oncology [address] [place] [address] Christiano Centeno DO [address] [place] [address] OV(PORT)/LABS 03/27/CHEMO 03/30*- ALTERNATE BETWEEN DR CENTENO AND DOMENIC PER DR CENTENO ON 01/03 CHECKOUT Hematology/Oncology Comment on above: OV(PORT)/LABS 03/27/CHEMO 03/30*- ALTERN ATE BETWEEN DR CENTENO AND DOMENIC PER DR CENTENO ON 01/03 CHECKOUT Start: 03-27-2024 End: 03-27-2024 ambulatory Hematology/Oncology Comment on above: (SO)CBC/CMP(S)(PORT)* No Thur appts/labs day before OV per pt. (SO)CBC/CMP(S)(PORT) * No Thur appts/labs day before OV & 2 days before stand alone chemo per pt. Start: 03-26-2024 End: 03-26-2024 Patient encounter procedure Mobile PET CT Comment on above: PET Start: 03-21-2024 Subsequent hospital visit by physician 03/21/2024 8:40 AM EDT Hospital Encounter Radiology [address] [place], [place] [id number] 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) [C78.7] Radiology Comment on above: Malignant 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 ( HCC) [C78.7] Start: 03-21-2024 End: 03-21-2024 ambulatory 03/21/2024 8:30 AM EDT Infusion Center Hematology/Oncology [address] [place], [place] [id number] Wstr, Lab/[place] [facility] [address] [place], [place] [id number] PORT ACCESS FOR MRI* Hematology/Oncology Comment on above: PORT ACCESS FOR MRI* Start: 03-09-2024 End: 03-09-2024 ambulatory Hematology/Oncology Comment on above: (SO)CBC/CMP(S)(PORT)Q3WK ONTRUZANT/AUTH EXP 11/22/24* FRI TX -OV EVERY OTHER TX Q3WK ONTRUZANT(PORT) /LABS AUTH EXP 11/22/24* FRI TX -OV EVERY OTHER TX Start: 03-07-2024 End: 03-07-2024 ambulatory 03/07/2024 9:15 AM EDT Results Only [place] [facility] [address] [place] [address] [place] [facility] Start: 02-21-2024 End: 02-21-2024 ambulatory 02/21/2024 1:30 PM EDT [facility] Hematology/Oncology [address] [place] [address] Wstr, Lab/[place] [facility] [address] [place] [address] 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, right (HCC) (Primary Dx) Hematology/Oncology Comment on above: 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, rig ht (HCC) (Primary Dx) Start: 02-20-2024 End: 02-20-2024 Patient encounter procedure 02/20/2024 2:30 PM EDT Office Visit General Surgery [address] [place] [address] Deborah Oconnor APRN.GREASE REFINER OPERATOR [address] [place] [address] EGD consultation General Surgery Comment on above: EGD consultation Start: 02-17-2024 End: 02-17-2024 ambulatory Hematology/Oncology Comment on above: Q3WK ONTRUZANT/LAB 02/14, OV 02/15/AUTH EX P 01/13/24* OV EVERY OTHER CYCLE - FRI TX Q3WK ONTRUZANT/LAB , OV 02/15/AUTH EXP 11/22/24* OV EVERY OTHER CYCLE - TUE TX Start: 02-16-2024 End: 02-16-2024 ambulatory Hematology/Oncology Comment on above: OV(PORT)/LABS 01/02/CHEMO 02/16* pt only w ants to see Dr. Centeno OV(PORT)/LABS 01/02/C HEMO 02/16* pt only wants to see Dr. Centeno - ALTERNATE BETWEEN DR CENTENO AND DOMENIC PER DR CENTENO ON 01/03 CHECKOUT OV(PORT)/LABS 01/02/C HEMO 02/16* OV(PORT)/LABS 02/14/C HEMO 02/16* Start: 02-15-2024 End: 02-15-2024 ambulatory 02/15/2024 2:45 PM EDT [facility] Hematology/Oncology [address] [place] [address] Wstr, Lab/[place] [facility] [address] [place] [address] (SO)CBC/CMP(S)(PORT)/O V 11/22* No Thur appts/labs day before OV per pt. Hematology/Oncology Comment on above: (SO)CBC/CMP(S)(PORT)/OV 11/22* No Thur ap pts/labs day before OV per pt. Start: 02-05-2024 Influenza vaccination Influenza Vaccine (#1) [facility] Start: 01-27-2024 End: 01-27-2024 ambulatory Hematology/Oncology Comment on above: (SO)CBC/CMP(S)(PORT)Q3WK ONTRUZANT/AUTH EXP 01/13/24* FRI TX -OV EVERY OTHER TX (SO)CBC/CMP(S)(PORT) Q3WK ONTRUZANT/AUTH EXP 11/22/24* FRI TX -OV EVERY OTHER TX (LABS 01/25)(PORT)Q3W K ONTRUZANT/AUTH EXP 11/22/24* Start: 01-23-2024 End: 01-23-2024 Patient encounter procedure 01/23/2024 2:30 PM EDT Office Visit [facility] [id number] [place] [address] [place] [address] [place] [phone] seroma check [facility] Comment on above: seroma check Start: 01-06-2024 End: 01-06-2024 Patient encounter procedure General Surgery Comment on above: pt will come in before tx drain removal follow up to infecti on drain removal Start: 01-06-2024 End: 01-06-2024 ambulatory Hematology/Oncology Comment on above: Q3WK ONTRUZANT/LAB 01/02, OV 01/03/ EX P 01/13/24* OV EVERY OTHER CYCLE - Tue Start: 01-04-2024 End: 01-04-2024 ambulatory 01/04/2024 10:30 AM EDT Visit (SP) Office Hematology/Oncology [address] [place], [place] [phone] Christiano Centeno DO [address] [place] [address] OV(PORT)/LABS 01/02/CHEMO 01/05* pt only wants to see Dr. Centeno Hematology/Oncology Comment on above: OV(PORT)/LABS 01/02/CHEMO 01/05* pt only wa nts to see Dr. Centeno Start: 01-03-2024 End: 01-03-2024 ambulatory Hematology/Oncology Comment on above: (SO)CBC/CMP(S)(PORT)/OV 11/22* No Thur ap pts/labs day before OV per pt. (SO)CBC/CMP(S)(PORT) /OV 01/03* Start: 01-02-2024 End: 01-02-2024 Patient encounter procedure 01/02/2024 2:20 PM EDT Appointment Radiology [address] [place] [phone] mri abdomen Radiology Comment on above: mri abdomen Start: 01-02-2024 Subsequent hospital visit by physician 01/02/2024 2:20 PM EDT Hospital Encounter Radiology [address] [place], [place] [id number] 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, right (HCC) [C50.911, C78.7] Radiology Comment on above: 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, rig ht (HCC) [C50.911, C78.7] Start: 01-02-2024 End: 01-02-2024 ambulatory 01/02/2024 2:00 PM EDT Infusion Center Hematology/Oncology [address] [place], [place] [phone] Wstr, Lab/[place] [facility] [address] [place] [address] access port for MRI Hematology/Oncology Comment on above: access port for MRI Start: 12-23-2023 End: 12-23-2023 Patient encounter procedure 12/23/2023 11:00 AM EDT Office Visit General Surgery [address] [place] [address] [place] [address] [place] [address] post op dos /2 -per NQ staff message General Surgery Comment on above: post op dos 7/ -per NQ staff message Start: 12-16-2023 End: 12-16-2023 ambulatory 12/16/2023 2:00 PM EDT [facility] Hematology/Oncology [address] [place] [address] (SO)CBC/CMP(S)(PORT)Q3 WK ONTRUZANT/AUTH EXP 01/13/24* FRI TX -OV EVERY OTHER TX Hematology/Oncology Comment on above: (SO)CBC/CMP(S)(PORT)Q3WK ONTRUZANT/AUTH EXP 01/13/24* FRI TX -OV EVERY OTHER TX Start: 12-14-2023 End: 12-14-2023 Patient encounter procedure 12/14/2023 10:00 AM EDT Office Visit [facility] [id number] [place], [place] [phone] Callie Sullivan PA-C [address] [place] [address] post op DOS 12/05 [facility] Comment on above: post op DOS / Start: 12-06-2023 End: 12-06-2023 Admission to same day surgery center [facility] Operating Room Comment on above: WIDE EXCISION OF BREAST TISSUE AXILLARY INCISION & DRAINAGE OF SEROMA Start: 12-06-2023 End: 12-06-2023 Exc b9 lesion mrgn xcp sk tg t/a/l >4.0 cm REVISION SCAR BREAST > 4.0CM Seroma of breast Excessive and redundant skin and subcutaneous tissue 12/06/2023 9:40 AM EDT [facility] Start: 12-06-2023 End: 12-06-2023 Excision excessive skin & subq tissue other area WIDE EXCISION OF BREAST TISSUE AXILLARY Seroma of breast Excessive and redundant skin and subcutaneous tissue 12/06/2023 9:40 AM EDT [facility] Start: 12-06-2023 End: 12-06-2023 I&d hematoma seroma/fluid collection INCISION & DRAINAGE OF SEROMA Seroma of breast Excessive and redundant skin and subcutaneous tissue 12/06/2023 9:40 AM EDT [facility] Start: 12-06-2023 Subsequent hospital visit by physician 12/06/2023 9:40 AM EDT Hospital Encounter [facility] Operating Room [address] [place] [address] [place] [address] [place] [address] Seroma of breast [N64.89], Excessive and redundant skin and subcutaneous tissue [L98.7] [facility] Operating Room Comment on above: Seroma of breast [N64.89], Excessive and redundant skin and subcutaneous tissue [L98.7] Start: 11-25-2023 End: 11-25-2023 ambulatory 11/25/2023 2:00 PM EDT Infusion Center Hematology/Oncology [address] [place] [address] Q3WK ONTRUZANT/LAB 10/21, OV EXP 01/13/24* OV EVERY OTHER CYCLE - FRI TX Hematology/Oncology Comment on above: Q3WK ONTRUZANT/LAB 10/21, OV 11/24/ EX P 01/13/24* OV EVERY OTHER CYCLE - TUE TX Start: 11-23-2023 End: 11-23-2023 ambulatory 11/23/2023 1:30 PM EDT Visit (SP) Office Hematology/Oncology [address] [place] [address] Domenic Kelley APRN.GREASE REFINER OPERATOR [address] [place] [address] OV(PORT)/LABS 11/21/CHEMO 11/24* pt only wants to see Dr. Centeno Hematology/Oncology Comment on above: OV(PORT)/LABS 11/21/CHEMO 11/24* pt only w ants to see Dr. Centeno Start: 11-23-2023 End: 11-23-2023 ambulatory 11/23/2023 9:30 AM EDT Visit (SP) Office Hematology/Oncology [address] [place] [address] Christiano Centeno DO [address] [place] [address] OV(PORT)/LABS 11/21/CHEMO 11/24* pt only wants to see Dr. Centeno Hematology/Oncology Comment on above: OV(PORT)/LABS 11/21/CHEMO 11/24* pt only w ants to see Dr. Centeno Start: 11-22-2023 End: 11-22-2023 ambulatory 11/22/2023 1:30 PM EDT [facility] Hematology/Oncology [address] [place] [address] Wstr, Lab/[place] [facility] [address] [place] [address] (SO)CBC/CMP(S)(PORT)/O V 11/22* No Thur appts/labs day before OV per pt. Hematology/Oncology Comment on above: (SO)CBC/CMP(S)(PORT)/OV 11/22* No Thur ap pts/labs day before OV per pt. Start: 11-21-2023 End: 11-21-2023 Anesthesia consultation 11/21/2023 1:40 PM EDT PAT Pre Anesthesia [address] [place] [address] 1, [facility] [place] [address] [place] [address] seroma removal and mastectomy revision , Dr. Matos Pre Anesthesia Comment on above: seroma removal and mastectomy revision , Dr. 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 [id number] [place], [place] [phone] [place] [address] [place] [phone] discuss seroma options surgery vs drain [facility] Comment on above: discuss seroma options surgery vs drain Start: 11-04-2023 End: 11-04-2023 ambulatory 11/04/2023 1:30 PM EDT [facility] Hematology/Oncology [address] [place] [address] (SO)CBC/CMP(S)(PORT)Q3 WK ONTRUZANT/AUTH EXP 01/13/24* FRI TX -OV EVERY OTHER TX Hematology/Oncology Comment on above: (SO)CBC/CMP(S)(PORT)Q3WK ONTRUZANT/AUTH EXP 01/13/24* FRI TX -OV EVERY OTHER TX Start: 10-20-2023 End: 10-20-2023 Patient encounter procedure 10/20/2023 10:40 AM EDT Appointment Radiology [address] [place] [address] 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) [C78.7] Radiology Comment on above: Malignant 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 ( HCC) [C78.7] Start: 10-20-2023 End: 10-20-2023 ambulatory 10/20/2023 10:15 AM EDT Infusion Center Hematology/Oncology [address] [place] [address] Wstr, Lab/[place] [facility] [address] [place] [address] PORT ACCESS FOR IMAGING* Hematology/Oncology Comment on above: PORT ACCESS FOR IMAGING* Start: 10-14-2023 End: 10-14-2023 ambulatory 10/14/2023 1:30 PM EDT Infusion Center Hematology/Oncology [address] [place] [address] Q3WK ONTRUZANT/LAB /6/OV 10/10/AUTH EXP 01/13/24* Hematology/Oncology Comment on above: Q3WK ONTRUZANT/LAB /6/OV 10/10/AUTH EXP * Start: 10-14-2023 End: 10-14-2023 Patient encounter procedure 10/14/2023 9:30 AM EDT Office Visit General Surgery [address] [place] [address] [place] [address] [place] [address] seroma General Surgery Comment on above: seroma Start: 10-11-2023 End: 10-11-2023 ambulatory 10/11/2023 10:50 AM EDT Visit (SP) Office Hematology/Oncology [address] [place] [address] Christiano Centeno DO [address] [place] [address] OV(PORT)/LABS 5/6/CHEMO 10/13* pt only wants to see Dr. Centeno Hematology/Oncology Comment on above: OV(PORT)/LABS /6/CHEMO 10/13* pt only wa nts to see Dr. Centeno Start: 07-13-2023 Covid-19 Vaccine ( season) Covid-19 Vaccine () [facility] Start: 06-06-2023 Advance Directive Discussion Advance Directive Discussion [facility] Start: 02-04-2023 Influenza vaccination [facility] Start: 12-18-2022 Adult depression screening assessment DEPRESSION SCREENING [facility] Start: 09-24-2022 Adult depression screening assessment DEPRESSION SCREENING [facility] Start: 06-30-2022 Adult depression screening assessment DEPRESSION SCREENING [facility] Start: 06-21-2022 COVID-19 VACCINE (6 - Moderna series) COVID-19 VACCINE (6 - Moderna series) [facility] Start: 06-06-2022 ADVANCE DIRECTIVE DISCUSSION ADVANCE DIRECTIVE DISCUSSION [facility] Start: 06-06-2022 DEPRESSION ASSESSMENT DEPRESSION ASSESSMENT [facility] Start: 02-04-2022 Influenza vaccination INFLUENZA (#1) [facility] Start: 11-27-2021 COVID-19 VACCINE (5 - Booster for Moderna series) COVID-19 VACCINE (5 - Booster for Moderna series) [facility] Start: 06-06-2021 ADVANCE DIRECTIVE DISCUSSION ADVANCE DIRECTIVE DISCUSSION [facility] Start: 06-06-2021 DEPRESSION ASSESSMENT DEPRESSION ASSESSMENT [facility] Start: 05-01-2015 PNEUMOCOCCAL: 65+ (2 - PPSV23 if available, else PCV20) PNEUMOCOCCAL: 65+ (2 - PPSV23 if available, else PCV20) [facility] Start: 05-01-2015 PNEUMOCOCCAL: 65+ (2 - PPSV23 or PCV20) PNEUMOCOCCAL: 65+ (2 - PPSV23 or PCV20) [facility] Start: 06-26-2014 Pneumococcal Vaccine: 50+ (2 of 2 - PPSV23) Pneumococcal Vaccine: 50+ (2 of 2 - PPSV23) [facility] Start: 06-26-2014 Pneumococcal Vaccine: 50+ (2 of 2 - PPSV23, PCV20, or PCV21) Pneumococcal Vaccine: 50+ (2 of 2 - PPSV23, PCV20, or PCV21) [facility] Start: 06-26-2014 Pneumococcal Vaccine: 65+ (2 - PPSV23 or PCV20) Pneumococcal Vaccine: 65+ (2 - PPSV23 or PCV20) [facility] Start: 06-26-2014 Pneumococcal Vaccine: 65+ (2 of 2 - PPSV23 or PCV20) Pneumococcal Vaccine: 65+ (2 of 2 - PPSV23 or PCV20) [facility] Start: 06-26-2014 PNEUMOCOCCAL: 65+ (2 - PPSV23 if available, else PCV20) PNEUMOCOCCAL: 65+ (2 - PPSV23 if available, else PCV20) [facility] Start: 06-26-2014 PNEUMOCOCCAL: 65+ (2 - PPSV23 or PCV20) PNEUMOCOCCAL: 65+ (2 - PPSV23 or PCV20) [facility] Start: 2010 BONE DENSITY BONE DENSITY [facility] Start: 2010 Bone Density Screening Bone Density Screening [facility] Start: 2010 PNEUMOVAX AGE 65 AND OVER WITH 5YR LOOKBACK (#1) PNEUMOVAX AGE 65 AND OVER WITH 5YR LOOKBACK (#1) [facility] Start: 2010 Screening for osteoporosis Bone Density Screening [facility] Start: 09-01-2008 SHINGRIX VACCINE (1 of 2) SHINGRIX VACCINE (1 of 2) [facility] Start: 09-01-2008 SHINGRIX VACCINE (2 of 3) SHINGRIX VACCINE (2 of 3) [facility] Start: 2005 RSV Vaccine (1 - 1-dose 60+ series) RSV Vaccine (1 - 1-dose 60+ series) [facility] Start: 1963 Annual PCP Team Chronic Disease Visit Annual PCP Team Chronic Disease Visit [facility] Bacteria identified in Tissue by Culture BACTERIAL CULTURE AND GRAM STAIN, TISSUE Microbiology Routine Abnormal MRI, spine Ordered: 10/08/2024 [facility] Comment on above: Ordered: 10/08/2024 Bacteria identified in Unspecified specimen by Anaerobe culture BACTERIAL CULTURE, TISSUE AND WOUND, ANAEROBIC Microbiology Routine Abnormal MRI, spine Ordered: 10/08/2024 [facility] Comment on above: Ordered: 10/08/2024 End: 06-18-2024 BD DXA TRABECULAR BONE SCORE (TBS) BD DXA TRABECULAR BONE SCORE (TBS) Radiology Routine Local recurrence of cancer of left breast (HCC) 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) Other osteoporosis 1 Occurrences starting 05/20/2023 until 06/18/2024 [facility] Work Phone: Comment on above: 1 Occurrences starting 05/20/2023 until 06/18/2024 C reactive protein [Mass/volume] in Serum or Plasma [facility] End: 11-28-2025 C reactive protein [Mass/volume] in Serum or Plasma C-REACTIVE PROTEIN Lab Routine Vertebral osteomyelitis (HCC) Every other week for 4 Occurrences starting 11/28/2024 until 11/28/2025, 1 completed [facility] Comment on above: Every other week for 4 Occurrences start ing 11/28/2024 until 11/28/2025, 1 completed C reactive protein [Mass/volume] in Serum or Plasma C-REACTIVE PROTEIN Lab Routine Vertebral osteomyelitis (HCC) 12/26/2024 11:33 AM EDT [facility] Work Phone: End: 01-23-2026 C reactive protein [Mass/volume] in Serum or Plasma C-REACTIVE PROTEIN Lab Routine Vertebral osteomyelitis (HCC) Once per month for 3 Occurrences starting 01/23/2025 until 01/23/2026 [facility] Work Phone: Comment on above: Once per month for 3 Occurrences startin g 01/23/2025 until 01/23/2026 CARIS MN TUMOR SEEK HYBRID CARIS MN TUMOR SEEK HYBRID Lab Routine 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, 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) 01/04/2024 12:34 PM EDT [facility] Work Phone: End: 11-30-2022 CBC W Auto Differential panel - Blood CBC + DIFF Lab STAT Malignant neoplasm of breast in female, estrogen receptor positive, unspecified laterality, unspecified site of breast (HCC) Liver metastases (HCC) Every 3 weeks for 18 Occurrences starting 11/30/2021 until 11/30/2022 [facility] Work Phone: Comment on above: Every 3 weeks for 18 Occurrences startin g 11/30/2021 until 11/30/2022 End: 11-30-2023 CBC W Auto Differential panel - Blood CBC + DIFF Lab STAT Breast cancer, stage 4, left (HCC) HER2-positive carcinoma of breast (HCC) Every 3 weeks for 25 Occurrences starting 11/30/2022 until 11/30/2023 [facility] Work Phone: Comment on above: Every 3 weeks for 25 Occurrences startin g 11/30/2022 until 11/30/2023 CBC W Auto Different ial panel - Blood [facility] End: 11-28-2025 CBC W Auto Differential panel - Blood COMPLETE BLOOD COUNT AND DIFFERENTIAL Lab Routine Vertebral osteomyelitis (HCC) Every other week for 4 Occurrences starting 11/28/2024 until 11/28/2025, 1 completed [facility] Work Phone: Comment on above: Every other week for 4 Occurrences start ing 11/28/2024 until 11/28/2025, 1 completed End: 11-30-2022 Comprehensive metabolic 2000 panel - Serum or Plasma COMP METABOLIC PANEL Lab STAT Malignant neoplasm of breast in female, estrogen receptor positive, unspecified laterality, unspecified site of breast (HCC) Liver metastases (HCC) Every 3 weeks for 18 Occurrences starting 11/30/2021 until 11/30/2022 [facility] Work Phone: Comment on above: Every 3 weeks for 18 Occurrences startin g 11/30/2021 until 11/30/2022 End: 11-30-2023 Comprehensive metabolic 2000 panel - Serum or Plasma COMP METABOLIC PANEL Lab STAT Breast cancer, stage 4, left (HCC) HER2-positive carcinoma of breast (HCC) Every 3 weeks for 25 Occurrences starting 11/30/2022 until 11/30/2023 [facility] Work Phone: Comment on above: Every 3 weeks for 25 Occurrences startin g 11/30/2022 until 11/30/2023 End: 10-25-2022 Ct abdomen & pelvis w/contrast material CT ABD/PEL W IVCON Radiology Routine Malignant neoplasm of breast in female, estrogen receptor positive, unspecified laterality, unspecified site of breast (HCC) Liver metastases (HCC) HER2-positive carcinoma of breast (HCC) 1 Occurrences starting 09/25/2021 until 10/25/2022 [facility] Work Phone: Comment on above: 1 Occurrences starting 09/25/2021 until 10/25/2022 End: 08-02-2025 CT Abdomen and Pelvis WO contrast CT ABD/PEL WO IVCON Radiology Routine Flank hernia 1 Occurrences starting 07/03/2024 until 08/02/2025 [facility] Work Phone: Comment on above: 1 Occurrences starting 07/03/2024 until 08/02/2025 End: 10-25-2022 Ct thorax w/contrast material CT CHEST W IVCON Radiology Routine Malignant neoplasm of breast in female, estrogen receptor positive, unspecified laterality, unspecified site of breast (HCC) Liver metastases (HCC) HER2-positive carcinoma of breast (HCC) 1 Occurrences starting 09/25/2021 until 10/25/2022 [facility] Work Phone: Comment on above: 1 Occurrences starting 09/25/2021 until 10/25/2022 End: 10-08-2023 Ct thorax w/o contrast material CT CHEST WO IVCON Radiology Routine Breast cancer, stage 4, left (HCC) 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) 1 Occurrences starting 09/08/2022 until 10/08/2023 [facility] Work Phone: Comment on above: 1 Occurrences starting 09/08/2022 until 10/08/2023 End: 02-02-2024 Ct thorax w/o contrast material CT CHEST WO IVCON Radiology Routine Breast cancer, stage 4, left (HCC) 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) 1 Occurrences starting 01/03/2023 until 02/02/2024 [facility] Work Phone: Comment on above: 1 Occurrences starting 01/03/2023 until 02/02/2024 End: 06-18-2024 DXA-AXIAL SKELETON DXA-AXIAL SKELETON Radiology Routine Local recurrence of cancer of left breast (HCC) 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) Other osteoporosis 1 Occurrences starting 05/20/2023 until 06/18/2024 [facility] Work Phone: Comment on above: 1 Occurrences starting 05/20/2023 until 06/18/2024 End: 04-16-2025 ECHO LIMITED ECHO LIMITED Cardiology Routine Encounter for monitoring cardiotoxic drug therapy 1 Occurrences starting 04/16/2024 until 04/16/2025 [facility] Work Phone: Comment on above: 1 Occurrences starting 04/16/2024 until 04/16/2025 End: 09-25-2022 Echocardiography ECHO Cardiology Routine Malignant neoplasm of breast in female, estrogen receptor positive, unspecified laterality, unspecified site of breast (HCC) Liver metastases (HCC) HER2-positive carcinoma of breast (HCC) 1 Occurrences starting 09/25/2021 until 09/25/2022 [facility] Work Phone: Comment on above: 1 Occurrences starting 09/25/2021 until 09/25/2022 End: 02-01-2023 Echocardiography ECHO Cardiology Routine HER2-positive carcinoma of breast (HCC) Liver metastases (HCC) 1 Occurrences starting 02/01/2022 until 02/01/2023 [facility] Work Phone: Comment on above: 1 Occurrences starting 02/01/2022 until 02/01/2023 End: 05-05-2023 Echocardiography ECHO Cardiology Routine HER2-positive carcinoma of breast (HCC) Liver metastases (HCC) 1 Occurrences starting 05/05/2022 until 05/05/2023 [facility] Work Phone: Comment on above: 1 Occurrences starting 05/05/2022 until 05/05/2023 End: 09-09-2023 Echocardiography ECHO Cardiology Routine Breast cancer, stage 4, left (HCC) HER2-positive carcinoma of breast (HCC) 1 Occurrences starting 09/08/2022 until 09/09/2023 [facility] Work Phone: Comment on above: 1 Occurrences starting 09/08/2022 until 09/09/2023 End: 01-04-2024 Echocardiography ECHO Cardiology Routine Breast cancer, stage 4, left (HCC) 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) 1 Occurrences starting 01/03/2023 until 01/04/2024 [facility] Work Phone: Comment on above: 1 Occurrences starting 01/03/2023 until 01/04/2024 End: 04-06-2024 Echocardiography ECHO Cardiology Routine Local recurrence of cancer of left breast (HCC) HER2-positive carcinoma of breast (HCC) Encounter for monitoring cardiotoxic drug therapy 1 Occurrences starting 04/06/2023 until 04/06/2024 [facility] Work Phone: Comment on above: 1 Occurrences starting 04/06/2023 until 04/06/2024 End: 10-24-2024 Echocardiography ECHO Cardiology Routine Encounter for monitoring cardiotoxic drug therapy HER2-positive carcinoma of breast (HCC) 1 Occurrences starting 10/25/2023 until 10/24/2024 [facility] Work Phone: Comment on above: 1 Occurrences starting 10/25/2023 until 10/24/[address]ion rate [facility] Ferritin [Mass/volum e] in Serum or Plasma FERRITIN BLD Lab Routine Anemia, unspecified type 07/28/2022 7:48 AM [facility] Work Phone: Ferritin [Mass/volum e] in Serum or Plasma FERRITIN Lab Routine Thrombocytosis 06/22/2024 11:13 AM [facility] Guidance for percuta neous biopsy of Bone IMAGING GUIDED BIOPSY VERTEBRA OR FEMUR Radiology Routine Abnormal MRI, spine Ordered: 10/08/2024 [facility] Work Phone: Comment on above: Ordered: 10/08/2024 H&P for surgery H&P FOR SURGERY Procedures Routine HER2-positive carcinoma of breast (HCC) Ordered: 05/19/2023 [facility] Work Phone: Comment on above: Ordered: 05/19/2023 H&P for surgery H&P FOR SURGERY Procedures Routine Seroma of breast Excessive and redundant skin and subcutaneous tissue Ordered: 11/09/2023 [facility] Work Phone: Comment on above: Ordered: 11/09/2023 Iron and Iron bindin g capacity panel - Serum or Plasma IRON + TIBC Lab Routine Anemia, unspecified type 07/28/2022 7:48 AM EST [facility] Work Phone: Iron and Iron bindin g capacity panel - Serum or Plasma IRON AND TIBC Lab Routine Thrombocytosis 06/22/2024 11:13 AM [employer] [facility] Work Phone: End: 03-24-2024 CHHAYA DIAGNOSTIC BILATERAL CHHAYA DIAGNOSTIC BILATERAL Radiology Routine Local recurrence of cancer of left breast (HCC) 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) 1 Occurrences starting 02/23/2023 until 03/24/2024 [facility] Work Phone: Comment on above: 1 Occurrences starting 02/23/2023 until 03/24/2024 Mastectomy simple complete MASTECTOMY, SIMPLE, COMPLETE Procedures Routine HER2-positive carcinoma of breast (HCC) Ordered: 05/19/2023 [facility] Work Phone: Comment on above: Ordered: 05/19/2023 Microorganism identi fied in Unspecified specimen by Culture [facility] Comment on above: Ordered: 10/08/2024 End: 08-18-2024 MR Abdomen WO and W contrast IV MRI ABDOMEN WO/W IVCON Radiology Routine Breast cancer, stage 4, left (HCC) 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) 1 Occurrences starting 07/20/2023 until 08/18/2024 [facility] Work Phone: Comment on above: 1 Occurrences starting 07/20/2023 until 08/18/2024 MR Abdomen WO and W contrast IV MRI ABDOMEN WO/W IVCON Radiology Routine Breast cancer, stage 4, left (HCC) 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) 08/22/2023 2:22 PM EDT [facility] Work Phone: End: 12-22-2024 MR Abdomen WO and W contrast IV MRI ABDOMEN WO/W IVCON Radiology Routine 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, 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) Local recurrence of cancer of left breast (HCC) 1 Occurrences starting 11/23/2023 until 12/22/2024 [facility] Work Phone: Comment on above: 1 Occurrences starting 11/23/2023 until 12/22/2024 MR Abdomen WO and W contrast IV MRI ABDOMEN WO/W IVCON Radiology Routine 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, 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) Local recurrence of cancer of left breast (HCC) 01/02/2024 3:19 PM EDT [facility] Work Phone: End: 03-29-2025 MR Abdomen WO and W contrast IV MRI ABDOMEN WO/W IVCON Radiology Routine 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) 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, right (HCC) HER2-positive carcinoma of breast (HCC) 1 Occurrences starting 02/28/2024 until 03/29/2025 [facility] Work Phone: Comment on above: 1 Occurrences starting 02/28/2024 until 03/29/2025 MR Abdomen WO and W contrast IV MRI ABDOMEN WO/W IVCON Radiology Routine 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) 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, right (HCC) HER2-positive carcinoma of breast (HCC) 03/21/2024 10:09 AM [facility] Work Phone: End: 07-21-2025 MR Abdomen WO and W contrast IV MRI ABDOMEN WO/W IVCON Radiology Routine Malignant neoplasm of female breast, unspecified estrogen receptor status, unspecified laterality, unspecified site of breast (HCC) 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) 1 Occurrences starting 06/21/2024 until 07/21/2025 [facility] Comment on above: 1 Occurrences starting 06/21/2024 until 07/21/2025 MR Abdomen WO and W contrast IV MRI ABDOMEN WO/W IVCON Radiology Routine Malignant neoplasm of female breast, unspecified estrogen receptor status, unspecified laterality, unspecified site of breast (HCC) 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) 07/09/2024 10:23 AM [facility] Work Phone: End: 02-03-2026 MR Abdomen WO and W contrast IV MRI ABDOMEN WO/W IVCON Radiology Routine 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, 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) Stage IV breast cancer in female (HCC) Carcinoma of left breast, stage 4 (HCC) 1 Occurrences starting 01/04/2025 until 02/03/2026 [facility] Comment on above: 1 Occurrences starting 01/04/2025 until 02/03/2026 MR Abdomen WO and W contrast IV MRI ABDOMEN WO/W IVCON Radiology Routine 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, 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) Stage IV breast cancer in female (HCC) Carcinoma of left breast, stage 4 (HCC) 01/15/2025 12:58 PM [facility] Work Phone: End: 11-09-2024 MR Brain WO and W contrast IV MRI BRAIN WO/W IVCON Radiology Routine 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) 1 Occurrences starting 10/11/2023 until 11/09/2024 [facility] Work Phone: Comment on above: 1 Occurrences starting 10/11/2023 until 11/09/2024 Mri abdomen w/o & w/contrast material MRI LIVER WO/W IVCON Radiology Routine Liver metastases (HCC) 12/16/2021 3:05 PM EDT [facility] Work Phone: End: 06-04-2023 Mri abdomen w/o & w/contrast material MRI ABDOMEN WO/W IVCON Radiology Routine HER2-positive carcinoma of breast (HCC) Liver metastases (HCC) 1 Occurrences starting 05/05/2022 until 06/04/2023 [facility] Work Phone: Comment on above: 1 Occurrences starting 05/05/2022 until 06/04/2023 End: 10-08-2023 Mri abdomen w/o & w/contrast material MRI ABDOMEN WO/W IVCON Radiology Routine Breast cancer, stage 4, left (HCC) 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) 1 Occurrences starting 09/08/2022 until 10/08/2023 [facility] Work Phone: Comment on above: 1 Occurrences starting 09/08/2022 until 10/08/2023 End: 02-02-2024 Mri abdomen w/o & w/contrast material MRI ABDOMEN WO/W IVCON Radiology Routine Breast cancer, stage 4, left (HCC) 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) 1 Occurrences starting 01/03/2023 until 02/02/2024 [facility] Work Phone: Comment on above: 1 Occurrences starting 01/03/2023 until 02/02/2024 End: 05-05-2024 NM PET/CT BREAST NM PET/CT BREAST Radiology Routine Local recurrence of cancer of left breast (HCC) 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) 1 Occurrences starting 04/06/2023 until 05/05/2024 [facility] Work Phone: Comment on above: 1 Occurrences starting 04/06/2023 until 05/05/2024 End: 03-03-2023 NM PET/CT SKULL-THIGH SUBSEQUENT NM PET/CT SKULL-THIGH SUBSEQUENT Radiology Routine HER2-positive carcinoma of breast (HCC) Liver metastases (HCC) 1 Occurrences starting 02/01/2022 until 03/03/2023 [facility] Work Phone: Comment on above: 1 Occurrences starting 02/01/2022 until 03/03/2023 Patient Education [facility] Work Phone: Patient referral [facility] Work Phone: End: 08-18-2024 PET+CT Guidance for localization of tumor of Skull base to mid-thigh-- W 18F-FDG IV NM PET/CT SKULL-THIGH SUBSEQUENT Radiology Routine Breast cancer, stage 4, left (HCC) 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) 1 Occurrences starting 07/20/2023 until 08/18/2024 [facility] Work Phone: Comment on above: 1 Occurrences starting 07/20/2023 until 08/18/2024 PET+CT Guidance for localization of tumor of Skull base to mid-thigh-- W 18F-FDG IV NM PET/CT SKULL-THIGH SUBSEQUENT Radiology Routine Breast cancer, stage 4, left (HCC) 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) 08/22/2023 12:58 PM EDT [facility] Work Phone: End: 03-29-2025 PET+CT Guidance for localization of tumor of Skull base to mid-thigh-- W 18F-FDG IV NM PET/CT SKULL-THIGH SUBSEQUENT Radiology Routine 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) 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, right (HCC) HER2-positive carcinoma of breast (HCC) 1 Occurrences starting 02/28/2024 until 03/29/2025 [facility] Comment on above: 1 Occurrences starting 02/28/2024 until 03/29/2025 End: 07-21-2025 PET+CT Guidance for localization of tumor of Skull base to mid-thigh-- W 18F-FDG IV NM PET/CT SKULL-THIGH SUBSEQUENT Radiology Routine Malignant neoplasm of female breast, unspecified estrogen receptor status, unspecified laterality, unspecified site of breast (HCC) 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) 1 Occurrences starting 06/21/2024 until 07/21/2025 [facility] Comment on above: 1 Occurrences starting 06/21/2024 until 07/21/2025 PET+CT Guidance for localization of tumor of Skull base to mid-thigh-- W 18F-FDG IV NM PET/CT SKULL-THIGH SUBSEQUENT Radiology Routine Malignant neoplasm of female breast, unspecified estrogen receptor status, unspecified laterality, unspecified site of breast (HCC) 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) 07/11/2024 10:30 AM EST [facility] Work Phone: End: 02-03-2026 PET+CT Guidance for localization of tumor of Skull base to mid-thigh-- W 18F-FDG IV NM PET/CT SKULL-THIGH SUBSEQUENT Radiology Routine 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, 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) Stage IV breast cancer in female (HCC) Carcinoma of left breast, stage 4 (HCC) 1 Occurrences starting 01/04/2025 until 02/03/2026 [facility] Work Phone: Comment on above: 1 Occurrences starting 01/04/2025 until 02/03/2026 PT education noc individ PT EDUC ATION NOC INDIVID Procedures Routine HER2-positive carcinoma of breast (HCC) Ordered: 05/19/2023 [facility] Work Phone: Comment on above: Ordered: 05/19/2023 PT education noc individ PT EDUC ATION NOC INDIVID Procedures Routine Seroma of breast Excessive and redundant skin and subcutaneous tissue Ordered: 11/09/2023 [facility] Comment on above: Ordered: 11/09/2023 Tissue Pathology bio psy report SURGICAL PATHOLOGY Lab Routine Abnormal MRI, spine Ordered: 10/08/2024 [facility] Comment on above: Ordered: 10/08/2024 Unlisted procedure breast BREAST SURGERY PROCEDURE UNLISTED Procedures Routine Seroma of breast Excessive and redundant skin and subcutaneous tissue Ordered: 11/09/2023 [facility] Comment on above: Ordered: 11/09/2023 Urinalysis complete panel - Urine [facility] Urinalysis complete panel - Urine [facility] End: 12-09-2024 US Abdomen RUQ US ABD RIGHT UPPER QUADRANT Radiology Routine 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) 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, 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) 1 Occurrences starting 11/10/2023 until 12/09/2024 [facility] Work Phone: Comment on above: 1 Occurrences starting 11/10/2023 until 12/09/2024 US Abdomen RUQ US ABD RIGHT UPP ER QUADRANT Radiology Routine 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) 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, 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) 11/17/2023 11:07 AM EDT [facility] Work Phone: XR HIP GENERAL 3V PELV/AP/LAT LEFT XR HIP GENERAL 3V PELV/AP/LAT LEFT Radiology Routine Malignant neoplasm of breast in female, estrogen receptor positive, unspecified laterality, unspecified site of breast (HCC) Pain in left hip 11/06/2021 11:37 AM EDT [facility] Work Phone: [facility] Immunizations Immunization Date Immunization Notes Care Provider Fa cilicarlos 02-27-2024 influenza virus vaccine, unspecified formulation Lab/Port Wstr Work Phone: [facility] 03-18-2023 influenza virus vaccine, unspecified formulation Treatment Wstr Work Phone: [facility] 2022 influenza virus vaccine, unspecified formulation Lab/Port Wstr Work Phone: [facility] 08-27-2020 Covid (Moderna) [facility] 07-30-2020 Covid (Moderna) [facility] 03-07-2020 influenza, high dose seasonal, preservative-free Treatment Wstr Work Phone: [facility] 03-15-2019 influenza, high dose seasonal, preservative-free Treatment Wstr Work Phone: [facility] 02-10-2018 influenza, high dose seasonal, preservative-free Treatment Wstr Work Phone: [facility] 12-12-2017 tetanus toxoid, redu young diphtheria toxoid, and acellular pertussis vaccine, adsorbed Treatment Wstr Work Phone: [facility] 12-12-2017 diphtheria, tetanus toxoids and acellular pertussis vaccine, unspecified formulation; Translations: [Boostrix Tdap (diphth,pertus(acell),t etanus) 2.5 Lf unit-8 mcg-5 Lf/0.[address]] [facility] Work Phone: 02-16-2017 influenza, high dose seasonal, preservative-free Treatment Wstr Work Phone: [facility] 12-06-2016 hepatitis B vaccine, adult dosage Treatment Wstr Work Phone: [facility] 11-03-2016 hepatitis B vaccine, adult dosage Treatment Wstr Work Phone: [facility] 03-09-2016 influenza, high dose seasonal, preservative-free Treatment Wstr Work Phone: [facility] 05-01-2014 pneumococcal conjuga te vaccine, 13 valent Treatment Wstr Work Phone: [facility] 07-07-2008 zoster vaccine, live Treatme nt Wstr Work Phone: [facility] Payers Date Payer Category Payer Self-pay [id number] 2018 Medicare (Managed Care) 1.2. [id number] 2018 Unknown [facility] O [id number] 2018-Present [phone] [address] [place] [address] O [id number] 2018 Unknown [id number] 2018 Unknown [id number] 2013 Medicare [id number] Medicare [id number] Unknown [id number] Unknown [id number] [id number] .462 Unknown [id number] 2.16.840.1.479264.3.579.2 .462 Unknown [id number] 2.16.840.1.162515.3.579.2 .462 Unknown [id number] 2.16.840.1.541084.3.579.2 .462 Unknown [id number] 2.16.840.1.720971.3.579.2 .462 Unknown [id number] 2.16.840.1.428983.3.579.2 .462 Unknown [id number] 2.16.840.1.039524.3.579.2 .462 Unknown [id number] 2.16.840.1.778880.3.579.2 .462 Unknown [id number] 2.840.1.214782.3.579.2 .462 Unknown [id number] 2.840.1.172554.3.579.2 .462 Unknown [id number] 2.840.1.308635.3.579.2 .462 Unknown [id number] 2..840.1.276573.3.579.2 .462 Unknown [id number] 2.840.1.994252.3.579.2 .462 Unknown [id number] 2.16840.1.396143.3.579.2 .462 Unknown [id number] 2.840.1.355006.3.579.2 .462 Unknown [id number] 2.16840.1.523284.3.579.2 .462 Unknown [id number] 2.16.840.1.260837.3.579.2 .462 Unknown [id number] 2.16.840.1.435004.3.579.2 .462 Unknown [id number] 2.16.840.1.073919.3.579.2 .462 Unknown [id number] 2.16840.1.825090.3.579.2 .462 Unknown [id number] 2.16.840.1.374218.3.579.2 .462 Unknown [id number] 2.16.840.1.957578.3.579.2 .462 Unknown [id number] 2.16.840.1.924250.3.579.2 .462 Unknown [id number] 2.16.840.1.011049.3.579.2 .462 Unknown [id number] 2.16.840.1.514511.3.579.2 .462 Unknown [id number] 2.16.840.1.259180.3.579.2 .462 Unknown [id number] 2.16.840.1.753904.3.579.2 .462 Unknown [id number] 2.16.840.1.333621.3.579.2 .462 Unknown [id number] 2.16.840.1.667934.3.579.2 .462 Unknown [id number] 2.16.840.1.298411.3.579.2 .462 Social History Date Type Detail Facility Start: 08-21-2014 End: 08-25-2024 Tobacco smoking status NHIS Ex-smoker [facility] Work Phone: Start: 09-17-1963 End: 09-16-1965 History of tobacco use Current smoker [facility] Work Phone: Start: 09-17-1963 End: 09-16-1965 History of tobacco use Cigarette Smoker [facility] Work Phone: Start: 08-21-2014 End: 02-20-2024 Tobacco use and exposure Smokeless tobacco non-user [facility] Work Phone: Start: 08-14-2021 End: 01-23-2025 Alcohol intake Current drinker of alcohol (finding) [facility] Start: 10-02-2020 History SDOH Alcohol Frequency 1 [facility] Start: 07-24-2020 History SDOH Alcohol Comment moderate [facility] Start: 10-02-2020 History SDOH Social Connections Phone 5 [facility] Start: 10-02-2020 History SDOH Social Connections Get Together 4 [facility] Start: 10-02-2020 History SDOH Social Connections Sabianism 3 [facility] Start: 10-02-2020 History SDOH Physical Activity DPW 2 [facility] Start: 09-16-2020 End: 04-22-2022 Tobacco Comment Pt smoked 2-3 cigarettes daily x 2 years. [facility] Start: 1945 Sex Assigned At Female [facility] Start: 08-28-2021 End: 05-05-2022 Exposure to SARS-CoV-2 (event) Not sure [facility] Start: 06-11-2021 End: 01-14-2023 Tobacco smoking status NHIS Unknown if ever smoked [facility] Start: 10-02-2020 End: 10-14-2022 History of Social function [facility] Start: 10-02-2020 End: 10-14-2022 Social connection and isolation panel [facility] Do you belong to any clubs or organizations such as sikh groups, unions, fraternal or athletic groups, or school groups? Yes [facility] Are you now , , , , never or living with a partner? [facility] How often to you hav e a drink containing alcohol? Never [facility] Start: 08-02-2014 Average Number of Drinks Not on file [facility] Do you feel stress - tense, restless, nervous, or anxious, or unable to sleep at night because your mind is troubled all the time - these days [OSQ] Only a little [facility] (I/We) worried wheth er (my/our) food would run out before (I/we) got money to buy more. Never true [facility] In the past 12 month s, was there a time when you were not able to pay the mortgage or rent on time? No [facility] Start: 07-20-2020 Gender identity Identifies as female gender (finding) [facility] Start: 08-27-2020 Sexual orientation Heterosexual (finding) [facility] Start: 08-25-2024 End: 08-29-2024 Sex Female (finding) [facility] Medical Equipment Procedure Code Equipment Code Equipment Origin al Text Equipment Identifier Dates Insertion, vascular access port PORT,POWER 8FR FDA Start: 09-29-2020 Insertion, vascular access port PORT,POWER 8FR FDA Start: 09-29-2020 Insertion, vascular access port PORT,POWER 8FR FDA Start: 09-29-2020 Insertion, vascular access port PORT,POWER 8FR FDA Start: 09-29-2020 Insertion, vascular access port PORT,POWER 8FR FDA Start: 09-29-2020 Insertion, vascular access port PORT,POWER 8FR FDA Start: 09-29-2020 Insertion, vascular access port PORT,POWER 8FR FDA Start: 09-29-2020 Insertion, vascular access port PORT,POWER 8FR FDA Start: 09-29-2020 Insertion, vascular access port PORT,POWER 8FR FDA Start: 09-29-2020 Insertion, vascular access port PORT,POWER 8FR FDA Start: 09-29-2020 Insertion, vascular access port PORT,POWER 8FR FDA Start: 09-29-2020 Insertion, vascular access port PORT,POWER 8FR FDA Start: 09-29-2020 Insertion, vascular access port PORT,POWER 8FR FDA Start: 09-29-2020 Insertion, vascular access port PORT,POWER 8FR FDA Start: 09-29-2020 Insertion, vascular access port PORT,POWER 8FR FDA Start: 09-29-2020 Insertion, vascular access port PORT,POWER 8FR FDA Start: 09-29-2020 Insertion, vascular access port PORT,POWER 8FR FDA Start: 09-29-2020 Insertion, vascular access port PORT,POWER 8FR FDA Start: 09-29-2020 Insertion, vascular access port PORT,POWER 8FR FDA Start: 09-29-2020 Goals Date Patient Goal Desired Activity /State Functional Status Date Assessment Result Facility 10-05-2024 Are you deaf, or do you have serious difficulty hearing No 10/05/2024 3:55 PM Dayanara Sanches, CRISTINA No [facility] 10-05-2024 Are you blind, or do you have serious difficulty seeing, even when wearing glasses No 10/05/2024 3:55 PM Dayanara Sanches, RN No [facility] 10-05-2024 Do you have serious difficulty walking or climbing stairs No 10/05/2024 3:55 PM Dayanara Sanches, RN No [facility] 10-05-2024 Do you have difficul ty dressing or bathing No 10/05/2024 3:55 PM Dayanara Sanches, RN No [facility] 10-05-2024 Because of a physica l, mental, or emotional condition, do you have difficulty doing errands alone such as visiting a physician's office or shopping Yes 10/05/2024 3:55 PM Dayanara Sanches, RN Yes [facility] 08-29-2024 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[employer];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[facility] Work 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: 06-29-2023 Are you deaf, or do you have serious difficulty hearing No 06/29/2023 3:23 PM Nico Sarkar RN No [facility] 06-29-2023 Are you blind, or do you have serious difficulty seeing, even when wearing glasses No 06/29/2023 3:23 PM Nico Sarkar RN No [facility] 06-29-2023 Do you have serious difficulty walking or climbing stairs No 06/29/2023 3:23 PM Nico Sarkar RN No [facility] 06-29-2023 Do you have difficul ty dressing or bathing No 06/29/2023 3:23 PM Nico Sarkar RN No [facility] 06-29-2023 Because of a physica l, mental, or emotional condition, do you have difficulty doing errands alone such as visiting a physician's office or shopping No 06/29/2023 3:23 PM Nico Sarkar RN No [facility] Mental Status Date Assessment Result Facility 11-20-2024 Cognitive function Awake;Alert;A ppropriate; Follows [facility] Work Phone: 10-26-2024 Cognitive function Voice/Name [facility] Work Phone: 10-19-2024 Cognitive function Awake;Alert;A ppropriate; Follows [facility] Work Phone: 10-05-2024 Because of a physica l, mental, or emotional condition, do you have serious difficulty concentrating, remembering, or making decisions Yes 10/05/2024 3:55 PM Dayanara Sanches, RN Yes [facility] 08-29-2024 Cognitive function Voice/Name [facility] Work Phone: 08-29-2024 Cognitive function Appropriate;Cooperativ e [facility] Work Phone: 06-04-2024 Cognitive function Voice/Name [facility] Work Phone: 05-23-2024 Cognitive function Voice/Name [facility] Work Phone: 06-29-2023 Because of a physica l, mental, or emotional condition, do you have serious difficulty concentrating, remembering, or making decisions No 06/29/2023 3:23 PM Nico Sarkar RN No [facility] Clinical Notes 02-19-2021 to 03-20-2025 Telephone Encounter - Amy Grace LPN - 02/13/2025 8:32 AM EDTTelephone Encounter - Amy Grace LPN - 02/13/2025 8:32 AM EDTTelephone Encounter - Christiano Centeno DO - 02/13/2025 6:28 AM EDT Note Date & Type Note Facility 03-20-2025 Note [facility] 03-19-2025 Progress note [facility] 03-01-2025 Note HNO ID: [id number] Author: BASIA TOMPKINS RN Service: ? Author Type: Registered Nurse Type: Progress Notes Filed: 03/01/2025 12:41 Note Text: No changes to assessment from 02/27/25. Basia Tompkins RN [facility] 02-28-2025 Radiology Diagnostic study note [facility] Imaging Services [address] [place], [place] [address] Abdomen Complete MR#: [id number] Acct: [id number] Name: DANETTE BISHOP Rep #: [id number] F [id number] From: Viraj Mortensen MD PCP: Dr. Eveline Argueta, Status: REG CLI Study:Abdomen Complete Date of Exam: Exam# [id number] Ordering Dr: Ra nick Castellano [employer] PROCEDURE: ABDOMEN COMPLETE 02/28/2025 REASON FOR EXAM: L/R UPPER QUAD PAIN TECHNIQUE: Procedure Code: USABDC Modality: US Procedure: ABDOMEN COMPLETE COMPARISON: 07/08/2020 FINDINGS: Liver: Grossly normal size and echotexture.. The liver measures 12.7 cm in vertical dimension in the midclavicular line. There is normal hepatopetal flow in the portal venous system. Gallbladder: No stones, sludge, wall thickening or tenderness. Common bile duct: 3 mm Pancreas: Visualized portions are sonographically unremarkable. Kidneys: The right kidney measures 10.0 x 4.4 x 4.3 cm. The left kidney measures 10.0 x 4.9 x 4.7 cm. Renal parenchymal thicknesses and echotextures are preserved. No hydronephrosis. Spleen: The spleen is not visualized. Aorta: Visualized abdominal aorta is of normal size. IVC: Visualized inferior vena cava is unremarkable. Peritoneal Findings: No ascites identified. US/Abdomen Complete IMPRESSION: The spleen is not visualized. Otherwise unremarkable. Reading Location: [id number] CC: [employer] Felicia Castellano; Dr. Eveline Argueta DO ~ Home Care Liaison: Signed [facility] Work Phone: 02-27-2025 Note [facility] 02-13-2025 Telephone encounter Note Patient notified. Amy Grace LPN [facility] 02-13-2025 Miscellaneous Notes Patient notified. Amy Grace LPN I don't think LUQ pain is an oncologic issue. More likely functional bowel problem. Advise she contact PCP to further assess. Christiano Centeno DO Patient is aware of all information below. Patient states LUQ pain is intermittent and when it comes on, is sharp and stabbing,comes on quickly and leaves quickly. She denies nausea. She moves her bowels daily (takes Miralax daily) and denies straining. Amy Grace LPN She didn't have a CT in March 2024. There was a PET scan and MRI. PET scan mentions the T6 sclerotic focus as not being FDG avid. I specifically ordered an MRI of the thoracic spine in 2020 as part of her original staging workup to evaluate that area. It has shown up on multiple imaging studies since then and has not changed. It is a bone island which is benign. No cancer in the bones. In regard to the left upper quadrant pain, how often her bowels moving? Is she straining to move her bowels? Christiano Centeno DO Patient has c/o nausea and LUQ pain (aching in nature) after eating x 2 months. Denies emesis. Denies any changes in bowel movements. She has limited her food intake with minimal relief. Next OV is 02/27. Patient is here for treatment in infusion room 4 at this time. Patient has additional question - she was reviewing her CT report from March of 2024, it notes history of liver and skeletal metastasis. States she has never been informed of skeletal involvement and would like this to be clarified. documented in this encounter [facility] 02-13-2025 Telephone encounter Note I don't think LUQ pain is an oncologic issue. More likely functional bowel problem. Advise she contact PCP to further assess. Christiano Centeno DO [facility] 02-12-2025 Telephone encounter Note Patient is aware of all information below. Patient states LUQ pain is intermittent and when it comes on, is sharp and stabbing,comes on quickly and leaves quickly. She denies nausea. She moves her bowels daily (takes Miralax daily) and denies straining. Amy Grace LPN [facility] 02-12-2025 Telephone encounter Note She didn't have a CT in March 2024. There was a PET scan and MRI. PET scan mentions the T6 sclerotic focus as not being FDG avid. I specifically ordered an MRI of the thoracic spine in 2020 as part of her original staging workup to evaluate that area. It has shown up on multiple imaging studies since then and has not changed. It is a bone island which is benign. No cancer in the bones. In regard to the left upper quadrant pain, how often her bowels moving? Is she straining to move her bowels? Christiano Centeno DO [facility] 02-08-2025 Telephone encounter Note Patient has c/o nausea and LUQ pain (aching in nature) after eating x 2 months. Denies emesis. Denies any changes in bowel movements. She has limited her food intake with minimal relief. Next OV is 02/27. Patient is here for treatment in infusion room 4 at this time. Patient has additional question - she was reviewing her CT report from March of 2024, it notes history of liver and skeletal metastasis. States she has never been informed of skeletal involvement and would like this to be clarified. [facility] 01-28-2025 Note HNO ID: [id number] Author: HARJEET MENDEZ RT(R) Service: ? Author Type: Technologist Type: Progress Notes Filed: 01/28/2025 12:21 Note Text: RADIOLOGY SERVICE PROGRESS NOTE SERVICE DATE: 01/28/2025 SERVICE TIME: 12:20 PM PATIENT IDENTITY VERIFICATION COMPLETED USING TWO (2) STANDARD IDENTIFIERS: Name and Date of confirmed by patient verbally FALL SCREENING: Has the patient had 2 falls in the last year or 1 fall with injury or currently using an Ambulatory Assistive Device (Walker, Cane, Wheelchair, Crutches, etc.)? No PATIENT GENDER DATA: .female : No ALLERGIES: NA MEDICATIONS REVIEWED: Not applicable PATIENT RELEVANT IMPLANT DATA REVIEWED: Not Applicable PATIENT PRESENTS WITH AN IMPLANTABLE OR ATTACHED GARNETTER: NA CREATININE: Creatinine Date Value Ref Range Status 01/15/2025 0.68 0.58 - 0.96 mg/dL Final 12/26/2024 0.63 0.58 - 0.96 mg/dL Final 12/04/2024 0.69 0.58 - 0.96 mg/dL Final Estimated Glomerular Filtration Rate Date Value Ref Range Status 01/15/2025 89 >=60 mL/min/1.73m? Final Comment: Estimated Glomerular Filtration Rate (eGFR) is calculated using the 2020 CKD-EPI creatinine equation. This equation utilizes serum creatinine, sex, and age as parameters. The creatinine assay has traceable calibration to isotope dilution-mass spectrometry. Refer to KDIGO guidelines for clinical interpretation. In patients with unstable renal function, e.g. those with acute kidney injury, the eGFR may not accurately reflect actual GFR. eGFR- Date Value Ref Range Status 07/27/2021 >60 Final P.O.C.T. RESULTS: N/A January 28, [address] PERFORMED: No IV SITE: Ambulatory: A peripheral IV was started in the Right antecubital site with a Angio cath: 22 gauge. POST EXAM PIV STATUS: Discontinued PROCEDURE TYPE: NM INJECT: PET/CT BODY SCAN. 9.3 mCi F18 FDG. Administered By: COLLIN . No other medications given.. ADMINISTRATION TIME: 1205 PATIENT DISCHARGED TO: Ambulatory patient, left NM department area. Is this a therapy: No A Diagnostic radioactive procedure has taken place, with no further precautions necessary other than routine body substance precautions. More information regarding radiation safety can be found using this link: [email or web address] 20Diagnostic%20Nuclear%20Medicine% 20Procedures.[email or web address] SIGNATURE: RT Flaco(R) PATIENT NAME: Danette Bishop DATE: January 28, 2025 TIME: 12:20 PM PAGER/CONTACT #: [facility] 01-28-2025 History of Present illness Narrative RADIOLOGY SERVICE PROGRESS NOTE SERVICE DATE: 01/28/2025 SERVICE TIME: 12:20 PM PATIENT IDENTITY VERIFICATION COMPLETED USING TWO (2) STANDARD IDENTIFIERS: Name and Date of confirmed by patient verbally FALL SCREENING: Has the patient had 2 falls in the last year or 1 fall with injury or currently using an Ambulatory Assistive Device (Walker, Cane, Wheelchair, Crutches, etc.)? No PATIENT GENDER DATA: .female : No ALLERGIES: NA MEDICATIONS REVIEWED: Not applicable PATIENT RELEVANT IMPLANT DATA REVIEWED: Not Applicable PATIENT PRESENTS WITH AN IMPLANTABLE OR ATTACHED GARNETTER: NA CREATININE: Creatinine Date Value Ref Range Status 01/15/2025 0.68 0.58 - 0.96 mg/dL Final 12/26/2024 0.63 0.58 - 0.96 mg/dL Final 12/04/2024 0.69 0.58 - 0.96 mg/dL Final Estimated Glomerular Filtration Rate Date Value Ref Range Status 01/15/2025 89 >=60 mL/min/1.73m Final Comment: Estimated Glomerular Filtration Rate (eGFR) is calculated using the 2020 CKD-EPI creatinine equation. This equation utilizes serum creatinine, sex, and age as parameters. The creatinine assay has traceable calibration to isotope dilution-mass spectrometry. Refer to KDIGO guidelines for clinical interpretation. In patients with unstable renal function, e.g. those with acute kidney injury, the eGFR may not accurately reflect actual GFR. eGFR- Date Value Ref Range Status 07/27/2021 >60 Final P.O.C.T. RESULTS: N/A January 28, [address] PERFORMED: No IV SITE: Ambulatory: A peripheral IV was started in the Right antecubital site with a Angio cath: 22 gauge. POST EXAM PIV STATUS: Discontinued PROCEDURE TYPE: NM INJECT: PET/CT BODY SCAN. 9.3 mCi F18 FDG. Administered By: COLLIN . No other medications given.. ADMINISTRATION TIME: 1205 PATIENT DISCHARGED TO: Ambulatory patient, left NM department area. Is this a therapy: No A Diagnostic radioactive procedure has taken place, with no further precautions necessary other than routine body substance precautions. More information regarding radiation safety can be found using this link: [email or web address] [email or web address]%20Nuclear %20Medicine%20Procedures.pdf SIGNATURE: RT Flaco(Pop) PATIENT NAME: Danette Bishop DATE: January 28, 2025 TIME: 12:20 PM PAGER/CONTACT #: documented in this encounter [facility] 01-24-2025 Note [facility] 01-24-2025 History of Present illness Narrative Recording using Infoflow software for draft documentation of the visit was discussed with the patient/authorized outside sales representative; all questions welcomed and answered. Patient/authorized outside sales representative agreed to proceed Assessment & Plan 1. 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 CRP has remained <0.3 since November 28, indicating sustained resolution of infection. Patient discontinued doxycycline one week ago after observing normalized inflammatory markers. - Advised resuming doxycycline for 2 days before and 2 days after planned pain management injection to reduce risk of infection. - Ordered CRP to be drawn at 1, 2, and 3 months. - Follow-up in 3 months to review CRP results and reassess back pain. Subjective The patient is a 79-year-old female with a history of osteomyelitis of T12-L1 due to oxacillin-resistant coagulase-negative staphylococcus, presenting for follow-up. The patient completed 3 doses of dalbavancin and was last seen on November 28, at which time she was prescribed doxycycline for 3 months. Recent labs showed a CRP of less than 0.3 on December 26, December 12, December 04, and November 28, following previous values of 0.3 on October 19, 0.8 on October 03, and 1.8 on September 12. A CBC on December 31 revealed a low hematocrit of 35.6 and a high RDW of 15.1, otherwise normal. A comprehensive metabolic panel on January 15 was normal except for a low sodium of 131 and a low chloride of 97. A CBC on the same day showed a low hematocrit of 34.3. An MRI of the abdomen showed a stable appearance of 2 hepatic lesions with no development of mass or adenopathy in the visualized abdomen. The patient reports persistent lower back pain, not at the biopsy site, but lower, around L4 and L5. She has been advised by her auto painter helper, Dr. Calle, to receive an injection next week and seeks permission for this procedure. She stopped taking doxycycline a week ago, believing her blood work was stable. Additionally, the patient reports sharp, shooting abdominal pain, occurring daily for about 2 months, lasting approximately 2 seconds each time. She suspects it may be related to her abdominal hernia. She denies changes in bowel movements and has a history of GERD. Musculoskeletal: (+) low back pain, (+) hip pain, (-) muscle spasms Gastrointestinal: (+) abdominal pain, (-) change in stool, (-) abdominal tenderness Objective Data: Labs: (01/15) - CMP: normal except for low sodium 131, low chloride 97 - CBC: low hematocrit 34.3 (12/31) - CBC: low hematocrit 35.6, high RDW 15.1, otherwise normal (12/26) - CRP: <0.3 (12/12) - CRP: <0.3 (12/04) - CRP: <0.3 (11/28) - CRP: <0.3 (10/19) - CRP: 0.3 (10/03) - CRP: 0.8 (09/12) - CRP: 1.8 Culture: oxaline-resistant coagulase negative staphylococcus identified Tests: Imaging: MRI abdomen: Stable appearance of 2 hepatic lesions, no new mass or adenopathy in visualized abdomen Vitals: BP 117/66 Pulse 75 Temp (Src) 97.2 (Temporal) Resp 18 Ht 5' 1.05" (1.55m) Wt 146 lb 6.2 oz (66.4kg) SpO2 99% BMI 27.60 kg/(m^2). Exam: General: No acute distress. Abd: No tenderness on palpation. Back: No tenderness on palpation. Active Antimicrobials (From admission, onward) None Current Outpatient Medications: triamcinolone acetonide (KENALOG) 0.1 % cream letrozole (FEMARA) 2.5 mg tablet baclofen 5 mg tablet HYDROcodone-acetaminophen (NORCO) 5-325 mg per tablet amLODIPine (NORVASC) 5 mg tablet FLUoxetine (PROZAC) 40 mg capsule levothyroxine (SYNTHROID) 112 mcg tablet liothyronine (CYTOMEL) 5 mcg tablet lisinopril (ZESTRIL, PRINIVIL) 20 mg tablet esomeprazole (NEXIUM) 40 mg capsule ACETAMINOPHEN (TYLENOL ORAL) zolpidem (AMBIEN) 10 mg tab ALPRAZolam (XANAX) 0.5 mg tablet doxycycline monohydrate 100 mg tablet Medical Decision Making: Problems: Low: Stable chronic illness Data: Unique test result(s) reviewed: 3+ Unique test(s) ordered: 1 Risk: Moderate: Drug management Medical Decision Making Level: 4 - Moderate SIGNATURE: Guerrero Vasquez III, MD PATIENT NAME: Danette Bishop DATE: January 24, 2025 TIME: 11:38 PM PAGER #: [phone] [facility] CELL: [phone] documented in this encounter [facility] 01-23-2025 Instructions Guerrero Vasquez III, MD - 01/23/2025 12:08 PM EDT We discussed your osteomyelitis and recent treatment: - Your CRP levels have remained normal since November 28, indicating no ongoing inflammation. - Your CBC on January 15 showed a low hematocrit of 34.3 and a low sodium level of 131, which has been persistent for you. These findings do not require immediate action but will continue to be monitored. - You completed your course of doxycycline a week ago. Although the literature suggests you do not need to restart it, I recommend taking doxycycline for 2 days before and 2 days after your upcoming injection to provide additional protection. Please resume it as discussed and stop after the 2-day post-procedure period. We discussed your lower back pain: - You are scheduled to receive an injection from pain management next week. This should help alleviate your pain, which may be related to muscle tightness or nerve irritation. - The pain in your lower back and hip may be due to muscle spasms or tightness, which could be contributing to your symptoms. The injection should help address this. We discussed your abdominal pain: - Your recent MRI of the abdomen showed no new findings, and there was no mention of a hernia. - The sharp, shooting abdominal pain you experience daily may be related to muscle spasms or other causes. Since it is not worsening and occurs briefly, we will monitor it for now. If the pain becomes more frequent or severe, please contact me or your surgeon for further evaluation. We discussed follow-up care: - I will order CRP labs to be done at 1, 2, and 3 months from now to monitor for any signs of inflammation. - Please schedule a follow-up appointment with me in 3 months to review your lab results and assess your back pain. If you have any new or worsening symptoms, please contact our office. documented in this encounter [facility] 01-16-2025 Note [facility] 01-16-2025 History of Present illness Narrative Chief Complaint No chief complaint on file. HPI: Danette iBshop is a 79 year old female who presents here today for evaluation for treatment on Tuesday. Per Dr. Centeno's previous note: H/o hypertension, stroke (x2; not on ASA because of h/o bleeding ulcer) and DCIS. Treated for left sided DCIS with lumpectomy and radiation when living in [place] in 2012. Started on tamoxifen but had negative side effects then sounds like she was tried on an aromatase inhibitor but have musculoskeletal side effects and then stopped treatment. Had been getting routine mammography in [place] until 2013. Since has been getting mammogram at [facility]. Most recent was on 12/28/2019. Scattered benign calcifications were observed. There were no dense spiculated masses or suspicious microcalcifications identified. Fairly stable architectural distortion in the left breast with previous surgery. No skin thickening or retraction. Significant change from previous mammogram on 12/05/2018. She developed abdominal pain in July 2020. Initially had an ultrasound on 07/08/2020 that demonstrated a 2.7 x 3.2 x 2.6 cm hypoechoic solid nodule in the right lobe of liver. MRI Liver 08/08/2020: Liver: Multiple solid masses in the right lobe of the liver. Largest of these is seen within the peripheral right lobe of the liver and measures 2.5 x 2.5 cm. Biliary tract: The common bile duct is normal in course and caliber. No filling defect is identified within the common duct. Gallbladder: Unremarkable Pancreatic duct: 7 mm T2 bright lesion involving the pancreatic tail. No dilatation of the pancreatic duct. Spleen: No lesion is identified. Pancreas: The pancreas enhances normally and is without focal lesions. Adrenal glands: No mass is identified Kidneys: Simple appearing cortical cysts involving both kidneys. No hydronephrosis. Possible lesion involving the T6 vertebral body. Postsurgical change involving the left breast. No adenopathy is identified. Imaged lung bases are clear. No pericardial effusion or pericardial thickening. CT of chest, abdomen pelvis revealed no thoracic lymphadenopathy. There was a nonspecific sclerotic density in the vertebral body of T6. Scarring was noted in the left breast. No pulmonary nodules. CT of the abdomen pelvis reveals scattered hepatic masses favoring metastatic disease. There is left lateral abdominal wall hernia containing nondilated descending colon. Biopsy one of the right lobe of the liver lesions performed on 08/21/2020. Pathology: Metastatic adenocarcinoma with prominent mucinous features. Tumor cells were positive for CK7 and GATA3 and negative for CK20, TTF-1 and Napsin a. ER staining showed weak positivity in approximately 10 to 20% of cells. MN was negative with 0% staining. HER-2 was positive at 3+ on immunohistochemistry stain. 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 Her most recent EGD was in 2018. That study was done to evaluate epigastric spasms. It was performed by Dr. Ramhan with the GI group in [place]. Pathology on the biopsy specimen report was not available but patient said her symptoms stopped when she changed from omeprazole to ease omeprazole. She did not have dysphagia. No odynophagia. No heartburn per se. She denied nausea. She has IBS mostly manifested as constipation. She has chronic intermittent left upper quadrant pain that she attributes to gas. No signs of GI bleeding. Patient lost a son to suicide on July 2020. Underwent EGD on 09/01/2020. Esophageal mucosal changes secondary to established short segment Posadas's disease was present in the lower third esophagus. The maximal longitudinal extent of these changes was 6 mm in length. Biopsies were obtained with cold forceps for histology. The entire examined stomach and duodenum were normal. Pathology: Esophagus, distal, biopsy Cardio-oxyntic mucosa with no diagnostic abnormality. - Negative for intestinal metaplasia. Ultrasound left breast on 09/02/2020 identified a 1.7 x 0.9 x 0.6 cm lobulated mass in the left breast at 1:00 anterior depth. It was hypoechoic and correlated with the mammography findings. It was adjacent to the surgical scar. She was referred for and underwent biopsy on 09/09/2020. Pathology: A. Left breast, needle core biopsy: - Invasive ductal carcinoma with mucinous features, provisional histologic grade 2 (see comment). Estrogen Receptor (ER) Positive (40%) Stain intensity: Moderate to strong Progesterone Receptor (PgR) Positive (1-5%) Stain intensity: Weak HER2 (ERBB2) IMMUNOHISTOCHEMISTRY ASSAY Interpretation: POSITIVE for HER2 (ERBB2) Expression Score: 3+ Whole body bone scan 09/04/2020: Whole body bone scan and spot images demonstrate moderately increased uptake at T12-L1, L4-5 and left L5 facet, corresponding to moderate degenerative change of the thoracolumbar spine and postsurgical change of L4-5 interbody fusion and pedicle alla and screws fixation of the left L4-5 on the abdomen and pelvic CT. Specifically, no abnormally increased or decreased uptake is identified in the mid thoracic spine to correspond to 1.4 cm T6 sclerotic lesion on recent chest CT. There is increased uptake involving both shoulders, sternoclavicular joints, left upper cervical spine, hips, knees, and ankles in a pattern most compatible with degenerative/arthritic disease. If clinically indicated, correlation with radiographs could be obtained at clinical discretion. No other areas of abnormal focal, regional or segmental osseous uptake are seen to suggest the presence of osseous metastatic lesions. INDETERMINATE 1.4 CM T6 SCLEROTIC LESION WITHOUT ASSOCIATED ABNORMAL TRACER UPTAKE IDENTIFIED. MRI thoracic spine 10/02/2020: IMPRESSION: T6 sclerotic focus. Given the lack of activity on the recent bone scan, this is most likely not an active metastatic lesion and may reflect a bone island. No evidence of metastatic disease to the thoracic vertebral bodies. Numerous hepatic metastatic lesions have been evaluated with CT recently. Previous therapy: 1) Docetaxel, pertuzumab and trastuzumab. 2) Trastuzumab and Pertuzumab. Current therapy: 1) Trastuzumab (Ontruzant). 2) Letrozole. Began 03/2021. Underwent left-sided simple mastectomy on 06/28/2023. Pathology: Left breast, mastectomy: - Residual invasive ductal carcinoma, Lorraine grade III, measuring 16 mm in greatest dimension (please see synoptic report and comment). 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 - Microcalcifications in invasive carcinoma, DCIS, changes consistent with prior procedure, and au of blood vessels. - Biopsy site changes, biopsy clip (x1), and changes consistent with prior procedure identified. [facility] 07/01/23 Diagnosis Comment Histologic sections of the grossly-identified 16 mm x 16 mm tumor bed demonstrates residual invasive and in-situ carcinoma. Tumor bed dimension #1: 16 mm Tumor bed dimension #2: 16 mm Invasive tumor cellularity: 50% Ductal carcinoma in situ cellularity: 5% SPECIMEN Procedure Total mastectomy Specimen Laterality Left TUMOR Histologic Type Invasive carcinoma of no special type (ductal) Histologic Grade ([place] Histologic Score) Glandular (Acinar) / Tubular Differentiation Score 3 Nuclear Pleomorphism Score 3 Mitotic Rate Score 3 Overall Grade Grade 3 (scores of 8 or 9) Tumor Size Greatest dimension of largest invasive focus (Millimeters): 16 mm Tumor Focality Single focus of invasive carcinoma Ductal Carcinoma In Situ (DCIS) Present Size (Extent) of DCIS Estimated size (extent) of DCIS is at least (Millimeters): 4 mm Architectural Patterns Solid Nuclear Grade Grade III (high) Necrosis Present, central (expansive "comedo" necrosis) Lobular Carcinoma In Situ (LCIS) Not identified Lymphatic and / or Vascular Invasion Not identified Dermal Lymphatic and / or Vascular Invasion Not identified Microcalcifications Present in DCIS Present in invasive carcinoma Present in non-neoplastic tissue Treatment Effect in the Breast Probable or definite response to presurgical therapy in the invasive carcinoma MARGINS Margin Status for Invasive Carcinoma All margins negative for invasive carcinoma Distance from Invasive Carcinoma to Closest Margin Greater than: 2 mm Margin Status for DCIS All margins negative for DCIS Distance from DCIS to Closest Margin Greater than: 2 mm REGIONAL LYMPH NODES Regional Lymph Node Status Not applicable (no regional lymph nodes submitted or found) pTNM CLASSIFICATION (AJCC 8th Edition) Reporting of pT, pN, and (when applicable) pM categories is based on information available to the pathologist at the time the report is issued. As per the AJCC (Chapter 1, 8th Ed.) it is the managing physician s responsibility to establish the final pathologic stage based upon all pertinent information, including but potentially not limited to this pathology report. Modified Classification y pT Category pT1c pN Category pN not assigned (no nodes submitted or found) Breast Biomarker Testing Performed on Previous Biopsy Estrogen Receptor (ER) Status Positive (greater than 10% of cells demonstrate nuclear positivity) Percentage of Cells with Nuclear Positivity 40 % Breast Biomarker Testing Performed on Previous Biopsy Progesterone Receptor (PgR) Status Positive Percentage of Cells with Nuclear Positivity 1-5 % Breast Biomarker Testing Performed on Previous Biopsy HER2 (by immunohistochemistry) Positive (Score 3+) Percentage of Cells with Uniform Intense Complete Membrane Staining 90 % Had an EGD and colonoscopy on 05/23/2024. Biopsies from EGD consistent with chronic gastritis and a fundic gland polyp. Mild chronic inflammation of the GE junction. No evidence of goblet cell metaplasia. On colonoscopy a tubular adenoma was removed from the sigmoid colon. And there are fragments of a tubular adenoma from the cecum. No new concerns today. Appetite:"I would say I still have an appetite. I don't eat as much." Wt. stable. Energy level:"I'm fatigued." Denies fevers. Mouth:denies sores Resp:denies cough or sob Cardiac:denies chest pain/palpitations GI:occ. LLQ abd pain, denies n/v, moving bowels regularly :denies dysuria/hematuria Extrem:chronic back pain, denies new pain Endo:denies hot flashes Neuro:denies symptoms of neuropathy Skin:denies rashes Heme:denies bleeding The ROS is otherwise negative. Past medical history, appointments, medications, allergies reviewed. No changes. EXAM: There were no vitals taken for this visit. APPEARANCE Well appearing, alert, in no acute distress, well-hydrated, well nourished. HEART RRR with normal S1 and S2, no murmurs LUNG clear to auscultation BREAST FEMALE L mastectomy no nodule/skin changes LYMPH NODES No cervical lymphadenopathy, No supraclavicular lymphadenopathy, and No axillary lymphadenopathy. ABDOMEN bowel sounds normoactive, soft, non-tender EXTREMITIES No edema NEURO Awake, alert and oriented x 3, Normal gait, and No involuntary motions. SKIN Skin color, texture, turgor normal, no suspicious rashes or lesions LABS: Latest Ref Rng 12/26/2024 12/31/2024 01/15/2025 WBC 3.70 - 11.00 k/uL 6.66 5.48 7.32 RBC 3.90 - 5.20 m/uL 3.88 (L) 4.13 3.95 Hemoglobin 11.5 - 15.5 g/dL 11.6 12.3 11.7 Hematocrit 36.0 - 46.0 % 34.1 (L) 35.6 (L) 34.3 (L) MCV 80.0 - 100.0 fL 87.9 86.2 86.8 MCH 26.0 - 34.0 pg 29.9 29.8 29.6 MCHC 30.5 - 36.0 g/dL 34.0 34.6 34.1 RDW-CV 11.5 - 15.0 % 15.2 (H) 15.1 (H) 15.3 (H) Platelet Count 150 - 400 k/uL 368 375 338 MPV 9.0 - 12.7 fL 9.6 9.4 9.4 Neut% % 66.7 57.5 66.9 Abs Neut (ANC) 1.45 - 7.50 k/uL 4.45 3.15 4.89 Lymph% % 25.2 30.3 23.8 Abs Lymph 1.00 - 4.00 k/uL 1.68 1.66 1.74 [place]% % 5.9 8.0 6.4 Abs [place] <0.87 k/uL 0.39 0.44 0.47 Eosin% % 0.9 2.7 1.6 Abs Eosin <0.46 k/uL 0.06 0.15 0.12 Baso% % 1.1 1.3 1.2 Abs Baso <0.11 k/uL 0.07 0.07 0.09 Immature Gran % % 0.2 0.2 0.1 IMMATURE GRANS (ABS) <0.10 k/uL <0.03 <0.03 <0.03 NRBC /100 WBC 0.0 0.0 0.0 Absolute nRBC <0.01 k/uL <0.01 <0.01 <0.01 DTYPE Auto Auto Auto Latest Ref Rng 12/04/2024 12/26/2024 01/15/2025 Protein, Total 6.3 - 8.0 g/dL 6.7 6.9 6.8 Albumin 3.9 - 4.9 g/dL 4.3 4.4 4.3 Calcium 8.5 - 10.2 mg/dL 9.4 9.3 9.2 Bilirubin, Total 0.2 - 1.3 mg/dL 0.6 0.5 0.5 Alkaline Phosphatase 34 - 123 U/L 77 76 75 AST 13 - 35 U/L 14 15 12 (L) ALT 7 - 38 U/L 15 12 12 Glucose 74 - 99 mg/dL 97 100 (H) 94 BUN 7 - 21 mg/dL 15 12 17 Creatinine 0.58 - 0.96 mg/dL 0.69 0.63 0.68 Sodium 136 - 144 mmol/L 131 (L) 133 (L) 131 (L) Potassium 3.7 - 5.1 mmol/L 4.2 4.2 4.2 Chloride 98 - 107 mmol/L 97 (L) 99 97 (L) CO2 22 - 30 mmol/L 22 20 (L) 23 Anion Gap 8 - 15 mmol/L 12 14 11 eGFR >=60 mL/min/1.73m 88 90 89 ASSESSMENT/PLAN: 1. HER2-positive carcinoma of left breast (HCC) - ICD9: 174.9, ICD10: C50.912, Z17.[address] Centeno's previous note: Assessment: -The patient is a 78-year-old female with a past medical history significant for DCIS of the left breast who was found to have metastatic adenocarcinoma (liver) consistent with breast primary after presenting with epigastric pain. -KPS is 100%. -s/p left simple mastectomy. -No symptoms, exam or echocardiographic findings of cardiomyopathy. -Will discuss every 3 month Zometa--needs to get over infection.. -Continues to tolerate trastuzumab well. Recent echocardiogram in this month showed no evidence of left ventricular dysfunction. We discussed that it would not interfere with her current treatment for discitis. -We discussed continuing treatment. In regard to imaging, we will hold off on PET scan for the time being since likely to get a false positive because of the discitis. Could repeat MRI of the liver and get PET scan in about 2 months. Plan: -Due for echocardiogram in April. -Continue letrozole. -Continue trastuzumab. -Monitor CBC & CMP every 3 weeks & OV every 6 weeks. -Repeat MRI and PET scan in a couple months. - Follow-up with ID. - Overall tolerating treatment well. - Tolerating femara well. - Reviewed labs with pt. - Continue current medications. - Continue femara. Rx sent. - ECHO due in Apr. - PET as scheduled. - Proceed as scheduled on Tuesday for ontruzant. - Follow up as scheduled. - Pt. aware to call office with any questions/concerns. The patient indicates understanding of these issues and agrees with the plan. All documentation from previous visit of 12/05/24-Dr. Centeno/myself was copied and pasted, documentation has been reviewed and edited as necessary for today's visit. Domenic Kelley APRN.BEA documented in this encounter [facility] 01-15-2025 History of Present illness Narrative Radiology Service Progress Note PATIENT NAME: Danette Bishop DATE OF SERVICE: January 15, 2025 TIME: 12:27 PM PATIENT IDENTITY VERIFICATION COMPLETED USING TWO (2) IDENTIFIERS: Name and Date of confirmed by patient verbally. FALL SCREENING: Has the patient had 2 falls in the last year or 1 fall with injury or currently using an Ambulatory Assistive Device (Walker, Cane, Wheelchair, Crutches, etc.)? No PATIENT GENDER DATA: Assigned female at . status: : No status: NO. PATIENT RELEVANT IMPLANT DATA REVIEWED: Yes PATIENT PRESENTS WITH AN IMPLANTABLE OR ATTACHED GARNETTER: No RADIOLOGY DEPARTMENT: MR; Exam(s) Completed: Body: Liver (routine). Aromatherapy Administered: No PERIPHERAL IV DATA: Site assessment: Clean,Dry and Intact, Site disposition Discontinued SIGNED BY: Eveline Gaitan RT(R) January 15, 2025 12:27 PM documented in this encounter [facility] 01-15-2025 Note [facility] 01-15-2025 Radiology Diagnostic study note [facility] Imaging Services [address] [place], [place] [address] Pelvic (Non ) MR#: [id number] Acct: [id number] Name: DANETTE BISHOP Rep #: [id number] : 1945 F 79 From: Jeri Vides MD PCP: Dr. Eveline Argueta DO Status: REG CLI Study:Pelvic (Non ) Date of Exam: 01/11/25 Exam# [id number] Ordering Dr: Lorenzo Argueta sa, DO EXAM: US Pelvis Transabdominal, Complete CLINICAL INDICATION: LLQ PAIN TECHNIQUE: Real-time complete transabdominal pelvic ultrasound with image documentation. COMPARISON: No relevant prior studies available. FINDINGS: UTERUS/CERVIX: Endometrium not visualized secondary to patient body habitus. The uterus measures 6.0 x 2.8 x 1.7 cm. RIGHT OVARY: Right ovary not visualized secondary to bowel gas. LEFT OVARY: Left ovary not visualized secondary to bowel gas. FREE FLUID: No free fluid. BLADDER: Unremarkable as visualized. Wall is normal thickness for degree of distention. US/Pelvic (Non ) IMPRESSION: No acute findings in the pelvis. Reading Location: [facility] CC: Dr. Eveline Argueta DO ~ Home Care Liaison: Signed [facility] 01-07-2025 Telephone encounter Note Spoke with patient and scheduled as requested Sara Velasco [facility] 01-07-2025 Miscellaneous Notes Spoke with patient and scheduled as requested Sara Velasco Agree. Imaging due. Thank you. Orders signed. Christiano Centeno DO Per Dr. Centeno OV notes from 10/24: -Repeat MRI and PET scan in a couple months. Last PET was 07/11/24. MRI abdomen 2/3. Ordered pended. Please sign/review if appropriate to order. Thank you. Ramila Bolaños RN documented in this encounter [facility] 01-04-2025 Telephone encounter Note Agree. Imaging due. Thank you. Orders signed. Christiano Centeno DO [facility] 01-04-2025 Telephone encounter Note Per Dr. Centeno OV notes from 10/24: -Repeat MRI and PET scan in a couple months. Last PET was 07/11/24. MRI abdomen 07/09. Ordered pended. Please sign/review if appropriate to order. Thank you. Ramila Bolaños RN [facility] 01-01-2025 Telephone encounter Note Spoke with main. They normally don't do virtual for initial visit. [employer] Administrator received permission for Deepika to have VV. She scheduled patient for 01/23. Spoke with patient, she has another appointment that day and will call to reschedule. [facility] Work Phone: 01-01-2025 Miscellaneous Notes Spoke with main. They normally don't do virtual for initial visit. [employer] Administrator received permission for Deepika to have VV. She scheduled patient for 01/23. Spoke with patient, she has another appointment that day and will call to reschedule. PSS- Dr. Centeno filed the consult order to breast psychology. Please call them and see if they'll do virtual visits so the patient doesn't have to travel. [phone] Amy Grace LPN Call to patient, she is aware that there is not any time available to move appointment on 01/16/25 but she would really like to see him. She is also aware that to see a breast phycologist, she would need to travel out of [place], most likely [facility] and she really wants someone in [place]. She has also checked with [facility] and they do not have anyone either. Laura Galindo RN Please advise on office visit for 01/16. Schedule full. Appointment notes state no appointments. Patient is requesting that next OV (01/16/25) be with Dr. Centeno. She would also like a referral to see a psychiatrist or counselor. She states she attempted to go through palliative care; a referral to [facility] was faxed on 11/23, however states they don't have anyone available right now to help her". documented in this encounter [facility] 01-01-2025 Telephone encounter Note PSS- Dr. Centeno filed the consult order to breast psychology. Please call them and see if they'll do virtual visits so the patient doesn't have to travel. [phone] Amy Grace LPN [facility] 12-31-2024 Telephone encounter Note Call to patient, she is aware that there is not any time available to move appointment on 01/16/25 but she would really like to see him. She is also aware that to see a breast phycologist, she would need to travel out of [place], most likely [place] and she really wants someone in [place]. She has also checked with [facility] and they do not have anyone either. Laura Galindo RN [facility] Work Phone: 12-28-2024 Telephone encounter Note Please advise on office visit for 01/16. Schedule full. Appointment notes state no appointments. [facility] 12-28-2024 Note HNO ID: [id number] Author: SANDRA GOODMAN RN Service: ? Author Type: Registered Nurse Type: Progress Notes Filed: 12/28/2024 12:25 Note Text: Per patient request, Anatoly infused over 60 minutes. [facility] 12-28-2024 History of Present illness Narrative Per patient request, Kanjinti infused over 60 minutes. documented in this encounter [facility] 12-28-2024 Telephone encounter Note Patient is requesting that next OV (01/16/25) be with Dr. Centeno. She would also like a referral to see a psychiatrist or counselor. She states she attempted to go through palliative care; a referral to [facility] was faxed on 11/23, however states they don't have anyone available right now to help her". [facility] 12-06-2024 Telephone encounter Note IZZY pt wanted to make you aware she has been diagnosed with osteoporosis. Will be following up with her PCP. [facility] 12-06-2024 Miscellaneous Notes IZZY pt wanted to make you aware she has been diagnosed with osteoporosis. Will be following up with her PCP. documented in this encounter [facility] 12-05-2024 Note [facility] 12-05-2024 History of Present illness Narrative Chief Complaint Patient presents with: Established Patient HPI: Danette Bishop is a 79 year old female who presents here today for evaluation for treatment tomorrow. Per Dr. Centeno's previous note: H/o hypertension, stroke (x2; not on ASA because of h/o bleeding ulcer) and DCIS. Treated for left sided DCIS with lumpectomy and radiation when living in [place] in 2012. Started on tamoxifen but had negative side effects then sounds like she was tried on an aromatase inhibitor but have musculoskeletal side effects and then stopped treatment. Had been getting routine mammography in [place] until 2013. Since has been getting mammogram at [facility]. Most recent was on 12/28/2019. Scattered benign calcifications were observed. There were no dense spiculated masses or suspicious microcalcifications identified. Fairly stable architectural distortion in the left breast with previous surgery. No skin thickening or retraction. Significant change from previous mammogram on 12/05/2018. She developed abdominal pain in July 2020. Initially had an ultrasound on 07/08/2020 that demonstrated a 2.7 x 3.2 x 2.6 cm hypoechoic solid nodule in the right lobe of liver. MRI Liver 08/08/2020: Liver: Multiple solid masses in the right lobe of the liver. Largest of these is seen within the peripheral right lobe of the liver and measures 2.5 x 2.5 cm. Biliary tract: The common bile duct is normal in course and caliber. No filling defect is identified within the common duct. Gallbladder: Unremarkable Pancreatic duct: 7 mm T2 bright lesion involving the pancreatic tail. No dilatation of the pancreatic duct. Spleen: No lesion is identified. Pancreas: The pancreas enhances normally and is without focal lesions. Adrenal glands: No mass is identified Kidneys: Simple appearing cortical cysts involving both kidneys. No hydronephrosis. Possible lesion involving the T6 vertebral body. Postsurgical change involving the left breast. No adenopathy is identified. Imaged lung bases are clear. No pericardial effusion or pericardial thickening. CT of chest, abdomen pelvis revealed no thoracic lymphadenopathy. There was a nonspecific sclerotic density in the vertebral body of T6. Scarring was noted in the left breast. No pulmonary nodules. CT of the abdomen pelvis reveals scattered hepatic masses favoring metastatic disease. There is left lateral abdominal wall hernia containing nondilated descending colon. Biopsy one of the right lobe of the liver lesions performed on 08/21/2020. Pathology: Metastatic adenocarcinoma with prominent mucinous features. Tumor cells were positive for CK7 and GATA3 and negative for CK20, TTF-1 and Napsin a. ER staining showed weak positivity in approximately 10 to 20% of cells. MN was negative with 0% staining. HER-2 was positive at 3+ on immunohistochemistry stain. She has a history of Posadas's esophagus which was initially diagnosed in 2009. Her most recent EGD was in 2019. That study was done to evaluate epigastric spasms. It was performed by Dr. Rahman with the GI group in [place]. Pathology on the biopsy specimen report was not available but patient said her symptoms stopped when she changed from omeprazole to ease omeprazole. She did not have dysphagia. No odynophagia. No heartburn per se. She denied nausea. She has IBS mostly manifested as constipation. She has chronic intermittent left upper quadrant pain that she attributes to gas. No signs of GI bleeding. Patient lost a son to suicide on July 2020. Underwent EGD on 09/01/2020. Esophageal mucosal changes secondary to established short segment Posadas's disease was present in the lower third esophagus. The maximal longitudinal extent of these changes was 6 mm in length. Biopsies were obtained with cold forceps for histology. The entire examined stomach and duodenum were normal. Pathology: Esophagus, distal, biopsy Cardio-oxyntic mucosa with no diagnostic abnormality. - Negative for intestinal metaplasia. Ultrasound left breast on 09/02/2020 identified a 1.7 x 0.9 x 0.6 cm lobulated mass in the left breast at 1:00 anterior depth. It was hypoechoic and correlated with the mammography findings. It was adjacent to the surgical scar. She was referred for and underwent biopsy on 09/09/2020. Pathology: A. Left breast, needle core biopsy: - Invasive ductal carcinoma with mucinous features, provisional histologic grade 2 (see comment). Estrogen Receptor (ER) Positive (40%) Stain intensity: Moderate to strong Progesterone Receptor (PgR) Positive (1-5%) Stain intensity: Weak HER2 (ERBB2) IMMUNOHISTOCHEMISTRY ASSAY Interpretation: POSITIVE for HER2 (ERBB2) Expression Score: 3+ Whole body bone scan 09/04/2020: Whole body bone scan and spot images demonstrate moderately increased uptake at T12-L1, L4-5 and left L5 facet, corresponding to moderate degenerative change of the thoracolumbar spine and postsurgical change of L4-5 interbody fusion and pedicle alla and screws fixation of the left L4-5 on the abdomen and pelvic CT. Specifically, no abnormally increased or decreased uptake is identified in the mid thoracic spine to correspond to 1.4 cm T6 sclerotic lesion on recent chest CT. There is increased uptake involving both shoulders, sternoclavicular joints, left upper cervical spine, hips, knees, and ankles in a pattern most compatible with degenerative/arthritic disease. If clinically indicated, correlation with radiographs could be obtained at clinical discretion. No other areas of abnormal focal, regional or segmental osseous uptake are seen to suggest the presence of osseous metastatic lesions. INDETERMINATE 1.4 CM T6 SCLEROTIC LESION WITHOUT ASSOCIATED ABNORMAL TRACER UPTAKE IDENTIFIED. MRI thoracic spine 10/02/2020: IMPRESSION: T6 sclerotic focus. Given the lack of activity on the recent bone scan, this is most likely not an active metastatic lesion and may reflect a bone island. No evidence of metastatic disease to the thoracic vertebral bodies. Numerous hepatic metastatic lesions have been evaluated with CT recently. Previous therapy: 1) Docetaxel, pertuzumab and trastuzumab. 2) Trastuzumab and Pertuzumab. Current therapy: 1) Trastuzumab (Ontruzant). 2) Letrozole. Began 03/2021. Underwent left-sided simple mastectomy on 06/28/2023. Pathology: Left breast, mastectomy: - Residual invasive ductal carcinoma, Lorraine grade III, measuring 16 mm in greatest dimension (please see synoptic report and comment). 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 - Microcalcifications in invasive carcinoma, DCIS, changes consistent with prior procedure, and au of blood vessels. - Biopsy site changes, biopsy clip (x1), and changes consistent with prior procedure identified. [facility] 07/01/23 Diagnosis Comment Histologic sections of the grossly-identified 16 mm x 16 mm tumor bed demonstrates residual invasive and in-situ carcinoma. Tumor bed dimension #1: 16 mm Tumor bed dimension #2: 16 mm Invasive tumor cellularity: 50% Ductal carcinoma in situ cellularity: 5% SPECIMEN Procedure Total mastectomy Specimen Laterality Left TUMOR Histologic Type Invasive carcinoma of no special type (ductal) Histologic Grade (Lorraine Histologic Score) Glandular (Acinar) / Tubular Differentiation Score 3 Nuclear Pleomorphism Score 3 Mitotic Rate Score 3 Overall Grade Grade 3 (scores of 8 or 9) Tumor Size Greatest dimension of largest invasive focus (Millimeters): 16 mm Tumor Focality Single focus of invasive carcinoma Ductal Carcinoma In Situ (DCIS) Present Size (Extent) of DCIS Estimated size (extent) of DCIS is at least (Millimeters): 4 mm Architectural Patterns Solid Nuclear Grade Grade III (high) Necrosis Present, central (expansive "comedo" necrosis) Lobular Carcinoma In Situ (LCIS) Not identified Lymphatic and / or Vascular Invasion Not identified Dermal Lymphatic and / or Vascular Invasion Not identified Microcalcifications Present in DCIS Present in invasive carcinoma Present in non-neoplastic tissue Treatment Effect in the Breast Probable or definite response to presurgical therapy in the invasive carcinoma MARGINS Margin Status for Invasive Carcinoma All margins negative for invasive carcinoma Distance from Invasive Carcinoma to Closest Margin Greater than: 2 mm Margin Status for DCIS All margins negative for DCIS Distance from DCIS to Closest Margin Greater than: 2 mm REGIONAL LYMPH NODES Regional Lymph Node Status Not applicable (no regional lymph nodes submitted or found) pTNM CLASSIFICATION (AJCC 8th Edition) Reporting of pT, pN, and (when applicable) pM categories is based on information available to the pathologist at the time the report is issued. As per the AJCC (Chapter 1, 8th Ed.) it is the managing physician s responsibility to establish the final pathologic stage based upon all pertinent information, including but potentially not limited to this pathology report. Modified Classification y pT Category pT1c pN Category pN not assigned (no nodes submitted or found) Breast Biomarker Testing Performed on Previous Biopsy Estrogen Receptor (ER) Status Positive (greater than 10% of cells demonstrate nuclear positivity) Percentage of Cells with Nuclear Positivity 40 % Breast Biomarker Testing Performed on Previous Biopsy Progesterone Receptor (PgR) Status Positive Percentage of Cells with Nuclear Positivity 1-5 % Breast Biomarker Testing Performed on Previous Biopsy HER2 (by immunohistochemistry) Positive (Score 3+) Percentage of Cells with Uniform Intense Complete Membrane Staining 90 % Had an EGD and colonoscopy on 05/23/2024. Biopsies from EGD consistent with chronic gastritis and a fundic gland polyp. Mild chronic inflammation of the GE junction. No evidence of goblet cell metaplasia. On colonoscopy a tubular adenoma was removed from the sigmoid colon. And there are fragments of a tubular adenoma from the cecum. [facility]-she is on cipro. Appetite:"I would say I still have an appetite. I don't eat as much." Wt. stable. Energy level:"Very little." Denies fevers. Mouth:denies sores Resp:denies cough or sob Cardiac:denies chest pain/palpitations GI:denies abd pain, n/v, moving bowels regularly :+UTI dx Tuesday-on Cipro-awaiting culture from [facility] Extrem:chronic back pain, denies new pain Endo:denies hot flashes Neuro:denies symptoms of neuropathy Skin:denies rashes Heme:denies bleeding The ROS is otherwise negative. Past medical history, appointments, medications, allergies reviewed. No changes. EXAM: BP 106/69 Pulse 75 Temp 36.5 C (97.7 F) (Temporal) Wt 67.8 kg (149 lb 7.6 oz) SpO2 98% BMI 28.24 kg/m APPEARANCE Well appearing, alert, in no acute distress, well-hydrated, well nourished. HEART RRR with normal S1 and S2, no murmurs LUNG clear to auscultation LYMPH NODES No cervical lymphadenopathy, No supraclavicular lymphadenopathy, and No axillary lymphadenopathy. ABDOMEN bowel sounds normoactive, soft, non-tender EXTREMITIES No edema NEURO Awake, alert and oriented x 3, Normal gait, and No involuntary motions. SKIN Skin color, texture, turgor normal, no suspicious rashes or lesions LABS: Latest Ref Rng 11/14/2024 11/28/2024 12/04/2024 WBC 3.70 - 11.00 k/uL 7.09 10.98 5.94 RBC 3.90 - 5.20 m/uL 3.83 (L) 4.09 3.79 (L) Hemoglobin 11.5 - 15.5 g/dL 11.4 (L) 12.0 11.2 (L) Hematocrit 36.0 - 46.0 % 34.1 (L) 37.2 33.4 (L) MCV 80.0 - 100.0 fL 89.0 91.0 88.1 MCH 26.0 - 34.0 pg 29.8 29.3 29.6 MCHC 30.5 - 36.0 g/dL 33.4 32.3 33.5 RDW-CV 11.5 - 15.0 % 16.0 (H) 15.7 (H) 15.2 (H) Platelet Count 150 - 400 k/uL 391 426 (H) 394 MPV 9.0 - 12.7 fL 9.1 9.8 9.3 Neut% % 74.6 82.5 65.2 Abs Neut (ANC) 1.45 - 7.50 k/uL 5.29 9.04 (H) 3.87 Lymph% % 17.5 10.9 23.9 Abs Lymph 1.00 - 4.00 k/uL 1.24 1.20 1.42 [place]% % 5.6 4.7 8.6 Abs [place] <0.87 k/uL 0.40 0.52 0.51 Eosin% % 0.7 0.7 0.7 Abs Eosin <0.46 k/uL 0.05 0.08 0.04 Baso% % 1.3 0.7 1.3 Abs Baso <0.11 k/uL 0.09 0.08 0.08 Immature Gran % % 0.3 0.5 0.3 IMMATURE GRANS (ABS) <0.10 k/uL <0.03 0.06 <0.03 NRBC /100 WBC 0.0 0.0 0.0 Absolute nRBC <0.01 k/uL <0.01 <0.01 <0.01 DTYPE Auto Auto Auto Latest Ref Rng 10/23/2024 11/14/2024 12/04/2024 Protein, Total 6.3 - 8.0 g/dL 6.6 6.5 6.7 Albumin 3.9 - 4.9 g/dL 4.0 4.0 4.3 Calcium 8.5 - 10.2 mg/dL 9.0 8.7 9.4 Bilirubin, Total 0.2 - 1.3 mg/dL 0.5 0.6 0.6 Alkaline Phosphatase 34 - 123 U/L 81 79 77 AST 13 - 35 U/L 11 (L) 16 14 ALT 7 - 38 U/L 14 16 15 Glucose 74 - 99 mg/dL 100 (H) 110 (H) 97 BUN 7 - 21 mg/dL 12 13 15 Creatinine 0.58 - 0.96 mg/dL 0.60 0.64 0.69 Sodium 136 - 144 mmol/L 134 (L) 133 (L) 131 (L) Potassium 3.7 - 5.1 mmol/L 4.0 4.1 4.2 Chloride 98 - 107 mmol/L 100 99 97 (L) CO2 22 - 30 mmol/L 20 (L) 20 (L) 22 Anion Gap 8 - 15 mmol/L 14 14 12 eGFR >=60 mL/min/1.73m 91 90 88 Latest Ref Rng 11/28/2024 12/04/2024 CRP <0.9 mg/dL <0.3 <0.3 ASSESSMENT/PLAN: 1. HER2-positive carcinoma of left breast (HCC) - ICD9: 174.9, ICD10: C50.912, Z17.[address] Centeno's previous note: Assessment: -The patient is a 78-year-old female with a past medical history significant for DCIS of the left breast who was found to have metastatic adenocarcinoma (liver) consistent with breast primary after presenting with epigastric pain. -KPS is 100%. -s/p left simple mastectomy. -No symptoms, exam or echocardiographic findings of cardiomyopathy. -Will discuss every 3 month Zometa--needs to get over infection.. -Continues to tolerate trastuzumab well. Recent echocardiogram in this month showed no evidence of left ventricular dysfunction. We discussed that it would not interfere with her current treatment for discitis. -We discussed continuing treatment. In regard to imaging, we will hold off on PET scan for the time being since likely to get a false positive because of the discitis. Could repeat MRI of the liver and get PET scan in about 2 months. Plan: -Due for echocardiogram in April. -Continue letrozole. -Continue trastuzumab. -Monitor CBC & CMP every 3 weeks & OV every 6 weeks. -Repeat MRI and PET scan in a couple months. - Follow-up with ID. - Overall tolerating femara and ontruzant well. - Reviewed labs with pt. and spouse. - Continue current medications. - ECHO due in Apr. - Imaging in a couple months. - Continue femara. - Continue follow up with PCP/ID/Pall med. - Proceed as scheduled tomorrow for ontruzant. - Follow up as scheduled. - Pt. aware to call office with any questions/concerns. The patient indicates understanding of these issues and agrees with the plan. All documentation from previous visit of 10/24/24-Dr. Centeno was copied and pasted, documentation has been reviewed and edited as necessary for today's visit. Domenic Kelley APRN.BEA documented in this encounter [facility] 12-01-2024 Evaluation note Diagnosis Onset Date Resolution Dysuria acute December 01 8:49am 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 To ensure the infection is fully resolved, I am prescribing Doxycycline for 3 months. Please take this medication as directed and avoid taking it within 2 hours of any vitamins or supplements, as this can reduce its effectiveness. This prescription has been sent to your preferred [facility] pharmacy in [place]. - Your current pain appears to be related to muscle spasms in the iliopsoas muscle, which connects the spine to the hips. This is likely causing the tightness and discomfort in your hips and lower back. - I recommend starting outpatient physical therapy to address the muscle spasms and improve strength and flexibility. I will contact your primary care doctor, Dr. Argueta, to coordinate this referral. - You may also benefit from massage therapy to help release the muscle tension. I will check with Dr. Cárdenas to ensure this is safe given your history of a wobbly disc. - I am prescribing Tizanidine (a muscle relaxant) to help with the spasms. This has been sent to your pharmacy. Please take it as directed. If it does not help, we can try a different medication. We discussed your recent symptoms and concerns: - You reported occasional chills, but these do not appear to be related to an infection. Please monitor for any new or worsening symptoms, such as fever, severe chills, or increased pain, and let me know if they occur. - You mentioned discomfort from your previous seroma surgery. This pain seems to radiate under yourrib cage. If this worsens or changes, please let me know. We discussed follow-up care: - Blood work was ordered today to check your inflammatory markers. We will repeat these labs in 2 weeks and again in 1 month to monitor your progress. - I will follow up with Dr. Cárdenas to discuss your spine and ensure no additional imaging, such as an MRI, is needed at this time. - I recommend scheduling a follow-up appointment with me in 1 to 1.5 months to reassess your symptoms and progress. Additional instructions: - Continue to avoid standing for prolonged periods if it worsens your pain. Use supportive seating when possible. - Consider using your massage therapy gift certificate once we confirm it is safe to proceed. - Maintain a balanced diet, as multivitamins are not necessary unless specifically recommended. Please reach out if you have any new or worsening symptoms or additional questions. documented in [facility] encounter[facility] History of Present illness Narrative* Guerrero Vasquez III, MD - 11/28/2024 8:22 AM EDT Recording using Inf[employer] software for draft documentation of the visit was discussed with the patient/authorized outside sales representative; all questions welcomed and answered. Patient/authorized outside sales representative agreed to proceed Assessment & Plan 1. 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 Patient has completed three doses of Dalbavancin, with the last dose administered on November 19. Inflammatory markers have shown improvement, with CRP levels decreasing from 1.8 mg/dL on September 12 to 0.3 mg/dL on October 19. No fevers or chills reported recently. - Initiate doxycycline therapy for 3 months to ensure complete resolution of infection. - Ordered blood work today to monitor inflammatory markers; repeat labs in 2 weeks and then monthly. - Follow-up appointment scheduled in 4-6 weeks to reassess condition. 2. 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 Previous treatments with baclofen and Flexeril were ineffective. Pain exacerbated by standing and relieved by reclining. No new MRI or imaging studies planned at this time. - Prescribed tizanidine for muscle relaxation. - Referral to outpatient physical therapy for targeted exercises and stretching if ok with primary - Consult with Dr. Cárdenas to discuss potential benefits of massage therapy. Subjective The patient is a 79-year-old female with a history of vertebral osteomyelitis at T12-L1 due to oxacillin-resistant coagulase-negative Staphylococcus, presenting with persistent back pain and new hip pain. She is accompanied by her , who is providing additional history. The patient was last seen on 10/24/2024, at which time she was started on dalbavancin. She has since received three doses, w ith the last dose administered on 11/19/2024. Prior to starting dalbavancin, her CRP levels were 1.8mg/L on 09/12/2024, but decreased to 0.8 mg/L on 10/03/2024 and 0.3 mg/L on 10/19/2024. She reports persistent back pain described as a "tightness" and "achy" sensation, which is exacerbated by standing and relieved by sitting with back support. The pain is now primarily located in the hip bones and is described as a shooting pain that radiates to the hips when pressure is applied to the lower back. She notes that the pain is different from the initial severe back spasms she experienced at the onset of her condition, which she describes as the worst pain she has ever had. These spasms were so severe that she was unable to move her head or body. She is now afraid to travel or engage in activities due to fear of experiencing similar spasms again. She also reports discomfort from a second seroma surgery after a mastectomy, with pain radiating tothe left side of her chest and underneath her rib cage. She denies any issues with her port and is tolerating trastuzumab well. She denies fevers, but reports experiencing chills last night, which she attributes to her air conditioner. She also reports low energy levels, but is still able to walk her dog when possible. She has been sleeping in a recliner most of the time due to discomfort. She has been taking hydrocodone and baclofen for pain management, but reports that baclofen has notbeen effective. She was previously on cyclobenzaprine, which was also ineffective. She is trying towean off these medications and has been using Tylenol, which she reports is not very effective. Jb also tried physical therapy at home, but did not find it helpful. She reports that her spine doctor, Dr. Rosales at [place], performed an x-ray a week after she was discharged from [facility], which showed a "wobbly disc." She is currently working with a pain management doctor, Dr. Calle, and has received an injection that was not effective. She is interested in outpatient physical sciences instructor apy and massage therapy. Constitutional: (+) chills- occurred with air conditioning yesterday. Not associated with rigors, (+) fatigue Musculoskeletal: (+) back pain, (+) hip pain, (+) left chest wall pain Psychiatric: (+) anxiety Objective Data: Labs: (10/19/2024) CRP: 0.3 (10/03/2024) CRP: 0.8 (normal) (09/12/2024) CRP: 1.8 Imaging: X-ray: Wobbly disc at L4-L5 Micro: 5/7 body fluid- S. epidermidis Imaging: No new imaging Vitals: BP 126/58 Pulse 76 Temp (Src) 97.3 (Temporal) Resp 16 Ht 5' 1" (1.55m) Wt 148 lb 9.4 oz (67.4kg) SpO2 98% BMI 28.09 kg/(m^2). Exam: General: No acute distress. Back: Tenderness to palpation over paraspinal muscles and in flanks- I think tenderness is really in bilateral iliopsoas. muscle spasms noted bilaterally. No tenderness of bony prominences of the spine. MSK/Ext: Tenderness to palpation over hips. Skin: No abnormalities noted on chest. Active Antimicrobials (From admission, onward) None Current Outpatient Medications: amLODIPine (NORVASC) 5 mg tablet letrozole (FEMARA) 2.5 mg tablet FLUoxetine (PROZAC) 40 mg capsule levothyroxine (SYNTHROID) 112 mcg tablet liothyronine (CYTOMEL) 5 mcg tablet lisinopril (ZESTRIL, PRINIVIL) 20 mg tablet esomeprazole (NEXIUM) 40 mg capsule ACETAMINOPHEN (TYLENOL ORAL) zolpidem (AMBIEN) 10 mg tab ALPRAZolam (XANAX) 0.5 mg tablet doxycycline monohydrate 100 mg tablet tiZANidine (ZANAFLEX) 2 mg tablet HYDROcodone-acetaminophen (NORCO) 5-325 mg per tablet multivit-min/ferrous fumarate (MULTI VITAMIN ORAL) I spent a total of 45 minutes on the date of the service which included preparing to see the patient, znic-so-dees patient care, completing clinical documentation, performing a medically appropriate examination, counseling and educating the patient/family/caregiver, ordering medications, tests, or p rocedures, communicating with other HCPs (not separately reported), and communicating results to the patient/family/caregiver. SIGNATURE: Guerrero Vasquez III, MD PATIENT NAME: Daentte Bishop DATE: November 28, 2024 TIME: 9:29 AM PAGER #: [phone] [facility] CELL: [phone] .ais documented in this encounter[facility]06-[facility] Telephone encounter Note * Telephone Encounter - Dayan Galindo RN - 11/23/2024 2:21 PM EDT Referral, last H&P, face sheet [facility] to [facility]. Laura Galindo RN [facility]06-20-[facility] Miscellaneous Notes* Telephone Encounter - Dayan Galindo RN - 11/23/2024 2:21 PM EDT Referral, last H&P, face sheet faxed to [facility]. Laura Galindo RN * Telephone Encounter - Christiano Centeno DO - 11/21/2024 4:17 PM EDT Okay, just wanted to clarify. Christiano Centeno DO * Telephone Encounter - Dayan Galindo RN - 11/21/2024 3:12 PM EDT Call to patient, she states she is asking for palliative care "to get in the system" and yes b/c ofthe pain/issues with her back. She had her 3rd planned IV antibiotic yesterday. She follow with Dr. Vasquez, ROYER at [place]. She is also being follow by Dr. Rosales, ortho surgeon. She is not sure what the next steps are. She is having constant pain in her back, she is unable to stand for any length of period, she feelsbest when she is in her recliner and that is where she sleeps also. She does take Tchula for pain and states it helps. Without Tchula, the pain is about 5/10, with Norcoand resting in recliner, it is down to 1/10. She also takes Tylenol in bw Tchula but doesn't think that it really does that much. She is agreeable to referral to [facility]. She is aware that I will update Dr. Centeno and will call her back. Laura Galindo, RN * Telephone Encounter - Christiano Centeno DO - 11/20/2024 8:44 PM EDT She's not symptomatic from the cancer. Is this for her back pain? Christiano Centeno DO * Telephone Encounter - Stefania Felix LISW - 11/20/2024 9:07 AM EDT SOCIAL WORK FOLLOW UP NOTE: [facility] Date of service: November 19, 2024 Danette Bishop is being seen for a follow up social work visit. Today's visit includes: patient TOPICS ADDRESSED: Pt came to speak to SW this date. Pt reports she believes she is ready for a referral to Palliative medicine but does not prefer palliative medicine referral within the clinic. Pt would like a phone call to discuss services and where to send referral. Thank you. PLAN: Continue follow up as needed F/U APPOINTMENT: PRN Assigned MELISSA listed in Care Team tab: Yes FANNY Banks documented in this encounterFort [facility] Hospital06-18-[facility]25 Telephone encounter Note * Telephone Encounter - Christiano Centeno DO - 11/21/2024 4:17 PM EDT Okay, just wanted to clarify. Christiano Centeno DO [facility]06-[facility] Telephone encounter Note* Telephone Encounter - Dayan Galindo, CRISTINA - 11/21/2024 3:12 PM EDT Call to patient, she states she is asking for palliative care "to get in the system" and yes b/c ofthe pain/issues with her back. She had her 3rd planned IV antibiotic yesterday. She follow with Dr. Vasquez, ROYER at [place]. She is also being follow by Dr. Rosales, ortho surgeon. She is not sure what the next steps are. She is having constant pain in her back, she is unable to stand for any length of period, she feelsbest when she is in her recliner and that is where she sleeps also. She does take Tchula for pain and states it helps. Without Tchula, the pain is about 5/10, with Norcoand resting in recliner, it is down to 1/10. She also takes Tylenol in bw Tchula but doesn't think that it really does that much. She is agreeable to referral to [facility]. She is aware that I will update Dr. Centeno and will call her back. Laura Galindo, RN [facility]06-17-[facility] Telephone encounter Note* Telephone Encounter - Christiano Centeno DO - 11/20/2024 8:44 PM EDT She's not symptomatic from the cancer. Is this for her back pain? Christiano Centeno DO [facility]06-17-[facility] Telephone encounter Note* Telephone Encounter - Stefania Felix LISW - 11/20/2024 9:07 AM EDT SOCIAL WORK FOLLOW UP NOTE: [facility]ENTER Date of service: November 19, 2024 Danette Bishop is being seen for a follow up social work visit. Today's visit includes: patient TOPICS ADDRESSED: Pt came to speak to SW this date. Pt reports she believes she is ready for a referral to Palliative medicine but does not prefer palliative medicine referral within the clinic. Pt would like a phone call to discuss services and where to send referral. Thank you. PLAN: Continue follow up as needed F/U APPOINTMENT: PRN Assigned SW listed in Care Team tab: Yes Stefania Heller, CASTER OPERATOR-S [facility] History of Present illness Narrative* Sandra Goodman RN - 11/14/2024 11:00 AM EDT Patient is here for IVAD port flush/blood draw per Nursing Epes protocol. IVAD is located in right upper chest. Site cleansed with Chloraprep IVAD accessed with a #20 gauge 3/4" non-coring Gripper needle Flush with 5cc's Normal Saline. Blood Return: Good. 10 cc's blood aspirated and discarded. Blood drawn for CBC and CMP. Flushed with: 20 ml Normal Saline. Non-coring needle removed. Paper tape applied to puncture site. Site negative for redness, edema or tenderness. Patient tolerated procedure well. documented in this encounterFort [facility]06-11-2025 NoteHNO ID: [id number] Author: SANDRA GOODMAN RN Service: ? Author Type: Registered Nurse Type: Progress Notes Filed: 11/14/2024 10:59 Note Text: .[facility]05-21-2025 [facility] NoteTr[facility]05-[facility] 10-22-2024 Telephone encounter Note* Telephone Encounter - Carole Smith RN - 10/22/2024 2:42 PM EDT External copat lab results entered. Carole Smith RN [facility] Work Phone: 1(190) 638-235705-19-2025 Miscellaneous Notes* Telephone Encounter - Carole Smith RN - 10/22/2024 2:42 PM EDT External copat lab results entered. Carole Smith RN documented in this encounterFort Hamilton Hospital05-14-2025 Telephone encounter Note * Telephone Encounter - Carole Smith RN - 10/17/2024 11:15 AM EDT Orders for dalbavancin faxed to the [facility] [place]. The [facility] infusion center does not administer antibiotics. Carole Smith RN [facility] Work Phone: 1(304) 994-203305-14-2025 Miscellaneous Notes* Telephone Encounter - Carole Smith RN - 10/17/2024 11:15 AM EDT Orders for dalbavancin faxed to the [facility]. The [facility] infusion center does not administer antibiotics. Carole Smith RN documented in this encounterFort Hamilton Hospital05-14-2025 NoteTrumbull [facility]05-14-2025 History of Present illness Narrative* Guerrero Vasquez III, MD - 10/17/2024 10:30 AM EDT [facility] Outpatient Parenteral Antimicrobial Therapy (OPAT) Start Form Patient Info Patient MRN Patient Name Address Date of [id number] [facility] [address] [facility] [id number] 1945 Start Date 10/17/2024 Physician Group [email or web address] Diagnosis Group Diagnosis Osteoarticular: Osteomyelitis Micro-organism STAPHYLOCOCCUS COAG NEGATIVE IV Antibiotics Antibiotic Dose Frequency Stop Date Dalbavancin 1.5 grams 3 doses- day 0, day 7, day 35 11/29/2024 Lab Monitoring Plan Labs Frequency While on Dalbavancin Dalbavancin Dalbavancin Other Labs: CBC, CMP, CRP at time of infusions OPAT Pharmacy Consult Yes Cath Care Protocol Flush IV line with 10 mL of normal saline (0.9%) before and after each dose of medication or at a minimum once daily. Flush IV line with 10-20 mL of normal saline (0.9%) after lab draw. Follow up Provider Follow up date/time Appointment type Guerrero Vasquez III, MD In-person Provider Monitoring Treatment Course Guerrero Vasquez III, MD Address [address] [place] [address] Prescribing Provider's signature - electronically signed by Guerrero Vasquez III, MD on 10/17/24 at10:33 AM documented in this encounterFort Hamilton Hospital05-14-2025 NoteTrumbull [facility] Hospital05-13-2025 Telephone encounter Note* Telephone Encounter - Guerrero Vasquez III, MD - 10/16/2024 9:08 AM EDT Patient needs a video appt to discuss results. Let her know we have some bacteria growing and would like to do a video visit tomorrow at [facility] to discuss the plan. Luis Alberto Sosa [facility] Work Phone: 1(950) 414-535005-13-2025 Miscellaneous Notes* Telephone Encounter - Guerrero Vasquez III, MD - 10/16/2024 9:08 AM EDT Patient needs a video appt to discuss results. Let her know we have some bacteria growing and would like to do a video visit tomorrow at [facility] to discuss the plan. Luis Alberto Sosa documented in this encounterFort Hamilton Hospital05-05-2025 Telephone encounter Note * Telephone Encounter - Ramila Bolaños RN - 10/08/2024 10:03 AM EDT DISCHARGE CALL BACK Today's date: October 08, 2024 Notified of Pt discharge by: epic notification Patient discharged on 10/05/2024 from [facility] to Home Primary Cancer Diagnosis: Breast Admitting Diagnosis: Back pain/discitis Discharge Summary/SBAR reviewed: Yes Handoff Discussed with Transitional Slat Grader: N/A Psychosocial Risk Factors: None If patient discharged to SNF/Rehab Facility, phone call completed to reinforce discharge instructions and follow up: N/A Call Disposition: Admission unrelated to cancer diagnosis/treatment Ramila Bolaños RN [facility]05-05-2025 Miscellaneous Notes* Telephone Encounter - Ramila Bolaños RN - 10/08/2024 10:03 AM EDT DISCHARGE CALL BACK Today's date: October 08, 2024 Notified of Pt discharge by: epic notification Patient discharged on 10/05/2024 from [facility] to Home Primary Cancer Diagnosis: Breast Admitting Diagnosis: Back pain/discitis Discharge Summary/SBAR reviewed: Yes Handoff Discussed with Transitional Slat Grader: N/A Psychosocial Risk Factors: None If patient discharged to SNF/Rehab Facility, phone call completed to reinforce discharge instructions and follow up: N/A Call Disposition: Admission unrelated to cancer diagnosis/treatment Ramila Bolaños RN * Telephone Encounter - Fatimah Tom - 10/05/2024 12:29 PM EDT Patient called to inform office that her procedure has been postponed to outpatient at [facility] to next week- Wed or Th due to being on Plavix. documented in this encounterFort Hamilton Hospital05-05-2025 Telephone encounter Note * Telephone Encounter - Lynne Garcia - 10/08/2024 9:57 AM EDT I.R. will call pt to schedule Pt informed Lynne Garcia [facility]05-05-2025 Miscellaneous Notes* Telephone Encounter - Lynne Garcia - 10/08/2024 9:57 AM EDT I.R. will call pt to schedule Pt informed Lynne Garcia * Telephone Encounter - Guerrero Vasquez III, MD - 10/08/2024 7:06 AM EDT Patient needs outpatient biopsy of spine to assess for infection. Will ask office staff to arrange. documented in this encounterFort Hamilton Hospital05-05-2025 Telephone encounter Note * Telephone Encounter - Guerrero Vasquez III, MD - 10/08/2024 7:06 AM EDT Patient needs outpatient biopsy of spine to assess for infection. Will ask office staff to arrange. [facility]05-02-20[facility] Telephone encounter Note* Telephone Encounter - Fatimah Tom - 10/05/2024 12:29 PM EDT Patient called to inform office that her procedure has been postponed to outpatient at [facility] to next week- Tue or Th due to being on Plavix. [facility] Work Phone: 1(756) 352-484905-01-2025 NoteHNO ID: [id number] Author: MANSOOR VILLA, CRISTINA Service: Nursing Author Type: Registered Nurse Type: Nursing Progress Note Filed: 10/04/2024 17:33 Note Text: Pt educated on HCG treatmentMainegeneral Medical Center05-01-2025 NoteHNO ID: [id number] Author: TRESA PERDOMO MD Service: Hospital Medicine Author Type: Physician Type: Plan of Care Filed: 10/04/2024 14:25 Note Text: Patient seen and examined. Reviewed chart and history and physical. Updated regarding plan of care. Discussed with patient's nurse who is at the bedside as well. Patient back pain is markedly improved. Patient has been ambulating without any difficulties. CRP and sed rate are not impressive. Very possible that abnormality noted on MRI is not of infectious etiology. Spine surgery has been consulted. Workup ongoing. Infectious disease consulted as well. Await further input. Blood cultures have been appropriately ordered. Will follow-up on those.[facility]05-01-2025 NoteHNO ID: [id number] Author: JUNE JOSEPH, CRISTINA Service: Care Management Author Type: Registered Nurse Type: Care Mgt Initial Assessment Filed: 10/04/2024 12:06 Note Text: CARE MANAGEMENT: ASSESSMENT AND DISCHARGE PLAN SERVICE DATE: October 04, 2024 SERVICE TIME: 11:28 AM PCP: Tami Chang MD Primary Contact: Extended Emergency Contact Information Primary Emergency Contact: Dayanara Bishop Address: [address] [place] [address] Mobile Relation: Spouse Admission Status: Inpatient Insurance Provider: [employer] HMO OOS Discharge Planning requested by: Per Department Practice Potential Transition Plans To Be Determined Advance Directives Current Advance Directive: Health Care Power of Medical Researcher In Chart: Yes Up To Date and Valid: Yes Current Living Arrangements and Support Lives with: Spouse/significant other Type of Residence: Private Residence (House) Does the patient have to climb stairs at home?: Yes Support: Children How do you manage to accomplish the following: Independent: Ambulation, Bathe/Shower, Dress, Meals/Meal Prep, Going to the bathroom, Medication Management, Transportation to appointments/community Current Services/Equipment Current Post-Acute Service(s): DME Current DME Type: Cane, Walker Discharge Planning Patient Goal(s): General wellness, Be able to go home, Less pain Lyons of Choice Explained: Lyons of Choice Given: No Reason Not Given: No placements necessary Are you interested in bedside delivery of your medications? No Discharge Planning Participant(s): Patient Patient/Family Comments: Caregiver Assessment: Caregiver is ready, willing and able to meet the patient's needs as recommended by the inter-professional team: Yes Name of Caregiver: Junito (spouse) Transport at Discharge: Transportation Arrangements: Car Destination: home Needs Prior to Discharge: Needs Prior to Discharge: To Be Determined Post-Acute Discharge Plan: From home with spouse, independent in activities of daily living, plan return home at discharge. Family to transport. No needs anticipated at this time. Watch for ID plan. If it is actual discitis patient MAY need iv antibiotic. SIGNATURE: June Joseph RN PATIENT NAME: Danette Bishop DATE: October 04, 2024 TIME: 11:28 [facility]04-30-2025 Telephone encounter Note* Telephone Encounter - Amy Grace LPN - 10/03/2024 12:[address] Centeno spoke with the patient and directed back to [facility] ED again. MRI report and images are in [facility] system. Amy Grace LPN [facility]04-30-2025 Miscellaneous Notes* Telephone Encounter - Amy Grace LPN - 10/03/2024 12:[address] Centeno spoke with the patient and directed back to [facility] ED again. MRI report and images are in [facility] system. Amy Grace LPN * Telephone Encounter - Ramila Bolaños RN - 10/03/2024 11:24 AM EDT EMERGENCY ROOM CALL BACK Today's date: October 03, 2024 Received an [employer] notification that patient went to the ED yesterday. Patient was sent by Dr. Shah due to her MRI results; "new T12-L1 discitis" which was not present in the August MRI. Per Dr. Rosales's note: Explained to her the MRI findings of discitis are fairly serious and infectious pathology often can worsen over hours and days. Explained to her that this will require a biopsy for both cultures as well as pathology to rule out any neoplastic process with or without discitis. Explained to her thatthe biopsy may not be able to be done on an urgent basis here in [place] and I would recommend referral to a tertiary center for biopsy, blood cultures and possibly antibiotic treatment for the discitis. Suggested to discuss with her oncologist and also possibly go to the ER at a tertiary center for further treatment of discitis or possibly neoplastic process at T12-L1. At this time, she is not ta isha any steroids. I advised her against taking any steroids. Answered all questions. " Patient went to [facility] ED; a few labs were completed. Per note, patient eloped. Office visit notes and recent imaging report printed and placed on Dr. Centeno's desk to review. It also looks like patient cancelled her treatment for tomorrow. Thank you. Ramila Bolaños, RN documented in this encounterFort Hamilton Hospital04-30-2025 Telephone encounter Note * Telephone Encounter - Christiano Centeno DO - 10/03/2024 12:20 PM EDT I called her and explained the rationale for ED evaluation and she agreed to go back to ED. Christiano Centeno DO [facility]04-30-2025 Miscellaneous Notes* Telephone Encounter - Christiano Centeno DO - 10/03/2024 12:20 PM EDT I called her and explained the rationale for ED evaluation and she agreed to go back to ED. Christiano Centeno DO documented in this encounterFort Hamilton Hospital04-30-2025 Telephone encounter Note * Telephone Encounter - Ramila Bolaños RN - 10/03/2024 11:24 AM EDT EMERGENCY ROOM CALL BACK Today's date: October 03, 2024 Received an [employer] notification that patient went to the ED yesterday. Patient was sent by Dr. Shah due to her MRI results; "new T12-L1 discitis" which was not present in the August MRI. Per Dr. Rosales's note: Explained to her the MRI findings of discitis are fairly serious and infectious pathology often can worsen over hours and days. Explained to her that this will require a biopsy for both cultures as well as pathology to rule out any neoplastic process with or without discitis. Explained to her thatthe biopsy may not be able to be done on an urgent basis here in [place] and I would recommend referral to a tertiary center for biopsy, blood cultures and possibly antibiotic treatment for the discitis. Suggested to discuss with her oncologist and also possibly go to the ER at a tertiary center for further treatment of discitis or possibly neoplastic process at T12-L1. At this time, she is not ta isha any steroids. I advised her against taking any steroids. Answered all questions. " Patient went to [facility] ED; a few labs were completed. Per note, patient eloped. Office visit notes and recent imaging report printed and placed on Dr. Centeno's desk to review. It also looks like patient cancelled her treatment for tomorrow. Thank you. Ramila Bolaños RN [facility]04-15-2025 Telephone encounter Note* Telephone Encounter - Adore Whiting LPN - 09/18/2024 10:58 AM EDT Faxed. Adore Whiting LPN [facility]04-15-2025 Miscellaneous Notes* Telephone Encounter - Adore Whiting LPN - 09/18/2024 10:58 AM EDT Faxed. Adore Whiting LPN * Telephone Encounter - Fatimah Tom - 09/18/2024 10:50 AM EDT Melani from [facility] requesting documentation stating where patient has cancer- left or right breast. Please fax to [phone]. documented in this encounterFort Hamilton Hospital04-15-2025 Telephone encounter Note * Telephone Encounter - Fatimah Tom - 09/18/2024 10:50 AM EDT Melani from [facility] requesting documentation stating where patient has cancer- left or right breast. Please fax to [phone]. [facility] Work Phone: 1(963) 924-985904-11-2025 Telephone encounter Note* Telephone Encounter - Ramila Bolaños RN - 09/14/2024 3:40 PM EDT Patient informed of Dr. Centeno's response, stated understanding. No sign of cancer in the lower spine where her pain is located. Area at T5 remains unchanged. Ramila Bolaños RN [facility]04-11-2025 Miscellaneous Notes* Telephone Encounter - Ramila Bolaños RN - 09/14/2024 3:40 PM EDT Patient informed of Dr. Centeno's response, stated understanding. No sign of cancer in the lower spine where her pain is located. Area at T5 remains unchanged. Ramila Bolaños RN * Telephone Encounter - Ramila Bolaños RN - 09/10/2024 11:23 AM EDT Care Coordination Triage Note Cancer Epes Situation: Patient reports Pain/Back or Spine Pain/Headache Background: Breast Cancer. On . Patient went to [facility] by ambulance on 08/25/24 due to severe back spasms. Patient had scans completed at [facility]. Patient stated she had urinary retention and had to have a catheter placed. Once the catheter was able to be removed and she was able to ambulate, they discharged her home on 08/29/24. Patient stated since then, she has been ambulating with a walker and continues to have issues with back spasms. Patient had a follow-up OV with Dr. Calle on 09/05 and was informed that she should follow-up with Dr. Centeno's office; this nurse will request OV notes. Patient called today to report the back pain and would [facility] can see if there is a reason she is having the back pain. Pain assessment completed. H/o spondylolisthesis and two back surgeries. Assessment: GENERALIZED PAIN Where is the pain? "Lower back, where I had my back surgery, L4-5 area" When did you first notice the pain? 08/23. How intense is the pain when it s at its worst (scale of 1-10)? 05/15 How intense is the pain right now (scale of 1-10)? Sitting right now, relaxed, 07/16. Movement causes a spasm and exacerbates the pain. How do you describe the pain: "grabs" and takes about 30 seconds before the pain subsides. Does the pain radiate anywhere? Yes, "Around to my hip" R>L "more twinge with the right side" Has the pain changed since it started? "This morning I was having twinges but I was able to walk without the walker from the kitchen to the bedroom". Patient was in the recliner and tried to stand upand had a back spasm. Is the pain constant or intermittent? Constant What makes it better? Hydrocodone helps, also taking muscle relaxer's What makes it worse? Sitting up from lying down, standing and sitting, sitting to standing; any type of movement. Have you had this pain before? no What are you taking anything for the pain? Hydrocodone-at bedtime and in the morning. Are you doing anything else to help with the pain other than medications? (heat, cold, movement, stretching, etc) heat/ice helps "momentarily" BACK/SPINE PAIN Does it radiate to the legs or arms? no Do you have any weakness in your upper or lower extremities? no Any new numbness or tingling in the hands or feet? no Any difficulty urinating or having a bowel movement? Had a catheter in for 4 days at [facility] d/t urinary retention. Voiding okay now. Any incontinence of bowel or bladder? "When I move from laying down to getting up, I leak". Patientis wearing depends. Denies dysuria, hematuria, or urgency/frequency. Recommendations: Per RNCC, patient directed to: Manage at home. Instructions provided. Will discuss with Dr. Centeno. Ramila Bolaños RN September 10, 2024 11:23 AM * Telephone Encounter - Sara Velasco - 09/10/2024 11:16 AM EDT Patient called to reschedule lab appointment and talk to Ramila Bolaños. Please call patient when able. Sara Velasco documented in this encounterFort Hamilton Hospital04-09-2025 NoteTrumbull [facility]04-09-2025 History of Present illness Narrative* Domenic Kelley APRN.[facility] - 09/12/2024 9:50 AM EDT Chief Complaint Patient presents with: Established Patient HPI: Danette Bishop is a 79 year old female who presents here today for evaluation for treatment on Tuesday. Per Dr. Centeno's previous note: H/o hypertension, stroke (x2; not on ASA because of h/o bleeding ulcer) and DCIS. Treated for left sided DCIS with lumpectomy and radiation when living in [place] in 2012. Started on tamoxifen but had negative side effects then sounds like she was tried on an aromatase inhibitor but have musculoskeletal side effects and then stopped treatment. Had been getting routine mammography in [place] until 2013. Since has been getting mammogram at [facility]. Most recent was on 12/28/2019. Scattered benign calcifications were observed. There were no dense spiculated masses or suspicious microcalcifications identified. Fairly stable architectural distortion in the left breast with previous surgery. No skin thickening or retraction. Significant change from previous mammogram on 12/05/2018. She developed abdominal pain in July 2020. Initially had an ultrasound on 07/08/2020 that demonstrated a 2.7 x 3.2 x 2.6 cm hypoechoic solid nodule in the right lobe of liver. MRI Liver 08/08/2020: Liver: Multiple solid masses in the right lobe of the liver. Largest of these is seen within the peripheral right lobe of the liver and measures 2.5 x 2.5 cm. Biliary tract: The common bile duct is normal in course and caliber. No filling defect is identified within the common duct. Gallbladder: Unremarkable Pancreatic duct: 7 mm T2 bright lesion involving the pancreatic tail. No dilatation of the pancreatic duct. Spleen: No lesion is identified. Pancreas: The pancreas enhances normally and is without focal lesions. Adrenal glands: No mass is identified Kidneys: Simple appearing cortical cysts involving both kidneys. No hydronephrosis. Possible lesion involving the T6 vertebral body. Postsurgical change involving the left breast. No adenopathy is identified. Imaged lung bases are clear. No pericardial effusion or pericardial thickening. CT of chest, abdomen pelvis revealed no thoracic lymphadenopathy. There was a nonspecific scleroticdensity in the vertebral body of T6. Scarring was noted in the left breast. No pulmonary nodules. CT of the abdomen pelvis reveals scattered hepatic masses favoring metastatic disease. There is left lateral abdominal wall hernia containing nondilated descending colon. Biopsy one of the right lobe of the liver lesions performed on 08/21/2020. Pathology: Metastatic adenocarcinoma with prominent mucinous features. Tumor cells were positive for CK7 and GATA3 and negative for CK20, TTF-1 and Napsin a. ER staining showed weak positivity in approximately 10 to 20% of cells. MN was negative with 0% staining. HER-2 was positive at 3+ on immunohistochemistry stain. She has a history of Opsadas's esophagus which was initially diagnosed in 2009. Her most recent EGDwas in 2019. That study was done to evaluate epigastric spasms. It was performed by Dr. Rahman with the GI group in [place]. Pathology on the biopsy specimen report was not available but patient said her symptoms stopped when she changed from omeprazole to ease omeprazole. She did not have dysphagia. No odynophagia. No heartburn per se. She denied nausea. She has IBS mostly manifested as constipation. She has chronic intermittent left upper quadrant pain that she attributes to gas. No signs of GI bleeding. Patient lost a son to suicide on July 2020. Underwent EGD on 09/01/2020. Esophageal mucosal changes secondary to established short segment Posadas's disease was present in the lower third esophagus. The maximal longitudinal extent of these changes was 6 mm in length. Biopsies were obtained with cold forceps for histology. The entire examined stomach and duodenum were normal. Pathology: Esophagus, distal, biopsy Cardio-oxyntic mucosa with no diagnostic abnormality. - Negative for intestinal metaplasia. Ultrasound left breast on 09/02/2020 identified a 1.7 x 0.9 x 0.6 cm lobulated mass in the left breast at 1:00 anterior depth. It was hypoechoic and correlated with the mammography findings. It was adjacent to the surgical scar. She was referred for and underwent biopsy on 09/09/2020. Pathology: A. Left breast, needle core biopsy: - Invasive ductal carcinoma with mucinous features, provisional histologic grade 2 (see comment). Estrogen Receptor (ER) Positive (40%) Stain intensity: Moderate to strong Progesterone Receptor (PgR) Positive (1-5%) Stain intensity: Weak HER2 (ERBB2) IMMUNOHISTOCHEMISTRY ASSAY Interpretation: POSITIVE for HER2 (ERBB2) Expression Score: 3+ Whole body bone scan 09/04/2020: Whole body bone scan and spot images demonstrate moderately increased uptake at T12-L1, L4-5 and left L5 facet, corresponding to moderate degenerative change of the thoracolumbar spine and postsurgical change of L4-5 interbody fusion and pedicle alla and screws fixation of the left L4-5 on the abdomen and pelvic CT. Specifically, no abnormally increased or decreased uptake is identified in the mid thoracic spine to correspond to 1.4 cm T6 sclerotic lesion on recent chest CT. There is increased uptake involving both shoulders, sternoclavicular joints, left upper cervical spine, hips, knees, and ankles in a pattern most compatible with degenerative/arthritic disease. If clinically indicated, correlation with radiographs could be obtained at clinical discretion. No other areas of abnormal focal, regional or segmental osseous uptake are seen to suggest the presence of osseous metastatic lesions. INDETERMINATE 1.4 CM T6 SCLEROTIC LESION WITHOUT ASSOCIATED ABNORMAL TRACER [place] IDENTIFIED. MRI thoracic spine 10/02/2020: IMPRESSION: T6 sclerotic focus. Given the lack of activity on the recent bone scan, this is most likely not an active metastatic lesion and may reflect a bone island. No evidence of metastatic disease to the thoracic vertebral bodies. Numerous hepatic metastatic lesions have been evaluated with CT recently. Previous therapy: 1) Docetaxel, pertuzumab and trastuzumab. 2) Trastuzumab and Pertuzumab. Current therapy: 1) Trastuzumab (Ontruzant). 2) Letrozole. Began 03/2021. Underwent left-sided simple mastectomy on 06/28/2023. Pathology: Left breast, mastectomy: - Residual invasive ductal carcinoma, Lorraine grade III, measuring 16 mm in greatest dimension (please see synoptic report and comment). 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 - Microcalcifications in invasive carcinoma, DCIS, changes consistent with prior procedure, and au of blood vessels. - Biopsy site changes, biopsy clip (x1), and changes consistent with prior procedure identified. [facility] 07/01/23 Diagnosis Comment Histologic sections of the grossly-identified 16 mm x 16 mm tumor bed demonstrates residual invasive and in-situ carcinoma. Tumor bed dimension #1: 16 mm Tumor bed dimension #2: 16 mm Invasive tumor cellularity: 50% Ductal carcinoma in situ cellularity: 5% SPECIMEN Procedure Total mastectomy Specimen Laterality Left TUMOR Histologic Type Invasive carcinoma of no special type (ductal) Histologic Grade (Lorraine Histologic Score) Glandular (Acinar) / Tubular Differentiation Score 3 Nuclear Pleomorphism Score 3 Mitotic Rate Score 3 Overall Grade Grade 3 (scores of 8 or 9) Tumor Size Greatest dimension of largest invasive focus (Millimeters): 16 mm Tumor Focality Single focus of invasive carcinoma Ductal Carcinoma In Situ (DCIS) Present Size (Extent) of DCIS Estimated size (extent) of DCIS is at least (Millimeters): 4 mm Architectural Patterns Solid Nuclear Grade Grade III (high) Necrosis Present, central (expansive "comedo" necrosis) Lobular Carcinoma In Situ (LCIS) Not identified Lymphatic and / or Vascular Invasion Not identified Dermal Lymphatic and / or Vascular Invasion Not identified Microcalcifications Present in DCIS Present in invasive carcinoma Present in non-neoplastic tissue Treatment Effect in the Breast Probable or definite response to presurgical therapy in the invasivecarcinoma MARGINS Margin Status for Invasive Carcinoma All margins negative for invasive carcinoma Distance from Invasive Carcinoma to Closest Margin Greater than: 2 mm Margin Status for DCIS All margins negative for DCIS Distance from DCIS to Closest Margin Greater than: 2 mm REGIONAL LYMPH NODES Regional Lymph Node Status Not applicable (no regional lymph nodes submitted or found) pTNM CLASSIFICATION (AJCC 8th Edition) Reporting of pT, pN, and (when applicable) pM categories is based on information available to the pathologist at the time the report is issued. As per the AJCC (Chapter 1, 8th Ed.) it is the managingphysician s responsibility to establish the final pathologic stage based upon all pertinent information, including but potentially not limited to this pathology report. Modified Classification y pT Category pT1c pN Category pN not assigned (no nodes submitted or found) Breast Biomarker Testing Performed on Previous Biopsy Estrogen Receptor (ER) Status Positive (greater than 10% of cells demonstrate nuclear positivity) Percentage of Cells with Nuclear Positivity 40 % Breast Biomarker Testing Performed on Previous Biopsy Progesterone Receptor (PgR) Status Positive Percentage of Cells with Nuclear Positivity 1-5 % Breast Biomarker Testing Performed on Previous Biopsy HER2 (by immunohistochemistry) Positive (Score 3+) Percentage of Cells with Uniform Intense Complete Membrane Staining 90 % Pt. here today with spouse. Followed by pain mgmt for chronic back pain. Appetite:"Still good." Wt. down 4#. Energy level:"I don't a lot." Denies fevers. Mouth:denies sores Resp:denies cough or sob Cardiac:denies chest pain/palpitations GI:denies abd pain, n/v, moving bowels regularly-taking metamucil :denies dysuria/hematuria Extrem:chronic back pain, denies new pain Endo:denies hot flashes Neuro:denies symptoms of neuropathy Skin:denies rashes Heme:denies bleeding The ROS is otherwise negative. Past medical history, appointments, medications, allergies reviewed. No changes. EXAM: BP 127/72 Pulse 92 Temp 36.7 C (98 F) (Temporal) Wt 67.6 kg (149 lb) SpO2 100% BMI 27.70kg/m APPEARANCE Well appearing, alert, in no acute distress, well-hydrated, well nourished. HEART RRR with normal S1 and S2, no murmurs LUNG clear to auscultation BREAST FEMALE L mastectomy scar, lateral seroma stable, no new nodule/skin changes LYMPH NODES No cervical lymphadenopathy, No supraclavicular lymphadenopathy, and No axillary lymphadenopathy. ABDOMEN bowel sounds normoactive, soft, non-tender EXTREMITIES No edema NEURO Awake, alert and oriented x 3, using wheeled walker, and No involuntary motions. SKIN Skin color, texture, turgor normal, no suspicious rashes or lesions LABS: Latest Ref Rng 07/31/2024 08/21/2024 09/12/2024 WBC 3.70 - 11.00 k/uL 5.64 5.87 9.19 RBC 3.90 - 5.20 m/uL 3.96 3.93 4.10 Hemoglobin 11.5 - 15.5 g/dL 11.8 11.8 12.1 Hematocrit 36.0 - 46.0 % 34.8 (L) 34.8 (L) 35.9 (L) MCV 80.0 - 100.0 fL 87.9 88.5 87.6 MCH 26.0 - 34.0 pg 29.8 30.0 29.5 MCHC 30.5 - 36.0 g/dL 33.9 33.9 33.7 RDW-CV 11.5 - 15.0 % 15.4 (H) 15.8 (H) 15.4 (H) Platelet Count 150 - 400 k/uL 323 332 484 (H) MPV 9.0 - 12.7 fL 9.5 9.1 8.5 (L) Neut% % 65.3 62.6 77.3 Abs Neut (ANC) 1.45 - 7.50 k/uL 3.69 3.67 7.10 Lymph% % 24.8 26.9 15.1 Abs Lymph 1.00 - 4.00 k/uL 1.40 1.58 1.39 [place]% % 5.9 6.8 6.1 Abs [place] <0.87 k/uL 0.33 0.40 0.56 Eosin% % 2.0 2.2 0.4 Abs Eosin <0.46 k/uL 0.11 0.13 0.04 Baso% % 1.6 1.2 0.7 Abs Baso <0.11 k/uL 0.09 0.07 0.06 Immature Gran % % 0.4 0.3 0.4 IMMATURE GRANS (ABS) <0.10 k/uL <0.03 <0.03 0.04 NRBC /100 WBC 0.0 0.0 0.0 Absolute nRBC <0.01 k/uL <0.01 <0.01 <0.01 DTYPE Auto Auto Auto CMP: Pending ASSESSMENT/PLAN: 1. Malignant neoplasm of female breast, unspecified estrogen receptor status, unspecified laterality, unspecified site of breast (HCC) - ICD9: 174.9, ICD10: C50.919 (primary diagnosis) 2. HER2-positive carcinoma of left breast (HCC) - ICD9: 174.9, ICD10: C50.912, Z17.[address] Centeno's previous note: Assessment: -The patient is a 78-year-old female with a past medical history significant for DCIS of the left breast who was found to have metastatic adenocarcinoma (liver) consistent with breast primary after presenting with epigastric pain. -KPS is 100%. -s/p left simple mastectomy. -No symptoms, exam or echocardiographic findings of cardiomyopathy. -Will discuss every 3 month Zometa. -Continues to tolerate trastuzumab well. Recent echocardiogram in April showed no evidence of left ventricular dysfunction. Plan: -Due for echocardiogram in October. -Continue letrozole. -Continue trastuzumab. -Monitor CBC & CMP every 3 weeks & OV every 6 weeks. -Repeat MRI and PET scan. (D75.839) Thrombocytosis Assessment: -Discussed common etiologies. Potential iron deficiency based on chronic PPI use and recent endoscopy findings. Plan: -Check iron studies. -Trial of oral iron if low. (J06.9) Viral URI Assessment: -Symptoms resolving but still having left eustachian tube dysfunction. Plan: -Advised a trial of Santosh-Synephrine nasal spray for several days. - Tolerating femara/ontruzant well. - Reviewed CBC with pt. and spouse. - CMP pending. - Multiple questions answered. - Continue femara. - Continue current medications. - Continue follow up with CPM. - Due for ECHO in October. - Proceed as scheduled for ontruzant on Tuesday. - Follow up as scheduled. - Pt. aware to call office with any questions/concerns. The patient indicates understanding of these issues and agrees with the plan. All documentation from previous visit of 08/01/24-Dr. Centeno/myself was copied and pasted, documentation has been reviewed and edited as necessary for today's visit. Domenic Kelley APRN.CNP [facility] Telephone encounter Note * Telephone Encounter - Ramila Bolaños RN - 09/10/2024 11:23 AM EDT Care Coordination Triage Note Cancer Epes Situation: Patient reports Pain/Back or Spine Pain/Headache Background: Breast Cancer. On . Patient went to [facility] by ambulance on 08/25/24 due to severe back spasms. Patient had scans completed at [facility]. Patient stated she had urinary retention and had to have a catheter placed. Once the catheter was able to be removed and she was able to ambulate, they discharged her home on 08/29/24. Patient stated since then, she has been ambulating with a walker and continues to have issues with back spasms. Patient had a follow-up OV with Dr. Calle on 09/05 and was informed that she should follow-up with Dr. Centeno's office; this nurse will request OV notes. Patient called today to report the back pain and would [facility] can see if there is a reason she is having the back pain. Pain assessment completed. H/o spondylolisthesis and two back surgeries. Assessment: GENERALIZED PAIN Where is the pain? "Lower back, where I had my back surgery, L4-5 area" When did you first notice the pain? 08/23. How intense is the pain when it s at its worst (scale of 1-10)? 05/15 How intense is the pain right now (scale of 1-10)? Sitting right now, relaxed, 07/16. Movement causes a spasm and exacerbates the pain. How do you describe the pain: "grabs" and takes about 30 seconds before the pain subsides. Does the pain radiate anywhere? Yes, "Around to my hip" R>L "more twinge with the right side" Has the pain changed since it started? "This morning I was having twinges but I was able to walk without the walker from the kitchen to the bedroom". Patient was in the recliner and tried to stand upand had a back spasm. Is the pain constant or intermittent? Constant What makes it better? Hydrocodone helps, also taking muscle relaxer's What makes it worse? Sitting up from lying down, standing and sitting, sitting to standing; any type of movement. Have you had this pain before? no What are you taking anything for the pain? Hydrocodone-at bedtime and in the morning. Are you doing anything else to help with the pain other than medications? (heat, cold, movement, stretching, etc) heat/ice helps "momentarily" BACK/SPINE PAIN Does it radiate to the legs or arms? no Do you have any weakness in your upper or lower extremities? no Any new numbness or tingling in the hands or feet? no Any difficulty urinating or having a bowel movement? Had a catheter in for 4 days at [facility] d/t urinary retention. Voiding okay now. Any incontinence of bowel or bladder? "When I move from laying down to getting up, I leak". Patientis wearing depends. Denies dysuria, hematuria, or urgency/frequency. Recommendations: Per RNCC, patient directed to: Manage at home. Instructions provided. Will discuss with Dr. Centeno. Ramila Bolaños RN September 10, 2024 11:23 AM [facility]04-07-[facility] Telephone encounter Note* Telephone Encounter - Sara Velasco - 09/10/2024 11:16 AM EDT Patient called to reschedule lab appointment and talk to Ramila Bolaños. Please call patient when able. Sara Velasco [facility]03-26-2025 Discharge summary Author Carolyn Hatch [facility] Note Date/Time August 29, 2024 1:3 3pm [facility] Medical Records Department [address] [place] [address] Discharge Summary 08/29/24 1236 MR#: [id number] Acct: [id number] Name: DANETTE BISHOP Rep #:[id number] 1945 79 From: Carolyn Hatch DO PCP: Dr. Tami Chang MD Status:ADM JASPREET Location: [place] [id number] Providers Date of Admission: 08/25/24 Date of Discharge: 08/29/24 Primary Care Physician: Dr. Tami Chang MD Consultations 08/25/24 18:11 Consult: Pain Management Routine Consulting Provider: Wendy Calle Reason for Consult: acute on chronic low back pain w/ spasms EMERGENT Consult: No MD Notified: Yes Date Notified: 08/25/24 Time Notified: 17:52 Method of Notification: Text 08/27/24 14:33 Consult: Orthopedics Routine Consulting Provider: Jin Rosales Reason for Consult: Lumbar pain EMERGENT Consult: No Notified: Yes Date Notified: 08/27/24 Time Notified: 14:34 Method of Notification: Verbal 08/27/24 14:39 Consult: Pain Management Routine Consulting Provider: Wendy Calle Reason for Consult: Lumbar pain nonradicular EMERGENT Consult: No Notified: Yes Date Notified: 08/27/24 Time Notified: 14:39 Method of Notification: Verbal Reason For Visit: INTRACTABLE BACK PAIN W/INABILITY TO Diagnosis Discharge Diagnosis (1) Spondylolisthesis, lumbar region: Status: Acute Code(s): M43.16 - Spondylolisthesis, lumbar region (2) Acute on chronic low back pain: Status: Chronic Code(s): M54.50 - Low back pain, unspecified; G89.29 - Other chronic pain (3) Fusion of lumbar spine: Status: Acute Code(s): M43.26 - Fusion of spine, lumbar region (4) Unable to ambulate: Status: Acute Code(s): R26.2 - Difficulty in walking, not elsewhere classified (5) Acute urinary retention: Status: Acute Code(s): R33.8 - Other retention of urine Plan Acute on chronic back pain -History of spondylolisthesis and fusion of lumbar spine -MRI done this admission which shows no acute processes but does showed severe degeneration at L3 and L4 along with facet arthrosis -Plan is for epidural injections today -Will need therapy to evaluate prior to discharge to make sure she is mobile enough to go home -Hopeful for discharge tomorrow Urinary retention -Discontinue Queen and monitor for further retention Hypothyroidism -Continue home levothyroxine -Continue home Liothyronine Essential hypertension -Continue home amlodipine -Continue home lisinopril Metastatic breast cancer -Continue letrozole -Follows with Dr. Centeno -Findings on MRI were discussed with him and all findings were chronic History of Posadas's esophagus -Continue on PPI History of TIA -Continue Plavix Vitamin D deficiency -Continue vitamin D supplementation Depression/insomnia -Continue home zolpidem -Continue fluoxetine DVT prophylaxis -Start enoxaparin CODE STATUS -Full code as verified Medications at Discharge Home Medications fluoxetine 40 mg capsule 40 mg PO DAILY 06/16/17 lisinopril 20 mg tablet 20 mg PO DAILY 09/25/20 levothyroxine 125 mcg tablet 112 mcg PO DAILY 30 days #27 tabs 06/11/21 hydrocodone-acetaminophen 5-325mg 5mg-325mg 1 tab PO Q6H PRN pain 07/16/22 alprazolam 0.5 mg tablet 0.5 mg PO DAILY PRN anxiety 07/21/22 letrozole 2.5 mg tablet 2.5 mg PO DAILY 02/16/24 amlodipine 5 mg tablet 5 mg PO QHS 04/30/24 clopidogrel 75 mg tablet 75 mg PO DAILY 04/30/24 esomeprazole magnesium 20 mg capsule,delayed release (Nexium) 20 mg PO DAILY 04/30/24 liothyronine 5 mcg tablet 5 mcg PO DAILY 05/21/24 zolpidem 10 mg tablet 10 mg PO QHS 05/21/24 acetaminophen 650 mg tablet,extended release 650 mg PO PRN ARTHRITIS 08/25/24 cholecalciferol (vitamin D3) 50 mcg (2,000 unit) capsule 50 mcg PO DAILY 08/25/24 ferrous sulfate 325 mg (65 mg iron) tablet (Feosol) 325 mg PO DAILY 08/25/24 multivitamin (Daily Multi-Vitamin tablet) 1 tab PO DAILY 08/25/24 psyllium husk 3.4 gram/5.4 gram oral powder (Metamucil) 1 tsp PO DAILY 08/25/24 acetaminophen 500 mg tablet 1,000 mg (2 x 500 mg) PO Q8 #0 tabs 08/29/24 lidocaine 5 % topical patch 1 patch topical DAILY #30 ea 08/29/24 oxycodone 5 mg tablet 5 mg PO Q4H PRN PRN Pain Score 4-10 5 days #30 tabs 08/29/24 sennosides 8.6 mg tablet (senna) 8.6 mg PO BID #14 tabs 08/29/24 Hospital Course Operations - (Epidural injection) Procedures - (CT lumbar spine/MRI lumbar spine/lumbar x-ray postprocedure) Summary of Care Provided Minutes Spent on Discharge: 30 Hospital Course: Mrs. Bishop is a 79-year-old white female who presented to emergency department [facility] on 08/25/2024 with a chief complaint of acute on chronic back pain with spasms and the inability to ambulate. She has ahistory of chronic low back pain with previous L[facility] She then had a discectomy done there in 2020. She also has a history of metastatic breast cancer and follows with Dr. Centeno. She has been stable on trastuzumab and letrozole recently. Patient reported about midmorning on the day of presentation she developed significant bilateral low back muscle spasms which were new for her. She indicated she has chronic pain but never as bad lately. Spasms made it difficult for her to ambulate to the point where she was unable to move. Vital signs on presentation showed temperature 98.9, heart rate 4, respiratory 16, blood pressure was 148/129 with a repeat of 164/86 and pulse ox 100% on room air. CBC showed a mild leukocytosis with 13.2 and a chronic stable anemia with a hemoglobin 11.9 otherwise unremarkable. Chemistry panel was overtly unremarkable. CT of the lumbar spine showed no acute lumbar fracture with previous noted multilevel degenerative central and neural foraminal stenosis. Given her inability to ambulate she was admitted to the hospital as observation and was started on muscle relaxants, scheduled Tylenol, lidocaine patch, p.o. oxycodone, IV Dilaudid, and was given Decadron. A lumbar MRI was pursued and showed previous spinal fusion at L4-L5, multilevel degenerative changes, mild spondylolisthesis and a T2 weighted hypointense lesion at T6 vertebral body lesion which had previously been noted and followed by Dr. Cetneno. 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 Given findings on MRI a consultation to orthopedicsurgery was placed and no further surgical intervention was recommended however it was recommended she have a back injection with pain management. This was performed on 08/28/2024. Following injection she was doing quite well. And was able to move around independently with a walker. It is felt that she is appropriate for outpatient physical therapy at the time of discharge. Patient did have some urinary retention at the time of admission and was getting Queen catheter. This was able to be removed and patient was able to void without difficulty prior to discharge. Patient is follow-up with pain management as indicated on her discharge paperwork. Her primary care physician within next 1 to 2 weeks and continue to follow-up with oncology as previously recommended. Patient was able to discharge, stable condition on 08/29/2024. Prescriptions forpain medication and lidocaine patches were written for the time of discharge. Discharge diagnoses: Acute on chronic back pain Urinary retention-resolved Hypothyroidism Essential hypertension Metastatic breast cancer Chronic anemia History of Posadas's esophagus History of TIA Vitamin D deficiency Depression Insomnia Physical Exam Narrative Patient states she is feeling overall better since her injection. Much better since admission. Still having some pain. Plan is for outpatient therapy. Anxious to go home. Const alert, oriented x3, no apparent distress, average body habitus, no limitations and well nourished Constitutional Narrative: Elderly, white female, sitting up in chair at the bedside, appears comfortable, nontoxic, at the bedside General Appearance: cooperative, comfortable, well kempt and well developed Exam Limitations: no limitations Nutritional Appearance: overweight HEENT normocephalic and head/scalp atraumatic HEENT Narrative: Mallampati 2, no thrush Resp normal respiratory effort, normal air movement, no retractions, no use of accessory muscles and clear to auscultation bilaterally Auscultation: Negative for rales, rhonchi or wheezes Cardio regular rate, regular rhythm, S1 normal heart sound, S2 normal heart sound, no murmurs, no rub, no gallops and no clicks GI normal to inspection, nondistended, normoactive bowel sounds, soft to palpation and non-tender Back/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 Please refer to the operative notefor further details. Reading Location: [facility] D/C Instructions Discharge Diet: Low fat / Low cholesterol Discharge Activity: Return to Normal Activity and Use Walker DC O2, CPAP, BIPAP Needs Home O2 Discharge instructions: No Meaningful Use Info Meaningful Use Meaningful Use Diagnoses (Choose all that apply): None applicable Ischemic Stroke Statin Dosing Therapy Reference: STATIN DOSE THERAPY REFERENCE: * Patients > 75 years receive moderate or high dose statin therapy. * Patients 75 years or YOUNGER should receive HIGH intensity statin dose unless contraindicated. You will be required to document reason for non-treatment if statin daily dose does not meet guidelines. HIGH DOSE STATIN THERAPY DAILY Atorvastatin > than or = to 40 mg Rosuvastatin > than or = to 20 mg Amlodipine + Atorvastatin > than or = to 2.5/40 mg Ezetimibe + Simvastatin 10/80 mg Simvastatin 80mg Discharge Plan Admission Admit Date/Time: 08/25/24 16:23 Primary Reason for Your Visit: Intractable back pain Attending Provider: Carolyn Hatch Primary Care Provider: Tami Chang Consulting Providers: Buzz Alford; Wendy Calle; Jin Rosales; Dominik Carlos Discharge Orders/Prescriptions Prescriptions: New acetaminophen 500 mg Tablet 1,000 mg PO Q8 Qty: 0 0RF lidocaine 5 % Adhesive Patch,Medicated 1 patch topical DAILY Qty: 30 1RF Protocol: *Topical Application Instructions APPLICATION INSTRUCTIONS: low back oxycodone 5 mg Tablet 5 mg PO Q4H PRN PRN (Reason: Pain Score 4-10) 5 Days Qty: 30 0RF sennosides [senna] 8.6 mg Tablet 8.6 mg PO BID Qty: 14 0RF Continued fluoxetine 40 mg capsule 40 mg PO DAILY levothyroxine 125 mcg tablet 112 mcg PO DAILY 30 Days Qty: 27 Patient Comments: PT CANNOT TAKE GENERIC, CAN ONLY BRING BRAND, FAMILY CAN BRING FROM HOME. clopidogrel 75 mg tablet 75 mg PO DAILY hydrocodone-acetaminophen 5-325 mg tablet 1 tab PO Q6H PRN (Reason: pain) alprazolam 0.5 mg tablet 0.5 mg PO DAILY PRN (Reason: anxiety) letrozole 2.5 mg tablet 2.5 mg PO DAILY amlodipine 5 mg tablet 5 mg PO QHS esomeprazole magnesium [Nexium] 20 mg capsule,delayed release(/EC) 20 mg PO DAILY lisinopril 20 MG tablet 20 mg PO DAILY liothyronine 5 mcg tablet 5 mcg PO DAILY zolpidem 10 mg tablet 10 mg PO QHS Metamucil 3.4 gram/5.4 gram powder 1 tsp PO DAILY Rx Instructions: mix into at least 4 oz water or juice before administering cholecalciferol (vitamin D3) 50 mcg (2,000 unit) capsule 50 mcg PO DAILY multivitamin [Daily Multi-Vitamin] Tablet 1 tab PO DAILY ferrous sulfate [Feosol] 325 mg (65 mg iron) tablet 325 mg PO DAILY acetaminophen 650 mg tablet extended release 650 mg PO PRN Referrals / Follow Up: Wendy Calle MD [Med Staff - Active Staff] - 09/26/24 1:45 pm Tami Chang MD [Primary Care Provider] - In 1 Week Christiano Centeno DO [Med Staff - Active Staff] - 09/12/24 10:00 am (09/11/2024 Patient Labs Scheduled ) Disposition Disposition (needs filled in before D/C Order can be placed): Home, Self Care Charges/Coding Visit Charges Inpatient E&M: 83283 Disch Hosp 08/29/24 1333 <Electronically signed by Carolyn Hatch DO> Cosigner Signature (if applicable): CC: Dr. Tami Chang MD; Dr. Wendy Calle MD; Dr. Carolyn Hatch DO; Dr. Christiano Centeno DO~ Signed [facility] Work Phone: 1(185) 999-234303-26-2025 Discharge summary [facility] Medical Records Department [address] [place] [id number] Discharge Summary 08/29/24 1236 MR#: [id number] Acct: [id number] Name: DANETTE BISHOP Rep #:[id number] : 1945 79 From: Carolyn Hatch DO PCP: Dr. Tami Chang MD Status:ADM JASPREET [place] [facility] [id number] Providers Date of Admission: 08/25/24 Date of Discharge: 08/29/24 Primary Care Physician: Dr. Tami Chang MD Consultations 08/25/24 18:11 Consult: Pain Management Routine Consulting Provider: Wendy Calle Reason for Consult: acute on chronic low back pain w/ spasms EMERGENT Consult: No Notified: Yes Date Notified: 08/25/24 Time Notified: 17:52 Method of Notification: Text 08/27/24 14:33 Consult: Orthopedics Routine Consulting Provider: Jin Rosales Reason for Consult: Lumbar pain EMERGENT Consult: No Notified: Yes Date Notified: 08/27/24 Time Notified: 14:34 Method of Notification: Verbal 08/27/24 14:39 Consult: Pain Management Routine Consulting Provider: Wendy Calle Reason for Consult: Lumbar pain nonradicular EMERGENT Consult: No Notified: Yes Date Notified: 08/27/24 Time Notified: 14:39 Method of Notification: Verbal Reason For Visit: INTRACTABLE BACK PAIN W/INABILITY TO Diagnosis Discharge Diagnosis (1) Spondylolisthesis, lumbar region: Status: Acute Code(s): M43.16 - Spondylolisthesis, lumbar region (2) Acute on chronic low back pain: Status: Chronic Code(s): M54.50 - Low back pain, unspecified; G89.29 - Other chronic pain (3) Fusion of lumbar spine: Status: Acute Code(s): M43.26 - Fusion of spine, lumbar region (4) Unable to ambulate: Status: Acute Code(s): R26.2 - Difficulty in walking, not elsewhere classified (5) Acute urinary retention: Status: Acute Code(s): R33.8 - Other retention of urine Plan Acute on chronic back pain -History of spondylolisthesis and fusion of lumbar spine -MRI done this admission which shows no acute processes but does showed severe degeneration at L3 and L4 along with facet arthrosis -Plan is for epidural injections today -Will need therapy to evaluate prior to discharge to make sure she is mobile enough to go home -Hopeful for discharge tomorrow Urinary retention -Discontinue Queen and monitor for further retention Hypothyroidism -Continue home levothyroxine -Continue home Liothyronine Essential hypertension -Continue home amlodipine -Continue home lisinopril Metastatic breast cancer -Continue letrozole -Follows with Dr. Centeno -Findings on MRI were discussed with him and all findings were chronic History of Posadas's esophagus -Continue on PPI History of TIA -Continue Plavix Vitamin D deficiency -Continue vitamin D supplementation Depression/insomnia -Continue home zolpidem -Continue fluoxetine DVT prophylaxis -Start enoxaparin CODE STATUS -Full code as verified Medications at Discharge Home Medications fluoxetine 40 mg capsule 40 mg PO DAILY 06/16/17 lisinopril 20 mg tablet 20 mg PO DAILY 09/25/20 levothyroxine 125 mcg tablet 112 mcg PO DAILY 30 days #27 tabs 06/11/21 hydrocodone-acetaminophen 5-325mg 5mg-325mg 1 tab PO Q6H PRN pain 07/16/22 alprazolam 0.5 mg tablet 0.5 mg PO DAILY PRN anxiety 07/21/22 letrozole 2.5 mg tablet 2.5 mg PO DAILY 02/16/24 amlodipine 5 mg tablet 5 mg PO QHS 04/30/24 clopidogrel 75 mg tablet 75 mg PO DAILY 04/30/24 esomeprazole magnesium 20 mg capsule,delayed release (Nexium) 20 mg PO DAILY 04/30/24 liothyronine 5 mcg tablet 5 mcg PO DAILY 05/21/24 zolpidem 10 mg tablet 10 mg PO QHS 05/21/24 acetaminophen 650 mg tablet,extended release 650 mg PO PRN ARTHRITIS 08/25/24 cholecalciferol (vitamin D3) 50 mcg (2,000 unit) capsule 50 mcg PO DAILY 08/25/24 ferrous sulfate 325 mg (65 mg iron) tablet (Feosol) 325 mg PO DAILY 08/25/24 multivitamin (Daily Multi-Vitamin tablet) 1 tab PO DAILY 08/25/24 psyllium husk 3.4 gram/5.4 gram oral powder (Metamucil) 1 tsp PO DAILY 08/25/24 acetaminophen 500 mg tablet 1,000 mg (2 x 500 mg) PO Q8 #0 tabs 08/29/24 lidocaine 5 % topical patch 1 patch topical DAILY #30 ea 08/29/24 oxycodone 5 mg tablet 5 mg PO Q4H PRN PRN Pain Score 4-10 5 days #30 tabs 08/29/24 sennosides 8.6 mg tablet (senna) 8.6 mg PO BID #14 tabs 08/29/24 Hospital Course Operations - (Epidural injection) Procedures - (CT lumbar spine/MRI lumbar spine/lumbar x-ray postprocedure) Summary of Care Provided Minutes Spent on Discharge: 30 Hospital Course: Mrs. Bishop is a 79-year-old white female who presented to emergency department [facility] on 08/25/2024 with a chief complaint of acute on chronic back pain with spasms and the inability to ambulate. She has ahistory of chronic low back pain with previous [facility] She then had a discectomy done there in 2020. She also has a history of metastatic breast cancer and follows with Dr. Cetneno. She has been stable on trastuzumab and letrozole recently. Patient reported about midmorning on the day of presentation she developed significant bilateral low back muscle spasms which were new for her. She indicated she has chronic pain but never as bad lately. Spasms made it difficult for her to ambulate to the point where she was unable to move. Vital signs on presentation showed temperature 98.9, heart rate 4, respiratory 16, blood pressure was 148/129 with a repeat of 164/86 and pulse ox 100% on room air. CBC showed a mild leukocytosis with 13.2 and a chronic stable anemia with a hemoglobin 11.9 otherwise unremarkable. Chemistry panel was overtly unremarkable. CT of the lumbar spine showed no acute lumbar fracture with previous noted multilevel degenerative central and neural foraminal stenosis. Given her inability to ambulate she was admitted to the hospital as observation and was started on muscle relaxants, scheduled Tylenol, lidocaine patch, p.o. oxycodone, IV Dilaudid, and was given Decadron. A lumbar MRI was pursued and showed previous spinal fusion at L4-L5, multilevel degenerative changes, mild spondylolisthesis and a T2 weighted hypointense lesion at T6 vertebral body lesion which had previously been noted and followed by Dr. Centeno. 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 Given findings onMRI a consultation to orthopedicsurgery was placed and no further surgical intervention was recommended however it was recommended she have a back injection with pain management. This was performed on 08/28/2024. Following injection she was doing quite well. And was able to move around independentlywith a walker. It is felt that she is appropriate for outpatient physical therapy at the time of discharge. Patient did have some urinary retention at the time of admission and was getting Queen catheter. This was able to be removed and patient was able to void without difficulty prior to discharge. Patient is follow-up with pain management as indicated on her discharge paperwork. Her primary care physician within next 1 to 2 weeks and continue to follow-up with oncology as previously recommended. Patient was able to discharge, stable condition on 08/29/2024. Prescriptions forpain medication an d lidocaine patches were written for the time of discharge. Discharge diagnoses: Acute on chronic back pain Urinary retention-resolved Hypothyroidism Essential hypertension Metastatic breast cancer Chronic anemia History of Posadas's esophagus History of TIA Vitamin D deficiency Depression Insomnia Physical Exam Narrative Patient states she is feeling overall better since her injection. Much better since admission. Still having some pain. Plan is for outpatient therapy. Anxious to go home. Const alert, oriented x3, no apparent distress, average body habitus, no limitations and well nourished Constitutional Narrative: Elderly, white female, sitting up in chair at the bedside, appears comfortable, nontoxic, at the bedside General Appearance: cooperative, comfortable, well kempt and well developed Exam Limitations: no limitations Nutritional Appearance: overweight HEENT normocephalic and head/scalp atraumatic HEENT Narrative: Mallampati 2, no thrush Resp normal respiratory effort, normal air movement, no retractions, no use of accessory muscles and clear to auscultation bilaterally Auscultation: Negative for rales, rhonchi or wheezes Cardio regular rate, regular rhythm, S1 normal heart sound, S2 normal heart sound, no murmurs, no rub, no gallops and no clicks GI normal to inspection, nondistended, normoactive bowel sounds, soft to palpation and non-tender Back/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 Please refer to the operative notefor further details. Reading Location: [facility] D/C Instructions Discharge Diet: Low fat / Low cholesterol Discharge Activity: Return to Normal Activity and Use Walker DC O2, CPAP, BIPAP Needs Home O2 Discharge instructions: No Meaningful Use Info Meaningful Use Meaningful Use Diagnoses (Choose all that apply): None applicable Ischemic Stroke Statin Dosing Therapy Reference: STATIN DOSE THERAPY REFERENCE: * Patients > 75 years receive moderate or high dose statin therapy. * Patients 75 years or YOUNGER should receive HIGH intensity statin dose unless contraindicated. You will be required to document reason for non-treatment if statin daily dose does not meet guidelines. HIGH DOSE STATIN THERAPY DAILY Atorvastatin > than or = to 40 mg Rosuvastatin > than or = to 20 mg Amlodipine + Atorvastatin > than or = to 2.5/40 mg Ezetimibe + Simvastatin 10/80 mg Simvastatin 80mg Discharge Plan Admission Admit Date/Time: 08/25/24 16:23 Primary Reason for Your Visit: Intractable back pain Attending Provider: Carolyn Hatch Primary Care Provider: Tami Chang Consulting Providers: Buzz Alford; Wendy Calle; Jin Rosales; Dominik Carlos Discharge Orders/Prescriptions Prescriptions: New acetaminophen 500 mg Tablet 1,000 mg PO Q8 Qty: 0 0RF lidocaine 5 % Adhesive Patch,Medicated 1 patch topical DAILY Qty: 30 1RF Protocol: *Topical Application Instructions APPLICATION INSTRUCTIONS: low back oxycodone 5 mg Tablet 5 mg PO Q4H PRN PRN (Reason: Pain Score 4-10) 5 Days Qty: 30 0RF sennosides [senna] 8.6 mg Tablet 8.6 mg PO BID Qty: 14 0RF Continued fluoxetine 40 mg capsule 40 mg PO DAILY levothyroxine 125 mcg tablet 112 mcg PO DAILY 30 Days Qty: 27 Patient Comments: PT CANNOT TAKE GENERIC, CAN ONLY BRING BRAND, FAMILY CAN BRING FROM HOME. clopidogrel 75 mg tablet 75 mg PO DAILY hydrocodone-acetaminophen 5-325 mg tablet 1 tab PO Q6H PRN (Reason: pain) alprazolam 0.5 mg tablet 0.5 mg PO DAILY PRN (Reason: anxiety) letrozole 2.5 mg tablet 2.5 mg PO DAILY amlodipine 5 mg tablet 5 mg PO QHS esomeprazole magnesium [Nexium] 20 mg capsule,delayed release(DR/EC) 20 mg PO DAILY lisinopril 20 MG tablet 20 mg PO DAILY liothyronine 5 mcg tablet 5 mcg PO DAILY zolpidem 10 mg tablet 10 mg PO QHS Metamucil 3.4 gram/5.4 gram powder 1 tsp PO DAILY Rx Instructions: mix into at least 4 oz water or juice before administering cholecalciferol (vitamin D3) 50 mcg (2,000 unit) capsule 50 mcg PO DAILY multivitamin [Daily Multi-Vitamin] Tablet 1 tab PO DAILY ferrous sulfate [Feosol] 325 mg (65 mg iron) tablet 325 mg PO DAILY acetaminophen 650 mg tablet extended release 650 mg PO PRN Referrals / Follow Up: Wendy Calle MD [Med Staff - Active Staff] - 09/26/24 1:45 pm Tami Chang MD [Primary Care Provider] - In 1 Week Christiano Centeno DO [Med Staff - Active Staff] - 09/12/24 10:00 am (09/11/2024 Patient Labs Scheduled ) Disposition Disposition (needs filled in before D/C Order can be placed): Home, Self Care Charges/Coding Visit Charges Inpatient E&M: 08696 Disch Hosp 08/29/24 1333 Cosigner Signature (if applicable): CC: Dr. Tami Chang MD; Dr. Wendy Calle MD; Dr. Carolyn Hatch DO; Dr. Christiano Centeno DO~ Signed [facility]03-26-2025 [facility] Medical Records Department [address] [place] [address] Discharge Summary 08/29/24 1236 MR#: [id number] Acct: [id number] Name: DANETTE BISHOP Rep #: [id number] : 1945 79 From: Carolyn Hatch DO PCP: Dr. Tami Chang MD Status:ADM JASPREET [place] [facility] [id number] Providers Date of Admission: 08/25/24 Date of Discharge: 08/29/24 Primary Care Physician: Dr. Tami Chang MD Consultations 08/25/24 18:11 Consult: Pain Management Routine Consulting Provider: Wendy Calle Reason for Consult: acute on chronic low back pain w/ spasms EMERGENT Consult: No MD Notified: Yes Date Notified: 08/25/24 Time Notified: 17:52 Method of Notification: Text 08/27/24 14:33 Consult: Orthopedics Routine Consulting Provider: Jin Rosales Reason for Consult: Lumbar pain EMERGENT Consult: No Notified: Yes Date Notified: 08/27/24 Time Notified: 14:34 Method of Notification: Verbal 08/27/24 14:39 Consult: Pain Management Routine Consulting Provider: Wendy Calle Reason for Consult: Lumbar pain nonradicular EMERGENT Consult: No Notified: Yes Date Notified: 08/27/24 Time Notified: 14:39 Method of Notification: Verbal Reason For Visit: INTRACTABLE BACK PAIN W/INABILITY TO Diagnosis Discharge Diagnosis (1) Spondylolisthesis, lumbar region: Status: Acute Code(s): M43.16 - Spondylolisthesis, lumbar region (2) Acute on chronic low back pain: Status: Chronic Code(s): M54.50 - Low back pain, unspecified; G89.29 - Other chronic pain (3) Fusion of lumbar spine: Status: Acute Code(s): M43.26 - Fusion of spine, lumbar region (4) Unable to ambulate: Status: Acute Code(s): R26.2 - Difficulty in walking, not elsewhere classified (5) Acute urinary retention: Status: Acute Code(s): R33.8 - Other retention of urine Plan Acute on chronic back pain -History of spondylolisthesis and fusion of lumbar spine -MRI done this admission which shows no acute processes but does showed severe degeneration at L3 and L4 along with facet arthrosis -Plan is for epidural injections today -Will need therapy to evaluate prior to discharge to make sure she is mobile enough to go home -Hopeful for discharge tomorrow Urinary retention -Discontinue Queen and monitor for further retention Hypothyroidism -Continue home levothyroxine -Continue home Liothyronine Essential hypertension -Continue home amlodipine -Continue home lisinopril Metastatic breast cancer -Continue letrozole -Follows with Dr. Centeno -Findings on MRI were discussed with him and all findings were chronic History of Posadas's esophagus -Continue on PPI History of TIA -Continue Plavix Vitamin D deficiency -Continue vitamin D supplementation Depression/insomnia -Continue home zolpidem -Continue fluoxetine DVT prophylaxis -Start enoxaparin CODE STATUS -Full code as verified Medications at Discharge Home Medications fluoxetine 40 mg capsule 40 mg PO DAILY 06/16/17 lisinopril 20 mg tablet 20 mg PO DAILY 09/25/20 levothyroxine 125 mcg tablet 112 mcg PO DAILY 30 days #27 tabs 06/11/21 hydrocodone-acetaminophen 5-325mg 5mg-325mg 1 tab PO Q6H PRN pain 07/16/22 alprazolam 0.5 mg tablet 0.5 mg PO DAILY PRN anxiety 07/21/22 letrozole 2.5 mg tablet 2.5 mg PO DAILY 02/16/24 amlodipine 5 mg tablet 5 mg PO QHS 04/30/24 clopidogrel 75 mg tablet 75 mg PO DAILY 04/30/24 esomeprazole magnesium 20 mg capsule,delayed release (Nexium) 20 mg PO DAILY 04/30/24 liothyronine 5 mcg tablet 5 mcg PO DAILY 05/21/24 zolpidem 10 mg tablet 10 mg PO QHS 05/21/24 acetaminophen 650 mg tablet,extended release 650 mg PO PRN ARTHRITIS 08/25/24 cholecalciferol (vitamin D3) 50 mcg (2,000 unit) capsule 50 mcg PO DAILY 08/25/24 ferrous sulfate 325 mg (65 mg iron) tablet (Feosol) 325 mg PO DAILY 08/25/24 multivitamin (Daily Multi-Vitamin tablet) 1 tab PO DAILY 08/25/24 psyllium husk 3.4 gram/5.4 gram oral powder (Metamucil) 1 tsp PO DAILY 08/25/24 acetaminophen 500 mg tablet 1,000 mg (2 x 500 mg) PO Q8 #0 tabs 08/29/24 lidocaine 5 % topical patch 1 patch topical DAILY #30 ea 08/29/24 oxycodone 5 mg tablet 5 mg PO Q4H PRN PRN Pain Score 4-10 5 days #30 tabs 08/29/24 sennosides 8.6 mg tablet (senna) 8.6 mg PO BID #14 tabs 08/29/24 Hospital Course Operations - (Epidural injection) Procedures - (CT lumbar spine/MRI lumbar spine/lumbar x-ray postprocedure) Summary of Care Provided Minutes Spent on Discharge: 30 Hospital Course: Mrs. Bishop is a 79-year-old white female who presented to emergency department [facility] on 08/25/2024 with a chief complaint of acute on chronic back pain with spasms and the inability to ambulate. She has a history of chronic low back pain with previous L4-L5 lumbar fusion that was done at the [facility] in 2019. She then had a disc (more content not included)...[facility]03-25-2025 Consult note Author Naveen Ren [facility] Note Date/Time August 28, 2024 7:3 7pm [facility] Medical Records Department [address] [place] [address] Anesthesia Postop Eval II 08/28/241936 MR#: [id number] Acct: [id number] Name: DANETTE BISHOP Rep #:[id number] : 1945 79 From: Naveen Ren MD PCP: Dr. Tami Chang MD Status:ADM JASPREET Y Race: C Location: [place] [address] Anesthesia Postop Eval I Sum Postop Eval Completion status Anesthesia document: Postop Eval 1 completed: Yes Anesthesia Postop Eval I Summary Anesthesia Postop Eval I Summary: Anesthesia Postop Eval I: Assessment Summary Airway patent Yes 08/28/24 15:26 GENERAL MERCHANDISE MANAGER.[email or web address] Spontaneous unlabored Yes 08/28/24 15:26 GENERAL MERCHANDISE MANAGER.LMIL respirations Mental status Awake 08/28/24 15:26 GENERAL MERCHANDISE MANAGER.LMIL nausea No 08/28/24 15:26 GENERAL MERCHANDISE MANAGER.LMIL Vomiting No 08/28/24 15:26 GENERAL MERCHANDISE MANAGER.LMIL Anesthesia Postop Eval I: Fluid Summary Crystalloid volume administer 10 08/28/24 15:26 GENERAL MERCHANDISE MANAGER.LMIL (ml) Colloids volume administered ( ml) Blood Product volume administered (ml) Total IV fluid infused 10 08/28/24 15:26 GENERAL MERCHANDISE MANAGER.[email or web address] Anesthesia Postop Eval I: Summary Notes Anesthesia Complication No 08/28/24 15:26 GENERAL MERCHANDISE MANAGER.[email or web address] Anesthesia Complication Comment: Post-operative progress note Anesthesia: Postop Eval II Evaluation Mental status: Awake and Calm Pain Level: 3 nausea: No Vomiting: No Complications Anesthesia Complication: No 08/28/241936 <Electronically signed by Naveen tang MD> Date _ Naveen Ren MD Cosigner Signature: Date CC: ~ Signed [facility] Work Phone: 1(188) 748-754903-25-2025 Progress note Author Carolyn Hatch [facility] Note Date/Time August 28, 2024 6:[address] [facility] Medical Records Department [address] [place] [address] Progress Note - Hospitalist 08/28/24 1845 MR#: [id number] Acct: [id number] Name: DANETTE BISHOP Rep #:[id number] : 1945 79 From: Carolyn Hatch DO PCP: Dr. Tami Chang MD Status:ADM JASPREET Location: [place] [id number] Reason for Visit Reason for Visit: Diagnoses Other chronic pain (08/25/24) Spondylolisthesis, lumbar region (08/25/24) Fusion of spine, lumbar region (08/25/24) Low back pain, unspecified (08/25/24) Muscle spasm of back (08/25/24) Difficulty in walking, not elsewhere classified (08/25/24) Subjective Subjective Back injection today. Scheduled for the afternoon. Still has not seen therapy today so we will have to hold off on discharge. Remove Queen. Objective Data Objective Data Vital Signs: Vital Signs Temp Pulse Resp BP Pulse Ox O2 Del Method 97.8 F 61 18 157/67 H 100 Room Air 08/28/24 15:50 08/28/24 15:50 08/28/24 15:50 08/28/24 15:50 08/28/24 15:50 08/28/24 15:50 Oxygen Delivery Method Room Air Weight: 68.51 kg Body Mass Index (BMI) 28.5 Intake & Output: Intake and Output for Last 24 Hours 08/26/24 08/27/24 08/28/24 23:59 23:59 23:59 Intake Total 650 / 650 120 / 120 Output Total 1050 / 1050 1100 / 1250 1150 / 1150 Balance -400 / -400 -980 / -1130 -1150 / -1150 Lab / Micro Data 08/28/24 08:56 08/26/24 05:25 Labs: Laboratory Results - last 24 hr 08/28/24 08:56: WBC 9.3, RBC 3.98 L, Hgb 11.9 L, Hct 35.1 L, MCV 88.2, MCH 29.9,MCHC 33.9, RDW Std Deviation 48.7 H, RDW Coeff of James 15.1 H, Plt Count 364, MPV9.5, TSH 0.122 L Radiography Diagnostic Testing: Radiology Impression Lumbar Spine X-Ray 08/28/24 14:30 IMPRESSION: Fluoroscopic guidance used intraoperatively. Please refer to the operative notefor further details. Reading Location: [facility] Physical Exam Const alert, oriented x3, no apparent distress and well nourished HEENT head/scalp atraumatic and moist oral mucous membranes Head and Scalp: normocephalic Neuro oriented x3, moves all extremities and no focal motor deficits Psych affect normal Psych Narrative: Very pleasant, interacts appropriately Assessment & Plan Assessment/Plan (1) Spondylolisthesis, lumbar region: (2) Acute on chronic low back pain: (3) Fusion of lumbar spine: (4) Unable to ambulate: (5) Acute urinary retention: PLAN: Plan Acute on chronic back pain -History of spondylolisthesis and fusion of lumbar spine -MRI done this admission which shows no acute processes but does showed severe degeneration at L3 and L4 along with facet arthrosis -Plan is for epidural injections today -Will need therapy to evaluate prior to discharge to make sure she is mobile enough to go home -Hopeful for discharge tomorrow Urinary retention -Discontinue Queen and monitor for further retention Hypothyroidism -Continue home levothyroxine -Continue home Liothyronine Essential hypertension -Continue home amlodipine -Continue home lisinopril Metastatic breast cancer -Continue letrozole -Follows with Dr. Centeno -Findings on MRI were discussed with him and all findings were chronic History of Posadas's esophagus -Continue on PPI History of TIA -Continue Plavix Vitamin D deficiency -Continue vitamin D supplementation Depression/insomnia -Continue home zolpidem -Continue fluoxetine DVT prophylaxis -Start enoxaparin CODE STATUS -Full code as verified Charges/Coding Visit Charges Inpatient E&M: 58163 Subs Hosp L1 08/28/24 2821 <Electronically signed by Carolyn Hatch DO> Cosigner Signature (if applicable): CC: ~ Signed [facility] Work Phone: 1(764) 884-606003-25-2025 Consult note [facility] Medical Records Department [address] [place] [address] Anesthesia Postop Eval II 08/28/241936 MR#: [id number] Acct: [id number] Name: DANETTE BISHOP Rep #:[id number] : 1945 79 From: Naveen Ren MD PCP: Dr. Tami Chang MD Status:ADM JASPREET Y Race: C Location: [place] [address] Anesthesia Postop Eval I Sum Postop Eval Completion status Anesthesia document: Postop Eval 1 completed: Yes Anesthesia Postop Eval I Summary Anesthesia Postop Eval I Summary: Anesthesia Postop Eval I: Assessment Summary Airway patent Yes 08/28/24 15:26 GENERAL MERCHANDISE MANAGER.[email or web address] Spontaneous unlabored Yes 08/28/24 15:26 GENERAL MERCHANDISE MANAGER.LMIL respirations Mental status Awake 08/28/24 15:26 GENERAL MERCHANDISE MANAGER.LMIL nausea No 08/28/24 15:26 GENERAL MERCHANDISE MANAGER.LMIL Vomiting No 08/28/24 15:26 GENERAL MERCHANDISE MANAGER.LMIL Anesthesia Postop Eval I: Fluid Summary Crystalloid volume administer 10 08/28/24 15:26 GENERAL MERCHANDISE MANAGER.LMIL (ml) Colloids volume administered ( ml) Blood Product volume administered (ml) Total IV fluid infused 10 08/28/24 15:26 GENERAL MERCHANDISE MANAGER.LMIL Anesthesia Postop Eval I: Summary Notes Anesthesia Complication No 08/28/24 15:26 GENERAL MERCHANDISE MANAGER.LMIL Anesthesia Complication Comment: Post-operative progress note Anesthesia: Postop Eval II Evaluation Mental status: Awake and Calm Pain Level: 3 nausea: No Vomiting: No Complications Anesthesia Complication: No 08/28/241936 clyde YOUNG> Date _ Naveen Ren MD Cosigner Signature: Date CC: ~ Signed [facility]03-25-2025 Progress note [facility] Medical Records Department [address] [place] [address] Progress Note - Hospitalist 08/28/24 184 MR#: [id number] Acct: [id number] Name: DANETTE BISHOP Rep #:[id number] : 1945 79 From: Carolyn Hatch DO PCP: Dr. Tami Chang MD Status:ADM JASPREET Location: MS3 DR968-3 Reason for Visit Reason for Visit: Diagnoses Other chronic pain (08/25/24) Spondylolisthesis, lumbar region (08/25/24) Fusion of spine, lumbar region (08/25/24) Low back pain, unspecified (08/25/24) Muscle spasm of back (08/25/24) Difficulty in walking, not elsewhere classified (08/25/24) Subjective Subjective Back injection today. Scheduled for the afternoon. Still has not seen therapy today so we will haveto hold off on discharge. Remove Queen. Objective Data Objective Data Vital Signs: Vital Signs Temp Pulse Resp BP Pulse Ox O2 Del Method 97.8 F 61 18 157/67 H 100 Room Air 08/28/24 15:50 08/28/24 15:50 08/28/24 15:50 08/28/24 15:50 08/28/24 15:50 08/28/24 15:50 Oxygen Delivery Method Room Air Weight: 68.51 kg Body Mass Index (BMI) 28.5 Intake & Output: Intake and Output for Last 24 Hours 08/26/24 08/27/24 08/28/24 23:59 23:59 23:59 Intake Total 650 / 650 120 / 120 Output Total 1050 / 1050 1100 / 1250 1150 / 1150 Balance -400 / -400 -980 / -1130 -1150 / -1150 Lab / Micro Data 08/28/24 08:56 08/26/24 05:25 Labs: Laboratory Results - last 24 hr 08/28/24 08:56: WBC 9.3, RBC 3.98 L, Hgb 11.9 L, Hct 35.1 L, MCV 88.2, MCH 29.9,MCHC 33.9, RDW Std Deviation 48.7 H, RDW Coeff of James 15.1 H, Plt Count 364, MPV9.5, TSH 0.122 L Radiography Diagnostic Testing: Radiology Impression Lumbar Spine X-Ray 08/28/24 14:30 IMPRESSION: Fluoroscopic guidance used intraoperatively. Please refer to the operative notefor further details. Reading Location: [facility] Physical Exam Const alert, oriented x3, no apparent distress and well nourished HEENT head/scalp atraumatic and moist oral mucous membranes Head and Scalp: normocephalic Neuro oriented x3, moves all extremities and no focal motor deficits Psych affect normal Psych Narrative: Very pleasant, interacts appropriately Assessment & Plan Assessment/Plan (1) Spondylolisthesis, lumbar region: (2) Acute on chronic low back pain: (3) Fusion of lumbar spine: (4) Unable to ambulate: (5) Acute urinary retention: PLAN: Plan Acute on chronic back pain -History of spondylolisthesis and fusion of lumbar spine -MRI done this admission which shows no acute processes but does showed severe degeneration at L3 and L4 along with facet arthrosis -Plan is for epidural injections today -Will need therapy to evaluate prior to discharge to make sure she is mobile enough to go home -Hopeful for discharge tomorrow Urinary retention -Discontinue Queen and monitor for further retention Hypothyroidism -Continue home levothyroxine -Continue home Liothyronine Essential hypertension -Continue home amlodipine -Continue home lisinopril Metastatic breast cancer -Continue letrozole -Follows with Dr. Centeno -Findings on MRI were discussed with him and all findings were chronic History of Posadas's esophagus -Continue on PPI History of TIA -Continue Plavix Vitamin D deficiency -Continue vitamin D supplementation Depression/insomnia -Continue home zolpidem -Continue fluoxetine DVT prophylaxis -Start enoxaparin CODE STATUS -Full code as verified Charges/Coding Visit Charges Inpatient E&M: 23282 Subs Hosp L1 08/28/24 1858 Cosigner Signature (if applicable): CC: ~ Signed [facility]03-25-2025 Progress note Author Jin Rosales [facility] Note Date/Time August 28, 2024 4:1 8pm [facility] Medical Records Department [address] [place] [address] Progress Note - Orthopedic 08/28/24 1616 MR#: [id number] Acct: [id number] Name: DANETTE BISHOP Rep #:[id number] : 1945 79 From: Jin Rosales MD PCP: Dr. Tami Chang MD Status:ADM JASPREET Location: AL3 LL322-3 Subjective Subjective Saw patient in room 320 around noon today. She is able to stand and take a few steps with PT yesterday. She is n.p.o. right now for planned pain management injections. Her pain is slightly better but she has not been able to sit up as yet. She continues to be in a Queen. Objective Data Objective Data Vital Signs: Vital Signs Temp Pulse Resp BP Pulse Ox O2 Del Method 97.8 F 61 18 157/67 H 100 Room Air 08/28/24 15:50 08/28/24 15:50 08/28/24 15:50 08/28/24 15:50 08/28/24 15:50 08/28/24 15:50 Oxygen Delivery Method Room Air Weight: 151 lb 0.636 oz Body Mass Index (BMI) 28.5 Intake & Output: Intake and Output for Last 24 Hours 08/26/24 08/27/24 08/28/24 23:59 23:59 23:59 Intake Total 650 / 650 120 / 120 Output Total 1050 / 1050 1100 / 1250 800 / 800 Balance -400 / -400 -980 / -1130 -800 / -800 Lab / Micro Data 08/28/24 08:56 08/26/24 05:25 Labs: Laboratory Results - last 24 hr 08/28/24 08:56: WBC 9.3, RBC 3.98 L, Hgb 11.9 L, Hct 35.1 L, MCV 88.2, MCH 29.9,MCHC 33.9, RDW Std Deviation 48.7 H, RDW Coeff of James 15.1 H, Plt Count 364, MPV9.5, TSH 0.122 L Radiography Diagnostic Testing: Radiology Impression Lumbar Spine X-Ray 08/28/24 14:30 IMPRESSION: Fluoroscopic guidance used intraoperatively. Please refer to the operative notefor further details. Reading Location: [facility] Physical Exam Narrative Neurological exam of the lower extremity shows 5X5 power. Normal sensation across all dermatomes. Patient was able to complete bed mobility to roll to oneside, physical examination of the back shows a well-healed midline and paramedian vertical incision, barely incision of forward lateral lumbar interbody fusion at L4-5 was not visible on the left. midline tenderness or paraspinal tenderness. Const alert, oriented x3 and no apparent distress Assessment & Plan Assessment/Plan (1) Fusion of lumbar spine: (2) Spondylolisthesis, lumbar region: PLAN: Plan Again reviewed patient's CT scan of the lumbar spine done last Tuesday as well as MRI done during this admission. These show prior L4-5 fusion which is well- healed and has only left-sided pedicle screws. L3-4 shows postsurgical changes of right laminotomy. Severe disc degeneration at L3-4 noticed along with facet arthrosis. L5-S1 shows grade 1 spondylolisthesis with facet arthrosis. No upright x-rays available done recently. Discussed with Dr. Calle yesterday evening, as there is very low likelihood of discitis or any infectious pathology as the MRI was with contrast and did not show any significant imaging findings of infectious pathology. Okay to proceed with injections from my perspective. At this time do not recommend any surgical options however if in the future she continues to have this pain with no benefit with the injection surgical options can be discussed at that time. Charges/Coding Visit Charges Inpatient E&M: 83196 Subs Hosp L2 08/28/24 1618 <Electronically signed by Jin Rosales MD> Cosigner Signature (if applicable): CC: ~ Signed [facility] Work Phone: 1(791) 764-536903-25-2025 Consult note Author Yoli Patterson [facility] Note Date/Time August 28, 2024 3:2 6pm [facility] Medical Records Department [address] [place] [address] Anesthesia Postop Eval I 08/28/24 1525 MR#: [id number] Acct: [id number] Name: DANETTE BISHOP Rep #:[id number] : 1945 79 From: Yoli Patterson CRNA PCP: Dr. Tami Chang MD Status:ADM JASPREET Y Race: C Location: [place] [id number] -[id number] Anesthesia: Postop Eval I Current Vital Signs Temperature: 96.9 F Pulse Rate: 60 Blood Pressure: 187/75 Respiratory Rate: 16 Pulse Ox: 96 Oxygen Delivery Method: Room Air Assessment Airway patent: Yes Spontaneous unlabored respirations: Yes Mental status: Awake nausea: No Vomiting: No Anesthesia Complication: No Fluid Hydration Crystalloid volume administer (ml): 10 Total IV fluid infused: 10 Progress Note Anesthesia document: Postop Eval 1 completed: Yes 08/28/24 1526 <Electronically signed by Yoli santizo CRNA> Date _ Yoli Patterson [employer] MANAGER Cosigner Signature: Date CC: ~ Signed [facility] Work Phone: 1(964) 968-883903-25-2025 Consult note Author Naveen [facility] Note Date/Time August 28, 2024 2:2 2pm [facility] Medical Records Department [address] [place] [id number] Pre-Anesthesia Evaluation 08/28/24 1358 MR#: [id number] Acct: [id number] Name: DANETTE BISHOP Rep #:[id number] : 1945 79 From: Naveen Ren MD PCP: Dr. Tami Chang MD Status:ADM JASPREET Y Race: C Location: [place] 138050 - ASA Classification* ASA Classification ASA Classification: 3 Assessment & Plan Anesthesia* Anesthesia Assessment Anesthesia Assessment: Discussed sedation and/or anesthesia options, risks, benefits, and alternatives with patient/parents/legal guardian/POA. Questions invited. The patient/parents/legal guardian/POA seems to understand and agrees to proceedwith anesthesia plan. Reviewed the physical assessment, medical history, allergy history and patient home medications list prior to surgery/procedure/anesthetic and documented any changes. Performed airway and anesthesia risk assessments. Anesthesia Type Anesthesia Type: MAC History Source History Obtained from:: Patient and Chart Anesthesia Focused Assessment* Temperature: 97.7 F Pulse Rate: 66 Blood Pressure: 158/66 Respiratory Rate: 18 Pulse Ox: 100 Oxygen Delivery Method: Room Air Airway Assessment Mouth opens: >3 cm Mallampati Score: I Teeth Condition: Dentures (Patient has full upper and lower dentures.) Neck Range of motion (ROM): Limited ROM (Slight decrease in extension) Focused Labs Anesthesia Preop lab: CBC WBC 9.3 K/mm3 (4.4-11.0) 08/28/24 08:56 08/28/24 RBC 3.98 M/mm3 (4.2-5.4) L 08/28/24 08:56 08/28/24 Hgb 11.9 g/dL (12.0-15.0) L 08/28/24 08:56 5 Hct 35.1 % (37-47) L 08/28/24 08:56 08/28/24 Plt Count 364 K/mm3 (150-450) 08/28/24 08:56 08/28/24 CHEMISTRY Potassium 4.4 mmol/L (3.3-5.1) 08/26/24 05:25 08/26/24 Sodium 135 mmol/L (133-145) 08/26/24 05:25 08/26/24 Magnesium 2.0 mg/dL (1.8-2.4) 12/21/16 10:25 12/21/16 Phosphorus 3.7 mg/dL (2.5-4.9) 11/07/19 09:54 11/07/19 BUN 14 mg/dL (4-19) 08/26/24 05:25 08/26/24 Creatinine 0.68 mg/dL (0.70-1.20) L 08/26/24 05:25 Glucose 121 mg/dL (70-99) H 08/26/24 05:25 08/26/24 TSH 0.122 uIU/mL (0.300-4.200) L 08/28/24 08:56 COAG PT 13.4 SECONDS (11.7-14.9) 12/25/18 15:07 Pre-Assessment Diagnosis/Proposed Procedure Planned Operative Procedure(s): Lumbar facet block. Anesthesia History Anesthesia History - activities director: Anesthesia History - activities director Hx Hospitalization Yes: MASECTOMY 06/2023 -No complications 05/21/24 09:03 Any Problems With Anesthesia Slow to wake up after 2017 surgery 05/21/24 09:03 Cholinesterase deficiency No 05/21/24 09:03 You/Your Family Experience No 05/21/24 09:03 fever (hyperthermia) with Relationship Recent Exposure to Contagious No 05/23/24 12:40 Disease Does patient have nerve No 05/21/24 09:03 stimulator Patient instructed to have device shut off --Does patient have Pacemaker or ICD? When Was Last Pacemaker Check QUESTION #4 FULL TEXT: You/Your Family Experience fever (hyperthermia) with Anesthesia Last Oral Intake Last Oral intake: Last Oral Intake NPO since Meds taken in AM with sips of water? Meds patient instructed to take am of surgery Any additional information?: Yes NPO since: 00:00 Meds taken in AM with sips of water?: Yes PONV PONV - activities director: PONV - activities director Female HX of Motion Sickness HX of N/V After Surgery Non-Smoker Duration of Surgery greater than 60 minutes Number of Risk Factors PONV Score Height & Weight Height & Weight: Anesthesia: Height & Weight Height 5 ft 1 in 08/25/24 18:12 Weight: 68.51 kg 08/25/24 18:12 Body Mass Index (BMI) 28.5 08/25/24 18:12 Respiratory Assessment Respiratory Assessment - activities director: Respiratory Tract Infection Hx - activities director Hx Respiratory Tract Infection No 05/21/24 09:03 STOP Sleep Apnea STOP Sleep Apnea - activities director: STOP Sleep Apnea - activities director Hx Hypertension Yes 08/27/24 14:23 Hx Sleep Apnea Yes: unable to use cpap 08/25/24 18:42 CPAP No 08/25/24 18:42 BIPAP No 08/25/24 18:42 Do you snore loudly (louder than talking or can be heard Do you often feel tired/ fatigued/ sleepy during daytime? Has anyone observed you stop breathing during sleep? STOP Results Positive 08/25/24 18:42 QUESTION #5 FULL TEXT : Do you snore loudly (louder than talking or can be heard through closed doors)? 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 Specify any problems Hx of Preganancy in last 3 No 08/25/24 18:42 Months Nurse Filling Out Transfusion ACOEY 08/25/24 18:42 & Questions: Date: 08/25/24 08/25/24 18:42 Time: 18:45 08/25/24 18:42 Patient unable to answer at this time (ie. confused, unrespo /Reproduction History /Reproductive History - activities director: /Reproductive Hx- activities director Hx Now Gestational Age (in weeks): EDC: Hx Hx Para Hx Section SAB Active Medications Active Medications: Current Medications Generic Name Dose Route Start Last Admin Trade Name Freq PRN Reason Stop Dose Admin Acetaminophen 1,000 mg 08/25/24 22:00 08/28/24 12:09 Acetaminophen 500 Mg Tablet PO Not Given Q8 WILLIAM Alprazolam 0.5 mg 08/26/24 09:19 Alprazolam 0.5 Mg Tablet PO TID PRN PRN ANXIETY Amlodipine Besylate 5 mg 08/25/24 22:00 08/27/24 21:22 Amlodipine 5 Mg Tablet PO 5 mg QHS [facility] Administration Protocol Cholecalciferol 50 mcg 08/26/24 10:00 08/28/24 08:30 Cholecalciferol (Vit D3) 25 Mcg Tablet (1,000 Units) PO Not Given DAILY [facility] Clopidogrel Bisulfate 75 mg 08/26/24 10:00 08/28/24 08:29 Clopidogrel Bisulfate 75 Mg Tablet PO Not Given DAILY WILLIAM Cyclobenzaprine HCl 5 mg 08/26/24 11:00 08/28/24 12:09 Cyclobenzaprine Hcl 5 Mg Tablet PO Not Given TID WILLIAM Dexamethasone Sodium Phosphate 4 mg 08/26/24 12:00 08/28/24 11:47 Dexamethasone 4 Mg/Ml Vial IV 4 mg Q6 WILLIAM Administration Ferrous Sulfate 325 mg 08/26/24 12:00 08/28/24 09:29 Ferrous Sulfate 325 Mg Tablet PO Not Given DAILY@1200 [facility] Fluoxetine HCl 40 mg 08/26/24 10:00 08/28/24 08:29 Fluoxetine Hcl 40 Mg Capsule PO Not Given DAILY WILLIAM Hydromorphone HCl 0.5 mg 08/25/24 18:11 08/25/24 18:26 Hydromorphone 0.5 Mg/0.5 Ml Syringe IV 0.5 mg Q4H PRN PRN Administration Pain Score 6-10 Sodium Chloride 100 mls @ 15 mls/hr 08/25/24 18:15 IV .Q6H40M PRN Saline Flush Sodium Chloride 100 mls @ 15 mls/hr 08/25/24 18:15 IV .Q6H40M PRN Additional IVPB Infusion Letrozole 2.5 mg 08/26/24 10:00 08/28/24 08:41 Letrozole 2.5 Mg Tablet PO 2.5 mg DAILY WILLIAM Administration Levothyroxine Sodium 112 mcg 08/26/24 06:00 08/28/24 05:24 Levothyroxine 112 Mcg Tablet PO 112 mcg DAILY@0600 WILLIAM Administration Lidocaine 1 patch 08/25/24 18:11 08/28/24 08:29 Lidocaine 5% Patch TOPICAL Not Given DAILY WILLIAM Protocol Liothyronine Sodium 5 mcg 08/26/24 06:00 08/28/24 05:24 Liothyronine 5 Mcg Tablet PO 5 mcg DAILY@0600 WILLIAM Administration Lisinopril 20 mg 08/26/24 10:00 08/28/24 08:41 Lisinopril 20 Mg Tablet PO 20 mg DAILY WILLIAM Administration Protocol Multivitamins 1 tablet 08/26/24 08:00 08/28/24 08:29 Multivitamins,Therapeutic [facility]t [facility] Ondans[facility] 4 mg 08/25/24 18:11 Ondansetron 4 Mg/2 Ml Vial IV Q8H PRN PRN NAUSEA/VOMITING Oxycodone HCl 5 mg 08/25/24 18:11 08/26/24 19:57 Oxycodone 5 Mg Tablet PO 5 mg Q4H PRN PRN Administration Pain Score 4-10 Oxycodone HCl 10 mg 08/26/24 11:00 08/28/24 08:41 Oxycodone Hcl Cr 10 Mg Tablet PO 10 mg BID WILLIAM Administration Pantoprazole Sodium 20 mg 08/26/24 10:00 08/28/24 08:29 Pantoprazole Sodium 20 Mg Tablet PO Not Given DAILY WILLIAM Polyethylene Glycol 17 gm 08/25/24 18:11 Polyethylene Glycol 3350 17 Gm Packet PO DAILY PRN constipation Senna 1 tablet 08/25/24 22:00 08/28/24 08:29 Senna Tablet PO Not Given BID WILLIAM Sodium Chloride 10 - 40 ml 08/25/24 18:15 08/28/24 11:47 0.9 % Nacl (Sterile) Posiflush 10 Ml IV 10 ml UD PRN Administration Port access or dressing change Sodium Chloride 10 - 40 ml 08/25/24 18:15 08/28/24 00:13 0.9% Saline Lock 10 Ml Syringe IV 10 ml UD PRN Administration Port-a-Cath (VAD)/R Port Flush Zolpidem Tartrate 10 mg 08/25/24 18:17 08/27/24 21:32 Zolpidem Tartrate 5 Mg Tablet PO 10 mg QHS PRN Administration INSOMNIA PFSH Medical History Breast cancer Liver cancer Wears glasses Post-menopausal Cancer Depression Anxiety Alcohol use Thyroid disease Anemia Easy bruising Excessive bleeding Back pain TIA (transient ischemic attack) History of hiatal hernia History of ulceration History of IBS Gastric reflux Former smoker Shortness of breath on exertion History of echocardiogram Hypertension History of irregular heartbeat History of rheumatic fever LUQ pain 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 Epigastric abdominal pain Liver metastasis 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 Wears dentures Sleep apnea History of TIA (transient ischemic attack) History of thyroid disease Back pain Neck pain Severe headache Stomach ulcer History of cancer Arthritis History of hypertension Medical History no medical history Home Medications ?Medication ?Instructions ?Recorded ?Last Taken ?Type fluoxetine 40 mg capsule 40 mg PO DAILY 06/16/1708/05 History lisinopril 20 mg tablet 20 mg PO DAILY 09/25/2008/05 History levothyroxine 125 mcg tablet 112 mcg PO DAILY 30 days #27 tabs 06/11/21 08/28/24 History hydrocodone-acetaminophen 5-325mg 1 tab PO Q6H PRN josé miguel n 07/16/22 08/25/24 History 5mg-325mg alprazolam 0.5 mg tablet 0.5 mg PO DAILY PRN anxiety 07/21/22 Unknown History letrozole 2.5 mg tablet 2.5 mg PO DAILY 02/16/24 History amlodipine 5 mg tablet 5 mg PO QHS 04/30/24 5 History clopidogrel 75 mg tablet 75 mg PO DAILY 04/30/2408/05 History esomeprazole magnesium 20 mg 20 mg PO DAILY 04/30/24 0 08/25/24 History capsule,delayed release (Nexium) liothyronine 5 mcg tablet 5 mcg PO DAILY 05/21/2408/05 History zolpidem 10 mg tablet 10 mg PO QHS 05/21/24 History acetaminophen 650 mg 650 mg PO PRN ARTHRITIS 08/0508/28/24 History tablet,extended release cholecalciferol (vitamin D3) 50 50 mcg PO DAILY 08/24/24 History mcg (2,000 unit) capsule ferrous sulfate 325 mg (65 mg 325 mg PO DAILY 08/25/24 08/24/24 History iron) tablet (Feosol) multivitamin (Daily Multi-Vitamin 1 tab PO DAILY 08/2508/24/24 History tablet) psyllium husk 3.4 gram/5.4 gram 1 tsp PO DAILY 5 08/24/24 History oral powder (Metamucil) Allergy/AdvReac Type Severity Reaction Status Date / Time shellfish derived Allergy Severe throat Verified 08/25/24 13:29 swelling adhesive tape AdvReac Rash Verified 08/25/24 13:29 Family History Mother Colon cancer passed from recurrence Thyroid disorder Father Hypertension CVA (cerebral vascular accident) Sister Breast cancer, Onset Age: 87 Aunt Colon cancer paternal Family History no significant family his Surgical History History of lumpectomy History of back surgery History of thyroid surgery Surgical History no surgical history Social History household members: spouse Smoking Status: Former smoker how long ago did patient quit smoking: >50 years ago; off and on for 2 years, socially only alcohol intake: current alcohol intake frequency: 0-2 drinks per day Alcohol type: wine details: socially substance use type: does not use additional social history: denies vaping, denies marijuana, denies edibles, denies aspirin and ibuprofen use Review of Systems (Anesthesia) ROS Narrative System reviewed and no additional complaints, except as documented. 08/28/24 1422 <Electronically signed by Naveen tang MD> Date _ Naveen Ren MD Cosigner Signature: Date CC: ~ Signed [facility] Work Phone: [phone] 115-622803-25-2025 Progress note [facility] Medical Records Department [address] [place] [address] Progress Note - Orthopedic 08/28/24 1616 MR#: [id number] Acct: [id number] Name: DANETTE BISHOP Rep #:[id number] : 1945 79 From: Jin Rosales MD PCP: Dr. Tami Chang MD Status:ADM JASPREET Location[place] [facility] [place] Subjective Subjective Saw patient in room 320 around noon today. She is able to stand and take a few steps with PT yesterday. She is n.p.o. right now for planned pain management injections. Her pain is slightly better but she has not been able to sit up as yet. She continues to be in a Queen. Objective Data Objective Data Vital Signs: Vital Signs Temp Pulse Resp BP Pulse Ox O2 Del Method 97.8 F 61 18 157/67 H 100 Room Air 08/28/24 15:50 08/28/24 15:50 08/28/24 15:50 08/28/24 15:50 08/28/24 15:50 08/28/24 15:50 Oxygen Delivery Method Room Air Weight: 151 lb 0.636 oz Body Mass Index (BMI) 28.5 Intake & Output: Intake and Output for Last 24 Hours 08/26/24 08/27/24 08/28/24 23:59 23:59 23:59 Intake Total 650 / 650 120 / 120 Output Total 1050 / 1050 1100 / 1250 800 / 800 Balance -400 / -400 -980 / -1130 -800 / -800 Lab / Micro Data 08/28/24 08:56 08/26/24 05:25 Labs: Laboratory Results - last 24 hr 08/28/24 08:56: WBC 9.3, RBC 3.98 L, Hgb 11.9 L, Hct 35.1 L, MCV 88.2, MCH 29.9,MCHC 33.9, RDW Std Deviation 48.7 H, RDW Coeff of James 15.1 H, Plt Count 364, MPV9.5, TSH 0.122 L Radiography Diagnostic Testing: Radiology Impression Lumbar Spine X-Ray 08/28/24 14:30 IMPRESSION: Fluoroscopic guidance used intraoperatively. Please refer to the operative notefor further details. Reading Location: [facility] Physical Exam Narrative Neurological exam of the lower extremity shows 5X5 power. Normal sensation across all dermatomes. Patient was able to complete bed mobility to roll to oneside, physical examination of the back shows a well-healed midline and paramedian vertical incision, barely incision of forward lateral lumbar int erbody fusion at L4-5 was not visible on the left. midline tenderness or paraspinal tenderness. Const alert, oriented x3 and no apparent distress Assessment & Plan Assessment/Plan (1) Fusion of lumbar spine: (2) Spondylolisthesis, lumbar region: PLAN: Plan Again reviewed patient's CT scan of the lumbar spine done last Tuesday as well as MRI done during this admission. These show prior L4-5 fusion which is well- healed and has only left-sided pedicle screws. L3-4 shows postsurgical changes of right laminotomy. Severe disc degeneration at L3-4 noticed along with facet arthrosis. L5-S1 shows grade 1 spondylolisthesis with facet arthrosis. No upright x-rays available done recently. Discussed with Dr. Calle yesterday evening, as there is very low likelihood of discitis or any infectious pathology as the MRI was with contrast and did not show any significant imaging findings of infectious pathology. Okay to proceed with injections from my perspective. At this time do not recommend any surgical options however if in the future she continues to have this pain with no benefit with the injection surgical options can be discussed at that time. Charges/Coding Visit Charges Inpatient E&M: 28523 Subs Hosp L2 08/28/24 7282 Cosigner Signature (if applicable): CC: ~ Signed [facility]03-25[facility]2025 Radiology Diagnostic study note [facility] Imaging Services [address] [place] [address] [id number] Lumbar Spine 2 or 3 Views MR#: [id number] Acct: [id number] Name: DANETTE BISHOP Rep #: [id number] : 1945 F 79 From: Jeri Vides MD PCP: Dr. Tami Chang MD Status: ADM JASPREET Study:Lumbar Spine 2 or 3 Views Date of Exam: 08/28/24 Exam# [id number] Ordering Dr: Jane Calle MD EXAM: XR Lumbosacral Spine, 2 or 3 Views CLINICAL INDICATION: L4/L5 AND L5/S1 BLOCK TECHNIQUE: Frontal and lateral views of the lumbar spine and sacrum. COMPARISON: No relevant prior studies available. FINDINGS: VERTEBRAE: Unremarkable. No acute fracture. Normal alignment. SACRUM/COCCYX: Unremarkable as visualized. No acute fracture. DISC SPACES: No acute findings. No significant narrowing. SOFT TISSUES: Unremarkable. OTHER FINDINGS: Fluoroscopic guidance was used intraoperatively. 6 images wereobtained. Total fluoroscopy time 11.4 seconds. Total radiation dose 2.29 mGy. RAD/Lumbar Spine 2 or 3 Views IMPRESSION: Fluoroscopic guidance used intraoperatively. Please refer to the operative notefor further details. Reading Location: [facility] CC: Dr. Tami Chang MD; Dr. Wendy Calle MD ~ Home Care Liaison: Signed [facility]03-25-2025 Consult note [facility] Medical Records Department [address] [place] [address] Anesthesia Postop Eval I 08/28/24 1525 MR#: [id number] Acct: [id number] Name: DANETTE BISHOP Rep #:[id number] : 1945 79 From: Yoli Patterson GENERAL MERCHANDISE MANAGER PCP: Dr. Tami Chang MD Status:ADM JASPREET Joiner Race: C Location: [place] [address] Anesthesia: Postop Eval I Current Vital Signs Temperature: 96.9 F Pulse Rate: 60 Blood Pressure: 187/75 Respiratory Rate: 16 Pulse Ox: 96 Oxygen Delivery Method: Room Air Assessment Airway patent: Yes Spontaneous unlabored respirations: Yes Mental status: Awake nausea: No Vomiting: No Anesthesia Complication: No Fluid Hydration Crystalloid volume administer (ml): 10 Total IV fluid infused: 10 Progress Note Anesthesia document: Postop Eval 1 completed: Yes 08/28/24 1526 c GENERAL MERCHANDISE MANAGER> Date _ Yoli Patterson GENERAL MERCHANDISE MANAGER Cosigner Signature: Date CC: ~ Signed [facility]03-25-2025 Consult note [facility] Medical Records Department [address] [place] [address] Pre-Anesthesia Evaluation 08/28/24 1358 MR#: [id number] Acct: [id number] Name: BISHOPDANETTE LUIZ Rep #:[id number] : 1945 79 From: Naveen Ren MD PCP: Dr. Tami Chang MD Status:ADM JASPREET Y Race: C Location: MS3 MS320 -[id number] ASA Classification* ASA Classification ASA Classification: 3 Assessment & Plan Anesthesia* Anesthesia Assessment Anesthesia Assessment: Discussed sedation and/or anesthesia options, risks, benefits, and alternatives with patient/parents/legal guardian/POA. Questions invited. The patient/parents/legal guardian/POA seems to understand and agrees to proceedwith anesthesia plan. Reviewed the physical assessment, medical history, allergy history and patient home medications list prior to surgery/procedure/anesthetic and documented any changes. Performed airway and anesthesia risk assessments. Anesthesia Type Anesthesia Type: MAC History Source History Obtained from:: Patient and Chart Anesthesia Focused Assessment* Temperature: 97.7 F Pulse Rate: 66 Blood Pressure: 158/66 Respiratory Rate: 18 Pulse Ox: 100 Oxygen Delivery Method: Room Air Airway Assessment Mouth opens: >3 cm Mallampati Score: I Teeth Condition: Dentures (Patient has full upper and lower dentures.) Neck Range of motion (ROM): Limited ROM (Slight decrease in extension) Focused Labs Anesthesia Preop lab: CBC WBC 9.3 K/mm3 (4.4-11.0) 08/28/24 08:56 08/28/24 RBC 3.98 M/mm3 (4.2-5.4) L 08/28/24 08:56 08/28/24 Hgb 11.9 g/dL (12.0-15.0) L 08/28/24 08:56 5 Hct 35.1 % (37-47) L 08/28/24 08:56 08/28/24 Plt Count 364 K/mm3 (150-450) 08/28/24 08:56 08/28/24 CHEMISTRY Potassium 4.4 mmol/L (3.3-5.1) 08/26/24 05:25 08/26/24 Sodium 135 mmol/L (133-145) 08/26/24 05:25 08/26/24 Magnesium 2.0 mg/dL (1.8-2.4) 12/21/16 10:25 12/21/16 Phosphorus 3.7 mg/dL (2.5-4.9) 11/07/19 09:54 11/07/19 BUN 14 mg/dL (4-19) 08/26/24 05:25 08/26/24 Creatinine 0.68 mg/dL (0.70-1.20) L 08/26/24 05:25 Glucose 121 mg/dL (70-99) H 08/26/24 05:25 08/26/24 TSH 0.122 uIU/mL (0.300-4.200) L 08/28/24 08:56 COAG PT 13.4 SECONDS (11.7-14.9) 12/25/18 15:07 Pre-Assessment Diagnosis/Proposed Procedure Planned Operative Procedure(s): Lumbar facet block. Anesthesia History Anesthesia History - activities director: Anesthesia History - activities director Hx Hospitalization Yes: MASECTOMY 06/2023 -No complications 05/21/24 09:03 Any Problems With Anesthesia Slow to wake up after 2017 surgery 05/21/24 09:03 Cholinesterase deficiency No 05/21/24 09:03 You/Your Family Experience No 05/21/24 09:03 fever (hyperthermia) with Relationship Recent Exposure to Contagious No 05/23/24 12:40 Disease Does patient have nerve No 05/21/24 09:03 stimulator Patient instructed to have device shut off --Does patient have Pacemaker or ICD? When Was Last Pacemaker Check QUESTION #4 FULL TEXT: You/Your Family Experience fever (hyperthermia) with Anesthesia Last Oral Intake Last Oral intake: Last Oral Intake NPO since Meds taken in AM with sips of water? Meds patient instructed to take am of surgery Any additional information?: Yes NPO since: 00:00 Meds taken in AM with sips of water?: Yes PONV PONV - activities director: PONV - activities director Female HX of Motion Sickness HX of N/V After Surgery Non-Smoker Duration of Surgery greater than 60 minutes Number of Risk Factors PONV Score Height & Weight Height & Weight: Anesthesia: Height & Weight Height 5 ft 1 in 08/25/24 18:12 Weight: 68.51 kg 08/25/24 18:12 Body Mass Index (BMI) 28.5 08/25/24 18:12 Respiratory Assessment Respiratory Assessment - activities director: Respiratory Tract Infection Hx - activities director Hx Respiratory Tract Infection No 05/21/24 09:03 STOP Sleep Apnea STOP Sleep Apnea - activities director: STOP Sleep Apnea - activities director Hx Hypertension Yes 08/27/24 14:23 Hx Sleep Apnea Yes: unable to use cpap 08/25/24 18:42 CPAP No 08/25/24 18:42 BIPAP No 08/25/24 18:42 Do you snore loudly (louder than talking or can be heard Do you often feel tired/ fatigued/ sleepy during daytime? Has anyone observed you stop breathing during sleep? STOP Results Positive 08/25/24 18:42 QUESTION #5 FULL TEXT : Do you snore loudly (louder than talking or can be heard through closeddoors)? 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 Specify any problems Hx of Preganancy in last 3 No 08/25/24 18:42 Months Nurse Filling Out Transfusion ACOEY 08/25/24 18:42 & Questions: Date: 08/25/24 08/25/24 18:42 Time: 18:45 08/25/24 18:42 Patient unable to answer at this time (ie. confused, unrespo /Reproduction History /Reproductive History - activities director: /Reproductive Hx- activities director Hx Now Gestational Age (in weeks): EDC: Hx Hx Para Hx Section SAB Active Medications Active Medications: Current Medications Generic Name Dose Route Start Last Admin Trade Name Freq PRN Reason Stop Dose Admin Acetaminophen 1,000 mg 08/25/24 22:00 08/28/24 12:09 Acetaminophen 500 Mg Tablet PO Not Given Q8 WILLIAM Alprazolam 0.5 mg 08/26/24 09:19 Alprazolam 0.5 Mg Tablet PO TID PRN PRN ANXIETY Amlodipine Besylate 5 mg 08/25/24 22:00 08/27/24 21:22 Amlodipine 5 Mg Tablet PO 5 mg QHS [facility] Administration Protocol Cholecalciferol 50 mcg 08/26/24 10:00 08/28/24 08:30 Cholecalciferol (Vit D3) 25 Mcg Tablet (1,000 Units) PO Not Given DAILY [facility] Clopidogrel Bisulfate 75 mg 08/26/24 10:00 08/28/24 08:29 Clopidogrel Bisulfate 75 Mg Tablet PO Not Given DAILY [facility] Cyclobenzaprine HCl 5 mg 08/26/24 11:00 08/28/24 12:09 Cyclobenzaprine Hcl 5 Mg Tablet PO Not Given TID [facility] Dexamethasone Sodium Phosphate 4 mg 08/26/24 12:00 08/28/24 11:47 Dexamethasone 4 Mg/Ml Vial IV 4 mg Q6 [facility] Administration Ferrous Sulfate 325 mg 08/26/24 12:00 08/28/24 09:29 Ferrous Sulfate 325 Mg Tablet PO Not Given DAILY@1200 [facility] Fluoxetine HCl 40 mg 08/26/24 10:00 08/28/24 08:29 Fluoxetine Hcl 40 Mg Capsule PO Not Given DAILY [facility] Hydromorphone HCl 0.5 mg 08/25/24 18:11 08/25/24 18:26 Hydromorphone 0.5 Mg/0.5 Ml Syringe IV 0.5 mg Q4H PRN PRN Administration Pain Score 6-10 Sodium Chloride 100 mls @ 15 mls/hr 08/25/24 18:15 IV .Q6H40M PRN Saline Flush Sodium Chloride 100 mls @ 15 mls/hr 08/25/24 18:15 IV .Q6H40M PRN Additional IVPB Infusion Letrozole 2.5 mg 08/26/24 10:00 08/28/24 08:41 Letrozole 2.5 Mg Tablet PO 2.5 mg DAILY [facility] Administration Levothyroxine Sodium 112 mcg 08/26/24 06:00 08/28/24 05:24 Levothyroxine 112 Mcg Tablet PO 112 mcg DAILY@0600 [facility] Administration Lidocaine 1 patch 08/25/24 18:11 08/28/24 08:29 Lidocaine 5% Patch TOPICAL Not Given DAILY [facility] Protocol Liothyronine Sodium 5 mcg 08/26/24 06:00 08/28/24 05:24 Liothyronine 5 Mcg Tablet PO 5 mcg DAILY@0600 [facility] Administration Lisinopril 20 mg 08/26/24 10:00 08/28/24 08:41 Lisinopril 20 Mg Tablet PO 20 mg DAILY [facility] Administration Protocol Multivitamins 1 tablet 08/26/24 08:00 08/28/24 08:29 Multivitamins,Therapeutic Tablet PO Not Given DAILY [facility] Ondansetron HCl 4 mg 08/25/24 18:11 Ondansetron 4 Mg/2 Ml Vial IV Q8H PRN PRN NAUSEA/VOMITING Oxycodone HCl 5 mg 08/25/24 18:11 08/26/24 19:57 Oxycodone 5 Mg Tablet PO 5 mg Q4H PRN PRN Administration Pain Score 4-10 Oxycodone HCl 10 mg 08/26/24 11:00 08/28/24 08:41 Oxycodone Hcl Cr 10 Mg Tablet PO 10 mg BID WILLIAM Administration Pantoprazole Sodium 20 mg 08/26/24 10:00 08/28/24 08:29 Pantoprazole Sodium 20 Mg Tablet PO Not Given DAILY [facility] Polyethylene Glycol 17 gm 08/25/24 18:11 Polyethylene Glycol 3350 17 Gm Packet PO DAILY PRN constipation Senna 1 tablet 08/25/24 22:00 08/28/24 08:29 Senna Tablet PO Not Given BID WILLIAM Sodium Chloride 10 - 40 ml 08/25/24 18:15 08/28/24 11:47 0.9 % Nacl (Sterile) Posiflush 10 Ml IV 10 ml UD PRN Administration Port access or dressing change Sodium Chloride 10 - 40 ml 08/25/24 18:15 08/28/24 00:13 0.9% Saline Lock 10 Ml Syringe IV 10 ml UD PRN Administration Port-a-Cath (VAD)/R Port Flush Zolpidem Tartrate 10 mg 08/25/24 18:17 08/27/24 21:32 Zolpidem Tartrate 5 Mg Tablet PO 10 mg QHS PRN Administration INSOMNIA PFSH Medical History Breast cancer Liver cancer Wears glasses Post-menopausal Cancer Depression Anxiety Alcohol use Thyroid disease Anemia Easy bruising Excessive bleeding Back pain TIA (transient ischemic attack) History of hiatal hernia History of ulceration History of IBS Gastric reflux Former smoker Shortness of breath on exertion History of echocardiogram Hypertension History of irregular heartbeat History of rheumatic fever LUQ pain 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 Epigastric abdominal pain Liver metastasis 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 Wears dentures Sleep apnea History of TIA (transient ischemic attack) History of thyroid disease Back pain Neck pain Severe headache Stomach ulcer History of cancer Arthritis History of hypertension Medical History no medical history Home Medications ?Medication ?Instructions ?Recorded ?Last Taken ?Type fluoxetine 40 mg capsule 40 mg PO DAILY 06/16/1708/05 History lisinopril 20 mg tablet 20 mg PO DAILY 09/25/2008/05 History levothyroxine 125 mcg tablet 112 mcg PO DAILY 30 days #27 tabs 06/11/21 08/28/24 History hydrocodone-acetaminophen 5-325mg 1 tab PO Q6H PRN josé miguel n 07/16/22 08/25/24 History 5mg-325mg alprazolam 0.5 mg tablet 0.5 mg PO DAILY PRN anxiety 07/21/22 Unknown History letrozole 2.5 mg tablet 2.5 mg PO DAILY 02/16/24 History amlodipine 5 mg tablet 5 mg PO QHS 04/30/24 5 History clopidogrel 75 mg tablet 75 mg PO DAILY 04/30/2408/05 History esomeprazole magnesium 20 mg 20 mg PO DAILY 04/30/24 0 08/25/24 History capsule,delayed release (Nexium) liothyronine 5 mcg tablet 5 mcg PO DAILY 05/21/2408/05 History zolpidem 10 mg tablet 10 mg PO QHS 05/21/24 History acetaminophen 650 mg 650 mg PO PRN ARTHRITIS 08/0508/28/24 History tablet,extended release cholecalciferol (vitamin D3) 50 50 mcg PO DAILY 08/24/24 History mcg (2,000 unit) capsule ferrous sulfate 325 mg (65 mg 325 mg PO DAILY 08/25/24 08/24/24 History iron) tablet (Feosol) multivitamin (Daily Multi-Vitamin 1 tab PO DAILY 08/2508/24/24 History tablet) psyllium husk 3.4 gram/5.4 gram 1 tsp PO DAILY 5 08/24/24 History oral powder (Metamucil) Allergy/AdvReac Type Severity Reaction Status Date / Time shellfish derived Allergy Severe throat Verified 08/25/24 13:29 swelling adhesive tape AdvReac Rash Verified 08/25/24 13:29 Family History Mother Colon cancer passed from recurrence Thyroid disorder Father Hypertension CVA (cerebral vascular accident) Sister Breast cancer, Onset Age: 87 Aunt Colon cancer paternal Family History no significant family his Surgical History History of lumpectomy History of back surgery History of thyroid surgery Surgical History no surgical history Social History household members: spouse Smoking Status: Former smoker how long ago did patient quit smoking: >50 years ago; off and on for 2 years, socially only alcohol intake: current alcohol intake frequency: 0-2 drinks per day Alcohol type: wine details: socially substance use type: does not use additional social history: denies vaping, denies marijuana, denies edibles, denies aspirin and ibuprofen use Review of Systems (Anesthesia) ROS Narrative System reviewed and no additional complaints, except as documented. 08/28/24 1422 [email or web address]> Date _ Naveen Ren MD Cosigner Signature: Date CC: ~ Signed [facility]03-25-2025 Discharge summary Author Juan Nieves [facility] Note Date/Time August 27, 2024 11: 21pm [facility] Medical Records Department [address] [place] [address] Emergency Department Summary 08/25/24 MR#: [id number] Acct: [id number] Name: DANETTE BISHOP Rep #:[id number] : 1945 79 From: Juan Nieves MD PCP: Dr. Tami Chang MD Status:ADM JASPREET [place] [facility] [id number] HPI <ZARINA Lyons - Last Filed: 08/25/24 16:28> History of Present Illness Chief Complaint: Back Narrative Narrative: 79-year-old female with history of lumbar surgery x 2, metastatic breast cancer to liver woke up with bilateral lumbar pain and muscle spasms. She was able to get up and get to her recliner and took a hydrocodone but then had increased muscle spasms and was unable to get up. Her called the squad to bring her in. She has a history of 2 lumbar surgeries with the most recent being a discectomy 2020 at [facility]. She normally manages her pain with Tylenol or hydrocodone for breakthrough pain. She denies fall or injury. She has no pain radiating into the legs. No weakness or numbness or tingling or saddle anesthesia or bladder bowel incontinence. No fever or urinary symptoms. [facility] <ZARINA Lyons - Last Filed: 08/25/24 16:28> [facility] Medical History (Updated 08/27/24 @ 13:[address] Jin Rosales MD) Breast cancer Liver cancer Wears glasses Post-menopausal Cancer Depression Anxiety Alcohol use Thyroid disease Anemia Easy bruising Excessive bleeding Back pain TIA (transient ischemic attack) History of hiatal hernia History of ulceration History of IBS Gastric reflux Former smoker Shortness of breath on exertion History of echocardiogram Hypertension History of irregular heartbeat History of rheumatic fever LUQ pain 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 Epigastric abdominal pain Liver metastasis 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 Wears dentures Sleep apnea History of TIA (transient ischemic attack) History of thyroid disease Back pain Neck pain Severe headache Stomach ulcer History of cancer Arthritis History of hypertension Medical History no medical history Home Medications ?Medication ?Instructions ?Recorded ?Last Taken ?Type fluoxetine 40 mg capsule 40 mg PO DAILY 06/16/1708/05 History lisinopril 20 mg tablet 20 mg PO DAILY 09/25/2008/05 History levothyroxine 125 mcg tablet 112 mcg PO DAILY 30 days #27 tabs 06/11/21 08/25/24 History hydrocodone-acetaminophen 5-325mg 1 tab PO Q6H PRN josé miguel n 07/16/22 08/25/24 History 5mg-325mg alprazolam 0.5 mg tablet 0.5 mg PO DAILY PRN anxiety 07/21/22 Unknown History letrozole 2.5 mg tablet 2.5 mg PO DAILY 02/16/24 History amlodipine 5 mg tablet 5 mg PO QHS 04/30/24 5 History clopidogrel 75 mg tablet 75 mg PO DAILY 04/30/2408/05 History esomeprazole magnesium 20 mg 20 mg PO DAILY 04/30/24 0 08/25/24 History capsule,delayed release (Nexium) liothyronine 5 mcg tablet 5 mcg PO DAILY 05/21/2408/05 History zolpidem 10 mg tablet 10 mg PO QHS 05/21/24 History acetaminophen 650 mg 650 mg PO PRN ARTHRITIS 08/0508/24/24 History tablet,extended release cholecalciferol (vitamin D3) 50 50 mcg PO DAILY 08/24/24 History mcg (2,000 unit) capsule ferrous sulfate 325 mg (65 mg 325 mg PO DAILY 08/25/24 08/24/24 History iron) tablet (Feosol) multivitamin (Daily Multi-Vitamin 1 tab PO DAILY 08/2508/24/24 History tablet) psyllium husk 3.4 gram/5.4 gram 1 tsp PO DAILY 5 08/24/24 History oral powder (Metamucil) Allergy/AdvReac Type Severity Reaction Status Date / Time shellfish derived Allergy Severe throat Verified 08/25/24 13:29 swelling adhesive tape AdvReac Rash Verified 08/25/24 13:29 Family History Mother Colon cancer passed from recurrence Thyroid disorder Father Hypertension CVA (cerebral vascular accident) Sister Breast cancer, Onset Age: 87 Aunt Colon cancer paternal Surgical History History of lumpectomy History of back surgery History of thyroid surgery Surgical History no surgical history Social History household members: spouse Smoking Status: Former smoker how long ago did patient quit smoking: >50 years ago; off and on for 2 years, socially only alcohol intake: current alcohol intake frequency: 0-2 drinks per day Alcohol type: wine details: socially substance use type: does not use additional social history: denies vaping, denies marijuana, denies edibles, denies aspirin and ibuprofen use ROS <ZARINA Lyons - Last Filed: 08/25/24 16:28> ROS ED ROS Narrative Constitutional: Negative for fever, chills, malaise. CVS: Negative for chest pain. Respiratory: Negative for shortness of breath. GI: Negative for abdominal pain, nausea, vomiting. : Negative for dysuria, hematuria or frequency. EXAM <ZARINA Lyons - Last Filed: 08/25/24 16:28> Physical Exam Narrative Exam Narrative: CONST: Patient sitting in no acute distress. EYES: Normal inspection. NECK: Normal inspection. RESP: No respiratory distress, CTAB. CVS: Regular rate and rhythm, no murmur, no gallop. ABD: Soft and nontender, no guarding or rebound, nondistended. Back: Normal inspection. No midline step-offs or crepitus. SKIN: Color normal, no rash, warm, dry, intact. EXTREMITIES: Patient holding both hips flexed in bed for comfort. 5/5 strength in bilateral hip flexion and dorsiflexion and plantarflexion. Normal sensation. 2+ DP pulses. NEURO: Alert and answering questions appropriately. PSYCH: Normal affect. Const Vital Signs: 08/25/24 13:24 08/25/24 13:28 08/25/24 15:24 Temperature 98.9 F 98.9 F Temperature Source Oral Oral Pulse Rate 104 H 101 H 90 Respiratory Rate 15 16 14 Blood Pressure 148/129 H 148/129 H 164/86 H Blood Pressure Mean 135 135 112 Pulse Ox 100 100 98 Oxygen Delivery Method Room Air Room Air Room Air <Juan Nieves MD - Last Filed: 08/27/24 23:21> Physical Exam Const Vital Signs: 08/25/24 13:24 08/25/24 13:28 08/25/24 15:24 Temperature 98.9 F 98.9 F Temperature Source Oral Oral Pulse Rate 104 H 101 H 90 Respiratory Rate 15 16 14 Blood Pressure 148/129 H 148/129 H 164/86 H Blood Pressure Mean 135 135 112 Pulse Ox 100 100 98 Oxygen Delivery Method Room Air Room Air Room Air [facility] <ZARINA Lyons - Last Filed: 08/25/24 16:28> [facility] Narrative Medical decision making narrative: History gathered from: Patient, spouse, daughter Differential includes but not limited to muscle spasm, fracture, radiculopathy, cauda equina, UTI 79-year-old female with past medical history of remote lumbar surgeries, metastatic breast cancer presents with atraumatic bilateral low back pain and muscle spasms since this morning. She appears uncomfortable but nontoxic. Vital signs stable. Slightly tachycardic at 104 likely secondary to pain. Her abdomen is soft and nontender. Initially she could not sit up or roll over for me to examine her back and requested analgesia first. However she is able to move her lower extremities and MSPs are intact. She has no red flag signs concerning for cauda equina syndrome. She was ordered IV morphine, Zofran, and Valium. Labs show WBC of 13.2 and stable hemoglobin at 11.9. Chemistry panel overall unremarkable. CT scan shows lumbar degenerative changes but no acute fracture. It noted a distended bladder and constipation. Nurses did a straightcatheterization for urine sample and she had about 900 cc was of urine in her bladder. She states sometimes she has difficulty initiating urination but todayhad not been going because she did not want to get up due to her back spasms. UA is negative for infection. She has received a total of IV morphine 8 mg, IV Toradol 15 mg, p.o. Valium 5 mg. She had some relief but is unable to even fully sit up at the bedside with assistance and cannot ambulate. She will need admission secondary to intractable back pain and inability to ambulate. I discussed the case with the hospitalist for admission. Lab Data Attestation: I reviewed the patient's lab results. Labs: Laboratory Results - last 24 hr 08/25/24 08/25/24 13:59 15:05 WBC 13.2 H RBC 4.01 L Hgb 11.9 L Hct 34.8 L MCV 86.8 MCH 29.7 MCHC 34.2 RDW Std Deviation 48.9 H RDW Coeff of James 15.3 H Plt Count 358 MPV 9.5 Immature Gran % (Auto) 0.500 Neut % (Auto) 83.4 H Lymph % (Auto) 9.9 L [place] % (Auto) 5.5 Eos % (Auto) 0.2 Baso % (Auto) 0.5 Absolute Neuts (auto) 11.0 H Absolute Lymphs (auto) 1.31 Nucleated RBC % 0 Sodium 134 Potassium 3.3 Chloride 99 Carbon Dioxide 19.9 L Anion Gap 16 H BUN 14 Creatinine 0.65 L Estim Creat Clear Calc 52.28 Est GFR (MDRD) Non-Af 90 BUN/Creatinine Ratio 21.2 H Glucose 120 H Calcium 8.8 Urine Color Yellow Urine Clarity Clear Urine pH 8.0 Ur Specific [place] 1.010 Urine Protein Negative Urine Glucose (UA) Normal Urine Ketones 5 H Urine Occult Blood Negative Urine Nitrite Negative Urine Bilirubin Negative Urine Urobilinogen Normal Ur Leukocyte Esterase Negative Urine RBC 0-5 SEEN Urine WBC 0-5 SEEN Ur Squamous Epith Cells 0 SEEN Urine Bacteria 0 SEEN Urine Mucus 0 SEEN Radiography Diagnostic Testing: Clinical Impression(s) from Imaging Studies Lumbar Spine CT 08/25/24 13:45 IMPRESSION: 1. No acute lumbar fracture. 2. 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 Reading Location: [facility] <Juan Nieves MD - Last Filed: 08/27/24 23:21> [facility] Lab Data Labs: Laboratory Results - last 24 hr 08/25/24 08/25/24 13:59 15:05 WBC 13.2 H RBC 4.01 L Hgb 11.9 L Hct 34.8 L MCV 86.8 MCH 29.7 MCHC 34.2 RDW Std Deviation 48.9 H RDW Coeff of James 15.3 H Plt Count 358 MPV 9.5 Immature Gran % (Auto) 0.500 Neut % (Auto) 83.4 H Lymph % (Auto) 9.9 L [place] % (Auto) 5.5 Eos % (Auto) 0.2 Baso % (Auto) 0.5 Absolute Neuts (auto) 11.0 H Absolute Lymphs (auto) 1.31 Nucleated RBC % 0 Sodium 134 Potassium 3.3 Chloride 99 Carbon Dioxide 19.9 L Anion Gap 16 H BUN 14 Creatinine 0.65 L Estim Creat Clear Calc 52.28 Est GFR (MDRD) Non-Af 90 BUN/Creatinine Ratio 21.2 H Glucose 120 H Calcium 8.8 Urine Color Yellow Urine Clarity Clear Urine pH 8.0 Ur Specific [place] 1.010 Urine Protein Negative Urine Glucose (UA) Normal Urine Ketones 5 H Urine Occult Blood Negative Urine Nitrite Negative Urine Bilirubin Negative Urine Urobilinogen Normal Ur Leukocyte Esterase Negative Urine RBC 0-5 SEEN Urine WBC 0-5 SEEN Ur Squamous Epith Cells 0 SEEN Urine Bacteria 0 SEEN Urine Mucus 0 SEEN Radiography Diagnostic Testing: Clinical Impression(s) from Imaging Studies Lumbar Spine CT 08/25/24 13:45 IMPRESSION: 1. No acute lumbar fracture. 2. 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 Reading Location: [facility] Treatment and Re-Evaluation Narrative: Dr. Nieves: I have personally performed a face to face assessment of the patient and have reviewed the SAMMY Note. I performed a substantive portion of the visit including all aspects of the following. My garcia findings include: History is intractable low back pain and spasming. Exam is afebrile. Vital signs noted. Nontoxic-appearing. Cardiovascular examination regular rate and rhythm. Lungs clear to auscultation bilaterally anteriorly. Abdomen soft and nontender without guarding or rebound. Patient lying on cot with hips and knees flexed. Medical Decision Making: Analgesia. Check lumbar spine CT for fracture. Attempt to ambulate. Admit. Other additions or changes: [None] Discharge Plan Dx/Rx/DC Orders Clinical Impression: Back muscle spasm, Chronic back pain, Acute urinary retention, Unable to ambulate Disposition Disposition: Acute Care Hospital [facility] Discharge Date/Time: 08/25/24 17:38 What to do if you have Problems For any increased pain, shortness of breath, bleeding, nausea or vomiting, chest pain, or any unexpected problems, contact your Primary Care Provider. Call [employer] [facility] ([phone]) or report to the closest Emergency Room. Call 911 if necessary. 08/27/24 6424 <Electronically signed by Juan Nieves MD> Cosigner Signature (if applicable): 08/25/24 1628 <Electronically signed by Eveline SRINIVASAN> CC: Dr. Tami Chang MD ~ Signed [facility] Work Phone: [phone] 190-826103-24-2025 Discharge summary [facility] Medical Records Department [address] [place] [address] Emergency Department Summary 08/25/24 MR#: [id number] Acct: [id number] Name: DANETTE BISHOP Rep #:[id number] : 1945 79 From: Juan Nieves MD PCP: Dr. Tami Chang MD Status:ADM JASPREET Location: [facility] [id number] HPI History of Present Illness Chief Complaint: Back Narrative Narrative: 79-year-old female with history of lumbar surgery x 2, metastatic breast cancer to liver woke up with bilateral lumbar pain and muscle spasms. She was able to get up and get to her recliner and took a hydrocodone but then had increased muscle spasms and was unable to get up. Her called the squad to bring her in. She has a history of 2 lumbar surgeries with the most recent being a discectomy 2020 at [facility]. She normally manages her pain with Tylenol or hydrocodone for breakthrough pain. She denies fall or injury. She has no pain radiating into the legs. No weakness or numbness or tingling or saddle anesthesia or bladder bowel incontinence. No fever or urinary symptoms. [facility] Medical History (Updated 08/27/24 @ 13:[address] Jin Rosalse MD) Breast cancer Liver cancer Wears glasses Post-menopausal Cancer Depression Anxiety Alcohol use Thyroid disease Anemia Easy bruising Excessive bleeding Back pain TIA (transient ischemic attack) History of hiatal hernia History of ulceration History of IBS Gastric reflux Former smoker Shortness of breath on exertion History of echocardiogram Hypertension History of irregular heartbeat History of rheumatic fever LUQ pain 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 Epigastric abdominal pain Liver metastasis 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 Wears dentures Sleep apnea History of TIA (transient ischemic attack) History of thyroid disease Back pain Neck pain Severe headache Stomach ulcer History of cancer Arthritis History of hypertension Medical History no medical history Home Medications ?Medication ?Instructions ?Recorded ?Last Taken ?Type fluoxetine 40 mg capsule 40 mg PO DAILY 06/16/1708/05 History lisinopril 20 mg tablet 20 mg PO DAILY 09/25/2008/05 History levothyroxine 125 mcg tablet 112 mcg PO DAILY 30 days #27 tabs 06/11/21 08/25/24 History hydrocodone-acetaminophen 5-325mg 1 tab PO Q6H PRN josé miguel n 07/16/22 08/25/24 History 5mg-325mg alprazolam 0.5 mg tablet 0.5 mg PO DAILY PRN anxiety 07/21/22 Unknown History letrozole 2.5 mg tablet 2.5 mg PO DAILY 02/16/24 History amlodipine 5 mg tablet 5 mg PO QHS 04/30/24 5 History clopidogrel 75 mg tablet 75 mg PO DAILY 04/30/2408/05 History esomeprazole magnesium 20 mg 20 mg PO DAILY 04/30/24 0 08/25/24 History capsule,delayed release (Nexium) liothyronine 5 mcg tablet 5 mcg PO DAILY 05/21/2408/05 History zolpidem 10 mg tablet 10 mg PO QHS 05/21/24 History acetaminophen 650 mg 650 mg PO PRN ARTHRITIS 08/0508/24/24 History tablet,extended release cholecalciferol (vitamin D3) 50 50 mcg PO DAILY 08/24/24 History mcg (2,000 unit) capsule ferrous sulfate 325 mg (65 mg 325 mg PO DAILY 08/25/24 08/24/24 History iron) tablet (Feosol) multivitamin (Daily Multi-Vitamin 1 tab PO DAILY 08/2508/24/24 History tablet) psyllium husk 3.4 gram/5.4 gram 1 tsp PO DAILY 5 08/24/24 History oral powder (Metamucil) Allergy/AdvReac Type Severity Reaction Status Date / Time shellfish derived Allergy Severe throat Verified 08/25/24 13:29 swelling adhesive tape AdvReac Rash Verified 08/25/24 13:29 Family History Mother Colon cancer passed from recurrence Thyroid disorder Father Hypertension CVA (cerebral vascular accident) Sister Breast cancer, Onset Age: 87 Aunt Colon cancer paternal Surgical History History of lumpectomy History of back surgery History of thyroid surgery Surgical History no surgical history Social History household members: spouse Smoking Status: Former smoker how long ago did patient quit smoking: >50 years ago; off and on for 2 years, socially only alcohol intake: current alcohol intake frequency: 0-2 drinks per day Alcohol type: wine details: socially substance use type: does not use additional social history: denies vaping, denies marijuana, denies edibles, denies aspirin and ibuprofen use ROS ROS ED ROS Narrative Constitutional: Negative for fever, chills, malaise. CVS: Negative for chest pain. Respiratory: Negative for shortness of breath. GI: Negative for abdominal pain, nausea, vomiting. : Negative for dysuria, hematuria or frequency. EXAM Physical Exam Narrative Exam Narrative: CONST: Patient sitting in no acute distress. EYES: Normal inspection. NECK: Normal inspection. RESP: No respiratory distress, CTAB. CVS: Regular rate and rhythm, no murmur, no gallop. ABD: Soft and nontender, no guarding or rebound, nondistended. Back: Normal inspection. No midline step-offs or crepitus. SKIN: Color normal, no rash, warm, dry, intact. EXTREMITIES: Patient holding both hips flexed in bed for comfort. 5/5 strength in bilateral hip flexion and dorsiflexion and plantarflexion. Normal sensation. 2+ DP pulses. NEURO: Alert and answering questions appropriately. PSYCH: Normal affect. Const Vital Signs: 08/25/24 13:24 08/25/24 13:28 08/25/24 15:24 Temperature 98.9 F 98.9 F Temperature Source Oral Oral Pulse Rate 104 H 101 H 90 Respiratory Rate 15 16 14 Blood Pressure 148/129 H 148/129 H 164/86 H Blood Pressure Mean 135 135 112 Pulse Ox 100 100 98 Oxygen Delivery Method Room Air Room Air Room Air Physical Exam Const Vital Signs: 08/25/24 13:24 08/25/24 13:28 08/25/24 15:24 Temperature 98.9 F 98.9 F Temperature Source Oral Oral Pulse Rate 104 H 101 H 90 Respiratory Rate 15 16 14 Blood Pressure 148/129 H 148/129 H 164/86 H Blood Pressure Mean 135 135 112 Pulse Ox 100 100 98 Oxygen Delivery Method Room Air Room Air Room Air MDM MDM MDM Narrative Medical decision making narrative: History gathered from: Patient, spouse, daughter Differential includes but not limited to muscle spasm, fracture, radiculopathy, cauda equina, UTI 79-year-old female with past medical history of remote lumbar surgeries, metastatic breast cancer presents with atraumatic bilateral low back pain and muscle spasms since this morning. She appears uncomfortable but nontoxic. Vital signs stable. Slightly tachycardic at 104 likely secondary to pain. Her abdomen is soft and nontender. Initially she could not sit up or roll over for me to examine herback and requested analgesia first. However she is able to move her lower extremities and MSPs are intact. She has no red flag signs concerning for cauda equina syndrome. She was ordered IV morphine,Zofran, and Valium. Labs show WBC of 13.2 and stable hemoglobin at 11.9. Chemistry panel overall unr emarkable. CT scan shows lumbar degenerative changes but no acute fracture. It noted a distended bladder and constipation. Nurses did a straightcatheterization for urine sample and she had about 900 cc was of urine in her bladder. She states sometimes she has difficulty initiating urination but todayhad not been going because she did not want to get up due to her back spasms. UA is negative for infection. She has received a total of IV morphine 8 mg, IV Toradol 15 mg, p.o. Valium 5 mg. She had some relief but is unable to even fully sit up at the bedside with assistance and cannot ambulate. She will need admission secondary to intractable back pain and inability to ambulate. I discussed thecase with the hospitalist for admission. Lab Data Attestation: I reviewed the patient's lab results. Labs: Laboratory Results - last 24 hr 08/25/24 08/25/24 13:59 15:05 WBC 13.2 H RBC 4.01 L Hgb 11.9 L Hct 34.8 L MCV 86.8 MCH 29.7 MCHC 34.2 RDW Std Deviation 48.9 H RDW Coeff of James 15.3 H Plt Count 358 MPV 9.5 Immature Gran % (Auto) 0.500 Neut % (Auto) 83.4 H Lymph % (Auto) 9.9 L [place] % (Auto) 5.5 Eos % (Auto) 0.2 Baso % (Auto) 0.5 Absolute Neuts (auto) 11.0 H Absolute Lymphs (auto) 1.31 Nucleated RBC % 0 Sodium 134 Potassium 3.3 Chloride 99 Carbon Dioxide 19.9 L Anion Gap 16 H BUN 14 Creatinine 0.65 L Estim Creat Clear Calc 52.28 Est GFR (MDRD) Non-Af 90 BUN/Creatinine Ratio 21.2 H Glucose 120 H Calcium 8.8 Urine Color Yellow Urine Clarity Clear Urine pH 8.0 Ur Specific [place] 1.010 Urine Protein Negative Urine Glucose (UA) Normal Urine Ketones 5 H Urine Occult Blood Negative Urine Nitrite Negative Urine Bilirubin Negative Urine Urobilinogen Normal Ur Leukocyte Esterase Negative Urine RBC 0-5 SEEN Urine WBC 0-5 SEEN Ur Squamous Epith Cells 0 SEEN Urine Bacteria 0 SEEN Urine Mucus 0 SEEN Radiography Diagnostic Testing: Clinical Impression(s) from Imaging Studies Lumbar Spine CT 08/25/24 13:45 IMPRESSION: 1. No acute lumbar fracture. 2. 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 Reading Location: [facility] Lab Data Labs: Laboratory Results - last 24 hr 08/25/24 08/25/24 13:59 15:05 WBC 13.2 H RBC 4.01 L Hgb 11.9 L Hct 34.8 L MCV 86.8 MCH 29.7 MCHC 34.2 RDW Std Deviation 48.9 H RDW Coeff of James 15.3 H Plt Count 358 MPV 9.5 Immature Gran % (Auto) 0.500 Neut % (Auto) 83.4 H Lymph % (Auto) 9.9 L [place] % (Auto) 5.5 Eos % (Auto) 0.2 Baso % (Auto) 0.5 Absolute Neuts (auto) 11.0 H Absolute Lymphs (auto) 1.31 Nucleated RBC % 0 Sodium 134 Potassium 3.3 Chloride 99 Carbon Dioxide 19.9 L Anion Gap 16 H BUN 14 Creatinine 0.65 L Estim Creat Clear Calc 52.28 Est GFR (MDRD) Non-Af 90 BUN/Creatinine Ratio 21.2 H Glucose 120 H Calcium 8.8 Urine Color Yellow Urine Clarity Clear Urine pH 8.0 Ur Specific [place] 1.010 Urine Protein Negative Urine Glucose (UA) Normal Urine Ketones 5 H Urine Occult Blood Negative Urine Nitrite Negative Urine Bilirubin Negative Urine Urobilinogen Normal Ur Leukocyte Esterase Negative Urine RBC 0-5 SEEN Urine WBC 0-5 SEEN Ur Squamous Epith Cells 0 SEEN Urine Bacteria 0 SEEN Urine Mucus 0 SEEN Radiography Diagnostic Testing: Clinical Impression(s) from Imaging Studies Lumbar Spine CT 08/25/24 13:45 IMPRESSION: 1. No acute lumbar fracture. 2. 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 Reading Location: [id number] Treatment and Re-Evaluation Narrative: Dr. Nieves: I have personally performed a face to face assessment of the patient and have reviewed the SAMMY Note. I performed a substantive portion of the visit including all aspects of the following. My garcia findings include: History is intractable low back pain and spasming. Exam is afebrile. Vital signs noted. Nontoxic-appearing. Cardiovascular examination regular rate and rhythm. Lungs clear to auscultation bilaterally anteriorly. Abdomen soft and nontender without guarding or rebound. Patient lying on cot with hips and knees flexed. Medical Decision Making: Analgesia. Check lumbar spine CT for fracture. Attempt to ambulate. Admit. Other additions or changes: [None] Discharge Plan Dx/Rx/DC Orders Clinical Impression: Back muscle spasm, Chronic back pain, Acute urinary retention, Unable to ambulate Disposition Disposition: Acute Care Hospital [facility] Discharge Date/Time: 08/25/24 17:38 What to do if you have Problems For any increased pain, shortness of breath, bleeding, nausea or vomiting, chest pain, or any unexpected problems, contact your Primary Care Provider. Call [facility] ([phone]) or report to the closest Emergency Room. Call 911 if necessary. 08/27/24 2321 Cosigner Signature (if applicable): 08/25/24 1628 CC: Dr. Tami Chang MD ~ Signed [facility]03-24-2025 Progress note Author Dominik Carlos [facility] Note Date/Time August 27, 2024 2:4 3pm [facility] Medical Records Department [address] [place] [address] Progress Note - Hospitalist 08/27/24 1440 MR#: [id number] Acct: [id number] Name: DANETTE BISHOP Rep #:[id number] : 1945 79 From: Dominik Carlos DO PCP: Dr. Tami Chang MD Status:ADM JASPREET Location: [place] [address] Reason for Visit Reason for Visit: Diagnoses Other chronic pain (08/25/24) Spondylolisthesis, lumbar region (08/25/24) Fusion of spine, lumbar region (08/25/24) Low back pain, unspecified (08/25/24) Muscle spasm of back (08/25/24) Difficulty in walking, not elsewhere classified (08/25/24) Subjective Subjective Patient was seen and examined today, her back pain is improved from yesterday. She had an MRI performed today which did not show evidence of a ruptured disc, there is no evidence of any compression fracture either. I talked briefly with Dr. Cárdenas who saw her in consultation, he would like pain management to see her for possible back injection, I talked with Dr Hess about it and he will see her this afternoon Objective Data Objective Data Vital Signs: Vital Signs Temp Pulse Resp BP Pulse Ox O2 Del Method 97.9 F 77 18 125/56 H 99 Room Air 08/27/24 14:35 08/27/24 14:35 08/27/24 14:35 08/27/24 14:35 08/27/24 14:35 08/27/24 14:35 Oxygen Delivery Method Room Air Weight: 68.51 kg Body Mass Index (BMI) 28.5 Intake & Output: Intake and Output for Last 24 Hours 08/25/24 08/26/24 08/27/24 23:59 23:59 23:59 Intake Total 650 / 650 120 / 120 Output Total 1050 / 1050 700 / 700 Balance -400 / -400 -580 / -580 Lab / Micro Data 08/26/24 05:25 08/26/24 05:25 Radiography Diagnostic Testing: Radiology Impression Lumbar Spine MRI 08/27/24 09:00 IMPRESSION: 1. Previous spinal fusion at the L4-5 level. 2. Multilevel degenerative changes are present which are greatest at the postoperative transitional levels of L3-4 and L5-S1. Details of the degenerative changes in the body of the report. 3. Mild spondylolisthesis also present at the transitional levels. 4. A T2 hypointense lesion is incidentally noted in the T6 vertebral body on thescout views, which is indeterminate. Consider dedicated thoracic imaging for further assessment. Reading Location: [facility] Physical Exam Narrative alert, oriented x3, no apparent distress and average body habitus Constitutional Narrative: Patient appears younger than her stated age General Appearance: cooperative, well kempt and well developed Orientation / Consciousness: awake, oriented to person, oriented to place and oriented to time HEENT normocephalic, head/scalp atraumatic and moist oral mucous membranes Eyes PERRL, EOMs intact bilaterally and conjunctivae normal Neck supple, no JVD, thyroid normal and no carotid bruits General: trachea midline Resp normal respiratory effort, no retractions, no use of accessory muscles and clearto auscultation bilaterally Auscultation: Negative for rales, rhonchi or wheezes Cardio regular rate, regular rhythm, S1 normal heart sound, S2 normal heart sound, no murmurs, no rub and no gallops GI normal to inspection, nondistended, normoactive bowel sounds, soft to palpation,non-tender and non-distended Extremity no clubbing, cyanosis or edema Skin no rashes or lesions noted General Skin Exam: no breakdown Neuro oriented x3, CN's II-XII intact bilaterally, moves all extremities, no focal motor deficits and no sensory deficits noted Sensorium / Orientation: awake and alert Speech: speech normal Psych affect normal Assessment & Plan Assessment/Plan (1) Acute on chronic low back pain: PLAN: Plan 1. Uncontrolled lumbar back pain-etiology unclear at this point, patient was placed on OxyContin, she is on Flexeril, I have placed her on IV Decadron, patient will be seen by pain management for possible facet injection, continue PT and OT #2 essential hypertension-patient will remain on her home blood pressure medications #3 chronic depression patient is on Prozac #4 hypothyroidism-patient is on Synthroid #5 answer-patient is on letrozole #6 cerebrovascular disease-patient has a history of transient ischemic attacks, she is on Plavix Total clinical time spent by myself addressing the patient's medical issues, reviewing all of her data, and collaborating with patient's care team: 35-minute Charges/Coding Visit Charges Inpatient E&M: 40822 Subs Hosp L2 08/27/24 1443 <Electronically signed by Dominik Carlos DO> Cosigner Signature (if applicable): CC: ~ Signed [facility] Work Phone: [phone] 511-539303-24-2025 Consult note Author Jin Rosales [facility] Note Date/Time August 27, 2024 1:1 3pm [facility] Medical Records Department [address] [place] [address] Consultation - Orthopedics 08/27/24 1131 MR#: [id number] Acct: [id number] Name: DANETTE BISHOP Rep #:[id number] : 1945 79 From: Jin Rosales MD PCP: Dr. Tami Chang MD Status:ADM JASPREET Location: [place] [address] Documented by User: ZARINA Menard 08/27/24 11:43 HPI Consult Data Date of Consult: 08/27/24 HPI Narrative HPI Narrative: DANETTE BISHOP, is a 79 F [address] presented to [facility] ED on 08/23/2024 with acute on chronic low back pain with spasms and inability to ambulate. Patient has history of chronic low back pain with L4-5 lumbar fusion done at the [facility] in 2019 and then discectomy done there in 2020. Medical history is also significant for metastatic breast cancer; she follows with Dr. Centeno for this and has been stable on trastuzumab and letrozole recently. Around midmorning today patient developed significant bilateral low back muscle spasms. She notes that since her low back procedure she has had chronic low back pain that has generally been tolerable with pain medication. However, she has never had muscle spasms like this before. She was walking at the time and had more difficulty moving the right leg due to pain than the left leg. When she got home she had even worse pain and was essentially unable to move, so she came in for further evaluation. In the ED she was mildly tachycardic to the 100s and mildly hypertensive to the 160s over 80s but otherwise stable on room air. Labs showed WBC count 13, were otherwise fairly benign. CT lumbar spine without contrast showed no acute lumbar fracture and known multilevel degenerative central and neural foraminal stenosis. Was also noted on CT scan to have a distended urinary bladder, and Queen catheter was placed with 900 cc of urine output. Given the intractable back pain with urinary retention and inability to ambulate, hospitalist was contacted for admission. History of L4-5 fusion in 2018 and discectomy [place] [address] Garcia at [facility]. Patient says that starting August 25 she noticed an increase in muscle spasm which caused back pain which made it difficult for her to ambulate. Says that the pain is primarily midline however she does think that it radiates more towards the right side. She denies any numbness or tingling down her legs. The patient tried a lidocaine patch at home as well as Tylenol however that did not seem to help the pain. She has a history of metastatic breast cancer which includes a chemo in 2018 and a mastectomy in 2023. Patient notes that she did have a T6 involvement from the metastatic cancer. [facility] Medical History (Updated 08/27/24 @ 13:[address] Jin Rosales MD) Breast cancer Liver cancer Wears glasses Post-menopausal Cancer Depression Anxiety Alcohol use Thyroid disease Anemia Easy bruising Excessive bleeding Back pain TIA (transient ischemic attack) History of hiatal hernia History of ulceration History of IBS Gastric reflux Former smoker Shortness of breath on exertion History of echocardiogram Hypertension History of irregular heartbeat History of rheumatic fever LUQ pain 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 Epigastric abdominal pain Liver metastasis 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 Wears dentures Sleep apnea History of TIA (transient ischemic attack) History of thyroid disease Back pain Neck pain Severe headache Stomach ulcer History of cancer Arthritis History of hypertension Medical History no medical history Home Medications ?Medication ?Instructions ?Recorded ?Last Taken ?Type fluoxetine 40 mg capsule 40 mg PO DAILY 06/16/1708/05 History lisinopril 20 mg tablet 20 mg PO DAILY 09/25/2008/05 History levothyroxine 125 mcg tablet 112 mcg PO DAILY 30 days #27 tabs 06/11/21 08/25/24 History hydrocodone-acetaminophen 5-325mg 1 tab PO Q6H PRN josé miguel n 07/16/22 08/25/24 History 5mg-325mg alprazolam 0.5 mg tablet 0.5 mg PO DAILY PRN anxiety 07/21/22 Unknown History letrozole 2.5 mg tablet 2.5 mg PO DAILY 02/16/24 History amlodipine 5 mg tablet 5 mg PO QHS 04/30/24 5 History clopidogrel 75 mg tablet 75 mg PO DAILY 04/30/2408/05 History esomeprazole magnesium 20 mg 20 mg PO DAILY 04/30/24 0 08/25/24 History capsule,delayed release (Nexium) liothyronine 5 mcg tablet 5 mcg PO DAILY 05/21/2408/05 History zolpidem 10 mg tablet 10 mg PO QHS 05/21/24 History acetaminophen 650 mg 650 mg PO PRN ARTHRITIS 08/0508/24/24 History tablet,extended release cholecalciferol (vitamin D3) 50 50 mcg PO DAILY 08/24/24 History mcg (2,000 unit) capsule ferrous sulfate 325 mg (65 mg 325 mg PO DAILY 08/25/24 08/24/24 History iron) tablet (Feosol) multivitamin (Daily Multi-Vitamin 1 tab PO DAILY 08/2508/24/24 History tablet) psyllium husk 3.4 gram/5.4 gram 1 tsp PO DAILY 5 08/24/24 History oral powder (Metamucil) Allergy/AdvReac Type Severity Reaction Status Date / Time shellfish derived Allergy Severe throat Verified 08/25/24 13:29 swelling adhesive tape AdvReac Rash Verified 08/25/24 13:29 Family History Mother Colon cancer passed from recurrence Thyroid disorder Father Hypertension CVA (cerebral vascular accident) Sister Breast cancer, Onset Age: 87 Aunt Colon cancer paternal Surgical History History of lumpectomy History of back surgery History of thyroid surgery Surgical History no surgical history Social History household members: spouse Smoking Status: Former smoker how long ago did patient quit smoking: >50 years ago; off and on for 2 years, socially only alcohol intake: current alcohol intake frequency: 0-2 drinks per day Alcohol type: wine details: socially substance use type: does not use additional social history: denies vaping, denies marijuana, denies edibles, denies aspirin and ibuprofen use Vital Signs Vital Signs Vital Signs: 08/26/24 13:13 08/26/24 16:45 08/26/24 20:30 Temperature 97.7 F L 98.0 F Temperature Source Oral Oral Pulse Rate 75 74 Pulse Strength Respiratory Rate 18 16 Respiratory Effort Normal Non-Labored Respiratory Depth Normal Respiratory Pattern Normal Blood Pressure 137/78 H 159/99 H Blood Pressure Mean 97 119 Blood Pressure Source Monitor Monitor Blood Pressure Position Semi-Fowlers Semi-Fowlers Blood Pressure Location Right Arm Right Arm Pulse Ox 98 96 Oxygen Delivery Method Room Air Room Air Room Air 08/26/24 22:00 08/26/24 22:00 08/27/24 02:30 Temperature 97.9 F Temperature Source Oral Pulse Rate 72 Pulse Strength Normal (2+) Respiratory Rate 16 Respiratory Effort Non-Labored Respiratory Depth Shallow Respiratory Pattern Blood Pressure 150/66 H Blood Pressure Mean 94 Blood Pressure Source Monitor Blood Pressure Position Supine Blood Pressure Location Right Arm Pulse Ox 94 Oxygen Delivery Method Room Air 08/27/24 07:25 08/27/24 07:55 08/27/24 07:55 Temperature 98 F Temperature Source Oral Pulse Rate 65 Pulse Strength Normal (2+) Respiratory Rate 18 Respiratory Effort Respiratory Depth Respiratory Pattern Blood Pressure 160/68 H Blood Pressure Mean 98 Blood Pressure Source Monitor Blood Pressure Position Semi-Fowlers Blood Pressure Location Right Arm Pulse Ox 95 100 Oxygen Delivery Method Room Air Room Air 08/27/24 08:21 Temperature Temperature Source Pulse Rate Pulse Strength Respiratory Rate Respiratory Effort Normal Non-Labored Respiratory Depth Normal Respiratory Pattern Normal Blood Pressure Blood Pressure Mean Blood Pressure Source Blood Pressure Position Blood Pressure Location Pulse Ox Oxygen Delivery Method Room Air Weight Weight: 151 lb 0.636 oz Body Mass Index (BMI) 28.5 Physical Exam Narrative Neurological exam of the lower extremity shows 5X5 power. Normal sensation across all dermatomes. Patient was able to complete bed mobility to roll to oneside, physical examination of the back shows a well-healed midline incision, physical examination of the left side belly shows a well-healed incision. No midline tenderness or paraspinal tenderness. Const alert, oriented x3 and no apparent distress Lab / Micro Data 08/26/24 05:08/26/24 05:[address] done August 25, 2024: Trace anterolisthesis of L4 on L5, multilevel degenerative changes, moderate canal stenosis greatest at L2-3, moderate bilateral neuroforaminal stenosis at L1-2. No acute lumbar fracture. Assessment & Plan Assessment/Plan (1) Fusion of lumbar spine: (2) Spondylolisthesis, lumbar region: PLAN: Plan Patient receiving dexamethasone 4 mg IV every 6 hours. Patient taking cyclobenzaprine 5 mg 3 times daily which has seemed to have givenher some benefit and help control the muscle spasms in her back. Recommended an injection with pain management, consult will be sent. Continue PT/OT to increase strength and walking endurance. At this time do not recommend any surgical options however if in the future she continues to have this pain with no benefit with the injection surgical options can be discussed at that time. Documented by User: Dr. Jin Rosales MD 08/27/24 13:13 HPI Consult Data Date of Consult: 08/27/24 [facility] Medical History (Updated 08/27/24 @ 13:[address] Jin Rosales MD) Breast cancer Liver cancer Wears glasses Post-menopausal Cancer Depression Anxiety Alcohol use Thyroid disease Anemia Easy bruising Excessive bleeding Back pain TIA (transient ischemic attack) History of hiatal hernia History of ulceration History of IBS Gastric reflux Former smoker Shortness of breath on exertion History of echocardiogram Hypertension History of irregular heartbeat History of rheumatic fever LUQ pain 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 Epigastric abdominal pain Liver metastasis 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 Wears dentures Sleep apnea History of TIA (transient ischemic attack) History of thyroid disease Back pain Neck pain Severe headache Stomach ulcer History of cancer Arthritis History of hypertension Medical History no medical history Home Medications ?Medication ?Instructions ?Recorded ?Last Taken ?Type fluoxetine 40 mg capsule 40 mg PO DAILY 06/16/1708/05 History lisinopril 20 mg tablet 20 mg PO DAILY 09/25/2008/05 History levothyroxine 125 mcg tablet 112 mcg PO DAILY 30 days #27 tabs 06/11/21 08/25/24 History hydrocodone-acetaminophen 5-325mg 1 tab PO Q6H PRN josé miguel n 07/16/22 08/25/24 History 5mg-325mg alprazolam 0.5 mg tablet 0.5 mg PO DAILY PRN anxiety 07/21/22 Unknown History letrozole 2.5 mg tablet 2.5 mg PO DAILY 02/16/24 History amlodipine 5 mg tablet 5 mg PO QHS 04/30/24 5 History clopidogrel 75 mg tablet 75 mg PO DAILY 04/30/2408/05 History esomeprazole magnesium 20 mg 20 mg PO DAILY 04/30/24 0 08/25/24 History capsule,delayed release (Nexium) liothyronine 5 mcg tablet 5 mcg PO DAILY 05/21/2408/05 History zolpidem 10 mg tablet 10 mg PO QHS 05/21/24 History acetaminophen 650 mg 650 mg PO PRN ARTHRITIS 08/0508/24/24 History tablet,extended release cholecalciferol (vitamin D3) 50 50 mcg PO DAILY 08/24/24 History mcg (2,000 unit) capsule ferrous sulfate 325 mg (65 mg 325 mg PO DAILY 08/25/24 08/24/24 History iron) tablet (Feosol) multivitamin (Daily Multi-Vitamin 1 tab PO DAILY 08/2508/24/24 History tablet) psyllium husk 3.4 gram/5.4 gram 1 tsp PO DAILY 5 08/24/24 History oral powder (Metamucil) Allergy/AdvReac Type Severity Reaction Status Date / Time shellfish derived Allergy Severe throat Verified 08/25/24 13:29 swelling adhesive tape AdvReac Rash Verified 08/25/24 13:29 Family History Mother Colon cancer passed from recurrence Thyroid disorder Father Hypertension CVA (cerebral vascular accident) Sister Breast cancer, Onset Age: 87 Aunt Colon cancer paternal Surgical History History of lumpectomy History of back surgery History of thyroid surgery Surgical History no surgical history Social History household members: spouse Smoking Status: Former smoker how long ago did patient quit smoking: >50 years ago; off and on for 2 years, socially only alcohol intake: current alcohol intake frequency: 0-2 drinks per day Alcohol type: wine details: socially substance use type: does not use additional social history: denies vaping, denies marijuana, denies edibles, denies aspirin and ibuprofen use Physical Exam Narrative Neurological exam of the lower extremity shows 5X5 power. Normal sensation across all dermatomes. Patient was able to complete bed mobility to roll to oneside, physical examination of the back shows a well-healed midline and paramedian vertical incision, barely incision of forward lateral lumbar interbody fusion at L4-5 was not visible on the left. midline tenderness or paraspinal tenderness. Lab / Micro Data 08/26/24 05:25 08/26/24 05:25 Assessment & Plan Assessment/Plan (1) Fusion of lumbar spine: (2) Spondylolisthesis, lumbar region: PLAN: Plan Reviewed patient's CT scan of the lumbar spine done last Tuesday as well as MRIdone this morning. These show prior L4-5 fusion which is well-healed and has only left-sided pedicle screws. L3-4 shows postsurgical changes of right laminotomy. Severe disc degeneration at L3-4 noticed along with facet arthrosis. L5-S1 shows grade 1 spondylolisthesis with facet arthrosis. No upright x-rays available done recently. Explained to her the imaging findings in detail. She has likely developed severe exacerbation/flareup of arthritic findings and L3-4 L5-S1 adjacent to herprior L4-5 fusion. She is otherwise neuro intact. She does not have any acute disc herniations or any other acute findings that could explain the sudden onsetsevere pain 2 days ago. Recommend continued pain control with possible consideration of pain management injections. Patient receiving dexamethasone 4 mg IV every 6 hours. Patient taking cyclobenzaprine 5 mg 3 times daily which has seemed to have givenher some benefit and help control the muscle spasms in her back. Recommended an injection with pain management, consult will be sent. Continue PT/OT to increase strength and walking endurance. At this time do not recommend any surgical options however if in the future she continues to have this pain with no benefit with the injection surgical options can be discussed at that time. Charges/Coding Visit Charges Inpatient E&M: 37263 Init Hosp L3 08/27/24 1313 <Electronically signed by Jin Rosales MD> Cosigner Signature (if applicable): CC: Dr. Tami Chang MD; Dr. Wendy Calle MD; Dr. Dominik Carlos DO~ Signed [facility] Work Phone: [phone] 829-163103-24-2025 Progress note [facility] Medical Records Department [address] [place] [address] Progress Note - Hospitalist 08/27/24 1440 MR#: [id number] Acct: [id number] Name: DANETTE BISHOP Rep #:[id number] : 1945 79 From: Dominik Carlos DO PCP: Dr. Tami Chang MD Status:ADM JASPREET Location: [place] [address] Reason for Visit Reason for Visit: Diagnoses Other chronic pain (08/25/24) Spondylolisthesis, lumbar region (08/25/24) Fusion of spine, lumbar region (08/25/24) Low back pain, unspecified (08/25/24) Muscle spasm of back (08/25/24) Difficulty in walking, not elsewhere classified (08/25/24) Subjective Subjective Patient was seen and examined today, her back pain is improved from yesterday. She had an MRI performed today which did not show evidence of a ruptured disc, there is no evidence of any compression fracture either. I talked briefly with Dr. Cárdenas who saw her in consultation, he would like pain management to see her for possible back injection, I talked with Dr Hess about it and he will see herthis afternoon Objective Data Objective Data Vital Signs: Vital Signs Temp Pulse Resp BP Pulse Ox O2 Del Method 97.9 F 77 18 125/56 H 99 Room Air 08/27/24 14:35 08/27/24 14:35 08/27/24 14:35 08/27/24 14:35 08/27/24 14:35 08/27/24 14:35 Oxygen Delivery Method Room Air Weight: 68.51 kg Body Mass Index (BMI) 28.5 Intake & Output: Intake and Output for Last 24 Hours 08/25/24 08/26/24 08/27/24 23:59 23:59 23:59 Intake Total 650 / 650 120 / 120 Output Total 1050 / 1050 700 / 700 Balance -400 / -400 -580 / -580 Lab / Micro Data 08/26/24 05:25 08/26/24 05:25 Radiography Diagnostic Testing: Radiology Impression Lumbar Spine MRI 08/27/24 09:00 IMPRESSION: 1. Previous spinal fusion at the L4-5 level. 2. Multilevel degenerative changes are present which are greatest at the postoperative transitionallevels of L3-4 and L5-S1. Details of the degenerative changes in the body of the report. 3. Mild spondylolisthesis also present at the transitional levels. 4. A T2 hypointense lesion is incidentally noted in the T6 vertebral body on thescout views, which is indeterminate. Consider dedicated thoracic imaging for further assessment. Reading Location: [facility] Physical Exam Narrative alert, oriented x3, no apparent distress and average body habitus Constitutional Narrative: Patient appears younger than her stated age General Appearance: cooperative, well kempt and well developed Orientation / Consciousness: awake, oriented to person, oriented to place and oriented to time HEENT normocephalic, head/scalp atraumatic and moist oral mucous membranes Eyes PERRL, EOMs intact bilaterally and conjunctivae normal Neck supple, no JVD, thyroid normal and no carotid bruits General: trachea midline Resp normal respiratory effort, no retractions, no use of accessory muscles and clearto auscultation bilaterally Auscultation: Negative for rales, rhonchi or wheezes Cardio regular rate, regular rhythm, S1 normal heart sound, S2 normal heart sound, no murmurs, no rub and no gallops GI normal to inspection, nondistended, normoactive bowel sounds, soft to palpation,non-tender and non-distended Extremity no clubbing, cyanosis or edema Skin no rashes or lesions noted General Skin Exam: no breakdown Neuro oriented x3, CN's II-XII intact bilaterally, moves all extremities, no focal motor deficits and no sensory deficits noted Sensorium / Orientation: awake and alert Speech: speech normal Psych affect normal Assessment & Plan Assessment/Plan (1) Acute on chronic low back pain: PLAN: Plan 1. Uncontrolled lumbar back pain-etiology unclear at this point, patient was placed on OxyContin, she is on Flexeril, I have placed her on IV Decadron, patient will be seen by pain management for possible facet injection, continue PT and OT #2 essential hypertension-patient will remain on her home blood pressure medications #3 chronic depression patient is on Prozac #4 hypothyroidism-patient is on Synthroid #5 answer-patient is on letrozole #6 cerebrovascular disease-patient has a history of transient ischemic attacks, she is on Plavix Total clinical time spent by myself addressing the patient's medical issues, reviewing all of her data, and collaborating with patient's care team: 35-minute Charges/Coding Visit Charges Inpatient E&M: 10117 Subs Hosp L2 08/27/24 4423 Cosigner Signature (if applicable): CC: ~ Signed [facility]03-24-2025 Consult note [facility] Medical Records Department [address] [place] [address] Consultation - Orthopedics 08/27/24 1131 MR#: [id number] Acct: [id number] Name: DANETTE BISHOP Rep #:[id number] : 1945 79 From: Jin Rosales MD PCP: Dr. Tami Chang MD Status:ADM JASPREET Location: [place] [address] Documented by User: ZARINA Menard 08/27/24 11:43 HPI Consult Data Date of Consult: 08/27/24 HPI Narrative HPI Narrative: DANETTE BISHOP, is a 79 F [address] presented to [facility] ED on 08/23/2024 with acute on chronic low back pain with spasms and inability to ambulate. Patient has history of chronic low back pain with L4-5 lumbar fusion done at the [facility] in 2018 and then discectomy done there in 2020. Medical history is also significant for metastatic breast cancer; she follows with Dr. Bartholomew this and has been stable on trastuzumab and letrozole recently. Around midmorning today patientdeveloped significant bilateral low back muscle spasms. She notes that since her low back procedureshe has had chronic low back pain that has generally been tolerable with pain medication. However, she has never had muscle spasms like this before. She was walking at the time and had more difficulty moving the right leg due to pain than the left leg. When she got home she had even worse pain and was essentially unable to move, so she came in for further evaluation. In the ED she was mildly tachy cardic to the 100s and mildly hypertensive to the 160s over 80s but otherwise stable on room air. Labs showed WBC count 13, were otherwise fairly benign. CT lumbar spine without contrast showed no acute lumbar fracture and known multilevel degenerative central and neural foraminal stenosis. Was also noted on CT scan to have a distended urinary bladder, and Queen catheter was placed with 900 cc ofurine output. Given the intractable back pain with urinary retention and inability to ambulate, hospitalist was contacted for admission. History of L4-5 fusion in 2018 and discectomy [place] [address] Garcia at [facility]. Patient says that starting Tuesday, August 25 she noticed an increase in muscle spasm which caused back pain which made it difficult for her to ambulate. Says that the pain is primarily midline however she does think that it radiates more towards the right side. She denies any numbness or tingling down her legs. The patient tried a lidocaine patch at home as well as Tylenol however that did not seem to help the pain. She has a history of metastatic breast cancer which includes a chemo in 2018 and a mastectomy in 2023. Patient notes that she did have a T6 involvement from the metastatic cancer. [facility] Medical History (Updated 08/27/24 @ 13:[address] Jin Rosales MD) Breast cancer Liver cancer Wears glasses Post-menopausal Cancer Depression Anxiety Alcohol use Thyroid disease Anemia Easy bruising Excessive bleeding Back pain TIA (transient ischemic attack) History of hiatal hernia History of ulceration History of IBS Gastric reflux Former smoker Shortness of breath on exertion History of echocardiogram Hypertension History of irregular heartbeat History of rheumatic fever LUQ pain 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 Epigastric abdominal pain Liver metastasis 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 Wears dentures Sleep apnea History of TIA (transient ischemic attack) History of thyroid disease Back pain Neck pain Severe headache Stomach ulcer History of cancer Arthritis History of hypertension Medical History no medical history Home Medications ?Medication ?Instructions ?Recorded ?Last Taken ?Type fluoxetine 40 mg capsule 40 mg PO DAILY 06/16/1708/05 History lisinopril 20 mg tablet 20 mg PO DAILY 09/25/2008/05 History levothyroxine 125 mcg tablet 112 mcg PO DAILY 30 days #27 tabs 06/11/21 08/25/24 History hydrocodone-acetaminophen 5-325mg 1 tab PO Q6H PRN josé miguel n 07/16/22 08/25/24 History 5mg-325mg alprazolam 0.5 mg tablet 0.5 mg PO DAILY PRN anxiety 07/21/22 Unknown History letrozole 2.5 mg tablet 2.5 mg PO DAILY 02/16/24 History amlodipine 5 mg tablet 5 mg PO QHS 04/30/24 5 History clopidogrel 75 mg tablet 75 mg PO DAILY 04/30/2408/05 History esomeprazole magnesium 20 mg 20 mg PO DAILY 04/30/24 0 08/25/24 History capsule,delayed release (Nexium) liothyronine 5 mcg tablet 5 mcg PO DAILY 05/21/2408/05 History zolpidem 10 mg tablet 10 mg PO QHS 05/21/24 History acetaminophen 650 mg 650 mg PO PRN ARTHRITIS 08/0508/24/24 History tablet,extended release cholecalciferol (vitamin D3) 50 50 mcg PO DAILY 08/24/24 History mcg (2,000 unit) capsule ferrous sulfate 325 mg (65 mg 325 mg PO DAILY 08/25/24 08/24/24 History iron) tablet (Feosol) multivitamin (Daily Multi-Vitamin 1 tab PO DAILY 08/2508/24/24 History tablet) psyllium husk 3.4 gram/5.4 gram 1 tsp PO DAILY 5 08/24/24 History oral powder (Metamucil) Allergy/AdvReac Type Severity Reaction Status Date / Time shellfish derived Allergy Severe throat Verified 08/25/24 13:29 swelling adhesive tape AdvReac Rash Verified 08/25/24 13:29 Family History Mother Colon cancer passed from recurrence Thyroid disorder Father Hypertension CVA (cerebral vascular accident) Sister Breast cancer, Onset Age: 87 Aunt Colon cancer paternal Surgical History History of lumpectomy History of back surgery History of thyroid surgery Surgical History no surgical history Social History household members: spouse Smoking Status: Former smoker how long ago did patient quit smoking: >50 years ago; off and on for 2 years, socially only alcohol intake: current alcohol intake frequency: 0-2 drinks per day Alcohol type: wine details: socially substance use type: does not use additional social history: denies vaping, denies marijuana, denies edibles, denies aspirin and ibuprofen use Vital Signs Vital Signs Vital Signs: 08/26/24 13:13 08/26/24 16:45 08/26/24 20:30 Temperature 97.7 F L 98.0 F Temperature Source Oral Oral Pulse Rate 75 74 Pulse Strength Respiratory Rate 18 16 Respiratory Effort Normal Non-Labored Respiratory Depth Normal Respiratory Pattern Normal Blood Pressure 137/78 H 159/99 H Blood Pressure Mean 97 119 Blood Pressure Source Monitor Monitor Blood Pressure Position Semi-Fowlers Semi-Fowlers Blood Pressure Location Right Arm Right Arm Pulse Ox 98 96 Oxygen Delivery Method Room Air Room Air Room Air 08/26/24 22:00 08/26/24 22:00 08/27/24 02:30 Temperature 97.9 F Temperature Source Oral Pulse Rate 72 Pulse Strength Normal (2+) Respiratory Rate 16 Respiratory Effort Non-Labored Respiratory Depth Shallow Respiratory Pattern Blood Pressure 150/66 H Blood Pressure Mean 94 Blood Pressure Source Monitor Blood Pressure Position Supine Blood Pressure Location Right Arm Pulse Ox 94 Oxygen Delivery Method Room Air 08/27/24 07:25 08/27/24 07:55 08/27/24 07:55 Temperature 98 F Temperature Source Oral Pulse Rate 65 Pulse Strength Normal (2+) Respiratory Rate 18 Respiratory Effort Respiratory Depth Respiratory Pattern Blood Pressure 160/68 H Blood Pressure Mean 98 Blood Pressure Source Monitor Blood Pressure Position Semi-Fowlers Blood Pressure Location Right Arm Pulse Ox 95 100 Oxygen Delivery Method Room Air Room Air 08/27/24 08:21 Temperature Temperature Source Pulse Rate Pulse Strength Respiratory Rate Respiratory Effort Normal Non-Labored Respiratory Depth Normal Respiratory Pattern Normal Blood Pressure Blood Pressure Mean Blood Pressure Source Blood Pressure Position Blood Pressure Location Pulse Ox Oxygen Delivery Method Room Air Weight Weight: 151 lb 0.636 oz Body Mass Index (BMI) 28.5 Physical Exam Narrative Neurological exam of the lower extremity shows 5X5 power. Normal sensation across all dermatomes. Patient was able to complete bed mobility to roll to oneside, physical examination of the back shows a well-healed midline incision, physical examination of the left side belly shows a well-healed incision. No midline tenderness or paraspinal tenderness. Const alert, oriented x3 and no apparent distress Lab / Micro Data 08/26/24 05:25 08/26/24 05:[address] done August 25, 2024: Trace anterolisthesis of L4 on L5, multilevel degenerative changes, moderate canal stenosis greatest at L2-3, moderate bilateral neuroforaminal stenosis at L1-2. No acute lumbar fracture. Assessment & Plan Assessment/Plan (1) Fusion of lumbar spine: (2) Spondylolisthesis, lumbar region: PLAN: Plan Patient receiving dexamethasone 4 mg IV every 6 hours. Patient taking cyclobenzaprine 5 mg 3 times daily which has seemed to have givenher some benefit and help control the muscle spasms in her back. Recommended an injection with pain management, consult will be sent. Continue PT/OT to increase strength and walking endurance. At this time do not recommend any surgical options however if in the future she continues to have this pain with no benefit with the injection surgical options can be discussed at that time. Documented by User: Dr. Jin Rosales MD 08/27/24 13:13 HPI Consult Data Date of Consult: 08/27/24 [facility] Medical History (Updated 08/27/24 @ 13:[address] Jin Rosales MD) Breast cancer Liver cancer Wears glasses Post-menopausal Cancer Depression Anxiety Alcohol use Thyroid disease Anemia Easy bruising Excessive bleeding Back pain TIA (transient ischemic attack) History of hiatal hernia History of ulceration History of IBS Gastric reflux Former smoker Shortness of breath on exertion History of echocardiogram Hypertension History of irregular heartbeat History of rheumatic fever LUQ pain 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 Epigastric abdominal pain Liver metastasis 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 Wears dentures Sleep apnea History of TIA (transient ischemic attack) History of thyroid disease Back pain Neck pain Severe headache Stomach ulcer History of cancer Arthritis History of hypertension Medical History no medical history Home Medications ?Medication ?Instructions ?Recorded ?Last Taken ?Type fluoxetine 40 mg capsule 40 mg PO DAILY 06/16/1708/05 History lisinopril 20 mg tablet 20 mg PO DAILY 09/25/2008/05 History levothyroxine 125 mcg tablet 112 mcg PO DAILY 30 days #27 tabs 06/11/21 08/25/24 History hydrocodone-acetaminophen 5-325mg 1 tab PO Q6H PRN josé miguel n 07/16/22 08/25/24 History 5mg-325mg alprazolam 0.5 mg tablet 0.5 mg PO DAILY PRN anxiety 07/21/22 Unknown History letrozole 2.5 mg tablet 2.5 mg PO DAILY 02/16/24 History amlodipine 5 mg tablet 5 mg PO QHS 04/30/24 5 History clopidogrel 75 mg tablet 75 mg PO DAILY 04/30/2408/05 History esomeprazole magnesium 20 mg 20 mg PO DAILY 04/30/24 0 08/25/24 History capsule,delayed release (Nexium) liothyronine 5 mcg tablet 5 mcg PO DAILY 05/21/2408/05 History zolpidem 10 mg tablet 10 mg PO QHS 05/21/24 History acetaminophen 650 mg 650 mg PO PRN ARTHRITIS 08/0508/24/24 History tablet,extended release cholecalciferol (vitamin D3) 50 50 mcg PO DAILY 08/24/24 History mcg (2,000 unit) capsule ferrous sulfate 325 mg (65 mg 325 mg PO DAILY 08/25/24 08/24/24 History iron) tablet (Feosol) multivitamin (Daily Multi-Vitamin 1 tab PO DAILY 08/2508/24/24 History tablet) psyllium husk 3.4 gram/5.4 gram 1 tsp PO DAILY 5 08/24/24 History oral powder (Metamucil) Allergy/AdvReac Type Severity Reaction Status Date / Time shellfish derived Allergy Severe throat Verified 08/25/24 13:29 swelling adhesive tape AdvReac Rash Verified 08/25/24 13:29 Family History Mother Colon cancer passed from recurrence Thyroid disorder Father Hypertension CVA (cerebral vascular accident) Sister Breast cancer, Onset Age: 87 Aunt Colon cancer paternal Surgical History History of lumpectomy History of back surgery History of thyroid surgery Surgical History no surgical history Social History household members: spouse Smoking Status: Former smoker how long ago did patient quit smoking: >50 years ago; off and on for 2 years, socially only alcohol intake: current alcohol intake frequency: 0-2 drinks per day Alcohol type: wine details: socially substance use type: does not use additional social history: denies vaping, denies marijuana, denies edibles, denies aspirin and ibuprofen use Physical Exam Narrative Neurological exam of the lower extremity shows 5X5 power. Normal sensation across all dermatomes. Patient was able to complete bed mobility to roll to oneside, physical examination of the back shows a well-healed midline and paramedian vertical incision, barely incision of forward lateral lumbar int erbody fusion at L4-5 was not visible on the left. midline tenderness or paraspinal tenderness. Lab / Micro Data 08/26/24 05:25 08/26/24 05:25 Assessment & Plan Assessment/Plan (1) Fusion of lumbar spine: (2) Spondylolisthesis, lumbar region: PLAN: Plan Reviewed patient's CT scan of the lumbar spine done last Tuesday as well as MRIdone this morning. These show prior L4-5 fusion which is well-healed and has only left-sided pedicle screws. L3-4 showspostsurgical changes of right laminotomy. Severe disc degeneration at L3-4 noticed along with facetarthrosis. L5-S1 shows grade 1 spondylolisthesis with facet arthrosis. No upright x-rays available done recently. Explained to her the imaging findings in detail. She has likely developed severe exacerbation/flareup of arthritic findings and L3-4 L5-S1 adjacent to herprior L4-5 fusion. She is otherwise neuro intact. She does not have any acute disc herniations or any other acute findings that could explain thesudden onsetsevere pain 2 days ago. Recommend continued pain control with possible consideration ofpain management injections. Patient receiving dexamethasone 4 mg IV every 6 hours. Patient taking cyclobenzaprine 5 mg 3 times daily which has seemed to have givenher some benefit and help control the muscle spasms in her back. Recommended an injection with pain management, consult will be sent. Continue PT/OT to increase strength and walking endurance. At this time do not recommend any surgical options however if in the future she continues to have this pain with no benefit with the injection surgical options can be discussed at that time. Charges/Coding Visit Charges Inpatient E&M: 68646 Init Hosp L3 08/27/24 1313 Cosigner Signature (if applicable): CC: Dr. Tami Chang MD; Dr. Wendy Calle MD; Dr. Dominik Carlos DO~ Signed [facility]2025 Progress note Author Dominik Carlos [facility] Note Date/Time August 26, 2024 11: 01am [facility] Medical Records Department [address] [place] [address] Progress Note - Hospitalist 08/26/24 1055 MR#: [id number] Acct: [id number] Name: DANETTE BISHOP Rep #:[id number] : 1945 79 From: Dominik Carlos DO PCP: Dr. Tami Chang MD Status:ADM JASPREET Location: [place] [address] Reason for Visit Reason for Visit: Diagnoses Other chronic pain (08/25/24) Low back pain, unspecified (08/25/24) Muscle spasm of back (08/25/24) Difficulty in walking, not elsewhere classified (08/25/24) Subjective Subjective Patient was seen and examined today, her was in the room at the time my examination. Patient states that she is having severe back pain, she denies anytrauma, she has a past history of lumbar spine surgery. Patient denies any radiation of pain into her buttocks or down her legs. She describes the pain aslike a spasm Objective Data Objective Data Vital Signs: Vital Signs Temp Pulse Resp BP Pulse Ox O2 Del Method 97.8 F 67 18 141/68 H 95 Room Air 08/26/24 05:39 08/26/24 05:39 08/26/24 05:39 08/26/24 05:39 08/26/24 07:59 08/26/24 07:59 Oxygen Delivery Method Room Air Weight: 68.51 kg Body Mass Index (BMI) 28.5 Intake & Output: Intake and Output for Last 24 Hours 08/24/24 08/25/24 08/26/24 23:59 23:59 23:59 Intake Total 200 / 200 Output Total 350 / 350 Balance -150 / -150 Lab / Micro Data 08/26/24 05:25 08/26/24 05:25 Labs: Laboratory Results - last 24 hr 08/25/24 13:59: WBC 13.2 H, RBC 4.01 L, Hgb 11.9 L, Hct 34.8 L, MCV 86.8, MCH 29.7, MCHC 34.2, RDW Std Deviation 48.9 H, RDW Coeff of James 15.3 H, Plt Count 358, MPV 9.5, Immature Gran % (Auto) 0.500, Neut % (Auto) 83.4 H, Lymph % (Auto)9.9 L, [place] % (Auto) 5.5, Eos % (Auto) 0.2, Baso % (Auto) 0.5, Absolute Neuts (auto) 11.0 H, Absolute Lymphs (auto) 1.31, Nucleated RBC % 0, Sodium 134, Potassium 3.3, Chloride 99, Carbon Dioxide 19.9 L, Anion Gap 16 H, BUN 14, Creatinine 0.65 L, Estim Creat Clear Calc 52.28, Est GFR (MDRD) Non-Af 90, BUN/Creatinine Ratio 21.2 H, Glucose 120 H, Calcium 8.8 08/25/24 15:05: Urine Color Yellow, Urine Clarity Clear, Urine pH 8.0, Ur Specific [place] 1.010, Urine Protein Negative, Urine Glucose (UA) Normal, UrineKetones 5 H, Urine Occult Blood Negative, Urine Nitrite Negative, Urine Bilirubin Negative, Urine Urobilinogen Normal, Ur Leukocyte Esterase Negative, Urine RBC 0-5 SEEN, Urine WBC 0-5 SEEN, Ur Squamous Epith Cells 0 SEEN, Urine Bacteria 0 SEEN, Urine Mucus 0 SEEN 08/26/24 05:25: WBC 5.6, RBC 4.09 L, Hgb 12.1, Hct 36.0 L, MCV 88.0, MCH 29.6, MCHC 33.6, RDW Std Deviation 50.0 H, RDW Coeff of James 15.5 H, Plt Count 347, MPV9.5, Sodium 135, Potassium 4.4, Chloride 100, Carbon Dioxide 21.4, Anion Gap 13,BUN 14, Creatinine 0.68 L, Estim Creat Clear Calc 50.49, Est GFR (MDRD) Non-Af 89, BUN/Creatinine Ratio 21.2 H, Glucose 121 H, Calcium 8.9 Radiography Diagnostic Testing: Radiology Impression Lumbar Spine CT 08/25/24 13:45 IMPRESSION: 1. No acute lumbar fracture. 2. 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 Reading Location: [facility] Physical Exam Const alert, oriented x3, no apparent distress and average body habitus Constitutional Narrative: Patient appears younger than her stated age General Appearance: cooperative, well kempt and well developed Orientation / Consciousness: awake, oriented to person, oriented to place and oriented to time HEENT normocephalic, head/scalp atraumatic and moist oral mucous membranes Eyes PERRL, EOMs intact bilaterally and conjunctivae normal Neck supple, no JVD, thyroid normal and no carotid bruits General: trachea midline Resp normal respiratory effort, no retractions, no use of accessory muscles and clearto auscultation bilaterally Auscultation: Negative for rales, rhonchi or wheezes Cardio regular rate, regular rhythm, S1 normal heart sound, S2 normal heart sound, no murmurs, no rub and no gallops GI normal to inspection, nondistended, normoactive bowel sounds, soft to palpation,non-tender and non-distended Extremity no clubbing, cyanosis or edema Skin no rashes or lesions noted General Skin Exam: no breakdown Neuro oriented x3, CN's II-XII intact bilaterally, moves all extremities, no focal motor deficits and no sensory deficits noted Sensorium / Orientation: awake and alert Speech: speech normal Psych affect normal Assessment & Plan Assessment/Plan (1) Acute on chronic low back pain: PLAN: Plan 1. 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 Work Phone: [phone] Progress note [facility] Medical Records Department [address] [place] [address] Progress Note - Hospitalist 08/26/24 1055 MR#: [id number] Acct: [id number] Name: DANETTE BISHOP Rep #:[id number] : 1945 79 From: Dominik Carlos DO PCP: Dr. Tami Chang MD Status:ADM JASPREET Location: [place] [id number] Reason for Visit Reason for Visit: Diagnoses Other chronic pain (08/25/24) Low back pain, unspecified (08/25/24) Muscle spasm of back (08/25/24) Difficulty in walking, not elsewhere classified (08/25/24) Subjective Subjective Patient was seen and examined today, her was in the room at the time my examination. Patient states that she is having severe back pain, she denies anytrauma, she has a past history of lumbarspine surgery. Patient denies any radiation of pain into her buttocks or down her legs. She describes the pain aslike a "spasm" Objective Data Objective Data Vital Signs: Vital Signs Temp Pulse Resp BP Pulse Ox O2 Del Method 97.8 F 67 18 141/68 H 95 Room Air 08/26/24 05:39 08/26/24 05:39 08/26/24 05:39 08/26/24 05:39 08/26/24 07:59 08/26/24 07:59 Oxygen Delivery Method Room Air Weight: 68.51 kg Body Mass Index (BMI) 28.5 Intake & Output: Intake and Output for Last 24 Hours 08/24/24 08/25/24 08/26/24 23:59 23:59 23:59 Intake Total 200 / 200 Output Total 350 / 350 Balance -150 / -150 Lab / Micro Data 08/26/24 05:25 08/26/24 05:25 Labs: Laboratory Results - last 24 hr 08/25/24 13:59: WBC 13.2 H, RBC 4.01 L, Hgb 11.9 L, Hct 34.8 L, MCV 86.8, MCH 29.7, MCHC 34.2, RDW Std Deviation 48.9 H, RDW Coeff of James 15.3 H, Plt Count 358, MPV 9.5, Immature Gran % (Auto) 0.500,Neut % (Auto) 83.4 H, Lymph % (Auto)9.9 L, [place] % (Auto) 5.5, Eos % (Auto) 0.2, Baso % (Auto) 0.5, Absolute Neuts (auto) 11.0 H, Absolute Lymphs (auto) 1.31, Nucleated RBC % 0, Sodium 134, Potassium 3.3, Chloride 99, Carbon Dioxide 19.9 L, Anion Gap 16 H, BUN 14, Creatinine 0.65 L, Estim Creat Clear Calc 52.28, Est GFR (MDRD) Non-Af 90, BUN/Creatinine Ratio 21.2 H, Glucose 120 H, Calcium 8.8 08/25/24 15:05: Urine Color Yellow, Urine Clarity Clear, Urine pH 8.0, Ur Specific [place] 1.010, Urine Protein Negative, Urine Glucose (UA) Normal, UrineKetones 5 H, Urine Occult Blood Negative, Urine Nitrite Negative, Urine Bilirubin Negative, Urine Urobilinogen Normal, Ur Leukocyte Esterase Negative, Urine RBC 0-5 SEEN, Urine WBC 0-5 SEEN, Ur Squamous Epith Cells 0 SEEN, Urine Bacteria 0 SEEN,Urine Mucus 0 SEEN 08/26/24 05:25: WBC 5.6, RBC 4.09 L, Hgb 12.1, Hct 36.0 L, MCV 88.0, MCH 29.6, MCHC 33.6, RDW Std Deviation 50.0 H, RDW Coeff of James 15.5 H, Plt Count 347, MPV9.5, Sodium 135, Potassium 4.4, [id number], Carbon Dioxide 21.4, Anion Gap 13,BUN 14, Creatinine 0.68 L, Estim Creat Clear Calc 50.49, EstGFR (MDRD) Non-Af 89, BUN/Creatinine Ratio 21.2 H, Glucose 121 H, Calcium 8.9 Radiography Diagnostic Testing: Radiology Impression Lumbar Spine CT 08/25/24 13:45 IMPRESSION: 1. No acute lumbar fracture. 2. 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 Reading Location: [facility] Physical Exam Const alert, oriented x3, no apparent distress and average body habitus Constitutional Narrative: Patient appears younger than her stated age General Appearance: cooperative, well kempt and well developed Orientation / Consciousness: awake, oriented to person, oriented to place and oriented to time HEENT normocephalic, head/scalp atraumatic and moist oral mucous membranes Eyes PERRL, EOMs intact bilaterally and conjunctivae normal Neck supple, no JVD, thyroid normal and no carotid bruits General: trachea midline Resp normal respiratory effort, no retractions, no use of accessory muscles and clearto auscultation bilaterally Auscultation: Negative for rales, rhonchi or wheezes Cardio regular rate, regular rhythm, S1 normal heart sound, S2 normal heart sound, no murmurs, no rub and no gallops GI normal to inspection, nondistended, normoactive bowel sounds, soft to palpation,non-tender and non-distended Extremity no clubbing, cyanosis or edema Skin no rashes or lesions noted General Skin Exam: no breakdown Neuro oriented x3, CN's II-XII intact bilaterally, moves all extremities, no focal motor deficits and no sensory deficits noted Sensorium / Orientation: awake and alert Speech: speech normal Psych affect normal Assessment & Plan Assessment/Plan (1) Acute on chronic low back pain: PLAN: Plan 1. 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03-22-2025 History and physical note Author Buzz Alford [facility] Note Date/Time August 25, 2024 6:[address] [facility] Medical Records Department [address] [place] [address] H&P Exam - Hospitalist 08/25/24 1623 MR#: [id number] Acct: [id number] Name: DANETTE BISHOP Rep #:[id number] : 1945 79 From: Buzz brice DO PCP: Dr. Tami Chang MD Status:ADM JASPREET Location: [place] [id number] HPI - General General Date of Admission: 08/25/24 Date of Service: 08/25/24 Chief Complaint: Acute on chronic back pain with spasms and inability to ambulate HPI Narrative DANETTE BISHOP, is a 79 F [address] presented to [facility] ED on 08/23/2024 with acute on chronic low back pain with spasms and inability to ambulate. Patient has history of chronic low back pain with L4-5 lumbar fusion done at the [facility] in 2019 and then discectomy done there in 2020. Medical history is also significant for metastatic breast cancer; she follows with Dr. Centeno for this and has been stable on trastuzumab and letrozole recently. Around midmorning today patient developed significant bilateral low back muscle spasms. She notes that since her low back procedure she has had chronic low back pain that has generally been tolerable with pain medication. However, she has never had muscle spasms like this before. She was walking at the time and had more difficulty moving the right leg due to pain than the left leg. When she got home she had even worse pain and was essentially unable to move, so she came in for further evaluation. In the ED she was mildly tachycardic to the 100s and mildly hypertensive to the 160s over 80s but otherwise stable on room air. Labs showed WBC count 13, were otherwise fairly benign. CT lumbar spine without contrast showed no acute lumbar fracture and known multilevel degenerative central and neural foraminal stenosis. Was also noted on CT scan to have a distended urinary bladder, and Queen catheter was placed with 900 cc of urine output. Given the intractable back pain with urinary retention and inability to ambulate, hospitalist was contacted for admission. I saw the patient at bedside in the ED, was present. Notably patient's Dayanara and her daughter Camila Vela work on staff at the hospital here. Patient was laying back in bed when I saw her and was conversing normallyfor me. She reported only minimal pain when laying still but had continued to have moderate to severe low back pain with muscle spasms with any movement. Shenoted that she was afraid to move at this point. She otherwise denied any fevers or chills. Denied any other acute concerns at this time. [facility] Medical History (Updated 08/25/24 @ 18:[address] Buzz Alford, DO) Breast cancer Liver cancer Wears glasses Post-menopausal Cancer Depression Anxiety Alcohol use Thyroid disease Anemia Easy bruising Excessive bleeding Back pain TIA (transient ischemic attack) History of hiatal hernia History of ulceration History of IBS Gastric reflux Former smoker Shortness of breath on exertion History of echocardiogram Hypertension History of irregular heartbeat History of rheumatic fever LUQ pain 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 Epigastric abdominal pain Liver metastasis 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 Wears dentures Sleep apnea History of TIA (transient ischemic attack) History of thyroid disease Back pain Neck pain Severe headache Stomach ulcer History of cancer Arthritis History of hypertension Medical History no medical history Home Medications ?Medication ?Instructions ?Recorded ?Last Taken ?Type fluoxetine 40 mg capsule 40 mg PO DAILY 06/16/1708/05 History lisinopril 20 mg tablet 20 mg PO DAILY 09/25/2008/05 History levothyroxine 125 mcg tablet 112 mcg PO DAILY 30 days #27 tabs 06/11/21 08/25/24 History hydrocodone-acetaminophen 5-325mg 1 tab PO Q6H PRN josé miguel n 07/16/22 08/25/24 History 5mg-325mg alprazolam 0.5 mg tablet 0.5 mg PO DAILY PRN anxiety 07/21/22 Unknown History letrozole 2.5 mg tablet 2.5 mg PO DAILY 02/16/24 History amlodipine 5 mg tablet 5 mg PO QHS 04/30/24 5 History clopidogrel 75 mg tablet 75 mg PO DAILY 04/30/2408/05 History esomeprazole magnesium 20 mg 20 mg PO DAILY 04/30/24 0 08/25/24 History capsule,delayed release (Nexium) liothyronine 5 mcg tablet 5 mcg PO DAILY 05/21/2408/05 History zolpidem 10 mg tablet 10 mg PO QHS 05/21/24 History acetaminophen 650 mg 650 mg PO PRN ARTHRITIS 08/0508/24/24 History tablet,extended release cholecalciferol (vitamin D3) 50 50 mcg PO DAILY 08/24/24 History mcg (2,000 unit) capsule ferrous sulfate 325 mg (65 mg 325 mg PO DAILY 08/25/24 08/24/24 History iron) tablet (Feosol) multivitamin (Daily Multi-Vitamin 1 tab PO DAILY 08/2508/24/24 History tablet) psyllium husk 3.4 gram/5.4 gram 1 tsp PO DAILY 5 08/24/24 History oral powder (Metamucil) Allergy/AdvReac Type Severity Reaction Status Date / Time shellfish derived Allergy Severe throat Verified 08/25/24 13:29 swelling adhesive tape AdvReac Rash Verified 08/25/24 13:29 Family History Mother Colon cancer passed from recurrence Thyroid disorder Father Hypertension CVA (cerebral vascular accident) Sister Breast cancer, Onset Age: 87 Aunt Colon cancer paternal Surgical History History of lumpectomy History of back surgery History of thyroid surgery Surgical History no surgical history Social History household members: spouse Smoking Status: Former smoker how long ago did patient quit smoking: >50 years ago; off and on for 2 years, socially only alcohol intake: current alcohol intake frequency: 0-2 drinks per day Alcohol type: wine details: socially substance use type: does not use additional social history: denies vaping, denies marijuana, denies edibles, denies aspirin and ibuprofen use ROS Constitutional Constitutional: Denies chills, fatigue, fever(s) or weakness Eyes Eyes: Denies change in vision Cardiovascular Cardiovascular: Denies chest pain Respiratory/Chest Respiratory/Chest: Denies shortness of breath at rest Gastrointestinal Gastrointestinal: Denies abdominal pain Genitourinary Genitourinary: Reports urinary hesitancy; Denies dysuria Musculoskeletal Musculoskeletal: Reports back pain and myalgias; Denies arthralgias Neurologic Neurologic: Reports abnormal gait; Denies dizziness, headache(s), numbness or paresthesias Vital Signs Vital Signs Vital Signs: 08/25/24 13:24 08/25/24 13:28 08/25/24 15:24 Temperature 98.9 F 98.9 F Temperature Source Oral Oral Pulse Rate 104 H 101 H 90 Respiratory Rate 15 16 14 Blood Pressure 148/129 H 148/129 H 164/86 H Blood Pressure Mean 135 135 112 Pulse Ox 100 100 98 Oxygen Delivery Method Room Air Room Air Room Air Weight Weight: 73.5 kg Body Mass Index (BMI) 30.6 Physical Exam Const alert, oriented x3 and no apparent distress Constitutional Narrative: Elderly female, mildly fatigued appearing, laying back in bed and remaining still given moderate to severe pain with movement, otherwise conversing normally. General Appearance: cooperative HEENT normocephalic, head/scalp atraumatic, hearing grossly normal bilaterally, nasal mucous membranes and turbinates normal and moist oral mucous membranes Eyes PERRL, EOMs intact bilaterally and conjunctivae normal Neck full ROM Chest inspection of chest normal Resp normal respiratory effort, normal air movement, no use of accessory muscles and clear to auscultation bilaterally Cardio regular rate, regular rhythm, no murmurs and peripheral pulses 2+ throughout GI normal to inspection, nondistended, normoactive bowel sounds, soft to palpation,non-tender and non-distended Back/Spine Back/Spine Narrative: Mild tenderness to palpation in low back diffusely, no point tenderness noted. Did not attempt any movement with her. Extremity normal to inspection and no pedal edema Skin no rashes or lesions noted Neuro Speech: speech normal Psych mental status grossly normal Mood & Affect: anxious Results Lab / Micro Data 08/25/24 13:59 08/25/24 13:59 Labs: Laboratory Results - last 24 hr 08/25/24 13:59: WBC 13.2 H, RBC 4.01 L, Hgb 11.9 L, Hct 34.8 L, MCV 86.8, MCH 29.7, MCHC 34.2, RDW Std Deviation 48.9 H, RDW Coeff of James 15.3 H, Plt Count 358, MPV 9.5, Immature Gran % (Auto) 0.500, Neut % (Auto) 83.4 H, Lymph % (Auto)9.9 L, [place] % (Auto) 5.5, Eos % (Auto) 0.2, Baso % (Auto) 0.5, Absolute Neuts (auto) 11.0 H, Absolute Lymphs (auto) 1.31, Nucleated RBC % 0, Sodium 134, Potassium 3.3, Chloride 99, Carbon Dioxide 19.9 L, Anion Gap 16 H, BUN 14, Creatinine 0.65 L, Estim Creat Clear Calc 52.28, Est GFR (MDRD) Non-Af 90, BUN/Creatinine Ratio 21.2 H, Glucose 120 H, Calcium 8.8 08/25/24 15:05: Urine Color Yellow, Urine Clarity Clear, Urine pH 8.0, Ur Specific [place] 1.010, Urine Protein Negative, Urine Glucose (UA) Normal, UrineKetones 5 H, Urine Occult Blood Negative, Urine Nitrite Negative, Urine Bilirubin Negative, Urine Urobilinogen Normal, Ur Leukocyte Esterase Negative, Urine RBC 0-5 SEEN, Urine WBC 0-5 SEEN, Ur Squamous Epith Cells 0 SEEN, Urine Bacteria 0 SEEN, Urine Mucus 0 SEEN Imaging Radiology Impression Lumbar Spine CT 08/25/24 13:45 IMPRESSION: 1. No acute lumbar fracture. 2. 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 Reading Location: [id number] Assessment & Plan Assessment/Plan (1) Acute on chronic low back pain: (2) Back muscle spasm: (3) Unable to ambulate: PLAN: Plan Patient is a 79-year-old female who presented [facility] ED on 08/25/2024 with acute on chronic low back pain with spasms and inability to ambulate. 1. Acute on chronic low back pain with muscle spasms and inability to ambulate ? Admit under observation status to [facility]. Pain management consulted. PT/OT/case management consulted. Patient with history of chronic low back pain with prior L4-5 fusion in discectomy procedures done at [facility]. Presented with acute muscle spasms that were new for her. CT lumbar spine showed chronic changes but no acute changes on admit. Will treat with scheduledTylenol, lidocaine patch, p.o. oxycodone as needed and IV Dilaudid as needed. Will give 1 dose of p.o. Flexeril for now and see how she does with this. Will also give 2 doses of IV Decadron. Will hold on obtaining MRI lumbar spine at this time and defer to pain management on this. Patient lives at home with her and would prefer to go home on discharge if possible. 2. Acute urinary retention ? CT lumbar spine showed distended bladder and she had Queen catheter placed in the ED with 900 cc of urine removed. No previous history of urinary retention. Suspect this is secondary to her acute on chronic low back pain with muscle spasms. Would recommend void trial prior to discharge if able. 3. Metastatic breast cancer ? Follows with Dr. Centeno. Has history of breast cancer s/p left mastectomy in 2023 and known liver metastases. Breast cancer ER and HER2 positive. Previously underwent chemotherapy and is now on letrozole and trastuzumab and cancer has remained stable. Notably had MRI of the spine done in early showed known T2 lesion that is stable and no other concerning findings in the spine. No inpatient needs, continue outpatient follow-up. Chronic medical conditions: ? Anxiety/depression/insomnia: Continue home fluoxetine, alprazolam daily as needed and zolpidem at night as needed. ? Hypothyroidism: Continue home Synthroid and liothyronine. ? GERD: Continue home PPI. ? Hypertension: Continue home amlodipine and lisinopril. ? History of TIA: Continue home Plavix. DVT prophylaxis: Lovenox CODE STATUS: Full code, verified Expected disposition: TBD Total clinical time spent by myself addressing the patient's medical issues, reviewing all the data, and collaborating with patient's care team: 75 minutes. Charges/Coding Visit Charges Inpatient E&M: 31240 Init Hosp L3 08/25/24 1824 <Electronically signed by Buzz Alford DO> Cosigner Signature (if applicable): CC: Dr. Buzz Alford DO; Dr. Tami Chang MD~ Signed [facility] Work Phone: 1(802) 620-329703-22-2025 History and physical note [facility] Medical Records Department [address] [place] [address] H&P Exam - Hospitalist 08/25/24 1623 MR#: [id number] Acct: [id number] Name: DANETTE BISHOP Rep #:[id number] : 1945 79 From: Buzz brice DO PCP: Dr. Tami Chang MD Status:ADM JASPREET [place] [facility] [place] [id number] HPI - General General Date of Admission: 08/25/24 Date of Service: 08/25/24 Chief Complaint: Acute on chronic back pain with spasms and inability to ambulate HPI Narrative DANETTE BISHOP, is a 79 F who presented to [facility] ED on 08/23/2024 with acute on chronic low back pain with spasms and inability to ambulate. Patient has history of chronic low back pain with L4-5 lumbar fusion done at the [facility] in 2018 and then discectomy done there in 2020. Medical history is also significant for metastatic breast cancer; she follows with Dr. [place] nagel and has been stable on trastuzumab and letrozole recently. Around midmorning today patientdeveloped significant bilateral low back muscle spasms. She notes that since her low back procedureshe has had chronic low back pain that has generally been tolerable with pain medication. However, she has never had muscle spasms like this before. She was walking at the time and had more difficulty moving the right leg due to pain than the left leg. When she got home she had even worse pain and was essentially unable to move, so she came in for further evaluation. In the ED she was mildly tachy cardic to the 100s and mildly hypertensive to the 160s over 80s but otherwise stable on room air. Labs showed WBC count 13, were otherwise fairly benign. CT lumbar spine without contrast showed no acute lumbar fracture and known multilevel degenerative central and neural foraminal stenosis. Was also noted on CT scan to have a distended urinary bladder, and Queen catheter was placed with 900 cc ofurine output. Given the intractable back pain with urinary retention and inability to ambulate, hospitalist was contacted for admission. I saw the patient at bedside in the ED, was present. Notably patient's Dayanara and her daughter Camila Vela work on staff at the hospital here. Patient was laying back in bed when I saw her and was conversing normallyfor me. She reported only minimal pain when laying still but had c ontinued to have moderate to severe low back pain with muscle spasms with any movement. Shenoted that she was afraid to move at this point. She otherwise denied any fevers or chills. Denied any otheracute concerns at this time. [facility] Medical History (Updated 08/25/24 @ 18:[address] Buzz Alford, DO) Breast cancer Liver cancer Wears glasses Post-menopausal Cancer Depression Anxiety Alcohol use Thyroid disease Anemia Easy bruising Excessive bleeding Back pain TIA (transient ischemic attack) History of hiatal hernia History of ulceration History of IBS Gastric reflux Former smoker Shortness of breath on exertion History of echocardiogram Hypertension History of irregular heartbeat History of rheumatic fever LUQ pain 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 Epigastric abdominal pain Liver metastasis 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 Wears dentures Sleep apnea History of TIA (transient ischemic attack) History of thyroid disease Back pain Neck pain Severe headache Stomach ulcer History of cancer Arthritis History of hypertension Medical History no medical history Home Medications ?Medication ?Instructions ?Recorded ?Last Taken ?Type fluoxetine 40 mg capsule 40 mg PO DAILY 06/16/1708/05 History lisinopril 20 mg tablet 20 mg PO DAILY 09/25/2008/05 History levothyroxine 125 mcg tablet 112 mcg PO DAILY 30 days #27 tabs 06/11/21 08/25/24 History hydrocodone-acetaminophen 5-325mg 1 tab PO Q6H PRN josé miguel n 07/16/22 08/25/24 History 5mg-325mg alprazolam 0.5 mg tablet 0.5 mg PO DAILY PRN anxiety 07/21/22 Unknown History letrozole 2.5 mg tablet 2.5 mg PO DAILY 02/16/24 History amlodipine 5 mg tablet 5 mg PO QHS 04/30/24 5 History clopidogrel 75 mg tablet 75 mg PO DAILY 04/30/2408/05 History esomeprazole magnesium 20 mg 20 mg PO DAILY 04/30/24 0 08/25/24 History capsule,delayed release (Nexium) liothyronine 5 mcg tablet 5 mcg PO DAILY 05/21/2408/05 History zolpidem 10 mg tablet 10 mg PO QHS 05/21/24 History acetaminophen 650 mg 650 mg PO PRN ARTHRITIS 08/0508/24/24 History tablet,extended release cholecalciferol (vitamin D3) 50 50 mcg PO DAILY 08/24/24 History mcg (2,000 unit) capsule ferrous sulfate 325 mg (65 mg 325 mg PO DAILY 08/25/24 08/24/24 History iron) tablet (Feosol) multivitamin (Daily Multi-Vitamin 1 tab PO DAILY 08/2508/24/24 History tablet) psyllium husk 3.4 gram/5.4 gram 1 tsp PO DAILY 5 08/24/24 History oral powder (Metamucil) Allergy/AdvReac Type Severity Reaction Status Date / Time shellfish derived Allergy Severe throat Verified 08/25/24 13:29 swelling adhesive tape AdvReac Rash Verified 08/25/24 13:29 Family History Mother Colon cancer passed from recurrence Thyroid disorder Father Hypertension CVA (cerebral vascular accident) Sister Breast cancer, Onset Age: 87 Aunt Colon cancer paternal Surgical History History of lumpectomy History of back surgery History of thyroid surgery Surgical History no surgical history Social History household members: spouse Smoking Status: Former smoker how long ago did patient quit smoking: >50 years ago; off and on for 2 years, socially only alcohol intake: current alcohol intake frequency: 0-2 drinks per day Alcohol type: wine details: socially substance use type: does not use additional social history: denies vaping, denies marijuana, denies edibles, denies aspirin and ibuprofen use ROS Constitutional Constitutional: Denies chills, fatigue, fever(s) or weakness Eyes Eyes: Denies change in vision Cardiovascular Cardiovascular: Denies chest pain Respiratory/Chest Respiratory/Chest: Denies shortness of breath at rest Gastrointestinal Gastrointestinal: Denies abdominal pain Genitourinary Genitourinary: Reports urinary hesitancy; Denies dysuria Musculoskeletal Musculoskeletal: Reports back pain and myalgias; Denies arthralgias Neurologic Neurologic: Reports abnormal gait; Denies dizziness, headache(s), numbness or paresthesias Vital Signs Vital Signs Vital Signs: 08/25/24 13:24 08/25/24 13:28 08/25/24 15:24 Temperature 98.9 F 98.9 F Temperature Source Oral Oral Pulse Rate 104 H 101 H 90 Respiratory Rate 15 16 14 Blood Pressure 148/129 H 148/129 H 164/86 H Blood Pressure Mean 135 135 112 Pulse Ox 100 100 98 Oxygen Delivery Method Room Air Room Air Room Air Weight Weight: 73.5 kg Body Mass Index (BMI) 30.6 Physical Exam Const alert, oriented x3 and no apparent distress Constitutional Narrative: Elderly female, mildly fatigued appearing, laying back in bed and remaining still given moderate tosevere pain with movement, otherwise conversing normally. General Appearance: cooperative HEENT normocephalic, head/scalp atraumatic, hearing grossly normal bilaterally, nasal mucous membranes and turbinates normal and moist oral mucous membranes Eyes PERRL, EOMs intact bilaterally and conjunctivae normal Neck full ROM Chest inspection of chest normal Resp normal respiratory effort, normal air movement, no use of accessory muscles and clear to auscultation bilaterally Cardio regular rate, regular rhythm, no murmurs and peripheral pulses 2+ throughout GI normal to inspection, nondistended, normoactive bowel sounds, soft to palpation,non-tender and non-distended Back/Spine Back/Spine Narrative: Mild tenderness to palpation in low back diffusely, no point tenderness noted. Did not attempt any movement with her. Extremity normal to inspection and no pedal edema Skin no rashes or lesions noted Neuro Speech: speech normal Psych mental status grossly normal Mood & Affect: anxious Results Lab / Micro Data 08/25/24 13:59 08/25/24 13:59 Labs: Laboratory Results - last 24 hr 08/25/24 13:59: WBC 13.2 H, RBC 4.01 L, Hgb 11.9 L, Hct 34.8 L, MCV 86.8, MCH 29.7, MCHC 34.2, RDW Std Deviation 48.9 H, RDW Coeff of James 15.3 H, Plt Count 358, MPV 9.5, Immature Gran % (Auto) 0.500,Neut % (Auto) 83.4 H, Lymph % (Auto)9.9 L, [place] % (Auto) 5.5, Eos % (Auto) 0.2, Baso % (Auto) 0.5, Absolute Neuts (auto) 11.0 H, Absolute Lymphs (auto) 1.31, Nucleated RBC % 0, Sodium 134, Potassium 3.3, Chloride 99, Carbon Dioxide 19.9 L, Anion Gap 16 H, BUN 14, Creatinine 0.65 L, Estim Creat Clear Calc 52.28, Est GFR (MDRD) Non-Af 90, BUN/Creatinine Ratio 21.2 H, Glucose 120 H, Calcium 8.8 08/25/24 15:05: Urine Color Yellow, Urine Clarity Clear, Urine pH 8.0, Ur Specific [place] 1.010, Urine Protein Negative, Urine Glucose (UA) Normal, UrineKetones 5 H, Urine Occult Blood Negative, Urine Nitrite Negative, Urine Bilirubin Negative, Urine Urobilinogen Normal, Ur Leukocyte Esterase Negative, Urine RBC 0-5 SEEN, Urine WBC 0-5 SEEN, Ur Squamous Epith Cells 0 SEEN, Urine Bacteria 0 SEEN,Urine Mucus 0 SEEN Imaging Radiology Impression Lumbar Spine CT 08/25/24 13:45 IMPRESSION: 1. No acute lumbar fracture. 2. 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 Reading Location: [id number] Assessment & Plan Assessment/Plan (1) Acute on chronic low back pain: (2) Back muscle spasm: (3) Unable to ambulate: PLAN: Plan Patient is a 79-year-old female who presented [facility] ED on 08/25/2024 with acuteon chronic low back pain with spasms and inability to ambulate. 1. Acute on chronic low back pain with muscle spasms and inability to ambulate ? Admit under observation status to [facility]. Pain management consulted. PT/OT/case management consulted. Patient with history of chronic low back pain with prior L4-5 fusion in discectomy procedures done at [facility]. Presented with acute muscle spasms that were new for her. CT lumbar spine showed chronic changes but no acute changes on admit. Will treat with scheduledTylenol, lidocaine patch, p.o. oxycodone as needed and IV Dilaudid as needed. Will give 1 dose of p.o. Flexeril for now andsee how she does with this. Will also give 2 doses of IV Decadron. Will hold on obtaining MRI lumbar spine at this time and defer to pain management on this. Patient lives at home with her and would prefer to go home on discharge if possible. 2. Acute urinary retention ? CT lumbar spine showed distended bladder and she had Queen catheter placed in the ED with 900 cc of urine removed. No previous history of urinary retention. Suspect this is secondary to her acute on chronic low back pain with muscle spasms. Would recommend void trial prior to discharge if able. 3. Metastatic breast cancer ? Follows with Dr. Centeno. Has history of breast cancer s/p left mastectomy in 2023 and known liver metastases. Breast cancer ER and HER2 positive. Previously underwent chemotherapy and is now on letrozole and trastuzumab and cancer has remained stable. Notably had MRI of the spine done in early at showed known T2 lesion that is stable and no other concerning findings in the spine. No inpatient needs, continue outpatient follow-up. Chronic medical conditions: ? Anxiety/depression/insomnia: Continue home fluoxetine, alprazolam daily as needed and zolpidem atnight as needed. ? Hypothyroidism: Continue home Synthroid and liothyronine. ? GERD: Continue home PPI. ? Hypertension: Continue home amlodipine and lisinopril. ? History of TIA: Continue home Plavix. DVT prophylaxis: Lovenox CODE STATUS: Full code, verified Expected disposition: TBD Total clinical time spent by myself addressing the patient's medical issues, reviewing all the data, and collaborating with patient's care team: 75 minutes. Charges/Coding Visit Charges Inpatient E&M: 14764 Init Hosp L3 08/25/24 5147 Cosigner Signature (if applicable): CC: Dr. Buzz Alford DO; Dr. Tami Chang MD~ Signed [facility]03-22-2025 Evaluation note* Diagnosis Onset Date Resolution Status Admit Date Fusion of lumbar spine acute [facility] 2024 4:23pm Spondylolisthesis, lumbar region acute August 25, 2024 4:23pm Acute on chronic low back pain chron ic August 25, 2024 4:23pm Acute urinary retention resolved M arch 2024 4:23pm Back muscle spasm resolved August 052024 4:23pm Unable to ambulate resolved August 25, 2024 4:23pm Chronic back pain inactive August 052024 4:23pm Fusion of lumbar spine acute Ap ril 2024 12:28pm Spondylolisthesis, lumbar region acute September 11, 2024 12:28pm [facility] Work Phone: 1(306) 151-190003-22-2025 Evaluation note* Diagnosis Onset Date Resolution Status Admit Date Fusion of lumbar spine acute [facility] 2024 4:23pm Spondylolisthesis, lumbar region acute August 25, 2024 4:23pm Acute on chronic low back pain chron ic August 25, 2024 4:23pm Acute urinary retention resolved [facility] 2024 4:23pm Back muscle spasm resolved August 052024 4:23pm Unable to ambulate resolved August 25, 2024 4:23pm Chronic back pain inactive August 052024 4:23pm Fusion of lumbar spine acute Ap [facility] 2024 12:28pm Spondylolisthesis, lumbar region acute September 11, 2024 12:28pm Dysuria acute December 01 8:49am [facility] Work Phone: 1(332) 179-378203-22-2025 Radiology Diagnostic study note [facility] Imaging Services [address] [place], [place] [address] Spine Lumbar without Contrast MR#: [id number] Acct: [id number] Name: DANETTE BISHOP Rep #: [id number] 1945 F 79 From: Daisy Morton MD PCP: Dr. Tami Chang MD Status: REG ER Study:Spine Lumbar without Contrast Date of E xam: 08/25/24 Exam# [id number] Ordering Dr: Eveline Modi PROCEDURE: SPINE LUMBAR WITHOUT CONTRAST 08/25/2024 REASON FOR EXAM: 79-year-old female, severe back pain/spasms today, history of breast and liver cancer. Unable to ambulate this morning. TECHNIQUE: Lumbar spine CT without contrast. Coronal and Sagittal reconstruction series were provided. One or more dose reduction techniques were used (e.g., Automated exposure control, adjustment of the mA and/or kV according to patient size, use of iterative reconstruction technique COMPARISON: MRI L-spine 11/12/2019. RADIATION DOSE SUMMARY: CTDlvol: 21 mGy DLP: 703 mGycm FINDINGS: Vertebrae: Diffuse osseous demineralization. No acute fracture identified or traumatic listhesis. Prior posterior spinal fixation and instrumentation of the left L4-5 vertebral bodies with interbody disc spacer. Alignment: Trace anterolisthesis of L4 onto L5. Moderate multilevel degenerative disc disease, greatest at T12-L1. Multilevel posterior disc osteophytes and facet hypertrophy resulting in moderate central canal stenosis, greatest at L2-3, and at least moderate bilateral neural foraminal stenosis, greatest at 2 L1-2. Sacrum: The SI joints are maintained. Moderate retained fecal material throughout the visualized colon. The urinary bladder is distended.Calcific plaque of the aortoiliac vessels. CT/Spine Lumbar without Contrast IMPRESSION: 1. No acute lumbar fracture. 2. 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 Reading Location: [facility] CC: Dr. Tami Chang MD; ZARINA Lyons ~ Home Care Liaison: Signed [facility]03-18-2025 [facility] History of Present illness Narrative* Sandra Goodman RN - 08/21/2024 7:56 AM EDT Patient is here for IVAD port flush/blood draw per Nursing [facility] protocol. IVAD is located in right upper chest. Site cleansed with Chloraprep IVAD accessed with a #20 gauge 3/4" non-coring Gripper needle Flush with 5cc's Normal Saline. Blood Return: Good. 10 cc's blood aspirated and discarded. Blood drawn for CBC and CMP. Flushed with: 20 ml Normal Saline. Non-coring needle removed. Paper tape applied to puncture site. Site negative for redness, edema or tenderness. Patient tolerated procedure well. [facility] NoteHNO ID: [id number] Author: GRACY PECK RN Service: ? Author Type: Registered Nurse Type: Progress Notes Filed: 08/03/2024 15:10 Note Text: Assessment unchanged from office visit with Emmett Kelley CNP on 08/01/24. [facility]02-[facility] History of Present illness Narrative* Gracy Peck RN - 08/03/2024 1:23 PM EST Assessment unchanged from office visit with Emmett Kelley CNP on 08/01/24. documented in [facility] encounter[facility]02-[facility]-2025 NoteTr[facility]02-[facility] History of Present illness Narrative* Domenic Kelley APRN.CNP - 08/01/2024 9:57 AM EST Chief Complaint Patient presents with: Established Patient HPI: Danette Bishop is a 79 year old female who presents here today for evaluation for treatment on Tuesday. Per Dr. Centeno's previous note: H/o hypertension, stroke (x2; not on ASA because of h/o bleeding ulcer) and DCIS. Treated for left sided DCIS with lumpectomy and radiation when living in [place] in 2012. Started on tamoxifen but had negative side effects then sounds like she was tried on an aromatase inhibitor but have musculoskeletal side effects and then stopped treatment. Had been getting routine mammography in [place] until 2013. Since has been getting mammogram at [facility]. Most recent was on 12/28/2019. Scattered benign calcifications were observed. There were no dense spiculated masses or suspicious microcalcifications identified. Fairly stable architectural distortion in the left breast with previous surgery. No skin thickening or retraction. Significant change from previous mammogram on 12/05/2018. She developed abdominal pain in July 2020. Initially had an ultrasound on 07/08/2020 that demonstrated a 2.7 x 3.2 x 2.6 cm hypoechoic solid nodule in the right lobe of liver. MRI Liver 08/08/2020: Liver: Multiple solid masses in the right lobe of the liver. Largest of these is seen within the peripheral right lobe of the liver and measures 2.5 x 2.5 cm. Biliary tract: The common bile duct is normal in course and caliber. No filling defect is identified within the common duct. Gallbladder: Unremarkable Pancreatic duct: 7 mm T2 bright lesion involving the pancreatic tail. No dilatation of the pancreatic duct. Spleen: No lesion is identified. Pancreas: The pancreas enhances normally and is without focal lesions. Adrenal glands: No mass is identified Kidneys: Simple appearing cortical cysts involving both kidneys. No hydronephrosis. Possible lesion involving the T6 vertebral body. Postsurgical change involving the left breast. No adenopathy is identified. Imaged lung bases are clear. No pericardial effusion or pericardial thickening. CT of chest, abdomen pelvis revealed no thoracic lymphadenopathy. There was a nonspecific scleroticdensity in the vertebral body of T6. Scarring was noted in the left breast. No pulmonary nodules. CT of the abdomen pelvis reveals scattered hepatic masses favoring metastatic disease. There is left lateral abdominal wall hernia containing nondilated descending colon. Biopsy one of the right lobe of the liver lesions performed on 08/21/2020. Pathology: Metastatic adenocarcinoma with prominent mucinous features. Tumor cells were positive for CK7 and GATA3 and negative for CK20, TTF-1 and Napsin a. ER staining showed weak positivity in approximately 10 to 20% of cells. MN was negative with 0% staining. HER-2 was positive at 3+ on immunohistochemistry stain. 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 Her most recent EGDwas in 2019. That study was done to evaluate epigastric spasms. It was performed by Dr. Rahman with the GI group in [place]. Pathology on the biopsy specimen report was not available but patient said her symptoms stopped when she changed from omeprazole to ease omeprazole. She did not have dysphagia. No odynophagia. No heartburn per se. She denied nausea. She has IBS mostly manifested as constipation. She has chronic intermittent left upper quadrant pain that she attributes to gas. No signs of GI bleeding. Patient lost a son to suicide on July 2020. Underwent EGD on 09/01/2020. Esophageal mucosal changes secondary to established short segment Posadas's disease was present in the lower third esophagus. The maximal longitudinal extent of these changes was 6 mm in length. Biopsies were obtained with cold forceps for histology. The entire examined stomach and duodenum were normal. Pathology: Esophagus, distal, biopsy Cardio-oxyntic mucosa with no diagnostic abnormality. - Negative for intestinal metaplasia. Ultrasound left breast on 09/02/2020 identified a 1.7 x 0.9 x 0.6 cm lobulated mass in the left breast at 1:00 anterior depth. It was hypoechoic and correlated with the mammography findings. It was adjacent to the surgical scar. She was referred for and underwent biopsy on 09/09/2020. Pathology: A. Left breast, needle core biopsy: - Invasive ductal carcinoma with mucinous features, provisional histologic grade 2 (see comment). Estrogen Receptor (ER) Positive (40%) Stain intensity: Moderate to strong Progesterone Receptor (PgR) Positive (1-5%) Stain intensity: Weak HER2 (ERBB2) IMMUNOHISTOCHEMISTRY ASSAY Interpretation: POSITIVE for HER2 (ERBB2) Expression Score: 3+ Whole body bone scan 09/04/2020: Whole body bone scan and spot images demonstrate moderately increased uptake at T12-L1, L4-5 and left L5 facet, corresponding to moderate degenerative change of the thoracolumbar spine and postsurgical change of L4-5 interbody fusion and pedicle alla and screws fixation of the left L4-5 on the abdomen and pelvic CT. Specifically, no abnormally increased or decreased uptake is identified in the mid thoracic spine to correspond to 1.4 cm T6 sclerotic lesion on recent chest CT. There is increased uptake involving both shoulders, sternoclavicular joints, left upper cervical spine, hips, knees, and ankles in a pattern most compatible with degenerative/arthritic disease. If clinically indicated, correlation with radiographs could be obtained at clinical discretion. No other areas of abnormal focal, regional or segmental osseous uptake are seen to suggest the presence of osseous metastatic lesions. INDETERMINATE 1.4 CM T6 SCLEROTIC LESION WITHOUT ASSOCIATED ABNORMAL TRACER UPTAKE IDENTIFIED. MRI thoracic spine 10/02/2020: IMPRESSION: T6 sclerotic focus. Given the lack of activity on the recent bone scan, this is most likely not an active metastatic lesion and may reflect a bone island. No evidence of metastatic disease to the thoracic vertebral bodies. Numerous hepatic metastatic lesions have been evaluated with CT recently. Previous therapy: 1) Docetaxel, pertuzumab and trastuzumab. 2) Trastuzumab and Pertuzumab. Current therapy: 1) Trastuzumab (Ontruzant). 2) Letrozole. Began 03/2021. Underwent left-sided simple mastectomy on 06/28/2023. Pathology: Left breast, mastectomy: - Residual invasive ductal carcinoma, Lorraine grade III, measuring 16 mm in greatest dimension (please see synoptic report and comment). 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 - Microcalcifications in invasive carcinoma, DCIS, changes consistent with prior procedure, and au of blood vessels. - Biopsy site changes, biopsy clip (x1), and changes consistent with prior procedure identified. [facility] 07/01/23 Diagnosis Comment Histologic sections of the grossly-identified 16 mm x 16 mm tumor bed demonstrates residual invasive and in-situ carcinoma. Tumor bed dimension #1: 16 mm Tumor bed dimension #2: 16 mm Invasive tumor cellularity: 50% Ductal carcinoma in situ cellularity: 5% SPECIMEN Procedure Total mastectomy Specimen Laterality Left TUMOR Histologic Type Invasive carcinoma of no special type (ductal) Histologic Grade ([place] Histologic Score) Glandular (Acinar) / Tubular Differentiation Score 3 Nuclear Pleomorphism Score 3 Mitotic Rate Score 3 Overall Grade Grade 3 (scores of 8 or 9) Tumor Size Greatest dimension of largest invasive focus (Millimeters): 16 mm Tumor Focality Single focus of invasive carcinoma Ductal Carcinoma In Situ (DCIS) Present Size (Extent) of DCIS Estimated size (extent) of DCIS is at least (Millimeters): 4 mm Architectural Patterns Solid Nuclear Grade Grade III (high) Necrosis Present, central (expansive "comedo" necrosis) Lobular Carcinoma In Situ (LCIS) Not identified Lymphatic and / or Vascular Invasion Not identified Dermal Lymphatic and / or Vascular Invasion Not identified Microcalcifications Present in DCIS Present in invasive carcinoma Present in non-neoplastic tissue Treatment Effect in the Breast Probable or definite response to presurgical therapy in the invasivecarcinoma MARGINS Margin Status for Invasive Carcinoma All margins negative for invasive carcinoma Distance from Invasive Carcinoma to Closest Margin Greater than: 2 mm Margin Status for DCIS All margins negative for DCIS Distance from DCIS to Closest Margin Greater than: 2 mm REGIONAL LYMPH NODES Regional Lymph Node Status Not applicable (no regional lymph nodes submitted or found) pTNM CLASSIFICATION (AJCC 8th Edition) Reporting of pT, pN, and (when applicable) pM categories is based on information available to the pathologist at the time the report is issued. As per the AJCC (Chapter 1, 8th Ed.) it is the managingphysician s responsibility to establish the final pathologic stage based upon all pertinent information, including but potentially not limited to this pathology report. Modified Classification y pT Category pT1c pN Category pN not assigned (no nodes submitted or found) Breast Biomarker Testing Performed on Previous Biopsy Estrogen Receptor (ER) Status Positive (greater than 10% of cells demonstrate nuclear positivity) Percentage of Cells with Nuclear Positivity 40 % Breast Biomarker Testing Performed on Previous Biopsy Progesterone Receptor (PgR) Status Positive Percentage of Cells with Nuclear Positivity 1-5 % Breast Biomarker Testing Performed on Previous Biopsy HER2 (by immunohistochemistry) Positive (Score 3+) Percentage of Cells with Uniform Intense Complete Membrane Staining 90 % URI resolved. Pt. here today with spouse. Appetite:"Too good." Wt. stable. Energy level:"Fair." Denies fevers. Mouth:denies sores Resp:denies cough or sob Cardiac:denies chest pain/palpitations GI:denies abd pain, n/v, moving bowels regularly-taking metamucil :denies dysuria/hematuria Extrem:denies new pain Neuro:denies symptoms of neuropathy Skin:denies rashes Heme:denies bleeding The ROS is otherwise negative. Past medical history, appointments, medications, allergies reviewed. No changes. EXAM: BP 130/77 Pulse 80 Temp 36.5 C (97.7 F) Wt 69.8 kg (153 lb 14.1 oz) SpO2 94% BMI 28.60 kg/m APPEARANCE Well appearing, alert, in no acute distress, well-hydrated, well nourished. MOUTH no mucositis/thrush HEART RRR with normal S1 and S2, no murmurs LUNG clear to auscultation BREAST FEMALE L mastectomy scar, +seroma, no new nodule/skin changes LYMPH NODES No cervical lymphadenopathy, No supraclavicular lymphadenopathy, and No axillary lymphadenopathy. ABDOMEN bowel sounds normoactive, soft, non-tender EXTREMITIES No edema NEURO Awake, alert and oriented x 3, Normal gait, and No involuntary motions. SKIN Skin color, texture, turgor normal, no suspicious rashes or lesions LABS: Latest Ref Rng 06/19/2024 07/10/2024 07/31/2024 WBC 3.70 - 11.00 k/uL 8.17 6.07 5.64 RBC 3.90 - 5.20 m/uL 3.99 3.90 3.96 Hemoglobin 11.5 - 15.5 g/dL 11.8 11.5 11.8 Hematocrit 36.0 - 46.0 % 35.2 (L) 34.5 (L) 34.8 (L) MCV 80.0 - 100.0 fL 88.2 88.5 87.9 MCH 26.0 - 34.0 pg 29.6 29.5 29.8 MCHC 30.5 - 36.0 g/dL 33.5 33.3 33.9 RDW-CV 11.5 - 15.0 % 15.1 (H) 15.7 (H) 15.4 (H) Platelet Count 150 - 400 k/uL 523 (H) 336 323 MPV 9.0 - 12.7 fL 8.9 (L) 9.0 9.5 Neut% % 63.4 66.5 65.3 Abs Neut (ANC) 1.45 - 7.50 k/uL 5.18 4.03 3.69 Lymph% % 27.7 22.2 24.8 Abs Lymph 1.00 - 4.00 k/uL 2.26 1.35 1.40 [place]% % 6.4 6.9 5.9 Abs [place] <0.87 k/uL 0.52 0.42 0.33 Eosin% % 1.2 2.6 2.0 Abs Eosin <0.46 k/uL 0.10 0.16 0.11 Baso% % 1.1 1.6 1.6 Abs Baso <0.11 k/uL 0.09 0.10 0.09 Immature Gran % % 0.2 0.2 0.4 IMMATURE GRANS (ABS) <0.10 k/uL <0.03 <0.03 <0.03 NRBC /100 WBC 0.0 0.0 0.0 Absolute nRBC <0.01 k/uL <0.01 <0.01 <0.01 DTYPE Auto Auto Auto Latest Ref Rng 06/19/2024 07/10/2024 07/31/2024 Protein, Total 6.3 - 8.0 g/dL 7.0 6.7 6.8 Albumin 3.9 - 4.9 g/dL 4.0 4.2 4.0 Calcium 8.5 - 10.2 mg/dL 9.3 9.1 9.3 Bilirubin, Total 0.2 - 1.3 mg/dL 0.5 0.8 0.6 Alkaline Phosphatase 34 - 123 U/L 98 87 78 AST 13 - 35 U/L 13 14 14 ALT 7 - 38 U/L 13 15 10 Glucose 74 - 99 mg/dL 94 94 90 BUN 7 - 21 mg/dL 17 15 14 Creatinine 0.58 - 0.96 mg/dL 0.64 0.64 0.67 Sodium 136 - 144 mmol/L 131 (L) 135 (L) 136 Potassium 3.7 - 5.1 mmol/L 4.4 4.2 4.2 Chloride 98 - 107 mmol/L 96 (L) 100 100 CO2 22 - 30 mmol/L 26 26 24 Anion Gap 8 - 15 mmol/L 9 9 12 eGFR >=60 mL/min/1.73m 90 90 89 RADIOLOGY: PET scan 07/11/24: IMPRESSION Since 03/26/2024, PRIMARY DISEASE SITE: * No metabolically active recurrent mass in the left mastectomy bed. * Grossly stable left chest wall seroma without internal gas. * Lenticular metabolism along the left serratus musculature is favored to be physiologic. LATASHA DISEASE: * No metabolically active regional lymphadenopathy. METASTATIC DISEASE: * No metabolically active distant metastases. ADDITIONAL FINDINGS: * Asymmetric metabolism in the right nasopharynx could be inflammatory. Consider direct visualization to exclude an underlying lesion given smoking history. * Findings suggestive of an interstitial lung anomaly, potentially treatment-related. Consider pulmonary consultation. ASSESSMENT/PLAN: 1. Malignant neoplasm of female breast, unspecified estrogen receptor status, unspecified laterality, unspecified site of breast (HCC) - ICD9: 174.9, ICD10: C50.919 (primary diagnosis) 2. HER2-positive carcinoma of left breast (HCC) - ICD9: 174.9, ICD10: C50.912, Z17.[address] Centeno's previous note: Assessment: -The patient is a 78-year-old female with a past medical history significant for DCIS of the left breast who was found to have metastatic adenocarcinoma (liver) consistent with breast primary after presenting with epigastric pain. -KPS is 100%. -s/p left simple mastectomy. -No symptoms, exam or echocardiographic findings of cardiomyopathy. -Will discuss every 3 month Zometa. -Continues to tolerate trastuzumab well. Recent echocardiogram in April showed no evidence of left ventricular dysfunction. Plan: -Due for echocardiogram in October. -Continue letrozole. -Continue trastuzumab. -Monitor CBC & CMP every 3 weeks & OV every 6 weeks. -Repeat MRI and PET scan. (D75.118) Thrombocytosis Assessment: -Discussed common etiologies. Potential iron deficiency based on chronic PPI use and recent endoscopy findings. Plan: -Check iron studies. -Trial of oral iron if low. (J06.9) Viral URI Assessment: -Symptoms resolving but still having left eustachian tube dysfunction. Plan: -Advised a trial of Santosh-Synephrine nasal spray for several days. - Tolerating femara/ontruzant well. - Reviewed labs/PET with pt. and spouse. - Multiple questions answered. - Continue femara. - Continue current medications. - Due for ECHO. - Proceed as scheduled for ontruzant on Tuesday. - Follow up as scheduled. - Pt. aware to call office with any questions/concerns. SENSITIVE EXAMINATION CONSENT: The sensitive examination was discussed with the Patient or Patient's Authorized Vat Washer. Asapplicable, any other physician, advance practice provider, medical student, or other health professional student that will be observing or involved in the sensitive examination for educational or training purposes was discussed with the Patient or Authorized Vat Washer. The Patient or Authorized Vat Washer has agreed to proceed with the sensitive examination. (Sensitive examination includes inspection and/or palpation of the breasts, pelvis, prostate and anorectal regions) The patient indicates understanding of these issues and agrees with the plan. All documentation from previous visit of 06/21/24-Dr. Centeno was copied and pasted, documentation hasbeen reviewed and edited as necessary for today's visit. Domenic Kelley APRN.BEA documented in this encounterFort [facility]02-[facility]-2025 NoteTrumbull [facility]02-10-[facility]25 History of Present illness Narrative* Dominic Fonseca - 07/16/2024 2:45 PM EST [facility] - HISTORY AND PHYSICAL Patient would like to see someone today. Chief Complaint: incisional left flank hernia HPI: Danette Bishop is a 76 year old female with a PMH significant for HTN, TIA, stage IV breast CA, barretts and gastric ulcer who presents with a left flank hernia after an XLIF in 2014. Interval changes: She was last seen in 2020. She had a small incisional left flank hernia for which she was asymptomatic. Decision was made to keep an eye for it and not to undergo repair. She is here today as she has had episodes of pain 2 weeks ago associated with constipation. Symptoms have resolved since them. Relevant previous operations include: -Lumpectomy and radiation 2012 -XLIF 2014 -Microdiscectomy First noticed Mar 2021. Frequent pain Not enlarging No episodes of incarceration Recurrent constipation No history of Psychiatric Disorders or Opioid Use Independent No employment Unknown Hypertension, Anti-platelet medications (single agent plavix for TIA), Stage IV breast CA on N/A PAST MEDICAL HISTORY Diagnosis Date Breast cancer (HCC) 2012 left Breast cancer (HCC) 04/2023 local recurrence on left GI bleed 2009 Hypertension Liver nodule TIA (transient ischemic attack) 2012 PAST SURGICAL HISTORY Procedure Laterality Date COLONOSCOPY every 5 yrs due to f/h colon cqan all normal per pt EGD GERD EGD 09/01/2020 Repeat in 2 years INSJ TUNNELED CTR VAD W/SUBQ PORT AGE 5 YR/> 09/29/2020 PAST SURGICAL HISTORY OF thyroid removal PAST SURGICAL HISTORY OF left breast 2 episodes of DCIS PAST SURGICAL HISTORY OF back surgeries times 2 Social History Tobacco Use Smoking status: Former Current packs/day: 0.00 Types: Cigarettes Start date: 09/17/1963 Quit date: 09/16/1965 Years since quittin.8 Smokeless tobacco: Never Tobacco comments: Pt smoked 2-3 cigarettes daily x 2 years. Vaping Use Vaping status: Never Used Substance Use Topics Alcohol use: Yes Comment: moderate Drug use: No Additional social history not relevant to the patient's HPI FAMILY HISTORY Problem Relation Age of Onset Colon Cancer Mother mets to stomach Stroke Father at age 62 Breast Cancer Sister 85 Heart disease Paternal Grandmother CAD Additional family history not relevant to the patient's HPI ALLERGIES Allergen Reactions Adhesive Tape-Silic* Rash Shellfish Derived Swelling Current Outpatient Medications Medication Sig Dispense Refill guaifenesin/dextromethorphan (CORICIDIN HBP CHEST CROW-COUGH ORAL) Take by mouth. amLODIPine (NORVASC) 5 mg tablet Take 5 mg by mouth daily at bedtime. multivit-min/ferrous fumarate (MULTI VITAMIN ORAL) Take 1 tablet by mouth once daily. letrozole (FEMARA) 2.5 mg tablet Take 1 tablet by mouth once daily. 30 tablet 11 clopidogrel (PLAVIX) 75 mg tablet Take 1 tablet by mouth once daily. Patient should start on December 20, 2023. 90 tablet 3 HYDROcodone-acetaminophen (NORCO) 5-325 mg per tablet Take 1 tablet by mouth every 6 hours as needed for pain for up to 3 days. 10 tablet 0 FLUoxetine (PROZAC) 40 mg capsule Take 1 capsule by mouth once daily. levothyroxine (SYNTHROID) 112 mcg tablet Take 112 mcg by mouth once daily. liothyronine (CYTOMEL) 5 mcg tablet Take 5 mcg by mouth once daily. lisinopril (ZESTRIL, PRINIVIL) 20 mg tablet Take 20 mg by mouth once daily. esomeprazole (NEXIUM) 40 mg capsule Take 40 mg by mouth DAILY (6 AM). ACETAMINOPHEN (TYLENOL ORAL) Take by mouth. zolpidem (AMBIEN) 10 mg tab Take 10 mg by mouth daily at bedtime. ALPRAZolam (XANAX) 0.5 mg tablet Take 0.5 mg by mouth at bedtime as needed. No current facility-administered medications for this visit. REVIEW OF SYSTEMS PAIN ASSESSMENT: Negative for pain, history of chronic pain, or current treatment for a chronic pain condition. GENERAL: Negative RESPIRATORY: Negative for cough, hemoptysis, wheezing, COPD, dyspnea or shortness of breath CARDIOVASCULAR: Negative for chest pain, leg swelling, hypertension, CHF or palpitations GI: No nausea, vomiting, or diarrhea : No history of dysuria, frequency or incontinence MUSCULOSKELETAL: Negative for joint pain or swelling, back pain or muscle pain The remainder of the 12 review of systems is negative other than what was mentioned in the HPI and above. BP 150/64 Pulse 68 Temp 36.4 C (97.5 F) (Tympanic) Ht 156.2 cm (5' 1.5") Wt 69.9 kg (154 lb) BMI 28.63 kg/m Physical findings of this patient are as follows (COMPLETE 10 INCLUDING HEART AND LUNG EXAM OR CHOOSE NORMAL EXAM IF APPROPRIATE): Physical Exam Physical Exam Constitutional: The patient is well-developed, well-nourished, and in no distress. Head: Normocephalic and atraumatic. Eyes: Pupils are equal, round, and reactive to light. EOM are normal. Neck: Normal range of motion. Neck supple. Cardiovascular: Regular rhythm and normal heart sounds. Pulmonary/Chest: Effort normal and breath sounds normal. Abdominal: Soft. Reducible small left flank hernia. Musculoskeletal: Normal range of motion. Neurological: He is alert. GCS score is 15. Skin: Skin is warm and dry. Psychiatric: Affect and judgment normal. LABS: Reviewed IMAGING - Reviewed PET CT 07/2024 - left flank hernia containing colon. Assessment: Danette Bishop is a 76 year old female with a PMH significant for HTN, TIA, stage IV breast CA, barretts and gastric ulcer who presents with a left flank hernia after an XLIF in 2014. She had symptoms of pain and constipation that resolved. We had a hever discussion on options of watchful waitifig vs elective repair, open vs. MIS repair and goals of surgery with regards to improvement of QoL. I educated patient on symptoms of acute incarcerated and strangulation and recommended s eeking emergent medical care if those arise. She and her understands and her options is to continue watchful waiting for now. We recommended adding fiber and increasing water intake to help with her constipation Plan: -patient elects to continue watchful waiting -She will call the office if she would like to proceed with surgery Dominic Fonseca MD General Surgery * Swapna Baker - 07/16/2024 2:00 PM EST What is the reason for your visit today? est Who is your referring physician? Dr. Zazueta Are you having poor oral intake? NO Have you had unintentional weight loss of 15 lbs/7 Kg in the last 3-6 months? NO Bowels: constipated or regular Wound: clean & dry Temperature: No Drains: No documented in this encounterFort Hamilton Hospital02-10-2025 NoteTrumbull [facility]02-05-2025 NoteHNO ID: [id number] Author: PAOLA WALKER RT(R) Service: ? Author Type: Director Product Type: Progress Notes Filed: 07/11/2024 08:47 Note Text: RADIOLOGY SERVICE PROGRESS NOTE SERVICE DATE: 07/11/2024 SERVICE TIME: 8:46 AM PATIENT IDENTITY VERIFICATION COMPLETED USING TWO (2) STANDARD IDENTIFIERS: Name and Date of confirmed by patient verbally and Name and Date of confirmed by identification band FALL SCREENING: Has the patient had 2 falls in the last year or 1 fall with injury or currently using an Ambulatory Assistive Device (Walker, Cane, Wheelchair, Crutches, etc.)? No PATIENT GENDER DATA: .female : No ALLERGIES: NA MEDICATIONS REVIEWED: Not applicable PATIENT RELEVANT IMPLANT DATA REVIEWED: Not Applicable PATIENT PRESENTS WITH AN IMPLANTABLE OR ATTACHED GARNETTER: NA CREATININE: Creatinine Date Value Ref Range Status 07/10/2024 0.64 0.58 - 0.96 mg/dL Final 06/19/2024 0.64 0.58 - 0.96 mg/dL Final 05/29/2024 0.68 0.58 - 0.96 mg/dL Final Estimated Glomerular Filtration Rate Date Value Ref Range Status 07/10/2024 90 >=60 mL/min/1.73m? Final Comment: Estimated Glomerular Filtration Rate (eGFR) is calculated using the 2020 CKD-EPI creatinine equation. This equation utilizes serum creatinine, sex, and age as parameters. The creatinine assay has traceable calibration to isotope dilution-mass spectrometry. Refer to KDIGO guidelines for clinical interpretation. In patients with unstable renal function, e.g. those with acute kidney injury, the eGFR may not accurately reflect actual GFR. eGFR- Date Value Ref Range Status 07/27/2021 >60 Final P.O.C.T. RESULTS: POC done: Yes, See Lab Tab July 11, [address] PERFORMED: No IV SITE: Ambulatory: A peripheral IV was started in the Right antecubital site with a Angio cath: 22 gauge. POST EXAM PIV STATUS: Discontinued PROCEDURE TYPE: NM INJECT: PET/CT BODY SCAN. 8.6 mCi F18 FDG. No other medications given.. ADMINISTRATION TIME: 0840 PATIENT DISCHARGED TO: Ambulatory patient, left OR department area. Is this a therapy: No A Diagnostic radioactive procedure has taken place, with no further precautions necessary other than routine body substance precautions. More information regarding radiation safety can be found using this link: [email or web address] SIGNATURE: RT Jhonathan(R) PATIENT NAME: Danette Bishop DATE: July 11, 2024 TIME: 8:46 AM PAGER/CONTACT #:[facility]02-05-2025 History of Present illness Narrative* Paola Walker RT(R) - 07/11/2024 8:46 AM EST RADIOLOGY SERVICE PROGRESS NOTE SERVICE DATE: 07/11/2024 SERVICE TIME: 8:46 AM PATIENT IDENTITY VERIFICATION COMPLETED USING TWO (2) STANDARD IDENTIFIERS: Name and Date of confirmed by patient verbally and Name and Date of confirmed by identification band FALL SCREENING: Has the patient had 2 falls in the last year or 1 fall with injury or currently using an Ambulatory Assistive Device (Walker, Cane, Wheelchair, Crutches, etc.)? No PATIENT GENDER DATA: .female : No ALLERGIES: NA MEDICATIONS REVIEWED: Not applicable PATIENT RELEVANT IMPLANT DATA REVIEWED: Not Applicable PATIENT PRESENTS WITH AN IMPLANTABLE OR ATTACHED GARNETTER: NA CREATININE: Creatinine Date Value Ref Range Status 07/10/2024 0.64 0.58 - 0.96 mg/dL Final 06/19/2024 0.64 0.58 - 0.96 mg/dL Final 05/29/2024 0.68 0.58 - 0.96 mg/dL Final Estimated Glomerular Filtration Rate Date Value Ref Range Status 07/10/2024 90 >=60 mL/min/1.73m Final Comment: Estimated Glomerular Filtration Rate (eGFR) is calculated using the 2020 CKD-EPI creatinine equation. This equation utilizes serum creatinine, sex, and age as parameters. The creatinine assay has traceable calibration to isotope dilution- mass spectrometry. Refer to KDIGO guidelines for clinical interpretation. In patients with unstable renal function, e.g. those with acute kidney injury, the eGFRmay not accurately reflect actual GFR. eGFR- Date Value Ref Range Status 07/27/2021 >60 Final P.O.C.T. RESULTS: POC done: Yes, See Lab Tab July 11, [address] PERFORMED: No IV SITE: Ambulatory: A peripheral IV was started in the Right antecubital site with a Angio cath: 22 gauge. POST EXAM PIV STATUS: Discontinued PROCEDURE TYPE: NM INJECT: PET/CT BODY SCAN. 8.6 mCi F18 FDG. No other medications given.. ADMINISTRATION TIME: 0840 PATIENT DISCHARGED TO: Ambulatory patient, left [place] department area. Is this a therapy: No A Diagnostic radioactive procedure has taken place, with no further precautions necessary other than routine body substance precautions. More information regarding radiation safety can be found usingEuroffices link: [email or web address]%20Nuclear%[email or web address] SIGNATURE: ABDULAZIZ Ring) PATIENT NAME: Danette Bishop DATE: July 11, 2024 TIME: 8:46 AM PAGER/CONTACT #: documented in this encounterFort Hamilton Hospital02-03-2025 History of Present illness Narrative* Eveline Gaitan RT(R) - 07/09/2024 9:30 AM EST Radiology Service Progress Note PATIENT NAME: Danette Bishop DATE OF SERVICE: July 09, 2024 TIME: 9:33 AM PATIENT IDENTITY VERIFICATION COMPLETED USING TWO (2) IDENTIFIERS: Name and Date of confirmedby patient verbally. FALL SCREENING: Has the patient had 2 falls in the last year or 1 fall with injury or currently using an Ambulatory Assistive Device (Walker, Cane, Wheelchair, Crutches, etc.)? No PATIENT GENDER DATA: Assigned female at . status: : No status:NO. PATIENT RELEVANT IMPLANT DATA REVIEWED: Yes PATIENT PRESENTS WITH AN IMPLANTABLE OR ATTACHED GARNETTER: No RADIOLOGY DEPARTMENT: MR; Exam(s) Completed: Body: Liver (routine) PERIPHERAL IV DATA: Site assessment: Clean,Dry and Intact, Site disposition Discontinued SIGNED BY: ABDULAZIZ Moran) July 09, 2024 9:33 AM documented in this encounterFort Hamilton Hospital02-03-2025 NoteTr[facility]ull [facility]02-03-2025 NoteTrumbull [facility]02-03-2025 History of Present illness Narrative* Sandra Goodman RN - 07/09/2024 7:38 AM EST Patient is here for IVAD port flush per Nursing [facility] protocol. IVAD is located in right upper chest. Site cleansed with Chloraprep IVAD accessed with a #20 gauge 3/4" non-coring Gripper needle Blood Return: Good Flushed with: 20 ml Normal Saline Non-coring needle removed. Paper tape applied to puncture site. Port site negative for redness, edema or tenderness. Patient tolerated procedure well. documented in this encounterFort Hamilton Hospital01-31-2025 Telephone encounter Note * Telephone Encounter - Daria Urrutia - 07/06/2024 11:56 AM EST Spoke with pt and this has been scheduled. Daria Urrutia [facility]01-31-2025 Miscellaneous Notes* Telephone Encounter - Daria Urrutia - 07/06/2024 11:56 AM EST Spoke with pt and this has been scheduled. Daria Urrutia * Telephone Encounter - Lovely Perales PSS - 07/06/2024 11:34 AM EST Pt would like to use port for appt on 07/09/24 for MRI Please call pt with time [facility] Telephone encounter Note * Telephone Encounter - Lovely Perales PSS - 07/06/2024 11:34 AM EST Pt would like to use port for appt on 07/09/24 for MRI Please call pt with time [facility]01-30-2025 Telephone encounter Note* Telephone Encounter - Marcelo Bhatia LPN - 07/05/2024 3:07 PM EST Received operative reports from [facility]. Scanned into chart under outside procedures orthopedics. Marcelo Bhatia LPN [facility]01-30-2025 Telephone encounter Note* Telephone Encounter - Marcelo Bhatia LPN - 07/05/2024 3:07 PM EST Contacted [facility] spoke with Deepika . Advised of the following records needed for upcoming appointment: Operatie reports Deepika to have faxed to [facility], will monitor for fax. Marcelo Bhatia LPN [facility]01-30-2025 Miscellaneous Notes* Telephone Encounter - Marcelo Bhatia LPN - 07/05/2024 3:07 PM EST Received operative reports from [facility]. Scanned into chart under outside procedures orthopedics. Marcelo Bhatia LPN * Telephone Encounter - Marcelo Bhatia LPN - 07/05/2024 3:07 PM EST Contacted [facility] spoke with Deepika . Advised of the following records needed for upcoming appointment: Operatie reports Deepika to have faxed to [facility], will monitor for fax. Marcelo Bhatia LPN * Telephone Encounter - Marcelo Bhatia LPN - 07/05/2024 3:03 PM EST Called and spoke to pt, verified name and . Regarding prior ABD or Flank sx's. Pt informed this development writer that she had spinal sx where they had entered through the flank performed at [facility] between 2015 and 2019 . Thanked pt for her time and advised her of appt date and time. Pt acknowledged and verbalized understanding. Marcelo Bhatia LPN documented in [facility] encounter[facility] Telephone encounter Note * Telephone Encounter - Marcelo Bhatia LPN - 07/05/2024 3:03 PM EST Called and spoke to pt, verified name and . Regarding prior ABD or Flank sx's. Pt informed this development writer that she had spinal sx where they had entered through the flank performed at [facility] between 2015 and 2019 . Thanked pt for her time and advised her of appt date and time. Pt acknowledged and verbalized understanding. Marcelo Bhatia LPN [facility]01-[facility] Telephone encounter Note* Telephone Encounter - Ramila Bolaños RN - 07/02/2024 3:52 PM EST Patient is scheduled to see Dr. Zazueta on 07/16/24. Ramila Bolaños RN [facility]01-27-2025 Miscellaneous Notes* Telephone Encounter - Ramila Bolaños RN - 07/02/2024 3:52 PM EST Patient is scheduled to see Dr. Zazueta on 07/16/24. Ramila Bolaños RN * Telephone Encounter - Ramila Bolaños RN - 07/02/2024 3:26 PM EST Surgeons office replied to patients message requesting that patient call their office to set up an appointment. Ramila Bolaños RN documented in [facility] encounter[facility] Telephone encounter Note * Telephone Encounter - Ramila Bolaños RN - 07/02/2024 3:26 PM EST Surgeons office replied to patients message requesting that patient call their office to set up an appointment. Ramila Bolaños RN [facility]01-27-2025 Telephone encounter Note* Telephone Encounter - Christiano Centeno DO - 07/02/2024 2:37 PM EST She also got in touch with the surgeons office via [employer] message and asked for any needed imagingto be done in [place]. I will message her back to let her know to see what he says. Christiano Centeno DO [facility]01-27-2025 Miscellaneous Notes* Telephone Encounter - Christiano Centeno DO - 07/02/2024 2:37 PM EST She also got in touch with the surgeons office via [employer] message and asked for any needed imagingto be done in [place]. I will message her back to let her know to see what he says. Christiano Centeno DO * Telephone Encounter - Ramila Bolaños RN - 07/02/2024 11:59 AM EST Care Coordination Triage Note [facility] Situation: Patient reports Pain/Back or Spine Pain/Headache. Background: Metastatic ER-positive, HER2 positive breast cancer. Kanjinti/letrozole. Patient stated the pain she is experiencing could be caused from a left flank hernia. Reviewed recent scans. CT 05/25/21 noted "Stable left flank hernia containing nondilated colon." CT 08/12/2021 noted "Left lateral hernia containing a portion of the descending colon" CT 11/03/2021 noted "LEFT lateral abdominal wall hernia containing nondilated loop of descending colon" MRI 06/14/2022 noted "Left lateral abdominal hernia containing bowel without obstruction." MRI 01/02/2024 noted "Small hiatal hernia. No bowel dilatation or wall thickening " Nothing mentioned in recent scan about hernia. Patient had an OV with Dr. Zazueta from general surgery on 07/06/2021. Patient opted to put surgery off and the discomfort she had from the hernia self resolved. Patient had a colonoscopy/EGD at [facility] on 05/23/[address] Zamudio. Assessment: GENERALIZED PAIN Where is the pain? "It's mostly in the left abdominal area". Near left rib cage. When did you first notice the pain? 4 weeks, "it's gotten worse over the last 10 days". How intense is the pain right now (scale of 1-10)? "When I try to lay down on it, its 9". / whenshe is not laying down. No pain with standing. How do you describe the pain: "stabbing, throbbing" Does the pain radiate anywhere? yes If yes, where? If she lays on her left side the pain radiates, "from that area probably 8-10 inches around". Has the pain changed since it started? Pain has gotten worse over the last 10 days; pain is constant now versus intermittent before. Is the pain constant or intermittent? Constant What makes it better? Positional changes, getting up, sleeping in a recliner so she isn't "putting pressure on that area" What makes it worse? Laying on back, stomach, sides. Have you had this pain before? "Not this severe". What are you taking anything for the pain? Taking hydrocodone PRN 1/2 tablet- doesn't help with pain. Tylenol- doesn't help with pain. Are you doing anything else to help with the pain other than medications? tried heat "resolves it for a little while". Denies bruising or skin color changes BACK/SPINE PAIN-- has chronic lower back pain. Started after XLIF back in 2014. Does it radiate to the legs or arms? No Do you have any weakness in your upper or lower extremities? no Any new numbness or tingling in the hands or feet? No, has arthritis in hands Any difficulty urinating or having a bowel movement? no Patient stated she had a bad cold for 3 weeks. Patient was negative for COVID/flu. Cough: resolved. Pain with breathing: no SOB: no Fever: no Chills: no N/V: no Diarrhea: no Constipation: sometimes. Metamucil or a stool softener which helps. Last BM- this morning. "Very dark, kind've a tarry color", started after her colonoscopy at [facility] middle of May 2024. Patient isnot sure if the pain started right after the colonoscopy. Patient stated "I think it was a couple weeks after when the pain got worse". Recommendations: Per RNCC, will disucss with Dr. Taryn Bolaños RN July 02, 2024 12:01 PM documented in this encounterFort [facility]01-[facility] Telephone encounter Note * Telephone Encounter - Ramila Bolaños RN - 07/02/2024 11:59 AM EST Care Coordination Triage Note [facility] Situation: Patient reports Pain/Back or Spine Pain/Headache. Background: Metastatic ER-positive, HER2 positive breast cancer. Kanjinti/letrozole. Patient stated the pain she is experiencing could be caused from a left flank hernia. Reviewed recent scans. CT 05/25/21 noted "Stable left flank hernia containing nondilated colon." CT 08/12/2021 noted "Left lateral hernia containing a portion of the descending colon" CT 11/03/2021 noted "LEFT lateral abdominal wall hernia containing nondilated loop of descending colon" MRI 06/14/2022 noted "Left lateral abdominal hernia containing bowel without obstruction." MRI 01/02/2024 noted "Small hiatal hernia. No bowel dilatation or wall thickening " Nothing mentioned in recent scan about hernia. Patient had an OV with Dr. Zazueta from general surgery on 07/06/2021. Patient opted to put surgery off and the discomfort she had from the hernia self resolved. Patient had a colonoscopy/EGD at [facility] on 05/23/[address] Zamudio. Assessment: GENERALIZED PAIN Where is the pain? "It's mostly in the left abdominal area". Near left rib cage. When did you first notice the pain? 4 weeks, "it's gotten worse over the last 10 days". How intense is the pain right now (scale of 1-10)? "When I try to lay down on it, its 9". 06/15 whenshe is not laying down. No pain with standing. How do you describe the pain: "stabbing, throbbing" Does the pain radiate anywhere? yes If yes, where? If she lays on her left side the pain radiates, "from that area probably 8-10 inches around". Has the pain changed since it started? Pain has gotten worse over the last 10 days; pain is constant now versus intermittent before. Is the pain constant or intermittent? Constant What makes it better? Positional changes, getting up, sleeping in a recliner so she isn't "putting pressure on that area" What makes it worse? Laying on back, stomach, sides. Have you had this pain before? "Not this severe". What are you taking anything for the pain? Taking hydrocodone PRN 1/2 tablet- doesn't help with pain. Tylenol- doesn't help with pain. Are you doing anything else to help with the pain other than medications? tried heat "resolves it for a little while". Denies bruising or skin color changes BACK/SPINE PAIN-- has chronic lower back pain. Started after XLIF back in 2014. Does it radiate to the legs or arms? No Do you have any weakness in your upper or lower extremities? no Any new numbness or tingling in the hands or feet? No, has arthritis in hands Any difficulty urinating or having a bowel movement? no Patient stated she had a bad cold for 3 weeks. Patient was negative for COVID/flu. Cough: resolved. Pain with breathing: no SOB: no Fever: no Chills: no N/V: no Diarrhea: no Constipation: sometimes. Metamucil or a stool softener which helps. Last BM- this morning. "Very dark, kind've a tarry color", started after her colonoscopy at [facility] middle of May 2024. Patient isnot sure if the pain started right after the colonoscopy. Patient stated "I think it was a couple weeks after when the pain got worse". Recommendations: Per RNCC, will disucss with Dr. Taryn Bolaños RN July 02, 2024 12:01 PM [facility]01-18-[facility]25 Evaluation note* Diagnosis Onset Date Resolution Status Admit Date Protracted URI acute June 232024 1:22pm Fusion of lumbar spine acute [facility] 2024 4:23pm Spondylolisthesis, lumbar region acute August 25, 2024 4:23pm Acute on chronic low back pain chronic August 25, 2024 4:23pm Acute urinary retention resolved [facility] 2024 4:23pm Back muscle spasm resolved August 052024 4:23pm Unable to ambulate resolved August 25, 2024 4:23pm Chronic back pain inactive August 052024 4:23pm Fusion of lumbar spine acute Ap 2024 12:28pm Spondylolisthesis, lumbar region acute September 11, 2024 12:28pm [facility] Work Phone: [phone]) 686-307801-17-2025 Telephone encounter Note* Telephone Encounter - Kika Guillermo - 06/22/2024 8:39 AM EST Called patient and scheduled as directed [facility]01-17-2025 Miscellaneous Notes* Telephone Encounter - Kika Guillermo - 06/22/2024 8:39 AM EST Called patient and scheduled as directed * Telephone Encounter - Kika Guillermo - 06/21/2024 1:23 PM EST Iron studies when here for treatment tomorrow. MRI and PET scan when able. As scheduled otherwise. documented in this encounterFort [facility] Hospital01-16-2025 Telephone encounter Note * Telephone Encounter - Kika Guillermo - 06/21/2024 1:23 PM EST Iron studies when here for treatment tomorrow. MRI and PET scan when able. As scheduled otherwise. [facility]16[facility] History of Present illness Narrative* Christiano Centeno DO - 06/21/2024 9:26 AM EST Oncologic problem(s): 1) Metastatic ER-positive, HER2 positive breast cancer. HPI: The patient is a 79-year-old female with past medical history significant for hypertension, stroke (x2; not on ASA because of h/o bleeding ulcer) and DCIS. Treated for left sided DCIS with lumpectomy and radiation when living in [place] in 2012. Started on tamoxifen but had negative side effects then sounds like she was tried on an aromatase inhibitor but have musculoskeletal side effects and then stopped treatment. Had been getting routine mammography in [place] until 2013. Since has been getting mammogram at [facility]. Most recent was on 12/28/2019. Scattered benign calcifications were observed. There were no dense spiculated masses or suspicious microcalcifications identified. Fairly stable architectural distortion in the left breast with previous surgery. No skin thickening or retraction. Significant change from previous mammogram on 12/05/2018. She developed abdominal pain in July 2020. Initially had an ultrasound on 07/08/2020 that demonstrated a 2.7 x 3.2 x 2.6 cm hypoechoic solid nodule in the right lobe of liver. MRI Liver 08/08/2020: Liver: Multiple solid masses in the right lobe of the liver. Largest of these is seen within the peripheral right lobe of the liver and measures 2.5 x 2.5 cm. Biliary tract: The common bile duct is normal in course and caliber. No filling defect is identified within the common duct. Gallbladder: Unremarkable Pancreatic duct: 7 mm T2 bright lesion involving the pancreatic tail. No dilatation of the pancreatic duct. Spleen: No lesion is identified. Pancreas: The pancreas enhances normally and is without focal lesions. Adrenal glands: No mass is identified Kidneys: Simple appearing cortical cysts involving both kidneys. No hydronephrosis. Possible lesion involving the T6 vertebral body. Postsurgical change involving the left breast. No adenopathy is identified. Imaged lung bases are clear. No pericardial effusion or pericardial thickening. CT of chest, abdomen pelvis revealed no thoracic lymphadenopathy. There was a nonspecific scleroticdensity in the vertebral body of T6. Scarring was noted in the left breast. No pulmonary nodules. CT of the abdomen pelvis reveals scattered hepatic masses favoring metastatic disease. There is left lateral abdominal wall hernia containing nondilated descending colon. Biopsy one of the right lobe of the liver lesions performed on 08/21/2020. Pathology: Metastatic adenocarcinoma with prominent mucinous features. Tumor cells were positive for CK7 and GATA3 and negative for CK20, TTF-1 and Napsin a. ER staining showed weak positivity in approximately 10 to 20% of cells. MN was negative with 0% staining. HER-2 was positive at 3+ on immunohistochemistry stain. 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 Her most recent EGDwas in 2019. That study was done to evaluate epigastric spasms. It was performed by Dr. Rahman with the GI group in [place]. Pathology on the biopsy specimen report was not available but patient said her symptoms stopped when she changed from omeprazole to ease omeprazole. She did not have dysphagia. No odynophagia. No heartburn per se. She denied nausea. She has IBS mostly manifested as constipation. She has chronic intermittent left upper quadrant pain that she attributes to gas. No signs of GI bleeding. Patient lost a son to suicide on July 2020. Underwent EGD on 09/01/2020. Esophageal mucosal changes secondary to established short segment Posadas's disease was present in the lower third esophagus. The maximal longitudinal extent of these changes was 6 mm in length. Biopsies were obtained with cold forceps for histology. The entire examined stomach and duodenum were normal. Pathology: Esophagus, distal, biopsy Cardio-oxyntic mucosa with no diagnostic abnormality. - Negative for intestinal metaplasia. Ultrasound left breast on 09/02/2020 identified a 1.7 x 0.9 x 0.6 cm lobulated mass in the left breast at 1:00 anterior depth. It was hypoechoic and correlated with the mammography findings. It was adjacent to the surgical scar. She was referred for and underwent biopsy on 09/09/2020. Pathology: A. Left breast, needle core biopsy: - Invasive ductal carcinoma with mucinous features, provisional histologic grade 2 (see comment). Estrogen Receptor (ER) Positive (40%) Stain intensity: Moderate to strong Progesterone Receptor (PgR) Positive (1-5%) Stain intensity: Weak HER2 (ERBB2) IMMUNOHISTOCHEMISTRY ASSAY Interpretation: POSITIVE for HER2 (ERBB2) Expression Score: 3+ Whole body bone scan 09/04/2020: Whole body bone scan and spot images demonstrate moderately increased uptake at T12-L1, L4-5 and left L5 facet, corresponding to moderate degenerative change of the thoracolumbar spine and postsurgical change of L4-5 interbody fusion and pedicle alla and screws fixation of the left L4-5 on the abdomen and pelvic CT. Specifically, no abnormally increased or decreased uptake is identified in the mid thoracic spine to correspond to 1.4 cm T6 sclerotic lesion on recent chest CT. There is increased uptake involving both shoulders, sternoclavicular joints, left upper cervical spine, hips, knees, and ankles in a pattern most compatible with degenerative/arthritic disease. If clinically indicated, correlation with radiographs could be obtained at clinical discretion. No other areas of abnormal focal, regional or segmental osseous uptake are seen to suggest the presence of osseous metastatic lesions. INDETERMINATE 1.4 CM T6 SCLEROTIC LESION WITHOUT ASSOCIATED ABNORMAL TRACER UPTAKE IDENTIFIED. MRI thoracic spine 10/02/2020: IMPRESSION: T6 sclerotic focus. Given the lack of activity on the recent bone scan, this is most likely not an active metastatic lesion and may reflect a bone island. No evidence of metastatic disease to the thoracic vertebral bodies. Numerous hepatic metastatic lesions have been evaluated with CT recently. Previous therapy: 1) Docetaxel, pertuzumab and trastuzumab. 2) Trastuzumab and Pertuzumab. Current therapy: 1) Trastuzumab (Ontruzant). 2) Letrozole. Began 03/2021. Underwent left-sided simple mastectomy on 06/28/2023. 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 - Microcalcifications in invasive carcinoma, DCIS, changes consistent with prior procedure, and au of blood vessels. - Biopsy site changes, biopsy clip (x1), and changes consistent with prior procedure identified. [facility] 07/01/23 Diagnosis Comment Histologic sections of the grossly-identified 16 mm x 16 mm tumor bed demonstrates residual invasive and in-situ carcinoma. Tumor bed dimension #1: 16 mm Tumor bed dimension #2: 16 mm Invasive tumor cellularity: 50% Ductal carcinoma in situ cellularity: 5% SPECIMEN Procedure Total mastectomy Specimen Laterality Left TUMOR Histologic Type Invasive carcinoma of no special type (ductal) Histologic Grade (Lorraine Histologic Score) Glandular (Acinar) / Tubular Differentiation Score 3 Nuclear Pleomorphism Score 3 Mitotic Rate Score 3 Overall Grade Grade 3 (scores of 8 or 9) Tumor Size Greatest dimension of largest invasive focus (Millimeters): 16 mm Tumor Focality Single focus of invasive carcinoma Ductal Carcinoma In Situ (DCIS) Present Size (Extent) of DCIS Estimated size (extent) of DCIS is at least (Millimeters): 4 mm Architectural Patterns Solid Nuclear Grade Grade III (high) Necrosis Present, central (expansive "comedo" necrosis) Lobular Carcinoma In Situ (LCIS) Not identified Lymphatic and / or Vascular Invasion Not identified Dermal Lymphatic and / or Vascular Invasion Not identified Microcalcifications Present in DCIS Present in invasive carcinoma Present in non-neoplastic tissue Treatment Effect in the Breast Probable or definite response to presurgical therapy in the invasivecarcinoma MARGINS Margin Status for Invasive Carcinoma All margins negative for invasive carcinoma Distance from Invasive Carcinoma to Closest Margin Greater than: 2 mm Margin Status for DCIS All margins negative for DCIS Distance from DCIS to Closest Margin Greater than: 2 mm REGIONAL LYMPH NODES Regional Lymph Node Status Not applicable (no regional lymph nodes submitted or found) pTNM CLASSIFICATION (AJCC 8th Edition) Reporting of pT, pN, and (when applicable) pM categories is based on information available to the pathologist at the time the report is issued. As per the AJCC (Chapter 1, 8th Ed.) it is the managingphysician s responsibility to establish the final pathologic stage based upon all pertinent information, including but potentially not limited to this pathology report. Modified Classification y pT Category pT1c pN Category pN not assigned (no nodes submitted or found) Breast Biomarker Testing Performed on Previous Biopsy Estrogen Receptor (ER) Status Positive (greater than 10% of cells demonstrate nuclear positivity) Percentage of Cells with Nuclear Positivity 40 % Breast Biomarker Testing Performed on Previous Biopsy Progesterone Receptor (PgR) Status Positive Percentage of Cells with Nuclear Positivity 1-5 % Breast Biomarker Testing Performed on Previous Biopsy HER2 (by immunohistochemistry) Positive (Score 3+) Percentage of Cells with Uniform Intense Complete Membrane Staining 90 % Presents for ongoing oncologic management. Interim history: Had an EGD and colonoscopy on 05/23/2024. Biopsies from EGD consistent with chronic gastritis and afundic gland polyp. Mild chronic inflammation of the GE junction. No evidence of goblet cell metaplasia. On colonoscopy a tubular adenoma was removed from the sigmoid colon. And there are fragments of a tubular adenoma from the cecum. Right after Lea she had symptoms of a viral URI. No fever. Had a cough. All her symptoms are much better but she still getting a sore throat in the evening and has sensation of fullness in the left ear. No fevers. She has been little more fatigued lately. PMH, medications and allergies personally reviewed by me today. Any changes documented in appropriate section. ROS: Constitutional: Denies episodes of fever and night sweats. Neuro: Denies ROMERO, dizziness and imbalance. Denies symptoms of neuropathy. HEENT: No recent change in voice, vision or hearing. Resp: Denies cough, wheeze and hemoptysis. CVS: See above. : Denies dysuria or gross hematuria. No symptoms of bladder outlet obstruction. Endo: Denies hot flashes. Denies polyuria and polydipsia. Denies heat and cold intolerance. Derm: Denies rash. Denies jaundice and diffuse pruritis. Heme: Denies unusual bleeding and unexplained bruising. Psych: Normal mood. PHYSICAL EXAM: VITALS: Blood pressure 113/71, pulse 88, temperature 36.2 C (97.1 F), temperature source Temporal, weight 68.9 kg (152 lb), SpO2 97%. EYES: Sclerae are anicteric bilaterally. Left TM has normal cone of light. There may be a small amount of fluid in the dependent lower area. RESPIRATORY: Normal passive respirations. CARDIOVASCULAR: Rhythm is regular. present for exam. Left chest wall mastectomy site small amount of fluid. ABDOMEN: No abdominal distention. Extremities: No swelling or edema. SKIN: No jaundice. 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 -VUS in APC gene. Breast biopsy revealed invasive carcinoma with ER/MN and HER-2 status the same as the sample from liver biopsy. ASSESSMENT/PLAN: (C50.919, Z17.0) Malignant neoplasm of breast in female, estrogen receptor positive, unspecified laterality, unspecified site of breast (HCC) (primary encounter diagnosis) (C78.7) Liver metastases (HCC) Assessment: -The patient is a 78-year-old female with a past medical history significant for DCIS of the left breast who was found to have metastatic adenocarcinoma (liver) consistent with breast primary after presenting with epigastric pain. -KPS is 100%. -s/p left simple mastectomy. -No symptoms, exam or echocardiographic findings of cardiomyopathy. -Will discuss every 3 month Zometa. -Continues to tolerate trastuzumab well. Recent echocardiogram in April showed no evidence of left ventricular dysfunction. Plan: -Due for echocardiogram in October. -Continue letrozole. -Continue trastuzumab. -Monitor CBC & CMP every 3 weeks & OV every 6 weeks. -Repeat MRI and PET scan. (D75.839) Thrombocytosis Assessment: -Discussed common etiologies. Potential iron deficiency based on chronic PPI use and recent endoscopy findings. Plan: -Check iron studies. -Trial of oral iron if low. (J06.9) Viral URI Assessment: -Symptoms resolving but still having left eustachian tube dysfunction. Plan: -Advised a trial of Santosh-Synephrine nasal spray for several days. Portions of this documentation were copied and pasted from my previous office visit note dated 04/16/2024 in order to provide a cohesive continuity of the history. The note has been reviewed and edited and updated as necessary. Christiano Centeno DO documented in this encounterFort Hamilton Hospital01-10-2025 NoteTr[facility]01-10-2025 History of Present illness Narrative* Felicia Wooten RN - 06/15/2024 10:31 AM EST Danette Bishop was reviewed for potential clinical trial enrollment on [facility] #[id number] by the Breast group on 06/15/24. Per initial review, patient has disease type metastatic HER2+ BC and appears to be preliminarily eligible and further testing/procedures required to determine final eligibility. Requesting green party notified. No Study tasks were completed as a result of this initial review. Felicia Wooten RN documented in this encounterFort Hamilton Hospital12-18-2024 Evaluation note* Diagnosis Onset Date Resolution Status Admit Date History of Posadas's esophagus acute May 23 12:19pm Viral URI with cough acute Dece mber 2023 10:27am Protracted URI acute June 232024 1:22pm Acute urinary retention acute M arch 2024 4:23pm Back muscle spasm acute August 052024 4:23pm Fusion of lumbar spine acute [facility] 2024 4:23pm Spondylolisthesis, lumbar region acute August 25, 2024 4:23pm Unable to ambulate acute August 25, 2024 4:23pm Acute on chronic low back pain chronic August 25, 2024 4:23pm Chronic back pain chronic August 052024 4:23pm [facility] Work Phone: 1(301) 933-510612-18-2024 [facility] Medical Records Department [address] [place] [id number] History Physical Exam 05/23/24 1313 MR#: [id number] Acct: [id number] Name: DANETTE BISHOP Rep #: [id number] : 1945 79 From: Sam Zamudio MD PCP: Dr. Tami Chang MD Status:[facility] Location: [place] [address] HPI - General General Date of Admission: 05/23/24 Date of Service: 05/23/24 Chief Complaint: screening HPI Narrative DANETTE BISHOP, is a 79 F who presents for EGD and colonoscopy. She does have a history of Posadas's esophagus diagnosed in the past. It has been about 3 and half years since her last EGD. It sounds as though it has been about 5 or 6 years since her last colonoscopy. These were both recently recommended to her. [facility] Medical History Wears glasses Post-menopausal Cancer Depression Anxiety Alcohol use Thyroid disease Anemia Easy bruising Excessive bleeding Back pain TIA (transient ischemic attack) History of hiatal hernia History of ulceration History of IBS Gastric reflux Former smoker Shortness of breath on exertion History of echocardiogram Hypertension History of irregular heartbeat History of rheumatic fever LUQ pain 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 Epigastric abdominal pain Liver metastasis 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 Wears dentures Sleep apnea History of TIA (transient ischemic attack) History of thyroid disease Back pain Neck pain Severe headache Stomach ulcer History of cancer Arthritis History of hypertension Home Medications ???Medication ???Instructions ???Recorded ???Last Taken ???Type fluoxetine 40 mg capsule 40 mg PO QDAY 06/16/17 Unknown History lisinopril 20 mg tablet 20 mg PO DAILY 09/25/20 05/23/24 History levothyroxine 125 mcg tablet 112 mcg PO DAILY 30 days #27 tabs 06/11/21 05/23/24 History hydrocodone-acetaminophen 5-325mg 1 tab PO Q6H PRN pain 07/16/22 Unknown History 5mg-325mg alprazolam 0.5 mg tablet 0.5 mg PO DAILY PRN anxiety 07/21/22 Unknown History letrozole 2.5 mg tablet 2.5 mg PO QDAY 02/16/24 05/23/24 History thmvoggp-ziiljtzps-azlqwmjk 3.5 1 drp ophthalmic (eye) DAILY 02/16/24 Unknown History mg/mL-10,000 unit/mL-0.1% eye drops amlodipine 5 mg tablet 5 mg PO QDAY 04/30/24 Unknown History clopidogrel 75 mg tablet 75 mg PO QDAY 04/30/24 05/17/24 History esomeprazole magnesium 20 mg 20 mg PO QDAY 04/30/24 05/17/24 History capsule,delayed release (Nexium) sennosides 8.6 mg tablet (Senokot) 8.6 mg PO DAILY PRN constipation 04/30/24 Unknown History liothyronine 5 mcg tablet 5 mcg PO DAILY 05/21/24 05/23/24 History zolpidem 10 mg tablet 10 mg PO QHS 05/21/24 Unknown History Allergy/AdvReac Type Severity Reaction Status Date / Time shellfish derived Allergy Severe throat Verified 05/23/24 12:38 swelling adhesive tape AdvReac Rash Verified 05/23/24 12:38 Family History Mother Colon cancer passed from recurrence Thyroid disorder Father Hypertension CVA (cerebral vascular accident) Sister Breast cancer, Onset Age: 87 Aunt Colon cancer paternal Surgical History History of lumpectomy History of back surgery History of thyroid surgery Social History household members: spouse Smoking Status: Former smoker how long ago did patient quit smoking: >50 years ago; off and on for 2 years, socially only alcohol intake: current alcohol intake frequency: 0-2 drinks per day Alcohol type: wine details: socially substance use type: does not use additional social history: denies vaping, denies marijuana, denies edibles, denies aspirin and ibuprofen use Vital Signs Vital Signs Vital Signs: 05/23/24 12:40 05/23/24 12:40 Temperature 98 F Temperature Source Temporal Pulse Rate 82 Respiratory Rate 16 Respiratory Pattern Normal Blood Pressure 127/57 H Blood Pressure Mean 80 Blood Pressure Source Monitor Blood Pressure Position Semi-Fowlers Blood Pressure Location Right Arm Pulse Ox 97 Oxygen Delivery Method Room Air Weight Weight: 149 lb 14.629 oz Body Mass Index (BMI) 28.3 Physical Exam Narrative She is alert and oriented x 3. No acute distress. Assessment Plan Assessment/Plan (1) History of Posadas's esophagus: PLAN: Plan The patient is a 79-year-old female in need of an EGD and colonoscopy for screening purposes. We reviewed the details of the planned procedure including risks benefits and alternatives. She wishes to proceed. This will be starting shortly Charges/Coding Visit Charges Inpatient E M: 72804 I (more content not included)...[facility] 05-09-2024 NoteTr[facility]ull [facility] Hospital12-04-2024 History of Present illness Narrative* Domenic Kelley APRN.GREASE REFINER OPERATOR - 05/09/2024 9:10 AM EST Chief Complaint Patient presents with: Established Patient HPI: Danette Bishop is a 79 year old female who presents here today for evaluation for treatment on Tuesday. Per Dr. Centeno's previous note: H/o hypertension, stroke (x2; not on ASA because of h/o bleeding ulcer) and DCIS. Treated for left sided DCIS with lumpectomy and radiation when living in [place] in [place]. Started on tamoxifen but had negative side effects then sounds like she was tried on an aromatase inhibitor but have musculoskeletal side effects and then stopped treatment. Had been getting routine mammography in [place] until 2013. Since has been getting mammogram at [facility]. Most recent was on 12/28/2019. Scattered benign calcifications were observed. There were no dense spiculated masses or suspicious microcalcifications identified. Fairly stable architectural distortion in the left breast with previous surgery. No skin thickening or retraction. Significant change from previous mammogram on 12/05/2018. She developed abdominal pain in July 2020. Initially had an ultrasound on 07/08/2020 that demonstrated a 2.7 x 3.2 x 2.6 cm hypoechoic solid nodule in the right lobe of liver. MRI Liver 08/08/2020: Liver: Multiple solid masses in the right lobe of the liver. Largest of these is seen within the peripheral right lobe of the liver and measures 2.5 x 2.5 cm. Biliary tract: The common bile duct is normal in course and caliber. No filling defect is identified within the common duct. Gallbladder: Unremarkable Pancreatic duct: 7 mm T2 bright lesion involving the pancreatic tail. No dilatation of the pancreatic duct. Spleen: No lesion is identified. Pancreas: The pancreas enhances normally and is without focal lesions. Adrenal glands: No mass is identified Kidneys: Simple appearing cortical cysts involving both kidneys. No hydronephrosis. Possible lesion involving the T6 vertebral body. Postsurgical change involving the left breast. No adenopathy is identified. Imaged lung bases are clear. No pericardial effusion or pericardial thickening. CT of chest, abdomen pelvis revealed no thoracic lymphadenopathy. There was a nonspecific scleroticdensity in the vertebral body of T6. Scarring was noted in the left breast. No pulmonary nodules. CT of the abdomen pelvis reveals scattered hepatic masses favoring metastatic disease. There is left lateral abdominal wall hernia containing nondilated descending colon. Biopsy one of the right lobe of the liver lesions performed on 08/21/2020. Pathology: Metastatic adenocarcinoma with prominent mucinous features. Tumor cells were positive for CK7 and GATA3 and negative for CK20, TTF-1 and Napsin a. ER staining showed weak positivity in approximately 10 to 20% of cells. MN was negative with 0% staining. HER-2 was positive at 3+ on immunohistochemistry stain. 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 Her most recent EGDwas in 2019. That study was done to evaluate epigastric spasms. It was performed by Dr. Rahman with the GI group in [place]. Pathology on the biopsy specimen report was not available but patient said her symptoms stopped when she changed from omeprazole to ease omeprazole. She did not have dysphagia. No odynophagia. No heartburn per se. She denied nausea. She has IBS mostly manifested as constipation. She has chronic intermittent left upper quadrant pain that she attributes to gas. No signs of GI bleeding. Patient lost a son to suicide on July 2020. Underwent EGD on 09/01/2020. Esophageal mucosal changes secondary to established short segment Posadas's disease was present in the lower third esophagus. The maximal longitudinal extent of these changes was 6 mm in length. Biopsies were obtained with cold forceps for histology. The entire examined stomach and duodenum were normal. Pathology: Esophagus, distal, biopsy Cardio-oxyntic mucosa with no diagnostic abnormality. - Negative for intestinal metaplasia. Ultrasound left breast on 09/02/2020 identified a 1.7 x 0.9 x 0.6 cm lobulated mass in the left breast at 1:00 anterior depth. It was hypoechoic and correlated with the mammography findings. It was adjacent to the surgical scar. She was referred for and underwent biopsy on 09/09/2020. Pathology: A. Left breast, needle core biopsy: - Invasive ductal carcinoma with mucinous features, provisional histologic grade 2 (see comment). Estrogen Receptor (ER) Positive (40%) Stain intensity: Moderate to strong Progesterone Receptor (PgR) Positive (1-5%) Stain intensity: Weak HER2 (ERBB2) IMMUNOHISTOCHEMISTRY ASSAY Interpretation: POSITIVE for HER2 (ERBB2) Expression Score: 3+ Whole body bone scan 09/04/2020: Whole body bone scan and spot images demonstrate moderately increased uptake at T12-L1, L4-5 and left L5 facet, corresponding to moderate degenerative change of the thoracolumbar spine and postsurgical change of L4-5 interbody fusion and pedicle alla and screws fixation of the left L4-5 on the abdomen and pelvic CT. Specifically, no abnormally increased or decreased uptake is identified in the mid thoracic spine to correspond to 1.4 cm T6 sclerotic lesion on recent chest CT. There is increased uptake involving both shoulders, sternoclavicular joints, left upper cervical spine, hips, knees, and ankles in a pattern most compatible with degenerative/arthritic disease. If clinically indicated, correlation with radiographs could be obtained at clinical discretion. No other areas of abnormal focal, regional or segmental osseous uptake are seen to suggest the presence of osseous metastatic lesions. INDETERMINATE 1.4 CM T6 SCLEROTIC LESION WITHOUT ASSOCIATED ABNORMAL TRACER UPTAKE IDENTIFIED. MRI thoracic spine 10/02/2020: IMPRESSION: T6 sclerotic focus. Given the lack of activity on the recent bone scan, this is most likely not an active metastatic lesion and may reflect a bone island. No evidence of metastatic disease to the thoracic vertebral bodies. Numerous hepatic metastatic lesions have been evaluated with CT recently. Previous therapy: 1) Docetaxel, pertuzumab and trastuzumab. 2) Trastuzumab and Pertuzumab. Current therapy: 1) Trastuzumab (Ontruzant). 2) Letrozole. Began 03/2021. Underwent left-sided simple mastectomy on 06/28/2023. Pathology: Left breast, mastectomy: - Residual invasive ductal carcinoma, Lorraine grade III, measuring 16 mm in greatest dimension (please see synoptic report and comment). 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 - Microcalcifications in invasive carcinoma, DCIS, changes consistent with prior procedure, and au of blood vessels. - Biopsy site changes, biopsy clip (x1), and changes consistent with prior procedure identified. [facility] 07/01/23 Diagnosis Comment Histologic sections of the grossly-identified 16 mm x 16 mm tumor bed demonstrates residual invasive and in-situ carcinoma. Tumor bed dimension #1: 16 mm Tumor bed dimension #2: 16 mm Invasive tumor cellularity: 50% Ductal carcinoma in situ cellularity: 5% SPECIMEN Procedure Total mastectomy Specimen Laterality Left TUMOR Histologic Type Invasive carcinoma of no special type (ductal) Histologic Grade (Lorraine Histologic Score) Glandular (Acinar) / Tubular Differentiation Score 3 Nuclear Pleomorphism Score 3 Mitotic Rate Score 3 Overall Grade Grade 3 (scores of 8 or 9) Tumor Size Greatest dimension of largest invasive focus (Millimeters): 16 mm Tumor Focality Single focus of invasive carcinoma Ductal Carcinoma In Situ (DCIS) Present Size (Extent) of DCIS Estimated size (extent) of DCIS is at least (Millimeters): 4 mm Architectural Patterns Solid Nuclear Grade Grade III (high) Necrosis Present, central (expansive "comedo" necrosis) Lobular Carcinoma In Situ (LCIS) Not identified Lymphatic and / or Vascular Invasion Not identified Dermal Lymphatic and / or Vascular Invasion Not identified Microcalcifications Present in DCIS Present in invasive carcinoma Present in non-neoplastic tissue Treatment Effect in the Breast Probable or definite response to presurgical therapy in the invasivecarcinoma MARGINS Margin Status for Invasive Carcinoma All margins negative for invasive carcinoma Distance from Invasive Carcinoma to Closest Margin Greater than: 2 mm Margin Status for DCIS All margins negative for DCIS Distance from DCIS to Closest Margin Greater than: 2 mm REGIONAL LYMPH NODES Regional Lymph Node Status Not applicable (no regional lymph nodes submitted or found) pTNM CLASSIFICATION (AJCC 8th Edition) Reporting of pT, pN, and (when applicable) pM categories is based on information available to the pathologist at the time the report is issued. As per the AJCC (Chapter 1, 8th Ed.) it is the managingphysician s responsibility to establish the final pathologic stage based upon all pertinent information, including but potentially not limited to this pathology report. Modified Classification y pT Category pT1c pN Category pN not assigned (no nodes submitted or found) Breast Biomarker Testing Performed on Previous Biopsy Estrogen Receptor (ER) Status Positive (greater than 10% of cells demonstrate nuclear positivity) Percentage of Cells with Nuclear Positivity 40 % Breast Biomarker Testing Performed on Previous Biopsy Progesterone Receptor (PgR) Status Positive Percentage of Cells with Nuclear Positivity 1-5 % Breast Biomarker Testing Performed on Previous Biopsy HER2 (by immunohistochemistry) Positive (Score 3+) Percentage of Cells with Uniform Intense Complete Membrane Staining 90 % No new concerns today. Appetite:"Too good." Energy level:"Not much of that." Denies fevers. Mouth:denies sores Resp:denies cough or sob Cardiac:denies chest pain/palpitations GI:occ. abd pain/fullness after meals, +reflux-takes nexium daily, denies n/v, occ. constipation :denies dysuria/hematuria Extrem:denies new pain, chronic low back pain Endo:denies hot flashes Neuro:denies symptoms of neuropathy Skin:denies rashes Heme:denies bleeding The ROS is otherwise negative. Past medical history, appointments, medications, allergies reviewed. No changes. EXAM: BP 111/72 Pulse 78 Temp 36.4 C (97.5 F) (Temporal) Wt 70.2 kg (154 lb 12.2 oz) SpO2 98% BMI 28.77 kg/m APPEARANCE Well appearing, alert, in no acute distress, well-hydrated, well nourished. HEART RRR with normal S1 and S2, no murmurs LUNG clear to auscultation BREAST FEMALE L mastectomy scar, L seroma soft/no erythema-stable LYMPH NODES No cervical lymphadenopathy, No supraclavicular lymphadenopathy, and No axillary lymphadenopathy. ABDOMEN bowel sounds normoactive, soft, non-tender, non-distended EXTREMITIES No edema NEURO Awake, alert and oriented x 3, Normal gait, and No involuntary motions. SKIN Skin color, texture, turgor normal, no suspicious rashes or lesions ASSESSMENT/PLAN: 1. Malignant neoplasm of female breast, unspecified estrogen receptor status, unspecified laterality, unspecified site of breast (HCC) - ICD9: 174.9, ICD10: C50.919 (primary diagnosis) 2. HER2-positive carcinoma of breast (HCC) - ICD9: 174.9, ICD10: C50.919, Z17.31 Metastatic ER-positive, HER2 positive breast cancer. - Overall tolerating treatment well. - Tolerating femara well. - Reviewed labs with pt. - Continue femara. - Continue current medications. - MRI and PET scan in about 3 to 4 months. - ECHO in 3 months. - Proceed as scheduled Tuesday for ontruzant. - Follow up as scheduled. - Pt. aware to call office with any questions/concerns. The sensitive examination was discussed with the Patient or Patient's Authorized Vat Washer. Asapplicable, any other physician, advance practice provider, medical student, or other health professional student that will be observing or involved in the sensitive examination for educational or training purposes was discussed with the Patient or Authorized Vat Washer. The Patient or Authorized Vat Washer has agreed to proceed with the sensitive examination. (Sensitive examination includes inspection and/or palpation of the breasts, pelvis, prostate and anorectal regions) The patient indicates understanding of these issues and agrees with the plan. All documentation from previous visit of 04/16/24-Dr. Centeno was copied and pasted, documentation has been reviewed and edited as necessary for today's visit. Domenic Kelley APRN.GREASE REFINER OPERATOR documented in this encounterFort Hamilton Hospital12-03-2024 NoteTr[facility]12-03-2024 History of Present illness Narrative* Sandra Goodman RN - 05/08/2024 7:41 AM EST Patient is here for IVAD port flush/blood draw per Nursing [facility] protocol. IVAD is located in right upper chest. Site cleansed with Chloraprep IVAD accessed with a #20 gauge 3/4" non-coring Gripper needle Flush with 5cc's Normal Saline. Blood Return: Good. 10 cc's blood aspirated and discarded. Blood drawn for CBC and CMP. Flushed with: 20 ml Normal Saline. Non-coring needle removed. Paper tape applied to puncture site. Site negative for redness, edema or tenderness. Patient tolerated procedure well. documented in this encounterFort Hamilton Hospital11-25-2024 Evaluation note* Diagnosis Onset Date Resolution Status Admit Date History of Posadas's esophagus acute April 30 12:45pm History of Posadas's esophagus acute May 23 12:19pm Viral URI with cough acute Dece mber 2023 10:27am Protracted URI acute June 232024 1:22pm Acute urinary retention acute M arch 2024 4:23pm Back muscle spasm acute August 052024 4:23pm Unable to ambulate acute August 25, 2024 4:23pm Chronic back pain chronic August 052024 4:23pm [facility] Work Phone: 1(409) 106-243511-15-2024 NoteHNO ID: [id number] Author: BREANNA FERNÁNDEZ RN Service: ? Author Type: Registered Nurse Type: Progress Notes Filed: 04/20/2024 11:32 Note Text: Assessment unchanged from [facility]18[facility] [facility] History of Present illness Narrative* Breanna Fernández RN - 04/20/2024 10:16 AM EST Assessment unchanged from 04/18/[address] Centeno documented in this encounterFort Hamilton Hospital11-11-2024 History of Present illness Narrative* Christiano Centeno DO - 04/16/2024 8:30 AM EST Oncologic problem(s): 1) Metastatic ER-positive, HER2 positive breast cancer. HPI: The patient is a 78-year-old female with past medical history significant for hypertension, stroke (x2; not on ASA because of h/o bleeding ulcer) and DCIS. Treated for left sided DCIS with lumpectomy and radiation when living in [place] in 2012. Started on tamoxifen but had negative side effects then sounds like she was tried on an aromatase inhibitor but have musculoskeletal side effects and then stopped treatment. Had been getting routine mammography in [place] until 2013. Since has been getting mammogram at [facility]. Most recent was on 12/28/2019. Scattered benign calcifications were observed. There were no dense spiculated masses or suspicious microcalcifications identified. Fairly stable architectural distortion in the left breast with previous surgery. No skin thickening or retraction. Significant change from previous mammogram on 12/05/2018. She developed abdominal pain in July 2020. Initially had an ultrasound on 07/08/2020 that demonstrated a 2.7 x 3.2 x 2.6 cm hypoechoic solid nodule in the right lobe of liver. MRI Liver 08/08/2020: Liver: Multiple solid masses in the right lobe of the liver. Largest of these is seen within the peripheral right lobe of the liver and measures 2.5 x 2.5 cm. Biliary tract: The common bile duct is normal in course and caliber. No filling defect is identified within the common duct. Gallbladder: Unremarkable Pancreatic duct: 7 mm T2 bright lesion involving the pancreatic tail. No dilatation of the pancreatic duct. Spleen: No lesion is identified. Pancreas: The pancreas enhances normally and is without focal lesions. Adrenal glands: No mass is identified Kidneys: Simple appearing cortical cysts involving both kidneys. No hydronephrosis. Possible lesion involving the T6 vertebral body. Postsurgical change involving the left breast. No adenopathy is identified. Imaged lung bases are clear. No pericardial effusion or pericardial thickening. CT of chest, abdomen pelvis revealed no thoracic lymphadenopathy. There was a nonspecific scleroticdensity in the vertebral body of T6. Scarring was noted in the left breast. No pulmonary nodules. CT of the abdomen pelvis reveals scattered hepatic masses favoring metastatic disease. There is left lateral abdominal wall hernia containing nondilated descending colon. Biopsy one of the right lobe of the liver lesions performed on 08/21/2020. Pathology: Metastatic adenocarcinoma with prominent mucinous features. Tumor cells were positive for CK7 and GATA3 and negative for CK20, TTF-1 and Napsin a. ER staining showed weak positivity in approximately 10 to 20% of cells. MN was negative with 0% staining. HER-2 was positive at 3+ on immunohistochemistry stain. 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 Her most recent EGDwas in 2019. That study was done to evaluate epigastric spasms. It was performed by Dr. Rahman with the GI group in [place]. Pathology on the biopsy specimen report was not available but patient said her symptoms stopped when she changed from omeprazole to ease omeprazole. She did not have dysphagia. No odynophagia. No heartburn per se. She denied nausea. She has IBS mostly manifested as constipation. She has chronic intermittent left upper quadrant pain that she attributes to gas. No signs of GI bleeding. Patient lost a son to suicide on July 2020. Underwent EGD on 09/01/2020. Esophageal mucosal changes secondary to established short segment Posadas's disease was present in the lower third esophagus. The maximal longitudinal extent of these changes was 6 mm in length. Biopsies were obtained with cold forceps for histology. The entire examined stomach and duodenum were normal. Pathology: Esophagus, distal, biopsy Cardio-oxyntic mucosa with no diagnostic abnormality. - Negative for intestinal metaplasia. Ultrasound left breast on 09/02/2020 identified a 1.7 x 0.9 x 0.6 cm lobulated mass in the left breast at 1:00 anterior depth. It was hypoechoic and correlated with the mammography findings. It was adjacent to the surgical scar. She was referred for and underwent biopsy on 09/09/2020. Pathology: A. Left breast, needle core biopsy: - Invasive ductal carcinoma with mucinous features, provisional histologic grade 2 (see comment). Estrogen Receptor (ER) Positive (40%) Stain intensity: Moderate to strong Progesterone Receptor (PgR) Positive (1-5%) Stain intensity: Weak HER2 (ERBB2) IMMUNOHISTOCHEMISTRY ASSAY Interpretation: POSITIVE for HER2 (ERBB2) Expression Score: 3+ Whole body bone scan 09/04/2020: Whole body bone scan and spot images demonstrate moderately increased uptake at T12-L1, L4-5 and left L5 facet, corresponding to moderate degenerative change of the thoracolumbar spine and postsurgical change of L4-5 interbody fusion and pedicle alla and screws fixation of the left L4-5 on the abdomen and pelvic CT. Specifically, no abnormally increased or decreased uptake is identified in the mid thoracic spine to correspond to 1.4 cm T6 sclerotic lesion on recent chest CT. There is increased uptake involving both shoulders, sternoclavicular joints, left upper cervical spine, hips, knees, and ankles in a pattern most compatible with degenerative/arthritic disease. If clinically indicated, correlation with radiographs could be obtained at clinical discretion. No other areas of abnormal focal, regional or segmental osseous uptake are seen to suggest the presence of osseous metastatic lesions. INDETERMINATE 1.4 CM T6 SCLEROTIC LESION WITHOUT ASSOCIATED ABNORMAL TRACER UPTAKE IDENTIFIED. MRI thoracic spine 10/02/2020: IMPRESSION: T6 sclerotic focus. Given the lack of activity on the recent bone scan, this is most likely not an active metastatic lesion and may reflect a bone island. No evidence of metastatic disease to the thoracic vertebral bodies. Numerous hepatic metastatic lesions have been evaluated with CT recently. Previous therapy: 1) Docetaxel, pertuzumab and trastuzumab. 2) Trastuzumab and Pertuzumab. Current therapy: 1) Trastuzumab (Ontruzant). 2) Letrozole. Began 03/2021. Underwent left-sided simple mastectomy on 06/28/2023. Pathology: Left breast, mastectomy: - Residual invasive ductal carcinoma, Lorraine grade III, measuring 16 mm in greatest dimension (please see synoptic report and comment). 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 - Microcalcifications in invasive carcinoma, DCIS, changes consistent with prior procedure, and au of blood vessels. - Biopsy site changes, biopsy clip (x1), and changes consistent with prior procedure identified. [facility] 07/01/23 Diagnosis Comment Histologic sections of the grossly-identified 16 mm x 16 mm tumor bed demonstrates residual invasive and in-situ carcinoma. Tumor bed dimension #1: 16 mm Tumor bed dimension #2: 16 mm Invasive tumor cellularity: 50% Ductal carcinoma in situ cellularity: 5% SPECIMEN Procedure Total mastectomy Specimen Laterality Left TUMOR Histologic Type Invasive carcinoma of no special type (ductal) Histologic Grade ([place] Histologic Score) Glandular (Acinar) / Tubular Differentiation Score 3 Nuclear Pleomorphism Score 3 Mitotic Rate Score 3 Overall Grade Grade 3 (scores of 8 or 9) Tumor Size Greatest dimension of largest invasive focus (Millimeters): 16 mm Tumor Focality Single focus of invasive carcinoma Ductal Carcinoma In Situ (DCIS) Present Size (Extent) of DCIS Estimated size (extent) of DCIS is at least (Millimeters): 4 mm Architectural Patterns Solid Nuclear Grade Grade III (high) Necrosis Present, central (expansive "comedo" necrosis) Lobular Carcinoma In Situ (LCIS) Not identified Lymphatic and / or Vascular Invasion Not identified Dermal Lymphatic and / or Vascular Invasion Not identified Microcalcifications Present in DCIS Present in invasive carcinoma Present in non-neoplastic tissue Treatment Effect in the Breast Probable or definite response to presurgical therapy in the invasivecarcinoma MARGINS Margin Status for Invasive Carcinoma All margins negative for invasive carcinoma Distance from Invasive Carcinoma to Closest Margin Greater than: 2 mm Margin Status for DCIS All margins negative for DCIS Distance from DCIS to Closest Margin Greater than: 2 mm REGIONAL LYMPH NODES Regional Lymph Node Status Not applicable (no regional lymph nodes submitted or found) pTNM CLASSIFICATION (AJCC 8th Edition) Reporting of pT, pN, and (when applicable) pM categories is based on information available to the pathologist at the time the report is issued. As per the AJCC (Chapter 1, 8th Ed.) it is the managingphysician s responsibility to establish the final pathologic stage based upon all pertinent information, including but potentially not limited to this pathology report. Modified Classification y pT Category pT1c pN Category pN not assigned (no nodes submitted or found) Breast Biomarker Testing Performed on Previous Biopsy Estrogen Receptor (ER) Status Positive (greater than 10% of cells demonstrate nuclear positivity) Percentage of Cells with Nuclear Positivity 40 % Breast Biomarker Testing Performed on Previous Biopsy Progesterone Receptor (PgR) Status Positive Percentage of Cells with Nuclear Positivity 1-5 % Breast Biomarker Testing Performed on Previous Biopsy HER2 (by immunohistochemistry) Positive (Score 3+) Percentage of Cells with Uniform Intense Complete Membrane Staining 90 % Presents for ongoing oncologic management. Interim history: She still gets the occasional left upper abdominal discomfort subcostal. Had the left mastectomy site seroma injected with doxycycline by Dr. Soto. No symptoms to suggest cardiomyopathy. PMH, medications and allergies personally reviewed by me today. Any changes documented in appropriate section. ROS: Constitutional: Denies episodes of fever and night sweats. Neuro: Denies ROMERO, dizziness and imbalance. Denies symptoms of neuropathy. HEENT: No recent change in voice, vision or hearing. Resp: Denies cough, wheeze and hemoptysis. CVS: See above. : Denies dysuria or gross hematuria. No symptoms of bladder outlet obstruction. Endo: Denies hot flashes. Denies polyuria and polydipsia. Denies heat and cold intolerance. Derm: Denies rash. Denies jaundice and diffuse pruritis. Heme: Denies unusual bleeding and unexplained bruising. Psych: Normal mood. PHYSICAL EXAM: VITALS: Blood pressure 130/76, pulse 81, temperature 37.1 C (98.8 F), temperature source Temporal, weight 71 kg (156 lb 8 oz), SpO2 98%. EYES: Sclerae are anicteric bilaterally. RESPIRATORY: Normal passive respirations. CARDIOVASCULAR: Rhythm is regular. Daughter chaperoned--left chest wall seroma firmer. ABDOMEN: No abdominal distention. Extremities: No swelling or edema. SKIN: No jaundice. MS: Left chest wall seroma. 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 -VUS in APC gene. Breast biopsy revealed invasive carcinoma with ER/MN and HER-2 status the same as the sample from liver biopsy. ASSESSMENT/PLAN: (C50.919, Z17.0) Malignant neoplasm of breast in female, estrogen receptor positive, unspecified laterality, unspecified site of breast (HCC) (primary encounter diagnosis) (C78.7) Liver metastases (HCC) Assessment: -The patient is a 78-year-old female with a past medical history significant for DCIS of the left breast who was found to have metastatic adenocarcinoma (liver) consistent with breast primary after presenting with epigastric pain. -KPS is 100%. -s/p left simple mastectomy. -Has been tolerating trastuzumab well. -No symptoms, exam or echocardiographic findings of cardiomyopathy. -Will discuss every 3 month Zometa. -Reviewed MRI and PET scan images at her request. Stable disease in liver. No other evidence of metastatic disease. -Answered all of her questions she had regarding the wording of the radiology reports and Caris results. -She brought to my attention she had an EGD in 2020. Prior to pathology being finalized, she was advised to have a repeat in 2 years for what endoscopically appeared to be Posadas's esophagus. Plan: -Due for echocardiogram. -She would like to think over repeat EGD. -Declines colonoscopy. She may ask her PCP about Cologuard testing. -Continue letrozole. -Continue trastuzumab. -Monitor CBC & CMP every 3 weeks & OV every 6 weeks. -Repeat MRI and PET scan in about 3 to 4 months. Portions of this documentation were copied and pasted from previous office visit notes in order to provide a cohesive continuity of the history. The note has been reviewed and edited and updated as necessary. I spent a total of 30 minutes on the date of the service which included preparing to see the patient, [id number] patient care, completing clinical documentation, obtaining and/or reviewing separately obtained history, performing a medically appropriate examination, counseling and educating the pat ient/family/caregiver, ordering medications, tests, or procedures, communicating with other HCPs (not separately reported), and communicating results to the patient/family/caregiver. Christiano Centeno DO documented in [facility] History of Present illness Narrative* Domenic Kelley APRN.GREASE REFINER OPERATOR - 03/28/2024 9:31 AM EDT Chief Complaint Patient presents with: Established Patient HPI: Danette Bishop is a 79 year old female who presents here today for evaluation for treatment on Tuesday. Per Dr. Centeno's previous note: H/o hypertension, stroke (x2; not on ASA because of h/o bleeding ulcer) and DCIS. Treated for left sided DCIS with lumpectomy and radiation when living in [place] in 2012. Started on tamoxifen but had negative side effects then sounds like she was tried on an aromatase inhibitor but have musculoskeletal side effects and then stopped treatment. Had been getting routine mammography in [place] until 2013. Since has been getting mammogram at [facility]. Most recent was on 12/28/2019. Scattered benign calcifications were observed. There were no dense spiculated masses or suspicious microcalcifications identified. Fairly stable architectural distortion in the left breast with previous surgery. No skin thickening or retraction. Significant change from previous mammogram on 12/05/2018. She developed abdominal pain in July 2020. Initially had an ultrasound on 07/08/2020 that demonstrated a 2.7 x 3.2 x 2.6 cm hypoechoic solid nodule in the right lobe of liver. MRI Liver 08/08/2020: Liver: Multiple solid masses in the right lobe of the liver. Largest of these is seen within the peripheral right lobe of the liver and measures 2.5 x 2.5 cm. Biliary tract: The common bile duct is normal in course and caliber. No filling defect is identified within the common duct. Gallbladder: Unremarkable Pancreatic duct: 7 mm T2 bright lesion involving the pancreatic tail. No dilatation of the pancreatic duct. Spleen: No lesion is identified. Pancreas: The pancreas enhances normally and is without focal lesions. Adrenal glands: No mass is identified Kidneys: Simple appearing cortical cysts involving both kidneys. No hydronephrosis. Possible lesion involving the T6 vertebral body. Postsurgical change involving the left breast. No adenopathy is identified. Imaged lung bases are clear. No pericardial effusion or pericardial thickening. CT of chest, abdomen pelvis revealed no thoracic lymphadenopathy. There was a nonspecific scleroticdensity in the vertebral body of T6. Scarring was noted in the left breast. No pulmonary nodules. CT of the abdomen pelvis reveals scattered hepatic masses favoring metastatic disease. There is left lateral abdominal wall hernia containing nondilated descending colon. Biopsy one of the right lobe of the liver lesions performed on 08/21/2020. Pathology: Metastatic adenocarcinoma with prominent mucinous features. Tumor cells were positive for CK7 and GATA3 and negative for CK20, TTF-1 and Napsin a. ER staining showed weak positivity in approximately 10 to 20% of cells. MN was negative with 0% staining. HER-2 was positive at 3+ on immunohistochemistry stain. 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 Her most recent EGDwas in 2019. That study was done to evaluate epigastric spasms. It was performed by Dr. Rahman with the GI group in [place]. Pathology on the biopsy specimen report was not available but patient said her symptoms stopped when she changed from omeprazole to ease omeprazole. She did not have dysphagia. No odynophagia. No heartburn per se. She denied nausea. She has IBS mostly manifested as constipation. She has chronic intermittent left upper quadrant pain that she attributes to gas. No signs of GI bleeding. Patient lost a son to suicide on July 2020. Underwent EGD on 09/01/2020. Esophageal mucosal changes secondary to established short segment Posadas's disease was present in the lower third esophagus. The maximal longitudinal extent of these changes was 6 mm in length. Biopsies were obtained with cold forceps for histology. The entire examined stomach and duodenum were normal. Pathology: Esophagus, distal, biopsy Cardio-oxyntic mucosa with no diagnostic abnormality. - Negative for intestinal metaplasia. Ultrasound left breast on 09/02/2020 identified a 1.7 x 0.9 x 0.6 cm lobulated mass in the left breast at 1:00 anterior depth. It was hypoechoic and correlated with the mammography findings. It was adjacent to the surgical scar. She was referred for and underwent biopsy on 09/09/2020. Pathology: A. Left breast, needle core biopsy: - Invasive ductal carcinoma with mucinous features, provisional histologic grade 2 (see comment). Estrogen Receptor (ER) Positive (40%) Stain intensity: Moderate to strong Progesterone Receptor (PgR) Positive (1-5%) Stain intensity: Weak HER2 (ERBB2) IMMUNOHISTOCHEMISTRY ASSAY Interpretation: POSITIVE for HER2 (ERBB2) Expression Score: 3+ Whole body bone scan 09/04/2020: Whole body bone scan and spot images demonstrate moderately increased uptake at T12-L1, L4-5 and left L5 facet, corresponding to moderate degenerative change of the thoracolumbar spine and postsurgical change of L4-5 interbody fusion and pedicle alla and screws fixation of the left L4-5 on the abdomen and pelvic CT. Specifically, no abnormally increased or decreased uptake is identified in the mid thoracic spine to correspond to 1.4 cm T6 sclerotic lesion on recent chest CT. There is increased uptake involving both shoulders, sternoclavicular joints, left upper cervical spine, hips, knees, and ankles in a pattern most compatible with degenerative/arthritic disease. If clinically indicated, correlation with radiographs could be obtained at clinical discretion. No other areas of abnormal focal, regional or segmental osseous uptake are seen to suggest the presence of osseous metastatic lesions. INDETERMINATE 1.4 CM T6 SCLEROTIC LESION WITHOUT ASSOCIATED ABNORMAL TRACER UPTAKE IDENTIFIED. MRI thoracic spine 10/02/2020: IMPRESSION: T6 sclerotic focus. Given the lack of activity on the recent bone scan, this is most likely not an active metastatic lesion and may reflect a bone island. No evidence of metastatic disease to the thoracic vertebral bodies. Numerous hepatic metastatic lesions have been evaluated with CT recently. Previous therapy: 1) Docetaxel, pertuzumab and trastuzumab. 2) Trastuzumab and Pertuzumab. Current therapy: 1) Trastuzumab (Ontruzant). 2) Letrozole. Began 03/2021. Underwent left-sided simple mastectomy on 06/28/2023. Pathology: Left breast, mastectomy: - Residual invasive ductal carcinoma, Lorraine grade III, measuring 16 mm in greatest dimension (please see synoptic report and comment). 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 - Microcalcifications in invasive carcinoma, DCIS, changes consistent with prior procedure, and au of blood vessels. - Biopsy site changes, biopsy clip (x1), and changes consistent with prior procedure identified. [facility] 07/01/23 Diagnosis Comment Histologic sections of the grossly-identified 16 mm x 16 mm tumor bed demonstrates residual invasive and in-situ carcinoma. Tumor bed dimension #1: 16 mm Tumor bed dimension #2: 16 mm Invasive tumor cellularity: 50% Ductal carcinoma in situ cellularity: 5% SPECIMEN Procedure Total mastectomy Specimen Laterality Left TUMOR Histologic Type Invasive carcinoma of no special type (ductal) Histologic Grade ([place] Histologic Score) Glandular (Acinar) / Tubular Differentiation Score 3 Nuclear Pleomorphism Score 3 Mitotic Rate Score 3 Overall Grade Grade 3 (scores of 8 or 9) Tumor Size Greatest dimension of largest invasive focus (Millimeters): 16 mm Tumor Focality Single focus of invasive carcinoma Ductal Carcinoma In Situ (DCIS) Present Size (Extent) of DCIS Estimated size (extent) of DCIS is at least (Millimeters): 4 mm Architectural Patterns Solid Nuclear Grade Grade III (high) Necrosis Present, central (expansive "comedo" necrosis) Lobular Carcinoma In Situ (LCIS) Not identified Lymphatic and / or Vascular Invasion Not identified Dermal Lymphatic and / or Vascular Invasion Not identified Microcalcifications Present in DCIS Present in invasive carcinoma Present in non-neoplastic tissue Treatment Effect in the Breast Probable or definite response to presurgical therapy in the invasivecarcinoma MARGINS Margin Status for Invasive Carcinoma All margins negative for invasive carcinoma Distance from Invasive Carcinoma to Closest Margin Greater than: 2 mm Margin Status for DCIS All margins negative for DCIS Distance from DCIS to Closest Margin Greater than: 2 mm REGIONAL LYMPH NODES Regional Lymph Node Status Not applicable (no regional lymph nodes submitted or found) pTNM CLASSIFICATION (AJCC 8th Edition) Reporting of pT, pN, and (when applicable) pM categories is based on information available to the pathologist at the time the report is issued. As per the AJCC (Chapter 1, 8th Ed.) it is the managingphysician s responsibility to establish the final pathologic stage based upon all pertinent information, including but potentially not limited to this pathology report. Modified Classification y pT Category pT1c pN Category pN not assigned (no nodes submitted or found) Breast Biomarker Testing Performed on Previous Biopsy Estrogen Receptor (ER) Status Positive (greater than 10% of cells demonstrate nuclear positivity) Percentage of Cells with Nuclear Positivity 40 % Breast Biomarker Testing Performed on Previous Biopsy Progesterone Receptor (PgR) Status Positive Percentage of Cells with Nuclear Positivity 1-5 % Breast Biomarker Testing Performed on Previous Biopsy HER2 (by immunohistochemistry) Positive (Score 3+) Percentage of Cells with Uniform Intense Complete Membrane Staining 90 % Pt. here today with family member. Appetite:"Too good." Wt. stable. Energy level:"Fair." Denies fevers/recent illness. Mouth:denies sores Resp:denies cough or sob, occ. salazar with long distance walking Cardiac:denies chest pain/palpitations GI:denies abd pain, n/v, moving bowels regularly "if I eat my apple." :denies dysuria/hematuria Extrem:denies pain Endo:denies hot flashes Neuro:occ. tingling to bottom of feet "the same, comes and goes" Skin:denies rashes/lesions Heme:denies bleeding The ROS is otherwise negative. Past medical history, appointments, medications, allergies reviewed. No changes. EXAM: BP 134/64 Pulse 83 Temp 36.4 C (97.6 F) (Temporal) Wt 70.6 kg (155 lb 10.3 oz) SpO2 97% BMI 28.93 kg/m APPEARANCE Well appearing, alert, in no acute distress, well-hydrated, well nourished. HEART RRR with normal S1 and S2, no murmurs LUNG clear to auscultation BREAST FEMALE L mastectomy scar, no nodule, lateral chest wall seroma-improved LYMPH NODES No cervical lymphadenopathy, No supraclavicular lymphadenopathy, and No axillary lymphadenopathy. ABDOMEN bowel sounds normoactive, soft, non-tender EXTREMITIES No edema NEURO Awake, alert and oriented x 3, Normal gait, and No involuntary motions. SKIN Skin color, texture, turgor normal, no suspicious rashes or lesions LABS: Latest Ref Rng 02/15/2024 03/07/2024 03/27/2024 WBC 3.70 - 11.00 k/uL 6.79 5.87 5.43 RBC 3.90 - 5.20 m/uL 4.11 4.18 4.09 Hemoglobin 11.5 - 15.5 g/dL 12.1 12.4 12.0 Hematocrit 36.0 - 46.0 % 36.0 36.4 35.8 (L) MCV 80.0 - 100.0 fL 87.6 87.1 87.5 MCH 26.0 - 34.0 pg 29.4 29.7 29.3 MCHC 30.5 - 36.0 g/dL 33.6 34.1 33.5 RDW-CV 11.5 - 15.0 % 15.2 (H) 15.7 (H) 15.9 (H) Platelet Count 150 - 400 k/uL 392 377 349 MPV 9.0 - 12.7 fL 9.0 9.4 9.3 Neut% % 57.8 58.0 60.9 Abs Neut (ANC) 1.45 - 7.50 k/uL 3.92 3.41 3.31 Lymph% % 29.7 30.2 28.4 Abs Lymph 1.00 - 4.00 k/uL 2.02 1.77 1.54 [place]% % 6.0 6.5 6.4 Abs [place] <0.87 k/uL 0.41 0.38 0.35 Eosin% % 4.7 3.7 2.6 Abs Eosin <0.46 k/uL 0.32 0.22 0.14 Baso% % 1.5 1.4 1.5 Abs Baso <0.11 k/uL 0.10 0.08 0.08 Immature Gran % % 0.3 0.2 0.2 IMMATURE GRANS (ABS) <0.10 k/uL <0.03 <0.03 <0.03 NRBC /100 WBC 0.0 0.0 0.0 Absolute nRBC <0.01 k/uL <0.01 <0.01 <0.01 DTYPE Auto Auto Auto Latest Ref Rng 02/15/2024 03/07/2024 03/27/2024 Protein, Total 6.3 - 8.0 g/dL 6.8 7.0 6.8 Albumin 3.9 - 4.9 g/dL 4.2 4.3 4.2 Calcium 8.5 - 10.2 mg/dL 9.3 9.4 9.1 Bilirubin, Total 0.2 - 1.3 mg/dL 0.5 0.7 0.6 Alkaline Phosphatase 34 - 123 U/L 87 81 87 AST 13 - 35 U/L 15 13 17 ALT 7 - 38 U/L 13 12 17 Glucose 74 - 99 mg/dL 113 (H) 92 143 (H) BUN 7 - 21 mg/dL 16 15 12 Creatinine 0.58 - 0.96 mg/dL 0.67 0.63 0.67 Sodium 136 - 144 mmol/L 131 (L) 133 (L) 135 (L) Potassium 3.7 - 5.1 mmol/L 4.2 4.0 3.9 Chloride 98 - 107 mmol/L 98 98 98 CO2 22 - 30 mmol/L 22 23 24 Anion Gap 8 - 15 mmol/L 11 12 13 eGFR >=60 mL/min/1.73m 90 91 89 RADIOLOGY: MRI abd/pelvis 03/21/24: IMPRESSION: There are two stable T1 hypointense, not significantly enhancing, lesions within the right hepatic lobe. Neither was avid on PET scan of 08/22/2023 . No developing mass or adenopathy in the visualized abdomen PET scan 03/26/24: Pending ASSESSMENT/PLAN: 1. 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, right (HCC) - ICD9: 174.9, 197.7, ICD10: C50.911, C78.7 (primary diagnosis) 2. 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) - ICD9: 197.7, ICD10: C78.7 Metastatic ER-positive, HER2 positive breast cancer. - No concerning findings on exam. - Chronic L chest wall/axillary seroma. - Tolerating letrozole/ontruzant well overall. - Reviewed labs with pt. - ECHO due end of May 2024. - PET/MRI liver due end of March 2024. - Needs EGD-was due August 2022-last EGD done by Dr. Berry 08/2020. Pt. requesting Dr. Canales. - Continue letrozole. - Proceed as scheduled on Tuesday for ontruzant-pending PET scan. - Follow up as scheduled-pending PET scan. - Pt. aware to call office with any questions/concerns. The sensitive examination was discussed with the Patient or Patient's Authorized Vat Washer. Asapplicable, any other physician, advance practice provider, medical student, or other health professional student that will be observing or involved in the sensitive examination for educational or training purposes was discussed with the Patient or Authorized Vat Washer. The Patient or Authorized Vat Washer has agreed to proceed with the sensitive examination. (Sensitive examination includes inspection and/or palpation of the breasts, pelvis, prostate and anorectal regions) The patient indicates understanding of these issues and agrees with the plan. All documentation from previous visit of 02/16/24-Dr. Centeno/myself was copied and pasted, documentation has been reviewed and edited as necessary for today's visit. Domenic Kelley APRN.BEA documented in this encounterFort [facility]10-21-2024 NoteHNO ID: [id number] Author: AMBER COTTER RT(Pop) Service: Nuclear Medicine Author Type: Technologist Type: Progress Notes Filed: 03/26/2024 11:29 Note Text: RADIOLOGY SERVICE PROGRESS NOTE SERVICE DATE: 03/26/2024 SERVICE TIME: 10:52 AM PATIENT IDENTITY VERIFICATION COMPLETED USING TWO (2) STANDARD IDENTIFIERS: Name and Date of confirmed by patient verbally FALL SCREENING: Has the patient had 2 falls in the last year or 1 fall with injury or currently using an Ambulatory Assistive Device (Walker, Cane, Wheelchair, Crutches, etc.)? No PATIENT GENDER DATA: .female ALLERGIES: NA MEDICATIONS REVIEWED: Not applicable PATIENT RELEVANT IMPLANT DATA REVIEWED: Not Applicable PATIENT PRESENTS WITH AN IMPLANTABLE OR ATTACHED GARNETTER: No CREATININE: Creatinine Date Value Ref Range Status 03/07/2024 0.63 0.58 - 0.96 mg/dL Final 02/15/2024 0.67 0.58 - 0.96 mg/dL Final 01/26/2024 0.78 0.58 - 0.96 mg/dL Final Estimated Glomerular Filtration Rate Date Value Ref Range Status 03/07/2024 91 >=60 mL/min/1.73m? Final Comment: Estimated Glomerular Filtration Rate (eGFR) is calculated using the 2020 CKD-EPI creatinine equation. This equation utilizes serum creatinine, sex, and age as parameters. The creatinine assay has traceable calibration to isotope dilution-mass spectrometry. Refer to KDIGO guidelines for clinical interpretation. In patients with unstable renal function, e.g. those with acute kidney injury, the eGFR may not accurately reflect actual GFR. eGFR- Date Value Ref Range Status 07/27/2021 >60 Final P.O.C.T. RESULTS: N/A March 26, [address] PERFORMED: No IV SITE: Ambulatory: NM only - direct IV injection in the Right antecubital site POST EXAM PIV STATUS: Discontinued PROCEDURE TYPE: NM INJECT: PET/CT BODY SCAN. 10.3 mCi F18 FDG. No other medications given.. ADMINISTRATION TIME: 1044 PATIENT DISCHARGED TO: Ambulatory patient, left OR department area. A Diagnostic radioactive procedure has taken place, with no further precautions necessary other than routine body substance precautions. More information regarding radiation safety can be found using this link: [email or web address] SIGNATURE: RT Sheila(R) PATIENT NAME: Danette Bishop DATE: March 26, 2024 TIME: 10:52 AM [id number] History of Present illness Narrative* Kaykay Smiley RT(R) - 03/21/2024 8:40 AM EDT Radiology Service Progress Note DATE OF SERVICE: March 21, 2024 TIME: 9:34 AM PATIENT IDENTITY VERIFICATION COMPLETED USING TWO (2) STANDARD IDENTIFIERS: Name and Date of confirmed by patient verbally. FALL SCREENING: Has the patient had 2 falls in the last year or 1 fall with injury or currently using an Ambulatory Assistive Device (Walker, Cane, Wheelchair, Crutches, etc.)? No PATIENT GENDER DATA: Female. status: : No status: NO. PATIENT RELEVANT IMPLANT DATA REVIEWED: Yes PATIENT PRESENTS WITH AN IMPLANTABLE OR ATTACHED GARNETTER: No ALLERGIES: Reviewed and unchanged CONTRAST ALLERGY: NO. EXAM: MRI - CONTRAST TYPE: GROUP II PERIPHERAL IV DATA: Ambulatory: A power injectable Mediport was accessed in the Right chest with a 18 inch 1/4 gauge needle. Blood Return, Flushed easily with normal saline, Good Blood Return Post Injection, Flushed with 20 cc saline followed by Heparin 500 units/5 cc, and No Complications RADIOLOGY DEPARTMENT: MR; Exam(s) Completed: Body: Liver (routine) SIGNATURE: RT Mariella(R) PATIENT NAME: Danette Bishop DATE: March 21, 2024 TIME: 9:34 AM documented in this encounterFort [facility] Hospital10-15-2024 Telephone encounter Note * Telephone Encounter - Freda Tan - 03/20/2024 9:16 AM EDT Spoke with patient and scheduled. Freda Tan [facility]10-15-[facility]24 Miscellaneous Notes* Telephone Encounter - Freda Tan - 03/20/2024 9:16 AM EDT Spoke with patient and scheduled. Freda Tan * Telephone Encounter - Amy Grace LPN - 03/19/2024 7:55 AM EDT PSS- patient need lab/port appointment on 03/21 for port access prior to MRI. Please contact patient. Amy Grace LPN documented in this encounterFort [facility] Hospital10-14-2024 Telephone encounter Note * Telephone Encounter - Amy Grace LPN - 03/19/2024 7:55 AM EDT PSS- patient need lab/port appointment on 03/21 for port access prior to MRI. Please contact patient. Amy Grace LPN [facility]10-10-[facility]24 Telephone encounter Note* Telephone Encounter - Amy Grace LPN - 03/15/2024 3:30 PM EDT PSS- please contact patient and assist in moving up PET and MRI if availability. Amy Grace LPN [facility]10-10-[facility]24 Miscellaneous Notes* Telephone Encounter - Amy Grace LPN - 03/15/2024 3:30 PM EDT PSS- please contact patient and assist in moving up PET and MRI if availability. Amy Grace LPN documented in this encounterFort [facility] Hospital10-02-2024 History of Present illness Narrative* Sandra Goodman, RN - 03/07/2024 9:38 AM EDT Patient is here for IVAD port flush/blood draw per Nursing Epes protocol. IVAD is located in right upper chest. Site cleansed with Chloraprep IVAD accessed with a #20 gauge 3/4" non-coring Gripper needle Flush with 5cc's Normal Saline. Blood Return: Good. 10 cc's blood aspirated and discarded. Blood drawn for CBC and CMP. Flushed with: 20 ml Normal Saline. Non-coring needle removed. Paper tape applied to puncture site. Site negative for redness, edema or tenderness. Patient tolerated procedure well. documented in this encounterFort [facility] Hospital09-25-2024 Telephone encounter Note * Telephone Encounter - Lexii Godoy - 02/29/2024 5:07 PM EDT I called and spoke to patient and she stated to please just schedule the testing and she will see it on MyChart. PET scan is scheduled 03/26/24 & MRI is scheduled 04/03/24 Lexii Grijalva [facility]09-25-[facility]24 Miscellaneous Notes* Telephone Encounter - Lexii Godoy - 02/29/2024 5:07 PM EDT I called and spoke to patient and she stated to please just schedule the testing and she will see it on MyChart. PET scan is scheduled 03/26/24 & MRI is scheduled 04/03/24 Lexii Grijalva * Telephone Encounter - Amy Grace LPN - 02/29/2024 7:32 AM EDT PSS- please contact patient to schedule PET and MRI. Amy Grace LPN * Telephone Encounter - Christiano Centeno DO - 02/28/2024 5:36 PM EDT Thank you. I filed them. Christiano Centeno DO * Telephone Encounter - Amy Grace LPN - 02/28/2024 4:44 PM EDT Per Domenic's OV note 02/16/2024- PET/MRI liver due end of March 2024. I pended orders. Please file if appropriate. Amy Grace LPN documented in this encounterFort [facility] Hospital09-25-2024 Telephone encounter Note * Telephone Encounter - Amy Grace LPN - 02/29/2024 7:32 AM EDT PSS- please contact patient to schedule PET and MRI. Amy Grace LPN [facility] Telephone encounter Note* Telephone Encounter - Christiano Centeno DO - 02/28/2024 5:36 PM EDT Thank you. I filed them. Christiano Centeno DO [facility]09-[facility] Telephone encounter Note* Telephone Encounter - Amy Grace LPN - 02/28/2024 4:44 PM EDT Per Domenic's OV note 02/16/2024- PET/MRI liver due end of March 2024. I pended orders. Please file if appropriate. Amy Grace LPN [facility]09-17-[facility] Nurse Note* Freda Matson RN - 02/21/2024 11:11 AM EDT Pt came in to have PORT assessed (see phone note). No bruising or redness noted. No current bleeding. Pt denies any pain or discomfort. Accessed PORT. Positive for blood return. Flushed with 20ml NS and de-accessed. 2x2 gauze and papertape applied. Observed insertion site for 5 mins. No bleeding noted. Pt also requested BP check. Stated it was elevated this morning. BP 166/80 P71. Pt states it has been going up and down significantly. Advised pt take BP morning and evening and document readings for1 week. If still elevated, contact PCP as she is who prescribes BP meds. Pt stated PCP is aware of elevated BP but has not changed any medications at this time. Pt aware to follow up with her after observing for 1 week. [facility] Note* Freda Matson RN - 02/21/2024 11:11 AM EDT Pt came in to have PORT assessed (see phone note). No bruising or redness noted. No current bleeding. Pt denies any pain or discomfort. Accessed PORT. Positive for blood return. Flushed with 20ml NS and de-accessed. 2x2 gauze and papertape applied. Observed insertion site for 5 mins. No bleeding noted. Pt also requested BP check. Stated it was elevated this morning. BP 166/80 P71. Pt states it has been going up and down significantly. Advised pt take BP morning and evening and document readings for1 week. If still elevated, contact PCP as she is who prescribes BP meds. Pt stated PCP is aware of elevated BP but has not changed any medications at this time. Pt aware to follow up with her after observing for 1 week. documented in this encounterFort [facility] Hospital09-17-2024 Telephone encounter Note * Telephone Encounter - Fatimah Tom - 02/21/2024 9:09 AM EDT Scheduled with patient. Patient informed about imaging [facility] Work Phone: 1(743) 186-792209-17-2024 Miscellaneous Notes* Telephone Encounter - Fatimah Tom - 02/21/2024 9:09 AM EDT Scheduled with patient. Patient informed about imaging * Telephone Encounter - Silvina Freda - 02/21/2024 9:04 AM EDT Left message for patient to return call. When she calls, please schedule patient on the triage schedule for a port assessment. Additionally, advise the patient that imaging isn't due until the end ofOctober (PET/MRI). Freda Tan * Telephone Encounter - Christiano Centeno DO - 02/20/2024 8:53 PM EDT See my response. Have her come in for port assessment and let her know she has several visits before we schedule imaging..See Domenic's most recent note. Christiano Centeno DO documented in this encounterFort [facility] Hospital09-17-2024 Telephone encounter Note * Telephone Encounter - Freda Tan - 02/21/2024 9:04 AM EDT Left message for patient to return call. When she calls, please schedule patient on the triage schedule for a port assessment. Additionally, advise the patient that imaging isn't due until the end ofOctober (PET/MRI). Freda Tan [facility]09-[facility] Telephone encounter Note* Telephone Encounter - Christiano Centeno DO - 02/20/2024 8:53 PM EDT See my response. Have her come in for port assessment and let her know she has several visits before we schedule imaging..See Domenic's most recent note. Christiano Centeno DO [facility]09-[facility] Nurse Note* Diya Burger RN - 02/20/2024 5:39 PM EDT REVIEW OF SYSTEMS: General: The patient NOTES fatigue, denies weight loss, denies weight gain, denies feeling hot, anddenies feelings of cold. Eyes: The patient denies glaucoma, denies eye injury/surgery, wears glasses or contacts. Ear/Nose/Throat: The patient NOTES allergies, denies hayfever, denies ear infections, and denies bloody noses. Cardiovascular: The patient denies chest pain, denies heart disease, NOTES high blood pressure,denies cardiac stent, denies prior heart attack, denies irregular heart beat, denies high cholesterol, denies poor circulation, denies heart failure, other cardiac issues, denies claudication, denies coldfeet, denies peripheral arterial stent. Respiratory: The patient denies tuberculosis, denies pneumonia, denies frequent cough, denies pulmonary embolism, denies shortness of breath, and denies coughing up blood. Gastrointestinal: The patient denies difficulty swallowing, denies acid reflux, denies ulcers, denies vomiting, denies jaundice/hepatitis, denies gallbladder problems, denies black or tarry stools, denies hemorrhoids, denies bleeding from rectum, denies diverticulitis, NOTES constipation, denies diarrhea, denies loss of stool control, denies hernias, NOTES short-segment Posadas's esophagus. Kidney/Bladder: The patient denies kidney stones, NOTES urine infections, and denies bloody urine. Skin: The patient NOTES a history of skin cancer, denies bleeding/changing moles, and denies a history of skin rash. Neurologic: The patient denies a history of epilepsy/convulsions, denies headaches, denies head/spinal injuries, and NOTES stroke/TIA. Psychiatric: The patient denies psychiatric medications, NOTES depression, and denies voices, denies substance abuse. Endocrine: The patient NOTES thyroid disorders, denies diabetes, and denies hormonal problems. Hematologic: The patient NOTES a history of bruising, denies bleeding, and denies anemia, denies blood clots. Infections: The patient denies a history of measles and mumps, NOTES rheumatic fever, and denies sexually transmitted diseases. Musculoskeletal: The patient NOTES back pain/injury, denies back problems, denies sciatica, denies knee/foot trouble, denies arthritis, or denies gout. When was patient's last Mammogram screening? 03/16/2023 Last Colonoscopy: 2020 Diya Burger RN [facility] Nurse Note* Diya Burger RN - 02/20/2024 5:39 PM EDT REVIEW OF SYSTEMS: General: The patient NOTES fatigue, denies weight loss, denies weight gain, denies feeling hot, anddenies feelings of cold. Eyes: The patient denies glaucoma, denies eye injury/surgery, wears glasses or contacts. Ear/Nose/Throat: The patient NOTES allergies, denies hayfever, denies ear infections, and denies bloody noses. Cardiovascular: The patient denies chest pain, denies heart disease, NOTES high blood pressure,denies cardiac stent, denies prior heart attack, denies irregular heart beat, denies high cholesterol, denies poor circulation, denies heart failure, other cardiac issues, denies claudication, denies coldfeet, denies peripheral arterial stent. Respiratory: The patient denies tuberculosis, denies pneumonia, denies frequent cough, denies pulmonary embolism, denies shortness of breath, and denies coughing up blood. Gastrointestinal: The patient denies difficulty swallowing, denies acid reflux, denies ulcers, denies vomiting, denies jaundice/hepatitis, denies gallbladder problems, denies black or tarry stools, denies hemorrhoids, denies bleeding from rectum, denies diverticulitis, NOTES constipation, denies diarrhea, denies loss of stool control, denies hernias, NOTES short-segment Posadas's esophagus. Kidney/Bladder: The patient denies kidney stones, NOTES urine infections, and denies bloody urine. Skin: The patient NOTES a history of skin cancer, denies bleeding/changing moles, and denies a history of skin rash. Neurologic: The patient denies a history of epilepsy/convulsions, denies headaches, denies head/spinal injuries, and NOTES stroke/TIA. Psychiatric: The patient denies psychiatric medications, NOTES depression, and denies voices, denies substance abuse. Endocrine: The patient NOTES thyroid disorders, denies diabetes, and denies hormonal problems. Hematologic: The patient NOTES a history of bruising, denies bleeding, and denies anemia, denies blood clots. Infections: The patient denies a history of measles and mumps, NOTES rheumatic fever, and denies sexually transmitted diseases. Musculoskeletal: The patient NOTES back pain/injury, denies back problems, denies sciatica, denies knee/foot trouble, denies arthritis, or denies gout. When was patient's last Mammogram screening? 03/16/2023 Last Colonoscopy: 2020 Diya Burger RN documented in this encounterFort [facility] Hospital09-16-2024 History of Present illness Narrative* Deborah Oconnor APRN.GREASE REFINER OPERATOR - 02/20/2024 2:30 PM EDT HISTORY AND PHYSICAL Danette Bishop : 1945 REFERRING PHYSICIAN: No referring provider defined for this encounter. CHIEF COMPLAINT: Patient presents with: Consult: EGD consultation, h/o short-segment Posadas's. HPI: Danette is a 78 year old female referred for endoscopy. Danette notes of possible history of short segment posadas's- due for surveillance EGD. Deepika is here today with questions about barretts dxand the need for EGD. She refers she was dx with barretts in 2008 in [place], had multiple EGDs since and all have been negative for intestinal metaplasia. Last EGD was 2020 which was also negative and recommended 2 year f/u. Deepika refers in 2020 she was having esophageal spasms which is why she underwent EGD, she switched to nexium and hasn't had symptoms since. No reflux symptoms -takes Nexium 40mg daily. Danette denies heartburn. Danette denies dysphagia. Danette denies a history of ulcers/ peptic ulcer disease. Deepika is currently under going tx for stage 4 HER2 breast cancer with mets to the liver. She follows with Dr. Centeno. Currently taking letrozole/ontruzant and tolerating well. Last ECHO 11/04/2023- EF of 60% Danette has undergone prior endoscopy. Last EGD 08/[address] Berry. 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 Biopsied. - Normal stomach. - Normal examined duodenum. Pathology: CONVERTED FINAL DIAGNOSIS Esophagus, distal, biopsy Cardio-oxyntic mucosa with no diagnostic abnormality. - Negative for intestinal metaplasia. Current Outpatient Medications Medication Sig multivit-min/ferrous fumarate (MULTI VITAMIN ORAL) Take 1 tablet by mouth once daily. letrozole (FEMARA) 2.5 mg tablet Take 1 tablet by mouth once daily. clopidogrel (PLAVIX) 75 mg tablet Take 1 tablet by mouth once daily. Patient should start on December 20, 2023. HYDROcodone-acetaminophen (NORCO) 5-325 mg per tablet Take 1 tablet by mouth every 6 hours as needed for pain for up to 3 days. Ascorbic Acid (VITAMIN C) 1,000 mg tablet Take 1,000 mg by mouth once daily. FLUoxetine (PROZAC) 40 mg capsule Take 1 capsule by mouth once daily. multivitamin tablet Take 1 tablet by mouth once daily. levothyroxine (SYNTHROID) 112 mcg tablet Take 112 mcg by mouth once daily. liothyronine (CYTOMEL) 5 mcg tablet Take 5 mcg by mouth once daily. lisinopril (ZESTRIL, PRINIVIL) 20 mg tablet Take 20 mg by mouth once daily. esomeprazole (NEXIUM) 40 mg capsule Take 40 mg by mouth DAILY (6 AM). ACETAMINOPHEN (TYLENOL ORAL) Take by mouth. zolpidem (AMBIEN) 10 mg tab Take 10 mg by mouth daily at bedtime. ALPRAZolam (XANAX) 0.5 mg tablet Take 0.5 mg by mouth at bedtime as needed. Current Facility-Administered Medications Medication Dose Route Frequency perflutren lipid microspheres 1.3 mL in NaCl (PF) 0.9% 10 mL injection (DEFINITY) INTRAVENOUS DIRECTED PRN sodium chloride 0.9 % (flush) 10 mL (BD POSIFLUSH) 10 mL INTRAVENOUS DIRECTED PRN ALLERGIES: Adhesive Tape-Silicones and Shellfish Derived PAST MEDICAL HISTORY Diagnosis Date Breast cancer (HCC) 2012 left Breast cancer (HCC) 04/2023 local recurrence on left GI bleed 2008 Hypertension Liver nodule TIA (transient ischemic attack) 2012 PAST SURGICAL HISTORY Procedure Laterality Date COLONOSCOPY every 5 yrs due to f/h colon cqan all normal per pt EGD GERD EGD 09/01/2020 Repeat in 2 years INSJ TUNNELED CTR VAD W/SUBQ PORT AGE 5 YR/> 09/29/2020 PAST SURGICAL HISTORY OF thyroid removal PAST SURGICAL HISTORY OF left breast 2 episodes of DCIS PAST SURGICAL HISTORY OF back surgeries times 2 FAMILY HISTORY Problem Relation Age of Onset Colon Cancer Mother mets to stomach Stroke Father at age 62 Breast Cancer Sister 85 Heart disease Paternal Grandmother CAD Social History Tobacco Use Smoking status: Former Current packs/day: 0.00 Types: Cigarettes Start date: 09/17/1963 Quit date: 09/16/1965 Years since quittin.4 Smokeless tobacco: Never Tobacco comments: Pt smoked 2-3 cigarettes daily x 2 years. Vaping Use Vaping status: Never Used Substance Use Topics Alcohol use: Yes Comment: moderate Drug use: No REVIEW OF SYMPTOMS: The review of systems data was entered by the nurse and reviewed by ia Nursing Notes: Diya Burger RN 02/20/2024 5:42 PM Signed REVIEW OF SYSTEMS: General: The patient NOTES fatigue, denies weight loss, denies weight gain, denies feeling hot, anddenies feelings of cold. Eyes: The patient denies glaucoma, denies eye injury/surgery, wears glasses or contacts. Ear/Nose/Throat: The patient NOTES allergies, denies hayfever, denies ear infections, and denies bloody noses. Cardiovascular: The patient denies chest pain, denies heart disease, NOTES high blood pressure,denies cardiac stent, denies prior heart attack, denies irregular heart beat, denies high cholesterol, denies poor circulation, denies heart failure, other cardiac issues, denies claudication, denies coldfeet, denies peripheral arterial stent. Respiratory: The patient denies tuberculosis, denies pneumonia, denies frequent cough, denies pulmonary embolism, denies shortness of breath, and denies coughing up blood. Gastrointestinal: The patient denies difficulty swallowing, denies acid reflux, denies ulcers, denies vomiting, denies jaundice/hepatitis, denies gallbladder problems, denies black or tarry stools, denies hemorrhoids, denies bleeding from rectum, denies diverticulitis, NOTES constipation, denies diarrhea, denies loss of stool control, denies hernias, NOTES short-segment Posadas's esophagus. Kidney/Bladder: The patient denies kidney stones, NOTES urine infections, and denies bloody urine. Skin: The patient NOTES a history of skin cancer, denies bleeding/changing moles, and denies a history of skin rash. Neurologic: The patient denies a history of epilepsy/convulsions, denies headaches, denies head/spinal injuries, and NOTES stroke/TIA. Psychiatric: The patient denies psychiatric medications, NOTES depression, and denies voices, denies substance abuse. Endocrine: The patient NOTES thyroid disorders, denies diabetes, and denies hormonal problems. Hematologic: The patient NOTES a history of bruising, denies bleeding, and denies anemia, denies blood clots. Infections: The patient denies a history of measles and mumps, NOTES rheumatic fever, and denies sexually transmitted diseases. Musculoskeletal: The patient NOTES back pain/injury, denies back problems, denies sciatica, denies knee/foot trouble, denies arthritis, or denies gout. When was patient's last Mammogram screening? 03/16/2023 Last Colonoscopy: 2020 Diya uBrger RN PHYSICAL EXAMINATION: General: The patient is 78 year old, female well nourished, well hydrated in no acute distress. Thepatient is oriented to time, place, and person. VITALS: Blood pressure 122/75, pulse 94, temperature 36.3 C (97.4 F), height 156.2 cm (5' 1.5"), weight 70.5 kg (155 lb 6.4 oz), SpO2 100%. Body mass index is 28.89 kg/m . HEENT: Normal cephalic, ataumatic, pupils are equally round, sclera are anicteric, mucous membranesare moist, oropharynx is clear. Neck has no masses, asymmetry or lymphadenopathy. Respiratory: Clear to auscultation and percussion. Normal respiratory excursion and pattern. Cardiac: Examination is regular rate and rhythm. Normal S1/S2 Abdominal exam: Soft, nontender, with no palpable masses. No hepatosplenomegaly. No palpable hernias. Extremities: no clubbing, cyanosis or edema. No adenopathy. LABORATORY VALUES: As Noted RADIOLOGIC STUDIES: As Noted Assessment IMPRESSION: hx of posadas's esophagus I discussed with Deepika & her the findings and recommendations from the last endoscopy. Wediscussed posadas's esophagus in detail and the reason for surveillance EGD. At this time Deepika does not wish to move forward with EGD and has a lot going on with her breast cancer tx & current issues with breast seroma. Deepika agreed to reconsidered EGD if symptoms worsen. Diagnoses: (C50.919) Stage IV breast cancer in female (HCC) (primary encounter diagnosis) (K22.70) Posadas's esophagus without dysplasia Portions of this documentation were copied and pasted from previous office visit notes in order to provide a cohesive continuity of the history. The note has been reviewed and edited and updated as necessary. Deborah Oconnor APRN.BEA documented [facility] History of Present illness Narrative* Domenic Kelley APRN.CNP - 02/16/2024 10:06 AM EDT Chief Complaint Patient presents with: Established Patient HPI: Danette Bishop is a 78 year old female who presents here today for evaluation for treatment tomorrow. Per Dr. Centeno's previous note: H/o hypertension, stroke (x2; not on ASA because of h/o bleeding ulcer) and DCIS. Treated for left sided DCIS with lumpectomy and radiation when living in [place] in 2012. Started on tamoxifen but had negative side effects then sounds like she was tried on an aromatase inhibitor but have musculoskeletal side effects and then stopped treatment. Had been getting routine mammography in [place] until 2013. Since has been getting mammogram at [facility]. Most recent was on 12/28/2019. Scattered benign calcifications were observed. There were no dense spiculated masses or suspicious microcalcifications identified. Fairly stable architectural distortion in the left breast with previous surgery. No skin thickening or retraction. Significant change from previous mammogram on 12/05/2018. She developed abdominal pain in July 2020. Initially had an ultrasound on 07/08/2020 that demonstrated a 2.7 x 3.2 x 2.6 cm hypoechoic solid nodule in the right lobe of liver. MRI Liver 08/08/2020: Liver: Multiple solid masses in the right lobe of the liver. Largest of these is seen within the peripheral right lobe of the liver and measures 2.5 x 2.5 cm. Biliary tract: The common bile duct is normal in course and caliber. No filling defect is identified within the common duct. Gallbladder: Unremarkable Pancreatic duct: 7 mm T2 bright lesion involving the pancreatic tail. No dilatation of the pancreatic duct. Spleen: No lesion is identified. Pancreas: The pancreas enhances normally and is without focal lesions. Adrenal glands: No mass is identified Kidneys: Simple appearing cortical cysts involving both kidneys. No hydronephrosis. Possible lesion involving the T6 vertebral body. Postsurgical change involving the left breast. No adenopathy is identified. Imaged lung bases are clear. No pericardial effusion or pericardial thickening. CT of chest, abdomen pelvis revealed no thoracic lymphadenopathy. There was a nonspecific scleroticdensity in the vertebral body of T6. Scarring was noted in the left breast. No pulmonary nodules. CT of the abdomen pelvis reveals scattered hepatic masses favoring metastatic disease. There is left lateral abdominal wall hernia containing nondilated descending colon. Biopsy one of the right lobe of the liver lesions performed on 08/21/2020. Pathology: Metastatic adenocarcinoma with prominent mucinous features. Tumor cells were positive for CK7 and GATA3 and negative for CK20, TTF-1 and Napsin a. ER staining showed weak positivity in approximately 10 to 20% of cells. MN was negative with 0% staining. HER-2 was positive at 3+ on immunohistochemistry stain. She has a history of Posadas's esophagus which was initially diagnosed in 2009. Her most recent EGDwas in 2019. That study was done to evaluate epigastric spasms. It was performed by Dr. Rahman with the GI group in [place]. Pathology on the biopsy specimen report was not available but patient said her symptoms stopped when she changed from omeprazole to ease omeprazole. She did not have dysphagia. No odynophagia. No heartburn per se. She denied nausea. She has IBS mostly manifested as constipation. She has chronic intermittent left upper quadrant pain that she attributes to gas. No signs of GI bleeding. Patient lost a son to suicide on July 2020. Underwent EGD on 09/01/2020. Esophageal mucosal changes secondary to established short segment Posadas's disease was present in the lower third esophagus. The maximal longitudinal extent of these changes was 6 mm in length. Biopsies were obtained with cold forceps for histology. The entire examined stomach and duodenum were normal. Pathology: Esophagus, distal, biopsy Cardio-oxyntic mucosa with no diagnostic abnormality. - Negative for intestinal metaplasia. Ultrasound left breast on 09/02/2020 identified a 1.7 x 0.9 x 0.6 cm lobulated mass in the left breast at 1:00 anterior depth. It was hypoechoic and correlated with the mammography findings. It was adjacent to the surgical scar. She was referred for and underwent biopsy on 09/09/2020. Pathology: A. Left breast, needle core biopsy: - Invasive ductal carcinoma with mucinous features, provisional histologic grade 2 (see comment). Estrogen Receptor (ER) Positive (40%) Stain intensity: Moderate to strong Progesterone Receptor (PgR) Positive (1-5%) Stain intensity: Weak HER2 (ERBB2) IMMUNOHISTOCHEMISTRY ASSAY Interpretation: POSITIVE for HER2 (ERBB2) Expression Score: 3+ Whole body bone scan 09/04/2020: Whole body bone scan and spot images demonstrate moderately increased uptake at T12-L1, L4-5 and left L5 facet, corresponding to moderate degenerative change of the thoracolumbar spine and postsurgical change of L4-5 interbody fusion and pedicle alla and screws fixation of the left L4-5 on the abdomen and pelvic CT. Specifically, no abnormally increased or decreased uptake is identified in the mid thoracic spine to correspond to 1.4 cm T6 sclerotic lesion on recent chest CT. There is increased uptake involving both shoulders, sternoclavicular joints, left upper cervical spine, hips, knees, and ankles in a pattern most compatible with degenerative/arthritic disease. If clinically indicated, correlation with radiographs could be obtained at clinical discretion. No other areas of abnormal focal, regional or segmental osseous uptake are seen to suggest the presence of osseous metastatic lesions. INDETERMINATE 1.4 CM T6 SCLEROTIC LESION WITHOUT ASSOCIATED ABNORMAL TRACER UPTAKE IDENTIFIED. MRI thoracic spine 10/02/2020: IMPRESSION: T6 sclerotic focus. Given the lack of activity on the recent bone scan, this is most likely not an active metastatic lesion and may reflect a bone island. No evidence of metastatic disease to the thoracic vertebral bodies. Numerous hepatic metastatic lesions have been evaluated with CT recently. Previous therapy: 1) Docetaxel, pertuzumab and trastuzumab. 2) Trastuzumab and Pertuzumab. Current therapy: 1) Trastuzumab (Ontruzant). 2) Letrozole. Began 03/2021. Underwent left-sided simple mastectomy on 06/28/2023. Pathology: Left breast, mastectomy: - Residual invasive ductal carcinoma, Lorraine grade III, measuring 16 mm in greatest dimension (please see synoptic report and comment). 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 - Microcalcifications in invasive carcinoma, DCIS, changes consistent with prior procedure, and au of blood vessels. - Biopsy site changes, biopsy clip (x1), and changes consistent with prior procedure identified. [facility] 07/01/23 Diagnosis Comment Histologic sections of the grossly-identified 16 mm x 16 mm tumor bed demonstrates residual invasive and in-situ carcinoma. Tumor bed dimension #1: 16 mm Tumor bed dimension #2: 16 mm Invasive tumor cellularity: 50% Ductal carcinoma in situ cellularity: 5% SPECIMEN Procedure Total mastectomy Specimen Laterality Left TUMOR Histologic Type Invasive carcinoma of no special type (ductal) Histologic Grade (Lorraine Histologic Score) Glandular (Acinar) / Tubular Differentiation Score 3 Nuclear Pleomorphism Score 3 Mitotic Rate Score 3 Overall Grade Grade 3 (scores of 8 or 9) Tumor Size Greatest dimension of largest invasive focus (Millimeters): 16 mm Tumor Focality Single focus of invasive carcinoma Ductal Carcinoma In Situ (DCIS) Present Size (Extent) of DCIS Estimated size (extent) of DCIS is at least (Millimeters): 4 mm Architectural Patterns Solid Nuclear Grade Grade III (high) Necrosis Present, central (expansive "comedo" necrosis) Lobular Carcinoma In Situ (LCIS) Not identified Lymphatic and / or Vascular Invasion Not identified Dermal Lymphatic and / or Vascular Invasion Not identified Microcalcifications Present in DCIS Present in invasive carcinoma Present in non-neoplastic tissue Treatment Effect in the Breast Probable or definite response to presurgical therapy in the invasivecarcinoma MARGINS Margin Status for Invasive Carcinoma All margins negative for invasive carcinoma Distance from Invasive Carcinoma to Closest Margin Greater than: 2 mm Margin Status for DCIS All margins negative for DCIS Distance from DCIS to Closest Margin Greater than: 2 mm REGIONAL LYMPH NODES Regional Lymph Node Status Not applicable (no regional lymph nodes submitted or found) pTNM CLASSIFICATION (AJCC 8th Edition) Reporting of pT, pN, and (when applicable) pM categories is based on information available to the pathologist at the time the report is issued. As per the AJCC (Chapter 1, 8th Ed.) it is the managingphysician s responsibility to establish the final pathologic stage based upon all pertinent information, including but potentially not limited to this pathology report. Modified Classification y pT Category pT1c pN Category pN not assigned (no nodes submitted or found) Breast Biomarker Testing Performed on Previous Biopsy Estrogen Receptor (ER) Status Positive (greater than 10% of cells demonstrate nuclear positivity) Percentage of Cells with Nuclear Positivity 40 % Breast Biomarker Testing Performed on Previous Biopsy Progesterone Receptor (PgR) Status Positive Percentage of Cells with Nuclear Positivity 1-5 % Breast Biomarker Testing Performed on Previous Biopsy HER2 (by immunohistochemistry) Positive (Score 3+) Percentage of Cells with Uniform Intense Complete Membrane Staining 90 % Pt. seeing plastics this afternoon at [facility] for follow up L chest wall/axillary seroma. Pt. here today with family member. Appetite:"Too good." Energy level:"Ok." Denies fevers recent illness. Mouth:denies sores Resp:denies cough or sob, occ. salazar with long distance walking Cardiac:denies chest pain/palpitations GI:denies abd pain, n/v, moving bowels regularly-taking miralax daily :denies dysuria/hematuria-recent UTI-treated by UC-symptoms resolved Extrem:denies pain Endo:denies hot flashes Neuro:occ. tingling to bottom of feet Skin:denies rashes/lesions Heme:denies bleeding The ROS is otherwise negative. Past medical history, appointments, medications, allergies reviewed. No changes. EXAM: BP 146/101 Pulse 81 Temp 36.4 C (97.5 F) (Temporal) Wt 70 kg (154 lb 5.2 oz) SpO2 98% BMI29.16 kg/m APPEARANCE Well appearing, alert, in no acute distress, well-hydrated, well nourished. HEART RRR with normal S1 and S2, no murmurs LUNG clear to auscultation BREAST FEMALE L mastectomy scar, no nodule, lateral L chest wall seroma into L axilla LYMPH NODES No cervical lymphadenopathy, No supraclavicular lymphadenopathy, and No axillary lymphadenopathy. ABDOMEN bowel sounds normoactive, soft, non-tender EXTREMITIES No edema NEURO Awake, alert and oriented x 3, Normal gait, and No involuntary motions. SKIN Skin color, texture, turgor normal, no suspicious rashes or lesions LABS: Latest Ref Rng 01/26/2024 02/15/2024 WBC 3.70 - 11.00 k/uL 5.92 6.79 RBC 3.90 - 5.20 m/uL 4.11 4.11 Hemoglobin 11.5 - 15.5 g/dL 12.2 12.1 Hematocrit 36.0 - 46.0 % 36.4 36.0 MCV 80.0 - 100.0 fL 88.6 87.6 MCH 26.0 - 34.0 pg 29.7 29.4 MCHC 30.5 - 36.0 g/dL 33.5 33.6 RDW-CV 11.5 - 15.0 % 14.7 15.2 (H) Platelet Count 150 - 400 k/uL 386 392 MPV 9.0 - 12.7 fL 9.1 9.0 Neut% % 60.8 57.8 Abs Neut (ANC) 1.45 - 7.50 k/uL 3.60 3.92 Lymph% % 28.7 29.7 Abs Lymph 1.00 - 4.00 k/uL 1.70 2.02 [place]% % 6.6 6.0 Abs [place] <0.87 k/uL 0.39 0.41 Eosin% % 2.2 4.7 Abs Eosin <0.46 k/uL 0.13 0.32 Baso% % 1.5 1.5 Abs Baso <0.11 k/uL 0.09 0.10 Immature Gran % % 0.2 0.3 IMMATURE GRANS (ABS) <0.10 k/uL <0.03 <0.03 NRBC /100 WBC 0.0 0.0 Absolute nRBC <0.01 k/uL <0.01 <0.01 DTYPE Auto Auto Latest Ref [facility] [place] 01/26/2024 02/15/2024 Protein, Total 6.3 - 8.0 g/dL 6.9 6.8 Albumin 3.9 - 4.9 g/dL 4.3 4.2 Calcium 8.5 - 10.2 mg/dL 9.5 9.3 Bilirubin, Total 0.2 - 1.3 mg/dL 0.3 0.5 Alkaline Phosphatase 34 - 123 U/L 91 87 AST 13 - 35 U/L 16 15 ALT 7 - 38 U/L 13 13 Glucose 74 - 99 mg/dL 110 (H) 113 (H) BUN 7 - 21 mg/dL 15 16 Creatinine 0.58 - 0.96 mg/dL 0.78 0.67 Sodium 136 - 144 mmol/L 130 (L) 131 (L) Potassium 3.7 - 5.1 mmol/L 4.5 4.2 Chloride 98 - 107 mmol/L 97 (L) 98 CO2 22 - 30 mmol/L 22 22 Anion Gap 8 - 15 mmol/L 11 11 eGFR >=60 mL/min/1.73m 78 90 ASSESSMENT/PLAN: 1. 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, right (HCC) - ICD9: 174.9, 197.7, ICD10: C50.911, C78.7 (primary diagnosis) 2. 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) - ICD9: 197.7, ICD10: C78.7 3. HER2-positive carcinoma of breast (HCC) - ICD9: 174.9, ICD10: C50.919 Metastatic ER-positive, HER2 positive breast cancer. - No concerning findings on exam. - Chronic L chest wall/axillary seroma. - Tolerating letrozole/ontruzant well overall. - Reviewed labs with pt. - ECHO due end of May 2024. - PET/MRI liver due end of March 2024. - Needs EGD-was due August 2022-last EGD done by Dr. Berry 08/2020. Pt. requesting Dr. Canales. - Continue letrozole. - Proceed as scheduled tomorrow for ontruzant. - Follow up as scheduled. - Pt. aware to call office with any questions/concerns. Discussed case with Dr. Centeno who agrees with treatment plan. The sensitive examination was discussed with the Patient or Patient's Authorized Vat Washer. Asapplicable, any other physician, advance practice provider, medical student, or other health professional student that will be observing or involved in the sensitive examination for educational or training purposes was discussed with the Patient or Authorized Vat Washer. The Patient or Authorized Vat Washer has agreed to proceed with the sensitive examination. (Sensitive examination includes inspection and/or palpation of the breasts, pelvis, prostate and anorectal regions) The patient indicates understanding of these issues and agrees with the plan. All documentation from previous visit of 01/04/24-Dr. Centeno was copied and pasted, documentation hasbeen reviewed and edited as necessary for today's visit. Domenic Kelley APRN.GREASE REFINER OPERATOR documented in this [facility]09-11-[facility] History of Present illness Narrative* Sandra Goodman RN - 02/15/2024 7:46 AM EDT Patient is here for IVAD port flush/blood draw per [facility] protocol. IVAD is located in right upper chest. Site cleansed with Chloraprep IVAD accessed with a #20 gauge 3/4" non-coring Gripper needle Flush with 5cc's Normal Saline. Blood Return: Good. 10 cc's blood aspirated and discarded. Blood drawn for CBC and CMP. Flushed with: 20 ml Normal Saline. Non-coring needle removed. Paper tape applied to puncture site. Site negative for redness, edema or tenderness. Patient tolerated procedure well. [facility] History of Present illness Narrative* Sandra Goodman RN - 01/26/2024 7:10 AM EDT Patient is here for IVAD port flush/blood draw per [facility] protocol. IVAD is located in right upper chest. Site cleansed with Chloraprep IVAD accessed with a #20 gauge 3/4" non-coring Gripper needle Flush with 5cc's Normal Saline. Blood Return: Good. 10 cc's blood aspirated and discarded. Blood drawn for CBC and CMP. Flushed with: 20 ml Normal Saline. Non-coring needle removed. Paper tape applied to puncture site. Site negative for redness, edema or tenderness. Patient tolerated procedure well. documented in this [facility]08-19-[facility] Nurse Note* Kelly Aguayo LPN - 01/23/2024 2:45 PM EDT Seroma check Last mammogram on: 03/16/2023 bilateral Results: see report Is the patient active on MyChart Yes Electronically Signed By: Kelly Aguayo LPN In Department: [facility] REVIEW OF PATIENT HISTORY: OB History T2 L1 SAB0 IAB0 Ectopic0 Multiple0 Live Births0 Comment: .Menarche: 12; Age at 1st : 25; Post menopausal FAMILY HISTORY Problem Relation Age of Onset Colon Cancer Mother mets to stomach Stroke Father at age 62 Breast Cancer Sister 85 Heart disease Paternal Grandmother CAD PAST MEDICAL HISTORY 2013: Breast cancer (HCC) Comment: left 04/2023: Breast cancer (HCC) Comment: local recurrence on left 2009: GI bleed No date: Hypertension No date: Liver nodule 2013: TIA (transient ischemic attack) PAST SURGICAL HISTORY No date: COLONOSCOPY Comment: every 5 yrs due to f/h colon cqan all normal per pt No date: EGD Comment: GERD 09/01/2020: EGD Comment: Repeat in 2 years 09/29/2020: INSJ TUNNELED CTR VAD W/SUBQ PORT AGE 5 YR/> No date: PAST SURGICAL HISTORY OF Comment: thyroid removal No date: PAST SURGICAL HISTORY OF Comment: left breast 2 episodes of DCIS No date: PAST SURGICAL HISTORY OF Comment: back surgeries times 2 Social History Tobacco Use Smoking status: Former Current packs/day: 0.00 Types: Cigarettes Start date: 09/17/1963 Quit date: 09/16/1965 Years since quittin.3 Smokeless tobacco: Never Tobacco comments: Pt smoked 2-3 cigarettes daily x 2 years. Vaping Use Vaping status: Never Used Substance Use Topics Alcohol use: Yes Comment: moderate Drug use: No [facility] Note* Kelly Aguayo LPN - 01/23/2024 2:45 PM EDT Seroma check Last mammogram on: 03/16/2023 bilateral Results: see report Is the patient active on MyChart Yes Electronically Signed By: Kelly Aguayo LPN In Department: [facility] REVIEW OF PATIENT HISTORY: OB History T2 L1 SAB0 IAB0 Ectopic0 Multiple0 Live Births0 Comment: .Menarche: 12; Age at 1st : 25; Post menopausal FAMILY HISTORY Problem Relation Age of Onset Colon Cancer Mother mets to stomach Stroke Father at age 62 Breast Cancer Sister 85 Heart disease Paternal Grandmother CAD PAST MEDICAL HISTORY 2013: Breast cancer (HCC) Comment: left 04/2023: Breast cancer (HCC) Comment: local recurrence on left 2009: GI bleed No date: Hypertension No date: Liver nodule 2013: TIA (transient ischemic attack) PAST SURGICAL HISTORY No date: COLONOSCOPY Comment: every 5 yrs due to f/h colon cqan all normal per pt No date: EGD Comment: GERD 09/01/2020: EGD Comment: Repeat in 2 years 09/29/2020: INSJ TUNNELED CTR VAD W/SUBQ PORT AGE 5 YR/> No date: PAST SURGICAL HISTORY OF Comment: thyroid removal No date: PAST SURGICAL HISTORY OF Comment: left breast 2 episodes of DCIS No date: PAST SURGICAL HISTORY OF Comment: back surgeries times 2 Social History Tobacco Use Smoking status: Former Current packs/day: 0.00 Types: Cigarettes Start date: 09/17/1963 Quit date: 09/16/1965 Years since quittin.3 Smokeless tobacco: Never Tobacco comments: Pt smoked 2-3 cigarettes daily x 2 years. Vaping Use Vaping status: Never Used Substance Use Topics Alcohol use: Yes Comment: moderate Drug use: No [facility] History of Present illness Narrative* Freda Matos DO - 01/23/2024 2:30 PM EDT REASON FOR TODAY'S VISIT: Patient presents with: Established Patient: Seroma check HISTORY of PRESENT ILLNESS: Danette Bishop is a 78 year old female who is s/p a LEFT mastectomy chronic seroma drainage andrevision on 12/06/23. 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 Surgical pathology results were reviewed at that time. The drain was removed on 01/06/2024. She returns today for wound/ seroma check. She reports "swelling" in the Left operative area which began several days ago. The Patient denies any fever, chills or redness in the incisional area. She states that otherwise she is doing well. EXAMINATION: GEN alert and orientated, well nourished, calm Regional Lymph Nodes There is no concerning supraclavicular, infraclavicular or cervical lymphadenopathy. BREASTS: The patient was examined in the upright and supine position. LEFT breast surgically absent with incision well approximated, C/D/I. 70 cc serosanguineous fluid aspirated in syringe without difficulty. Patient tolerated well. Soft, no dominant masses, no NAC, nodischarge, no skin changes No lymphedema IMPRESSION: Danette Bishop is a 78 year old female who is s/p a LEFT mastectomy chronic seroma drainage andrevision on 12/06/23. 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 LEFT chest wall aspirated without complication today PLAN: ADRIÁN wrap applied Discussed seroma may re-occur unfortunately She will continue using the ADRIÁN wrap as directed in hopes of increasing the skin adherence to the muscle, thereby decreasing cavity space/seroma formation for 72 hrs, then no need to re-wrap. She has our names and numbers to stay in touch if she has any questions, concerns or problems in the interim. Freda Matos DO Breast Surgeon documented in this encounter[facility]08-[facility] History of Present illness Narrative* Callie Sullivan PA-C - 01/06/2024 2:00 PM EDT This is a 78 year old female s/p left mastectomy chronic seroma drainage and revision on 12/06/2023. She was last seen at her post operative appointment on 12/23/2023. Pathology was reviewed and she wasto return when drainage was below 30 cc for 48 hrs. In the interim, patient contacted her PCP reporting redness in the surgical site over the weekend and was placed on Bactrim DS on 01/02/2024. She reports the redness has greatly decreased and drainagehas been 45 cc in the last 48 hrs. Patient is here today for a wound check and for drain removal.. Exam: LEFT breast surgically absent Incision line is clean, dry and intact with very mild pink color noted laterally. No discharge, no warmth or edema. MATTI drain patent with serosanguinous fluid noted in bulb, removed today without problems. Patient tolerated procedure well. Impression: Danette Bishop is a 78 year old female who is s/p a LEFT mastectomy chronic seroma drainage andrevision on 12/06/23. 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 Matos examined the patient. Patient instructed to complete the course of Antibiotic as prescribed. She was advised to use the ADRIÁN wrap as directed in hopes of increasing the skin adherence to the muscle, thereby decreasing cavity space/seroma formation for one week, then no need to re-wrap. Encourage to be aware of over extending her arm in order to prevent stress on the incision site. Patient instructed on the signs and symptoms of infection including: redness, fever, draining, edema, pain. Patient instructed on the signs and symptoms of seroma including: edema and discomfort. She will call with any questions or concerns and follow up with Ms Allie CNP, (Medical Oncology) as scheduled next month. Callie Sullivan PA-C documented in this encounterFort Hamilton Hospital08-02-2024 NoteHNO ID: [id number] Author: CALLIE SULLIVAN PA-C Service: ? Author Type: Physician Submarine Element Coordinator Type: Progress Notes Filed: 01/06/2024 09:36 Note Text: This is a 78 year old female s/p left mastectomy chronic seroma drainage and revision on 12/06/2023. She was last seen at her post operative appointment on 12/23/2023. Pathology was reviewed and she was to return when drainage was below 30 cc for 48 hrs. In the interim, patient contacted her PCP reporting redness in the surgical site over the weekend and was placed on Bactrim DS on 01/02/2024. She reports the redness has greatly decreased and drainage has been 45 cc in the last 48 hrs. Patient is here today for a wound check and for drain removal.. Exam: LEFT breast surgically absent Incision line is clean, dry and intact with very mild pink color noted laterally. No discharge, no warmth or edema. MATTI drain patent with serosanguinous fluid noted in bulb, removed today without problems. Patient tolerated procedure well. Impression: Danette Bishop is a 78 year old female who is s/p a LEFT mastectomy chronic seroma drainage and revision on 12/06/23. 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 Matos examined the patient. Patient instructed to complete the course of Antibiotic as prescribed. She was advised to use the ADRIÁN wrap as directed in hopes of increasing the skin adherence to the muscle, thereby decreasing cavity space/seroma formation for one week, then no need to re-wrap. Encourage to be aware of over extending her arm in order to prevent stress on the incision site. Patient instructed on the signs and symptoms of infection including: redness, fever, draining, edema, pain. Patient instructed on the signs and symptoms of seroma including: edema and discomfort. She will call with any questions or concerns and follow up with Ms Allie CNP, (Medical Oncology) as scheduled next month. [facility]08-02-[facility] Nurse Note* Kelly Aguayo LPN - 01/06/2024 8:46 AM EDT Follow up to drain and infection : Is the patient active on MyChart No: Yes Electronically Signed By: Kelly Aguayo LPN In Department: GENERAL SURGERY REVIEW OF PATIENT HISTORY: OB History T2 L1 SAB0 IAB0 Ectopic0 Multiple0 Live Births0 Comment: .Menarche: 12; Age at 1st : 25; Post menopausal FAMILY HISTORY Problem Relation Age of Onset Colon Cancer Mother mets to stomach Stroke Father at age 62 Breast Cancer Sister 85 Heart disease Paternal Grandmother CAD PAST MEDICAL HISTORY 2013: Breast cancer (HCC) Comment: left 04/2023: Breast cancer (HCC) Comment: local recurrence on left 2009: GI bleed No date: Hypertension No date: Liver nodule 2013: TIA (transient ischemic attack) PAST SURGICAL HISTORY No date: COLONOSCOPY Comment: every 5 yrs due to f/h colon cqan all normal per pt No date: EGD Comment: GERD 09/01/2020: EGD Comment: Repeat in 2 years 09/29/2020: INSJ TUNNELED CTR VAD W/SUBQ PORT AGE 5 YR/> No date: PAST SURGICAL HISTORY OF Comment: thyroid removal No date: PAST SURGICAL HISTORY OF Comment: left breast 2 episodes of DCIS No date: PAST SURGICAL HISTORY OF Comment: back surgeries times 2 Social History Tobacco Use Smoking status: Former Years: 2 Types: Cigarettes Quit date: 09/16/1965 Years since quittin.3 Smokeless tobacco: Never Tobacco comments: Pt smoked 2-3 cigarettes daily x 2 years. Vaping Use Vaping Use: Never used Substance Use Topics Alcohol use: Yes Comment: moderate Drug use: No [facility]08-02-[facility] Nurse Note* Kelly Aguayo LPN - 01/06/2024 8:46 AM EDT Follow up to drain and infection : Is the patient active on MyChart No: Yes Electronically Signed By: Kelly Aguayo LPN In Department: GENERAL SURGERY REVIEW OF PATIENT HISTORY: OB History T2 L1 SAB0 IAB0 Ectopic0 Multiple0 Live Births0 Comment: .Menarche: 12; Age at 1st : 25; Post menopausal FAMILY HISTORY Problem Relation Age of Onset Colon Cancer Mother mets to stomach Stroke Father at age 62 Breast Cancer Sister 85 Heart disease Paternal Grandmother CAD PAST MEDICAL HISTORY 2013: Breast cancer (HCC) Comment: left 04/2023: Breast cancer (HCC) Comment: local recurrence on left 2009: GI bleed No date: Hypertension No date: Liver nodule 2012: TIA (transient ischemic attack) PAST SURGICAL HISTORY No date: COLONOSCOPY Comment: every 5 yrs due to f/h colon cqan all normal per pt No date: EGD Comment: GERD 09/01/2020: EGD Comment: Repeat in 2 years 09/29/2020: INSJ TUNNELED CTR VAD W/SUBQ PORT AGE 5 YR/> No date: PAST SURGICAL HISTORY OF Comment: thyroid removal No date: PAST SURGICAL HISTORY OF Comment: left breast 2 episodes of DCIS No date: PAST SURGICAL HISTORY OF Comment: back surgeries times 2 Social History Tobacco Use Smoking status: Former Years: 2 Types: Cigarettes Quit date: 09/16/1965 Years since quittin.3 Smokeless tobacco: Never Tobacco comments: Pt smoked 2-3 cigarettes daily x 2 years. Vaping Use Vaping Use: Never used Substance Use Topics Alcohol use: Yes Comment: moderate Drug use: No documented in this encounterFort Hamilton Hospital07-31-2024 History of Present illness Narrative* Christiano Centeno DO - 01/04/2024 11:16 AM EDT Oncologic problem(s): 1) Metastatic ER-positive, HER2 positive breast cancer. HPI: The patient is a 78-year-old female with past medical history significant for hypertension, stroke (x2; not on ASA because of h/o bleeding ulcer) and DCIS. Treated for left sided DCIS with lumpectomy and radiation when living in [place] in 2012. Started on tamoxifen but had negative side effects then sounds like she was tried on an aromatase inhibitor but have musculoskeletal side effects and then stopped treatment. Had been getting routine mammography in [place] until 2013. Since has been getting mammogram at [facility]. Most recent was on 12/28/2019. Scattered benign calcifications were observed. There were no dense spiculated masses or suspicious microcalcifications identified. Fairly stable architectural distortion in the left breast with previous surgery. No skin thickening or retraction. Significant change from previous mammogram on 12/05/2018. She developed abdominal pain in July 2020. Initially had an ultrasound on 07/08/2020 that demonstrated a 2.7 x 3.2 x 2.6 cm hypoechoic solid nodule in the right lobe of liver. MRI Liver 08/08/2020: Liver: Multiple solid masses in the right lobe of the liver. Largest of these is seen within the peripheral right lobe of the liver and measures 2.5 x 2.5 cm. Biliary tract: The common bile duct is normal in course and caliber. No filling defect is identified within the common duct. Gallbladder: Unremarkable Pancreatic duct: 7 mm T2 bright lesion involving the pancreatic tail. No dilatation of the pancreatic duct. Spleen: No lesion is identified. Pancreas: The pancreas enhances normally and is without focal lesions. Adrenal glands: No mass is identified Kidneys: Simple appearing cortical cysts involving both kidneys. No hydronephrosis. Possible lesion involving the T6 vertebral body. Postsurgical change involving the left breast. No adenopathy is identified. Imaged lung bases are clear. No pericardial effusion or pericardial thickening. CT of chest, abdomen pelvis revealed no thoracic lymphadenopathy. There was a nonspecific scleroticdensity in the vertebral body of T6. Scarring was noted in the left breast. No pulmonary nodules. CT of the abdomen pelvis reveals scattered hepatic masses favoring metastatic disease. There is left lateral abdominal wall hernia containing nondilated descending colon. Biopsy one of the right lobe of the liver lesions performed on 08/21/2020. Pathology: Metastatic adenocarcinoma with prominent mucinous features. Tumor cells were positive for CK7 and GATA3 and negative for CK20, TTF-1 and Napsin a. ER staining showed weak positivity in approximately 10 to 20% of cells. MN was negative with 0% staining. HER-2 was positive at 3+ on immunohistochemistry stain. 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 Her most recent EGDwas in 2018. That study was done to evaluate epigastric spasms. It was performed by Dr. Rahman with the GI group in [place]. Pathology on the biopsy specimen report was not available but patient said her symptoms stopped when she changed from omeprazole to ease omeprazole. She did not have dysphagia. No odynophagia. No heartburn per se. She denied nausea. She has IBS mostly manifested as constipation. She has chronic intermittent left upper quadrant pain that she attributes to gas. No signs of GI bleeding. Patient lost a son to suicide on July 2020. Underwent EGD on 09/01/2020. Esophageal mucosal changes secondary to established short segment Posadas's disease was present in the lower third esophagus. The maximal longitudinal extent of these changes was 6 mm in length. Biopsies were obtained with cold forceps for histology. The entire examined stomach and duodenum were normal. Pathology: Esophagus, distal, biopsy Cardio-oxyntic mucosa with no diagnostic abnormality. - Negative for intestinal metaplasia. Ultrasound left breast on 09/02/2020 identified a 1.7 x 0.9 x 0.6 cm lobulated mass in the left breast at 1:00 anterior depth. It was hypoechoic and correlated with the mammography findings. It was adjacent to the surgical scar. She was referred for and underwent biopsy on 09/09/2020. Pathology: A. Left breast, needle core biopsy: - Invasive ductal carcinoma with mucinous features, provisional histologic grade 2 (see comment). Estrogen Receptor (ER) Positive (40%) Stain intensity: Moderate to strong Progesterone Receptor (PgR) Positive (1-5%) Stain intensity: Weak HER2 (ERBB2) IMMUNOHISTOCHEMISTRY ASSAY Interpretation: POSITIVE for HER2 (ERBB2) Expression Score: 3+ Whole body bone scan 09/04/2020: Whole body bone scan and spot images demonstrate moderately increased uptake at T12-L1, L4-5 and left L5 facet, corresponding to moderate degenerative change of the thoracolumbar spine and postsurgical change of L4-5 interbody fusion and pedicle alla and screws fixation of the left L4-5 on the abdomen and pelvic CT. Specifically, no abnormally increased or decreased uptake is identified in the mid thoracic spine to correspond to 1.4 cm T6 sclerotic lesion on recent chest CT. There is increased uptake involving both shoulders, sternoclavicular joints, left upper cervical spine, hips, knees, and ankles in a pattern most compatible with degenerative/arthritic disease. If clinically indicated, correlation with radiographs could be obtained at clinical discretion. No other areas of abnormal focal, regional or segmental osseous uptake are seen to suggest the presence of osseous metastatic lesions. INDETERMINATE 1.4 CM T6 SCLEROTIC LESION WITHOUT ASSOCIATED ABNORMAL TRACER UPTAKE IDENTIFIED. MRI thoracic spine 10/02/2020: IMPRESSION: T6 sclerotic focus. Given the lack of activity on the recent bone scan, this is most likely not an active metastatic lesion and may reflect a bone island. No evidence of metastatic disease to the thoracic vertebral bodies. Numerous hepatic metastatic lesions have been evaluated with CT recently. Previous therapy: 1) Docetaxel, pertuzumab and trastuzumab. 2) Trastuzumab and Pertuzumab. Current therapy: 1) Trastuzumab (Ontruzant). 2) Letrozole. Began 03/2021. Underwent left-sided simple mastectomy on 06/28/2023. Pathology: Left breast, mastectomy: - Residual invasive ductal carcinoma, Lorraine grade III, measuring 16 mm in greatest dimension (please see synoptic report and comment). 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 - Microcalcifications in invasive carcinoma, DCIS, changes consistent with prior procedure, and au of blood vessels. - Biopsy site changes, biopsy clip (x1), and changes consistent with prior procedure identified. [facility] 07/01/23 Diagnosis Comment Histologic sections of the grossly-identified 16 mm x 16 mm tumor bed demonstrates residual invasive and in-situ carcinoma. Tumor bed dimension #1: 16 mm Tumor bed dimension #2: 16 mm Invasive tumor cellularity: 50% Ductal carcinoma in situ cellularity: 5% SPECIMEN Procedure Total mastectomy Specimen Laterality Left TUMOR Histologic Type Invasive carcinoma of no special type (ductal) Histologic Grade (Lorraine Histologic Score) Glandular (Acinar) / Tubular Differentiation Score 3 Nuclear Pleomorphism Score 3 Mitotic Rate Score 3 Overall Grade Grade 3 (scores of 8 or 9) Tumor Size Greatest dimension of largest invasive focus (Millimeters): 16 mm Tumor Focality Single focus of invasive carcinoma Ductal Carcinoma In Situ (DCIS) Present Size (Extent) of DCIS Estimated size (extent) of DCIS is at least (Millimeters): 4 mm Architectural Patterns Solid Nuclear Grade Grade III (high) Necrosis Present, central (expansive "comedo" necrosis) Lobular Carcinoma In Situ (LCIS) Not identified Lymphatic and / or Vascular Invasion Not identified Dermal Lymphatic and / or Vascular Invasion Not identified Microcalcifications Present in DCIS Present in invasive carcinoma Present in non-neoplastic tissue Treatment Effect in the Breast Probable or definite response to presurgical therapy in the invasivecarcinoma MARGINS Margin Status for Invasive Carcinoma All margins negative for invasive carcinoma Distance from Invasive Carcinoma to Closest Margin Greater than: 2 mm Margin Status for DCIS All margins negative for DCIS Distance from DCIS to Closest Margin Greater than: 2 mm REGIONAL LYMPH NODES Regional Lymph Node Status Not applicable (no regional lymph nodes submitted or found) pTNM CLASSIFICATION (AJCC 8th Edition) Reporting of pT, pN, and (when applicable) pM categories is based on information available to the pathologist at the time the report is issued. As per the AJCC (Chapter 1, 8th Ed.) it is the managingphysician s responsibility to establish the final pathologic stage based upon all pertinent information, including but potentially not limited to this pathology report. Modified Classification y pT Category pT1c pN Category pN not assigned (no nodes submitted or found) Breast Biomarker Testing Performed on Previous Biopsy Estrogen Receptor (ER) Status Positive (greater than 10% of cells demonstrate nuclear positivity) Percentage of Cells with Nuclear Positivity 40 % Breast Biomarker Testing Performed on Previous Biopsy Progesterone Receptor (PgR) Status Positive Percentage of Cells with Nuclear Positivity 1-5 % Breast Biomarker Testing Performed on Previous Biopsy HER2 (by immunohistochemistry) Positive (Score 3+) Percentage of Cells with Uniform Intense Complete Membrane Staining 90 % Presents for ongoing oncologic management. Interim history: Developed cellulitis inferior portion incision. No pus. Started Tuesday. Temp to 99+ Tuesday evening. Saw PCP Tuesday. Culture obtained from drain bulb. Rx Bactrim x14 days. Has drain in. PMH, medications and allergies personally reviewed by me today. Any changes documented in appropriate section. ROS: Constitutional: Denies episodes of fever and night sweats. Neuro: Denies ROMERO, dizziness and imbalance. Denies symptoms of neuropathy. HEENT: No recent change in voice, vision or hearing. Resp: Denies cough, wheeze and hemoptysis. CVS: See above. : Denies dysuria or gross hematuria. No symptoms of bladder outlet obstruction. Endo: Denies hot flashes. Denies polyuria and polydipsia. Denies heat and cold intolerance. Derm: Denies rash. Denies jaundice and diffuse pruritis. Heme: Denies unusual bleeding and unexplained bruising. Psych: Normal mood. PHYSICAL EXAM: VITALS: Blood pressure 121/74, pulse 74, temperature 36.8 C (98.2 F), temperature source Temporal, weight 70.1 kg (154 lb 8 oz), SpO2 97%. EYES: Sclerae are anicteric bilaterally. RESPIRATORY: Normal passive respirations. CARDIOVASCULAR: Rhythm is regular. in room--Erythema inferior incision receeding from pen line. ABDOMEN: No abdominal distention. Extremities: No swelling or edema. SKIN: No jaundice. MS: Left chest wall seroma. LABS: ASSESSMENT/PLAN: (C50.919, Z17.0) Malignant neoplasm of breast in female, estrogen receptor positive, unspecified laterality, unspecified site of breast (HCC) (primary encounter diagnosis) (C78.7) Liver metastases (HCC) Assessment: -The patient is a 78-year-old female with a past medical history significant for hypertension, TIA and Posadas's esophagus, history of bleeding gastric ulcer as well as DCIS of the left breast who was found to have metastatic adenocarcinoma (liver) consistent with breast primary after presenting with epigastric pain. -Breast biopsy revealed invasive carcinoma with ER/MN and HER-2 status the same as the sample from liver biopsy. -KPS is 100%. -Has been tolerating trastuzumab well. -No symptoms, exam or echocardiographic findings of cardiomyopathy. -s/p left simple mastectomy. -Will discuss every 3 month Zometa. -Recurrent left chest seroma. Drain in. -Cellulitis responding to Bactrim. Plan: -NGS on tumor specimen. -Continue letrozole. -Continue trastuzumab. -Monitor CBC & CMP every 3 weeks & OV in 6 weeks. -Continue Bactrim. -Seeing Dr. Matos later this week. Portions of this documentation were copied and pasted from previous office visit notes in order to provide a cohesive continuity of the history. The note has been reviewed and edited and updated as necessary. I spent a total of 15 minutes on the date of the service which included preparing to see the patient, [id number] patient care, completing clinical documentation, obtaining and/or reviewing separately obtained history, performing a medically appropriate examination, counseling and educating the pat ient/family/caregiver, ordering medications, tests, or procedures, communicating with other HCPs (not separately reported), and communicating results to the patient/family/caregiver. Christiano Centeno DO documented in this encounterFort Hamilton Hospital07-30-2024 History of Present illness Narrative* Sandra Goodman RN - 01/03/2024 7:46 AM EDT Patient is here for IVAD port flush/blood draw per Nursing [facility] protocol. IVAD is located in right upper chest. Site cleansed with Chloraprep IVAD accessed with a #20 gauge 3/4" non-coring Gripper needle Flush with 5cc's Normal Saline. Blood Return: Good. 10 cc's blood aspirated and discarded. Blood drawn for CBC and CMP. Flushed with: 20 ml Normal Saline. Non-coring needle removed. Paper tape applied to puncture site. Site negative for redness, edema or tenderness. Patient tolerated procedure well. documented in this encounterFort Hamilton Hospital07-29-2024 History of Present illness Narrative* Michelle Angel RN - 01/02/2024 2:59 PM EDT Connected MRI injector to pt after flushing power port with 10ml of Normal saline and checking blood return. Once MRI completed flushed power port with 20ml of normal saline After flushing removed power port needle and covered with 2x2 and paper tape. Pt tolerated well. Michelle Angel Rn documented in this encounterFort Hamilton Hospital07-29-2024 History of Present illness Narrative* Eveline Gaitan, RT(R) - 01/02/2024 2:20 PM EDT Radiology Service Progress Note PATIENT NAME: Danette Bishop DATE OF SERVICE: January 02, 2024 TIME: 2:33 PM PATIENT IDENTITY VERIFICATION COMPLETED USING TWO (2) IDENTIFIERS: Name and Date of confirmedby patient verbally. FALL SCREENING: Has the patient had 2 falls in the last year or 1 fall with injury or currently using an Ambulatory Assistive Device (Walker, Cane, Wheelchair, Crutches, etc.)? No PATIENT GENDER DATA: Female. status: : No status: NO. PATIENT RELEVANT IMPLANT DATA REVIEWED: Yes PATIENT PRESENTS WITH AN IMPLANTABLE OR ATTACHED GARNETTER: No RADIOLOGY DEPARTMENT: MR; Exam(s) Completed: Body: Liver (routine) PERIPHERAL IV DATA: Site assessment: Clean,Dry and Intact, Site disposition Discontinued SIGNED BY: Eveline Gaitan RT(R) January 02, 2024 2:33 PM documented in this encounterFort Hamilton Hospital07-26-2024 Miscellaneous Notes* Telephone Encounter - Fatimah Tom - 12/30/2023 10:35 AM EDT Patient scheduled and informed * Telephone Encounter - Lovely Perales PSS - 12/30/2023 10:25 AM EDT Pt would like to use port for appt on 01/02/24 for MRI @ 2:20PM Please call pt with time documented in this encounterFort Hamilton Hospital07-26-2024 Telephone encounter Note * Telephone Encounter - Fatimah Tom - 12/30/2023 10:35 AM EDT Patient scheduled and informed [facility] Work Phone: [phone]) 684-126607-26-2024 Telephone encounter Note* Telephone Encounter - Lovely Perales PSS - 12/30/2023 10:25 AM EDT Pt would like to use port for appt on 01/02/24 for MRI @ 2:20PM Please call pt with time [facility]07-[facility] Telephone encounter Note* Telephone Encounter - Kelly Robles MA - 12/30/2023 9:[address] [facility] Discharge Summary [facility]07-26-[facility] Miscellaneous Notes* Telephone Encounter - Kelly Robles MA - 12/30/2023 9:[address] [facility] Discharge Summary documented in this encounterFort Hamilton Hospital07-23-2024 NoteHNO ID: [id number] Author: FREDA MATOS, DO Service: ? Author Type: Physician Type: Progress Notes Filed: 12/27/2023 16:34 Note Text: REASON FOR TODAY'S VISIT: Patient presents with: Post Op HISTORY of PRESENT ILLNESS: Danette Bishop is a 78 year old female who is s/p a LEFT mastectomy chronic seroma drainage and revision on 12/06/23 She reports > 30ml of daily drainage output from the Drain for the past 2 days. She denies any redness, bruising, swelling or discharge from the incision. She denies any fever or chills. Pain of the surgical site is reported as minimal and intermittent.. SURGICAL PATHOLOGY: 12/06/23 FINAL DIAGNOSIS A: Breast, left, mastectomy seroma capsule, excision: - Densely sclerotic fibrous tissue associated with microcalcifications, consistent with seroma capsule. - Prior procedure site changes. - Skin with no significant histopathologic abnormalities. B: Breast, left, lateral margin, excision: - Skin and subcutaneous tissue with no significant histopathologic abnormalities. BREAST EXAMINATION: The patient was examined in the upright position. RIGHT breast mastectomy with horizontal incision healing. No seroma or hematoma, MATTI in place, draining too much to be removed Incision flat RIGHT UE no lymphedema, good ROM IMPRESSION: Danette Bishop is a 78 year old female who is s/p a LEFT mastectomy chronic seroma drainage and revision on 12/06/23. 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 All questions were answered and had no further concerns. Hold on the ADRIÁN wrap for now Will re wrap once the MATTI is removed Will call to have MATTI removed when less than 20 cc for 3 days Continue with US ROM exercises She has our names and numbers to stay in touch if she has any questions, concerns or problems in the interim. Freda Matos DO Breast SurgeonFarren Memorial [id number] History of Present illness Narrative* Freda Matos DO - 12/27/2023 4:28 PM EDT REASON FOR TODAY'S VISIT: Patient presents with: Post Op HISTORY of PRESENT ILLNESS: Danette Bishop is a 78 year old female who is s/p a LEFT mastectomy chronic seroma drainage andrevision on 12/06/23 She reports > 30ml of daily drainage output from the Drain for the past 2 days. She denies any redness, bruising, swelling or discharge from the incision. She denies any fever or chills. Pain of the surgical site is reported as minimal and intermittent.. SURGICAL PATHOLOGY: 12/06/23 FINAL DIAGNOSIS A: Breast, left, mastectomy seroma capsule, excision: - Densely sclerotic fibrous tissue associated with microcalcifications, consistent with seroma capsule. - Prior procedure site changes. - Skin with no significant histopathologic abnormalities. B: Breast, left, lateral margin, excision: - Skin and subcutaneous tissue with no significant histopathologic abnormalities. BREAST EXAMINATION: The patient was examined in the upright position. RIGHT breast mastectomy with horizontal incision healing. No seroma or hematoma, MATTI in place, draining too much to be removed Incision flat RIGHT UE no lymphedema, good ROM IMPRESSION: Danette Bishop is a 78 year old female who is s/p a LEFT mastectomy chronic seroma drainage andrevision on 12/06/23. 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 All questions were answered and had no further concerns. Hold on the ADRIÁN wrap for now Will re wrap once the MATTI is removed Will call to have MATTI removed when less than 20 cc for 3 days Continue with US ROM exercises She has our names and numbers to stay in touch if she has any questions, concerns or problems in the interim. Freda aMtos DO Breast Surgeon documented in this encounterFort [facility]07-19-2024 Nurse Note* Kelly Aguayo LPN - 12/23/2023 11:22 AM EDT Post op Last mammogram on: 03/16/23 bilateral Results: see report Is the patient active on [employer] Yes Electronically Signed By: Kelly Aguayo LPN In Department: GENERAL SURGERY REVIEW OF PATIENT HISTORY: OB History T2 L1 SAB0 IAB0 Ectopic0 Multiple0 Live Births0 Comment: .Menarche: 12; Age at 1st : 25; Post menopausal FAMILY HISTORY Problem Relation Age of Onset Colon Cancer Mother mets to stomach Stroke Father at age 62 Breast Cancer Sister 85 Heart disease Paternal Grandmother CAD PAST MEDICAL HISTORY Diagnosis Date Breast cancer (HCC) 2012 left Breast cancer (HCC) 04/2023 local recurrence on left GI bleed 2008 Hypertension Liver nodule TIA (transient ischemic attack) 2012 PAST SURGICAL HISTORY Procedure Laterality Date COLONOSCOPY every 5 yrs due to f/h colon cqan all normal per pt EGD GERD EGD 09/01/2020 Repeat in 2 years INSJ TUNNELED CTR VAD W/SUBQ PORT AGE 5 YR/> 09/29/2020 PAST SURGICAL HISTORY OF thyroid removal PAST SURGICAL HISTORY OF left breast 2 episodes of DCIS PAST SURGICAL HISTORY OF back surgeries times 2 Social History Tobacco Use Smoking status: Former Years: 2 Types: Cigarettes Quit date: 09/16/1965 Years since quittin.3 Smokeless tobacco: Never Tobacco comments: Pt smoked 2-3 cigarettes daily x 2 years. Vaping Use Vaping Use: Never used Substance Use Topics Alcohol use: Yes Comment: moderate Drug use: No [facility]07-[facility] Nurse Note* Kelly Aguayo LPN - 12/23/2023 11:22 AM EDT Post op Last mammogram on: 03/16/23 bilateral Results: see report Is the patient active on [employer] Yes Electronically Signed By: Kelly Aguayo LPN In Department: GENERAL SURGERY REVIEW OF PATIENT HISTORY: OB History T2 L1 SAB0 IAB0 Ectopic0 Multiple0 Live Births0 Comment: .Menarche: 12; Age at 1st : 25; Post menopausal FAMILY HISTORY Problem Relation Age of Onset Colon Cancer Mother mets to stomach Stroke Father at age 62 Breast Cancer Sister 85 Heart disease Paternal Grandmother CAD PAST MEDICAL HISTORY Diagnosis Date Breast cancer (HCC) 2012 left Breast cancer (HCC) 04/2023 local recurrence on left GI bleed 2008 Hypertension Liver nodule TIA (transient ischemic attack) 2012 PAST SURGICAL HISTORY Procedure Laterality Date COLONOSCOPY every 5 yrs due to f/h colon cqan all normal per pt EGD GERD EGD 09/01/2020 Repeat in 2 years INSJ TUNNELED CTR VAD W/SUBQ PORT AGE 5 YR/> 09/29/2020 PAST SURGICAL HISTORY OF thyroid removal PAST SURGICAL HISTORY OF left breast 2 episodes of DCIS PAST SURGICAL HISTORY OF back surgeries times 2 Social History Tobacco Use Smoking status: Former Years: 2 Types: Cigarettes Quit date: 09/16/1965 Years since quittin.3 Smokeless tobacco: Never Tobacco comments: Pt smoked 2-3 cigarettes daily x 2 years. Vaping Use Vaping Use: Never used Substance Use Topics Alcohol use: Yes Comment: moderate Drug use: No documented in this encounterFort [facility] Hospital07-02-2024 NoteHNO ID: [id number] Author: ?, ?, ? Service: ? Author Type: ? Type: Plan of Care Filed: 12/07/2023 12:46 Note Text: PHARMACY BEDSIDE DELIVERY SERVICE Patient Name: Danette Bishop The marked outpatient medications were filled at [facility] pharmacy and picked up at the pharmacy by , DAYANARA BISHOP. Medication List START taking these medications cefADROxil 500 mg capsule Commonly known as: DURICEF Take 1 capsule by mouth two times a day for 5 days. CHANGE how you take these medications clopidogrel 75 mg tablet Commonly known as: PLAVIX Take 1 tablet by mouth once daily. Patient should start on December 20, 2023. Start taking on: December 20, 2023 What changed: These instructions start on December 20, 2023. If you are unsure what to do until then, ask your doctor or other care provider. CONTINUE taking these medications ALPRAZolam 0.5 mg tablet Commonly known as: XANAX D-MANNOSE ORAL esomeprazole 40 mg capsule Commonly known as: NexIUM FLUoxetine 40 mg capsule Commonly known as: PROzac Take 1 capsule by mouth once daily. HYDROcodone-acetaminophen 5-325 mg per tablet Commonly known as: NORCO Take 1 tablet by mouth every 6 hours as needed for pain for up to 3 days. letrozole 2.5 mg tablet Commonly known as: FEMARA Take 1 tablet by mouth once daily. levothyroxine 112 mcg tablet Commonly known as: SYNTHROID liothyronine 5 mcg tablet Commonly known as: CYTOMEL lisinopril 20 mg tablet Commonly known as: ZESTRIL multivitamin tablet promethazine 25 mg tablet Commonly known as: PHENERGAN Take 1 tablet by mouth every 6 hours as needed. FOR NAUSEA TYLENOL ORAL VITAMIN C 1,000 mg tablet Generic drug: Ascorbic Acid zolpidem 10 mg Commonly known as: AMBIEN You might also be taking other medications not listed above. If you have questions about any of your other medications, talk to the person who prescribed them or your Primary Care Provider. 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 Staffing Anesthesiologist: Sam Adkins MD GENERAL MERCHANDISE MANAGER: Lyubov Greene APRN.GENERAL MERCHANDISE MANAGER Performed by: GENERAL MERCHANDISE MANAGER Indications and Patient Condition Indications for airway management: anesthesia Preoxygenated: yes anesthesia circuit Patient position: sniffing Method: asleep Difficult Mask: No Final Airway Details Final airway type: supraglottic airway Number of attempts at approach: 1 Final Supraglottic Airway: IGEL Size 4 Seal Adequate: yes Airway not difficult Comments Dentition same as preop SIGNATURE: Lyubov Greene APRN.GENERAL MERCHANDISE MANAGER PATIENT NAME: Danette Bishop DATE: December 06, 2023 TIME: 11:08 AM CSN: [id number] History of Present illness Narrative* Domenic Kelley APRN.GREASE REFINER OPERATOR - 11/23/2023 1:29 PM EDT Chief Complaint Patient presents with: Established Patient HPI: Danette Bishop is a 78 year old female who presents here today for evaluation for treatment on Tuesday. Per Dr. Centeno's previous note: H/o hypertension, stroke (x2; not on ASA because of h/o bleeding ulcer) and DCIS. Treated for left sided DCIS with lumpectomy and radiation when living in [place] in 2012. Started on tamoxifen but had negative side effects then sounds like she was tried on an aromatase inhibitor but have musculoskeletal side effects and then stopped treatment. Had been getting routine mammography in [place] until 2013. Since has been getting mammogram at [facility]. Most recent was on 12/28/2019. Scattered benign calcifications were observed. There were no dense spiculated masses or suspicious microcalcifications identified. Fairly stable architectural distortion in the left breast with previous surgery. No skin thickening or retraction. Significant change from previous mammogram on 12/05/2018. She developed abdominal pain in July 2020. Initially had an ultrasound on 07/08/2020 that demonstrated a 2.7 x 3.2 x 2.6 cm hypoechoic solid nodule in the right lobe of liver. MRI Liver 08/08/2020: Liver: Multiple solid masses in the right lobe of the liver. Largest of these is seen within the peripheral right lobe of the liver and measures 2.5 x 2.5 cm. Biliary tract: The common bile duct is normal in course and caliber. No filling defect is identified within the common duct. Gallbladder: Unremarkable Pancreatic duct: 7 mm T2 bright lesion involving the pancreatic tail. No dilatation of the pancreatic duct. Spleen: No lesion is identified. Pancreas: The pancreas enhances normally and is without focal lesions. Adrenal glands: No mass is identified Kidneys: Simple appearing cortical cysts involving both kidneys. No hydronephrosis. Possible lesion involving the T6 vertebral body. Postsurgical change involving the left breast. No adenopathy is identified. Imaged lung bases are clear. No pericardial effusion or pericardial thickening. CT of chest, abdomen pelvis revealed no thoracic lymphadenopathy. There was a nonspecific scleroticdensity in the vertebral body of T6. Scarring was noted in the left breast. No pulmonary nodules. CT of the abdomen pelvis reveals scattered hepatic masses favoring metastatic disease. There is left lateral abdominal wall hernia containing nondilated descending colon. Biopsy one of the right lobe of the liver lesions performed on 08/21/2020. Pathology: Metastatic adenocarcinoma with prominent mucinous features. Tumor cells were positive for CK7 and GATA3 and negative for CK20, TTF-1 and Napsin a. ER staining showed weak positivity in approximately 10 to 20% of cells. MN was negative with 0% staining. HER-2 was positive at 3+ on immunohistochemistry stain. She has a history of Posadas's esophagus which was initially diagnosed in 2009. Her most recent EGDwas in 2019. That study was done to evaluate epigastric spasms. It was performed by Dr. Rahman with the GI group in [place]. Pathology on the biopsy specimen report was not available but patient said her symptoms stopped when she changed from omeprazole to ease omeprazole. She did not have dysphagia. No odynophagia. No heartburn per se. She denied nausea. She has IBS mostly manifested as constipation. She has chronic intermittent left upper quadrant pain that she attributes to gas. No signs of GI bleeding. Patient lost a son to suicide on July 2020. Underwent EGD on 09/01/2020. Esophageal mucosal changes secondary to established short segment Posadas's disease was present in the lower third esophagus. The maximal longitudinal extent of these changes was 6 mm in length. Biopsies were obtained with cold forceps for histology. The entire examined stomach and duodenum were normal. Pathology: Esophagus, distal, biopsy Cardio-oxyntic mucosa with no diagnostic abnormality. - Negative for intestinal metaplasia. Ultrasound left breast on 09/02/2020 identified a 1.7 x 0.9 x 0.6 cm lobulated mass in the left breast at 1:00 anterior depth. It was hypoechoic and correlated with the mammography findings. It was adjacent to the surgical scar. She was referred for and underwent biopsy on 09/09/2020. Pathology: A. Left breast, needle core biopsy: - Invasive ductal carcinoma with mucinous features, provisional histologic grade 2 (see comment). Estrogen Receptor (ER) Positive (40%) Stain intensity: Moderate to strong Progesterone Receptor (PgR) Positive (1-5%) Stain intensity: Weak HER2 (ERBB2) IMMUNOHISTOCHEMISTRY ASSAY Interpretation: POSITIVE for HER2 (ERBB2) Expression Score: 3+ Whole body bone scan 09/04/2020: Whole body bone scan and spot images demonstrate moderately increased uptake at T12-L1, L4-5 and left L5 facet, corresponding to moderate degenerative change of the thoracolumbar spine and postsurgical change of L4-5 interbody fusion and pedicle alla and screws fixation of the left L4-5 on the abdomen and pelvic CT. Specifically, no abnormally increased or decreased uptake is identified in the mid thoracic spine to correspond to 1.4 cm T6 sclerotic lesion on recent chest CT. There is increased uptake involving both shoulders, sternoclavicular joints, left upper cervical spine, hips, knees, and ankles in a pattern most compatible with degenerative/arthritic disease. If clinically indicated, correlation with radiographs could be obtained at clinical discretion. No other areas of abnormal focal, regional or segmental osseous uptake are seen to suggest the presence of osseous metastatic lesions. INDETERMINATE 1.4 CM T6 SCLEROTIC LESION WITHOUT ASSOCIATED ABNORMAL TRACER UPTAKE IDENTIFIED. MRI thoracic spine 10/02/2020: IMPRESSION: T6 sclerotic focus. Given the lack of activity on the recent bone scan, this is most likely not an active metastatic lesion and may reflect a bone island. No evidence of metastatic disease to the thoracic vertebral bodies. Numerous hepatic metastatic lesions have been evaluated with CT recently. Previous therapy: 1) Docetaxel, pertuzumab and trastuzumab. 2) Trastuzumab and Pertuzumab. Current therapy: 1) Trastuzumab (Ontruzant). 2) Letrozole. Began 03/2021. Underwent left-sided simple mastectomy on 06/28/2023. Pathology: Left breast, mastectomy: - Residual invasive ductal carcinoma, Lorraine grade III, measuring 16 mm in greatest dimension (please see synoptic report and comment). 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 - Microcalcifications in invasive carcinoma, DCIS, changes consistent with prior procedure, and au of blood vessels. - Biopsy site changes, biopsy clip (x1), and changes consistent with prior procedure identified. [facility] 07/01/23 Diagnosis Comment Histologic sections of the grossly-identified 16 mm x 16 mm tumor bed demonstrates residual invasive and in-situ carcinoma. Tumor bed dimension #1: 16 mm Tumor bed dimension #2: 16 mm Invasive tumor cellularity: 50% Ductal carcinoma in situ cellularity: 5% SPECIMEN Procedure Total mastectomy Specimen Laterality Left TUMOR Histologic Type Invasive carcinoma of no special type (ductal) Histologic Grade (Lorraine Histologic Score) Glandular (Acinar) / Tubular Differentiation Score 3 Nuclear Pleomorphism Score 3 Mitotic Rate Score 3 Overall Grade Grade 3 (scores of 8 or 9) Tumor Size Greatest dimension of largest invasive focus (Millimeters): 16 mm Tumor Focality Single focus of invasive carcinoma Ductal Carcinoma In Situ (DCIS) Present Size (Extent) of DCIS Estimated size (extent) of DCIS is at least (Millimeters): 4 mm Architectural Patterns Solid Nuclear Grade Grade III (high) Necrosis Present, central (expansive "comedo" necrosis) Lobular Carcinoma In Situ (LCIS) Not identified Lymphatic and / or Vascular Invasion Not identified Dermal Lymphatic and / or Vascular Invasion Not identified Microcalcifications Present in DCIS Present in invasive carcinoma Present in non-neoplastic tissue Treatment Effect in the Breast Probable or definite response to presurgical therapy in the invasivecarcinoma MARGINS Margin Status for Invasive Carcinoma All margins negative for invasive carcinoma Distance from Invasive Carcinoma to Closest Margin Greater than: 2 mm Margin Status for DCIS All margins negative for DCIS Distance from DCIS to Closest Margin Greater than: 2 mm REGIONAL LYMPH NODES Regional Lymph Node Status Not applicable (no regional lymph nodes submitted or found) pTNM CLASSIFICATION (AJCC 8th Edition) Reporting of pT, pN, and (when applicable) pM categories is based on information available to the pathologist at the time the report is issued. As per the AJCC (Chapter 1, 8th Ed.) it is the managingphysician s responsibility to establish the final pathologic stage based upon all pertinent information, including but potentially not limited to this pathology report. Modified Classification y pT Category pT1c pN Category pN not assigned (no nodes submitted or found) Breast Biomarker Testing Performed on Previous Biopsy Estrogen Receptor (ER) Status Positive (greater than 10% of cells demonstrate nuclear positivity) Percentage of Cells with Nuclear Positivity 40 % Breast Biomarker Testing Performed on Previous Biopsy Progesterone Receptor (PgR) Status Positive Percentage of Cells with Nuclear Positivity 1-5 % Breast Biomarker Testing Performed on Previous Biopsy HER2 (by immunohistochemistry) Positive (Score 3+) Percentage of Cells with Uniform Intense Complete Membrane Staining 90 % Pt. here today with spouse. Appetite:"Craving sweets as usual." Energy level:"About 5-6 mostly due to back aches." Denies fevers or recent illness. Resp:denies cough or sob Cardiac:denies chest pain/palpitations GI:denies abd pain, n/v, moving bowels regularly-will occ. take otc med :denies dysuria/hematuria Extrem:chronic back pain, s/p 2 back surgeries Neuro:denies symptoms of neuropathy Skin:denies rashes Heme:denies blleding The ROS is otherwise negative. Past medical history, appointments, medications, allergies reviewed. No changes. EXAM: BP 120/75 Pulse 74 Temp 36.2 C (97.1 F) (Temporal) Wt 69.9 kg (154 lb) SpO2 96% BMI 29.10kg/m APPEARANCE Well appearing, alert, in no acute distress, well-hydrated, well nourished. HEART RRR with normal S1 and S2, no murmurs LUNG clear to auscultation BREAST FEMALE L mastectomy seroma LYMPH NODES No cervical lymphadenopathy, No supraclavicular lymphadenopathy, and No axillary lymphadenopathy. ABDOMEN bowel sounds normoactive, soft, non-tender, non-distended EXTREMITIES No edema BLE NEURO Awake, alert and oriented x 3, Normal gait, and No involuntary motions. SKIN Skin color, texture, turgor normal, no suspicious rashes or lesions LABS: Latest Ref Rng 10/10/2023 11/04/2023 11/22/2023 WBC 3.70 - 11.00 k/uL 6.63 7.65 7.03 RBC 3.90 - 5.20 m/uL 4.18 3.96 3.99 Hemoglobin 11.5 - 15.5 g/dL 12.2 11.7 11.8 Hematocrit 36.0 - 46.0 % 36.9 35.0 (L) 35.4 (L) MCV 80.0 - 100.0 fL 88.3 88.4 88.7 MCH 26.0 - 34.0 pg 29.2 29.5 29.6 MCHC 30.5 - 36.0 g/dL 33.1 33.4 33.3 RDW-CV 11.5 - 15.0 % 15.1 (H) 15.3 (H) 15.7 (H) Platelet Count 150 - 400 k/uL 334 335 373 MPV 9.0 - 12.7 fL 9.6 9.9 9.3 Neut% % 59.2 58.5 58.6 Abs Neut (ANC) 1.45 - 7.50 k/uL 3.93 4.48 4.12 Lymph% % 30.6 33.5 32.6 Abs Lymph 1.00 - 4.00 k/uL 2.03 2.56 2.29 [place]% % 6.5 5.4 6.1 Abs [place] <0.87 k/uL 0.43 0.41 0.43 Eosin% % 2.3 1.2 1.3 Abs Eosin <0.46 k/uL 0.15 0.09 0.09 Baso% % 1.2 1.3 1.1 Abs Baso <0.11 k/uL 0.08 0.10 0.08 Immature Gran % % 0.2 0.1 0.3 IMMATURE GRANS (ABS) <0.10 k/uL <0.03 <0.03 <0.03 NRBC /100 WBC 0.0 0.0 0.0 Absolute nRBC <0.01 k/uL <0.01 <0.01 <0.01 DTYPE Auto Auto Auto Latest Ref Rng 10/10/2023 11/04/2023 11/22/2023 Protein, Total 6.3 - 8.0 g/dL 6.7 6.8 7.0 Albumin 3.9 - 4.9 g/dL 4.1 4.2 4.2 Calcium 8.5 - 10.2 mg/dL 9.4 9.3 9.2 Bilirubin, Total 0.2 - 1.3 mg/dL 0.5 0.5 0.8 Alkaline Phosphatase 34 - 123 U/L 77 80 85 AST 13 - 35 U/L 14 15 16 ALT 7 - 38 U/L 12 11 13 Glucose 74 - 99 mg/dL 92 123 (H) 93 BUN 7 - 21 mg/dL 15 16 11 Creatinine 0.58 - 0.96 mg/dL 0.65 0.68 0.66 Sodium 136 - 144 mmol/L 136 133 (L) 135 (L) Potassium 3.7 - 5.1 mmol/L 4.1 4.0 3.9 Chloride 98 - 107 mmol/L 102 102 101 CO2 22 - 30 mmol/L 28 23 25 Anion Gap 8 - 15 mmol/L 6 (L) 8 (L) 9 eGFR >=60 mL/min/1.73m 90 89 90 ASSESSMENT/PLAN: 1. 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, right (HCC) - ICD9: 174.9, 197.7, ICD10: C50.911, C78.7 (primary diagnosis) 2. HER2-positive carcinoma of left breast (HCC) - ICD9: 174.9, ICD10: C50.912 3. Local recurrence of cancer of left breast (HCC) - ICD9: 174.9, ICD10: C50.912 - No new concerning findings on exam. - Chronic L mastectomy seroma. - Overall tolerating herceptin/femara well. - Reviewed labs/US with pt. Liver not well visualized. - Continue femara. - I&D scheduled with Dr. Matos December 05 for L breast seroma. - MRI abd soon. - Proceed as scheduled on Tuesday for herceptin. - Follow up as scheduled otherwise. - Pt. aware to call office with any questions/concerns. The patient indicates understanding of these issues and agrees with the plan. All documentation from previous visit of 10/11/23-Dr. Centeno was copied and pasted, documentation has been reviewed and edited as necessary for today's visit. Domenic Kelley APRN.BEA documented in this encounterFort [facility] Hospital06-17-2024 Instructions* Patient Instructions* [place] APRN.CNP - 11/21/2023 1:53 PM EDT PATIENT PREOPERATIVE INSTRUCTIONS Freda Matos DO has scheduled you for your procedure at this surgery center: [facility]: [phone] --[id number] [address]. Please check in on the1st floor at registration desk 6. Please read below carefully for your personalized instructions. Dietary Restrictions: - No solid food after midnight. - You may have 12 ounces of clear liquids (water, clear juices such as apple juice or gatorade, carbonated beverages, clear tea, black coffee, jello) until 2 hours before scheduled arrival at facility. No red/purple coloring and no creamer/sugar Medications: Unless instructed differently below, stay on all of your medications until your surgery. If you start any new medications after today's visit, please contact your surgeon. Pre-Surgery Med Instructions Medication Instructions D-MANNOSE ORAL Stop 7 days before surgery HYDROcodone-acetaminophen (NORCO) 5-325 mg per tablet IF needed letrozole (FEMARA) 2.5 mg tablet Take the day of surgery with a small sip of water Ascorbic Acid (VITAMIN C) 1,000 mg tablet Stop 7 days before surgery FLUoxetine (PROZAC) 40 mg capsule Take the day of surgery with a small sip of water multivitamin tablet Stop 7 days before surgery levothyroxine (SYNTHROID) 112 mcg tablet Take the day of surgery with a small sip of water promethazine (PHENERGAN) 25 mg tablet IF needed liothyronine (CYTOMEL) 5 mcg tablet Take the day of surgery with a small sip of water lisinopril (ZESTRIL, PRINIVIL) 20 mg tablet Do not take the day of surgery esomeprazole (NEXIUM) 40 mg capsule Take the day of surgery with a small sip of water ACETAMINOPHEN (TYLENOL ORAL) IF needed zolpidem (AMBIEN) 10 mg tab Do not take the day of surgery ALPRAZolam (XANAX) 0.5 mg tablet IF needed clopidogrel (PLAVIX) 75 mg tablet Stop 5 days before surgery If you start any new medications after today's visit, please contact the surgeon's office. Blood Thinning Medications: - Stop NSAIDS (Ibuprofen, Advil, Aleve, Motrin, Celebrex, Mobic, etc.) 7 days before surgery, as directed by your surgeon. - Stop Aspirin 7 days before surgery, as directed by your surgeon. - Stop Plavix 5 days before surgery or as directed by physician. - Stop Vitamin E, ALL multi-vitamins, herbals and dietary supplements 7 days before surgery. - You may take Tylenol (Acetaminophen) or any of your pain medications that do not contain aspirin or NSAIDS as needed. Important Reminders: - Candy, mints, and tobacco products are NOT permitted the morning of surgery. - Hearing aids, dentures and glasses may be worn the morning of surgery. - NO jewelry, body piercings, makeup, hairpins or contacts are to be worn the day of surgery. If you develop symptoms such as a fever, cold, or flu, or have other changes to your health within TWO DAYS of scheduled surgery or the morning of surgery, please contact the surgery center above. Personal Belongings: -Please have photo ID and insurance cards. -If you do not have a copy of advance directives on file with us, please bring a copy with you on the day of surgery. - Leave ALL valuables and money at home or with family members. For Outpatient Procedures: - YOU MUST HAVE A RESPONSIBLE ALL SOURCE INTELLIGENCE TECHNICIAN TAKE YOU HOME. A MANAGER AUTO OR CLINICAL INFORMATICS DIRECTOR CANNOT BE MADE A RESPONSIBLE ALL SOURCE INTELLIGENCE TECHNICIAN. - We recommend that a responsible person stays with you overnight to take care of you. - You cannot stay in a hotel alone after outpatient surgery. You will not be permitted to have yoursurgery, if you do not have someone to take care of you. Arrival Time for Surgery: - The Surgery Center or hospital where you are having surgery will call the afternoon before surgery (or Tuesday for Tuesday surgery) with a scheduled arrival time. - If you have not heard by 4 pm, please contact the surgery center above. Please be aware that emergency situations arise, which may delay or change your surgical time. If this happens, we will notify you as soon as possible and regret any inconvenience. If you already have an Advance Directive, please fax a copy to [phone] or email to for it to be added to your chart. If you do not have an Advance Directive, you can find the appropriate form and more information at [email or web address]. We recommend that youcomplete the Advance Directive form found on the website and bring it with you the day of your surgery. It can be witnessed and scanned into your chart that day. Little George APRN.GREASE REFINER OPERATOR [facility] History and physical note * iLttle George APRN.BEA - 11/21/2023 1:49 PM EDT HISTORY AND PHYSICAL EXAMINATION SERVICE DATE: 11/21/2023 SERVICE TIME: 2:11 PM PRIMARY CARE PHYSICIAN: Tami Chang MD Assessment Patient has the following medical conditions which may affect rhianna-operative course: Grade I diastolic dysfunction Assessment: EF 60% 10/2023 Recent Results (from the past 80732 hour(s)) ECHO Collection Time: 11/04/23 10:35 AM Impression CONCLUSIONS: - Technically difficult exam due to body habitus and left mastectomy/seroma. - Exam indication: Baseline and serial evaluation in a patient undergoing therapy with cardiotoxic agents - The left ventricle is normal in size. Left ventricular systolic function is normal. EF = 60 5% (2D biplane) Grade I left ventricular diastolic dysfunction. - The right ventricle is normal in size. Right ventricular systolic function is normal. - Exam was compared with the prior echocardiographic exam performed on 04/18/2023, no significant change. * * * Final * * * Sleep apnea Assessment: non-compliant with CPAP History of Posadas's esophagus Assessment: GERD, controlled on rx Hypothyroidism, unspecified Assessment: stable on rx BCC (basal cell carcinoma of skin) Assessment: s/p excision Chronic back pain Assessment: hx back surgeries x2, rx as needed Anxiety and depression Assessment: stable on rx per pt TIA (transient ischemic attack) Assessment: x3, daily Plavix, pt states PCP gave her instructions at last OV to hold 5 days prior to surgery pt confirmed. Stage IV breast cancer in female (HCC) Assessment: s/p a LEFT simple mastectomy for local control in the setting of stage IV diease on 06/28/2023. Final pathology reported IDC 1.6 cm with DCIS, Grade 3 (margins clear) LN not removed ER+MN+HER2+ Genetic testing negative She continues to have a recurrent - chronic LEFT mastectomy seroma Breast cancer hx: LEFT breast cancer in 2013, s/p lumpectomy, XRT. In 2020 diagnosed with metastatic breast cancer to her liver. Liver mass 3.2 cm. Imaging and biopsyshow a local recurrence LEFT breast cancer 1.7 cm mass with associated calcifications (span 4 cm) @1:00 position. S/p chemotherapy with a good clinical response in the liver. PET scan with continued update in the breast. [id number] - stage IV ER+MN+HER2+ Orr Activity Status Index: METS: Climb a flight of stairs or walk up a hill (5.50 METs) DASI Score: 5.5 Patient denies any chest pain or undue shortness of breath with the above physical activity. Clinical Frailty Scale: 3. Well, with treated comorbid disease STOP-Bang Score: Snores loudly Often feels tired, fatigued, or sleepy during the daytime Has been observed to stop breathing or choking/gasping during sleep Has or is being treated for high blood pressure Patient over 50 years old BMI less than or equal to 35 kg/m^2 Does not have a large neck Non-male patient STOP-Bang Score: 5 [id number] Score: Age: >=75 Sex: female CHF history: Yes Hypertension history: Yes Stroke/TIA/thromboembolism history: Yes Vascular disease history: No Diabetes history: No [id number] Score: 7 ARISCAT Score: Age: 51-80 Preoperative SpO2: >=96% Respiratory infection in the last month: No Preoperative anemia: No Surgical incision: peripheral Duration of surgery: <2 hrs Emergency procedure: No ARISCAT Score: 3 ANESTHESIA FINDINGS: Intubation History: No history of difficult intubation Significant Anesthesia Considerations: none Airway History: No history of difficult airway I - PHYSICAL EVALUATION AIRWAY Patient intubated: No. Tracheostomy tube not present Mallampati: II. TM distance: >3 FB. Neck ROM: limited flexion and extension. Mouth opening: adequate. Short neck: no. Thick neck: yes Singh present: no Lip Bite Test: I Microretrognathia/Micronagthia/Recessed Chin: No DENTAL Dentures, upper: complete. Dentures, lower: complete. II - ANESTHESIA PLAN Anesthetic Plan: other Beta Javi Monitoring Plan Post Procedure Analgesic Plan Informed Consent Anesthetic risks, benefits, alternatives, personnel and consent discussed: yes. Patient / Responsible Republican agrees to proceed: yes Patient / Surrogate agrees to blood products: blood products not planned Discussed the possibility of lip / dental damage: yes Prepared for Surgery: optimally prepared for surgery. CONSULTS: Patient does not require consults for optimization at this time Planned Anesthetic: other anesthesia choice The Following Tests/Procedures Have Been Initiated: No orders of the defined types were placed in this encounter. REASON FOR VISIT: Danette Bishop is a 78 year old female who is scheduled for Procedure(s): INCISION & DRAINAGE OF SEROMA (Left) REVISION SCAR BREAST > 4.0CM (Left) at the request of Dr. Freda Matos for consultation. My final recommendation will be communicated back to the requesting physician by way of shared medical record or letter. 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) Sleep Apnea History of Posadas's Esophagus Hypothyroidism, Unspecified Tia (Transient Ischemic Attack) Grade I Diastolic Dysfunction Anxiety and Depression Bcc (Basal Cell Carcinoma of Skin) Chronic Back Pain Carcinoma of Left Breast, Stage 4 (Hcc) Seroma of Breast COVID-19 Immunization Status Overdue - Covid-19 Vaccine ( season) Overdue since 07/13/2023 03/12/2023 Imm Admin: COVID-19 vaccine, age 12+ yr, season (MODERNA) 02/19/2022 Imm Admin: COVID-19 vaccine, age 12+ yr, bivalent (MODERNA) 07/30/2021 Imm Admin: COVID-19 original vaccine, full dose, monovalent (MODERNA) Only the first 3 history entries have been loaded, but more history exists. CHIEF COMPLAINT: Pre-op exam HPI: Danette Bishop is a 78 year old seen for PAC due to scheduled above surgery because h/o breast cancer/seroma. 11/09/2023, Dr. Freda Matos HISTORY of PRESENT ILLNESS: Danette Bishop, 78 year old year old female, s/p a LEFT simple mastectomy for local control in the setting of stage IV diease on 06/28/2023. Final pathology reported IDC 1.6 cm with DCIS, Grade 3 (margins clear) LN not removed ER+MN+HER2+ Genetic testing negative She continues to have a recurrent - chronic LEFT mastectomy seroma Breast cancer hx: LEFT breast cancer in 2012, s/p lumpectomy, XRT. In 2020 diagnosed with metastatic breast cancer to her liver. Liver mass 3.2 cm. Imaging and biopsyshow a local recurrence LEFT breast cancer 1.7 cm mass with associated calcifications (span 4 cm) @1:00 position. S/p chemotherapy with a good clinical response in the liver. PET scan with continued update in the breast. [id number] - stage IV ER+MN+HER2+ Past medical history significant for hypertension, stroke (x2; not on ASA because of h/o bleeding ulcer), on plavix anticoagulation She states she needs something done for this chronic recurrent seroma We discussed surgery to remove the seroma capsule, excess skin and re-place a drain. She would like to proceed with surgery. Will need perioperative management of her Plavix REVIEW OF SYSTEMS: General: No weight loss, malaise or fevers. Neurological: Positive for: headaches and TIA (x3, Plavix). Negative for: cerebral palsy, delirium, dementia, multiple sclerosis, Parkinson's disease, peripheral neuropathy, seizures and strokes. Respiratory: +former smoker Positive for: obstructive sleep apnea and CPAP/BiPAP noncompliant. Negative for: asthma, COPD, pneumonia within 6 weeks, tobacco use and URI < 2 weeks. Cardiovascular: Positive for: CHF and hypertension (on rx) Negative for: anticoagulation therapy, arrhythmia, atrial fibrillation, CAD, chest pain, congenitalheart defect, DVT/PE, hyperlipidemia, recent MN, murmur/valvular heart disease, PVD, open heart surgery and valve surgery. GI: Positive for: GERD (on rx) and liver disease Negative for: abdominal pain, dysphagia, hepatitis, irritable bowel syndrome, inflammatory bowel disease, nausea, pancreatitis, vomiting and ETOH >2 drinks/day. : No history of dysuria, frequency or incontinence, stones or chronic kidney disease. No difficulty urinating, nocturia > 1 time per night or hematuria. 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 Endocrine: Positive for: hypothyroidism (on rx). Negative for: diabetes mellitus. Hematology: Positive for: chronic anti-coagulation/platelet meds. Patient is on anti- coagulation/platelet medication(s): Plavix. Negative for: anemia, bruises/bleeds easily and transfusion of at least 4 units within 72 hours prior to surgery. Oncology: See HPI. +BCC s/p excision +MBC to liver Psych: Positive for: anxiety (on rx) and depression (on rx). Musculoskeletal: Positive for: back pain (hx 2 back surgeries, rx as needed). Skin: Negative for lesions, rash and itching. PAST MEDICAL HISTORY Diagnosis Date Breast cancer (HCC) 2012 left Breast cancer (HCC) 04/2023 local recurrence on left GI bleed 2008 Hypertension Liver nodule TIA (transient ischemic attack) 2012 PAST SURGICAL HISTORY Procedure Laterality Date COLONOSCOPY every 5 yrs due to f/h colon cqan all normal per pt EGD GERD EGD 09/01/2020 Repeat in 2 years INSJ TUNNELED CTR VAD W/SUBQ PORT AGE 5 YR/> 09/29/2020 PAST SURGICAL HISTORY OF thyroid removal PAST SURGICAL HISTORY OF left breast 2 episodes of DCIS PAST SURGICAL HISTORY OF back surgeries times 2 FAMILY HISTORY Problem Relation Age of Onset Colon Cancer Mother mets to stomach Stroke Father at age 62 Breast Cancer Sister 85 Heart disease Paternal Grandmother CAD Social History Tobacco Use Smoking status: Former Years: 2 Types: Cigarettes Quit date: 09/16/1965 Years since quittin.2 Smokeless tobacco: Never Tobacco comments: Pt smoked 2-3 cigarettes daily x 2 years. Vaping Use Vaping Use: Never used Substance Use Topics Alcohol use: Yes Comment: moderate Drug use: No Prior to Admission medications as of 11/21/23 1339 Medication Sig Last Dose Taking D-MANNOSE ORAL Take 2 tablets by mouth once daily. Taking Yes HYDROcodone-acetaminophen (NORCO) 5-325 mg per tablet Take 1 tablet by mouth every 6 hours as needed for pain for up to 3 days. Taking Yes letrozole (FEMARA) 2.5 mg tablet Take 1 tablet by mouth once daily. Taking Yes Ascorbic Acid (VITAMIN C) 1,000 mg tablet Take 1,000 mg by mouth once daily. Taking Yes FLUoxetine (PROZAC) 40 mg capsule Take 1 capsule by mouth once daily. Taking Yes multivitamin tablet Take 1 tablet by mouth once daily. Taking Yes levothyroxine (SYNTHROID) 112 mcg tablet Take 112 mcg by mouth once daily. Taking Yes promethazine (PHENERGAN) 25 mg tablet Take 1 tablet by mouth every 6 hours as needed. FOR NAUSEA Taking Yes liothyronine (CYTOMEL) 5 mcg tablet Take 5 mcg by mouth once daily. Taking Yes lisinopril (ZESTRIL, PRINIVIL) 20 mg tablet Take 20 mg by mouth once daily. Taking Yes esomeprazole (NEXIUM) 40 mg capsule Take 40 mg by mouth DAILY (6 AM). Taking Yes ACETAMINOPHEN (TYLENOL ORAL) Take by mouth. Taking Yes zolpidem (AMBIEN) 10 mg tab Take 10 mg by mouth daily at bedtime. Taking Yes ALPRAZolam (XANAX) 0.5 mg tablet Take 0.5 mg by mouth at bedtime as needed. Taking Yes clopidogrel (PLAVIX) 75 mg tablet Take 75 mg by mouth once daily. Taking Yes No medication comments found. ALLERGIES Allergen Reactions Adhesive Tape-Silic* Rash Shellfish Derived Swelling Objective PHYSICAL EXAM: General: alert and oriented (x3) and healthy appearance. Pertinent negatives noted - not distressed. Skin: normal color, no rash or lesions. HEENT: EOM intact and pupils equal round. Pertinent negatives noted - no carotid bruit. Cardiovascular: regular rate and rhythm, normal S1 and S2, no rub, murmurs, or gallop. Respiratory: normal breath sounds, no wheezes or crackles. No chest wall deformity or tenderness. Abdomen: soft. Pertinent negatives noted - not tender. Extremities: no deformity, no edema or tenderness, no joint swelling or clubbing. Neurological: normal cognition and motor skills. Gait normal. No weakness or sensory deficit. PAIN ASSESSMENT: VITALS: BP 122/68 Pulse 78 Temp (Src) 98.1 (Temporal) Resp 14 Ht 5' 1" (1.55m) Wt 154 lb (69.9kg) SpO2 96% BMI 29.11 kg/(m^2). Diagnostic tests reviewed for today's visit: Lab Value Units Date High Low HB 11.7 g/dL 11/04/2023 15.5 11.5 HCT 35.0 % 11/04/2023 46.0 36.0 WBC 7.65 k/uL 11/04/2023 11.00 3.70 PLT 335 k/uL 11/04/2023 400 150 NA 133 mmol/L 11/04/2023 144 136 K 4.0 mmol/L 11/04/2023 5.1 3.7 GLUC 123 mg/dL 11/04/2023 99 74 BUN 16 mg/dL 11/04/2023 21 7 CREAT 0.68 mg/dL 11/04/2023 0.96 0.58 PTSEC No results within date range. INR No results within date range. APTT No results within date range. ALT 11 U/L 11/04/2023 38 7 AST 15 U/L 11/04/2023 35 13 TBILI 0.5 mg/dL 11/04/2023 1.3 0.2 TSH No results within date range. Lab Value Units Date High Low HCGQT No results within date range. UHCG No results within date range. HCG, BODY* No results within date range. Lab Value Units Date High Low ABORHD No results within date range. ABSCREEN No results within date range. No results found for: "HBA1C" Recent Results (from the past 8760 hour(s)) ECG COMPLETE Collection Time: 06/20/23 2:34 PM Result Value Ventricular Rate 64 Atrial Rate 64 P-R Interval 144 QRS Duration 88 QT Interval 426 QTC Calculation (Bazett) 439 Calculated P Mer[place] 34 Calculated R [place] 20 Calculated T [place] 9 Impression NORMAL SINUS RHYTHM NORMAL ECG Confirmed by MEENA MARTINEZ D.O. ([id number]) on 06/23/2023 2:31:08 PM Recent Results (from the past 15873 hour(s)) ECHO Collection Time: 11/04/23 10:35 AM Impression CONCLUSIONS: - Technically difficult exam due to body habitus and left mastectomy/seroma. - Exam indication: Baseline and serial evaluation in a patient undergoing therapy with cardiotoxic agents - The left ventricle is normal in size. Left ventricular systolic function is normal. EF = 60 5% (2D biplane) Grade I left ventricular diastolic dysfunction. - The right ventricle is normal in size. Right ventricular systolic function is normal. - Exam was compared with the prior echocardiographic exam performed on 04/18/2023, no significant change. * * * Final * * * Instructions Given to Patient: Instructions located in the after visit summary. Patient given verbal and written preop instructions and voices comprehension and compliance. SIGNATURE: Little George APRN.CNP PATIENT NAME: Danette Bishop DATE: November 21, 2023 TIME: 1:49 PM PAGER[facility]CONTACT #: [facility] History and physical note* Little George APRN.CNP - 11/21/2023 1:49 PM EDT HISTORY AND PHYSICAL EXAMINATION SERVICE DATE: 11/21/2023 SERVICE TIME: 2:11 PM PRIMARY CARE PHYSICIAN: Tami Chang MD Assessment Patient has the following medical conditions which may affect rhianna-operative course: Grade I diastolic dysfunction Assessment: EF 60% 10/2023 Recent Results (from the past 71042 hour(s)) ECHO Collection Time: 11/04/23 10:35 AM Impression CONCLUSIONS: - Technically difficult exam due to body habitus and left mastectomy/seroma. - Exam indication: Baseline and serial evaluation in a patient undergoing therapy with cardiotoxic agents - The left ventricle is normal in size. Left ventricular systolic function is normal. EF = 60 5% (2D biplane) Grade I left ventricular diastolic dysfunction. - The right ventricle is normal in size. Right ventricular systolic function is normal. - Exam was compared with the prior echocardiographic exam performed on 04/18/2023, no significant change. * * * Final * * * Sleep apnea Assessment: non-compliant with CPAP History of Posadas's esophagus Assessment: GERD, controlled on rx Hypothyroidism, unspecified Assessment: stable on rx BCC (basal cell carcinoma of skin) Assessment: s/p excision Chronic back pain Assessment: hx back surgeries x2, rx as needed Anxiety and depression Assessment: stable on rx per pt TIA (transient ischemic attack) Assessment: x3, daily Plavix, pt states PCP gave her instructions at last OV to hold 5 days prior to surgery pt confirmed. Stage IV breast cancer in female (HCC) Assessment: s/p a LEFT simple mastectomy for local control in the setting of stage IV diease on 06/28/2023. Final pathology reported IDC 1.6 cm with DCIS, Grade 3 (margins clear) LN not removed ER+MN+HER2+ Genetic testing negative She continues to have a recurrent - chronic LEFT mastectomy seroma Breast cancer hx: LEFT breast cancer in 2012, s/p lumpectomy, XRT. In 2020 diagnosed with metastatic breast cancer to her liver. Liver mass 3.2 cm. Imaging and biopsyshow a local recurrence LEFT breast cancer 1.7 cm mass with associated calcifications (span 4 cm) @1:00 position. S/p chemotherapy with a good clinical response in the liver. PET scan with continued update in the breast. [id number] - stage IV ER+MN+HER2+ Orr Activity Status Index: METS: Climb a flight of stairs or walk up a hill (5.50 METs) DASI Score: 5.5 Patient denies any chest pain or undue shortness of breath with the above physical activity. Clinical Frailty Scale: 3. Well, with treated comorbid disease STOP-Bang Score: Snores loudly Often feels tired, fatigued, or sleepy during the daytime Has been observed to stop breathing or choking/gasping during sleep Has or is being treated for high blood pressure Patient over 50 years old BMI less than or equal to 35 kg/m^2 Does not have a large neck Non-male patient STOP-Bang Score: 5 [id number] Score: Age: >=75 Sex: female CHF history: Yes Hypertension history: Yes Stroke/TIA/thromboembolism history: Yes Vascular disease history: No Diabetes history: No [id number] Score: 7 ARISCAT Score: Age: 51-80 Preoperative SpO2: >=96% Respiratory infection in the last month: No Preoperative anemia: No Surgical incision: peripheral Duration of surgery: <2 hrs Emergency procedure: No ARISCAT Score: 3 ANESTHESIA FINDINGS: Intubation History: No history of difficult intubation Significant Anesthesia Considerations: none Airway History: No history of difficult airway I - PHYSICAL EVALUATION AIRWAY Patient intubated: No. Tracheostomy tube not present Mallampati: II. TM distance: >3 FB. Neck ROM: limited flexion and extension. Mouth opening: adequate. Short neck: no. Thick neck: yes Singh present: no Lip Bite Test: I Microretrognathia/Micronagthia/Recessed Chin: No DENTAL Dentures, upper: complete. Dentures, lower: complete. II - ANESTHESIA PLAN Anesthetic Plan: other Beta Javi Monitoring Plan Post Procedure Analgesic Plan Informed Consent Anesthetic risks, benefits, alternatives, personnel and consent discussed: yes. Patient / Responsible Republican agrees to proceed: yes Patient / Surrogate agrees to blood products: blood products not planned Discussed the possibility of lip / dental damage: yes Prepared for Surgery: optimally prepared for surgery. CONSULTS: Patient does not require consults for optimization at this time Planned Anesthetic: other anesthesia choice The Following Tests/Procedures Have Been Initiated: No orders of the defined types were placed in this encounter. REASON FOR VISIT: Danette Bishop is a 78 year old female who is scheduled for Procedure(s): INCISION & DRAINAGE OF SEROMA (Left) REVISION SCAR BREAST > 4.0CM (Left) at the request of Dr. Freda Matos for consultation. My final recommendation will be communicated back to the requesting physician by way of shared medical record or letter. 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) Sleep Apnea History of Posadas's Esophagus Hypothyroidism, Unspecified Tia (Transient Ischemic Attack) Grade I Diastolic Dysfunction Anxiety and Depression Bcc (Basal Cell Carcinoma of Skin) Chronic Back Pain Carcinoma of Left Breast, Stage 4 (Hcc) Seroma of Breast COVID-19 Immunization Status Overdue - Covid-19 Vaccine ( season) Overdue since 07/13/2023 03/12/2023 Imm Admin: COVID-19 vaccine, age 12+ yr, season (MODERNA) 02/19/2022 Imm Admin: COVID-19 vaccine, age 12+ yr, bivalent (MODERNA) 07/30/2021 Imm Admin: COVID-19 original vaccine, full dose, monovalent (MODERNA) Only the first 3 history entries have been loaded, but more history exists. CHIEF COMPLAINT: Pre-op exam HPI: Danette Bishop is a 78 year old seen for PAC due to scheduled above surgery because h/o breast cancer/seroma. 11/09/2023, Dr. Freda Matos HISTORY of PRESENT ILLNESS: Danette Bishop, 78 year old year old female, s/p a LEFT simple mastectomy for local control in the setting of stage IV diease on 06/28/2023. Final pathology reported IDC 1.6 cm with DCIS, Grade 3 (margins clear) LN not removed ER+MN+HER2+ Genetic testing negative She continues to have a recurrent - chronic LEFT mastectomy seroma Breast cancer hx: LEFT breast cancer in 2012, s/p lumpectomy, XRT. In 2020 diagnosed with metastatic breast cancer to her liver. Liver mass 3.2 cm. Imaging and biopsyshow a local recurrence LEFT breast cancer 1.7 cm mass with associated calcifications (span 4 cm) @1:00 position. S/p chemotherapy with a good clinical response in the liver. PET scan with continued update in the breast. [id number] - stage IV ER+MN+HER2+ Past medical history significant for hypertension, stroke (x2; not on ASA because of h/o bleeding ulcer), on plavix anticoagulation She states she needs something done for this chronic recurrent seroma We discussed surgery to remove the seroma capsule, excess skin and re-place a drain. She would like to proceed with surgery. Will need perioperative management of her Plavix REVIEW OF SYSTEMS: General: No weight loss, malaise or fevers. Neurological: Positive for: headaches and TIA (x3, Plavix). Negative for: cerebral palsy, delirium, dementia, multiple sclerosis, Parkinson's disease, peripheral neuropathy, seizures and strokes. Respiratory: +former smoker Positive for: obstructive sleep apnea and CPAP/BiPAP noncompliant. Negative for: asthma, COPD, pneumonia within 6 weeks, tobacco use and URI < 2 weeks. Cardiovascular: Positive for: CHF and hypertension (on rx) Negative for: anticoagulation therapy, arrhythmia, atrial fibrillation, CAD, chest pain, congenitalheart defect, DVT/PE, hyperlipidemia, recent MN, murmur/valvular heart disease, PVD, open heart surgery and valve surgery. GI: Positive for: GERD (on rx) and liver disease Negative for: abdominal pain, dysphagia, hepatitis, irritable bowel syndrome, inflammatory bowel disease, nausea, pancreatitis, vomiting and ETOH >2 drinks/day. : No history of dysuria, frequency or incontinence, stones or chronic kidney disease. No difficulty urinating, nocturia > 1 time per night or hematuria. 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 Endocrine: Positive for: hypothyroidism (on rx). Negative for: diabetes mellitus. Hematology: Positive for: chronic anti-coagulation/platelet meds. Patient is on anti- coagulation/platelet medication(s): Plavix. Negative for: anemia, bruises/bleeds easily and transfusion of at least 4 units within 72 hours prior to surgery. Oncology: See HPI. +BCC s/p excision +MBC to liver Psych: Positive for: anxiety (on rx) and depression (on rx). Musculoskeletal: Positive for: back pain (hx 2 back surgeries, rx as needed). Skin: Negative for lesions, rash and itching. PAST MEDICAL HISTORY Diagnosis Date Breast cancer (HCC) 2012 left Breast cancer (HCC) 04/2023 local recurrence on left GI bleed 2008 Hypertension Liver nodule TIA (transient ischemic attack) 2012 PAST SURGICAL HISTORY Procedure Laterality Date COLONOSCOPY every 5 yrs due to f/h colon cqan all normal per pt EGD GERD EGD 09/01/2020 Repeat in 2 years INSJ TUNNELED CTR VAD W/SUBQ PORT AGE 5 YR/> 09/29/2020 PAST SURGICAL HISTORY OF thyroid removal PAST SURGICAL HISTORY OF left breast 2 episodes of DCIS PAST SURGICAL HISTORY OF back surgeries times 2 FAMILY HISTORY Problem Relation Age of Onset Colon Cancer Mother mets to stomach Stroke Father at age 62 Breast Cancer Sister 85 Heart disease Paternal Grandmother CAD Social History Tobacco Use Smoking status: Former Years: 2 Types: Cigarettes Quit date: 09/16/1965 Years since quittin.2 Smokeless tobacco: Never Tobacco comments: Pt smoked 2-3 cigarettes daily x 2 years. Vaping Use Vaping Use: Never used Substance Use Topics Alcohol use: Yes Comment: moderate Drug use: No Prior to Admission medications as of 11/21/23 1339 Medication Sig Last Dose Taking D-MANNOSE ORAL Take 2 tablets by mouth once daily. Taking Yes HYDROcodone-acetaminophen (NORCO) 5-325 mg per tablet Take 1 tablet by mouth every 6 hours as needed for pain for up to 3 days. Taking Yes letrozole (FEMARA) 2.5 mg tablet Take 1 tablet by mouth once daily. Taking Yes Ascorbic Acid (VITAMIN C) 1,000 mg tablet Take 1,000 mg by mouth once daily. Taking Yes FLUoxetine (PROZAC) 40 mg capsule Take 1 capsule by mouth once daily. Taking Yes multivitamin tablet Take 1 tablet by mouth once daily. Taking Yes levothyroxine (SYNTHROID) 112 mcg tablet Take 112 mcg by mouth once daily. Taking Yes promethazine (PHENERGAN) 25 mg tablet Take 1 tablet by mouth every 6 hours as needed. FOR NAUSEA Taking Yes liothyronine (CYTOMEL) 5 mcg tablet Take 5 mcg by mouth once daily. Taking Yes lisinopril (ZESTRIL, PRINIVIL) 20 mg tablet Take 20 mg by mouth once daily. Taking Yes esomeprazole (NEXIUM) 40 mg capsule Take 40 mg by mouth DAILY (6 AM). Taking Yes ACETAMINOPHEN (TYLENOL ORAL) Take by mouth. Taking Yes zolpidem (AMBIEN) 10 mg tab Take 10 mg by mouth daily at bedtime. Taking Yes ALPRAZolam (XANAX) 0.5 mg tablet Take 0.5 mg by mouth at bedtime as needed. Taking Yes clopidogrel (PLAVIX) 75 mg tablet Take 75 mg by mouth once daily. Taking Yes No medication comments found. ALLERGIES Allergen Reactions Adhesive Tape-Silic* Rash Shellfish Derived Swelling Objective PHYSICAL EXAM: General: alert and oriented (x3) and healthy appearance. Pertinent negatives noted - not distressed. Skin: normal color, no rash or lesions. HEENT: EOM intact and pupils equal round. Pertinent negatives noted - no carotid bruit. Cardiovascular: regular rate and rhythm, normal S1 and S2, no rub, murmurs, or gallop. Respiratory: normal breath sounds, no wheezes or crackles. No chest wall deformity or tenderness. Abdomen: soft. Pertinent negatives noted - not tender. Extremities: no deformity, no edema or tenderness, no joint swelling or clubbing. Neurological: normal cognition and motor skills. Gait normal. No weakness or sensory deficit. PAIN ASSESSMENT: VITALS: BP 122/68 Pulse 78 Temp (Src) 98.1 (Temporal) Resp 14 Ht 5' 1" (1.55m) Wt 154 lb (69.9kg) SpO2 96% BMI 29.11 kg/(m^2). Diagnostic tests reviewed for today's visit: Lab Value Units Date High Low HB 11.7 g/dL 11/04/2023 15.5 11.5 HCT 35.0 % 11/04/2023 46.0 36.0 WBC 7.65 k/uL 11/04/2023 11.00 3.70 PLT 335 k/uL 11/04/2023 400 150 NA 133 mmol/L 11/04/2023 144 136 K 4.0 mmol/L 11/04/2023 5.1 3.7 GLUC 123 mg/dL 11/04/2023 99 74 BUN 16 mg/dL 11/04/2023 21 7 CREAT 0.68 mg/dL 11/04/2023 0.96 0.58 PTSEC No results within date range. INR No results within date range. APTT No results within date range. ALT 11 U/L 11/04/2023 38 7 AST 15 U/L 11/04/2023 35 13 TBILI 0.5 mg/dL 11/04/2023 1.3 0.2 TSH No results within date range. Lab Value Units Date High Low HCGQT No results within date range. UHCG No results within date range. HCG, BODY* No results within date range. Lab Value Units Date High Low ABORHD No results within date range. ABSCREEN No results within date range. No results found for: "HBA1C" Recent Results (from the past 8760 hour(s)) ECG COMPLETE Collection Time: 06/20/23 2:34 PM Result Value Ventricular Rate 64 Atrial Rate 64 P-R Interval 144 QRS Duration 88 QT Interval 426 QTC Calculation (Bazett) 439 Calculated P [place] 34 Calculated R [place] 20 Calculated T [place] 9 Impression NORMAL SINUS RHYTHM NORMAL ECG Confirmed by MEENA MARTINEZ D.O. ([id number]) on 06/23/2023 2:31:08 PM Recent Results (from the past 81035 hour(s)) ECHO Collection Time: 11/04/23 10:35 AM Impression CONCLUSIONS: - Technically difficult exam due to body habitus and left mastectomy/seroma. - Exam indication: Baseline and serial evaluation in a patient undergoing therapy with cardiotoxic agents - The left ventricle is normal in size. Left ventricular systolic function is normal. EF = 60 5% (2D biplane) Grade I left ventricular diastolic dysfunction. - The right ventricle is normal in size. Right ventricular systolic function is normal. - Exam was compared with the prior echocardiographic exam performed on 04/18/2023, no significant change. * * * Final * * * Instructions Given to Patient: Instructions located in the after visit summary. Patient given verbal and written preop instructions and voices comprehension and compliance. SIGNATURE: [place] APRN.CNP PATIENT NAME: Danette Bishop DATE: November 21, 2023 TIME: 1:49 PM PAGER/CONTACT #: documented in this encounter[facility] Telephone encounter Note * Telephone Encounter - Sandra Zabala - 11/18/2023 9:11 AM EDT [facility] Fax [phone] Would like the pre op paperwork faxed over so they have it for patients appointment with them. [facility] Miscellaneous Notes* Telephone Encounter - Sandra Zabala - 11/18/2023 9:11 AM EDT [facility] Fax [phone] Would like the pre op paperwork faxed over so they have it for patients appointment with them. documented in this encounterFort [facility]06-13-[facility]24 History of Present illness Narrative* Natalie Leggett RDMS - 11/17/2023 10:45 AM EDT Radiology Service Progress Note PATIENT NAME: Danette Bishop DATE OF SERVICE: November 17, 2023 TIME: 1:34 PM PATIENT IDENTITY VERIFICATION COMPLETED USING TWO (2) IDENTIFIERS: Name and Date of confirmedby patient verbally. FALL SCREENING: Has the patient had 2 falls in the last year or 1 fall with injury or currently using an Ambulatory Assistive Device (Walker, Cane, Wheelchair, Crutches, etc.)? No PATIENT GENDER DATA: Female. status: : No status: NO. PATIENT RELEVANT IMPLANT DATA REVIEWED: Not Applicable PATIENT PRESENTS WITH AN IMPLANTABLE OR ATTACHED GARNETTER: No RADIOLOGY DEPARTMENT: Ultrasound PERIPHERAL IV DATA: Not applicable SIGNED BY: Natalie Leggett RDMS T November 17, 2023 1:34 PM documented in this encounterFort [facility]06-07-[facility] Telephone encounter Note * Telephone Encounter - Alta Gibson - 11/11/2023 8:25 AM EDT Pt scheduled as directed. Alta Sosa [facility] Miscellaneous Notes* Telephone Encounter - Alta Gibson - 11/11/2023 8:25 AM EDT Pt scheduled as directed. Alta Sosa * Telephone Encounter - Amy Grace LPN - 11/10/2023 3:45 PM EDT PSS- please contact patient to schedule an US liver. She is aware. Amy Grace LPN documented in this encounterFort [facility]06-06-[facility]24 Telephone encounter Note * Telephone Encounter - Amy Grace LPN - 11/10/2023 3:45 PM EDT PSS- please contact patient to schedule an US liver. She is aware. Amy Grace LPN [facility] Telephone encounter Note* Telephone Encounter - Kelly Arellano - 11/09/2023 3:32 PM EDT Spoke to patient, confirmed her surgery date and appointments related to her procedure with Dr. Matos on 12/05 . [facility] Miscellaneous Notes* Telephone Encounter - Kelly Arellano - 11/09/2023 3:32 PM EDT Spoke to patient, confirmed her surgery date and appointments related to her procedure with Dr. Matos on 12/05 . documented in this encounterFort [facility]06-[facility] History of Present illness Narrative* Freda Matos DO - 11/09/2023 9:00 AM EDT REASON FOR TODAY'S VISIT: Patient presents with: Post Op Phone call visit HISTORY of PRESENT ILLNESS: Danette Bishop, 78 year old year old female, s/p a LEFT simple mastectomy for local control in the setting of stage IV diease on 06/28/2023. Final pathology reported IDC 1.6 cm with DCIS, Grade 3 (margins clear) LN not removed ER+MN+HER2+ Genetic testing negative She continues to have a recurrent - chronic LEFT mastectomy seroma Breast cancer hx: LEFT breast cancer in 2012, s/p lumpectomy, XRT. In 2020 diagnosed with metastatic breast cancer to her liver. Liver mass 3.2 cm. Imaging and biopsyshow a local recurrence LEFT breast cancer 1.7 cm mass with associated calcifications (span 4 cm) @1:00 position. S/p chemotherapy with a good clinical response in the liver. PET scan with continued update in the breast. [id number] - stage IV ER+MN+HER2+ Past medical history significant for hypertension, stroke (x2; not on ASA because of h/o bleeding ulcer), on plavix anticoagulation She states she needs something done for this chronic recurrent seroma We discussed surgery to remove the seroma capsule, excess skin and re-place a drain. She would like to proceed with surgery. Will need perioperative management of her Plavix PLAN:. The risks of surgery were discussed with her including bleeding, hematoma, infection, skin necrosis, possible seroma recurrence and possible need for additional surgery. She acknowledges these risks and agrees to proceed. Consent was agreed for: LEFT breast seroma removal and mastectomy revision with drain placement A tentative surgical date for 12/06/23 was given at She has our names and numbers to stay in touch if she has any questions, concerns or problems in the interim. Freda Matos DO Breast Surgeon cc: Dr. Taryn Chang MD ([place]) [address] [place] [address] documented in this encounterFort [facility] Hospital06-02-2024 Progress note* Result Encounter Note - Christiano Centeno DO - 11/06/2023 11:25 AM EDT Echo normal heart pumping strength. [facility] Miscellaneous Notes* Result Encounter Note - Christiano Centeno DO - 11/06/2023 11:25 AM EDT Echo normal heart pumping strength. documented in this encounterFort [facility]05-21-2024 Telephone encounter Note * Telephone Encounter - Amy Grace LPN - 10/25/2023 1:14 PM EDT PSS- please contact patient to schedule echo. Amy Grace LPN [facility] Miscellaneous Notes* Telephone Encounter - Amy Grace LPN - 10/25/2023 1:14 PM EDT PSS- please contact patient to schedule echo. Amy Grace LPN * Addendum Note - Christiano Centeno DO - 10/25/2023 1:10 PM EDTAddended by: CHRISTIANO CENTENO on: 10/25/2023 01:10 PM Modules accepted: Orders * Telephone Encounter - Christiano Centeno DO - 10/25/2023 1:10 PM EDT Thank you. I spoke with Hayley. She said the seroma should not pose too much problem doing the echo. * Addendum Note - Amy Grace LPN - 10/25/2023 11:12 AM EDTAddended by: AMY GRACE on: 10/25/2023 11:12 AM Modules accepted: Orders * Telephone Encounter - Amy Grace LPN - 10/25/2023 11:12 AM EDT Did you want an echo now or once seroma is resolved? Amy Grace LPN * Telephone Encounter - Carmen Sims LPN - 10/24/2023 7:59 AM EDT ----- Message from Christiano Centeno DO sent at 10/23/2023 11:18 AM EDT ----- MRI brain shows no sign of cancer. Just old change from previous stroke. Touch base with PCP if HAscontinue. documented in this encounterFort [facility]05-21-2024 Note* Addendum Note - Christiano Centeno DO - 10/25/2023 1:10 PM EDTAddended by: CHRISTIANO CENTENO on: 10/25/2023 01:10 PM Modules accepted: Orders [facility] Telephone encounter Note* Telephone Encounter - Christiano Centeno DO - 10/25/2023 1:10 PM EDT Thank you. I spoke with Hayley. She said the seroma should not pose too much problem doing the echo. [facility] Note* Addendum Note - Amy Grace LPN - 10/25/2023 11:12 AM EDTAddended by: AMY GRACE on: 10/25/2023 11:12 AM Modules accepted: Orders [facility] Telephone encounter Note* Telephone Encounter - Amy Grace LPN - 10/25/2023 11:12 AM EDT Did you want an echo now or once seroma is resolved? Amy Grace LPN [facility] Telephone encounter Note* Telephone Encounter - Carmen Sims LPN - 10/24/2023 7:59 AM EDT ----- Message from Christiano Centeno DO sent at 10/23/2023 11:18 AM EDT ----- MRI brain shows no sign of cancer. Just old change from previous stroke. Touch base with PCP if HAscontinue. [facility] History of Present illness Narrative* Eveline Gaitan RT(R) - 10/20/2023 10:40 AM EDT Radiology Service Progress Note PATIENT NAME: Danette Bishop DATE OF SERVICE: October 20, 2023 TIME: 10:47 AM PATIENT IDENTITY VERIFICATION COMPLETED USING TWO (2) IDENTIFIERS: Name and Date of confirmedby patient verbally. FALL SCREENING: Has the patient had 2 falls in the last year or 1 fall with injury or currently using an Ambulatory Assistive Device (Walker, Cane, Wheelchair, Crutches, etc.)? No PATIENT GENDER DATA: Female. status: : No status: NO. PATIENT RELEVANT IMPLANT DATA REVIEWED: Yes PATIENT PRESENTS WITH AN IMPLANTABLE OR ATTACHED GARNETTER: No RADIOLOGY DEPARTMENT: MR; Exam(s) Completed: Head: Routine Brain PERIPHERAL IV DATA: Site assessment: Clean,Dry and Intact, Site disposition Discontinued SIGNED BY: Eveline Gaitan RT(R) October 20, 2023 10:47 AM documented in this encounterFort [facility]05-10-2024 History of Present illness Narrative* Basia Tompkins RN - 10/14/2023 2:12 PM EDT Pt stated no changes to assessment from OV on 10/11/23. Basia Tompkins RN documented in this encounterFort [facility] Hospital05-10-2024 History of Present illness Narrative* Freda Matos DO - 10/14/2023 9:30 AM EDT HPI: Danette Bishop, 78 year old year old female, s/p a LEFT simple mastectomy for local control in the setting of stage IV diease on 06/28/2023. 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 In 2020 diagnosed with metastatic breast cancer to her liver. Liver mass 3.2 cm. Imaging and biopsyshow a local recurrence LEFT breast cancer 1.7 cm mass with associated calcifications (span 4 cm) @1:00 position. S/p chemotherapy with a good clinical response in the liver. PET scan with continued update in the breast. [id number] - stage IV ER+MN+HER2+ past medical history significant for hypertension, stroke (x2; not on ASA because of h/o bleeding ulcer), on plavix anticoagulation HISTORY She had LEFT chest wall area seroma drained on 08/10, 08/21, 09/05/2023 and most recently, on 09/19/2023,in which 100 cc of fluid was aspirated. She has a chronic recurrent post-op seroma in a prior irradiated breast She admits she does not wear the ADRIÁN wrap for long due to irritation EXAMINATION: LEFT mastectomy incisional line is healed .There is a seroma present in the mastectomy site - probable 100cc. This is soft, no sings of hematoma or infection No signs of irration or lymphedema IMPRESSION: LEFT breast chronic/recurrent post-op seroma This does not bother her and she states she got fitted for a prosthetic yesterday without any issues PLAN: Reviewed that this is a persistent seroma and repeat aspiration at this time likely will yield in arepeat seroma reformation Discussed that is is not necessary to keep aspirating the seroma. Repeat aspiration can result in infection or hematoma (on anticoagulation) Would like to see if this resolves on its own. Could place drain for a few weeks which may or may not resolve the seroma Could inject sclerosing agent to see if this could decrease seroma Could go to surgery to sclerose the cavity and place quilting sutures. I would favor observation - as this is not bothersome to her. Discussed if this become bothersome or changes - we could revisit any of these options. She still expresses desire for a right prophylactic mastectomy for symmetry. We reviewed her mastectomy was for local disease control and that she is on current active treatment for stage 4 disease. She states she is okay with observation. Her is in agreement with this plan She will call if the seroma becomes symptomatic and needs drainage. She has our names and numbers to stay in touch if there are any questions, concerns or problems. Continue with AI and Herceptin wit Dr Taryn Matos DO Breast Surgeon Cc: Dr. Centeno documented in this encounterFort [facility]05-10-2024 NoteHNO ID: [id number] Author: FREDA MATOS DO Service: ? Author Type: Physician Type: Progress Notes Filed: 10/14/2023 12:31 Note Text: HPI: Danette Bishop, 78 year old year old female, s/p a LEFT simple mastectomy for local control in the setting of stage IV diease on 06/28/2023. 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 In 2020 diagnosed with metastatic breast cancer to her liver. Liver mass 3.2 cm. Imaging and biopsy show a local recurrence LEFT breast cancer 1.7 cm mass with associated calcifications (span 4 cm) @ 1:00 position. S/p chemotherapy with a good clinical response in the liver. PET scan with continued update in the breast. [id number] - stage IV ER+MN+HER2+ past medical history significant for hypertension, stroke (x2; not on ASA because of h/o bleeding ulcer), on plavix anticoagulation HISTORY She had LEFT chest wall area seroma drained on 08/10, 08/21, 09/05/2023 and most recently, on 09/19/2023, in which 100 cc of fluid was aspirated. She has a chronic recurrent post-op seroma in a prior irradiated breast She admits she does not wear the ADRIÁN wrap for long due to irritation EXAMINATION: LEFT mastectomy incisional line is healed .There is a seroma present in the mastectomy site - probable 100cc. This is soft, no sings of hematoma or infection No signs of irration or lymphedema IMPRESSION: LEFT breast chronic/recurrent post-op seroma This does not bother her and she states she got fitted for a prosthetic yesterday without any issues PLAN: Reviewed that this is a persistent seroma and repeat aspiration at this time likely will yield in a repeat seroma reformation Discussed that is is not necessary to keep aspirating the seroma. Repeat aspiration can result in infection or hematoma (on anticoagulation) Would like to see if this resolves on its own. Could place drain for a few weeks which may or may not resolve the seroma Could inject sclerosing agent to see if this could decrease seroma Could go to surgery to sclerose the cavity and place quilting sutures. I would favor observation - as this is not bothersome to her. Discussed if this become bothersome or changes - we could revisit any of these options. She still expresses desire for a right prophylactic mastectomy for symmetry. We reviewed her mastectomy was for local disease control and that she is on current active treatment for stage 4 disease. She states she is okay with observation. Her is in agreement with this plan She will call if the seroma becomes symptomatic and needs drainage. She has our names and numbers to stay in touch if there are any questions, concerns or problems. Continue with AI and Herceptin wit Dr Taryn Matos, DO Breast Surgeon Cc: Dr. HoneycuttRome Memorial [id number] Nurse Note* Kelly Aguayo LPN - 10/14/2023 9:17 AM EDT Seroma check Last mammogram on: 03/16/23 bilateral Results: see report Is the patient active on [employer] Yes Electronically Signed By: Kelly Aguayo LPN In Department: GENERAL SURGERY REVIEW OF PATIENT HISTORY: OB History T2 L1 SAB0 IAB0 Ectopic0 Multiple0 Live Births0 Comment: .Menarche: 12; Age at 1st : 25; Post menopausal FAMILY HISTORY Problem Relation Age of Onset Colon Cancer Mother mets to stomach Stroke Father at age 62 Breast Cancer Sister 85 Heart disease Paternal Grandmother CAD PAST MEDICAL HISTORY Diagnosis Date Breast cancer (HCC) 2012 left Breast cancer (HCC) 04/2023 local recurrence on left GI bleed 2008 Hypertension Liver nodule TIA (transient ischemic attack) 2012 PAST SURGICAL HISTORY Procedure Laterality Date COLONOSCOPY every 5 yrs due to f/h colon cqan all normal per pt EGD GERD EGD 09/01/2020 Repeat in 2 years INSJ TUNNELED CTR VAD W/SUBQ PORT AGE 5 YR/> 09/29/2020 PAST SURGICAL HISTORY OF thyroid removal PAST SURGICAL HISTORY OF left breast 2 episodes of DCIS PAST SURGICAL HISTORY OF back surgeries times 2 Social History Tobacco Use Smoking status: Former Years: 2 Types: Cigarettes Quit date: 09/16/1965 Years since quittin.1 Smokeless tobacco: Never Tobacco comments: Pt smoked 2-3 cigarettes daily x 2 years. Vaping Use Vaping Use: Never used Substance Use Topics Alcohol use: Yes Comment: moderate Drug use: No [facility] Note* Kelly Aguayo LPN - 10/14/2023 9:17 AM EDT Seroma check Last mammogram on: 03/16/23 bilateral Results: see report Is the patient active on nap- Naturally Attached Parentst Yes Electronically Signed By: Kelly Aguayo LPN In Department: GENERAL SURGERY REVIEW OF PATIENT HISTORY: OB History T2 L1 SAB0 IAB0 Ectopic0 Multiple0 Live Births0 Comment: .Menarche: 12; Age at 1st : 25; Post menopausal FAMILY HISTORY Problem Relation Age of Onset Colon Cancer Mother mets to stomach Stroke Father at age 62 Breast Cancer Sister 85 Heart disease Paternal Grandmother CAD PAST MEDICAL HISTORY Diagnosis Date Breast cancer (HCC) 2012 left Breast cancer (HCC) 04/2023 local recurrence on left GI bleed 2008 Hypertension Liver nodule TIA (transient ischemic attack) 2012 PAST SURGICAL HISTORY Procedure Laterality Date COLONOSCOPY every 5 yrs due to f/h colon cqan all normal per pt EGD GERD EGD 09/01/2020 Repeat in 2 years INSJ TUNNELED CTR VAD W/SUBQ PORT AGE 5 YR/> 09/29/2020 PAST SURGICAL HISTORY OF thyroid removal PAST SURGICAL HISTORY OF left breast 2 episodes of DCIS PAST SURGICAL HISTORY OF back surgeries times 2 Social History Tobacco Use Smoking status: Former Years: 2 Types: Cigarettes Quit date: 09/16/1965 Years since quittin.1 Smokeless tobacco: Never Tobacco comments: Pt smoked 2-3 cigarettes daily x 2 years. Vaping Use Vaping Use: Never used Substance Use Topics Alcohol use: Yes Comment: moderate Drug use: No documented in this encounter[facility]05-[facility] History of Present illness Narrative* Christiano Centeno DO - 10/11/2023 11:14 AM EDT Oncologic problem(s): 1) Metastatic ER-positive, HER2 positive breast cancer. HPI: The patient is a 78-year-old female with past medical history significant for hypertension, stroke (x2; not on ASA because of h/o bleeding ulcer) and DCIS. Treated for left sided DCIS with lumpectomy and radiation when living in [place] in 2012. Started on tamoxifen but had negative side effects then sounds like she was tried on an aromatase inhibitor but have musculoskeletal side effects and then stopped treatment. Had been getting routine mammography in [place] until 2013. Since has been getting mammogram at [facility]. Most recent was on 12/28/2019. Scattered benign calcifications were observed. There were no dense spiculated masses or suspicious microcalcifications identified. Fairly stable architectural distortion in the left breast with previous surgery. No skin thickening or retraction. Significant change from previous mammogram on 12/05/2018. She developed abdominal pain in July 2020. Initially had an ultrasound on 07/08/2020 that demonstrated a 2.7 x 3.2 x 2.6 cm hypoechoic solid nodule in the right lobe of liver. MRI Liver 08/08/2020: Liver: Multiple solid masses in the right lobe of the liver. Largest of these is seen within the peripheral right lobe of the liver and measures 2.5 x 2.5 cm. Biliary tract: The common bile duct is normal in course and caliber. No filling defect is identified within the common duct. Gallbladder: Unremarkable Pancreatic duct: 7 mm T2 bright lesion involving the pancreatic tail. No dilatation of the pancreatic duct. Spleen: No lesion is identified. Pancreas: The pancreas enhances normally and is without focal lesions. Adrenal glands: No mass is identified Kidneys: Simple appearing cortical cysts involving both kidneys. No hydronephrosis. Possible lesion involving the T6 vertebral body. Postsurgical change involving the left breast. No adenopathy is identified. Imaged lung bases are clear. No pericardial effusion or pericardial thickening. CT of chest, abdomen pelvis revealed no thoracic lymphadenopathy. There was a nonspecific scleroticdensity in the vertebral body of T6. Scarring was noted in the left breast. No pulmonary nodules. CT of the abdomen pelvis reveals scattered hepatic masses favoring metastatic disease. There is left lateral abdominal wall hernia containing nondilated descending colon. Biopsy one of the right lobe of the liver lesions performed on 08/21/2020. Pathology: Metastatic adenocarcinoma with prominent mucinous features. Tumor cells were positive for CK7 and GATA3 and negative for CK20, TTF-1 and Napsin a. ER staining showed weak positivity in approximately 10 to 20% of cells. MN was negative with 0% staining. HER-2 was positive at 3+ on immunohistochemistry stain. 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 Her most recent EGDwas in 2018. That study was done to evaluate epigastric spasms. It was performed by Dr. Rahman with the GI group in [place]. Pathology on the biopsy specimen report was not available but patient said her symptoms stopped when she changed from omeprazole to ease omeprazole. She did not have dysphagia. No odynophagia. No heartburn per se. She denied nausea. She has IBS mostly manifested as constipation. She has chronic intermittent left upper quadrant pain that she attributes to gas. No signs of GI bleeding. Patient lost a son to suicide on July 2020. Underwent EGD on 09/01/2020. Esophageal mucosal changes secondary to established short segment Posadas's disease was present in the lower third esophagus. The maximal longitudinal extent of these changes was 6 mm in length. Biopsies were obtained with cold forceps for histology. The entire examined stomach and duodenum were normal. Pathology: Esophagus, distal, biopsy Cardio-oxyntic mucosa with no diagnostic abnormality. - Negative for intestinal metaplasia. Ultrasound left breast on 09/02/2020 identified a 1.7 x 0.9 x 0.6 cm lobulated mass in the left breast at 1:00 anterior depth. It was hypoechoic and correlated with the mammography findings. It was adjacent to the surgical scar. She was referred for and underwent biopsy on 09/09/2020. Pathology: A. Left breast, needle core biopsy: - Invasive ductal carcinoma with mucinous features, provisional histologic grade 2 (see comment). Estrogen Receptor (ER) Positive (40%) Stain intensity: Moderate to strong Progesterone Receptor (PgR) Positive (1-5%) Stain intensity: Weak HER2 (ERBB2) IMMUNOHISTOCHEMISTRY ASSAY Interpretation: POSITIVE for HER2 (ERBB2) Expression Score: 3+ Whole body bone scan 09/04/2020: Whole body bone scan and spot images demonstrate moderately increased uptake at T12-L1, L4-5 and left L5 facet, corresponding to moderate degenerative change of the thoracolumbar spine and postsurgical change of L4-5 interbody fusion and pedicle alla and screws fixation of the left L4-5 on the abdomen and pelvic CT. Specifically, no abnormally increased or decreased uptake is identified in the mid thoracic spine to correspond to 1.4 cm T6 sclerotic lesion on recent chest CT. There is increased uptake involving both shoulders, sternoclavicular joints, left upper cervical spine, hips, knees, and ankles in a pattern most compatible with degenerative/arthritic disease. If clinically indicated, correlation with radiographs could be obtained at clinical discretion. No other areas of abnormal focal, regional or segmental osseous uptake are seen to suggest the presence of osseous metastatic lesions. INDETERMINATE 1.4 CM T6 SCLEROTIC LESION WITHOUT ASSOCIATED ABNORMAL TRACER UPTAKE IDENTIFIED. MRI thoracic spine 10/02/2020: IMPRESSION: T6 sclerotic focus. Given the lack of activity on the recent bone scan, this is most likely not an active metastatic lesion and may reflect a bone island. No evidence of metastatic disease to the thoracic vertebral bodies. Numerous hepatic metastatic lesions have been evaluated with CT recently. Previous therapy: 1) Docetaxel, pertuzumab and trastuzumab. 2) Trastuzumab and Pertuzumab. Current therapy: 1) Trastuzumab (Ontruzant). 2) Letrozole. Began 03/2021. Underwent left-sided simple mastectomy on 06/28/2023. 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 - Microcalcifications in invasive carcinoma, DCIS, changes consistent with prior procedure, and au of blood vessels. - Biopsy site changes, biopsy clip (x1), and changes consistent with prior procedure identified. [facility] 07/01/23 Diagnosis Comment Histologic sections of the grossly-identified 16 mm x 16 mm tumor bed demonstrates residual invasive and in-situ carcinoma. Tumor bed dimension #1: 16 mm Tumor bed dimension #2: 16 mm Invasive tumor cellularity: 50% Ductal carcinoma in situ cellularity: 5% SPECIMEN Procedure Total mastectomy Specimen Laterality Left TUMOR Histologic Type Invasive carcinoma of no special type (ductal) Histologic Grade ([place] Histologic Score) Glandular (Acinar) / Tubular Differentiation Score 3 Nuclear Pleomorphism Score 3 Mitotic Rate Score 3 Overall Grade Grade 3 (scores of 8 or 9) Tumor Size Greatest dimension of largest invasive focus (Millimeters): 16 mm Tumor Focality Single focus of invasive carcinoma Ductal Carcinoma In Situ (DCIS) Present Size (Extent) of DCIS Estimated size (extent) of DCIS is at least (Millimeters): 4 mm Architectural Patterns Solid Nuclear Grade Grade III (high) Necrosis Present, central (expansive "comedo" necrosis) Lobular Carcinoma In Situ (LCIS) Not identified Lymphatic and / or Vascular Invasion Not identified Dermal Lymphatic and / or Vascular Invasion Not identified Microcalcifications Present in DCIS Present in invasive carcinoma Present in non-neoplastic tissue Treatment Effect in the Breast Probable or definite response to presurgical therapy in the invasivecarcinoma MARGINS Margin Status for Invasive Carcinoma All margins negative for invasive carcinoma Distance from Invasive Carcinoma to Closest Margin Greater than: 2 mm Margin Status for DCIS All margins negative for DCIS Distance from DCIS to Closest Margin Greater than: 2 mm REGIONAL LYMPH NODES Regional Lymph Node Status Not applicable (no regional lymph nodes submitted or found) pTNM CLASSIFICATION (AJCC 8th Edition) Reporting of pT, pN, and (when applicable) pM categories is based on information available to the pathologist at the time the report is issued. As per the AJCC (Chapter 1, 8th Ed.) it is the managingphysician s responsibility to establish the final pathologic stage based upon all pertinent information, including but potentially not limited to this pathology report. Modified Classification y pT Category pT1c pN Category pN not assigned (no nodes submitted or found) Breast Biomarker Testing Performed on Previous Biopsy Estrogen Receptor (ER) Status Positive (greater than 10% of cells demonstrate nuclear positivity) Percentage of Cells with Nuclear Positivity 40 % Breast Biomarker Testing Performed on Previous Biopsy Progesterone Receptor (PgR) Status Positive Percentage of Cells with Nuclear Positivity 1-5 % Breast Biomarker Testing Performed on Previous Biopsy HER2 (by immunohistochemistry) Positive (Score 3+) Percentage of Cells with Uniform Intense Complete Membrane Staining 90 % Presents for ongoing oncologic management. Interim history: Tolerating therapy well. For the last 2 weeks she has been getting daily headaches. She takes Ambien to help her sleep at night but shortly after getting up in the morning she has onset of bitemporal headache that can extendrearward and feel like it is going behind her eyes. She does not have any sinus congestion or postnasal drip. She saw her procedure tech. No abnormality to account for headache. Has a floater in herright eye. Saw her PCP who advised a trial of Claritin. She has been taking it for several days buthas not noticed any change in the headaches. She has no other neurologic symptoms. Left chest wall seroma has recurred. PMH, medications and allergies personally reviewed by me today. Any changes documented in appropriate section. ROS: Constitutional: Denies episodes of fever and night sweats. Neuro: Denies ROMERO, dizziness and imbalance. Denies symptoms of neuropathy. HEENT: No recent change in voice, vision or hearing. Resp: Denies cough, wheeze and hemoptysis. CVS: See above. : Denies dysuria or gross hematuria. No symptoms of bladder outlet obstruction. Endo: Denies hot flashes. Denies polyuria and polydipsia. Denies heat and cold intolerance. Derm: Denies rash. Denies jaundice and diffuse pruritis. Heme: Denies unusual bleeding and unexplained bruising. Psych: Normal mood. PHYSICAL EXAM: VITALS: Blood pressure 131/70, pulse 78, temperature 36.7 C (98 F), temperature source Oral, resp. rate 20, weight 69.6 kg (153 lb 8 oz), SpO2 96%. EYES: Sclerae are anicteric bilaterally. RESPIRATORY: Normal passive respirations. CARDIOVASCULAR: Rhythm is regular. ABDOMEN: No abdominal distention. Extremities: No swelling or edema. SKIN: No jaundice. MS: Left chest wall seroma. LABS: ASSESSMENT/PLAN: (C50.919, Z17.0) Malignant neoplasm of breast in female, estrogen receptor positive, unspecified laterality, unspecified site of breast (HCC) (primary encounter diagnosis) (C78.7) Liver metastases (HCC) Assessment: -The patient is a 78-year-old female with a past medical history significant for hypertension, TIA and Posadas's esophagus, history of bleeding gastric ulcer as well as DCIS of the left breast who was found to have metastatic adenocarcinoma (liver) consistent with breast primary after presenting with epigastric pain. -Breast biopsy revealed invasive carcinoma with ER/MN and HER-2 status the same as the sample from liver biopsy. -KPS is 100%. -Has been tolerating trastuzumab well. -No symptoms, exam or echocardiographic findings of cardiomyopathy. -s/p left simple mastectomy. -Will discuss every 3 month Zometa. -Recurrent left chest seroma. -Answered questions today regarding CBC differentials. -New daily bitemporal headaches. This is a new and unusual symptom for her. Empiric therapy for allergies not working. In the setting of HER2 positive disease, MRI brain warranted. -Most recent echocardiogram was in April 2023. She has no signs or symptoms of cardiomyopathy. Therefore benefit of continuing trastuzumab outweighs risk. Plan: -Continue letrozole. -Continue trastuzumab. -Monitor CBC & CMP every 3 weeks & OV in 6 weeks. -Update bone density. -She will contact Dr. Matos's office regarding seroma. -Surveillance echocardiogram after seroma drained/resolved. -MRI brain. Portions of this documentation were copied and pasted from previous office visit notes in order to provide a cohesive continuity of the history. The note has been reviewed and edited and updated as necessary. Christiano Centeno DO documented in this encounterFort [facility]05-07-[facility]24 Telephone encounter Note * Telephone Encounter - Stefania Felix LISW - 10/11/2023 10:42 AM EDT SOCIAL WORK FOLLOW UP NOTE: [facility] Date of service: October 11, 2023 Danette Bishop is being seen for a follow up social work visit. Today's visit includes: patient TOPICS ADDRESSED: coping/support - SW met with pt this date prior to OV. Pt inquiring about any other local support groups, reporting she has tried [facility] at [facility] but reports they are not specificfor metastatic breast cancer and she does not want to alarm the other attendees by discussing her metastatic disease. SW discussed [facility] in [place] as well as the [facility]. Pt reports she attempted [facility] and it was not specific for metastatic disease either. She also reports she attempted [facility] and did not feel a connection to her mentor. SW discussed with pt that finding a local and specific group for metastatic cancer may be difficult. Pt then reported she is enrolled in two monthly online support groups for metastatic cancer through [facility] breast cancer and [email or web address]. SW encouraged pt to attempt [facility] again with a new mentor. Pt took brochure again and reported she will think about it. PLAN: Continue follow up as needed F/U APPOINTMENT: PRN Assigned SW listed in Care Team tab: Yes FANNY Banks [facility]05-07-[facility]24 Miscellaneous Notes* Telephone Encounter - Stefania Felix LISW - 10/11/2023 10:42 AM EDT SOCIAL WORK FOLLOW UP NOTE: [facility] Date of service: October 11, 2023 Danette Bishop is being seen for a follow up social work visit. Today's visit includes: patient TOPICS ADDRESSED: coping/support - SW met with pt this date prior to OV. Pt inquiring about any other local support groups, reporting she has tried [facility] at [facility] but reports they are not specificfor metastatic breast cancer and she does not want to alarm the other attendees by discussing her metastatic disease. SW discussed [facility] in [place] as well as the [facility]. Pt reports she attempted [facility] and it was not specific for metastatic disease either. She also reports she attempted [facility] and did not feel a connection to her mentor. SW discussed with pt that finding a local and specific group for metastatic cancer may be difficult. Pt then reported she is enrolled in two monthly online support groups for metastatic cancer through [facility] cancer and [email or web address]. SW encouraged pt to attempt [facility] again with a new mentor. Pt took brochure again and reported she will think about it. PLAN: Continue follow up as needed F/U APPOINTMENT: PRN Assigned MELISSA listed in Care Team tab: Yes JOANA Banks-Issac documented in this encounterFort Hamilton Hospital05-06-2024 History of Present illness Narrative* Sandra Goodman RN - 10/10/2023 7:36 AM EDT Patient is here for IVAD port flush/blood draw per [facility] protocol. IVAD is located in right upper chest. Site cleansed with Chloraprep IVAD accessed with a #20 gauge 3/4" non-coring Gripper needle Flush with 5cc's Normal Saline. Blood Return: Good. 10 cc's blood aspirated and discarded. Blood drawn for CBC and CMP. Flushed with: 20 ml Normal Saline. Non-coring needle removed. Paper tape applied to puncture site. Site negative for redness, edema or tenderness. Patient tolerated procedure well. documented in this encounterFort Hamilton Hospital04-19-2024 History of Present illness Narrative* Sandra Goodman RN - 09/23/2023 1:56 PM EDT Kanjinti infused over 60 minutes per patient request. documented in this encounterFort Hamilton Hospital04-15-2024 History of Present illness Narrative* Callie Sullivan PA-C - 09/19/2023 2:00 PM EDT REASON FOR TODAY'S VISIT: Patient presents with: Established Patient: Seroma drainage HISTORY of PRESENT ILLNESS: Danette Bishop, 78 year old year old female s/p a Left Mastectomy performed on 07/05/2023. She was seen on 07/06/2023 for the initial Post-Op visit and surgical pathology results were reviewed at that time. She had seroma drained on 08/10, 08/21, and 09/05/2023 in which 120 cc of fluid was aspirated. She returns today for evaluation of "swelling" in the Left operative area which began several days ago. The Patient denies any fever, chills or redness in the incisional area. She states that otherwise she is doing well. EXAMINATION: The Left chest wall incisional line is healing well and without any evidence of infection. There isfluid ballotable in the left surgical chest wall site. This area was cleansed with an alcohol wipe,then a sterile #18 gauge needle was inserted into the incision at the anterior axillary line, in the upright position, and 100 cc's of serosanguineous fluid was aspirated into a sterile syringe. Pressure was applied to the aspiration site with a DSD. The patient acknowledges resolution of her symptoms with the seroma aspiration. IMPRESSION: Danette Bishop, 78 year old year old female, s/p a LEFT simple mastectomy performed by Dr. Matos (Breast Surgeon) on 06/28/2023. Final pathology reported Residual invasive ductal carcinoma, 1.6 mm, Grade 3 (margins clear) ER+, MN+, HER2+ PATHOLOGICAL STAGE LEFT BREAST: yp,T1c Genetic testing reported on 02/12/2021 and was negative for pathogenic variant Post op seroma, 100 cc aspirated again today. PLAN: She will continue using the ADRIÁN wrap as directed in hopes of increasing the skin adherence to the muscle, thereby decreasing cavity space/seroma formation for one week, then no need to re-wrap. Encourage to be aware of over extending her arm in order to prevent stress on the incision site. She is instructed on the signs and symptoms of infection including redness, fever, draining, edema,pain. Patient instructed on the signs and symptoms of seroma including edema and discomfort Discussed healing, may need placement of drain or doxycycline injection for sclerosis of fluid if returns. Ms. Bishop will call for an appointment, if fluid/swelling develops, and will be seen at by both Dr. Matos and myself. She has our names and numbers to stay in touch if she has any questions, concerns or problems in the interim. Callie Sullivan PA-C Cc Dr. Matos (Breast Surgeon) Tami Chang MD (DrC) [address] [place] [address] documented in this encounterFort Hamilton Hospital04-15-2024 Nurse Note* Kelly Aguayo LPN - 09/19/2023 1:56 PM EDT Seroma drainage Last mammogram on: 03/16/23 bilateral Results: see report Is the patient active on MyChart Yes Electronically Signed By: Kelly Aguayo LPN In Department: [facility] REVIEW OF PATIENT HISTORY: OB History T2 L1 SAB0 IAB0 Ectopic0 Multiple0 Live Births0 Comment: .Menarche: 12; Age at 1st : 25; Post menopausal FAMILY HISTORY Problem Relation Age of Onset Colon Cancer Mother mets to stomach Stroke Father at age 62 Breast Cancer Sister 85 Heart disease Paternal Grandmother CAD PAST MEDICAL HISTORY Diagnosis Date Breast cancer (HCC) 2012 left Breast cancer (HCC) 04/2023 local recurrence on left GI bleed 2008 Hypertension Liver nodule TIA (transient ischemic attack) 2012 PAST SURGICAL HISTORY Procedure Laterality Date COLONOSCOPY every 5 yrs due to f/h colon cqan all normal per pt EGD GERD EGD 09/01/2020 Repeat in 2 years INSJ TUNNELED CTR VAD W/SUBQ PORT AGE 5 YR/> 09/29/2020 PAST SURGICAL HISTORY OF thyroid removal PAST SURGICAL HISTORY OF left breast 2 episodes of DCIS PAST SURGICAL HISTORY OF back surgeries times 2 Social History Tobacco Use Smoking status: Former Years: 2 Types: Cigarettes Quit date: 09/16/1965 Years since quittin.0 Smokeless tobacco: Never Tobacco comments: Pt smoked 2-3 cigarettes daily x 2 years. Vaping Use Vaping Use: Never used Substance Use Topics Alcohol use: Yes Comment: moderate Drug use: No documented in this encounterFort [facility] Hospital04-01-2024 Nurse Note* Kelly Aguayo LPN - 09/05/2023 2:31 PM EDT Seroma check Last mammogram on: 03/16/2023 Results: see report Is the patient active on [employer] Yes Electronically Signed By: Kelly Aguayo LPN In Department: [facility] REVIEW OF PATIENT HISTORY: OB History T2 L1 SAB0 IAB0 Ectopic0 Multiple0 Live Births0 Comment: .Menarche: 12; Age at 1st : 25; Post menopausal FAMILY HISTORY Problem Relation Age of Onset Colon Cancer Mother mets to stomach Stroke Father at age 62 Breast Cancer Sister 85 Heart disease Paternal Grandmother CAD PAST MEDICAL HISTORY Diagnosis Date Breast cancer (HCC) 2012 left Breast cancer (HCC) 04/2023 local recurrence on left GI bleed 2008 Hypertension Liver nodule TIA (transient ischemic attack) 2012 PAST SURGICAL HISTORY Procedure Laterality Date COLONOSCOPY every 5 yrs due to f/h colon cqan all normal per pt EGD GERD EGD 09/01/2020 Repeat in 2 years INSJ TUNNELED CTR VAD W/SUBQ PORT AGE 5 YR/> 09/29/2020 PAST SURGICAL HISTORY OF thyroid removal PAST SURGICAL HISTORY OF left breast 2 episodes of DCIS PAST SURGICAL HISTORY OF back surgeries times 2 Social History Tobacco Use Smoking status: Former Years: 2 Types: Cigarettes Quit date: 09/16/1965 Years since quittin.0 Smokeless tobacco: Never Tobacco comments: Pt smoked 2-3 cigarettes daily x 2 years. Vaping Use Vaping Use: Never used Substance Use Topics Alcohol use: Yes Comment: moderate Drug use: No documented in this encounterFort [facility]04-01-2024 History of Present illness Narrative* Callie Sullivan PA-C - 09/05/2023 2:30 PM EDT REASON FOR TODAY'S VISIT: Patient presents with: Established Patient: Seroma HISTORY of PRESENT ILLNESS: Danette Bishop is a 78 year old year old female Breast cancer hx: LEFT breast cancer in 2012, s/p lumpectomy, XRT. In 2020 diagnosed with metastatic breast cancer to her liver. Liver mass 3.2 cm. Imaging and biopsyshow a local recurrence LEFT breast cancer 1.7 cm mass with associated calcifications (span 4 cm) @1:00 position. S/p chemotherapy with a good clinical response in the liver. PET scan with continued update in the breast. [id number] - stage IV ER+MN+HER2+ Genetic testing reported on 02/12/2021 and was negative for pathogenic variant Receiving maintenance Trastuzumab and Letrozole under the care of Dr. Centeno (Med Onc). 05/18/24 LIVER MRI There are 2 stable subtle right hepatic lobe lesions. These were not shown to beavid on PET/CT. No new or developing mass or adenopathy. s/p a LEFT simple mastectomy on 06/28/2023 for local control. Final pathology 1.6 cm, Grade 3 (margins clear) ER+MN+HER2+ [id number] Post op seroma HISTORY: Patient was last seen on 08/22/2023 for a seroma check. At that time, 120 cc was aspirated and patient tolerated well. She return today reporting fluid build up in the LEFT surgical site. Denies any fever/chills, n/v, SOB, redness, warmth or pain in the surgical site. EXAMINATION: The Left chest wall incisional line is healing well and without any evidence of infection. There isfluid ballotable in the left chest wall area. This area was cleansed with an alcohol wipe, then a sterile #18 gauge needle was inserted into the incision at the anterior axillary line, in the uprightposition, and 120 cc's of serosanguineous fluid was aspirated into a sterile syringe. Pressure applied to the aspiration site with a DSD and ADRIÁN bandage. The patient acknowledges resolution of her symptoms with the seroma aspiration. IMPRESSION: Danette Bishop, 78 year old year old female, s/p a LEFT simple mastectomy performed by Dr. Matos (Breast Surgeon) on 06/28/2023. Final pathology reported Residual invasive ductal carcinoma, 1.6 mm, Grade 3 (margins clear) ER+, MN+, HER2+ PATHOLOGICAL STAGE LEFT BREAST: yp,T1c Genetic testing reported on 02/12/2021 and was negative for pathogenic variant Post op seroma, 120 cc aspirated again today. PLAN: Patient agrees to use the ADRIÁN wrap, along with ABD pads, in hopes of decreasing the seroma cavity, allowing for adherence and resolution of the residual seroma. Encourage to be aware of over extending her arm in order to prevent stress on the incision site. She is instructed on the signs and symptoms of infection including redness, fever, draining, edema,pain. Patient instructed on the signs and symptoms of seroma including edema and discomfort Ms. Bishop should return for a wound check in 2 weeks (sooner if needed). She will call with any questions or concerns in the interim. Callie Sullivan PA-C cc: Tami Chang MD ([facility]) [address] [place] [address] documented in this encounterFort [facility] Hospital03-26-2024 History of Present illness Narrative* Sandra Goodman RN - 08/30/2023 7:32 AM EDT Patient is here for IVAD port flush/blood draw per Nursing Ep[facility] protocol. IVAD is located in right upper chest. Site cleansed with Chloraprep IVAD accessed with a #20 gauge 3/4" non-coring Gripper needle Flush with 5cc's Normal Saline. Blood Return: Good. 10 cc's blood aspirated and discarded. Blood drawn for CBC and CMP. Flushed with: 20 ml Normal Saline. Non-coring needle removed. Paper tape applied to puncture site. Site negative for redness, edema or tenderness. Patient tolerated procedure well. documented in this encounterFort Hamilton Hospital03-20-2024 History of Present illness Narrative* Freda Matos DO - 08/24/2023 6:32 PM EDT Presents for a seroma aspiration LEFT mastectomy site prepped sterile 18 gauge inserted 120 cc seroma aspirated No signs of infection Patient tolerated well ADRIÁN wrap applied Freda Matos DO Breast Surgeon documented in this encounterFort Hamilton Hospital03-18-2024 Miscellaneous Notes* [facility] Carson RT(R) - 08/22/2023 1:20 PM EDT Radiology Service Progress Note PATIENT NAME: Danette Bishop DATE OF SERVICE: August 22, 2023 TIME: 1:51 PM PATIENT IDENTITY VERIFICATION COMPLETED USING TWO (2) IDENTIFIERS: Name and Date of confirmedby patient verbally and Name and Date of confirmed by identification band. FALL SCREENING: Has the patient had 2 falls in the last year or 1 fall with injury or currently using an Ambulatory Assistive Device (Walker, Cane, Wheelchair, Crutches, etc.)? No PATIENT GENDER DATA: Female. status: : No status: NO. PATIENT RELEVANT IMPLANT DATA REVIEWED: Yes PATIENT PRESENTS WITH AN IMPLANTABLE OR ATTACHED GARNETTER: No RADIOLOGY DEPARTMENT: MR; Exam(s) Completed: Body: Liver (routine) PERIPHERAL IV DATA: Not applicable - RN de accessed port SIGNED BY: RT Brady(R) August 22, 2023 1:51 PM documented in this encounterFort Hamilton Hospital03-18-2024 Nurse Note* Leonor Warner RN - 08/22/2023 1:20 PM EDT Radiology Service Progress Note DATE OF SERVICE: August 22, 2023 TIME: 1:34 PM PATIENT WEIGHT: 153LBS PATIENT IDENTITY VERIFICATION COMPLETED USING TWO (2) STANDARD IDENTIFIERS: Name and Date of confirmed by patient verbally and Name and Date of confirmed by identification band. FALL SCREENING: Has the patient had 2 falls in the last year or 1 fall with injury or currently using an Ambulatory Assistive Device (Walker, Cane, Wheelchair, Crutches, etc.)? No PATIENT GENDER DATA: Female. status: : No status: NO. ALLERGIES: Reviewed and unchanged CONTRAST ALLERGY: No EXAM: MRI IV SITE: Ambulatory: A power injectable Mediport was accessed in the Right chest with a 3/4 inch 20gauge needle. Blood Return, Flushed easily with normal saline, Good Blood Return Post Injection, and No Complications IV SITE APPEARANCE: Clean,Dry and Intact SIGNATURE: Leonor Warner RN PATIENT NAME: Danette Bishop DATE: August 22, 2023 TIME: 1:34 PM documented in this encounterFort Hamilton Hospital03-18-2024 History of Present illness Narrative* Meena Isaac RT(R) - 08/22/2023 11:30 AM EDT RADIOLOGY SERVICE PROGRESS NOTE SERVICE DATE: 08/22/2023 SERVICE TIME: 11:18 AM PATIENT IDENTITY VERIFICATION COMPLETED USING TWO (2) STANDARD IDENTIFIERS: Name and Date of confirmed by patient verbally FALL SCREENING: Has the patient had 2 falls in the last year or 1 fall with injury or currently using an Ambulatory Assistive Device (Walker, Cane, Wheelchair, Crutches, etc.)? Yes, Patient High Riskfor Falls What interventions were put in place to prevent falls during this visit? Increased Observations by Caregivers PATIENT GENDER DATA: .female : No ALLERGIES: Reviewed and unchanged MEDICATIONS REVIEWED: No PATIENT RELEVANT IMPLANT DATA REVIEWED: Not Applicable PATIENT PRESENTS WITH AN IMPLANTABLE OR ATTACHED GARNETTER: No CREATININE: Creatinine Date Value Ref Range Status 08/12/2023 0.60 0.58 - 0.96 mg/dL Final 07/19/2023 0.67 0.58 - 0.96 mg/dL Final 06/07/2023 0.73 0.58 - 0.96 mg/dL Final Estimated Glomerular Filtration Rate Date Value Ref Range Status 08/12/2023 92 >=60 mL/min/1.73m Final Comment: Estimated Glomerular Filtration Rate (eGFR) is calculated using the 2020 CKD-EPI creatinine equation. This equation utilizes serum creatinine, sex, and age as parameters. The creatinine assay has traceable calibration to isotope dilution- mass spectrometry. Refer to KDIGO guidelines for clinical interpretation. In patients with unstable renal function, e.g. those with acute kidney injury, the eGFRmay not accurately reflect actual GFR. eGFR- Date Value Ref Range Status 07/27/2021 >60 Final P.O.C.T. RESULTS: N/A August 22, [address] PERFORMED: No IV SITE: Ambulatory: A peripheral IV was started in the Right antecubital site with a Angio cath: 24 gauge. POST EXAM PIV STATUS: Discontinued PROCEDURE TYPE: NM INJECT: PET/CT BODY SCAN. 10.4 mCi F18 FDG. No other medications given.. ADMINISTRATION TIME: 1113 PATIENT DISCHARGED TO: Ambulatory patient, left OR department area. A Diagnostic radioactive procedure has taken place, with no further precautions necessary other than routine body substance precautions. More information regarding radiation safety can be found usingthis link: [email or web address]%[email or web address] SIGNATURE: ABDULAZIZ Tillman) PATIENT NAME: Danette Bishop DATE: August 22, 2023 TIME: 11:18 AM PAGER/CONTACT #: documented in this encounterFort Hamilton Hospital03-18-2024 NoteHNO ID: [id number] Author: MEENA ISAAC RT(R) Service: Nuclear Medicine Author Type: Technologist Type: Progress Notes Filed: 08/22/2023 11:19 Note Text: RADIOLOGY SERVICE PROGRESS NOTE SERVICE DATE: 08/22/2023 SERVICE TIME: 11:18 AM PATIENT IDENTITY VERIFICATION COMPLETED USING TWO (2) STANDARD IDENTIFIERS: Name and Date of confirmed by patient verbally FALL SCREENING: Has the patient had 2 falls in the last year or 1 fall with injury or currently using an Ambulatory Assistive Device (Walker, Cane, Wheelchair, Crutches, etc.)? Yes, Patient High Risk for Falls What interventions were put in place to prevent falls during this visit? Increased Observations by Caregivers PATIENT GENDER DATA: .female : No ALLERGIES: Reviewed and unchanged MEDICATIONS REVIEWED: No PATIENT RELEVANT IMPLANT DATA REVIEWED: Not Applicable PATIENT PRESENTS WITH AN IMPLANTABLE OR ATTACHED GARNETTER: No CREATININE: Creatinine Date Value Ref Range Status 08/12/2023 0.60 0.58 - 0.96 mg/dL Final 07/19/2023 0.67 0.58 - 0.96 mg/dL Final 06/07/2023 0.73 0.58 - 0.96 mg/dL Final Estimated Glomerular Filtration Rate Date Value Ref Range Status 08/12/2023 92 >=60 mL/min/1.73m? Final Comment: Estimated Glomerular Filtration Rate (eGFR) is calculated using the 2020 CKD-EPI creatinine equation. This equation utilizes serum creatinine, sex, and age as parameters. The creatinine assay has traceable calibration to isotope dilution-mass spectrometry. Refer to KDIGO guidelines for clinical interpretation. In patients with unstable renal function, e.g. those with acute kidney injury, the eGFR may not accurately reflect actual GFR. eGFR- Date Value Ref Range Status 07/27/2021 >60 Final P.O.C.T. RESULTS: N/A August 22, [address] PERFORMED: No IV SITE: Ambulatory: A peripheral IV was started in the Right antecubital site with a Angio cath: 24 gauge. POST EXAM PIV STATUS: Discontinued PROCEDURE TYPE: NM INJECT: PET/CT BODY SCAN. 10.4 mCi F18 FDG. No other medications given.. ADMINISTRATION TIME: 1113 PATIENT DISCHARGED TO: Ambulatory patient, left OR department area. A Diagnostic radioactive procedure has taken place, with no further precautions necessary other than routine body substance precautions. More information regarding radiation safety can be found using this link: [email or web address]%[email or web address] SIGNATURE: RT Layne(R) PATIENT NAME: Danette Bishop DATE: August 22, 2023 TIME: 11:18 AM [facility]ER[facility]CONTACT [phone] Nurse Note* Kelly Aguayo LPN - 08/22/2023 10:10 AM EDT Seroma Last mammogram on: 03/16/2023 bilateral Results: see report Is the patient active on MyChart Yes Electronically Signed By: Kelly Aguayo LPN In Department: [facility] REVIEW OF PATIENT HISTORY: OB History T2 L1 SAB0 IAB0 Ectopic0 Multiple0 Live Births0 Comment: .Menarche: 12; Age at 1st : 25; Post menopausal FAMILY HISTORY Problem Relation Age of Onset Colon Cancer Mother mets to stomach Stroke Father at age 62 Breast Cancer Sister 85 Heart disease Paternal Grandmother CAD PAST MEDICAL HISTORY Diagnosis Date Breast cancer (HCC) 2012 left Breast cancer (HCC) 04/2023 local recurrence on left GI bleed 2008 Hypertension Liver nodule TIA (transient ischemic attack) 2012 PAST SURGICAL HISTORY Procedure Laterality Date COLONOSCOPY every 5 yrs due to f/h colon cqan all normal per pt EGD GERD EGD 09/01/2020 Repeat in 2 years INSJ TUNNELED CTR VAD W/SUBQ PORT AGE 5 YR/> 09/29/2020 PAST SURGICAL HISTORY OF thyroid removal PAST SURGICAL HISTORY OF left breast 2 episodes of DCIS PAST SURGICAL HISTORY OF back surgeries times 2 Social History Tobacco Use Smoking status: Former Years: 2 Types: Cigarettes Quit date: 09/16/1965 Years since quittin.9 Smokeless tobacco: Never Tobacco comments: Pt smoked 2-3 cigarettes daily x 2 years. Vaping Use Vaping Use: Never used Substance Use Topics Alcohol use: Yes Comment: moderate Drug use: No documented in this encounterFort Hamilton Hospital03-08-2024 Miscellaneous Notes* Telephone Encounter - Ramila Bolaños RN - 08/12/2023 12:44 PM EST Late Entry for 10:21 am. Patient was here today for treatment. Patient asked to see this nurse to see her chairside. Patienthad questions pertaining to a bill she received from her insurance company regarding a scan that was read by a radiologist outside of her coverage. Patient was given the billing customer service number to call. Patient was not satisfied with this however she was informed that the billing customer service line handles all calls related to billing questions and they will hopefully be able to figureout and resolve the problem. Patient also stated Dr. Matos mentioned at her OV yesterday that she was going to order breast PT/OT. Patient stated their office had not ordered it yet and would like our office to order. OV noteswere not available to review. Patient informed she should contact Dr. Matos's office to put in the order so appointments can be made since they were the office that suggested this therapy. Patient sent their office a [facility] message. Ramila Bolaños RN documented in this encounterFort Hamilton Hospital03-07-2024 Nurse Note* Kelly Aguayo LPN - 08/11/2023 12:47 PM EST Seroma drainage Did patient bring outside records to appt today? : No Last mammogram on: 03/16/2023 bilateral Results: see report Is the patient active on [employer] Yes Electronically Signed By: Kelly Aguayo LPN In Department: [facility] REVIEW OF PATIENT HISTORY: OB History T2 L1 SAB0 IAB0 Ectopic0 Multiple0 Live Births0 Comment: .Menarche: 12; Age at 1st : 25; Post menopausal FAMILY HISTORY Problem Relation Age of Onset Colon Cancer Mother mets to stomach Stroke Father at age 62 Breast Cancer Sister 85 Heart disease Paternal Grandmother CAD PAST MEDICAL HISTORY Diagnosis Date Breast cancer (HCC) 2012 left Breast cancer (HCC) 04/2023 local recurrence on left GI bleed 2008 Hypertension Liver nodule TIA (transient ischemic attack) 2012 PAST SURGICAL HISTORY Procedure Laterality Date COLONOSCOPY every 5 yrs due to f/h colon cqan all normal per pt EGD GERD EGD 09/01/2020 Repeat in 2 years INSJ TUNNELED CTR VAD W/SUBQ PORT AGE 5 YR/> 09/29/2020 PAST SURGICAL HISTORY OF thyroid removal PAST SURGICAL HISTORY OF left breast 2 episodes of DCIS PAST SURGICAL HISTORY OF back surgeries times 2 Social History Tobacco Use Smoking status: Former Years: 2 Types: Cigarettes Quit date: 09/16/1965 Years since quittin.9 Smokeless tobacco: Never Tobacco comments: Pt smoked 2-3 cigarettes daily x 2 years. Vaping Use Vaping Use: Never used Substance Use Topics Alcohol use: Yes Comment: moderate Drug use: No documented in this encounterFort Hamilton Hospital03-07-2024 History of Present illness Narrative* Freda Matos DO - 08/11/2023 12:30 PM EST REASON FOR TODAY'S VISIT: Patient presents with: Established Patient: Seroma drainage HISTORY of PRESENT ILLNESS: Danette Bishop is a 78 year old year old female Breast cancer hx: LEFT breast cancer in 2012, s/p lumpectomy, XRT. In 2020 diagnosed with metastatic breast cancer to her liver. Liver mass 3.2 cm. Imaging and biopsyshow a local recurrence LEFT breast cancer 1.7 cm mass with associated calcifications (span 4 cm) @1:00 position. S/p chemotherapy with a good clinical response in the liver. PET scan with continued update in the breast. [id number] - stage IV ER+MN+HER2+ Genetic testing reported on 02/12/2021 and was negative for pathogenic variant Receiving maintenance Trastuzumab and Letrozole under the care of Dr. Centeno (Med Onc). 05/18/24 LIVER MRI There are 2 stable subtle right hepatic lobe lesions. These were not shown to beavid on PET/CT. No new or developing mass or adenopathy. s/p a LEFT simple mastectomy on 06/28/2023 for local control. Final pathology 1.6 cm, Grade 3 (margins clear) ER+MN+HER2+ [id number] Presents today for a post op seroma at the mastectomy site She presents with her and has lots of questions today HISTORY: Returns today's today for US guided biopsy seroma aspiration. EXAMINATION: GEN alert and orientated, well nourished, calm Regional Lymph Nodes There is no concerning supraclavicular, infraclavicular or cervical lymphadenopathy. BREASTS: The patient was examined in the upright and supine position. LEFT breast surgically absent with 100cc seroma aspirated, incision healing well, no signs of infection LEFT axilla no palpable axillary lymphadenopathy ABD soft, non-distended, non-tender, no organomegaly EXT ambulated independently, good ROM of upper extremities, no evidence of lymphedema IMPRESSION: HISTORY of PRESENT ILLNESS: Danette Bishop is a 78 year old year old female Breast cancer hx: LEFT breast cancer in 2012, s/p lumpectomy, XRT. In 2020 diagnosed with metastatic breast cancer to her liver. Liver mass 3.2 cm. Imaging and biopsyshow a local recurrence LEFT breast cancer 1.7 cm mass with associated calcifications (span 4 cm) @1:00 position. S/p chemotherapy with a good clinical response in the liver. PET scan with continued update in the breast. [id number] - stage IV ER+MN+HER2+ Genetic testing reported on 02/12/2021 and was negative for pathogenic variant Receiving maintenance Trastuzumab and Letrozole under the care of Dr. Centeno (Med Onc). 05/18/24 LIVER MRI There are 2 stable subtle right hepatic lobe lesions. These were not shown to beavid on PET/CT. No new or developing mass or adenopathy. s/p a LEFT simple mastectomy on 06/28/2023 for local control. Final pathology 1.6 cm, Grade 3 (margins clear) ER+MN+HER2+ [id number] Post op seroma aspirated today PLAN: Instructed to keep the ADRIÁN wrap on to allow for healing Answered quite a few questions today about her cancer. She is in quite a few online groups and concerned about follow up and her tumor developing resistance Gave her a copy of the ASCO guidelines which do not support routine blood tests or tumor markers tofollow disease. Reviewed her pathology Answered her questions Discussed the best follow up for her is the PET scan and abd MRI which she has scheduled for 08/22/23 Ms. Bishop will follow-up with Dr. Centeno (Medical Oncologist) as scheduled, 09/02/2023. Ms. Bishop will follow-up with me as needed for seroma aspiration - she knows to call the office to be seen She has our names and numbers to stay in touch if she has any questions, concerns or problems in the interim. Freda Matos DO Breast Surgeon documented in this encounterFort Hamilton Hospital03-06-2024 History of Present illness Narrative* Callie Sullivan PA-C - 08/10/2023 10:30 AM EST REASON FOR TODAY'S VISIT: Patient presents with: Established Patient: Seroma check One month follow up HISTORY of PRESENT ILLNESS: Danette Bishop, 78 year old year old female, s/p a LEFT simple mastectomy performed by Dr. Matos (Breast Surgeon) on 06/28/2023. Final pathology reported Residual invasive ductal carcinoma, 1.6 mm, Grade 3 (margins clear) ER+, MN+, HER2+ PATHOLOGICAL STAGE LEFT BREAST: yp,T1c She presented on 05/05/2023 with LEFT breast cancer history, diagnosed in 2012, with local in breast recurrence in 2020 also found to be metastatic to her liver ER+MN+HER2+ She is on letrozole and herceptin Her LEFT breast local recurrence is a 1.5 cm mass @ 5:00, 1 cm FN anterior depth, with a 4 cm span of abnormal calcifications. Increased activity on PET. No axillary LN activity LIVER - lesions better evaluated on Liver MRI, reporting 2 stable subtle right hepatic lobe lesions Imaging showed stability of her METs, however, increased avidity of her left breast Mastectomy was recommended HISTORY: Patient was last at her post operative appointment on 07/06/2023. At that time, pathology was reviewed and she was to return to have the drain removed. In the interim, the MATTI drain was removed on 07/18/2023 and she was advised to use the ADRIÁN wrap in hopes of decreasing formation of a seroma. She returns today and is not sure if she has swelling in the LEFT breast/chest wall operative site or "just fat". The Patient denies any fever, chills or redness in the incisional area. She states that otherwise she is doing well. Last bilateral mammogram was on 03/16/2023 PMH significant for hypertension, TIA (on Plavix) and Posadas's esophagus,GERD, history of bleedinggastric ulcer EXAMINATION: GEN alert and orientated, well nourished, calm Regional Lymph Nodes There is no concerning supraclavicular, infraclavicular or cervical lymphadenopathy. BREASTS: The patient was examined in the upright and supine position. LEFT breast surgically absent with Fluctuance noted in the surgical site. Aspiration was attempted,but needle became clotted and therefore aspiration aborted. Compression and ABD applied to the siteand ADRIÁN wrap placed. No bleeding. Horizontal incision well approximated. C/D/E. Soft, no dominant ma sses, no NAC, no discharge, no skin changes. Patient tolerated very well, without any pain. LEFT axilla no palpable axillary lymphadenopathy ABD soft, non-distended, non-tender, no organomegaly EXT ambulated independently, good ROM of upper extremities, no evidence of lymphedema IMPRESSION: Danette Bishop, 78 year old year old female, s/p a LEFT simple mastectomy performed by Dr. Matos (Breast Surgeon) on 06/28/2023. Final pathology reported Residual invasive ductal carcinoma, 1.6 mm, Grade 3 (margins clear) ER+, MN+, HER2+ PATHOLOGICAL STAGE LEFT BREAST: yp,T1c Genetic testing reported on 02/12/2021 and was negative for pathogenic variant Post op seroma PLAN: Discussed aspiration prior to attempt with and patient was advised to return tomorrow for US guided aspiration. She will wear the ADRIÁN wrap as instructed in hopes of increasing absorption until her appointment. Instructed on how to release the cord in the left axillary area with massage/stretching for 10 minutes 4 times daily. She will schedule the consult with Breast Rehab to aid her in release of the tendon and scar tissueformation. Ms. Bishop will follow-up with Dr. Centeno (Medical Oncologist) as scheduled, 09/02/2023. Ms. Bishop will follow-up with us as scheduled. She has our names and numbers to stay in touch if she has any questions, concerns or problems in the interim. Callie Sullivan PA-C cc: Tami Chang MD ([facility]) [address] [place] [address] documented in this encounterFort Hamilton Hospital03-06-2024 Nurse Note* Kelly Aguayo LPN - 08/10/2023 10:30 AM EST Seroma check Did patient bring outside records to appt today? : No Last mammogram on: 03/16/23 bilateral Results: see report Is the patient active on [employer] Yes Electronically Signed By: Kelly Aguayo LPN In Department: [facility] REVIEW OF PATIENT HISTORY: OB History T2 L1 SAB0 IAB0 Ectopic0 Multiple0 Live Births0 Comment: .Menarche: 12; Age at 1st : 25; Post menopausal FAMILY HISTORY Problem Relation Age of Onset Colon Cancer Mother mets to stomach Stroke Father at age 62 Breast Cancer Sister 85 Heart disease Paternal Grandmother CAD PAST MEDICAL HISTORY Diagnosis Date Breast cancer (HCC) 2012 left Breast cancer (HCC) 04/2023 local recurrence on left GI bleed 2008 Hypertension Liver nodule TIA (transient ischemic attack) 2012 PAST SURGICAL HISTORY Procedure Laterality Date COLONOSCOPY every 5 yrs due to f/h colon cqan all normal per pt EGD GERD EGD 09/01/2020 Repeat in 2 years INSJ TUNNELED CTR VAD W/SUBQ PORT AGE 5 YR/> 09/29/2020 PAST SURGICAL HISTORY OF thyroid removal PAST SURGICAL HISTORY OF left breast 2 episodes of DCIS PAST SURGICAL HISTORY OF back surgeries times 2 Social History Tobacco Use Smoking status: Former Years: 2 Types: Cigarettes Quit date: 09/16/1965 Years since quittin.9 Smokeless tobacco: Never Tobacco comments: Pt smoked 2-3 cigarettes daily x 2 years. Vaping Use Vaping Use: Never used Substance Use Topics Alcohol use: Yes Comment: moderate Drug use: No documented in this encounterFort [facility] Hospital02-14-2024 Miscellaneous Notes* Telephone Encounter - Freda Tan - 07/20/2023 4:25 PM EST Check out comments: MRI abd/PET scan one week prior to OV with Domenic on 08/31/2023. documented in this encounterFort Hamilton Hospital02-14-2024 History of Present illness Narrative* Christiano Centeno DO - 07/20/2023 10:41 AM EST Oncologic problem(s): 1) Metastatic ER-positive, HER2 positive breast cancer. HPI: The patient is a 78-year-old female with past medical history significant for hypertension, stroke (x2; not on ASA because of h/o bleeding ulcer) and DCIS. Treated for left sided DCIS with lumpectomy and radiation when living in [place] in 2012. Started on tamoxifen but had negative side effects then sounds like she was tried on an aromatase inhibitor but have musculoskeletal side effects and then stopped treatment. Had been getting routine mammography in [place] until 2013. Since has been getting mammogram at [facility]. Most recent was on 12/28/2019. Scattered benign calcifications were observed. There were no dense spiculated masses or suspicious microcalcifications identified. Fairly stable architectural distortion in the left breast with previous surgery. No skin thickening or retraction. Significant change from previous mammogram on 12/05/2018. She developed abdominal pain in July 2020. Initially had an ultrasound on 07/08/2020 that demonstrated a 2.7 x 3.2 x 2.6 cm hypoechoic solid nodule in the right lobe of liver. MRI Liver 08/08/2020: Liver: Multiple solid masses in the right lobe of the liver. Largest of these is seen within the peripheral right lobe of the liver and measures 2.5 x 2.5 cm. Biliary tract: The common bile duct is normal in course and caliber. No filling defect is identified within the common duct. Gallbladder: Unremarkable Pancreatic duct: 7 mm T2 bright lesion involving the pancreatic tail. No dilatation of the pancreatic duct. Spleen: No lesion is identified. Pancreas: The pancreas enhances normally and is without focal lesions. Adrenal glands: No mass is identified Kidneys: Simple appearing cortical cysts involving both kidneys. No hydronephrosis. Possible lesion involving the T6 vertebral body. Postsurgical change involving the left breast. No adenopathy is identified. Imaged lung bases are clear. No pericardial effusion or pericardial thickening. CT of chest, abdomen pelvis revealed no thoracic lymphadenopathy. There was a nonspecific scleroticdensity in the vertebral body of T6. Scarring was noted in the left breast. No pulmonary nodules. CT of the abdomen pelvis reveals scattered hepatic masses favoring metastatic disease. There is left lateral abdominal wall hernia containing nondilated descending colon. Biopsy one of the right lobe of the liver lesions performed on 08/21/2020. Pathology: Metastatic adenocarcinoma with prominent mucinous features. Tumor cells were positive for CK7 and GATA3 and negative for CK20, TTF-1 and Napsin a. ER staining showed weak positivity in approximately 10 to 20% of cells. MN was negative with 0% staining. HER-2 was positive at 3+ on immunohistochemistry stain. 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 Her most recent EGDwas in 2019. That study was done to evaluate epigastric spasms. It was performed by Dr. Rahman with the GI group in [place]. Pathology on the biopsy specimen report was not available but patient said her symptoms stopped when she changed from omeprazole to ease omeprazole. She did not have dysphagia. No odynophagia. No heartburn per se. She denied nausea. She has IBS mostly manifested as constipation. She has chronic intermittent left upper quadrant pain that she attributes to gas. No signs of GI bleeding. Patient lost a son to suicide on July 2020. Underwent EGD on 09/01/2020. Esophageal mucosal changes secondary to established short segment Posadas's disease was present in the lower third esophagus. The maximal longitudinal extent of these changes was 6 mm in length. Biopsies were obtained with cold forceps for histology. The entire examined stomach and duodenum were normal. Pathology: Esophagus, distal, biopsy Cardio-oxyntic mucosa with no diagnostic abnormality. - Negative for intestinal metaplasia. Ultrasound left breast on 09/02/2020 identified a 1.7 x 0.9 x 0.6 cm lobulated mass in the left breast at 1:00 anterior depth. It was hypoechoic and correlated with the mammography findings. It was adjacent to the surgical scar. She was referred for and underwent biopsy on 09/09/2020. Pathology: A. Left breast, needle core biopsy: - Invasive ductal carcinoma with mucinous features, provisional histologic grade 2 (see comment). Estrogen Receptor (ER) Positive (40%) Stain intensity: Moderate to strong Progesterone Receptor (PgR) Positive (1-5%) Stain intensity: Weak HER2 (ERBB2) IMMUNOHISTOCHEMISTRY ASSAY Interpretation: POSITIVE for HER2 (ERBB2) Expression Score: 3+ Whole body bone scan 09/04/2020: Whole body bone scan and spot images demonstrate moderately increased uptake at T12-L1, L4-5 and left L5 facet, corresponding to moderate degenerative change of the thoracolumbar spine and postsurgical change of L4-5 interbody fusion and pedicle alla and screws fixation of the left L4-5 on the abdomen and pelvic CT. Specifically, no abnormally increased or decreased uptake is identified in the mid thoracic spine to correspond to 1.4 cm T6 sclerotic lesion on recent chest CT. There is increased uptake involving both shoulders, sternoclavicular joints, left upper cervical spine, hips, knees, and ankles in a pattern most compatible with degenerative/arthritic disease. If clinically indicated, correlation with radiographs could be obtained at clinical discretion. No other areas of abnormal focal, regional or segmental osseous uptake are seen to suggest the presence of osseous metastatic lesions. INDETERMINATE 1.4 CM T6 SCLEROTIC LESION WITHOUT ASSOCIATED ABNORMAL TRACER UPTAKE IDENTIFIED. MRI thoracic spine 10/02/2020: IMPRESSION: T6 sclerotic focus. Given the lack of activity on the recent bone scan, this is most likely not an active metastatic lesion and may reflect a bone island. No evidence of metastatic disease to the thoracic vertebral bodies. Numerous hepatic metastatic lesions have been evaluated with CT recently. Previous therapy: 1) Docetaxel, pertuzumab and trastuzumab. 2) Trastuzumab and Pertuzumab. Current therapy: 1) Trastuzumab (Ontruzant). 2) Letrozole. Began 03/2021. Presents for ongoing oncologic management. Interim history: Since last seen, underwent left-sided simple mastectomy on 06/28/2023. Pathology: Left breast, mastectomy: - Residual invasive ductal carcinoma, Lorraine grade III, measuring 16 mm in greatest dimension (please see synoptic report and comment). 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 - Microcalcifications in invasive carcinoma, DCIS, changes consistent with prior procedure, and au of blood vessels. - Biopsy site changes, biopsy clip (x1), and changes consistent with prior procedure identified. [facility] 07/01/23 Diagnosis Comment Histologic sections of the grossly-identified 16 mm x 16 mm tumor bed demonstrates residual invasive and in-situ carcinoma. Tumor bed dimension #1: 16 mm Tumor bed dimension #2: 16 mm Invasive tumor cellularity: 50% Ductal carcinoma in situ cellularity: 5% SPECIMEN Procedure Total mastectomy Specimen Laterality Left TUMOR Histologic Type Invasive carcinoma of no special type (ductal) Histologic Grade ([place] Histologic Score) Glandular (Acinar) / Tubular Differentiation Score 3 Nuclear Pleomorphism Score 3 Mitotic Rate Score 3 Overall Grade Grade 3 (scores of 8 or 9) Tumor Size Greatest dimension of largest invasive focus (Millimeters): 16 mm Tumor Focality Single focus of invasive carcinoma Ductal Carcinoma In Situ (DCIS) Present Size (Extent) of DCIS Estimated size (extent) of DCIS is at least (Millimeters): 4 mm Architectural Patterns Solid Nuclear Grade Grade III (high) Necrosis Present, central (expansive "comedo" necrosis) Lobular Carcinoma In Situ (LCIS) Not identified Lymphatic and / or Vascular Invasion Not identified Dermal Lymphatic and / or Vascular Invasion Not identified Microcalcifications Present in DCIS Present in invasive carcinoma Present in non-neoplastic tissue Treatment Effect in the Breast Probable or definite response to presurgical therapy in the invasivecarcinoma MARGINS Margin Status for Invasive Carcinoma All margins negative for invasive carcinoma Distance from Invasive Carcinoma to Closest Margin Greater than: 2 mm Margin Status for DCIS All margins negative for DCIS Distance from DCIS to Closest Margin Greater than: 2 mm REGIONAL LYMPH NODES Regional Lymph Node Status Not applicable (no regional lymph nodes submitted or found) pTNM CLASSIFICATION (AJCC 8th Edition) Reporting of pT, pN, and (when applicable) pM categories is based on information available to the pathologist at the time the report is issued. As per the AJCC (Chapter 1, 8th Ed.) it is the managingphysician s responsibility to establish the final pathologic stage based upon all pertinent information, including but potentially not limited to this pathology report. Modified Classification y pT Category pT1c pN Category pN not assigned (no nodes submitted or found) Breast Biomarker Testing Performed on Previous Biopsy Estrogen Receptor (ER) Status Positive (greater than 10% of cells demonstrate nuclear positivity) Percentage of Cells with Nuclear Positivity 40 % Breast Biomarker Testing Performed on Previous Biopsy Progesterone Receptor (PgR) Status Positive Percentage of Cells with Nuclear Positivity 1-5 % Breast Biomarker Testing Performed on Previous Biopsy HER2 (by immunohistochemistry) Positive (Score 3+) Percentage of Cells with Uniform Intense Complete Membrane Staining 90 % No cardiovascular symptoms. PMH, medications and allergies personally reviewed by me today. Any changes documented in appropriate section. ROS: Constitutional: Denies episodes of fever and night sweats. Neuro: Denies ROMERO, dizziness and imbalance. Denies symptoms of neuropathy. HEENT: No recent change in voice, vision or hearing. Resp: Denies cough, wheeze and hemoptysis. CVS: See above. : Denies dysuria or gross hematuria. No symptoms of bladder outlet obstruction. Endo: Denies hot flashes. Denies polyuria and polydipsia. Denies heat and cold intolerance. Derm: Denies rash. Denies jaundice and diffuse pruritis. Heme: Denies unusual bleeding and unexplained bruising. Psych: Normal mood. PHYSICAL EXAM: VITALS: Blood pressure 112/72, pulse 80, temperature 36.7 C (98 F), temperature source Temporal, weight 69.2 kg (152 lb 8 oz), SpO2 98%. EYES: Sclerae are anicteric bilaterally. LYMPHATIC: There is no palpable cervical, supraclavicular or axillary adenopathy. RESPIRATORY: Inspiratory breath sounds are of normal intensity in all james. No rales, wheezes or rhonchi. CARDIOVASCULAR: Rhythm is regular. BREAST: chaperoned. Examined mastectomy incision. Healing very well. No sign of infection. ABDOMEN: No abdominal distention. No hepatomegaly or tenderness. Extremities: No swelling or edema. SKIN: No jaundice or rash. NEUROLOGIC: supervisor filling and packing II-XII are grossly intact. No focal motor weakness. LABS: Component Latest Ref Rng & Units 07/19/2023 WBC 3.70 - 11.00 k/uL 6.56 RBC 3.90 - 5.20 m/uL 4.04 Hemoglobin 11.5 - 15.5 g/dL 12.1 Hematocrit 36.0 - 46.0 % 36.0 MCV 80.0 - 100.0 fL 89.1 MCH 26.0 - 34.0 pg 30.0 MCHC 30.5 - 36.0 g/dL 33.6 RDW-CV 11.5 - 15.0 % 14.6 Platelet Count 150 - 400 k/uL 385 MPV 9.0 - 12.7 fL 9.4 Neut% % 60.5 Abs Neut (ANC) 1.45 - 7.50 k/uL 3.97 Lymph% % 29.7 Abs Lymph 1.00 - 4.00 k/uL 1.95 [place]% % 6.6 Abs [place] <0.87 k/uL 0.43 Eosin% % 1.7 Abs Eosin <0.46 k/uL 0.11 Baso% % 1.2 Abs Baso <0.11 k/uL 0.08 Immature Gran % % 0.3 IMMATURE GRANS (ABS) <0.10 k/uL <0.03 NRBC /100 WBC 0.0 Absolute nRBC <0.01 k/uL <0.01 DTYPE Auto Protein, Total 6.3 - 8.0 g/dL 6.4 Albumin 3.9 - 4.9 g/dL 4.0 Calcium 8.5 - 10.2 mg/dL 9.1 Bilirubin, Total 0.2 - 1.3 mg/dL 0.7 Alkaline Phosphatase 34 - 123 U/L 81 AST 13 - 35 U/L 14 ALT 7 - 38 U/L 13 Glucose 74 - 99 mg/dL 109 (H) BUN 7 - 21 mg/dL 13 Creatinine 0.58 - 0.96 mg/dL 0.67 Sodium 136 - 144 mmol/L 134 (L) Potassium 3.7 - 5.1 mmol/L 4.2 Chloride 97 - 105 mmol/L 100 CO2 22 - 30 mmol/L 25 Anion Gap 9 - 18 mmol/L 9 eGFR >=60 mL/min/1.73m 90 ASSESSMENT/PLAN: (C50.919, Z17.0) Malignant neoplasm of breast in female, estrogen receptor positive, unspecified laterality, unspecified site of breast (HCC) (primary encounter diagnosis) (C78.7) Liver metastases (HCC) Assessment: -The patient is a 78-year-old female with a past medical history significant for hypertension, TIA and Posadas's esophagus, history of bleeding gastric ulcer as well as DCIS of the left breast who was found to have metastatic adenocarcinoma (liver) consistent with breast primary after presenting with epigastric pain. -Breast biopsy revealed invasive carcinoma with ER/MN and HER-2 status the same as the sample from liver biopsy. -KPS is 90%. -Has been tolerating trastuzumab well. -No symptoms, exam or echocardiographic findings of cardiomyopathy. -Now status post left simple mastectomy. -Reviewed pathology. -Reviewed labs from the . No cytopenias. -She would qualify for every 3 month Zometa. -Discussed obtaining MRI abdomen and PET scan at next staging evaluation. Pending results we will discuss referral for opinion on liver directed therapy if she would like to. Plan: -Continue letrozole. -Continue trastuzumab. -Monitor CBC & CMP every 3 weeks & OV in 6 weeks. -Update bone density after completely healed from surgery. -Surveillance echocardiogram due but will defer until she has completely healed from the mastectomy. Portions of this documentation were copied and pasted from previous office visit notes in order to provide a cohesive continuity of the history. The note has been reviewed and edited and updated as necessary. I spent a total of 15 minutes on the date of the service which included preparing to see the patient, [id number] patient care, completing clinical documentation, obtaining and/or reviewing separately obtained history, performing a medically appropriate examination, counseling and educating the pat ient/family/caregiver, ordering medications, tests, or procedures, communicating with other HCPs (not separately reported), and communicating results to the patient/family/caregiver. Christiano Centeno DO [facility] Nurse Note* Kelly Aguayo LPN - 07/18/2023 1:13 PM EST Pt here today for Left breast drain removal. Drain has been draining less than 30 cc's for 2 days. Removed with no difficulties and pt tolerated well. Covered area with dry dressing. Adrián wrapped pt and instructed her to keep on for 2 weeks along with watching for signs and symptoms of infection andseroma. She verbalized understanding. She has follow up on August 09 with Callie SRINIVASAN for follow up and will do seroma check as well at that time. Kelly Aguayo LPN documented in this encounterFort [facility]01-[facility]24 NoteHNO ID: [id number] Author: ?, ?, ? Service: Pharmacy Author Type: ? Type: Plan of Care Filed: 06/30/2023 16:55 Note Text: PHARMACY BEDSIDE DELIVERY SERVICE Patient Name: Danette Bishop The marked outpatient medications were Filled at: [facility] and delivered to the patient's bedside to [id number] Medication List START taking these medications cefADROxil 500 mg capsule Commonly known as: DURICEF Take 1 capsule by mouth two times a day for 10 days. CHANGE how you take these medications HYDROcodone-acetaminophen 5-325 mg per tablet Commonly known as: NORCO Take 1 tablet by mouth every 6 hours as needed for pain for up to 3 days. What changed: how much to take CONTINUE taking these medications ALPRAZolam 0.5 mg tablet Commonly known as: XANAX CALCIUM 500 ORAL esomeprazole 40 mg capsule Commonly known as: NexIUM FLUoxetine 40 mg capsule Commonly known as: PROzac Take 1 capsule by mouth once daily. letrozole 2.5 mg tablet Commonly known as: FEMARA Take 1 tablet by mouth once daily. levothyroxine 112 mcg tablet Commonly known as: SYNTHROID liothyronine 5 mcg tablet Commonly known as: CYTOMEL lisinopril 20 mg tablet Commonly known as: ZESTRIL multivitamin tablet promethazine 25 mg tablet Commonly known as: PHENERGAN Take 1 tablet by mouth every 6 hours as needed. FOR NAUSEA TYLENOL ORAL VITAMIN C 1,000 mg tablet Generic drug: Ascorbic Acid zolpidem 10 mg Commonly known as: AMBIEN You might also be taking other medications not listed above. If you have questions about any of your other medications, talk to the person who prescribed them or your Primary Care Provider. ASK your doctor about these medications clopidogrel 75 mg tablet Commonly known as: PLAVIX Kiran [facility] PAGER: [phone] June 30, 2023 4:55 [facility]01-24-2024 NoteHNO ID: [id number] Author: FIORDALIZA JONES RN Service: ? Author Type: Registered Nurse Type: Progress Notes Filed: 06/29/2023 10:49 Note Text: Visit made to the bedside, post-op day 1. Patient was kept overnight to monitor blood pressure. Patient is up and walking the hallway with . Reviewed basic home going instructions, including: pain management, bowel management, ROM/activity, nutrition/hydration, showering, MATTI drain care (MATTI x 1), incision care, when to call MD office. PAtient has ADRIÁN wrap on for a dressing. All questions answered. Patient is using heart pillow for comfort. Breast nurse navigator will follow-up with patient on Tuesday for post-op follow-up and drain check. [facility]ordaliza Jones, [facility] NoteHNO ID: [id number] Author: ROSALEE BARRON MD Service: General Surgery Author Type: Resident Type: Progress Notes Filed: 06/29/2023 10:11 Note Text: BREAST SURGICAL ONCOLOGY POSTOP PROGRESS NOTE SERVICE DATE: 06/29/2023 SERVICE TIME: 8:07 SUBJECTIVE: No complaints, eating well, no n/v, no c/o pain, walking in room OBJECTIVE: BP 145/62 Pulse 73 Temp 37.1 ?C (98.8 ?F) (Oral) Resp 19 SpO2 99% Date 06/28/23 07 - 06/29/23 0659 06/29/23 07 - 06/30/23 0659 Shift 6727-5387 7018-4895 0673-7036 24 Hour Total 0018-6816 9197-3356 9017-4878 24 Hour Total INTAKE IV 1000 1000 Volume (mL) (lactated ringers iv infusion) 1000 1000 Shift Total 1000 1000 OUTPUT Urine Urine Not Saved. 1 x 1 x Tubes 0 0 Drain/Tube Output (Drain/Tube 06/28/23 1200 Doug Rivera Left Upper Quadrant Flank) 0 0 # of BMs Number of BMs 0 x 0 x Shift Total 0 0 Weight (kg) Gen: In bed, family at bedside, NAD HEENT: EOMI CVS: RRR RESP: no labored breathing, O2 SAT 98% RA CHEST: left chest wall incision c/d/i, no hematoma, minimal seroma, MATTI 0 cc serosanquinous ABD: soft : voiding well EXT: SCD's BLE ASSESSMENT: Danette Bishop is a 78 year old female now POD#1 from a LEFT simple mastectomy for recurrent, metastatic left breast cancer Overall, recovering well with minimal complaints. 0cc output from MATTI drain overnight - drain stripped at bedside with minimal output. PLAN: - Pain management - Drain teaching - HL IV - OOB / Walk in luna / Incentive spirometer - Possible d/c later today - Follow up in clinic with Dr Matos SIGNATURE: Rosalee Barron MD PATIENT NAME: Danette Bishop DATE: June 29, 2023 TIME: 10:07 AM PAGER/CONTACT #: [phone] ETX#[id number] NoteEducation (GENSF) DANETTE BISHOP ([id number]) 1945 F Date Time Provider Department 06/29/23 FIORDALIZA JONES Reason for Visit: Education Of Patient/family [944] During your visit today, we recorded the following information about you: Allergies As of Date: 06/29/2023 Noted Allergy Reaction ADHESIVE TAPE-SILICONES 10/27/2020 2 - Rash SHELLFISH DERIVED 08/08/2020 7 - Swelling Date Reviewed: 06/29/2023 Reviewed by: Nico Bennett, RN - Fully Assessed Prescriptions as of 06/29/2023 - HYDROcodone-acetaminophen (NORCO) 5-325 mg per tablet Take 1 tablet by mouth every 6 hours as needed for pain for up to 3 days. - cefADROxil (DURICEF) 500 mg capsule Take 1 capsule by mouth two times a day for 10 days. - letrozole (FEMARA) 2.5 mg tablet Take 1 tablet by mouth once daily. - calcium carbonate (CALCIUM 500 ORAL) Take 2 tablets by mouth once daily. - Ascorbic Acid (VITAMIN C) 1,000 mg tablet Take 1,000 mg by mouth once daily. - FLUoxetine (PROZAC) 40 mg capsule Take 1 capsule by mouth once daily. - multivitamin tablet Take 1 tablet by mouth once daily. - levothyroxine (SYNTHROID) 112 mcg tablet Take 112 mcg by mouth once daily. - promethazine (PHENERGAN) 25 mg tablet Take 1 tablet by mouth every 6 hours as needed. FOR NAUSEA - liothyronine (CYTOMEL) 5 mcg tablet Take 5 mcg by mouth once daily. - lisinopril (ZESTRIL, PRINIVIL) 20 mg tablet Take 20 mg by mouth once daily. - esomeprazole (NEXIUM) 40 mg capsule Take 40 mg by mouth DAILY (6 AM). - ACETAMINOPHEN (TYLENOL ORAL) Take by mouth. - zolpidem (AMBIEN) 10 mg tab Take 10 mg by mouth daily at bedtime. - ALPRAZolam (XANAX) 0.5 mg tablet Take 0.5 mg by mouth at bedtime as needed. - clopidogrel (PLAVIX) 75 mg tablet Take 75 mg by mouth once daily. Facility-Administered Medications as of 06/29/2023 - senna-docusate 8.6-50 mg 1 tablet (SENNA-S) - NaCl 0.9% iv flush bag - acetaminophen 650 mg tab(s) (TYLENOL) - HYDROcodone 5 mg - acetaminophen 325 mg tablet (NORCO) - morphine 2 mg injection - ondansetron 4 mg tab(s) (ZOFRAN) - ondansetron (PF) 4 mg injection (ZOFRAN) - ALPRAZolam 0.5 mg tab(s) (XANAX) - lisinopril 20 mg tab(s) (ZESTRIL) - FLUoxetine 40 mg cap(s) (PROzac) - levothyroxine 112 mcg tab(s) (SYNTHROID) - liothyronine 5 mcg tab(s) (CYTOMEL) - melatonin 3 mg tab(s) Encounter Status:Closed by FIORDALIZA JONES on 06/29/23[facility] NoteHNO ID: [id number] Author: SHAMIKA YOON RN Service: Nursing Author Type: Registered Nurse Type: Nursing Progress Note Filed: 06/28/2023 12:47 Note Text: 1238 Hydralazine 5 mg given for elevated BP. Will continue to monitor closely. [facility] [id number] NoteHNO ID: [id number] Author: FIORDALIZA JONES RN Service: ? Author Type: Registered Nurse Type: Progress Notes Filed: 06/28/2023 12:18 Note Text: BREAST HEALTH NURSE POST-OPERATIVE DISCHARGE INSTRUCTIONS Prior to the patient's discharge from the hospital, the breast health nurse initiated post-op education with the patient. Visit made to the pre-op area, patient is in the OR. Gift bag placed with patient belongings. The patient was given the following: Heart shaped pillow -Yes Meditative book -Yes Support group information -Yes Patient will be contacted by phone to evaluate for further educational and emotional support needs. 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 Staffing Anesthesiologist: Kritsin Alvarez MD GENERAL MERCHANDISE MANAGER: Steve Barrios APRN.GENERAL MERCHANDISE MANAGER Performed by: VIDA Indications and Patient Condition Indications for airway management: anesthesia Preoxygenated: yes anesthesia circuit Patient position: sniffing Method: asleep Final Airway Details Final airway type: supraglottic airway Number of attempts at approach: 1 Final Supraglottic Airway: i-gel Size 4 Seal Adequate: yes Airway not difficult SIGNATURE: Steve Barrios APRN.GENERAL MERCHANDISE MANAGER PATIENT NAME: Danette Bishop DATE: June 28, 2023 TIME: 10:55 AM CSN: [id number] NoteEducation (YANELI) DANETTE BISHOP ([id number]) 1945 F Date Time Provider Department 06/28/23 FIODRALIZA JONES Reason for Visit: Education Of Patient/family [904] During your visit today, we recorded the following information about you: Allergies As of Date: 06/28/2023 Noted Allergy Reaction ADHESIVE TAPE-SILICONES 10/27/2020 2 - Rash SHELLFISH DERIVED 08/08/2020 7 - Swelling Date Reviewed: 06/28/2023 Reviewed by: Steve Pete, RN - Fully Assessed Prescriptions as of 06/28/2023 - cefADROxil (DURICEF) 500 mg capsule Take 1 capsule by mouth two times a day for 10 days. - letrozole (FEMARA) 2.5 mg tablet Take 1 tablet by mouth once daily. - HYDROcodone-acetaminophen (NORCO) 5-325 mg per tablet Take 1-2 tablets by mouth every 6 hours as needed for pain for up to 5 days. - calcium carbonate (CALCIUM 500 ORAL) Take 2 tablets by mouth once daily. - Ascorbic Acid (VITAMIN C) 1,000 mg tablet Take 1,000 mg by mouth once daily. - FLUoxetine (PROZAC) 40 mg capsule Take 1 capsule by mouth once daily. - multivitamin tablet Take 1 tablet by mouth once daily. - levothyroxine (SYNTHROID) 112 mcg tablet Take 112 mcg by mouth once daily. - promethazine (PHENERGAN) 25 mg tablet Take 1 tablet by mouth every 6 hours as needed. FOR NAUSEA - liothyronine (CYTOMEL) 5 mcg tablet Take 5 mcg by mouth once daily. - lisinopril (ZESTRIL, PRINIVIL) 20 mg tablet Take 20 mg by mouth once daily. - esomeprazole (NEXIUM) 40 mg capsule Take 40 mg by mouth DAILY (6 AM). - ACETAMINOPHEN (TYLENOL ORAL) Take by mouth. - zolpidem (AMBIEN) 10 mg tab Take 10 mg by mouth daily at bedtime. - ALPRAZolam (XANAX) 0.5 mg tablet Take 0.5 mg by mouth at bedtime as needed. - clopidogrel (PLAVIX) 75 mg tablet Take 75 mg by mouth once daily. Facility-Administered Medications as of 06/28/2023 - lactated ringers iv infusion - fentaNYL 50 mcg/mL 50 mcg injection (SUBLIMAZE) - ondansetron 4 mg tab(s) (ZOFRAN) - ondansetron (PF) 4 mg injection (ZOFRAN) - prochlorperazine 10 mg injection (COMPAZINE) - HYDROmorphone 0.2 mg injection (DILAUDID) - oxyCODONE IR 5 mg tab(s) (ROXICODONE) Encounter Status:Closed by FIORDALIZA JONES on 06/28/23[facility] NoteHNO ID: [id number] Author: FREDA MATOS, DO Service: ? Author Type: Physician Type: Progress Notes Filed: 06/09/2023 06:41 Note Text: Called and left a voice mail messageFarren Memorial [phone] Miscellaneous Notes* Telephone Encounter - Luke Grijalva Kelly - 05/20/2023 1:48 PM EST Spoke to patient,confirmed her surgery date and appointments related to her procedure with Dr. Matos on 06/28/23 . documented in this encounterFort [facility] Hospital12-15-2023 Miscellaneous Notes* Telephone Encounter - Carmen Sims LPN - 05/20/2023 12:55 PM EST Spoke with pt. She believes her last bone density was done at [facility]. Checked [facility] bone density done 10/08/21 ordering physician was Jazlyn Chang. Instructed pt. She should contact her PCP to see if another bone Density is warranted at this time. Dr. Centeno made aware of last bone density informed pt. Did not need another one as yet. Carmen Sims LPN * Telephone Encounter - Christiano Centeno DO - 05/20/2023 12:44 PM EST I put in an order for the bone density but it should be done wherever she had her most recent one. I cannot find anything in [employer]. Christiano Centeno DO * Telephone Encounter - Adore Whiting LPN - 05/20/2023 11:29 AM EST Pt stops at desk stating she is getting [employer] alerts that she is due for bone density. She is asking if that should be ordered. Please advise. Adore Whiting LPN documented in this encounterFort Hamilton Hospital12-15-2023 Instructions* Patient Instructions* Christiano Centeno DO - 05/20/2023 12:46 PM EST BONE MINERAL DENSITY PATIENT INSTRUCTIONS Bone mineral density testing measures the amount of calcium in certain parts of your bones. This information determines how strong your bones are. The test is used to detect osteoporosis, a disease in which the bone's mineral content and density are low, increasing a person's risk of fractures. Thelumbar spine (lower back) and the hip are the skeletal sites usually examined. For the test, remember that: 1. You cannot take this test if you are . 2. Eat a normal diet on the day of the test. 3. Take your medications as you normally would. 4. DO NOT take calcium supplements (such as Tums) for 24 hours before the test. 5. On the day of the test, leave valuables (jewelry or credit cards) at home. 6. The test should be performed prior to oral, rectal or IV contrast studies, or at least 7 days after any of these studies. For the test, you may be asked to wear a hospital gown. You will lie on your back, on a padded table, in a comfortable position. Generally, you can resume your usual activities immediately. documented in this encounterFort Hamilton Hospital12-13-2023 Miscellaneous Notes* Telephone Encounter - Kelly Aguayo LPN - 05/18/2023 1:54 PM EST Returned pt call, informed pt she will need to talk with via phone before she can schedule surgery. Pt verbalize understanding and would like to move the phone call date up. She completed her MRI and the results are back. I will relay the message to and will call her when I have answer. She thanked me for calling. Kelly Aguayo LPN * Telephone Encounter - Sandra Zabala - 05/18/2023 1:25 PM EST Patient called- She would like to skip her upcoming phone appointment with Dr Matos and schedule the surgery. She would like the surgery soon. Thank you documented in this encounterFort Hamilton Hospital12-13-2023 History of Present illness Narrative* Christiano Centeno, - 05/18/2023 9:14 AM EST Oncologic problem(s): 1) Metastatic ER-positive, HER2 positive breast cancer. HPI: The patient is a 78-year-old female with past medical history significant for hypertension, stroke (x2; not on ASA because of h/o bleeding ulcer) and DCIS. Treated for left sided DCIS with lumpectomy and radiation when living in [place] in 2012. Started on tamoxifen but had negative side effects then sounds like she was tried on an aromatase inhibitor but have musculoskeletal side effects and then stopped treatment. Had been getting routine mammography in [place] until 2013. Since has been getting mammogram at [facility]. Most recent was on 12/28/2019. Scattered benign calcifications were observed. There were no dense spiculated masses or suspicious microcalcifications identified. Fairly stable architectural distortion in the left breast with previous surgery. No skin thickening or retraction. Significant change from previous mammogram on 12/05/2018. She developed abdominal pain in July 2020. Initially had an ultrasound on 07/08/2020 that demonstrated a 2.7 x 3.2 x 2.6 cm hypoechoic solid nodule in the right lobe of liver. MRI Liver 08/08/2020: Liver: Multiple solid masses in the right lobe of the liver. Largest of these is seen within the peripheral right lobe of the liver and measures 2.5 x 2.5 cm. Biliary tract: The common bile duct is normal in course and caliber. No filling defect is identified within the common duct. Gallbladder: Unremarkable Pancreatic duct: 7 mm T2 bright lesion involving the pancreatic tail. No dilatation of the pancreatic duct. Spleen: No lesion is identified. Pancreas: The pancreas enhances normally and is without focal lesions. Adrenal glands: No mass is identified Kidneys: Simple appearing cortical cysts involving both kidneys. No hydronephrosis. Possible lesion involving the T6 vertebral body. Postsurgical change involving the left breast. No adenopathy is identified. Imaged lung bases are clear. No pericardial effusion or pericardial thickening. CT of chest, abdomen pelvis revealed no thoracic lymphadenopathy. There was a nonspecific scleroticdensity in the vertebral body of T6. Scarring was noted in the left breast. No pulmonary nodules. CT of the abdomen pelvis reveals scattered hepatic masses favoring metastatic disease. There is left lateral abdominal wall hernia containing nondilated descending colon. Biopsy one of the right lobe of the liver lesions performed on 08/21/2020. Pathology: Metastatic adenocarcinoma with prominent mucinous features. Tumor cells were positive for CK7 and GATA3 and negative for CK20, TTF-1 and Napsin a. ER staining showed weak positivity in approximately 10 to 20% of cells. MN was negative with 0% staining. HER-2 was positive at 3+ on immunohistochemistry stain. 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 Her most recent EGDwas in 2019. That study was done to evaluate epigastric spasms. It was performed by Dr. Rahman with the GI group in [place]. Pathology on the biopsy specimen report was not available but patient said her symptoms stopped when she changed from omeprazole to ease omeprazole. She did not have dysphagia. No odynophagia. No heartburn per se. She denied nausea. She has IBS mostly manifested as constipation. She has chronic intermittent left upper quadrant pain that she attributes to gas. No signs of GI bleeding. Patient lost a son to suicide on July 2020. Underwent EGD on 09/01/2020. Esophageal mucosal changes secondary to established short segment Posadas's disease was present in the lower third esophagus. The maximal longitudinal extent of these changes was 6 mm in length. Biopsies were obtained with cold forceps for histology. The entire examined stomach and duodenum were normal. Pathology: Esophagus, distal, biopsy Cardio-oxyntic mucosa with no diagnostic abnormality. - Negative for intestinal metaplasia. Ultrasound left breast on 09/02/2020 identified a 1.7 x 0.9 x 0.6 cm lobulated mass in the left breast at 1:00 anterior depth. It was hypoechoic and correlated with the mammography findings. It was adjacent to the surgical scar. She was referred for and underwent biopsy on 09/09/2020. Pathology: A. Left breast, needle core biopsy: - Invasive ductal carcinoma with mucinous features, provisional histologic grade 2 (see comment). Estrogen Receptor (ER) Positive (40%) Stain intensity: Moderate to strong Progesterone Receptor (PgR) Positive (1-5%) Stain intensity: Weak HER2 (ERBB2) IMMUNOHISTOCHEMISTRY ASSAY Interpretation: POSITIVE for HER2 (ERBB2) Expression Score: 3+ Whole body bone scan 09/04/2020: Whole body bone scan and spot images demonstrate moderately increased uptake at T12-L1, L4-5 and left L5 facet, corresponding to moderate degenerative change of the thoracolumbar spine and postsurgical change of L4-5 interbody fusion and pedicle alla and screws fixation of the left L4-5 on the abdomen and pelvic CT. Specifically, no abnormally increased or decreased uptake is identified in the mid thoracic spine to correspond to 1.4 cm T6 sclerotic lesion on recent chest CT. There is increased uptake involving both shoulders, sternoclavicular joints, left upper cervical spine, hips, knees, and ankles in a pattern most compatible with degenerative/arthritic disease. If clinically indicated, correlation with radiographs could be obtained at clinical discretion. No other areas of abnormal focal, regional or segmental osseous uptake are seen to suggest the presence of osseous metastatic lesions. INDETERMINATE 1.4 CM T6 SCLEROTIC LESION WITHOUT ASSOCIATED ABNORMAL TRACER UPTAKE IDENTIFIED. MRI thoracic spine 10/02/2020: IMPRESSION: T6 sclerotic focus. Given the lack of activity on the recent bone scan, this is most likely not an active metastatic lesion and may reflect a bone island. No evidence of metastatic disease to the thoracic vertebral bodies. Numerous hepatic metastatic lesions have been evaluated with CT recently. Previous therapy: 1) Docetaxel, pertuzumab and trastuzumab. 2) Trastuzumab and Pertuzumab. Current therapy: 1) Trastuzumab (Ontruzant). 2) Letrozole. Began 03/2021. Presents for ongoing oncologic management. Interim history: Continues to tolerate Herceptin very well. No cardiovascular symptoms. Normal appetite. No nausea or reflux. Still has occasional RUQ abdominal pain. PMH, medications and allergies personally reviewed by me today. Any changes documented in appropriate section. ROS: Constitutional: Denies episodes of fever and night sweats. Neuro: Denies ROMERO, dizziness and imbalance. Denies symptoms of neuropathy. HEENT: No recent change in voice, vision or hearing. Resp: Denies cough, wheeze and hemoptysis. CVS: See above. : Denies dysuria or gross hematuria. No symptoms of bladder outlet obstruction. Endo: Denies hot flashes. Denies polyuria and polydipsia. Denies heat and cold intolerance. Derm: Denies rash. Denies jaundice and diffuse pruritis. Heme: Denies unusual bleeding and unexplained bruising. Psych: Normal mood. PHYSICAL EXAM: VITALS: Blood pressure 126/83, pulse 77, temperature 36.7 C (98 F), height 152.5 cm (5' 0.04"), weight 69.4 kg (153 lb), SpO2 98%. EYES: Sclerae are anicteric bilaterally. LYMPHATIC: There is no palpable cervical, supraclavicular or axillary adenopathy. RESPIRATORY: Inspiratory breath sounds are of normal intensity in all james. No rales, wheezes or rhonchi. CARDIOVASCULAR: Rhythm is regular. BREAST: Alicia Padilla, DUTY MANAGER, AGNP-C chaperoned. The left breast appears larger. In sitting position, nipple deviated more downward. Area of tumor lateral to previous scar more tender. ABDOMEN: No abdominal distention. Extremities: No swelling or edema. SKIN: No jaundice or rash. NEUROLOGIC: supervisor filling and packing II-XII are grossly intact. No focal motor weakness. LABS: Component Latest Ref Rng & Units 05/17/2023 WBC 3.70 - 11.00 k/uL 6.67 RBC 3.90 - 5.20 m/uL 4.16 Hemoglobin 11.5 - 15.5 g/dL 12.3 Hematocrit 36.0 - 46.0 % 37.1 MCV 80.0 - 100.0 fL 89.2 MCH 26.0 - 34.0 pg 29.6 MCHC 30.5 - 36.0 g/dL 33.2 RDW-CV 11.5 - 15.0 % 15.1 (H) Platelet Count 150 - 400 k/uL 345 MPV 9.0 - 12.7 fL 9.9 Neut% % 59.3 Abs Neut (ANC) 1.45 - 7.50 k/uL 3.95 Lymph% % 31.2 Abs Lymph 1.00 - 4.00 k/uL 2.08 [place]% % 5.8 Abs [place] <0.87 k/uL 0.39 Eosin% % 2.4 Abs Eosin <0.46 k/uL 0.16 Baso% % 1.2 Abs Baso <0.11 k/uL 0.08 Immature Gran % % 0.1 IMMATURE GRANS (ABS) <0.10 k/uL <0.03 NRBC /100 WBC 0.0 Absolute nRBC <0.01 k/uL <0.01 DTYPE Auto Protein, Total 6.3 - 8.0 g/dL 6.7 Albumin 3.9 - 4.9 g/dL 4.2 Calcium 8.5 - 10.2 mg/dL 9.3 Bilirubin, Total 0.2 - 1.3 mg/dL 0.8 Alkaline Phosphatase 34 - 123 U/L 77 AST 13 - 35 U/L 14 ALT 7 - 38 U/L 16 Glucose 74 - 99 mg/dL 126 (H) BUN 7 - 21 mg/dL 14 Creatinine 0.58 - 0.96 mg/dL 0.71 Sodium 136 - 144 mmol/L 133 (L) Potassium 3.7 - 5.1 mmol/L 4.1 Chloride 97 - 105 mmol/L 98 CO2 22 - 30 mmol/L 26 Anion Gap 9 - 18 mmol/L 9 eGFR >=60 mL/min/1.73m 87 ASSESSMENT/PLAN: (C50.919, Z17.0) Malignant neoplasm of breast in female, estrogen receptor positive, unspecified laterality, unspecified site of breast (HCC) (primary encounter diagnosis) (C78.7) Liver metastases (HCC) Assessment: -The patient is a 77-year-old female with a past medical history significant for hypertension, TIA and Posadas's esophagus, history of bleeding gastric ulcer as well as DCIS of the left breast who was found to have metastatic adenocarcinoma consistent with breast primary after presenting with epigastric pain. -Breast biopsy revealed invasive carcinoma with ER/MN and HER-2 status the same as the sample from liver biopsy. -KPS is 90%. -She is tolerating trastuzumab well. -She would qualify for every 3 month Zometa. -Reviewed abdominal MRI imaging with her. 2 stable right-sided liver metastases. Plan: -Continue letrozole. -Continue trastuzumab. -Monitor CBC & CMP every 3 weeks & OV in 6 weeks. -Update bone density after surgery. -Neck surveillance echocardiogram due in July. -She will follow-up with Dr. Matos for left mastectomy. -Consider liver directed therapy if liver metastases remained stable. Portions of this documentation were copied and pasted from previous office visit notes in order to provide a cohesive continuity of the history. The note has been reviewed and edited and updated as necessary. I spent a total of 20 minutes on the date of the service which included preparing to see the patient, [id number] patient care, completing clinical documentation, obtaining and/or reviewing separately obtained history, performing a medically appropriate examination, counseling and educating the pat ient/family/caregiver, ordering medications, tests, or procedures, communicating with other HCPs (not separately reported), and communicating results to the patient/family/caregiver. Christiano Centeno DO documented in this encounterFort Hamilton Hospital12-12-2023 History of Present illness Narrative* Eveline Gaitan RT(R) - 05/17/2023 10:00 AM EST Radiology Service Progress Note PATIENT NAME: Danette Bishop DATE OF SERVICE: May 17, 2023 TIME: 10:20 AM PATIENT IDENTITY VERIFICATION COMPLETED USING TWO (2) IDENTIFIERS: Name and Date of confirmedby patient verbally. FALL SCREENING: Has the patient had 2 falls in the last year or 1 fall with injury or currently using an Ambulatory Assistive Device (Walker, Cane, Wheelchair, Crutches, etc.)? No PATIENT GENDER DATA: Female. status: : No status: NO. PATIENT RELEVANT IMPLANT DATA REVIEWED: Yes RADIOLOGY DEPARTMENT: MR; Exam(s) Completed: Body: Liver (routine) PERIPHERAL IV DATA: Site assessment: Clean,Dry and Intact, Site disposition Discontinued SIGNED BY: RT Luisa(R) May 17, 2023 10:20 AM documented in this encounterFort Hamilton Hospital12-12-2023 History of Present illness Narrative* Sandra Goodman RN - 05/17/2023 9:34 AM EST Patient called in by [facility] - MRI moved to today., Patient is here for IVAD port flush per [facility] protocol. IVAD is located in left upper chest. Site cleansed with Chloraprep IVAD accessed with a #20 gauge 3/4" non-coring Gripper needle Blood Return: Good Flushed with: 20 ml Normal Saline Non-coring needle left intact for MRI. Opsite applied to puncture site. Port site negative for redness, edema or tenderness. Patient tolerated procedure well. documented in this encounterFort Hamilton Hospital12-12-2023 History of Present illness Narrative* Sandra Goodman RN - 05/17/2023 7:22 AM EST Patient is here for IVAD port flush/blood draw per [facility] protocol. IVAD is located in left upper chest. Site cleansed with Chloraprep IVAD accessed with a #20 gauge 3/4" non-coring Gripper needle Flush with 5cc's Normal Saline. Blood Return: Good. 10 cc's blood aspirated and discarded. Blood drawn for CBC and CMP. Flushed with: 20 ml Normal Saline and 5 ml Heparin Lock Flush. Non-coring needle removed. Paper tape applied to puncture site. Site negative for redness, edema or tenderness. Patient tolerated procedure well. documented in this encounterFort Hamilton Hospital11-30-2023 History of Present illness Narrative* Freda Matos DO - 05/05/2023 9:30 AM EST REASON FOR TODAY'S VISIT: Patient presents with: New Patient: Left breast local recurrence Metastatic - 1 year follow up HISTORY of PRESENT ILLNESS: Danette Bishop is a 77 year old female with a history of stage IV breast cancer. Undergoing systemic therapy with Dr. Centeno I saw hear approximately 1 year ago to discuss surgery for local control in the setting on metastatic disease. Continuation of systemic therapy was decided at that time. Breast cancer hx: LEFT breast cancer in 2012, s/p lumpectomy, XRT. In 2020 diagnosed with metastatic breast cancer to her liver. Liver mass 3.2 cm. Imaging and biopsyshow a local recurrence 1.7 cm mass with associated calcifications (span 4 cm) @ 1:00 position. S/p chemotherapy with a good clinical response in the liver. [id number] - stage IV ER+MN+HER2+ HISTORY: Patient was initially presented on 04/22/2022 for an evaluation of surgical management of her left breast in the setting of a recurrent, metastatic breast cancer. At that time, she was receiving maintenance Trastuzumab and Letrozole under the care of Dr. Centeno (Med Onc). She had stable metastatic disease and he referred her for possible surgery for local control. Discussion was held regarding the goals of care for surgical removal of the breast in the setting of stage IV disease. It was recommended to continue to observe the breast disease and consider operating only if local control is failing. Her case was reviewed by the TB, who recommended to repeat mammogram, if the liver remained stable. In the interim, she underwent repeat breast imaging, CT CHEST, MRI ABD scans, bilateral diagnostic mammogram with LEFT breast US scans as well PET/CT scans She continues to tolerate Herceptin and letrozole well. Returns today to review the imaging findings and discuss her follow up plan. GENETIC TESTIN02/2021 Common Hereditary Cancers Panel through [employer] was negative for a pathogenic variant. A variant ofunknown significance was identified in APC. Her PMH significant for hypertension, TIA (on Plavix) and Posadas's esophagus,GERD, history of bleeding gastric ulcer She is and presents with her . 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 Up and about > 50% of waking hrs. ROS: HEENT: Denies vision changes or headaches BREAST: Denies palpating any new breast masses, no breast pain, no skin changes, no nipple discharge , states that she has noticed her LEFT breast scar to have increased in thickness and palpates a mass ABD: Denies any abdominal pain or new changes in bowel habits MUSCULOSKELETAL: Denies any bone, joint or muscle pain IMAGING: BILATERAL DIGITAL DIAGNOSTIC MAMMOGRAM TOMOSYNTHESIS WITH CAD: 03/16/2023 HISTORY: Multiple Diagnoses/ lt breast pain hx DCIS, now mets. /The patient is also due for her annual mammogram. /priors available for comparison /SEE TECH NOTE. RESULT: TECHNIQUE: The study was acquired using full field digital technology and interpreted from soft copy. Digital Breast Tomosynthesis (DBT) images were obtained and used to assist in the interpretation of this examination. Current study was also evaluated with a Computer Aided Detection (CAD). Comparison is made to exams dated: 04/22/2022 mammogram - [facility], 09/09/2020 mammogram, 09/02/2020 mammogram - [facility], 12/28/2019 mammogram, and 12/06/2019 mammogram. The breasts are heterogeneously dense, which may obscure small masses. The left breast has post-operative findings. There is an irregular focal asymmetry in the left breast at 5 o'clock middle depth adjacent to the surgical scar. This is more prominent. There also are multiple segmental pleomorphic calcifications in the left breast central to the nipple. These are seen in additional views and appear similar. There is a biopsy clip associated with the calcifications. No other significant masses, calcifications, or other findings are seen in either breast IMPRESSION: KNOWN BIOPSY PROVEN MALIGNANCY The irregular focal asymmetry in the left breast at 5 o'clock middle depth is indeterminate. An ultrasound is recommended. The multiple segmental pleomorphic calcifications in the left breast central to the nipple are a known biopsy positive for malignancy. A surgical consult is recommended. LIMITED ULTRASOUND OF LEFT BREAST: 03/16/2023 HISTORY: Multiple Diagnoses. RESULT: Comparison is made to exams dated: 03/16/2023 mammogram and 09/02/2020 ultrasound - [facility]. Color flow and real-time ultrasound of the left breast 1-3 o'clock, and retroareolar regions were performed. Quiles scale images of the real-time examination were reviewed. There is a 1.4 cm x 1.3 cm x 1.5 cm irregular mass in the left breast at 5 o'clock anterior depth. This irregular mass is hypoechoic and is adjacent to the surgical scar. This abnormality is more prominent and correlates with mammography findings. There are related calcifications IMPRESSION: KNOWN BIOPSY PROVEN MALIGNANCY The 1.4 cm x 1.3 cm x 1.5 cm irregular mass in the left breast is a known biopsy positive for malignancy. A surgical consult is recommended. DATE OF EXAM: Apr 21 2023 1:04PM [facility] [id number] - NM PET/CT BREAST / PROCEDURE REASON: multiple diagnoses [id number] PET/CT SCAN HISTORY: 78-year-old women with metastatic breast cancer. PREVIOUS COMPARISON PET/CT STUDY: No prior PET/CT OTHER COMPARISON: CT chest 01/19/2023 HEAD AND NECK: Lymph nodes: No lymphadenopathy with abnormal tracer uptake. Other: No remarkable findings. CHEST: 1.5 x 1.2 cm mid left breast lesion with SUV max 1.8. Lymph nodes: No lymph nodes with abnormal tracer uptake.: Lungs and airways: No nodules or masses with abnormal tracer uptake. Cardiovascular structures: No lesions with abnormal tracer uptake. Pleura: No pleural effusion or lesions with abnormal tracer uptake. ther: None.. ABDOMEN AND PELVIS: Hepatobiliary and pancreas: Physiologic uptake. No lesions with abnormal tracer uptake. Spleen: Physiologic uptake. No splenomegaly or lesions with abnormal tracer uptake. Adrenal Glands: No lesions with abnormal tracer uptake. Kidneys: Physiologic activity but no lesions with abnormal tracer uptake. Retroperitoneum: No lymph nodes or other lesions with abnormal tracer uptake. Mesentery: No lymph nodes or other lesions with abnormal tracer uptake. GI tract: Physiologic activity but no lesions with abnormal tracer uptake. Pelvis: No distinct tracer avid lymph nodes. BONE AND OTHER FINDINGS: No osseous destructive lesions with abnormal tracer uptake. Sclerotic lesion in T6 has no abnormal uptake. Degenerative arthritic change IMPRESSION: Head and neck: - No tracer avid lesions suspicious for metastases. Chest: - Moderate uptake in left breast lesion. No tracer avid lymphadenopathy. Abdomens and Pelvis: - No tracer avid lesions suspicious for metastases.. Bones and soft tissues: - No tracer avid lesions suspicious for metastases. No abnormal tracer uptake in sclerotic lesion T6 vertebral body. LIVE inadequate on PET scan - LIVER MRI ordered and scheduled for 05/31 EXAMINATION: GENERAL:well-nourished, healthy, alert and oriented x 3, calm SKIN:warm, dry, skin color, texture, turgor normal HEAD/EYES:normocephalic, atraumatic, and anicteric NECK: supple, symmetrical, no thyromegaly RESPIRATORY: Respirations regular & non-labored ABDOMEN: soft, nondistended. No hepatomegaly., No masses MUSCULOSKELETAL: No observed limitations in range of motion of upper extremities. Patient ambulatesindependently BREASTS: The Patient was examined in the upright and supine positions. Breasts are symmetric. Thereare no significant fibrocystic changes. Patient's cup size is D The patient was examined in the upright and supine position. RIGHT breast soft, no dominant masses, nipple everted, no discharge, no skin changes RIGHT axilla no palpable axillary lymphadenopathy LEFT breast asymmetrical - the radial scar @ 5:00 is pulled in with over lying thickness. there is a palpable 1.5 area @ 5:00 1 cm from nipple (medial portion of the scar) that corresponds to the US and PETS scan LEFT axilla no palpable axillary lymphadenopathy Regional Lymph Nodes: There is no concerning supraclavicular, infraclavicular or cervical lymphadenopathy. IMPRESSION: Danette Bishop is a 78 year old female with LEFT breast cancer in 2012 with local in breast recurrence in 2020 also found to be metastatic to her liver ER+MN+HER2+ She is on letrozole and herceptin Her LEFT breast local recurrence is a 1.5 cm mass @ 5:00, 1 cm FN anterior depth, with a 4 cm span of abnormal calcifications. Increased activity on PET. No axillary LN activity LIVER - lesions better evaluated on Liver MRI, pending 05/31 No other areas of metastatic disease PLAN:. We had a discussion of surgical management in the setting of metastatic disease. The cancer in her LEFT breast appears to perhaps be slowing increasing. If the liver area is stablewe can consider surgical excision of her breast cancer primary as this appears to be slowly changing. We also discussed no surgery and just continuing with systemic therapy - as she has been doing this past year. Discussed that due to estimated extent of disease 4 cm and prior radiation - in the setting of a recurrence in her situation, surgical excision would be a mastectomy. Discussed reconstruction. Discussed that mastectomy would leave her with a cosmetically unpleasing result to take out 4 cm and perhaps not get clear margins, as well as not a great candidate for breast re-irradiation. She physicallycan withstand a mastectomy We discussed surgical times, recover times, overnight stay, rhianna-operative management of her blood thinner, MATTI drains. She inquires about a double mastectomy for symmetry. Given her age, stage and co-morbitidies, I do not think that is a great option, I would only offer a left mastectomy at this time. She was given information about prosthesis. I would not remove lymph nodes - to prevent lymphedema as they are not avid on PET. Would need vascular medicine consult for plavix management for TIAs prior to surgery. She states she has been off for prior back surgeries without any issues. She and her with this about surgery and talk with Dr. Centeno. We will regroup by phone after her liver MRI to discuss her plan and answer any further questions on 06/03/23. She has our names and numbers to stay in touch if she has any questions, concerns or problems in the interim. Freda Matos, DO Breast Surgeon cc: Christiano Centeno [address] [facility] [address] Tami Chang MD ([facility]) [address] [facility] [address] [place] [address] documented in this encounterFort Hamilton Hospital11-30-2023 Nurse Note* Kelly Aguayo LPN - 05/05/2023 9:16 AM EST Patient was referred by: Did patient bring outside records to appt today? : No Last mammogram on: 03/16/23 bilateral Results: see report Is the patient active on [employer] Yes Electronically Signed By: Kelly Aguayo LPN In Department: [facility] REVIEW OF PATIENT HISTORY: OB History T2 L1 SAB0 IAB0 Ectopic0 Multiple0 Live Births0 Comment: .Menarche: 12; Age at 1st : 25; Post menopausal FAMILY HISTORY Problem Relation Age of Onset Colon Cancer Mother mets to stomach Stroke Father at age 62 Breast Cancer Sister 85 Heart disease Paternal Grandmother CAD PAST MEDICAL HISTORY Diagnosis Date Cancer (HCC) GI bleed 2008 Hypertension Liver nodule TIA (transient ischemic attack) 2012 PAST SURGICAL HISTORY Procedure Laterality Date COLONOSCOPY every 5 yrs due to f/h colon cqan all normal per pt EGD GERD EGD 09/01/2020 Repeat in 2 years INSJ TUNNELED CTR VAD W/SUBQ PORT AGE 5 YR/> 09/29/2020 PAST SURGICAL HISTORY OF thyroid removal PAST SURGICAL HISTORY OF left breast 2 episodes of DCIS PAST SURGICAL HISTORY OF back surgeries times 2 Social History Tobacco Use Smoking status: Former Years: 2 Types: Cigarettes Quit date: 09/16/1965 Years since quittin.6 Smokeless tobacco: Never Tobacco comments: Pt smoked 2-3 cigarettes daily x 2 years. Vaping Use Vaping Use: Never used Substance Use Topics Alcohol use: Yes Comment: moderate Drug use: No documented in this encounterFort Hamilton Hospital11-27-2023 Miscellaneous Notes* Telephone Encounter - Amy Grace LPN - 05/02/2023 1:04 PM EST Patient only wants 30 tabs at a time. Amy Grace LPN documented in this encounterFort Hamilton Hospital11-27-2023 Miscellaneous Notes* Telephone Encounter - Amy Grace LPN - 05/02/2023 8:55 AM EST Patient notified. Amy Grace LPN * Telephone Encounter - Christiano Centeno DO - 05/01/2023 3:06 PM EST Advise her not to take Tylenol same time as [place]. Should space them out by at least 6 hours. Christiano Centeno DO documented in this encounterFort Hamilton Hospital11-21-2023 Miscellaneous Notes* Telephone Encounter - Freda Tan - 04/26/2023 10:41 AM EST Spoke with patient and connected her to the [facility] for scheduling. * Telephone Encounter - Christiano Centeno DO - 04/26/2023 10:29 AM EST Thank you. Referral order filed. Christiano Centeno DO * Telephone Encounter - Amy Grace LPN - 04/26/2023 10:05 AM EST From result note- Her PET scan confirmed the only active site of cancer now is in the left breast. Ask her if she would like to discuss again surgery with Dr. Matos and we can make referral if she would like. Christiano Centeno DO I spoke with the patient and she is willing to see Dr. Matos to discuss possible surgery to weighher options. Dr. Centeno- Please file referral order. PSS- please contact patient to schedule appointment with Dr. Matos in [place]. Amy Grace LPN documented in this encounterFort Hamilton Hospital11-16-2023 History of Present illness Narrative* Richelle Wiggins, RT(R) - 04/21/2023 12:45 PM EST RADIOLOGY SERVICE PROGRESS NOTE SERVICE DATE: 04/21/2023 SERVICE TIME: 12:00 PM PATIENT IDENTITY VERIFICATION COMPLETED USING TWO (2) STANDARD IDENTIFIERS: Name and Date of confirmed by patient verbally FALL SCREENING: Has the patient had 2 falls in the last year or 1 fall with injury or currently using an Ambulatory Assistive Device (Walker, Cane, Wheelchair, Crutches, etc.)? No PATIENT GENDER DATA: .female ALLERGIES: Reviewed and unchanged MEDICATIONS REVIEWED: Not applicable PATIENT RELEVANT IMPLANT DATA REVIEWED: Not Applicable CREATININE: Creatinine Date Value Ref Range Status 04/05/2023 0.75 0.58 - 0.96 mg/dL Final 03/18/2023 0.62 0.58 - 0.96 mg/dL Final 02/23/2023 0.68 0.58 - 0.96 mg/dL Final Estimated Glomerular Filtration Rate Date Value Ref Range Status 04/05/2023 82 >=60 mL/min/1.73m Final Comment: Estimated Glomerular Filtration Rate (eGFR) is calculated using the 2020 CKD-EPI creatinine equation. This equation utilizes serum creatinine, sex, and age as parameters. The creatinine assay has traceable calibration to isotope dilution- mass spectrometry. Refer to KDIGO guidelines for clinical interpretation. In patients with unstable renal function, e.g. those with acute kidney injury, the eGFRmay not accurately reflect actual GFR. eGFR- Date Value Ref Range Status 07/27/2021 >60 Final P.O.C.T. RESULTS: N/A April 21, [address] PERFORMED: No IV SITE: Ambulatory: A peripheral IV was started in the Right antecubital site with a Angio cath: 22 gauge. POST EXAM PIV STATUS: Discontinued PROCEDURE TYPE: NM INJECT: PET/CT BODY SCAN. 7.2 mCi F18 Fluoroestradiol. No other medications given.. ADMINISTRATION TIME: 1155 PATIENT DISCHARGED TO: Ambulatory patient, left OR department area. A Diagnostic radioactive procedure has taken place, with no further precautions necessary other than routine body substance precautions. More information regarding radiation safety can be found usingthis link: [email or web address] SIGNATURE: RT Sabina(R) PATIENT NAME: Danette Bishop DATE: April 21, 2023 TIME: 12:00 PM PAGER/CONTACT #: documented in this encounterFort Hamilton Hospital11-14-2023 Miscellaneous Notes* Telephone Encounter - Ramila Bolaños RN - 04/19/2023 9:23 AM EST [facility] Care Coordination FOLLOW-UP NOTE Care Coordination Plan: left a detailed message on patient identified VM. Ramila Bolaños RN April 19, 2023 * Telephone Encounter - Christiano Centeno DO - 04/18/2023 5:44 PM EST Can let her know the echocardiogram shows normal heart pumping strength. Christiano Centeno DO documented in this encounterFort Hamilton Hospital11-04-2023 Miscellaneous Notes* Telephone Encounter - Amber Burrell - 04/09/2023 1:20 PM EDT 04/09 1st attempt, left vm for pt to call to schedule. * Telephone Encounter - Rosangela Teixeira RN - 04/07/2023 8:39 AM EDT Auth#:[id number] Date Range:04/07/2023 - 07/05/2023 for 1 dos 56559/ Cerianna A9591 C50.912, C78.7 NPI: Christiano Centeno [id number] Member ID :Deon [id number] INS Contact Number: Suzanna Intake: online Case/Ref#: [id number] Notes: submitted 15 pages clinical via fax to [phone] [facility] clinical review 04-08-23 per [facility] PET/Ct Nancytysonna scan approved auth [id number] from 04/07/2023 - 07/05/2023 for 1 dos * Telephone Encounter - Rosangela Teixeira RN - 04/07/2023 8:29 AM EDT Authorization number: William [id number] from 04/07/2023 - 07/05/2023 for 1 dos Authorization date range: William Primary Insurance: [place] [id number] Diagnosis: Local recurrence of cancer of left breast (HCC) [C50.912] 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) [C78.7] DX Imaging: CT/CTA: 01-19-23 and PET Scan: 02-16-22 Pathology: 08-21-20 Liver, right hepatic lobe mass, biopsy - Metastatic adenocarcinoma with prominent mucinous features 09-09-20 Left breast, needle core biopsy: - Invasive ductal carcinoma with mucinous features, provisional histologic grade 2 Labs: na Clinical Notes Reviewed: 04-06-23 hem Onc Date of last: Chemo Therapy Trastuzumab (Ontruzant). Letrozole. Began 03/2021. Additional Information: N/A Radiologist Reviewed: N/A Initial/Subsequent: Subsequent Treatment Strategy: [id number] PET Protocol: [facility] Requested: No Is this a Pretreatment and/or an initial Pet scan: No - Schedule as requested Comments for Aix Administrator: N/A ROUTE TO SCHEDULERS POOL P PET CABLE TENDER MC or P NM SPECIAL STUDIES MC * Telephone Encounter - Freda Tan - 04/06/2023 4:44 PM EDT This form is used for MAIN CAMPUS APPOINTMENTS ONLY. Is this request for a Main [place] PET scan appointment? Yes: Cricket Coach: Freda Tan Requesting Person (Last Name, First Name): FREDA TAN Area Code + Phone/Pager: [phone] Who do we call to schedule this appointment? Patient Requesting Staff CHRISTIANO CENTENO DO Area Code + Phone/Pager: [phone] PET Orders (A delay in scheduling will result if the orders are not present at time of review): Internal ADDITIONAL ACTION MAY BE REQUIRED IF PATIENTS OON INSURANCE OR SELF PAY COVERAGE HAS NOT BEEN CLEARED FOR REQUESTED APPOINTMENT. Scheduling: VONNIE: As soon as insurance will allow What account will this PET appointment be linked to? P/F Type of PET: Oncology: Are there additional diagnostic CT scans required to be done at time of PET scan? No Is the request for a PET MR ? No What account will diagnostic testing appointment be linked to? P/F Will the patient need anesthesia? NO Send requests to P COORD REVIEW [facility] documented in this encounterFort Hamilton Hospital11-01-2023 History of Present illness Narrative* Christiano Centeno DO - 04/06/2023 4:02 PM EDT Oncologic problem(s): 1) Metastatic ER-positive, HER2 positive breast cancer. HPI: The patient is a 78-year-old female with past medical history significant for hypertension, stroke (x2; not on ASA because of h/o bleeding ulcer) and DCIS. Treated for left sided DCIS with lumpectomy and radiation when living in [place] in 2012. Started on tamoxifen but had negative side effects then sounds like she was tried on an aromatase inhibitor but have musculoskeletal side effects and then stopped treatment. Had been getting routine mammography in [place] until 2013. Since has been getting mammogram at [facility]. Most recent was on 12/28/2019. Scattered benign calcifications were observed. There were no dense spiculated masses or suspicious microcalcifications identified. Fairly stable architectural distortion in the left breast with previous surgery. No skin thickening or retraction. Significant change from previous mammogram on 12/05/2018. She developed abdominal pain in July 2020. Initially had an ultrasound on 07/08/2020 that demonstrated a 2.7 x 3.2 x 2.6 cm hypoechoic solid nodule in the right lobe of liver. MRI Liver 08/08/2020: Liver: Multiple solid masses in the right lobe of the liver. Largest of these is seen within the peripheral right lobe of the liver and measures 2.5 x 2.5 cm. Biliary tract: The common bile duct is normal in course and caliber. No filling defect is identified within the common duct. Gallbladder: Unremarkable Pancreatic duct: 7 mm T2 bright lesion involving the pancreatic tail. No dilatation of the pancreatic duct. Spleen: No lesion is identified. Pancreas: The pancreas enhances normally and is without focal lesions. Adrenal glands: No mass is identified Kidneys: Simple appearing cortical cysts involving both kidneys. No hydronephrosis. Possible lesion involving the T6 vertebral body. Postsurgical change involving the left breast. No adenopathy is identified. Imaged lung bases are clear. No pericardial effusion or pericardial thickening. CT of chest, abdomen pelvis revealed no thoracic lymphadenopathy. There was a nonspecific scleroticdensity in the vertebral body of T6. Scarring was noted in the left breast. No pulmonary nodules. CT of the abdomen pelvis reveals scattered hepatic masses favoring metastatic disease. There is left lateral abdominal wall hernia containing nondilated descending colon. Biopsy one of the right lobe of the liver lesions performed on 08/21/2020. Pathology: Metastatic adenocarcinoma with prominent mucinous features. Tumor cells were positive for CK7 and GATA3 and negative for CK20, TTF-1 and Napsin a. ER staining showed weak positivity in approximately 10 to 20% of cells. MN was negative with 0% staining. HER-2 was positive at 3+ on immunohistochemistry stain. She has a history of Posadas's esophagus which was initially diagnosed in 2009. Her most recent EGDwas in 2019. That study was done to evaluate epigastric spasms. It was performed by Dr. Rahman with the GI group in [place]. Pathology on the biopsy specimen report was not available but patient said her symptoms stopped when she changed from omeprazole to ease omeprazole. She did not have dysphagia. No odynophagia. No heartburn per se. She denied nausea. She has IBS mostly manifested as constipation. She has chronic intermittent left upper quadrant pain that she attributes to gas. No signs of GI bleeding. Patient lost a son to suicide on July 2020. Underwent EGD on 09/01/2020. Esophageal mucosal changes secondary to established short segment Posadas's disease was present in the lower third esophagus. The maximal longitudinal extent of these changes was 6 mm in length. Biopsies were obtained with cold forceps for histology. The entire examined stomach and duodenum were normal. Pathology: Esophagus, distal, biopsy Cardio-oxyntic mucosa with no diagnostic abnormality. - Negative for intestinal metaplasia. Ultrasound left breast on 09/02/2020 identified a 1.7 x 0.9 x 0.6 cm lobulated mass in the left breast at 1:00 anterior depth. It was hypoechoic and correlated with the mammography findings. It was adjacent to the surgical scar. She was referred for and underwent biopsy on 09/09/2020. Pathology: A. Left breast, needle core biopsy: - Invasive ductal carcinoma with mucinous features, provisional histologic grade 2 (see comment). Estrogen Receptor (ER) Positive (40%) Stain intensity: Moderate to strong Progesterone Receptor (PgR) Positive (1-5%) Stain intensity: Weak HER2 (ERBB2) IMMUNOHISTOCHEMISTRY ASSAY Interpretation: POSITIVE for HER2 (ERBB2) Expression Score: 3+ Whole body bone scan 09/04/2020: Whole body bone scan and spot images demonstrate moderately increased uptake at T12-L1, L4-5 and left L5 facet, corresponding to moderate degenerative change of the thoracolumbar spine and postsurgical change of L4-5 interbody fusion and pedicle alla and screws fixation of the left L4-5 on the abdomen and pelvic CT. Specifically, no abnormally increased or decreased uptake is identified in the mid thoracic spine to correspond to 1.4 cm T6 sclerotic lesion on recent chest CT. There is increased uptake involving both shoulders, sternoclavicular joints, left upper cervical spine, hips, knees, and ankles in a pattern most compatible with degenerative/arthritic disease. If clinically indicated, correlation with radiographs could be obtained at clinical discretion. No other areas of abnormal focal, regional or segmental osseous uptake are seen to suggest the presence of osseous metastatic lesions. INDETERMINATE 1.4 CM T6 SCLEROTIC LESION WITHOUT ASSOCIATED ABNORMAL TRACER UPTAKE IDENTIFIED. MRI thoracic spine 10/02/2020: IMPRESSION: T6 sclerotic focus. Given the lack of activity on the recent bone scan, this is most likely not an active metastatic lesion and may reflect a bone island. No evidence of metastatic disease to the thoracic vertebral bodies. Numerous hepatic metastatic lesions have been evaluated with CT recently. Previous therapy: 1) Docetaxel, pertuzumab and trastuzumab. 2) Trastuzumab and Pertuzumab. Current therapy: 1) Trastuzumab (Ontruzant). 2) Letrozole. Began 03/2021. Presents for ongoing oncologic management. Interim history: Continues to tolerate Herceptin very well. LBP fluctuates. B/L pain over greater trochanters. No cardiovascular symptoms. Normal appetite. No nausea or reflux. Occasional RUQ abdominal pain. PMH, medications and allergies personally reviewed by me today. Any changes documented in appropriate section. ROS: Constitutional: Denies episodes of fever and night sweats. Neuro: Denies ROMERO, dizziness and imbalance. Denies symptoms of neuropathy. HEENT: No recent change in voice, vision or hearing. Resp: Denies cough, wheeze and hemoptysis. CVS: See above. : Denies dysuria or gross hematuria. No symptoms of bladder outlet obstruction. Endo: Denies hot flashes. Denies polyuria and polydipsia. Denies heat and cold intolerance. Derm: Denies rash. Denies jaundice and diffuse pruritis. Heme: Denies unusual bleeding and unexplained bruising. Psych: Normal mood. PHYSICAL EXAM: VITALS: Blood pressure 123/71, pulse 76, temperature 36.7 C (98 F), SpO2 98 %. EYES: Sclerae are anicteric bilaterally. LYMPHATIC: There is no palpable cervical, supraclavicular or axillary adenopathy. RESPIRATORY: Inspiratory breath sounds are of normal intensity in all james. No rales, wheezes or rhonchi. CARDIOVASCULAR: Rhythm is regular. BREAST: Alicia Padilla, DUTY MANAGER, AGNP-C chaperoned. The left breast appears larger. In sitting position, nipple deviated more downward. Area of tumor lateral to previous scar more tender. ABDOMEN: No abdominal distention. Extremities: No swelling or edema. SKIN: No jaundice or rash. NEUROLOGIC: supervisor filling and packing II-XII are grossly intact. No focal motor weakness. LABS: ASSESSMENT/PLAN: (C50.919, Z17.0) Malignant neoplasm of breast in female, estrogen receptor positive, unspecified laterality, unspecified site of breast (HCC) (primary encounter diagnosis) (C78.7) Liver metastases (HCC) Assessment: -The patient is a 77-year-old female with a past medical history significant for hypertension, TIA and Posadas's esophagus, history of bleeding gastric ulcer as well as DCIS of the left breast who was found to have metastatic adenocarcinoma consistent with breast primary after presenting with epigastric pain. -Breast biopsy revealed invasive carcinoma with ER/MN and HER-2 status the same as the sample from liver biopsy. -KPS is 90%. -She is tolerating trastuzumab well. -TB discussion / recommendations: After review and discussion of patient presentation, the following thoughts / recommendations were made. 1) Would not recommend mastectomy at this time; may need to consider local therapy in the future ifthere is progression locally 2) Recommend following liver lesions with MRI liver every 3-6 months 3) If liver appears stable, consider repeat mammogram. -Reviewed labs. Answered questions she had regarding lab work. She inquired about breast cancer tumor markers. Explained that I typically only use those in patients with bone only metastases from breast cancer. Her disease is radiographically measurable. -Consider Zometa. -Reviewed diagnostic mammogram and ultrasound results. Tumor in the breast is measuring larger thanbaseline 2 and half years ago. Discussed plan to obtain FES PET and potential referral to breast cancer surgery for reconsideration of surgery. Plan: -Continue letrozole. -Continue trastuzumab. -FES PET. -Monitor CBC & CMP every 3 weeks & OV in 6 weeks. -Update bone density at next OV. Portions of this documentation were copied and pasted from previous office visit notes in order to provide a cohesive continuity of the history. The note has been reviewed and edited and updated as necessary. I spent a total of 40 minutes on the date of the service which included preparing to see the patient, [id number] patient care, completing clinical documentation, obtaining and/or reviewing separately obtained history, performing a medically appropriate examination, counseling and educating the pat ient/family/caregiver, ordering medications, tests, or procedures, communicating with other HCPs (not separately reported), and communicating results to the patient/family/caregiver. Christiano Centeno DO documented in this encounterFort Hamilton Hospital10-11-2023 History of Present illness Narrative* Natalie Leggett RDMS - 03/16/2023 2:30 PM EDT Radiology Service Progress Note PATIENT NAME: Danette Bishop DATE OF SERVICE: March 16, 2023 TIME: 4:52 PM PATIENT IDENTITY VERIFICATION COMPLETED USING TWO (2) IDENTIFIERS: Name and Date of confirmedby patient verbally. FALL SCREENING: Has the patient had 2 falls in the last year or 1 fall with injury or currently using an Ambulatory Assistive Device (Walker, Cane, Wheelchair, Crutches, etc.)? No PATIENT GENDER DATA: Female. status: : No status: NO. PATIENT RELEVANT IMPLANT DATA REVIEWED: Not Applicable RADIOLOGY DEPARTMENT: Ultrasound PERIPHERAL IV DATA: Not applicable SIGNED BY: Natalie Leggett RDMS RVT March 16, 2023 4:52 PM documented in this encounterFort Hamilton Hospital10-11-2023 History of Present illness Narrative* Davide Neil Mammo Tech - 03/16/2023 1:30 PM EDT Radiology Service Progress Note PATIENT NAME: Danette Bishop DATE OF SERVICE: March 16, 2023 TIME: 1:17 PM PATIENT IDENTITY VERIFICATION COMPLETED USING TWO (2) IDENTIFIERS: Name and Date of confirmedby patient verbally. FALL SCREENING: Has the patient had 2 falls in the last year or 1 fall with injury or currently using an Ambulatory Assistive Device (Walker, Cane, Wheelchair, Crutches, etc.)? No PATIENT GENDER DATA: Female. status: : No status: NO. PATIENT RELEVANT IMPLANT DATA REVIEWED: Not Applicable RADIOLOGY DEPARTMENT: Mammography PERIPHERAL IV DATA: Not applicable SIGNED BY: Davide Neil Mammo Tech March 16, 2023 1:17 PM documented in this encounterFort Hamilton Hospital09-20-2023 History of Present illness Narrative* Christiano Centeno DO - 02/23/2023 9:56 AM EDT Oncologic problem(s): 1) Metastatic ER-positive, HER2 positive breast cancer. HPI: The patient is a 77-year-old female with past medical history significant for hypertension, stroke (x2; not on ASA because of h/o bleeding ulcer) and DCIS. Treated for left sided DCIS with lumpectomy and radiation when living in [place] in 2012. Started on tamoxifen but had negative side effects then sounds like she was tried on an aromatase inhibitor but have musculoskeletal side effects and then stopped treatment. Had been getting routine mammography in [place] until 2014. Since has been getting mammogram at [facility]. Most recent was on 12/28/2019. Scattered benign calcifications were observed. There were no dense spiculated masses or suspicious microcalcifications identified. Fairly stable architectural distortion in the left breast with previous surgery. No skin thickening or retraction. Significant change from previous mammogram on 12/05/2018. She developed abdominal pain in July 2020. Initially had an ultrasound on 07/08/2020 that demonstrated a 2.7 x 3.2 x 2.6 cm hypoechoic solid nodule in the right lobe of liver. MRI Liver 08/08/2020: Liver: Multiple solid masses in the right lobe of the liver. Largest of these is seen within the peripheral right lobe of the liver and measures 2.5 x 2.5 cm. Biliary tract: The common bile duct is normal in course and caliber. No filling defect is identified within the common duct. Gallbladder: Unremarkable Pancreatic duct: 7 mm T2 bright lesion involving the pancreatic tail. No dilatation of the pancreatic duct. Spleen: No lesion is identified. Pancreas: The pancreas enhances normally and is without focal lesions. Adrenal glands: No mass is identified Kidneys: Simple appearing cortical cysts involving both kidneys. No hydronephrosis. Possible lesion involving the T6 vertebral body. Postsurgical change involving the left breast. No adenopathy is identified. Imaged lung bases are clear. No pericardial effusion or pericardial thickening. CT of chest, abdomen pelvis revealed no thoracic lymphadenopathy. There was a nonspecific scleroticdensity in the vertebral body of T6. Scarring was noted in the left breast. No pulmonary nodules. CT of the abdomen pelvis reveals scattered hepatic masses favoring metastatic disease. There is left lateral abdominal wall hernia containing nondilated descending colon. Biopsy one of the right lobe of the liver lesions performed on 08/21/2020. Pathology: Metastatic adenocarcinoma with prominent mucinous features. Tumor cells were positive for CK7 and GATA3 and negative for CK20, TTF-1 and Napsin a. ER staining showed weak positivity in approximately 10 to 20% of cells. MN was negative with 0% staining. HER-2 was positive at 3+ on immunohistochemistry stain. 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 Her most recent EGDwas in 2019. That study was done to evaluate epigastric spasms. It was performed by Dr. Rahman with the GI group in [place]. Pathology on the biopsy specimen report was not available but patient said her symptoms stopped when she changed from omeprazole to ease omeprazole. She did not have dysphagia. No odynophagia. No heartburn per se. She denied nausea. She has IBS mostly manifested as constipation. She has chronic intermittent left upper quadrant pain that she attributes to gas. No signs of GI bleeding. Patient lost a son to suicide on July 2020. Underwent EGD on 09/01/2020. Esophageal mucosal changes secondary to established short segment Posadas's disease was present in the lower third esophagus. The maximal longitudinal extent of these changes was 6 mm in length. Biopsies were obtained with cold forceps for histology. The entire examined stomach and duodenum were normal. Pathology: Esophagus, distal, biopsy Cardio-oxyntic mucosa with no diagnostic abnormality. - Negative for intestinal metaplasia. Ultrasound left breast on 09/02/2020 identified a 1.7 x 0.9 x 0.6 cm lobulated mass in the left breast at 1:00 anterior depth. It was hypoechoic and correlated with the mammography findings. It was adjacent to the surgical scar. She was referred for and underwent biopsy on 09/09/2020. Pathology: A. Left breast, needle core biopsy: - Invasive ductal carcinoma with mucinous features, provisional histologic grade 2 (see comment). Estrogen Receptor (ER) Positive (40%) Stain intensity: Moderate to strong Progesterone Receptor (PgR) Positive (1-5%) Stain intensity: Weak HER2 (ERBB2) IMMUNOHISTOCHEMISTRY ASSAY Interpretation: POSITIVE for HER2 (ERBB2) Expression Score: 3+ Whole body bone scan 09/04/2020: Whole body bone scan and spot images demonstrate moderately increased uptake at T12-L1, L4-5 and left L5 facet, corresponding to moderate degenerative change of the thoracolumbar spine and postsurgical change of L4-5 interbody fusion and pedicle alla and screws fixation of the left L4-5 on the abdomen and pelvic CT. Specifically, no abnormally increased or decreased uptake is identified in the mid thoracic spine to correspond to 1.4 cm T6 sclerotic lesion on recent chest CT. There is increased uptake involving both shoulders, sternoclavicular joints, left upper cervical spine, hips, knees, and ankles in a pattern most compatible with degenerative/arthritic disease. If clinically indicated, correlation with radiographs could be obtained at clinical discretion. No other areas of abnormal focal, regional or segmental osseous uptake are seen to suggest the presence of osseous metastatic lesions. INDETERMINATE 1.4 CM T6 SCLEROTIC LESION WITHOUT ASSOCIATED ABNORMAL TRACER UPTAKE IDENTIFIED. MRI thoracic spine 10/02/2020: IMPRESSION: T6 sclerotic focus. Given the lack of activity on the recent bone scan, this is most likely not an active metastatic lesion and may reflect a bone island. No evidence of metastatic disease to the thoracic vertebral bodies. Numerous hepatic metastatic lesions have been evaluated with CT recently. Previous therapy: 1) Docetaxel, pertuzumab and trastuzumab. 2) Trastuzumab and Pertuzumab. Current therapy: 1) Trastuzumab (Ontruzant). 2) Letrozole. Began 03/2021. Presents for ongoing oncologic management. Interim history: Saw med uro at [facility] for recurrent UTI. She continues to tolerate Herceptin very well. LBP fluctuates. No cardiovascular symptoms. Good appetite. No nausea or reflux. Occasional abdominal pain. PMH, medications and allergies personally reviewed by me today. Any changes documented in appropriate section. ROS: Constitutional: Denies episodes of fever and night sweats. Neuro: Denies ROMERO, dizziness and imbalance. Denies symptoms of neuropathy. HEENT: No recent change in voice, vision or hearing. Resp: Denies cough, wheeze and hemoptysis. CVS: See above. : Denies dysuria or gross hematuria. No symptoms of bladder outlet obstruction. Endo: Denies hot flashes. Denies polyuria and polydipsia. Denies heat and cold intolerance. Musculoskeletal: OA. Derm: Denies rash. Denies jaundice and diffuse pruritis. Heme: Denies unusual bleeding and unexplained bruising. Psych: Normal mood. PHYSICAL EXAM: VITALS: Blood pressure 129/76, pulse 78, temperature 36.3 C (97.3 F), temperature source Temporal, weight 70.5 kg (155 lb 8 oz), SpO2 97 %. EYES: Sclerae are anicteric bilaterally. LYMPHATIC: There is no palpable cervical, supraclavicular or axillary adenopathy. RESPIRATORY: Inspiratory breath sounds are of normal intensity in all james. No rales, wheezes or rhonchi. CARDIOVASCULAR: Rhythm is regular. BREAST: Carmen Sims, LPH chaperoned. No change in the tumor in the lower central portion of the left breast. ABDOMEN: No abdominal distention. Extremities: No swelling or edema. SKIN: No jaundice or rash. NEUROLOGIC: supervisor filling and packing II-XII are grossly intact. No focal motor weakness. LABS: Component Latest Ref Rng & Units 02/23/2023 WBC 3.70 - 11.00 k/uL 6.81 RBC 3.90 - 5.20 m/uL 3.99 Hemoglobin 11.5 - 15.5 g/dL 11.7 Hematocrit 36.0 - 46.0 % 34.8 (L) MCV 80.0 - 100.0 fL 87.2 MCH 26.0 - 34.0 pg 29.3 MCHC 30.5 - 36.0 g/dL 33.6 RDW-CV 11.5 - 15.0 % 15.4 (H) Platelet Count 150 - 400 k/uL 316 MPV 9.0 - 12.7 fL 9.5 Neut% % 69.8 Abs Neut (ANC) 1.45 - 7.50 k/uL 4.75 Lymph% % 21.7 Abs Lymph 1.00 - 4.00 k/uL 1.48 [place]% % 5.7 Abs [place] <0.87 k/uL 0.39 Eosin% % 1.3 Abs Eosin <0.46 k/uL 0.09 Baso% % 1.2 Abs Baso <0.11 k/uL 0.08 Immature Gran % % 0.3 IMMATURE GRANS (ABS) <0.10 k/uL <0.03 NRBC /100 WBC 0.0 Absolute nRBC <0.01 k/uL <0.01 DTYPE Auto ASSESSMENT/PLAN: (C50.919, Z17.0) Malignant neoplasm of breast in female, estrogen receptor positive, unspecified laterality, unspecified site of breast (HCC) (primary encounter diagnosis) (C78.7) Liver metastases (HCC) Assessment: -The patient is a 77-year-old female with a past medical history significant for hypertension, TIA and Posadas's esophagus, history of bleeding gastric ulcer as well as DCIS of the left breast who was found to have metastatic adenocarcinoma consistent with breast primary after presenting with epigastric pain. -Breast biopsy revealed invasive carcinoma with ER/MN and HER-2 status the same as the sample from liver biopsy. -KPS is 90%. -She is tolerating trastuzumab well. -TB discussion / recommendations: After review and discussion of patient presentation, the following thoughts / recommendations were made. 1) Would not recommend mastectomy at this time; may need to consider local therapy in the future ifthere is progression locally 2) Recommend following liver lesions with MRI liver every 3-6 months 3) If liver appears stable, consider repeat mammogram. -Reviewed labs. -Consider Zometa. Plan: -Continue letrozole. -Continue trastuzumab. -Repeat MRI abdomen and CT chest and echocardiogram in April. -Mammogram. -PET if evidence progression. -Monitor CBC & CMP every 3 weeks & OV in 6 weeks. -Update bone density at next OV. Portions of this documentation were copied and pasted from previous office visit notes in order to provide a cohesive continuity of the history. The note has been reviewed and edited and updated as necessary. I spent a total of 25 minutes on the date of the service which included preparing to see the patient, [id number] patient care, completing clinical documentation, obtaining and/or reviewing separately obtained history, performing a medically appropriate examination, counseling and educating the pat ient/family/caregiver, ordering medications, tests, or procedures, communicating with other HCPs (not separately reported), and communicating results to the patient/family/caregiver. Christiano Centeno DO documented in this encounterFort [facility] Hospital08-16-[facility]23 History of Present illness Narrative* Eveline Gaitan RT(R) - 01/19/2023 2:20 PM EDT Radiology Service Progress Note PATIENT NAME: Danette Bishop DATE OF SERVICE: January 19, 2023 TIME: 2:41 PM PATIENT IDENTITY VERIFICATION COMPLETED USING TWO (2) IDENTIFIERS: Name and Date of confirmedby patient verbally. FALL SCREENING: Has the patient had 2 falls in the last year or 1 fall with injury or currently using an Ambulatory Assistive Device (Walker, Cane, Wheelchair, Crutches, etc.)? No PATIENT GENDER DATA: Female. status: : No status: NO. PATIENT RELEVANT IMPLANT DATA REVIEWED: Yes RADIOLOGY DEPARTMENT: MR; Exam(s) Completed: Body: Liver (routine) PERIPHERAL IV DATA: Site assessment: Clean,Dry and Intact, Site disposition Discontinued SIGNED BY: RT Luisa(R) January 19, 2023 2:41 PM documented in this encounterFort [facility] Hospital08-09-2023 History of Present illness Narrative* Christiano Centeno, - 01/12/2023 10:35 AM EDT Oncologic problem(s): 1) Metastatic ER-positive, HER2 positive breast cancer. HPI: The patient is a 77-year-old female with past medical history significant for hypertension, stroke (x2; not on ASA because of h/o bleeding ulcer) and DCIS. Treated for left sided DCIS with lumpectomy and radiation when living in [place] in 2012. Started on tamoxifen but had negative side effects then sounds like she was tried on an aromatase inhibitor but have musculoskeletal side effects and then stopped treatment. Had been getting routine mammography in [place] until 2013. Since has been getting mammogram at [facility]. Most recent was on 12/28/2019. Scattered benign calcifications were observed. There were no dense spiculated masses or suspicious microcalcifications identified. Fairly stable architectural distortion in the left breast with previous surgery. No skin thickening or retraction. Significant change from previous mammogram on 12/05/2018. She developed abdominal pain in July 2020. Initially had an ultrasound on 07/08/2020 that demonstrated a 2.7 x 3.2 x 2.6 cm hypoechoic solid nodule in the right lobe of liver. MRI Liver 08/08/2020: Liver: Multiple solid masses in the right lobe of the liver. Largest of these is seen within the peripheral right lobe of the liver and measures 2.5 x 2.5 cm. Biliary tract: The common bile duct is normal in course and caliber. No filling defect is identified within the common duct. Gallbladder: Unremarkable Pancreatic duct: 7 mm T2 bright lesion involving the pancreatic tail. No dilatation of the pancreatic duct. Spleen: No lesion is identified. Pancreas: The pancreas enhances normally and is without focal lesions. Adrenal glands: No mass is identified Kidneys: Simple appearing cortical cysts involving both kidneys. No hydronephrosis. Possible lesion involving the T6 vertebral body. Postsurgical change involving the left breast. No adenopathy is identified. Imaged lung bases are clear. No pericardial effusion or pericardial thickening. CT of chest, abdomen pelvis revealed no thoracic lymphadenopathy. There was a nonspecific scleroticdensity in the vertebral body of T6. Scarring was noted in the left breast. No pulmonary nodules. CT of the abdomen pelvis reveals scattered hepatic masses favoring metastatic disease. There is left lateral abdominal wall hernia containing nondilated descending colon. Biopsy one of the right lobe of the liver lesions performed on 08/21/2020. Pathology: Metastatic adenocarcinoma with prominent mucinous features. Tumor cells were positive for CK7 and GATA3 and negative for CK20, TTF-1 and Napsin a. ER staining showed weak positivity in approximately 10 to 20% of cells. MN was negative with 0% staining. HER-2 was positive at 3+ on immunohistochemistry stain. 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 Her most recent EGDwas in 2019. That study was done to evaluate epigastric spasms. It was performed by Dr. Rahman with the GI group in [place]. Pathology on the biopsy specimen report was not available but patient said her symptoms stopped when she changed from omeprazole to ease omeprazole. She did not have dysphagia. No odynophagia. No heartburn per se. She denied nausea. She has IBS mostly manifested as constipation. She has chronic intermittent left upper quadrant pain that she attributes to gas. No signs of GI bleeding. Patient lost a son to suicide on July 2020. Underwent EGD on 09/01/2020. Esophageal mucosal changes secondary to established short segment Posadas's disease was present in the lower third esophagus. The maximal longitudinal extent of these changes was 6 mm in length. Biopsies were obtained with cold forceps for histology. The entire examined stomach and duodenum were normal. Pathology: Esophagus, distal, biopsy Cardio-oxyntic mucosa with no diagnostic abnormality. - Negative for intestinal metaplasia. Ultrasound left breast on 09/02/2020 identified a 1.7 x 0.9 x 0.6 cm lobulated mass in the left breast at 1:00 anterior depth. It was hypoechoic and correlated with the mammography findings. It was adjacent to the surgical scar. She was referred for and underwent biopsy on 09/09/2020. Pathology: A. Left breast, needle core biopsy: - Invasive ductal carcinoma with mucinous features, provisional histologic grade 2 (see comment). Estrogen Receptor (ER) Positive (40%) Stain intensity: Moderate to strong Progesterone Receptor (PgR) Positive (1-5%) Stain intensity: Weak HER2 (ERBB2) IMMUNOHISTOCHEMISTRY ASSAY Interpretation: POSITIVE for HER2 (ERBB2) Expression Score: 3+ Whole body bone scan 09/04/2020: Whole body bone scan and spot images demonstrate moderately increased uptake at T12-L1, L4-5 and left L5 facet, corresponding to moderate degenerative change of the thoracolumbar spine and postsurgical change of L4-5 interbody fusion and pedicle alla and screws fixation of the left L4-5 on the abdomen and pelvic CT. Specifically, no abnormally increased or decreased uptake is identified in the mid thoracic spine to correspond to 1.4 cm T6 sclerotic lesion on recent chest CT. There is increased uptake involving both shoulders, sternoclavicular joints, left upper cervical spine, hips, knees, and ankles in a pattern most compatible with degenerative/arthritic disease. If clinically indicated, correlation with radiographs could be obtained at clinical discretion. No other areas of abnormal focal, regional or segmental osseous uptake are seen to suggest the presence of osseous metastatic lesions. INDETERMINATE 1.4 CM T6 SCLEROTIC LESION WITHOUT ASSOCIATED ABNORMAL TRACER UPTAKE IDENTIFIED. MRI thoracic spine 10/02/2020: IMPRESSION: T6 sclerotic focus. Given the lack of activity on the recent bone scan, this is most likely not an active metastatic lesion and may reflect a bone island. No evidence of metastatic disease to the thoracic vertebral bodies. Numerous hepatic metastatic lesions have been evaluated with CT recently. Previous therapy: 1) Docetaxel, pertuzumab and trastuzumab. 2) Trastuzumab and Pertuzumab. Current therapy: 1) Trastuzumab (Ontruzant). 2) Letrozole. Began 03/2021. Presents for ongoing oncologic management. Interim history: Saw surgeon at [facility]. Pain was better, so opted not to do EGD. She continues to tolerate Herceptin very well. Not participating in [facility]--no groups for MBC. LBP fluctuates. No cardiovascular symptoms. PMH, medications and allergies personally reviewed by me today. Any changes documented in appropriate section. ROS: Constitutional: Denies episodes of fever and night sweats. Neuro: Denies ROMERO, dizziness and imbalance. Denies symptoms of neuropathy. HEENT: No recent change in voice, vision or hearing. Resp: Denies cough, wheeze and hemoptysis. CVS: See above. : Denies dysuria or gross hematuria. No symptoms of bladder outlet obstruction. Endo: Denies hot flashes. Denies polyuria and polydipsia. Denies heat and cold intolerance. Musculoskeletal: OA. Derm: Denies rash. Denies jaundice and diffuse pruritis. Heme: Denies unusual bleeding and unexplained bruising. Psych: Normal mood. PHYSICAL EXAM: VITALS: BP 129/78 Pulse 85 Temp 99.2 Wt 154 lb 8 oz (70.1kg) SpO2 97% EYES: Sclerae are anicteric bilaterally. LYMPHATIC: There is no palpable cervical, supraclavicular or axillary adenopathy. RESPIRATORY: Inspiratory breath sounds are of normal intensity in all james. No rales, wheezes or rhonchi. CARDIOVASCULAR: Rhythm is regular. 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 No change in the tumor in the lower central portion of the leftbreast. ABDOMEN: No abdominal distention. Extremities: No swelling or edema. SKIN: No jaundice or rash. NEUROLOGIC: supervisor filling and packing II-XII are grossly intact. No focal motor weakness. LABS: Component Latest Ref Rng & Units 01/12/2023 WBC 3.70 - 11.00 k/uL 5.25 RBC 3.90 - 5.20 m/uL 4.42 Hemoglobin 11.5 - 15.5 g/dL 12.7 Hematocrit 36.0 - 46.0 % 38.4 MCV 80.0 - 100.0 fL 86.9 MCH 26.0 - 34.0 pg 28.7 MCHC 30.5 - 36.0 g/dL 33.1 RDW-CV 11.5 - 15.0 % 15.2 (H) Platelet Count 150 - 400 k/uL 345 MPV 9.0 - 12.7 fL 9.3 Neut% % 48.2 Abs Neut (ANC) 1.45 - 7.50 k/uL 2.53 Lymph% % 40.4 Abs Lymph 1.00 - 4.00 k/uL 2.12 [place]% % 6.3 Abs [place] <0.87 k/uL 0.33 Eosin% % 3.4 Abs Eosin <0.46 k/uL 0.18 Baso% % 1.5 Abs Baso <0.11 k/uL 0.08 Immature Gran % % 0.2 IMMATURE GRANS (ABS) <0.10 k/uL <0.03 NRBC /100 WBC 0.0 Absolute nRBC <0.01 k/uL <0.01 DTYPE Auto Protein, Total 6.3 - 8.0 g/dL 7.0 Albumin 3.9 - 4.9 g/dL 4.1 Calcium 8.5 - 10.2 mg/dL 9.2 Bilirubin, Total 0.2 - 1.3 mg/dL 0.8 Alkaline Phosphatase 34 - 123 U/L 85 AST 13 - 35 U/L 17 ALT 7 - 38 U/L 12 Glucose 74 - 99 mg/dL 111 (H) BUN 7 - 21 mg/dL 21 Creatinine 0.58 - 0.96 mg/dL 0.79 Sodium 136 - 144 mmol/L 134 (L) Potassium 3.7 - 5.1 mmol/L 4.2 Chloride 97 - 105 mmol/L 102 CO2 22 - 30 mmol/L 22 Anion Gap 9 - 18 mmol/L 10 eGFR >=60 mL/min/1.73m 77 ASSESSMENT/PLAN: (C50.919, Z17.0) Malignant neoplasm of breast in female, estrogen receptor positive, unspecified laterality, unspecified site of breast (HCC) (primary encounter diagnosis) (C78.7) Liver metastases (HCC) Assessment: -The patient is a 77-year-old female with a past medical history significant for hypertension, TIA and Posadas's esophagus, history of bleeding gastric ulcer as well as DCIS of the left breast who was found to have metastatic adenocarcinoma consistent with breast primary after presenting with epigastric pain. -Breast biopsy revealed invasive carcinoma with ER/MN and HER-2 status the same as the sample from liver biopsy. -KPS is 90%. -She is tolerating trastuzumab well. -TB discussion / recommendations: After review and discussion of patient presentation, the following thoughts / recommendations were made. 1) Would not recommend mastectomy at this time; may need to consider local therapy in the future ifthere is progression locally 2) Recommend following liver lesions with MRI liver every 3-6 months 3) If liver appears stable, consider repeat mammogram. -Answered questions she had regarding original pathology and imaging studies. -Reviewed labs. -Consider Zometa. Plan: -Continue letrozole. -Continue trastuzumab. -Rotate from Cymbalta back to Prozac. -Repeat MRI abdomen and CT chest and echocardiogram this month--scheduled. -May consider repeat PET at that time. -Monitor CBC & CMP every 3 weeks & OV in 6 weeks. 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 -Was seen by Dr. Huitron at [facility]--EGD not advised since symptoms improved. Plan: -Continue Nexium 40 mg daily. -Follow up with PCP. Portions of this documentation were copied and pasted from previous office visit notes in order to provide a cohesive continuity of the history. The note has been reviewed and edited and updated as necessary. I spent a total of 25 minutes on the date of the service which included preparing to see the patient, [id number] patient care, completing clinical documentation, obtaining and/or reviewing separately obtained history, performing a medically appropriate examination, counseling and educating the pat ient/family/caregiver, ordering medications, tests, or procedures, communicating with other HCPs (not separately reported), and communicating results to the patient/family/caregiver. Christiano Centeno DO documented in this encounterFort [facility] Hospital08-07-2023 Miscellaneous Notes* Telephone Encounter - Freda Tan - 01/10/2023 3:31 PM EDT Spoke with patient and scheduled. Freda Tan * Telephone Encounter - Freda Tan - 01/05/2023 3:11 PM EDT Spoke with patient and advised that we will talk w/ furniture technician to see about working in the patient and then we would schedule all 3 tests. Freda Tan * Telephone Encounter - Ramila Bolaños RN - 01/05/2023 9:35 AM EDT Patient informed she will be contacted to schedule MRI, CT, and ECHO. Ramila Bolaños RN * Telephone Encounter - Amy Grace LPN - 01/04/2023 8:26 AM EDT PSS- please schedule as directed below. Amy Grace LPN * Telephone Encounter - Christiano Centeno DO - 01/03/2023 4:49 PM EDT Thank you. Orders filed. Christiano Centeno DO * Telephone Encounter - Ramila Bolaños RN - 01/03/2023 4:[address] Centeno's last OV notes from 12/01/22: -Repeat MRI abdomen and CT chest and echocardiogram in January. Patient will need above scheduled. Dr. Centeno- no orders were placed at last OV. Please review pended orders and sign. Ramila Bolaños RN documented in this encounterFort Hamilton Hospital08-02-2023 Miscellaneous Notes* Telephone Encounter - Ramila Bolaños RN - 01/05/2023 9:32 AM EDT Patient informed of Dr. Centeno's response regarding that she is not MATT. Patient had a partial response and her disease is stable. Patient stated understanding of this. Ramila Bolaños RN documented in this encounterFort Hamilton Hospital07-23-2023 Discharge summary Author Stefano Chanel [facility] December 26, 2022 4:40pm Note Date/Time December 26, 2022 4:32 pm [facility] Medical Records Department [address] [place] [address] Emergency Department Summary 12/26/22 MR#: [id number] Acct: [id number] Name: DANETTE BISHOP Rep #:[id number] 1945 77 From: Stefano Chanel MD PCP: Dr. Tami Chang MD Status:REG ER Location: ED HPI History of Present Illness Chief Complaint: Eye Problem Informant: patient Onset/Context/Timing Location: Left Eye Onset: Today Context: Sudden Onset Timing: Continuous Current Severity: Moderate Maximum Severity: Moderate Associated Symptoms Associated Symptoms - Eyes: Foreign body sensation Narrative Narrative: 77-year-old female sudden onset of foreign body sensation and discomfort in her left eye. She was sitting indoors when this happened. No obvious etiology. Does not wear contacts. No vision changes. Recently underwent chemotherapy formetastatic breast cancer, her eyelashes fell out and have been gradually coming back in. [facility] Medical History Arthritis Back pain 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 History of cancer History of hypertension History of thyroid disease History of TIA (transient ischemic attack) Liver metastasis Neck pain Severe headache Sleep apnea Stomach ulcer Wears dentures Home Medications clopidogrel 75 mg tablet 75 mg PO ONCE 06/16/17 [History Last Taken 09/22/20] fluoxetine 40 mg capsule 40 mg PO QDAY 06/16/17 [History Last Taken Unknown] zolpidem 10 mg tablet 10 mg PO QHS 30 days ##30 06/16/17 [History Last Taken Unknown] liothyronine 5 mcg tablet 5 mcg PO DAILY 07/15/17 [History Last Taken 09/29/20 04:30] esomeprazole magnesium 20 mg capsule,delayed release 20 mg PO DAILY 09/25/20 [History Last Taken Unknown] lisinopril 20 mg tablet 20 mg PO DAILY 09/25/20 [History Last Taken 09/29/20 06:30] cholecalciferol (vitamin D3) 50 mcg (2,000 unit) capsule 50 mcg PO DAILY 06/11/21 [History Last Taken Unknown] levothyroxine 125 mcg tablet 112 mcg PO DAILY 30 days #27 tabs 06/11/21 [History Last Taken Unknown] sennosides 8.6 mg tablet (Senokot) 8.6 mg PO DAILY 06/11/21 [History Last Taken Unknown] hydrocodone-acetaminophen 5-325mg 5mg-325mg ea PO 07/16/22 [History Last Taken Unknown] alprazolam 0.5 mg tablet 0.5 mg PO DAILY PRN 07/21/22 [History Last Taken Unknown] Allergy/AdvReac Type Severity Reaction Status Date / Time shellfish derived Allergy Severe throat Verified 12/26/22 15:53 swelling adhesive tape AdvReac Rash Verified 12/26/22 15:53 petrolatum,white AdvReac Rash Verified 12/26/22 15:53 [From A and D Barrier] Family History (Updated 07/21/22 @ 10:04 by Arleth Alfonso) Mother Colon cancer passed from recurrence Thyroid disorder Father Hypertension CVA (cerebral vascular accident) Sister Breast cancer, Onset Age: 87 Aunt Colon cancer paternal Surgical History History of back surgery History of lumpectomy History of thyroid surgery Social History household members: spouse Smoking Status: Former smoker how long ago did patient quit smoking: >50 years ago; off and on for 2 years, socially only alcohol intake: current alcohol intake frequency: 0-2 drinks per day Alcohol type: wine details: socially substance use type: does not use ROS ROS ED Constitutional Constitutional ED: Denies chills or fever(s) Eyes Eyes: Reports as per HPI and eye pain ENT ENT ED: Denies ear pain, rhinorrhea or sore throat Neurologic Neurologic: Denies headache(s), paresthesias or weakness EXAM Physical Exam Const Vital Signs: 12/26/22 15:53 Temperature 97.1 F L Temperature Source Temporal Pulse Rate 87 Respiratory Rate 20 H Blood Pressure 159/73 H Blood Pressure Mean 101 Pulse Ox 98 Oxygen Delivery Method Room Air Positive well nourished and well developed General Appearance ED: well developed and NAD HEENT atraumatic; Negative for tenderness Mouth ED: Yes oral and palatal mucosa normal and Yes lips normal Mouth: oral and palatal mucosa normal and lips normal Eyes PERRL and EOMs intact bilaterally Eyes Narrative: Left eye: Eyelid everted no foreign body seen, inspected profusely and under slit lamp. Dyed with fluorescein dye, there is superficial styles dominik patterneddye uptake on the lower half of the cornea, there is no dendritic pattern. No foreign material. Anterior chamber deep and quiet, no cell or flare seen, and no foreign material seen on conjunctive a. Neuro oriented x3, CN's II-XII intact bilaterally and gait normal Sensorium / Orientation: alert Skin Lesions: no lesions Rashes: no rashes MDM MDM MDM Narrative Medical decision making narrative: I suspect this is a corneal abrasion due to her trying to get out an eyelash from her eye. Some of them are growing in toward the cornea and actually her sitting and fluorescein dye when I stained her. Discussed with Dr. Sharp with ophthalmology who agrees with this, she is given antibiotic ointment and will follow-up as an outpatient. Discharge Plan Triage Chief Complaint: Eye Problem ED Provider: Stefano Chanel Dx/Rx/DC Orders Clinical Impression: Abrasion of left cornea Instructions: ED Corneal Abrasion Prescriptions: No Action zolpidem 10 mg tablet 10 mg PO QHS 30 Days Qty: 30 Patient Comments: TAKE 1 TABLET BY MOUTH AT BEDTIME clopidogrel 75 mg tablet 75 mg PO ONCE fluoxetine 40 mg capsule 40 mg PO QDAY levothyroxine 125 mcg tablet 112 mcg PO DAILY 30 Days Qty: 27 Patient Comments: TAKE 1 TABLET EVERY DAY cholecalciferol (vitamin D3) 50 mcg (2,000 unit) capsule 50 mcg PO DAILY sennosides [Senokot] 8.6 mg tablet 8.6 mg PO DAILY hydrocodone-acetaminophen 5-325 mg tablet PO Patient Comments: TAKE 1-2 TABLETS BY MOUTH EVERY 6 HOURS NEEDED FOR PAIN FOR UP TO 5 DAYS. alprazolam 0.5 mg tablet 0.5 mg PO DAILY PRN liothyronine 5 MCG tablet 5 mcg PO DAILY lisinopril 20 MG tablet 20 mg PO DAILY esomeprazole magnesium 20 MG capsule,delayed release(DR/EC) 20 mg PO DAILY Primary Care Provider: Tami Chang Referrals: Tami Chang MD [Primary Care Provider] - Nemesio Sharp MD [Med Staff - Active Staff] - 2 Days Activity Restrictions/Additional Instructions: Use antibiotic ointment every 6-8 hours, about 3 times per day while awake and/or as needed. Insert on your lower lid, and then blink it in. Disposition Disposition: Home, Self Care What to do if you have Problems For any increased pain, shortness of breath, bleeding, nausea or vomiting, chestpain, or any unexpected problems, contact your Primary Care Provider. Call [facility] ([phone]) or report to the closest Emergency Room. Call 911 if necessary. 12/26/22 1640 <Electronically signed by Stefano Chanel MD> Cosigner Signature (if applicable): CC: Dr. Tami Chang MD; Dr. Nemesio Sharp MD ~ Signed [facility] Work Phone: [phone]) 233-566607-23-2023 Hospital Discharge instructions Additional Instructions Use antibiotic ointment every 6-8 hours, about 3 times per day while awake and/or as needed. Insert on your lower lid, and then blink it in.[facility] Work Phone: [phone]) 610-611007-12-2023 Miscellaneous Notes* Telephone Encounter - Amy Grace LPN - 12/15/2022 6:01 PM EDT Referral faxed. Amy Grace LPN * Telephone Encounter - Christiano Centeno DO - 12/15/2022 5:19 PM EDT Yes. Christiano Centeno DO * Telephone Encounter - Amy Grace LPN - 12/15/2022 3:57 PM EDT Okay to refer to [facility]? Amy Grace LPN documented in this encounterFort Hamilton Hospital07-05-2023 Miscellaneous Notes* Telephone Encounter - Amy Grace LPN - 12/08/2022 2:54 PM EDT Referral was not sent (not in check-out notes). Referral sent today. Patient notified. Amy Grace LPN * Telephone Encounter - Fatimah Carcamojose Pss - 12/08/2022 2:27 PM EDT Patient called asking if referral went to Dr. Messina's office from last OV with Dr. Centeno. Please advise. documented in this encounterFort Hamilton Hospital06-28-2023 History of Present illness Narrative* Christiano Centeno, - 12/01/2022 8:46 AM EDT Oncologic problem(s): 1) Metastatic ER-positive, HER2 positive breast cancer. HPI: The patient is a 77-year-old female with past medical history significant for hypertension, stroke (x2; not on ASA because of h/o bleeding ulcer) and DCIS. Treated for left sided DCIS with lumpectomy and radiation when living in [place] in 2012. Started on tamoxifen but had negative side effects then sounds like she was tried on an aromatase inhibitor but have musculoskeletal side effects and then stopped treatment. Had been getting routine mammography in [place] until 2013. Since has been getting mammogram at [facility]. Most recent was on 12/28/2019. Scattered benign calcifications were observed. There were no dense spiculated masses or suspicious microcalcifications identified. Fairly stable architectural distortion in the left breast with previous surgery. No skin thickening or retraction. Significant change from previous mammogram on 12/05/2018. She developed abdominal pain in July 2020. Initially had an ultrasound on 07/08/2020 that demonstrated a 2.7 x 3.2 x 2.6 cm hypoechoic solid nodule in the right lobe of liver. MRI Liver 08/08/2020: Liver: Multiple solid masses in the right lobe of the liver. Largest of these is seen within the peripheral right lobe of the liver and measures 2.5 x 2.5 cm. Biliary tract: The common bile duct is normal in course and caliber. No filling defect is identified within the common duct. Gallbladder: Unremarkable Pancreatic duct: 7 mm T2 bright lesion involving the pancreatic tail. No dilatation of the pancreatic duct. Spleen: No lesion is identified. Pancreas: The pancreas enhances normally and is without focal lesions. Adrenal glands: No mass is identified Kidneys: Simple appearing cortical cysts involving both kidneys. No hydronephrosis. Possible lesion involving the T6 vertebral body. Postsurgical change involving the left breast. No adenopathy is identified. Imaged lung bases are clear. No pericardial effusion or pericardial thickening. CT of chest, abdomen pelvis revealed no thoracic lymphadenopathy. There was a nonspecific scleroticdensity in the vertebral body of T6. Scarring was noted in the left breast. No pulmonary nodules. CT of the abdomen pelvis reveals scattered hepatic masses favoring metastatic disease. There is left lateral abdominal wall hernia containing nondilated descending colon. Biopsy one of the right lobe of the liver lesions performed on 08/21/2020. Pathology: Metastatic adenocarcinoma with prominent mucinous features. Tumor cells were positive for CK7 and GATA3 and negative for CK20, TTF-1 and Napsin a. ER staining showed weak positivity in approximately 10 to 20% of cells. MN was negative with 0% staining. HER-2 was positive at 3+ on immunohistochemistry stain. 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 Her most recent EGDwas in 2019. That study was done to evaluate epigastric spasms. It was performed by Dr. Rahman with the GI group in [place]. Pathology on the biopsy specimen report was not available but patient said her symptoms stopped when she changed from omeprazole to ease omeprazole. She did not have dysphagia. No odynophagia. No heartburn per se. She denied nausea. She has IBS mostly manifested as constipation. She has chronic intermittent left upper quadrant pain that she attributes to gas. No signs of GI bleeding. Patient lost a son to suicide on July 2020. Underwent EGD on 09/01/2020. Esophageal mucosal changes secondary to established short segment Posadas's disease was present in the lower third esophagus. The maximal longitudinal extent of these changes was 6 mm in length. Biopsies were obtained with cold forceps for histology. The entire examined stomach and duodenum were normal. Pathology: Esophagus, distal, biopsy Cardio-oxyntic mucosa with no diagnostic abnormality. - Negative for intestinal metaplasia. Ultrasound left breast on 09/02/2020 identified a 1.7 x 0.9 x 0.6 cm lobulated mass in the left breast at 1:00 anterior depth. It was hypoechoic and correlated with the mammography findings. It was adjacent to the surgical scar. She was referred for and underwent biopsy on 09/09/2020. Pathology: A. Left breast, needle core biopsy: - Invasive ductal carcinoma with mucinous features, provisional histologic grade 2 (see comment). Estrogen Receptor (ER) Positive (40%) Stain intensity: Moderate to strong Progesterone Receptor (PgR) Positive (1-5%) Stain intensity: Weak HER2 (ERBB2) IMMUNOHISTOCHEMISTRY ASSAY Interpretation: POSITIVE for HER2 (ERBB2) Expression Score: 3+ Whole body bone scan 09/04/2020: Whole body bone scan and spot images demonstrate moderately increased uptake at T12-L1, L4-5 and left L5 facet, corresponding to moderate degenerative change of the thoracolumbar spine and postsurgical change of L4-5 interbody fusion and pedicle alla and screws fixation of the left L4-5 on the abdomen and pelvic CT. Specifically, no abnormally increased or decreased uptake is identified in the mid thoracic spine to correspond to 1.4 cm T6 sclerotic lesion on recent chest CT. There is increased uptake involving both shoulders, sternoclavicular joints, left upper cervical spine, hips, knees, and ankles in a pattern most compatible with degenerative/arthritic disease. If clinically indicated, correlation with radiographs could be obtained at clinical discretion. No other areas of abnormal focal, regional or segmental osseous uptake are seen to suggest the presence of osseous metastatic lesions. INDETERMINATE 1.4 CM T6 SCLEROTIC LESION WITHOUT ASSOCIATED ABNORMAL TRACER UPTAKE IDENTIFIED. MRI thoracic spine 10/02/2020: IMPRESSION: T6 sclerotic focus. Given the lack of activity on the recent bone scan, this is most likely not an active metastatic lesion and may reflect a bone island. No evidence of metastatic disease to the thoracic vertebral bodies. Numerous hepatic metastatic lesions have been evaluated with CT recently. Previous therapy: 1) Docetaxel, pertuzumab and trastuzumab. 2) Trastuzumab and Pertuzumab. Current therapy: 1) Trastuzumab (Ontruzant). 2) Letrozole. Began 03/2021. Presents for ongoing oncologic management. Interim history: She continues to tolerate Herceptin very well. Joined [facility] via virtual participation. Generated many questions about her disease course and treatment. Worsening LBP. Two previous surgeries. Tristin had been helping. She is working with her PCP on this. No cardiovascular symptoms. Her biggest complaint today is epigastric pain. She has had this off and on for a long time but is becoming more persistent. It particularly hurts when she is lying on her stomach at night. Can hurt during the day and radiates out under both costal margins. She has been on PPI for a long time and currently takes Nexium 40 mg daily. She has breakthrough reflux. She has a history of Posadas's esophagus. She has occasional dysphagia. She takes Plavix for history of TIA. No longer takes aspirin because she has had bleeding ulcers in the past. PMH, medications and allergies personally reviewed by me today. Any changes documented in appropriate section. ROS: Constitutional: Denies episodes of fever and night sweats. Neuro: Denies ROMERO, dizziness and imbalance. Denies symptoms of neuropathy. HEENT: No recent change in voice, vision or hearing. Resp: Denies cough, wheeze and hemoptysis. CVS: See above. : Denies dysuria or gross hematuria. No symptoms of bladder outlet obstruction. Endo: Denies hot flashes. Denies polyuria and polydipsia. Denies heat and cold intolerance. Musculoskeletal: OA. Derm: Denies rash. Denies jaundice and diffuse pruritis. Heme: Denies unusual bleeding and unexplained bruising. Psych: Normal mood. PHYSICAL EXAM: VITALS: BP 110/66 Pulse 90 Temp (Src) 97.3 (Temporal) Wt 154 lb 8 oz (70.1kg) SpO2 100% EYES: Sclerae are anicteric bilaterally. LYMPHATIC: There is no palpable cervical, supraclavicular or axillary adenopathy. RESPIRATORY: Inspiratory breath sounds are of normal intensity in all james. No rales, wheezes or rhonchi. CARDIOVASCULAR: Rhythm is regular. 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 No change in the tumor in the lower central portion of the leftbreast--softer and smaller compared to start. ABDOMEN: No abdominal distention. Extremities: No swelling or edema. SKIN: No jaundice or rash. NEUROLOGIC: supervisor filling and packing II-XII are grossly intact. No focal motor weakness. LABS: Component Latest Ref Rng & Units 10/20/2022 WBC 3.70 - 11.00 k/uL 5.02 RBC 3.90 - 5.20 m/uL 4.11 Hemoglobin 11.5 - 15.5 g/dL 12.3 Hematocrit 36.0 - 46.0 % 36.1 MCV 80.0 - 100.0 fL 87.8 MCH 26.0 - 34.0 pg 29.9 MCHC 30.5 - 36.0 g/dL 34.1 RDW-CV 11.5 - 15.0 % 15.1 (H) Platelet Count 150 - 400 k/uL 318 MPV 9.0 - 12.7 fL 9.5 Neut% % 50.8 Abs Neut (ANC) 1.45 - 7.50 k/uL 2.55 Lymph% % 37.8 Abs Lymph 1.00 - 4.00 k/uL 1.90 [place]% % 6.8 Abs [place] <0.87 k/uL 0.34 Eosin% % 3.2 Abs Eosin <0.46 k/uL 0.16 Baso% % 1.2 Abs Baso <0.11 k/uL 0.06 Immature Gran % % 0.2 IMMATURE GRANS (ABS) <0.10 k/uL <0.03 NRBC /100 WBC 0.0 Absolute nRBC <0.01 k/uL <0.01 DTYPE Auto Protein, Total 6.3 - 8.0 g/dL 6.6 Albumin 3.9 - 4.9 g/dL 4.2 Calcium 8.5 - 10.2 mg/dL 9.4 Bilirubin, Total 0.2 - 1.3 mg/dL 0.6 Alkaline Phosphatase 34 - 123 U/L 84 AST 13 - 35 U/L 15 ALT 7 - 38 U/L 14 Glucose 74 - 99 mg/dL 103 (H) BUN 7 - 21 mg/dL 15 Creatinine 0.58 - 0.96 mg/dL 0.77 Sodium 136 - 144 mmol/L 136 Potassium 3.7 - 5.1 mmol/L 4.2 Chloride 97 - 105 mmol/L 101 CO2 22 - 30 mmol/L 27 Anion Gap 9 - 18 mmol/L 8 (L) eGFR >=60 mL/min/1.73m 80 ASSESSMENT/PLAN: (C50.919, Z17.0) Malignant neoplasm of breast in female, estrogen receptor positive, unspecified laterality, unspecified site of breast (HCC) (primary encounter diagnosis) (C78.7) Liver metastases (HCC) Assessment: -The patient is a 77-year-old female with a past medical history significant for hypertension, TIA and Posadas's esophagus, history of bleeding gastric ulcer as well as DCIS of the left breast who was found to have metastatic adenocarcinoma consistent with breast primary after presenting with epigastric pain. -Breast biopsy revealed invasive carcinoma with ER/MN and HER-2 status the same as the sample from liver biopsy. -KPS is 90%. -She is tolerating trastuzumab well. -TB discussion / recommendations: After review and discussion of patient presentation, the following thoughts / recommendations were made. 1) Would not recommend mastectomy at this time; may need to consider local therapy in the future ifthere is progression locally 2) Recommend following liver lesions with MRI liver every 3-6 months 3) If liver appears stable, consider repeat mammogram. -Answered questions she had regarding original pathology and imaging studies. -Reviewed labs with her. -Reviewed the results of the MRI, CT chest and echocardiogram. Stable disease. Normal cardiac function with no change. Plan: -Continue letrozole. -Continue trastuzumab. -Continue Cymbalta 60 mg daily. -Repeat MRI abdomen and CT chest and echocardiogram in January. -May consider repeat PET at that time. -Monitor CBC & CMP every 3 weeks & OV in 6 weeks. 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 Now getting breakthrough epigastric pain and reflux symptoms on Nexium 40 mg daily. Continues on Plavix. No hematemesis. Does not take aspirin or nonsteroidals. -Most recent EGD was in 2020. Plan: -Continue Nexium 40 mg daily. -Referral to Dr. Messina for EGD. Portions of this documentation were copied and pasted from previous office visit notes in order to provide a cohesive continuity of the history. The note has been reviewed and edited and updated as necessary. I spent a total of 30 minutes on the date of the service which included preparing to see the patient, [id number] patient care, completing clinical documentation, obtaining and/or reviewing separately obtained history, performing a medically appropriate examination, counseling and educating the pat ient/family/caregiver, ordering medications, tests, or procedures, communicating with other HCPs (not separately reported), and communicating results to the patient/family/caregiver. Christiano Centeno DO documented in this encounterFort Hamilton Hospital06-28-2023 History of Present illness Narrative* Michelle Angel RN - 12/01/2022 8:25 AM EDT Patient is here for IVAD port flush/blood draw per [facility] protocol. IVAD is located in right upper chest. Site cleansed with Chloraprep IVAD accessed with a #20 gauge 3/4" non-coring Gripper needle Flush with 5cc's Normal Saline. Blood Return: Good. 10 cc's blood aspirated and discarded. Blood drawn for CBC and CMP. Flushed with: 20 ml Normal Saline and 5 ml Heparin Lock Flush. Non-coring needle removed. Paper tape and 2x2 gauze applied to puncture site. Site negative for redness, edema or tenderness. Patient tolerated procedure well. documented in this encounterFort Hamilton Hospital06-07-2023 History of Present illness Narrative* Anushka Conner RN - 11/10/2022 10:04 AM EDT Patient is here for IVAD port flush/blood draw. IVAD is located in right upper chest. Site cleansed with Chloraprep IVAD accessed with a #20 gauge 3/4" non-coring Gripper needle Flush with 5cc's Normal Saline. Blood Return: Good. 10 cc's blood aspirated and discarded. Blood drawn for CBC and CMP. Flushed with: 20 ml Normal Saline and 5 ml Heparin Lock Flush. Non-coring needle removed. Paper tape applied to puncture site. Site negative for redness, edema or tenderness. Patient tolerated procedure well. Anushka Conner RN documented in this encounterFort Hamilton Hospital05-11-2023 History of Present illness Narrative* Vania Domingo, RT(R) - 10/14/2022 10:00 AM EDT Radiology Service Progress Note PATIENT NAME: Danette Bishop DATE OF SERVICE: October 14, 2022 TIME: 3:06 PM PATIENT IDENTITY VERIFICATION COMPLETED USING TWO (2) IDENTIFIERS: Name and Date of confirmedby patient verbally. FALL SCREENING: Has the patient had 2 falls in the last year or 1 fall with injury or currently using an Ambulatory Assistive Device (Walker, Cane, Wheelchair, Crutches, etc.)? No PATIENT GENDER DATA: Female. status: : No status: NO. PATIENT RELEVANT IMPLANT DATA REVIEWED: Yes RADIOLOGY DEPARTMENT: CT; Exam(s) Completed: Chest PERIPHERAL IV DATA: Not applicable SIGNED BY: RT Kraig(R) October 14, 2022 3:06 PM documented in this encounterFort Hamilton Hospital05-10-2023 Miscellaneous Notes* Telephone Encounter - Lexii Rincon Pss - 10/13/2022 10:35 AM EDT I called and spoke to Deepika and scheduled her for a port access appointment at 8:45 am, she confirmedthis date & time. Lexii Rincon Pss * Telephone Encounter - DANIEL Cali - 10/13/2022 10:09 AM EDT Pt would like to use port for appt on 10/14/22 for MRI pt has appt for Echo at 8 , MRI at 9:[address] at 10 Please call pt to let her know what time this is scheduled please documented in this encounterFort Hamilton Hospital04-05-2023 History of Present illness Narrative* Christiano Centeno, - 09/08/2022 10:19 AM EDT Oncologic problem(s): 1) Metastatic ER-positive, HER2 positive breast cancer. HPI: The patient is a 77-year-old female with past medical history significant for hypertension, stroke (x2; not on ASA because of h/o bleeding ulcer) and DCIS. Treated for left sided DCIS with lumpectomy and radiation when living in [place] in 2012. Started on tamoxifen but had negative side effects then sounds like she was tried on an aromatase inhibitor but have musculoskeletal side effects and then stopped treatment. Had been getting routine mammography in [place] until 2014. Since has been getting mammogram at [facility]. Most recent was on 12/28/2019. Scattered benign calcifications were observed. There were no dense spiculated masses or suspicious microcalcifications identified. Fairly stable architectural distortion in the left breast with previous surgery. No skin thickening or retraction. Significant change from previous mammogram on 12/05/2018. She developed abdominal pain in July 2020. Initially had an ultrasound on 07/08/2020 that demonstrated a 2.7 x 3.2 x 2.6 cm hypoechoic solid nodule in the right lobe of liver. MRI Liver 08/08/2020: Liver: Multiple solid masses in the right lobe of the liver. Largest of these is seen within the peripheral right lobe of the liver and measures 2.5 x 2.5 cm. Biliary tract: The common bile duct is normal in course and caliber. No filling defect is identified within the common duct. Gallbladder: Unremarkable Pancreatic duct: 7 mm T2 bright lesion involving the pancreatic tail. No dilatation of the pancreatic duct. Spleen: No lesion is identified. Pancreas: The pancreas enhances normally and is without focal lesions. Adrenal glands: No mass is identified Kidneys: Simple appearing cortical cysts involving both kidneys. No hydronephrosis. Possible lesion involving the T6 vertebral body. Postsurgical change involving the left breast. No adenopathy is identified. Imaged lung bases are clear. No pericardial effusion or pericardial thickening. CT of chest, abdomen pelvis revealed no thoracic lymphadenopathy. There was a nonspecific scleroticdensity in the vertebral body of T6. Scarring was noted in the left breast. No pulmonary nodules. CT of the abdomen pelvis reveals scattered hepatic masses favoring metastatic disease. There is left lateral abdominal wall hernia containing nondilated descending colon. Biopsy one of the right lobe of the liver lesions performed on 08/21/2020. Pathology: Metastatic adenocarcinoma with prominent mucinous features. Tumor cells were positive for CK7 and GATA3 and negative for CK20, TTF-1 and Napsin a. ER staining showed weak positivity in approximately 10 to 20% of cells. MN was negative with 0% staining. HER-2 was positive at 3+ on immunohistochemistry stain. 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 Her most recent EGDwas in 2018. That study was done to evaluate epigastric spasms. It was performed by Dr. Rahman with the GI group in [place]. Pathology on the biopsy specimen report was not available but patient said her symptoms stopped when she changed from omeprazole to ease omeprazole. She did not have dysphagia. No odynophagia. No heartburn per se. She denied nausea. She has IBS mostly manifested as constipation. She has chronic intermittent left upper quadrant pain that she attributes to gas. No signs of GI bleeding. Patient lost a son to suicide on July 2020. Underwent EGD on 09/01/2020. Esophageal mucosal changes secondary to established short segment Posadas's disease was present in the lower third esophagus. The maximal longitudinal extent of these changes was 6 mm in length. Biopsies were obtained with cold forceps for histology. The entire examined stomach and duodenum were normal. Pathology: Esophagus, distal, biopsy Cardio-oxyntic mucosa with no diagnostic abnormality. - Negative for intestinal metaplasia. Ultrasound left breast on 09/02/2020 identified a 1.7 x 0.9 x 0.6 cm lobulated mass in the left breast at 1:00 anterior depth. It was hypoechoic and correlated with the mammography findings. It was adjacent to the surgical scar. She was referred for and underwent biopsy on 09/09/2020. Pathology: A. Left breast, needle core biopsy: - Invasive ductal carcinoma with mucinous features, provisional histologic grade 2 (see comment). Estrogen Receptor (ER) Positive (40%) Stain intensity: Moderate to strong Progesterone Receptor (PgR) Positive (1-5%) Stain intensity: Weak HER2 (ERBB2) IMMUNOHISTOCHEMISTRY ASSAY Interpretation: POSITIVE for HER2 (ERBB2) Expression Score: 3+ Whole body bone scan 09/04/2020: Whole body bone scan and spot images demonstrate moderately increased uptake at T12-L1, L4-5 and left L5 facet, corresponding to moderate degenerative change of the thoracolumbar spine and postsurgical change of L4-5 interbody fusion and pedicle alla and screws fixation of the left L4-5 on the abdomen and pelvic CT. Specifically, no abnormally increased or decreased uptake is identified in the mid thoracic spine to correspond to 1.4 cm T6 sclerotic lesion on recent chest CT. There is increased uptake involving both shoulders, sternoclavicular joints, left upper cervical spine, hips, knees, and ankles in a pattern most compatible with degenerative/arthritic disease. If clinically indicated, correlation with radiographs could be obtained at clinical discretion. No other areas of abnormal focal, regional or segmental osseous uptake are seen to suggest the presence of osseous metastatic lesions. INDETERMINATE 1.4 CM T6 SCLEROTIC LESION WITHOUT ASSOCIATED ABNORMAL TRACER UPTAKE IDENTIFIED. MRI thoracic spine 10/02/2020: IMPRESSION: T6 sclerotic focus. Given the lack of activity on the recent bone scan, this is most likely not an active metastatic lesion and may reflect a bone island. No evidence of metastatic disease to the thoracic vertebral bodies. Numerous hepatic metastatic lesions have been evaluated with CT recently. Previous therapy: 1) Docetaxel, pertuzumab and trastuzumab. 2) Trastuzumab and Pertuzumab. Current therapy: 1) Trastuzumab (Ontruzant). 2) Letrozole. Began 03/2021. Presents for ongoing oncologic management. Interim history: She continues to tolerate Herceptin very well. Started Cymbalta. Helping with chronic lower back pain and hip bursitis pain. Can stand longer. Mood better. Appetite normal. No cardiovascular symptoms. No vertigo since last seen. More constipated lately. PMH, medications and allergies personally reviewed by me today. Any changes documented in appropriate section. ROS: Constitutional: Denies episodes of fever and night sweats. Neuro: Denies ROMERO, dizziness and imbalance. Denies symptoms of neuropathy. HEENT: No recent change in voice, vision or hearing. Resp: Denies cough, wheeze and hemoptysis. CVS: See above. : Denies dysuria or gross hematuria. No symptoms of bladder outlet obstruction. Endo: Denies hot flashes. Denies polyuria and polydipsia. Denies heat and cold intolerance. Musculoskeletal: OA. Derm: Denies rash. Denies jaundice and diffuse pruritis. Heme: Denies unusual bleeding and unexplained bruising. Psych: Normal mood. PHYSICAL EXAM: VITALS: BP 125/78 Pulse 90 Temp (Src) 96.6 (Temporal) Wt 150 lb (68.0kg) SpO2 96% EYES: Sclerae are anicteric bilaterally. LYMPHATIC: There is no palpable cervical, supraclavicular or axillary adenopathy. RESPIRATORY: Inspiratory breath sounds are of normal intensity in all james. No rales, wheezes or rhonchi. CARDIOVASCULAR: Rhythm is regular. 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 No change in the tumor in the lower central portion of the leftbreast--softer and smaller compared to start. ABDOMEN: No abdominal distention. Extremities: No swelling or edema. SKIN: No jaundice or rash. NEUROLOGIC: supervisor filling and packing II-XII are grossly intact. No focal motor weakness. MUSCULOSKELETAL: Point tender over greater trochanter left side. LABS: Component Latest Ref Rng & Units 08/18/2022 09/08/2022 WBC 3.70 - 11.00 k/uL 5.12 4.86 RBC 3.90 - 5.20 m/uL 4.28 4.24 Hemoglobin 11.5 - 15.5 g/dL 12.5 12.5 Hematocrit 36.0 - 46.0 % 37.9 37.2 MCV 80.0 - 100.0 fL 88.6 87.7 MCH 26.0 - 34.0 pg 29.2 29.5 MCHC 30.5 - 36.0 g/dL 33.0 33.6 RDW-CV 11.5 - 15.0 % 14.7 14.8 Platelet Count 150 - 400 k/uL 332 325 MPV 9.0 - 12.7 fL 9.6 9.7 Neut% % 52.0 52.0 Abs Neut (ANC) 1.45 - 7.50 k/uL 2.66 2.53 Lymph% % 36.9 37.7 Abs Lymph 1.00 - 4.00 k/uL 1.89 1.83 [place]% % 7.0 6.4 Abs [place] <0.87 k/uL 0.36 0.31 Eosin% % 2.1 2.3 Abs Eosin <0.46 k/uL 0.11 0.11 Baso% % 1.8 1.4 Abs Baso <0.11 k/uL 0.09 0.07 Immature Gran % % 0.2 0.2 IMMATURE GRANS (ABS) <0.10 k/uL <0.03 <0.03 NRBC /100 WBC 0.0 0.0 Absolute nRBC <0.01 k/uL <0.01 <0.01 DTYPE Auto Auto Protein, Total 6.3 - 8.0 g/dL 6.7 Albumin 3.9 - 4.9 g/dL 4.2 Calcium 8.5 - 10.2 mg/dL 9.0 Bilirubin, Total 0.2 - 1.3 mg/dL 0.7 Alkaline Phosphatase 34 - 123 U/L 78 AST 13 - 35 U/L 18 ALT 7 - 38 U/L 14 Glucose 74 - 99 mg/dL 92 BUN 7 - 21 mg/dL 15 Creatinine 0.58 - 0.96 mg/dL 0.81 Sodium 136 - 144 mmol/L 135 (L) Potassium 3.7 - 5.1 mmol/L 4.0 Chloride 97 - 105 mmol/L 100 CO2 22 - 30 mmol/L 25 Anion Gap 9 - 18 mmol/L 10 eGFR >=60 mL/min/1.73m 75 ASSESSMENT/PLAN: (C50.919, Z17.0) Malignant neoplasm of breast in female, estrogen receptor positive, unspecified laterality, unspecified site of breast (HCC) (primary encounter diagnosis) (C78.7) Liver metastases (HCC) Assessment: -The patient is a 76-year-old female with a past medical history significant for hypertension, TIA and Posadas's esophagus, history of bleeding gastric ulcer as well as DCIS of the left breast who was found to have metastatic adenocarcinoma consistent with breast primary after presenting with epigastric pain. -Breast biopsy revealed invasive carcinoma with ER/MN and HER-2 status the same as the sample from liver biopsy. -KPS is 90%. -She is tolerating trastuzumab well. -TB discussion / recommendations: After review and discussion of patient presentation, the following thoughts / recommendations were made. 1) Would not recommend mastectomy at this time; may need to consider local therapy in the future ifthere is progression locally 2) Recommend following liver lesions with MRI liver every 3-6 months 3) If liver appears stable, consider repeat mammogram. -Cymbalta working very nicely for her left hip trochanteric bursitis as well as her mood. -Reviewed labs with her. Plan: -Continue letrozole. -Continue trastuzumab. -Continue Cymbalta 60 mg daily. -Stop oral iron supplementation to help with constipation. -MRI liver in prior to next OV. -Repeat echocardiogram prior to next OV. -Monitor CBC & CMP every 3 weeks & OV in 6 weeks. Portions of this documentation were copied and pasted from previous office visit notes in order to provide a cohesive continuity of the history. The note has been reviewed and edited and updated as necessary. I spent a total of 20 minutes on the date of the service which included preparing to see the patient, [id number] patient care, completing clinical documentation, obtaining and/or reviewing separately obtained history, performing a medically appropriate examination, counseling and educating the pat ient/family/caregiver, ordering medications, tests, or procedures, and communicating results to thepatient/family/caregiver. Christiano Centeno DO Cc: Tami Chang MD documented in this encounterFort [facility]03-06-2023 Miscellaneous Notes* Telephone Encounter - Amy Grace LPN - 08/09/2022 1:08 PM EST Rx pended. Amy Grace LPN documented in this encounterFort Hamilton Hospital01-11-2023 History of Present illness Narrative* Christiano Centeno DO - 06/16/2022 10:42 AM EST Oncologic problem(s): 1) Metastatic ER-positive, HER2 positive breast cancer. HPI: The patient is a 77-year-old female with past medical history significant for hypertension, stroke (x2; not on ASA because of h/o bleeding ulcer) and DCIS. Treated for left sided DCIS with lumpectomy and radiation when living in [place] in 2012. Started on tamoxifen but had negative side effects then sounds like she was tried on an aromatase inhibitor but have musculoskeletal side effects and then stopped treatment. Had been getting routine mammography in [place] until 2013. Since has been getting mammogram at [facility]. Most recent was on 12/28/2019. Scattered benign calcifications were observed. There were no dense spiculated masses or suspicious microcalcifications identified. Fairly stable architectural distortion in the left breast with previous surgery. No skin thickening or retraction. Significant change from previous mammogram on 12/05/2018. She developed abdominal pain in July 2020. Initially had an ultrasound on 07/08/2020 that demonstrated a 2.7 x 3.2 x 2.6 cm hypoechoic solid nodule in the right lobe of liver. MRI Liver 08/08/2020: Liver: Multiple solid masses in the right lobe of the liver. Largest of these is seen within the peripheral right lobe of the liver and measures 2.5 x 2.5 cm. Biliary tract: The common bile duct is normal in course and caliber. No filling defect is identified within the common duct. Gallbladder: Unremarkable Pancreatic duct: 7 mm T2 bright lesion involving the pancreatic tail. No dilatation of the pancreatic duct. Spleen: No lesion is identified. Pancreas: The pancreas enhances normally and is without focal lesions. Adrenal glands: No mass is identified Kidneys: Simple appearing cortical cysts involving both kidneys. No hydronephrosis. Possible lesion involving the T6 vertebral body. Postsurgical change involving the left breast. No adenopathy is identified. Imaged lung bases are clear. No pericardial effusion or pericardial thickening. CT of chest, abdomen pelvis revealed no thoracic lymphadenopathy. There was a nonspecific scleroticdensity in the vertebral body of T6. Scarring was noted in the left breast. No pulmonary nodules. CT of the abdomen pelvis reveals scattered hepatic masses favoring metastatic disease. There is left lateral abdominal wall hernia containing nondilated descending colon. Biopsy one of the right lobe of the liver lesions performed on 08/21/2020. Pathology: Metastatic adenocarcinoma with prominent mucinous features. Tumor cells were positive for CK7 and GATA3 and negative for CK20, TTF-1 and Napsin a. ER staining showed weak positivity in approximately 10 to 20% of cells. MN was negative with 0% staining. HER-2 was positive at 3+ on immunohistochemistry stain. She has a history of Posadas's esophagus which was initially diagnosed in 2009. Her most recent EGDwas in 2019. That study was done to evaluate epigastric spasms. It was performed by Dr. Rahman with the GI group in [place]. Pathology on the biopsy specimen report was not available but patient said her symptoms stopped when she changed from omeprazole to ease omeprazole. She did not have dysphagia. No odynophagia. No heartburn per se. She denied nausea. She has IBS mostly manifested as constipation. She has chronic intermittent left upper quadrant pain that she attributes to gas. No signs of GI bleeding. Patient lost a son to suicide on July 2020. Underwent EGD on 09/01/2020. Esophageal mucosal changes secondary to established short segment Posadas's disease was present in the lower third esophagus. The maximal longitudinal extent of these changes was 6 mm in length. Biopsies were obtained with cold forceps for histology. The entire examined stomach and duodenum were normal. Pathology: Esophagus, distal, biopsy Cardio-oxyntic mucosa with no diagnostic abnormality. - Negative for intestinal metaplasia. Ultrasound left breast on 09/02/2020 identified a 1.7 x 0.9 x 0.6 cm lobulated mass in the left breast at 1:00 anterior depth. It was hypoechoic and correlated with the mammography findings. It was adjacent to the surgical scar. She was referred for and underwent biopsy on 09/09/2020. Pathology: A. Left breast, needle core biopsy: - Invasive ductal carcinoma with mucinous features, provisional histologic grade 2 (see comment). Estrogen Receptor (ER) Positive (40%) Stain intensity: Moderate to strong Progesterone Receptor (PgR) Positive (1-5%) Stain intensity: Weak HER2 (ERBB2) IMMUNOHISTOCHEMISTRY ASSAY Interpretation: POSITIVE for HER2 (ERBB2) Expression Score: 3+ Whole body bone scan 09/04/2020: Whole body bone scan and spot images demonstrate moderately increased uptake at T12-L1, L4-5 and left L5 facet, corresponding to moderate degenerative change of the thoracolumbar spine and postsurgical change of L4-5 interbody fusion and pedicle alla and screws fixation of the left L4-5 on the abdomen and pelvic CT. Specifically, no abnormally increased or decreased uptake is identified in the mid thoracic spine to correspond to 1.4 cm T6 sclerotic lesion on recent chest CT. There is increased uptake involving both shoulders, sternoclavicular joints, left upper cervical spine, hips, knees, and ankles in a pattern most compatible with degenerative/arthritic disease. If clinically indicated, correlation with radiographs could be obtained at clinical discretion. No other areas of abnormal focal, regional or segmental osseous uptake are seen to suggest the presence of osseous metastatic lesions. INDETERMINATE 1.4 CM T6 SCLEROTIC LESION WITHOUT ASSOCIATED ABNORMAL TRACER UPTAKE IDENTIFIED. MRI thoracic spine 10/02/2020: IMPRESSION: T6 sclerotic focus. Given the lack of activity on the recent bone scan, this is most likely not an active metastatic lesion and may reflect a bone island. No evidence of metastatic disease to the thoracic vertebral bodies. Numerous hepatic metastatic lesions have been evaluated with CT recently. Previous therapy: 1) Docetaxel, pertuzumab and trastuzumab. 2) Trastuzumab and Pertuzumab. Current therapy: 1) Trastuzumab (Ontruzant). 2) Letrozole. Began 03/2021. Presents for ongoing oncologic management. Interim history: She continues to tolerate Herceptin very well. No cardiovascular symptoms. Chronic lower back pain and hip bursitis pain same after restarting anastrozole. PMH, medications and allergies personally reviewed by me today. Any changes documented in appropriate section. ROS: Constitutional: Denies episodes of fever and night sweats. Neuro: Denies ROMERO, vertigo, dizziness and imbalance. Denies symptoms of neuropathy. HEENT: No recent change in voice, vision or hearing. Resp: Denies cough, wheeze and hemoptysis. CVS: See above. : Denies dysuria or gross hematuria. No symptoms of bladder outlet obstruction. Endo: Denies hot flashes. Denies polyuria and polydipsia. Denies heat and cold intolerance. Musculoskeletal: OA. Derm: Denies rash. Denies jaundice and diffuse pruritis. Heme: Denies unusual bleeding and unexplained bruising. Psych: Normal mood. PHYSICAL EXAM: Well-appearing and in no acute distress. BP 142/80 Pulse 72 Temp 98 Wt 151 lb (68.5kg) SpO2 99% EYES: Sclerae are anicteric bilaterally. LYMPHATIC: There is no palpable cervical, supraclavicular or axillary adenopathy. RESPIRATORY: Inspiratory breath sounds are of normal intensity in all james. No rales, wheezes or rhonchi. CARDIOVASCULAR: Rhythm is regular. BREAST: Declined weasand trimmer. No real object or change in the tumor in the lower central portion of the left breast. ABDOMEN: No abdominal distention. There is no hepatomegaly, right upper quadrant tenderness or massappreciated. Extremities: No swelling or edema. SKIN: No jaundice or rash. NEUROLOGIC: supervisor filling and packing II-XII are grossly intact. No focal motor weakness. MUSCULOSKELETAL: Point tender over greater trochanter left side. LABS: Component Latest Ref Rng & Units 12/18/2021 01/12/2022 02/01/2022 02/22/2022 2022 WBC 3.70 - 11.00 k/uL 5.97 7.11 5.77 4.80 4.89 RBC 3.90 - 5.20 m/uL 4.15 4.02 4.15 3.89 (L) 4.03 Hemoglobin 11.5 - 15.5 g/dL 12.6 12.0 12.3 11.4 (L) 11.9 Hematocrit 36.0 - 46.0 % 36.2 35.6 (L) 36.9 34.4 (L) 35.6 (L) MCV 80.0 - 100.0 fL 87.2 88.6 88.9 88.4 88.3 MCH 26.0 - 34.0 pg 30.4 29.9 29.6 29.3 29.5 MCHC 30.5 - 36.0 g/dL 34.8 33.7 33.3 33.1 33.4 RDW-CV 11.5 - 15.0 % 15.5 (H) 15.7 (H) 15.5 (H) 15.0 15.4 (H) Platelet Count 150 - 400 k/uL 378 340 348 291 323 MPV 9.0 - 12.7 fL 9.3 9.4 9.5 9.2 9.5 Neut% % 58.5 67.1 59.9 50.2 52.4 Abs Neut (ANC) 1.45 - 7.50 k/uL 3.49 4.77 3.46 2.41 2.56 Lymph% % 32.7 23.9 30.7 36.0 37.0 Abs Lymph 1.00 - 4.00 k/uL 1.95 1.70 1.77 1.73 1.81 [place]% % 6.7 6.6 5.4 8.8 7.2 Abs [place] <0.87 k/uL 0.40 0.47 0.31 0.42 0.35 Eosin% % 1.0 1.1 2.1 3.5 2.2 Abs Eosin <0.46 k/uL 0.06 0.08 0.12 0.17 0.11 Baso% % 0.8 1.0 1.6 1.3 1.0 Abs Baso <0.11 k/uL 0.05 0.07 0.09 0.06 0.05 Immature Gran % % 0.3 0.3 0.3 0.2 0.2 IMMATURE GRANS (ABS) <0.10 k/uL <0.03 <0.03 <0.03 <0.03 <0.03 NRBC /100 WBC 0.0 0.0 0.0 0.0 0.0 Absolute nRBC <0.01 k/uL <0.01 <0.01 <0.01 <0.01 <0.01 DTYPE Auto Auto Auto Auto Auto Protein, Total 6.3 - 8.0 g/dL 6.5 6.4 6.8 6.2 (L) 6.5 Albumin 3.9 - 4.9 g/dL 4.0 4.1 4.2 3.9 4.4 Calcium 8.5 - 10.2 mg/dL 8.6 8.3 (L) 8.8 9.0 8.9 Bilirubin, Total 0.2 - 1.3 mg/dL 0.9 0.4 0.8 0.3 0.7 Alkaline Phosphatase 34 - 123 U/L 67 82 75 74 73 AST 13 - 35 U/L 16 17 18 16 14 ALT 7 - 38 U/L 15 18 16 16 13 Glucose 74 - 99 mg/dL 83 84 115 (H) 92 85 BUN 7 - 21 mg/dL 13 15 18 13 15 Creatinine 0.58 - 0.96 mg/dL 0.63 0.67 0.72 0.68 0.65 Sodium 136 - 144 mmol/L 131 (L) 131 (L) 135 (L) 133 (L) 134 (L) Potassium 3.7 - 5.1 mmol/L 4.0 4.6 4.2 4.1 4.2 Chloride 97 - 105 mmol/L 96 (L) 100 101 100 100 CO2 22 - 30 mmol/L 24 22 23 26 25 Anion Gap 9 - 18 mmol/L 11 9 11 7 (L) 9 eGFR >=60 mL/min/1.73m 92 91 87 90 91 ASSESSMENT/PLAN: (C50.919, Z17.0) Malignant neoplasm of breast in female, estrogen receptor positive, unspecified laterality, unspecified site of breast (HCC) (primary encounter diagnosis) (C78.7) Liver metastases (HCC) Assessment: -The patient is a 76-year-old female with a past medical history significant for hypertension, TIA and Posadas's esophagus, history of bleeding gastric ulcer as well as DCIS of the left breast who was found to have metastatic adenocarcinoma consistent with breast primary after presenting with epigastric pain. -Breast biopsy revealed invasive carcinoma with ER/MN and HER-2 status the same as the sample from liver biopsy. -KPS is 90%. -She is tolerating trastuzumab well. -TB discussion / recommendations: After review and discussion of patient presentation, the following thoughts / recommendations were made. 1) Would not recommend mastectomy at this time; may need to consider local therapy in the future ifthere is progression locally 2) Recommend following liver lesions with MRI liver every 3-6 months 3) If liver appears stable, consider repeat mammogram. -Reviewed MRI. Further objective response of liver metastases. Plan: -Continue letrozole. -Continue trastuzumab. -MRI liver in about 3 months. -Repeat echocardiogram in about 3 months. -Monitor CBC & CMP every 3 weeks & OV in 6 weeks. Portions of this documentation were copied and pasted from previous office visit notes in order to provide a cohesive continuity of the history. The note has been reviewed and edited and updated as necessary. During this patient visit I have spent approximately 15 minutes out of 20 in counseling regarding treatment options, medications, answering questions and test results and coordinating care. Christiano Centeno DO Cc: Tami Chang MD documented in this encounterFort [facility] Hospital01-09-2023 History of Present illness Narrative* Shonda Leblanc RN - 06/14/2022 10:12 AM EST Blood return verified. Gripper hooked to auto-injector. MRI completed. Line flushed with 20cc NSS and 5cc Heparin. Gripper D/C'd. Light dressing applied. Pt tolerated procedure well. No C/O's. Site without complication noted. Shonda Leblanc RN * Sandra Goodman RN - 06/14/2022 7:34 AM EST Patient is here for IVAD port flush per [facility] protocol. IVAD is located in right upper chest. Site cleansed with Chloraprep IVAD accessed with a #20 gauge 3/4" non-coring Gripper needle Blood Return: Good Flushed with: 20 ml Normal Saline Non-coring needle left intact for CT. Paper tape applied to puncture site. Port site negative for redness, edema or tenderness. Patient tolerated procedure well. documented in this encounterFort [facility] Hospital01-09-2023 History of Present illness Narrative* Eveline Gaitan, RT(R) - 06/14/2022 9:20 AM EST Radiology Service Progress Note PATIENT NAME: Danette Bishop DATE OF SERVICE: June 14, 2022 TIME: 9:54 AM PATIENT IDENTITY VERIFICATION COMPLETED USING TWO (2) IDENTIFIERS: Name and Date of confirmedby patient verbally. FALL SCREENING: Has the patient had 2 falls in the last year or 1 fall with injury or currently using an Ambulatory Assistive Device (Walker, Cane, Wheelchair, Crutches, etc.)? No PATIENT GENDER DATA: Female. status: : No status: NO. PATIENT RELEVANT IMPLANT DATA REVIEWED: Yes RADIOLOGY DEPARTMENT: MR; Exam(s) Completed: Body: Liver (routine) PERIPHERAL IV DATA: Site assessment: Clean,Dry and Intact, Site disposition Discontinued SIGNED BY: RT Luisa(R) June 14, 2022 9:54 AM documented in this encounterFort [facility] Hospital12-16-2022 Miscellaneous Notes* Telephone Encounter - Carmen Coronado LPN - 05/21/2022 4:21 PM EST Spoke with Dr. Centeno, pt. Needs to go to urgent care , to have urine tested so we know what we are treating. Pt. Voiced understanding. Carmen Coronado LPN * Telephone Encounter - Maura Grijalva - 05/21/2022 4:09 PM EST Patient is request a refill of Cipro for UTI as she has had frequency and burning when urinating. Symptoms started yesterday she uses [facility] in [place]. Please advise the patient. * Telephone Encounter - Maura Grijalva - 05/21/2022 4:06 PM EST Disregard encounter documented in this encounterFort [facility] Hospital12-09-2022 Miscellaneous Notes* Telephone Encounter - Kary Maldonado Pss - 05/14/2022 1:57 PM EST No sooner MRI appts in [place]. Patient does not want to go out of [place]. Keeping appts as scheduled. * Telephone Encounter - Ramila Bolaños RN - 05/14/2022 1:49 PM EST Patient informed of when to proceed to ED. Patient stated understanding. Please contact patient to reschedule MRI. Ramila Bolaños RN * Telephone Encounter - Ramila Bolaños RN - 05/14/2022 1:14 PM EST When calling to reschedule MRI, please inform patient to go to ED if she gets worsening SOB, chest pain/pressure, pain with breathing, or difficulty breathing. Thank you. Ramila Bolaños RN * Telephone Encounter - Christiano Centeno DO - 05/14/2022 1:07 PM EST Reasonable to move up MRI. Christiano Centeno DO * Telephone Encounter - Ramila Bolaños RN - 05/14/2022 11:20 AM EST Spoke to patient. Patient stated she has been having more noticeable 3/10 intermittent "shooting" pain in her RUQ "under my rib cage". Patient stated when she gets the pain it lasts for a second and does not radiate anywhere. Patient stated laying on her heating pad helps with pain, denies exacerbating factors. Patient stated she has noticed she has been more SOB with exertion recently. Patient denies chest pain/pressure, irregular heartbeats, pain with breathing, or difficulty breathing. Patient stated the SOB is alleviated with rest. Patient has had diarrhea "once a day" for the the past couple of days. Patient feels her diet is the cause of the diarrhea. Patient denies fever, chills, N/V, dizziness with standing, or jaundice. Patient asking if she should have her MRI completed sooner than scheduled. Ramila Bolaños RN documented in this encounterFort Hamilton Hospital11-30-2022 History of Present illness Narrative* Christiano Centeno, - 05/05/2022 10:17 AM EST Oncologic problem(s): 1) Metastatic ER-positive, HER2 positive breast cancer. HPI: The patient is a 76-year-old female with past medical history significant for hypertension, stroke (x2; not on ASA because of h/o bleeding ulcer) and DCIS. Treated for left sided DCIS with lumpectomy and radiation when living in [place] in 2012. Started on tamoxifen but had negative side effects then sounds like she was tried on an aromatase inhibitor but have musculoskeletal side effects and then stopped treatment. Had been getting routine mammography in [place] until 2013. Since has been getting mammogram at [facility]. Most recent was on 12/28/2019. Scattered benign calcifications were observed. There were no dense spiculated masses or suspicious microcalcifications identified. Fairly stable architectural distortion in the left breast with previous surgery. No skin thickening or retraction. Significant change from previous mammogram on 12/05/2018. She developed abdominal pain in July 2020. Initially had an ultrasound on 07/08/2020 that demonstrated a 2.7 x 3.2 x 2.6 cm hypoechoic solid nodule in the right lobe of liver. MRI Liver 08/08/2020: Liver: Multiple solid masses in the right lobe of the liver. Largest of these is seen within the peripheral right lobe of the liver and measures 2.5 x 2.5 cm. Biliary tract: The common bile duct is normal in course and caliber. No filling defect is identified within the common duct. Gallbladder: Unremarkable Pancreatic duct: 7 mm T2 bright lesion involving the pancreatic tail. No dilatation of the pancreatic duct. Spleen: No lesion is identified. Pancreas: The pancreas enhances normally and is without focal lesions. Adrenal glands: No mass is identified Kidneys: Simple appearing cortical cysts involving both kidneys. No hydronephrosis. Possible lesion involving the T6 vertebral body. Postsurgical change involving the left breast. No adenopathy is identified. Imaged lung bases are clear. No pericardial effusion or pericardial thickening. CT of chest, abdomen pelvis revealed no thoracic lymphadenopathy. There was a nonspecific scleroticdensity in the vertebral body of T6. Scarring was noted in the left breast. No pulmonary nodules. CT of the abdomen pelvis reveals scattered hepatic masses favoring metastatic disease. There is left lateral abdominal wall hernia containing nondilated descending colon. Biopsy one of the right lobe of the liver lesions performed on 08/21/2020. Pathology: Metastatic adenocarcinoma with prominent mucinous features. Tumor cells were positive for CK7 and GATA3 and negative for CK20, TTF-1 and Napsin a. ER staining showed weak positivity in approximately 10 to 20% of cells. MN was negative with 0% staining. HER-2 was positive at 3+ on immunohistochemistry stain. 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 Her most recent EGDwas in 2019. That study was done to evaluate epigastric spasms. It was performed by Dr. Rahman with the GI group in [place]. Pathology on the biopsy specimen report was not available but patient said her symptoms stopped when she changed from omeprazole to ease omeprazole. She did not have dysphagia. No odynophagia. No heartburn per se. She denied nausea. She has IBS mostly manifested as constipation. She has chronic intermittent left upper quadrant pain that she attributes to gas. No signs of GI bleeding. Patient lost a son to suicide on July 2020. Underwent EGD on 09/01/2020. Esophageal mucosal changes secondary to established short segment Posadas's disease was present in the lower third esophagus. The maximal longitudinal extent of these changes was 6 mm in length. Biopsies were obtained with cold forceps for histology. The entire examined stomach and duodenum were normal. Pathology: Esophagus, distal, biopsy Cardio-oxyntic mucosa with no diagnostic abnormality. - Negative for intestinal metaplasia. Ultrasound left breast on 09/02/2020 identified a 1.7 x 0.9 x 0.6 cm lobulated mass in the left breast at 1:00 anterior depth. It was hypoechoic and correlated with the mammography findings. It was adjacent to the surgical scar. She was referred for and underwent biopsy on 09/09/2020. Pathology: A. Left breast, needle core biopsy: - Invasive ductal carcinoma with mucinous features, provisional histologic grade 2 (see comment). Estrogen Receptor (ER) Positive (40%) Stain intensity: Moderate to strong Progesterone Receptor (PgR) Positive (1-5%) Stain intensity: Weak HER2 (ERBB2) IMMUNOHISTOCHEMISTRY ASSAY Interpretation: POSITIVE for HER2 (ERBB2) Expression Score: 3+ Whole body bone scan 09/04/2020: Whole body bone scan and spot images demonstrate moderately increased uptake at T12-L1, L4-5 and left L5 facet, corresponding to moderate degenerative change of the thoracolumbar spine and postsurgical change of L4-5 interbody fusion and pedicle alla and screws fixation of the left L4-5 on the abdomen and pelvic CT. Specifically, no abnormally increased or decreased uptake is identified in the mid thoracic spine to correspond to 1.4 cm T6 sclerotic lesion on recent chest CT. There is increased uptake involving both shoulders, sternoclavicular joints, left upper cervical spine, hips, knees, and ankles in a pattern most compatible with degenerative/arthritic disease. If clinically indicated, correlation with radiographs could be obtained at clinical discretion. No other areas of abnormal focal, regional or segmental osseous uptake are seen to suggest the presence of osseous metastatic lesions. INDETERMINATE 1.4 CM T6 SCLEROTIC LESION WITHOUT ASSOCIATED ABNORMAL TRACER UPTAKE IDENTIFIED. MRI thoracic spine 10/02/2020: IMPRESSION: T6 sclerotic focus. Given the lack of activity on the recent bone scan, this is most likely not an active metastatic lesion and may reflect a bone island. No evidence of metastatic disease to the thoracic vertebral bodies. Numerous hepatic metastatic lesions have been evaluated with CT recently. Previous therapy: 1) Docetaxel, pertuzumab and trastuzumab. 2) Trastuzumab and Pertuzumab. Current therapy: 1) Trastuzumab (Ontruzant). 2) Letrozole. Began 03/2021. Presents for ongoing oncologic management. Interim history: She continues to tolerate Herceptin very well. No cardiovascular symptoms. Chronic lower back pain and hip bursitis pain stable after holding letrozole. She is now back on letrozole. She has a new dog that she has been walking. She is able to do that but not as far as she could previously. Appetite is normal. Weight is stable. No right upper quadrant pain. PMH, medications and allergies personally reviewed by me today. Any changes documented in appropriate section. ROS: Constitutional: Denies episodes of fever and night sweats. Neuro: Denies ROMERO, vertigo, dizziness and imbalance. Denies symptoms of neuropathy. HEENT: No recent change in voice, vision or hearing. Resp: Denies cough, wheeze and hemoptysis. CVS: See above. : Denies dysuria or gross hematuria. No symptoms of bladder outlet obstruction. Endo: Denies hot flashes. Denies polyuria and polydipsia. Denies heat and cold intolerance. Musculoskeletal: OA. Derm: Denies rash. Denies jaundice and diffuse pruritis. Heme: Denies unusual bleeding and unexplained bruising. Psych: Normal mood. PHYSICAL EXAM: Well-appearing and in no acute distress. BP 112/74 Pulse 85 Temp (Src) 97.8 (Temporal) Wt 154 lb (69.9kg) SpO2 99% EYES: Sclerae are anicteric bilaterally. LYMPHATIC: There is no palpable cervical, supraclavicular or axillary adenopathy. RESPIRATORY: Inspiratory breath sounds are of normal intensity in all james. No rales, wheezes or rhonchi. CARDIOVASCULAR: Rhythm is regular. BREAST: Declined weasand trimmer. No change in the tumor in the lower central portion of the left breast. ABDOMEN: No abdominal distention. There is no hepatomegaly, right upper quadrant tenderness or massappreciated. Extremities: No swelling or edema. SKIN: No jaundice or rash. NEUROLOGIC: supervisor filling and packing II-XII are grossly intact. No focal motor weakness. LABS: Component Latest Ref Rng & Units 12/18/2021 01/12/2022 02/01/2022 02/22/2022 2022 WBC 3.70 - 11.00 k/uL 5.97 7.11 5.77 4.80 4.89 RBC 3.90 - 5.20 m/uL 4.15 4.02 4.15 3.89 (L) 4.03 Hemoglobin 11.5 - 15.5 g/dL 12.6 12.0 12.3 11.4 (L) 11.9 Hematocrit 36.0 - 46.0 % 36.2 35.6 (L) 36.9 34.4 (L) 35.6 (L) MCV 80.0 - 100.0 fL 87.2 88.6 88.9 88.4 88.3 MCH 26.0 - 34.0 pg 30.4 29.9 29.6 29.3 29.5 MCHC 30.5 - 36.0 g/dL 34.8 33.7 33.3 33.1 33.4 RDW-CV 11.5 - 15.0 % 15.5 (H) 15.7 (H) 15.5 (H) 15.0 15.4 (H) Platelet Count 150 - 400 k/uL 378 340 348 291 323 MPV 9.0 - 12.7 fL 9.3 9.4 9.5 9.2 9.5 Neut% % 58.5 67.1 59.9 50.2 52.4 Abs Neut (ANC) 1.45 - 7.50 k/uL 3.49 4.77 3.46 2.41 2.56 Lymph% % 32.7 23.9 30.7 36.0 37.0 Abs Lymph 1.00 - 4.00 k/uL 1.95 1.70 1.77 1.73 1.81 [place]% % 6.7 6.6 5.4 8.8 7.2 Abs [place] <0.87 k/uL 0.40 0.47 0.31 0.42 0.35 Eosin% % 1.0 1.1 2.1 3.5 2.2 Abs Eosin <0.46 k/uL 0.06 0.08 0.12 0.17 0.11 Baso% % 0.8 1.0 1.6 1.3 1.0 Abs Baso <0.11 k/uL 0.05 0.07 0.09 0.06 0.05 Immature Gran % % 0.3 0.3 0.3 0.2 0.2 IMMATURE GRANS (ABS) <0.10 k/uL <0.03 <0.03 <0.03 <0.03 <0.03 NRBC /100 WBC 0.0 0.0 0.0 0.0 0.0 Absolute nRBC <0.01 k/uL <0.01 <0.01 <0.01 <0.01 <0.01 DTYPE Auto Auto Auto Auto Auto Protein, Total 6.3 - 8.0 g/dL 6.5 6.4 6.8 6.2 (L) 6.5 Albumin 3.9 - 4.9 g/dL 4.0 4.1 4.2 3.9 4.4 Calcium 8.5 - 10.2 mg/dL 8.6 8.3 (L) 8.8 9.0 8.9 Bilirubin, Total 0.2 - 1.3 mg/dL 0.9 0.4 0.8 0.3 0.7 Alkaline Phosphatase 34 - 123 U/L 67 82 75 74 73 AST 13 - 35 U/L 16 17 18 16 14 ALT 7 - 38 U/L 15 18 16 16 13 Glucose 74 - 99 mg/dL 83 84 115 (H) 92 85 BUN 7 - 21 mg/dL 13 15 18 13 15 Creatinine 0.58 - 0.96 mg/dL 0.63 0.67 0.72 0.68 0.65 Sodium 136 - 144 mmol/L 131 (L) 131 (L) 135 (L) 133 (L) 134 (L) Potassium 3.7 - 5.1 mmol/L 4.0 4.6 4.2 4.1 4.2 Chloride 97 - 105 mmol/L 96 (L) 100 101 100 100 CO2 22 - 30 mmol/L 24 22 23 26 25 Anion Gap 9 - 18 mmol/L 11 9 11 7 (L) 9 eGFR >=60 mL/min/1.73m 92 91 87 90 91 ASSESSMENT/PLAN: (C50.919, Z17.0) Malignant neoplasm of breast in female, estrogen receptor positive, unspecified laterality, unspecified site of breast (HCC) (primary encounter diagnosis) (C78.7) Liver metastases (HCC) Assessment: -The patient is a 76-year-old female with a past medical history significant for hypertension, TIA and Posadas's esophagus, history of bleeding gastric ulcer as well as DCIS of the left breast who was found to have metastatic adenocarcinoma consistent with breast primary after presenting with epigastric pain. -Breast biopsy revealed invasive carcinoma with ER/MN and HER-2 status the same as the sample from liver biopsy. -KPS is 90%. -She is tolerating trastuzumab well. -Reviewed MRI brain. -Recent TB discussion--After review and discussion of patient presentation, the following thoughts / recommendations were made. 1) Would not recommend mastectomy at this time; may need to consider local therapy in the future ifthere is progression locally. 2) Recommend following liver lesions with MRI liver every 3-6 months. 3) If liver appears stable, consider repeat mammogram. -Reviewed these recommendations with her. She expressed an understanding and agreement. Plan: -Continue etrozole. -Continue trastuzumab. -MRI abdomen prior to next office visit. -Echocardiogram prior to next office visit. -Monitor CBC & CMP every 3 weeks & OV in 6 weeks Portions of this documentation were copied and pasted from previous office visit notes in order to provide a cohesive continuity of the history. The note has been reviewed and edited and updated as necessary. During this patient visit I have spent approximately 20 minutes out of 30 in counseling regarding treatment options, medications, answering questions and test results and coordinating care. Christiano Centeno DO Cc: Tami Chang MD documented in this encounterFort Hamilton Hospital11-17-2022 History of Present illness Narrative* Nallely Clancy RT(R) - 04/22/2022 8:00 AM EST Radiology Service Progress Note PATIENT NAME: Danette Bishop DATE OF SERVICE: April 22, 2022 TIME: 9:02 AM PATIENT IDENTITY VERIFICATION COMPLETED USING TWO (2) IDENTIFIERS: Name and Date of confirmedby patient verbally. FALL SCREENING: Has the patient had 2 falls in the last year or 1 fall with injury or currently using an Ambulatory Assistive Device (Walker, Cane, Wheelchair, Crutches, etc.)? No PATIENT GENDER DATA: Female. status: : No status: NO. PATIENT RELEVANT IMPLANT DATA REVIEWED: Yes RADIOLOGY DEPARTMENT: Mammography PERIPHERAL IV DATA: Not applicable SIGNED BY: RT Miguel Angel(R) April 22, 2022 9:02 AM documented in this encounterFort Hamilton Hospital10-18-2022 History of Present illness Narrative* RT Luisa(R) - 2022 9:20 AM EDT Radiology Service Progress Note PATIENT NAME: Danette Bishop DATE OF SERVICE: 2022 TIME: 9:38 AM PATIENT IDENTITY VERIFICATION COMPLETED USING TWO (2) IDENTIFIERS: Name and Date of confirmedby patient verbally. FALL SCREENING: Has the patient had 2 falls in the last year or 1 fall with injury or currently using an Ambulatory Assistive Device (Walker, Cane, Wheelchair, Crutches, etc.)? No PATIENT GENDER DATA: Female. status: : No status: NO. PATIENT RELEVANT IMPLANT DATA REVIEWED: Yes RADIOLOGY DEPARTMENT: MR; Exam(s) Completed: Head: Routine Brain PERIPHERAL IV DATA: Site assessment: Clean,Dry and Intact, Site disposition Discontinued SIGNED BY: RT Luisa(R) 2022 9:38 AM documented in this encounterFort Hamilton Hospital09-16-2022 Miscellaneous Notes* Telephone Encounter - Kary Maldonado Pss - 02/19/2022 9:38 AM EDT Scheduled and notified. * Telephone Encounter - Christiano Centeno DO - 02/18/2022 2:20 PM EDT I spoke with her about the results of the recent PET scan. She would like to hold off on liver directed therapy. She has scheduled follow-up scheduled on 03/24. Please schedule her for a brain MRI on03/23. Christiano Centeno DO documented in this encounterFort Hamilton Hospital09-13-2022 History of Present illness Narrative* RT Sheila(R) - 02/16/2022 11:30 AM EDT RADIOLOGY SERVICE PROGRESS NOTE SERVICE DATE: 02/16/2022 SERVICE TIME: 11:09 AM PATIENT IDENTITY VERIFICATION COMPLETED USING TWO (2) STANDARD IDENTIFIERS: Name and Date of confirmed by patient verbally FALL SCREENING: Has the patient had 2 falls in the last year or 1 fall with injury or currently using an Ambulatory Assistive Device (Walker, Cane, Wheelchair, Crutches, etc.)? No PATIENT GENDER DATA: .female ALLERGIES: NA MEDICATIONS REVIEWED: Not applicable PATIENT RELEVANT IMPLANT DATA REVIEWED: Not Applicable CREATININE: Creatinine Date Value Ref Range Status 02/01/2022 0.72 0.58 - 0.96 mg/dL Final 01/12/2022 0.67 0.58 - 0.96 mg/dL Final 12/18/2021 0.63 0.58 - 0.96 mg/dL Final Estimated Glomerular Filtration Rate Date Value Ref Range Status 02/01/2022 87 >=60 mL/min/1.73m Final Comment: Estimated Glomerular Filtration Rate (eGFR) is calculated using the 2020 CKD-EPI creatinine equation. This equation utilizes serum creatinine, sex, and age as parameters. The creatinine assay has traceable calibration to isotope dilution- mass spectrometry. Refer to KDIGO guidelines for clinical interpretation. In patients with unstable renal function, e.g. those with acute kidney injury, the eGFRmay not accurately reflect actual GFR. eGFR- Date Value Ref Range Status 07/27/2021 >60 Final P.O.C.T. RESULTS: N/A February 16, [address] PERFORMED: No IV SITE: Ambulatory: OR only - direct IV injection in the Right antecubital site POST EXAM PIV STATUS: Discontinued PROCEDURE TYPE: NM INJECT: PET/CT BODY SCAN. 10.8 mCi F18 FDG. No other medications given.. ADMINISTRATION TIME: 1107 PATIENT DISCHARGED TO: Ambulatory patient, left OR department area. A Diagnostic radioactive procedure has taken place, with no further precautions necessary other than routine body substance precautions. More information regarding radiation safety can be found usingthis link: [email or web address] SIGNATURE: RT Sheila(Pop) PATIENT NAME: Danette Bishop DATE: February 16, 2022 TIME: 11:09 AM PAGER/CONTACT #: documented in this encounterFort Hamilton Hospital08-31-2022 History of Present illness Narrative* Tony Murray MD - 02/03/2022 2:55 PM EDT This was a phone visit. The patient could not connect virtually. The patient has been referred by Dr. Christiano Centeno regarding liver metastases from breast cancer. Breast cancer was first diagnosed in 2012 and primary was removed. She developed recurrence in the liver in 2020. She has been on systemic therapy since then. Last MRI showed 2 lesions in the right lobe : * 2.9 x 1.2 cm bilobed lesion in the right hepatic dome (12:16), previously 3.1 x 1.2 cm * Stable 2.3 x 1.4 cm segment 7 lesion (12:26) PAST MEDICAL HISTORY Diagnosis Date Cancer (HCC) GI bleed 2008 Hypertension Liver nodule TIA (transient ischemic attack) 2012 PAST SURGICAL HISTORY Procedure Laterality Date COLONOSCOPY every 5 yrs due to f/h colon cqan all normal per pt EGD GERD EGD 09/01/2020 Repeat in 2 years INSJ TUNNELED CTR VAD W/SUBQ PORT AGE 5 YR/> 09/29/2020 PAST SURGICAL HISTORY OF thyroid removal PAST SURGICAL HISTORY OF left breast 2 episodes of DCIS PAST SURGICAL HISTORY OF back surgeries times 2 She is on Plavix for TIA X 2, with the last one being in 2018. Impression: Liver metastases from breast cancer. Plan: Laparoscopic liver ablation. The patient is scheduled for a PET scan on February 11. She would like to wait until then to finalize her decision. She has vacation plans in mid March coming back on March 21. Tony Murray MD I spent a total of 30 minutes on the date of the service which included preparing to see the patient, completing clinical documentation, performing a medically appropriate examination, counseling andeducating the patient/family/caregiver, ordering medications, tests, or procedures, communicating with other HCPs (not separately reported), independently interpreting results (not separately reported), communicating results to the patient/family/caregiver, and care coordination (not separately reported). documented in this encounterFort Hamilton Hospital08-30-2022 History of Present illness Narrative* Breanna Fernández RN - 02/02/2022 10:54 AM EDT Assessment unchanged from 02/01/[address] Centeno documented in this encounterFort Hamilton Hospital08-29-2022 History of Present illness Narrative* Christiano Lara Taryn, DO - 02/01/2022 10:31 AM EDT Oncologic problem(s): 1) Metastatic ER-positive, HER2 positive breast cancer. HPI: The patient is a 76-year-old female with past medical history significant for hypertension, TIA (x2; not on ASA because of h/o bleeding ulcer) and DCIS. Treated for left sided DCIS with lumpectomy and radiation when living in [place] in 2012. Started on tamoxifen but had negative side effects then sounds like she was tried on an aromatase inhibitor but have musculoskeletal side effects and then stopped treatment. Had been getting routine mammography in [place] until 2013. Since has been getting mammogram at [facility]. Most recent was on 12/28/2019. Scattered benign calcifications were observed. There were no dense spiculated masses or suspicious microcalcifications identified. Fairly stable architectural distortion in the left breast with previous surgery. No skin thickening or retraction. Significant change from previous mammogram on 12/05/2018. She developed abdominal pain in July 2020. Initially had an ultrasound on 07/08/2020 that demonstrated a 2.7 x 3.2 x 2.6 cm hypoechoic solid nodule in the right lobe of liver. MRI Liver 08/08/2020: Liver: Multiple solid masses in the right lobe of the liver. Largest of these is seen within the peripheral right lobe of the liver and measures 2.5 x 2.5 cm. Biliary tract: The common bile duct is normal in course and caliber. No filling defect is identified within the common duct. Gallbladder: Unremarkable Pancreatic duct: 7 mm T2 bright lesion involving the pancreatic tail. No dilatation of the pancreatic duct. Spleen: No lesion is identified. Pancreas: The pancreas enhances normally and is without focal lesions. Adrenal glands: No mass is identified Kidneys: Simple appearing cortical cysts involving both kidneys. No hydronephrosis. Possible lesion involving the T6 vertebral body. Postsurgical change involving the left breast. No adenopathy is identified. Imaged lung bases are clear. No pericardial effusion or pericardial thickening. CT of chest, abdomen pelvis revealed no thoracic lymphadenopathy. There was a nonspecific scleroticdensity in the vertebral body of T6. Scarring was noted in the left breast. No pulmonary nodules. CT of the abdomen pelvis reveals scattered hepatic masses favoring metastatic disease. There is left lateral abdominal wall hernia containing nondilated descending colon. Biopsy one of the right lobe of the liver lesions performed on 08/21/2020. Pathology: Metastatic adenocarcinoma with prominent mucinous features. Tumor cells were positive for CK7 and GATA3 and negative for CK20, TTF-1 and Napsin a. ER staining showed weak positivity in approximately 10 to 20% of cells. MN was negative with 0% staining. HER-2 was positive at 3+ on immunohistochemistry stain. 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 Her most recent EGDwas in 2019. That study was done to evaluate epigastric spasms. It was performed by Dr. Rahman with the GI group in [place]. Pathology on the biopsy specimen report was not available but patient said her symptoms stopped when she changed from omeprazole to ease omeprazole. She did not have dysphagia. No odynophagia. No heartburn per se. She denied nausea. She has IBS mostly manifested as constipation. She has chronic intermittent left upper quadrant pain that she attributes to gas. No signs of GI bleeding. Patient lost a son to suicide on July 2020. Underwent EGD on 09/01/2020. Esophageal mucosal changes secondary to established short segment Posadas's disease was present in the lower third esophagus. The maximal longitudinal extent of these changes was 6 mm in length. Biopsies were obtained with cold forceps for histology. The entire examined stomach and duodenum were normal. Pathology: Esophagus, distal, biopsy Cardio-oxyntic mucosa with no diagnostic abnormality. - Negative for intestinal metaplasia. Ultrasound left breast on 09/02/2020 identified a 1.7 x 0.9 x 0.6 cm lobulated mass in the left breast at 1:00 anterior depth. It was hypoechoic and correlated with the mammography findings. It was adjacent to the surgical scar. She was referred for and underwent biopsy on 09/09/2020. Pathology: A. Left breast, needle core biopsy: - Invasive ductal carcinoma with mucinous features, provisional histologic grade 2 (see comment). Estrogen Receptor (ER) Positive (40%) Stain intensity: Moderate to strong Progesterone Receptor (PgR) Positive (1-5%) Stain intensity: Weak HER2 (ERBB2) IMMUNOHISTOCHEMISTRY ASSAY Interpretation: POSITIVE for HER2 (ERBB2) Expression Score: 3+ Whole body bone scan 09/04/2020: Whole body bone scan and spot images demonstrate moderately increased uptake at T12-L1, L4-5 and left L5 facet, corresponding to moderate degenerative change of the thoracolumbar spine and postsurgical change of L4-5 interbody fusion and pedicle alla and screws fixation of the left L4-5 on the abdomen and pelvic CT. Specifically, no abnormally increased or decreased uptake is identified in the mid thoracic spine to correspond to 1.4 cm T6 sclerotic lesion on recent chest CT. There is increased uptake involving both shoulders, sternoclavicular joints, left upper cervical spine, hips, knees, and ankles in a pattern most compatible with degenerative/arthritic disease. If clinically indicated, correlation with radiographs could be obtained at clinical discretion. No other areas of abnormal focal, regional or segmental osseous uptake are seen to suggest the presence of osseous metastatic lesions. INDETERMINATE 1.4 CM T6 SCLEROTIC LESION WITHOUT ASSOCIATED ABNORMAL TRACER UPTAKE IDENTIFIED. MRI thoracic spine 10/02/2020: IMPRESSION: T6 sclerotic focus. Given the lack of activity on the recent bone scan, this is most likely not an active metastatic lesion and may reflect a bone island. No evidence of metastatic disease to the thoracic vertebral bodies. Numerous hepatic metastatic lesions have been evaluated with CT recently. Previous therapy: 1) Docetaxel, pertuzumab and trastuzumab. 2) Trastuzumab and Pertuzumab. Current therapy: 1) Trastuzumab (Ontruzant). 2) Letrozole. Began 03/2021. Presents for ongoing oncologic management. Interim history: She continues to tolerate Herceptin very well. No cardiovascular symptoms. Chronic lower back pain and hip bursitis pain has been getting worse. She has also noticed more left-sided rib pain lower thorax. PMH, medications and allergies personally reviewed by me today. Any changes documented in appropriate section. ROS: Constitutional: Denies episodes of fever and night sweats. Neuro: Denies ROMERO, vertigo, dizziness and imbalance. Denies symptoms of neuropathy. HEENT: No recent change in voice, vision or hearing. Resp: Denies cough, wheeze and hemoptysis. CVS: See above. : Denies dysuria or gross hematuria. No symptoms of bladder outlet obstruction. Endo: Denies hot flashes. Denies polyuria and polydipsia. Denies heat and cold intolerance. Musculoskeletal: OA. Derm: Denies rash. Denies jaundice and diffuse pruritis. Heme: Denies unusual bleeding and unexplained bruising. Psych: Normal mood. PHYSICAL EXAM: Well-appearing and in no acute distress. BP 136/70 Pulse 82 Temp 97.6 Wt 148 lb 8 oz (67.4kg) SpO2 97% EYES: Sclerae are anicteric bilaterally. LYMPHATIC: There is no palpable cervical, supraclavicular or axillary adenopathy. RESPIRATORY: Inspiratory breath sounds are of normal intensity in all james. No rales, wheezes or rhonchi. CARDIOVASCULAR: Rhythm is regular. BREAST: Not performed today. ABDOMEN: No abdominal distention. There is no hepatomegaly, right upper quadrant tenderness or massappreciated. Extremities: No swelling or edema. SKIN: No jaundice or rash. NEUROLOGIC: supervisor filling and packing II-XII are grossly intact. No focal motor weakness. MUSCULOSKELETAL: Point tender over greater trochanter left side. LABS: Component Latest Ref Rng & Units 01/12/2022 02/01/2022 WBC 3.70 - 11.00 k/uL 7.11 5.77 RBC 3.90 - 5.20 m/uL 4.02 4.15 Hemoglobin 11.5 - 15.5 g/dL 12.0 12.3 Hematocrit 36.0 - 46.0 % 35.6 (L) 36.9 MCV 80.0 - 100.0 fL 88.6 88.9 MCH 26.0 - 34.0 pg 29.9 29.6 MCHC 30.5 - 36.0 g/dL 33.7 33.3 RDW-CV 11.5 - 15.0 % 15.7 (H) 15.5 (H) Platelet Count 150 - 400 k/uL 340 348 MPV 9.0 - 12.7 fL 9.4 9.5 Neut% % 67.1 59.9 Abs Neut (ANC) 1.45 - 7.50 k/uL 4.77 3.46 Lymph% % 23.9 30.7 Abs Lymph 1.00 - 4.00 k/uL 1.70 1.77 [place]% % 6.6 5.4 Abs [place] <0.87 k/uL 0.47 0.31 Eosin% % 1.1 2.1 Abs Eosin <0.46 k/uL 0.08 0.12 Baso% % 1.0 1.6 Abs Baso <0.11 k/uL 0.07 0.09 Immature Gran % % 0.3 0.3 IMMATURE GRANS (ABS) <0.10 k/uL <0.03 <0.03 NRBC /100 WBC 0.0 0.0 Absolute nRBC <0.01 k/uL <0.01 <0.01 DTYPE Auto Auto Protein, Total 6.3 - 8.0 g/dL 6.4 6.8 Albumin 3.9 - 4.9 g/dL 4.1 4.2 Calcium 8.5 - 10.2 mg/dL 8.3 (L) 8.8 Bilirubin, Total 0.2 - 1.3 mg/dL 0.4 0.8 Alkaline Phosphatase 34 - 123 U/L 82 75 AST 13 - 35 U/L 17 18 ALT 7 - 38 U/L 18 16 Glucose 74 - 99 mg/dL 84 115 (H) BUN 7 - 21 mg/dL 15 18 Creatinine 0.58 - 0.96 mg/dL 0.67 0.72 Sodium 136 - 144 mmol/L 131 (L) 135 (L) Potassium 3.7 - 5.1 mmol/L 4.6 4.2 Chloride 97 - 105 mmol/L 100 101 CO2 22 - 30 mmol/L 22 23 Anion Gap 9 - 18 mmol/L 9 11 eGFR >=60 mL/min/1.73m 91 87 XR hip IMPRESSION: No radiographic evidence of acute osseous injury or destructive osseous lesion. ASSESSMENT/PLAN: (C50.919, Z17.0) Malignant neoplasm of breast in female, estrogen receptor positive, unspecified laterality, unspecified site of breast (HCC) (primary encounter diagnosis) (C78.7) Liver metastases (HCC) Assessment: -The patient is a 76-year-old female with a past medical history significant for hypertension, TIA and Posadas's esophagus, history of bleeding gastric ulcer as well as DCIS of the left breast who was found to have metastatic adenocarcinoma consistent with breast primary after presenting with epigastric pain. -Breast biopsy revealed invasive carcinoma with ER/MN and HER-2 status the same as the sample from liver biopsy. -KPS is 90%. -She is tolerating trastuzumab well. -No evidence of bone metastasis on previous imaging. In terms of bursitis, low back pain and rib pain likely secondary to letrozole. We discussed a trial of stopping for 2 weeks and if this helps hersymptoms, rotating to exemestane. -However since she is having worsening pain particularly the rib pain she is due for imaging and PET scan is reasonable rather than conventional CT and bone scan. Plan: -Hold letrozole. She will message me in 2 weeks to let me know how her symptoms are doing. Exemestane if improved. -Continue trastuzumab. -Due for echocardiogram. -PET scan at [place] when able to be scheduled. -Has virtual visit with Dr. Murray on Tuesday to discuss liver directed therapy. -Monitor CBC & CMP every 3 weeks & OV in 6 weeks Portions of this documentation were copied and pasted from previous office visit notes in order to provide a cohesive continuity of the history. The note has been reviewed and edited and updated as necessary. Christiano Centeno DO Cc: Tami Chang MD documented in this encounterFort [facility]08-19-2022 Miscellaneous Notes* Telephone Encounter - Mandie Choudhary - 01/22/2022 4:52 PM EDT 01/22/2022-INTAKE COMPLETED-IMAGING COMPLETED. I SPOKE TO PT. AND GAVE HER 'S OFC NUMBER AND MY NAME FOR FUTURE REFERENCE. documented in this encounterFort Hamilton Hospital08-17-2022 Miscellaneous Notes* Telephone Encounter - Santa Rodriguez MD - 01/20/2022 1:59 PM EDT Patient's request for medication is as follows Requested Prescriptions Signed Prescriptions Disp Refills HYDROcodone-acetaminophen (NORCO) 5-325 mg per tablet 40 tablet 0 Sig: Take 1-2 tablets by mouth every 6 hours as needed for pain for up to 5 days. Authorizing Provider: SANTA RODRIGUEZ Order entered - please phone pharmacy and notify patient. Santa Rodriguez MD documented in this encounterFort Hamilton Hospital08-08-2022 Miscellaneous Notes* Telephone Encounter - Ramila Bolaños RN - 01/11/2022 3:00 PM EDT Patient informed of Dr. Rodriguez's response, stated understanding. Patient stated she will see how treatment goes tomorrow. Patient will let us know if our office can assist with an appointment with General Surgery. Ramila Bolaños RN * Telephone Encounter - Santa Rodriguez MD - 01/11/2022 1:20 PM EDT Her chest x-ray did not show any complication from her central line placement. However, there is a sharp angle which the central line turned in her neck. This is probably why sheis feeling the pulling when she turned her head. If she has any issues, follow-up with general surgery Santa Rodriguez MD documented in this encounterFort Hamilton Hospital08-08-2022 History of Present illness Narrative* RT Beto(R) - 01/11/2022 1:00 PM EDT Radiology Service Progress Note PATIENT NAME: Danette Bishop DATE OF SERVICE: January 11, 2022 TIME: 12:52 PM PATIENT IDENTITY VERIFICATION COMPLETED USING TWO (2) IDENTIFIERS: Name and Date of confirmedby patient verbally. FALL SCREENING: Has the patient had 2 falls in the last year or 1 fall with injury or currently using an Ambulatory Assistive Device (Walker, Cane, Wheelchair, Crutches, etc.)? No PATIENT GENDER DATA: Female. status: : No status: NO. PATIENT RELEVANT IMPLANT DATA REVIEWED: Not Applicable RADIOLOGY DEPARTMENT: General X-ray: Exam(s) Completed: Chest X-Ray PERIPHERAL IV DATA: Not applicable SIGNED BY: RT Beto(R) January 11, 2022 12:52 PM documented in this encounterFort Hamilton Hospital08-08-2022 Miscellaneous Notes* Telephone Encounter - Ramila Bolaños RN - 01/11/2022 9:40 AM EDT Addressed in separate phone encounter. Ramila Bolaños RN documented in this encounterFort Hamilton Hospital08-08-2022 Miscellaneous Notes* Telephone Encounter - Ramila Bolaños RN - 01/11/2022 8:50 AM EDT Called patient to follow-up on the message that was sent. Patient informed that Dr. Centeno is outof the office this week. Patient was given the number to Dr. Murray's office and she is going to call their office and see if her OV can be changed to a VV. Dr. Rodriguez- Patient stated she has been more aware of her port and has noticed it sticking out more inher right neck. Patient stated on Tuesday she had a sore throat, over the weekend she noticed pain with swallowing and feels it is the catheter from the port that is causing the discomfort. Patient denies redness or swelling in her right neck. Patient stated she has 2/10 pain with swallowing and turning her head. Patient aware this nurse will discuss with Dr. Rodriguez and will call her back. Ramila Bolaños RN documented in this encounterFort Hamilton Hospital07-29-2022 Miscellaneous Notes* Telephone Encounter - Latisha Hill - 01/01/2022 9:25 AM EDT Patient is informed. Latisha Hill * Telephone Encounter - Christiano Centeno DO - 01/01/2022 9:21 AM EDT Can let her know that someone from Dr. Murray's office should be contacting her to arrange consultation with him to discuss options for liver directed therapy. Christiano Centeno DO documented in this encounterFort Hamilton Hospital07-15-2022 History of Present illness Narrative* Santa Rodriguez MD - 12/18/2021 12:13 PM EDT Oncologic problem(s): 1) Metastatic ER-positive, HER2 positive breast cancer. Per Dr. Centeno's last visit on 11/06/2021 HPI: The patient is a 76-year-old female with past medical history significant for hypertension, TIA (x2; not on ASA because of h/o bleeding ulcer) and DCIS. Treated for left sided DCIS with lumpectomy and radiation when living in [place] in 2012. Started on tamoxifen but had negative side effects then sounds like she was tried on an aromatase inhibitor but have musculoskeletal side effects and then stopped treatment. Had been getting routine mammography in [place] until 2013. Since has been getting mammogram at [facility]. Most recent was on 12/28/2019. Scattered benign calcifications were observed. There were no dense spiculated masses or suspicious microcalcifications identified. Fairly stable architectural distortion in the left breast with previous surgery. No skin thickening or retraction. Significant change from previous mammogram on 12/05/2018. She developed abdominal pain in July 2020. Initially had an ultrasound on 07/08/2020 that demonstrated a 2.7 x 3.2 x 2.6 cm hypoechoic solid nodule in the right lobe of liver. MRI Liver 08/08/2020: Liver: Multiple solid masses in the right lobe of the liver. Largest of these is seen within the peripheral right lobe of the liver and measures 2.5 x 2.5 cm. Biliary tract: The common bile duct is normal in course and caliber. No filling defect is identified within the common duct. Gallbladder: Unremarkable Pancreatic duct: 7 mm T2 bright lesion involving the pancreatic tail. No dilatation of the pancreatic duct. Spleen: No lesion is identified. Pancreas: The pancreas enhances normally and is without focal lesions. Adrenal glands: No mass is identified Kidneys: Simple appearing cortical cysts involving both kidneys. No hydronephrosis. Possible lesion involving the T6 vertebral body. Postsurgical change involving the left breast. No adenopathy is identified. Imaged lung bases are clear. No pericardial effusion or pericardial thickening. CT of chest, abdomen pelvis revealed no thoracic lymphadenopathy. There was a nonspecific scleroticdensity in the vertebral body of T6. Scarring was noted in the left breast. No pulmonary nodules. CT of the abdomen pelvis reveals scattered hepatic masses favoring metastatic disease. There is left lateral abdominal wall hernia containing nondilated descending colon. Biopsy one of the right lobe of the liver lesions performed on 08/21/2020. Pathology: Metastatic adenocarcinoma with prominent mucinous features. Tumor cells were positive for CK7 and GATA3 and negative for CK20, TTF-1 and Napsin a. ER staining showed weak positivity in approximately 10 to 20% of cells. MN was negative with 0% staining. HER-2 was positive at 3+ on immunohistochemistry stain. 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 Her most recent EGDwas in 2019. That study was done to evaluate epigastric spasms. It was performed by Dr. Rahman with the GI group in [place]. Pathology on the biopsy specimen report was not available but patient said her symptoms stopped when she changed from omeprazole to ease omeprazole. She did not have dysphagia. No odynophagia. No heartburn per se. She denied nausea. She has IBS mostly manifested as constipation. She has chronic intermittent left upper quadrant pain that she attributes to gas. No signs of GI bleeding. Patient lost a son to suicide on July 2020. Underwent EGD on 09/01/2020. Esophageal mucosal changes secondary to established short segment Posadas's disease was present in the lower third esophagus. The maximal longitudinal extent of these changes was 6 mm in length. Biopsies were obtained with cold forceps for histology. The entire examined stomach and duodenum were normal. Pathology: Esophagus, distal, biopsy Cardio-oxyntic mucosa with no diagnostic abnormality. - Negative for intestinal metaplasia. Ultrasound left breast on 09/02/2020 identified a 1.7 x 0.9 x 0.6 cm lobulated mass in the left breast at 1:00 anterior depth. It was hypoechoic and correlated with the mammography findings. It was adjacent to the surgical scar. She was referred for and underwent biopsy on 09/09/2020. Pathology: A. Left breast, needle core biopsy: - Invasive ductal carcinoma with mucinous features, provisional histologic grade 2 (see comment). Estrogen Receptor (ER) Positive (40%) Stain intensity: Moderate to strong Progesterone Receptor (PgR) Positive (1-5%) Stain intensity: Weak HER2 (ERBB2) IMMUNOHISTOCHEMISTRY ASSAY Interpretation: POSITIVE for HER2 (ERBB2) Expression Score: 3+ Whole body bone scan 09/04/2020: Whole body bone scan and spot images demonstrate moderately increased uptake at T12-L1, L4-5 and left L5 facet, corresponding to moderate degenerative change of the thoracolumbar spine and postsurgical change of L4-5 interbody fusion and pedicle alla and screws fixation of the left L4-5 on the abdomen and pelvic CT. Specifically, no abnormally increased or decreased uptake is identified in the mid thoracic spine to correspond to 1.4 cm T6 sclerotic lesion on recent chest CT. There is increased uptake involving both shoulders, sternoclavicular joints, left upper cervical spine, hips, knees, and ankles in a pattern most compatible with degenerative/arthritic disease. If clinically indicated, correlation with radiographs could be obtained at clinical discretion. No other areas of abnormal focal, regional or segmental osseous uptake are seen to suggest the presence of osseous metastatic lesions. INDETERMINATE 1.4 CM T6 SCLEROTIC LESION WITHOUT ASSOCIATED ABNORMAL TRACER UPTAKE IDENTIFIED. MRI thoracic spine 10/02/2020: IMPRESSION: T6 sclerotic focus. Given the lack of activity on the recent bone scan, this is most likely not an active metastatic lesion and may reflect a bone island. No evidence of metastatic disease to the thoracic vertebral bodies. Numerous hepatic metastatic lesions have been evaluated with CT recently. Previous therapy: 1) Docetaxel, pertuzumab and trastuzumab. 2) Trastuzumab and Pertuzumab. Current therapy: 1) Trastuzumab (Ontruzant). 2) Letrozole. Began 03/2021. Presents for ongoing oncologic management. Interim history: She is doing well on Herceptin and Femara. Low back pain unchanged and she also has symptom of bursitis. The CT scan of her abdomen pelvis shows Postsurgical changes at L4-L5 and multilevel thoracolumbar spondylosis. No symptoms of chest pain or pressure or shortness of breath. No palpitation. No orthopnea or lowerextremity edema. 2D echocardiogram also shown normal left ventricular function. PMH, medications and allergies personally reviewed by me today. Any changes documented in appropriate section. ROS: Constitutional: Denies episodes of fever and night sweats. Neuro: Denies ROMERO, vertigo, dizziness and imbalance. Denies symptoms of neuropathy. HEENT: No recent change in voice, vision or hearing. Resp: Denies cough, wheeze and hemoptysis. CVS: See above. GI: See above. : Denies dysuria or gross hematuria. No symptoms of bladder outlet obstruction. Endo: Denies hot flashes. Denies polyuria and polydipsia. Denies heat and cold intolerance. Musculoskeletal: OA. Derm: Denies rash. Denies jaundice and diffuse pruritis. Heme: Denies unusual bleeding and unexplained bruising. Psych: Normal mood. PHYSICAL EXAM: Well-appearing and in no acute distress. BP 127/63 Pulse 75 Temp (Src) 97 (Temporal) Wt 143 lb (64.9kg) EYES: Sclerae are anicteric bilaterally. LYMPHATIC: There is no palpable cervical, supraclavicular or axillary adenopathy. RESPIRATORY: Inspiratory breath sounds are of normal intensity in all james. No rales, wheezes or rhonchi. CARDIOVASCULAR: Rhythm is regular. 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 Stable tumor inferior left breast 6 o'clock position--between indented old surgical scar and areola.. ABDOMEN: No abdominal distention. Extremities: No swelling or edema. SKIN: No jaundice or rash. NEUROLOGIC: supervisor filling and packing II-XII are grossly intact. No focal motor weakness. MUSCULOSKELETAL: Point tender over greater trochanter left side. LABS: Component Latest Ref Rng & Units 12/18/2021 WBC 3.70 - 11.00 k/uL 5.97 RBC 3.90 - 5.20 m/uL 4.15 Hemoglobin 11.5 - 15.5 g/dL 12.6 Hematocrit 36.0 - 46.0 % 36.2 MCV 80.0 - 100.0 fL 87.2 MCH 26.0 - 34.0 pg 30.4 MCHC 30.5 - 36.0 g/dL 34.8 RDW-CV 11.5 - 15.0 % 15.5 (H) Platelet Count 150 - 400 k/uL 378 MPV 9.0 - 12.7 fL 9.3 Neut% % 58.5 Abs Neut (ANC) 1.45 - 7.50 k/uL 3.49 Lymph% % 32.7 Abs Lymph 1.00 - 4.00 k/uL 1.95 [place]% % 6.7 Abs [place] <0.87 k/uL 0.40 Eosin% % 1.0 Abs Eosin <0.46 k/uL 0.06 Baso% % 0.8 Abs Baso <0.11 k/uL 0.05 Immature Gran % % 0.3 IMMATURE GRANS (ABS) <0.10 k/uL <0.03 NRBC /100 WBC 0.0 Absolute nRBC <0.01 k/uL <0.01 DTYPE Auto Component Latest Ref Rng & Units 12/18/2021 Protein, Total 6.3 - 8.0 g/dL 6.5 Albumin 3.9 - 4.9 g/dL 4.0 Calcium 8.5 - 10.2 mg/dL 8.6 Bilirubin, Total 0.2 - 1.3 mg/dL 0.9 Alkaline Phosphatase 34 - 123 U/L 67 AST 13 - 35 U/L 16 ALT 7 - 38 U/L 15 Glucose 74 - 99 mg/dL 83 BUN 7 - 21 mg/dL 13 Creatinine 0.58 - 0.96 mg/dL 0.63 Sodium 136 - 144 mmol/L 131 (L) Potassium 3.7 - 5.1 mmol/L 4.0 Chloride 97 - 105 mmol/L 96 (L) CO2 22 - 30 mmol/L 24 Anion Gap 9 - 18 mmol/L 11 eGFR >=60 mL/min/1.73m 92 MRI: Liver -pending XR hip IMPRESSION: No radiographic evidence of acute osseous injury or destructive osseous lesion. 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 -Breast biopsy revealed invasive carcinoma with ER/MN and HER-2 status the same as the sample from liver biopsy. -KPS is 90%. -She is tolerating letrozole and trastuzumab well. -Reviewed results of CT scan. Further small objective incremental decrease in liver metastases. -No evidence of bone metastasis. Plan: -Continue letrozole and trastuzumab every 21 days x 2 -Monitor CBC & CMP every 3 weeks & OV in 6 weeks -Follow-up with PCP or orthopedic surgery for management of chronic pain from arthritis. portions of this documentation were copied and pasted from previous office visit notes in order to provide a cohesive continuity of the history. The note has been reviewed and edited and updated as necessary. Santa Rodriguez MD Cc: Tami Chang MD documented in this encounterFort Hamilton Hospital07-13-2022 NoteHNO ID: [id number] Author: RT Marcia(R) Service: ? Author Type: Director Product Type: Progress Notes Filed: 12/16/2021 1:41 PM Note Text: Radiology Service Progress Note PATIENT NAME: Danette Bishop DATE OF SERVICE: December 16, 2021 TIME: 1:41 PM PATIENT IDENTITY VERIFICATION COMPLETED USING TWO (2) IDENTIFIERS: Name and Date of confirmed by patient verbally. FALL SCREENING: Has the patient had 2 falls in the last year or 1 fall with injury or currently using an Ambulatory Assistive Device (Walker, Cane, Wheelchair, Crutches, etc.)? No PATIENT GENDER DATA: Female. status: : No status: NO. PATIENT RELEVANT IMPLANT DATA REVIEWED: Yes RADIOLOGY DEPARTMENT: MR; Exam(s) Completed: Body: Liver (routine) PERIPHERAL IV DATA: Site assessment: Clean,Dry and Intact, Site disposition Discontinued SIGNED BY: RT Marcia(R) December 16, 2021 1:41 PMHe[facility]07-13-2022 NoteHNO ID: [id number] Author: Ursula Rader RN Service: Radiology Author Type: Registered Nurse Type: Progress Notes Filed: 12/16/2021 1:43 PM Note Text: Radiology Service Progress Note DATE OF SERVICE: December 16, 2021 TIME: 12:47 PM PATIENT WEIGHT: 140 LBS PATIENT IDENTITY VERIFICATION COMPLETED USING TWO (2) STANDARD IDENTIFIERS: Name and Date of confirmed by patient verbally. FALL SCREENING: Has the patient had 2 falls in the last year or 1 fall with injury or currently using an Ambulatory Assistive Device (Walker, Cane, Wheelchair, Crutches, etc.)? No PATIENT GENDER DATA: Female. status: : No status: NO. ALLERGIES: Reviewed and unchanged CONTRAST ALLERGY: No EXAM: MRI - CONTRAST TYPE: GROUP II IV SITE: Ambulatory: A power injectable Mediport was accessed in the Right chest with a 0.75 inch 20 gauge needle. Blood Return, Flushed easily with normal saline, Good Blood Return Post Injection, Flushed with 20 cc saline followed by Heparin 500 units/5 cc and No Complications (Patient's right chest port identified per patient port identification card. ID card given back to patient). IV SITE APPEARANCE: Clean,Dry and Intact SIGNATURE: Ursula Rader RN PATIENT NAME: Danette Bishop DATE: December 16, 2021 TIME: 12:47 [facility] History of Present illness Narrative * RT Marcia(R) - 12/16/2021 1:41 PM EDT Radiology Service Progress Note PATIENT NAME: Danette Bishop DATE OF SERVICE: December 16, 2021 TIME: 1:41 PM PATIENT IDENTITY VERIFICATION COMPLETED USING TWO (2) IDENTIFIERS: Name and Date of confirmedby patient verbally. FALL SCREENING: Has the patient had 2 falls in the last year or 1 fall with injury or currently using an Ambulatory Assistive Device (Walker, Cane, Wheelchair, Crutches, etc.)? No PATIENT GENDER DATA: Female. status: : No status: NO. PATIENT RELEVANT IMPLANT DATA REVIEWED: Yes RADIOLOGY DEPARTMENT: MR; Exam(s) Completed: Body: Liver (routine) PERIPHERAL IV DATA: Site assessment: Clean,Dry and Intact, Site disposition Discontinued SIGNED BY: RT Marcia(R) December 16, 2021 1:41 PM documented in this encounterFort [facility]07-13-2022 History of Present illness Narrative* Ursula Rader RN - 12/16/2021 1:00 PM EDT Radiology Service Progress Note DATE OF SERVICE: December 16, 2021 TIME: 12:47 PM PATIENT WEIGHT: 140 LBS PATIENT IDENTITY VERIFICATION COMPLETED USING TWO (2) STANDARD IDENTIFIERS: Name and Date of confirmed by patient verbally. FALL SCREENING: Has the patient had 2 falls in the last year or 1 fall with injury or currently using an Ambulatory Assistive Device (Walker, Cane, Wheelchair, Crutches, etc.)? No PATIENT GENDER DATA: Female. status: : No status: NO. ALLERGIES: Reviewed and unchanged CONTRAST ALLERGY: No EXAM: MRI - CONTRAST TYPE: GROUP II IV SITE: Ambulatory: A power injectable Mediport was accessed in the Right chest with a 0.75 inch 20 gauge needle. Blood Return, Flushed easily with normal saline, Good Blood Return Post Injection, Flushed with 20 cc saline followed by Heparin 500 units/5 cc and No Complications (Patient's right chest port identified per patient port identification card. ID card given back to patient). IV SITE APPEARANCE: Clean,Dry and Intact SIGNATURE: Ursula Rader RN PATIENT NAME: Danette Bishop DATE: December 16, 2021 TIME: 12:47 PM documented in this encounterFort [facility]06-28-2022 Miscellaneous Notes* Telephone Encounter - Carmen Coronado LPN - 12/01/2021 5:16 PM EDT Pt. Notified calcium level was low, does not take a calcium supplement. Instructed to pasteurizing supervisor Citracal or a generic equivilent and take twice daily. Pt. Voiced understanding. Carmen Coronado LPN * Telephone Encounter - Christiano Centeno DO - 12/01/2021 4:54 PM EDT Her calcium level was a little bit low on today's chemistry panel. If she is not taking a calcium supplement, I would advise she start taking Citracal or store brand generic equivalent twice a day. Christiano Centeno DO documented in this encounterFort [facility] Hospital06-10-2022 Miscellaneous Notes* Telephone Encounter - Christiano Centeno DO - 11/13/2021 11:09 AM EDT Noted. Thank you. Christiano Centeno DO * Telephone Encounter - Vesta Nye Pss - 11/13/2021 9:55 AM EDT Patient calling to let Dr. Centeno know that she was seen at [facility] where she obtained an injection of Kenalog. documented in this encounterFort Hamilton Hospital06-06-2022 Miscellaneous Notes* Telephone Encounter - Freda Vora RN - 11/09/2021 1:51 PM EDT Pt has been notified that the x-ray shows inflammation and that a referral to Dr. Reza is being made. Pt will be contacted in regards to an appointment for this referral. Pt voices understanding. * Telephone Encounter - Christiano Centeno DO - 11/09/2021 8:52 AM EDT Can let her know the x-ray showed no evidence of cancer in her bones. There was inflammation of thetendon of the greater trochanter, the area where she is having pain. Please make referral to Dr. Reza and sports medicine for her. Christiano Centeno DO documented in this encounterFort Hamilton Hospital06-03-2022 History of Present illness Narrative* RT Beto(R) - 11/06/2021 10:50 AM EDT Radiology Service Progress Note PATIENT NAME: Danette Bishop DATE OF SERVICE: November 06, 2021 TIME: 11:37 AM PATIENT IDENTITY VERIFICATION COMPLETED USING TWO (2) IDENTIFIERS: Name and Date of confirmedby patient verbally. FALL SCREENING: Has the patient had 2 falls in the last year or 1 fall with injury or currently using an Ambulatory Assistive Device (Walker, Cane, Wheelchair, Crutches, etc.)? No PATIENT GENDER DATA: Female. status: : No status: NO. PATIENT RELEVANT IMPLANT DATA REVIEWED: Not Applicable RADIOLOGY DEPARTMENT: General X-ray: Exam(s) Completed: Pelvis X-Ray: Pelvis with Hip Left PERIPHERAL IV DATA: Not applicable SIGNED BY: RT Beto(R) November 06, 2021 11:37 AM documented in this encounterFort Hamilton Hospital06-03-2022 History of Present illness Narrative* Christiano Centeno DO - 11/06/2021 10:22 AM EDT Oncologic problem(s): 1) Metastatic ER-positive, HER2 positive breast cancer. HPI: The patient is a 76-year-old female with past medical history significant for hypertension, TIA (x2; not on ASA because of h/o bleeding ulcer) and DCIS. Treated for left sided DCIS with lumpectomy and radiation when living in [place] in 2012. Started on tamoxifen but had negative side effects then sounds like she was tried on an aromatase inhibitor but have musculoskeletal side effects and then stopped treatment. Had been getting routine mammography in [place] until 2013. Since has been getting mammogram at [facility]. Most recent was on 12/28/2019. Scattered benign calcifications were observed. There were no dense spiculated masses or suspicious microcalcifications identified. Fairly stable architectural distortion in the left breast with previous surgery. No skin thickening or retraction. Significant change from previous mammogram on 12/05/2018. She developed abdominal pain in July 2020. Initially had an ultrasound on 07/08/2020 that demonstrated a 2.7 x 3.2 x 2.6 cm hypoechoic solid nodule in the right lobe of liver. MRI Liver 08/08/2020: Liver: Multiple solid masses in the right lobe of the liver. Largest of these is seen within the peripheral right lobe of the liver and measures 2.5 x 2.5 cm. Biliary tract: The common bile duct is normal in course and caliber. No filling defect is identified within the common duct. Gallbladder: Unremarkable Pancreatic duct: 7 mm T2 bright lesion involving the pancreatic tail. No dilatation of the pancreatic duct. Spleen: No lesion is identified. Pancreas: The pancreas enhances normally and is without focal lesions. Adrenal glands: No mass is identified Kidneys: Simple appearing cortical cysts involving both kidneys. No hydronephrosis. Possible lesion involving the T6 vertebral body. Postsurgical change involving the left breast. No adenopathy is identified. Imaged lung bases are clear. No pericardial effusion or pericardial thickening. CT of chest, abdomen pelvis revealed no thoracic lymphadenopathy. There was a nonspecific scleroticdensity in the vertebral body of T6. Scarring was noted in the left breast. No pulmonary nodules. CT of the abdomen pelvis reveals scattered hepatic masses favoring metastatic disease. There is left lateral abdominal wall hernia containing nondilated descending colon. Biopsy one of the right lobe of the liver lesions performed on 08/21/2020. Pathology: Metastatic adenocarcinoma with prominent mucinous features. Tumor cells were positive for CK7 and GATA3 and negative for CK20, TTF-1 and Napsin a. ER staining showed weak positivity in approximately 10 to 20% of cells. MN was negative with 0% staining. HER-2 was positive at 3+ on immunohistochemistry stain. 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 Her most recent EGDwas in 2019. That study was done to evaluate epigastric spasms. It was performed by Dr. Rahman with the GI group in [place]. Pathology on the biopsy specimen report was not available but patient said her symptoms stopped when she changed from omeprazole to ease omeprazole. She did not have dysphagia. No odynophagia. No heartburn per se. She denied nausea. She has IBS mostly manifested as constipation. She has chronic intermittent left upper quadrant pain that she attributes to gas. No signs of GI bleeding. Patient lost a son to suicide on July 2020. Underwent EGD on 09/01/2020. Esophageal mucosal changes secondary to established short segment Posadas's disease was present in the lower third esophagus. The maximal longitudinal extent of these changes was 6 mm in length. Biopsies were obtained with cold forceps for histology. The entire examined stomach and duodenum were normal. Pathology: Esophagus, distal, biopsy Cardio-oxyntic mucosa with no diagnostic abnormality. - Negative for intestinal metaplasia. Ultrasound left breast on 09/02/2020 identified a 1.7 x 0.9 x 0.6 cm lobulated mass in the left breast at 1:00 anterior depth. It was hypoechoic and correlated with the mammography findings. It was adjacent to the surgical scar. She was referred for and underwent biopsy on 09/09/2020. Pathology: A. Left breast, needle core biopsy: - Invasive ductal carcinoma with mucinous features, provisional histologic grade 2 (see comment). Estrogen Receptor (ER) Positive (40%) Stain intensity: Moderate to strong Progesterone Receptor (PgR) Positive (1-5%) Stain intensity: Weak HER2 (ERBB2) IMMUNOHISTOCHEMISTRY ASSAY Interpretation: POSITIVE for HER2 (ERBB2) Expression Score: 3+ Whole body bone scan 09/04/2020: Whole body bone scan and spot images demonstrate moderately increased uptake at T12-L1, L4-5 and left L5 facet, corresponding to moderate degenerative change of the thoracolumbar spine and postsurgical change of L4-5 interbody fusion and pedicle alla and screws fixation of the left L4-5 on the abdomen and pelvic CT. Specifically, no abnormally increased or decreased uptake is identified in the mid thoracic spine to correspond to 1.4 cm T6 sclerotic lesion on recent chest CT. There is increased uptake involving both shoulders, sternoclavicular joints, left upper cervical spine, hips, knees, and ankles in a pattern most compatible with degenerative/arthritic disease. If clinically indicated, correlation with radiographs could be obtained at clinical discretion. No other areas of abnormal focal, regional or segmental osseous uptake are seen to suggest the presence of osseous metastatic lesions. INDETERMINATE 1.4 CM T6 SCLEROTIC LESION WITHOUT ASSOCIATED ABNORMAL TRACER UPTAKE IDENTIFIED. MRI thoracic spine 10/02/2020: IMPRESSION: T6 sclerotic focus. Given the lack of activity on the recent bone scan, this is most likely not an active metastatic lesion and may reflect a bone island. No evidence of metastatic disease to the thoracic vertebral bodies. Numerous hepatic metastatic lesions have been evaluated with CT recently. Previous therapy: 1) Docetaxel, pertuzumab and trastuzumab. 2) Trastuzumab and Pertuzumab. Current therapy: 1) Trastuzumab (Ontruzant). 2) Letrozole. Began 03/2021. Presents for ongoing oncologic management. Interim history: For the last 5 weeks or so she has been having pain at the greater trochanter on the left side. Hurts when going from sitting to standing position and sometimes when walking. The area is tender. Low back pain unchanged. She is having more depressive symptoms lately but memorial day was particularly difficult because of the of her son who committed suicide in early 2020. No symptoms of chest pain or pressure. No palpitation. No orthopnea or lower extremity edema. PMH, medications and allergies personally reviewed by me today. Any changes documented in appropriate section. ROS: Constitutional: Denies episodes of fever and night sweats. Neuro: Denies ROMERO, vertigo, dizziness and imbalance. Denies symptoms of neuropathy. HEENT: No recent change in voice, vision or hearing. Resp: Denies cough, wheeze and hemoptysis. CVS: See above. GI: See above. : Denies dysuria or gross hematuria. No symptoms of bladder outlet obstruction. Endo: Denies hot flashes. Denies polyuria and polydipsia. Denies heat and cold intolerance. Musculoskeletal: OA. Derm: Denies rash. Denies jaundice and diffuse pruritis. Heme: Denies unusual bleeding and unexplained bruising. Psych: Normal mood. PHYSICAL EXAM: Vitals: Blood pressure 149/69, pulse 79, temperature 36.7 C (98.1 F), weight 64.6 kg (142 lb 8 oz),SpO2 98 %. Well-appearing and in no acute distress. EYES: Sclerae are anicteric bilaterally. LYMPHATIC: There is no palpable cervical, supraclavicular or axillary adenopathy. RESPIRATORY: Inspiratory breath sounds are of normal intensity in all james. No rales, wheezes or rhonchi. CARDIOVASCULAR: Rhythm is regular. 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 Stable tumor inferior left breast 6 o'clock position--between indented old surgical scar and areola.. ABDOMEN: No abdominal distention. Extremities: No swelling or edema. SKIN: No jaundice or rash. NEUROLOGIC: supervisor filling and packing II-XII are grossly intact. No focal motor weakness. MUSCULOSKELETAL: Point tender over greater trochanter left side. 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 -Breast biopsy revealed invasive carcinoma with ER/MN and HER-2 status the same as the sample from liver biopsy. -KPS is 90%. -She is tolerating letrozole and trastuzumab well. -Echocardiogram from 11/03 reviewed. -Reviewed results of CT scan. Further small objective incremental decrease in liver metastases. -Next line of therapy Kadcyla. -Exam consistent with trochanteric bursitis on the left. Plan: -Continue letrozole and trastuzumab for now. -Repeat echocardiogram due in January. -Will obtain DXA report. -Plain film of left hip today. If no evidence of metastatic disease then referral to orthopedics for consideration of steroid injection. Portions of this documentation were copied and pasted from previous office visit notes in order to provide a cohesive continuity of the history. The note has been reviewed and edited and updated as necessary. During this patient visit I have spent approximately 20 out of 25 in counseling regarding treatmentoptions, medications, reviewing images and test results, answering questions and coordinating care. Christiano Centeno DO documented in this encounterFort [facility] Hospital05-31-2022 History of Present illness Narrative* RT Patricia(R) - 11/03/2021 10:00 AM EDT Radiology Service Progress Note PATIENT NAME: Danette Bishop DATE OF SERVICE: November 03, 2021 TIME: 10:41 AM PATIENT IDENTITY VERIFICATION COMPLETED USING TWO (2) IDENTIFIERS: Name and Date of confirmedby patient verbally. FALL SCREENING: Has the patient had 2 falls in the last year or 1 fall with injury or currently using an Ambulatory Assistive Device (Walker, Cane, Wheelchair, Crutches, etc.)? No PATIENT GENDER DATA: Female. status: : No status: NO. PATIENT RELEVANT IMPLANT DATA REVIEWED: Yes RADIOLOGY DEPARTMENT: CT; Exam(s) Completed: Chest Abdomen Pelvis PERIPHERAL IV DATA: power port accessed by [employer] SIGNED BY: RT Kraig(R) November 03, 2021 10:41 AM documented in this encounterFort Hamilton Hospital05-18-2022 Miscellaneous Notes* Telephone Encounter - Amy Grace LPN - 10/21/2021 9:08 AM EDT Patient is leaving for [place] on Tuesday to see her son and [id number]. [id number] has been exposed to two coworkers that have now tested positive for COVID. Patient states [id number] having "allergy" symptoms but tested negative for COVID. I advised the patient to follow CDC guidelines and make an informed decision. Amy Grace LPN * Telephone Encounter - Young Juliocesar - 10/21/2021 8:25 AM EDT Patient called in, wants to know if they are still immuno compromised and wants to check if they can be around someone who was exposed to a positive patient. Please call at your earliest convience [phone], thank you. documented in this encounterFort Hamilton Hospital04-22-2022 History of Present illness Narrative* Christiano Centeno, - 09/25/2021 10:09 AM EDT Oncologic problem(s): 1) Metastatic ER-positive, HER2 positive breast cancer. HPI: The patient is a 76-year-old female with past medical history significant for hypertension, TIA (x2; not on ASA because of h/o bleeding ulcer) and DCIS. Treated for left sided DCIS with lumpectomy and radiation when living in [place] in 2012. Started on tamoxifen but had negative side effects then sounds like she was tried on an aromatase inhibitor but have musculoskeletal side effects and then stopped treatment. Had been getting routine mammography in [place] until 2013. Since has been getting mammogram at [facility]. Most recent was on 12/28/2019. Scattered benign calcifications were observed. There were no dense spiculated masses or suspicious microcalcifications identified. Fairly stable architectural distortion in the left breast with previous surgery. No skin thickening or retraction. Significant change from previous mammogram on 12/05/2018. She developed abdominal pain in July 2020. Initially had an ultrasound on 07/08/2020 that demonstrated a 2.7 x 3.2 x 2.6 cm hypoechoic solid nodule in the right lobe of liver. MRI Liver 08/08/2020: Liver: Multiple solid masses in the right lobe of the liver. Largest of these is seen within the peripheral right lobe of the liver and measures 2.5 x 2.5 cm. Biliary tract: The common bile duct is normal in course and caliber. No filling defect is identified within the common duct. Gallbladder: Unremarkable Pancreatic duct: 7 mm T2 bright lesion involving the pancreatic tail. No dilatation of the pancreatic duct. Spleen: No lesion is identified. Pancreas: The pancreas enhances normally and is without focal lesions. Adrenal glands: No mass is identified Kidneys: Simple appearing cortical cysts involving both kidneys. No hydronephrosis. Possible lesion involving the T6 vertebral body. Postsurgical change involving the left breast. No adenopathy is identified. Imaged lung bases are clear. No pericardial effusion or pericardial thickening. CT of chest, abdomen pelvis revealed no thoracic lymphadenopathy. There was a nonspecific scleroticdensity in the vertebral body of T6. Scarring was noted in the left breast. No pulmonary nodules. CT of the abdomen pelvis reveals scattered hepatic masses favoring metastatic disease. There is left lateral abdominal wall hernia containing nondilated descending colon. Biopsy one of the right lobe of the liver lesions performed on 08/21/2020. Pathology: Metastatic adenocarcinoma with prominent mucinous features. Tumor cells were positive for CK7 and GATA3 and negative for CK20, TTF-1 and Napsin a. ER staining showed weak positivity in approximately 10 to 20% of cells. MN was negative with 0% staining. HER-2 was positive at 3+ on immunohistochemistry stain. 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 Her most recent EGDwas in 2019. That study was done to evaluate epigastric spasms. It was performed by Dr. Rahman with the GI group in [place]. Pathology on the biopsy specimen report was not available but patient said her symptoms stopped when she changed from omeprazole to ease omeprazole. She did not have dysphagia. No odynophagia. No heartburn per se. She denied nausea. She has IBS mostly manifested as constipation. She has chronic intermittent left upper quadrant pain that she attributes to gas. No signs of GI bleeding. Patient lost a son to suicide on July 2020. Underwent EGD on 09/01/2020. Esophageal mucosal changes secondary to established short segment Posadas's disease was present in the lower third esophagus. The maximal longitudinal extent of these changes was 6 mm in length. Biopsies were obtained with cold forceps for histology. The entire examined stomach and duodenum were normal. Pathology: Esophagus, distal, biopsy Cardio-oxyntic mucosa with no diagnostic abnormality. - Negative for intestinal metaplasia. Ultrasound left breast on 09/02/2020 identified a 1.7 x 0.9 x 0.6 cm lobulated mass in the left breast at 1:00 anterior depth. It was hypoechoic and correlated with the mammography findings. It was adjacent to the surgical scar. She was referred for and underwent biopsy on 09/09/2020. Pathology: A. Left breast, needle core biopsy: - Invasive ductal carcinoma with mucinous features, provisional histologic grade 2 (see comment). Estrogen Receptor (ER) Positive (40%) Stain intensity: Moderate to strong Progesterone Receptor (PgR) Positive (1-5%) Stain intensity: Weak HER2 (ERBB2) IMMUNOHISTOCHEMISTRY ASSAY Interpretation: POSITIVE for HER2 (ERBB2) Expression Score: 3+ Whole body bone scan 09/04/2020: Whole body bone scan and spot images demonstrate moderately increased uptake at T12-L1, L4-5 and left L5 facet, corresponding to moderate degenerative change of the thoracolumbar spine and postsurgical change of L4-5 interbody fusion and pedicle alla and screws fixation of the left L4-5 on the abdomen and pelvic CT. Specifically, no abnormally increased or decreased uptake is identified in the mid thoracic spine to correspond to 1.4 cm T6 sclerotic lesion on recent chest CT. There is increased uptake involving both shoulders, sternoclavicular joints, left upper cervical spine, hips, knees, and ankles in a pattern most compatible with degenerative/arthritic disease. If clinically indicated, correlation with radiographs could be obtained at clinical discretion. No other areas of abnormal focal, regional or segmental osseous uptake are seen to suggest the presence of osseous metastatic lesions. INDETERMINATE 1.4 CM T6 SCLEROTIC LESION WITHOUT ASSOCIATED ABNORMAL TRACER UPTAKE IDENTIFIED. MRI thoracic spine 10/02/2020: IMPRESSION: T6 sclerotic focus. Given the lack of activity on the recent bone scan, this is most likely not an active metastatic lesion and may reflect a bone island. No evidence of metastatic disease to the thoracic vertebral bodies. Numerous hepatic metastatic lesions have been evaluated with CT recently. Previous therapy: 1) Docetaxel, pertuzumab and trastuzumab. 2) Trastuzumab and Pertuzumab. Current therapy: 1) Trastuzumab (Ontruzant). 2) Letrozole. Began 03/2021. Presents for ongoing oncologic management. Interim history: Continues to tolerate letrozole and trastuzumab well. More lower thoracic back pain. No symptoms of chest pain or pressure. No palpitation. No orthopnea or lower extremity edema. PMH, medications and allergies personally reviewed by me today. Any changes documented in appropriate section. ROS: Constitutional: Denies episodes of fever and night sweats. Neuro: Denies ROMERO, vertigo, dizziness and imbalance. Denies symptoms of neuropathy. HEENT: No recent change in voice, vision or hearing. Resp: Denies cough, wheeze and hemoptysis. CVS: See above. GI: See above. : Denies dysuria or gross hematuria. No symptoms of bladder outlet obstruction. Endo: Denies hot flashes. Denies polyuria and polydipsia. Denies heat and cold intolerance. Musculoskeletal: OA. Derm: Denies rash. Denies jaundice and diffuse pruritis. Heme: Denies unusual bleeding and unexplained bruising. Psych: Normal mood. PHYSICAL EXAM: Vitals: Blood pressure 141/63, pulse 80, temperature 36.6 C (97.8 F), temperature source Temporal, weight 64.9 kg (143 lb). Well-appearing and in no acute distress. EYES: Sclerae are anicteric bilaterally. LYMPHATIC: There is no palpable cervical, supraclavicular or axillary adenopathy. RESPIRATORY: Inspiratory breath sounds are of normal intensity in all james. No rales, wheezes or rhonchi. CARDIOVASCULAR: Rhythm is regular. BREAST: Declined weasand trimmer. Stable tumor inferior left breast 6 o'clock position--between indented old surgical scar and areola.. ABDOMEN: No abdominal distention. Extremities: No swelling or edema. SKIN: No jaundice or rash. NEUROLOGIC: supervisor filling and packing II-XII are grossly intact. No focal motor weakness. MUSCULOSKELETAL: No muscle wasting. 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 -Breast biopsy revealed invasive carcinoma with ER/MN and HER-2 status the same as the sample from liver biopsy. -KPS is 90%. -She is tolerating letrozole and trastuzumab well. -Back pain likely from degenerative changes. This is evidenced on the bone windows from previous CTchest. -Next line of therapy Kadcyla. Plan: -Continue letrozole and trastuzumab for now. -Repeat echocardiogram due in October. -CTs early November. -Advised updating bone density testing. She will contact Dr. Chang about that. However she is very leery about receiving intravenous bisphosphonate therapy. Portions of this documentation were copied and pasted from previous office visit notes in order to provide a cohesive continuity of the history. The note has been reviewed and edited and updated as necessary. During this patient visit I have spent approximately 20 out of 25 in counseling regarding treatmentoptions, medications, reviewing images and test results, answering questions and coordinating care. Christiano Centeno DO [facility] Miscellaneous Notes* Telephone Encounter - Christiano Centeno DO - 02/19/2021 1:40 PM EDT Yes, because she will still be getting Herceptin every 3 weeks ongoing. Christiano Centeno DO * Telephone Encounter - Freda Tan - 02/19/2021 12:57 PM EDT Patient returned call and was advised below. Patient stated she would reach out to Dr. Gustafson re: Thyroid Labs. Dr. Centeno - do you still wish to see the patient on 03/02 and resume Perjeta on 03/04? (Patient will be watching nap- Naturally Attached Parentst for changes in schedule.) Freda Tan * Telephone Encounter - Fernanda Lara - 02/19/2021 11:13 AM EDT Left a voicemail for patient to give our office a call back. Fernanda Lara * Telephone Encounter - Christiano Centeno DO - 02/19/2021 10:33 AM EDT Ask her to come in for a TSH/T4. Christiano Centeno DO * Telephone Encounter - Adore Whiting LPN - 02/19/2021 8:23 AM EDT TC to pt, pt made aware, voices understanding. PSR-please adjust schedule regarding the Nuryta DR Centeno-She has not had her thyroid checked in some time, has not seen her PCP 'in a couple years". I advised pt make an apt for a general physical and thyroid check as dose may need adjusted. Adore Whiting LPN * Telephone Encounter - Christiano Centeno DO - 02/19/2021 6:03 AM EDT Let her know lab results all look good. Leg weakness could be from the generalized fatigue or from Taxotere or dexamethasone or some combination of all three. Will hold Perjeta for now (so doesn't need dexamethasone). The only other thing I can think of is her thyroid medication may need adjusted. Does she know when Dr. Chang last check her blood work for thyroid? Christiano Centeno DO documented in [facility] encounter[facility]* Diagnosis Liver metastases (HCC)- Primary Secondary malignant neoplasm of liver Malignant neoplasm of breast in female, estrogen receptor positive, unspecified laterality, unspecified site of breast (HCC) Encounter for antineoplastic immunotherapy [facility] Malignant neoplasm of breast in female, estrogen receptor positive, unspecified laterality, unspecified site of breast (HCC) [facility] Diagnosis Malignant neoplasm of breast in female, estrogen receptor positive, unspecified laterality, unspecified site of breast (HCC)- Primary Liver metastases (HCC) 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) [facility] Diagnosis Liver metastases (HCC)- Primary Secondary malignant neoplasm of liver Malignant neoplasm of breast in female, estrogen receptor positive, unspecified laterality, unspecified site of breast (HCC) [facility] noteNo assessment information availableWMercy [facility] Work Phone: Evaluation note* Diagnosis Malignant neoplasm of breast in female, estrogen receptor positive, unspecified laterality, unspecified site of breast (HCC) [facility] Diagnosis Malignant neoplasm of breast in female, estrogen receptor positive, unspecified laterality, unspecified site of breast (HCC) Liver metastases (HCC) 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) documented [facility] this [facility]* Diagnosis Malignant neoplasm of breast in female, estrogen receptor positive, unspecified laterality, unspecified site of breast (HCC)- Primary Liver metastases (HCC) Secondary malignant neoplasm of liver Pain in left hip Pain in joint, pelvic region and thigh [facility]* Diagnosis Malignant neoplasm of breast in female, estrogen receptor positive, unspecified laterality, unspecified site of breast (HCC) Pain in left hip Pain in joint, pelvic region and thigh [facility]* Diagnosis Greater trochanteric pain syndrome of left lower extremity- Primary [facility]* Diagnosis Malignant neoplasm of breast in female, estrogen receptor positive, unspecified laterality, unspecified site of breast (HCC)- Primary Liver metastases (HCC) Secondary malignant neoplasm of liver [facility]* Diagnosis Malignant neoplasm of breast in female, estrogen receptor positive, unspecified laterality, unspecified site of breast (HCC)- Primary Liver metastases (HCC) Secondary malignant neoplasm of liver [facility]* Diagnosis Liver metastases (HCC) Secondary malignant neoplasm of liver [facility]* Diagnosis Malignant neoplasm of breast in female, estrogen receptor positive, unspecified laterality, unspecified site of breast (HCC) Liver metastases (HCC) Secondary malignant neoplasm of liver [facility]* Diagnosis Liver metastases (HCC)- Primary Secondary malignant neoplasm of liver Malignant neoplasm of breast in female, estrogen receptor positive, unspecified laterality, unspecified site of breast (HCC) HER2-positive carcinoma of breast (HCC) [facility]* Diagnosis Liver metastases (HCC)- Primary 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) [facility]* Diagnosis Malignant neoplasm of breast in female, estrogen receptor positive, unspecified laterality, unspecified site of breast (HCC) HER2-positive carcinoma of breast (HCC) [facility]* Diagnosis Malignant neoplasm of breast in female, estrogen receptor positive, unspecified laterality, unspecified site of breast (HCC)- Primary HER2-positive carcinoma of breast (HCC) documented [facility]* Diagnosis Malignant neoplasm of breast in female, estrogen receptor positive, unspecified laterality, unspecified site of breast (HCC)- Primary Liver metastases (HCC) 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) [facility]* Diagnosis Acquired hypothyroidism- Primary Unspecified hypothyroidism documented [facility] this [facility]* Diagnosis Malignant neoplasm of breast in female, estrogen receptor positive, unspecified laterality, unspecified site of breast (HCC) Liver metastases (HCC) Secondary malignant neoplasm of liver documented [facility]* Diagnosis HER2-positive carcinoma of breast (HCC)- Primary Liver metastases (HCC) Secondary malignant neoplasm of liver [facility]* Diagnosis Liver metastases (HCC)- Primary 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) [facility]* Diagnosis Liver metastases (HCC)- Primary Secondary malignant neoplasm of liver [facility]* Diagnosis Onset Date Resolution Status Greater trochanteric bursitis of left hip acute [facility] Work Phone: Evaluation note* Diagnosis HER2-positive carcinoma of breast (HCC) Liver metastases (HCC) Secondary malignant neoplasm of liver documented [facility] encounter [facility]* Diagnosis Liver metastases (HCC)- Primary 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) [facility]* Diagnosis Malignant neoplasm of breast in female, estrogen receptor positive, unspecified laterality, unspecified site of breast (HCC) Liver metastases (HCC) Secondary malignant neoplasm of liver documented [facility]* Diagnosis HER2-positive carcinoma of breast (HCC) Liver metastases (HCC) Secondary malignant neoplasm of liver documented in this encounter [facility]* Diagnosis Liver metastases (HCC)- Primary 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) documented in this encounter [facility] note* Diagnosis HER2-positive carcinoma of breast (HCC)- Primary Liver metastases (HCC) Secondary malignant neoplasm of liver documented in this encounter [facility] note* Diagnosis Liver metastases (HCC)- Primary Secondary malignant neoplasm of liver Malignant neoplasm of breast in female, estrogen receptor positive, unspecified laterality, unspecified site of breast (HCC) documented in this encounter [facility] note* Diagnosis HER2-positive carcinoma of breast (HCC)- Primary Liver metastases (HCC) Secondary malignant neoplasm of liver documented in this encounter [facility] note* Diagnosis Malignant neoplasm of breast in female, estrogen receptor positive, unspecified laterality, unspecified site of breast (HCC) Liver metastases (HCC) Secondary malignant neoplasm of liver [facility]* Diagnosis Breast cancer, stage 4, left (HCC)- Primary documented in this encounter [facility] note* Diagnosis Breast cancer, stage 4, left (HCC)- Primary Malignant neoplasm of breast in female, estrogen receptor positive, unspecified laterality, unspecified site of breast (HCC) Liver metastases (HCC) Secondary malignant neoplasm of liver documented in this encounter [facility] note* Diagnosis Breast cancer, stage 4, left (HCC)- Primary HER2-positive carcinoma of breast (HCC) Liver metastases (HCC) Secondary malignant neoplasm of liver documented in this encounter [facility] note* Diagnosis Liver metastases (HCC)- Primary Secondary malignant neoplasm of liver Malignant neoplasm of breast in female, estrogen receptor positive, unspecified laterality, unspecified site of breast (HCC) documented in this encounter [facility] note* Diagnosis Malignant neoplasm of breast in female, estrogen receptor positive, unspecified laterality, unspecified site of breast (HCC) Liver metastases (HCC) Secondary malignant neoplasm of liver documented in this encounter [facility] note* Diagnosis Onset Date Resolution Status UTI (urinary tract infection), uncomplicated acute 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 chronic Liver metastasis [facility] Work Phone: Evaluation note* Diagnosis Local recurrence of cancer of left breast (HCC)- Primary Malignant neoplasm of breast in female, estrogen receptor positive, unspecified laterality, unspecified site of breast (HCC) Liver metastases (HCC) Secondary malignant neoplasm of liver Anemia, unspecified type [facility] Diagnosis Liver metastases ([facility]CC)- Primary 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) [facility] Diagnosis Malignant neoplasm of breast in female, estrogen receptor positive, unspecified laterality, unspecified site of breast (HCC) Liver metastases (HCC) Secondary malignant neoplasm of liver [facility] Diagnosis Liver metastases (HCC)- Primary 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) [facility] Diagnosis Malignant neoplasm of breast in female, estrogen receptor positive, unspecified laterality, unspecified site of breast (HCC) 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) Secondary malignant neoplasm of liver [facility]* Diagnosis Breast cancer, stage 4, left (HCC)- Primary 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) Secondary malignant neoplasm of liver [facility]* Diagnosis 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)- Primary 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) [facility]* Diagnosis Malignant neoplasm of breast in female, estrogen receptor positive, unspecified laterality, unspecified site of breast (HCC) 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) Secondary malignant neoplasm of liver [facility] Diagnosis 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)- Primary 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) [facility]* Diagnosis Breast cancer, stage 4, left (HCC)- Primary [facility]* Diagnosis Malignant neoplasm of breast in female, estrogen receptor positive, unspecified laterality, unspecified site of breast (HCC) 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) Secondary malignant neoplasm of liver [facility] Diagnosis 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)- Primary 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) [facility]* Diagnosis Breast cancer, stage 4, left (HCC)- Primary HER2-positive carcinoma of breast (HCC) [facility] Diagnosis Breast cancer, stage 4, left (HCC) HER2-positive carcinoma of breast (HCC) [facility] Diagnosis Breast cancer, stage 4, left (HCC)- Primary HER2-positive carcinoma of breast (HCC) Local recurrence of cancer of left breast (HCC) 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) Secondary malignant neoplasm of liver Gastroesophageal reflux disease, unspecified whether esophagitis present Epigastric pain Abdominal pain, epigastric Posadas's esophagus without dysplasia Posadas's esophagus [facility] Diagnosis Breast cancer, stage 4, left (HCC)- Primary 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) Secondary malignant neoplasm of liver [facility]* Diagnosis Breast cancer, stage 4, left (HCC)- Primary 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) Secondary malignant neoplasm of liver [facility]* Diagnosis Breast cancer, stage 4, left (HCC)- Primary 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) 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) [facility]* Diagnosis Onset Date Resolution Status Epigastric abdominal pain ac [place] History of Posadas's esophagus acute 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 chronic Liver metastasis chronic UTI (urinary tract infection), uncomplicated acute [facility] Work Phone: Evaluation note* Diagnosis 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)- Primary Secondary malignant neoplasm of liver [facility] Diagnosis Breast cancer, stage 4, left (HCC)- Primary 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) Secondary malignant neoplasm of liver [facility]* Diagnosis Breast cancer, stage 4, left (HCC) HER2-positive carcinoma of breast (HCC) [facility] Diagnosis Local recurrence of cancer of left breast (HCC)- Primary 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) 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) [facility] Diagnosis 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)- Primary 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) [facility] Diagnosis Breast cancer, stage 4, left (HCC)- Primary 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) Secondary malignant neoplasm of liver [facility] Diagnosis Local recurrence of cancer of left breast (HCC)- Primary 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) 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) Encounter for monitoring cardiotoxic drug therapy Encounter for therapeutic drug monitoring [facility] Diagnosis HER2-positive carcinoma of breast (HCC) Liver metastases Secondary malignant neoplasm of liver [facility] Diagnosis Local recurrence of cancer of left breast (HCC) 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) 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) [facility]* Diagnosis Breast cancer, stage 4, left (HCC) 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) Secondary malignant neoplasm of liver [facility] Diagnosis Breast cancer, stage 4, left (HCC) 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) Secondary malignant neoplasm of liver [facility] Diagnosis Local recurrence of cancer of left breast (HCC)- Primary HER2-positive carcinoma of breast (HCC) [facility]* Diagnosis Breast cancer, stage 4, left (HCC)- Primary 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) Secondary malignant neoplasm of liver [facility] Diagnosis Malignant neoplasm of breast in female, estrogen receptor positive, unspecified laterality, unspecified site of breast (HCC) Liver metastases Secondary malignant neoplasm of liver [facility]* Diagnosis Stage IV breast cancer in female (HCC)- Primary Local recurrence of cancer of left breast (HCC) HER2-positive carcinoma of breast (HCC) [facility] Diagnosis 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)- Primary Secondary malignant neoplasm of liver Breast cancer, stage 4, left (HCC) HER2-positive carcinoma of breast (HCC) [facility] Diagnosis 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) Secondary malignant neoplasm of liver Local recurrence of cancer of left breast (HCC) [facility] Diagnosis Local recurrence of cancer of left breast (HCC)- Primary 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) Secondary malignant neoplasm of liver [facility] Diagnosis HER2-positive carcinoma of breast (HCC)- Primary HER2-positive carcinoma of breast (HCC) [facility] Diagnosis 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)- Primary 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) HER2-positive carcinoma of breast (HCC) [facility] Diagnosis Other osteoporosis- Primary Local recurrence of cancer of left breast (HCC) 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) 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) HER2-positive carcinoma of breast (HCC) [facility] Diagnosis Local recurrence of cancer of left breast (HCC)- Primary documented in this encounter [facility], stage 4, left (HCC) HER2-positive carcinoma of breast (HCC) [facility] Diagnosis HER2-positive carcinoma of breast (HCC)- Primary Breast cancer, stage 4, left (HCC) 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) Secondary malignant neoplasm of liver [facility] Diagnosis 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)- Primary 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) [facility]* Diagnosis Local recurrence of cancer of left breast (HCC)- Primary Seroma of breast [facility] Diagnosis Breast cancer, stage 4, left (HCC)- Primary 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) Secondary malignant neoplasm of liver [facility] Diagnosis Local recurrence of cancer of left breast (HCC)- Primary Stage IV breast cancer in female (HCC) [facility]* Diagnosis Carcinoma of left breast, stage 4 (HCC)- Primary 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, right (HCC) Seroma of breast HER2-positive carcinoma of left breast (HCC) [facility] Diagnosis Breast cancer, stage 4, left (HCC) 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) 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) [facility] Diagnosis Breast cancer, stage 4, left (HCC) 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) 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) [facility]* Diagnosis Seroma of breast- Primary [facility]* Diagnosis Carcinoma of left breast, stage 4 (HCC)- Primary Breast cancer, stage 4, left (HCC) HER2-positive carcinoma of breast (HCC) [facility]* Diagnosis Seroma of breast- Primary Breast cancer, stage 4, left (HCC) [facility]* Diagnosis 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, right (HCC)- Primary Seroma of breast [facility]* Diagnosis 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, right (HCC)- Primary Breast cancer, stage 4, left (HCC) 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) Secondary malignant neoplasm of liver HER2-positive carcinoma of left breast (HCC) [facility] Diagnosis 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, right (HCC)- Primary Breast cancer, stage 4, left (HCC) HER2-positive carcinoma of breast (HCC) [facility]* Diagnosis 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, right (HCC)- Primary 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) Secondary malignant neoplasm of liver HER2-positive carcinoma of left breast (HCC) New daily persistent headache [facility] Diagnosis Seroma of breast- Primary Stage IV breast cancer in female (HCC) [facility]* Diagnosis 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)- Primary 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) [facility]* Diagnosis HER2-positive carcinoma of breast (HCC)- Primary [facility]* Diagnosis 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) Secondary malignant neoplasm of [facility] Encounter for monitoring cardiotoxic drug therapy- Primary Encounter for therapeutic drug monitoring HER2-positive carcinoma of breast (HCC) [facility] Diagnosis 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)- Primary Secondary malignant neoplasm of liver Breast cancer, stage 4, left (HCC) HER2-positive carcinoma of breast (HCC) [facility] Diagnosis Encounter for monitoring cardiotoxic drug therapy Encounter for therapeutic drug monitoring HER2-positive carcinoma of breast (HCC) [facility]* Diagnosis Seroma of breast- Primary Excessive and redundant skin and subcutaneous tissue Seroma of breast Excessive and redundant skin and subcutaneous tissue [facility]* Diagnosis 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)- Primary Secondary malignant neoplasm of liver 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, 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) Seroma of breast Excessive and redundant skin and subcutaneous tissue [facility] Diagnosis 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)- Primary 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) 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, right (HCC) Seroma of breast Excessive and redundant skin and subcutaneous tissue [facility] Diagnosis 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) Secondary malignant neoplasm of liver 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, 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) Seroma of breast Excessive and redundant skin and subcutaneous tissue [facility] Diagnosis Seroma of breast- Primary Stage IV breast cancer in female (HCC) Seroma of breast Excessive and redundant skin and subcutaneous tissue [facility]* Diagnosis Grade I diastolic dysfunction- Primary Sleep apnea, unspecified type History of Posadas's esophagus Hypothyroidism, unspecified type Basal cell carcinoma (BCC), unspecified site Chronic back pain, unspecified back location, unspecified back pain laterality Anxiety and depression Dysthymic disorder TIA (transient ischemic attack) Unspecified transient cerebral ischemia Stage IV breast cancer in female (HCC) Seroma of breast Excessive and redundant skin and subcutaneous tissue * Assessment & Plan Note - Ariel, Little Davenport APRN.CNP - 11/21/2023 2:11 PM EDT Associated Problem(s): Stage IV breast cancer in female (HCC) Assessment: s/p a LEFT simple mastectomy for local control in the setting of stage IV diease on 06/28/2023. Final pathology reported IDC 1.6 cm with DCIS, Grade 3 (margins clear) LN not removed ER+MN+HER2+ Genetic testing negative She continues to have a recurrent - chronic LEFT mastectomy seroma Breast cancer hx: LEFT breast cancer in 2012, s/p lumpectomy, XRT. In 2020 diagnosed with metastatic breast cancer to her liver. Liver mass 3.2 cm. Imaging and biopsyshow a local recurrence LEFT breast cancer 1.7 cm mass with associated calcifications (span 4 cm) @1:00 position. S/p chemotherapy with a good clinical response in the liver. PET scan with continued update in the breast. [id number] - stage IV ER+MN+HER2+ * Assessment & Plan Note - Little George APRN.CNP - 11/21/2023 2:09 PM EDT Associated Problem(s): TIA (transient ischemic attack) Assessment: x3, daily Plavix, pt states PCP gave her instructions at last OV to hold 5 days prior to surgery pt confirmed. * Assessment & Plan Note - Little George APRN.CNP - 11/21/2023 2:09 PM EDT Associated Problem(s): Anxiety and depression Assessment: stable on rx per pt * Assessment & Plan Note - Little George APRN.CNP - 11/21/2023 2:09 PM EDT Associated Problem(s): Chronic back pain Assessment: hx back surgeries x2, rx as needed * Assessment & Plan Note - Little George APRN.CNP - 11/21/2023 2:08 PM EDT Associated Problem(s): BCC (basal cell carcinoma of skin) Assessment: s/p excision * Assessment & Plan Note - Little Geroge APRN.CNP - 11/21/2023 2:08 PM EDT Associated Problem(s): Hypothyroidism, unspecified Assessment: stable on rx * Assessment & Plan Note - Little George APRN.CNP - 11/21/2023 2:08 PM EDT Associated Problem(s): History of Posadas's esophagus Assessment: GERD, controlled on rx * Assessment & Plan Note - Little George APRN.CNP - 11/21/2023 2:08 PM EDT Associated Problem(s): Sleep apnea Assessment: non-compliant with CPAP * Assessment & Plan Note - Little George APRN.CNP - 11/21/2023 2:08 PM EDT Associated Problem(s): Grade I diastolic dysfunction Assessment: EF 60% 10/2023 Recent Results (from the past [id number] hour(s)) ECHO Collection Time: 11/04/23 10:35 AM Impression CONCLUSIONS: - Technically difficult exam due to body habitus and left mastectomy/seroma. - Exam indication: Baseline and serial evaluation in a patient undergoing therapy with cardiotoxic agents - The left ventricle is normal in size. Left ventricular systolic function is normal. EF = 60 5% (2D biplane) Grade I left ventricular diastolic dysfunction. - The right ventricle is normal in size. Right ventricular systolic function is normal. - Exam was compared with the prior echocardiographic exam performed on 04/18/2023, no significant change. * * * Final * * * [facility], stage 4, left (HCC) HER2-positive carcinoma of breast (HCC) Seroma of breast Excessive and redundant skin and subcutaneous tissue [facility] Diagnosis 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, 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) Local recurrence of cancer of left breast (HCC) Seroma of breast Excessive and redundant skin and subcutaneous tissue [facility] Diagnosis 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, right (HCC)- Primary 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) 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) Seroma of breast Excessive and redundant skin and subcutaneous tissue [facility] Diagnosis 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)- Primary 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) 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, right (HCC) Breast cancer, stage 4, left (HCC) [facility] Diagnosis HER2-positive carcinoma of left breast (HCC)- Primary [facility]* Diagnosis 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, right (HCC)- Primary [facility]* Diagnosis 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, 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) Local recurrence of cancer of left breast (HCC) [facility]* Diagnosis 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, right (HCC)- Primary Breast cancer, stage 4, left (HCC) 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) Secondary malignant neoplasm of liver [facility] Diagnosis 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, 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) 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) [facility] Diagnosis 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)- Primary 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) [facility]* Diagnosis Pre-operative examination- Primary Preoperative examination, unspecified Hypothyroidism, unspecified type History of Posadas's esophagus Sleep apnea, unspecified type Stage IV breast cancer in female (HCC) TIA (transient ischemic attack) Unspecified transient cerebral ischemia Grade I diastolic dysfunction Anxiety and depression Dysthymic disorder Basal cell carcinoma (BCC), unspecified site Chronic back pain, unspecified back location, unspecified back pain laterality Grade I diastolic dysfunction- Primary Sleep apnea, unspecified type History of Posadas's esophagus Hypothyroidism, unspecified type Basal cell carcinoma (BCC), unspecified site Chronic back pain, unspecified back location, unspecified back pain laterality Anxiety and depression Dysthymic disorder TIA (transient ischemic attack) Unspecified transient cerebral ischemia Stage IV breast cancer in female (HCC) 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, right (HCC)- Primary Breast cancer, stage 4, left (HCC) 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) Secondary malignant neoplasm of liver [facility] Diagnosis Pre-operative examination- Primary Preoperative examination, unspecified Hypothyroidism, unspecified type History of Posadas's esophagus Sleep apnea, unspecified type Stage IV breast cancer in female (HCC) TIA (transient ischemic attack) Unspecified transient cerebral ischemia Grade I diastolic dysfunction Anxiety and depression Dysthymic disorder Basal cell carcinoma (BCC), unspecified site Chronic back pain, unspecified back location, unspecified back pain laterality Grade I diastolic dysfunction- Primary Sleep apnea, unspecified type History of Posadas's esophagus Hypothyroidism, unspecified type Basal cell carcinoma (BCC), unspecified site Chronic back pain, unspecified back location, unspecified back pain laterality Anxiety and depression Dysthymic disorder TIA (transient ischemic attack) Unspecified transient cerebral ischemia Stage IV breast cancer in female (HCC) Seroma of breast- Primary documented in this encounter [facility]* Diagnosis Pre-operative examination- Primary Preoperative examination, unspecified Hypothyroidism, unspecified type History of Posadas's esophagus Sleep apnea, unspecified type Stage IV breast cancer in female (HCC) TIA (transient ischemic attack) Unspecified transient cerebral ischemia Grade I diastolic dysfunction Anxiety and depression Dysthymic disorder Basal cell carcinoma (BCC), unspecified site Chronic back pain, unspecified back location, unspecified back pain laterality Grade I diastolic dysfunction- Primary Sleep apnea, unspecified type History of Posadas's esophagus Hypothyroidism, unspecified type Basal cell carcinoma (BCC), unspecified site Chronic back pain, unspecified back location, unspecified back pain laterality Anxiety and depression Dysthymic disorder TIA (transient ischemic attack) Unspecified transient cerebral ischemia Stage IV breast cancer in female (HCC) 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)- Primary 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) documented in this encounter [facility]* Diagnosis Pre-operative examination- Primary Preoperative examination, unspecified Hypothyroidism, unspecified type History of Posadas's esophagus Sleep apnea, unspecified type Stage IV breast cancer in female (HCC) TIA (transient ischemic attack) Unspecified transient cerebral ischemia Grade I diastolic dysfunction Anxiety and depression Dysthymic disorder Basal cell carcinoma (BCC), unspecified site Chronic back pain, unspecified back location, unspecified back pain laterality Grade I diastolic dysfunction- Primary Sleep apnea, unspecified type History of Posadas's esophagus Hypothyroidism, unspecified type Basal cell carcinoma (BCC), unspecified site Chronic back pain, unspecified back location, unspecified back pain laterality Anxiety and depression Dysthymic disorder TIA (transient ischemic attack) Unspecified transient cerebral ischemia Stage IV breast cancer in female (HCC) 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, right (HCC)- Primary Breast cancer, stage 4, left (HCC) 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) Secondary malignant neoplasm of liver documented in this encounter [facility]* Diagnosis Pre-operative examination- Primary Preoperative examination, unspecified Hypothyroidism, unspecified type History of Posadas's esophagus Sleep apnea, unspecified type Stage IV breast cancer in female (HCC) TIA (transient ischemic attack) Unspecified transient cerebral ischemia Grade I diastolic dysfunction Anxiety and depression Dysthymic disorder Basal cell carcinoma (BCC), unspecified site Chronic back pain, unspecified back location, unspecified back pain laterality Grade I diastolic dysfunction- Primary Sleep apnea, unspecified type History of Posadas's esophagus Hypothyroidism, unspecified type Basal cell carcinoma (BCC), unspecified site Chronic back pain, unspecified back location, unspecified back pain laterality Anxiety and depression Dysthymic disorder TIA (transient ischemic attack) Unspecified transient cerebral ischemia Stage IV breast cancer in female (HCC) 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, right (HCC)- Primary 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) 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) [facility] Diagnosis Pre-operative examination- Primary Preoperative examination, unspecified Hypothyroidism, unspecified type History of Posadas's esophagus Sleep apnea, unspecified type Stage IV breast cancer in female (HCC) TIA (transient ischemic attack) Unspecified transient cerebral ischemia Grade I diastolic dysfunction Anxiety and depression Dysthymic disorder Basal cell carcinoma (BCC), unspecified site Chronic back pain, unspecified back location, unspecified back pain laterality Grade I diastolic dysfunction- Primary Sleep apnea, unspecified type History of Posadas's esophagus Hypothyroidism, unspecified type Basal cell carcinoma (BCC), unspecified site Chronic back pain, unspecified back location, unspecified back pain laterality Anxiety and depression Dysthymic disorder TIA (transient ischemic attack) Unspecified transient cerebral ischemia Stage IV breast cancer in female (HCC) 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, right (HCC)- Primary 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) 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) documented in this encounter [facility]* Diagnosis Pre-operative examination- Primary Preoperative examination, unspecified Hypothyroidism, unspecified type History of Posadas's esophagus Sleep apnea, unspecified type Stage IV breast cancer in female (HCC) TIA (transient ischemic attack) Unspecified transient cerebral ischemia Grade I diastolic dysfunction Anxiety and depression Dysthymic disorder Basal cell carcinoma (BCC), unspecified site Chronic back pain, unspecified back location, unspecified back pain laterality Grade I diastolic dysfunction- Primary Sleep apnea, unspecified type History of Posadas's esophagus Hypothyroidism, unspecified type Basal cell carcinoma (BCC), unspecified site Chronic back pain, unspecified back location, unspecified back pain laterality Anxiety and depression Dysthymic disorder TIA (transient ischemic attack) Unspecified transient cerebral ischemia Stage IV breast cancer in female (HCC) Stage IV breast cancer in female (HCC)- Primary Posadas's esophagus without dysplasia Posadas's esophagus 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, right (HCC)- Primary documented in this encounter [facility]* Diagnosis Pre-operative examination- Primary Preoperative examination, unspecified Hypothyroidism, unspecified type History of Posadas's esophagus Sleep apnea, unspecified type Stage IV breast cancer in female (HCC) TIA (transient ischemic attack) Unspecified transient cerebral ischemia Grade I diastolic dysfunction Anxiety and depression Dysthymic disorder Basal cell carcinoma (BCC), unspecified site Chronic back pain, unspecified back location, unspecified back pain laterality Grade I diastolic dysfunction- Primary Sleep apnea, unspecified type History of Posadas's esophagus Hypothyroidism, unspecified type Basal cell carcinoma (BCC), unspecified site Chronic back pain, unspecified back location, unspecified back pain laterality Anxiety and depression Dysthymic disorder TIA (transient ischemic attack) Unspecified transient cerebral ischemia Stage IV breast cancer in female (HCC) 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, right (HCC)- Primary documented in this encounter [facility]* Diagnosis Pre-operative examination- Primary Preoperative examination, unspecified Hypothyroidism, unspecified type History of Posadas's esophagus Sleep apnea, unspecified type Stage IV breast cancer in female (HCC) TIA (transient ischemic attack) Unspecified transient cerebral ischemia Grade I diastolic dysfunction Anxiety and depression Dysthymic disorder Basal cell carcinoma (BCC), unspecified site Chronic back pain, unspecified back location, unspecified back pain laterality Grade I diastolic dysfunction- Primary Sleep apnea, unspecified type History of Posadas's esophagus Hypothyroidism, unspecified type Basal cell carcinoma (BCC), unspecified site Chronic back pain, unspecified back location, unspecified back pain laterality Anxiety and depression Dysthymic disorder TIA (transient ischemic attack) Unspecified transient cerebral ischemia Stage IV breast cancer in female (HCC) HER2-positive carcinoma of left breast (HCC)- Primary 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) Secondary malignant neoplasm of liver 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, right (HCC) HER2-positive carcinoma of breast (HCC) Malignant neoplasm of female breast, unspecified estrogen receptor status, unspecified laterality, unspecified site of breast (HCC) documented in this encounter [facility]* Diagnosis HER2-positive carcinoma of breast (HCC) Pre-operative examination- Primary Preoperative examination, unspecified Hypothyroidism, unspecified type History of Posadas's esophagus Sleep apnea, unspecified type Stage IV breast cancer in female (HCC) TIA (transient ischemic attack) Unspecified transient cerebral ischemia Grade I diastolic dysfunction Anxiety and depression Dysthymic disorder Basal cell carcinoma (BCC), unspecified site Chronic back pain, unspecified back location, unspecified back pain laterality Grade I diastolic dysfunction- Primary Sleep apnea, unspecified type History of Posadas's esophagus Hypothyroidism, unspecified type Basal cell carcinoma (BCC), unspecified site Chronic back pain, unspecified back location, unspecified back pain laterality Anxiety and depression Dysthymic disorder TIA (transient ischemic attack) Unspecified transient cerebral ischemia Stage IV breast cancer in female (HCC) [facility] Diagnosis Pre-operative examination- Primary Preoperative examination, unspecified Hypothyroidism, unspecified type History of Posadas's esophagus Sleep apnea, unspecified type Stage IV breast cancer in female (HCC) TIA (transient ischemic attack) Unspecified transient cerebral ischemia Grade I diastolic dysfunction Anxiety and depression Dysthymic disorder Basal cell carcinoma (BCC), unspecified site Chronic back pain, unspecified back location, unspecified back pain laterality Grade I diastolic dysfunction- Primary Sleep apnea, unspecified type History of Posadas's esophagus Hypothyroidism, unspecified type Basal cell carcinoma (BCC), unspecified site Chronic back pain, unspecified back location, unspecified back pain laterality Anxiety and depression Dysthymic disorder TIA (transient ischemic attack) Unspecified transient cerebral ischemia Stage IV breast cancer in female (HCC) 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, right (HCC)- Primary Breast cancer, stage 4, left (HCC) 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) Secondary malignant [facility] Diagnosis Pre-operative examination- Primary Preoperative examination, unspecified Hypothyroidism, unspecified type History of Posadas's esophagus Sleep apnea, unspecified type Stage IV breast cancer in female (HCC) TIA (transient ischemic attack) Unspecified transient cerebral ischemia Grade I diastolic dysfunction Anxiety and depression Dysthymic disorder Basal cell carcinoma (BCC), unspecified site Chronic back pain, unspecified back location, unspecified back pain laterality Grade I diastolic dysfunction- Primary Sleep apnea, unspecified type History of Posadas's esophagus Hypothyroidism, unspecified type Basal cell carcinoma (BCC), unspecified site Chronic back pain, unspecified back location, unspecified back pain laterality Anxiety and depression Dysthymic disorder TIA (transient ischemic attack) Unspecified transient cerebral ischemia Stage IV breast cancer in female (HCC) 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)- Primary 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) [facility] Diagnosis Pre-operative examination- Primary Preoperative examination, unspecified Hypothyroidism, unspecified type History of Posadas's esophagus Sleep apnea, unspecified type Stage IV breast cancer in female (HCC) TIA (transient ischemic attack) Unspecified transient cerebral ischemia Grade I diastolic dysfunction Anxiety and depression Dysthymic disorder Basal cell carcinoma (BCC), unspecified site Chronic back pain, unspecified back location, unspecified back pain laterality Grade I diastolic dysfunction- Primary Sleep apnea, unspecified type History of Posadas's esophagus Hypothyroidism, unspecified type Basal cell carcinoma (BCC), unspecified site Chronic back pain, unspecified back location, unspecified back pain laterality Anxiety and depression Dysthymic disorder TIA (transient ischemic attack) Unspecified transient cerebral ischemia Stage IV breast cancer in female (HCC) 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) Secondary malignant neoplasm of liver 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, right (HCC) HER2-positive carcinoma of breast (HCC) [facility]* Diagnosis Pre-operative examination- Primary Preoperative examination, unspecified Hypothyroidism, unspecified type History of Posadas's esophagus Sleep apnea, unspecified type Stage IV breast cancer in female (HCC) TIA (transient ischemic attack) Unspecified transient cerebral ischemia Grade I diastolic dysfunction Anxiety and depression Dysthymic disorder Basal cell carcinoma (BCC), unspecified site Chronic back pain, unspecified back location, unspecified back pain laterality Grade I diastolic dysfunction- Primary Sleep apnea, unspecified type History of Posadas's esophagus Hypothyroidism, unspecified type Basal cell carcinoma (BCC), unspecified site Chronic back pain, unspecified back location, unspecified back pain laterality Anxiety and depression Dysthymic disorder TIA (transient ischemic attack) Unspecified transient cerebral ischemia Stage IV breast cancer in female (HCC) Carcinoma of left breast, stage 4 (HCC)- Primary documented in this encounter [facility] note* Diagnosis Pre-operative examination- Primary Preoperative examination, unspecified Hypothyroidism, unspecified type History of Posadas's esophagus Sleep apnea, unspecified type Stage IV breast cancer in female (HCC) TIA (transient ischemic attack) Unspecified transient cerebral ischemia Grade I diastolic dysfunction Anxiety and depression Dysthymic disorder Basal cell carcinoma (BCC), unspecified site Chronic back pain, unspecified back location, unspecified back pain laterality Grade I diastolic dysfunction- Primary Sleep apnea, unspecified type History of Posadas's esophagus Hypothyroidism, unspecified type Basal cell carcinoma (BCC), unspecified site Chronic back pain, unspecified back location, unspecified back pain laterality Anxiety and depression Dysthymic disorder TIA (transient ischemic attack) Unspecified transient cerebral ischemia Stage IV breast cancer in female (HCC) Breast cancer, stage 4, left (HCC) 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) Secondary malignant neoplasm of liver [facility]* Diagnosis Pre-operative examination- Primary Preoperative examination, unspecified Hypothyroidism, unspecified type History of Posadas's esophagus Sleep apnea, unspecified type Stage IV breast cancer in female (HCC) TIA (transient ischemic attack) Unspecified transient cerebral ischemia Grade I diastolic dysfunction Anxiety and depression Dysthymic disorder Basal cell carcinoma (BCC), unspecified site Chronic back pain, unspecified back location, unspecified back pain laterality Grade I diastolic dysfunction- Primary Sleep apnea, unspecified type History of Posadas's esophagus Hypothyroidism, unspecified type Basal cell carcinoma (BCC), unspecified site Chronic back pain, unspecified back location, unspecified back pain laterality Anxiety and depression Dysthymic disorder TIA (transient ischemic attack) Unspecified transient cerebral ischemia Stage IV breast cancer in female (HCC) 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, right (HCC)- Primary 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) Secondary malignant neoplasm of liver documented in this encounter [facility] note* Diagnosis Pre-operative examination- Primary Preoperative examination, unspecified Hypothyroidism, unspecified type History of Posadas's esophagus Sleep apnea, unspecified type Stage IV breast cancer in female (HCC) TIA (transient ischemic attack) Unspecified transient cerebral ischemia Grade I diastolic dysfunction Anxiety and depression Dysthymic disorder Basal cell carcinoma (BCC), unspecified site Chronic back pain, unspecified back location, unspecified back pain laterality Grade I diastolic dysfunction- Primary Sleep apnea, unspecified type History of Posadas's esophagus Hypothyroidism, unspecified type Basal cell carcinoma (BCC), unspecified site Chronic back pain, unspecified back location, unspecified back pain laterality Anxiety and depression Dysthymic disorder TIA (transient ischemic attack) Unspecified transient cerebral ischemia Stage IV breast cancer in female (HCC) 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)- Primary 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) documented in this encounter [facility] note* Diagnosis Pre-operative examination- Primary Preoperative examination, unspecified Hypothyroidism, unspecified type History of Posadas's esophagus Sleep apnea, unspecified type Stage IV breast cancer in female (HCC) TIA (transient ischemic attack) Unspecified transient cerebral ischemia Grade I diastolic dysfunction Anxiety and depression Dysthymic disorder Basal cell carcinoma (BCC), unspecified site Chronic back pain, unspecified back location, unspecified back pain laterality Grade I diastolic dysfunction- Primary Sleep apnea, unspecified type History of Posadas's esophagus Hypothyroidism, unspecified type Basal cell carcinoma (BCC), unspecified site Chronic back pain, unspecified back location, unspecified back pain laterality Anxiety and depression Dysthymic disorder TIA (transient ischemic attack) Unspecified transient cerebral ischemia Stage IV breast cancer in female (HCC) Malignant neoplasm of female breast, unspecified estrogen receptor status, unspecified laterality, unspecified site of breast (HCC)- Primary 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) Secondary malignant neoplasm of liver Encounter for monitoring cardiotoxic drug therapy Encounter for therapeutic drug monitoring documented in this encounter [facility] note* Diagnosis Pre-operative examination- Primary Preoperative examination, unspecified Hypothyroidism, unspecified type History of Posadas's esophagus Sleep apnea, unspecified type Stage IV breast cancer in female (HCC) TIA (transient ischemic attack) Unspecified transient cerebral ischemia Grade I diastolic dysfunction Anxiety and depression Dysthymic disorder Basal cell carcinoma (BCC), unspecified site Chronic back pain, unspecified back location, unspecified back pain laterality Grade I diastolic dysfunction- Primary Sleep apnea, unspecified type History of Posadas's esophagus Hypothyroidism, unspecified type Basal cell carcinoma (BCC), unspecified site Chronic back pain, unspecified back location, unspecified back pain laterality Anxiety and depression Dysthymic disorder TIA (transient ischemic attack) Unspecified transient cerebral ischemia Stage IV breast cancer in female (HCC) Breast cancer, stage 4, left (HCC) 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) Secondary malignant neoplasm of liver documented in this encounter [facility] note* Diagnosis Pre-operative examination- Primary Preoperative examination, unspecified Hypothyroidism, unspecified type History of Posadas's esophagus Sleep apnea, unspecified type Stage IV breast cancer in female (HCC) TIA (transient ischemic attack) Unspecified transient cerebral ischemia Grade I diastolic dysfunction Anxiety and depression Dysthymic disorder Basal cell carcinoma (BCC), unspecified site Chronic back pain, unspecified back location, unspecified back pain laterality Grade I diastolic dysfunction- Primary Sleep apnea, unspecified type History of Posadas's esophagus Hypothyroidism, unspecified type Basal cell carcinoma (BCC), unspecified site Chronic back pain, unspecified back location, unspecified back pain laterality Anxiety and depression Dysthymic disorder TIA (transient ischemic attack) Unspecified transient cerebral ischemia Stage IV breast cancer in female (HCC) 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)- Primary 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) [facility]* Diagnosis Pre-operative examination- Primary Preoperative examination, unspecified Hypothyroidism, unspecified type History of Posadas's esophagus Sleep apnea, unspecified type Stage IV breast cancer in female (HCC) TIA (transient ischemic attack) Unspecified transient cerebral ischemia Grade I diastolic dysfunction Anxiety and depression Dysthymic disorder Basal cell carcinoma (BCC), unspecified site Chronic back pain, unspecified back location, unspecified back pain laterality Grade I diastolic dysfunction- Primary Sleep apnea, unspecified type History of Posadas's esophagus Hypothyroidism, unspecified type Basal cell carcinoma (BCC), unspecified site Chronic back pain, unspecified back location, unspecified back pain laterality Anxiety and depression Dysthymic disorder TIA (transient ischemic attack) Unspecified transient cerebral ischemia Stage IV breast cancer in female (HCC) 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, right (HCC)- Primary Breast cancer, stage 4, left (HCC) 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) Secondary malignant neoplasm of liver [facility]* Diagnosis Pre-operative examination- Primary Preoperative examination, unspecified Hypothyroidism, unspecified type History of Posadas's esophagus Sleep apnea, unspecified type Stage IV breast cancer in female (HCC) TIA (transient ischemic attack) Unspecified transient cerebral ischemia Grade I diastolic dysfunction Anxiety and depression Dysthymic disorder Basal cell carcinoma (BCC), unspecified site Chronic back pain, unspecified back location, unspecified back pain laterality Grade I diastolic dysfunction- Primary Sleep apnea, unspecified type History of Posadas's esophagus Hypothyroidism, unspecified type Basal cell carcinoma (BCC), unspecified site Chronic back pain, unspecified back location, unspecified back pain laterality Anxiety and depression Dysthymic disorder TIA (transient ischemic attack) Unspecified transient cerebral ischemia Stage IV breast cancer in female (HCC) Malignant neoplasm of female breast, unspecified estrogen receptor status, unspecified laterality, unspecified site of breast (HCC)- Primary HER2-positive carcinoma of breast (HCC) documented in this encounter [facility] note* Diagnosis Pre-operative examination- Primary Preoperative examination, unspecified Hypothyroidism, unspecified type History of Posadas's esophagus Sleep apnea, unspecified type Stage IV breast cancer in female (HCC) TIA (transient ischemic attack) Unspecified transient cerebral ischemia Grade I diastolic dysfunction Anxiety and depression Dysthymic disorder Basal cell carcinoma (BCC), unspecified site Chronic back pain, unspecified back location, unspecified back pain laterality Grade I diastolic dysfunction- Primary Sleep apnea, unspecified type History of Posadas's esophagus Hypothyroidism, unspecified type Basal cell carcinoma (BCC), unspecified site Chronic back pain, unspecified back location, unspecified back pain laterality Anxiety and depression Dysthymic disorder TIA (transient ischemic attack) Unspecified transient cerebral ischemia Stage IV breast cancer in female (HCC) 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, right (HCC)- Primary 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) 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) documented in this encounter [facility] note* Diagnosis Pre-operative examination- Primary Preoperative examination, unspecified Hypothyroidism, unspecified type History of Posadas's esophagus Sleep apnea, unspecified type Stage IV breast cancer in female (HCC) TIA (transient ischemic attack) Unspecified transient cerebral ischemia Grade I diastolic dysfunction Anxiety and depression Dysthymic disorder Basal cell carcinoma (BCC), unspecified site Chronic back pain, unspecified back location, unspecified back pain laterality Grade I diastolic dysfunction- Primary Sleep apnea, unspecified type History of Posadas's esophagus Hypothyroidism, unspecified type Basal cell carcinoma (BCC), unspecified site Chronic back pain, unspecified back location, unspecified back pain laterality Anxiety and depression Dysthymic disorder TIA (transient ischemic attack) Unspecified transient cerebral ischemia Stage IV breast cancer in female (HCC) 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, right (HCC)- Primary 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) Secondary malignant neoplasm of liver Breast cancer, stage 4, left (HCC) HER2-positive carcinoma of left breast (HCC) [facility]* Diagnosis Pre-operative examination- Primary Preoperative examination, unspecified Hypothyroidism, unspecified type History of Posadas's esophagus Sleep apnea, unspecified type Stage IV breast cancer in female (HCC) TIA (transient ischemic attack) Unspecified transient cerebral ischemia Grade I diastolic dysfunction Anxiety and depression Dysthymic disorder Basal cell carcinoma (BCC), unspecified site Chronic back pain, unspecified back location, unspecified back pain laterality Grade I diastolic dysfunction- Primary Sleep apnea, unspecified type History of Posadas's esophagus Hypothyroidism, unspecified type Basal cell carcinoma (BCC), unspecified site Chronic back pain, unspecified back location, unspecified back pain laterality Anxiety and depression Dysthymic disorder TIA (transient ischemic attack) Unspecified transient cerebral ischemia Stage IV breast cancer in female (HCC) 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)- Primary 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) documented in this encounter [facility] note* Diagnosis Pre-operative examination- Primary Preoperative examination, unspecified Hypothyroidism, unspecified type History of Posadas's esophagus Sleep apnea, unspecified type Stage IV breast cancer in female (HCC) TIA (transient ischemic attack) Unspecified transient cerebral ischemia Grade I diastolic dysfunction Anxiety and depression Dysthymic disorder Basal cell carcinoma (BCC), unspecified site Chronic back pain, unspecified back location, unspecified back pain laterality Grade I diastolic dysfunction- Primary Sleep apnea, unspecified type History of Posadas's esophagus Hypothyroidism, unspecified type Basal cell carcinoma (BCC), unspecified site Chronic back pain, unspecified back location, unspecified back pain laterality Anxiety and depression Dysthymic disorder TIA (transient ischemic attack) Unspecified transient cerebral ischemia Stage IV breast cancer in female (HCC) Breast cancer, stage 4, left (HCC) 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) Secondary malignant neoplasm of liver documented in this encounter [facility] note* Diagnosis Pre-operative examination- Primary Preoperative examination, unspecified Hypothyroidism, unspecified type History of Posadas's esophagus Sleep apnea, unspecified type Stage IV breast cancer in female (HCC) TIA (transient ischemic attack) Unspecified transient cerebral ischemia Grade I diastolic dysfunction Anxiety and depression Dysthymic disorder Basal cell carcinoma (BCC), unspecified site Chronic back pain, unspecified back location, unspecified back pain laterality Grade I diastolic dysfunction- Primary Sleep apnea, unspecified type History of Posadas's esophagus Hypothyroidism, unspecified type Basal cell carcinoma (BCC), unspecified site Chronic back pain, unspecified back location, unspecified back pain laterality Anxiety and depression Dysthymic disorder TIA (transient ischemic attack) Unspecified transient cerebral ischemia Stage IV breast cancer in female (HCC) Malignant neoplasm of female breast, unspecified estrogen receptor status, unspecified laterality, unspecified site of breast (HCC)- Primary 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) Secondary malignant neoplasm of liver Thrombocytosis Essential thrombocythemia Viral URI Acute upper respiratory infections of unspecified site [facility]* Diagnosis Pre-operative examination- Primary Preoperative examination, unspecified Hypothyroidism, unspecified type History of Posadas's esophagus Sleep apnea, unspecified type Stage IV breast cancer in female (HCC) TIA (transient ischemic attack) Unspecified transient cerebral ischemia Grade I diastolic dysfunction Anxiety and depression Dysthymic disorder Basal cell carcinoma (BCC), unspecified site Chronic back pain, unspecified back location, unspecified back pain laterality Grade I diastolic dysfunction- Primary Sleep apnea, unspecified type History of Posadas's esophagus Hypothyroidism, unspecified type Basal cell carcinoma (BCC), unspecified site Chronic back pain, unspecified back location, unspecified back pain laterality Anxiety and depression Dysthymic disorder TIA (transient ischemic attack) Unspecified transient cerebral ischemia Stage IV breast cancer in female (HCC) 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, right (HCC)- Primary Thrombocytosis Essential thrombocythemia 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) 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) documented in this encounter [facility] note* Diagnosis Pre-operative examination- Primary Preoperative examination, unspecified Hypothyroidism, unspecified type History of Posadas's esophagus Sleep apnea, unspecified type Stage IV breast cancer in female (HCC) TIA (transient ischemic attack) Unspecified transient cerebral ischemia Grade I diastolic dysfunction Anxiety and depression Dysthymic disorder Basal cell carcinoma (BCC), unspecified site Chronic back pain, unspecified back location, unspecified back pain laterality Grade I diastolic dysfunction- Primary Sleep apnea, unspecified type History of Posadas's esophagus Hypothyroidism, unspecified type Basal cell carcinoma (BCC), unspecified site Chronic back pain, unspecified back location, unspecified back pain laterality Anxiety and depression Dysthymic disorder TIA (transient ischemic attack) Unspecified transient cerebral ischemia Stage IV breast cancer in female (HCC) Flank hernia- Primary Hernia of other specified sites of abdominal cavity without mention of obstruction or gangrene [facility]* Diagnosis Pre-operative examination- Primary Preoperative examination, unspecified Hypothyroidism, unspecified type History of Posadas's esophagus Sleep apnea, unspecified type Stage IV breast cancer in female (HCC) TIA (transient ischemic attack) Unspecified transient cerebral ischemia Grade I diastolic dysfunction Anxiety and depression Dysthymic disorder Basal cell carcinoma (BCC), unspecified site Chronic back pain, unspecified back location, unspecified back pain laterality Grade I diastolic dysfunction- Primary Sleep apnea, unspecified type History of Posadas's esophagus Hypothyroidism, unspecified type Basal cell carcinoma (BCC), unspecified site Chronic back pain, unspecified back location, unspecified back pain laterality Anxiety and depression Dysthymic disorder TIA (transient ischemic attack) Unspecified transient cerebral ischemia Stage IV breast cancer in female (HCC) 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, right (HCC)- Primary documented in this encounter [facility] note* Diagnosis Pre-operative examination- Primary Preoperative examination, unspecified Hypothyroidism, unspecified type History of Posadas's esophagus Sleep apnea, unspecified type Stage IV breast cancer in female (HCC) TIA (transient ischemic attack) Unspecified transient cerebral ischemia Grade I diastolic dysfunction Anxiety and depression Dysthymic disorder Basal cell carcinoma (BCC), unspecified site Chronic back pain, unspecified back location, unspecified back pain laterality Grade I diastolic dysfunction- Primary Sleep apnea, unspecified type History of Posadas's esophagus Hypothyroidism, unspecified type Basal cell carcinoma (BCC), unspecified site Chronic back pain, unspecified back location, unspecified back pain laterality Anxiety and depression Dysthymic disorder TIA (transient ischemic attack) Unspecified transient cerebral ischemia Stage IV breast cancer in female (HCC) Malignant neoplasm of female breast, unspecified estrogen receptor status, unspecified laterality, unspecified site of breast (HCC) 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) Secondary malignant neoplasm of liver documented in this encounter [facility] note* Diagnosis Pre-operative examination- Primary Preoperative examination, unspecified Hypothyroidism, unspecified type History of Posadas's esophagus Sleep apnea, unspecified type Stage IV breast cancer in female (HCC) TIA (transient ischemic attack) Unspecified transient cerebral ischemia Grade I diastolic dysfunction Anxiety and depression Dysthymic disorder Basal cell carcinoma (BCC), unspecified site Chronic back pain, unspecified back location, unspecified back pain laterality Grade I diastolic dysfunction- Primary Sleep apnea, unspecified type History of Posadas's esophagus Hypothyroidism, unspecified type Basal cell carcinoma (BCC), unspecified site Chronic back pain, unspecified back location, unspecified back pain laterality Anxiety and depression Dysthymic disorder TIA (transient ischemic attack) Unspecified transient cerebral ischemia Stage IV breast cancer in female (HCC) Breast cancer, stage 4, left (HCC) 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) Secondary malignant neoplasm of liver documented in this encounter [facility] note* Diagnosis Pre-operative examination- Primary Preoperative examination, unspecified Hypothyroidism, unspecified type History of Posadas's esophagus Sleep apnea, unspecified type Stage IV breast cancer in female (HCC) TIA (transient ischemic attack) Unspecified transient cerebral ischemia Grade I diastolic dysfunction Anxiety and depression Dysthymic disorder Basal cell carcinoma (BCC), unspecified site Chronic back pain, unspecified back location, unspecified back pain laterality Grade I diastolic dysfunction- Primary Sleep apnea, unspecified type History of Posadas's esophagus Hypothyroidism, unspecified type Basal cell carcinoma (BCC), unspecified site Chronic back pain, unspecified back location, unspecified back pain laterality Anxiety and depression Dysthymic disorder TIA (transient ischemic attack) Unspecified transient cerebral ischemia Stage IV breast cancer in female (HCC) Malignant neoplasm of female breast, unspecified estrogen receptor status, unspecified laterality, unspecified site of breast (HCC) 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) Secondary malignant neoplasm of liver documented in this encounter [facility] note* Diagnosis Pre-operative examination- Primary Preoperative examination, unspecified Hypothyroidism, unspecified type History of Posadas's esophagus Sleep apnea, unspecified type Stage IV breast cancer in female (HCC) TIA (transient ischemic attack) Unspecified transient cerebral ischemia Grade I diastolic dysfunction Anxiety and depression Dysthymic disorder Basal cell carcinoma (BCC), unspecified site Chronic back pain, unspecified back location, unspecified back pain laterality Grade I diastolic dysfunction- Primary Sleep apnea, unspecified type History of Posadas's esophagus Hypothyroidism, unspecified type Basal cell carcinoma (BCC), unspecified site Chronic back pain, unspecified back location, unspecified back pain laterality Anxiety and depression Dysthymic disorder TIA (transient ischemic attack) Unspecified transient cerebral ischemia Stage IV breast cancer in female (HCC) 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, 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) 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) [facility] Diagnosis Pre-operative examination- Primary Preoperative examination, unspecified Hypothyroidism, unspecified type History of Posadas's esophagus Sleep apnea, unspecified type Stage IV breast cancer in female (HCC) TIA (transient ischemic attack) Unspecified transient cerebral ischemia Grade I diastolic dysfunction Anxiety and depression Dysthymic disorder Basal cell carcinoma (BCC), unspecified site Chronic back pain, unspecified back location, unspecified back pain laterality Grade I diastolic dysfunction- Primary Sleep apnea, unspecified type History of Posadas's esophagus Hypothyroidism, unspecified type Basal cell carcinoma (BCC), unspecified site Chronic back pain, unspecified back location, unspecified back pain laterality Anxiety and depression Dysthymic disorder TIA (transient ischemic attack) Unspecified transient cerebral ischemia Stage IV breast cancer in female (HCC) Flank hernia- Primary Hernia of other specified sites of abdominal cavity without mention of obstruction or gangrene [facility] Diagnosis Pre-operative examination- Primary Preoperative examination, unspecified Hypothyroidism, unspecified type History of Posadas's esophagus Sleep apnea, unspecified type Stage IV breast cancer in female (HCC) TIA (transient ischemic attack) Unspecified transient cerebral ischemia Grade I diastolic dysfunction Anxiety and depression Dysthymic disorder Basal cell carcinoma (BCC), unspecified site Chronic back pain, unspecified back location, unspecified back pain laterality Grade I diastolic dysfunction- Primary Sleep apnea, unspecified type History of Posadas's esophagus Hypothyroidism, unspecified type Basal cell carcinoma (BCC), unspecified site Chronic back pain, unspecified back location, unspecified back pain laterality Anxiety and depression Dysthymic disorder TIA (transient ischemic attack) Unspecified transient cerebral ischemia Stage IV breast cancer in female (HCC) Breast cancer, stage 4, left (HCC) 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) Secondary malignant neoplasm of liver [facility] Diagnosis Pre-operative examination- Primary Preoperative examination, unspecified Hypothyroidism, unspecified type History of Posadas's esophagus Sleep apnea, unspecified type Stage IV breast cancer in female (HCC) TIA (transient ischemic attack) Unspecified transient cerebral ischemia Grade I diastolic dysfunction Anxiety and depression Dysthymic disorder Basal cell carcinoma (BCC), unspecified site Chronic back pain, unspecified back location, unspecified back pain laterality Grade I diastolic dysfunction- Primary Sleep apnea, unspecified type History of Posadas's esophagus Hypothyroidism, unspecified type Basal cell carcinoma (BCC), unspecified site Chronic back pain, unspecified back location, unspecified back pain laterality Anxiety and depression Dysthymic disorder TIA (transient ischemic attack) Unspecified transient cerebral ischemia Stage IV breast cancer in female (HCC) Malignant neoplasm of female breast, unspecified estrogen receptor status, unspecified laterality, unspecified site of breast (HCC)- Primary HER2-positive carcinoma of left breast (HCC) Encounter for monitoring cardiotoxic drug therapy Encounter for therapeutic drug monitoring [facility] Diagnosis Pre-operative examination- Primary Preoperative examination, unspecified Hypothyroidism, unspecified type History of Posadas's esophagus Sleep apnea, unspecified type Stage IV breast cancer in female (HCC) TIA (transient ischemic attack) Unspecified transient cerebral ischemia Grade I diastolic dysfunction Anxiety and depression Dysthymic disorder Basal cell carcinoma (BCC), unspecified site Chronic back pain, unspecified back location, unspecified back pain laterality Grade I diastolic dysfunction- Primary Sleep apnea, unspecified type History of Posadas's esophagus Hypothyroidism, unspecified type Basal cell carcinoma (BCC), unspecified site Chronic back pain, unspecified back location, unspecified back pain laterality Anxiety and depression Dysthymic disorder TIA (transient ischemic attack) Unspecified transient cerebral ischemia Stage IV breast cancer in female (HCC) 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, 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) 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) [facility] Diagnosis Pre-operative examination- Primary Preoperative examination, unspecified Hypothyroidism, unspecified type History of Posadas's esophagus Sleep apnea, unspecified type Stage IV breast cancer in female (HCC) TIA (transient ischemic attack) Unspecified transient cerebral ischemia Grade I diastolic dysfunction Anxiety and depression Dysthymic disorder Basal cell carcinoma (BCC), unspecified site Chronic back pain, unspecified back location, unspecified back pain laterality Grade I diastolic dysfunction- Primary Sleep apnea, unspecified type History of Posadas's esophagus Hypothyroidism, unspecified type Basal cell carcinoma (BCC), unspecified site Chronic back pain, unspecified back location, unspecified back pain laterality Anxiety and depression Dysthymic disorder TIA (transient ischemic attack) Unspecified transient cerebral ischemia Stage IV breast cancer in female (HCC) 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, right (HCC)- Primary Breast cancer, stage 4, left (HCC) 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) Secondary malignant neoplasm of liver documented in this encounter [facility] note* Diagnosis Pre-operative examination- Primary Preoperative examination, unspecified Hypothyroidism, unspecified type History of Posadas's esophagus Sleep apnea, unspecified type Stage IV breast cancer in female (HCC) TIA (transient ischemic attack) Unspecified transient cerebral ischemia Grade I diastolic dysfunction Anxiety and depression Dysthymic disorder Basal cell carcinoma (BCC), unspecified site Chronic back pain, unspecified back location, unspecified back pain laterality Grade I diastolic dysfunction- Primary Sleep apnea, unspecified type History of Posadas's esophagus Hypothyroidism, unspecified type Basal cell carcinoma (BCC), unspecified site Chronic back pain, unspecified back location, unspecified back pain laterality Anxiety and depression Dysthymic disorder TIA (transient ischemic attack) Unspecified transient cerebral ischemia Stage IV breast cancer in female (HCC) Nonspecific pain in the lumbar region- Primary Lumbago Pain, lumbar region Lumbago documented in this encounter [facility] note* Diagnosis Pre-operative examination- Primary Preoperative examination, unspecified Hypothyroidism, unspecified type History of Posadas's esophagus Sleep apnea, unspecified type Stage IV breast cancer in female (HCC) TIA (transient ischemic attack) Unspecified transient cerebral ischemia Grade I diastolic dysfunction Anxiety and depression Dysthymic disorder Basal cell carcinoma (BCC), unspecified site Chronic back pain, unspecified back location, unspecified back pain laterality Grade I diastolic dysfunction- Primary Sleep apnea, unspecified type History of Posadas's esophagus Hypothyroidism, unspecified type Basal cell carcinoma (BCC), unspecified site Chronic back pain, unspecified back location, unspecified back pain laterality Anxiety and depression Dysthymic disorder TIA (transient ischemic attack) Unspecified transient cerebral ischemia Stage IV breast cancer in female (HCC) Breast cancer, stage 4, left (HCC) 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) Secondary malignant neoplasm of liver Pain, lumbar region Lumbago Nonspecific pain in the lumbar region Lumbago documented in this encounter [facility] note* Diagnosis Pre-operative examination- Primary Preoperative examination, unspecified Hypothyroidism, unspecified type History of Posadas's esophagus Sleep apnea, unspecified type Stage IV breast cancer in female (HCC) TIA (transient ischemic attack) Unspecified transient cerebral ischemia Grade I diastolic dysfunction Anxiety and depression Dysthymic disorder Basal cell carcinoma (BCC), unspecified site Chronic back pain, unspecified back location, unspecified back pain laterality Grade I diastolic dysfunction- Primary Sleep apnea, unspecified type History of Posadas's esophagus Hypothyroidism, unspecified type Basal cell carcinoma (BCC), unspecified site Chronic back pain, unspecified back location, unspecified back pain laterality Anxiety and depression Dysthymic disorder TIA (transient ischemic attack) Unspecified transient cerebral ischemia Stage IV breast cancer in female (HCC) Malignant neoplasm of female breast, unspecified estrogen receptor status, unspecified laterality, unspecified site of breast (HCC)- Primary HER2-positive carcinoma of left breast (HCC) documented in this encounter [facility] note* Diagnosis Pre-operative examination- Primary Preoperative examination, unspecified Hypothyroidism, unspecified type History of Posadas's esophagus Sleep apnea, unspecified type Stage IV breast cancer in female (HCC) TIA (transient ischemic attack) Unspecified transient cerebral ischemia Grade I diastolic dysfunction Anxiety and depression Dysthymic disorder Basal cell carcinoma (BCC), unspecified site Chronic back pain, unspecified back location, unspecified back pain laterality Grade I diastolic dysfunction- Primary Sleep apnea, unspecified type History of Posadas's esophagus Hypothyroidism, unspecified type Basal cell carcinoma (BCC), unspecified site Chronic back pain, unspecified back location, unspecified back pain laterality Anxiety and depression Dysthymic disorder TIA (transient ischemic attack) Unspecified transient cerebral ischemia Stage IV breast cancer in female (HCC) 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, 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) 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) documented in this encounter [facility] note* Diagnosis Pre-operative examination- Primary Preoperative examination, unspecified Hypothyroidism, unspecified type History of Posadas's esophagus Sleep apnea, unspecified type Stage IV breast cancer in female (HCC) TIA (transient ischemic attack) Unspecified transient cerebral ischemia Grade I diastolic dysfunction Anxiety and depression Dysthymic disorder Basal cell carcinoma (BCC), unspecified site Chronic back pain, unspecified back location, unspecified back pain laterality Grade I diastolic dysfunction- Primary Sleep apnea, unspecified type History of Posadas's esophagus Hypothyroidism, unspecified type Basal cell carcinoma (BCC), unspecified site Chronic back pain, unspecified back location, unspecified back pain laterality Anxiety and depression Dysthymic disorder TIA (transient ischemic attack) Unspecified transient cerebral ischemia Stage IV breast cancer in female (HCC) Abnormal MRI, spine- Primary Nonspecific (abnormal) findings on radiological and other examination of musculoskeletal system Abnormal MRI, spine Nonspecific (abnormal) findings on radiological and other examination of musculoskeletal system [facility]* Diagnosis Pre-operative examination- Primary Preoperative examination, unspecified Hypothyroidism, unspecified type History of Posadas's esophagus Sleep apnea, unspecified type Stage IV breast cancer in female (HCC) TIA (transient ischemic attack) Unspecified transient cerebral ischemia Grade I diastolic dysfunction Anxiety and depression Dysthymic disorder Basal cell carcinoma (BCC), unspecified site Chronic back pain, unspecified back location, unspecified back pain laterality Grade I diastolic dysfunction- Primary Sleep apnea, unspecified type History of Posadas's esophagus Hypothyroidism, unspecified type Basal cell carcinoma (BCC), unspecified site Chronic back pain, unspecified back location, unspecified back pain laterality Anxiety and depression Dysthymic disorder TIA (transient ischemic attack) Unspecified transient cerebral ischemia Stage IV breast cancer in female (HCC) 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, right (HCC)- Primary Breast cancer, stage 4, left (HCC) 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) Secondary malignant neoplasm of liver documented in this encounter [facility] note* Diagnosis Pre-operative examination- Primary Preoperative examination, unspecified Hypothyroidism, unspecified type History of Posadas's esophagus Sleep apnea, unspecified type Stage IV breast cancer in female (HCC) TIA (transient ischemic attack) Unspecified transient cerebral ischemia Grade I diastolic dysfunction Anxiety and depression Dysthymic disorder Basal cell carcinoma (BCC), unspecified site Chronic back pain, unspecified back location, unspecified back pain laterality Grade I diastolic dysfunction- Primary Sleep apnea, unspecified type History of Posadas's esophagus Hypothyroidism, unspecified type Basal cell carcinoma (BCC), unspecified site Chronic back pain, unspecified back location, unspecified back pain laterality Anxiety and depression Dysthymic disorder TIA (transient ischemic attack) Unspecified transient cerebral ischemia Stage IV breast cancer in female (HCC) 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, 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) 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) [facility]* Diagnosis Pre-operative examination- Primary Preoperative examination, unspecified Hypothyroidism, unspecified type History of Posadas's esophagus Sleep apnea, unspecified type Stage IV breast cancer in female (HCC) TIA (transient ischemic attack) Unspecified transient cerebral ischemia Grade I diastolic dysfunction Anxiety and depression Dysthymic disorder Basal cell carcinoma (BCC), unspecified site Chronic back pain, unspecified back location, unspecified back pain laterality Grade I diastolic dysfunction- Primary Sleep apnea, unspecified type History of Posadas's esophagus Hypothyroidism, unspecified type Basal cell carcinoma (BCC), unspecified site Chronic back pain, unspecified back location, unspecified back pain laterality Anxiety and depression Dysthymic disorder TIA (transient ischemic attack) Unspecified transient cerebral ischemia Stage IV breast cancer in female (HCC) Breast cancer, stage 4, left (HCC)- Primary 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) Secondary malignant neoplasm of liver [facility]* Diagnosis Pre-operative examination- Primary Preoperative examination, unspecified Hypothyroidism, unspecified type History of Posadas's esophagus Sleep apnea, unspecified type Stage IV breast cancer in female (HCC) TIA (transient ischemic attack) Unspecified transient cerebral ischemia Grade I diastolic dysfunction Anxiety and depression Dysthymic disorder Basal cell carcinoma (BCC), unspecified site Chronic back pain, unspecified back location, unspecified back pain laterality Grade I diastolic dysfunction- Primary Sleep apnea, unspecified type History of Posadas's esophagus Hypothyroidism, unspecified type Basal cell carcinoma (BCC), unspecified site Chronic back pain, unspecified back location, unspecified back pain laterality Anxiety and depression Dysthymic disorder TIA (transient ischemic attack) Unspecified transient cerebral ischemia Stage IV breast cancer in female (HCC) Vertebral osteomyelitis (HCC)- Primary Unspecified osteomyelitis, other specified site Psoas syndrome Spasm of muscle [facility]* Diagnosis Pre-operative examination- Primary Preoperative examination, unspecified Hypothyroidism, unspecified type History of Posadas's esophagus Sleep apnea, unspecified type Stage IV breast cancer in female (HCC) TIA (transient ischemic attack) Unspecified transient cerebral ischemia Grade I diastolic dysfunction Anxiety and depression Dysthymic disorder Basal cell carcinoma (BCC), unspecified site Chronic back pain, unspecified back location, unspecified back pain laterality Grade I diastolic dysfunction- Primary Sleep apnea, unspecified type History of Posadas's esophagus Hypothyroidism, unspecified type Basal cell carcinoma (BCC), unspecified site Chronic back pain, unspecified back location, unspecified back pain laterality Anxiety and depression Dysthymic disorder TIA (transient ischemic attack) Unspecified transient cerebral ischemia Stage IV breast cancer in female (HCC) Breast cancer, stage 4, left (HCC)- Primary 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) Secondary malignant neoplasm of liver Vertebral osteomyelitis (HCC) Unspecified osteomyelitis, other specified site [facility]* Diagnosis Pre-operative examination- Primary Preoperative examination, unspecified Hypothyroidism, unspecified type History of Posadas's esophagus Sleep apnea, unspecified type Stage IV breast cancer in female (HCC) TIA (transient ischemic attack) Unspecified transient cerebral ischemia Grade I diastolic dysfunction Anxiety and depression Dysthymic disorder Basal cell carcinoma (BCC), unspecified site Chronic back pain, unspecified back location, unspecified back pain laterality Grade I diastolic dysfunction- Primary Sleep apnea, unspecified type History of Posadas's esophagus Hypothyroidism, unspecified type Basal cell carcinoma (BCC), unspecified site Chronic back pain, unspecified back location, unspecified back pain laterality Anxiety and depression Dysthymic disorder TIA (transient ischemic attack) Unspecified transient cerebral ischemia Stage IV breast cancer in female (HCC) HER2-positive carcinoma of left breast (HCC)- Primary [facility]* Diagnosis Pre-operative examination- Primary Preoperative examination, unspecified Hypothyroidism, unspecified type History of Posadas's esophagus Sleep apnea, unspecified type Stage IV breast cancer in female (HCC) TIA (transient ischemic attack) Unspecified transient cerebral ischemia Grade I diastolic dysfunction Anxiety and depression Dysthymic disorder Basal cell carcinoma (BCC), unspecified site Chronic back pain, unspecified back location, unspecified back pain laterality Grade I diastolic dysfunction- Primary Sleep apnea, unspecified type History of Posadas's esophagus Hypothyroidism, unspecified type Basal cell carcinoma (BCC), unspecified site Chronic back pain, unspecified back location, unspecified back pain laterality Anxiety and depression Dysthymic disorder TIA (transient ischemic attack) Unspecified transient cerebral ischemia Stage IV breast cancer in female (HCC) 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, 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) 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) [facility]* Diagnosis Pre-operative examination- Primary Preoperative examination, unspecified Hypothyroidism, unspecified type History of Posadas's esophagus Sleep apnea, unspecified type Stage IV breast cancer in female (HCC) TIA (transient ischemic attack) Unspecified transient cerebral ischemia Grade I diastolic dysfunction Anxiety and depression Dysthymic disorder Basal cell carcinoma (BCC), unspecified site Chronic back pain, unspecified back location, unspecified back pain laterality Grade I diastolic dysfunction- Primary Sleep apnea, unspecified type History of Posadas's esophagus Hypothyroidism, unspecified type Basal cell carcinoma (BCC), unspecified site Chronic back pain, unspecified back location, unspecified back pain laterality Anxiety and depression Dysthymic disorder TIA (transient ischemic attack) Unspecified transient cerebral ischemia Stage IV breast cancer in female (HCC) Breast cancer, stage 4, left (HCC) 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) Secondary malignant neoplasm of liver Vertebral osteomyelitis (HCC) Unspecified osteomyelitis, other specified site documented in this encounter [facility] note* Diagnosis Pre-operative examination- Primary Preoperative examination, unspecified Hypothyroidism, unspecified type History of Posadas's esophagus Sleep apnea, unspecified type Stage IV breast cancer in female (HCC) TIA (transient ischemic attack) Unspecified transient cerebral ischemia Grade I diastolic dysfunction Anxiety and depression Dysthymic disorder Basal cell carcinoma (BCC), unspecified site Chronic back pain, unspecified back location, unspecified back pain laterality Grade I diastolic dysfunction- Primary Sleep apnea, unspecified type History of Posadas's esophagus Hypothyroidism, unspecified type Basal cell carcinoma (BCC), unspecified site Chronic back pain, unspecified back location, unspecified back pain laterality Anxiety and depression Dysthymic disorder TIA (transient ischemic attack) Unspecified transient cerebral ischemia Stage IV breast cancer in female (HCC) Breast cancer, stage 4, left (HCC)- Primary 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, 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) 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) documented in this encounter [facility] note* Diagnosis Pre-operative examination- Primary Preoperative examination, unspecified Hypothyroidism, unspecified type History of Posadas's esophagus Sleep apnea, unspecified type Stage IV breast cancer in female (HCC) TIA (transient ischemic attack) Unspecified transient cerebral ischemia Grade I diastolic dysfunction Anxiety and depression Dysthymic disorder Basal cell carcinoma (BCC), unspecified site Chronic back pain, unspecified back location, unspecified back pain laterality Grade I diastolic dysfunction- Primary Sleep apnea, unspecified type History of Posadas's esophagus Hypothyroidism, unspecified type Basal cell carcinoma (BCC), unspecified site Chronic back pain, unspecified back location, unspecified back pain laterality Anxiety and depression Dysthymic disorder TIA (transient ischemic attack) Unspecified transient cerebral ischemia Stage IV breast cancer in female (HCC) 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, 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) Stage IV breast cancer in female (HCC) Carcinoma of left breast, stage 4 (HCC) documented in this encounter [facility] note* Diagnosis Pre-operative examination- Primary Preoperative examination, unspecified Hypothyroidism, unspecified type History of Posadas's esophagus Sleep apnea, unspecified type Stage IV breast cancer in female (HCC) TIA (transient ischemic attack) Unspecified transient cerebral ischemia Grade I diastolic dysfunction Anxiety and depression Dysthymic disorder Basal cell carcinoma (BCC), unspecified site Chronic back pain, unspecified back location, unspecified back pain laterality Grade I diastolic dysfunction- Primary Sleep apnea, unspecified type History of Posadas's esophagus Hypothyroidism, unspecified type Basal cell carcinoma (BCC), unspecified site Chronic back pain, unspecified back location, unspecified back pain laterality Anxiety and depression Dysthymic disorder TIA (transient ischemic attack) Unspecified transient cerebral ischemia Stage IV breast cancer in female (HCC) Breast cancer, stage 4, left (HCC)- Primary 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, right (HCC) documented in this encounter [facility] note* Diagnosis Pre-operative examination- Primary Preoperative examination, unspecified Hypothyroidism, unspecified type History of Posadas's esophagus Sleep apnea, unspecified type Stage IV breast cancer in female (HCC) TIA (transient ischemic attack) Unspecified transient cerebral ischemia Grade I diastolic dysfunction Anxiety and depression Dysthymic disorder Basal cell carcinoma (BCC), unspecified site Chronic back pain, unspecified back location, unspecified back pain laterality Grade I diastolic dysfunction- Primary Sleep apnea, unspecified type History of Posadas's esophagus Hypothyroidism, unspecified type Basal cell carcinoma (BCC), unspecified site Chronic back pain, unspecified back location, unspecified back pain laterality Anxiety and depression Dysthymic disorder TIA (transient ischemic attack) Unspecified transient cerebral ischemia Stage IV breast cancer in female (HCC) HER2-positive carcinoma of left breast (HCC) documented in this encounter [facility] note* Diagnosis Pre-operative examination- Primary Preoperative examination, unspecified Hypothyroidism, unspecified type History of Posadas's esophagus Sleep apnea, unspecified type Stage IV breast cancer in female (HCC) TIA (transient ischemic attack) Unspecified transient cerebral ischemia Grade I diastolic dysfunction Anxiety and depression Dysthymic disorder Basal cell carcinoma (BCC), unspecified site Chronic back pain, unspecified back location, unspecified back pain laterality Grade I diastolic dysfunction- Primary Sleep apnea, unspecified type History of Posadas's esophagus Hypothyroidism, unspecified type Basal cell carcinoma (BCC), unspecified site Chronic back pain, unspecified back location, unspecified back pain laterality Anxiety and depression Dysthymic disorder TIA (transient ischemic attack) Unspecified transient cerebral ischemia Stage IV breast cancer in female (HCC) 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, 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) Stage IV breast cancer in female (HCC) Carcinoma of left breast, stage 4 (HCC) documented in this encounter [facility] note* Diagnosis Pre-operative examination- Primary Preoperative examination, unspecified Hypothyroidism, unspecified type History of Posadas's esophagus Sleep apnea, unspecified type Stage IV breast cancer in female (HCC) TIA (transient ischemic attack) Unspecified transient cerebral ischemia Grade I diastolic dysfunction Anxiety and depression Dysthymic disorder Basal cell carcinoma (BCC), unspecified site Chronic back pain, unspecified back location, unspecified back pain laterality Grade I diastolic dysfunction- Primary Sleep apnea, unspecified type History of Posadas's esophagus Hypothyroidism, unspecified type Basal cell carcinoma (BCC), unspecified site Chronic back pain, unspecified back location, unspecified back pain laterality Anxiety and depression Dysthymic disorder TIA (transient ischemic attack) Unspecified transient cerebral ischemia Stage IV breast cancer in female (HCC) HER2-positive carcinoma of left breast (HCC)- Primary documented in this encounter [facility] note* Diagnosis Pre-operative examination- Primary Preoperative examination, unspecified Hypothyroidism, unspecified type History of Posadas's esophagus Sleep apnea, unspecified type Stage IV breast cancer in female (HCC) TIA (transient ischemic attack) Unspecified transient cerebral ischemia Grade I diastolic dysfunction Anxiety and depression Dysthymic disorder Basal cell carcinoma (BCC), unspecified site Chronic back pain, unspecified back location, unspecified back pain laterality Grade I diastolic dysfunction- Primary Sleep apnea, unspecified type History of Posadas's esophagus Hypothyroidism, unspecified type Basal cell carcinoma (BCC), unspecified site Chronic back pain, unspecified back location, unspecified back pain laterality Anxiety and depression Dysthymic disorder TIA (transient ischemic attack) Unspecified transient cerebral ischemia Stage IV breast cancer in female (HCC) 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, 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) 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) [facility] Diagnosis Pre-operative examination- Primary Preoperative examination, unspecified Hypothyroidism, unspecified type History of Posadas's esophagus Sleep apnea, unspecified type Stage IV breast cancer in female (HCC) TIA (transient ischemic attack) Unspecified transient cerebral ischemia Grade I diastolic dysfunction Anxiety and depression Dysthymic disorder Basal cell carcinoma (BCC), unspecified site Chronic back pain, unspecified back location, unspecified back pain laterality Grade I diastolic dysfunction- Primary Sleep apnea, unspecified type History of Posadas's esophagus Hypothyroidism, unspecified type Basal cell carcinoma (BCC), unspecified site Chronic back pain, unspecified back location, unspecified back pain laterality Anxiety and depression Dysthymic disorder TIA (transient ischemic attack) Unspecified transient cerebral ischemia Stage IV breast cancer in female (HCC) Vertebral osteomyelitis (HCC)- Primary Unspecified osteomyelitis, other specified site [facility] Diagnosis Pre-operative examination- Primary Preoperative examination, unspecified Hypothyroidism, unspecified type History of Posadas's esophagus Sleep apnea, unspecified type Stage IV breast cancer in female (HCC) TIA (transient ischemic attack) Unspecified transient cerebral ischemia Grade I diastolic dysfunction Anxiety and depression Dysthymic disorder Basal cell carcinoma (BCC), unspecified site Chronic back pain, unspecified back location, unspecified back pain laterality Grade I diastolic dysfunction- Primary Sleep apnea, unspecified type History of Posadas's esophagus Hypothyroidism, unspecified type Basal cell carcinoma (BCC), unspecified site Chronic back pain, unspecified back location, unspecified back pain laterality Anxiety and depression Dysthymic disorder TIA (transient ischemic attack) Unspecified transient cerebral ischemia Stage IV breast cancer in female (HCC) 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, 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) Stage IV breast cancer in female (HCC) Carcinoma of left breast, stage 4 (HCC) documented in this encounter [facility] note* Diagnosis Pre-operative examination- Primary Preoperative examination, unspecified Hypothyroidism, unspecified type History of Posadas's esophagus Sleep apnea, unspecified type Stage IV breast cancer in female (HCC) TIA (transient ischemic attack) Unspecified transient cerebral ischemia Grade I diastolic dysfunction Anxiety and depression Dysthymic disorder Basal cell carcinoma (BCC), unspecified site Chronic back pain, unspecified back location, unspecified back pain laterality Grade I diastolic dysfunction- Primary Sleep apnea, unspecified type History of Posadas's esophagus Hypothyroidism, unspecified type Basal cell carcinoma (BCC), unspecified site Chronic back pain, unspecified back location, unspecified back pain laterality Anxiety and depression Dysthymic disorder TIA (transient ischemic attack) Unspecified transient cerebral ischemia Stage IV breast cancer in female (HCC) 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) Secondary malignant neoplasm of liver documented in this encounter [facility] note* Diagnosis Pre-operative examination- Primary Preoperative examination, unspecified Hypothyroidism, unspecified type History of Posadas's esophagus Sleep apnea, unspecified type Stage IV breast cancer in female (HCC) TIA (transient ischemic attack) Unspecified transient cerebral ischemia Grade I diastolic dysfunction Anxiety and depression Dysthymic disorder Basal cell carcinoma (BCC), unspecified site Chronic back pain, unspecified back location, unspecified back pain laterality Grade I diastolic dysfunction- Primary Sleep apnea, unspecified type History of Posadas's esophagus Hypothyroidism, unspecified type Basal cell carcinoma (BCC), unspecified site Chronic back pain, unspecified back location, unspecified back pain laterality Anxiety and depression Dysthymic disorder TIA (transient ischemic attack) Unspecified transient cerebral ischemia Stage IV breast cancer in female (HCC) 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, 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) 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) [facility]* Diagnosis Onset Date Resolution Status Admit Date Epigastric abdominal pain acute March 19, 2025 8:28am History of Posadas's esophagus acute March 19, 2025 8:28am [facility] Work Phone: Progress note Author Chayo Engle [facility] Note Date/Time March 19, 2025 8 :54am [facility] [address] [place] [address] OFFICE VISIT Date of Service: 03/19/25 MR#: [id number] Acct: [id number] Name: DANETTE BISHOP Rep #: [id number] : 1945 Provider: ZARINA Kent Age/Sex: 79/F Location: [email or web address] Status: Signed Intake Vital Signs 11/20/24 09:13 Height 5 ft 1 in Intake 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 Chief Complaint: Epigastric/left upper quadrant pain Allergies shellfish derived Allergy (Severe, Verified 03/19/25 08:32) throat swelling adhesive tape Adverse Reaction (Verified 03/19/25 08:32) Rash Medications ?Medication ?Instructions ?Recorded ?Confirmed ?Type fluoxetine 40 mg capsule 40 mg PO DAILY 06/16/1703/06 History lisinopril 20 mg tablet 20 mg PO DAILY 09/25/2003/06 History levothyroxine 125 mcg tablet 112 mcg PO DAILY 30 days #27 tabs 06/11/21 03/19/25 History hydrocodone-acetaminophen 5-325mg 1 tab PO Q6H PRN josé miguel n 07/16/22 03/19/25 History 5mg-325mg letrozole 2.5 mg tablet 2.5 mg PO DAILY 02/16/24 History amlodipine 5 mg tablet 5 mg PO QHS 04/30/24 5 History clopidogrel 75 mg tablet 75 mg PO DAILY 04/30/2403/06 History esomeprazole magnesium 20 mg 20 mg PO DAILY 04/30/24 1 History capsule,delayed release (Nexium) liothyronine 5 mcg tablet 5 mcg PO DAILY 05/21/2403/06 History zolpidem 10 mg tablet 10 mg PO QHS 05/21/24 History multivitamin (Daily Multi-Vitamin 1 tab PO DAILY 08/2503/19/25 History tablet) baclofen 5 mg tablet 5 mg PO TID 09/11/24 5 History phenazopyridine 100 mg tablet 100 mg PO QPC 6 doses #6 tabs 12/01/24 03/19/25 Rx (Pyridium) famotidine 40 mg tablet 40 mg PO QDAY #30 tabs 03/1903/19/25 Rx Have you fallen in the past year?: No PFSH Medical History Chronic back pain Breast cancer Liver cancer Wears glasses Post-menopausal Cancer Depression Anxiety Alcohol use Thyroid disease Anemia Easy bruising Excessive bleeding Back pain TIA (transient ischemic attack) History of hiatal hernia History of ulceration History of IBS Gastric reflux Former smoker Shortness of breath on exertion History of echocardiogram Hypertension History of irregular heartbeat History of rheumatic fever LUQ pain 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 Epigastric abdominal pain Liver metastasis 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 Wears dentures Sleep apnea History of TIA (transient ischemic attack) History of thyroid disease Back pain Neck pain Severe headache Stomach ulcer History of cancer Arthritis History of hypertension Surgical History History of lumpectomy History of back surgery History of thyroid surgery Family History Mother Colon cancer passed from recurrence Thyroid disorder Father Hypertension CVA (cerebral vascular accident) Sister Breast cancer, Onset Age: 87 Aunt Colon cancer paternal Social History household members: spouse Smoking Status: Former smoker how long ago did patient quit smoking: >50 years ago; off and on for 2 years, socially only alcohol intake: current alcohol intake frequency: 0-2 drinks per day Alcohol type: wine details: socially substance use type: does not use additional social history: denies vaping, denies marijuana, denies edibles, denies aspirin and ibuprofen use HPI HPI Chief Complaint: Epigastric/left upper quadrant pain Details: DANETTE BISHOP, is a 79 F who presents to the office today for establishment. Past medical history of breast cancer with metastases to the liver. EGD 05.23.24 - Normal duodenal bulb. - Multiple gastric polyps. Resected and retrieved. - The examination was otherwise normal. - No gross lesions in the entire esophagus. Biopsied. Colonoscopy 05.23.24 - One 4 mm polyp in the sigmoid colon, removed with a cold biopsy forceps. Resected and retrieved. - One 15 mm polyp in the cecum, removed with a hot snare. Resected and retrieved. - The examination was otherwise normal on direct and retroflexion views. Patient referred from primary care provider for epigastric/left upper quadrant pain since October 2024. Patient notes that it seemed to have started while she wastaking doxycycline for 3 months due to a spinal infection. She has pain about 20 minutes after eating anything. Certain foods are worse like spicy foods and alcohol. The pain may last up to 2 hours and she will feel very bloated and uncomfortable during. Moving to different positions can relieve her pain somewhat. She takes Tums for the pain. She has been on Nexium for about 2 years but has been on other PPIs over the past 20 years. She notes in the past she has been diagnosed with Posadas's esophagus but last EGD did not show this. ROS Const Constitutional: No fatigue, fever(s) or weight change ENT ENT: No difficulty swallowing Gastro GI: Positive for abdominal pain and constipation; No belching, bloating, change in bowel habits, change in stool character, coffeeground emesis, cramping, diarrhea, heartburn, difficulty swallowing, feeling full early, excessive flatus, incontinent of stools, Vomiting blood/hematemesis,Blood in stool, loose stools, Black,tarry stools, nausea/dyspepsia, pain with swallowing, vomiting or other Musc Musculoskeletal: Positive for joint pain, back pain and Arthritis Skin Skin: No yellowing of the eye or itchy eyes Psych Psychiatric: Positive for anxiety and Positive for depression Endo Endocrine: No fatigue or weight change Aller/Imm Allergy/Immunologic: No itchy eyes Esdras/Lymp Hematologic/Lymphatic: No easy bleeding or easy bruising Exam Const General: cooperative, healthy appearing and comfortable Nutritional Appearance: average body habitus Orientation: alert HENNH Head: normal to inspection Ears: hearing grossly normal bilaterally Eyes General: appearance normal, both eyes and all related structures Neck Neck: normal visual inspection Chest Chest palpation & inspection: normal inspection of the chest Resp Effort & Inspection: normal respiratory effort Cardio Rate: regular rate Rhythm: regular rhythm GI Inspection: normal to inspection Auscultation: normal bowel sounds Palpation: soft and nontender Assessment and Plan Assessment and Plan (1) History of Posadas's esophagus: Status: Acute Plan: Danette is a 79-year-old female patient here today for evaluation of left upper quadrant/epigastric pain since October 2024. Pain is most typically 20 minutes after oral intake may last up to 2 hours. Pain is somewhat relieved with certain body positions and Tums. She takes Nexium 20 mg daily. Symptoms started after being on doxycycline for 3 months due to a spinal infection. LastEGD was in May 2024 which showed chronic gastritis and esophagitis. Colonoscopy from May 2024 with a large tubular adenoma with recommendation for repeat in 1 year. Due to the worsening of her symptoms, I recommended repeating EGD at this time to rule out worsening gastritis or ulcer. I also advised she repeat the colonoscopy as well since Dr. Castañeda recommendation was to repeat in 1 year however she does decline this at this time. In the interim,she will continue Nexium 20 mg daily and add famotidine 40 mg daily. Due to patient being on Plavix we will hold off on increasing the PPI. Pending resultswe may consider gastric emptying study. - Repeat EGD - Recommended repeating colonoscopy but she declined - Continue Nexium - Start famotidine 40 mg daily - Consider gastric emptying study - Follow-up after endoscopy Note: [employer] speech recognition bilingual school psychologist software was used to create portions of this document. Sound-alike and misspelled words, as well as other bilingual school psychologist errors may be contained in the documentation. (2) Epigastric abdominal pain: Status: Acute Medications: New famotidine 40 mg PO QDAY 30 tabs 2RF Coding Level of Care Code Off vis,new,level 4 Diagnoses History of Posadas's esophagus Z87.19 Epigastric abdominal pain R10.13 Clinical Quality Measures Falls Risk Screening/Assistive Devices Have you fallen in the past year?: No 03/19/25 0859 <Electronically signed by Chayo SRINIVASAN> Date _ Chayo Apple Signature: Date (if applicable) CC: ~ [facility] Work Phone: Reason for referral (narrative)* Outpatient Procedure (Routine) - Authorized Specialty Diagnoses / Procedures Referred By Contac t Referred To [facility] Diagnoses Malignant neoplasm of breast in female, estrogen receptor positive, unspecified laterality, unspecified site of breast (HCC) Liver metastases (HCC) HER2-positive carcinoma of breast (HCC) Procedures ECHO ECHO TTHRC R-T 2D W/WOM-MODE COMPL SPEC&COLR D Christiano Centeno DO [address] [place] [address] [place] [address] Referral ID Status Reason Start Date Expiration Date Visits Requested Visits Authorized [id number] Authorized Auto-Generat ed Referral 09/25/2021 09/25/2022 1 1 * MRI/CT (Routine) - Authorized Specialty Diagnoses / Procedures Referred By Contac t Referred To Contact CT IMAGING Diagnoses Malignant neoplasm of breast in female, estrogen receptor positive, unspecified laterality, unspecified site of breast (HCC) Liver metastases (HCC) HER2-positive carcinoma of breast (HCC) Procedures CT CHEST W IVCON DIAGNOSTIC COMPUTED TOMOGRAPHY THORAX W/CONTRAST Christiano Centeno DO [address] [place] [address] Ct Imaging Referral ID Status Reason Start Date Expiration Date Visits Requested Visits Authorized [id number] Authorized Auto-Generat ed Referral 09/25/2021 10/25/2022 1 1 * MRI/CT (Routine) - Authorized Specialty Diagnoses / Procedures Referred By Contac t Referred To Contact CT IMAGING Diagnoses Malignant neoplasm of breast in female, estrogen receptor positive, unspecified laterality, unspecified site of breast (HCC) Liver metastases (HCC) HER2-positive carcinoma of breast (HCC) Procedures CT ABD/PEL W IVCON CT ABD & PELVIS W/CONTRAST Christiano Centeno DO [address] [place] [address] Ct Imaging Referral ID Status Reason Start Date Expiration Date Visits Requested Visits Authorized [id number] Authorized Auto-Generat ed Referral 09/25/2021 10/25/2022 1 1 [facility] for referral (narrative)* Diagnostic Procedure Only (Routine) - Closed Specialty Diagnoses / Procedures Referred By Ellen t Referred To Contact XR IMAGING Diagnoses Malignant neoplasm of breast in female, estrogen receptor positive, unspecified laterality, unspecified site of breast (HCC) Pain in left hip Procedures XR HIP GENERAL 3V PELV/AP/LAT LEFT RADEX HIP UNILATERAL WITH PELVIS 2-3 VIEWS Christiano Centeno DO [address] [place] [address] Xr Imaging Referral ID Status Reason Start Date Expiration Date V isits Requested Visits Authorized [id number] Closed Auto-Generate d Referral 11/06/2021 12/06/2022 1 1 [facility] for referral (narrative)* Diagnostic Procedure Only (Routine) - Closed Specialty Diagnoses / Procedures Referred By Kavehac t Referred To Contact XR IMAGING Diagnoses Malignant neoplasm of breast in female, estrogen receptor positive, unspecified laterality, unspecified site of breast (HCC) Pain in left hip Procedures XR HIP GENERAL 3V PELV/AP/LAT LEFT RADEX HIP UNILATERAL WITH PELVIS 2-3 VIEWS Christiano Centeno, [address] [facility] [place] [address] Xr Imaging Referral ID Status Reason Start Date Expiration Date V isits Requested Visits Authorized [id number] Closed Auto-Generate d Referral 11/06/2021 12/06/2022 1 1 [facility] for referral (narrative)* Diagnostic Procedure Only (Routine) - Authorized Specialty Diagnoses / Procedures Referred By Kavehac t Referred To Contact MOLECULAR & FUNCTIONAL IMAGING Diagnoses HER2-positive carcinoma of breast (HCC) Liver metastases (HCC) Procedures NM PET/CT SKULL-THIGH SUBSEQUENT PET IMAGING CT ATTENUATION SKULL BASE MID-THIGH Christiano Centeno DO [address] [place] [address] Molecular & Functional Imaging [address] [place] [address] Referral ID Status Reason Start Date Expiration Date Visits Requested Visits Authorized [id number] Authorized Auto-Generat ed Referral 02/01/2022 04/01/2022 1 1 * Outpatient Procedure (Routine) - Authorized Specialty Diagnoses / Procedures Referred By Contac t Referred [facility] Diagnoses HER2-positive carcinoma of breast (HCC) Liver metastases (HCC) Procedures ECHO ECHO TTHRC R-T 2D W/WOM-MODE COMPL SPEC&COLR D Christiano Centeno DO [address] [place] [address] [facility] [address] [place] [address] Referral ID Status Reason Start Date Expiration Date Visits Requested Visits Authorized [id number] Authorized Auto-Generat ed Referral 02/01/2022 02/01/2023 1 1 [facility] for referral (narrative)* Diagnostic Procedure Only (Routine) - Closed Specialty Diagnoses / Procedures [facility] MOLECULAR & FUNCTIONAL IMAGING Diagnoses HER2-positive carcinoma of breast (HCC) Liver metastases (HCC) Procedures NM PET/CT SKULL-THIGH SUBSEQUENT PET IMAGING CT ATTENUATION SKULL BASE MID-THIGH Christiano Centeno DO [address] [place] [address] Molecular & Functional Imaging [address] [place] [id number] Referral ID Status Reason Start Date Expiration Date V isits Requested Visits Authorized [id number] Closed Auto-Generate d Referral 02/01/2022 04/01/2022 1 1 [facility] for referral (narrative)* Outpatient Procedure (Routine) - Pending Review Specialty Diagnoses / Procedures Referred By Contac t Referred To Contact [facility] [place] Diagnoses HER2-positive carcinoma of breast (HCC) Liver metastases (HCC) Procedures ECHO ECHO TTHRC R-T 2D W/WOM-MODE COMPL SPEC&COLR D Christiano Centeno DO [address] [place] [address] [facility] [place] [facility] [address] [place] [address] Referral ID Status Reason Start Date Expiration Date Visits Requested Visits Authorized [id number] Pending Review Auto-Generat ed Referral 2 05/05/2023 1 1 * MRI/CT (Routine) - Pending Review Specialty Diagnoses / Procedures Referred By Contac t Referred To Contact MR IMAGING Diagnoses HER2-positive carcinoma of breast (HCC) Liver metastases (HCC) Procedures MRI ABDOMEN WO/W IVCON MRI ABDOMEN W/O & W/CONTRAST MATERIAL Christiano Centeno DO [address] [place] [address] Mr Imaging Referral ID Status Reason Start Date Expiration Date Visits Requested Visits Authorized [id number] Pending Review Auto-Generat ed Referral 2 06/04/2023 1 1 [facility] for referral (narrative)* Outpatient Procedure (Routine) - Authorized Specialty Diagnoses / Procedures Referred By Contac t Referred To Contact [facility] Diagnoses Breast cancer, stage 4, left (HCC) HER2-positive carcinoma of breast (HCC) Procedures ECHO ECHO TTHRC R-T 2D W/WOM-MODE COMPL SPEC&COLR D Christiano Centeno, DO [address] [place] [address] [facility] [address] [place] [address] Referral ID Status Reason Start Date Expiration Date Visits Requested Visits Authorized [id number] Authorized Auto-Generat ed Referral 09/08/2022 09/08/2023 1 1 * MRI/CT (Routine) - Authorized Specialty Diagnoses / Procedures Referred By Contac t Referred To Contact CT IMAGING Diagnoses Breast cancer, stage 4, left (HCC) 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) Procedures CT CHEST WO IVCON DIAGNOSTIC COMPUTED TOMOGRAPHY THORAX W/O CNTRST Christiano Centeno, DO [address] [place] [address] Ct Imaging Referral ID Status Reason Start Date Expiration Date Visits Requested Visits Authorized [id number] Authorized Auto-Generat ed Referral 09/08/2022 10/08/2023 1 1 * MRI/CT (Routine) - Authorized Specialty Diagnoses / Procedures Referred By Contac t Referred To Contact MR IMAGING Diagnoses Breast cancer, stage 4, left (HCC) 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) Procedures MRI ABDOMEN WO/W IVCON MRI ABDOMEN W/O & W/CONTRAST MATERIAL Christiano Centeno, DO [address] [place] [address] Mr Imaging Referral ID Status Reason Start Date Expiration Date Visits Requested Visits Authorized [id number] Authorized Auto-Generat ed Referral 09/08/2022 10/08/2023 1 1 [facility] for referral (narrative)* Outpatient Procedure (Routine) - Authorized Specialty Diagnoses / Procedures Referred By Contac t Referred To [facility] Diagnoses Breast cancer, stage 4, left (HCC) 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) Procedures ECHO ECHO TTHRC R-T 2D W/WOM-MODE COMPL SPEC&COLR D Christiano Centeno DO [address] [place] [address] [facility] [address] [place] [address] Referral ID Status Reason Start Date Expiration Date Visits Requested Visits Authorized [id number] Authorized Auto-Generat ed Referral 01/03/2023 01/03/2024 1 1 * MRI/CT (Routine) - Authorized Specialty Diagnoses / Procedures Referred By Contac t Referred To Contact MR IMAGING Diagnoses Breast cancer, stage 4, left (HCC) 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) Procedures MRI ABDOMEN WO/W IVCON MRI ABDOMEN W/O & W/CONTRAST MATERIAL Christiano Centeno DO [address] [place] [address] Mr Imaging Referral ID Status Reason Start Date Expiration Date Visits Requested Visits Authorized [id number] Authorized Auto-Generat ed Referral 01/03/2023 02/02/2024 1 1 * MRI/CT (Routine) - Authorized Specialty Diagnoses / Procedures Referred By Contac t Referred To Contact CT IMAGING Diagnoses Breast cancer, stage 4, left (HCC) 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) Procedures CT CHEST WO IVCON DIAGNOSTIC COMPUTED TOMOGRAPHY THORAX W/O CNTRST Christiano Centeno DO [address] [facility] [place] [address] Ct Imaging Referral ID Status Reason Start Date Expiration Date Visits Requested Visits Authorized [id number] Authorized Auto-Generat ed Referral 01/03/2023 02/02/2024 1 1 [facility] for referral (narrative)* Diagnostic Procedure Only (Routine) - Authorized Specialty Diagnoses / Procedures Referred By Contac t Referred To Contact BR IMAGING Diagnoses Local recurrence of cancer of left breast (HCC) 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) Procedures CHHAYA DIAGNOSTIC BILATERAL DIAGNOSTIC MAMMOGRAPHY COMPUTER-AIDED DETCJ BI Christiano Centeno DO [address] [place] [address] Br Imaging [address] [place] [address] Referral ID Status Reason Start Date Expiration Date Visits Requested Visits Authorized [id number] Authorized Auto-Generat ed Referral 02/23/2023 03/24/2024 1 1 [facility] for referral (narrative)* Outpatient Procedure (Routine) - Authorized Specialty Diagnoses / Procedures Referred By Ellen patterson Referred To [facility] Diagnoses Local recurrence of cancer of left breast (HCC) HER2-positive carcinoma of breast (HCC) Encounter for monitoring cardiotoxic drug therapy Procedures ECHO ECHO TTHRC R-T 2D W/WOM-MODE COMPL SPEC&COLR D Christiano Centeno DO [address] [place] [address] [facility] [address] [place] [address] Referral ID Status Reason Start Date Expiration Date Visits Requested Visits Authorized [id number] Authorized Auto-Generat ed Referral 04/06/2023 04/05/2024 1 1 * Diagnostic Procedure Only (Routine) - Pending Review Specialty Diagnoses / Procedures Referred By Ellen patterson Referred To Contact MOLECULAR & FUNCTIONAL IMAGING Diagnoses Local recurrence of cancer of left breast (HCC) 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) Procedures NM PET/CT BREAST PET IMAGING CT ATTENUATION SKULL BASE MID-THIGH Christiano Centeno DO [address] [place] [address] Molecular & Functional Imaging [address] [place] [address] Referral ID Status Reason Start Date Expiration Date Visits Requested Visits Authorized [id number] Pending Review Auto-Generat ed Referral 04/06/2023 05/05/2024 1 1 [facility] for referral (narrative)* Diagnostic Procedure Only (Routine) - Pending Review Specialty Diagnoses / Procedures Referred By Contac t Referred To Contact MOLECULAR & FUNCTIONAL IMAGING Diagnoses Breast cancer, stage 4, left (HCC) 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) Procedures NM PET/CT SKULL-THIGH SUBSEQUENT PET IMAGING CT ATTENUATION SKULL BASE MID-THIGH Christiano Centeno DO [address] [place] [address] Molecular & Functional Imaging [address] [place] [address] Referral ID Status Reason Start Date Expiration Date Visits Requested Visits Authorized [id number] Pending Review Auto-Generat ed Referral 07/20/2023 08/18/2024 1 1 * MRI/CT (Routine) - Authorized Specialty Diagnoses / Procedures Referred By Contac t Referred To Contact MR IMAGING Diagnoses Breast cancer, stage 4, left (HCC) 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) Procedures MRI ABDOMEN WO/W IVCON MRI ABDOMEN W/O & W/CONTRAST MATERIAL Christiano Centeno DO [address] [place] [address] Mr Imaging [place] [address] Referral ID Status Reason Start Date Expiration Date Visits Requested Visits Authorized [id number] Authorized Auto-Generat ed Referral 07/20/2023 08/18/2024 1 1 [facility] for referral (narrative)* Outpatient Procedure (Routine) - Pending Review Specialty Diagnoses / Procedures Referred By Contac t Referred To [facility] Diagnoses Encounter for monitoring cardiotoxic drug therapy HER2-positive carcinoma of breast (HCC) Procedures ECHO ECHO TTHRC R-T 2D W/WOM-MODE COMPL SPEC&COLR D Christiano Centeno DO [address] [place] [address] [facility] [address] [place] [address] Referral ID Status Reason Start Date Expiration Date Visits Requested Visits Authorized [id number] Pending Review Auto-Generat ed Referral 10/25/2023 10/24/2024 1 1 [facility] for referral (narrative)* Diagnostic Procedure Only (Routine) - Pending Review Specialty Diagnoses / Procedures Referred By Contac t Referred To Contact US IMAGING Diagnoses 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) 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, 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) Procedures US ABD RIGHT UPPER QUADRANT US ABDOMINAL REAL TIME W/IMAGE LIMITED Christiano Centeno DO [address] [facility] [place] [address] Us Imaging [facility] Referral ID Status Reason Start Date Expiration Date Visits Requested Visits Authorized [id number] Pending Review Auto-Generat ed Referral 11/10/2023 12/09/2024 1 1 [facility] for referral (narrative)* Diagnostic Procedure Only (Routine) - Pending Review Specialty Diagnoses / Procedures Referred By Contac t Referred To Contact MOLECULAR & FUNCTIONAL IMAGING Diagnoses 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) 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, right (HCC) HER2-positive carcinoma of breast (HCC) Procedures NM PET/CT SKULL-THIGH SUBSEQUENT PET IMAGING CT ATTENUATION SKULL BASE MID-THIGH Christiano Centeno DO [address] [place] [address] Molecular & Functional Imaging [address] [place] [address] Referral ID Status Reason Start Date Expiration Date Visits Requested Visits Authorized [id number] Pending Review Auto-Generat ed Referral 02/28/2024 03/29/2025 1 1 * MRI/CT (Routine) - Authorized Specialty Diagnoses / Procedures Referred By Ellen patterson Referred To Contact MR IMAGING Diagnoses 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) 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, right (HCC) HER2-positive carcinoma of breast (HCC) Procedures MRI ABDOMEN WO/W IVCON MRI ABDOMEN W/O & W/CONTRAST MATERIAL Christiano Centeno DO [address] [place] [address] [place] [id number] Referral ID Status Reason Start Date Expiration Date Visits Requested Visits Authorized [id number] Authorized Auto-Generat ed Referral 02/28/2024 03/29/2025 1 1 [facility] for referral (narrative)* Outpatient Procedure (Routine) - Authorized Specialty Diagnoses / Procedures Referred By Ellen patterson Referred To [facility] Diagnoses Encounter for monitoring cardiotoxic drug therapy Procedures ECHO LIMITED ECHO TRANSTHORAC R-T 2D W/WO M-MODE REC COMP Christiano Centeno DO [address] [place] [address] [facility] [address] [place] [address] Referral ID Status Reason Start Date Expiration Date Visits Requested Visits Authorized [id number] Authorized Auto-Generat ed Referral 04/16/2025 1 1 [facility] for referral (narrative)* Diagnostic Procedure Only (Routine) - New Request Specialty Diagnoses / Procedures Referred By Ellen patterson Referred To Contact MOLECULAR & FUNCTIONAL IMAGING Diagnoses Malignant neoplasm of female breast, unspecified estrogen receptor status, unspecified laterality, unspecified site of breast (HCC) 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) Procedures NM PET/CT SKULL-THIGH SUBSEQUENT PET IMAGING CT ATTENUATION SKULL BASE MID-THIGH Christiano Centeno DO [address] [place] [address] Molecular & Functional Imaging [address] [place] [address] Referral ID Status Reason Start Date Expiration Date Visits Requested Visits Authorized [id number] New Request Auto-Generat ed Referral 06/21/2024 07/21/2025 1 1 * MRI/CT (Routine) - New Request Specialty Diagnoses / Procedures Referred By Contac t Referred To Contact MR IMAGING Diagnoses Malignant neoplasm of female breast, unspecified estrogen receptor status, unspecified laterality, unspecified site of breast (HCC) 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) Procedures MRI ABDOMEN WO/W IVCON MRI ABDOMEN W/O & W/CONTRAST MATERIAL Christiano Centeno DO [address] [place] [address] Mr Imaging [place] [address] Referral ID Status Reason Start Date Expiration Date Visits Requested Visits Authorized [id number] New Request Auto-Generat ed Referral 06/21/2024 07/21/2025 1 1 [facility] for referral (narrative)No reason for referral information [facility] Work Phone: Reason for visit Narrative* Diagnostic Procedure Only (Routine) - Closed Specialty Diagnoses / Procedures Referred By Conthoda t Referred To Contact XR IMAGING Diagnoses Malignant neoplasm of breast in female, estrogen receptor positive, unspecified laterality, unspecified site of breast (HCC) Pain in left hip Procedures XR HIP GENERAL 3V PELV/AP/LAT LEFT RADEX HIP UNILATERAL WITH PELVIS 2-3 VIEWS Christiano Centeno DO [address] [place] [address] Xr Imaging Referral ID Status Reason Start Date Expiration Date V isits Requested Visits Authorized [id number] Closed Auto-Generate d Referral 11/06/2021 12/06/2022 1 1 [facility] for visit Narrative* Diagnostic Procedure Only (Routine) - Closed Specialty Diagnoses / Procedures Referred By Contac t Referred To Contact MOLECULAR & FUNCTIONAL IMAGING Diagnoses HER2-positive carcinoma of breast (HCC) Liver metastases (HCC) Procedures NM PET/CT SKULL-THIGH SUBSEQUENT PET IMAGING CT ATTENUATION SKULL BASE MID-THIGH Christiano Centeno, DO [address] [place] [address] Molecular & Functional Imaging [address] [place] [address] Referral ID Status Reason Start Date Expiration Date V isits Requested Visits Authorized [id number] Closed Auto-Generate d Referral 02/01/2022 04/01/2022 1 1 [facility] for visit Narrative* Diagnostic Procedure Only (Routine) - Closed Specialty Diagnoses / Procedures Referred By Ellen t Referred To Contact BR IMAGING Diagnoses Local recurrence of cancer of left breast (HCC) 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) Procedures CHHAYA DIAGNOSTIC BILATERAL DIAGNOSTIC MAMMOGRAPHY COMPUTER-AIDED DETCJ BI Christiano Centeno, DO [address] [place] [address] Br Imaging [address] [place] [address] Referral ID Status Reason Start Date Expiration Date V isits Requested Visits Authorized [id number] Closed Auto-Generate d Referral 02/23/2023 03/24/2024 1 1 [facility] for visit Narrative* Diagnostic Procedure Only (Routine) - Authorized Specialty Diagnoses / Procedures Referred By Ellen patterson Referred To Contact MOLECULAR & FUNCTIONAL IMAGING Diagnoses Breast cancer, stage 4, left (HCC) 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) Procedures NM PET/CT SKULL-THIGH SUBSEQUENT PET IMAGING CT ATTENUATION SKULL BASE MID-THIGH Christiano Centeno, DO [address] [facility] [place] [address] Molecular & Functional Imaging [address] [place], [place] [address] Referral ID Status Reason Start Date Expiration Date Visits Requested Visits Authorized [id number] Authorized Auto-Generat ed Referral 08/09/2023 11/06/2023 2 2 [facility] for visit Narrative* Outpatient Procedure (Routine) - Closed Specialty Diagnoses / Procedures Referred By Contac t Referred To Contact [facility] Diagnoses Encounter for monitoring cardiotoxic drug therapy HER2-positive carcinoma of breast (HCC) Procedures ECHO ECHO TTHRC R-T 2D W/WOM-MODE COMPL SPEC&COLR D Christiano Centeno DO [address] [place] [address] [facility] [address] [place] [address] Referral ID Status Reason Start Date Expiration Date V isits Requested Visits Authorized [id number] Closed Auto-Generate d Referral 10/25/2023 10/24/2024 1 1 [facility] for visit Narrative* Diagnostic Procedure Only (Routine) - Closed Specialty Diagnoses / Procedures Referred By Ellen patterson Referred To Contact MOLECULAR & FUNCTIONAL IMAGING Diagnoses Malignant neoplasm of female breast, unspecified estrogen receptor status, unspecified laterality, unspecified site of breast (HCC) 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) Procedures NM PET/CT SKULL-THIGH SUBSEQUENT PET IMAGING CT ATTENUATION SKULL BASE MID-THIGH Christiano Centeno DO [address] [place] [address] Molecular & Functional Imaging [address] [place] [address] Referral ID Status Reason Start Date Expiration Date V isits Requested Visits Authorized [id number] Closed Auto-Generate d Referral 06/29/2024 09/26/2024 1 1 [facility] for visit Narrative* [place] Prior Authorization (Routine) - Authorized Specialty Diagnoses / Procedures Referred By Ellen patterson Referred To Contact Diagnoses 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, 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) Procedures DOCETAXEL INJECTION INJECTION, PERTUZUMAB, 1 MG PEGFILGRASTIM 6 MG INJ INJ ONTRUZANT 10 MG INJ., KANJINTI, 10 MG Christiano Centeno DO [address] [place] [address] Phone: tel: fax: Hematology/Oncology [address] [place] [address] Phone: tel: fax: Referral ID Status Reason Start Date Expiration Date Visits Requested Visits Authorized [id number] Authorized Patient Cleared INN/SMCP Payor Auth Obtained 08/29/2020 01/14/[phone] [facility] for visit Narrative* MRI/CT (Routine) - Closed Specialty Diagnoses / Procedures Referred By Contac t Referred To Contact MR IMAGING Diagnoses 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, 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) Stage IV breast cancer in female (HCC) Carcinoma of left breast, stage 4 (HCC) Procedures MRI ABDOMEN WO/W IVCON MRI ABDOMEN W/O & W/CONTRAST MATERIAL Christiano Centeno, DO [address] [place] [address] Phone: tel: fax: [place] [address] Referral ID Status Reason Start Date Expiration Date V isits Requested Visits Authorized [id number] Closed Auto-Generate d Referral 01/04/2025 02/03/2026 1 1 [facility] for visit Narrative* Diagnostic Procedure Only (Routine) - Closed Specialty Diagnoses / Procedures Referred By Contac t Referred To Contact MOLECULAR & FUNCTIONAL IMAGING Diagnoses 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, 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) Stage IV breast cancer in female (HCC) Carcinoma of left breast, stage 4 (HCC) Procedures NM PET/CT SKULL-THIGH SUBSEQUENT PET IMAGING CT ATTENUATION SKULL BASE MID-THIGH Christiano Centeno, DO [address] [facility] [place] [address] Phone: tel: fax: Molecular Imaging [address] [place] [address] Phone: tel: Referral ID Status Reason Start Date Expiration Date V isits Requested Visits Authorized [id number] Closed Auto-Generate d Referral 01/07/2025 04/06/2025 2 2 [facility] for visit Narrative* Diagnostic Procedure Only (Routine) - Closed Specialty Diagnoses / Procedures Referred By Contac t Referred To Contact MOLECULAR & FUNCTIONAL IMAGING Diagnoses 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, 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) Stage IV breast cancer in female (HCC) Carcinoma of left breast, stage 4 (HCC) Procedures NM PET/CT SKULL-THIGH SUBSEQUENT PET IMAGING CT ATTENUATION SKULL BASE MID-THIGH Christiano Centeno, [address] [place] [address] Phone: tel: fax: Molecular Imaging [address] [place] [address] Phone: tel: Referral ID Status Reason Start Date Expiration Date V isits Requested Visits Authorized [id number] Closed Auto-Generate d Referral 01/07/2025 04/06/2025 2 2 [facility] Summary Purpose Family History No Family History Records Found Relationship Condition Age at Onset Recorded Date/T traci mother Malignant neoplasm of colon Unknown Disorder of thyroid Unknown father Hypertension Unknown Cerebrovascular accident (CVA) Unknown Relationship Condition Age at Onset Recorded Date/T traci mother Malignant neoplasm of colon Unknown Disorder of thyroid Unknown father Hypertension Unknown Cerebrovascular accident (CVA) Unknown sister Malignant neoplasm of breast 87 aunt Malignant neoplasm of colon Unknown Advance Directives No Advanced Directives Records FoundDocuments on File Type Date Recorded Patient Vat Washer Expl anation Advance Directive(s) 08/29/2020 11:13 AM Date Activated Date Inactivated Comments 10/04/2024 4:18 AM 10/05/2024 7:30 PM Question Answer Comments Full Code Order Discussed With: Patient Documents on File Type Date Recorded Patient Vat Washer Expl anation Advance Directive(s) 06/02/2021 8:03 AM Advance Directive(s) 09/01/2020 9:24 AM Advance Directive(s) 08/29/2020 11:13 AM Advance Directive(s) 08/21/2020 10:27 AM Documents on File Type Date Recorded Patient Vat Washer Expl anation Advance Directive(s) 06/02/2021 8:03 AM Advance Directive(s) 09/01/2020 9:24 AM Advance Directive(s) 08/29/2020 11:13 AM Advance Directive(s) 08/21/2020 10:27 AM Advance Directive Response Recorded Date/ Time Living Will Yes September 25, 2020 8:04am Power of Medical Researcher Yes September 25 8:04am Documents on File Type Date Recorded Patient Vat Washer Expl anation Advance Directive(s) 08/29/2020 11:13 AM Advance Directive Response Recorded Date/ Time Living Will Yes September 25, 2020 7:04am Power of Medical Researcher Yes September 25 7:04am Advance Directive Response Recorded Date/ Time Living Will No December 26, 2022 4:36pm Power of Medical Researcher No December 26 4:36pm Advance Directive Response Recorded Date/ Time Living Will No December 26, 2022 3:36pm Power of Medical Researcher No December 26 3:36pm Advance Directive Response Recorded Date/ Time Living Will No May 21 10:03am Do you have a Healthcare Power of Medical Researcher? No May 21, 2024 10:03am Living Will No June 04 9:07am Do you have a Healthcare Power of Medical Researcher? No June 04, 2024 9:07am Living Will Yes August 25, 2024 1:31pm Do you have a Healthcare Power of Medical Researcher? Yes August 25, 2024 1:31pm Name of Medical Power of Medical Researcher David Bishop August 25, 2024 1:31pm Advance Directive Response Recorded Date/ Time Living Will No May 21 10:03am Do you have a Healthcare Power of Medical Researcher? No May 21, 2024 10:03am Living Will No June 04 9:07am Do you have a Healthcare Power of Medical Researcher? No June 04, 2024 9:07am Living Will Yes August 25, 2024 6:42pm Do you have a Healthcare Power of Medical Researcher? Yes August 25, 2024 6:42pm Name of Medical Power of Medical Researcher David Bishop August 25, 2024 6:42pm Advance Directive Response Recorded Date/ Time Living Will Yes August 25, 2024 6:42pm Do you have a Healthcare Power of Medical Researcher? Yes August 25, 2024 6:42pm Name of Medical Power of Medical Researcher David Bishop August 25, 2024 6:42pm Date Activated Date Inactivated Comments 10/04/2024 4:18 AM 10/05/2024 7:30 PM Question Answer Comments Full Code Order Discussed With: Patient Medications Administered Section Inactive Administered Medications - up to 3 most recent administrations Medication Order MAR Action Action Date Dose Rate Site trastuzumab-dttb 375.6 mg in NaCl 0.9% 250 mL (ONTRUZANT) 375.6 mg (6 mg/kg/dose 62.6 kg Treatment plan Recorded weight), INTRAVENOUS, Administer over 60 Minutes, ONCE, 1 dose, On Tue09/07/21 at 1400, Approx Total Volume EXP: immediate use - DO NOT SHAKE Refrigerate New Bag/Syringe/Bottle 09/07/2021 2:12 PM EDT 375.6 mg Inactive Administered Medications - up to 3 most recent administrations Medication Order MAR Action Action Date Dose Rate Site trastuzumab-dttb 375.6 mg in NaCl 0.9% 250 mL (ONTRUZANT) 375.6 mg (6 mg/kg/dose 62.6 kg Treatment plan Recorded weight), INTRAVENOUS, Administer over 60 Minutes, ONCE, 1 dose, On Tue09/28/21 at 1330, Approx Total Volume EXP: immediate use - DO NOT SHAKE Refrigerate New Bag/Syringe/Bottle 09/28/2021 1:33 PM EDT 375.6 mg Inactive Administered Medications - up to 3 most recent administrations Medication Order MAR Action Action Date Dose Rate Site trastuzumab-dttb 375.6 mg in NaCl 0.9% 292.8786 mL (ONTRUZANT) 375.6 mg (6 mg/kg/dose 62.6 kg Treatment plan Recorded weight), INTRAVENOUS, Administer over 60 Minutes, ONCE, 1 dose, On Tue12/01/21 at 1430, EXP: immediate use - DO NOT SHAKE Refrigerate New Bag/Syringe/Bottle 12/01/2021 3:02 PM EDT 375.6 mg Inactive Administered Medications - up to 3 most recent administrations Medication Order MAR Action Action Date Dose Rate Site trastuzumab-dttb 375.6 mg in NaCl 0.9% 292.8786 mL (ONTRUZANT) 375.6 mg (6 mg/kg/dose 62.6 kg Treatment plan Recorded weight), INTRAVENOUS, Administer over 60 Minutes, ONCE, 1 dose, On Tue12/21/21 at 1000, EXP: immediate use - DO NOT SHAKE Refrigerate New Bag/Syringe/Bottle 12/21/2021 10:20 AM EDT 375.6 mg Inactive Administered Medications - up to 3 most recent administrations Medication Order MAR Action Action Date Dose Rate Site trastuzumab-dttb 375.6 mg in NaCl 0.9% 292.8786 mL (ONTRUZANT) 375.6 mg (6 mg/kg/dose 62.6 kg Treatment plan Recorded weight), INTRAVENOUS, Administer over 60 Minutes, ONCE, 1 dose, On Tue01/12/22 at 1130, EXP: immediate use - DO NOT SHAKE Refrigerate New Bag/Syringe/Bottle 01/12/2022 11:57 AM EDT 375.6 mg Inactive Administered Medications - up to 3 most recent administrations Medication Order MAR Action Action Date Dose Rate Site trastuzumab-dttb 404.4 mg in NaCl 0.9% 294.2494 mL (ONTRUZANT) 404.4 mg (6 mg/kg/dose 67.4 kg Treatment plan Recorded weight), INTRAVENOUS, Administer over 60 Minutes, ONCE, 1 dose, On Tue02/02/22 at 1100, EXP: immediate use - DO NOT SHAKE Refrigerate New Bag/Syringe/Bottle 02/02/2022 11:17 AM EDT 404.4 mg Inactive Administered Medications - up to 3 most recent administrations Medication Order MAR Action Action Date Dose Rate Site trastuzumab-dttb 404.4 mg in NaCl 0.9% 294.2494 mL (ONTRUZANT) 404.4 mg (6 mg/kg/dose 67.4 kg Treatment plan Recorded weight), INTRAVENOUS, Administer over 60 Minutes, ONCE, 1 dose, On Tue02/23/22 at 1100, exp 0900 02/24/22 (refrigerated) - DO NOT SHAKE Refrigerate New Bag/Syringe/Bottle 02/23/2022 11:00 AM EDT 404.4 mg Inactive Administered Medications - up to 3 most recent administrations Medication Order MAR Action Action Date Dose Rate Site trastuzumab-dttb 404.4 mg in NaCl 0.9% 294.2494 mL (ONTRUZANT) 404.4 mg (6 mg/kg/dose 67.4 kg Treatment plan Recorded weight), INTRAVENOUS, Administer over 60 Minutes, ONCE, 1 dose, On Tue03/25/22 at 0900, Immediate use - DO NOT SHAKE Refrigerate New Bag/Syringe/Bottle 03/25/2022 9:11 AM EDT 404.4 mg Inactive Administered Medications - up to 3 most recent administrations Medication Order MAR Action Action Date Dose Rate Site trastuzumab-dttb 404.4 mg in NaCl 0.9% 294.2494 mL (ONTRUZANT) 404.4 mg (6 mg/kg/dose 67.4 kg Treatment plan Recorded weight), INTRAVENOUS, Administer over 60 Minutes, ONCE, 1 dose, On Mercedes 06/17/22 at 0900, Immediate use - DO NOT SHAKE Refrigerate New Bag/Syringe/Bottle 06/17/2022 9:07 AM EST 404.4 mg Inactive Administered Medications - up to 3 most recent administrations Medication Order MAR Action Action Date Dose Rate Site trastuzumab-dttb 404.4 mg in NaCl 0.9% 294.2494 mL (ONTRUZANT) 404.4 mg (6 mg/kg/dose 67.4 kg Treatment plan Recorded weight), INTRAVENOUS, Administer over 60 Minutes, ONCE, 1 dose, On Mercedes 07/29/22 at 0900, Immediate use 07/29/22 - DO NOT SHAKE Refrigerate New Bag/Syringe/Bottle 07/29/2022 9:14 AM EST 404.4 mg Inactive Administered Medications - up to 3 most recent administrations Medication Order MAR Action Action Date Dose Rate Site trastuzumab-dttb 404.4 mg in NaCl 0.9% 294.2494 mL (ONTRUZANT) 404.4 mg (6 mg/kg/dose 67.4 kg Treatment plan Recorded weight), INTRAVENOUS, Administer over 60 Minutes, ONCE, 1 dose, On Mercedes 08/19/22 at 0900, Immediate use - DO NOT SHAKE Refrigerate New Bag/Syringe/Bottle 08/19/2022 9:09 AM EDT 404.4 mg Inactive Administered Medications - up to 3 most recent administrations Medication Order MAR Action Action Date Dose Rate Site trastuzumab-dttb 404.4 mg in NaCl 0.9% 294.2494 mL (ONTRUZANT) 404.4 mg (6 mg/kg/dose 67.4 kg Treatment plan Recorded weight), INTRAVENOUS, Administer over 60 Minutes, ONCE, 1 dose, On Mercedes 09/09/22 at 0930, exp 0800 09/10/22 (refrigerated) - DO NOT SHAKE Refrigerate New Bag/Syringe/Bottle 09/09/2022 9:27 AM EDT 404.4 mg Inactive Administered Medications - up to 3 most recent administrations Medication Order MAR Action Action Date Dose Rate Site trastuzumab-dttb 404.4 mg in NaCl 0.9% 294.2494 mL (ONTRUZANT) 404.4 mg (6 mg/kg/dose 67.4 kg Treatment plan Recorded weight), INTRAVENOUS, Administer over 60 Minutes, ONCE, 1 dose, On Tue09/30/22 at 0900, Immediate use - DO NOT SHAKE Refrigerate New Bag/Syringe/Bottle 09/30/2022 9:19 AM EDT 404.4 mg Inactive Administered Medications - up to 3 most recent administrations Medication Order MAR Action Action Date Dose Rate Site trastuzumab-dttb 404.4 mg in NaCl 0.9% 294.2494 mL (ONTRUZANT) 404.4 mg (6 mg/kg/dose 67.4 kg Treatment plan Recorded weight), INTRAVENOUS, Administer over 60 Minutes, ONCE, 1 dose, On Tue11/11/22 at 0900, Immediate use - DO NOT SHAKE Refrigerate New Bag/Syringe/Bottle 11/11/2022 9:16 AM EDT 404.4 mg Inactive Administered Medications - up to 3 most recent administrations Medication Order MAR Action Action Date Dose Rate Site trastuzumab-dttb 404.4 mg in NaCl 0.9% 294.2494 mL (ONTRUZANT) 404.4 mg (6 mg/kg/dose 67.4 kg Treatment plan Recorded weight), INTRAVENOUS, Administer over 60 Minutes, ONCE, 1 dose, On Tue12/23/22 at 0900, Immediate use - DO NOT SHAKE Refrigerate New Bag/Syringe/Bottle 12/23/2022 9:27 AM EDT 404.4 mg Inactive Administered Medications - up to 3 most recent administrations Medication Order MAR Action Action Date Dose Rate Site trastuzumab-dttb 404.4 mg in NaCl 0.9% 294.2494 mL (ONTRUZANT) 404.4 mg (6 mg/kg/dose 67.4 kg Treatment plan Recorded weight), INTRAVENOUS, Administer over 60 Minutes, ONCE, 1 dose, On Tue01/13/23 at 0900, Immediate use - DO NOT SHAKE Refrigerate New Bag/Syringe/Bottle 01/13/2023 9:17 AM EDT 404.4 mg Inactive Administered Medications - up to 3 most recent administrations Medication Order MAR Action Action Date Dose Rate Site trastuzumab-dttb 404.4 mg in NaCl 0.9% 294.2494 mL (ONTRUZANT) 404.4 mg (6 mg/kg/dose 67.4 kg Treatment plan Recorded weight), INTRAVENOUS, Administer over 60 Minutes, ONCE, 1 dose, On Tue02/03/23 at 0930, Exp 02/04/23 9:14 AM (refrigerated) - DO NOT SHAKE Refrigerate New Bag/Syringe/Bottle 02/03/2023 9:42 AM EDT 404.4 mg 294 mL/hr Inactive Administered Medications - up to 3 most recent administrations Medication Order MAR Action Action Date Dose Rate Site trastuzumab-dttb 404.4 mg in NaCl 0.9% 294.2494 mL (ONTRUZANT) 404.4 mg (6 mg/kg/dose 67.4 kg Treatment plan Recorded weight), INTRAVENOUS, Administer over 60 Minutes, ONCE, 1 dose, On Tue02/25/23 at 1000, Immediate use - DO NOT SHAKE Refrigerate New Bag/Syringe/Bottle 02/25/2023 10:12 AM EDT 404.4 mg Inactive Administered Medications - up to 3 most recent administrations Medication Order MAR Action Action Date Dose Rate Site trastuzumab-dttb 404.4 mg in NaCl 0.9% 294.2494 mL (ONTRUZANT) 404.4 mg (6 mg/kg/dose 67.4 kg Treatment plan Recorded weight), INTRAVENOUS, Administer over 60 Minutes, ONCE, 1 dose, On Tue03/18/23 at 1100, exp 89903/19/23 (refrigerated) - DO NOT SHAKE Refrigerate New Bag/Syringe/Bottle 03/18/2023 10:46 AM EDT 404.4 mg Inactive Administered Medications - up to 3 most recent administrations Medication Order MAR Action Action Date Dose Rate Site trastuzumab-anns 404.4 mg in NaCl 0.9% 294.2494 mL (KANJINTI) 404.4 mg (6 mg/kg/dose 67.4 kg Treatment plan Recorded weight), INTRAVENOUS, Administer over 30 Minutes, ONCE, 1 dose, On Tue04/29/23 at 1430, exp 89904/30/23 (refrigerated) - DO NOT SHAKE Refrigerate New Bag/Syringe/Bottle 04/29/2023 2:18 PM EST 404.4 mg 294 mL/hr Inactive Administered Medications - up to 3 most recent administrations Medication Order MAR Action Action Date Dose Rate Site trastuzumab-anns 404.4 mg in NaCl 0.9% 294.2494 mL (KANJINTI) 404.4 mg (6 mg/kg/dose 67.4 kg Treatment plan Recorded weight), INTRAVENOUS, Administer over 30 Minutes, ONCE, 1 dose, On Tue05/20/23 at 1000, exp immediate use (room temp) - DO NOT SHAKE Refrigerate New Bag/Syringe/Bottle 05/20/2023 10:08 AM EST 404.4 mg Chief Complaint and Reason for Visit Chief Complaint SCREENING Chief Complaint Lt leg Reason for Visit Greater trochanteric bursitis of left hip Chief Complaint Urinary tract infect ion NEW PT - BREAST CANCER Reason for Visit UTI (urinary tract i nfection), uncomplicated 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 Liver metastasis Chief Complaint eye Chief Complaint eye Upper Scope/Gerd POSSIBLE UTI Reason for Visit Epigastric abdominal pain 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 Liver metastasis UTI (urinary tract infection), uncomplicated Chief Complaint BREAST REHABILITATIO N, RX HERE Chief Complaint Admit Date Esophagogastroduodenoscopy April 12:45pm FEVER, SORE THROAT, COUGH June 02, 2024 10:27am cp, cold June 04, 2024 8:06am SORE THROAT June 23, 2024 1 :22pm INTRACTABLE BACK PAIN W/INABILITY TO Mar 2024 4:23pm Reason for Visit Admit Date History of Posadas's esophagus April 30, 2024 12:45pm History of Posadas's esophagus May 23, 2024 12:19pm Viral URI with cough June 02, 2024 10:27am Protracted URI June 23, 2024 1 :22pm Acute urinary retention August 25, 2024 4:23pm Back muscle spasm August 25, 2024 4:2 3pm Unable to ambulate August 25, 2024 4:2 3pm Chronic back pain August 25, 2024 4:2 3pm Chief Complaint Admit Date FEVER, SORE THROAT, COUGH June 02, 2024 10:27am cp, cold June 04, 2024 8:06am SORE THROAT June 23, 2024 1 :22pm INTRACTABLE BACK PAIN W/INABILITY TO Mar 2024 4:23pm INTRACTABLE BACK PAIN W/INABILITY TO Mar 2024 10:55am INTRACTABLE BACK PAIN W/INABILITY TO Mar 2024 11:31am INTRACTABLE BACK PAIN W/INABILITY TO Mar 2024 2:40pm INTRACTABLE BACK PAIN W/INABILITY TO Mar 2024 4:16pm INTRACTABLE BACK PAIN W/INABILITY TO Mar 2024 6:45pm INTRACTABLE BACK PAIN W/INABILITY TO Mar 2024 12:36pm Reason for Visit Admit Date History of Posadas's esophagus May 23, 2024 12:19pm Viral URI with cough June 02, 2024 10:27am Protracted URI June 23, 2024 1 :22pm Acute urinary retention August 25, 2024 4:23pm Back muscle spasm August 25, 2024 4:2 3pm Fusion of lumbar spine August 25, 2024 4:23pm Spondylolisthesis, lumbar region August [id number] 4:23pm Unable to ambulate August 25, 2024 4:2 3pm Acute on chronic low back pain August 4:23pm Chronic back pain August 25, 2024 4:2 3pm Chief Complaint Admit Date SORE THROAT June 23, 2024 1 :22pm INTRACTABLE BACK PAIN W/INABILITY TO Mar 2024 4:23pm INTRACTABLE BACK PAIN W/INABILITY TO Mar 2024 10:55am INTRACTABLE BACK PAIN W/INABILITY TO Mar 2024 11:31am INTRACTABLE BACK PAIN W/INABILITY TO Mar 2024 2:40pm INTRACTABLE BACK PAIN W/INABILITY TO Mar 2024 4:16pm INTRACTABLE BACK PAIN W/INABILITY TO Mar 2024 6:45pm INTRACTABLE BACK PAIN W/INABILITY TO Mar 2024 12:36pm lumbar spine September 11, 2024 12:2 8pm RM 1 September 11, 2024 12:4 8pm Amb Documentation September 14, 2024 12: 29pm LUMBAR SPINE PAIN (URGENT) October 02, 2 025 6:26am Amb Documentation October 02, 2024 3:0 7pm DALBAVANCIN October 19, 2024 8:54a m Reason for Visit Admit Date Protracted URI June 23, 2024 1 :22pm Fusion of lumbar spine August 25, 2024 4:23pm Spondylolisthesis, lumbar region August 052024 4:23pm Acute on chronic low back pain August 4:23pm Acute urinary retention August 25, 2024 4:23pm Back muscle spasm August 25, 2024 4:2 3pm Unable to ambulate August 25, 2024 4:2 3pm Chronic back pain August 25, 2024 4:2 3pm Fusion of lumbar spine September 11, 2024 1 2:28pm Spondylolisthesis, lumbar region September [id number] 12:28pm Chief Complaint Admit Date INTRACTABLE BACK PAIN W/INABILITY TO Mar ch 2024 4:23pm INTRACTABLE BACK PAIN W/INABILITY TO Mar ch 2024 10:55am INTRACTABLE BACK PAIN W/INABILITY TO Mar ch 2024 11:31am INTRACTABLE BACK PAIN W/INABILITY TO Mar ch 2024 2:40pm INTRACTABLE BACK PAIN W/INABILITY TO Mar ch 2024 4:16pm INTRACTABLE BACK PAIN W/INABILITY TO Mar ch 2024 6:45pm INTRACTABLE BACK PAIN W/INABILITY TO Mar ch 2024 12:36pm lumbar spine September 11, 2024 12:2 8pm RM 1 September 11, 2024 12:4 8pm Amb Documentation September 14, 2024 12: 29pm LUMBAR SPINE PAIN (URGENT) October 02, 2 025 6:26am Amb Documentation October 02, 2024 3:0 7pm DALBAVANCIN October 19, 2024 8:54a m DALBAVANCIN October 26, 2024 8:49a m Reason for Visit Admit Date Fusion of lumbar spine August 25, 2024 4:23pm Spondylolisthesis, lumbar region August [id number] 4:23pm Acute on chronic low back pain August 4:23pm Acute urinary retention August 25, 2024 4:23pm Back muscle spasm August 25, 2024 4:2 3pm Unable to ambulate August 25, 2024 4:2 3pm Chronic back pain August 25, 2024 4:2 3pm Fusion of lumbar spine September 11, 2024 1 2:28pm Spondylolisthesis, lumbar region September [id number] 12:28pm Chief Complaint Admit Date INTRACTABLE BACK PAIN W/INABILITY TO Mar 2024 4:23pm INTRACTABLE BACK PAIN W/INABILITY TO Mar ch 2024 10:55am INTRACTABLE BACK PAIN W/INABILITY TO Mar ch 2024 11:31am INTRACTABLE BACK PAIN W/INABILITY TO Mar ch 2024 2:40pm INTRACTABLE BACK PAIN W/INABILITY TO Mar ch 2024 4:16pm INTRACTABLE BACK PAIN W/INABILITY TO Mar ch 2024 6:45pm INTRACTABLE BACK PAIN W/INABILITY TO Mar ch 2024 12:36pm lumbar spine September 11, 2024 12:2 8pm RM 1 September 11, 2024 12:4 8pm Amb Documentation September 14, 2024 12: 29pm LUMBAR SPINE PAIN (URGENT) October 02, 2 025 6:26am Amb Documentation October 02, 2024 3:0 7pm DALBAVANCIN October 19, 2024 8:54a m DALBAVANCIN October 26, 2024 8:49a m DALBAVANCIN November 20, 2024 9:03 am Chief Complaint Admit Date INTRACTABLE BACK PAIN W/INABILITY TO Mar ch 2024 4:23pm INTRACTABLE BACK PAIN W/INABILITY TO Mar ch 2024 10:55am INTRACTABLE BACK PAIN W/INABILITY TO Mar ch 2024 11:31am INTRACTABLE BACK PAIN W/INABILITY TO Mar 2024 2:40pm INTRACTABLE BACK PAIN W/INABILITY TO Mar ch 2024 4:16pm INTRACTABLE BACK PAIN W/INABILITY TO Mar 2024 6:45pm INTRACTABLE BACK PAIN W/INABILITY TO Mar ch 2024 12:36pm lumbar spine September 11, 2024 12:2 8pm RM 1 September 11, 2024 12:4 8pm Amb Documentation September 14, 2024 12: 29pm LUMBAR SPINE PAIN (URGENT) October 02, 2 025 6:26am Amb Documentation October 02, 2024 3:0 7pm DALBAVANCIN October 19, 2024 8:54a m DALBAVANCIN October 26, 2024 8:49a m DALBAVANCIN November 20, 2024 9:03 am OSTEOPOROSIS November 28, 2024 1:38 pm CONCERN FOR UTI December 01, 2024 8:49 am Reason for Visit Admit Date Fusion of lumbar spine August 25, 2024 4:23pm Spondylolisthesis, lumbar region August [id number] 4:23pm Acute on chronic low back pain August 4:23pm Acute urinary retention August 25, 2024 4:23pm Back muscle spasm August 25, 2024 4:2 3pm Unable to ambulate August 25, 2024 4:2 3pm Chronic back pain August 25, 2024 4:2 3pm Fusion of lumbar spine September 11, 2024 1 2:28pm Spondylolisthesis, lumbar region September [id number] 12:28pm Dysuria December 01, 2024 8:49 am Chief Complaint Admit Date LUMBAR SPINE PAIN (URGENT) October 02, 025 6:26am Amb Documentation October 02, 2024 3:0 7pm DALBAVANCIN October 19, 2024 8:54a m DALBAVANCIN October 26, 2024 8:49a m DALBAVANCIN November 20, 2024 9:03 am OSTEOPOROSIS November 28, 2024 1:38 pm CONCERN FOR UTI December 01, 2024 8:49 am LLQ PAIN January 11, 2025 12: 32pm Reason for Visit Admit Date Dysuria December 01, 2024 8:49 am Chief Complaint Admit Date DALBAVANCIN November 20, 2024 9:03 am OSTEOPOROSIS November 28, 2024 1:38 pm CONCERN FOR UTI December 01, 2024 8:49 am LLQ PAIN January 11, 2025 12: 32pm ASSESS FOR ABNORMALITIES February 28, 2025 7:44am Chief Complaint Admit Date LLQ PAIN January 11, 2025 12: 32pm ASSESS FOR ABNORMALITIES February 28, 2025 7:44am ABDOMINAL HERNIA NEAR INTESTINE March 19, 2025 8:28am Reason for Visit Admit Date Epigastric abdominal pain March 19, 2025 8:28am History of Posadas's esophagus March [id number] 8:28am Reason for Referral Specialty Diagnoses / Procedures Referred By Ellen patterson Referred To Contact CT IMAGING Diagnoses Malignant neoplasm of breast in female, estrogen receptor positive, unspecified laterality, unspecified site of breast (HCC) Liver metastases (HCC) HER2-positive carcinoma of breast (HCC) Procedures CT CHEST W IVCON DIAGNOSTIC COMPUTED TOMOGRAPHY THORAX W/CONTRAST Christiano Centeno, DO [address] [place] [address] Ct Imaging Referral ID Status Reason Start Date Expiration Date V isits Requested Visits Authorized [id number] Closed Auto-Generate d Referral 09/25/2021 10/25/2022 1 1 Specialty Diagnoses / Procedures Referred By Contac t Referred To Contact CT IMAGING Diagnoses Malignant neoplasm of breast in female, estrogen receptor positive, unspecified laterality, unspecified site of breast (HCC) Liver metastases (HCC) HER2-positive carcinoma of breast (HCC) Procedures CT ABD/PEL W IVCON CT ABD & PELVIS W/CONTRAST Christiano Centeno, [address] [place] [address] Ct Imaging Referral ID Status Reason Start Date Expiration Date V isits Requested Visits Authorized [id number] Closed Auto-Generate d Referral 09/25/2021 10/25/2022 1 1 Specialty Diagnoses / Procedures Referred By Contac t Referred To Contact Orthopedics Diagnoses Greater trochanteric pain syndrome of left lower extremity Procedures CONSULT TO ORTHOPAEDICS OFFICE/OUTPATIENT [facility] 60-74 MINUTES Christiano Centeno DO [address] [place] [address] Referral ID Status Reason Start Date Expiration Date Visits Requested Visits Authorized [id number] Pending Review PCP Requested Referral 11/09/2021 11/09/2022 1 1 Specialty Diagnoses / Procedures Referred By Contac t Referred To Contact MR IMAGING Diagnoses Liver metastases (HCC) Procedures MRI LIVER WO/W IVCON MRI ABDOMEN W/O & W/CONTRAST MATERIAL Jalyn Ramos MD [address] [place] [address] Mr Imaging Referral ID Status Reason Start Date Expiration Date V isits Requested Visits Authorized [id number] Closed Auto-Generate d Referral 11/26/2021 12/25/2022 1 1 Specialty Diagnoses / Procedures Referred By Contac t Referred To Contact MR IMAGING Diagnoses HER2-positive carcinoma of breast (HCC) Liver metastases (HCC) Procedures MRI BRAIN WO/W IVCON MRI BRAIN BRAIN STEM W/O W/CONTRAST MATERIAL Christiano Centeno DO [address] [place] [address] Mr Imaging Referral ID Status Reason Start Date Expiration Date V isits Requested Visits Authorized [id number] Closed Auto-Generate d Referral 02/18/2022 03/20/2023 1 1 Specialty Diagnoses / Procedures Referred By Contac t Referred To Contact Gastroenterology Diagnoses Posadas's esophagus without dysplasia Epigastric pain Gastroesophageal reflux disease, unspecified whether esophagitis present Procedures CONSULT TO GASTROENTEROLOGY OFFICE/OUTPATIENT NEW HIGH MDM 60-74 MINUTES Christiano Centeno, DO [address] [place] [address] Referral ID Status Reason Start Date Expiration Date Visits Requested Visits Authorized [id number] Pending Review PCP Requested Referral 12/01/2022 12/01/2023 1 1 [facility]oses [facility] Diagnoses HER2-positive carcinoma of breast (HCC) Liver metastases Procedures MRI ABDOMEN WO/W IVCON MRI ABDOMEN W/O & W/CONTRAST MATERIAL Christiano Centeno, DO [address] [place] [address] [place] [address] Referral ID Status Reason Start Date Expiration Date V isits Requested Visits Authorized [id number] Closed Auto-Generate d Referral 05/05/2022 06/04/2023 1 1 [facility] Diagnoses / [facility] Diagnoses Breast cancer, stage 4, left (HCC) 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) Procedures CT CHEST WO IVCON DIAGNOSTIC COMPUTED TOMOGRAPHY THORAX W/O CNTRST Christiano Centeno, DO [address] [place] [address] [place] [address] Referral ID Status Reason Start Date Expiration Date V isits Requested Visits Authorized [id number] Closed Auto-Generate d Referral 09/08/2022 10/08/2023 1 1 [facility] Diagnoses / [facility] MR [facility] Diagnoses Breast cancer, stage 4, left (HCC) Malignant neoplasm metastatic to liver (HCC) Procedures MRI ABDOMEN WO/W IVCON MRI ABDOMEN W/O & W/CONTRAST MATERIAL Christiano Centeno, DO [address] [place] [address] [place] [address] Referral ID Status Reason Start Date Expiration Date V isits Requested Visits Authorized [id number] Closed Auto-Generate d Referral 01/03/2023 02/02/2024 1 1 [facility] Diagnoses / [facility] Breast Diseases Diagnoses Local recurrence of cancer of left breast (HCC) HER2-positive carcinoma of breast (HCC) Procedures CONSULT TO BREAST CENTER OFFICE/OUTPATIENT [facility] 60-74 MINUTES Taryn Christiano Lara, DO [address] [place] [address] Referral ID Status Reason Start Date Expiration Date Visits Requested Visits Authorized [id number] Pending Review PCP Requested Referral 04/25/2024 1 1 [facility] Diagnoses / [facility] Diagnoses 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) Local recurrence of cancer of left breast (HCC) Procedures MRI ABDOMEN WO/W IVCON MRI ABDOMEN W/O & W/CONTRAST MATERIAL Christiano Centeno, DO [address] [place] [address] Mr Imaging [facility] Referral ID Status Reason Start Date Expiration Date V isits Requested Visits Authorized [id number] Closed Auto-Generate d Referral 04/27/2023 05/26/2024 1 1 [facility]ty Diagnoses / [facility] Diagnoses Local recurrence of cancer of left breast (HCC) Stage IV breast cancer in female (HCC) Procedures CONSULT TO BREAST REHAB PROGRAM THERAPEUTIC EXERCISES RE, EA 15 MIN. THERAPEUT ACTVITY DIRECT PT CONTACT EACH 15 MIN Callie Sullivan PA-C [address] [place] [address] [facility] [address] [place] [address] Referral ID Status Reason Start Date Expiration Date Visits Requested Visits Authorized [id number] Authorized PCP Requested Referral Auto-Generate d Referral 08/12/2023 08/11/2024 1 1 Specialty Diagnoses / Procedures Referred By Contac t Referred To Contact MR IMAGING Diagnoses Malignant neoplasm metastatic to liver (HCC) Procedures MRI BRAIN WO/W IVCON MRI BRAIN BRAIN STEM W/O W/CONTRAST MATERIAL Christiano Centeno DO [address] [facility] [place] [address] [place] [address] Referral ID Status Reason Start Date Expiration Date Visits Requested Visits Authorized [id number] Authorized Auto-Generat ed Referral 10/11/2023 11/09/2024 1 1 Referral ID Status Reason Start Date Expiration Date V isits Requested Visits Authorized [id number] Closed Auto-Generate d Referral 10/11/2023 11/09/2024 1 1 Specialty Diagnoses / Procedures Referred By Contac t Referred To Contact MR IMAGING Diagnoses 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, 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) Local recurrence of cancer of left breast (HCC) Procedures MRI ABDOMEN WO/W IVCON MRI ABDOMEN W/O & W/CONTRAST MATERIAL Domenic Kelley, DUTY MANAGER.GREASE REFINER OPERATOR [address] [place] [address] [place] [address] Referral ID Status Reason Start Date Expiration Date Visits Requested Visits Authorized [id number] Authorized Auto-Generat ed Referral 11/23/2023 12/22/2024 1 1 Specialty Diagnoses / Procedures Referred By Contac t Referred To Contact CT IMAGING Diagnoses Flank hernia Procedures CT ABD/PEL WO IVCON CT ABD & PELVIS W/O CONTRAST Vania Winn, DUTY MANAGER.GREASE REFINER OPERATOR [address] [place] [id number] [place] [address] Referral ID Status Reason Start Date Expiration Date Visits Requested Visits Authorized [id number] New Request Auto-Generat ed Referral 07/03/2024 08/02/2025 1 1 Additional Source Comments INFORMATION SOURCE (unrecogn ized section and content) DATE CREATED AUTHOR 01/31/2021 [facility] DATE CREATED AUTHOR AUTHOR'S ORGANIZ ATION 12/23/2021 [facility] DATE CREATED AUTHOR AUTHOR'S ORGANIZ ATION 01/08/2024 [facility] DATE CREATED AUTHOR AUTHOR'S ORGANIZ ATION 03/30/2024 [facility] DATE CREATED AUTHOR AUTHOR'S ORGANIZ ATION 11/29/2024 [facility] DATE CREATED AUTHOR AUTHOR'S ORGANIZ ATION 01/29/2025 [facility] DATE CREATED AUTHOR AUTHOR'S ORGANIZ ATION 03/24/2025 [facility] DATE CREATED AUTHOR AUTHOR'S ORGANIZ ATION 04/04/2025 [facility] Source Comments (unrecognize d section and content) In the event this informatio n is protected by the Federal Confidentiality of Alcohol and Drug Abuse Patient Records regulations: The Federal rules restrict any use of the information to criminally investigate or prosecute any alcohol or drug abuse patient.[facility] the event this information is protected by the Federal Confidentiality of Alcohol and Drug Abuse Patient Records regulations: The Federal rules restrict any use of the information to criminally investigate or prosecute any alcohol or drug abuse patient.[facility]In the event this information is protected by the Federal Confidentiality of Alcohol and Drug Abuse Patient Records regulations: The Federal rules restrict any use of the information to criminally investigate or prosecute any alcohol or drug abuse patient.[facility]In the event this information is protected by the Federal Confidentiality of Alcohol and Drug Abuse Patient Records regulations: The Federal rules restrict any use of the information to criminally investigate or prosecute any alcohol or drug abuse patient.[facility] HospitalIn the event this information is protected by the Federal Confidentiality of Alcohol and Drug Abuse Patient Records regulations: The Federal rules restrict any use of the information to criminally investigate or prosecute any alcohol or drug abuse patient.[facility] HospitalIn the event this information is protected by the Federal Confidentiality of Alcohol and Drug Abuse Patient Records regulations: The Federal rules restrict any use of the information to criminally investigate or prosecute any alcohol or drug abuse patient.[facility] HospitalIn the event this information is protected by the Federal Confidentiality of Alcohol and Drug Abuse Patient Records regulations: The Federal rules restrict any use of the information to criminally investigate or prosecute any alcohol or drug abuse patient.[facility] HospitalIn the event this information is protected by the Federal Confidentiality of Alcohol and Drug Abuse Patient Records regulations: The Federal rules restrict any use of the information to criminally investigate or prosecute any alcohol or drug abuse patient.[facility] HospitalIn the event this information is protected by the Federal Confidentiality of Alcohol and Drug Abuse Patient Records regulations: The Federal rules restrict any use of the information to criminally investigate or prosecute any alcohol or drug abuse patient.[facility] HospitalIn the event this information is protected by the Federal Confidentiality of Alcohol and Drug Abuse Patient Records regulations: The Federal rules restrict any use of the information to criminally investigate or prosecute any alcohol or drug abuse patient.[facility] HospitalIn the event this information is protected by the Federal Confidentiality of Alcohol and Drug Abuse Patient Records regulations: The Federal rules restrict any use of the information to criminally investigate or prosecute any alcohol or drug abuse patient.[facility] HospitalIn the event this information is protected by the Federal Confidentiality of Alcohol and Drug Abuse Patient Records regulations: The Federal rules restrict any use of the information to criminally investigate or prosecute any alcohol or drug abuse patient.[facility] HospitalIn the event this information is protected by the Federal Confidentiality of Alcohol and Drug Abuse Patient Records regulations: The Federal rules restrict any use of the information to criminally investigate or prosecute any alcohol or drug abuse patient.[facility] HospitalIn the event this information is protected by the Federal Confidentiality of Alcohol and Drug Abuse Patient Records regulations: The Federal rules restrict any use of the information to criminally investigate or prosecute any alcohol or drug abuse patient.[facility] HospitalIn the event this information is protected by the Federal Confidentiality of Alcohol and Drug Abuse Patient Records regulations: The Federal rules restrict any use of the information to criminally investigate or prosecute any alcohol or drug abuse patient.[facility] HospitalIn the event this information is protected by the Federal Confidentiality of Alcohol and Drug Abuse Patient Records regulations: The Federal rules restrict any use of the information to criminally investigate or prosecute any alcohol or drug abuse patient.[facility] HospitalIn the event this information is protected by the Federal Confidentiality of Alcohol and Drug Abuse Patient Records regulations: The Federal rules restrict any use of the information to criminally investigate or prosecute any alcohol or drug abuse patient.[facility] HospitalIn the event this information is protected by the Federal Confidentiality of Alcohol and Drug Abuse Patient Records regulations: The Federal rules restrict any use of the information to criminally investigate or prosecute any alcohol or drug abuse patient.[facility] HospitalIn the event this information is protected by the Federal Confidentiality of Alcohol and Drug Abuse Patient Records regulations: The Federal rules restrict any use of the information to criminally investigate or prosecute any alcohol or drug abuse patient.[facility] HospitalIn the event this information is protected by the Federal Confidentiality of Alcohol and Drug Abuse Patient Records regulations: The Federal rules restrict any use of the information to criminally investigate or prosecute any alcohol or drug abuse patient.[facility] HospitalIn the event this information is protected by the Federal Confidentiality of Alcohol and Drug Abuse Patient Records regulations: The Federal rules restrict any use of the information to criminally investigate or prosecute any alcohol or drug abuse patient.[facility] HospitalIn the event this information is protected by the Federal Confidentiality of Alcohol and Drug Abuse Patient Records regulations: The Federal rules restrict any use of the information to criminally investigate or prosecute any alcohol or drug abuse patient.[facility] HospitalIn the event this information is protected by the Federal Confidentiality of Alcohol and Drug Abuse Patient Records regulations: The Federal rules restrict any use of the information to criminally investigate or prosecute any alcohol or drug abuse patient.[facility] HospitalIn the event this information is protected by the Federal Confidentiality of Alcohol and Drug Abuse Patient Records regulations: The Federal rules restrict any use of the information to criminally investigate or prosecute any alcohol or drug abuse patient.[facility] HospitalIn the event this information is protected by the Federal Confidentiality of Alcohol and Drug Abuse Patient Records regulations: The Federal rules restrict any use of the information to criminally investigate or prosecute any alcohol or drug abuse patient.[facility] HospitalIn the event this information is protected by the Federal Confidentiality of Alcohol and Drug Abuse Patient Records regulations: The Federal rules restrict any use of the information to criminally investigate or prosecute any alcohol or drug abuse patient.[facility] HospitalIn the event this information is protected by the Federal Confidentiality of Alcohol and Drug Abuse Patient Records regulations: The Federal rules restrict any use of the information to criminally investigate or prosecute any alcohol or drug abuse patient.[facility] HospitalIn the event this information is protected by the Federal Confidentiality of Alcohol and Drug Abuse Patient Records regulations: The Federal rules restrict any use of the information to criminally investigate or prosecute any alcohol or drug abuse patient.[facility] HospitalIn the event this information is protected by the Federal Confidentiality of Alcohol and Drug Abuse Patient Records regulations: The Federal rules restrict any use of the information to criminally investigate or prosecute any alcohol or drug abuse patient.[facility] HospitalIn the event this information is protected by the Federal Confidentiality of Alcohol and Drug Abuse Patient Records regulations: The Federal rules restrict any use of the information to criminally investigate or prosecute any alcohol or drug abuse patient.[facility] HospitalIn the event this information is protected by the Federal Confidentiality of Alcohol and Drug Abuse Patient Records regulations: The Federal rules restrict any use of the information to criminally investigate or prosecute any alcohol or drug abuse patient.[facility] HospitalIn the event this information is protected by the Federal Confidentiality of Alcohol and Drug Abuse Patient Records regulations: The Federal rules restrict any use of the information to criminally investigate or prosecute any alcohol or drug abuse patient.[facility] HospitalIn the event this information is protected by the Federal Confidentiality of Alcohol and Drug Abuse Patient Records regulations: The Federal rules restrict any use of the information to criminally investigate or prosecute any alcohol or drug abuse patient.[facility] HospitalIn the event this information is protected by the Federal Confidentiality of Alcohol and Drug Abuse Patient Records regulations: The Federal rules restrict any use of the information to criminally investigate or prosecute any alcohol or drug abuse patient.[facility] HospitalIn the event this information is protected by the Federal Confidentiality of Alcohol and Drug Abuse Patient Records regulations: The Federal rules restrict any use of the information to criminally investigate or prosecute any alcohol or drug abuse patient.[facility] HospitalIn the event this information is protected by the Federal Confidentiality of Alcohol and Drug Abuse Patient Records regulations: The Federal rules restrict any use of the information to criminally investigate or prosecute any alcohol or drug abuse patient.[facility] HospitalIn the event this information is protected by the Federal Confidentiality of Alcohol and Drug Abuse Patient Records regulations: The Federal rules restrict any use of the information to criminally investigate or prosecute any alcohol or drug abuse patient.[facility] HospitalIn the event this information is protected by the Federal Confidentiality of Alcohol and Drug Abuse Patient Records regulations: The Federal rules restrict any use of the information to criminally investigate or prosecute any alcohol or drug abuse patient.[facility] HospitalIn the event this information is protected by the Federal Confidentiality of Alcohol and Drug Abuse Patient Records regulations: The Federal rules restrict any use of the information to criminally investigate or prosecute any alcohol or drug abuse patient.[facility] HospitalIn the event this information is protected by the Federal Confidentiality of Alcohol and Drug Abuse Patient Records regulations: The Federal rules restrict any use of the information to criminally investigate or prosecute any alcohol or drug abuse patient.[facility] HospitalIn the event this information is protected by the Federal Confidentiality of Alcohol and Drug Abuse Patient Records regulations: The Federal rules restrict any use of the information to criminally investigate or prosecute any alcohol or drug abuse patient.[facility] HospitalIn the event this information is protected by the Federal Confidentiality of Alcohol and Drug Abuse Patient Records regulations: The Federal rules restrict any use of the information to criminally investigate or prosecute any alcohol or drug abuse patient.[facility] HospitalIn the event this information is protected by the Federal Confidentiality of Alcohol and Drug Abuse Patient Records regulations: The Federal rules restrict any use of the information to criminally investigate or prosecute any alcohol or drug abuse patient.[facility] HospitalIn the event this information is protected by the Federal Confidentiality of Alcohol and Drug Abuse Patient Records regulations: The Federal rules restrict any use of the information to criminally investigate or prosecute any alcohol or drug abuse patient.[facility] HospitalIn the event this information is protected by the Federal Confidentiality of Alcohol and Drug Abuse Patient Records regulations: The Federal rules restrict any use of the information to criminally investigate or prosecute any alcohol or drug abuse patient.[facility] HospitalIn the event this information is protected by the Federal Confidentiality of Alcohol and Drug Abuse Patient Records regulations: The Federal rules restrict any use of the information to criminally investigate or prosecute any alcohol or drug abuse patient.[facility] HospitalIn the event this information is protected by the Federal Confidentiality of Alcohol and Drug Abuse Patient Records regulations: The Federal rules restrict any use of the information to criminally investigate or prosecute any alcohol or drug abuse patient.[facility] HospitalIn the event this information is protected by the Federal Confidentiality of Alcohol and Drug Abuse Patient Records regulations: The Federal rules restrict any use of the information to criminally investigate or prosecute any alcohol or drug abuse patient.[facility] HospitalIn the event this information is protected by the Federal Confidentiality of Alcohol and Drug Abuse Patient Records regulations: The Federal rules restrict any use of the information to criminally investigate or prosecute any alcohol or drug abuse patient.[facility] HospitalIn the event this information is protected by the Federal Confidentiality of Alcohol and Drug Abuse Patient Records regulations: The Federal rules restrict any use of the information to criminally investigate or prosecute any alcohol or drug abuse patient.[facility] HospitalIn the event this information is protected by the Federal Confidentiality of Alcohol and Drug Abuse Patient Records regulations: The Federal rules restrict any use of the information to criminally investigate or prosecute any alcohol or drug abuse patient.[facility] HospitalIn the event this information is protected by the Federal Confidentiality of Alcohol and Drug Abuse Patient Records regulations: The Federal rules restrict any use of the information to criminally investigate or prosecute any alcohol or drug abuse patient.[facility] HospitalIn the event this information is protected by the Federal Confidentiality of Alcohol and Drug Abuse Patient Records regulations: The Federal rules restrict any use of the information to criminally investigate or prosecute any alcohol or drug abuse patient.[facility] HospitalIn the event this information is protected by the Federal Confidentiality of Alcohol and Drug Abuse Patient Records regulations: The Federal rules restrict any use of the information to criminally investigate or prosecute any alcohol or drug abuse patient.[facility] HospitalIn the event this information is protected by the Federal Confidentiality of Alcohol and Drug Abuse Patient Records regulations: The Federal rules restrict any use of the information to criminally investigate or prosecute any alcohol or drug abuse patient.[facility] HospitalIn the event this information is protected by the Federal Confidentiality of Alcohol and Drug Abuse Patient Records regulations: The Federal rules restrict any use of the information to criminally investigate or prosecute any alcohol or drug abuse patient.[facility] HospitalIn the event this information is protected by the Federal Confidentiality of Alcohol and Drug Abuse Patient Records regulations: The Federal rules restrict any use of the information to criminally investigate or prosecute any alcohol or drug abuse patient.[facility] HospitalIn the event this information is protected by the Federal Confidentiality of Alcohol and Drug Abuse Patient Records regulations: The Federal rules restrict any use of the information to criminally investigate or prosecute any alcohol or drug abuse patient.[facility] HospitalIn the event this information is protected by the Federal Confidentiality of Alcohol and Drug Abuse Patient Records regulations: The Federal rules restrict any use of the information to criminally investigate or prosecute any alcohol or drug abuse patient.[facility] HospitalIn the event this information is protected by the Federal Confidentiality of Alcohol and Drug Abuse Patient Records regulations: The Federal rules restrict any use of the information to criminally investigate or prosecute any alcohol or drug abuse patient.[facility] HospitalIn the event this information is protected by the Federal Confidentiality of Alcohol and Drug Abuse Patient Records regulations: The Federal rules restrict any use of the information to criminally investigate or prosecute any alcohol or drug abuse patient.[facility] HospitalIn the event this information is protected by the Federal Confidentiality of Alcohol and Drug Abuse Patient Records regulations: The Federal rules restrict any use of the information to criminally investigate or prosecute any alcohol or drug abuse patient.[facility] HospitalIn the event this information is protected by the Federal Confidentiality of Alcohol and Drug Abuse Patient Records regulations: The Federal rules restrict any use of the information to criminally investigate or prosecute any alcohol or drug abuse patient.[facility] HospitalIn the event this information is protected by the Federal Confidentiality of Alcohol and Drug Abuse Patient Records regulations: The Federal rules restrict any use of the information to criminally investigate or prosecute any alcohol or drug abuse patient.[facility] HospitalIn the event this information is protected by the Federal Confidentiality of Alcohol and Drug Abuse Patient Records regulations: The Federal rules restrict any use of the information to criminally investigate or prosecute any alcohol or drug abuse patient.[facility] HospitalIn the event this information is protected by the Federal Confidentiality of Alcohol and Drug Abuse Patient Records regulations: The Federal rules restrict any use of the information to criminally investigate or prosecute any alcohol or drug abuse patient.[facility] HospitalIn the event this information is protected by the Federal Confidentiality of Alcohol and Drug Abuse Patient Records regulations: The Federal rules restrict any use of the information to criminally investigate or prosecute any alcohol or drug abuse patient.[facility] HospitalIn the event this information is protected by the Federal Confidentiality of Alcohol and Drug Abuse Patient Records regulations: The Federal rules restrict any use of the information to criminally investigate or prosecute any alcohol or drug abuse patient.[facility] HospitalIn the event this information is protected by the Federal Confidentiality of Alcohol and Drug Abuse Patient Records regulations: The Federal rules restrict any use of the information to criminally investigate or prosecute any alcohol or drug abuse patient.[facility] HospitalIn the event this information is protected by the Federal Confidentiality of Alcohol and Drug Abuse Patient Records regulations: The Federal rules restrict any use of the information to criminally investigate or prosecute any alcohol or drug abuse patient.[facility] HospitalIn the event this information is protected by the Federal Confidentiality of Alcohol and Drug Abuse Patient Records regulations: The Federal rules restrict any use of the information to criminally investigate or prosecute any alcohol or drug abuse patient.[facility] HospitalIn the event this information is protected by the Federal Confidentiality of Alcohol and Drug Abuse Patient Records regulations: The Federal rules restrict any use of the information to criminally investigate or prosecute any alcohol or drug abuse patient.[facility] HospitalIn the event this information is protected by the Federal Confidentiality of Alcohol and Drug Abuse Patient Records regulations: The Federal rules restrict any use of the information to criminally investigate or prosecute any alcohol or drug abuse patient.[facility] HospitalIn the event this information is protected by the Federal Confidentiality of Alcohol and Drug Abuse Patient Records regulations: The Federal rules restrict any use of the information to criminally investigate or prosecute any alcohol or drug abuse patient.[facility]In the event this information is protected by the Federal Confidentiality of Alcohol and Drug Abuse Patient Records regulations: The Federal rules restrict any use of the information to criminally investigate or prosecute any alcohol or drug abuse patient.[facility] HospitalIn the event this information is protected by the Federal Confidentiality of Alcohol and Drug Abuse Patient Records regulations: The Federal rules restrict any use of the information to criminally investigate or prosecute any alcohol or drug abuse patient.[facility] HospitalIn the event this information is protected by the Federal Confidentiality of Alcohol and Drug Abuse Patient Records regulations: The Federal rules restrict any use of the information to criminally investigate or prosecute any alcohol or drug abuse patient.[facility] HospitalIn the event this information is protected by the Federal Confidentiality of Alcohol and Drug Abuse Patient Records regulations: The Federal rules restrict any use of the information to criminally investigate or prosecute any alcohol or drug abuse patient.[facility] HospitalIn the event this information is protected by the Federal Confidentiality of Alcohol and Drug Abuse Patient Records regulations: The Federal rules restrict any use of the information to criminally investigate or prosecute any alcohol or drug abuse patient.[facility] HospitalIn the event this information is protected by the Federal Confidentiality of Alcohol and Drug Abuse Patient Records regulations: The Federal rules restrict any use of the information to criminally investigate or prosecute any alcohol or drug abuse patient.[facility] HospitalIn the event this information is protected by the Federal Confidentiality of Alcohol and Drug Abuse Patient Records regulations: The Federal rules restrict any use of the information to criminally investigate or prosecute any alcohol or drug abuse patient.[facility] HospitalIn the event this information is protected by the Federal Confidentiality of Alcohol and Drug Abuse Patient Records regulations: The Federal rules restrict any use of the information to criminally investigate or prosecute any alcohol or drug abuse patient.[facility] HospitalIn the event this information is protected by the Federal Confidentiality of Alcohol and Drug Abuse Patient Records regulations: The Federal rules restrict any use of the information to criminally investigate or prosecute any alcohol or drug abuse patient.[facility] HospitalIn the event this information is protected by the Federal Confidentiality of Alcohol and Drug Abuse Patient Records regulations: The Federal rules restrict any use of the information to criminally investigate or prosecute any alcohol or drug abuse patient.[facility] HospitalIn the event this information is protected by the Federal Confidentiality of Alcohol and Drug Abuse Patient Records regulations: The Federal rules restrict any use of the information to criminally investigate or prosecute any alcohol or drug abuse patient.[facility] HospitalIn the event this information is protected by the Federal Confidentiality of Alcohol and Drug Abuse Patient Records regulations: The Federal rules restrict any use of the information to criminally investigate or prosecute any alcohol or drug abuse patient.[facility] HospitalIn the event this information is protected by the Federal Confidentiality of Alcohol and Drug Abuse Patient Records regulations: The Federal rules restrict any use of the information to criminally investigate or prosecute any alcohol or drug abuse patient.[facility] HospitalIn the event this information is protected by the Federal Confidentiality of Alcohol and Drug Abuse Patient Records regulations: The Federal rules restrict any use of the information to criminally investigate or prosecute any alcohol or drug abuse patient.[facility] HospitalIn the event this information is protected by the Federal Confidentiality of Alcohol and Drug Abuse Patient Records regulations: The Federal rules restrict any use of the information to criminally investigate or prosecute any alcohol or drug abuse patient.[facility] HospitalIn the event this information is protected by the Federal Confidentiality of Alcohol and Drug Abuse Patient Records regulations: The Federal rules restrict any use of the information to criminally investigate or prosecute any alcohol or drug abuse patient.[facility] HospitalIn the event this information is protected by the Federal Confidentiality of Alcohol and Drug Abuse Patient Records regulations: The Federal rules restrict any use of the information to criminally investigate or prosecute any alcohol or drug abuse patient.[facility] HospitalIn the event this information is protected by the Federal Confidentiality of Alcohol and Drug Abuse Patient Records regulations: The Federal rules restrict any use of the information to criminally investigate or prosecute any alcohol or drug abuse patient.[facility] HospitalIn the event this information is protected by the Federal Confidentiality of Alcohol and Drug Abuse Patient Records regulations: The Federal rules restrict any use of the information to criminally investigate or prosecute any alcohol or drug abuse patient.[facility] HospitalIn the event this information is protected by the Federal Confidentiality of Alcohol and Drug Abuse Patient Records regulations: The Federal rules restrict any use of the information to criminally investigate or prosecute any alcohol or drug abuse patient.[facility] HospitalIn the event this information is protected by the Federal Confidentiality of Alcohol and Drug Abuse Patient Records regulations: The Federal rules restrict any use of the information to criminally investigate or prosecute any alcohol or drug abuse patient.[facility] HospitalIn the event this information is protected by the Federal Confidentiality of Alcohol and Drug Abuse Patient Records regulations: The Federal rules restrict any use of the information to criminally investigate or prosecute any alcohol or drug abuse patient.[facility] HospitalIn the event this information is protected by the Federal Confidentiality of Alcohol and Drug Abuse Patient Records regulations: The Federal rules restrict any use of the information to criminally investigate or prosecute any alcohol or drug abuse patient.[facility] HospitalIn the event this information is protected by the Federal Confidentiality of Alcohol and Drug Abuse Patient Records regulations: The Federal rules restrict any use of the information to criminally investigate or prosecute any alcohol or drug abuse patient.[facility] HospitalIn the event this information is protected by the Federal Confidentiality of Alcohol and Drug Abuse Patient Records regulations: The Federal rules restrict any use of the information to criminally investigate or prosecute any alcohol or drug abuse patient.[facility] HospitalIn the event this information is protected by the Federal Confidentiality of Alcohol and Drug Abuse Patient Records regulations: The Federal rules restrict any use of the information to criminally investigate or prosecute any alcohol or drug abuse patient.[facility] HospitalIn the event this information is protected by the Federal Confidentiality of Alcohol and Drug Abuse Patient Records regulations: The Federal rules restrict any use of the information to criminally investigate or prosecute any alcohol or drug abuse patient.[facility] HospitalIn the event this information is protected by the Federal Confidentiality of Alcohol and Drug Abuse Patient Records regulations: The Federal rules restrict any use of the information to criminally investigate or prosecute any alcohol or drug abuse patient.[facility] HospitalIn the event this information is protected by the Federal Confidentiality of Alcohol and Drug Abuse Patient Records regulations: The Federal rules restrict any use of the information to criminally investigate or prosecute any alcohol or drug abuse patient.[facility] HospitalIn the event this information is protected by the Federal Confidentiality of Alcohol and Drug Abuse Patient Records regulations: The Federal rules restrict any use of the information to criminally investigate or prosecute any alcohol or drug abuse patient.[facility] HospitalIn the event this information is protected by the Federal Confidentiality of Alcohol and Drug Abuse Patient Records regulations: The Federal rules restrict any use of the information to criminally investigate or prosecute any alcohol or drug abuse patient.[facility] HospitalIn the event this information is protected by the Federal Confidentiality of Alcohol and Drug Abuse Patient Records regulations: The Federal rules restrict any use of the information to criminally investigate or prosecute any alcohol or drug abuse patient.[facility] HospitalIn the event this information is protected by the Federal Confidentiality of Alcohol and Drug Abuse Patient Records regulations: The Federal rules restrict any use of the information to criminally investigate or prosecute any alcohol or drug abuse patient.[facility] HospitalIn the event this information is protected by the Federal Confidentiality of Alcohol and Drug Abuse Patient Records regulations: The Federal rules restrict any use of the information to criminally investigate or prosecute any alcohol or drug abuse patient.[facility] HospitalIn the event this information is protected by the Federal Confidentiality of Alcohol and Drug Abuse Patient Records regulations: The Federal rules restrict any use of the information to criminally investigate or prosecute any alcohol or drug abuse patient.[facility] HospitalIn the event this information is protected by the Federal Confidentiality of Alcohol and Drug Abuse Patient Records regulations: The Federal rules restrict any use of the information to criminally investigate or prosecute any alcohol or drug abuse patient.[facility] HospitalIn the event this information is protected by the Federal Confidentiality of Alcohol and Drug Abuse Patient Records regulations: The Federal rules restrict any use of the information to criminally investigate or prosecute any alcohol or drug abuse patient.[facility] HospitalIn the event this information is protected by the Federal Confidentiality of Alcohol and Drug Abuse Patient Records regulations: The Federal rules restrict any use of the information to criminally investigate or prosecute any alcohol or drug abuse patient.[facility] HospitalIn the event this information is protected by the Federal Confidentiality of Alcohol and Drug Abuse Patient Records regulations: The Federal rules restrict any use of the information to criminally investigate or prosecute any alcohol or drug abuse patient.[facility] HospitalIn the event this information is protected by the Federal Confidentiality of Alcohol and Drug Abuse Patient Records regulations: The Federal rules restrict any use of the information to criminally investigate or prosecute any alcohol or drug abuse patient.[facility] HospitalIn the event this information is protected by the Federal Confidentiality of Alcohol and Drug Abuse Patient Records regulations: The Federal rules restrict any use of the information to criminally investigate or prosecute any alcohol or drug abuse patient.[facility] HospitalIn the event this information is protected by the Federal Confidentiality of Alcohol and Drug Abuse Patient Records regulations: The Federal rules restrict any use of the information to criminally investigate or prosecute any alcohol or drug abuse patient.[facility] HospitalIn the event this information is protected by the Federal Confidentiality of Alcohol and Drug Abuse Patient Records regulations: The Federal rules restrict any use of the information to criminally investigate or prosecute any alcohol or drug abuse patient.[facility] HospitalIn the event this information is protected by the Federal Confidentiality of Alcohol and Drug Abuse Patient Records regulations: The Federal rules restrict any use of the information to criminally investigate or prosecute any alcohol or drug abuse patient.[facility] HospitalIn the event this information is protected by the Federal Confidentiality of Alcohol and Drug Abuse Patient Records regulations: The Federal rules restrict any use of the information to criminally investigate or prosecute any alcohol or drug abuse patient.[facility] HospitalIn the event this information is protected by the Federal Confidentiality of Alcohol and Drug Abuse Patient Records regulations: The Federal rules restrict any use of the information to criminally investigate or prosecute any alcohol or drug abuse patient.[facility] HospitalIn the event this information is protected by the Federal Confidentiality of Alcohol and Drug Abuse Patient Records regulations: The Federal rules restrict any use of the information to criminally investigate or prosecute any alcohol or drug abuse patient.[facility] HospitalIn the event this information is protected by the Federal Confidentiality of Alcohol and Drug Abuse Patient Records regulations: The Federal rules restrict any use of the information to criminally investigate or prosecute any alcohol or drug abuse patient.[facility] HospitalIn the event this information is protected by the Federal Confidentiality of Alcohol and Drug Abuse Patient Records regulations: The Federal rules restrict any use of the information to criminally investigate or prosecute any alcohol or drug abuse patient.[facility] HospitalIn the event this information is protected by the Federal Confidentiality of Alcohol and Drug Abuse Patient Records regulations: The Federal rules restrict any use of the information to criminally investigate or prosecute any alcohol or drug abuse patient.[facility] HospitalIn the event this information is protected by the Federal Confidentiality of Alcohol and Drug Abuse Patient Records regulations: The Federal rules restrict any use of the information to criminally investigate or prosecute any alcohol or drug abuse patient.[facility] HospitalIn the event this information is protected by the Federal Confidentiality of Alcohol and Drug Abuse Patient Records regulations: The Federal rules restrict any use of the information to criminally investigate or prosecute any alcohol or drug abuse patient.[facility] HospitalIn the event this information is protected by the Federal Confidentiality of Alcohol and Drug Abuse Patient Records regulations: The Federal rules restrict any use of the information to criminally investigate or prosecute any alcohol or drug abuse patient.[facility] HospitalIn the event this information is protected by the Federal Confidentiality of Alcohol and Drug Abuse Patient Records regulations: The Federal rules restrict any use of the information to criminally investigate or prosecute any alcohol or drug abuse patient.[facility] HospitalIn the event this information is protected by the Federal Confidentiality of Alcohol and Drug Abuse Patient Records regulations: The Federal rules restrict any use of the information to criminally investigate or prosecute any alcohol or drug abuse patient.[facility] HospitalIn the event this information is protected by the Federal Confidentiality of Alcohol and Drug Abuse Patient Records regulations: The Federal rules restrict any use of the information to criminally investigate or prosecute any alcohol or drug abuse patient.[facility] HospitalIn the event this information is protected by the Federal Confidentiality of Alcohol and Drug Abuse Patient Records regulations: The Federal rules restrict any use of the information to criminally investigate or prosecute any alcohol or drug abuse patient.[facility] HospitalIn the event this information is protected by the Federal Confidentiality of Alcohol and Drug Abuse Patient Records regulations: The Federal rules restrict any use of the information to criminally investigate or prosecute any alcohol or drug abuse patient.[facility] HospitalIn the event this information is protected by the Federal Confidentiality of Alcohol and Drug Abuse Patient Records regulations: The Federal rules restrict any use of the information to criminally investigate or prosecute any alcohol or drug abuse patient.[facility] HospitalIn the event this information is protected by the Federal Confidentiality of Alcohol and Drug Abuse Patient Records regulations: The Federal rules restrict any use of the information to criminally investigate or prosecute any alcohol or drug abuse patient.[facility] HospitalIn the event this information is protected by the Federal Confidentiality of Alcohol and Drug Abuse Patient Records regulations: The Federal rules restrict any use of the information to criminally investigate or prosecute any alcohol or drug abuse patient.[facility] HospitalIn the event this information is protected by the Federal Confidentiality of Alcohol and Drug Abuse Patient Records regulations: The Federal rules restrict any use of the information to criminally investigate or prosecute any alcohol or drug abuse patient.[facility] HospitalIn the event this information is protected by the Federal Confidentiality of Alcohol and Drug Abuse Patient Records regulations: The Federal rules restrict any use of the information to criminally investigate or prosecute any alcohol or drug abuse patient.[facility] HospitalIn the event this information is protected by the Federal Confidentiality of Alcohol and Drug Abuse Patient Records regulations: The Federal rules restrict any use of the information to criminally investigate or prosecute any alcohol or drug abuse patient.[facility] HospitalIn the event this information is protected by the Federal Confidentiality of Alcohol and Drug Abuse Patient Records regulations: The Federal rules restrict any use of the information to criminally investigate or prosecute any alcohol or drug abuse patient.[facility] HospitalIn the event this information is protected by the Federal Confidentiality of Alcohol and Drug Abuse Patient Records regulations: The Federal rules restrict any use of the information to criminally investigate or prosecute any alcohol or drug abuse patient.[facility] HospitalIn the event this information is protected by the Federal Confidentiality of Alcohol and Drug Abuse Patient Records regulations: The Federal rules restrict any use of the information to criminally investigate or prosecute any alcohol or drug abuse patient.[facility] HospitalIn the event this information is protected by the Federal Confidentiality of Alcohol and Drug Abuse Patient Records regulations: The Federal rules restrict any use of the information to criminally investigate or prosecute any alcohol or drug abuse patient.[facility] HospitalIn the event this information is protected by the Federal Confidentiality of Alcohol and Drug Abuse Patient Records regulations: The Federal rules restrict any use of the information to criminally investigate or prosecute any alcohol or drug abuse patient.[facility] HospitalIn the event this information is protected by the Federal Confidentiality of Alcohol and Drug Abuse Patient Records regulations: The Federal rules restrict any use of the information to criminally investigate or prosecute any alcohol or drug abuse patient.[facility] HospitalIn the event this information is protected by the Federal Confidentiality of Alcohol and Drug Abuse Patient Records regulations: The Federal rules restrict any use of the information to criminally investigate or prosecute any alcohol or drug abuse patient.[facility] HospitalIn the event this information is protected by the Federal Confidentiality of Alcohol and Drug Abuse Patient Records regulations: The Federal rules restrict any use of the information to criminally investigate or prosecute any alcohol or drug abuse patient.[facility] HospitalIn the event this information is protected by the Federal Confidentiality of Alcohol and Drug Abuse Patient Records regulations: The Federal rules restrict any use of the information to criminally investigate or prosecute any alcohol or drug abuse patient.[facility] HospitalIn the event this information is protected by the Federal Confidentiality of Alcohol and Drug Abuse Patient Records regulations: The Federal rules restrict any use of the information to criminally investigate or prosecute any alcohol or drug abuse patient.[facility] HospitalIn the event this information is protected by the Federal Confidentiality of Alcohol and Drug Abuse Patient Records regulations: The Federal rules restrict any use of the information to criminally investigate or prosecute any alcohol or drug abuse patient.[facility] HospitalIn the event this information is protected by the Federal Confidentiality of Alcohol and Drug Abuse Patient Records regulations: The Federal rules restrict any use of the information to criminally investigate or prosecute any alcohol or drug abuse patient.[facility] HospitalIn the event this information is protected by the Federal Confidentiality of Alcohol and Drug Abuse Patient Records regulations: The Federal rules restrict any use of the information to criminally investigate or prosecute any alcohol or drug abuse patient.[facility] HospitalIn the event this information is protected by the Federal Confidentiality of Alcohol and Drug Abuse Patient Records regulations: The Federal rules restrict any use of the information to criminally investigate or prosecute any alcohol or drug abuse patient.[facility] HospitalIn the event this information is protected by the Federal Confidentiality of Alcohol and Drug Abuse Patient Records regulations: The Federal rules restrict any use of the information to criminally investigate or prosecute any alcohol or drug abuse patient.[facility] HospitalIn the event this information is protected by the Federal Confidentiality of Alcohol and Drug Abuse Patient Records regulations: The Federal rules restrict any use of the information to criminally investigate or prosecute any alcohol or drug abuse patient.[facility] HospitalIn the event this information is protected by the Federal Confidentiality of Alcohol and Drug Abuse Patient Records regulations: The Federal rules restrict any use of the information to criminally investigate or prosecute any alcohol or drug abuse patient.[facility] HospitalIn the event this information is protected by the Federal Confidentiality of Alcohol and Drug Abuse Patient Records regulations: The Federal rules restrict any use of the information to criminally investigate or prosecute any alcohol or drug abuse patient.[facility] HospitalIn the event this information is protected by the Federal Confidentiality of Alcohol and Drug Abuse Patient Records regulations: The Federal rules restrict any use of the information to criminally investigate or prosecute any alcohol or drug abuse patient.[facility] HospitalIn the event this information is protected by the Federal Confidentiality of Alcohol and Drug Abuse Patient Records regulations: The Federal rules restrict any use of the information to criminally investigate or prosecute any alcohol or drug abuse patient.[facility] HospitalIn the event this information is protected by the Federal Confidentiality of Alcohol and Drug Abuse Patient Records regulations: The Federal rules restrict any use of the information to criminally investigate or prosecute any alcohol or drug abuse patient.[facility] HospitalIn the event this information is protected by the Federal Confidentiality of Alcohol and Drug Abuse Patient Records regulations: The Federal rules restrict any use of the information to criminally investigate or prosecute any alcohol or drug abuse patient.[facility] HospitalIn the event this information is protected by the Federal Confidentiality of Alcohol and Drug Abuse Patient Records regulations: The Federal rules restrict any use of the information to criminally investigate or prosecute any alcohol or drug abuse patient.[facility]In the event this information is protected by the Federal Confidentiality of Alcohol and Drug Abuse Patient Records regulations: The Federal rules restrict any use of the information to criminally investigate or prosecute any alcohol or drug abuse patient.[facility]In the event this information is protected by the Federal Confidentiality of Alcohol and Drug Abuse Patient Records regulations: The Federal rules restrict any use of the information to criminally investigate or prosecute any alcohol or drug abuse patient.[facility]In the event this information is protected by the Federal Confidentiality of Alcohol and Drug Abuse Patient Records regulations: The Federal rules restrict any use of the information to criminally investigate or prosecute any alcohol or drug abuse patient.[facility] HospitalIn the event this information is protected by the Federal Confidentiality of Alcohol and Drug Abuse Patient Records regulations: The Federal rules restrict any use of the information to criminally investigate or prosecute any alcohol or drug abuse patient.[facility] HospitalIn the event this information is protected by the Federal Confidentiality of Alcohol and Drug Abuse Patient Records regulations: The Federal rules restrict any use of the information to criminally investigate or prosecute any alcohol or drug abuse patient.[facility] HospitalIn the event this information is protected by the Federal Confidentiality of Alcohol and Drug Abuse Patient Records regulations: The Federal rules restrict any use of the information to criminally investigate or prosecute any alcohol or drug abuse patient.[facility]In the event this information is protected by the Federal Confidentiality of Alcohol and Drug Abuse Patient Records regulations: The Federal rules restrict any use of the information to criminally investigate or prosecute any alcohol or drug abuse patient.[facility]In the event this information is protected by the Federal Confidentiality of Alcohol and Drug Abuse Patient Records regulations: The Federal rules restrict any use of the information to criminally investigate or prosecute any alcohol or drug abuse patient.[facility] HospitalIn the event this information is protected by the Federal Confidentiality of Alcohol and Drug Abuse Patient Records regulations: The Federal rules restrict any use of the information to criminally investigate or prosecute any alcohol or drug abuse patient.[facility] HospitalIn the event this information is protected by the Federal Confidentiality of Alcohol and Drug Abuse Patient Records regulations: The Federal rules restrict any use of the information to criminally investigate or prosecute any alcohol or drug abuse patient.[facility] HospitalIn the event this information is protected by the Federal Confidentiality of Alcohol and Drug Abuse Patient Records regulations: The Federal rules restrict any use of the information to criminally investigate or prosecute any alcohol or drug abuse patient.[facility]In the event this information is protected by the Federal Confidentiality of Alcohol and Drug Abuse Patient Records regulations: The Federal rules restrict any use of the information to criminally investigate or prosecute any alcohol or drug abuse patient.[facility] HospitalIn the event this information is protected by the Federal Confidentiality of Alcohol and Drug Abuse Patient Records regulations: The Federal rules restrict any use of the information to criminally investigate or prosecute any alcohol or drug abuse patient.[facility] HospitalIn the event this information is protected by the Federal Confidentiality of Alcohol and Drug Abuse Patient Records regulations: The Federal rules restrict any use of the information to criminally investigate or prosecute any alcohol or drug abuse patient.[facility] HospitalIn the event this information is protected by the Federal Confidentiality of Alcohol and Drug Abuse Patient Records regulations: The Federal rules restrict any use of the information to criminally investigate or prosecute any alcohol or drug abuse patient.[facility] HospitalIn the event this information is protected by the Federal Confidentiality of Alcohol and Drug Abuse Patient Records regulations: The Federal rules restrict any use of the information to criminally investigate or prosecute any alcohol or drug abuse patient.[facility] HospitalIn the event this information is protected by the Federal Confidentiality of Alcohol and Drug Abuse Patient Records regulations: The Federal rules restrict any use of the information to criminally investigate or prosecute any alcohol or drug abuse patient.[facility] HospitalIn the event this information is protected by the Federal Confidentiality of Alcohol and Drug Abuse Patient Records regulations: The Federal rules restrict any use of the information to criminally investigate or prosecute any alcohol or drug abuse patient.[facility] HospitalIn the event this information is protected by the Federal Confidentiality of Alcohol and Drug Abuse Patient Records regulations: The Federal rules restrict any use of the information to criminally investigate or prosecute any alcohol or drug abuse patient.[facility] HospitalIn the event this information is protected by the Federal Confidentiality of Alcohol and Drug Abuse Patient Records regulations: The Federal rules restrict any use of the information to criminally investigate or prosecute any alcohol or drug abuse patient.[facility] HospitalIn the event this information is protected by the Federal Confidentiality of Alcohol and Drug Abuse Patient Records regulations: The Federal rules restrict any use of the information to criminally investigate or prosecute any alcohol or drug abuse patient.[facility] HospitalIn the event this information is protected by the Federal Confidentiality of Alcohol and Drug Abuse Patient Records regulations: The Federal rules restrict any use of the information to criminally investigate or prosecute any alcohol or drug abuse patient.[facility] HospitalIn the event this information is protected by the Federal Confidentiality of Alcohol and Drug Abuse Patient Records regulations: The Federal rules restrict any use of the information to criminally investigate or prosecute any alcohol or drug abuse patient.[facility] HospitalIn the event this information is protected by the Federal Confidentiality of Alcohol and Drug Abuse Patient Records regulations: The Federal rules restrict any use of the information to criminally investigate or prosecute any alcohol or drug abuse patient.[facility] HospitalIn the event this information is protected by the Federal Confidentiality of Alcohol and Drug Abuse Patient Records regulations: The Federal rules restrict any use of the information to criminally investigate or prosecute any alcohol or drug abuse patient.[facility] HospitalIn the event this information is protected by the Federal Confidentiality of Alcohol and Drug Abuse Patient Records regulations: The Federal rules restrict any use of the information to criminally investigate or prosecute any alcohol or drug abuse patient.[facility] HospitalIn the event this information is protected by the Federal Confidentiality of Alcohol and Drug Abuse Patient Records regulations: The Federal rules restrict any use of the information to criminally investigate or prosecute any alcohol or drug abuse patient.[facility] HospitalIn the event this information is protected by the Federal Confidentiality of Alcohol and Drug Abuse Patient Records regulations: The Federal rules restrict any use of the information to criminally investigate or prosecute any alcohol or drug abuse patient.[facility] HospitalIn the event this information is protected by the Federal Confidentiality of Alcohol and Drug Abuse Patient Records regulations: The Federal rules restrict any use of the information to criminally investigate or prosecute any alcohol or drug abuse patient.[facility] HospitalIn the event this information is protected by the Federal Confidentiality of Alcohol and Drug Abuse Patient Records regulations: The Federal rules restrict any use of the information to criminally investigate or prosecute any alcohol or drug abuse patient.[facility] HospitalIn the event this information is protected by the Federal Confidentiality of Alcohol and Drug Abuse Patient Records regulations: The Federal rules restrict any use of the information to criminally investigate or prosecute any alcohol or drug abuse patient.[facility] HospitalIn the event this information is protected by the Federal Confidentiality of Alcohol and Drug Abuse Patient Records regulations: The Federal rules restrict any use of the information to criminally investigate or prosecute any alcohol or drug abuse patient.[facility] HospitalIn the event this information is protected by the Federal Confidentiality of Alcohol and Drug Abuse Patient Records regulations: The Federal rules restrict any use of the information to criminally investigate or prosecute any alcohol or drug abuse patient.[facility] HospitalIn the event this information is protected by the Federal Confidentiality of Alcohol and Drug Abuse Patient Records regulations: The Federal rules restrict any use of the information to criminally investigate or prosecute any alcohol or drug abuse patient.[facility] HospitalIn the event this information is protected by the Federal Confidentiality of Alcohol and Drug Abuse Patient Records regulations: The Federal rules restrict any use of the information to criminally investigate or prosecute any alcohol or drug abuse patient.[facility] HospitalIn the event this information is protected by the Federal Confidentiality of Alcohol and Drug Abuse Patient Records regulations: The Federal rules restrict any use of the information to criminally investigate or prosecute any alcohol or drug abuse patient.[facility] HospitalIn the event this information is protected by the Federal Confidentiality of Alcohol and Drug Abuse Patient Records regulations: The Federal rules restrict any use of the information to criminally investigate or prosecute any alcohol or drug abuse patient.[facility] HospitalIn the event this information is protected by the Federal Confidentiality of Alcohol and Drug Abuse Patient Records regulations: The Federal rules restrict any use of the information to criminally investigate or prosecute any alcohol or drug abuse patient.[facility] HospitalIn the event this information is protected by the Federal Confidentiality of Alcohol and Drug Abuse Patient Records regulations: The Federal rules restrict any use of the information to criminally investigate or prosecute any alcohol or drug abuse patient.[facility] HospitalIn the event this information is protected by the Federal Confidentiality of Alcohol and Drug Abuse Patient Records regulations: The Federal rules restrict any use of the information to criminally investigate or prosecute any alcohol or drug abuse patient.[facility] HospitalIn the event this information is protected by the Federal Confidentiality of Alcohol and Drug Abuse Patient Records regulations: The Federal rules restrict any use of the information to criminally investigate or prosecute any alcohol or drug abuse patient.[facility] HospitalIn the event this information is protected by the Federal Confidentiality of Alcohol and Drug Abuse Patient Records regulations: The Federal rules restrict any use of the information to criminally investigate or prosecute any alcohol or drug abuse patient.[facility] HospitalIn the event this information is protected by the Federal Confidentiality of Alcohol and Drug Abuse Patient Records regulations: The Federal rules restrict any use of the information to criminally investigate or prosecute any alcohol or drug abuse patient.[facility] HospitalIn the event this information is protected by the Federal Confidentiality of Alcohol and Drug Abuse Patient Records regulations: The Federal rules restrict any use of the information to criminally investigate or prosecute any alcohol or drug abuse patient.[facility] HospitalIn the event this information is protected by the Federal Confidentiality of Alcohol and Drug Abuse Patient Records regulations: The Federal rules restrict any use of the information to criminally investigate or prosecute any alcohol or drug abuse patient.[facility] HospitalIn the event this information is protected by the Federal Confidentiality of Alcohol and Drug Abuse Patient Records regulations: The Federal rules restrict any use of the information to criminally investigate or prosecute any alcohol or drug abuse patient.[facility] HospitalIn the event this information is protected by the Federal Confidentiality of Alcohol and Drug Abuse Patient Records regulations: The Federal rules restrict any use of the information to criminally investigate or prosecute any alcohol or drug abuse patient.[facility] HospitalIn the event this information is protected by the Federal Confidentiality of Alcohol and Drug Abuse Patient Records regulations: The Federal rules restrict any use of the information to criminally investigate or prosecute any alcohol or drug abuse patient.[facility] HospitalIn the event this information is protected by the Federal Confidentiality of Alcohol and Drug Abuse Patient Records regulations: The Federal rules restrict any use of the information to criminally investigate or prosecute any alcohol or drug abuse patient.[facility] HospitalIn the event this information is protected by the Federal Confidentiality of Alcohol and Drug Abuse Patient Records regulations: The Federal rules restrict any use of the information to criminally investigate or prosecute any alcohol or drug abuse patient.[facility] HospitalIn the event this information is protected by the Federal Confidentiality of Alcohol and Drug Abuse Patient Records regulations: The Federal rules restrict any use of the information to criminally investigate or prosecute any alcohol or drug abuse patient.[facility] HospitalIn the event this information is protected by the Federal Confidentiality of Alcohol and Drug Abuse Patient Records regulations: The Federal rules restrict any use of the information to criminally investigate or prosecute any alcohol or drug abuse patient.[facility] HospitalIn the event this information is protected by the Federal Confidentiality of Alcohol and Drug Abuse Patient Records regulations: The Federal rules restrict any use of the information to criminally investigate or prosecute any alcohol or drug abuse patient.[facility] HospitalIn the event this information is protected by the Federal Confidentiality of Alcohol and Drug Abuse Patient Records regulations: The Federal rules restrict any use of the information to criminally investigate or prosecute any alcohol or drug abuse patient.[facility] HospitalIn the event this information is protected by the Federal Confidentiality of Alcohol and Drug Abuse Patient Records regulations: The Federal rules restrict any use of the information to criminally investigate or prosecute any alcohol or drug abuse patient.[facility] HospitalIn the event this information is protected by the Federal Confidentiality of Alcohol and Drug Abuse Patient Records regulations: The Federal rules restrict any use of the information to criminally investigate or prosecute any alcohol or drug abuse patient.[facility] HospitalIn the event this information is protected by the Federal Confidentiality of Alcohol and Drug Abuse Patient Records regulations: The Federal rules restrict any use of the information to criminally investigate or prosecute any alcohol or drug abuse patient.[facility] HospitalIn the event this information is protected by the Federal Confidentiality of Alcohol and Drug Abuse Patient Records regulations: The Federal rules restrict any use of the information to criminally investigate or prosecute any alcohol or drug abuse patient.[facility] HospitalIn the event this information is protected by the Federal Confidentiality of Alcohol and Drug Abuse Patient Records regulations: The Federal rules restrict any use of the information to criminally investigate or prosecute any alcohol or drug abuse patient.[facility] HospitalIn the event this information is protected by the Federal Confidentiality of Alcohol and Drug Abuse Patient Records regulations: The Federal rules restrict any use of the information to criminally investigate or prosecute any alcohol or drug abuse patient.[facility] HospitalIn the event this information is protected by the Federal Confidentiality of Alcohol and Drug Abuse Patient Records regulations: The Federal rules restrict any use of the information to criminally investigate or prosecute any alcohol or drug abuse patient.[facility] HospitalIn the event this information is protected by the Federal Confidentiality of Alcohol and Drug Abuse Patient Records regulations: The Federal rules restrict any use of the information to criminally investigate or prosecute any alcohol or drug abuse patient.[facility] HospitalIn the event this information is protected by the Federal Confidentiality of Alcohol and Drug Abuse Patient Records regulations: The Federal rules restrict any use of the information to criminally investigate or prosecute any alcohol or drug abuse patient.[facility] HospitalIn the event this information is protected by the Federal Confidentiality of Alcohol and Drug Abuse Patient Records regulations: The Federal rules restrict any use of the information to criminally investigate or prosecute any alcohol or drug abuse patient.[facility] HospitalIn the event this information is protected by the Federal Confidentiality of Alcohol and Drug Abuse Patient Records regulations: The Federal rules restrict any use of the information to criminally investigate or prosecute any alcohol or drug abuse patient.[facility] HospitalIn the event this information is protected by the Federal Confidentiality of Alcohol and Drug Abuse Patient Records regulations: The Federal rules restrict any use of the information to criminally investigate or prosecute any alcohol or drug abuse patient.[facility] HospitalIn the event this information is protected by the Federal Confidentiality of Alcohol and Drug Abuse Patient Records regulations: The Federal rules restrict any use of the information to criminally investigate or prosecute any alcohol or drug abuse patient.[facility] HospitalIn the event this information is protected by the Federal Confidentiality of Alcohol and Drug Abuse Patient Records regulations: The Federal rules restrict any use of the information to criminally investigate or prosecute any alcohol or drug abuse patient.[facility] HospitalIn the event this information is protected by the Federal Confidentiality of Alcohol and Drug Abuse Patient Records regulations: The Federal rules restrict any use of the information to criminally investigate or prosecute any alcohol or drug abuse patient.[facility] HospitalIn the event this information is protected by the Federal Confidentiality of Alcohol and Drug Abuse Patient Records regulations: The Federal rules restrict any use of the information to criminally investigate or prosecute any alcohol or drug abuse patient.[facility] HospitalIn the event this information is protected by the Federal Confidentiality of Alcohol and Drug Abuse Patient Records regulations: The Federal rules restrict any use of the information to criminally investigate or prosecute any alcohol or drug abuse patient.[facility] HospitalIn the event this information is protected by the Federal Confidentiality of Alcohol and Drug Abuse Patient Records regulations: The Federal rules restrict any use of the information to criminally investigate or prosecute any alcohol or drug abuse patient.[facility] HospitalIn the event this information is protected by the Federal Confidentiality of Alcohol and Drug Abuse Patient Records regulations: The Federal rules restrict any use of the information to criminally investigate or prosecute any alcohol or drug abuse patient.[facility] HospitalIn the event this information is protected by the Federal Confidentiality of Alcohol and Drug Abuse Patient Records regulations: The Federal rules restrict any use of the information to criminally investigate or prosecute any alcohol or drug abuse patient.[facility] HospitalIn the event this information is protected by the Federal Confidentiality of Alcohol and Drug Abuse Patient Records regulations: The Federal rules restrict any use of the information to criminally investigate or prosecute any alcohol or drug abuse patient.[facility] HospitalIn the event this information is protected by the Federal Confidentiality of Alcohol and Drug Abuse Patient Records regulations: The Federal rules restrict any use of the information to criminally investigate or prosecute any alcohol or drug abuse patient.[facility] HospitalIn the event this information is protected by the Federal Confidentiality of Alcohol and Drug Abuse Patient Records regulations: The Federal rules restrict any use of the information to criminally investigate or prosecute any alcohol or drug abuse patient.[facility] HospitalIn the event this information is protected by the Federal Confidentiality of Alcohol and Drug Abuse Patient Records regulations: The Federal rules restrict any use of the information to criminally investigate or prosecute any alcohol or drug abuse patient.[facility] HospitalIn the event this information is protected by the Federal Confidentiality of Alcohol and Drug Abuse Patient Records regulations: The Federal rules restrict any use of the information to criminally investigate or prosecute any alcohol or drug abuse patient.[facility] HospitalIn the event this information is protected by the Federal Confidentiality of Alcohol and Drug Abuse Patient Records regulations: The Federal rules restrict any use of the information to criminally investigate or prosecute any alcohol or drug abuse patient.[facility] HospitalIn the event this information is protected by the Federal Confidentiality of Alcohol and Drug Abuse Patient Records regulations: The Federal rules restrict any use of the information to criminally investigate or prosecute any alcohol or drug abuse patient.[facility] HospitalIn the event this information is protected by the Federal Confidentiality of Alcohol and Drug Abuse Patient Records regulations: The Federal rules restrict any use of the information to criminally investigate or prosecute any alcohol or drug abuse patient.[facility] HospitalIn the event this information is protected by the Federal Confidentiality of Alcohol and Drug Abuse Patient Records regulations: The Federal rules restrict any use of the information to criminally investigate or prosecute any alcohol or drug abuse patient.[facility] HospitalIn the event this information is protected by the Federal Confidentiality of Alcohol and Drug Abuse Patient Records regulations: The Federal rules restrict any use of the information to criminally investigate or prosecute any alcohol or drug abuse patient.[facility] HospitalIn the event this information is protected by the Federal Confidentiality of Alcohol and Drug Abuse Patient Records regulations: The Federal rules restrict any use of the information to criminally investigate or prosecute any alcohol or drug abuse patient.[facility] HospitalIn the event this information is protected by the Federal Confidentiality of Alcohol and Drug Abuse Patient Records regulations: The Federal rules restrict any use of the information to criminally investigate or prosecute any alcohol or drug abuse patient.[facility] HospitalIn the event this information is protected by the Federal Confidentiality of Alcohol and Drug Abuse Patient Records regulations: The Federal rules restrict any use of the information to criminally investigate or prosecute any alcohol or drug abuse patient.[facility] HospitalIn the event this information is protected by the Federal Confidentiality of Alcohol and Drug Abuse Patient Records regulations: The Federal rules restrict any use of the information to criminally investigate or prosecute any alcohol or drug abuse patient.[facility] HospitalIn the event this information is protected by the Federal Confidentiality of Alcohol and Drug Abuse Patient Records regulations: The Federal rules restrict any use of the information to criminally investigate or prosecute any alcohol or drug abuse patient.[facility] HospitalIn the event this information is protected by the Federal Confidentiality of Alcohol and Drug Abuse Patient Records regulations: The Federal rules restrict any use of the information to criminally investigate or prosecute any alcohol or drug abuse patient.[facility] HospitalIn the event this information is protected by the Federal Confidentiality of Alcohol and Drug Abuse Patient Records regulations: The Federal rules restrict any use of the information to criminally investigate or prosecute any alcohol or drug abuse patient.[facility] HospitalIn the event this information is protected by the Federal Confidentiality of Alcohol and Drug Abuse Patient Records regulations: The Federal rules restrict any use of the information to criminally investigate or prosecute any alcohol or drug abuse patient.[facility] HospitalIn the event this information is protected by the Federal Confidentiality of Alcohol and Drug Abuse Patient Records regulations: The Federal rules restrict any use of the information to criminally investigate or prosecute any alcohol or drug abuse patient.[facility] HospitalIn the event this information is protected by the Federal Confidentiality of Alcohol and Drug Abuse Patient Records regulations: The Federal rules restrict any use of the information to criminally investigate or prosecute any alcohol or drug abuse patient.[facility] HospitalIn the event this information is protected by the Federal Confidentiality of Alcohol and Drug Abuse Patient Records regulations: The Federal rules restrict any use of the information to criminally investigate or prosecute any alcohol or drug abuse patient.[facility] HospitalIn the event this information is protected by the Federal Confidentiality of Alcohol and Drug Abuse Patient Records regulations: The Federal rules restrict any use of the information to criminally investigate or prosecute any alcohol or drug abuse patient.[facility] HospitalIn the event this information is protected by the Federal Confidentiality of Alcohol and Drug Abuse Patient Records regulations: The Federal rules restrict any use of the information to criminally investigate or prosecute any alcohol or drug abuse patient.[facility] HospitalIn the event this information is protected by the Federal Confidentiality of Alcohol and Drug Abuse Patient Records regulations: The Federal rules restrict any use of the information to criminally investigate or prosecute any alcohol or drug abuse patient.[facility] HospitalIn the event this information is protected by the Federal Confidentiality of Alcohol and Drug Abuse Patient Records regulations: The Federal rules restrict any use of the information to criminally investigate or prosecute any alcohol or drug abuse patient.[facility] HospitalIn the event this information is protected by the Federal Confidentiality of Alcohol and Drug Abuse Patient Records regulations: The Federal rules restrict any use of the information to criminally investigate or prosecute any alcohol or drug abuse patient.[facility] HospitalIn the event this information is protected by the Federal Confidentiality of Alcohol and Drug Abuse Patient Records regulations: The Federal rules restrict any use of the information to criminally investigate or prosecute any alcohol or drug abuse patient.[facility] HospitalIn the event this information is protected by the Federal Confidentiality of Alcohol and Drug Abuse Patient Records regulations: The Federal rules restrict any use of the information to criminally investigate or prosecute any alcohol or drug abuse patient.[facility] HospitalIn the event this information is protected by the Federal Confidentiality of Alcohol and Drug Abuse Patient Records regulations: The Federal rules restrict any use of the information to criminally investigate or prosecute any alcohol or drug abuse patient.[facility] HospitalIn the event this information is protected by the Federal Confidentiality of Alcohol and Drug Abuse Patient Records regulations: The Federal rules restrict any use of the information to criminally investigate or prosecute any alcohol or drug abuse patient.[facility] HospitalIn the event this information is protected by the Federal Confidentiality of Alcohol and Drug Abuse Patient Records regulations: The Federal rules restrict any use of the information to criminally investigate or prosecute any alcohol or drug abuse patient.[facility] Reason for Visit (unrecogniz ed section and content) Reason Comments Radiology US Specialty Diagnoses / Procedures Referred By Contac Referred To Contact US IMAGING Diagnoses Malignant neoplasm metastatic to liver (HCC) 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, 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) Procedures US ABD RIGHT UPPER QUADRANT US ABDOMINAL REAL TIME W/IMAGE LIMITED Christiano Centeno DO [address] [place] [address] Us Imaging [facility] Referral ID Status Reason Start Date Expiration Date V isits Requested Visits Authorized [id number] Closed Auto-Generate d Referral 11/10/2023 12/09/2024 1 1 Reason Comments Blood Draw (CVAD) Specialty Diagnoses / Procedures Referred By Contac Referred To Contact Diagnoses 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, 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) Procedures DOCETAXEL INJECTION INJECTION, PERTUZUMAB, 1 MG PEGFILGRASTIM 6 MG INJ INJ ONTRUZANT 10 MG INJ., KANJINTI, 10 MG Christiano Centeno, DO [address] [facility] [place] [address] [facility] [address] [place] [address] Referral ID Status Reason Start Date Expiration Date Visits Requested Visits Authorized [id number] Authorized Patient Cleared - Admin/Chairm an/Director advise to proceed or did not respond 08/29/2020 11/25/2024 61 61 Reason Comments Chemotherapy Treatment Specialty Diagnoses / Procedures Referred By [facility] Referred To Contact Diagnoses Liver metastases (HCC) Malignant neoplasm of breast in female, estrogen receptor positive, unspecified laterality, unspecified site of breast (HCC) Procedures DOCETAXEL INJECTION INJECTION, PERTUZUMAB, 1 MG PEGFILGRASTIM 6 MG INJ INJ ONTRUZANT 10 MG Christiano Centeno, DO [address] [place] [address] Esdras [facility] [address] [place] [address] Referral ID Status Reason Start Date Expiration Date V isits Requested Visits Authorized [id number] Authorized 08/29/2020 09/18/2021 22 22 Reason Comments Established Patient Referral ID Status Reason Start Date Expiration Date V isits Requested Visits Authorized [id number] Authorized 08/29/2020 10/28/2021 22 22 Reason Comments Medical Question Reason Comments Radiology CT Specialty Diagnoses / Procedures Referred By [facility] Referred To Contact CT IMAGING Diagnoses Malignant neoplasm of breast in female, estrogen receptor positive, unspecified laterality, unspecified site of breast (HCC) Liver metastases (HCC) HER2-positive carcinoma of breast (HCC) Procedures CT CHEST W IVCON DIAGNOSTIC COMPUTED TOMOGRAPHY THORAX W/CONTRAST Christiano Centeno, DO [address] [place] [address] Ct Imaging Referral ID Status Reason Start Date Expiration Date V isits Requested Visits Authorized [id number] Closed Auto-Generate d Referral 09/25/2021 10/25/2022 1 1 Reason Comments Established Patient Reason Comments Results Hip x-ray Reason Comments Patient Update FYI Specialty Diagnoses / Procedures Referred By [facility] Referred To Contact Diagnoses Liver metastases (HCC) Malignant neoplasm of breast in female, estrogen receptor positive, unspecified laterality, unspecified site of breast (HCC) Procedures DOCETAXEL INJECTION INJECTION, PERTUZUMAB, 1 MG PEGFILGRASTIM 6 MG INJ INJ ONTRUZANT 10 MG Christiano Centeno, DO [address] [place] [address] Esdras [facility] [address] [place] [address] Referral ID Status Reason Start Date Expiration Date V isits Requested Visits Authorized [id number] Authorized 08/29/2020 03/04/2022 25 25 Reason Comments Results Low calcium Reason Comments Radiology MRI Reason Comments Radiology MRI Specialty Diagnoses / Procedures [facility] To [facility] IMAGING Diagnoses Liver metastases (HCC) Procedures MRI LIVER WO/W IVCON MRI ABDOMEN W/O & W/CONTRAST MATERIAL Jalyn Ramos MD [address] [place] [address] Mr Imaging Referral ID Status Reason Start Date Expiration Date V isits Requested Visits Authorized [id number] Closed Auto-Generate d Referral 11/26/2021 12/25/2022 1 1 Reason Comments Established Patient Reason Comments Follow Up Reason Comments Results 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 Reason Onset Date Comments Refill Request 01/20/2022 Reason Comments Consult FACE SHEET Reason Comments Established Patient Reason Comments Liver Cancer Reason Comments Radiology NM Specialty Diagnoses / Procedures Referred By [facility] Referred To Contact MR IMAGING Diagnoses HER2-positive carcinoma of breast (HCC) Liver metastases (HCC) Procedures MRI BRAIN WO/W IVCON MRI BRAIN BRAIN STEM W/O W/CONTRAST MATERIAL Christiano Centeno, DO [address] [facility] [place] [address] Mr Imaging Referral ID Status Reason Start Date Expiration Date V isits Requested Visits Authorized [id number] Closed Auto-Generate d Referral 02/18/2022 03/20/2023 1 1 Referral ID Status Reason Start Date Expiration Date V isits Requested Visits Authorized [id number] Authorized 08/29/2020 06/04/2022 29 29 Reason Comments Results PET scan Reason Onset Date Comments Refill Request 05/21/2022 Reason Comments [place] Referral ID Status Reason Start Date Expiration Date V isits Requested Visits Authorized [id number] Authorized 08/29/2020 09/07/2022 33 33 Reason Onset Date Comments Refill Request 07/16/2022 Referral ID Status Reason Start Date Expiration Date V isits Requested Visits Authorized [id number] Authorized 08/29/2020 11/12/2022 39 39 Specialty Diagnoses / Procedures Referred By Contac t Referred To Contact Diagnoses Liver metastases Malignant neoplasm of breast in female, estrogen receptor positive, unspecified laterality, unspecified site of breast (HCC) Procedures DOCETAXEL INJECTION INJECTION, PERTUZUMAB, 1 MG PEGFILGRASTIM 6 MG INJ INJ ONTRUZANT 10 MG Christiano Centeno, DO [address] [place] [address] [facility] [address] [place] [address] Reason Comments Appointment Reason Comments CVAD Access Referral ID Status Reason Start Date Expiration Date V isits Requested Visits Authorized [id number] Authorized 08/29/2020 01/15/2023 39 39 Reason Comments Referral Information Referral ID Status Reason Start Date Expiration Date V isits Requested Visits Authorized [id number] Authorized 08/29/2020 01/13/2024 57 57 Specialty Diagnoses / Procedures [facility] Ref[facility] To Contact Diagnoses Liver metastases Malignant neoplasm of breast in female, estrogen receptor positive, unspecified laterality, unspecified site of breast (HCC) Procedures DOCETAXEL INJECTION INJECTION, PERTUZUMAB, 1 MG PEGFILGRASTIM 6 MG INJ INJ ONTRUZANT 10 MG Christiano Centeno, DO [address] [place] [address] [facility] [address] [place] [address] Reason Comments Nm Pet Request Specialty Diagnoses / Procedures [facility] Referred To Contact MR IMAGING Diagnoses HER2-positive carcinoma of breast (HCC) Liver metastases Procedures MRI ABDOMEN WO/W IVCON MRI ABDOMEN W/O & W/CONTRAST MATERIAL Christiano Centeno, DO [address] [place] [address] [place] [address] Referral ID Status Reason Start Date Expiration Date V isits Requested Visits Authorized [id number] Closed Auto-Generate d Referral 05/05/2022 06/04/2023 [address] Specialty Diagnoses / Procedures Referred By Contac t Referred To Contact CT IMAGING Diagnoses Breast cancer, stage 4, left (HCC) 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) Procedures CT CHEST WO IVCON DIAGNOSTIC COMPUTED TOMOGRAPHY THORAX W/O CNTRST Christiano Centeno, DO [address] [place] [address] Ct Imaging [facility] Referral ID Status Reason Start Date Expiration Date V isits Requested Visits Authorized [id number] Closed Auto-Generate d Referral 09/08/2022 10/08/2023 1 1 Specialty Diagnoses / Procedures Referred By Contac t Referred To Contact MR IMAGING Diagnoses Breast cancer, stage 4, left (HCC) 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 Matos Referral ID Status Reason Start Date Expiration Date V isits Requested Visits Authorized [id number] Authorized 08/29/2020 10/28/2023 53 53 Reason Onset Date Comments Refill Request 04/30/2023 Reason Onset Date Comments Refill Request 05/02/2023 Reason Comments New Patient Left breast local re currence Specialty Diagnoses / Procedures Referred By Contac t Referred To Contact Breast Diseases Diagnoses Local recurrence of cancer of left breast (HCC) HER2-positive carcinoma of breast (HCC) Procedures CONSULT TO BREAST CENTER OFFICE/OUTPATIENT NEW HIGH MDM 60-74 MINUTES Christiano Centeno, DO [address] [facility] [place] [address] Referral ID Status Reason Start Date Expiration Date Visits Requested Visits Authorized [id number] Pending Review PCP Requested Referral 3 04/25/2024 1 1 Specialty Diagnoses / Procedures Referred By [facility] Referred To Contact MR IMAGING Diagnoses 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) Local recurrence of cancer of left breast (HCC) Procedures MRI ABDOMEN WO/W IVCON MRI ABDOMEN W/O & W/CONTRAST MATERIAL Christiano Centeno, DO [address] [place] [address] [place] [address] Referral ID Status Reason Start Date Expiration Date V isits Requested Visits Authorized [id number] Closed Auto-Generate d Referral 04/27/2023 05/26/2024 1 1 Reason Comments Appointment Patient Question Specialty Diagnoses / Procedures Referred By [facility] Referred To Contact Diagnoses Liver metastases Malignant neoplasm of breast in female, estrogen receptor positive, unspecified laterality, unspecified site of breast (HCC) (HCC) Procedures DOCETAXEL INJECTION INJECTION, PERTUZUMAB, 1 MG PEGFILGRASTIM 6 MG INJ INJ ONTRUZANT 10 MG Christiano Centeno DO [address] [place] [address] [facility] [address] [place] [id number] Reason Comments Patient Question Reason Comments Nurse Visit Drain removal Reason Comments AVS 07/20/23 Specialty Diagnoses / Procedures Referred By [facility] Referred To Contact Diagnoses Liver metastases Malignant neoplasm of breast in female, estrogen receptor positive, unspecified laterality, unspecified site of breast (HCC) (HCC) Procedures DOCETAXEL INJECTION INJECTION, PERTUZUMAB, 1 MG PEGFILGRASTIM 6 MG INJ INJ ONTRUZANT 10 MG INJ., KANJINTI, 10 MG Christiano Centeno DO [address] [place] [address] [facility] [address] [place] [address] Referral ID Status Reason Start Date Expiration Date Visits Requested Visits Authorized [id number] Pending Review Patient Cleared - Admin/Chair man/Directo r advise to proceed or did not respond 08/29/2020 10/28/2023 53 53 Reason Comments Established Patient Seroma check Specialty Diagnoses / Procedures [facility] Referred To Contact Diagnoses Liver metastases Malignant neoplasm of breast in female, estrogen receptor positive, unspecified laterality, unspecified site of breast (HCC) Procedures DOCETAXEL INJECTION INJECTION, PERTUZUMAB, 1 MG PEGFILGRASTIM 6 MG INJ INJ ONTRUZANT 10 MG INJ., KANJINTI, 10 MG Christiano Centeno, DO [address] [place] [address] Esdras [facility] [address] [place] [address] Referral ID Status Reason Start Date Expiration Date Visits Requested Visits Authorized [id number] Authorized Patient Cleared - Admin/Chairm an/Director advise to proceed or did not respond 08/29/2020 11/25/2023 53 53 Reason Comments Slat Grader - Other Questions Reason Comments Established Patient Seroma drainage Specialty Diagnoses / Procedures Referred By [facility] Referred To Contact MR IMAGING Diagnoses Breast cancer, stage 4, left (HCC) 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) Procedures MRI ABDOMEN WO/W IVCON MRI ABDOMEN W/O & W/CONTRAST MATERIAL Christiano Centeno, DO [address] [place] [address] [place] [address] Referral ID Status Reason Start Date Expiration Date V isits Requested Visits Authorized [id number] Closed Auto-Generate d Referral 07/20/2023 08/18/2024 1 1 Reason Comments Radiology NM Reason Onset Date Comments Refill Request 08/24/2023 Reason Comments Established Patient Seroma Reason Comments Social Work Services Reason Comments Established Patient Seroma check Specialty Diagnoses / Procedures Referred By [facility] Referred To Contact MR IMAGING Diagnoses 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) Procedures MRI BRAIN WO/W IVCON MRI BRAIN BRAIN STEM W/O W/CONTRAST MATERIAL Christiano Centeno, DO [address] [facility] [place] [address] [place] [address] Referral ID Status Reason Start Date Expiration Date V isits Requested Visits Authorized [id number] Closed Auto-Generate d Referral 10/11/2023 11/09/2024 1 1 Reason Comments Results Reason Comments Patient Question Pre op paperwork Reason Comments Post Op Reason Comments Consult Referral ID Status Reason Start Date Expiration Date Visits Requested Visits Authorized [id number] Authorized Patient Cleared - Admin/Chairm an/Director advise to proceed or did not respond [facility] Obtained 08/29/2020 11/22/2024 61 61 Reason Comments Patient Update Specialty Diagnoses / Procedures Referred By Ellen t Referred To Contact MR IMAGING Diagnoses 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, 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) Local recurrence of cancer of left breast (HCC) Procedures MRI ABDOMEN WO/W IVCON MRI ABDOMEN W/O & W/CONTRAST MATERIAL Domenic Kelley APRN.[employer] REFINER OPERATOR [address] [place] [phone] Mr Imaging [facility] Referral ID Status Reason Start Date Expiration Date V isits Requested Visits Authorized [id number] Closed Auto-Generate d Referral 11/23/2023 12/22/2024 1 1 Referral ID Status Reason Start Date Expiration Date Visits Requested Visits Authorized [id number] Authorized [facility] Obtained 08/29/2020 11/22/2024 61 61 Reason Comments Consult EGD consultation, h/ o short-segment Posadas's. Reason Comments Radiology Mammogram Specialty Diagnoses / Procedures Referred By [facility] t Referred To Contact BR IMAGING Diagnoses HER2-positive carcinoma of breast (HCC) Procedures [facility] DIAGNOSTIC BILAT DIAGNOSTIC MAMMOGRAPHY COMPUTER[place] [address] [place] [address] 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) 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, right (HCC) HER2-positive carcinoma of breast (HCC) Procedures MRI ABDOMEN WO/W IVCON MRI ABDOMEN W/O & W/CONTRAST MATERIAL Christiano Centeno, DO [address] [place] [address] [place] [address] Referral ID Status Reason Start Date Expiration Date V isits Requested Visits Authorized [id number] Closed Auto-Generate d Referral 02/28/2024 03/29/2025 1 1 Referral ID Status Reason Start Date Expiration Date Visits Requested Visits Authorized [id number] Authorized Patient Cleared INN/[facility] Payor Auth Obtained 08/29/2020 01/14/2025 73 73 Reason Comments Research Clinical Trial Pre-S creening Specialty Diagnoses / Procedures Referred By [facility] Referred To Contact MR IMAGING Diagnoses Malignant neoplasm of female breast, unspecified estrogen receptor status, unspecified laterality, unspecified site of breast (HCC) 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) Procedures MRI ABDOMEN WO/W IVCON MRI ABDOMEN W/O & W/CONTRAST MATERIAL Christiano Centeno, DO [address] [facility] [place] [address] [place] [address] Referral ID Status Reason Start Date Expiration Date V isits Requested Visits Authorized [id number] Closed Auto-Generate d Referral 06/21/2024 07/21/2025 1 1 Specialty Diagnoses / Procedures Referred By [facility] Referred To Contact Radiology / IMAGING Diagnoses Routine Diagnosis: Malignant neoplasm of female breast, unspecified estrogen receptor status, unspecified laterality, unspecified site of breast (HCC) [C50.919] 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) [C78.7] Procedures INJECTION PET CT Christiano Centeno, DO [address] [place] [address] Radio [facility] [address] [place] [address] Referral ID Status Reason Start Date Expiration Date Visits Re quested Visits Authorized [id number] Closed 07/11/2024 10/09/2024 1 1 Specialty Diagnoses / Procedures Referred By Contac t Referred To Contact Diagnoses 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, 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) Procedures DOCETAXEL INJECTION INJECTION, PERTUZUMAB, 1 MG PEGFILGRASTIM 6 MG INJ INJ ONTRUZANT 10 MG INJ., KANJINTI, 10 MG Christiano Centeno DO [address] [place] [address] Phone: tel: fax: Hematology/Oncology [address] [place] [address] Phone: tel: fax: Referral ID Status Reason Start Date Expiration Date Visits Requested Visits Authorized [id number] Authorized Patient Cleared INN/[facility] Payor Auth Obtained 08/29/2020 01/14/2025 73 73 Reason Comments Electronic Communication Reason Comments Slat Grader - Other ED Visit Reason Comments CoPat Management Referral ID Status Reason Start Date Expiration Date Visits Requested Visits Authorized [id number] Authorized Patient Cleared INN/[facility] Payor Auth Obtained Patient Cleared - Admin/Chairm an/Director advise to proceed or did not respond 08/29/2020 01/17/2025 72 72 Reason Comments Social Work Services Patient Question Reason Comments Vertebral osteomyelitis (HCC) Referral ID Status Reason Start Date Expiration Date Visits Requested Visits Authorized [id number] Authorized Patient Cleared INN/[facility] Payor Auth Obtained Patient Cleared - Admin/Chairm an/Director advise to proceed or did not respond 08/29/2020 01/18/2026 90 90 Care Teams (unrecognized sec tion and content) Team Status: Active Member Role Status Dates Dr. Eveline Argueta DO Primary Care Provider Active Team Status: Inactive Member Role Status Dates Dr. Tami Chang MD Primary Care Provider Active Start: June 23, 2024 End: June 23, 2024 Dr. Tami Chang MD Referring Provider Active Start: June 23, 2024 End: June 23, 2024 ZARINA Rosas Attending Provider Active Start: June 23, 2024 End: June 23, 2024 Team Status: Inactive Member Role Status Dates Dr. Tami Chang MD Primary Care Provider Active Start: August 25, 2024 End: August 29, 2024 Juan Nieves MD Emergency Provider Active Star t: August 25, 2024 End: August 29, 2024 Dr. Buzz Alford , DO Admit Provider Active Start: August 25, 2024 End: August 29, 2024 Dr. Buzz Alford , DO Other Provider Active Start: August 25, 2024 End: August 29, 2024 Dr. Wendy Calle MD Other Provider Active Star t: August 25, 2024 End: August 29, 2024 Dr. Jin Rosales MD Other Provider Active Star t: August 25, 2024 End: August 29, 2024 Dr. Carolyn Hatch , DO Attending Provider Active S tart: August 25, 2024 End: August 29, 2024 Dr. Dominik Carlos , DO Other Provider Active S tart: August 25, 2024 End: August 29, 2024 Team Status: Active Member Role Status Dates Dr. Tami Chang MD Primary Care Provider Active Start: August 26, 2024 Juan Nieves MD Emergency Provider Active Star t: August 26, 2024 Dr. Buzz Alford , DO Admit Provider Active Start: August 26, 2024 Dr. Buzz Alford , DO Other Provider Active Start: August 26, 2024 Dr. Dominik Carlos , DO Attending Provider Active Start: August 26, 2024 Dr. Dominik Carlos , DO Other Provider Active S tart: August 26, 2024 Team Status: Active Member Role Status Dates Dr. Tami Chang MD Primary Care Provider Active Start: August 27, 2024 Juan Nieves MD Emergency Provider Active Star t: August 27, 2024 Dr. Buzz Alford , DO Admit Provider Active Start: August 27, 2024 Dr. Buzz Alford , DO Other Provider Active Start: August 27, 2024 Dr. Dominik Carlos , DO Other Provider Active S tart: August 27, 2024 Dr. Wendy Calle MD Other Provider Active Star t: August 27, 2024 Dr. Jin Rosales MD Attending Provider Active Start: August 27, 2024 Dr. Carolyn Hatch , DO Referring Provider Active S tart: August 27, 2024 Team Status: Active Member Role Status Dates Dr. Tami Chang MD Primary Care Provider Active Start: August 27, 2024 Juan Nieves MD Emergency Provider Active Star t: August 27, 2024 Dr. Buzz Alford , DO Admit Provider Active Start: August 27, 2024 Dr. Buzz Alford , DO Other Provider Active Start: August 27, 2024 Dr. Dominik Carlos , Attending Provider Active Start: August 27, 2024 Dr. Dominik Carlos , DO Other Provider Active S tart: August 27, 2024 Dr. Wendy Calle MD Other Provider Active Star t: August 27, 2024 Dr. Jin Rosales MD Other Provider Active Star t: August 27, 2024 Team Status: Active Member Role Status Dates Dr. Tami Chang MD Primary Care Provider Active Start: August 28, 2024 Juan Nieves MD Emergency Provider Active Star t: August 28, 2024 Dr. Buzz Alford , Admit Provider Active Start: August 28, 2024 Dr. Buzz Alford , DO Other Provider Active Start: August 28, 2024 Dr. Wendy Calle MD Other Provider Active Star t: August 28, 2024 Dr. Jin Rosales MD Attending Provider Active Start: August 28, 2024 Dr. Jin Rosales MD Other Provider Active Star t: August 28, 2024 Dr. Carolyn Hatch , DO Other Provider Active Start : August 28, 2024 Dr. Dominik Carlos , DO Other Provider Active S tart: August 28, 2024 Team Status: Active Member Role Status Dates Dr. Tami Chang MD Primary Care Provider Active Start: August 28, 2024 Juan Nieves MD Emergency Provider Active Star t: August 28, 2024 Dr. Buzz Alford , Admit Provider Active Start: August 28, 2024 Dr. Buzz Alford , DO Other Provider Active Start: August 28, 2024 Dr. Wendy Calle MD Other Provider Active Star t: August 28, 2024 Dr. Jin Rosales MD Other Provider Active Star t: August 28, 2024 Dr. Carolyn Hatch , DO Attending Provider Active S tart: August 28, 2024 Dr. Carolyn Hatch , DO Other Provider Active Start : August 28, 2024 Dr. Dominik Carlos , DO Other Provider Active S tart: August 28, 2024 Team Status: Active Member Role Status Dates Dr. Tami Chang MD Primary Care Provider Active Start: August 29, 2024 Juan Nieves MD Emergency Provider Active Star t: August 29, 2024 Dr. Buzz Alford , DO Admit Provider Active Start: August 29, 2024 Dr. Buzz Alford , DO Other Provider Active Start: August 29, 2024 Dr. Wendy Calle MD Other Provider Active Star t: August 29, 2024 Dr. Jin Rosales MD Other Provider Active Star t: August 29, 2024 Dr. Caroyln Hatch DO Attending Provider Active S tart: August 29, 2024 Dr. Carolyn Hatch , Other Provider Active Start : August 29, 2024 Dr. Dominik Carlos DO Other Provider Active S tart: August 29, 2024 Team Status: Inactive Member Role Status Dates Dr. Tami Chang MD Primary Care Provider Active Start: September 11, 2024 End: September 11, 2024 Dr. Tami Chang MD Referring Provider Active Start: September 11, 2024 End: September 11, 2024 Dr. Jin Rosales MD Attending Provider Active Start: September 11, 2024 End: September 11, 2024 Team Status: Inactive Member Role Status Dates Dr. aTmi Chang MD Primary Care Provider Active Start: September 11, 2024 End: September 11, 2024 Dr. Max Kang MD Attending Provider Active S tart: September 11, 2024 End: September 11, 2024 Team Status: Active Member Role Status Dates Dr. Tami Chang MD Primary Care Provider Active Start: September 14, 2024 Dr. Jin Rosales MD Attending Provider Active Start: September 14, 2024 Team Status: Inactive Member Role Status Dates Dr. Tami Chang MD Primary Care Provider Active Start: September 24, 2024 End: September 24, 2024 Dr. Tami Chang MD Attending Provider Active Start: September 24, 2024 End: September 24, 2024 Dr. Tami Chang MD Referring Provider Active Start: September 24, 2024 End: September 24, 2024 Team Status: Inactive Member Role Status Dates Dr. Tami Chang MD Primary Care Provider Active Start: October 02, 2024 End: October 02, 2024 Dr. Jin Rosales MD Attending Provider Active Start: October 02, 2024 End: October 02, 2024 Dr. Jin Rosales MD Referring Provider Active Start: October 02, 2024 End: October 02, 2024 Team Status: Active Member Role Status Dates Dr. Tami Chang MD Primary Care Provider Active Start: October 02, 2024 Dr. Jin Rosales MD Attending Provider Active Start: October 02, 2024 Team Status: Inactive Member Role Status Dates Dr. Guerrero Vasquez III, MD Attending Provider Active Start: October 19, 2024 End: October 19, 2024 Dr. Guerrero Vasquez III, MD Referring Provider Active Start: October 19, 2024 End: October 19, 2024 Dr. Eveline Argueta DO Primary Care Provider Active Start: October 19, 2024 End: October 19, 2024 Fork Lift Technician Relationship Specialty Start Date End Date Tami Chang [address] [place] [address] PCP - General Family Practice 07/24/20 Ramila Bolaños RN Specialty Slat Grader Oncology 10/01/20 Ursula Whiting LISW Photographic Platemaker 10/02/20 Fork Lift Technician Relationship Specialty Start Date End Date Tami Chang [address] [place] [address] PCP - General Family Practice 07/24/20 Ramila Bolaños RN Specialty Slat Grader Oncology 10/01/20 Ursula Whiting LISW Photographic Platemaker 10/02/20 Fork Lift Technician Relationship Specialty Start Date End Date Tami Chang [address] [place] [address] PCP - General Family Practice 07/24/20 Ramila Bolaños RN Specialty Slat Grader Oncology 10/01/20 Ursula Whiting LISW Photographic Platemaker 10/02/20 Fork Lift Technician Relationship Specialty Start Date End Date Tami Chang [address] [place] [address] PCP - General Family Practice 07/24/20 Ramila Bolaños RN Specialty Slat Grader Oncology 10/01/20 Ursula Whiting LISW Photographic Platemaker 10/02/20 Fork Lift Technician Relationship Specialty Start Date End Date Tami Chang [address] [place] [address] PCP - General Family Practice 07/24/20 Ramila Bolaños RN Specialty Slat Grader Oncology 10/01/20 Ursula Whiting LISW Photographic Platemaker 10/02/20 Fork Lift Technician Relationship Specialty Start Date End Date Tami Chang [address] [place] [address] PCP - General Family Practice 07/24/20 Ramila Bolaños RN Specialty Slat Grader Oncology 10/01/20 Ursula Whiting LISW Photographic Platemaker 10/02/20 Fork Lift Technician Relationship Specialty Start Date End Date Tami Chang [address] [place] [address] PCP - General Family Practice 07/24/20 Ramila Bolaños RN Specialty Slat Grader Oncology 10/01/20 Ursula Whiting LISW Photographic Platemaker 10/02/20 Fork Lift Technician Relationship Specialty Start Date End Date Tami Chang [address] [place] [address] PCP - General Family Practice 07/24/20 Ramila Bolaños RN Specialty Slat Grader Oncology 10/01/20 Ursula Whiting LISW Photographic Platemaker 10/02/20 Fork Lift Technician Relationship Specialty Start Date End Date Tami Chang [address] [place] [address] PCP - General Family Practice 07/24/20 Doup, Ramila, RN Specialty Slat Grader Oncology 10/01/20 Ursula Whiting LISW Photographic Platemaker 10/02/20 Fork Lift Technician Relationship Specialty Start Date End Date Tami Chang [address] [place] [address] PCP - General Family Practice 07/24/20 Ramila Bolaños RN Specialty Slat Grader Oncology 10/01/20 Ursula Whiting LISW Photographic Platemaker 10/02/20 Fork Lift Technician Relationship Specialty Start Date End Date Tami Chang [address] [place] [address] PCP - General Family Practice 07/24/20 Ramila Bolaños RN Specialty Slat Grader Oncology 10/01/20 Ursula Whiting LISW Photographic Platemaker 10/02/20 Fork Lift Technician Relationship Specialty Start Date End Date Tami Chang [address] [place] [address] PCP - General Family Practice 07/24/20 Ramila Bolaños RN Specialty Slat Grader Oncology 10/01/20 Ursula Whiting LISW Photographic Platemaker 10/02/20 Fork Lift Technician Relationship Specialty Start Date End Date Tami Chang [address] [place] [address] PCP - General Family Practice 07/24/20 Ramila Bolaños RN Specialty Slat Grader Oncology 10/01/20 Ursula Whiting LISW Photographic Platemaker 10/02/20 Fork Lift Technician Relationship Specialty Start Date End Date Tami Chang [address] [place] [address] PCP - General Family Practice 07/24/20 Ramila Bolaños RN Specialty Slat Grader Oncology 10/01/20 Ursula Whiting LISW Photographic Platemaker 10/02/20 Fork Lift Technician Relationship Specialty Start Date End Date Tami Chang [address] [place] [address] PCP - General Family Practice 07/24/20 Ramila Bolaños RN Specialty Slat Grader Oncology 10/01/20 Ursula Whiting LISW Photographic Platemaker 10/02/20 Fork Lift Technician Relationship Specialty Start Date End Date Tami Chang [address] [place] [address] PCP - General Family Practice 07/24/20 Ramila Bolaños RN Specialty Slat Grader Oncology 10/01/20 Ursula Whiting LISW Photographic Platemaker 10/02/20 Fork Lift Technician Relationship Specialty Start Date End Date Tami Chang [address] [place] [address] PCP - General Family Practice 07/24/20 Ramila Bolaños RN Specialty Slat Grader Oncology 10/01/20 Ursula Whiting RN Photographic Platemaker 10/02/20 Fork Lift Technician Relationship Specialty Start Date End Date Tami Chang [address] [place] [address] PCP - General Family Practice 07/24/20 Ramila Bolaños RN Specialty Slat Grader Oncology 10/01/20 Ursula Whiting RN Photographic Platemaker 10/02/20 Fork Lift Technician Relationship Specialty Start Date End Date Tami Chang [address] [place] [address] PCP - General Family Practice 07/24/20 Ramila Bolaños RN Specialty Slat Grader Oncology 10/01/20 Ursula Whiting RN Photographic Platemaker 10/02/20 Fork Lift Technician Relationship Specialty Start Date End Date Tami Chang [address] [place] [address] PCP - General Family Practice 07/24/20 Ramila Bolaños RN Specialty Slat Grader Oncology 10/01/20 Henok, Ursula, RN Photographic Platemaker 10/02/20 Fork Lift Technician Relationship Specialty Start Date End Date Tami Chang [address] [place] [address] PCP - General Family Practice 07/24/20 Ramila Bolaños RN Specialty Slat Grader Oncology 10/01/20 Ursula Whiting RN Photographic Platemaker 10/02/20 Fork Lift Technician Relationship Specialty Start Date End Date Tami Chang [address] [place] [address] PCP - General Family Practice 07/24/20 Ramila Bolaños RN Specialty Slat Grader Oncology 10/01/20 Ursula Whiting RN Photographic Platemaker 10/02/20 Fork Lift Technician Relationship Specialty Start Date End Date Tami Chang [address] [place] [address] PCP - General Family Practice 07/24/20 Ramila Bolaños RN Specialty Slat Grader Oncology 10/01/20 Ursula Whiting RN Photographic Platemaker 10/02/20 Fork Lift Technician Relationship Specialty Start Date End Date Tami Chang [address] [place] [address] PCP - General Family Practice 07/24/20 Ramila Bolaños RN Specialty Slat Grader Oncology 10/01/20 Ursula Whiting RN Photographic Platemaker 10/02/20 Fork Lift Technician Relationship Specialty Start Date End Date Tami Chang [address] [place] [address] PCP - General Family Practice 07/24/20 Ramila Bolaños RN Specialty Slat Grader Oncology 10/01/20 Ursula Whiting RN Photographic Platemaker 10/02/20 Fork Lift Technician Relationship Specialty Start Date End Date Tami Chang [address] [place] [address] PCP - General Family Practice 07/24/20 Ramila Bolaños RN Specialty Slat Grader Oncology 10/01/20 Ursula Whiting, CRISTINA Photographic Platemaker 10/02/20 Fork Lift Technician Relationship Specialty Start Date End Date Tami Chang [address] [place] [address] PCP - General Family Practice 07/24/20 Ramila Bolaños RN Specialty Slat Grader Oncology 10/01/20 Ursula Whiting RN Photographic Platemaker 10/02/20 Fork Lift Technician Relationship Specialty Start Date End Date Tami Chang [address] [place] [address] PCP - General Family Practice 07/24/20 Ramila Bolaños RN Specialty Slat Grader Oncology 10/01/20 Ursula Whiting RN Photographic Platemaker 10/02/20 Fork Lift Technician Relationship Specialty Start Date End Date Tami Chang [address] [place] [address] PCP - General Family Practice 07/24/20 Ramila Bolaños RN Specialty Slat Grader Oncology 10/01/20 Ursula Whiting RN Photographic Platemaker 10/02/20 Fork Lift Technician Relationship Specialty Start Date End Date Tami Chang [address] [place] [address] PCP - General Family Medicine 07/24/20 Ramila Bolaños RN Specialty Slat Grader Oncology 10/01/20 Ursula Whiting RN Photographic Platemaker 10/02/20 Fork Lift Technician Relationship Specialty Start Date End Date Tami Chang [address] [place] [address] PCP - General Family Medicine 07/24/20 Ramila Bolaños RN Specialty Slat Grader Oncology 10/01/20 Ursula Whiting RN Photographic Platemaker 10/02/20 Fork Lift Technician Relationship Specialty Start Date End Date Tami Chang [address] [place] [address] PCP - General Family Medicine 07/24/20 Ramila Bolaños RN Specialty Slat Grader Oncology 10/01/20 Ursula Whiting RN Photographic Platemaker 10/02/20 Fork Lift Technician Relationship Specialty Start Date End Date Tami Chang [address] [place] [address] PCP - General Family Medicine 07/24/20 Ramila Bolaños RN Specialty Slat Grader Oncology 10/01/20 Ursula Whiting RN Photographic Platemaker 10/02/20 Fork Lift Technician Relationship Specialty Start Date End Date Tami Chang [address] [place] [address] PCP - General Family Medicine 07/24/20 Ramila Bolaños RN Specialty Slat Grader Oncology 10/01/20 Ursula Whiting RN Photographic Platemaker 10/02/20 Fork Lift Technician Relationship Specialty Start Date End Date Tami Chang [address] [place] [address] PCP - General Family Medicine 07/24/20 Ramila Bolaños RN Specialty Slat Grader Oncology 10/01/20 Ursula Whiting RN Photographic Platemaker 10/02/20 Fork Lift Technician Relationship Specialty Start Date End Date Tami Chang [address] [place] [address] PCP - General Family Medicine 07/24/20 Ramila Bolaños RN Specialty Slat Grader Oncology 10/01/20 Ursula Whiting RN Photographic Platemaker 10/02/20 Fork Lift Technician Relationship Specialty Start Date End Date Tami Chang [address] [place] [address] PCP - General Family Medicine 07/24/20 Doup, Ramila, RN Specialty Slat Grader Oncology 10/01/20 Ursula Whiting RN Photographic Platemaker 10/02/20 Fork Lift Technician Relationship Specialty Start Date End Date Tami Chang [address] [place] [address] PCP - General Family Medicine 07/24/20 Ramila Bolaños RN Specialty Slat Grader Oncology 10/01/20 Ursula Whiting RN Photographic Platemaker 10/02/20 Team Status: Active Member Role Status Dates Dr. Tami Chang MD Family Provider Active Dr. Tami Chang MD Primary Care Provider Active Team Status: Inactive Member Role Status Dates Dr. Tami Chang MD Primary Care Provider, Referrin g Provider Active Khoi Harp MOTORBOAT MECHANIC INBOARD, MOTORBOAT MECHANIC INBOARD-C Attending Provider Active Team Status: Inactive Member Role Status Dates Dr. Tami Chang MD Primary Care Provider, Referrin g Provider Active Dr. Pepper Christianson MD Attending Provider Active Team Status: Inactive Member Role Status Dates Dr. Tami Chang MD Primary Care Provider, Attendin g Provider Active Fork Lift Technician Relationship Specialty Start Date End Date Tami Chang [address] [place] [address] PCP - General Family Medicine 07/24/20 Ramila Bolaños RN Specialty Slat Grader Oncology 10/01/20 Ursula Whiting RN Photographic Platemaker 10/02/20 Fork Lift Technician Relationship Specialty Start Date End Date Tami Chang [address] [place] [address] PCP - General Family Medicine 07/24/20 Ramila Bolaños RN Specialty Slat Grader Oncology 10/01/20 Ursula Whiting RN Photographic Platemaker 10/02/20 Fork Lift Technician Relationship Specialty Start Date End Date Tami Chang [address] [place] [address] PCP - General Family Medicine 07/24/20 Ramila Bolaños RN Specialty Slat Grader Oncology 10/01/20 Henok, Ursula, RN Photographic Platemaker 10/02/20 Fork Lift Technician Relationship Specialty Start Date End Date Tami Chang [address] [place] [address] PCP - General Family Medicine 07/24/20 Ramila Bolaños RN Specialty Slat Grader Oncology 10/01/20 Ursula Whiting RN Photographic Platemaker 10/02/20 Fork Lift Technician Relationship Specialty Start Date End Date Tami Chang [address] [place] [address] PCP - General Family Medicine 07/24/20 Ramila Bolaños RN Specialty Slat Grader Oncology 10/01/20 Ursula Whiting RN Photographic Platemaker 10/02/20 Fork Lift Technician Relationship Specialty Start Date End Date Tami Chang [address] [place] [address] PCP - General Family Medicine 07/24/20 Ramila Bolaños RN Specialty Slat Grader Oncology 10/01/20 Ursula Whiting RN Photographic Platemaker 10/02/20 Fork Lift Technician Relationship Specialty Start Date End Date Tami Chang [address] [place] [address] PCP - General Family Medicine 07/24/20 Ramila Bolaños RN Specialty Slat Grader Oncology 10/01/20 Ursula Whiting RN Photographic Platemaker 10/02/20 Fork Lift Technician Relationship Specialty Start Date End Date Tami Chang [address] [place] [address] PCP - General Family Medicine 07/24/20 Ramila Bolaños RN Specialty Slat Grader Oncology 10/01/20 Ursula Whiting RN Photographic Platemaker 10/02/20 Fork Lift Technician Relationship Specialty Start Date End Date Tami Chang [address] [place] [address] PCP - General Family Medicine 07/24/20 Ramila Bolaños RN Specialty Slat Grader Oncology 10/01/20 Ursula Whiting RN Photographic Platemaker 10/02/20 Fork Lift Technician Relationship Specialty Start Date End Date Tami Chang [address] [place] [address] PCP - General Family Medicine 07/24/20 Ramila Bolaños RN Specialty Slat Grader Oncology 10/01/20 Ursula Whiting RN Photographic Platemaker 10/02/20 Fork Lift Technician Relationship Specialty Start Date End Date Tami Chang [address] [place] [address] PCP - General Family Medicine 07/24/20 Ramila Bolaños RN Specialty Slat Grader Oncology 10/01/20 Ursula Whiting RN Photographic Platemaker 10/02/20 Fork Lift Technician Relationship Specialty Start Date End Date Tami Chang [address] [place] [address] PCP - General Family Medicine 07/24/20 Ramila Bolaños RN Specialty Slat Grader Oncology 10/01/20 Ursula Whiting RN Photographic Platemaker 10/02/20 Team Status: Inactive Member Role Status Dates Dr. Tami Chang MD Primary Care Provider Active Dr. Stefano Chanel MD Emergency Provider Active Fork Lift Technician Relationship Specialty Start Date End Date Tami Chang [address] [place] [address] PCP - General Family Medicine 07/24/20 Ramila Bolaños RN Specialty Slat Grader Oncology 10/01/20 Ursula Whiting RN Photographic Platemaker 10/02/20 Fork Lift Technician Relationship Specialty Start Date End Date Tami Chang [address] [place] [address] PCP - General Family Medicine 07/24/20 Ramila Bolaños RN Specialty Slat Grader Oncology 10/01/20 Ursula Whiting RN Photographic Platemaker 10/02/20 Fork Lift Technician Relationship Specialty Start Date End Date Tami Chang [address] [place] [address] PCP - General Family Medicine 07/24/20 Ramila Bolaños RN Specialty Slat Grader Oncology 10/01/20 Ursula Whiting RN Photographic Platemaker 10/02/20 Fork Lift Technician Relationship Specialty Start Date End Date Tami Chang [address] [place] [address] PCP - General Family Medicine 07/24/20 Ramila Bolaños RN Specialty Slat Grader Oncology 10/01/20 Ursula Whiting RN Photographic Platemaker 10/02/20 Fork Lift Technician Relationship Specialty Start Date End Date Tami Chang [address] [place] [address] PCP - General Family Medicine 07/24/20 Ramila Bolaños RN Specialty Slat Grader Oncology 10/01/20 Ursula Whiting RN Photographic Platemaker 10/02/20 Team Status: Inactive Member Role Status Dates Dr. Tami Chang MD Primary Care Provider Active Dr. Dayanara Huitron MD Attending Provider Active Dr. Christiano Centeno DO Referring Provider Active Team Status: Inactive Member Role Status Dates Dr. Tami Chang MD Primary Care Provider, Referrin g Provider Active Priyank SRINIVASAN PA Attending Provider Active Team Status: Inactive Member Role Status Dates Dr. Tami Chang MD Primary Care Provider Active Dr. Stefano Chanel MD Attending Provider, Emergency Provider Active Team Status: Inactive Member Role Status Dates Dr. Tami Chang MD Primary Care Provider Active ZARINA Landry Attending Provider, Referring Provi diamond Active Fork Lift Technician Relationship Specialty Start Date End Date Tami Chang [address] [place] [address] PCP - General Family Medicine 07/24/20 Ramila Bolaños RN Specialty Slat Grader Oncology 10/01/20 Ursula Whiting RN Photographic Platemaker 10/02/20 Fork Lift Technician Relationship Specialty Start Date End Date Tami Chang [address] [place] [address] PCP - General Family Medicine 07/24/20 Ramila Bolaños RN Specialty Slat Grader Oncology 10/01/20 Ursula Whiting RN Photographic Platemaker 10/02/20 Team Status: Inactive Member Role Status Dates Dr. Tami Chang MD Primary Care Provider Active Dr. Ted Lynch MD Attending Provider, [facility] Active Fork Lift Technician Relationship Specialty Start Date End Date Tami Chang [address] [place] [address] PCP - General Family Medicine 07/24/20 Ramila Bolaños RN Specialty Slat Grader Oncology 10/01/20 Ursula Whiting RN Photographic Platemaker 10/02/20 Fork Lift Technician Relationship Specialty Start Date End Date Tami Chang [address] [place] [address] PCP - General Family Medicine 07/24/20 Ramila Bolaños RN Specialty Slat Grader Oncology 10/01/20 Ursula Whiting RN Photographic Platemaker 10/02/20 Fork Lift Technician Relationship Specialty Start Date End Date Tami Chang [address] [place] [address] PCP - General Family Medicine 07/24/20 Ramila Bolaños RN Specialty Slat Grader Oncology 10/01/20 Ursula Whiting RN Photographic Platemaker 10/02/20 Fork Lift Technician Relationship Specialty Start Date End Date Tami Chang [address] [place] [address] PCP - General Family Medicine 07/24/20 Ramila Bolaños RN Specialty Slat Grader Oncology 10/01/20 Ursula Whiting RN Photographic Platemaker 10/02/20 Fork Lift Technician Relationship Specialty Start Date End Date Tami Chang [address] [place] [address] PCP - General Family Medicine 07/24/20 Ramila Bolaños RN Specialty Slat Grader Oncology 10/01/20 Ursula Whiting RN Photographic Platemaker 10/02/20 Fork Lift Technician Relationship Specialty Start Date End Date Tami Chang [address] [place] [address] PCP - General Family Medicine 07/24/20 Ramila Bolaños RN Specialty Slat Grader Oncology 10/01/20 Ursula Whiting RN Photographic Platemaker 10/02/20 Fork Lift Technician Relationship Specialty Start Date End Date Tami Chang [address] [place] [address] PCP - General Family Medicine 07/24/20 Ramila Bolaños RN Specialty Slat Grader Oncology 10/01/20 Ursula Whiting RN Photographic Platemaker 10/02/20 Fork Lift Technician Relationship Specialty Start Date End Date Tami Chang [address] [facility] [place] [address] PCP - General Family Medicine 07/24/20 Ramila Bolaños RN Specialty Slat Grader Oncology 10/01/20 Ursula Whiting RN Photographic Platemaker 10/02/20 Fork Lift Technician Relationship Specialty Start Date End Date Tami Chang [address] [place] [address] PCP - General Family Medicine 07/24/20 Ramila Bolaños RN Specialty Slat Grader Oncology 10/01/20 Ursula Whiting RN Photographic Platemaker 10/02/20 Fork Lift Technician Relationship Specialty Start Date End Date Tami Chang [address] [place] [address] PCP - General Family Medicine 07/24/20 Ramila Bolaños RN Specialty Slat Grader Oncology 10/01/20 Ursula Whiting RN Photographic Platemaker 10/02/20 Fork Lift Technician Relationship Specialty Start Date End Date Tami Chang [address] [place] [address] PCP - General Family Medicine 07/24/20 Ramila Bolaños RN Specialty Slat Grader Oncology 10/01/20 Ursula Whiting RN Photographic Platemaker 10/02/20 Fork Lift Technician Relationship Specialty Start Date End Date Tami Chang [address] [place] [address] PCP - General Family Medicine 07/24/20 Ramila Bolaños RN Specialty Slat Grader Oncology 10/01/20 Ursula Whiting RN Photographic Platemaker 10/02/20 Fork Lift Technician Relationship Specialty Start Date End Date Tami Chang [address] [place] [address] PCP - General Family Medicine 07/24/20 Ramila Bolaños RN Specialty Slat Grader Oncology 10/01/20 Ursula Whiting RN Photographic Platemaker 10/02/20 Fork Lift Technician Relationship Specialty Start Date End Date Tami Chang [address] [place] [address] PCP - General Family Medicine 07/24/20 Ramila Bolaños RN Specialty Slat Grader Oncology 10/01/20 Ursula Whiting, CRISTINA Photographic Platemaker 10/02/20 Fork Lift Technician Relationship Specialty Start Date End Date Tami Chang [address] [place] [address] PCP - General Family Medicine 07/24/20 Ramila Bolaños RN Specialty Slat Grader Oncology 10/01/20 Ursula Whiting RN Photographic Platemaker 10/02/20 Fork Lift Technician Relationship Specialty Start Date End Date Tami Chang [address] [place] [address] PCP - General Family Medicine 07/24/20 Ramila Bolaños RN Specialty Slat Grader Oncology 10/01/20 Ursula Whiting RN Photographic Platemaker 10/02/20 Fork Lift Technician Relationship Specialty Start Date End Date Tami Chang [address] [place] [address] PCP - General Family Medicine 07/24/20 Ramila Bolaños RN Specialty Slat Grader Oncology 10/01/20 Ursula Whiting, CRISTINA Photographic Platemaker 10/02/20 Fork Lift Technician Relationship Specialty Start Date End Date Tami Chang [address] [place] [address] PCP - General Family Medicine 07/24/20 Ramila Bolaños RN Specialty Slat Grader Oncology 10/01/20 Ursula Whiting RN Photographic Platemaker 10/02/20 Fork Lift Technician Relationship Specialty Start Date End Date Tami Chang [address] [place] [address] PCP - General Family Medicine 07/24/20 Ramila Bolaños RN Specialty Slat Grader Oncology 10/01/20 Ursula Whiting RN Photographic Platemaker 10/02/20 Fork Lift Technician Relationship Specialty Start Date End Date Tami Chang [address] [place] [address] PCP - General Family Medicine 07/24/20 Ramila Bolaños RN Specialty Slat Grader Oncology 10/01/20 Ursula Whiting RN Photographic Platemaker 10/02/20 Fork Lift Technician Relationship Specialty Start Date End Date Tami Chang [address] [place] [address] PCP - General Family Medicine 07/24/20 Ramila Bolaños RN Specialty Slat Grader Oncology 10/01/20 Ursula Whiting RN Photographic Platemaker 10/02/20 Fork Lift Technician Relationship Specialty Start Date End Date Tami Chang [address] [place] [address] PCP - General Family Medicine 07/24/20 Ramila Bolaños RN Specialty Slat Grader Oncology 10/01/20 Ursula Whiting RN Photographic Platemaker 10/02/20 Fork Lift Technician Relationship Specialty Start Date End Date Tami Chang [address] [place] [address] PCP - General Family Medicine 07/24/20 Ramila Bolaños RN Specialty Slat Grader Oncology 10/01/20 Ursula Whiting RN Photographic Platemaker 10/02/20 Fork Lift Technician Relationship Specialty Start Date End Date Tami Chang [address] [place] [address] PCP - General Family Medicine 07/24/20 Ramila Bolaños RN Specialty Slat Grader Oncology 10/01/20 Ursula Whiting, CRISTINA Photographic Platemaker 10/02/20 Fork Lift Technician Relationship Specialty Start Date End Date Tami Chang [address] [place] [address] PCP - General Family Medicine 07/24/20 Ramila Bolaños RN Specialty Slat Grader Oncology 10/01/20 Stefania Felix, [place] [address] [place] [address] Photographic Platemaker Hematology/Oncology 10/11/23 Fork Lift Technician Relationship Specialty Start Date End Date Tami Chang [address] [place] [address] PCP - General Family Medicine 07/24/20 Ramila Bolaños RN Specialty Slat Grader Oncology 10/01/20 Stefania Felix, CASTER OPERATOR [address] [place] [address] Photographic Platemaker Hematology/Oncology 10/11/23 Fork Lift Technician Relationship Specialty Start Date End Date Tami Chang [address] [place] [address] PCP - General Family Medicine 07/24/20 Ramila Bolaños RN Specialty Slat Grader Oncology 10/01/20 Stefania Felix LISW [address] [place] [address] Photographic Platemaker Hematology/Oncology 10/11/23 Team Status: Active Member Role Status Dates Dr. Tami Chang MD Primary Care Provider Active Dr. Freda Matos DO Attending Provider, Referri Provider Active Fork Lift Technician Relationship Specialty Start Date End Date Tami Chang [address] [place] [address] PCP - General Family Medicine 07/24/20 Ramila Bolaños RN Specialty Slat Grader Oncology 10/01/20 Stefania Felix, CASTER OPERATOR [address] [place] [address] Photographic Platemaker Hematology/Oncology 10/11/23 Fork Lift Technician Relationship Specialty Start Date End Date Tami Chang [address] [place] [address] PCP - General Family Medicine 07/24/20 Ramila Bolaños RN Specialty Slat Grader Oncology 10/01/20 Stefania Felix, CASTER OPERATOR [address] [place] [address] Photographic Platemaker Hematology/Oncology 10/11/23 Fork Lift Technician Relationship Specialty Start Date End Date Tami Chang [address] [place] [address] PCP - General Family Medicine 07/24/20 Ramila Bolaños RN Specialty Slat Grader Oncology 10/01/20 Stefania Felix, CASTER OPERATOR [address] [place] [address] Photographic Platemaker Hematology/Oncology 10/11/23 Fork Lift Technician Relationship Specialty Start Date End Date Tami Chang [address] [place] [address] PCP - General Family Medicine 07/24/20 Ramila Bolaños RN Specialty Slat Grader Oncology 10/01/20 Stefania Felix, [place] [address] [place] [address] Photographic Platemaker Hematology/Oncology 10/11/23 Fork Lift Technician Relationship Specialty Start Date End Date Tami Chang [address] [place] [address] PCP - General Family Medicine 07/24/20 Ramila Bolaños RN Specialty Slat Grader Oncology 10/01/20 Stefania Felix, CASTER OPERATOR [address] [place] [address] Photographic Platemaker Hematology/Oncology 10/11/23 Fork Lift Technician Relationship Specialty Start Date End Date Tami Chang [address] [place] [address] PCP - General Family Medicine 07/24/20 Raimla Bolaños RN Specialty Slat Grader Oncology 10/01/20 Stefania Felix, CASTER OPERATOR [address] [place] [address] Photographic Platemaker Hematology/Oncology 10/11/23 Fork Lift Technician Relationship Specialty Start Date End Date Tami Chang [address] [place] [address] PCP - General Family Medicine 07/24/20 Ramila Bolaños RN Specialty Slat Grader Oncology 10/01/20 Stefania Felix, CASTER OPERATOR [address] [place] [address] Photographic Platemaker Hematology/Oncology 10/11/23 Fork Lift Technician Relationship Specialty Start Date End Date Tami Chang [address] [place] [address] PCP - General Family Medicine 07/24/20 Ramila Bolaños RN Specialty Slat Grader Oncology 10/01/20 Stefania Felix, CASTER OPERATOR [address] [place] [address] Photographic Platemaker Hematology/Oncology 10/11/23 Fork Lift Technician Relationship Specialty Start Date End Date Tami Chang [address] [place] [address] PCP - General Family Medicine 07/24/20 Ramila Bolaños RN Specialty Slat Grader Oncology 10/01/20 Stefania Felix, CASTER OPERATOR [address] [place] [address] Photographic Platemaker Hematology/Oncology 10/11/23 Fork Lift Technician Relationship Specialty Start Date End Date Tami Chang [address] [place] [address] PCP - General Family Medicine 07/24/20 Ramila Bolaños RN Specialty Slat Grader Oncology 10/01/20 Stefania Felix, CASTER OPERATOR [address] [place] [address] Photographic Platemaker Hematology/Oncology 10/11/23 Fork Lift Technician Relationship Specialty Start Date End Date Tami Chang [address] [place] [address] PCP - General Family Medicine 07/24/20 Ramila Bolaños RN Specialty Slat Grader Oncology 10/01/20 Stefania Felix, CASTER OPERATOR [address] [place] [address] Photographic Platemaker Hematology/Oncology 10/11/23 Fork Lift Technician Relationship Specialty Start Date End Date Tami Chang [address] [place] [address] PCP - General Family Medicine 07/24/20 Ramila Bolaños RN Specialty Slat Grader Oncology 10/01/20 Stefania Felix, CASTER OPERATOR [address] [place] [address] Photographic Platemaker Hematology/Oncology 10/11/23 Fork Lift Technician Relationship Specialty Start Date End Date Tami Chang [address] [place] [address] PCP - General Family Medicine 07/24/20 Ramila Bolaños RN Specialty Slat Grader Oncology 10/01/20 Stefania Felix, CASTER OPERATOR [address] [place] [address] Photographic Platemaker Hematology/Oncology 10/11/23 Fork Lift Technician Relationship Specialty Start Date End Date Tami Chang [address] [place] [address] PCP - General Family Medicine 07/24/20 Ramila Bolaños RN Specialty Slat Grader Oncology 10/01/20 Stefania Felix, CASTER OPERATOR [address] [place] [address] Photographic Platemaker Hematology/Oncology 10/11/23 Fork Lift Technician Relationship Specialty Start Date End Date Tami Chang [address] [place] [address] PCP - General Family Medicine 07/24/20 Ramila Bolaños RN Specialty Slat Grader Oncology 10/01/20 Stefania Felix, CASTER OPERATOR [address] [place] [address] Photographic Platemaker Hematology/Oncology 10/11/23 Fork Lift Technician Relationship Specialty Start Date End Date Tami Chang [address] [place] [address] PCP - General Family Medicine 07/24/20 Ramila Bolaños RN Specialty Slat Grader Oncology 10/01/20 Stefania Felix, [place] [address] [place] [address] Photographic Platemaker Hematology/Oncology 10/11/23 Fork Lift Technician Relationship Specialty Start Date End Date Tami Chang [address] [place] [address] PCP - General Family Medicine 07/24/20 Ramila Bolaños RN Specialty Slat Grader Oncology 10/01/20 Stefania Felix, [place] [address] [place] [address] Photographic Platemaker Hematology/Oncology 10/11/23 Fork Lift Technician Relationship Specialty Start Date End Date Tami Chang [address] [place] [address] PCP - General Family Medicine 07/24/20 Ramila Bolaños RN Specialty Slat Grader Oncology 10/01/20 Stefania Felix, CASTER OPERATOR [address] [place] [address] Photographic Platemaker Hematology/Oncology 10/11/23 Fork Lift Technician Relationship Specialty Start Date End Date Tami Chang [address] [place] [address] PCP - General Family Medicine 07/24/20 Ramila Bolaños, RN Specialty Slat Grader Oncology 10/01/20 Stefania Felix LISW [address] [place] [address] Photographic Platemaker Hematology/Oncology 10/11/23 Fork Lift Technician Relationship Specialty Start Date End Date Tami Chang [address] [place] [address] PCP - General Family Medicine 07/24/20 Ramila Bolaños RN Specialty Slat Grader Oncology 10/01/20 Stefania Felix, CASTER OPERATOR [address] [place] [address] Photographic Platemaker Hematology/Oncology 10/11/23 Fork Lift Technician Relationship Specialty Start Date End Date Tami Chang [address] [place] [address] PCP - General Family Medicine 07/24/20 Ramila Bolaños RN Specialty Slat Grader Oncology 10/01/20 Stefania Felix, [place] [address] [place] [address] Photographic Platemaker Hematology/Oncology 10/11/23 Fork Lift Technician Relationship Specialty Start Date End Date Tami Chang [address] [place] [address] PCP - General Family Medicine 07/24/20 Ramila Bolaños RN Specialty Slat Grader Oncology 10/01/20 Stefania Felix LISW [address] [place] [address] Photographic Platemaker Hematology/Oncology 10/11/23 Fork Lift Technician Relationship Specialty Start Date End Date Tami Chang [address] [place] [address] PCP - General Family Medicine 07/24/20 Ramila Bolaños RN Specialty Slat Grader Oncology 10/01/20 Stefania Felix, CASTER OPERATOR [address] [place] [address] Photographic Platemaker Hematology/Oncology 10/11/23 Fork Lift Technician Relationship Specialty Start Date End Date Tami Chang [address] [place] [address] PCP - General Family Medicine 07/24/20 Ramila Bolaños RN Specialty Slat Grader Oncology 10/01/20 Stefania Felix, CASTER OPERATOR [address] [place] [address] Photographic Platemaker Hematology/Oncology 10/11/23 Fork Lift Technician Relationship Specialty Start Date End Date Tami Chang [address] [place] [address] PCP - General Family Medicine 07/24/20 Ramila Bolaños RN Specialty Slat Grader Oncology 10/01/20 Stefania Felix, CASTER OPERATOR [address] [place] [address] Photographic Platemaker Hematology/Oncology 10/11/23 Fork Lift Technician Relationship Specialty Start Date End Date Tami Chang [address] [place] [address] PCP - General Family Medicine 07/24/20 Ramila Bolaños RN Specialty Slat Grader Oncology 10/01/20 Stefania Felix, CASTER OPERATOR [address] [place] [address] Photographic Platemaker Hematology/Oncology 10/11/23 Domenic Kelley APRN.CNP [address] [place] [address] Referring Hematology/Oncology 02/20/24 Fork Lift Technician Relationship Specialty Start Date End Date Tami Chang [address] [place] [address] PCP - General Family Medicine 07/24/20 Ramila Bolaños RN Specialty Slat Grader Oncology 10/01/20 Stefania Felix LISW [address] [place] [address] Photographic Platemaker Hematology/Oncology 10/11/23 Domenic Kelley, DUTY MANAGER.GREASE REFINER OPERATOR [address] [place] [address] Referring Hematology/Oncology 02/20/24 Fork Lift Technician Relationship Specialty Start Date End Date Tami Chang [address] [place] [address] PCP - General Family Medicine 07/24/20 Ramila Bolaños RN Specialty Slat Grader Oncology 10/01/20 Stefania Felix LISW [address] [place] [address] Photographic Platemaker Hematology/Oncology 10/11/23 Domenic Kelley, DUTY MANAGER.GREASE REFINER OPERATOR [address] [place] [address] Referring Hematology/Oncology 02/20/24 Fork Lift Technician Relationship Specialty Start Date End Date Tami Chang [address] [place] [address] PCP - General Family Medicine 07/24/20 Ramila Bolaños RN Specialty Slat Grader Oncology 10/01/20 Stefania Felix LISW [address] [place] [address] Photographic Platemaker Hematology/Oncology 10/11/23 Domenic Kelley, DUTY MANAGER.GREASE REFINER OPERATOR [address] [place] [address] Referring Hematology/Oncology 02/20/24 Fork Lift Technician Relationship Specialty Start Date End Date Tami Chang [address] [place] [address] PCP - General Family Medicine 07/24/20 Ramila Bolaños, RN Specialty Slat Grader Oncology 10/01/20 Ursula Whiting, CRISTINA Photographic Platemaker 10/02/20 10/10/23 Fork Lift Technician Relationship Specialty Start Date End Date Tami Chang [address] [place] [address] PCP - General Family Medicine 07/24/20 Ramila Bolaños, RN Specialty Slat Grader Oncology 10/01/20 Stefania Felix LISW [address] [place] [address] Photographic Platemaker Hematology/Oncology 10/11/23 Domenic Kelley, DUTY MANAGER.GREASE REFINER OPERATOR [address] [place] [address] Referring Hematology/Oncology 02/20/24 Fork Lift Technician Relationship Specialty Start Date End Date Tami Chang [address] [place] [address] PCP - General Family Medicine 07/24/20 Ramila Bolaños RN Specialty Slat Grader Oncology 10/01/20 Stefania Felix LISW [address] [place] [address] Photographic Platemaker Hematology/Oncology 10/11/23 Domenic Kelley, DUTY MANAGER.GREASE REFINER OPERATOR [address] [place] [address] Referring Hematology/Oncology 02/20/24 Fork Lift Technician Relationship Specialty Start Date End Date Tami Chang [address] [place] [address] PCP - General Family Medicine 07/24/20 Ramila Bolaños RN Specialty Slat Grader Oncology 10/01/20 Stefania Felix, CASTER OPERATOR [address] [place] [address] Photographic Platemaker Hematology/Oncology 10/11/23 Domenic Kelley, DUTY MANAGER.GREASE REFINER OPERATOR [address] [place] [address] Referring Hematology/Oncology 02/20/24 Fork Lift Technician Relationship Specialty Start Date End Date Tami Chang [address] [place] [address] PCP - General Family Medicine 07/24/20 Ramila Bolaños RN Specialty Slat Grader Oncology 10/01/20 Stefania Felix, CASTER OPERATOR [address] [place] [address] Photographic Platemaker Hematology/Oncology 10/11/23 Domenic Kelley, DUTY MANAGER.GREASE REFINER OPERATOR [address] [place] [address] Referring Hematology/Oncology 02/20/24 Fork Lift Technician Relationship Specialty Start Date End Date Tami Chang [address] [place] [address] PCP - General Family Medicine 07/24/20 Ramila Bolaños RN Specialty Slat Grader Oncology 10/01/20 Stefania Felix, CASTER OPERATOR [address] [place] [address] Photographic Platemaker Hematology/Oncology 10/11/23 Domenic Kelley, DUTY MANAGER.GREASE REFINER OPERATOR [address] [place] [address] Referring Hematology/Oncology 02/20/24 Fork Lift Technician Relationship Specialty Start Date End Date Tami Chang [address] [place] [address] PCP - General Family Medicine 07/24/20 Ramila Bolaños, RN Specialty Slat Grader Oncology 10/01/20 Stefania Felix LISW [address] [place] [address] Photographic Platemaker Hematology/Oncology 10/11/23 Domenic Kelley, DUTY MANAGER.GREASE REFINER OPERATOR [address] [place] [address] Referring Hematology/Oncology 02/20/24 Fork Lift Technician Relationship Specialty Start Date End Date Tami Chang [address] [place] [address] PCP - General Family Medicine 07/24/20 Ramila Bolaños RN Specialty Slat Grader Oncology 10/01/20 Stefania Felix LISW [address] [place] [address] Photographic Platemaker Hematology/Oncology 10/11/23 Domenic Kelley, DUTY MANAGER.GREASE REFINER OPERATOR [address] [place] [address] Referring Hematology/Oncology 02/20/24 Fork Lift Technician Relationship Specialty Start Date End Date Tami Chang [address] [place] [address] PCP - General Family Medicine 07/24/20 Ramila Bolaños RN Specialty Slat Grader Oncology 10/01/20 Stefania Felix LISW [address] [place] [address] Photographic Platemaker Hematology/Oncology 10/11/23 Domenic Kelley, DUTY MANAGER.GREASE REFINER OPERATOR [address] [place] [address] Referring Hematology/Oncology 02/20/24 Fork Lift Technician Relationship Specialty Start Date End Date Tami Chang [address] [place] [address] PCP - General Family Medicine 07/24/20 Ramila Bolaños RN Specialty Slat Grader Oncology 10/01/20 Stefania Felix LISW [address] [place] [address] Photographic Platemaker Hematology/Oncology 10/11/23 Domenic Kelley, DUTY MANAGER.GREASE REFINER OPERATOR [address] [place] [address] Referring Hematology/Oncology 02/20/24 Fork Lift Technician Relationship Specialty Start Date End Date Tami Chang [address] [place] [address] PCP - General Family Medicine 07/24/20 Ramila Bolaños RN Specialty Slat Grader Oncology 10/01/20 Stefania Felix, CASTER OPERATOR [address] [place] [address] Photographic Platemaker Hematology/Oncology 10/11/23 Domenic Kelley, DUTY MANAGER.GREASE REFINER OPERATOR [address] [place] [address] Referring Hematology/Oncology 02/20/24 Fork Lift Technician Relationship Specialty Start Date End Date Tami Chang [address] [place] [address] PCP - General Family Medicine 07/24/20 Ramila Bolaños, RN Specialty Slat Grader Oncology 10/01/20 Stefania Felix LISW [address] [place] [address] Photographic Platemaker Hematology/Oncology 10/11/23 Domenic Kelley, DUTY MANAGER.GREASE REFINER OPERATOR [address] [place] [address] Referring Hematology/Oncology 02/20/24 Fork Lift Technician Relationship Specialty Start Date End Date Tami Chang [address] [place] [address] PCP - General Family Medicine 07/24/20 Ramila Bolaños, RN Specialty Slat Grader Oncology 10/01/20 Stefania Felix LISW [address] [place] [address] Photographic Platemaker Hematology/Oncology 10/11/23 Domenic Kelley, DUTY MANAGER.GREASE REFINER OPERATOR [address] [place] [address] Referring Hematology/Oncology 02/20/24 Fork Lift Technician Relationship Specialty Start Date End Date Tami Chang [address] [place] [address] PCP - General Family Medicine 07/24/20 Ramila Bolaños RN Specialty Slat Grader Oncology 10/01/20 Stefania Felix LISW [address] [place] [address] Photographic Platemaker Hematology/Oncology 10/11/23 Domenic Kelley, DUTY MANAGER.GREASE REFINER OPERATOR [address] [place] [address] Referring Hematology/Oncology 02/20/24 Fork Lift Technician Relationship Specialty Start Date End Date Tami Chang [address] [place] [address] PCP - General Family Medicine 07/24/20 Ramila Bolaños, RN Specialty Slat Grader Oncology 10/01/20 Stefania Felix, CASTER OPERATOR [address] [place] [address] Photographic Platemaker Hematology/Oncology 10/11/23 Domenic Kelley, DUTY MANAGER.GREASE REFINER OPERATOR [address] [place] [address] Referring Hematology/Oncology 02/20/24 Fork Lift Technician Relationship Specialty Start Date End Date Tami Chang [address] [place] [address] PCP - General Family Medicine 07/24/20 Ramila Bolaños RN Specialty Slat Grader Oncology 10/01/20 Stefania Felix LISW [address] [place] [address] Photographic Platemaker Hematology/Oncology 10/11/23 Domenic Kelley, DUTY MANAGER.GREASE REFINER OPERATOR [address] [place] [address] Referring Hematology/Oncology 02/20/24 Fork Lift Technician Relationship Specialty Start Date End Date Tami Chang [address] [place] [address] PCP - General Family Medicine 07/24/20 Ramila Bolaños RN Specialty Slat Grader Oncology 10/01/20 Stefania Felix LISW [address] [place] [address] Photographic Platemaker Hematology/Oncology 10/11/23 Domenic Kelley, DUTY MANAGER.GREASE REFINER OPERATOR [address] [place] [address] Referring Hematology/Oncology 02/20/24 Fork Lift Technician Relationship Specialty Start Date End Date Tami Chang [address] [place] [address] PCP - General Family Medicine 07/24/20 Ramila Bolaños RN Specialty Slat Grader Oncology 10/01/20 Stefania Felix LISW [address] [place] [address] Photographic Platemaker Hematology/Oncology 10/11/23 Gillett Prospect, DUTY MANAGER.GREASE REFINER OPERATOR [address] [place] [address] Referring Hematology/Oncology 02/20/24 Fork Lift Technician Relationship Specialty Start Date End Date Tami Chang [address] [place] [address] PCP - General Family Medicine 07/24/20 Ramila Bolaños, RN Specialty Slat Grader Oncology 10/01/20 Stefania Felix LISW [address] [place] [address] Photographic Platemaker Hematology/Oncology 10/11/23 [facility], DUTY MANAGER.GREASE REFINER OPERATOR [address] [place] [address] Referring Hematology/Oncology 02/20/24 Fork Lift Technician Relationship Specialty Start Date End Date Tami Chang [address] [place] [address] PCP - General Family Medicine 07/24/20 Ramila Bolaños RN Specialty Slat Grader Oncology 10/01/20 Stefania Felix LISW [address] [place] [address] Photographic Platemaker Hematology/Oncology 10/11/23 [facility], DUTY MANAGER.GREASE REFINER OPERATOR [address] [place] [address] Referring Hematology/Oncology 02/20/24 Fork Lift Technician Relationship Specialty Start Date End Date Tami Chang [address] [place] [address] PCP - General Family Medicine 07/24/20 Ramila Bolaños RN Specialty Slat Grader Oncology 10/01/20 Stefania Felix, CASTER OPERATOR [address] [place] [address] Photographic Platemaker Hematology/Oncology 10/11/23 Domenic Kelley, DUTY MANAGER.GREASE REFINER OPERATOR [address] [place] [address] Referring Hematology/Oncology 02/20/24 Fork Lift Technician Relationship Specialty Start Date End Date Tami Chang [address] [place] [address] PCP - General Family Medicine 07/24/20 Ramila Bolaños RN Specialty Slat Grader Oncology 10/01/20 Stefania Felix, CASTER OPERATOR [address] [place] [address] Photographic Platemaker Hematology/Oncology 10/11/23 Domenic Kelley, DUTY MANAGER.GREASE REFINER OPERATOR [address] [place] [address] Referring Hematology/Oncology 02/20/24 Fork Lift Technician Relationship Specialty Start Date End Date Tami Chang [address] [place] [address] PCP - General Family Medicine 07/24/20 Ramila Bolaños RN Specialty Slat Grader Oncology 10/01/20 Stefania Felix, CASTER OPERATOR [address] [place] [address] Photographic Platemaker Hematology/Oncology 10/11/23 Domenic Kelley, DUTY MANAGER.GREASE REFINER OPERATOR [address] [place] [address] Referring Hematology/Oncology 02/20/24 Christiano Centeno DO [address] [place] [address] Hematology/Oncology 07/13/24 Fork Lift Technician Relationship Specialty Start Date End Date Tami Chang [address] [place] [address] PCP - General Family Medicine 07/24/20 Ramila Bolaños, RN Specialty Slat Grader Oncology 10/01/20 Stefania Felix LISW [address] [place] [address] Photographic Platemaker Hematology/Oncology 10/11/23 Domenic Kelley, DUTY MANAGER.GREASE REFINER OPERATOR [address] [place] [address] Referring Hematology/Oncology 02/20/24 Christiano Centeno DO [address] [place] [address] Hematology/Oncology 07/13/24 Fork Lift Technician Relationship Specialty Start Date End Date Tami Chang [address] [place] [address] PCP - General Family Medicine 07/24/20 Ramila Bolaños RN Specialty Slat Grader Oncology 10/01/20 Stefania Felix LISW [address] [place] [address] Photographic Platemaker Hematology/Oncology 10/11/23 Domenic Kelley, DUTY MANAGER.GREASE REFINER OPERATOR [address] [place] [address] Referring Hematology/Oncology 02/20/24 Christiano Centeno DO [address] [place] [address] Hematology/Oncology 07/13/24 Fork Lift Technician Relationship Specialty Start Date End Date Tami Chang [address] [place] [address] PCP - General Family Medicine 07/24/20 Ramila Bolaños RN Specialty Slat Grader Oncology 10/01/20 Stefania Felix, CASTER OPERATOR [address] [place] [address] Photographic Platemaker Hematology/Oncology 10/11/23 Domenic Kelley, DUTY MANAGER.GREASE REFINER OPERATOR [address] [place] [address] Referring Hematology/Oncology 02/20/24 Christiano Centeno DO [address] [place] [address] Hematology/Oncology 07/13/24 Fork Lift Technician Relationship Specialty Start Date End Date Tami Chang [address] [place] [address] PCP - General Family Medicine 07/24/20 Ramila Bolaños RN Specialty Slat Grader Oncology 10/01/20 Stefania Felix, CASTER OPERATOR [address] [place] [address] Photographic Platemaker Hematology/Oncology 10/11/23 Domenic Kelley, DUTY MANAGER.GREASE REFINER OPERATOR [address] [place] [address] Referring Hematology/Oncology 02/20/24 Christiano Centeno DO [address] [place] [address] Hematology/Oncology 07/13/24 Fork Lift Technician Relationship Specialty Start Date End Date Tami Chang [address] [place] [address] PCP - General Family Medicine 07/24/20 Ramila Bolaños RN Specialty Slat Grader Oncology 10/01/20 Stefania Felix LISW [address] [place] [address] Photographic Platemaker Hematology/Oncology 10/11/23 Domenic Kelley APRN.CNP [address] [place], [place] [id number] Referring Hematology/Oncology 02/20/24 Christiano Centeno DO [address] [place], [place] [id number] Hematology/Oncology 07/13/24 Team Status: Active Member Role Status Dates Dr. Tami Chang MD Primary Care Provider Active Team Status: Inactive Member Role Status Dates Dr. Tami Chang MD Primary Care Provider Active Start: April 30, 2024 End: April 30, 2024 Dr. Tami Chang MD Referring Provider Active Start: April 30, 2024 End: April 30, 2024 Dr. Sam Zamudio MD Attending Provider Active Start: April 30, 2024 End: April 30, 2024 Team Status: Inactive Member Role Status Dates Dr. Tami Chang MD Primary Care Provider Active Start: May 23, 2024 End: May 23, 2024 Dr. Tami Chang MD Referring Provider Active Start: May 23, 2024 End: May 23, 2024 Dr. Sam Zamudio MD Attending Provider Active Start: May 23, 2024 End: May 23, 2024 Team Status: Active Member Role Status Dates Dr. Tami Chang MD Primary Care Provider Active Start: May 23, 2024 Dr. Tami Chang MD Referring Provider Active Start: May 23, 2024 Dr. Sam Zamduio MD Attending Provider Active Start: May 23, 2024 Dr. Sam Zamudio MD Other Provider Active St art: May 23, 2024 Team Status: Inactive Member Role Status Dates Dr. Tami Chang MD Primary Care Provider Active Start: June 02, 2024 End: June 02, 2024 Dr. Tami Chang MD Referring Provider Active Start: June 02, 2024 End: June 02, 2024 TYLER Woo Attending Provider Active Start: June 02, 2024 End: June 02, 2024 Team Status: Inactive Member Role Status Dates Dr. Tami Chang MD Primary Care Provider Active Start: June 04, 2024 End: June 04, 2024 Dr. Kristofer Hernandez DO Attending Provider Active Start: June 04, 2024 End: June 04, 2024 Dr. Kristofer Hernandez DO Emergency Provider Active Start: June 04, 2024 End: June 04, 2024 Team Status: Active Member Role Status Dates Dr. Tami Chang MD Primary Care Provider Active Start: August 25, 2024 Juan Nieves MD Emergency Provider Active Star t: August 25, 2024 Dr. Buzz Alford DO Admit Provider Active Start: August 25, 2024 Dr. Buzz Alford DO Attending Provider Active Start: August 25, 2024 Team Status: Active Member Role Status Dates Dr. Tami Chang MD Primary Care Provider Active Start: August 27, 2024 Juan Nieves MD Emergency Provider Active Star t: August 27, 2024 Dr. Buzz Alford DO Admit Provider Active Start: August 27, 2024 Dr. Buzz Alford DO Other Provider Active Start: August 27, 2024 Dr. Dominik Carlso DO Other Provider Active S tart: August 27, 2024 Dr. Wendy Calle MD Other Provider Active Star t: August 27, 2024 Dr. Jin Rosales MD Attending Provider Active Start: August 27, 2024 Fork Lift Technician Relationship Specialty Start Date End Date Tami Chang [address] [place] [address] PCP - General Family Medicine 07/24/20 Ramila Bolaños RN Specialty Slat Grader Oncology 10/01/20 Stefania Felix LISW [address] [place] [address] Photographic Platemaker Hematology/Oncology 10/11/23 Domenic Kelley, DUTY MANAGER.GREASE REFINER OPERATOR [address] [place] [address] Referring Hematology/Oncology 02/20/24 Christiano Centeno DO [address] [place] [address] Hematology/Oncology 07/13/24 Fork Lift Technician Relationship Specialty Start Date End Date Tami Chang [address] [place] [address] PCP - General Family Medicine 07/24/20 Ramila Bolaños RN Specialty Slat Grader Oncology 10/01/20 Stefania Felix LISW [address] [place] [address] Photographic Platemaker Hematology/Oncology 10/11/23 Domenic Kelley, DUTY MANAGER.GREASE REFINER OPERATOR [address] [place] [address] Referring Hematology/Oncology 02/20/24 Christiano Centeno DO [address] [place] [address] Hematology/Oncology 07/13/24 Fork Lift Technician Relationship Specialty Start Date End Date Tami Chang [address] [place] [address] PCP - General Family Medicine 07/24/20 Ramila Bolaños RN Specialty Slat Grader Oncology 10/01/20 Stefania Felix, CASTER OPERATOR [address] [place] [address] Photographic Platemaker Hematology/Oncology 10/11/23 Domenic Kelley, DUTY MANAGER.GREASE REFINER OPERATOR [address] [place] [address] Referring Hematology/Oncology 02/20/24 Christiano Centeno DO [address] [place] [address] Hematology/Oncology 07/13/24 Fork Lift Technician Relationship Specialty Start Date End Date Tami Chang [address] [place] [address] PCP - General Family Medicine 07/24/20 Ramila Bolaños RN Specialty Slat Grader Oncology 10/01/20 Stefania Felix LISW [address] [place] [address] Photographic Platemaker Hematology/Oncology 10/11/23 Domenic Kelley, DUTY MANAGER.GREASE REFINER OPERATOR [address] [place] [address] Referring Hematology/Oncology 02/20/24 Christiano Centeno DO [address] [place] [address] Hematology/Oncology 07/13/24 Fork Lift Technician Relationship Specialty Start Date End Date Tami Chang [address] [place] [address] PCP - General Family Medicine 07/24/20 Ramila Bolaños RN Specialty Slat Grader Oncology 10/01/20 Stefania Felix LISW [address] [place] [address] Photographic Platemaker Hematology/Oncology 10/11/23 Domenic Kelley, DUTY MANAGER.GREASE REFINER OPERATOR [address] [place] [address] Referring Hematology/Oncology 02/20/24 Christiano Centeno DO [address] [place] [address] Hematology/Oncology 07/13/24 Fork Lift Technician Relationship Specialty Start Date End Date Tami Chang [address] [place] [address] PCP - General Family Medicine 07/24/20 Ramila Bolaños RN Specialty Slat Grader Oncology 10/01/20 Stefania Felix LISW [address] [place] [address] Photographic Platemaker Hematology/Oncology 10/11/23 Domenic Kelley, DUTY MANAGER.GREASE REFINER OPERATOR [address] [place] [address] Referring Hematology/Oncology 02/20/24 Christiano Centeno DO [address] [place] [address] Hematology/Oncology 07/13/24 Fork Lift Technician Relationship Specialty Start Date End Date Tami Chang [address] [place] [address] PCP - General Family Medicine 07/24/20 Ramila Bolaños RN Specialty Slat Grader Oncology 10/01/20 Stefania Felix LISW [address] [place] [address] Photographic Platemaker Hematology/Oncology 10/11/23 Domenic Kelley, DUTY MANAGER.GREASE REFINER OPERATOR [address] [place] [address] Referring Hematology/Oncology 02/20/24 Christiano Centeno DO [address] [place] [address] Hematology/Oncology 07/13/24 Team Status: Inactive Member Role Status Dates Dr. Guerrero Vasquez III, MD Attending Provider Active Start: October 26, 2024 End: October 26, 2024 Dr. Guerrero Vasquez III, MD Referring Provider Active Start: October 26, 2024 End: October 26, 2024 Dr. Eveline Argueta DO Primary Care Provider Active Start: October 26, 2024 End: October 26, 2024 Fork Lift Technician Relationship Specialty Start Date End Date Ramila Bolaños RN Specialty Slat Grader Oncology 10/01/20 Stefania Felix LISW [address] [place] [address] Photographic Platemaker Hematology/Oncology 10/11/23 Domenic Kelley, DUTY MANAGER.GREASE REFINER OPERATOR [address] [place] [address] Referring Hematology/Oncology 02/20/24 Christiano Centeno DO [address] [place] [address] Hematology/Oncology 07/13/24 Eveline Argueta DO [address] [facility] [place] [phone] Family Medicine 10/24/24 Fork Lift Technician Relationship Specialty Start Date End Date Ramila Bolaños RN Specialty Slat Grader Oncology 10/01/20 Stefania Felxi LISW [address] [place] [address] Photographic Platemaker Hematology/Oncology 10/11/23 Domenic Kelley, DUTY MANAGER.GREASE REFINER OPERATOR [address] [place] [address] Referring Hematology/Oncology 02/20/24 Christiano Centeno DO [address] [place] [address] Hematology/Oncology 07/13/24 Eveline Argueta DO [address] [place] [phone] [facility] 10/24/24 Fork Lift Technician Relationship Specialty Start Date End Date Ramila Bolaños RN Specialty Slat Grader Oncology 10/01/20 Stefania Felix LISW [address] [place] [address] Photographic Platemaker Hematology/Oncology 10/11/23 Domenic Kelley, DUTY MANAGER.GREASE REFINER OPERATOR [address] [place], [place] [address] Referring Hematology/Oncology 02/20/24 Christiano Centeno DO [address] [place], [place] [id number] Hematology/Oncology 07/13/24 Eveline Argueta DO [address] [place] [phone] [facility] 10/24/24 Team Status: Inactive Member Role Status Dates Dr. Eveline Argueta DO Primary Care Provider Active Start: November 20, 2024 End: November 20, 2024 Dr. Guerrero Vasquez III, MD Attending Provider Active Start: November 20, 2024 End: November 20, 2024 Dr. Guerrero Vasquez III, MD Referring Provider Active Start: November 20, 2024 End: November 20, 2024 Fork Lift Technician Relationship Specialty Start Date End Date Ramila Bolaños RN Specialty Slat Grader Oncology 10/01/20 Stefania Felix LISW [address] [place] [address] Photographic Platemaker Hematology/Oncology 10/11/23 Domenic Kelley, DUTY MANAGER.GREASE REFINER OPERATOR [address] [place] [address] Referring Hematology/Oncology 02/20/24 Christiano Centeno DO [address] [place] [address] Hematology/Oncology 07/13/24 Eveline Argueta DO [address] [place] [phone] Family Medicine 10/24/24 Fork Lift Technician Relationship Specialty Start Date End Date Ramila Bolaños RN Specialty Slat Grader Oncology 10/01/20 Stefania Felix LISW [address] [place] [address] Photographic Platemaker Hematology/Oncology 10/11/23 Domenic Kelley, DUTY MANAGER.GREASE REFINER OPERATOR [address] [place] [address] Referring Hematology/Oncology 02/20/24 Christiano Centeno DO [address] [place] [address] Hematology/Oncology 07/13/24 Eveline Argueta DO [address] [place] [phone] Family Medicine 10/24/24 Fork Lift Technician Relationship Specialty Start Date End Date Ramila Bolaños RN Specialty Slat Grader Oncology 10/01/20 Stefania Felix LISW [address] [place] [address] Photographic Platemaker Hematology/Oncology 10/11/23 Domenic Kelley, DUTY MANAGER.GREASE REFINER OPERATOR [address] [place] [address] Referring Hematology/Oncology 02/20/24 Christiano Centeno DO [address] [place] [address] Hematology/Oncology 07/13/24 Eveline Argueta DO [address] [place] [phone] Family Medicine 10/24/24 Team Status: Active Member Role/Relationship Status Dates Dr. Eveline Argueta , Primary Care Provider Active Team Status: Inactive Member Role/Relationship Status Dates Dr. Tami Chang MD Primary Care Provider Active Start: August 25, 2024 End: August 29, 2024 Juna Nieves MD Emergency Provider Active Star t: August 25, 2024 End: August 29, 2024 Dr. Buzz Alford , Admit Provider Active Start: August 25, 2024 End: August 29, 2024 Dr. Buzz Alford , Other Provider Active Start: August 25, 2024 End: August 29, 2024 Dr. Wendy Calle MD Other Provider Active Star t: August 25, 2024 End: August 29, 2024 Dr. Jin Rosales MD Other Provider Active Star t: August 25, 2024 End: August 29, 2024 Dr. Carolyn Hatch , Attending Provider Active S tart: August 25, 2024 End: August 29, 2024 Dr. Dominik Carlos , Other Provider Active S tart: August 25, 2024 End: August 29, 2024 Team Status: Active Member Role/Relationship Status Dates Dr. Tami Chang MD Primary Care Provider Active Start: August 26, 2024 Juan Nieves MD Emergency Provider Active Star t: August 26, 2024 Dr. Buzz Alford , Admit Provider Active Start: August 26, 2024 Dr. Buzz Alford , Other Provider Active Start: August 26, 2024 Dr. Dominik Carlos DO Attending Provider Active Start: August 26, 2024 Dr. Dominik Carlos , Other Provider Active S tart: August 26, 2024 Team Status: Active Member Role/Relationship Status Dates Dr. Tami Chang MD Primary Care Provider Active Start: August 27, 2024 Juan Nieves MD Emergency Provider Active Star t: August 27, 2024 Dr. Buzz Alford , Admit Provider Active Start: August 27, 2024 Dr. Buzz Alford DO Other Provider Active Start: August 27, 2024 Dr. Dominik Carlos DO Other Provider Active S tart: August 27, 2024 Dr. Wendy Calle MD Other Provider Active Star t: August 27, 2024 Dr. Jin Rosales MD Attending Provider Active Start: August 27, 2024 Dr. Carolyn Hatch , Referring Provider Active S tart: August 27, 2024 Team Status: Active Member Role/Relationship Status Dates Dr. Tami Chang MD Primary Care Provider Active Start: August 27, 2024 Juan Nieves MD Emergency Provider Active Star t: August 27, 2024 Dr. Buzz Alford DO Admit Provider Active Start: August 27, 2024 Dr. Buzz Alford DO Other Provider Active Start: August 27, 2024 Dr. Dominik Carlos DO Attending Provider Active Start: August 27, 2024 Dr. Dominik Carlos DO Other Provider Active S tart: August 27, 2024 Dr. Wendy Calle MD Other Provider Active Star t: August 27, 2024 Dr. Jin Rosales MD Other Provider Active Star t: August 27, 2024 Team Status: Active Member Role/Relationship Status Dates Dr. Tami Chang MD Primary Care Provider Active Start: August 28, 2024 Juan Nieves MD Emergency Provider Active Star t: August 28, 2024 Dr. Buzz Alford DO Admit Provider Active Start: August 28, 2024 Dr. Buzz Alford DO Other Provider Active Start: August 28, 2024 Dr. Wendy Calle MD Other Provider Active Star t: August 28, 2024 Dr. Jin Rosales MD Attending Provider Active Start: August 28, 2024 Dr. Jin Rosales MD Other Provider Active Star t: August 28, 2024 Dr. Carolyn Hatch DO Other Provider Active Start : August 28, 2024 Dr. Dominik Carlos DO Other Provider Active S tart: August 28, 2024 Team Status: Active Member Role/Relationship Status Dates Dr. Tami Chang MD Primary Care Provider Active Start: August 28, 2024 Juan Nieves MD Emergency Provider Active Star t: August 28, 2024 Dr. Buzz Alford , Admit Provider Active Start: August 28, 2024 Dr. Buzz Alford DO Other Provider Active Start: August 28, 2024 Dr. Wendy Calle MD Other Provider Active Star t: August 28, 2024 Dr. Jin Rosales MD Other Provider Active Star t: August 28, 2024 Dr. Carolyn Hatch , Attending Provider Active S tart: August 28, 2024 Dr. Carolyn Hatch , DO Other Provider Active Start : August 28, 2024 Dr. Dominik Calros , DO Other Provider Active S tart: August 28, 2024 Team Status: Active Member Role/Relationship Status Dates Dr. Tami Chang MD Primary Care Provider Active Start: August 29, 2024 Juan Nieves MD Emergency Provider Active Star t: August 29, 2024 Dr. Buzz Alford , Admit Provider Active Start: August 29, 2024 Dr. Buzz Alford DO Other Provider Active Start: August 29, 2024 Dr. Wendy Calle MD Other Provider Active Star t: August 29, 2024 Dr. Jin Rosales MD Other Provider Active Star t: August 29, 2024 Dr. Carolyn Hatch DO Attending Provider Active S tart: August 29, 2024 Dr. Carolyn Hatch , Other Provider Active Start : August 29, 2024 Dr. Dominik Carlos , Other Provider Active S tart: August 29, 2024 Team Status: Inactive Member Role/Relationship Status Dates Dr. Tami Chang MD Primary Care Provider Active Start: September 11, 2024 End: September 11, 2024 Dr. Tami Chang MD Referring Provider Active Start: September 11, 2024 End: September 11, 2024 Dr. Jin Rosales MD Attending Provider Active Start: September 11, 2024 End: September 11, 2024 Team Status: Inactive Member Role/Relationship Status Dates Dr. Tami Chang MD Primary Care Provider Active Start: September 11, 2024 End: September 11, 2024 Dr. Max Kang MD Attending Provider Active S tart: September 11, 2024 End: September 11, 2024 Team Status: Active Member Role/Relationship Status Dates Dr. Tami Chang MD Primary Care Provider Active Start: September 14, 2024 Dr. Jin Rosales MD Attending Provider Active Start: September 14, 2024 Team Status: Inactive Member Role/Relationship Status Dates Dr. Tami Chang MD Primary Care Provider Active Start: September 24, 2024 End: September 24, 2024 Dr. Tami Chang MD Attending Provider Active Start: September 24, 2024 End: September 24, 2024 Dr. Tami Chang MD Referring Provider Active Start: September 24, 2024 End: September 24, 2024 Team Status: Inactive Member Role/Relationship Status Dates Dr. Tami Chang MD Primary Care Provider Active Start: October 02, 2024 End: October 02, 2024 Dr. Jin Rosales MD Attending Provider Active Start: October 02, 2024 End: October 02, 2024 Dr. Jin Rosales MD Referring Provider Active Start: October 02, 2024 End: October 02, 2024 Team Status: Active Member Role/Relationship Status Dates Dr. Tami Chang MD Primary Care Provider Active Start: October 02, 2024 Dr. Jin Rosales MD Attending Provider Active Start: October 02, 2024 Team Status: Inactive Member Role/Relationship Status Dates Dr. Guerrero Vasquez III, MD Attending Provider Active Start: October 19, 2024 End: October 19, 2024 Dr. Guerrero Vasquez III, MD Referring Provider Active Start: October 19, 2024 End: October 19, 2024 Dr. Eveline Argueta DO Primary Care Provider Active Start: October 19, 2024 End: October 19, 2024 Team Status: Inactive Member Role/Relationship Status Dates Dr. Guerrero Vasquez III, MD Attending Provider Active Start: October 26, 2024 End: October 26, 2024 Dr. Guerrero Vasquez III, MD Referring Provider Active Start: October 26, 2024 End: October 26, 2024 Dr. Eveline Argueta DO Primary Care Provider Active Start: October 26, 2024 End: October 26, 2024 Team Status: Inactive Member Role/Relationship Status Dates Dr. Eveline Argueta DO Primary Care Provider Active Start: November 20, 2024 End: November 20, 2024 Dr. Guerrero Vasquez III, MD Attending Provider Active Start: November 20, 2024 End: November 20, 2024 Dr. Guerrero Vasquez III, MD Referring Provider Active Start: November 20, 2024 End: November 20, 2024 Team Status: Active Member Role/Relationship Status Dates Dr. Eveline Argueta DO Primary Care Provider Active Start: November 28, 2024 Dr. Eveline Argueta DO Attending Provider Active St art: November 28, 2024 Dr. Eveline Argueta DO Referring Provider Active St art: November 28, 2024 Team Status: Inactive Member Role/Relationship Status Dates Dr. Eveline Argueta DO Primary Care Provider Active Start: December 01, 2024 End: December 01, 2024 Dr. Eveline Argueta DO Referring Provider Active St art: December 01, 2024 End: December 01, 2024 TYLER Woo Attending Provider Active Start: December 01, 2024 End: December 01, 2024 Team Status: Inactive Member Role/Relationship Status Dates Dr. Eveline Argueta DO Primary Care Provider Active Start: November 28, 2024 End: November 28, 2024 Dr. Eveline Argueta DO Attending Provider Active St art: November 28, 2024 End: November 28, 2024 Dr. Eveline Argueta DO Referring Provider Active St art: November 28, 2024 End: November 28, 2024 Fork Lift Technician Relationship Specialty Start Date End Date Ramila Bolaños RN Specialty Slat Grader Oncology 10/01/20 Stefania Felix LISW [address] [place] [address] Photographic Platemaker Hematology/Oncology 10/11/23 Domenic Kelley APRN.GREASE REFINER OPERATOR [address] [place], [place] [id number] Referring Hematology/Oncology 02/20/24 Christiano Centeno DO [address] [place], [place] [id number] Hematology/Oncology 07/13/24 Eveline Argueta DO [address] [place] [phone] [facility] 10/24/24 Team Status: Inactive Member Role/Relationship Status Dates Dr. Eveline Argueta DO Primary Care Provider Active Start: December 03, 2024 End: December 03, 2024 Dr. Jin Rosales MD Attending Provider Active Start: December 03, 2024 End: December 03, 2024 Fork Lift Technician Relationship Specialty Start Date End Date Ramila Bolaños RN Specialty Slat Grader Oncology 10/01/20 Stefania Felix LISW [address] [place] [address] Photographic Platemaker Hematology/Oncology 10/11/23 Domenic Kelley, DUTY MANAGER.GREASE REFINER OPERATOR [address] [place] [address] Referring Hematology/Oncology 02/20/24 Christiano Centeno DO [address] [place] [address] Hematology/Oncology 07/13/24 Eveline Argueta DO [address] [place] [phone] [facility] 10/24/24 Fork Lift Technician Relationship Specialty Start Date End Date Ramila Bolaños RN Specialty Slat Grader Oncology 10/01/20 Stefania Felix LISW [address] [place] [address] Photographic Platemaker Hematology/Oncology 10/11/23 Domenic Kelley, DUTY MANAGER.GREASE REFINER OPERATOR [address] [place] [address] Referring Hematology/Oncology 02/20/24 Christiano Centeno DO [address] [place] [address] Hematology/Oncology 07/13/24 Eveline Argueta DO [address] [place] [phone] [facility] 10/24/24 Fork Lift Technician Relationship Specialty Start Date End Date Ramila Bolaños RN Specialty Slat Grader Oncology 10/01/20 Stefania Felix LISW [address] [place] [address] Photographic Platemaker Hematology/Oncology 10/11/23 Domenic Kelley, ERIC.GREASE REFINER OPERATOR [address] [place] [address] Referring Hematology/Oncology 02/20/24 Christiano Centeno DO [address] [place] [address] Hematology/Oncology 07/13/24 Eveline Argueta DO [address] [place] [phone] [facility] 10/24/24 Fork Lift Technician Relationship Specialty Start Date End Date Ramila Bolaños RN Specialty Slat Grader Oncology 10/01/20 Stefania Felix LISW [address] [place] [address] Photographic Platemaker Hematology/Oncology 10/11/23 Domenic Kelley, DUTY MANAGER.GREASE REFINER OPERATOR [address] [place] [address] Referring Hematology/Oncology 02/20/24 Christiano Centeno DO [address] [place] [address] Hematology/Oncology 07/13/24 Eveline Argueta DO [address] [place] [phone] [facility] 10/24/24 Fork Lift Technician Relationship Specialty Start Date End Date Ramila Bolaños RN Specialty Slat Grader Oncology 10/01/20 Stefania Felix LISW [address] [place] [address] Photographic Platemaker Hematology/Oncology 10/11/23 Domenic Kelley, DUTY MANAGER.GREASE REFINER OPERATOR [address] [place] [address] Referring Hematology/Oncology 02/20/24 Christiano Centeno DO [address] [place] [address] Hematology/Oncology 07/13/24 Eveline Argueta DO [address] [place] [phone] [facility] 10/24/24 Fork Lift Technician Relationship Specialty Start Date End Date Ramila Bolaños RN Specialty Slat Grader Oncology 10/01/20 Stefania Felix LISW [address] [place] [address] Photographic Platemaker Hematology/Oncology 10/11/23 Domenic Kelley, DUTY MANAGER.GREASE REFINER OPERATOR [address] [place] [address] Referring Hematology/Oncology 02/20/24 Christiano Centeno DO [address] [place] [address] Hematology/Oncology 07/13/24 Eveline Argueta DO [address] [place] [phone] Family Medicine 10/24/24 Fork Lift Technician Relationship Specialty Start Date End Date Ramila Bolaños RN Specialty Slat Grader Oncology 10/01/20 Stefania Felix LISW [address] [place] [address] Photographic Platemaker Hematology/Oncology 10/11/23 Domenic Kelley, DUTY MANAGER.GREASE REFINER OPERATOR [address] [place] [address] Referring Hematology/Oncology 02/20/24 Christiano Centeno DO [address] [place] [address] Hematology/Oncology 07/13/24 Eveline Argueta DO [address] [place] [phone] Family Medicine 10/24/24 Fork Lift Technician Relationship Specialty Start Date End Date Ramila Bolaños RN Specialty Slat Grader Oncology 10/01/20 Stefania Felix LISW [address] [place] [address] Photographic Platemaker Hematology/Oncology 10/11/23 Domenic Kelley, DUTY MANAGER.GREASE REFINER OPERATOR [address] [place] [address] Referring Hematology/Oncology 02/20/24 Christiano Centeno DO [address] [place] [address] Hematology/Oncology 07/13/24 Eveline Argueta DO [address] [place] [phone] Family Medicine 10/24/24 Team Status: Inactive Member Role/Relationship Status Dates Dr. Tami Chang MD Primary Care Provider Active Start: September 24, 2024 End: September 24, 2024 Dr. Tami Chang MD Attending Provider Active Start: September 24, 2024 End: September 24, 2024 Dr. Tami Chang MD Referring Provider Active Start: September 24, 2024 End: September 24, 2024 Team Status: Inactive Member Role/Relationship Status Dates Dr. Tami Chang MD Primary Care Provider Active Start: October 02, 2024 End: October 02, 2024 Dr. Jin Rosales MD Attending Provider Active Start: October 02, 2024 End: October 02, 2024 Dr. Jin Rosales MD Referring Provider Active Start: October 02, 2024 End: October 02, 2024 Team Status: Active Member Role/Relationship Status Dates Dr. Tami Chang MD Primary Care Provider Active Start: October 02, 2024 Dr. Jin Rosales MD Attending Provider Active Start: October 02, 2024 Team Status: Inactive Member Role/Relationship Status Dates Dr. Guerrero Vasquez III, MD Attending Provider Active Start: October 19, 2024 End: October 19, 2024 Dr. Guerrero Vasquez III, MD Referring Provider Active Start: October 19, 2024 End: October 19, 2024 Dr. Eveline Argueta DO Primary Care Provider Active Start: October 19, 2024 End: October 19, 2024 Team Status: Inactive Member Role/Relationship Status Dates Dr. Guerrero Vasquez III, MD Attending Provider Active Start: October 26, 2024 End: October 26, 2024 Dr. Guerrero Vasquez III, MD Referring Provider Active Start: October 26, 2024 End: October 26, 2024 Dr. Eveline Argueta DO Primary Care Provider Active Start: October 26, 2024 End: October 26, 2024 Team Status: Inactive Member Role/Relationship Status Dates Dr. Eveline Argueta DO Primary Care Provider Active Start: November 20, 2024 End: November 20, 2024 Dr. Guerrero Vasquez III, MD Attending Provider Active Start: November 20, 2024 End: November 20, 2024 Dr. Guerrero Vasquez III, MD Referring Provider Active Start: November 20, 2024 End: November 20, 2024 Team Status: Inactive Member Role/Relationship Status Dates Dr. Eveline Argueta DO Primary Care Provider Active Start: November 28, 2024 End: November 28, 2024 Dr. Eveline Argueta DO Attending Provider Active St art: November 28, 2024 End: November 28, 2024 Dr. Eveline Argueta DO Referring Provider Active St art: November 28, 2024 End: November 28, 2024 Team Status: Inactive Member Role/Relationship Status Dates Dr. Eveline Argueta DO Primary Care Provider Active Start: December 01, 2024 End: December 01, 2024 Dr. Evelien Argueta DO Referring Provider Active St art: December 01, 2024 End: December 01, 2024 TYLER Woo Attending Provider Active Start: December 01, 2024 End: December 01, 2024 Team Status: Inactive Member Role/Relationship Status Dates Dr. Eveline Argueta DO Primary Care Provider Active Start: December 03, 2024 End: December 03, 2024 Dr. Jin Rosales MD Attending Provider Active Start: December 03, 2024 End: December 03, 2024 Team Status: Inactive Member Role/Relationship Status Dates Dr. Eveline Argueta DO Primary Care Provider Active Start: December 04, 2024 Dr. Kira Gray MD Attending Provider Active Start: December 04, 2024 Team Status: Inactive Member Role/Relationship Status Dates Dr. Eveline Argueta DO Primary Care Provider Active Start: January 11, 2025 End: January 11, 2025 Dr. Eveline Argueta DO Attending Provider Active St art: January 11, 2025 End: January 11, 2025 Dr. Eveline Argueta DO Referring Provider Active St art: January 11, 2025 End: January 11, 2025 Fork Lift Technician Relationship Specialty Start Date End Date Ramila Bolaños RN Specialty Slat Grader Oncology 10/01/20 Stefania Felix LISW [address] [place] [address] Photographic Platemaker Hematology/Oncology 10/11/23 Domenic Kelley APRN.GREASE REFINER OPERATOR [address] [place] [address] Referring Hematology/Oncology 02/20/24 Christiano Centeno DO [address] [place] [address] Hematology/Oncology 07/13/24 Eveline Argueta DO [address] [place] [phone] Family Medicine 10/24/24 Fork Lift Technician Relationship Specialty Start Date End Date Eveline Argueta DO [address] [place], [place] [phone] PCP - General Family Medicine 01/28/25 Ramila Bolaños RN Specialty Slat Grader Oncology 10/01/20 Stefania Felix LISW [address] [place] [address] Photographic Platemaker Hematology/Oncology 10/11/23 Domenic Kelley APRN.GREASE REFINER OPERATOR [address] [place] [address] Referring Hematology/Oncology 02/20/24 Christiano Centeno DO [address] [place] [address] Hematology/Oncology 07/13/24 Eveline Argueta DO [address] [place] [phone] Family Medicine 10/24/24 Fork Lift Technician Relationship Specialty Start Date End Date Eveline Argueta DO [address] [place], [place] [phone] PCP - General Family Medicine 01/28/25 Ramila Bolaños RN Specialty Slat Grader Oncology 10/01/20 Stefania Felix LISW [address] [place] [address] Photographic Platemaker Hematology/Oncology 10/11/23 Domenic Kelley, ERIC.GREASE REFINER OPERATOR [address] [place] [address] Referring Hematology/Oncology 02/20/24 Christiano Centeno DO [address] [place] [address] Hematology/Oncology 07/13/24 Eveline Argueta DO [address] [place] [phone] Family Medicine 10/24/24 Fork Lift Technician Relationship Specialty Start Date End Date Eveline Argueta DO [address] [place], [place] [address] PCP - General Family Medicine 01/28/25 Ramila Bolaños, CRISTINA Specialty Slat Grader Oncology 10/01/20 Stefania Felix LISW [address] [place] [address] Photographic Platemaker Hematology/Oncology 10/11/23 Domenic Kelley, ERIC.GREASE REFINER OPERATOR [address] [place] [address] Referring Hematology/Oncology 02/20/24 Christiano Centeno DO [address] [place] [address] Hematology/Oncology 07/13/24 Eveline Argueta DO [address] [place] [phone] Family Medicine 10/24/24 Fork Lift Technician Relationship Specialty Start Date End Date EllieEveline DO [address] [place] [address] PCP - General Family Medicine 01/28/25 Ramila Bolaños RN Specialty Slat Grader Oncology 10/01/20 Stefania Felix LISW [address] [place] [address] Photographic Platemaker Hematology/Oncology 10/11/23 Domenic Kelley, ERCI.GREASE REFINER OPERATOR [address] [place] [address] Referring Hematology/Oncology 02/20/24 Christiano Centeno DO [address] [place] [address] Hematology/Oncology 07/13/24 Eveline Argueta DO [address] [place] [phone] Family Medicine 10/24/24 Fork Lift Technician Relationship Specialty Start Date End Date Eveline Argueta DO [address] [place] [address] PCP - General Family Medicine 01/28/25 Ramila Bolaños RN Specialty Slat Grader Oncology 10/01/20 Stefania Felix LISW [address] [place] [address] Photographic Platemaker Hematology/Oncology 10/11/23 Domenic Kelley, DUTY MANAGER.GREASE REFINER OPERATOR [address] [place] [address] Referring Hematology/Oncology 02/20/24 Christiano Centeno DO [address] [place] [address] Hematology/Oncology 07/13/24 Eveline Argueta DO [address] [place] [phone] Family Medicine 10/24/24 Fork Lift Technician Relationship Specialty Start Date End Date Eveline Argueta DO [address] [place], [place] [phone] PCP - General Family Medicine 01/28/25 Ramila Bolaños RN Specialty Slat Grader Oncology 10/01/20 Stefania Felix LISW [address] [place] [address] Photographic Platemaker Hematology/Oncology 10/11/23 Domenic Kelley APRN.GREASE REFINER OPERATOR [address] [place] [address] Referring Hematology/Oncology 02/20/24 Christiano Centeno DO [address] [place] [address] Hematology/Oncology 07/13/24 Eveline Argueta DO [address] [place] [phone] Family Medicine 10/24/24 Team Status: Active Member Role/Relationship Status Dates Dr. Eveline Argueta DO Primary care physician Active Team Status: Inactive Member Role/Relationship Status Dates Dr. Eveline Argueta DO Primary care physician Active Start: November 20, 2024 End: November 20, 2024 Dr. Guerrero Vasquez III, MD Attending physician Active Start: November 20, 2024 End: November 20, 2024 Dr. Guerrero Vasquez III, MD Referring Provider Active Start: November 20, 2024 End: November 20, 2024 Team Status: Inactive Member Role/Relationship Status Dates Dr. Eveline Argueta DO Primary care physician Active Start: November 28, 2024 End: November 28, 2024 Dr. Eveline Argueta DO Attending physician Active S tart: November 28, 2024 End: November 28, 2024 Dr. Eveline Argueta DO Referring Provider Active St art: November 28, 2024 End: November 28, 2024 Team Status: Inactive Member Role/Relationship Status Dates Dr. Eveline Argueta DO Primary care physician Active Start: December 01, 2024 End: December 01, 2024 Dr. Eveline Argueta DO Referring Provider Active St art: December 01, 2024 End: December 01, 2024 ANOOP WooC Attending physician Active Start: December 01, 2024 End: December 01, 2024 Team Status: Inactive Member Role/Relationship Status Dates Dr. Eveline Argueta DO Primary care physician Active Start: December 03, 2024 End: December 03, 2024 Dr. Jin Rosales MD Attending physician Active Start: December 03, 2024 End: December 03, 2024 Team Status: Inactive Member Role/Relationship Status Dates Dr. Eveline Argueta DO Primary care physician Active Start: December 04, 2024 Dr. Kira Gray MD Attending physician Active Start: December 04, 2024 Team Status: Inactive Member Role/Relationship Status Dates Dr. Eveline Argueta DO Primary care physician Active Start: January 11, 2025 End: January 11, 2025 Dr. Eveline Argueta DO Attending physician Active S tart: January 11, 2025 End: January 11, 2025 Dr. Eveline Argueta DO Referring Provider Active St art: January 11, 2025 End: January 11, 2025 Team Status: Inactive Member Role/Relationship Status Dates Dr. Eveline Argueta DO Primary care physician Active Start: February 28, 2025 End: February 28, 2025 TYLER Espinosa Attending physician Active S tart: February 28, 2025 End: February 28, 2025 Felicia Gray , MOTORBOAT MECHANIC INBOARD-C Referring Provider Active St art: February 28, 2025 End: February 28, 2025 Team Status: Inactive Member Role/Relationship Status Dates Dr. Eveline Argueta DO Primary care physician Active Start: December 03, 2024 End: December 03, 2024 Dr. Jin Rosales MD Attending physician Active Start: December 03, 2024 End: December 03, 2024 Team Status: Inactive Member Role/Relationship Status Dates Dr. Eveline Argueta DO Primary care physician Active Start: December 04, 2024 Dr. Kira Gray MD Attending physician Active Start: December 04, 2024 Team Status: Inactive Member Role/Relationship Status Dates Dr. Eveline Argueta DO Primary care physician Active Start: January 11, 2025 End: January 11, 2025 Dr. Eveline Argueta DO Attending physician Active S tart: January 11, 2025 End: January 11, 2025 Dr. Eveline Argueta DO Referring Provider Active St art: January 11, 2025 End: January 11, 2025 Team Status: Inactive Member Role/Relationship Status Dates Dr. Eveline Argueta DO Primary care physician Active Start: February 28, 2025 End: February 28, 2025 TYLER Espinosa Attending physician Active S tart: February 28, 2025 End: February 28, 2025 TYLER Espinosa Referring Provider Active St art: February 28, 2025 End: February 28, 2025 Team Status: Inactive Member Role/Relationship Status Dates Dr. Eveline Argueta DO Primary care physician Active Start: March 19, 2025 End: March 19, 2025 Dr. Eveline Argueta DO Referring Provider Active St art: March 19, 2025 End: March 19, 2025 ZARINA Kent Attending physician Active Start: March 19, 2025 End: March 19, 2025 Goals (unrecognized section and content) Goals may be documented in a n alternate sectionGoals may be documented in an alternate sectionGoals may be documented in an alternate sectionGoals may be documented in an alternate sectionGoals may be documented in an alternate sectionGoals may be documented in an alternate sectionGoals may be documented in an alternate sectionGoals may be documented in an alternate sectionGoals may be documented in an alternate sectionGoals may be documented in an alternate sectionGoals may be documented in an alternate section Inactive Administered Medications - up to 3 most recent administrations Administered Medications (un recognized section and content) Medication Order MAR Action Action Date Dose Rate Site trastuzumab-anns 539.2 mg in NaCl 0.9% 300.6762 mL ([facility] 539.2 mg (8 mg/kg/dose 67.4 kg Treatment plan Recorded weight), INTRAVENOUS, Administer over 30 Minutes, ONCE, 1 dose, On Tue07/22/23 at 1400, Approx Total Volume - IMMEDIATE USE at room temp - DO NOT SHAKE Refrigerate New Bag/Syringe/Bottle 07/22/2023 2:14 PM EST 539.2 mg Inactive Administered Medications - up to 3 most recent administrations Medication Order MAR Action Action Date Dose Rate Site trastuzumab-anns 404.4 mg in NaCl 0.9% 294.2494 mL ([facility]) 404.4 mg (6 mg/kg/dose 67.4 kg Treatment plan Recorded weight), INTRAVENOUS, Administer over 30 Minutes, ONCE, 1 dose, On Tue08/12/23 at 1030, - DO NOT SHAKE exp immediate use (room temp) Refrigerate New Bag/Syringe/Bottle 08/12/2023 10:28 AM EST 404.4 mg Inactive Administered Medications - up to 3 most recent administrations Medication Order MAR Action Action Date Dose Rate Site trastuzumab-anns 404.4 mg in NaCl 0.9% 294.2494 mL ([facility]) 404.4 mg (6 mg/kg/dose 67.4 kg Treatment plan Recorded weight), INTRAVENOUS, Administer over 30 Minutes, ONCE, 1 dose, On Tue09/23/23 at 1400, - DO NOT SHAKE exp immediate use (room temp) Refrigerate New Bag/Syringe/Bottle 09/23/2023 1:50 PM EDT 404.4 mg FOR RECORDS PERTAINING TO PATIENTS WHO ARE OR HAVE BEEN ENROLLED IN A CHEMICAL DEPENDENCY/SUBSTANCEABUSE PROGRAM, SOME INFORMATION MAY BE OMITTED. This clinical summary was aggregated from multiple sources. Caution should be exercised in using it in the provision of clinical care. This summary normalizes information from multiple sources, and as a consequence, information in this document may materially change the coding, format and clinical context of patient data. In addition, data may be omitted in some cases. CLINICAL DECISIONS SHOULD BE BASED ON THE PRIMARY CLINICAL RECORDS. [employer] [facility] provides no warranty or guarantee of the accuracy or completeness of information in this document.
[2025-04-05 07:12] VITALS: BP 150/67; PULSE 80; RESP 18; TEMP 36.3; O2SAT 99; BMI 27.1
[2025-04-05] MEDS: Lactated Ringers 1,000 ML 15 ML IV (07:23)
--- NOTE | 2025-04-05 07:31 | PCM.HP.STD ---
HPI - General General Date of Admission: 04/05/25 Date of Service: 04/05/25 Chief Complaint: abdominal pain HPI Narrative ARIEL BISHOP, is a 80 F who presents [ chief Complaint: Epigastric/left upper quadrant pain Past medical history of breast cancer with metastases to the liver. EGD 05.23.24 - Normal duodenal bulb. - Multiple gastric polyps. Resected and retrieved. - The examination was otherwise normal. - No gross lesions in the entire esophagus. Biopsied. Colonoscopy 05.23.24 - One 4 mm polyp in the sigmoid colon, removed with a cold biopsy forceps. Resected and retrieved. - One 15 mm polyp in the cecum, removed with a hot snare. Resected and retrieved. - The examination was otherwise normal on direct and retroflexion views. Patient referred from primary care provider for epigastric/left upper quadrant pain since October 2024. Patient notes that it seemed to have started while she was taking doxycycline for 3 months due to a spinal infection. She has pain about 20 minutes after eating anything. Certain foods are worse like spicy foods and alcohol. The pain may last up to 2 hours and she will feel very bloated and uncomfortable during. Moving to different positions can relieve her pain somewhat. She takes Tums for the pain. She has been on Nexium for about 2 years but has been on other PPIs over the past 20 years. She notes in the past she has been diagnosed with Nguyen's esophagus but last EGD did not show this. 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 Epigastric abdominal pain Liver metastasis 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 Wears dentures Sleep apnea History of TIA (transient ischemic attack) History of thyroid disease Back pain Neck pain Severe headache Stomach ulcer History of cancer Arthritis History of hypertension Home Medications Medication Instructions Recorded Last Taken Type fluoxetine 40 mg capsule 40 mg PO DAILY 06/16/17 04/04/25 History lisinopril 20 mg tablet 20 mg PO DAILY 09/25/20 04/05/25 History levothyroxine 125 mcg tablet 112 mcg PO DAILY 30 days #27 tabs 06/11/21 04/04/25 History hydrocodone-acetaminophen 5-325mg 1 tab PO Q6H PRN pain 07/16/22 08/25/24 History 5mg-325mg letrozole 2.5 mg tablet 2.5 mg PO DAILY 02/16/24 04/05/25 History amlodipine 5 mg tablet 5 mg PO QHS 04/30/24 04/04/25 History clopidogrel 75 mg tablet 75 mg PO DAILY 04/30/24 03/29/25 History esomeprazole magnesium 20 mg 20 mg PO DAILY 04/30/24 04/04/25 History capsule,delayed release (Nexium) liothyronine 5 mcg tablet 5 mcg PO DAILY 05/21/24 04/05/25 History zolpidem 10 mg tablet 10 mg PO QHS 05/21/24 04/04/25 History multivitamin (Daily Multi-Vitamin 1 tab PO DAILY 08/25/24 04/04/25 History tablet) baclofen 5 mg tablet 5 mg PO TID PRN pain 09/11/24 04/02/25 History famotidine 40 mg tablet 40 mg PO QDAY #30 tabs 03/19/25 04/04/25 Rx calcium 600 mg (as 2 cap PO DAILY 04/03/25 04/04/25 History carbonate)-vitamin D3 5 mcg (200 unit) capsule (Calcium 600 + D(3)) trastuzumab 150 mg intravenous 150 mg IV .Q3W 04/03/25 Unknown History solution (Herceptin) Allergy/AdvReac Type Severity Reaction Status Date / Time shellfish derived Allergy Severe throat Verified 04/05/25 07:09 swelling adhesive tape AdvReac Rash Verified 04/05/25 07:09 Family History Mother Colon cancer passed from recurrence Thyroid disorder Father Hypertension CVA (cerebral vascular accident) Sister Breast cancer, Onset Age: 87 Aunt Colon cancer paternal Surgical History History of left mastectomy History of lumpectomy History of back surgery History of thyroid surgery Social History household members: spouse Smoking Status: Former smoker how long ago did patient quit smoking: >50 years ago; off and on for 2 years, socially only alcohol intake: current alcohol intake frequency: 0-2 drinks per day Alcohol type: wine details: socially substance use type: does not use additional social history: denies vaping, denies marijuana, denies edibles, denies aspirin and ibuprofen use ROS Constitutional Constitutional: Denies fatigue, fever(s), poor appetite, weight gain or weight loss Gastrointestinal Gastrointestinal: Denies belching, bloating, change in bowel habits, change in stool character, chewing difficulty, coffee ground emesis, constipation, cramping, diarrhea, dyspepsia, dysphagia, early satiety, excessive flatus, fecal incontinence, heartburn, hematemesis, hematochezia, hemorrhoids, loose stools, melena, nausea, odynophagia, rectal bleeding, tenesmus, vomiting or weight changes Vital Signs Vital Signs Vital Signs: 04/05/25 07:12 04/05/25 07:12 Temperature 97.3 F L Temperature Source Temporal Pulse Rate 80 Respiratory Rate 18 Respiratory Pattern Normal Blood Pressure 150/67 H Blood Pressure Mean 94 Blood Pressure Source Monitor Blood Pressure Position Semi-Fowlers Blood Pressure Location Right Arm Pulse Ox 99 Oxygen Delivery Method Room Air Weight Weight: 143 lb 4.807 oz Body Mass Index (BMI) 27.1 Physical Exam Const alert, oriented x3, no apparent distress and healthy appearing General Appearance: cooperative GI normal to inspection, nondistended, normoactive bowel sounds, soft to palpation, non-tender and non-distended Percussion: normal to percussion Rectal Exam: deferred Assessment & Plan Assessment/Plan (1) Epigastric abdominal pain: (2) History of Nguyen's esophagus: PLAN: Assessment and Plan Assessment and Plan (1) History of Nguyen's esophagus: Status: Acute Plan: Ariel is a 79-year-old female patient here today for evaluation of left upper quadrant/epigastric pain since October 2024. Pain is most typically 20 minutes after oral intake may last up to 2 hours. Pain is somewhat relieved with certain body positions and Tums. She takes Nexium 20 mg daily. Symptoms started after being on doxycycline for 3 months due to a spinal infection. Last EGD was in May 2024 which showed chronic gastritis and esophagitis. Colonoscopy from May 2024 with a large tubular adenoma with recommendation for repeat in 1 year. Due to the worsening of her symptoms, I recommended repeating EGD at this time to rule out worsening gastritis or ulcer. I also advised she repeat the colonoscopy as well since Dr. Castañeda recommendation was to repeat in 1 year however she does decline this at this time. In the interim, she will continue Nexium 20 mg daily and add famotidine 40 mg daily. Due to patient being on Plavix we will hold off on increasing the PPI. Pending results we may consider gastric emptying study. - Repeat EGD - Recommended repeating colonoscopy but she declined - Continue Nexium - Start famotidine 40 mg daily - Consider gastric emptying study - Follow-up after endoscopy Note: Floqq speech recognition wellness health coach software was used to create portions of this document. Sound-alike and misspelled words, as well as other wellness health coach errors may be contained in the documentation. (2) Epigastric abdominal pain: Status: Acute Medications: New famotidine 40 mg PO QDAY 30 tabs 2RF ]
--- NOTE | 2025-04-05 08:00 | EGD_PTH ---
PATIENT: ARIEL BISHOP LOC: EN U#:[id number] AGE/SX: 80/F ROOM: RE04/05/[address]: Dr. Gurinder Messina DO : 1945 BED: DIS: 04/05/2025 SPEC #: [id number] RECD: 04/05/25 10:07 STATUS: MONICA REAmrita #: [id number] DARCI: 04/05/25 08:[address]: Gurinder Messina DEPT: SURGICAL PATHOLOGY RECD BY: Dustin Flores ENTERED: 04/05/25 14:01 SP TYPE: EGD BIOPSY YARI DR: Dr. Kala Argueta DO Tissues: A - Gastric mucous membrane B - Gastric mucous membrane Procedures: Immunohistochemical Stains Surgery Specimen Level IV HEADER OPERATION: EGD with biopsies PRE-OP DIAGNOSIS: Abdominal pain TISSUE SUBMITTED: A- Gastric antrum biopsy, B- Gastric body biopsy MICROSCOPIC DIAGNOSIS A. Stomach, gastric antrum, biopsies: - Oxyntic mucosa with slight chronic inflammation - An immunohistochemical stain for Helicobacter pylori is negative B. Stomach, gastric body: * Oxyntic mucosa with slight chronic inflammation * An immunohistochemical stain for Helicobacter pylori is negative MICROSCOPIC DESCRIPTION Slides are reviewed. GROSS DESCRIPTION A. Received in fixative is one container labeled with the patient's name and designated "Gastric antrum biopsy." The specimen consists of three irregular fragments of hutchinson tissue that measure 0.1 to 0.6 cm. The specimen is totally submitted in one cassette. B. Received in fixative is one container labeled with the patient's name and designated "Gastric body biopsy." The specimen consists of two irregular fragments of hutchinson tissue that measure 0.3 and 0.5 cm. The specimen is totally submitted in one cassette. [place] 04/05/2025 CPT:[id number]
[2025-04-05 08:55] VITALS: BP 133/101; BP 150/67; PULSE 94; PULSE 96; RESP 16; RESP 18; TEMP 36.1; TEMP 36.2; O2SAT 95
--- NOTE | 2025-04-05 08:55 | PCM.POST.ANE ---
Anesthesia: Postop Eval I Current Vital Signs Temperature: 97.1 F Pulse Rate: 94 Blood Pressure: 133/101 Respiratory Rate: 18 Pulse Ox: 95 Assessment Airway patent: Yes Spontaneous unlabored respirations: Yes nausea: No Vomiting: No Anesthesia Complication: No Fluid Hydration Crystalloid volume administer (ml): 300 Total IV fluid infused: 300 Progress Note Anesthesia document: Postop Eval 1 completed: Yes
[2025-04-05 09:00] VITALS: BP 141/80; BP 150/67; PULSE 76; RESP 16; O2SAT 98
--- NOTE | 2025-04-05 09:03 | OP.EGD_ITS ---
Patient Name: Danette Dang Procedure Date: 04/05/2025 8:43 AM Date of : 1945 Age: 80 Procedure: Upper GI endoscopy Indications: Epigastric abdominal pain Providers: Gurinder Messina DO Referring MD: Gurinder Messina DO Medicines: Monitored Anesthesia Care Patient Profile: This is an 80 year old female. Refer to note in patient chart for documentation of history and physical. Patient has symptoms. Complications: No immediate complications. Procedure: Pre-Anesthesia Assessment: - Prior to the procedure, a History and Physical was performed, and patient medications and allergies were reviewed. The patient is competent. The risks and benefits of the procedure and the sedation options and risks were discussed with the patient. All questions were answered and informed consent was obtained. Patient identification and proposed procedure were verified by the physician in the pre-procedure area. Mental Status Examination: alert and oriented. Airway Examination: normal oropharyngeal airway and neck mobility. Respiratory Examination: clear to auscultation. CV Examination: normal. Prophylactic Antibiotics: The patient does not require prophylactic antibiotics. Prior Anticoagulants: The patient has taken no anticoagulant or antiplatelet agents. ASA Grade Assessment: II - A patient with mild systemic disease. After reviewing the risks and benefits, the patient was deemed in satisfactory condition to undergo the procedure. The anesthesia plan was to use monitored anesthesia care (MAC). Immediately prior to administration of medications, the patient was re-assessed for adequacy to receive sedatives. The heart rate, respiratory rate, oxygen saturations, blood pressure, adequacy of pulmonary ventilation, and response to care were monitored throughout the procedure. The physical status of the patient was re-assessed after the procedure. After obtaining informed consent, the endoscope was passed under direct vision. Throughout the procedure, the patient's blood pressure, pulse, and oxygen saturations were monitored continuously. The Endoscope was introduced through the mouth, and advanced to the fourth part of the duodenum. Small bowel enteroscopy was deemed necessary. The upper GI endoscopy was accomplished without difficulty. The patient tolerated the procedure well. Scope In: 8:46:32 AM Scope Out: 8:49:46 AM Total Procedure Duration Time 0 hours 3 minutes 14 seconds Findings: The nasopharynx was normal. The examined esophagus was normal. A large hiatal hernia was present. Patchy mildly erythematous mucosa without bleeding was found in the gastric body and in the gastric antrum. Biopsies were taken with a cold forceps for histology. Biopsies were taken with a cold forceps for Helicobacter pylori testing. Verification of patient identification for the specimen was done. Estimated blood loss was minimal. No gross lesions were noted in the entire examined duodenum. Impression: - Normal nasopharynx. - Normal esophagus. - Large hiatal hernia. - Erythematous mucosa in the gastric body and antrum. Biopsied. - No gross lesions in the entire examined duodenum. Recommendation: - Discharge patient to home. - Resume previous diet. - Continue present medications. - Await pathology results. Procedure Code(s): --- Professional --- 82332, Small intestinal endoscopy, enteroscopy beyond second portion of duodenum, not including ileum; with biopsy, single or multiple CPT copyright 2021 [employer]. All rights reserved. The codes documented in this report are preliminary and upon oyster cultivator review may be revised to meet current compliance requirements. Gurinder Messina DO 04/05/2025 9:02:43 AM This report has been signed electronically. Number of Addenda: 0 Note Initiated On: 04/05/2025 8:43 AM
--- NOTE | 2025-04-05 09:03 | OP.PROVAT_ITS ---
04/05/2025 Kala Argueta [address] [place] [address] Re : Upper GI endoscopy procedure for [facility] Dear Dr. Argueta This procedure was performed on Saturday, April 05, 2025. My impressions and recommendations are as follows: Impressions : - Normal nasopharynx. - Normal esophagus. - Large hiatal hernia. - Erythematous mucosa in the gastric body and antrum. Biopsied. - No gross lesions in the entire examined duodenum. Recommendations : - Discharge patient to home. - Resume previous diet. - Continue present medications. - Await pathology results. My findings are described in the full procedure note, which is enclosed. If I can be of further assistance, please feel free to contact me at . Sincerely, Gurinder Messina, 04/05/2025 9:02:43 AM This report has been signed electronically.
[2025-04-05 09:05] VITALS: BP 137/86; BP 150/67; PULSE 72; RESP 16; TEMP 36.1; O2SAT 100
--- NOTE | 2025-04-05 09:24 | POSTOPAN2_ITS ---
Anesthesia Postop Eval I Sum Postop Eval Completion status Anesthesia document: Postop Eval 1 completed: Yes Anesthesia Postop Eval I Summary Anesthesia Postop Eval I Summary: Anesthesia Postop Eval I: Assessment Summary Airway patent Yes 04/05/25 08:55 INFORMAL [email or web address] Spontaneous unlabored Yes 04/05/25 08:55 INFORMAL WAITER/[email or web address] respirations Mental status nausea No 04/05/25 08:55 INFORMAL WAITER/[email or web address] Vomiting No 04/05/25 08:55 INFORMAL [email or web address] Anesthesia Postop Eval I: Fluid Summary Crystalloid volume administer 300 04/05/25 08:55 INFORMAL WAITER/[email or web address] (ml) Colloids volume administered ( ml) Blood Product volume administered (ml) Total IV fluid infused 300 04/05/25 08:55 INFORMAL [email or web address] Anesthesia Postop Eval I: Summary Notes Anesthesia Complication No 04/05/25 08:55 INFORMAL [email or web address] Anesthesia Complication Comment: Post-operative progress note Anesthesia: Postop Eval II Evaluation Mental status: Awake Pain Level: 0 nausea: No Vomiting: No
--- NOTE | 2025-04-05 09:24 | PCM.POSTANE2 ---
Anesthesia Postop Eval I Sum Postop Eval Completion status Anesthesia document: Postop Eval 1 completed: Yes Anesthesia Postop Eval I Summary Anesthesia Postop Eval I Summary: Anesthesia Postop Eval I: Assessment Summary Airway patent Yes 04/05/25 08:55 CEREAL [email or web address] Spontaneous unlabored Yes 04/05/25 08:55 CEREAL POPPER.CSIR respirations Mental status nausea No 04/05/25 08:55 CEREAL POPPER.CSIR Vomiting No 04/05/25 08:55 CEREAL POPPER.CSIR Anesthesia Postop Eval I: Fluid Summary Crystalloid volume administer 300 04/05/25 08:55 CEREAL POPPER.CSIR (ml) Colloids volume administered ( ml) Blood Product volume administered (ml) Total IV fluid infused 300 04/05/25 08:55 CEREAL POPPER.CSIR Anesthesia Postop Eval I: Summary Notes Anesthesia Complication No 04/05/25 08:55 CEREAL POPPER.CSIR Anesthesia Complication Comment: Post-operative progress note Anesthesia: Postop Eval II Evaluation Mental status: Awake Pain Level: 0 nausea: No Vomiting: No
[2025-04-05 09:26] VITALS: BP 150/67
== END 2025-04-05 09:27 | disposition home or self-care (01) ==
LOC: EN 06:56 → AC 06:58
PROVIDERS: PCP Family Medicine; Referring Provider Family Medicine; Visit Provider Internal Medicine Gastroenterology
DX: R10.13 Epigastric pain (principal); I10 Essential (primary) hypertension; Z87.891 Personal history of nicotine dependence; K44.9 Diaphragmatic hernia without obstruction or gangrene; Z85.3 Personal history of malignant neoplasm of breast; Z85.05 Personal history of malignant neoplasm of liver; Z86.73 Personal history of transient ischemic attack (TIA), and cerebral infarction without residual deficits; Z79.899 Other long term (current) drug therapy; F32.A Depression, unspecified; Z79.02 Long term (current) use of antithrombotics/antiplatelets; K21.9 Gastro-esophageal reflux disease without esophagitis; Z90.12 Acquired absence of left breast and nipple; K31.89 Other diseases of stomach and duodenum; Z87.11 Personal history of peptic ulcer disease; K29.50 Unspecified chronic gastritis without bleeding
CPT/HCPCS: 43239; 88305; 88342; J2405